=== PATIENT | female | born 1950 | race Caucasian/White ===

== ENCOUNTER 2020-03-21 07:51 | Outpatient (REF) | payer MEDICARE, BC, SELFPAY ==
--- NOTE | 2020-03-21 | MM_ITS ---
EXAMINATION: MM SCREENING DIGITAL BREAST TOMOSYNTHESIS, BILATERAL CLINICAL INFORMATION: Screening. Asymptomatic. The lifetime risk of breast cancer based on the Tyrer-Cuzick Model is 3%. COMPARISON: Mammography: 07/25/2018, 02/04/2017, 02/25/2015 TECHNIQUE: Digital breast tomosynthesis is performed in both the craniocaudal and mediolateral oblique views along with computer-aided detection (CAD). Synthesized 2D images are generated from the tomosynthesis. FINDINGS: The breasts are heterogeneously dense, which may obscure small masses (ACR BI-RADS breast composition Category c). There are no significant masses, abnormal calcifications, or other abnormalities. The axilla and skin contours are unremarkable. IMPRESSION: No mammographic evidence of malignancy. ASSESSMENT: BI-RADS 1: Negative RECOMMENDATION: Routine annual mammography screening. This patient's information was entered into a reminder system with a target due date for their next mammogram.
== END 2020-03-21 07:52 | disposition home or self-care (01) ==
LOC: HO.MAMMO 07:51
PROVIDERS: PCP Internal Medicine; Visit Provider Internal Medicine
DX: Z12.31 Encounter for screening mammogram for malignant neoplasm of breast (principal)
CPT/HCPCS: 77063; 77067; 78014

== ENCOUNTER 2020-08-23 23:03 | Emergency (ER) | payer MEDICARE, BC, SELFPAY ==
[2020-08-23 23:06] VITALS: BP 196/92; PULSE 70; RESP 16; TEMP 36.4; O2SAT 96; BMI 23.6
--- NOTE | 2020-08-23 23:36 | ED_ITS ---
HPI - General Adult General Chief complaint: General Medical Stated complaint: Hypertension Time Seen by Provider: 08/23/20 23:36 Source: patient Mode of arrival: ambulatory Limitations: no limitations History of Present Illness HPI narrative: Patient's history of MS on Ocrevus infusion every 6 weeks which she been doing this for last 2 1/2 years today when we any came to give her Ocrevus infusion premedicated with methylprednisone 100 mg as usual noticed her blood pressure 200/100 recheck multiple times dropped to 190/96. Patient never had high blood pressure like this before patient denied any other symptoms patient feels fine otherwise no headache no nausea no vomiting no chest pain no palpitations on arrival patient's blood pressure was 196/92 repeat blood pressure was 131/68 patient remained asymptomatic in the ER Related Data Allergies Allergy/AdvReac Type Severity Reaction Status Date / Time codeine [CODEINE] Allergy Unknown HIVES Unverified 03/03/20 15:20 codeine Allergy Unknown Uncoded 06/22/19 00:00 Review of Systems Review of Systems: Constitutional : No Weight loss, No Fever, No Chills ENT/Mouth : No sore throat, No Rhinorrhea Eyes: No Eye Pain, No Swelling Cardiovascular : No Chest Pain, no palpitations Respiratory : No Cough, No Sputum, no shortness of breath Gastrointestinal : no Nausea, No Vomiting, No Diarrhea, No abdominal Pain, no black stools Genitourinary : No Dysuria, No Urinary Frequency Musculoskeletal : No joint pain, No Myalgias, No Joint Swelling Skin : No Skin Lesions, No rash Neuro : No Weakness, No Numbness, No Dizziness, No Headache Psych : No Anxiety/Panic, No Depression Heme/Lymph: No Bruising, No Lymphadenopathy Endocrine : No Polyuria, No Polydipsia All other systems reviewed and are negative [facility] Past Medical History Medical History COPD (chronic obstructive pulmonary disease) GERD (gastroesophageal reflux disease) High cholesterol HTN (hypertension) Immune disorder Multiple sclerosis Surgical History History of heart artery stent Social History Social History Alcohol intake: never Smoking Status: Current every day smoker Smoked in Last 30 Days: Yes Use of substances other than those prescribed or required for medical reasons: No Advance Directives: No Advance Directives Information Provided: No Physical Exam Vital Signs: Vital Signs: Last Vital Signs Temp 98.4 F 08/24/20 00:54 Pulse 60 08/24/20 00:54 Resp 18 08/24/20 00:54 BP 160/52 H 08/24/20 00:54 Pulse Ox 96 08/24/20 00:54 Body Mass Index 23.6 Appearance: Alert. Oriented X3. No acute distress. Eyes: Pupils equal, round and reactive to light. ENT: Pharynx normal. Neck: Normal inspection. Neck supple. CVS: Normal heart rate and rhythm. Pulses normal. Respiratory: No respiratory distress. Breath sounds normal. Abdomen: Soft and nontender. Bowel sounds are present, no mass palpable, no CVA tenderness Skin: Skin warm and dry. Normal skin color. Normal skin turgor. Extremities: No lower extremity edema. No calf tenderness Neuro: Oriented X 3. No motor deficit. No sensory deficit. Medical Decision Making MDM Narrative Medical decision making narrative: Patient with transient hypertension at home in ER patient blood pressure was elevated when she came and after half an hour blood pressure dropped to 131/68 EKG was normal without any LVH findings patient has been taking NSAID for last few days for pain will check her kidney functions and follow-up Patient blood pressure stayed stable in the ER slightly elevated blood pressure on the right side as compared the left side kidney functions normal patient advised to follow-up with primary care doctor Lab Data Result diagrams: 08/23/20 23:49 08/23/20 23:49 Labs: Lab Results 08/23/20 08/23/20 Range/Units 23:49 23:49 WBC 10.1 (4.8-10.8) X10*3/uL RBC 4.44 (4.20-5.50) X10*6/uL Hgb 14.3 (12.0-16.0) g/dl Hct 41.9 (37-47) % MCV 94.4 (80-98) fL MCH 32.2 (27.0-33.0) pg MCHC 34.1 (31.0-35.0) g/dl RDW 12.4 (11.0-16.0) % Plt Count 277 (160-400) X10*3/uL MPV 9.8 (9.4-12.3) fL Immature Gran % (Auto) 0.3 (0.0-0.4) % Neut % (Auto) 73.5 H (45-73) % Lymph % (Auto) 18.8 L (20-40) % Sebastian % (Auto) 5.9 (2-11) % Eos % (Auto) 1.1 (0-4) % Baso % (Auto) 0.4 (0-2) % Lymph # (Auto) 1.9 (1.2-4.9) X10*3/uL Sebastian # (Auto) 0.6 (0.1-1.2) X10*3/uL Eos # (Auto) 0.1 (0.0-0.4) X10*3/uL Baso # (Auto) 0.0 (0.0-0.2) X10*3/uL Abs Immat Gran (auto) 0.03 (0.00-0.03) X10*3/uL Absolute Neuts (auto) 7.4 (2.0-8.3) X10*3/uL Absolute Nucleated RBC 0.000 (0.0-0.012) X10*3/uL Nucleated RBC % (auto) 0.0 (0.0-0.2) /100WBC Sodium 139 (135-145) mmol/L Potassium 3.2 L (3.3-5.1) mmol/L Chloride 101 (96-108) mmol/L Carbon Dioxide 27 (22-29) mmol/L Anion Gap 14 (12-20) BUN 9 (9-16) mg/dL Creatinine 0.73 (0.5-1.4) mg/dL Estim Creat Clear Calc 55.6 Estimated GFR > 60 Random Glucose 116 H (60-115) mg/dL Calcium 8.9 (8.4-10.2) mg/dL ECG Data Attestation: I personally reviewed and interpreted this ECG as follows: Interpretation: Normal sinus rhythm heart rate 65 beats per minute normal intervals normal axis no acute ischemic changes impression normal EKG Discharge Plan Discharge Clinical Impression: White coat syndrome with high blood pressure but without hypertension Patient Disposition: Home, Self-Care Instructions: Hypertension (ED) Additional Instructions: You had transient hypertension likely secondary to stress/white coat hypertension yet repeated blood pressure was normal. Follow with primary care doctor. Check blood pressure daily which should be less than 140/90
[2020-08-23 23:42] VITALS: BP 148/68; PULSE 65; RESP 18; TEMP 36.8; O2SAT 96
[2020-08-23 23:43] VITALS: BP 171/72
--- NOTE | 2020-08-23 23:44 | ECG_ITS ---
Test Reason : HTN Blood Pressure : / mmHG Vent. Rate : 065 BPM Atrial Rate : 065 BPM P-R Int : 156 ms QRS Dur : 090 ms QT Int : 448 ms P-R-T Axes : 068 -24 049 degrees QTc Int : 465 ms Normal sinus rhythm Normal ECG When compared with ECG of 01-JAN-2019 07:54, Vent. rate has decreased BY 35 BPM Referred By: Abilio Curry Electronically Signed By:Gilbert Lovelace
[2020-08-23 23:45] VITALS: BP 131/68
[2020-08-23 23:54] LABS: Basophils Percent Auto 0.4 % (0-2); Eosinophils Absolute Auto 0.1 X10*3/uL (0.0-0.4); Eosinophils Percent Auto 1.1 % (0-4); Hematocrit 41.9 % (37-47); Hemoglobin 14.3 g/dl (12.0-16.0); Imm Gran Abs Auto 0.03 X10*3/uL (0.00-0.03); Imm Gran Pct Auto 0.3 % (0.0-0.4); Lymphocytes Absolute Auto 1.9 X10*3/uL (1.2-4.9); Lymphocytes Percent Auto 18.8 % (20-40); MANUAL DIFF FLAG NO; Mean Corpuscular HGB Conc 34.1 g/dl (31.0-35.0); Mean Corpuscular Hemoglobin 32.2 pg (27.0-33.0); Mean Corpuscular Volume 94.4 fL (80-98); Mean Platelet Volume 9.8 fL (9.4-12.3); Monocytes Absolute Auto 0.6 X10*3/uL (0.1-1.2); Monocytes Percent Auto 5.9 % (2-11); Neutrophils Absolute Auto 7.4 X10*3/uL (2.0-8.3); Neutrophils Percent Auto 73.5 % (45-73); Platelet Count 277 X10*3/uL (160-400); Red Blood Count 4.44 X10*6/uL (4.20-5.50); Red Cell Distribution Width 12.4 % (11.0-16.0); White Blood Count 10.1 X10*3/uL (4.8-10.8)
[2020-08-24 00:36] LABS: Anion Gap 14 (12-20); Blood Urea Nitrogen 9 mg/dL (9-16); Calcium 8.9 mg/dL (8.4-10.2); Carbon Dioxide 27 mmol/L (22-29); Chloride 101 mmol/L (96-108); Creatinine Clr Calc Pharmacy 55.6; Estimated Glomerular Filt Rate > 60; Glucose Random 116 mg/dL (60-115); Potassium 3.2 mmol/L (3.3-5.1); Sodium 139 mmol/L (135-145)
[2020-08-24 00:54] VITALS: BP 133/66; BP 160/52; PULSE 60; RESP 18; TEMP 36.9; O2SAT 96
== END 2020-08-24 01:00 | disposition home or self-care (01) ==
PROVIDERS: Emergency Provider Internal Medicine
DX: R03.0 Elevated blood-pressure reading, without diagnosis of hypertension (principal); D81.9 Combined immunodeficiency, unspecified; Z79.899 Other long term (current) drug therapy; F17.200 Nicotine dependence, unspecified, uncomplicated; Z71.6 Tobacco abuse counseling
CPT/HCPCS: 36415; 80048; 85025; 93005; 99283; 99284

== ENCOUNTER 2020-08-27 19:43 | Emergency (ER) | payer MEDICARE, BC, SELFPAY ==
--- NOTE | ~2020-08-27 | XR_ITS ---
EXAMINATION: XR HIP, LEFT CLINICAL INFORMATION: Fall. Concern for pubic rami fracture. COMPARISON: CT abdomen pelvis 04/04/2019 TECHNIQUE: Two views of the left hip. Frontal view of pelvis FINDINGS: Bones and soft tissues are normal. No fracture. Alignment is anatomic. Hip joint space is maintained. Status post fusion lower lumbar spine. XR/XR hip LT w PEL1V IMPRESSION: No acute abnormality of the pelvis or hips. There is no fracture.
--- NOTE | ~2020-08-27 | XR_ITS ---
EXAMINATION: XR KNEE, LEFT CLINICAL INFORMATION: Left knee pain status post fall COMPARISON: None TECHNIQUE: AP and lateral views of the left knee. FINDINGS: Probable small joint effusion. No significant joint space narrowing. There is meniscal chondrocalcinosis. Enthesopathy of the patella. No acute abnormality is evident. XR/XR knee LT 2V IMPRESSION: Degenerative findings as described with a small effusion. No acute osseous abnormality.
[2020-08-27 19:52] VITALS: BP 138/86; BP 157/92; PULSE 109; PULSE 110; RESP 16; TEMP 37.2; O2SAT 94; O2SAT 95; BMI 23.8
[2020-08-27 20:00] VITALS: BP 148/92; PULSE 103; RESP 16; TEMP 37.2; O2SAT 96
--- NOTE | 2020-08-27 20:22 | ED.FALL ---
HPI - Fall General Chief Complaint: Fall Stated Complaint: HIP PAIN S/P FALL X 4 DAYS AGO Time Seen by Provider: 08/27/20 20:22 Source: patient Mode of arrival: EMS Limitations: no limitations History of Present Illness HPI Narrative: Patient had a mechanical fall about 4 days ago as she lost her balance and fell on the left side since then complaining of pain in the left hip which got worse today. Patient denies any head injury no loss of consciousness has history of chronic back pain MD complaint: fall Onset (ago): day(s) Fall from: standing Fall witnessed: no Place fall occurred: home Loss of consciousness: none Related Data Allergies Allergy/AdvReac Type Severity Reaction Status Date / Time codeine [CODEINE] Allergy Unknown HIVES Verified 08/27/20 19:52 codeine Allergy Unknown Hives Uncoded 08/27/20 19:52 Review of Systems Review of Systems: Constitutional : No Weight loss, No Fever, No Chills ENT/Mouth : No sore throat, No Rhinorrhea Eyes: No Eye Pain, No Swelling Cardiovascular : No Chest Pain, no palpitations Respiratory : No Cough, No Sputum, no shortness of breath Gastrointestinal : no Nausea, No Vomiting, No Diarrhea, No abdominal Pain, no black stools Genitourinary : No Dysuria, No Urinary Frequency Musculoskeletal : L hip pain +, No Myalgias, No Joint Swelling Skin : No Skin Lesions, No rash Neuro : No Weakness, No Numbness, No Dizziness, No Headache Psych : No Anxiety/Panic, No Depression Heme/Lymph: No Bruising, No Lymphadenopathy Endocrine : No Polyuria, No Polydipsia All other systems reviewed and are negative [facility] Past Medical History Medical History (Updated 08/27/20 @ 22:28 by Abilio Curry MD) Chronic back pain COPD (chronic obstructive pulmonary disease) GERD (gastroesophageal reflux disease) High cholesterol HTN (hypertension) Immune disorder Multiple sclerosis Surgical History History of heart artery stent Social History Social History Alcohol intake: never Smoking Status: Current every day smoker Advance Directives: No Physical Exam Vital Signs: Vital Signs: Last Vital Signs Temp 98.9 F 08/27/20 20:00 Pulse 103 H 08/27/20 20:00 Resp 16 08/27/20 20:00 BP 148/92 H 08/27/20 20:00 Pulse Ox 96 08/27/20 20:00 Body Mass Index 23.8 Appearance: Alert. Oriented X3. No acute distress. Eyes: Pupils equal, round and reactive to light. ENT: Pharynx normal. Neck: Normal inspection. Neck supple. CVS: Normal heart rate and rhythm. Pulses normal. Respiratory: No respiratory distress. Breath sounds normal. Abdomen: Soft and nontender. Bowel sounds are present, no mass palpable, no CVA tenderness Skin: Skin warm and dry. Normal skin color. Normal skin turgor. Extremities: No lower extremity edema. Diffuse muscular pain left greater trochanteric area and left quadriceps muscle no bony deformity knee joint is normal with good range of movement patient able to ambulate with slight pain Neuro: Oriented X 3. No motor deficit. No sensory deficit. MDM - Fall MDM Narrative Medical decision making narrative: Patient with mechanical fall with muscular pain x-ray negative for any fracture patient already on pain management oxycodone 10 mg for chronic back pain advised patient to follow-up with PCP and continue pain medication occasion along with ice pack patient ambulate in the ER with slight limping Discharge Plan Discharge Clinical Impression: Muscle strain of left lower leg Qualifiers: Encounter type: initial encounter Qualified Code(s): S86.912A - Strain of unspecified muscle(s) and tendon(s) at lower leg level, left leg, initial encounter Patient Disposition: Home, Self-Care Instructions: Musculoskeletal Pain (ED) Additional Instructions: Take pain medication as prescribed by your PCP Apply ice
--- NOTE | 2020-08-27 20:28 | PC.NURSE ---
PT ASSISTED ONTO MD JEREMI AT BEDSIDE FOR EVALUATION. PT OFF UNIT TO RADIOLOGY. PT REPORTS SHE HAS NOT BEEN ABLE TO PUT WEIGHT ON LEFT LOWER EXTREMITY TODAY. PAIN PROGRESSED OVER PAST 4 DAYS. TENDERNESS UPON PALPATION TO LEFT KNEE AND HIP. INCREASED PAIN WHEN LEFT LOWER EXTREMITY RAISED. EQUAL TEMPERATURE AND SENSATION TO BILATERAL LOWER EXTREMITIES.
--- NOTE | 2020-08-27 21:54 | PC.NURSE ---
PT AMBULATORY WITH ASSIST OF WALKER, NOT ABLE TO FULLY BEAR WEIGHT ON LEFT LOWER EXTREMITY DUE TO PAIN. PT'S PAIN GREATEST IN LEFT POSTERIOR KNEE.
[2020-08-27] MEDS: traMADoL HCL 50 MG TABLET PO (23:19)
[2020-08-27 23:20] VITALS: BP 141/86; PULSE 100; RESP 18; O2SAT 95
--- NOTE | 2020-08-27 23:57 | PC.NURSE ---
PT CALLING FOR RIDE. ASSISTED WITH GETTING DRESSED. ASSISTED TO BATHROOM IN WHEEL CHAIR.
--- NOTE | 2020-08-28 01:00 | PC.NURSE ---
PT ASSISTED TO CAR, HERE TO BRING HER HOME.
== END 2020-08-28 01:04 | disposition home or self-care (01) ==
PROVIDERS: Emergency Provider Internal Medicine; PCP Physician Assistant
DX: S76.012A Strain of muscle, fascia and tendon of left hip, initial encounter (principal); W01.0XXA Fall on same level from slipping, tripping and stumbling without subsequent striking against object, initial encounter; I10 Essential (primary) hypertension; G35 Multiple sclerosis; F17.200 Nicotine dependence, unspecified, uncomplicated; G89.29 Other chronic pain; Z79.891 Long term (current) use of opiate analgesic; Y93.9 Activity, unspecified; Y92.019 Unspecified place in single-family (private) house as the place of occurrence of the external cause; Y99.9 Unspecified external cause status
CPT/HCPCS: 73502; 73560; 99283

== ENCOUNTER 2022-04-26 15:16 | Outpatient (REF) | payer MEDICARE, BC, SELFPAY ==
--- NOTE | ~2022-04-26 | MM_ITS ---
EXAMINATION: BONE DENSITOMETRY CLINICAL INDICATION: Osteoporosis. COMPARISON: Previous BD dated 07/25/2018 and baseline BD dated 02/04/2007. TECHNIQUE: Using a [employer] DXA System (software version: 13.1) manufactured by [employer], dual-energy x-ray absorptiometry was performed of the lumbar spine and left hip. The images are of good technical quality. Summary results are attached. FINDINGS: AP SPINE L1-L2 (excluding L3 and L4): The data of L1-L4 has been changed to exclude the L3 and L4 vertebral bodies, because metallic artifact at these levels may cause overestimation of lumbar spine density. Current: BMD 0.970 g/cm2, Z-score 0.3, T-score -1.6, osteopenia, 14.5% increase from previous, 12.4% increase from baseline (<5% change is not significant). Prior: BMD 0.847 g/cm2. Baseline: BMD 0.863 g/cm2. LEFT FEMUR, NECK: Current: BMD 0.654 g/cm2, Z-score -0.9, T-score -2.8, osteoporosis. Prior: BMD 0.649 g/cm2. Baseline: BMD 0.659 g/cm2. LEFT FEMUR, TOTAL: Current: BMD 0.692 g/cm2, Z-score -0.9, T-score -2.5, osteoporosis, 6.6% increase from previous, 6.1% decrease from baseline (<5% change is not significant). Prior: BMD 0.649 g/cm2. Baseline: BMD 0.737 g/cm2. IDENTIFIED RISK FACTORS: Early menopause, hysterectomy, bilateral oophorectomy, osteoporosis, secondary osteoporosis, tobacco use (current smoker). HISTORY OF FRACTURE: None listed. MEDICATIONS: Calcium, vitamin D. MM/XR DEXA axial skeleton IMPRESSION: 1. DIAGNOSIS: Osteoporosis based on the lowest T-score value of -2.8 in the femoral neck applying World Health Organization criteria. 2. 10-YEAR FRACTURE RISK PREDICTION, FRAX: According to the guidelines, FRAX calculation should only be performed on patients in the osteopenia bone density category. Therefore, FRAX was not performed on this patient. 3. Treatment Recommendations: NOF guidelines recommend consideration for treatment in postmenopausal women and men age 50 and older presenting with the following: -A hip or vertebral (clinical or morphometric) fracture. -T-score less than or equal to -2.5 at the femoral neck or spine after appropriate evaluation to exclude secondary causes. -Low bone mass at the hip or spine and a 10-year fracture probability by FRAX of greater than or equal to 3% for hip fracture or greater than or equal to 20% for major osteoporotic fracture based on the [place] adapted WHO algorithm. 4. Other Recommendations: All treatment decisions require clinical judgment and consideration of individual patient factors, including patient preferences, comorbidities, previous drug use, risk factors not captured in the FRAX model (e.g. frailty, falls, vitamin D deficiency, increased bone turnover, interval significant decline in bone density) and possible under or overestimation of fracture risk by FRAX. Additional medical evaluation for secondary cause of low bone mineral density may be appropriate. FUTURE SCAN RECOMMENDATION: People with diagnosed cases of osteoporosis or at high risk for fracture should have regular bone mineral density tests. For patients eligible for Medicare, routine testing is allowed once every 2 years. The testing frequency can be increased to one year for patients who have rapidly progressing disease, those who are receiving or discontinuing medical therapy to restore bone mass, or have additional risk factors.
== END 2022-04-26 15:17 | disposition home or self-care (01) ==
LOC: HO.MAMMO 15:16
PROVIDERS: PCP Physician Assistant; Visit Provider Physician Assistant
DX: Z13.820 Encounter for screening for osteoporosis (principal); M81.8 Other osteoporosis without current pathological fracture; Z78.0 Asymptomatic menopausal state
CPT/HCPCS: 77080

== ENCOUNTER 2022-11-14 23:49 | Inpatient (IN) | payer MEDICARE, BC, SELFPAY ==
--- NOTE | ~2022-11-14 | XR_ITS ---
EXAMINATION: XR CHEST CLINICAL INFORMATION: Shortness of breath cough, not improving. COMPARISON: 11/15/2022 chest radiograph. TECHNIQUE: 2 views of the chest were obtained. FINDINGS: Mild blunting of the left costophrenic sulcus. Mild linear markings are seen at the left lung base. The right lung is clear. The heart and mediastinal structures are unremarkable. XR/XR chest 2V IMPRESSION: Very small left pleural effusion versus pleural scarring with left basilar atelectasis/scarring.
--- NOTE | ~2022-11-14 | XR_ITS ---
EXAMINATION: XR CHEST CLINICAL INFORMATION: Dyspnea COMPARISON: 01/01/2019 TECHNIQUE: Frontal view of the chest was obtained. FINDINGS: There is increase interstitial markings throughout the lungs compared to previous. Interstitial edema would need to be considered here. No significant effusion. The cardiac silhouette is comparable. The hilar regions are comparable. XR/XR chest 1V IMPRESSION: Some increase interstitial markings as described. Interstitial pulmonary edema would need to be considered. Differential would include infiltrate. Follow-up recommended
[2022-11-14 23:51] VITALS: BP 198/80; BP 219/99; PULSE 120; PULSE 124; RESP 24; TEMP 37.4; O2SAT 98; O2SAT 99; BMI 22.8
[2022-11-15] VITALS (15 sets, daily range): BP systolic 131–187; BP diastolic 63–87; PULSE 77–139; RESP 16–34; TEMP 36.1–38; O2SAT 90–98; BMI 22.0; BMI 22.4
--- NOTE | 2022-11-15 | ECG_ITS ---
Test Reason : DYSPENA Blood Pressure : / mmHG Vent. Rate : 138 BPM Atrial Rate : 138 BPM P-R Int : 138 ms QRS Dur : 068 ms QT Int : 290 ms P-R-T Axes : 069 -32 078 degrees QTc Int : 439 ms Sinus tachycardia Left axis deviation Nonspecific ST abnormality Abnormal ECG When compared with ECG of 23-AUG-2020 23:49, Vent. rate has increased BY [address] now depressed in Lateral leads Referred By: Zach Veliz Electronically Signed By:PARAM CASTELAN MD
[2022-11-15] MEDS: Albuterol/Iprat 2.5/0.5MG 3 ML AMPUL.NEB INHALE ×3 (00:12→11:25)
[2022-11-15] MEDS: Albuterol Sulfate (0.083%) 2.5 MG/3 ML VIAL.NEB 7.5 MG INHALE (00:12)
--- NOTE | 2022-11-15 00:15 | PC.NURSE ---
Pt A&Ox4, reports 9/10 sharp chest pressure. Pt reports increase SOB x 1 week, worse today. Pt receiving breathing tx, RR 24, Sao2 94%, reports nonproductive cough. Lung sounds diminished, respiratory therapist at bedside, Pt placed on bedside monitor.
--- NOTE | 2022-11-15 00:23 | ED_ITS ---
HPI - General Adult General Chief complaint: Dyspnea Stated complaint: DIFF BREATH X1 WEEK W/COUGH Time Seen by Provider: 11/15/22 00:00 Source: patient, EMS, RN notes reviewed and old records reviewed Mode of arrival: EMS Limitations: other (Hard of hearing) History of Present Illness HPI narrative: 72-year-old female with past medical history significant for hypertension, COPD, on 1 L oxygen via nasal cannula at baseline presents for evaluation of shortness of breath. Patient reports worsening shortness of breath for the last week. She reports subjective fevers but when she checked her temperature she never had a fever She complains of some chest tightness, increased cough and wheezing Patient reports that she has not gotten out of bed in the last week because she was so short of breath Denies any history of congestive heart failure or current leg swelling No abdominal pain, nausea, vomiting Patient received an albuterol updraft and Solu-Medrol 125 via EMS Related Data Home Medications Medication Instructions Recorded Confirmed albuterol sulfate 90 mcg/actuation 2 puff inhalation Q4H PRN wheezing 11/15/22 11/15/22 aerosol inhaler alprazolam 0.25 mg tablet 0.25 mg PO BEDTIME PRN Anxiety 11/15/22 11/15/22 amlodipine 5 mg tablet 10 mg PO DAILY 11/15/22 11/15/22 aspirin 81 mg capsule 81 mg PO DAILY 11/15/22 11/15/22 atorvastatin 20 mg tablet 20 mg PO DAILY 11/15/22 11/15/22 buspirone 10 mg tablet 10 mg PO BID 11/15/22 11/15/22 potghepgnh-kvmuenihxtlaj-yehtxfzr 1 cap PO DAILY PRN pain 11/15/22 11/15/22 50 mg-300 mg-40 mg capsule carisoprodol 350 mg tablet 350 mg PO QID 11/15/22 11/15/22 cholecalciferol (vitamin D3) 50 100 mcg PO DAILY 11/15/22 11/15/22 mcg (2,000 unit) capsule clopidogrel 75 mg tablet 75 mg PO DAILY 11/15/22 11/15/22 duloxetine 60 mg capsule,delayed 60 mg PO DAILY 11/15/22 11/15/22 release erenumab-aooe 140 mg/mL 140 mg subcut Q28D 11/15/22 11/15/22 subcutaneous auto-injector (Aimovig Autoinjector) esomeprazole magnesium 40 mg 40 mg PO DAILY@0630 11/15/22 11/15/22 capsule,delayed release fluticasone fur. 100 mcg-umeclid 1 ea inhalation DAILY 11/15/22 11/15/22 62.5 mcg-vilant 25 mcg inhalat.powder (Trelegy Ellipta) fluticasone propionate 50 1 spray intranasal BID 11/15/22 11/15/22 mcg/actuation nasal spray,suspension hydrochlorothiazide 25 mg tablet 25 mg PO DAILY 11/15/22 11/15/22 immun glob G 10 50 ml subcut QWEEK 11/15/22 11/15/22 gram/50mL(20%)-gly-IgA over 50 mcg/mL subcutaneous suzanna (Cuvitru) levalbuterol HCl 1.25 mg/0.5 mL 1.25 mg inhalation TID PRN 11/15/22 11/15/22 solution for nebulization Shortness Of Breath Or Wheezing metoprolol tartrate 25 mg tablet 25 mg PO BID 11/15/22 11/15/22 nitroglycerin 0.4 mg sublingual 0.4 mg sublingual Q5M PRN Chest 11/15/22 11/15/22 tablet Pain ocrelizumab 30 mg/mL intravenous 600 mg IV [id number] 11/15/22 11/15/22 solution oxycodone-acetaminophen 10 mg-325 1 tab PO Q4-6H 11/15/22 11/15/22 mg tablet potassium chloride 20 mEq 20 meq PO DAILY 11/15/22 11/15/22 tablet,extended release(part/cryst) (Klor-Con M) pregabalin 150 mg capsule 150 mg PO TID 11/15/22 11/15/22 Allergies Allergy/AdvReac Type Severity Reaction Status Date / Time codeine [CODEINE] Allergy Unknown HIVES Verified 11/15/22 00:31 codeine Allergy Unknown Hives Uncoded 08/27/20 19:52 Review of Systems Constitutional: Constitutional: Reports as per HPI, Denies body ache(s), Reports chills, Reports fever(s), Denies headache(s), Reports lethargy and Reports malaise ENT: Denies headache(s) Cardiovascular: Cardiovascular: Reports chest pain, Denies pedal edema, Denies leg edema and Reports dyspnea Respiratory: Respiratory: Reports cough, Reports dyspnea and Reports wheezing Gastrointestinal: Gastrointestinal: Denies abdominal pain, Denies constipation and Denies vomiting Genitourinary: Genitourinary: Denies dysuria Neurologic: Denies headache(s) and Denies focal weakness Allergic/Immunologic: Allergic/Immunologic: Reports wheezing [facility] Past Medical History Medical History (Updated 11/15/22 @ 06:24 by Nisha Joy MD) Chronic back pain COPD (chronic obstructive pulmonary disease) GERD (gastroesophageal reflux disease) High cholesterol History of CAD (coronary artery disease) HTN (hypertension) Immune disorder Multiple sclerosis Peripheral vascular disease Surgical History (Updated 11/15/22 @ 06:24 by Nisha Joy MD) History of angioplasty History of heart artery stent Social History Social History Household Members: Spouse Housing: House Do you presently have visiting nurse or other home services: No Alcohol intake: never Patient Tobacco Use Status: Current everyday Tobacco user Tobacco use type: Cigarette Smoked in Last 30 Days: Yes Patient Interested in Nicotine Replacement: Yes Use of substances other than those prescribed or required for medical reasons: No Currently Displaying Signs/Symptoms of Drug Intoxication Withdrawal: No Have you been hit, kicked, punched, or otherwise hurt by someone within the past year? If so, by whom?: No Do you feel safe in your current relationship?: Yes Is there a partner from a previous relationship who is making you feel unsafe now?: No Are you made to feel afraid or neglected: No Advance Directives: No Advance Directives Information Provided: Yes Do you have thoughts of harming others: None Do you have a plan to hurt others: No Plan Recently lost weight without trying: Unsure Eating poorly because of decreased appetite: Yes Nutrition Risks: No Nutritional Risk Patient : No service: No Current occupational status: retired Physical Exam ED Vital Signs: Vital Signs - 24 hr 11/14/22 23:51 11/15/22 00:05 11/15/22 00:12 Temperature 99.3 F Pulse Rate 120 H 118 H Respiratory Rate 24 H 24 H 22 H Blood Pressure 219/99 H Pulse Oximetry 99 Oxygen Delivery Method Nasal Cannula Oxygen Flow Rate 11/15/22 00:55 11/15/22 01:02 11/15/22 01:43 Temperature 97.5 F 100.4 F Pulse Rate 139 H 135 H Respiratory Rate 31 H 34 H Blood Pressure 187/80 H 154/87 H 157/85 H Pulse Oximetry 93 92 Oxygen Delivery Method Nasal Cannula Nasal Cannula Oxygen Flow Rate 2 2 BMI result Body Mass Index 22.8 Const General: cooperative, alert, awake and ill appearing; No healthy appearing, comfortable or no acute distress Nutritional Appearance: thin Orientation/consciousness: patient oriented x3 HENMT Head: Yes normocephalic and Yes atraumatic Eyes Eyelids: Yes eyelids normal Conjunctivae: conjunctivae normal Sclerae: sclerae normal Corneas: corneas normal Pupils: Equal, round and reactive pupils present EOM: EOMs intact bilaterally Neck Neck: Yes full ROM Resp Effort & Inspection: not able to speak in complete sentences, audible wheezes, Actively coughing and nasal flaring Auscultation: wheezes (Diffuse expiratory wheeze in all lung joiner) Cardio Other: No lower extremity edema Rhythm: regular rhythm GI Inspection: No distended Palpation (GI): Soft to palpation, not firm, nontender, no guarding and not rigid Auscultation: normoactive bowel sounds Skin General skin exam: no rashes or lesions noted and elasticity normal Neuro General: patient oriented x3 Cranial nerves: Yes Equal, round and reactive pupils present and Yes Bilaterally intact EOM present Cognition (Neuro): normal cognition Extrem Other: Moving all extremities well without any obvious deformities Course Reevaluation(s) Reevaluation #1: Patient has hypoxic respiratory failure appears to be multifactorial. She obviously has a COPD exacerbation with her chronic history and wheezing on exam. Her chest x-ray shows interstitial edema versus pneumonia. Initially I thought that was less likely to be pneumonia even though the patient white count [id number] but then she spiked a temperature a 100.4?. Do a treat the COPD exacerbation, pneumonia and interstitial edema as her BNP is also 250. I did discuss all this with the hospitalist, Dr. Rufino maloney evaluate the patient herself and agrees with plan. Given the patient has a degree of CHF but meet sepsis criteria with a lactate of 4.5 we did give a small fluid bolus but did not give 30 per kilos Time: 01:49 Medications Administered Generic Name Dose Route Start Last Admin Trade Name Freq PRN Reason Stop Dose Admin Acetaminophen 325 mg 11/15/22 06:07 11/15/22 14:09 Acetaminophen 325 Mg Tablet PO 325 mg Q4H PRN Administration Pain, Severe (Pain Scale 7-10) Acetaminophen/Butalbital/Caffeine 1 tab 11/15/22 05:33 11/15/22 14:16 Butalb/Acetamin/Caff 50/325/40 Tablet PO 1 tab DAILY PRN Administration Headache Albuterol/Ipratropium 3 ml 11/15/22 08:00 11/15/22 11:25 Albuterol/Iprat 2.5/0.5mg 3 Ml Ampul.Neb INHALE 3 ml RQ4H WHILE AWAKE RAJNI Administration Amlodipine Besylate 10 mg 11/15/22 09:00 11/15/22 08:58 Amlodipine Besylate 10 Mg Tablet PO 10 mg DAILY RAJNI Administration Protocol Buspirone HCl 10 mg 11/15/22 09:00 11/15/22 09:00 Buspirone Hcl 10 Mg Tablet PO 10 mg BID RAJNI Administration Carisoprodol 350 mg 11/15/22 09:00 11/15/22 14:10 Carisoprodol 350 Mg Tablet PO 350 mg QID RAJNI Administration Clopidogrel Bisulfate 75 mg 11/15/22 09:00 11/15/22 08:58 Clopidogrel Bisulfate 75 Mg Tablet PO 75 mg DAILY RAJNI Administration Duloxetine HCl 60 mg 11/15/22 09:00 11/15/22 08:58 Duloxetine Hcl 60 Mg Capsule.Dr PO 60 mg DAILY RAJNI Administration Enoxaparin Sodium 40 mg 11/15/22 03:30 11/15/22 04:31 Enoxaparin Sodium 40 Mg/0.4 Ml Syringe SUBCUT 40 mg DAILY RAJNI Administration Fluticasone Propionate 1 spray 11/15/22 09:00 11/15/22 10:53 Fluticasone Propionate Nasal 16 Gm [place] NOSTRIL-B Not Given BID RAJNI Guaifenesin 10 ml 11/15/22 12:31 11/15/22 14:17 Guaifenesin 100 Mg/5 Ml Liquid PO 10 ml Q6H PRN Administration Cough Hydrochlorothiazide 25 mg 11/15/22 09:00 11/15/22 09:00 Hydrochlorothiazide 25 Mg Tablet PO 25 mg DAILY RAJNI Administration Protocol Methylprednisolone Sodium Succinate 40 mg 11/15/22 03:15 11/15/22 04:29 Methylprednisolone Sod Succ 40 Mg/Ml Vial IVPUSH 40 mg BID@0600,1800 RAJNI Administration Metoprolol Tartrate 25 mg 11/15/22 09:00 11/15/22 09:00 Metoprolol Tartrate 25 Mg Tablet PO 25 mg BID RAJNI Administration Protocol Omeprazole 20 mg 11/15/22 09:00 11/15/22 08:58 Omeprazole 20 Mg Capsule. PO 20 mg DAILY RAJNI Administration Ondansetron HCl 4 mg 11/15/22 02:33 11/15/22 10:39 Ondansetron Hcl 4 Mg/2 Ml Vial IVPUSH 4 mg Q8H PRN Administration Nausea and Vomiting Oxycodone HCl 10 mg 11/15/22 06:06 11/15/22 14:08 Oxycodone Hcl Immed Release 5 Mg Tablet PO 10 mg Q4H PRN Administration Pain, Severe (Pain Scale 7-10) Potassium Chloride 20 meq 11/15/22 10:00 11/15/22 09:00 Potassium Chloride Er 20 Meq Tab.Er.Prt PO 20 meq DAILY RAJNI Administration Pregabalin 150 mg 11/15/22 09:00 11/15/22 14:10 Pregabalin 150 Mg Capsule PO 150 mg TID RAJNI Administration Sodium Chloride 3 ml 11/15/22 08:00 11/15/22 09:19 0.9 % Sodium Chloride Flush 3 Ml Syringe IVFLUSH 3 ml QSHIFT [facility] Administration Vitamin D 100 mcg 11/15/22 09:00 11/15/22 08:58 Cholecalciferol (Vitamin D3) 25 Mcg Tablet PO 100 mcg DAILY RAJNI Administration Discontinued Medications Generic Name Dose Route Start Last Admin Trade Name Kurt PRN Reason Stop Dose Admin Albuterol Sulfate 7.5 mg 11/15/22 00:04 11/15/22 00:12 Albuterol Sulfate (0.083%) 2.5 Mg/3 Ml Vial.Neb INHALE 11/15/22 00:05 7.5 mg ONCE ONE Administration Albuterol/Ipratropium 3 ml 11/15/22 00:04 11/15/22 00:12 Albuterol/Iprat 2.5/0.5mg 3 Ml Ampul.Neb INHALE 11/15/22 00:05 3 ml ONCE ONE Administration Aspirin 324 mg 11/15/22 06:00 11/15/22 08:59 Aspirin Enteric Coated 81 Mg Tablet. PO 324 mg Q4H RAJNI Administration Cilostazol 50 mg 11/15/22 09:00 11/15/22 08:57 Cilostazol 50 Mg Tablet PO 50 mg BID RAJNI Administration Furosemide 40 mg 11/15/22 01:38 11/15/22 01:59 Furosemide 40 Mg/4 Ml Vial IVPUSH 11/15/22 01:39 40 mg STAT STA Administration Protocol Ceftriaxone Sodium 1 gm/ 50 mls @ 100 mls/hr 11/15/22 01:38 11/15/22 02:45 Sodium Chloride IV 11/15/22 02:07 Infused ONCE ONE Infusion Azithromycin 500 mg/ Sodium 250 mls @ 125 mls/hr 11/15/22 01:38 11/15/22 04:54 Chloride IV 11/15/22 03:37 Infused ONCE ONE Infusion Sodium Chloride 1,000 mls @ 999 mls/hr 11/15/22 02:15 11/15/22 04:32 Ns IV 11/15/22 03:15 Infused .Q1H1M RAJNI Infusion Potassium Chloride 10 meq in 100 mls @ 100 mls/hr 11/15/22 08:15 11/15/22 12:06 Potassium Chloride/H20 IV 11/15/22 12:14 Not Given Q1H RAJNI Magnesium Sulfate/Dextrose 1 gm in 100 mls @ 100 mls/hr 11/15/22 08:09 11/15/22 12:00 Magnesium Sulfate/D5w IV 11/15/22 09:08 Infused ONCE ONE Infusion Non-Formulary Medication 500 mcg 11/15/22 09:00 11/15/22 10:07 Roflumilast [Daliresp] PO Not Given DAILY RAJNI Potassium Chloride 40 meq 11/15/22 06:00 11/15/22 09:01 Potassium Chloride Packet 20 Meq Packet PO 11/15/22 08:01 40 meq Q2H RAJNI Administration Potassium Chloride 40 meq 11/15/22 08:09 11/15/22 10:40 Potassium Chloride Packet 20 Meq Packet PO 11/15/22 08:10 40 meq ONCE ONE Administration Medical Decision Making Medical Decision Making MDM Narrative: 72-year-old male presents for evaluation of shortness of breath and wheezing. Her oxygen saturation is 92% on her baseline 1 L. She is coarsely wheezing to her entire lung joiner on exam. She is in mild respiratory distress. She was given a 10 mg albuterol treatment with Atrovent. She was already given steroids. Will get a portable chest x-ray, labs pending including EKG. Differential Diagnosis COPD exacerbation Bronchitis Chronic obstructive pulmonary disease Chronic lung disease Hypoxia ACS less likely Pneumonia Viral syndrome Lab Data 11/15/22 00:37 11/15/22 00:37 Labs: Lab Results 11/15/22 11/15/22 11/15/22 Range/Units 00:37 00:37 00:37 WBC 19.7 H (4.8-10.8) X10*3/uL RBC 4.17 L (4.20-5.50) X10*6/uL Hgb 13.2 (12.0-16.0) g/dl Hct 38.1 (37.0-47.0) % MCV 91.4 (80.0-98.0) fL MCH 31.7 (27.0-33.0) pg MCHC 34.6 (31.0-35.0) g/dl RDW 12.9 (11.0-16.0) % Plt Count 377 (160-400) X10*3/uL MPV 9.6 (9.4-12.3) fL Immature Gran % (Auto) 0.6 H (0.0-0.4) % Neut % (Auto) 88.7 H (45-73) % Lymph % (Auto) 5.8 L (20-40) % Wright % (Auto) 4.4 (2-11) % Eos % (Auto) 0.3 (0-4) % Baso % (Auto) 0.2 (0-2) % Lymph # (Auto) 1.2 (1.2-4.9) X10*3/uL Wright # (Auto) 0.9 (0.1-1.2) X10*3/uL Eos # (Auto) 0.1 (0.0-0.4) X10*3/uL Baso # (Auto) 0.0 (0.0-0.2) X10*3/uL Abs Immat Gran (auto) 0.12 H (0.00-0.03) X10*3/uL Absolute Neuts (auto) 17.5 H (2.0-8.3) x10*3/uL Absolute Nucleated RBC 0.000 (0.0-0.012) X10*3/uL Nucleated RBC % (auto) 0.0 (0.0-0.2) /100WBC VBG pH (7.32-7.43) VBG pCO2 mmHg VBG pO2 mmHg VBG HCO3 (22-26) mmol/L VBG O2 Saturation % VBG Base Excess mmol/L Sodium 145 (135-145) mmol/L Potassium 3.1 L (3.3-5.1) mmol/L Chloride 95 L (96-108) mmol/L Carbon Dioxide 34 H (22-29) mmol/L Anion Gap 19 (12-20) BUN 9 (9-16) mg/dL Creatinine 0.75 (0.5-1.4) mg/dL Estim Creat Clear Calc 56.9 Estimated GFR > 60 Random Glucose 191 H (60-115) mg/dL Lactic Acid (0.5-2.0) mmol/L Calcium 9.6 D (8.4-10.2) mg/dL Total Bilirubin 0.4 (0.0-1.0) mg/dL AST 104 H (5-31) U/L ALT 117 H (0-31) U/L Alkaline Phosphatase 268 H (39-117) U/L Troponin I High Sens 19.9 H (<3.5-17.0) ng/L B-Natriuretic Peptide (<100) pg/mL Total Protein 6.5 (6.5-8.0) g/dL Albumin 3.7 (3.5-5.0) g/dL Influenza Type A (ELVIS) (Negative) Influenza Type B (ELVIS) (Negative) Influenza A & B Note 11/15/22 11/15/22 11/15/22 Range/Units 00:37 00:37 01:36 WBC (4.8-10.8) X10*3/uL RBC (4.20-5.50) X10*6/uL Hgb (12.0-16.0) g/dl Hct (37.0-47.0) % MCV (80.0-98.0) fL MCH (27.0-33.0) pg MCHC (31.0-35.0) g/dl RDW (11.0-16.0) % Plt Count (160-400) X10*3/uL MPV (9.4-12.3) fL Immature Gran % (Auto) (0.0-0.4) % Neut % (Auto) (45-73) % Lymph % (Auto) (20-40) % Wright % (Auto) (2-11) % Eos % (Auto) (0-4) % Baso % (Auto) (0-2) % Lymph # (Auto) (1.2-4.9) X10*3/uL Wright # (Auto) (0.1-1.2) X10*3/uL Eos # (Auto) (0.0-0.4) X10*3/uL Baso # (Auto) (0.0-0.2) X10*3/uL Abs Immat Gran (auto) (0.00-0.03) X10*3/uL Absolute Neuts (auto) (2.0-8.3) x10*3/uL Absolute Nucleated RBC (0.0-0.012) X10*3/uL Nucleated RBC % (auto) (0.0-0.2) /100WBC VBG pH (7.32-7.43) VBG pCO2 mmHg VBG pO2 mmHg VBG HCO3 (22-26) mmol/L VBG O2 Saturation % VBG Base Excess mmol/L Sodium (135-145) mmol/L Potassium (3.3-5.1) mmol/L Chloride (96-108) mmol/L Carbon Dioxide (22-29) mmol/L Anion Gap (12-20) BUN (9-16) mg/dL Creatinine (0.5-1.4) mg/dL Estim Creat Clear Calc Estimated GFR Random Glucose (60-115) mg/dL Lactic Acid 4.5 H* (0.5-2.0) mmol/L Calcium (8.4-10.2) mg/dL Total Bilirubin (0.0-1.0) mg/dL AST (5-31) U/L ALT (0-31) U/L Alkaline Phosphatase (39-117) U/L Troponin I High Sens (<3.5-17.0) ng/L B-Natriuretic Peptide 252 H (<100) pg/mL Total Protein (6.5-8.0) g/dL Albumin (3.5-5.0) g/dL Influenza Type A (ELVIS) Negative (Negative) Influenza Type B (ELVIS) Negative (Negative) Influenza A & B Note See Note 11/15/22 Range/Units 01:40 WBC (4.8-10.8) X10*3/uL RBC (4.20-5.50) X10*6/uL Hgb (12.0-16.0) g/dl Hct (37.0-47.0) % MCV (80.0-98.0) fL MCH (27.0-33.0) pg MCHC (31.0-35.0) g/dl RDW (11.0-16.0) % Plt Count (160-400) X10*3/uL MPV (9.4-12.3) fL Immature Gran % (Auto) (0.0-0.4) % Neut % (Auto) (45-73) % Lymph % (Auto) (20-40) % Wright % (Auto) (2-11) % Eos % (Auto) (0-4) % Baso % (Auto) (0-2) % Lymph # (Auto) (1.2-4.9) X10*3/uL Wright # (Auto) (0.1-1.2) X10*3/uL Eos # (Auto) (0.0-0.4) X10*3/uL Baso # (Auto) (0.0-0.2) X10*3/uL Abs Immat Gran (auto) (0.00-0.03) X10*3/uL Absolute Neuts (auto) (2.0-8.3) x10*3/uL Absolute Nucleated RBC (0.0-0.012) X10*3/uL Nucleated RBC % (auto) (0.0-0.2) /100WBC VBG pH 7.54 H (7.32-7.43) VBG pCO2 38 mmHg VBG pO2 46 mmHg VBG HCO3 33 H (22-26) mmol/L VBG O2 Saturation 78.0 % VBG Base Excess 9.9 mmol/L Sodium (135-145) mmol/L Potassium (3.3-5.1) mmol/L Chloride (96-108) mmol/L Carbon Dioxide (22-29) mmol/L Anion Gap (12-20) BUN (9-16) mg/dL Creatinine (0.5-1.4) mg/dL Estim Creat Clear Calc Estimated GFR Random Glucose (60-115) mg/dL Lactic Acid (0.5-2.0) mmol/L Calcium (8.4-10.2) mg/dL Total Bilirubin (0.0-1.0) mg/dL AST (5-31) U/L ALT (0-31) U/L Alkaline Phosphatase (39-117) U/L Troponin I High Sens (<3.5-17.0) ng/L B-Natriuretic Peptide (<100) pg/mL Total Protein (6.5-8.0) g/dL Albumin (3.5-5.0) g/dL Influenza Type A (ELVIS) (Negative) Influenza Type B (ELVIS) (Negative) Influenza A & B Note Discharge Plan Discharge Clinical Impression: Acute and chronic respiratory failure Patient Disposition: Admitted As Inpatient Discharge Date/Time: 11/15/22 03:46 Sepsis Bolus Exclusion Sepsis Bolus Exclusion CHF/Renal Failure This patient met severe sepsis criteria due to the following condition(s):: Lactate>=4mmol/L In my clinical judgement the administration of 30 ml/kg of crystalloid would be detrimental to this patient due to the patient's following conditions:: NYHA class III or IV Heart Failure(symptoms with low exertion or rest) and Concern for fluid overload Replace the 30 mls/kg with (*zero amount not acceptable): Crystalloids amount given in mls: (rate must be at least 150cc/hr): 1,000 Colloids amount given in mls:: 0
[2022-11-15 00:41] LABS: Basophils Percent Auto 0.2 % (0-2); Eosinophils Absolute Auto 0.1 X10*3/uL (0.0-0.4); Eosinophils Percent Auto 0.3 % (0-4); Hematocrit 38.1 % (37.0-47.0); Hemoglobin 13.2 g/dl (12.0-16.0); Imm Gran Abs Auto 0.12 X10*3/uL (0.00-0.03); Imm Gran Pct Auto 0.6 % (0.0-0.4); Lymphocytes Absolute Auto 1.2 X10*3/uL (1.2-4.9); Lymphocytes Percent Auto 5.8 % (20-40); MANUAL DIFF FLAG NO; Mean Corpuscular HGB Conc 34.6 g/dl (31.0-35.0); Mean Corpuscular Hemoglobin 31.7 pg (27.0-33.0); Mean Corpuscular Volume 91.4 fL (80.0-98.0); Mean Platelet Volume 9.6 fL (9.4-12.3); Monocytes Absolute Auto 0.9 X10*3/uL (0.1-1.2); Monocytes Percent Auto 4.4 % (2-11); Neutrophils Absolute Auto 17.5 x10*3/uL (2.0-8.3); Neutrophils Percent Auto 88.7 % (45-73); Platelet Count 377 X10*3/uL (160-400); Red Blood Count 4.17 X10*6/uL (4.20-5.50); Red Cell Distribution Width 12.9 % (11.0-16.0); White Blood Count 19.7 X10*3/uL (4.8-10.8)
[2022-11-15 00:58] LABS: IDNOW Serial# 08D9AD1C; Influenza A Negative (Negative); Influenza B2 Negative (Negative)
--- NOTE | 2022-11-15 00:58 | MHC.EDTECH ---
PATIENT EKG DONE ,AND WAS READ BY PROVIDER ,BLOOD DRAWN AND FLU SWAB COLLECTED AND SENT TO LAB ,VITALS SIGN TAKEN ,ANUSHA CASTRO IS AWARE OF PT HIGH RESP ,HHR AND HBP .
[2022-11-15 01:05] LABS: Alanine Aminotransferase 117 U/L (0-31); Albumin Level 3.7 g/dL (3.5-5.0); Alkaline Phosphatase 268 U/L (39-117); Anion Gap 19 (12-20); Aspartate Amino Transferase 104 U/L (5-31); Bilirubin Total 0.4 mg/dL (0.0-1.0); Blood Urea Nitrogen 9 mg/dL (9-16); Calcium 9.6 mg/dL (8.4-10.2); Carbon Dioxide 34 mmol/L (22-29); Chloride 95 mmol/L (96-108); Creatinine Clr Calc Pharmacy 56.9; Estimated Glomerular Filt Rate > 60; Glucose Random 191 mg/dL (60-115); Potassium 3.1 mmol/L (3.3-5.1); Sodium 145 mmol/L (135-145); Total Protein 6.5 g/dL (6.5-8.0); Troponin-I High Sensitivity 19.9 ng/L (<3.5-17.0)
--- NOTE | 2022-11-15 01:15 | MHC.EDTECH ---
SECOND EKG TAKEN DUE TO HIGH HEART RATE ,PROVIDER SAID IT WAS VINI FOR PATIENT TO HAVE PHILLY TITUS .
[2022-11-15 01:27] LABS: B Type Natriuretic Peptide 252 pg/mL (<100)
[2022-11-15 01:44] LABS: Venous Blood Gas Refer to POC result
--- NOTE | 2022-11-15 01:46 | MHC.EDTECH ---
BLOOD CULTURE ,LACTIC ACID AND OMID BLOOD GAS DRAWN AND SENT TO LAB .
[2022-11-15 01:49] LABS: VBG Base Excess 9.9 mmol/L; VBG HCO3 33 mmol/L (22-26); VBG pCO2 38 mmHg; VBG pH 7.54 (7.32-7.43); VBG pO2 46 mmHg
[2022-11-15] MEDS: Furosemide 40 MG/4 ML VIAL IVPUSH (01:59)
[2022-11-15 02:00] LABS: Lactic Acid 4.5 mmol/L (0.5-2.0)
[2022-11-15] MEDS: cefTRIAXone sodium 1 GM in 0.9 % Sodium Chloride 50 ML IV ×2 (02:04→21:50)
[2022-11-15] MEDS: 0.9 % Sodium Chloride 1,000 ML 999 ML IV (02:12)
--- NOTE | 2022-11-15 02:31 | MHC.EDTECH ---
PT WAS ASSISTED UNTO BEDPAN ,PT VOID LG AMOUNT OF URINE ,PT AT BEDSIDE .
--- NOTE | 2022-11-15 02:36 | P.HPHOSP_ITS ---
History of Present Illness Date of Service: 11/15/22 Chief Complaint: sob 72-year-old female past medical history of COPD, currently active smoker, GERD, HLD, HTN, chronic back pain presents to the hospital with complaints of cough, shortness of breath, increased sputum production. Patient reports her symptoms been going on for the past 1 week worsened over the past few days, she has difficulty with minimal activity due to the shortness of breath, denies any orthopnea, no PND, reports no lower extremity edema, no chest pain, no palpitations, felt febrile at home, has significant diaphoresis and chills speci ally at night, reports no abdominal pain nausea or vomiting, no diarrhea constipation, no urinary symptoms. No dizziness, no headache or change in vision. On arrival to the ED patient vitals are significant for heart rate in the 120s to 130s, respiratory rate of 24, blood pressure of 219/99 currently 180s over 80s Labs are significant for WBC count of 19.7, hemoglobin of 13.2, hematocrit 38.1, pH of 7.54, potassium of 2.3, lactic acid of 4.5 improved with IV fluids, BNP of 252, 280 in the past, no history of heart failure, influenza negative, prolactin pending Chest x-ray shows increased interstitial markings edema versus infiltrate cannot be ruled out Patient started on IV antibiotic and will be admitted for further management Review of Systems Review of Systems: Yes all other systems are reviewed and are negative [facility] Medical History (Updated 11/15/22 @ 06:24 by Nisha Joy MD) Chronic back pain COPD (chronic obstructive pulmonary disease) GERD (gastroesophageal reflux disease) High cholesterol History of CAD (coronary artery disease) HTN (hypertension) Immune disorder Multiple sclerosis Peripheral vascular disease Surgical History (Updated 11/15/22 @ 06:24 by Nisha Joy MD) History of angioplasty History of heart artery stent Social History Household Members: Spouse Housing: House Do you presently have visiting nurse or other home services: No Alcohol intake: never Patient Tobacco Use Status: Current everyday Tobacco user Tobacco use type: Cigarette Smoked in Last 30 Days: Yes Patient Interested in Nicotine Replacement: Yes Use of substances other than those prescribed or required for medical reasons: No Currently Displaying Signs/Symptoms of Drug Intoxication Withdrawal: No Have you been hit, kicked, punched, or otherwise hurt by someone within the past year? If so, by whom?: No Do you feel safe in your current relationship?: Yes Is there a partner from a previous relationship who is making you feel unsafe now?: No Are you made to feel afraid or neglected: No Advance Directives: No Advance Directives Information Provided: Yes Do you have thoughts of harming others: None Do you have a plan to hurt others: No Plan Recently lost weight without trying: Unsure Eating poorly because of decreased appetite: Yes Nutrition Risks: No Nutritional Risk Patient : No Meds Allergies Allergy/AdvReac Type Severity Reaction Status Date / Time codeine [CODEINE] Allergy Unknown HIVES Verified 11/15/22 00:31 codeine Allergy Unknown Hives Uncoded 08/27/20 19:52 Active Medications: Current Medications Azithromycin 500 mg/ Sodium (Chloride) 250 mls @ 125 mls/hr IV ONCE ONE Stop: 11/15/22 03:37 Sodium Chloride (Ns) 1,000 mls @ 999 mls/hr IV .Q1H1M RAJNI Stop: 11/15/22 03:15 Last Admin: 11/15/22 02:12 Dose: 999 mls/hr Home Medications Medication Instructions Recorded Confirmed Last Taken Type albuterol sulfate 90 mcg/actuation 2 puff inhalation Q4H PRN wheezing 11/15/22 11/15/22 Unknown History aerosol inhaler alprazolam 0.25 mg tablet 0.25 mg PO BEDTIME PRN Anxiety 11/15/22 11/15/22 Unknown History amlodipine 5 mg tablet 10 mg PO DAILY 11/15/22 11/15/22 Unknown History aspirin 81 mg capsule 324 mg PO Q4H 11/15/22 11/15/22 Unknown History atorvastatin 20 mg tablet 20 mg PO DAILY 11/15/22 11/15/22 Unknown History buspirone 10 mg tablet 10 mg PO BID 11/15/22 11/15/22 Unknown History xhobzbsmwc-exxdstrmfrnjn-wyeakbec 1 cap PO DAILY PRN pain 11/15/22 11/15/22 U nknown History 50 mg-300 mg-40 mg capsule carisoprodol 350 mg tablet 350 mg PO QID 11/15/22 11/15/22 Unknown History cholecalciferol (vitamin D3) 25 50 mcg PO DAILY 11/15/22 11/15/22 Unknown History mcg (1,000 unit) capsule (Vitamin D3) cholecalciferol (vitamin D3) 50 100 mcg PO DAILY 11/15/22 11/15/22 Unknown History mcg (2,000 unit) capsule cilostazol 50 mg tablet 50 mg PO BID 11/15/22 11/15/22 Unknown History clopidogrel 75 mg tablet 75 mg PO DAILY 11/15/22 11/15/22 Unknown History diclofenac potassium 50 mg tablet mg 11/15/22 Unknown History doxycycline hyclate 100 mg capsule mg PO 11/15/22 Unknown History duloxetine 60 mg capsule,delayed 60 mg PO DAILY 11/15/22 11/15/22 Unknown History release erenumab-aooe 140 mg/mL mg subcut 11/15/22 Unknown History subcutaneous auto-injector (Aimovig Autoinjector) esomeprazole magnesium 40 mg 40 mg PO DAILY 11/15/22 11/15/22 Unknown History capsule,delayed release fluticasone propionate 50 1 spray intranasal BID 11/15/22 11/15/22 Unknown History mcg/actuation nasal spray,suspension hydrochlorothiazide 25 mg tablet 25 mg PO DAILY 11/15/22 11/15/22 Unknown History hyoscyamine 0.15 mg tablet 0.125 mg PO Q4H PRN Restless Leg(S) 11/15/22 11/15/22 Unknown History immun glob G 10 ml subcut 11/15/22 Unknown History gram/50mL(20%)-gly-IgA over 50 mcg/mL subcutaneous suzanna (Cuvitru) magnesium oxide mg 11/15/22 Unknown History metoprolol tartrate 25 mg tablet 25 mg PO BID 11/15/22 11/15/22 Unknown History mirabegron 50 mg tablet,extended mg PO 11/15/22 Unknown History release 24 hr nitroglycerin 0.4 mg sublingual mg sublingual 11/15/22 Unknown History tablet ocrelizumab 30 mg/mL intravenous 600 mg IV [id number] 11/15/22 11/15/22 Unknown History solution oxycodone-acetaminophen 10 mg-325 1 tab PO Q4-6H 11/15/22 11/15/22 Unknown History mg tablet potassium chloride 20 mEq 20 meq PO DAILY 11/15/22 11/15/22 Unknown History tablet,extended release(part/cryst) (Klor-Con M) pregabalin 150 mg capsule 150 mg PO TID 11/15/22 11/15/22 Unknown History roflumilast 500 mcg tablet 500 mcg PO DAILY 11/15/22 11/15/22 Unknown History (Daliresp) Physical Exam Vital Signs and Narrative: Vital Signs: Last Vital Signs Temp 100.4 F 11/15/22 01:43 Pulse 135 H 11/15/22 01:43 Resp 34 H 11/15/22 01:43 BP 157/85 H 11/15/22 01:43 Pulse Ox 92 11/15/22 01:43 O2 Del Method Nasal Cannula 11/15/22 01:43 O2 Flow Rate 2 11/15/22 01:43 Oxygen Flow Rate 1 11/14/22 23:51 BMI result Body Mass Index 22.8 Const: General: cooperative and no acute distress Or ientation/consciousness: patient oriented x3 Eyes: General: appearance normal, both eyes and all related structures Pup ils: Equal, round and reactive pupils present Resp: Other: Tachypneic, on 2 L of oxygen Cardio: Rate: regular rate Rhythm: regular rhythm GI: Palpation (GI): Soft to palpation Auscultation: normal bowel sounds Skin: General skin exam: no rashes or lesions noted Neuro: General: patient oriented x3 Cranial nerves: Yes Equal, round and reactive pupils present Cognition (Neuro): normal cognition Extrem: General: Yes normal to inspection and Yes no pedal edema Results Labs 11/15/22 00:37 11/15/22 00:37 Labs: Laboratory Results - last 24 hr 11/15/22 11/15/22 11/15/22 00:37 00:37 00:37 MCV 91.4 MCH 31.7 MCHC 34.6 RDW 12.9 Plt Count 377 MPV 9.6 Immature Gran % (Auto) 0.6 H Neut % (Auto) 88.7 H Lymph % (Auto) 5.8 L [place] % (Auto) 4.4 Eos % (Auto) 0.3 Baso % (Auto) 0.2 Lymph # (Auto) 1.2 [place] # (Auto) 0.9 Eos # (Auto) 0.1 Baso # (Auto) 0.0 Abs Immat Gran (auto) 0.12 H Absolute Neuts (auto) 17.5 H Absolute Nucleated RBC 0.000 Nucleated RBC % (auto) 0.0 VBG pH VBG pCO2 VBG pO2 VBG HCO3 VBG O2 Saturation VBG Base Excess Anion Gap 19 Estim Creat Clear Calc 56.9 Estimated GFR > 60 Random Glucose 191 H Lactic Acid Calcium 9.6 D Total Bilirubin 0.4 AST 104 H ALT 117 H Alkaline Phosphatase 268 H Troponin I High Sens 19.9 H B-Natriuretic Peptide Total Protein 6.5 Albumin 3.7 Influenza Type A (ELVIS) Influenza Type B (ELVIS) Influenza A & B Note 11/15/22 11/15/22 11/15/22 00:37 00:37 01:36 MCV MCH MCHC RDW Plt Count MPV Immature Gran % (Auto) Neut % (Auto) Lymph % (Auto) [place] % (Auto) Eos % (Auto) Baso % (Auto) Lymph # (Auto) [place] # (Auto) Eos # (Auto) Baso # (Auto) Abs Immat Gran (auto) Absolute Neuts (auto) Absolute Nucleated RBC Nucleated RBC % (auto) VBG pH VBG pCO2 VBG pO2 VBG HCO3 VBG O2 Saturation VBG Base Excess Anion Gap Estim Creat Clear Calc Estimated GFR Random Glucose Lactic Acid 4.5 H* Calcium Total Bilirubin AST ALT Alkaline Phosphatase Troponin I High Sens B-Natriuretic Peptide 252 H Total Protein Albumin Influenza Type A (ELVIS) Negative Influenza Type B (ELVIS) Negative Influenza A & B Note See Note 11/15/22 01:40 MCV MCH MCHC RDW Plt Count MPV Immature Gran % (Auto) Neut % (Auto) Lymph % (Auto) [place] % (Auto) Eos % (Auto) Baso % (Auto) Lymph # (Auto) [place] # (Auto) Eos # (Auto) Baso # (Auto) Abs Immat Gran (auto) Absolute Neuts (auto) Absolute Nucleated RBC Nucleated RBC % (auto) VBG pH 7.54 H VBG pCO2 38 VBG pO2 46 VBG HCO3 33 H VBG O2 Saturation 78.0 VBG Base Excess 9.9 Anion Gap Estim Creat Clear Calc Estimated GFR Random Glucose Lactic Acid Calcium Total Bilirubin AST ALT Alkaline Phosphatase Troponin I High Sens B-Natriuretic Peptide Total Protein Albumin Influenza Type A (ELVIS) Influenza Type B (ELVIS) Influenza A & B Note Imaging Radiologist's Impressions: Impressions Chest X-Ray 11/15/22 00:22 IMPRESSION: Some increase interstitial markings as described. Interstitial pulmonary edema would need to be considered. Differential would include infiltrate. Follow-up recommended Assessment and Plan (1) COPD with acute exacerbation: Status: Acute (2) Acute respiratory failure with hypoxia: Status: Acute (3) Community acquired pneumonia: Status: Acute (4) Sepsis: Status: Acute Plan 72-year-old female with past medical history of COPD presents to the hospital with increased shortness of breath cough and sputum production found to have pneumonia as well as COPD exacerbation # acute COPD exacerbation - with increased dyspnea, sputum production, as well as cough - underlying pneumonia as seen on chest x-ray - prolactin pending - has leukocytosis, tachycardia, tachypnea - will treat with IV antibiotic - will follow cultures # acute hypoxic respiratory failure - secondary to above - edema less likely - will treat with IV antibiotics, - continue O2 as required # sepsis - secondary to community-acquired pneumonia - will treat with IV antibiotic - given concern for volume overload, we will not be given patient a 30 cc/kg fluid as this may exacerbated her failure, some port of her lactic acidosis may be also secondary to dehydration, - will place patient on maintenance fluid and monitor lactic acid - follow cultures # community-acquired pneumonia - has leukocytosis, tachypnea, tachycardia, as well as lactic acidosis, - will treat with IV antibiotics - follow cultures # lactic acidosis - likely multifactorial in the setting of breathing treatments, sepsis, and dehydration - no hypotension - patient received 1 L of IV fluid with improvement in her symptoms, at this time will place on maintenance fluid, patient will not be receiving the 30 cc/kg fluid for sepsis as patient has some evidence of volume overload on x-ray as well as an elevated BNP, and given her many L bolus may exacerbate or worsen her respiratory status # hypertensive crisis - likely secondary to breathing difficulty and exacerbation - will resume her home antihypertensives # history of peripheral vascular disease - continue home Lily is 0, Plavix, and aspirin # history of CAD - no chest pain - continue home medications of aspirin, beta-guido, and Plavix as well as statin # elevated BNP - no evidence of CHF at this time - patient received fluids for above - monitor volume status DVT prophylaxis: Time Spent With Patient Time: Total time managing care of this patient today ____ minutes. Quality Stroke Does the patient have a stroke diagnosis?: No VTE Prior VTE?: No VTE Risk Level:: Medical - moderate - high VTE Device Contraindication: Treatment Not Indicated VTE Drug Contraindication: Treatment Not Indicated
[2022-11-15] MEDS: Azithromycin 500 MG in 0.9 % Sodium Chloride 250 ML 125 MG IV (02:50)
--- NOTE | 2022-11-15 03:02 | MHC.EDTECH ---
REPEATED LABS DRAWN AND SENT TO LAB .
--- NOTE | 2022-11-15 03:12 | PC.NURSE ---
1L of NS via IV completed at 0312.
--- NOTE | 2022-11-15 03:41 | MHC.EDTECH ---
patient drank 480 ml ,out put 850 ml .
[2022-11-15 03:42] LABS: Reflex Lactate? Lactic Acid Added
[2022-11-15] MEDS: methylPREDNISolone Sod Succ 40 MG/ML VIAL IVPUSH ×2 (04:29→17:55)
[2022-11-15] MEDS: Enoxaparin Sodium 40 MG/0.4 ML SYRINGE SUBCUT (04:31)
[2022-11-15 04:43] LABS: ~Lactic Acid-LAB USE ONLY 2.9 mmol/L (0.5-2.0)
[2022-11-15 04:55] LABS: Alanine Aminotransferase 102 U/L (0-31); Albumin Level 3.5 g/dL (3.5-5.0); Alkaline Phosphatase 244 U/L (39-117); Anion Gap 18 (12-20); Aspartate Amino Transferase 75 U/L (5-31); Bilirubin Total 0.3 mg/dL (0.0-1.0); Blood Urea Nitrogen 10 mg/dL (9-16); Calcium 8.7 mg/dL (8.4-10.2); Carbon Dioxide 31 mmol/L (22-29); Chloride 96 mmol/L (96-108); Creatinine Clr Calc Pharmacy 55.4; Estimated Glomerular Filt Rate > 60; Glucose Random 313 mg/dL (60-115); Potassium 2.3 mmol/L (3.3-5.1); Sodium 143 mmol/L (135-145)
[2022-11-15] MEDS: Aspirin Enteric Coated 81 MG TABLET.DR 324 MG PO ×2 (06:18→08:59)
[2022-11-15 06:20] LABS: Reflex Lactate? 2 Y
[2022-11-15] MEDS: Potassium Chloride Packet 20 MEQ PACKET 40 MEQ PO ×3 (06:20→10:40)
--- NOTE | 2022-11-15 07:00 | CA_ITS ---
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 Study Quality: Fair/Contrast ECG Rhythm: Sinus Conclusions: - 1. Normal LV systolic function with impaired relaxation filling pattern 2. Mild aortic regurgitation 3. Mildly elevated right ventricular systolic pressure and mildly elevated right atrial pressures 4. No pericardial effusion Findings Procedure Information Contrast agent, definity, is being given per protocol without apparent complications. Left Ventricle Normal left ventricular size, thickness, and systolic function. The visually estimated ejection fraction is between 60-65%. Spectral Doppler is indicative of an impaired relaxation filling pattern. E/E prime ratio is between 8 and 15 consistent with indeterminate filling pressures. Right Ventricle Normal right ventricular cavity size and systolic function. Atria Both atria are normal in size. There is lipomatous hypertrophy of the interatrial septum. There is no evidence of interatrial shunt. Aortic Valve The aortic valve structure and function is likely normal. There is no aortic valve stenosis. There is mild aortic valve regurgitation. Mitral Valve There is mild anterior and posterior mitral leaflet thickening. There is trace mitral valve regurgitation. There is no mitral valve stenosis. Pulmonic Valve The pulmonic valve was not well visualized. Tricuspid Valve Likely normal tricuspid valve structure and function. There is mild tricuspid valve regurgitation. Mildly elevated right atrial pressure. Mild pulmonary hypertension is present. Great Vessels All visible segments of the aorta are normal in size. The pulmonary artery was not well visualized. Venous The inferior vena cava is mildly dilated and collapses greater than 50% with inspiration. Pericardium/Pleural There is no evidence of pericardial effusion. Prior Study Comparison No prior study available for comparison. Measurements 2D Linear Measurements IVSd: 1.29 0.6-0.9/0.6-1.0 cm LVIDd: 4.14 3.9-5.3/4.2-5.9 cm LVIDd Index: 2.60 2.4-3.2/2.2-3.1 cm/m2 LVIDs: 3.08 2.0-3.6 cm LVPWd: 1.07 0.7-1.1 cm LA Diam: 3.40 2.7-3.8/3.0-4.0 cm LAIDs Index: 2.14 1.5-2.3 cm/m2 LV Mass: 211.81 67-162/88-224 g LV Mass Index: 133.22 43-95/49-115 g/m2 LVOT Diam: 2.00 3.0+(-)1.3 cm Mitral Valve MV VTI: 0.41 MV Pk Dameon: 1.58 MV Mn Dameon: 0.97 MV Pk Grad: 10.00 MV Mn Grad: 4.00 MV Pk E: 0.92 MV PK A: 1.36 MV Decel Time: 223.00 E/A: 0.70 E'Lateral: 7.51 E'Medial: 6.09 E/E' Med: 15.10 E/E' Lat: 12.30 PHT: 65.00 MVA PHT: 3.38 MVA Continuity: 1.84 Decel [place]: 4.13 Aortic Valve AoV Pk Dameon: 1.68 AoV Mn Dameon: 1.11 AoV VTI: 0.34 AoV Pk Grad: 11.00 Aov Mn Grad: 5.00 SKIP Cont.VTI: 2.25 AI Pk Dameon: 3.43 AI [place]: 2.72 LVOT LVOT Pk Dameon: 1.22 LVOT Mn Dameon: 0.72 LVOT VTI: 0.24 LVOT Pk Grad: 6.00 LVOT Mn Grad: 3.00 LVOT Diam: 2.00 LVOT Area: 3.14 Diastolic Function MV Pk E: 0.92 MV Pk A: 1.36 E/A: 0.70 E'Medial: 6.09 E/E' Med: 15.10 E' Laterial: 7.51 E/E' Lat: 12.30 Right Ventricle TAPSE (mm): 22.40 TVS' Dame[place]: 12.40 Tricuspid Valve TR Pk Dameon: 3.03 TR Pk Grad: 37.00 RA Press: 8.00 RVSP: 45.00 Great Vessels Aorta Sinus of Valsalva: 3.10 2.0-3.5 cm Ao Asc: 2.70 2.1-3.4 cm Updated in Other Vendor System with Status of Final Avila Gomez MD electronically signed on 11/16/2022 3:15:37 PM with status of Final
[2022-11-15 07:24] LABS: ~Lactic Acid-LAB USE ONLY 5.2 mmol/L (0.5-2.0)
[2022-11-15] MEDS: oxyCODONE HCl Immed Release 5 MG TABLET 10 MG PO ×3 (08:53→21:40)
[2022-11-15] MEDS: Acetaminophen 325 MG TABLET PO ×3 (08:56→21:45)
[2022-11-15 08:57] LABS: Magnesium 1.2 mg/dL (1.6-2.6)
[2022-11-15] MEDS: cilostazoL 50 MG TABLET PO (08:57)
[2022-11-15] MEDS: Cholecalciferol (Vitamin D3) 25 MCG TABLET 100 MCG PO (08:58)
[2022-11-15] MEDS: Pregabalin 150 MG CAPSULE PO ×3 (08:58→21:41)
[2022-11-15] MEDS: DULoxetine HCl 60 MG CAPSULE.DR PO (08:58)
[2022-11-15] MEDS: amLODIPine Besylate 10 MG TABLET PO (08:58)
[2022-11-15] MEDS: Clopidogrel Bisulfate 75 MG TABLET PO (08:58)
[2022-11-15] MEDS: Omeprazole 20 MG CAPSULE.DR PO (08:58)
[2022-11-15] MEDS: busPIRone HCl 10 MG TABLET PO ×2 (09:00→21:41)
[2022-11-15] MEDS: Metoprolol Tartrate 25 MG TABLET PO ×2 (09:00→21:40)
[2022-11-15] MEDS: Potassium Chloride ER 20 MEQ TAB.ER.PRT PO (09:00)
[2022-11-15] MEDS: carisoprodoL 350 MG TABLET PO ×4 (09:00→21:39)
[2022-11-15] MEDS: hydroCHLOROthiazide 25 MG TABLET PO (09:00)
[2022-11-15] MEDS: Potassium Chloride/H20 10 MEQ/100 ML PIGGYBACK 100 MEQ IV ×2 (09:13→10:43)
[2022-11-15] MEDS: 0.9 % Sodium Chloride Flush 3 ML SYRINGE IVFLUSH ×2 (09:19→17:57)
--- NOTE | 2022-11-15 09:25 | PHA.MEDREC ---
Pharmacy Consult ? Medication Reconciliation Pharmacy has completed the medication reconciliation. Spoke to patient, pharmacy, and specialty pharmacy to confirm meds. Patient not best historian of meds. Patient had an outdated med list from 11/2021. Patient gets biannually Ocrelizumab, weekly Cuvitru, and monthly Aimovig. Specialty pharmacy states she doesn't get Ocrelizumab from their pharmacy, but patien attests to taking the medication and mentions it was mail order. Patient had daliresp medication with them, but was filled 12/2021 and did not have any recent refills for the medication. Patient takes vitamin d3 100 mcg daily.
--- NOTE | 2022-11-15 09:56 | MHC.CM.PN ---
IMM 11/15/22. Pt admitted with dx COPD/pneumonia. Pt lives at home with her , uses a wheeled walker, no previous services. Pt will transport. D/C plan pending further evaluation/PT eval, but anticipating home VNA vs STR. HCP filled out today and on file. PCP: Sushil Watts vax: x [phone]
--- NOTE | 2022-11-15 10:23 | ECG_ITS ---
Test Reason : DYSPENA Blood Pressure : / mmHG Vent. Rate : 139 BPM Atrial Rate : 139 BPM P-R Int : 122 ms QRS Dur : 070 ms QT Int : 292 ms P-R-T Axes : 042 -34 078 degrees QTc Int : 444 ms Sinus tachycardia Left axis deviation Nonspecific ST abnormality Abnormal ECG When compared with ECG of 15-NOV-2022 00:46, No significant change was found Referred By: Zach Veliz Electronically Signed By:PARAM CASTELAN MD
[2022-11-15] MEDS: ondansetron HCL 4 MG/2 ML VIAL IVPUSH (10:39)
[2022-11-15] MEDS: Magnesium Sulfate/D5W 1 GM/100 ML PIGGYBACK IV (10:56)
[2022-11-15] MEDS: Butalb/Acetamin/Caff 50/325/40 TABLET 1 TAB PO (14:16)
[2022-11-15] MEDS: guaiFENesin 100 MG/5 ML LIQUID 10 ML PO ×2 (14:17→21:45)
[2022-11-15 16:41] LABS: Magnesium 1.7 mg/dL (1.6-2.6); Potassium 3.8 mmol/L (3.3-5.1)
--- NOTE | 2022-11-15 17:26 | P.PNIM_ITS ---
Subjective Subjective Date of Service: 11/15/22 Physical Exam Vital Signs: Vital Signs: Last Vital Signs Temp 98.0 F 11/15/22 14:51 Pulse 95 11/15/22 14:51 Resp 20 11/15/22 14:51 BP 131/63 11/15/22 14:51 Pulse Ox 92 11/15/22 14:51 O2 Del Method Nasal Cannula 11/15/22 14:51 O2 Flow Rate 2 11/15/22 14:51 Oxygen Flow Rate 1 11/14/22 23:51 BMI result Body Mass Index 22.4 Objective Data Active Medications Acetaminophen (Acetaminophen 325 Mg Tablet) 650 mg PO Q6H PRN PRN Reason: Pain, Mild (Pain Scale 1-3) Acetaminophen (Acetaminophen 325 Mg Tablet) 325 mg PO Q4H PRN PRN Reason: Pain, Severe (Pain Scale 7-10) Last Admin: 11/15/22 14:09 Dose: 325 mg Documented By: REBECCA Acetaminophen/Butalbital/Caffeine (Butalb/Acetamin/Caff 50/325/40 Tablet) 1 tab PO DAILY PRN PRN Reason: Headache Last Admin: 11/15/22 14:16 Dose: 1 tab Documented By: REBECCA Albuterol/Ipratropium (Albuterol/Iprat 2.5/0.5mg 3 Ml Ampul.Neb) 3 ml INHALE RQ4H PRN PRN Reason: Shortness of Breath/Wheezing Albuterol/Ipratropium (Albuterol/Iprat 2.5/0.5mg 3 Ml Ampul.Neb) 3 ml INHALE RQ4H WHILE AWAKE [facility] Last Admin: 11/15/22 11:25 Dose: 3 ml Documented By: RODRIGUEZ Alprazolam (Alprazolam 0.25 Mg Tablet) 0.25 mg PO BEDTIME PRN PRN Reason: Anxiety Amlodipine Besylate (Amlodipine Besylate 10 Mg Tablet) 10 mg PO DAILY [facility]; Protocol Last Admin: 11/15/22 08:58 Dose: 10 mg Documented By: REBECCA Aspirin (Aspirin Enteric Coated 81 Mg Tablet.) 81 mg PO DAILY [facility] Buspirone HCl (Buspirone Hcl 10 Mg Tablet) 10 mg PO BID [facility] Last Admin: 11/15/22 09:00 Dose: 10 mg Documented By: REBECCA Carisoprodol (Carisoprodol 350 Mg Tablet) 350 mg PO QID [facility] Last Admin: 11/15/22 14:10 Dose: 350 mg Documented By: REBECCA Clopidogrel Bisulfate (Clopidogrel Bisulfate 75 Mg Tablet) 75 mg PO DAILY [facility] Last Admin: 11/15/22 08:58 Dose: 75 mg Documented By: REBECCA Clopidogrel Bisulfate (Clopidogrel Bisulfate 75 Mg Tablet) 75 mg PO DAILY [facility] Docusate Sodium (Docusate Sodium 100 Mg Capsule) 100 mg PO DAILY PRN PRN Reason: Constipation Duloxetine HCl (Duloxetine Hcl 60 Mg Capsule.Dr) 60 mg PO DAILY [facility] Last Admin: 11/15/22 08:58 Dose: 60 mg Documented By: REBECCA Enoxaparin Sodium (Enoxaparin Sodium 40 Mg/0.4 Ml Syringe) 40 mg SUBCUT DAILY [facility] Last Admin: 11/15/22 04:31 Dose: 40 mg Documented By: GRACE Fluticasone Propionate (Fluticasone Propionate Nasal 16 Gm [place]) 1 spray NO STRIL-B BID [facility] Last Admin: 11/15/22 10:53 Dose: Not Given Documented By: REBECCA Non-Admin Reason: pharmacist called Guaifenesin (Guaifenesin 100 Mg/5 Ml Liquid) 10 ml PO Q6H PRN PRN Reason: Cough Last Admin: 11/15/22 14:17 Dose: 10 ml Documented By: REBECCA Hydrochlorothiazide (Hydrochlorothiazide 25 Mg Tablet) 25 mg PO DAILY [facility]; Protocol Last Admin: 11/15/22 09:00 Dose: 25 mg Documented By: REBECCA Ceftriaxone Sodium 1 gm/ (Sodium Chloride) 50 mls @ 100 mls/hr IV Q24H [facility] Azithromycin 500 mg/ Sodium (Chloride) 250 mls @ 125 mls/hr IV Q24H [facility] Methylprednisolone Sodium Succinate (Methylprednisolone Sod Succ 40 Mg/Ml Vial) 40 mg IVPUSH BID@0600,1800 [facility] Last Admin: 11/15/22 04:29 Dose: 40 mg Documented By: GRACE Metoprolol Tartrate (Metoprolol Tartrate 25 Mg Tablet) 25 mg PO BID [facility]; Umesh col Last Admin: 11/15/22 09:00 Dose: 25 mg Documented By: REBECCA Nitroglycerin (Nitroglycerin 0.4 Mg Tab.Subl) 0.4 mg SUBLINGUAL Q5M PRN PRN Reason: Chest Pain Non-Formulary Medication (Immun Glob G(Igg)-Gly-Iga Ov50 [Cuvitru]) 50 ml SUBCUT Q7D [facility] Omeprazole (Omeprazole 20 Mg Capsule.Dr) 20 mg PO DAILY [facility] Last Admin: 11/15/22 08:58 Dose: 20 mg Documented By: REBECCA Ondansetron HCl (Ondansetron Hcl 4 Mg/2 Ml Vial) 4 mg IVPUSH Q8H PRN PRN Reason: Nausea and Vomiting Last Admin: 11/15/22 10:39 Dose: 4 mg Documented By: TOLU Oxycodone HCl (Oxycodone Hcl Immed Release 5 Mg Tablet) 10 mg PO Q4H PRN PRN Reason: Pain, Severe (Pain Scale 7-10) Last Admin: 11/15/22 14:08 Dose: 10 mg Documented By: REBECCA Potassium Chloride (Potassium Chloride Er 20 Meq Tab.Er.Prt) 20 meq PO DAILY [facility] Last Admin: 11/15/22 09:00 Dose: 20 meq Documented By: REBECCA Pregabalin (Pregabalin 150 Mg Capsule) 150 mg PO TID [facility] Last Admin: 11/15/22 14:10 Dose: 150 mg Documented By: REBECCA Sodium Chloride (0.9 % Sodium Chloride Flush 3 Ml Syringe) 3 ml IVFLUSH QSHIFT [facility] Last Admin: 11/15/22 09:19 Dose: 3 ml Documented By: REBECCA Vitamin D (Cholecalciferol (Vitamin D3) 25 Mcg Tablet) 100 mcg PO DAILY [facility] Last Admin: 11/15/22 08:58 Dose: 100 mcg Documented By: REBECCA Labs 11/15/22 00:37 11/15/22 16:09 Labs: Laboratory Results - last 24 hr 11/15/22 11/15/22 11/15/22 00:37 00:37 00:37 MCV 91.4 MCH 31.7 MCHC 34.6 RDW 12.9 Plt Count 377 MPV 9.6 Immature Gran % (Auto) 0.6 H Neut % (Auto) 88.7 H Lymph % (Auto) 5.8 L [place] % (Auto) 4.4 Eos % (Auto) 0.3 Baso % (Auto) 0.2 Lymph # (Auto) 1.2 [place] # (Auto) 0.9 Eos # (Auto) 0.1 Baso # (Auto) 0.0 Abs Immat Gran (auto) 0.12 H Absolute Neuts (auto) 17.5 H Absolute Nucleated RBC 0.000 Nucleated RBC % (auto) 0.0 VBG pH VBG pCO2 VBG pO2 VBG HCO3 VBG O2 Saturation VBG Base Excess Anion Gap 19 Estim Creat Clear Calc 56.9 Estimated GFR > 60 Random Glucose 191 H Lactic Acid Lactic Acid F/U @ 2Hr Lactic Acid F/U @ 4Hr Calcium 9.6 D Magnesium Total Bilirubin 0.4 AST 104 H ALT 117 H Alkaline Phosphatase 268 H Troponin I High Sens 19.9 H B-Natriuretic Peptide Total Protein 6.5 Albumin 3.7 Influenza Type A (ELVIS) Influenza Type B (ELVIS) Influenza A & B Note 11/15/22 11/15/22 11/15/22 00:37 00:37 01:36 MCV MCH MCHC RDW Plt Count MPV Immature Gran % (Auto) Neut % (Auto) Lymph % (Auto) [place] % (Auto) Eos % (Auto) Baso % (Auto) Lymph # (Auto) [place] # (Auto) Eos # (Auto) Baso # (Auto) Abs Immat Gran (auto) Absolute Neuts (auto) Absolute Nucleated RBC Nucleated RBC % (auto) VBG pH VBG pCO2 VBG pO2 VBG HCO3 VBG O2 Saturation VBG Base Excess Anion Gap Estim Creat Clear Calc Estimated GFR Random Glucose Lactic Acid 4.5 H* Lactic Acid F/U @ 2Hr Lactic Acid F/U @ 4Hr Calcium Magnesium Total Bilirubin AST ALT Alkaline Phosphatase Troponin I High Sens B-Natriuretic Peptide 252 H Total Protein Albumin Influenza Type A (ELVIS) Negative Influenza Type B (ELVIS) Negative Influenza A & B Note See Note 11/15/22 11/15/22 11/15/22 01:40 04:12 04:12 MCV MCH MCHC RDW Plt Count MPV Immature Gran % (Auto) Neut % (Auto) Lymph % (Auto) [place] % (Auto) Eos % (Auto) Baso % (Auto) Lymph # (Auto) [place] # (Auto) Eos # (Auto) Baso # (Auto) Abs Immat Gran (auto) Absolute Neuts (auto) Absolute Nucleated RBC Nucleated RBC % (auto) VBG pH 7.54 H VBG pCO2 38 VBG pO2 46 VBG HCO3 33 H VBG O2 Saturation 78.0 VBG Base Excess 9.9 Anion Gap 18 Estim Creat Clear Calc 55.4 Estimated GFR > 60 Random Glucose 313 H Lactic Acid Lactic Acid F/U @ 2Hr 2.9 H* Lactic Acid F/U @ 4Hr Calcium 8.7 D Magnesium 1.2 L* Total Bilirubin 0.3 AST 75 H ALT 102 H Alkaline Phosphatase 244 H Troponin I High Sens B-Natriuretic Peptide Total Protein 6.0 L Albumin 3.5 Influenza Type A (ELVIS) Influenza Type B (ELVIS) Influenza A & B Note 11/15/22 11/15/22 06:43 16:09 MCV MCH MCHC RDW Plt Count MPV Immature Gran % (Auto) Neut % (Auto) Lymph % (Auto) [place] % (Auto) Eos % (Auto) Baso % (Auto) Lymph # (Auto) [place] # (Auto) Eos # (Auto) Baso # (Auto) Abs Immat Gran (auto) Absolute Neuts (auto) Absolute Nucleated RBC Nucleated RBC % (auto) VBG pH VBG pCO2 VBG pO2 VBG HCO3 VBG O2 Saturation VBG Base Excess Anion Gap Estim Creat Clear Calc Estimated GFR Random Glucose Lactic Acid Lactic Acid F/U @ 2Hr Lactic Acid F/U @ 4Hr 5.2 H* Calcium Magnesium 1.7 Total Bilirubin AST ALT Alkaline Phosphatase Troponin I High Sens B-Natriuretic Peptide Total Protein Albumin Influenza Type A (ELVIS) Influenza Type B (ELVIS) Influenza A & B Note Assessment and Plan Time Spent With Patient Time: Total time managing care of this patient today ____ minutes. Quality Stroke Does the patient have a stroke diagnosis?: No VTE Prior VTE?: No VTE Risk Level:: Medical - moderate - high VTE Device Contraindication: Treatment Not Indicated VTE Drug Contraindication: Treatment Not Indicated
--- NOTE | 2022-11-15 17:28 | PM.EVENT ---
Event Note Date of Service: 11/15/22 Event Note: Patient already seen by hospitalist service this morning Seen and examined again Any chest pain or fever chills has cough and mild pleutric discomfort Patient's shortness of breath improving elevated lactic acid Physical exam: Unchanged from H&P-chest: Air entry diminished at bases, has wheezing plan: Sepsis/acute hypoxic respiratory failure-secondary to pneumonia Continue nebs, steroids, IV antibiotics. Elevated lactic acid related to nebs/dehydration, patient clinically improving, devoid trending lactic acid further unless clinical situation deteriorate. Time Spent With Patient Time: Total time managing care of this patient today ____ minutes.
[2022-11-15] MEDS: ALPRAZolam 0.25 MG TABLET PO (22:43)
[2022-11-16] VITALS (10 sets, daily range): BP systolic 135–184; BP diastolic 60–86; PULSE 75–109; RESP 16–20; TEMP 36–37; O2SAT 93–96; BMI 23.2
[2022-11-16] MEDS: 0.9 % Sodium Chloride Flush 3 ML SYRINGE IVFLUSH ×4 (00:52→23:58)
[2022-11-16 02:54] LABS: HBS Num1 37.86 mIU/mL (0-7.99); HBc Num1 0.13 S/CO (0.00-0.79); HBsAGNum1 0.33 S/CO (0.00-0.99); Hepatitis A Antibody IgM 0.18 Index (0-0.79); Hepatitis B Core Antibody Nonreactive (Nonreactive); Hepatitis B Surface Antigen Negative (Negative); ~Hepatitis A Antibody IgM Nonreactive (Nonreactive); ~Hepatitis B Surface Antibody REACTIVE (Nonreactive); ~Hepatitis C Antibody Nonreactive (Nonreactive)
[2022-11-16] MEDS: Acetaminophen 325 MG TABLET 650 MG PO (03:52)
[2022-11-16] MEDS: oxyCODONE HCl Immed Release 5 MG TABLET 10 MG PO ×3 (03:53→18:42)
[2022-11-16] MEDS: Azithromycin 500 MG in 0.9 % Sodium Chloride 250 ML 125 MG IV (05:42)
[2022-11-16] MEDS: methylPREDNISolone Sod Succ 40 MG/ML VIAL IVPUSH ×2 (05:42→17:29)
[2022-11-16] MEDS: Albuterol/Iprat 2.5/0.5MG 3 ML AMPUL.NEB INHALE ×4 (07:44→19:46)
[2022-11-16] MEDS: busPIRone HCl 10 MG TABLET PO ×2 (07:50→22:17)
[2022-11-16] MEDS: Clopidogrel Bisulfate 75 MG TABLET PO (07:51)
[2022-11-16] MEDS: Aspirin Enteric Coated 81 MG TABLET.DR PO (07:51)
[2022-11-16] MEDS: Metoprolol Tartrate 25 MG TABLET PO ×2 (07:52→22:22)
[2022-11-16] MEDS: carisoprodoL 350 MG TABLET PO ×4 (07:52→22:17)
[2022-11-16] MEDS: Cholecalciferol (Vitamin D3) 25 MCG TABLET 100 MCG PO (07:53)
[2022-11-16] MEDS: Potassium Chloride ER 20 MEQ TAB.ER.PRT PO (07:54)
[2022-11-16] MEDS: Pregabalin 150 MG CAPSULE PO ×3 (07:54→22:18)
[2022-11-16] MEDS: DULoxetine HCl 60 MG CAPSULE.DR PO (07:54)
[2022-11-16] MEDS: Omeprazole 20 MG CAPSULE.DR PO (07:55)
[2022-11-16] MEDS: amLODIPine Besylate 10 MG TABLET PO (07:55)
[2022-11-16] MEDS: Enoxaparin Sodium 40 MG/0.4 ML SYRINGE SUBCUT (07:55)
[2022-11-16 08:47] LABS: Adenovirus PCR Not Detected (Not Detect.); Bordetella parapertussis PCR Not Detected (Not Detect.); Bordetella pertussis PCR Not Detected (Not Detect.); Chlamydia pneumoniae PCR Not Detected (Not Detect.); Coronavirus 229E PCR Not Detected (Not Detect.); Coronavirus HKU1 PCR Not Detected (Not Detect.); Coronavirus NL63 PCR Not Detected (Not Detect.); Coronavirus OC43 PCR Not Detected (Not Detect.); Human metapneumovirus PCR Not Detected (Not Detect.); Influenza A PCR Not Detected (Not Detect.); Influenza B PCR Not Detected (Not Detect.); Mycoplasma pneumoniae PCR Not Detected (Not Detect.); Parainfluenza 1 PCR Not Detected (Not Detect.); Parainfluenza 2 PCR Not Detected (Not Detect.); Parainfluenza 3 PCR Not Detected (Not Detect.); Parainfluenza 4 PCR Not Detected (Not Detect.); RSV PCR Not Detected (Not Detect.); Rhino/Enterovirus PCR Not Detected (Not Detect.); SARS-CoV-2 PCR Not Detected (Not Detect.)
[2022-11-16 09:29] LABS: Anion Gap 16 (12-20); Blood Urea Nitrogen 15 mg/dL (9-16); Calcium 9.3 mg/dL (8.4-10.2); Carbon Dioxide 33 mmol/L (22-29); Chloride 95 mmol/L (96-108); Creatinine Clr Calc Pharmacy 60.9; Estimated Glomerular Filt Rate > 60; Glucose Random 157 mg/dL (60-115); Magnesium 1.7 mg/dL (1.6-2.6); Potassium 4.2 mmol/L (3.3-5.1); Sodium 140 mmol/L (135-145)
--- NOTE | 2022-11-16 10:25 | MHC.CM.PN ---
EMR reviewed and per MD rounds, pt is not medically cleared for D/C today due to continued hypoxia. CM will continue to follow.
[2022-11-16] MEDS: Butalb/Acetamin/Caff 50/325/40 TABLET 1 TAB PO (11:20)
[2022-11-16] MEDS: guaiFENesin 100 MG/5 ML LIQUID 10 ML PO (16:33)
--- NOTE | 2022-11-16 17:26 | HO.PM.IMPN ---
Subjective Subjective Date of Service: 11/16/22 Interval History: COPD exacerbation Review of Systems Shortness of breath seems somewhat improving but still short of breath with minimal exertion. Denies any chest pain or nausea vomiting. Physical Exam Vital Signs: Vital Signs: Last Vital Signs Temp 98.6 F 11/16/22 15:07 Pulse 96 11/16/22 16:03 Resp 18 11/16/22 16:03 BP 163/86 H 11/16/22 15:07 Pulse Ox 95 11/16/22 15:07 O2 Del Method Nasal Cannula 11/16/22 15:07 O2 Flow Rate 2 11/16/22 11:37 Oxygen Flow Rate 1 11/14/22 23:51 BMI result Body Mass Index 23.2 Appearance: Alert.? Oriented X3.? sob. cvs: rrr, [id number] , no murmur res: air entry slightly improving,has b/l wheezin abd: no rebound or guarding ,nt, bs present. ext pulses present , no cyanosis . neuro: axo3 , nonfocal. Objective Data Active Medications Acetaminophen (Acetaminophen 325 Mg Tablet) 650 mg PO Q6H PRN PRN Reason: Pain, Mild (Pain Scale 1-3) Last Admin: 11/16/22 03:52 Dose: 650 mg Documented By: MED Acetaminophen (Acetaminophen 325 Mg Tablet) 325 mg PO Q4H PRN PRN Reason: Pain, Severe (Pain Scale 7-10) Last Admin: 11/15/22 21:45 Dose: 325 mg Documented By: ANDREA Acetaminophen/Butalbital/Caffeine (Butalb/Acetamin/Caff 50/325/40 Tablet) 1 tab PO DAILY PRN PRN Reason: Headache Last Admin: 11/16/22 11:20 Dose: 1 tab Documented By: JOCELYN Albuterol/Ipratropium (Albuterol/Iprat 2.5/0.5mg 3 Ml Ampul.Neb) 3 ml INHALE RQ4H PRN PRN Reason: Shortness of Breath/Wheezing Albuterol/Ipratropium (Albuterol/Iprat 2.5/0.5mg 3 Ml Ampul.Neb) 3 ml INHALE RQ4H WHILE AWAKE [facility] Last Admin: 11/16/22 16:01 Dose: 3 ml Documented By: RODRIGUEZ Alprazolam (Alprazolam 0.25 Mg Tablet) 0.25 mg PO BEDTIME PRN PRN Reason: Anxiety Last Admin: 11/15/22 22:43 Dose: 0.25 mg Documented By: ANDREA Amlodipine Besylate (Amlodipine Besylate 10 Mg Tablet) 10 mg PO DAILY [facility]; Protocol Last Admin: 11/16/22 07:55 Dose: 10 mg Documented By: JOCELYN Aspirin (Aspirin Enteric Coated 81 Mg Tablet.) 81 mg PO DAILY [facility] Last Admin: 11/16/22 07:51 Dose: 81 mg Documented By: JOCELYN Buspirone HCl (Buspirone Hcl 10 Mg Tablet) 10 mg PO BID [facility] [place] Last Admin: 11/16/22 07:50 Dose: 10 mg Documented By: JOCELYN Carisoprodol (Carisoprodol 350 Mg Tablet) 350 mg PO QID [facility] Last Admin: 11/16/22 14:08 Dose: 350 mg Documented By: JOCEYLN Clopidogrel Bisulfate (Clopidogrel Bisulfate 75 Mg Tablet) 75 mg PO DAILY [facility] [place] Last Admin: 11/16/22 07:51 Dose: 75 mg Documented By: JOCELYN Docusate Sodium (Docusate Sodium 100 Mg Capsule) 100 mg PO DAILY PRN PRN Reason: Constipation Duloxetine HCl (Duloxetine Hcl 60 Mg Capsule.) 60 mg PO DAILY [facility] [place] Last Admin: 11/16/22 07:54 Dose: 60 mg Documented By: JOCELYN Enoxaparin Sodium (Enoxaparin Sodium 40 Mg/0.4 Ml Syringe) 40 mg SUBCUT DAILY [facility] [place] Last Admin: 11/16/22 07:55 Dose: 40 mg Documented By: JOCELYN Fluticasone Propionate (Fluticasone Propionate Nasal 16 Gm [place]) 1 spray NOSTRIL-B BID [facility] [place] Last Admin: 11/16/22 10:01 Dose: Not Given Documented By: JOCELYN Non-Admin Reason: Med Not Available Guaifenesin (Guaifenesin 100 Mg/5 Ml Liquid) 10 ml PO Q6H PRN PRN Reason: Cough Last Admin: 11/16/22 16:33 Dose: 10 ml Documented By: JOS Hydrochlorothiazide (Hydrochlorothiazide 25 Mg Tablet) 25 mg PO DAILY [facility] [place]; Protocol Last Admin: 11/15/22 09:00 Dose: 25 mg Documented By: REBECCA Ceftriaxone Sodium 1 gm/ (Sodium Chloride) 50 mls @ 100 mls/hr IV Q24H [facility] [place] Last Infusion: 11/15/22 22:25 Dose: 0 mls/hr Documented By: ANDREA Azithromycin 500 mg/ Sodium (Chloride) 250 mls @ 125 mls/hr IV Q24H [facility] [place] Last Infusion: 11/16/22 07:56 Dose: 0 mls/hr Documented By: JOCELYN Methylprednisolone Sodium Succinate (Methylprednisolone Sod Succ 40 Mg/Ml Vial) 40 mg IVPUSH BID@0600,1800 [facility] [place] Last Admin: 11/16/22 05:42 Dose: 40 mg Documented By: JANIE Metoprolol Tartrate (Metoprolol Tartrate 25 Mg Tablet) 25 mg PO BID [facility] [place]; Protocol Last Admin: 11/16/22 07:52 Dose: 25 mg Documented By: JOCELYN Nitroglycerin (Nitroglycerin 0.4 Mg Tab.Subl) 0.4 mg SUBLINGUAL Q5M PRN PRN Reason: Chest Pain Non-Formulary Medication (Immun Glob G(Igg)-Gly-Iga Ov50 [Cuvitru]) 50 ml SUBCUT Q7D [facility] [place] Omeprazole (Omeprazole 20 Mg Capsule.Dr) 20 mg PO DAILY [facility] [place] Last Admin: 11/16/22 07:55 Dose: 20 mg Documented By: JOCELYN Ondansetron HCl (Ondansetron Hcl 4 Mg/2 Ml Vial) 4 mg IVPUSH Q8H PRN PRN Reason: Nausea and Vomiting Last Admin: 11/15/22 10:39 Dose: 4 mg Documented By: TOLU Oxycodone HCl (Oxycodone Hcl Immed Release 5 Mg Tablet) 10 mg PO Q4H PRN PRN Reason: Pain, Severe (Pain Scale 7-10) Last Admin: 11/16/22 14:11 Dose: 10 mg Documented By: JOCELYN Potassium Chloride (Potassium Chloride Er 20 Meq Tab.Er.Prt) 20 meq PO DAILY [facility] Last Admin: 11/16/22 07:54 Dose: 20 meq Documented By: JOCELYN Pregabalin (Pregabalin 150 Mg Capsule) 150 mg PO TID [facility] [place] Last Admin: 11/16/22 14:08 Dose: 150 mg Documented By: JOCELYN Sodium Chloride (0.9 % Sodium Chloride Flush 3 Ml Syringe) 3 ml IVFLUSH QSHIFT [facility] [place] Last Admin: 11/16/22 16:28 Dose: 3 ml Documented By: JOS Vitamin D (Cholecalciferol (Vitamin D3) 25 Mcg Tablet) 100 mcg PO DAILY [facility] Last Admin: 11/16/22 07:53 Dose: 100 mcg Documented By: JOCELYN Labs 11/15/22 00:37 11/16/22 08:43 Labs: Laboratory Results - last 24 hr 11/15/22 11/15/22 11/16/22 04:12 19:32 08:43 Anion Gap 16 Estim Creat Clear Calc 60.9 Estimated GFR > 60 Random Glucose 157 H Calcium 9.3 D Magnesium 1.7 Respiratory Panel Vazquez See Note Adenovirus (Rapid PCR) Not Detected B.pert (TEM-PCR) Not Detected B.parapertussis DNA PCR Not Detected C. pneumoniae DNA (PCR) Not Detected Coronavirus OC43 (PCR) Not Detected Coronavirus HKU1 (PCR) Not Detected Coronavirus 229E (PCR) Not Detected Coronavirus NL63 (PCR) Not Detected Hepatitis A IgM Ab Nonreactive Hep Bs Antigen Negative Hep Bs Antibody REACTIVE Hep B Core Total Ab Nonreactive Hepatitis C Ab (EIA) Nonreactive Human Metapneumovir PCR Not Detected Influenza A (RT-PCR) Not Detected Influenza B (RT-PCR) Not Detected M. pneumoniae (PCR) Not Detected Parainfluenza 1 (PCR) Not Detected Parainfluenza 2 (PCR) Not Detected Parainfluenza 3 (PCR) Not Detected Parainfluenza 4 (PCR) Not Detected RSV (PCR) Not Detected Entero/Rhino (PCR) Not Detected SARS-CoV-2 RNA (RT-PCR) Not Detected Microbiology Microbiology Results: Microbiology 11/15/22 01:39 Blood Culture - Preliminary Blood - Venous No growth after 24 hours. 11/15/22 01:37 Blood Culture - Preliminary Blood - Venous No growth after 24 hours. Assessment and Plan (1) Community acquired pneumonia: Status: Acute (2) Sepsis: Status: Acute (3) Acute respiratory failure with hypoxia: Status: Acute (4) COPD with acute exacerbation: Status: Acute Plan 72-year-old female with past medical history of COPD presents to the hospital with increased shortness of breath cough and sputum production found to have pneumonia as well as COPD exacerbation acute hypoxic respiratory failure secondary to acute COPD exacerbation, sepsis and pneumonia - have shortness of breath with minimal exertion., cough - underlying pneumonia as seen on chest x-ray - has leukocytosis, tachycardia, tachypnea Blood culture pending Continue steroids, nebs, antibiotics, oxygen support, cough medication. Acute lactic acidosis: Possibly related to nebs use, patient clinically feeling slowly better. Avoid further trending unless clinical situation changes.. Uncontrolled hypertension: Blood pressure is fluctuating Continue current home medications. history of peripheral vascular disease - continue home Lily ,? Use Plavix, and aspirin history of CAD - no chest pain - continue home medications of aspirin, beta-guido, and Plavix as well as statin DVT prophylaxis: SubQ Lovenox. Inpatient need:acute hypoxic respiratory failure secondary to acute COPD exacerbation, sepsis and pneumonia-need IV antibiotics, nebs, steroids, blood culture also pending. Time Spent With Patient Time: Total time managing care of this patient today ____ minutes. Quality Stroke Does the patient have a stroke diagnosis?: No VTE Prior VTE?: No VTE Risk Level:: Medical - moderate - high VTE Device Contraindication: Treatment Not Indicated VTE Drug Contraindication: Treatment Not Indicated
[2022-11-16 18:32] LABS: Procalcitonin 0.44 ng/mL
[2022-11-16] MEDS: cefTRIAXone sodium 1 GM in 0.9 % Sodium Chloride 50 ML IV (22:19)
[2022-11-16] MEDS: Fluticasone Propionate Nasal 16 GM SPRAY 1 SPRAY NOSTRIL-B (22:31)
--- NOTE | 2022-11-16 22:56 | PC.NURSE ---
Patient had a episode of Vtach at 2030 which lasted a few minutes,Dr. Joy was notified,BP 143/65 pulse went down to 89,patient had no complaints.EKG was obtained,troponin 51.9 Dr Joy notifed.
[2022-11-17] VITALS (12 sets, daily range): BP systolic 158–192; BP diastolic 70–92; PULSE 81–99; RESP 18–22; TEMP 36.2–37.1; O2SAT 95–97; BMI 23.6
[2022-11-17] MEDS: Acetaminophen 325 MG TABLET 650 MG PO (03:50)
[2022-11-17] MEDS: guaiFENesin 100 MG/5 ML LIQUID 10 ML PO ×3 (03:51→17:38)
[2022-11-17] MEDS: hydrALAZINE HCl 20 MG/ML VIAL 5 MG IVPUSH (04:48)
[2022-11-17] MEDS: Azithromycin 500 MG in 0.9 % Sodium Chloride 250 ML 125 MG IV (05:34)
[2022-11-17] MEDS: methylPREDNISolone Sod Succ 40 MG/ML VIAL IVPUSH ×2 (05:35→09:08)
[2022-11-17 07:22] LABS: Prolactin 3.9 ng/mL
[2022-11-17] MEDS: Albuterol/Iprat 2.5/0.5MG 3 ML AMPUL.NEB INHALE ×3 (07:42→19:35)
[2022-11-17] MEDS: amLODIPine Besylate 10 MG TABLET PO (09:03)
[2022-11-17] MEDS: Potassium Chloride ER 20 MEQ TAB.ER.PRT PO (09:03)
[2022-11-17] MEDS: Enoxaparin Sodium 40 MG/0.4 ML SYRINGE SUBCUT (09:03)
[2022-11-17] MEDS: carisoprodoL 350 MG TABLET PO ×3 (09:03→18:23)
[2022-11-17] MEDS: 0.9 % Sodium Chloride Flush 3 ML SYRINGE IVFLUSH ×3 (09:03→21:15)
[2022-11-17] MEDS: Cholecalciferol (Vitamin D3) 25 MCG TABLET 100 MCG PO (09:04)
[2022-11-17] MEDS: Pregabalin 150 MG CAPSULE PO ×3 (09:04→20:37)
[2022-11-17] MEDS: DULoxetine HCl 60 MG CAPSULE.DR PO (09:04)
[2022-11-17] MEDS: Omeprazole 20 MG CAPSULE.DR PO (09:04)
[2022-11-17] MEDS: Acetaminophen 325 MG TABLET PO ×2 (09:04→14:54)
[2022-11-17] MEDS: Metoprolol Tartrate 25 MG TABLET PO ×2 (09:05→20:37)
[2022-11-17] MEDS: Aspirin Enteric Coated 81 MG TABLET.DR PO (09:05)
[2022-11-17] MEDS: Clopidogrel Bisulfate 75 MG TABLET PO (09:05)
[2022-11-17] MEDS: busPIRone HCl 10 MG TABLET PO ×2 (09:05→20:36)
[2022-11-17] MEDS: hydroCHLOROthiazide 25 MG TABLET PO (09:08)
[2022-11-17] MEDS: Fluticasone Propionate Nasal 16 GM SPRAY 1 SPRAY NOSTRIL-B ×2 (09:08→21:15)
[2022-11-17] MEDS: Throat Lozenge, Medicated LOZENGE 1 LOZENGE MUCOUS MEM ×3 (11:50→20:36)
[2022-11-17] MEDS: Lidocaine 4 % Patch ADH..PATCH 1 PATCH TRANSDERMA (11:50)
--- NOTE | 2022-11-17 12:52 | P.PNIM_ITS ---
Subjective Subjective Date of Service: 11/17/22 Interval History: COPD exacerbation, pneumonia Review of Systems Shortness of breath seems slowly improving but still short of breath with minimal exertion.?has cough aggressive Denies any chest pain or nausea vomiting. Physical Exam Vital Signs: Vital Signs: Last Vital Signs Temp 97.8 F 11/17/22 10:55 Pulse 96 11/17/22 11:34 Resp 18 11/17/22 11:34 BP 158/82 H 11/17/22 10:55 Pulse Ox 97 11/17/22 10:55 O2 Del Method Nasal Cannula 11/17/22 10:55 O2 Flow Rate 3 11/17/22 10:55 Oxygen Flow Rate 1 11/14/22 23:51 BMI result Body Mass Index 23.6 Appearance: Alert.? Oriented X3.? sob. cvs: [id number], [id number] , no murmur res: air entry slightly improving,has b/l wheezin abd: no rebound or guarding ,nt, bs present. ext pulses present , no cyanosis . neuro: axo3 , nonfocal. Objective Data Active Medications Acetaminophen (Acetaminophen 325 Mg Tablet) 650 mg PO Q6H PRN PRN Reason: Pain, Mild (Pain Scale 1-3) Last Admin: 11/17/22 03:50 Dose: 650 mg Documented By: BIJAL Acetaminophen (Acetaminophen 325 Mg Tablet) 325 mg PO Q4H PRN PRN Reason: Pain, Severe (Pain Scale 7-10) Last Admin: 11/17/22 09:04 Dose: 325 mg Documented By: KAYLIE Acetaminophen/Butalbital/Caffeine (Butalb/Acetamin/Caff 50/325/40 Tablet) 1 tab PO DAILY PRN PRN Reason: Headache Last Admin: 11/16/22 11:20 Dose: 1 tab Documented By: JOCELYN Albuterol/Ipratropium (Albuterol/Iprat 2.5/0.5mg 3 Ml Ampul.Neb) 3 ml INHALE RQ4H PRN PRN Reason: Shortness of Breath/Wheezing Albuterol/Ipratropium (Albuterol/Iprat 2.5/0.5mg 3 Ml Ampul.Neb) 3 ml INHALE RQ4H WHILE AWAKE RAJNI Last Admin: 11/17/22 11:33 Dose: 3 ml Documented By: HO.BLASCL Alprazolam (Alprazolam 0.25 Mg Tablet) 0.25 mg PO BEDTIME PRN PRN Reason: Anxiety Last Admin: 11/15/22 22:43 Dose: 0.25 mg Documented By: ANDREA Amlodipine Besylate (Amlodipine Besylate 10 Mg Tablet) 10 mg PO DAILY [facility]; Protocol Last Admin: 11/17/22 09:03 Dose: 10 mg Documented By: KAYLIE Aspirin (Aspirin Enteric Coated 81 Mg Tablet.) 81 mg PO DAILY [facility] Last Admin: 11/17/22 09:05 Dose: 81 mg Documented By: KAYLIE Benzocaine (Throat Lozenge, Medicated Lozenge) 1 lozenge MUCOUS MEM Q2H [facility] Last Admin: 11/17/22 11:50 Dose: 1 lozenge Documented By: KAYLIE Benzonatate (Benzonatate 100 Mg Capsule) 100 mg PO TID [facility] Buspirone HCl (Buspirone Hcl 10 Mg Tablet) 10 mg PO BID [facility] Last Admin: 11/17/22 09:05 Dose: 10 mg Documented By: KAYLIE Carisoprodol (Carisoprodol 350 Mg Tablet) 350 mg PO QID [facility] Last Admin: 11/17/22 09:03 Dose: 350 mg Documented By: KAYLIE Clopidogrel Bisulfate (Clopidogrel Bisulfate 75 Mg Tablet) 75 mg PO DAILY [facility] Last Admin: 11/17/22 09:05 Dose: 75 mg Documented By: KAYLIE Docusate Sodium (Docusate Sodium 100 Mg Capsule) 100 mg PO DAILY PRN PRN Reason: Constipation Duloxetine HCl (Duloxetine Hcl 60 Mg Capsule.) 60 mg PO DAILY [facility] Last Admin: 11/17/22 09:04 Dose: 60 mg Documented By: KAYLIE Enoxaparin Sodium (Enoxaparin Sodium 40 Mg/0.4 Ml Syringe) 40 mg SUBCUT DAILY [facility] Last Admin: 11/17/22 09:03 Dose: 40 mg Documented By: KAYLIE Fluticasone Propionate (Fluticasone Propionate Nasal 16 Gm [place]) 1 spray NOSTRIL-B BID [facility] Last Admin: 11/17/22 09:08 Dose: 1 spray Documented By: KAYLIE Guaifenesin (Guaifenesin 100 Mg/5 Ml Liquid) 10 ml PO Q6H PRN PRN Reason: Cough Last Admin: 11/17/22 11:56 Dose: 10 ml Documented By: KAYLIE Hydrochlorothiazide (Hydrochlorothiazide 25 Mg Tablet) 25 mg PO DAILY [facility]; Protocol Last Admin: 11/17/22 09:08 Dose: 25 mg Documented By: KAYLIE Ceftriaxone Sodium 1 gm/ (Sodium Chloride) 50 mls @ 100 mls/hr IV Q24H [facility] Last Infusion: 11/16/22 22:54 Dose: 0 mls/hr Documented By: JOS Azithromycin 500 mg/ Sodium (Chloride) 250 mls @ 125 mls/hr IV Q24H [facility] Last Infusion: 11/17/22 09:02 Dose: 0 mls/hr Documented By: KAYLIE Lidocaine (Lidocaine 4 % Patch Adh..Patch) 1 patch TRANSDERMA DAILY [facility]; Protocol Last Admin: 11/17/22 11:50 Dose: 1 patch Documented By: KAYLIE Methylprednisolone Sodium Succinate (Methylprednisolone Sod Succ 40 Mg/Ml Vial) 40 mg IVPUSH DAILY [facility] Last Admin: 11/17/22 09:08 Dose: 40 mg Documented By: KAYLIE Metoprolol Tartrate (Metoprolol Tartrate 25 Mg Tablet) 25 mg PO BID [facility]; Protocol Last Admin: 11/17/22 09:05 Dose: 25 mg Documented By: KAYLIE Nitroglycerin (Nitroglycerin 0.4 Mg Tab.Subl) 0.4 mg SUBLINGUAL Q5M PRN PRN Reason: Chest Pain Non-Formulary Medication (Immun Glob G(Igg)-Gly-Iga Ov50 [Cuvitru]) 50 ml SUBCUT Q7D [facility] Omeprazole (Omeprazole 20 Mg Capsule.Dr) 20 mg PO DAILY [facility] Last Admin: 11/17/22 09:04 Dose: 20 mg Documented By: KAYLIE Ondansetron HCl (Ondansetron Hcl 4 Mg/2 Ml Vial) 4 mg IVPUSH Q8H PRN PRN Reason: Nausea and Vomiting Last Admin: 11/15/22 10:39 Dose: 4 mg Documented By: TOLU Oxycodone HCl (Oxycodone Hcl Immed Release 5 Mg Tablet) 10 mg PO Q4H PRN PRN Reason: Pain, Severe (Pain Scale 7-10) Last Admin: 11/16/22 18:42 Dose: 10 mg Documented By: JOS Potassium Chloride (Potassium Chloride Er 20 Meq Tab.Er.Prt) 20 meq PO DAILY [facility] Last Admin: 11/17/22 09:03 Dose: 20 meq Documented By: KAYLIE Pregabalin (Pregabalin 150 Mg Capsule) 150 mg PO TID [facility] Last Admin: 11/17/22 09:04 Dose: 150 mg Documented By: KAYLIE Sodium Chloride (0.9 % Sodium Chloride Flush 3 Ml Syringe) 3 ml IVFLUSH QSHIFT [facility] Last Admin: 11/17/22 09:03 Dose: 3 ml Documented By: KAYLIE Vitamin D (Cholecalciferol (Vitamin D3) 25 Mcg Tablet) 100 mcg PO DAILY [facility] Last Admin: 11/17/22 09:04 Dose: 100 mcg Documented By: KAYLIE Labs 11/15/22 00:37 11/16/22 08:43 Labs: Laboratory Results - last 24 hr 11/15/22 11/16/22 03:02 08:43 Procalcitonin 0.44 Prolactin 3.9 Microbiology Microbiology Results: Microbiology 11/15/22 01:39 Blood Culture - Preliminary Blood - Venous No growth after 48 hours. 11/15/22 01:37 Blood Culture - Preliminary Blood - Venous No growth after 48 hours. Assessment and Plan (1) Community acquired pneumonia: Status: Acute (2) Sepsis: Status: Acute (3) Acute respiratory failure with hypoxia: Status: Acute (4) COPD with acute exacerbation: Status: Acute Plan Hospital day:3 72-year-old female with past medical history of COPD presents to the hospital with increased shortness of breath cough and sputum production found to have pneumonia as well as COPD exacerbation acute hypoxic respiratory failure secondary to acute COPD exacerbation, sepsis and pneumonia leukocytosis,underlying pneumonia as seen on chest x-ray,Blood culture pending shortness of breath with minimal exertion, cough tachycardia improvin, tachypnea improved. Continue steroids, nebs, antibiotics, oxygen support, cough medication. Acute lactic acidosis: Possibly related to nebs use, patient clinically feeling slowly better. Avoid further trending unless clinical situation changes.. Uncontrolled hypertension: sunoptimal Continue metoprolol,amlodipine,added back hctz. history of peripheral vascular disease continue home Lily ,? Use Plavix, and aspirin history of CAD- no chest pain continue home medications of aspirin, beta-guido, and Plavix as well as statin DVT prophylaxis: SubQ Lovenox. Inpatient need:acute hypoxic respiratory failure secondary to acute COPD exacerbation, sepsis and pneumonia-need IV antibiotics, nebs, steroids, blood culture also pending. Time Spent With Patient Time: Total time managing care of this patient today ____ minutes. Quality Stroke Does the patient have a stroke diagnosis?: No VTE Prior VTE?: No VTE Risk Level:: Medical - moderate - high VTE Device Contraindication: Treatment Not Indicated VTE Drug Contraindication: Treatment Not Indicated
[2022-11-17] MEDS: Benzonatate 100 MG CAPSULE PO ×2 (14:48→20:36)
[2022-11-17] MEDS: oxyCODONE HCl Immed Release 5 MG TABLET 10 MG PO ×2 (14:54→18:23)
[2022-11-17] MEDS: cefTRIAXone sodium 1 GM in 0.9 % Sodium Chloride 50 ML IV (20:39)
[2022-11-17] MEDS: ALPRAZolam 0.25 MG TABLET PO (20:43)
[2022-11-18] VITALS (10 sets, daily range): BP systolic 138–200; BP diastolic 64–94; PULSE 76–98; RESP 16–22; TEMP 36.1–36.8; O2SAT 93–97; BMI 22.9
[2022-11-18] MEDS: Throat Lozenge, Medicated LOZENGE 1 LOZENGE MUCOUS MEM ×3 (02:30→08:00)
[2022-11-18] MEDS: oxyCODONE HCl Immed Release 5 MG TABLET 10 MG PO ×4 (02:30→20:55)
[2022-11-18] MEDS: Butalb/Acetamin/Caff 50/325/40 TABLET 1 TAB PO (04:26)
[2022-11-18] MEDS: Azithromycin 500 MG in 0.9 % Sodium Chloride 250 ML 125 MG IV (04:26)
[2022-11-18] MEDS: hydrOXYzine HCL 25 MG TABLET PO (04:47)
[2022-11-18] MEDS: hydrALAZINE HCl 20 MG/ML VIAL 5 MG IVPUSH (04:47)
[2022-11-18] MEDS: Enoxaparin Sodium 40 MG/0.4 ML SYRINGE SUBCUT (07:58)
[2022-11-18] MEDS: Lidocaine 4 % Patch ADH..PATCH 1 PATCH TRANSDERMA (07:58)
[2022-11-18] MEDS: Clopidogrel Bisulfate 75 MG TABLET PO (07:59)
[2022-11-18] MEDS: carisoprodoL 350 MG TABLET PO ×4 (07:59→20:54)
[2022-11-18] MEDS: Potassium Chloride ER 20 MEQ TAB.ER.PRT PO (07:59)
[2022-11-18] MEDS: amLODIPine Besylate 10 MG TABLET PO (07:59)
[2022-11-18] MEDS: hydroCHLOROthiazide 25 MG TABLET PO (07:59)
[2022-11-18] MEDS: busPIRone HCl 10 MG TABLET PO ×2 (07:59→20:55)
[2022-11-18] MEDS: Cholecalciferol (Vitamin D3) 25 MCG TABLET 100 MCG PO (08:00)
[2022-11-18] MEDS: Acetaminophen 325 MG TABLET PO ×2 (08:00→13:21)
[2022-11-18] MEDS: Pregabalin 150 MG CAPSULE PO ×3 (08:01→21:02)
[2022-11-18] MEDS: Omeprazole 20 MG CAPSULE.DR PO (08:01)
[2022-11-18] MEDS: Aspirin Enteric Coated 81 MG TABLET.DR PO (08:01)
[2022-11-18] MEDS: 0.9 % Sodium Chloride Flush 3 ML SYRINGE IVFLUSH ×2 (08:01→20:55)
[2022-11-18] MEDS: DULoxetine HCl 60 MG CAPSULE.DR PO (08:01)
[2022-11-18] MEDS: carvediloL 12.5 MG TABLET PO ×2 (08:01→21:01)
[2022-11-18] MEDS: methylPREDNISolone Sod Succ 40 MG/ML VIAL IVPUSH (08:01)
[2022-11-18] MEDS: Benzonatate 100 MG CAPSULE PO ×3 (08:01→20:55)
[2022-11-18] MEDS: Fluticasone Propionate Nasal 16 GM SPRAY 1 SPRAY NOSTRIL-B ×2 (08:19→21:01)
[2022-11-18 08:37] LABS: Hematocrit 41.3 % (37.0-47.0); Hemoglobin 13.7 g/dl (12.0-16.0); Mean Corpuscular HGB Conc 33.2 g/dl (31.0-35.0); Mean Corpuscular Hemoglobin 31.3 pg (27.0-33.0); Mean Corpuscular Volume 94.3 fL (80.0-98.0); Mean Platelet Volume 9.8 fL (9.4-12.3); Platelet Count 442 X10*3/uL (160-400); Red Blood Count 4.38 X10*6/uL (4.20-5.50); Red Cell Distribution Width 13.2 % (11.0-16.0); White Blood Count 15.4 X10*3/uL (4.8-10.8)
[2022-11-18] MEDS: Albuterol/Iprat 2.5/0.5MG 3 ML AMPUL.NEB INHALE ×2 (11:20→19:03)
--- NOTE | 2022-11-18 12:55 | HO.PM.IMPN ---
Subjective Subjective Date of Service: 11/18/22 Interval History: copd excerebation ,pneumonia ,oral thrush and throat pain Review of Systems still sob with minimal exersion, cough throat pain , no fever or chills Physical Exam Vital Signs: Vital Signs: Last Vital Signs Temp 97.9 F 11/18/22 11:28 Pulse 83 11/18/22 11:28 Resp 22 H 11/18/22 11:28 BP 154/74 H 11/18/22 11:28 Pulse Ox 97 11/18/22 11:28 O2 Del Method Nasal Cannula 11/18/22 07:46 O2 Flow Rate 2 11/18/22 07:46 Oxygen Flow Rate 1 11/14/22 23:51 BMI result Body Mass Index 22.9 Appearance: Alert.? Oriented X3.? sob. cvs: rrr, [id number] , no murmur res: air entry slightly improving,has b/l wheezin abd: no rebound or guarding ,nt, bs present. ext pulses present , no cyanosis . neuro: axo3 , nonfocal. Objective Data Active Medications Acetaminophen (Acetaminophen 325 Mg Tablet) 650 mg PO Q6H PRN PRN Reason: Pain, Mild (Pain Scale 1-3) Last Admin: 11/17/22 03:50 Dose: 650 mg Documented By: BIJAL Acetaminophen (Acetaminophen 325 Mg Tablet) 325 mg PO Q4H PRN PRN Reason: Pain, Severe (Pain Scale 7-10) Last Admin: 11/18/22 08:00 Dose: 325 mg Documented By: KAYLIE Acetaminophen/Butalbital/Caffeine (Butalb/Acetamin/Caff 50/325/40 Tablet) 1 tab PO DAILY PRN PRN Reason: Headache Last Admin: 11/18/22 04:26 Dose: 1 tab Documented By: OLGA Albuterol/Ipratropium (Albuterol/Iprat 2.5/0.5mg 3 Ml Ampul.Neb) 3 ml INHALE RQ4H PRN PRN Reason: Shortness of Breath/Wheezing Albuterol/Ipratropium (Albuterol/Iprat 2.5/0.5mg 3 Ml Ampul.Neb) 3 ml INHALE RQ4H WHILE AWAKE RAJNI Last Admin: 11/18/22 11:20 Dose: 3 ml Documented By: HO.BLASCL Alprazolam (Alprazolam 0.25 Mg Tablet) 0.25 mg PO BEDTIME PRN PRN Reason: Anxiety Last Admin: 11/17/22 20:43 Dose: 0.25 mg Documented By: OLGA Amlodipine Besylate (Amlodipine Besylate 10 Mg Tablet) 10 mg PO DAILY [facility]; Protocol Last Admin: 11/18/22 07:59 Dose: 10 mg Documented By: KAYLIE Aspirin (Aspirin Enteric Coated 81 Mg Tablet.) 81 mg PO DAILY [facility] Last Admin: 11/18/22 08:01 Dose: 81 mg Documented By: KAYLIE Benzocaine (Throat Lozenge, Medicated Lozenge) 1 lozenge MUCOUS MEM Q2H [facility] Last Admin: 11/18/22 10:58 Dose: Not Given Documented By: KAYLIE Non-Admin Reason: Patient Refused Benzonatate (Benzonatate 100 Mg Capsule) 100 mg PO TID [facility] Last Admin: 11/18/22 08:01 Dose: 100 mg Documented By: KAYLIE Buspirone HCl (Buspirone Hcl 10 Mg Tablet) 10 mg PO BID [facility] Last Admin: 11/18/22 07:59 Dose: 10 mg Documented By: KAYLIE Carisoprodol (Carisoprodol 350 Mg Tablet) 350 mg PO QID [facility] Last Admin: 11/18/22 07:59 Dose: 350 mg Documented By: KAYLIE Carvedilol (Carvedilol 12.5 Mg Tablet) 12.5 mg PO BID [facility]; Protocol Last Admin: 11/18/22 08:01 Dose: 12.5 mg Documented By: KAYLIE Clopidogrel Bisulfate (Clopidogrel Bisulfate 75 Mg Tablet) 75 mg PO DAILY [facility] Last Admin: 11/18/22 07:59 Dose: 75 mg Documented By: KAYLIE Docusate Sodium (Docusate Sodium 100 Mg Capsule) 100 mg PO DAILY PRN PRN Reason: Constipation Duloxetine HCl (Duloxetine Hcl 60 Mg Capsule.) 60 mg PO DAILY [facility] Last Admin: 11/18/22 08:01 Dose: 60 mg Documented By: KAYLIE Enoxaparin Sodium (Enoxaparin Sodium 40 Mg/0.4 Ml Syringe) 40 mg SUBCUT DAILY [facility] Last Admin: 11/18/22 07:58 Dose: 40 mg Documented By: KAYLIE Fluticasone Propionate (Fluticasone Propionate Nasal 16 Gm [place]) 1 spray NOSTRIL-B BID [facility] Last Admin: 11/18/22 08:19 Dose: 1 spray Documented By: KAYLIE Guaifenesin (Guaifenesin 100 Mg/5 Ml Liquid) 10 ml PO Q6H PRN PRN Reason: Cough Last Admin: 11/17/22 17:38 Dose: 10 ml Documented By: KAYLIE Hydrochlorothiazide (Hydrochlorothiazide 25 Mg Tablet) 25 mg PO DAILY [facility]; Protocol Last Admin: 11/18/22 07:59 Dose: 25 mg Documented By: KAYLIE Hydroxyzine HCl (Hydroxyzine Hcl 25 Mg Tablet) 25 mg PO Q6H PRN PRN Reason: anxiety/restlessness Last Admin: 11/18/22 04:47 Dose: 25 mg Documented By: OLGA Ceftriaxone Sodium 1 gm/ (Sodium Chloride) 50 mls @ 100 mls/hr IV Q24H [facility] Last Infusion: 11/17/22 21:23 Dose: 0 mls/hr Documented By: OLGA Azithromycin 500 mg/ Sodium (Chloride) 250 mls @ 125 mls/hr IV Q24H [facility] Last Infusion: 11/18/22 06:38 Dose: 0 mls/hr Documented By: OLGA Lidocaine (Lidocaine 4 % Patch Adh..Patch) 1 patch TRANSDERMA DAILY [facility]; Protocol Last Admin: 11/18/22 07:58 Dose: 1 patch Documented By: KAYLIE Lidocaine/Diphenhydr/Alum/Mg/Simeth (Mag&Al/Sim/Diphenhyd/Lidocaine 10 Ml Oral.Susp) 10 ml PO Q4H PRN; Protocol PRN Reason: Pain, Mild (Pain Scale 1-3) Methylprednisolone Sodium Succinate (Methylprednisolone Sod Succ 40 Mg/Ml Vial) 40 mg IVPUSH DAILY [facility] Last Admin: 11/18/22 08:01 Dose: 40 mg Documented By: KAYLIE Nitroglycerin (Nitroglycerin 0.4 Mg Tab.Subl) 0.4 mg SUBLINGUAL Q5M PRN PRN Reason: Chest Pain Non-Formulary Medication (Immun Glob G(Igg)-Gly-Iga Ov50 [Cuvitru]) 50 ml SUBCUT Q7D [facility] Nystatin (Nystatin Oral Susp 500,000 Unit/5 Ml Oral.Susp) 500,000 unit PO QID [facility]; Protocol Omeprazole (Omeprazole 20 Mg Capsule.Dr) 20 mg PO DAILY [facility] Last Admin: 11/18/22 08:01 Dose: 20 mg Documented By: KAYLIE Ondansetron HCl (Ondansetron Hcl 4 Mg/2 Ml Vial) 4 mg IVPUSH Q8H PRN PRN Reason: Nausea and Vomiting Last Admin: 11/15/22 10:39 Dose: 4 mg Documented By: TOLU Oxycodone HCl (Oxycodone Hcl Immed Release 5 Mg Tablet) 10 mg PO Q4H PRN PRN Reason: Pain, Severe (Pain Scale 7-10) Last Admin: 11/18/22 08:00 Dose: 10 mg Documented By: KAYLIE Potassium Chloride (Potassium Chloride Er 20 Meq Tab.Er.Prt) 20 meq PO DAILY [facility] Last Admin: 11/18/22 07:59 Dose: 20 meq Documented By: KAYLIE Pregabalin (Pregabalin 150 Mg Capsule) 150 mg PO TID [facility] Last Admin: 11/18/22 08:01 Dose: 150 mg Documented By: KAYLIE Sodium Chloride (0.9 % Sodium Chloride Flush 3 Ml Syringe) 3 ml IVFLUSH QSHIFT [facility] Last Admin: 11/18/22 08:01 Dose: 3 ml Documented By: KAYLIE Vitamin D (Cholecalciferol (Vitamin D3) 25 Mcg Tablet) 100 mcg PO DAILY [facility] Last Admin: 11/18/22 08:00 Dose: 100 mcg Documented By: KAYLIE Labs 11/18/22 08:12 11/16/22 08:43 Labs: Laboratory Results - last 24 hr 11/18/22 08:12 MCV 94.3 MCH 31.3 MCHC 33.2 RDW 13.2 Plt Count 442 H MPV 9.8 Absolute Nucleated RBC 0.000 Nucleated RBC % (auto) 0.0 Assessment and Plan (1) Community acquired pneumonia: Status: Acute (2) Sepsis: Status: Acute (3) Acute respiratory failure with hypoxia: Status: Acute (4) Oral thrush: Status: Acute Plan Hospital day:4 72-year-old female with past medical history of COPD presents to the hospital with increased shortness of breath cough and sputum production found to have pneumonia as well as COPD exacerbation acute hypoxic respiratory failure secondary to acute COPD exacerbation, sepsis and pneumonia, oral thrush leukocytosis,underlying pneumonia as seen on chest x-ray,Blood culture pending shortness of breath with minimal exertion, cough tachycardia improvin, tachypnea improved. strep and legionella antigen ,strep throat ag and cultures. Continue steroids, nebs, antibiotics, oxygen support, cough medication,added loratidine ,also added nystatin for oral thrush. Acute lactic acidosis: Possibly related to nebs use, patient clinically feeling slowly better.? Avoid further trending unless clinical situation changes. Uncontrolled hypertension: sunoptimal Continue metoprolol,amlodipine,added back hctz.? history of peripheral vascular disease continue home Lily ,?? Use Plavix, and aspirin history of CAD- no chest pain ?continue home medications of aspirin, beta-guido, and Plavix as well as statin DVT prophylaxis:? SubQ Lovenox. Inpatient need:acute hypoxic respiratory failure secondary to acute COPD exacerbation, sepsis and pneumonia-need IV antibiotics, nebs, steroids, blood culture also pending. Time Spent With Patient Time: Total time managing care of this patient today ____ minutes. Quality Stroke Does the patient have a stroke diagnosis?: No VTE Prior VTE?: No VTE Risk Level:: Medical - moderate - high VTE Device Contraindication: Treatment Not Indicated VTE Drug Contraindication: Treatment Not Indicated
[2022-11-18] MEDS: Nystatin Oral Susp 500,000 UNIT/5 ML ORAL.SUSP 500000 UNIT PO ×3 (13:21→20:56)
[2022-11-18 13:46] LABS: IDNOW Serial# 6674DD1D; Strep A Nucleic Acid Negative (Negative)
[2022-11-18] MEDS: Mag&Al/Sim/Diphenhyd/Lidocaine 10 ML ORAL.SUSP PO ×2 (15:15→19:41)
[2022-11-18] MEDS: cefTRIAXone sodium 1 GM in 0.9 % Sodium Chloride 50 ML IV (21:25)
[2022-11-18] MEDS: Acetaminophen 325 MG TABLET 650 MG PO (21:45)
[2022-11-18] MEDS: ALPRAZolam 0.25 MG TABLET PO (21:45)
[2022-11-19] VITALS (9 sets, daily range): BP systolic 132–184; BP diastolic 65–89; PULSE 68–98; RESP 16–18; TEMP 36.5–37.1; O2SAT 92–99; BMI 23.2
[2022-11-19] MEDS: 0.9 % Sodium Chloride Flush 3 ML SYRINGE IVFLUSH ×3 (00:58→14:36)
[2022-11-19] MEDS: hydrOXYzine HCL 25 MG TABLET PO (02:18)
[2022-11-19] MEDS: oxyCODONE HCl Immed Release 5 MG TABLET 10 MG PO ×4 (02:18→20:35)
[2022-11-19] MEDS: Mag&Al/Sim/Diphenhyd/Lidocaine 10 ML ORAL.SUSP PO ×2 (02:25→21:04)
[2022-11-19] MEDS: Butalb/Acetamin/Caff 50/325/40 TABLET 1 TAB PO (04:40)
[2022-11-19] MEDS: Azithromycin 500 MG in 0.9 % Sodium Chloride 250 ML 125 MG IV (05:48)
[2022-11-19] MEDS: Albuterol/Iprat 2.5/0.5MG 3 ML AMPUL.NEB INHALE ×3 (08:06→15:14)
[2022-11-19] MEDS: methylPREDNISolone Sod Succ 40 MG/ML VIAL IVPUSH (08:21)
[2022-11-19] MEDS: hydroCHLOROthiazide 25 MG TABLET PO (08:22)
[2022-11-19] MEDS: Omeprazole 20 MG CAPSULE.DR PO (08:23)
[2022-11-19] MEDS: Potassium Chloride ER 20 MEQ TAB.ER.PRT PO (08:23)
[2022-11-19] MEDS: Clopidogrel Bisulfate 75 MG TABLET PO (08:23)
[2022-11-19] MEDS: Aspirin Enteric Coated 81 MG TABLET.DR PO (08:23)
[2022-11-19] MEDS: carvediloL 12.5 MG TABLET PO ×2 (08:23→20:35)
[2022-11-19] MEDS: Pregabalin 150 MG CAPSULE PO ×3 (08:23→20:35)
[2022-11-19] MEDS: DULoxetine HCl 60 MG CAPSULE.DR PO (08:23)
[2022-11-19] MEDS: busPIRone HCl 10 MG TABLET PO ×2 (08:23→20:36)
[2022-11-19] MEDS: Benzonatate 100 MG CAPSULE PO ×3 (08:23→20:35)
[2022-11-19] MEDS: carisoprodoL 350 MG TABLET PO ×4 (08:23→20:35)
[2022-11-19] MEDS: amLODIPine Besylate 10 MG TABLET PO (08:24)
[2022-11-19] MEDS: Cholecalciferol (Vitamin D3) 25 MCG TABLET 100 MCG PO (08:24)
[2022-11-19] MEDS: Nystatin Oral Susp 500,000 UNIT/5 ML ORAL.SUSP 500000 UNIT PO ×4 (08:24→20:36)
[2022-11-19] MEDS: Lidocaine 4 % Patch ADH..PATCH 1 PATCH TRANSDERMA (08:24)
[2022-11-19] MEDS: Enoxaparin Sodium 40 MG/0.4 ML SYRINGE SUBCUT (08:25)
[2022-11-19] MEDS: Fluticasone Propionate Nasal 16 GM SPRAY 1 SPRAY NOSTRIL-B ×2 (08:33→20:40)
[2022-11-19] MEDS: Acetaminophen 325 MG TABLET PO ×3 (11:34→20:34)
[2022-11-19] MEDS: Trolamine Salicylate 10 % Cream 85 GM TUBE 1 APPL TOPICAL ×2 (12:42→20:49)
--- NOTE | 2022-11-19 13:19 | MHC.CM.PN ---
EMR reviewed and per MD rounds, pt not medically cleared for D/C today, she is slowly improving. CM will continue to follow for D/C.
--- NOTE | 2022-11-19 14:13 | P.CDIM_ITS ---
PROVIDER RESPONSE TEXT: To clarify, the appropriate diagnosis supported by the clinical indicators: Acute QUERY TEXT: PHYSICIAN'S DOCUMENTATION REQUEST Date of Query: 11/19/2022 01:21 PM EDT Patient Name: MELISA MANZO Admit Date: 11/15/2022 Dear Chung Trevizo, A review of the medical record indicates additional documentation may be needed. Please review below and update the documentation accordingly. Clinical Indicators: Per ER Physician Documentation 11/15/22: on 1 L oxygen via nasal cannula at baseline presents for evalu ation of shortness of breath Treated with 2-4L oxygen nasal cannula Clarify which of the following accurately represents the acuity of the Respiratory Failure. Possible options might include: Acute Acute on chronic Compensated Other (explain)Clinically unable to determine (explain)Thank you, Nellie Ace RN Use of terms such as suspected, likely, concern for, or probable (associated with a specific diagnosi s that is being evaluated, monitored, or treated as if it exists) are acceptable and can be coded in the inpatient se tting, when documented at the time of discharge. Please use your independent medical judgment in providing your response. THIS QUERY IS PART OF THE PERMANENT MEDICAL RECORD
--- NOTE | 2022-11-19 16:26 | HO.PM.IMPN ---
Subjective Subjective Date of Service: 11/19/22 Interval History: Pneumonia, COPD exacerbation Review of Systems Shortness of breath is improving but not optimal still feels short of breath with exertion and has aggressive cough no fevers or chills Physical Exam Vital Signs: Vital Signs: Last Vital Signs Temp 98.1 F 11/19/22 15:21 Pulse 93 11/19/22 15:21 Resp 16 11/19/22 15:21 BP 184/87 H 11/19/22 15:21 Pulse Ox 99 11/19/22 15:21 O2 Del Method Nasal Cannula 11/19/22 15:21 O2 Flow Rate 2 11/19/22 11:26 Oxygen Flow Rate 1 11/14/22 23:51 BMI result Body Mass Index 23.2 Appearance: Alert.? Oriented X3.? sob. cvs: rrr, [id number] , no murmur res: air entry slightly improving,has b/l wheezin abd: no rebound or guarding ,nt, bs present. ext pulses present , no cyanosis . neuro: axo3 , nonfocal. Objective Data Active Medications Acetaminophen (Acetaminophen 325 Mg Tablet) 650 mg PO Q6H PRN PRN Reason: Pain, Mild (Pain Scale 1-3) Last Admin: 11/18/22 21:45 Dose: 650 mg Documented By: ANDREA Acetaminophen (Acetaminophen 325 Mg Tablet) 325 mg PO Q4H PRN PRN Reason: Pain, Severe (Pain Scale 7-10) Last Admin: 11/19/22 15:50 Dose: 325 mg Documented By: SATISH Acetaminophen/Butalbital/Caffeine (Butalb/Acetamin/Caff 50/325/40 Tablet) 1 tab PO DAILY PRN PRN Reason: Headache Last Admin: 11/19/22 04:40 Dose: 1 tab Documented By: GRACE Albuterol/Ipratropium (Albuterol/Iprat 2.5/0.5mg 3 Ml Ampul.Neb) 3 ml INHALE RQ4H PRN PRN Reason: Shortness of Breath/Wheezing Albuterol/Ipratropium (Albuterol/Iprat 2.5/0.5mg 3 Ml Ampul.Neb) 3 ml INHALE RQ4H WHILE AWAKE [facility] Last Admin: 11/19/22 15:14 Dose: 3 ml Documented By: HO.RONCARR Alprazolam (Alprazolam 0.25 Mg Tablet) 0.25 mg PO BEDTIME PRN PRN Reason: Anxiety Last Admin: 11/18/22 21:45 Dose: 0.25 mg Documented By: ANDREA Amlodipine Besylate (Amlodipine Besylate 10 Mg Tablet) 10 mg PO DAILY [facility]; Protocol Last Admin: 11/19/22 08:24 Dose: 10 mg Documented By: SATISH Aspirin (Aspirin Enteric Coated 81 Mg Tablet.) 81 mg PO DAILY [facility] Last Admin: 11/19/22 08:23 Dose: 81 mg Documented By: SATISH Benzocaine (Throat Lozenge, Medicated Lozenge) 1 lozenge MUCOUS MEM Q2H [facility] Last Admin: 11/19/22 15:44 Dose: Not Given Documented By: SATISH Non-Admin Reason: Patient Refused Benzonatate (Benzonatate 100 Mg Capsule) 100 mg PO TID [facility] Last Admin: 11/19/22 14:35 Dose: 100 mg Documented By: SATISH Buspirone HCl (Buspirone Hcl 10 Mg Tablet) 10 mg PO BID [facility] Last Admin: 11/19/22 08:23 Dose: 10 mg Documented By: SATISH Carisoprodol (Carisoprodol 350 Mg Tablet) 350 mg PO QID [facility] Last Admin: 11/19/22 12:42 Dose: 350 mg Documented By: SATISH Carvedilol (Carvedilol 12.5 Mg Tablet) 12.5 mg PO BID [facility]; Protocol Last Admin: 11/19/22 08:23 Dose: 12.5 mg Documented By: SATISH Clopidogrel Bisulfate (Clopidogrel Bisulfate 75 Mg Tablet) 75 mg PO DAILY [facility] Last Admin: 11/19/22 08:23 Dose: 75 mg Documented By: SATISH Docusate Sodium (Docusate Sodium 100 Mg Capsule) 100 mg PO DAILY PRN PRN Reason: Constipation Duloxetine HCl (Duloxetine Hcl 60 Mg Capsule.) 60 mg PO DAILY [facility] Last Admin: 11/19/22 08:23 Dose: 60 mg Documented By: SATISH Enoxaparin Sodium (Enoxaparin Sodium 40 Mg/0.4 Ml Syringe) 40 mg SUBCUT DAILY [facility] Last Admin: 11/19/22 08:25 Dose: 40 mg Documented By: SATISH Fluticasone Propionate (Fluticasone Propionate Nasal 16 Gm [place]) 1 spray NOSTRIL-B BID [facility] Last Admin: 11/19/22 08:33 Dose: 1 spray Documented By: SATISH Guaifenesin (Guaifenesin 100 Mg/5 Ml Liquid) 10 ml PO Q6H PRN PRN Reason: Cough Last Admin: 11/17/22 17:38 Dose: 10 ml Documented By: KAYLIE Hydrochlorothiazide (Hydrochlorothiazide 25 Mg Tablet) 25 mg PO DAILY [facility]; Protocol Last Admin: 11/19/22 08:22 Dose: 25 mg Documented By: SATISH Hydroxyzine HCl (Hydroxyzine Hcl 25 Mg Tablet) 25 mg PO Q6H PRN PRN Reason: anxiety/restlessness Last Admin: 11/19/22 02:18 Dose: 25 mg Documented By: GRACE Ceftriaxone Sodium 1 gm/ (Sodium Chloride) 50 mls @ 100 mls/hr IV Q24H [facility] Last Infusion: 11/18/22 22:14 Dose: 0 mls/hr Documented By: ANDREA Azithromycin 500 mg/ Sodium (Chloride) 250 mls @ 125 mls/hr IV Q24H [facility] Last Infusion: 11/19/22 08:34 Dose: 0 mls/hr Documented By: SATISH Lidocaine (Lidocaine 4 % Patch Adh..Patch) 1 patch TRANSDERMA DAILY [facility]; Protocol Last Admin: 11/19/22 08:24 Dose: 1 patch Documented By: SATISH Lidocaine/Diphenhydr/Alum/Mg/Simeth (Mag&Al/Sim/Diphenhyd/Lidocaine 10 Ml Oral.Susp) 10 ml PO Q4H PRN; Protocol PRN Reason: Pain, Mild (Pain Scale 1-3) Last Admin: 11/19/22 02:25 Dose: 10 ml Documented By: GRACE Methylprednisolone Sodium Succinate (Methylprednisolone Sod Succ 40 Mg/Ml Vial) 40 mg IVPUSH DAILY [facility] Last Admin: 11/19/22 08:21 Dose: 40 mg Documented By: SATISH Nitroglycerin (Nitroglycerin 0.4 Mg Tab.Subl) 0.4 mg SUBLINGUAL Q5M PRN PRN Reason: Chest Pain Non-Formulary Medication (Immun Glob G(Igg)-Gly-Iga Ov50 [Cuvitru]) 50 ml SUBCUT Q7D [facility] Last Admin: 11/18/22 15:09 Dose: 50 ml Documented By: ANDREA Nystatin (Nystatin Oral Susp 500,000 Unit/5 Ml Oral.Susp) 500,000 unit PO QID [facility]; Protocol Last Admin: 11/19/22 12:42 Dose: 500,000 unit Documented By: SATISH Omeprazole (Omeprazole 20 Mg Capsule.Dr) 20 mg PO DAILY [facility] Last Admin: 11/19/22 08:23 Dose: 20 mg Documented By: SATISH Ondansetron HCl (Ondansetron Hcl 4 Mg/2 Ml Vial) 4 mg IVPUSH Q8H PRN PRN Reason: Nausea and Vomiting Last Admin: 11/15/22 10:39 Dose: 4 mg Documented By: TOLU Oxycodone HCl (Oxycodone Hcl Immed Release 5 Mg Tablet) 10 mg PO Q4H PRN PRN Reason: Pain, Severe (Pain Scale 7-10) Last Admin: 11/19/22 15:55 Dose: 10 mg Documented By: SATISH Potassium Chloride (Potassium Chloride Er 20 Meq Tab.Er.Prt) 20 meq PO DAILY [facility] Last Admin: 11/19/22 08:23 Dose: 20 meq Documented By: SATISH Pregabalin (Pregabalin 150 Mg Capsule) 150 mg PO TID [facility] Last Admin: 11/19/22 14:35 Dose: 150 mg Documented By: SATISH Sodium Chloride (0.9 % Sodium Chloride Flush 3 Ml Syringe) 3 ml IVFLUSH QSHIFT [facility] Last Admin: 11/19/22 14:36 Dose: 3 ml Documented By: SATISH Trolamine Salicylate (Trolamine Salicylate 10 % Cream 85 Gm Tube) 1 appl TOPICAL TID PRN; Protocol PRN Reason: Pain, Mild (Pain Scale 1-3) Last Admin: 11/19/22 12:42 Dose: 1 appl Documented By: SATISH Vitamin D (Cholecalciferol (Vitamin D3) 25 Mcg Tablet) 100 mcg PO DAILY [facility] Last Admin: 11/19/22 08:24 Dose: 100 mcg Documented By: SATISH Labs 11/18/22 08:12 11/16/22 08:43 Assessment and Plan (1) Oral thrush: Status: Acute (2) Sepsis: Status: Acute (3) Community acquired pneumonia: Status: Acute (4) Acute respiratory failure with hypoxia: Status: Acute (5) COPD with acute exacerbation: Status: Acute Plan Hospital day:5 72-year-old female with past medical history of COPD presents to the hospital with increased shortness of breath cough and sputum production found to have pneumonia as well as COPD exacerbation acute hypoxic respiratory failure secondary to sepsis and pneumonia,acute COPD exacerbation, oral thrush leukocytosis,underlying pneumonia as seen on chest x-ray,Blood culture pending shortness of breath with minimal exertion, cough tachycardia improvin, tachypnea improved. strep and legionella antigen ,strep throat ag and cultures. added CXr -to reeval pneumonia Continue steroids, nebs, antibiotics(on cetriaxone /azithromycin start date 11/16/22) oxygen support, cough medication,added loratidine ,also added nystatin for oral thrush. Acute lactic acidosis: Possibly related to nebs use, patient clinically feeling slowly better.? Avoid further trending unless clinical situation changes. Uncontrolled hypertension: sunoptimal Continue metoprolol,amlodipine, hctz.? history of peripheral vascular disease continue home Lily ,?? Use Plavix, and aspirin history of CAD- no chest pain ?continue home medications of aspirin, beta-guido, and Plavix as well as statin DVT prophylaxis:? SubQ Lovenox. Inpatient need:acute hypoxic respiratory failure secondary to acute COPD exacerbation, sepsis and pneumonia-need IV antibiotics, nebs, steroids,respiratory status is not optimal yet. Time Spent With Patient Time: Total time managing care of this patient today ____ minutes. Quality Stroke Does the patient have a stroke diagnosis?: No VTE Prior VTE?: No VTE Risk Level:: Medical - moderate - high VTE Device Contraindication: Treatment Not Indicated VTE Drug Contraindication: Treatment Not Indicated
[2022-11-19] MEDS: cefTRIAXone sodium 1 GM in 0.9 % Sodium Chloride 50 ML IV (23:01)
[2022-11-20] VITALS (9 sets, daily range): BP systolic 129–191; BP diastolic 0–91; PULSE 79–106; RESP 16–20; TEMP 36.2–37; O2SAT 92–97; BMI 22.5
[2022-11-20] MEDS: oxyCODONE HCl Immed Release 5 MG TABLET 10 MG PO ×4 (00:39→21:07)
[2022-11-20] MEDS: 0.9 % Sodium Chloride Flush 3 ML SYRINGE IVFLUSH ×4 (00:39→21:00)
[2022-11-20] MEDS: Acetaminophen 325 MG TABLET PO ×2 (00:40→15:04)
[2022-11-20] MEDS: guaiFENesin 100 MG/5 ML LIQUID 10 ML PO (00:45)
[2022-11-20] MEDS: Butalb/Acetamin/Caff 50/325/40 TABLET 1 TAB PO (03:11)
[2022-11-20] MEDS: Mag&Al/Sim/Diphenhyd/Lidocaine 10 ML ORAL.SUSP PO ×2 (03:12→11:55)
[2022-11-20] MEDS: Trolamine Salicylate 10 % Cream 85 GM TUBE 1 APPL TOPICAL ×3 (03:13→21:08)
[2022-11-20] MEDS: Azithromycin 500 MG in 0.9 % Sodium Chloride 250 ML 125 MG IV (06:04)
[2022-11-20 07:03] LABS: Hematocrit 40.4 % (37.0-47.0); Hemoglobin 13.5 g/dl (12.0-16.0); Mean Corpuscular HGB Conc 33.4 g/dl (31.0-35.0); Mean Corpuscular Hemoglobin 31.1 pg (27.0-33.0); Mean Corpuscular Volume 93.1 fL (80.0-98.0); Mean Platelet Volume 9.8 fL (9.4-12.3); Platelet Count 449 X10*3/uL (160-400); Red Blood Count 4.34 X10*6/uL (4.20-5.50); Red Cell Distribution Width 12.5 % (11.0-16.0); White Blood Count 11.7 X10*3/uL (4.8-10.8)
[2022-11-20 07:35] LABS: Anion Gap 12 (12-20); Blood Urea Nitrogen 13 mg/dL (9-16); Calcium 9.1 mg/dL (8.4-10.2); Carbon Dioxide 33 mmol/L (22-29); Chloride 89 mmol/L (96-108); Creatinine Clr Calc Pharmacy 67.7; Estimated Glomerular Filt Rate > 60; Glucose Random 103 mg/dL (60-115); Potassium 4.3 mmol/L (3.3-5.1); Sodium 130 mmol/L (135-145)
[2022-11-20] MEDS: Albuterol/Iprat 2.5/0.5MG 3 ML AMPUL.NEB INHALE ×3 (07:37→19:32)
[2022-11-20] MEDS: Enoxaparin Sodium 40 MG/0.4 ML SYRINGE SUBCUT (10:30)
[2022-11-20] MEDS: Lidocaine 4 % Patch ADH..PATCH 1 PATCH TRANSDERMA (10:30)
[2022-11-20] MEDS: Pregabalin 150 MG CAPSULE PO ×3 (10:31→20:58)
[2022-11-20] MEDS: Clopidogrel Bisulfate 75 MG TABLET PO (10:31)
[2022-11-20] MEDS: Cholecalciferol (Vitamin D3) 25 MCG TABLET 100 MCG PO (10:32)
[2022-11-20] MEDS: DULoxetine HCl 60 MG CAPSULE.DR PO (10:32)
[2022-11-20] MEDS: Potassium Chloride ER 20 MEQ TAB.ER.PRT PO (10:32)
[2022-11-20] MEDS: Omeprazole 20 MG CAPSULE.DR PO (10:32)
[2022-11-20] MEDS: Nystatin Oral Susp 500,000 UNIT/5 ML ORAL.SUSP 500000 UNIT PO ×4 (10:33→20:58)
[2022-11-20] MEDS: amLODIPine Besylate 10 MG TABLET PO (10:33)
[2022-11-20] MEDS: Acetaminophen 325 MG TABLET 650 MG PO (10:33)
[2022-11-20] MEDS: Benzonatate 100 MG CAPSULE PO ×3 (10:33→20:58)
[2022-11-20] MEDS: Aspirin Enteric Coated 81 MG TABLET.DR PO (10:34)
[2022-11-20] MEDS: hydroCHLOROthiazide 25 MG TABLET PO (10:34)
[2022-11-20] MEDS: methylPREDNISolone Sod Succ 40 MG/ML VIAL IVPUSH (10:34)
[2022-11-20] MEDS: carvediloL 12.5 MG TABLET PO ×2 (10:35→20:58)
[2022-11-20] MEDS: busPIRone HCl 10 MG TABLET PO ×2 (10:35→20:58)
[2022-11-20] MEDS: Fluticasone Propionate Nasal 16 GM SPRAY 1 SPRAY NOSTRIL-B ×2 (10:40→21:07)
--- NOTE | 2022-11-20 20:43 | P.PNIM_ITS ---
Subjective Subjective Date of Service: 11/21/22 Interval History: f/u on sepsis, pna, copd interval history: overall is feeling better Physical Exam Vital Signs: Vital Signs: Last Vital Signs Temp 98.6 F 11/20/22 18:41 Pulse 106 H 11/20/22 19:32 Resp 17 11/20/22 19:32 BP 129/85 11/20/22 18:41 Pulse Ox 92 11/20/22 18:41 O2 Del Method Nasal Cannula 11/20/22 18:41 O2 Flow Rate 2 11/20/22 11:35 Oxygen Flow Rate 1 11/14/22 23:51 BMI result Body Mass Index 22.5 Const: Other: General: AO X 3, no acute distress Resp: CTA bilateral CVS: S1,S2,RRR GI: +BS, NT, no distention Skin: No rash Neuro: motor grossly intact Psych: appropriate affect Objective Data Active Medications Acetaminophen (Acetaminophen 325 Mg Tablet) 650 mg PO Q6H PRN PRN Reason: Pain, Mild (Pain Scale 1-3) Last Admin: 11/20/22 10:33 Dose: 325 mg Documented By: MARILYNN Acetaminophen (Acetaminophen 325 Mg Tablet) 325 mg PO Q4H PRN PRN Reason: Pain, Severe (Pain Scale 7-10) Last Admin: 11/20/22 15:04 Dose: 325 mg Documented By: MARILYNN Acetaminophen/Butalbital/Caffeine (Butalb/Acetamin/Caff 50/325/40 Tablet) 1 tab PO DAILY PRN PRN Reason: Headache Last Admin: 11/20/22 03:11 Dose: 1 tab Documented By: GRACE Albuterol/Ipratropium (Albuterol/Iprat 2.5/0.5mg 3 Ml Ampul.Neb) 3 ml INHALE RQ4H PRN PRN Reason: Shortness of Breath/Wheezing Albuterol/Ipratropium (Albuterol/Iprat 2.5/0.5mg 3 Ml Ampul.Neb) 3 ml INHALE RQ4H WHILE AWAKE [facility] Last Admin: 11/20/22 19:32 Dose: 3 ml Documented By: ANABELLA Amlodipine Besylate (Amlodipine Besylate 10 Mg Tablet) 10 mg PO DAILY [facility]; Protocol Last Admin: 11/20/22 10:33 Dose: 10 mg Documented By: MARILYNN Aspirin (Aspirin Enteric Coated 81 Mg Tablet.) 81 mg PO DAILY [facility] Last Admin: 11/20/22 10:34 Dose: 81 mg Documented By: MARILYNN Benzocaine (Throat Lozenge, Medicated Lozenge) 1 lozenge MUCOUS MEM Q2H [facility] Last Admin: 11/20/22 18:49 Dose: Not Given Documented By: DESIREE Non-Admin Reason: Patient Refused Benzonatate (Benzonatate 100 Mg Capsule) 100 mg PO TID [facility] Last Admin: 11/20/22 15:04 Dose: 100 mg Documented By: MARILYNN Buspirone HCl (Buspirone Hcl 10 Mg Tablet) 10 mg PO BID [facility] Last Admin: 11/20/22 10:35 Dose: 10 mg Documented By: MARILYNN Carvedilol (Carvedilol 12.5 Mg Tablet) 12.5 mg PO BID [facility]; Protocol Last Admin: 11/20/22 10:35 Dose: 12.5 mg Documented By: MARILYNN Clopidogrel Bisulfate (Clopidogrel Bisulfate 75 Mg Tablet) 75 mg PO DAILY [facility] Last Admin: 11/20/22 10:31 Dose: 75 mg Documented By: MARILYNN Docusate Sodium (Docusate Sodium 100 Mg Capsule) 100 mg PO DAILY PRN PRN Reason: Constipation Duloxetine HCl (Duloxetine Hcl 60 Mg Capsule.) 60 mg PO DAILY [facility] Last Admin: 11/20/22 10:32 Dose: 60 mg Documented By: MARILYNN Enoxaparin Sodium (Enoxaparin Sodium 40 Mg/0.4 Ml Syringe) 40 mg SUBCUT DAILY [facility] Last Admin: 11/20/22 10:30 Dose: 40 mg Documented By: MARILYNN Fluticasone Propionate (Fluticasone Propionate Nasal 16 Gm [place]) 1 spray NOSTRIL-B BID [facility] Last Admin: 11/20/22 10:40 Dose: 1 spray Documented By: MARILYNN Guaifenesin (Guaifenesin 100 Mg/5 Ml Liquid) 10 ml PO Q6H PRN PRN Reason: Cough Last Admin: 11/20/22 00:45 Dose: 10 ml Documented By: GRACE Hydrochlorothiazide (Hydrochlorothiazide 25 Mg Tablet) 25 mg PO DAILY [facility]; Protocol Last Admin: 11/20/22 10:34 Dose: 25 mg Documented By: MARILYNN Hydroxyzine HCl (Hydroxyzine Hcl 25 Mg Tablet) 25 mg PO Q6H PRN PRN Reason: anxiety/restlessness Last Admin: 11/19/22 02:18 Dose: 25 mg Documented By: GRACE Ceftriaxone Sodium 1 gm/ (Sodium Chloride) 50 mls @ 100 mls/hr IV Q24H [facility] Last Infusion: 11/19/22 23:50 Dose: 0 mls/hr Documented By: KIP Azithromycin 500 mg/ Sodium (Chloride) 250 mls @ 125 mls/hr IV Q24H [facility] Last Infusion: 11/20/22 10:08 Dose: 0 mls/hr Documented By: MARILYNN Lidocaine (Lidocaine 4 % Patch Adh..Patch) 1 patch TRANSDERMA DAILY [facility]; Protocol Last Admin: 11/20/22 10:30 Dose: 1 patch Documented By: MARILYNN Lidocaine/Diphenhydr/Alum/Mg/Simeth (Mag&Al/Sim/Diphenhyd/Lidocaine 10 Ml Oral.Susp) 10 ml PO Q4H PRN; Protocol PRN Reason: Pain, Mild (Pain Scale 1-3) Last Admin: 11/20/22 11:55 Dose: 10 ml Documented By: MARILYNN Methylprednisolone Sodium Succinate (Methylprednisolone Sod Succ 40 Mg/Ml Vial) 40 mg IVPUSH DAILY [facility] Last Admin: 11/20/22 10:34 Dose: 40 mg Documented By: MARILYNN Nitroglycerin (Nitroglycerin 0.4 Mg Tab.Subl) 0.4 mg SUBLINGUAL Q5M PRN PRN Reason: Chest Pain Non-Formulary Medication (Immun Glob G(Igg)-Gly-Iga Ov50 [Cuvitru]) 50 ml SUBCUT Q7D [facility] Last Admin: 11/18/22 15:09 Dose: 50 ml Documented By: ANDREA Nystatin (Nystatin Oral Susp 500,000 Unit/5 Ml Oral.Susp) 500,000 unit PO QID [facility]; Protocol Last Admin: 11/20/22 16:47 Dose: 500,000 unit Documented By: DESIREE Omeprazole (Omeprazole 20 Mg Capsule.Dr) 20 mg PO DAILY [facility] Last Admin: 11/20/22 10:32 Dose: 20 mg Documented By: MARILYNN Ondansetron HCl (Ondansetron Hcl 4 Mg/2 Ml Vial) 4 mg IVPUSH Q8H PRN PRN Reason: Nausea and Vomiting Last Admin: 11/15/22 10:39 Dose: 4 mg Documented By: TOLU Oxycodone HCl (Oxycodone Hcl Immed Release 5 Mg Tablet) 10 mg PO Q4H PRN PRN Reason: Pain, Severe (Pain Scale 7-10) Last Admin: 11/20/22 15:04 Dose: 10 mg Documented By: MARILYNN Potassium Chloride (Potassium Chloride Er 20 Meq Tab.Er.Prt) 20 meq PO DAILY [facility] Last Admin: 11/20/22 10:32 Dose: 20 meq Documented By: MARILYNN Pregabalin (Pregabalin 150 Mg Capsule) 150 mg PO TID [facility] Last Admin: 11/20/22 15:04 Dose: 150 mg Documented By: MARILYNN Sodium Chloride (0.9 % Sodium Chloride Flush 3 Ml Syringe) 3 ml IVFLUSH QSHIFT [facility] Last Admin: 11/20/22 16:56 Dose: 3 ml Documented By: DESIREE Trolamine Salicylate (Trolamine Salicylate 10 % Cream 85 Gm Tube) 1 appl TOPICAL TID PRN; Protocol PRN Reason: Pain, Mild (Pain Scale 1-3) Last Admin: 11/20/22 11:56 Dose: 1 appl Documented By: MARILYNN Vitamin D (Cholecalciferol (Vitamin D3) 25 Mcg Tablet) 100 mcg PO DAILY [facility] Last Admin: 11/20/22 10:32 Dose: 100 mcg Documented By: MARILYNN Labs 11/20/22 06:21 11/20/22 06:21 Labs: Laboratory Results - last 24 hr 11/20/22 11/20/22 06:21 06:21 MCV 93.1 MCH 31.1 MCHC 33.4 RDW 12.5 Plt Count 449 H MPV 9.8 Absolute Nucleated RBC 0.000 Nucleated RBC % (auto) 0.0 Anion Gap 12 Estim Creat Clear Calc 67.7 Estimated GFR > 60 Random Glucose 103 Calcium 9.1 Microbiology Microbiology Results: Microbiology 11/15/22 01:39 Blood Culture - Final Blood - Venous No growth after 5 days. 11/15/22 01:37 Blood Culture - Final Blood - Venous No growth after 5 days. Assessment and Plan (1) COPD with acute exacerbation: Status: Acute (2) Sepsis: Status: Acute (3) Community acquired pneumonia: Status: Acute (4) Acute respiratory failure with hypoxia: Status: Acute Plan 72-year-old female with past medical history of COPD presents to the hospital with increased shortness of breath cough and sputum production found to have pneumonia as well as COPD exacerbation # acute COPD exacerbation, improved. Wean off O2 to home amount, continue steroid, bronchodilators by Neb # acute hypoxic respiratory failure d/t abvoe--treatment as above # sepsis - secondary to community-acquired pneumonia, POA. Clinically sepsis resolved, continue Abx, and change to PO at dc #Acute lactic acidosis--d/t above, underlying issues addressed #Thrush--oral Diflucan #HTN--controlled on HCTZ, Norvasc # history of peripheral vascular disease - continue Plavix, and aspirin # history of CAD - no chest pain - continue aspirin, beta-guido, and Plavix as well as statin # elevated BNP--noo chf PT eval Need for inaptient: sespsis treatment, copd Time Spent With Patient Time: Total time managing care of this patient today ____ minutes. Quality Stroke Does the patient have a stroke diagnosis?: No VTE Prior VTE?: No VTE Risk Level:: Medical - moderate - high VTE Device Contraindication: Treatment Not Indicated VTE Drug Contraindication: Treatment Not Indicated
[2022-11-20] MEDS: cefTRIAXone sodium 1 GM in 0.9 % Sodium Chloride 50 ML IV (22:32)
[2022-11-21] VITALS (7 sets, daily range): BP systolic 142–170; BP diastolic 72–78; PULSE 81–91; RESP 16–20; TEMP 36.1–36.8; O2SAT 93–96; BMI 21.9
[2022-11-21] MEDS: Butalb/Acetamin/Caff 50/325/40 TABLET 1 TAB PO (02:10)
[2022-11-21] MEDS: guaiFENesin 100 MG/5 ML LIQUID 10 ML PO (02:11)
[2022-11-21] MEDS: Mag&Al/Sim/Diphenhyd/Lidocaine 10 ML ORAL.SUSP PO (02:11)
[2022-11-21] MEDS: Azithromycin 500 MG in 0.9 % Sodium Chloride 250 ML 125 MG IV (05:37)
[2022-11-21] MEDS: oxyCODONE HCl Immed Release 5 MG TABLET 10 MG PO ×2 (05:42→12:01)
[2022-11-21] MEDS: Albuterol/Iprat 2.5/0.5MG 3 ML AMPUL.NEB INHALE ×2 (08:10→11:40)
[2022-11-21] MEDS: Potassium Chloride ER 20 MEQ TAB.ER.PRT PO (08:31)
[2022-11-21] MEDS: Omeprazole 20 MG CAPSULE.DR PO (08:31)
[2022-11-21] MEDS: Cholecalciferol (Vitamin D3) 25 MCG TABLET 100 MCG PO (08:31)
[2022-11-21] MEDS: carvediloL 12.5 MG TABLET PO (08:31)
[2022-11-21] MEDS: Pregabalin 150 MG CAPSULE PO ×2 (08:31→14:20)
[2022-11-21] MEDS: Benzonatate 100 MG CAPSULE PO ×2 (08:31→14:20)
[2022-11-21] MEDS: Clopidogrel Bisulfate 75 MG TABLET PO (08:31)
[2022-11-21] MEDS: 0.9 % Sodium Chloride Flush 3 ML SYRINGE IVFLUSH (08:31)
[2022-11-21] MEDS: DULoxetine HCl 60 MG CAPSULE.DR PO (08:31)
[2022-11-21] MEDS: Enoxaparin Sodium 40 MG/0.4 ML SYRINGE SUBCUT (08:32)
[2022-11-21] MEDS: methylPREDNISolone Sod Succ 40 MG/ML VIAL IVPUSH (08:32)
[2022-11-21] MEDS: Aspirin Enteric Coated 81 MG TABLET.DR PO (08:32)
[2022-11-21] MEDS: hydroCHLOROthiazide 25 MG TABLET PO (08:32)
[2022-11-21] MEDS: amLODIPine Besylate 10 MG TABLET PO (08:32)
[2022-11-21] MEDS: Nystatin Oral Susp 500,000 UNIT/5 ML ORAL.SUSP 500000 UNIT PO ×2 (08:32→13:20)
[2022-11-21] MEDS: busPIRone HCl 10 MG TABLET PO (08:32)
[2022-11-21] MEDS: Fluticasone Propionate Nasal 16 GM SPRAY 1 SPRAY NOSTRIL-B (08:52)
[2022-11-21] MEDS: Lidocaine 4 % Patch ADH..PATCH 1 PATCH TRANSDERMA (08:53)
--- NOTE | 2022-11-21 11:46 | MHC.CM.PN ---
EMR reviewed and per MD rounds, pt medically cleared for D/C home with new VNA. [facility] has accepted pt. Pts can transport her home.
--- NOTE | 2022-11-21 11:49 | PM.DS ---
DS: Providers Provider Date of Service: 11/21/22 Date of admission: 11/15/22 02:34 Primary care physician: Sushil Stewart MD DS: Diagnosis Discharge Diagnosis (1) COPD with acute exacerbation: Status: Acute (2) Sepsis: Status: Acute (3) Community acquired pneumonia: Status: Acute (4) Acute respiratory failure with hypoxia: Status: Acute DS: Summary Hospital Course Hospital Course: Chief Complaint: sob 72-year-old female past medical history of COPD, currently active smoker, GERD, HLD, HTN, chronic back pain presents to the hospital with complaints of cough, shortness of breath, increased sputum production.? Patient reports her symptoms been going on for the past 1 week worsened over the past few days, she has difficulty with minimal activity due to the shortness of breath, denies any orthopnea, no PND, reports no lower extremity edema, no chest pain, no palpitations, felt febrile at home, has significant diaphoresis and chills specially at night, reports no abdominal pain nausea or vomiting, no diarrhea constipation, no urinary symptoms.? No dizziness, no headache or change in vision.? On arrival to the ED patient vitals are significant for heart rate in the 120s to 130s, respiratory rate of 24, blood pressure of 219/99 currently 180s over 80s Labs are significant for WBC count of 19.7, hemoglobin of 13.2, hematocrit 38.1, pH of 7.54, potassium of 2.3, lactic acid of 4.5 improved with IV fluids, BNP of 252, 280 in the past, no history of heart failure, influenza negative, prolactin pending Chest x-ray shows increased interstitial markings edema versus infiltrate cannot be ruled out Patient started on IV antibiotic and will be admitted for further management Hospital course: She presented with shortness of breath and was admitted for exacerbation of copd due to sepsis casued by pneumonia. # acute COPD exacerbation, treated with IV steroid for nearly7 days, bronchodilators by Neb and overall is feeling better, At this point she no longer need steroid which is contributing to thrush, she will continue oxygen at usual amount, and her usual bronchodialtos # acute hypoxic respiratory failure d/t abvoe--treated as above and resolved. # sepsis - secondary to community-acquired pneumonia, POA. Clinically sepsis resolved. She has been treated with IV Ceftriaxone and Azithromycin for 7 days now. She is afebrile, WBC has come down from 15 to 11, no further indication for Abx at this time. #Acute? lactic acidosis caused by sepsis, underlying issues addressed #Thrush--Nystatin, but will treat with oral difflucan for rapid better resolution #HTN--controlled on HCTZ, Norvasc # history of peripheral vascular disease - continue? Plavix, and aspirin # history of CAD - no chest pain - continue? aspirin, beta-guido, and Plavix as well as statin # elevated BNP--noo chf Dispo: assess by PT and recommendation for home with VNS Time Spent with Patient Time attestation: Total time managing care of this patient today ____ minutes. Discharge coordination time: Greater than 30 minutes Quality: Safe Use of Opioids Does Pt have an Active Cancer Diagnosis on the Problem List?: No Quality: Stroke Does the patient have a stroke diagnosis?: No Physical Exam Vital Signs: Vital Signs: Last Vital Signs Temp 97.0 F 11/21/22 07:46 Pulse 91 11/21/22 11:40 Resp 16 11/21/22 11:40 BP 142/72 H 11/21/22 07:46 Pulse Ox 95 11/21/22 07:46 O2 Del Method Nasal Cannula 11/21/22 07:46 O2 Flow Rate 2 11/21/22 07:46 Oxygen Flow Rate 1 11/14/22 23:51 BMI result Body Mass Index 21.9 Discharge Plan Discharge Anticipated Discharge Date/Time: 11/21/22 11:40 Patient Disposition: Home Health Service Discharge Diagnosis: Sepsis, copd exacerbation Referrals: [facility] [Outside] - 1 Week Sushil Stewart MD [Primary Care Provider] - 1 Week Discharge Medications: New fluconazole 100 mg Tablet 100 mg PO DAILY Qty: 9 0RF Continued atorvastatin 20 mg tablet 20 mg PO DAILY alprazolam 0.25 mg tablet 0.25 mg PO BEDTIME PRN (Reason: Anxiety) esomeprazole magnesium 40 mg capsule,delayed release(DR/EC) 40 mg PO DAILY@0630 buspirone 10 mg tablet 10 mg PO BID albuterol sulfate 90 mcg/actuation HFA aerosol inhaler 2 puff inhalation Q4H PRN (Reason: wheezing) fluticasone propionate 50 mcg/actuation spray,suspension 1 spray intranasal BID duloxetine 60 mg capsule,delayed release(DR/EC) 60 mg PO DAILY cholecalciferol (vitamin D3) 50 mcg (2,000 unit) capsule 100 mcg PO DAILY cidsrwtceo-abafyfzddaeut-jxkd 50-300-40 mg capsule 1 cap PO DAILY PRN (Reason: pain) Aimovig Autoinjector 140 mg/mL auto-injector 140 mg subcut Q28D Cuvitru 10 gram/50 mL (20 %) solution 50 ml subcut QWEEK carisoprodol 350 mg tablet 350 mg PO QID amlodipine 5 mg tablet 10 mg PO DAILY potassium chloride [Klor-Con M20] 20 mEq tablet,ER particles/crystals 20 meq PO DAILY oxycodone-acetaminophen 10-325 mg tablet 1 tab PO Q4-6H nitroglycerin 0.4 mg tablet, sublingual 0.4 mg sublingual Q5M PRN (Reason: Chest Pain) Rx Instructions: do not exceed 3 doses/24 hrs hydrochlorothiazide 25 mg tablet 25 mg PO DAILY metoprolol tartrate 25 mg tablet 25 mg PO BID pregabalin 150 mg capsule 150 mg PO TID ocrelizumab 30 mg/mL Solution 600 mg IV [id number] aspirin 81 mg Capsule 81 mg PO DAILY Trelegy Ellipta 100-62.5-25 mcg blister with device 1 ea inhalation DAILY levalbuterol HCl 1.25 mg/0.5 mL solution for nebulization 1.25 mg inhalation TID PRN (Reason: Shortness Of Breath Or Wheezing) clopidogrel 75 mg tablet 75 mg PO DAILY Discharge Orders: Discharge Order (Routine); Ordered 11/21/22 Ordered By: Inderjit Phillips Diet: Advance to usual diet Activity on Discharge: As tolerated Stand Alone Forms: Patient Portal Discharge page Care Plan Goals: Full recovery from COPD exacerbation, sepsis, pneumonia. Health Concerns: COPD with acute hypoxic respiratory failure, pneumonia, sepsis. Thrush Plan of Treatment: You have completed course of antibiotics in the hospital and no longer needs antibiotics at this point. You have completed a course steroid as well Use inhalers as directed Take Diflucan for thrush avoid smoking, Use oxygen as directed and Visiting nurse will assess you at home. Follow up with your provider in a week, call for appointment Assessment: as above
--- NOTE | 2022-11-21 11:56 | P.F2F_ITS ---
Service Date Service Date: 11/21/22 Encounter Date of encounter: 11/21/22 Reasons for Services Signs and symptoms assessed: shortness of breath with minimal effort Reason for longterm: CV/CP assess and/or care and teach disease management Reason for physical therapy: home safety and mobility and therapeutic exercises Homebound: Leaving the home is medically contraindicated at this time without the asist of a device and/or another person due th the listed conditions above and below. Reason homebound: shortness of breath with minimal effort and weakness related to hospital stay Homebound supporting statement: homebound due to deconditioning for hospitalization, shortness of breath with minimal effort and at this point need the assistance of another person. Certification: Based on the above findings, I certify that this patient is confined to the home and needs intermittent longterm care, physical therapy and/or speech therapy, or continues to need occupational therapy. The patient is under my care, and I have initiated the establishment of the plan of care. The patient will be followed by a physician who will periodically review the plan of care. Time Spent With Patient Time: Total time managing care of this patient today ____ minutes.
[2022-11-21] MEDS: Acetaminophen 325 MG TABLET PO (12:01)
[2022-11-21] MEDS: Fluconazole 100 MG TABLET PO (12:01)
[2022-11-23 06:13] LABS: Legionella Ag Urine Not Detected (Not Detected)
== END 2022-11-21 14:46 | disposition home health service (06) | DRG 871 ==
LOC: HO.ED 11-15 01:55 → HO.EDOVER 11-15 02:39 → HO.IMC 11-15 02:46
PROVIDERS: Internal Medicine; Physician Assistant; Admitting Provider Internal Medicine; Emergency Provider Internal Medicine; PCP Internal Medicine; Visit Provider Internal Medicine
DX: A41.9 Sepsis, unspecified organism (principal); J18.9 Pneumonia, unspecified organism; J96.01 Acute respiratory failure with hypoxia; J44.1 Chronic obstructive pulmonary disease with (acute) exacerbation; J44.0 Chronic obstructive pulmonary disease with (acute) lower respiratory infection; I16.9 Hypertensive crisis, unspecified; E87.21 Acute metabolic acidosis; B37.0 Candidal stomatitis; Z99.81 Dependence on supplemental oxygen; E86.0 Dehydration; I73.9 Peripheral vascular disease, unspecified; G35 Multiple sclerosis; I10 Essential (primary) hypertension; F17.210 Nicotine dependence, cigarettes, uncomplicated; Z20.822 Contact with and (suspected) exposure to COVID-19; Z71.6 Tobacco abuse counseling; Z79.51 Long term (current) use of inhaled steroids; Z79.82 Long term (current) use of aspirin; Z79.899 Other long term (current) drug therapy
CPT/HCPCS: 36415; 71045; 71046; 80048; 80053; 82803; 83605; 83735; 83880; 84132; 84145; 84146; 84484; 85025; 85027; 86704; 86706; 86709; 86803; 87040; 87340; 87449; 87502; 87633; 87651; 87899; 93005; 93306; 94640; 97162; 99285; J0456; J0696; J1650; J1940; J2405; J2920; J3475; Q9957

== ENCOUNTER 2023-01-15 18:43 | Emergency (ER) | payer MEDICARE, BC, SELFPAY ==
[2023-01-15 19:53] VITALS: BP 174/71; PULSE 76; RESP 20; TEMP 36.7; O2SAT 97; BMI 20.6
--- NOTE | 2023-01-15 19:55 | ED.WOUNDLAC ---
HPI - Wound/Laceration General Chief Complaint: Wound/Laceration Stated Complaint: finger lac left hand Time Seen by Provider: 01/15/23 21:11 Source: patient, family, RN notes reviewed and old records reviewed Mode of arrival: ambulatory Limitations: no limitations History of Present Illness HPI narrative: 72-year-old female presents for evaluation of a laceration to her left 2nd finger Patient reports that she was opening a new box of knives She accidentally cut her left 2nd finger Unknown last tetanus Bleeding controlled with Steri-Strips She reports that she is on Plavix She has mild, 4/10 pain Related Data Home Medications Medication Instructions Recorded Confirmed albuterol sulfate 90 mcg/actuation 2 puff inhalation Q4H PRN wheezing 11/15/22 11/15/22 aerosol inhaler alprazolam 0.25 mg tablet 0.25 mg PO BEDTIME PRN Anxiety 11/15/22 11/15/22 amlodipine 5 mg tablet 10 mg PO DAILY 11/15/22 11/15/22 aspirin 81 mg capsule 81 mg PO DAILY 11/15/22 11/15/22 atorvastatin 20 mg tablet 20 mg PO DAILY 11/15/22 11/15/22 buspirone 10 mg tablet 10 mg PO BID 11/15/22 11/15/22 yeinrwliec-ccguztxvgaumc-dbmoossh 1 cap PO DAILY PRN pain 11/15/22 11/15/22 50 mg-300 mg-40 mg capsule carisoprodol 350 mg tablet 350 mg PO QID 11/15/22 11/15/22 cholecalciferol (vitamin D3) 50 100 mcg PO DAILY 11/15/22 11/15/22 mcg (2,000 unit) capsule clopidogrel 75 mg tablet 75 mg PO DAILY 11/15/22 11/15/22 duloxetine 60 mg capsule,delayed 60 mg PO DAILY 11/15/22 11/15/22 release erenumab-aooe 140 mg/mL 140 mg subcut Q28D 11/15/22 11/15/22 subcutaneous auto-injector (Aimovig Autoinjector) esomeprazole magnesium 40 mg 40 mg PO DAILY@0630 11/15/22 11/15/22 capsule,delayed release fluticasone fur. 100 mcg-umeclid 1 ea inhalation DAILY 11/15/22 11/15/22 62.5 mcg-vilant 25 mcg inhalat.powder (Trelegy Ellipta) fluticasone propionate 50 1 spray intranasal BID 11/15/22 11/15/22 mcg/actuation nasal spray,suspension hydrochlorothiazide 25 mg tablet 25 mg PO DAILY 11/15/22 11/15/22 immun glob G 10 50 ml subcut QWEEK 11/15/22 11/15/22 gram/50mL(20%)-gly-IgA over 50 mcg/mL subcutaneous suzanna (Cuvitru) levalbuterol HCl 1.25 mg/0.5 mL 1.25 mg inhalation TID PRN 11/15/22 11/15/22 solution for nebulization Shortness Of Breath Or Wheezing metoprolol tartrate 25 mg tablet 25 mg PO BID 11/15/22 11/15/22 nitroglycerin 0.4 mg sublingual 0.4 mg sublingual Q5M PRN Chest 11/15/22 11/15/22 tablet Pain ocrelizumab 30 mg/mL intravenous 600 mg IV [id number] 11/15/22 11/15/22 solution oxycodone-acetaminophen 10 mg-325 1 tab PO Q4-6H 11/15/22 11/15/22 mg tablet potassium chloride 20 mEq 20 meq PO DAILY 11/15/22 11/15/22 tablet,extended release(part/cryst) (Klor-Con M) pregabalin 150 mg capsule 150 mg PO TID 11/15/22 11/15/22 Previous Rx's Medication Instructions Recorded fluconazole 100 mg tablet 100 mg PO DAILY #9 tabs 11/21/22 Allergies Allergy/AdvReac Type Severity Reaction Status Date / Time codeine [CODEINE] Allergy Unknown Hives Verified 11/20/22 08:30 Review of Systems Musculoskeletal: Musculoskeletal: Reports arthralgias Integumentary/Breasts: Skin/Breast: Reports wounds PMFSH Past Medical History Medical History (Updated 01/15/23 @ 21:51 by Zach Veliz) Chronic back pain COPD (chronic obstructive pulmonary disease) GERD (gastroesophageal reflux disease) High cholesterol History of CAD (coronary artery disease) HTN (hypertension) Immune disorder Multiple sclerosis Peripheral vascular disease Surgical History History of angioplasty History of heart artery stent Social History Social History Household Members: Spouse Housing: House Do you presently have visiting nurse or other home services: No Alcohol intake: never Patient Tobacco Use Status: Current everyday Tobacco user Tobacco use type: Cigarette Advance Directives: No Advance Directives Information Provided: No service: No Current occupational status: retired Physical Exam Vital Signs: Vital Signs: Last Vital Signs Temp 98.1 F 01/15/23 19:53 Pulse 76 01/15/23 19:53 Resp 20 01/15/23 19:53 BP 174/71 H 01/15/23 19:53 Pulse Ox 97 01/15/23 19:53 O2 Del Method Room Air 01/15/23 19:53 BMI result Body Mass Index 20.6 Const: General: healthy appearing, comfortable, no acute distress, alert and awake Nutritional Appearance: well nourished Orientation/consciousness: patient oriented x3 HEENT: Head: Yes normocephalic and Yes atraumatic Eyes: Eyelids: Yes eyelids normal Conjunctivae: conjunctivae normal Sclerae: sclerae normal Corneas: corneas normal Pupils: Equal, round and reactive pupils present EOM: EOMs intact bilaterally Neck: Neck: Yes full ROM Resp: Effort & Inspection: normal respiratory effort, able to speak in complete sentences and not labored Skin: Other: Patient has a 3 cm linear, full-thickness laceration to the ventral surface of the left 2nd finger at the PIP joint. General skin exam: elasticity normal Neuro: General: patient oriented x3 Cranial nerves: Yes Equal, round and reactive pupils present and Yes Bilaterally intact EOM present Cognition (Neuro): normal cognition Extrem: Other: Patient has full range of motion of flexion and extension of all digits the left hand including left 2nd finger Course Course Course Narrative: RME - 72 yo female presents to the ER for evaluation of a laceration to the left index finger sustained a few hours ago on new cutting knives at home today. Butterfly strips applied at home with cessation of bleeding. Wound appears to require a few stitches for closure. Has FROM of the finger. Plan: full wound eval, suture repair, tdap Medications Administered Discontinued Medications Generic Name Dose Route Start Last Admin Trade Name Freq PRN Reason Stop Dose Admin Diphtheria/Tetanus/Acell Pertussis 0.5 ml 01/15/23 19:57 01/15/23 20:37 Diphth,Pertus(Acell),Tet Adult 0.5 Ml Syringe IM 01/15/23 19:58 0.5 ml .ONCE ONE Administration Medical Decision Making Medical Decision Making MDM Narrative: See procedure note for wound repair. There is no evidence of tendon injuries the patient has full range of motion. Differential Diagnosis Laceration Skin tear Puncture wound Abrasion Procedures Laceration Laceration 1: Site: hand Side (If applicable): left (2nd finger) Size (cm): 3 Description: linear Depth: simple, single layer Local Anesthetic: lidocaine 1% (Digital block performed) Amount of anesthesia used (mL): 4 Pre-repair: wound explored and irrigated extensively Skin layer closed with: nylon Size (cm): 5-0 Number of sutures: 5 Technique: simple, interrupted Discharge Plan Discharge Clinical Impression: Finger laceration Patient Disposition: Home, Self-Care Instructions: Finger Laceration (ED) Additional Instructions: You had 5 sutures placed today. These can be removed in 7-10 days Keep the area clean and dry Your tetanus was also updated today it is good for 5-10 years Follow-up with your primary doctor Prescriptions: No Action atorvastatin 20 mg tablet 20 mg PO DAILY alprazolam 0.25 mg tablet 0.25 mg PO BEDTIME PRN (Reason: Anxiety) esomeprazole magnesium 40 mg capsule,delayed release(DR/EC) 40 mg PO DAILY@0630 buspirone 10 mg tablet 10 mg PO BID albuterol sulfate 90 mcg/actuation HFA aerosol inhaler 2 puff inhalation Q4H PRN (Reason: wheezing) fluticasone propionate 50 mcg/actuation spray,suspension 1 spray intranasal BID duloxetine 60 mg capsule,delayed release(DR/EC) 60 mg PO DAILY cholecalciferol (vitamin D3) 50 mcg (2,000 unit) capsule 100 mcg PO DAILY ezjzeminpd-gmzejpzcfxkir-sfva 50-300-40 mg capsule 1 cap PO DAILY PRN (Reason: pain) Aimovig Autoinjector 140 mg/mL auto-injector 140 mg subcut Q28D Cuvitru 10 gram/50 mL (20 %) solution 50 ml subcut QWEEK carisoprodol 350 mg tablet 350 mg PO QID amlodipine 5 mg tablet 10 mg PO DAILY potassium chloride [Klor-Con M20] 20 mEq tablet,ER particles/crystals 20 meq PO DAILY oxycodone-acetaminophen 10-325 mg tablet 1 tab PO Q4-6H nitroglycerin 0.4 mg tablet, sublingual 0.4 mg sublingual Q5M PRN (Reason: Chest Pain) Rx Instructions: do not exceed 3 doses/24 hrs hydrochlorothiazide 25 mg tablet 25 mg PO DAILY metoprolol tartrate 25 mg tablet 25 mg PO BID pregabalin 150 mg capsule 150 mg PO TID ocrelizumab 30 mg/mL Solution 600 mg IV [id number] aspirin 81 mg Capsule 81 mg PO DAILY Trelegy Ellipta 100-62.5-25 mcg blister with device 1 ea inhalation DAILY levalbuterol HCl 1.25 mg/0.5 mL solution for nebulization 1.25 mg inhalation TID PRN (Reason: Shortness Of Breath Or Wheezing) clopidogrel 75 mg tablet 75 mg PO DAILY fluconazole 100 mg Tablet 100 mg PO DAILY Qty: 9 0RF Interventions: ED Discharge Assessment Last Done: 01/15/23 21:55 Discharge Date/Time: 01/15/23 21:55
[2023-01-15] MEDS: Diphth,Pertus(ACell),Tet Adult 0.5 ML SYRINGE IM (20:37)
== END 2023-01-15 21:55 | disposition home or self-care (01) ==
PROVIDERS: Emergency Provider Internal Medicine; PCP Internal Medicine
DX: S61.211A Laceration without foreign body of left index finger without damage to nail, initial encounter (principal); W26.0XXA Contact with knife, initial encounter; Y93.89 Activity, other specified; Y92.019 Unspecified place in single-family (private) house as the place of occurrence of the external cause; Y99.9 Unspecified external cause status; I10 Essential (primary) hypertension; E78.5 Hyperlipidemia, unspecified; G35 Multiple sclerosis; F17.210 Nicotine dependence, cigarettes, uncomplicated
CPT/HCPCS: 12001; 90471; 90715; 99283; 99284

== ENCOUNTER 2023-03-07 15:42 | Emergency (ER) | payer MEDICARE, BC, SELFPAY ==
--- NOTE | ~2023-03-07 | XR_ITS ---
EXAMINATION: XR FOOT, RIGHT CLINICAL INFORMATION: Pain first and second phalanx, first MTP joint COMPARISON: None available. TECHNIQUE: AP, lateral, and oblique views of the right foot. FINDINGS: There is no evidence for an acute fracture or dislocation. Some scattered degenerative changes are seen. XR/XR foot RT min 3V IMPRESSION: No acute fracture or dislocation is seen.
--- NOTE | 2023-03-07 16:15 | ED.GENADULT ---
HPI - General Adult General Chief complaint: Extremity Injury, Lower Stated complaint: right foot pain,swollen Time Seen by Provider: 03/07/23 19:32 Source: patient Mode of arrival: ambulatory Limitations: no limitations History of Present Illness HPI narrative: 72-year-old female presents with right foot pain. Patient reports having hit her toes about 1-2 weeks ago. However the past 3-4 days she has had now swelling particularly over her right great toe. The pain is moderate to severe. The patient complains of pain that is worse with ambulation. Does not radiate. There is no numbness or tingling. She has noted some swelling to the extremity. She has never had anything like this before. She denies any fevers or chills. She denies any redness the skin. Related Data Home Medications Medication Instructions Recorded Confirmed albuterol sulfate 90 mcg/actuation 2 puff inhalation Q4H PRN wheezing 11/15/22 11/15/22 aerosol inhaler alprazolam 0.25 mg tablet 0.25 mg PO BEDTIME PRN Anxiety 11/15/22 11/15/22 amlodipine 5 mg tablet 10 mg PO DAILY 11/15/22 11/15/22 aspirin 81 mg capsule 81 mg PO DAILY 11/15/22 11/15/22 atorvastatin 20 mg tablet 20 mg PO DAILY 11/15/22 11/15/22 buspirone 10 mg tablet 10 mg PO BID 11/15/22 11/15/22 kbotvldpsg-oqkuwalhbbjac-ckgijmrv 1 cap PO DAILY PRN pain 11/15/22 11/15/22 50 mg-300 mg-40 mg capsule carisoprodol 350 mg tablet 350 mg PO QID 11/15/22 11/15/22 cholecalciferol (vitamin D3) 50 100 mcg PO DAILY 11/15/22 11/15/22 mcg (2,000 unit) capsule clopidogrel 75 mg tablet 75 mg PO DAILY 11/15/22 11/15/22 duloxetine 60 mg capsule,delayed 60 mg PO DAILY 11/15/22 11/15/22 release erenumab-aooe 140 mg/mL 140 mg subcut Q28D 11/15/22 11/15/22 subcutaneous auto-injector (Aimovig Autoinjector) esomeprazole magnesium 40 mg 40 mg PO DAILY@0630 11/15/22 11/15/22 capsule,delayed release fluticasone fur. 100 mcg-umeclid 1 ea inhalation DAILY 11/15/22 11/15/22 62.5 mcg-vilant 25 mcg inhalat.powder (Trelegy Ellipta) fluticasone propionate 50 1 spray intranasal BID 11/15/22 11/15/22 mcg/actuation nasal spray,suspension hydrochlorothiazide 25 mg tablet 25 mg PO DAILY 11/15/22 11/15/22 immun glob G 10 50 ml subcut QWEEK 11/15/22 11/15/22 gram/50mL(20%)-gly-IgA over 50 mcg/mL subcutaneous suzanna (Cuvitru) levalbuterol HCl 1.25 mg/0.5 mL 1.25 mg inhalation TID PRN 11/15/22 11/15/22 solution for nebulization Shortness Of Breath Or Wheezing metoprolol tartrate 25 mg tablet 25 mg PO BID 11/15/22 11/15/22 nitroglycerin 0.4 mg sublingual 0.4 mg sublingual Q5M PRN Chest 11/15/22 11/15/22 tablet Pain ocrelizumab 30 mg/mL intravenous 600 mg IV [id number] 11/15/22 11/15/22 solution oxycodone-acetaminophen 10 mg-325 1 tab PO Q4-6H 11/15/22 11/15/22 mg tablet potassium chloride 20 mEq 20 meq PO DAILY 11/15/22 11/15/22 tablet,extended release(part/cryst) (Klor-Con M) pregabalin 150 mg capsule 150 mg PO TID 11/15/22 11/15/22 Previous Rx's Medication Instructions Recorded fluconazole 100 mg tablet 100 mg PO DAILY #9 tabs 11/21/22 colchicine (gout) 0.6 mg tablet 0.6 mg PO DAILY #10 tabs 03/07/23 Allergies Allergy/AdvReac Type Severity Reaction Status Date / Time codeine [CODEINE] Allergy Unknown Hives Verified 11/20/22 08:30 Review of Systems Review of Systems: CONSTITUTIONAL: Denies weight loss, fever and chills. HEENT: Denies changes in vision and hearing. RESPIRATORY: Denies SOB and cough. CV: Denies palpitations no CP. GI: Denies abdominal pain, nausea, vomiting and diarrhea. : Denies dysuria and urinary frequency. MSK: + myalgia and joint pain. SKIN: Denies rash and pruritus. NEUROLOGICAL: Denies headache and syncope. PSYCHIATRIC: Denies recent changes in mood. Denies anxiety and depression. All other ROS are negative unless in HPI PMFSH Past Medical History Medical History History of CAD (coronary artery disease) Peripheral vascular disease Chronic back pain GERD (gastroesophageal reflux disease) High cholesterol HTN (hypertension) Immune disorder COPD (chronic obstructive pulmonary disease) Multiple sclerosis Surgical History History of angioplasty History of heart artery stent Social History Social History Household Members: Spouse Housing: House Do you presently have visiting nurse or other home services: No Alcohol intake: never Patient Tobacco Use Status: Current everyday Tobacco user Tobacco use type: Cigarette Advance Directives: No Advance Directives Information Provided: Yes service: No Current occupational status: retired Physical Exam ED Vital Signs: Vital Signs - 24 hr 03/07/23 16:16 Temperature 97.6 F Pulse Rate 91 Respiratory Rate 18 Blood Pressure 171/76 H Pulse Oximetry 94 Oxygen Delivery Method Room Air BMI result Body Mass Index 33.8 GEN: Well developed, no acute distress, alert, oriented HEENT: Normocephalic, atraumatic, normal external ears, nose appears normal Eyes: Normal to appearance Neck: Supple, no lymphadenopathy Respiratory: Talks in complete sentences, no respiratory distress Extremities: No clubbing cyanosis or edema, tenderness the 1st MTP right foot Neurologic: No focal neurologic deficits, cranial nerves 2-12 intact, gait normal Skin: No rash Course Course Course Narrative: This is a rapid medical exam: Additional HPI, ROS, PE not included below will be deferred to primary provider. Patient is a 72-year-old female with history of CAD, PVD, GERD, HTN, COPD, MS presenting to the emergency department with complaint of right foot pain and swelling after stubbing her great and 2nd toes on a wooden chair 4 days ago. Saw PCP today who referred patient to the ED for x-rays. Erythema, swelling and tenderness noted on exam over 1st MTP joint, 2+ PT and DP pulses, cap refill <2 seconds. Plan: x-ray Reevaluation(s) Reevaluation #1: X-ray negative. Suspect gout or pseudogout. Patient is on 2 platelet inhibitors. Patient is not a candidate for NSAIDs. Will treat with colchicine and Tylenol. Lab patient follow-up. There is no indication for arthrocentesis there is no indication to check a uric acid level as this is not a diagnostic criteria is more means of managing chronic gout treatment Time: 19:51 Medical Decision Making Medical Decision Making [facility] Narrative: Patient presents with right great toe pain. Differential diagnosis includes trauma, contusion, gout, pseudogout, inflammatory arthritis. Plan to obtain an x-ray. Will also treat pain. Differential Diagnosis Differential Diagnoses: The differential diagnosis associated with the presentation includes (See above) Independent Interpretation I performed an independent interpretation of an: Plain X-Ray (No acute traumatic injury) Radiology Impression Discussion of test interpretation with radiology: I have reviewed the radiologist's reading. Radiologist Impression: XR/XR foot RT min 3V IMPRESSION: No acute fracture or dislocation is seen. Dictated By: Dick Hamilton MD Signed By: <Electronically signed by Dick Hamilton MD in OV> 03/07/23 [id number] Discharge Plan Discharge Clinical Impression: Podagra Patient Disposition: Home, Self-Care Instructions: Low Purine Diet (ED), Gout (ED) Prescriptions: New colchicine (gout) 0.6 mg tablet 0.6 mg PO DAILY Qty: 10 0RF No Action atorvastatin 20 mg tablet 20 mg PO DAILY alprazolam 0.25 mg tablet 0.25 mg PO BEDTIME PRN (Reason: Anxiety) esomeprazole magnesium 40 mg capsule,delayed release(DR/EC) 40 mg PO DAILY@0630 buspirone 10 mg tablet 10 mg PO BID albuterol sulfate 90 mcg/actuation HFA aerosol inhaler 2 puff inhalation Q4H PRN (Reason: wheezing) fluticasone propionate 50 mcg/actuation spray,suspension 1 spray intranasal BID duloxetine 60 mg capsule,delayed release(DR/EC) 60 mg PO DAILY cholecalciferol (vitamin D3) 50 mcg (2,000 unit) capsule 100 mcg PO DAILY vyjphjptjl-bespctmeiagzm-zcxb 50-300-40 mg capsule 1 cap PO DAILY PRN (Reason: pain) Aimovig Autoinjector 140 mg/mL auto-injector 140 mg subcut Q28D Cuvitru 10 gram/50 mL (20 %) solution 50 ml subcut QWEEK carisoprodol 350 mg tablet 350 mg PO QID amlodipine 5 mg tablet 10 mg PO DAILY potassium chloride [Klor-Con M20] 20 mEq tablet,ER particles/crystals 20 meq PO DAILY oxycodone-acetaminophen 10-325 mg tablet 1 tab PO Q4-6H nitroglycerin 0.4 mg tablet, sublingual 0.4 mg sublingual Q5M PRN (Reason: Chest Pain) Rx Instructions: do not exceed 3 doses/24 hrs hydrochlorothiazide 25 mg tablet 25 mg PO DAILY metoprolol tartrate 25 mg tablet 25 mg PO BID pregabalin 150 mg capsule 150 mg PO TID ocrelizumab 30 mg/mL Solution 600 mg IV [id number] aspirin 81 mg Capsule 81 mg PO DAILY Trelegy Ellipta 100-62.5-25 mcg blister with device 1 ea inhalation DAILY levalbuterol HCl 1.25 mg/0.5 mL solution for nebulization 1.25 mg inhalation TID PRN (Reason: Shortness Of Breath Or Wheezing) clopidogrel 75 mg tablet 75 mg PO DAILY fluconazole 100 mg Tablet 100 mg PO DAILY Qty: 9 0RF Referrals: Sushil Stewart MD [Primary Care Provider] - 1 week
[2023-03-07 16:16] VITALS: BP 171/76; PULSE 91; RESP 18; TEMP 36.4; O2SAT 94; BMI 33.8
[2023-03-07] MEDS: Acetaminophen 325 MG TABLET 975 MG PO (20:15)
[2023-03-07] MEDS: Colchicine 0.6 MG TABLET 1.2 MG PO (20:15)
[2023-03-07 20:25] VITALS: BP 168/78; PULSE 95; RESP 20; O2SAT 95
== END 2023-03-07 20:28 | disposition home or self-care (01) ==
PROVIDERS: Emergency Provider Emergency Medicine; PCP Internal Medicine
DX: M10.9 Gout, unspecified (principal); M79.671 Pain in right foot
CPT/HCPCS: 73630; 99283; 99284

== ENCOUNTER 2023-08-27 17:43 | Inpatient (IN) | payer MEDICARE, BC, SELFPAY ==
--- NOTE | ~2023-08-27 | XR_ITS ---
EXAMINATION: XR CHEST CLINICAL INFORMATION: Cough. Rule out pneumonia. COMPARISON: Previous chest x-ray November 2022 TECHNIQUE: Frontal view of the chest was obtained. FINDINGS: The cardiac and mediastinal contours are stable. There is subsegmental atelectasis at the right lung base. Lungs are otherwise clear. No pleural effusion or pneumothorax. Postsurgical changes to the cervical spine. XR/XR chest 1V IMPRESSION: Subsegmental atelectasis at the right lung base.
--- NOTE | ~2023-08-27 | XR_ITS ---
EXAMINATION: XR CHEST CLINICAL INFORMATION: Respiratory distress. COMPARISON: 08/27/2023 TECHNIQUE: Frontal view of the chest was obtained. FINDINGS: The cardiomediastinal silhouette is stable. There is pulmonary vascular congestion, diffuse increased markings and diffuse faint lung opacities. There are no definitive significant pleural effusions. The bony structures and soft tissues are unremarkable. XR/XR chest 1V IMPRESSION: Pulmonary vascular congestion, diffuse increased markings and diffuse faint lung opacities. Consider interstitial and early pulmonary edema.
[2023-08-27 19:02] VITALS: BP 127/76; PULSE 101; RESP 20; TEMP 37.3; O2SAT 95; BMI 24.6
--- NOTE | 2023-08-27 19:09 | ECG_ITS ---
Test Reason : SOB Blood Pressure : / mmHG Vent. Rate : 102 BPM Atrial Rate : 102 BPM P-R Int : 132 ms QRS Dur : 080 ms QT Int : 324 ms P-R-T Axes : 067 -40 022 degrees QTc Int : 422 ms Sinus tachycardia Left axis deviation Inferior infarct , age undetermined Abnormal ECG When compared with ECG of 15-NOV-2022 01:02, ST elevation has replaced ST depression in Anterolateral leads Nonspecific T wave abnormality now evident in Inferior leads Referred By: Lance Conrad Electronically Signed By:PARAM CASTELAN MD
--- NOTE | 2023-08-27 19:11 | ED.GENADULT ---
HPI - General Adult General Chief complaint: Upper Respiratory Symptoms Stated complaint: diff breathing fever cough Time Seen by Provider: 08/27/23 20:54 Source: patient Mode of arrival: ambulatory Limitations: no limitations History of Present Illness HPI narrative: Patient comes to the emergency room complaining of shortness of breath, cough, fever for 5-6 days. Patient states that she usually uses 2 L of oxygen at home, no using up to 3-4 L. patient states that she has back pain and chest pain only when she coughs, otherwise no chest pain. Related Data Home Medications Medication Instructions Recorded Confirmed albuterol sulfate 90 mcg/actuation 2 puff inhalation Q4H PRN wheezing 11/15/22 08/28/23 aerosol inhaler amlodipine 5 mg tablet 10 mg PO DAILY 11/15/22 11/15/22 aspirin 81 mg capsule 81 mg PO DAILY 11/15/22 08/28/23 buspirone 10 mg tablet 10 mg PO BID 11/15/22 08/28/23 zfhmuzuuex-qirbgchhvyten-wcwlquyc 1 cap PO DAILY PRN Headache 11/15/22 08/28/23 50 mg-300 mg-40 mg capsule cholecalciferol (vitamin D3) 50 100 mcg PO DAILY 11/15/22 08/28/23 mcg (2,000 unit) capsule clopidogrel 75 mg tablet 75 mg PO DAILY 11/15/22 08/28/23 duloxetine 60 mg capsule,delayed 60 mg PO DAILY 11/15/22 08/28/23 release erenumab-aooe 140 mg/mL 140 mg subcut Q28D 11/15/22 08/28/23 subcutaneous auto-injector (Aimovig Autoinjector) esomeprazole magnesium 40 mg 40 mg PO DAILY@0630 11/15/22 08/28/23 capsule,delayed release fluticasone fur. 100 mcg-umeclid 1 ea inhalation DAILY 11/15/22 08/28/23 62.5 mcg-vilant 25 mcg inhalat.powder (Trelegy Ellipta) fluticasone propionate 50 1 spray intranasal BID PRN 11/15/22 08/28/23 mcg/actuation nasal allergies spray,suspension hydrochlorothiazide 25 mg tablet 25 mg PO DAILY 11/15/22 08/28/23 immun glob G 10 50 ml subcut QWEEK 11/15/22 08/28/23 gram/50mL(20%)-gly-IgA over 50 mcg/mL subcutaneous suzanna (Cuvitru) levalbuterol HCl 1.25 mg/0.5 mL 1.25 mg inhalation TID PRN 11/15/22 08/28/23 solution for nebulization Shortness Of Breath Or Wheezing metoprolol tartrate 25 mg tablet 25 mg PO BID 11/15/22 08/28/23 nitroglycerin 0.4 mg sublingual 0.4 mg sublingual Q5M PRN Chest 11/15/22 08/28/23 tablet Pain ocrelizumab 30 mg/mL intravenous 600 mg IV [id number] 11/15/22 08/28/23 solution oxycodone-acetaminophen 10 mg-325 1 tab PO Q4-6H PRN Pain (Scale 11/15/22 08/27/23 mg tablet Score 4-6) potassium chloride 20 mEq 20 meq PO DAILY 11/15/22 08/28/23 tablet,extended release(part/cryst) (Yessi-Con M) pregabalin 150 mg capsule 150 mg PO TID 11/15/22 08/28/23 atorvastatin 40 mg tablet 40 mg PO BEDTIME 08/28/23 08/28/23 Allergies Allergy/AdvReac Type Severity Reaction Status Date / Time codeine [CODEINE] Allergy Unknown Hives Verified 08/27/23 19:09 Review of Systems Review of Systems: Constitutional : No Weight loss, No Fever, No Chills, No Night Sweats, No Fatigue, No Malaise ENT/Mouth : No Hearing loss, No Ear Pain, No Nasal Congestion, No Sinus Pain, No Hoarseness, No sore throat, No Rhinorrhea, No Swallowing Difficulty Eyes: No Eye Pain, No Swelling, No Redness, No Foreign Body, No Discharge, No Vision Changes Cardiovascular : Complaining of chest wall with coughing only,, No SOB, No Dyspnea on Exertion, No Orthopnea, No Edema, No Palpitations Respiratory : No Cough, No Sputum, complaining of acute on chronic wheezing Gastrointestinal : No Nausea, No Vomiting, No Diarrhea, No Constipation, No abdominal Pain, No Hematochezia, No Melena Genitourinary : no irregular bleeding, No Dysuria, No Urinary Frequency, No Hematuria, No Urinary Incontinence, No Urgency, No Flank Pain, No Urinary Flow Changes, No Hesitancy Musculoskeletal : No joint pain, No Myalgias, No Joint Swelling Skin : No Skin Lesions, No rash Neuro : No Weakness, No Numbness, No Paresthesias, No Loss of Consciousness, No Dizziness, No Headache Psych : No Anxiety/Panic, No Depression, No SI/HI/AH/VH, No Social Issues, Heme/Lymph: No Bruising, No Bleeding,No Lymphadenopathy Endocrine : No Polyuria, No Polydipsia, No Temperature Intolerance [facility] Past Medical History Medical History History of CAD (coronary artery disease) Peripheral vascular disease Chronic back pain GERD (gastroesophageal reflux disease) High cholesterol HTN (hypertension) Immune disorder COPD (chronic obstructive pulmonary disease) Multiple sclerosis Surgical History History of angioplasty History of heart artery stent Social History Social History Household Members: Spouse Housing: House Do you presently have visiting nurse or other home services: No Alcohol intake: never Patient Tobacco Use Status: Current everyday Tobacco user Tobacco use type: Cigarette Smoked in Last 30 Days: Yes Use of substances other than those prescribed or required for medical reasons: No Advance Directives: Yes Advance Directives on File: Yes Advance Directives Date on File: 11/22/22 service: No Current occupational status: retired Physical Exam ED Vital Signs: Vital Signs - 24 hr 08/27/23 19:02 08/27/23 20:43 08/27/23 20:51 Temperature 99.2 F 98.4 F Pulse Rate 101 H 107 H 104 H Respiratory Rate 20 32 H 20 Blood Pressure 127/76 144/83 H Pulse Oximetry 95 96 Oxygen Delivery Method Nasal Cannula Nasal Cannula Oxygen Flow Rate 2 BMI result Body Mass Index 24.6 Const Other: Appearance: Alert. Oriented X3. No acute distress. Eyes: Pupils equal, round and reactive to light. ENT: Pharynx normal. Neck: Normal inspection. Neck supple. No lymph nodes noted. No crepitus CVS: Normal heart rate and rhythm. Pulses normal. Normal S1 and S2 Respiratory: No respiratory distress. Bilateral wheezing, bilateral rales, no crackles Abdomen: Soft and nontender. No rigidity. No distention. Skin: Skin warm and dry. Normal skin color. Normal skin turgor. Extremities: No lower extremity edema. No Lacerations. No Rash Neuro: Oriented X 3. No motor deficit. No sensory deficit. Moving all extremities. No slurred speech. CN 2 through 12 grossly intact Psych: calm, cooperative, normal affect Course Course Course Narrative: RMAnjelica: 72-year-old female history of COPD presents to ED for cough, green phlegm, SOB, and wheezing. labs, EkG, and bronchodilator ordered Medications Administered Generic Name Dose Route Start Last Admin Trade Name Freq PRN Reason Stop Dose Admin Albuterol/Ipratropium 3 ml 08/28/23 08:00 08/28/23 11:07 Albuterol/Iprat 2.5/0.5mg 3 Ml Ampul.Neb INHALE 3 ml RQ4H WHILE AWAKE RAJNI Administration Heparin Sodium/Sodium Chloride 25,000 unit in 250 mls @ 0 mls/hr 08/27/23 23:30 08/28/23 00:23 Heparin Sodium,Porcine/1/2ns IVCONT 14 units/kg/hr .Q0M RJANI 8.26 mls/hr Administration Protocol Per Protocol Azithromycin 500 mg/ Sodium 250 mls @ 125 mls/hr 08/27/23 23:30 08/28/23 02:21 Chloride IV Infused Q24H RAJNI Infusion Remdesivir 200 mg/ Sodium 210 mls @ 105 mls/hr 08/28/23 13:00 08/28/23 13:05 Chloride IV 08/28/23 14:59 105 mls/hr ONCE ONE Administration Melatonin 6 mg 08/27/23 22:42 08/28/23 00:37 Melatonin 3 Mg Tablet PO 6 mg BEDTIME PRN Administration Insomnia Methylprednisolone Sodium Succinate 40 mg 08/28/23 07:00 08/28/23 07:20 Methylprednisolone Sod Succ 40 Mg/Ml Vial IVPUSH 40 mg Q12H RAJNI Administration Nicotine 14 mg 08/27/23 23:30 08/28/23 07:19 Nicotine 14 Mg Patch.Td24 TRANSDERMA 14 mg DAILY RAJNI Administration Oxycodone HCl 10 mg 08/27/23 23:23 08/28/23 07:20 Oxycodone Hcl Immed Release 5 Mg Tablet PO 10 mg Q6H PRN Administration Pain, Severe (Pain Scale 7-10) Discontinued Medications Generic Name Dose Route Start Last Admin Trade Name Kurt PRN Reason Stop Dose Admin Aspirin 81 mg 08/28/23 00:32 08/28/23 00:38 Aspirin Enteric Coated 81 Mg Tablet.Dr RUIZ 08/28/23 00:33 81 mg ONCE ONE Administration Albuterol Sulfate 5 mg/ 0 mg 08/27/23 20:38 08/27/23 20:48 Albuterol/Ipratropium 3 ml INHALE 08/27/23 20:39 2.5 each ONCE ONE Administration Heparin Sodium (Porcine) 4,700 unit 08/27/23 23:58 08/28/23 00:10 Heparin Sodium,Porcine 5,000 Unit/Ml Vial 80 unit/kg (4700 unit) 08/27/23 23:59 4,700 unit IVPUSH Administration ONCE ONE Ceftriaxone Sodium 1 gm/ 50 mls @ 100 mls/hr 08/27/23 22:24 08/27/23 23:21 Sodium Chloride IV 08/27/23 22:53 Infused ONCE ONE Infusion Sodium Chloride 1,000 mls @ 999 mls/hr 08/27/23 22:25 08/27/23 23:52 Ns IVCONT 08/27/23 23:25 Infused .Q1H1M ONE Infusion Methylprednisolone Sodium Succinate 125 mg 08/27/23 22:24 08/27/23 22:43 Methylprednisolone Sod Succ 125 Mg/2 Ml Vial IVPUSH 08/27/23 22:25 125 mg ONCE ONE Administration Medical Decision Making Medical Decision Making MDM Narrative: -my interpretation of labs: White blood cell count 11.4, chronic. INR normal,, normal pCO2 normal chemistry, glucose slightly elevated 178. Patient's BNP is 880, patient has no previous history of CHF. Troponin 1. Two thousand six hundred forty-one, troponin 2. Two thousand one hundred twenty-seven. COVID positive -my interpretation of EKG: Sinus tachycardia, heart rate 102, nonspecific ST elevations in V1 and V2 less than 1 mm and no T-wave inversions, QTC 422. -my interpretation of chest x-ray: No pneumonia, hyperinflated lungs -patient denies any chest pain, only hurts her chest and back simultaneously when she coughs violently. -I discussed the patient with Dr. Gomez from Cardiology, we will go ahead and start heparin. -I also discussed the patient with Dr. Means, patient being admitted. Differential Diagnosis Differential Diagnoses: The differential diagnosis associated with the presentation includes (COVID positive, demand ischemia, NSTEMI) Admission/Observation Consideration of admission/observation: Escalation of care including admission/observation considered Consult Healthcare Provider Management of the patient was discussed with: Hospitalist and Political Aide Lab Data MDM Lab Attestation statement: I reviewed the patient's lab results. 08/28/23 06:05 08/28/23 06:05 Labs: Lab Results 08/27/23 08/27/23 Range/Units 19:33 21:48 WBC 11.4 H (4.8-10.8) X10*3/uL RBC 4.84 (4.20-5.50) X10*6/uL Hgb 15.0 (12.0-16.0) g/dl Hct 44.7 (37.0-47.0) % MCV 92.4 (80.0-98.0) fL MCH 31.0 (27.0-33.0) pg MCHC 33.6 (31.0-35.0) g/dl RDW 13.1 (11.0-16.0) % Plt Count 217 D (160-400) X10*3/uL MPV 10.6 (9.4-12.3) fL Immature Gran % (Auto) 0.3 (0.0-0.4) % Neut % (Auto) 89.7 H (45-73) % Lymph % (Auto) 6.5 L (20-40) % [place] % (Auto) 3.3 (2-11) % Eos % (Auto) 0.0 (0-4) % Baso % (Auto) 0.2 (0-2) % Lymph # (Auto) 0.7 L (1.2-4.9) X10*3/uL [place] # (Auto) 0.4 (0.1-1.2) X10*3/uL Eos # (Auto) 0.0 (0.0-0.4) X10*3/uL Baso # (Auto) 0.0 (0.0-0.2) X10*3/uL Abs Immat Gran (auto) 0.03 (0.00-0.03) X10*3/uL Absolute Neuts (auto) 10.2 H (2.0-8.3) x10*3/uL Absolute Nucleated RBC 0.000 (0.0-0.012) X10*3/uL Nucleated RBC % (auto) 0.0 (0.0-0.2) /100WBC PT 11.2 (11.1-13.3) SEC INR 0.9 (0.9-1.1) APTT 31.5 (26.0-36.8) SEC Sodium 140 (135-145) mmol/L Potassium 3.9 (3.3-5.1) mmol/L Chloride 100 (96-108) mmol/L Carbon Dioxide 28 (22-29) mmol/L Anion Gap 16 (12-20) BUN 9 (9-16) mg/dL Creatinine 0.79 (0.5-1.4) mg/dL Estim Creat Clear Calc 53.9 Estimated GFR > 60 Random Glucose 178 H (60-115) mg/dL Lactic Acid 1.7 (0.5-2.0) mmol/L Calcium 9.7 D (8.4-10.2) mg/dL Total Bilirubin 0.2 (0.0-1.0) mg/dL AST 23 (5-31) U/L ALT 11 (0-31) U/L Alkaline Phosphatase 111 (39-117) U/L Troponin I High Sens 2640.6 H* D 2126.8 H* (<3.5-17.0) ng/L B-Natriuretic Peptide 880 H (<100) pg/mL Total Protein 7.8 (6.5-8.0) g/dL Albumin 4.5 (3.5-5.0) g/dL Influenza Type A (PCR) NEGATIVE (Negative) Influenza Type B (PCR) NEGATIVE (Negative) RSV RNA Qual (PCR) NEGATIVE (Negative) SARS-CoV-2 RNA (RT-PCR) POSITIVE A (Negative) Independent Interpretation I performed an independent interpretation of an: EKG and Plain X-Ray Radiology Impression Discussion of test interpretation with radiology: I have reviewed the radiologist's reading. Radiologist Impression: The cardiac and mediastinal contours are stable. There is subsegmental atelectasis at the right lung base. Lungs are otherwise clear. No pleural effusion or pneumothorax. Postsurgical changes to the cervical spine. XR/XR chest 1V IMPRESSION: Subsegmental atelectasis at the right lung base. Independent Historian Clinical information obtained from an independent historian. History obtained from or confirmed by: Spouse External Record Review External record reviewed: Inpatient record (Previous admissions) Chronic Conditions Patient?s care impacted by: Other (COPD) Critical Care Time Critical Care Time Critical Care Time: Yes Total Critical Care Time: 75 Attestation: I have personally provided critical care time. Time includes review of lab data, radiology results, discussion with consultants, and monitoring for potential decompensation. Intervention performed as documented. Discharge Plan Discharge Clinical Impression: COVID, Demand ischemia, CHF (congestive heart failure) Patient Disposition: Admitted As Inpatient
[2023-08-27 19:42] LABS: MANUAL DIFF FLAG NO
[2023-08-27 19:57] LABS: Lactic Acid 1.7 mmol/L (0.5-2.0)
[2023-08-27 20:00] LABS: Basophils Percent Auto 0.2 % (0-2); Hematocrit 44.7 % (37.0-47.0); Imm Gran Abs Auto 0.03 X10*3/uL (0.00-0.03); Imm Gran Pct Auto 0.3 % (0.0-0.4); Lymphocytes Absolute Auto 0.7 X10*3/uL (1.2-4.9); Lymphocytes Percent Auto 6.5 % (20-40); Mean Corpuscular HGB Conc 33.6 g/dl (31.0-35.0); Mean Corpuscular Volume 92.4 fL (80.0-98.0); Mean Platelet Volume 10.6 fL (9.4-12.3); Monocytes Absolute Auto 0.4 X10*3/uL (0.1-1.2); Monocytes Percent Auto 3.3 % (2-11); Neutrophils Absolute Auto 10.2 x10*3/uL (2.0-8.3); Neutrophils Percent Auto 89.7 % (45-73); Platelet Count 217 X10*3/uL (160-400); Red Blood Count 4.84 X10*6/uL (4.20-5.50); Red Cell Distribution Width 13.1 % (11.0-16.0); White Blood Count 11.4 X10*3/uL (4.8-10.8)
[2023-08-27 20:02] LABS: Alanine Aminotransferase 11 U/L (0-31); Albumin Level 4.5 g/dL (3.5-5.0); Alkaline Phosphatase 111 U/L (39-117); Anion Gap 16 (12-20); Aspartate Amino Transferase 23 U/L (5-31); Bilirubin Total 0.2 mg/dL (0.0-1.0); Blood Urea Nitrogen 9 mg/dL (9-16); Calcium 9.7 mg/dL (8.4-10.2); Carbon Dioxide 28 mmol/L (22-29); Chloride 100 mmol/L (96-108); Creatinine Clr Calc Pharmacy 53.9; Estimated Glomerular Filt Rate > 60; Glucose Random 178 mg/dL (60-115); Potassium 3.9 mmol/L (3.3-5.1); Sodium 140 mmol/L (135-145); Total Protein 7.8 g/dL (6.5-8.0)
[2023-08-27 20:07] LABS: B Type Natriuretic Peptide 880 pg/mL (<100)
[2023-08-27 20:08] LABS: INTERNATIONAL NORM RATIO 0.9 (0.9-1.1); Prothrombin Time 11.2 SEC (11.1-13.3)
[2023-08-27 20:10] LABS: Partial Thromboplastin Time 31.5 SEC (26.0-36.8)
[2023-08-27 20:24] LABS: Influenza A PCR NEGATIVE (Negative); Influenza B PCR NEGATIVE (Negative); Resp Syncy Virus RNA Qual PCR NEGATIVE (Negative); SARS COV2 PCR INHOUSE POSITIVE (Negative)
[2023-08-27 20:43] VITALS: BP 144/83; PULSE 107; RESP 32; TEMP 36.9; O2SAT 96
[2023-08-27] MEDS: Albuterol Sulfate 5 MG, Albuterol/Iprat 2.5/0.5MG 3 ML 3 ML INHALE (20:48)
[2023-08-27 20:51] VITALS: PULSE 104; RESP 20; O2SAT 97
[2023-08-27 22:21] LABS: Troponin-I High Sensitivity 2126.8 ng/L (<3.5-17.0)
[2023-08-27] MEDS: cefTRIAXone sodium 1 GM in 0.9 % Sodium Chloride 50 ML IV (22:43)
[2023-08-27] MEDS: methylPREDNISolone Sod Succ 125 MG/2 ML VIAL IVPUSH (22:43)
[2023-08-27] MEDS: 0.9 % Sodium Chloride 1,000 ML 999 ML IVCONT (22:44)
--- NOTE | 2023-08-27 22:44 | PM.IMHP ---
History of Present Illness Date of Service: 08/27/23 Chief Complaint: Cough, wheezing This is a 72-year-old female with pertinent history of chronic hypoxemic respiratory failure due to COPD on 2 L baseline supplemental oxygen, mood disorder, essential hypertension, chronic opioid use, multiple sclerosis, tobacco use disorder who presents to the emergency department for evaluation of cough, shortness of breath and wheezing. Patient states that her symptoms started 5 days prior to presentation. She has been feeling unwell with generalized malaise. No sick contacts. Patient soon developed cough with purulent sputum production. Also has been having chills and shortness of breath which is worse with exertion. Endorses associated wheezing. Patient states she tried her home inhaler but without any relief. Continues to smoke cigarettes. No documented fever, chest discomfort, palpitations, abdominal pain, changes in urinary or bowel habits. In the emergency department, patient with continued wheezing. Troponin was found to be elevated. Cardiology was consulted who recommended heparin drip and admission. Review of Systems Constitutional: Constitutional: Reports chills, Reports lethargy, Reports malaise, Reports poor appetite and Reports weakness Cardiovascular: Cardiovascular: Reports dyspnea on exertion Respiratory: Respiratory: Reports cough, Reports dyspnea on exertion and Reports wheezing Neurologic: Reports weakness Allergic/Immunologic: Allergic/Immunologic: Reports wheezing [facility] Medical History History of CAD (coronary artery disease) Peripheral vascular disease Chronic back pain GERD (gastroesophageal reflux disease) High cholesterol HTN (hypertension) Immune disorder COPD (chronic obstructive pulmonary disease) Multiple sclerosis Pertinent family history: No family history of early CAD Surgical History History of angioplasty History of heart artery stent Social History Household Members: Spouse Housing: House Do you presently have visiting nurse or other home services: No Alcohol intake: never Patient Tobacco Use Status: Current everyday Tobacco user Tobacco use type: Cigarette Advance Directives Date on File: 11/22/22 service: No Current occupational status: retired Meds Allergies Allergy/AdvReac Type Severity Reaction Status Date / Time codeine [CODEINE] Allergy Unknown Hives Verified 08/27/23 19:09 Active Medications: Current Medications Ceftriaxone Sodium 1 gm/ (Sodium Chloride) 50 mls @ 100 mls/hr IV ONCE ONE Stop: 08/27/23 22:53 Last Admin: 08/27/23 22:43 Dose: 100 mls/hr Sodium Chloride (Ns) 1,000 mls @ 999 mls/hr IVCONT .Q1H1M ONE Stop: 08/27/23 23:25 Last Admin: 08/27/23 22:44 Dose: 999 mls/hr Home Medications Medication Instructions Recorded Confirmed Last Taken Type albuterol sulfate 90 mcg/actuation 2 puff inhalation Q4H PRN wheezing 11/15/22 11/15/22 Unknown History aerosol inhaler alprazolam 0.25 mg tablet 0.25 mg PO BEDTIME PRN Anxiety 11/15/22 11/15/22 Unknown History amlodipine 5 mg tablet 10 mg PO DAILY 11/15/22 11/15/22 2 Days Ago History ~11/13/22 aspirin 81 mg capsule 81 mg PO DAILY 11/15/22 11/15/22 2 Days Ago History ~11/13/22 atorvastatin 20 mg tablet 20 mg PO DAILY 11/15/22 11/15/22 2 Days Ago History ~11/13/22 buspirone 10 mg tablet 10 mg PO BID 11/15/22 11/15/22 2 Days Ago History ~11/13/22 clvqfyorda-oqurccvygpdxm-xnogbggd 1 cap PO DAILY PRN pain 11/15/22 11/15/22 Unknown History 50 mg-300 mg-40 mg capsule carisoprodol 350 mg tablet 350 mg PO QID 11/15/22 11/15/22 2 Days Ago History ~11/13/22 cholecalciferol (vitamin D3) 50 100 mcg PO DAILY 11/15/22 11/15/22 2 Days Ago History mcg (2,000 unit) capsule ~11/13/22 clopidogrel 75 mg tablet 75 mg PO DAILY 11/15/22 11/15/22 Unknown History duloxetine 60 mg capsule,delayed 60 mg PO DAILY 11/15/22 11/15/22 2 Days Ago History release ~11/13/22 erenumab-aooe 140 mg/mL 140 mg subcut Q28D 11/15/22 11/15/22 3 Weeks Ago History subcutaneous auto-injector ~10/25/22 (Aimovig Autoinjector) esomeprazole magnesium 40 mg 40 mg PO DAILY@0630 11/15/22 11/15/22 2 Days Ago History capsule,delayed release ~11/13/22 fluticasone fur. 100 mcg-umeclid 1 ea inhalation DAILY 11/15/22 11/15/22 2 Days Ago History 62.5 mcg-vilant 25 mcg ~11/13/22 inhalat.powder (Trelegy Ellipta) fluticasone propionate 50 1 spray intranasal BID 11/15/22 11/15/22 2 Days Ago History mcg/actuation nasal ~11/13/22 spray,suspension hydrochlorothiazide 25 mg tablet 25 mg PO DAILY 11/15/22 11/15/22 2 Days Ago History ~11/13/22 immun glob G 10 50 ml subcut QWEEK 11/15/22 11/15/22 2 Weeks Ago History gram/50mL(20%)-gly-IgA over 50 ~11/01/22 mcg/mL subcutaneous suzanna (Cuvitru) levalbuterol HCl 1.25 mg/0.5 mL 1.25 mg inhalation TID PRN 11/15/22 11/15/22 Unknown History solution for nebulization Shortness Of Breath Or Wheezing metoprolol tartrate 25 mg tablet 25 mg PO BID 11/15/22 11/15/22 2 Days Ago History ~11/13/22 nitroglycerin 0.4 mg sublingual 0.4 mg sublingual Q5M PRN Chest 11/15/22 11/15/22 2 Days Ago History tablet Pain ~11/13/22 ocrelizumab 30 mg/mL intravenous 600 mg IV [id number] 11/15/22 11/15/22 6 Months Ago History solution ~05/17/22 oxycodone-acetaminophen 10 mg-325 1 tab PO Q4-6H 11/15/22 08/27/23 2 Days Ago History mg tablet ~11/13/22 potassium chloride 20 mEq 20 meq PO DAILY 11/15/22 11/15/22 2 Days Ago History tablet,extended ~11/13/22 release(part/cryst) (Klor-Con M) pregabalin 150 mg capsule 150 mg PO TID 11/15/22 11/15/22 2 Days Ago History ~11/13/22 Physical Exam Vital Signs and Narrative: Vital Signs: Last Vital Signs Temp 98.4 F 08/27/23 20:43 Pulse 104 H 08/27/23 20:51 Resp 20 08/27/23 20:51 BP 144/83 H 08/27/23 20:43 Pulse Ox 96 08/27/23 20:43 O2 Del Method Nasal Cannula 08/27/23 20:43 O2 Flow Rate 2 08/27/23 20:43 Oxygen Flow Rate 2 08/27/23 19:02 BMI result Body Mass Index 24.6 Middle-aged female lying in bed in mild distress on supplemental oxygen Neck supple, no JVD Regular rate and rhythm, S1-S2 heard Bilateral wheezing without crackles Abdomen soft nontender, no guarding, no rigidity Patient is awake, alert and oriented to self, place, time and person ; no focal motor deficit Psych: Normal mood No pedal edema Results Labs 08/27/23 19:33 08/27/23 19:33 Labs: Laboratory Results - last 24 hr 08/27/23 08/27/23 19:33 21:48 MCV 92.4 MCH 31.0 MCHC 33.6 RDW 13.1 Plt Count 217 D MPV 10.6 Immature Gran % (Auto) 0.3 Neut % (Auto) 89.7 H Lymph % (Auto) 6.5 L [place] % (Auto) 3.3 Eos % (Auto) 0.0 Baso % (Auto) 0.2 Lymph # (Auto) 0.7 L [place] # (Auto) 0.4 Eos # (Auto) 0.0 Baso # (Auto) 0.0 Abs Immat Gran (auto) 0.03 Absolute Neuts (auto) 10.2 H Absolute Nucleated RBC 0.000 Nucleated RBC % (auto) 0.0 PT 11.2 INR 0.9 APTT 31.5 Anion Gap 16 Estim Creat Clear Calc 53.9 Estimated GFR > 60 Random Glucose 178 H Lactic Acid 1.7 Calcium 9.7 D Total Bilirubin 0.2 AST 23 ALT 11 Alkaline Phosphatase 111 Troponin I High Sens 2640.6 H* D 2126.8 H* B-Natriuretic Peptide 880 H Total Protein 7.8 Albumin 4.5 Influenza Type A (PCR) NEGATIVE Influenza Type B (PCR) NEGATIVE RSV RNA Qual (PCR) NEGATIVE SARS-CoV-2 RNA (RT-PCR) POSITIVE A Imaging Radiologist's Impressions: Impressions Chest X-Ray 08/27/23 21:35 IMPRESSION: Subsegmental atelectasis at the right lung base. Assessment and Plan (1) NSTEMI (non-ST elevated myocardial infarction): Status: Acute (2) COPD exacerbation: Status: Acute Plan This is a 72-year-old female with pertinent history of chronic hypoxemic respiratory failure due to COPD on 2 L baseline supplemental oxygen, mood disorder, essential hypertension, chronic opioid use, multiple sclerosis, tobacco use disorder who presents to the emergency department for evaluation of cough, shortness of breath and wheezing. #. Acute respiratory distress on chronic hypoxemic respiratory failure due to acute exacerbation of COPD in the setting of COVID-19 infection: Will admit patient with supplemental oxygen and isolation precautions. Scheduled and p.r.n. DuoNebs. Continue home inhaler. Initiating azithromycin for pleiotropic effect. Initiating systemic steroids #. Tachycardia and tachypnea due to COPD exacerbation. No sepsis #. NSTEMI: Administered aspirin. Initiated on IV heparin. Cardiology consulted, appreciate assistance. Obtaining echocardiogram. Patient is on beta-guido. Currently without chest discomfort but does have a history of CAD #. Mood disorder: Continue home mood stabilizers #. Essential hypertension: Continue home antihypertensives #. Chronic opioid use: On oxycodone #. Tobacco use disorder: Counseled regarding cessation. Nicotine patch while in the hospital #. Elevated BNP: Patient does not appear to be hypervolemic at the time of admission Med rec pending DVT prophylaxis: Heparin Full code Admit as inpatient and will require two night minimum hospital stay for IV heparin, close hemodynamic monitoring with monitoring of respiratory status (as above), which is not possible in a lesser acute setting. Specialist consult pending Quality Stroke Does the patient have a stroke diagnosis?: No VTE Prior VTE?: No VTE Risk Level:: Medical - moderate - high VTE Device Contraindication: Treatment Not Indicated VTE Drug Contraindication: N/A - Med Ordered
[2023-08-27 22:46] VITALS: PULSE 118; RESP 29; O2SAT 95; O2SAT 96
[2023-08-28] VITALS (13 sets, daily range): BP systolic 121–167; BP diastolic 66–95; PULSE 64–100; RESP 13–25; TEMP 36.2–36.8; O2SAT 94–99
[2023-08-28] MEDS: Azithromycin 500 MG in 0.9 % Sodium Chloride 250 ML 125 MG IV ×2 (00:08→22:18)
[2023-08-28] MEDS: Heparin Sodium,Porcine 5,000 UNIT/ML VIAL 4700 UNIT IVPUSH (00:10)
[2023-08-28] MEDS: Nicotine 14 MG PATCH.TD24 TRANSDERMA ×2 (00:11→07:19)
[2023-08-28] MEDS: oxyCODONE HCl Immed Release 5 MG TABLET 10 MG PO ×4 (00:12→22:24)
[2023-08-28] MEDS: Heparin Sodium,Porcine/1/2NS 25,000 UNIT/250 ML IV.SOLN 8.26 UNIT IVCONT (00:23)
[2023-08-28] MEDS: Melatonin 3 MG TABLET 6 MG PO ×2 (00:37→22:21)
[2023-08-28] MEDS: Aspirin Enteric Coated 81 MG TABLET.DR PO (00:38)
[2023-08-28 02:40] LABS: Hematocrit 38.4 % (37.0-47.0); Mean Corpuscular HGB Conc 33.9 g/dl (31.0-35.0); Mean Corpuscular Volume 91.4 fL (80.0-98.0); Mean Platelet Volume 10.5 fL (9.4-12.3); Platelet Count 193 X10*3/uL (160-400); Red Cell Distribution Width 13.2 % (11.0-16.0); White Blood Count 11.2 X10*3/uL (4.8-10.8)
[2023-08-28 02:45] LABS: Prothrombin Time 12.3 SEC (11.1-13.3)
[2023-08-28 02:48] LABS: PTT Heparin Drip 89.8 SEC (53-77.9)
--- NOTE | 2023-08-28 03:36 | PC.NURSE ---
pt had PTT that was ordered at 2330 drawn by phlebotomy at 0235 (drawn late) - order was duplicate by by mistake. Heparin drip initially started at initial dose rate of 14u/kg/hr according to weight and based on initial PTT result of 31.5 at 19:33. Drip started at 00:23, repeat PTT to be drawn at 06:23. Will keep heparin drip rate where it is at until next PTT at 06:23. Pt tolerating well. on media monitor, no apparent distress. Call norman within reach.
[2023-08-28 06:32] LABS: Hematocrit 38.8 % (37.0-47.0); Hematocrit 39.3 % (37.0-47.0); Mean Corpuscular HGB Conc 33.1 g/dl (31.0-35.0); Mean Corpuscular HGB Conc 33.5 g/dl (31.0-35.0); Mean Corpuscular Hemoglobin 30.4 pg (27.0-33.0); Mean Corpuscular Hemoglobin 31.2 pg (27.0-33.0); Mean Corpuscular Volume 91.8 fL (80.0-98.0); Mean Platelet Volume 10.6 fL (9.4-12.3); Mean Platelet Volume 10.8 fL (9.4-12.3); Platelet Count 189 X10*3/uL (160-400); Platelet Count 192 X10*3/uL (160-400); Red Blood Count 4.17 X10*6/uL (4.20-5.50); Red Blood Count 4.28 X10*6/uL (4.20-5.50); Red Cell Distribution Width 13.2 % (11.0-16.0); White Blood Count 9.1 X10*3/uL (4.8-10.8)
[2023-08-28 06:34] LABS: PTT Heparin Drip 70.1 SEC (53-77.9)
[2023-08-28 06:46] LABS: Anion Gap 14 (12-20); Blood Urea Nitrogen 10 mg/dL (9-16); Calcium 8.9 mg/dL (8.4-10.2); Carbon Dioxide 23 mmol/L (22-29); Chloride 106 mmol/L (96-108); Creatinine Clr Calc Pharmacy 57.5; Estimated Glomerular Filt Rate > 60; Glucose Random 242 mg/dL (60-115); Potassium 3.8 mmol/L (3.3-5.1); Sodium 139 mmol/L (135-145)
[2023-08-28 06:50] LABS: Prothrombin Time 11.7 SEC (11.1-13.3)
--- NOTE | 2023-08-28 07:00 | CA_ITS ---
Transthoracic Echocardiogram Patient (Last, First, Middle): Isabela Leslie M Gender: Female Date of : 1950 Age: 72 Procedure Date: 08/28/2023 Procedure Type: Transthoracic Echocardiogram Location: ER Height: 154.94 cm Weight: 58.97 kg BSA: 1.57 m2 Heart Rate: 89 bpm BP: 141 / 87 mmHg Rotary Drier: Referring MD: Amelia Whitten MD Billiard Player: Avila Gomez MD Symptoms: NSTEMI Study Quality: Adequate w contrast ECG Rhythm: Sinus Conclusions: - Mildly to moderately reduced LV ejection fraction of 40-45% with distal wall motion abnormality which could represent stress induced cardiomyopathy correct clinical situation or LAD territory ischemia. Findings Procedure Information Contrast agent, definity, is being given per protocol without apparent complications. Left Ventricle Normal left ventricular cavity size. There is mildly increased left ventricular wall thickness. The left ventricular systolic function is mild to moderately decreased. The visually estimated ejection fraction is between 40-45%. Wall Motion Rest Echo Findings The entire apex is akinetic. All other scored wall segments showed normal motion. Pericardium/Pleural There is a trivial loculated pericardial effusion overlying the left ventricle. Measurements 2D Linear Measurements IVSd: 1.47 0.6-0.9/0.6-1.0 cm LVIDd: 3.89 3.9-5.3/4.2-5.9 cm LVIDd Index: 2.48 2.4-3.2/2.2-3.1 cm/m2 LVIDs: 3.03 2.0-3.6 cm LVPWd: 1.48 0.7-1.1 cm LV Mass: 271.60 67-162/88-224 g LV Mass Index: 172.99 43-95/49-115 g/m2 2D Systolic Function EF 4C: 42.50 >55% EF 2C: 41.30 >55% EF BiP: 44.90 >55% Mitral Valve MV Pk E: 0.04 Diastolic Function MV Pk E: 0.04 Updated in Other Vendor System with Status of Final Avila Gomez MD electronically signed on 08/28/2023 4:05:32 PM with status of Final
--- NOTE | 2023-08-28 07:08 | PC.NURSE ---
heparin PTT 701. - per protocol no bolus to be given, no rate change required. continue running at 14u/kg/hr. Repeat PTT to be drawn at 12:30
[2023-08-28] MEDS: methylPREDNISolone Sod Succ 40 MG/ML VIAL IVPUSH ×2 (07:20→19:56)
[2023-08-28] MEDS: Albuterol/Iprat 2.5/0.5MG 3 ML AMPUL.NEB INHALE ×3 (07:39→19:24)
--- NOTE | 2023-08-28 09:11 | PHA.MEDREC ---
Pharmacy Consult ? Medication Reconciliation Pharmacy has completed the medication reconciliation.Med rec complete, patient admitted that she has gotten behind on some of her medications. Some things have not been filled for a while but patient is able to confirm she still has them at home and is still supposed to be taking them. The only thing she is not sure of is amlodipine, she is checking with her to see if its in her med box at home.
--- NOTE | 2023-08-28 11:32 | P.PNIM_ITS ---
Subjective Subjective Date of Service: 08/28/23 Interval History: sob Physical Exam 2 Vital Signs: Vital Signs: Last Vital Signs Temp 97.9 F 08/28/23 10:48 Pulse 86 08/28/23 11:07 Resp 24 H 08/28/23 11:07 BP 126/66 08/28/23 10:48 Pulse Ox 97 08/28/23 10:48 O2 Del Method Nasal Cannula 08/28/23 10:48 O2 Flow Rate 2 08/28/23 10:48 Oxygen Flow Rate 2 08/27/23 22:46 BMI result Body Mass Index 24.6 General: AO X 3, sob Resp: Crackles bilateral, some accessory muscles used CVS: S1,S2,RRR GI: soft, non tender, non distended Neuro: motor grossly intact, alert Psych: appropriate affect, appropriate insight Objective Data Active Medications Acetaminophen (Acetaminophen 325 Mg Tablet) 650 mg PO Q6H PRN PRN Reason: Pain, Mild (Pain Scale 1-3) Albuterol/Ipratropium (Albuterol/Iprat 2.5/0.5mg 3 Ml Ampul.Neb) 3 ml INHALE RQ4H WHILE AWAKE [facility] Last Admin: 08/28/23 11:07 Dose: 3 ml Documented By: KENNETH Albuterol/Ipratropium (Albuterol/Iprat 2.5/0.5mg 3 Ml Ampul.Neb) 3 ml INHALE Q4H PRN PRN Reason: Wheezing Aspirin (Aspirin Enteric Coated 81 Mg Tablet.) 81 mg PO DAILY [facility] Atorvastatin Calcium (Atorvastatin Calcium 40 Mg Tablet) 40 mg PO BEDTIME [facility] Buspirone HCl (Buspirone Hcl 10 Mg Tablet) 10 mg PO BID [facility] Clopidogrel Bisulfate (Clopidogrel Bisulfate 75 Mg Tablet) 75 mg PO DAILY [facility] Duloxetine HCl (Duloxetine Hcl 60 Mg Capsule.) 60 mg PO DAILY [facility] Heparin Sodium (Porcine) (Heparin Sodium,Porcine 5,000 Unit/Ml Vial) 2,400 unit 40 unit/kg (2400 unit) IVPUSH PROTOCOL BOLUS PRN; Protocol PRN Reason: 40 unit/kg - Heparin Protocol Heparin Sodium (Porcine) (Heparin Sodium,Porcine 5,000 Unit/Ml Vial) 4,700 unit 80 unit/kg (4700 unit) IVPUSH PROTOCOL BOLUS PRN; Protocol PRN Reason: 80 unit/kg - Heparin Protocol Heparin Sodium/Sodium Chloride (Heparin Sodium,Porcine/1/2ns) 25,000 unit in 250 mls @ 0 mls/hr IVCONT .Q0M [facility]; Protocol Last Admin: 08/28/23 00:23 Dose: 14 units/kg/hr, 8.26 mls/hr Documented By: AMANUEL Co-signed By: JOCELINE Azithromycin 500 mg/ Sodium (Chloride) 250 mls @ 125 mls/hr IV Q24H [facility] Last Infusion: 08/28/23 02:21 Dose: Infused Documented By: AMANUEL Melatonin (Melatonin 3 Mg Tablet) 6 mg PO BEDTIME PRN PRN Reason: Insomnia Last Admin: 08/28/23 00:37 Dose: 6 mg Documented By: AMANUEL Methylprednisolone Sodium Succinate (Methylprednisolone Sod Succ 40 Mg/Ml Vial) 40 mg IVPUSH Q12H [facility] Last Admin: 08/28/23 07:20 Dose: 40 mg Documented By: HIRO Metoprolol Tartrate (Metoprolol Tartrate 25 Mg Tablet) 25 mg PO BID [facility]; Protocol Nicotine (Nicotine 14 Mg Patch.Td24) 14 mg TRANSDERMA DAILY [facility] Last Admin: 08/28/23 07:19 Dose: 14 mg Documented By: HIRO Non-Formulary Medication (Esomeprazole Magnesium) 40 mg PO DAILY@0630 [facility] Ondansetron HCl (Ondansetron Hcl 4 Mg/2 Ml Vial) 4 mg IVPUSH Q8H PRN PRN Reason: Nausea and Vomiting Oxycodone HCl (Oxycodone Hcl Immed Release 5 Mg Tablet) 10 mg PO Q6H PRN PRN Reason: Pain, Severe (Pain Scale 7-10) Last Admin: 08/28/23 07:20 Dose: 10 mg Documented By: HIRO Pregabalin (Pregabalin 150 Mg Capsule) 150 mg PO TID [facility] Labs 08/28/23 06:05 08/28/23 06:05 Labs: Laboratory Results - last 24 hr 08/27/23 08/27/23 08/28/23 19:33 21:48 02:35 MCV 92.4 91.4 MCH 31.0 31.0 MCHC 33.6 33.9 RDW 13.1 13.2 Plt Count 217 D 193 MPV 10.6 10.5 Immature Gran % (Auto) 0.3 Neut % (Auto) 89.7 H Lymph % (Auto) 6.5 L Roberts % (Auto) 3.3 Eos % (Auto) 0.0 Baso % (Auto) 0.2 Lymph # (Auto) 0.7 L Roberts # (Auto) 0.4 Eos # (Auto) 0.0 Baso # (Auto) 0.0 Abs Immat Gran (auto) 0.03 Absolute Neuts (auto) 10.2 H Absolute Nucleated RBC 0.000 0.000 Nucleated RBC % (auto) 0.0 0.0 PT 11.2 12.3 INR 0.9 1.0 APTT 31.5 aPTT Heparin Protocol 89.8 H Anion Gap 16 Estim Creat Clear Calc 53.9 Estimated GFR > 60 Random Glucose 178 H Lactic Acid 1.7 Calcium 9.7 D Total Bilirubin 0.2 AST 23 ALT 11 Alkaline Phosphatase 111 Troponin I High Sens 2640.6 H* D 2126.8 H* B-Natriuretic Peptide 880 H Total Protein 7.8 Albumin 4.5 Influenza Type A (PCR) NEGATIVE Influenza Type B (PCR) NEGATIVE RSV RNA Qual (PCR) NEGATIVE SARS-CoV-2 RNA (RT-PCR) POSITIVE A 08/28/23 08/28/23 08/28/23 06:05 06:05 06:05 MCV 93.0 91.8 MCH 31.2 30.4 MCHC 33.5 RDW Plt Count MPV Immature Gran % (Auto) Neut % (Auto) Lymph % (Auto) Roberts % (Auto) Eos % (Auto) Baso % (Auto) Lymph # (Auto) Roberts # (Auto) Eos # (Auto) Baso # (Auto) Abs Immat Gran (auto) Absolute Neuts (auto) Absolute Nucleated RBC Nucleated RBC % (auto) PT INR APTT aPTT Heparin Protocol Anion Gap Estim Creat Clear Calc Estimated GFR Random Glucose Lactic Acid Calcium Total Bilirubin AST ALT Alkaline Phosphatase Troponin I High Sens B-Natriuretic Peptide Total Protein Albumin Influenza Type A (PCR) Influenza Type B (PCR) RSV RNA Qual (PCR) SARS-CoV-2 RNA (RT-PCR) 08/28/23 08/28/23 08/28/23 06:05 06:05 06:05 MCV MCH MCHC 33.1 RDW 13.2 13.2 Plt Count 189 192 MPV 10.8 Immature Gran % (Auto) Neut % (Auto) Lymph % (Auto) Roberts % (Auto) Eos % (Auto) Baso % (Auto) Lymph # (Auto) Roberts # (Auto) Eos # (Auto) Baso # (Auto) Abs Immat Gran (auto) Absolute Neuts (auto) Absolute Nucleated RBC Nucleated RBC % (auto) PT INR APTT aPTT Heparin Protocol Anion Gap Estim Creat Clear Calc Estimated GFR Random Glucose Lactic Acid Calcium Total Bilirubin AST ALT Alkaline Phosphatase Troponin I High Sens B-Natriuretic Peptide Total Protein Albumin Influenza Type A (PCR) Influenza Type B (PCR) RSV RNA Qual (PCR) SARS-CoV-2 RNA (RT-PCR) 08/28/23 08/28/23 08/28/23 06:05 06:05 06:05 MCV MCH MCHC RDW Plt Count MPV 10.6 Immature Gran % (Auto) Neut % (Auto) Lymph % (Auto) Roberts % (Auto) Eos % (Auto) Baso % (Auto) Lymph # (Auto) Roberts # (Auto) Eos # (Auto) Baso # (Auto) Abs Immat Gran (auto) Absolute Neuts (auto) Absolute Nucleated RBC 0.000 0.000 Nucleated RBC % (auto) 0.0 0.0 PT 11.7 INR 1.0 APTT aPTT Heparin Protocol 70.1 D Anion Gap 14 Estim Creat Clear Calc 57.5 Estimated GFR > 60 Random Glucose 242 H Lactic Acid Calcium 8.9 D Total Bilirubin AST ALT Alkaline Phosphatase Troponin I High Sens B-Natriuretic Peptide Total Protein Albumin Influenza Type A (PCR) Influenza Type B (PCR) RSV RNA Qual (PCR) SARS-CoV-2 RNA (RT-PCR) Assessment and Plan (1) NSTEMI (non-ST elevated myocardial infarction): Status: Acute Plan 72F PMH of COPD, chronic hypoxemic respiratory failure (2L/min ATC), multiple sclerosis, CAD, hypogammaglobulinemia with recurrent pneumonia/bronchitis, DMII, presented with sob, found to have covid and elevated troponins. Chronic hypoxic respiratory failure due to COPD on 2 L at home complicated by acute decompensation due to COVID-19 Nebs, azithromycin, steroids remdisivir (08/28/23) Elevated troponin Spill NSTEMI versus demand ischemia Continue heparin, dual antiplatelet, statin, beta-guido Cardiology eval History of coronary disease, peripheral vascular disease dapl, statin MS stable hypogammaglobulinemia outpatient ivig dm check a1c insulin sliding scale dvt prophyalxis - on hep iv full code reason for continued hospitalization: sob, treating nstemi Quality Stroke Does the patient have a stroke diagnosis?: No VTE Prior VTE?: No VTE Risk Level:: Medical - moderate - high VTE Device Contraindication: Treatment Not Indicated VTE Drug Contraindication: N/A - Med Ordered
[2023-08-28 12:23] LABS: PTT Heparin Drip 56.1 SEC (53-77.9)
[2023-08-28] MEDS: Remdesivir 200 MG in 0.9 % Sodium Chloride 210 ML 105 MG IV (13:05)
--- NOTE | 2023-08-28 13:42 | PC.NURSE ---
nad, no sob or cp, heparin drip stays at 14 u /kg/h as ptt is within therapeutic range, nad, no complaints
--- NOTE | 2023-08-28 14:43 | PM.CNCAR ---
History of Present Illness History of Present Illness Date of Service: 08/28/23 Requesting physician: Dieudonne Castellanos Consult reason: troponin elevation Chief complaint: Cough Narrative: I was consulted to see Isabela in cardiology consultation today for elevated troponins. She has a 72-year-old female with prior history of CAD with LAD stenting in 2007, she does not recall any symptoms, right carotid stenting in 2019, COPD with emphysema, continues to smoke, hypertension, anxiety, present to the hospital with progressive shortness of breath, cough productive of purulent sputum and admitted with COPD exacerbation with hypoxemia. Patient says she has doing a lot better. She does complain of chest pain although not sure and not very specific about 2 chest pain syndrome. She follows with Cardiology in [place]. She had a recent echocardiogram which showed normal LV ejection fraction 60 65% with aortic valve sclerosis. Patient came in troponin was done which showed troponin of 2500. . Cardiology consult was sought because of elevated troponins. EKG shows normal sinus rhythm with inferior Q-waves with nonspecific ST T wave changes. Review of Systems Constitutional: Constitutional: Denies chills and Denies fever(s) Eyes: Eyes: Reports no additional eye complaints Cardiovascular: Cardiovascular: Denies chest pain, Denies leg edema, Denies lightheadedness, Denies Loss of Consciousness, Denies palpitations, Reports dyspnea and Reports dyspnea on exertion Respiratory: Respiratory: Reports change in phlegm color, Reports cough, Reports excessive phlegm production, Reports dyspnea, Reports dyspnea on exertion and Reports wheezing Gastrointestinal: Gastrointestinal: Reports no additional gastrointestinal complaints Integumentary/Breasts: Skin/Breast: Reports system reviewed and no additional complaints, except as docu Neurologic: Reports system reviewed and no additional complaints, except as documented Psychiatric: Psychiatric: Reports no additional psychiatric complaints Endocrine: Endocrine: Denies palpitations Allergic/Immunologic: Allergic/Immunologic: Reports wheezing PMFSH Past Medical History Medical History History of CAD (coronary artery disease) Peripheral vascular disease Chronic back pain GERD (gastroesophageal reflux disease) High cholesterol HTN (hypertension) Immune disorder COPD (chronic obstructive pulmonary disease) Multiple sclerosis Surgical History Surgical History History of angioplasty History of heart artery stent Social History Social History Household Members: Spouse Housing: House Do you presently have visiting nurse or other home services: No Alcohol intake: never Patient Tobacco Use Status: Current everyday Tobacco user Tobacco use type: Cigarette Smoked in Last 30 Days: Yes Use of substances other than those prescribed or required for medical reasons: No Advance Directives: Yes Advance Directives on File: Yes Advance Directives Date on File: 11/22/22 service: No Current occupational status: retired Meds Allergies Allergy/AdvReac Type Severity Reaction Status Date / Time codeine [CODEINE] Allergy Unknown Hives Verified 08/27/23 19:09 Active Medications: Current Medications Acetaminophen (Acetaminophen 325 Mg Tablet) 650 mg PO Q6H PRN PRN Reason: Pain, Mild (Pain Scale 1-3) Albuterol/Ipratropium (Albuterol/Iprat 2.5/0.5mg 3 Ml Ampul.Neb) 3 ml INHALE RQ4H WHILE AWAKE RAJNI Last Admin: 08/28/23 11:07 Dose: 3 ml Albuterol/Ipratropium (Albuterol/Iprat 2.5/0.5mg 3 Ml Ampul.Neb) 3 ml INHALE Q4H PRN PRN Reason: Wheezing Aspirin (Aspirin Enteric Coated 81 Mg Tablet.) 81 mg PO DAILY [facility] Atorvastatin Calcium (Atorvastatin Calcium 40 Mg Tablet) 40 mg PO BEDTIME [facility] Buspirone HCl (Buspirone Hcl 10 Mg Tablet) 10 mg PO BID [facility] Clopidogrel Bisulfate (Clopidogrel Bisulfate 75 Mg Tablet) 75 mg PO DAILY [facility] Dextrose (Dextrose 50 % 25 Gm/50 Ml Syringe) 25 gm IVPUSH Q15M PRN; Protocol PRN Reason: per Hypoglycemia Standing Ord. Duloxetine HCl (Duloxetine Hcl 60 Mg Capsule.) 60 mg PO DAILY [facility] Glucose (Glucose Gel 15 Gm Gel..Gram.) 15 gm PO Q15M PRN; Protocol PRN Reason: per Hypoglycemia Standing Ord. Heparin Sodium (Porcine) (Heparin Sodium,Porcine 5,000 Unit/Ml Vial) 2,400 unit 40 unit/kg (2400 unit) IVPUSH PROTOCOL BOLUS PRN; Protocol PRN Reason: 40 unit/kg - Heparin Protocol Heparin Sodium (Porcine) (Heparin Sodium,Porcine 5,000 Unit/Ml Vial) 4,700 unit 80 unit/kg (4700 unit) IVPUSH PROTOCOL BOLUS PRN; Protocol PRN Reason: 80 unit/kg - Heparin Protocol Heparin Sodium/Sodium Chloride (Heparin Sodium,Porcine/1/2ns) 25,000 unit in 250 mls @ 0 mls/hr IVCONT .Q0M [facility]; Protocol Last Admin: 08/28/23 00:23 Dose: 14 units/kg/hr, 8.26 mls/hr Azithromycin 500 mg/ Sodium (Chloride) 250 mls @ 125 mls/hr IV Q24H [facility] Last Infusion: 08/28/23 02:21 Dose: Infused Remdesivir 200 mg/ Sodium (Chloride) 210 mls @ 105 mls/hr IV ONCE ONE Stop: 08/28/23 14:59 Last Admin: 08/28/23 13:05 Dose: 105 mls/hr Remdesivir 100 mg/ Sodium (Chloride) 230 mls @ 115 mls/hr IV Q24H [facility] Stop: 09/01/23 13:59 Insulin Human Lispro (Insulin Lispro 100 Unit/Ml 3 Ml Vial) 0 unit SUBCUT QIDACHS [facility]; Protocol Melatonin (Melatonin 3 Mg Tablet) 6 mg PO BEDTIME PRN PRN Reason: Insomnia Last Admin: 08/28/23 00:37 Dose: 6 mg Methylprednisolone Sodium Succinate (Methylprednisolone Sod Succ 40 Mg/Ml Vial) 40 mg IVPUSH Q12H [facility] Last Admin: 08/28/23 07:20 Dose: 40 mg Metoprolol Tartrate (Metoprolol Tartrate 25 Mg Tablet) 25 mg PO BID [facility]; Protocol Nicotine (Nicotine 14 Mg Patch.Td24) 14 mg TRANSDERMA DAILY [facility] Last Admin: 08/28/23 07:19 Dose: 14 mg Omeprazole (Omeprazole 20 Mg Capsule.Dr) 20 mg PO DAILY@0630 [facility] Ondansetron HCl (Ondansetron Hcl 4 Mg/2 Ml Vial) 4 mg IVPUSH Q8H PRN PRN Reason: Nausea and Vomiting Oxycodone HCl (Oxycodone Hcl Immed Release 5 Mg Tablet) 10 mg PO Q6H PRN PRN Reason: Pain, Severe (Pain Scale 7-10) Last Admin: 08/28/23 07:20 Dose: 10 mg Pregabalin (Pregabalin 150 Mg Capsule) 150 mg PO TID [facility] Home Medications Medication Instructions Recorded Confirmed Last Taken Type albuterol sulfate 90 mcg/actuation 2 puff inhalation Q4H PRN wheezing 11/15/22 08/28/23 Unknown History aerosol inhaler amlodipine 5 mg tablet 10 mg PO DAILY 11/15/22 11/15/22 2 Days Ago History ~11/13/22 aspirin 81 mg capsule 81 mg PO DAILY 11/15/22 08/28/23 2 Days Ago History ~11/13/22 buspirone 10 mg tablet 10 mg PO BID 11/15/22 08/28/23 2 Days Ago History ~11/13/22 ffxghofzsc-lxlvssvclvxqb-[id number] 1 cap PO DAILY PRN Headache 11/15/22 08/28/23 Unknown History 50 mg-300 mg-40 mg capsule cholecalciferol (vitamin D3) 50 100 mcg PO DAILY 11/15/22 08/28/23 2 Days Ago History mcg (2,000 unit) capsule ~11/13/22 clopidogrel 75 mg tablet 75 mg PO DAILY 11/15/22 08/28/23 Unknown History duloxetine 60 mg capsule,delayed 60 mg PO DAILY 11/15/22 08/28/23 2 Days Ago History release ~11/13/22 erenumab-aooe 140 mg/mL 140 mg subcut Q28D 11/15/22 08/28/23 3 Weeks Ago History subcutaneous auto-injector ~10/25/22 (Aimovig Autoinjector) esomeprazole magnesium 40 mg 40 mg PO DAILY@0630 11/15/22 08/28/23 2 Days Ago History capsule,delayed release ~11/13/22 fluticasone fur. 100 mcg-umeclid 1 ea inhalation DAILY 11/15/22 08/28/23 2 Days Ago History 62.5 mcg-vilant 25 mcg ~11/13/22 inhalat.powder (Trelegy Ellipta) fluticasone propionate 50 1 spray intranasal BID PRN 11/15/22 08/28/23 2 Days Ago History mcg/actuation nasal allergies ~11/13/22 spray,suspension hydrochlorothiazide 25 mg tablet 25 mg PO DAILY 11/15/22 08/28/23 2 Days Ago History ~11/13/22 immun glob G 10 50 ml subcut QWEEK 11/15/22 08/28/23 2 Weeks Ago History gram/50mL(20%)-gly-IgA over 50 ~11/01/22 mcg/mL subcutaneous suzanna (Cuvitru) levalbuterol HCl 1.25 mg/0.5 mL 1.25 mg inhalation TID PRN 11/15/22 08/28/23 Unknown History solution for nebulization Shortness Of Breath Or Wheezing metoprolol tartrate 25 mg tablet 25 mg PO BID 11/15/22 08/28/23 2 Days Ago History ~11/13/22 nitroglycerin 0.4 mg sublingual 0.4 mg sublingual Q5M PRN Chest 11/15/22 08/28/23 2 Days Ago History tablet Pain ~11/13/22 ocrelizumab 30 mg/mL intravenous 600 mg IV [id number] 11/15/22 08/28/23 6 Months Ago History solution ~05/17/22 oxycodone-acetaminophen 10 mg-325 1 tab PO Q4-6H PRN Pain (Scale 11/15/22 08/27/23 2 Days Ago History mg tablet Score 4-6) ~11/13/22 potassium chloride 20 mEq 20 meq PO DAILY 11/15/22 08/28/23 2 Days Ago History tablet,extended ~11/13/22 release(part/cryst) (Klor-Con M) pregabalin 150 mg capsule 150 mg PO TID 11/15/22 08/28/23 2 Days Ago History ~11/13/22 atorvastatin 40 mg tablet 40 mg PO BEDTIME 08/28/23 08/28/23 Unknown History Physical Exam Vital Signs: Vital Signs: Last Vital Signs Temp 98.1 F 08/28/23 14:39 Pulse 90 08/28/23 14:39 Resp 13 08/28/23 14:39 BP 133/76 08/28/23 14:39 Pulse Ox 97 08/28/23 14:39 O2 Del Method Nasal Cannula 08/28/23 14:39 O2 Flow Rate 2 08/28/23 14:39 Oxygen Flow Rate 2 08/27/23 22:46 BMI result Body Mass Index 24.6 Const: General: cooperative, comfortable, alert, awake and in distress mild and respiratory Nutritional Appearance: thin Orientation/consciousness: patient oriented x3 Limitations: no limitations HEENT: Head: Yes normocephalic and Yes atraumatic Neck: Neck: Yes trachea midline, Yes supple and Yes no JVD Resp: Effort & Inspection: normal respiratory effort Auscultation: no rales and diminished lung sounds Cardio: Jugular venous distension: no JVD Palpation: normal PMI Rate: regular rate Rhythm: regular rhythm Heart sounds: S1 normal heart sound present, S2 normal heart sound present, no click, no gallops and Murmur heart sound present systolic early GI: Auscultation: normal bowel sounds Skin: General skin exam: no rashes or lesions noted Neuro: General: patient oriented x3 and no focal motor deficits Extrem: General: Yes no clubbing, cyanosis or edema Objective Labs and Meds 08/28/23 06:05 08/28/23 06:05 Lab results: Laboratory Results - last 24 hr 08/27/23 08/27/23 08/28/23 19:33 21:48 02:35 WBC 11.4 H 11.2 H RBC 4.84 4.20 Hgb 15.0 13.0 Hct 44.7 38.4 MCV 92.4 91.4 MCH 31.0 31.0 MCHC 33.6 33.9 RDW 13.1 13.2 Plt Count 217 D 193 MPV 10.6 10.5 Immature Gran % (Auto) 0.3 Neut % (Auto) 89.7 H Lymph % (Auto) 6.5 L [place] % (Auto) 3.3 Eos % (Auto) 0.0 Baso % (Auto) 0.2 Lymph # (Auto) 0.7 L [place] # (Auto) 0.4 Eos # (Auto) 0.0 Baso # (Auto) 0.0 Abs Immat Gran (auto) 0.03 Absolute Neuts (auto) 10.2 H Absolute Nucleated RBC 0.000 0.000 Nucleated RBC % (auto) 0.0 0.0 PT 11.2 12.3 INR 0.9 1.0 APTT 31.5 aPTT Heparin Protocol 89.8 H Sodium 140 Potassium 3.9 Chloride 100 Carbon Dioxide 28 Anion Gap 16 BUN 9 Creatinine 0.79 Estim Creat Clear Calc 53.9 Estimated GFR > 60 Random Glucose 178 H Lactic Acid 1.7 Calcium 9.7 D Total Bilirubin 0.2 AST 23 ALT 11 Alkaline Phosphatase 111 Troponin I High Sens 2640.6 H* D 2126.8 H* B-Natriuretic Peptide 880 H Total Protein 7.8 Albumin 4.5 Influenza Type A (PCR) NEGATIVE Influenza Type B (PCR) NEGATIVE RSV RNA Qual (PCR) NEGATIVE SARS-CoV-2 RNA (RT-PCR) POSITIVE A 08/28/23 08/28/23 08/28/23 06:05 06:05 06:05 WBC 9.1 9.1 RBC 4.17 L 4.28 Hgb 13.0 Hct MCV MCH MCHC RDW Plt Count MPV Immature Gran % (Auto) Neut % (Auto) Lymph % (Auto) [place] % (Auto) Eos % (Auto) Baso % (Auto) Lymph # (Auto) [place] # (Auto) Eos # (Auto) Baso # (Auto) Abs Immat Gran (auto) Absolute Neuts (auto) Absolute Nucleated RBC Nucleated RBC % (auto) PT INR APTT aPTT Heparin Protocol Sodium Potassium Chloride Carbon Dioxide Anion Gap BUN Creatinine Estim Creat Clear Calc Estimated GFR Random Glucose Lactic Acid Calcium Total Bilirubin AST ALT Alkaline Phosphatase Troponin I High Sens B-Natriuretic Peptide Total Protein Albumin Influenza Type A (PCR) Influenza Type B (PCR) RSV RNA Qual (PCR) SARS-CoV-2 RNA (RT-PCR) 08/28/23 08/28/23 08/28/23 06:05 06:05 06:05 WBC RBC Hgb 13.0 Hct 38.8 39.3 MCV 93.0 91.8 MCH 31.2 MCHC RDW Plt Count MPV Immature Gran % (Auto) Neut % (Auto) Lymph % (Auto) [place] % (Auto) Eos % (Auto) Baso % (Auto) Lymph # (Auto) [place] # (Auto) Eos # (Auto) Baso # (Auto) Abs Immat Gran (auto) Absolute Neuts (auto) Absolute Nucleated RBC Nucleated RBC % (auto) PT INR APTT aPTT Heparin Protocol Sodium Potassium Chloride Carbon Dioxide Anion Gap BUN Creatinine Estim Creat Clear Calc Estimated GFR Random Glucose Lactic Acid Calcium Total Bilirubin AST ALT Alkaline Phosphatase Troponin I High Sens B-Natriuretic Peptide Total Protein Albumin Influenza Type A (PCR) Influenza Type B (PCR) RSV RNA Qual (PCR) SARS-CoV-2 RNA (RT-PCR) 08/28/23 08/28/23 08/28/23 06:05 06:05 06:05 WBC RBC Hgb Hct MCV MCH 30.4 MCHC 33.5 33.1 RDW 13.2 13.2 Plt Count 189 MPV Immature Gran % (Auto) Neut % (Auto) Lymph % (Auto) [place] % (Auto) Eos % (Auto) Baso % (Auto) Lymph # (Auto) [place] # (Auto) Eos # (Auto) Baso # (Auto) Abs Immat Gran (auto) Absolute Neuts (auto) Absolute Nucleated RBC Nucleated RBC % (auto) PT INR APTT aPTT Heparin Protocol Sodium Potassium Chloride Carbon Dioxide Anion Gap BUN Creatinine Estim Creat Clear Calc Estimated GFR Random Glucose Lactic Acid Calcium Total Bilirubin AST ALT Alkaline Phosphatase Troponin I High Sens B-Natriuretic Peptide Total Protein Albumin Influenza Type A (PCR) Influenza Type B (PCR) RSV RNA Qual (PCR) SARS-CoV-2 RNA (RT-PCR) 08/28/23 08/28/23 08/28/23 06:05 06:05 06:05 WBC RBC Hgb Hct MCV MCH MCHC RDW Plt Count 192 MPV 10.8 10.6 Immature Gran % (Auto) Neut % (Auto) Lymph % (Auto) [place] % (Auto) Eos % (Auto) Baso % (Auto) Lymph # (Auto) [place] # (Auto) Eos # (Auto) Baso # (Auto) Abs Immat Gran (auto) Absolute Neuts (auto) Absolute Nucleated RBC 0.000 0.000 Nucleated RBC % (auto) 0.0 PT INR APTT aPTT Heparin Protocol Sodium Potassium Chloride Carbon Dioxide Anion Gap BUN Creatinine Estim Creat Clear Calc Estimated GFR Random Glucose Lactic Acid Calcium Total Bilirubin AST ALT Alkaline Phosphatase Troponin I High Sens B-Natriuretic Peptide Total Protein Albumin Influenza Type A (PCR) Influenza Type B (PCR) RSV RNA Qual (PCR) SARS-CoV-2 RNA (RT-PCR) 08/28/23 08/28/23 06:05 12:07 WBC RBC Hgb Hct MCV MCH MCHC RDW Plt Count MPV Immature Gran % (Auto) Neut % (Auto) Lymph % (Auto) [place] % (Auto) Eos % (Auto) Baso % (Auto) Lymph # (Auto) [place] # (Auto) Eos # (Auto) Baso # (Auto) Abs Immat Gran (auto) Absolute Neuts (auto) Absolute Nucleated RBC Nucleated RBC % (auto) 0.0 PT 11.7 INR 1.0 APTT aPTT Heparin Protocol 70.1 D 56.1 Sodium 139 Potassium 3.8 Chloride 106 Carbon Dioxide 23 Anion Gap 14 BUN 10 Creatinine 0.74 Estim Creat Clear Calc 57.5 Estimated GFR > 60 Random Glucose 242 H Lactic Acid Calcium 8.9 D Total Bilirubin AST ALT Alkaline Phosphatase Troponin I High Sens B-Natriuretic Peptide Total Protein Albumin Influenza Type A (PCR) Influenza Type B (PCR) RSV RNA Qual (PCR) SARS-CoV-2 RNA (RT-PCR) Imaging Radiologist's impression: Impressions Chest X-Ray 08/27/23 21:35 IMPRESSION: Subsegmental atelectasis at the right lung base. Assessment and Plan (1) NSTEMI (non-ST elevated myocardial infarction): Status: Acute NSTEMI, most likely secondary to acute COPD exacerbation in the setting of known prior CAD. Obstructive coronary artery disease needs to be evaluated as outpatient once patient's respiratory status improves. Primary acute coronary syndrome is less likely. Other possibilities include RV strain from acute cor pulmonale as well as possibility of stress-induced cardiomyopathy. Recommend a limited echocardiogram to compare recently completed echocardiogram done at [facility] to see if that any new regional wall motion abnormality mean. Continue IV heparin for total of 48 hours. Continue aggressive management of underlying pulmonary condition. Continue aspirin, high-intensity statin therapy. She is also on Plavix therapy for unclear reason. Continue aggressive management of blood pressure which is currently well optimized. She is on amlodipine therapy which can be continued as well as metoprolol therapy if no contraindication for pulmonary perspective. Management was discussed with her. Will follow with you Procedures Date of Service Date of Service: 08/28/23
[2023-08-28 14:53] LABS: Estimated Average Glucose 123 mg/dL; Hemoglobin A1c % 5.9 % (<6.0)
[2023-08-28] MEDS: Pregabalin 150 MG CAPSULE PO ×2 (16:18→19:56)
--- NOTE | 2023-08-28 16:28 | PC.NURSE ---
Report taken from Prince RN, assumed care of pt at 1530. Pt A&Ox3 skin pwd respirations even unlabored. Heparin infusing at 14 units/kg/hr per MAR next ptt due at 1800. Pt endorsing 8/10 lower back pain, medicated per MAR with PRN pain med. VSS denies chest pain. Awaiting be assignment for admission, aware of plan of care.
[2023-08-28 16:53] LABS: Glucose, Whole Blood 224 mg/dL (60-115)
--- NOTE | 2023-08-28 18:18 | PC.NURSE ---
Report given to Kelly TAVARES, pt awaiting transport to floor.
[2023-08-28 18:32] LABS: PTT Heparin Drip 38.5 SEC (53-77.9)
[2023-08-28] MEDS: Heparin Sodium,Porcine 5,000 UNIT/ML VIAL 2400 UNIT IVPUSH (19:21)
[2023-08-28 19:48] LABS: Glucose, Whole Blood 169 mg/dL (60-115)
[2023-08-28] MEDS: Metoprolol Tartrate 25 MG TABLET PO (19:56)
[2023-08-28] MEDS: busPIRone HCl 10 MG TABLET PO (19:56)
[2023-08-28] MEDS: Atorvastatin Calcium 40 MG TABLET PO (19:56)
[2023-08-28] MEDS: Insulin Lispro 100 UNIT/ML 3 ML VIAL SUBCUT (20:07)
[2023-08-29] VITALS (11 sets, daily range): BP systolic 148–194; BP diastolic 73–88; PULSE 65–92; RESP 20; TEMP 36.4–37.1; O2SAT 95–99
[2023-08-29] MEDS: Heparin Sodium,Porcine/1/2NS 25,000 UNIT/250 ML IV.SOLN 9.44 UNIT IVCONT (01:27)
[2023-08-29 02:11] LABS: PTT Heparin Drip 42.3 SEC (53-77.9)
[2023-08-29] MEDS: oxyCODONE HCl Immed Release 5 MG TABLET 10 MG PO ×3 (05:43→19:49)
[2023-08-29] MEDS: Omeprazole 20 MG CAPSULE.DR PO (05:43)
[2023-08-29] MEDS: methylPREDNISolone Sod Succ 40 MG/ML VIAL IVPUSH ×2 (05:44→17:19)
[2023-08-29 06:22] LABS: Hematocrit 36.3 % (37.0-47.0); Hemoglobin 12.3 g/dl (12.0-16.0); Mean Corpuscular HGB Conc 33.9 g/dl (31.0-35.0); Mean Corpuscular Hemoglobin 30.7 pg (27.0-33.0); Mean Corpuscular Volume 90.5 fL (80.0-98.0); Mean Platelet Volume 10.6 fL (9.4-12.3); Platelet Count 213 X10*3/uL (160-400); Red Blood Count 4.01 X10*6/uL (4.20-5.50); Red Cell Distribution Width 13.2 % (11.0-16.0); White Blood Count 13.7 X10*3/uL (4.8-10.8)
[2023-08-29 06:27] LABS: PTT Heparin Drip 70.8 SEC (53-77.9)
[2023-08-29 06:35] LABS: Anion Gap 13 (12-20); Blood Urea Nitrogen 15 mg/dL (9-16); Calcium 9.3 mg/dL (8.4-10.2); Carbon Dioxide 23 mmol/L (22-29); Chloride 107 mmol/L (96-108); Creatinine Clr Calc Pharmacy 62.6; Estimated Glomerular Filt Rate > 60; Glucose Fasting 164 mg/dL (60-99); Sodium 139 mmol/L (135-145)
[2023-08-29 07:20] LABS: Glucose, Whole Blood 173 mg/dL (60-115)
[2023-08-29] MEDS: Albuterol/Iprat 2.5/0.5MG 3 ML AMPUL.NEB INHALE ×3 (08:17→15:18)
[2023-08-29] MEDS: Clopidogrel Bisulfate 75 MG TABLET PO (08:47)
[2023-08-29] MEDS: Aspirin Enteric Coated 81 MG TABLET.DR PO (08:47)
[2023-08-29] MEDS: DULoxetine HCl 60 MG CAPSULE.DR PO (08:47)
[2023-08-29] MEDS: Metoprolol Tartrate 25 MG TABLET PO ×2 (08:47→19:48)
[2023-08-29] MEDS: busPIRone HCl 10 MG TABLET PO ×2 (08:47→19:48)
[2023-08-29] MEDS: Pregabalin 150 MG CAPSULE PO ×3 (08:47→21:45)
[2023-08-29] MEDS: Insulin Lispro 100 UNIT/ML 3 ML VIAL SUBCUT ×3 (08:48→21:44)
[2023-08-29] MEDS: Nicotine 14 MG PATCH.TD24 TRANSDERMA (08:48)
--- NOTE | 2023-08-29 10:06 | P.PNIM_ITS ---
Subjective Subjective Date of Service: 08/29/23 Interval History: sob, weakness, chest pain Physical Exam 2 Vital Signs: Vital Signs: Last Vital Signs Temp 97.6 F 08/29/23 08:00 Pulse 65 08/29/23 08:18 Resp 20 08/29/23 08:18 BP 174/88 H 08/29/23 08:00 Pulse Ox 98 08/29/23 08:00 O2 Del Method Nasal Cannula 08/29/23 08:00 O2 Flow Rate 2 08/29/23 08:00 Oxygen Flow Rate 2 08/27/23 22:46 BMI result Body Mass Index 24.6 Const: General: cooperative, comfortable, alert, awake and in distress mild and respiratory Nutritional Appearance: thin Orientation/consciousness: p atient oriented x3 Limitations: no limitations HEENT: Head: Yes normocephalic and Yes atraumatic Neck: Neck: Yes trachea midline, Yes supple and Yes no JVD Resp: Effort & Inspection: normal respiratory effort Auscultation: no rales and diminished lung sounds Cardio: Jugular venous distension: no JVD Palpation: normal PMI Rate: r egular rate Rhythm: regular rhythm Heart sounds: S1 normal heart sound present, S2 normal heart sound present, no click, no gallops and Murmur heart sound present systolic early GI: Auscultation: normal bowel sounds Skin: General skin exam: no rashes or lesions noted Neuro: General: patient oriented x3 and no focal motor deficits Extrem: General: Yes no clubbing, cyanosis or edema Objective Data Active Medications Acetaminophen (Acetaminophen 325 Mg Tablet) 650 mg PO Q6H PRN PRN Reason: Pain, Mild (Pain Scale 1-3) Albuterol/Ipratropium (Albuterol/Iprat 2.5/0.5mg 3 Ml Ampul.Neb) 3 ml INHALE RQ4H WHILE AWAKE [facility] Last Admin: 08/29/23 08:17 Dose: 3 ml Documented By: NATALIE Albuterol/Ipratropium (Albuterol/Iprat 2.5/0.5mg 3 Ml Ampul.Neb) 3 ml INHALE Q4H PRN PRN Reason: Wheezing Aspirin (Aspirin Enteric Coated 81 Mg Tablet.) 81 mg PO DAILY [facility] Last Admin: 08/29/23 08:47 Dose: 81 mg Documented By: RADHA Atorvastatin Calcium (Atorvastatin Calcium 40 Mg Tablet) 40 mg PO BEDTIME [facility] Last Admin: 08/28/23 19:56 Dose: 40 mg Documented By: GALILEA Buspirone HCl (Buspirone Hcl 10 Mg Tablet) 10 mg PO BID [facility] Last Admin: 08/29/23 08:47 Dose: 10 mg Documented By: RADHA Clopidogrel Bisulfate (Clopidogrel Bisulfate 75 Mg Tablet) 75 mg PO DAILY [facility] Last Admin: 08/29/23 08:47 Dose: 75 mg Documented By: RADHA Dextrose (Dextrose 50 % 25 Gm/50 Ml Syringe) 25 gm IVPUSH Q15M PRN; Protocol PRN Reason: per Hypoglycemia Standing Ord. Duloxetine HCl (Duloxetine Hcl 60 Mg Capsule.Dr) 60 mg PO DAILY [facility] Last Admin: 08/29/23 08:47 Dose: 60 mg Documented By: RADHA Glucose (Glucose Gel 15 Gm Gel..Gram.) 15 gm PO Q15M PRN; Protocol PRN Reason: per Hypoglycemia Standing Ord. Heparin Sodium (Porcine) (Heparin Sodium,Porcine 5,000 Unit/Ml Vial) 2,400 unit 40 unit/kg (2400 unit) IVPUSH PROTOCOL BOLUS PRN; Protocol PRN Reason: 40 unit/kg - Heparin Protocol Last Admin: 08/28/23 19:21 Dose: 2,400 unit Documented By: GALILEA Heparin Sodium (Porcine) (Heparin Sodium,Porcine 5,000 Unit/Ml Vial) 4,700 unit 80 unit/kg (4700 unit) IVPUSH PROTOCOL BOLUS PRN; Protocol PRN Reason: 80 unit/kg - Heparin Protocol Heparin Sodium/Sodium Chloride (Heparin Sodium,Porcine/1/2ns) 25,000 unit in 250 mls @ 0 mls/hr IVCONT .Q0M [facility]; Protocol Last Titration: 08/29/23 02:22 Dose: 18 units/kg/hr, 10.61 mls/hr Documented By: GALILEA Co-signed By: GODFREY Azithromycin 500 mg/ Sodium (Chloride) 250 mls @ 125 mls/hr IV Q24H [facility] Last Infusion: 08/29/23 01:23 Dose: Infused Documented By: GALILEA Remdesivir 100 mg/ Sodium (Chloride) 230 mls @ 115 mls/hr IV Q24H [facility] Stop: 09/01/23 13:59 Insulin Human Lispro (Insulin Lispro 100 Unit/Ml 3 Ml Vial) 0 unit SUBCUT QIDACHS [facility]; Protocol Last Admin: 08/29/23 08:48 Dose: 2 unit Documented By: RADHA Melatonin (Melatonin 3 Mg Tablet) 6 mg PO BEDTIME PRN PRN Reason: Insomnia Last Admin: 08/28/23 22:21 Dose: 6 mg Documented By: GALILEA Methylprednisolone Sodium Succinate (Methylprednisolone Sod Succ 40 Mg/Ml Vial) 40 mg IVPUSH Q12H [facility] Last Admin: 08/29/23 05:44 Dose: 40 mg Documented By: GALILEA Metoprolol Tartrate (Metoprolol Tartrate 25 Mg Tablet) 25 mg PO BID [facility]; Protocol Last Admin: 08/29/23 08:47 Dose: 25 mg Documented By: RADHA Nicotine (Nicotine 14 Mg Patch.Td24) 14 mg TRANSDERMA DAILY [facility] Last Admin: 08/29/23 08:48 Dose: 14 mg Documented By: RADHA Omeprazole (Omeprazole 20 Mg Capsule.Dr) 20 mg PO DAILY@0630 [facility] Last Admin: 08/29/23 05:43 Dose: 20 mg Documented By: GALILEA Ondansetron HCl (Ondansetron Hcl 4 Mg/2 Ml Vial) 4 mg IVPUSH Q8H PRN PRN Reason: Nausea and Vomiting Oxycodone HCl (Oxycodone Hcl Immed Release 5 Mg Tablet) 10 mg PO Q6H PRN PRN Reason: Pain, Severe (Pain Scale 7-10) Last Admin: 08/29/23 05:43 Dose: 10 mg Documented By: GALILEA Pregabalin (Pregabalin 150 Mg Capsule) 150 mg PO TID [facility] Last Admin: 08/29/23 08:47 Dose: 150 mg Documented By: RADHA Labs 08/29/23 06:11 08/29/23 06:11 Labs: Laboratory Results - last 24 hr 08/28/23 08/28/23 08/28/23 06:05 12:07 16:48 MCV MCH MCHC RDW Plt Count MPV Absolute Nucleated RBC Nucleated RBC % (auto) aPTT Heparin Protocol 56.1 Anion Gap Estim Creat Clear Calc Estimated GFR POC Glucose 224 H Fasting Glucose Estimat Average Glucose 123 Hemoglobin A1c % 5.9 Calcium 08/28/23 08/28/23 08/29/23 18:11 19:43 01:25 MCV MCH MCHC RDW Plt Count MPV Absolute Nucleated RBC Nucleated RBC % (auto) aPTT Heparin Protocol 38.5 L D 42.3 L Anion Gap Estim Creat Clear Calc Estimated GFR POC Glucose 169 H Fasting Glucose Estimat Average Glucose Hemoglobin A1c % Calcium 08/29/23 08/29/23 06:11 07:14 MCV 90.5 MCH 30.7 MCHC 33.9 RDW 13.2 Plt Count 213 MPV 10.6 Absolute Nucleated RBC 0.000 Nucleated RBC % (auto) 0.0 aPTT Heparin Protocol 70.8 D Anion Gap 13 Estim Creat Clear Calc 62.6 Estimated GFR > 60 POC Glucose 173 H Fasting Glucose 164 H Estimat Average Glucose Hemoglobin A1c % Calcium 9.3 Microbiology Microbiology Results: Microbiology 08/27/23 21:48 Blood Culture - Preliminary Blood - Venous No growth after 24 hours. 08/27/23 19:33 Blood Culture - Preliminary Blood - Venous No growth after 24 hours. Assessment and Plan (1) NSTEMI (non-ST elevated myocardial infarction): Status: Acute Plan 72F PMH of COPD, chronic hypoxemic respiratory failure (2L/min ATC), multiple sclerosis, CAD, hypogammaglobulinemia with recurrent pneumonia/bronchitis, DMII, presented with sob, found to have covid and elevated troponins. Chronic hypoxic respiratory failure due to COPD on 2 L at home complicated by acute decompensation due to COVID-19 Nebs, azithromycin, steroids remdisivir (08/28/23) Elevated troponin NSTEMI versus demand ischemia Continue heparin 48hrs (ends at about 1130pm tonight), dual antiplatelet, statin, beta-guido echo - ? stress induced cardiomyopathy vs ischemic Cardiology following History of coronary disease, peripheral vascular disease dapl, statin MS stable hypogammaglobulinemia outpatient ivig hyperglycemia a1c 5.9 - preDM with hyperglycemia due to steroids insulin sliding scale close follow up as outpatient dvt prophyalxis - on hep iv full code reason for continued hospitalization: sob, treating nstemi Quality Stroke Does the patient have a stroke diagnosis?: No VTE Prior VTE?: No VTE Risk Level:: Medical - moderate - high VTE Device Contraindication: Treatment Not Indicated VTE Drug Contraindication: N/A - Med Ordered
--- NOTE | 2023-08-29 10:57 | HE.PHANOTE ---
RE HEPARIN RN called pharmacy regarding patient heparin drip. PTT was to be drawn for 1211 today and phlebotomy pulled it at 1027. PTT draw two hours early. Told RN not to consider the ptt that comes back from the early pull. Called phlebotomy to please pull level at 1211.
[2023-08-29 10:59] LABS: PTT Heparin Drip 69.1 SEC (53-77.9)
--- NOTE | 2023-08-29 11:08 | P.PNCA_ITS ---
Subjective Subjective Date of Service: 08/29/23 Principal diagnosis: NSTEMI Interval history: Patient underwent echocardiogram yesterday which shows apical wall motion abnormality consistent with most likely stress-induced cardiomyopathy. LAD territory infarction can not be ruled out. No heart failure symptoms. COPD is improving. Review of Systems Constitutional: Reports no additional constitutional complaints Eyes: Reports no additional eye complaints Cardiovascular: Denies chest pain and Reports dyspnea on exertion Respiratory: Reports dyspnea on exertion Musculoskeletal: Reports no additional musculoskeletal complaints Skin/Breast: Reports system reviewed and no additional complaints, except as docu Reports system reviewed and no additional complaints, except as documented Physical Exam Vital Signs: Last Vital Signs Temp 97.6 F 08/29/23 08:00 Pulse 65 08/29/23 08:18 Resp 20 08/29/23 08:18 BP 174/88 H 08/29/23 08:00 Pulse Ox 98 08/29/23 08:00 O2 Del Method Nasal Cannula 08/29/23 08:00 O2 Flow Rate 2 08/29/23 08:00 Oxygen Flow Rate 2 08/27/23 22:46 BMI result Body Mass Index 24.6 Const General: cooperative, comfortable, alert, awake and in distress mild and respiratory Nutritional Appearance: thin Orientation/consciousness: patient oriented x3 Limitations: no limitations HEENT Head: Yes normocephalic and Yes atraumatic Neck Neck: Yes trachea midline, Yes supple and Yes no JVD Resp Effort & Inspection: normal respiratory effort Auscultation: no rales and diminished lung sounds Cardio Jugular venous distension: no JVD Palpation: normal PMI Rate: regular rate Rhythm: regular rhythm Heart sounds: S1 normal heart sound present, S2 normal heart sound present, no click, no gallops and Murmur heart sound present systolic early GI Auscultation: normal bowel sounds Skin General skin exam: no rashes or lesions noted Neuro General: patient oriented x3 and no focal motor deficits Extrem General: Yes no clubbing, cyanosis or edema Objective Labs and Meds 08/29/23 06:11 08/29/23 06:11 Lab results: Laboratory Results - last 24 hr 08/28/23 08/28/23 08/28/23 06:05 12:07 16:48 WBC RBC Hgb Hct MCV MCH MCHC RDW Plt Count MPV Absolute Nucleated RBC Nucleated RBC % (auto) aPTT Heparin Protocol 56.1 Sodium Potassium Chloride Carbon Dioxide Anion Gap BUN Creatinine Estim Creat Clear Calc Estimated GFR POC Glucose 224 H Fasting Glucose Estimat Average Glucose 123 Hemoglobin A1c % 5.9 Calcium 08/28/23 08/28/23 08/29/23 18:11 19:43 01:25 WBC RBC Hgb Hct MCV MCH MCHC RDW Plt Count MPV Absolute Nucleated RBC Nucleated RBC % (auto) aPTT Heparin Protocol 38.5 L D 42.3 L Sodium Potassium Chloride Carbon Dioxide Anion Gap BUN Creatinine Estim Creat Clear Calc Estimated GFR POC Glucose 169 H Fasting Glucose Estimat Average Glucose Hemoglobin A1c % Calcium 08/29/23 08/29/23 08/29/23 06:11 07:14 10:27 WBC 13.7 H RBC 4.01 L Hgb 12.3 Hct 36.3 L MCV 90.5 MCH 30.7 MCHC 33.9 RDW 13.2 Plt Count 213 MPV 10.6 Absolute Nucleated RBC 0.000 Nucleated RBC % (auto) 0.0 aPTT Heparin Protocol 70.8 D 69.1 Sodium 139 Potassium 4.0 Chloride 107 Carbon Dioxide 23 Anion Gap 13 BUN 15 Creatinine 0.68 Estim Creat Clear Calc 62.6 Estimated GFR > 60 POC Glucose 173 H Fasting Glucose 164 H Estimat Average Glucose Hemoglobin A1c % Calcium 9.3 Progress Note: A&P Assessment and plan (1) NSTEMI (non-ST elevated myocardial infarction): Status: Acute Assessment and Plan: Elevated troponins consistent with NSTEMI most likely related to stress-induced cardiomyopathy related to COPD exacerbation. LAD territory myocardial infarction is likely given her extensive prior vascular history. Once stabilized from cardiac perspective patient will need outpatient perfusion study to evaluate for myocardial ischemia in the LAD territory which can be pursued through her strategic development manager's office. Continue dual antiplatelet therapy for now. Can stop IV heparin. Continue high-intensity statin therapy. Continue metoprolol and Norvasc therapy. Once discharge patient can have repeat echocardiogram limited in 2 weeks with her own strategic development manager. Will sign of the case. Thank you for allowing me to partake in her care Time Spent With Patient Time: Total time managing care of this patient today ____ minutes. Progress Note: Quality Stroke Does the patient have a stroke diagnosis?: No Procedures Date of Service Date of Service: 08/29/23
[2023-08-29 11:34] LABS: Glucose, Whole Blood 125 mg/dL (60-115)
[2023-08-29] MEDS: Remdesivir 100 MG in 0.9 % Sodium Chloride 230 ML 115 MG IV (11:54)
[2023-08-29 12:32] LABS: PTT Heparin Drip 70.1 SEC (53-77.9)
--- NOTE | 2023-08-29 14:04 | MHC.CM.PN ---
"IMM 08/29/23 DELIVERED TO BEDSIDE, EMR REVIEWED, PT ADMITTED W/DECOMPENSATED CHRONIC RF/COPD W/T COVID19, PT ALSO HAS MS. CM MET W/PT WHO REPORTS SHE LIVES W/HER , REPORTS HER ROLLATER WALKER IS BROKEN AND WAS ASKING FOR ASSISTANCE, PT AWARE SHE WOULD NEED A SCRIPT FOR REPAIR ROLLATER IF HER ROLLATER AT HOME IS UNDER 5YRS OR PT CAN GET A NEW WALKER FOR $125 AT [facility] IN [place] AFTER PT REPORTED HER THEY TOLD HER THAT HER INSURANCE WANTED $175 FOR A NEW ONE AND SHE DOES NOT AHVE THE FUNDS. PT PROVIDED W/INFO FOR THE [employer] AT [address] [place] [address] IN [place] EVERY SATURDAY. PT DOES REPORT SHE HAS A SHOWER CHAIR, BEDSIDE COMMODE, A FWW AND A ROLLATER WHICH IS BROKEN AND A CANE SHE DOES NOT USE. PT REPORTS SHE AND HER HELP EACH OTHER HOWEVER COULD USE HELP W/CHORES, CM OFFERED [facility] REFERRAL HOWEVER PT REPORTS THEY HAD RECENTLY COME TO THE HOUSE AND PT AND HER MAKE TOO MUCH MONEY AND THEY COULD NOT/DID NOT WANT TO PAY OUT OF POCKET COST. PT VERIFIES PCP AND HCP ON FILE ARE CORRECT, COVID VACC X3"
[2023-08-29 16:26] LABS: Glucose, Whole Blood 171 mg/dL (60-115)
[2023-08-29] MEDS: ondansetron HCL 4 MG/2 ML VIAL IVPUSH (19:48)
[2023-08-29] MEDS: Atorvastatin Calcium 40 MG TABLET PO (19:48)
[2023-08-29 20:55] LABS: Glucose, Whole Blood 167 mg/dL (60-115)
[2023-08-29] MEDS: Azithromycin 500 MG in 0.9 % Sodium Chloride 250 ML 125 MG IV (21:45)
[2023-08-30] VITALS (9 sets, daily range): BP systolic 141–162; BP diastolic 67–91; PULSE 74–88; RESP 16–20; TEMP 36.1–36.6; O2SAT 95–98
[2023-08-30] MEDS: oxyCODONE HCl Immed Release 5 MG TABLET 10 MG PO ×3 (01:45→20:46)
[2023-08-30] MEDS: Melatonin 3 MG TABLET 6 MG PO ×2 (01:49→20:45)
[2023-08-30] MEDS: Omeprazole 20 MG CAPSULE.DR PO (06:34)
[2023-08-30] MEDS: methylPREDNISolone Sod Succ 40 MG/ML VIAL IVPUSH (06:34)
[2023-08-30] MEDS: Acetaminophen 325 MG TABLET 650 MG PO ×2 (06:39→23:04)
[2023-08-30 06:44] LABS: Hematocrit 36.3 % (37.0-47.0); Hemoglobin 12.2 g/dl (12.0-16.0); Mean Corpuscular HGB Conc 33.6 g/dl (31.0-35.0); Mean Corpuscular Volume 92.1 fL (80.0-98.0); Mean Platelet Volume 10.9 fL (9.4-12.3); Platelet Count 254 X10*3/uL (160-400); Red Blood Count 3.94 X10*6/uL (4.20-5.50); Red Cell Distribution Width 13.3 % (11.0-16.0); White Blood Count 14.5 X10*3/uL (4.8-10.8)
[2023-08-30 06:55] LABS: Anion Gap 14 (12-20); Blood Urea Nitrogen 16 mg/dL (9-16); Calcium 8.7 mg/dL (8.4-10.2); Carbon Dioxide 24 mmol/L (22-29); Chloride 106 mmol/L (96-108); Creatinine Clr Calc Pharmacy 65.5; Estimated Glomerular Filt Rate > 60; Glucose Fasting 117 mg/dL (60-99); Potassium 4.6 mmol/L (3.3-5.1); Sodium 139 mmol/L (135-145)
[2023-08-30 07:16] LABS: Glucose, Whole Blood 110 mg/dL (60-115)
[2023-08-30] MEDS: Albuterol/Iprat 2.5/0.5MG 3 ML AMPUL.NEB INHALE ×3 (07:38→16:09)
--- NOTE | 2023-08-30 09:08 | P.PNIM_ITS ---
Subjective Subjective Date of Service: 08/30/23 Interval History: weakness Review of Systems Review of Systems: Yes all other systems are reviewed and are negative Physical Exam 2 Vital Signs: Vital Signs: Last Vital Signs Temp 97.0 F 08/30/23 07:26 Pulse 78 08/30/23 07:26 Resp 20 08/30/23 07:26 BP 153/83 H 08/30/23 07:26 Pulse Ox 97 08/30/23 07:26 O2 Del Method Nasal Cannula 08/30/23 07:26 O2 Flow Rate 3 08/30/23 07:26 Oxygen Flow Rate 2 08/27/23 22:46 BMI result Body Mass Index 24.6 Const: General: cooperative, comfortable, alert, awake and in distress mild and respiratory Nutritional Appearance: thin Orientation/consciousness: p atient oriented x3 Limitations: no limitations HEENT: Head: Yes normocephalic and Yes atraumatic Neck: Neck: Yes trachea midline, Yes supple and Yes no JVD Resp: Effort & Inspection: normal respiratory effort Auscultation: no rales and diminished lung sounds Cardio: Jugular venous distension: no JVD Palpation: normal PMI Rate: r egular rate Rhythm: regular rhythm Heart sounds: S1 normal heart sound present, S2 normal heart sound present, no click, no gallops and Murmur heart sound present systolic early GI: Auscultation: normal bowel sounds Skin: General skin exam: no rashes or lesions noted Neuro: General: patient oriented x3 and no focal motor deficits Extrem: General: Yes no clubbing, cyanosis or edema Objective Data Active Medications Acetaminophen (Acetaminophen 325 Mg Tablet) 650 mg PO Q6H PRN PRN Reason: Pain, Mild (Pain Scale 1-3) Last Admin: 08/30/23 06:39 Dose: 650 mg Documented By: SALMOD Albuterol/Ipratropium (Albuterol/Iprat 2.5/0.5mg 3 Ml Ampul.Neb) 3 ml INHALE RQ4H WHILE AWAKE [facility] Last Admin: 08/30/23 07:38 Dose: 3 ml Documented By: FINAM Albuterol/Ipratropium (Albuterol/Iprat 2.5/0.5mg 3 Ml Ampul.Neb) 3 ml INHALE Q4H PRN PRN Reason: Wheezing Aspirin (Aspirin Enteric Coated 81 Mg Tablet.Dr) 81 mg PO DAILY [facility] Last Admin: 08/29/23 08:47 Dose: 81 mg Documented By: RADHA Atorvastatin Calcium (Atorvastatin Calcium 40 Mg Tablet) 40 mg PO BEDTIME [facility] Last Admin: 08/29/23 19:48 Dose: 40 mg Documented By: JENN Buspirone HCl (Buspirone Hcl 10 Mg Tablet) 10 mg PO BID [facility] Last Admin: 08/29/23 19:48 Dose: 10 mg Documented By: JENN Clopidogrel Bisulfate (Clopidogrel Bisulfate 75 Mg Tablet) 75 mg PO DAILY [facility] Last Admin: 08/29/23 08:47 Dose: 75 mg Documented By: RADHA Dextrose (Dextrose 50 % 25 Gm/50 Ml Syringe) 25 gm IVPUSH Q15M PRN; Protocol PRN Reason: per Hypoglycemia Standing Ord. Duloxetine HCl (Duloxetine Hcl 60 Mg Capsule.) 60 mg PO DAILY [facility] Last Admin: 08/29/23 08:47 Dose: 60 mg Documented By: RADHA Enoxaparin Sodium (Enoxaparin Sodium 40 Mg/0.4 Ml Syringe) 40 mg SUBCUT Q24H [facility] Glucose (Glucose Gel 15 Gm Gel..Gram.) 15 gm PO Q15M PRN; Protocol PRN Reason: per Hypoglycemia Standing Ord. Azithromycin 500 mg/ Sodium (Chloride) 250 mls @ 125 mls/hr IV Q24H [facility] Last Infusion: 08/30/23 01:23 Dose: Infused Documented By: JOSE Remdesivir 100 mg/ Sodium (Chloride) 230 mls @ 115 mls/hr IV Q24H [facility] Stop: 09/01/23 13:59 Last Infusion: 08/29/23 14:25 Dose: Infused Documented By: RADHA Insulin Human Lispro (Insulin Lispro 100 Unit/Ml 3 Ml Vial) 0 unit SUBCUT QIDACHS [facility]; Protocol Last Admin: 08/29/23 21:44 Dose: 2 unit Documented By: JENN Melatonin (Melatonin 3 Mg Tablet) 6 mg PO BEDTIME PRN PRN Reason: Insomnia Last Admin: 08/30/23 01:49 Dose: 6 mg Documented By: JOSE Methylprednisolone Sodium Succinate (Methylprednisolone Sod Succ 40 Mg/Ml Vial) 40 mg IVPUSH Q12H [facility] Last Admin: 08/30/23 06:34 Dose: 40 mg Documented By: JOSE Metoprolol Tartrate (Metoprolol Tartrate 25 Mg Tablet) 25 mg PO BID [facility]; Protocol Last Admin: 08/29/23 19:48 Dose: 25 mg Documented By: JENN Nicotine (Nicotine 14 Mg Patch.Td24) 14 mg TRANSDERMA DAILY [facility] Last Admin: 08/29/23 08:48 Dose: 14 mg Documented By: RADHA Omeprazole (Omeprazole 20 Mg Capsule.Dr) 20 mg PO DAILY@0630 [facility] Last Admin: 08/30/23 06:34 Dose: 20 mg Documented By: JOSE Ondansetron HCl (Ondansetron Hcl 4 Mg/2 Ml Vial) 4 mg IVPUSH Q8H PRN PRN Reason: Nausea and Vomiting Last Admin: 08/29/23 19:48 Dose: 4 mg Documented By: JENN Oxycodone HCl (Oxycodone Hcl Immed Release 5 Mg Tablet) 10 mg PO Q6H PRN PRN Reason: Pain, Severe (Pain Scale 7-10) Last Admin: 08/30/23 01:45 Dose: 10 mg Documented By: JOSE Pregabalin (Pregabalin 150 Mg Capsule) 150 mg PO TID [facility] Last Admin: 08/29/23 21:45 Dose: 150 mg Documented By: JENN Labs 08/30/23 06:27 08/30/23 06:27 Labs: Laboratory Results - last 24 hr 08/29/23 08/29/23 08/29/23 10:27 11:30 12:17 MCV MCH MCHC RDW Plt Count MPV Absolute Nucleated RBC Nucleated RBC % (auto) aPTT Heparin Protocol 69.1 70.1 Anion Gap Estim Creat Clear Calc Estimated GFR POC Glucose 125 H Fasting Glucose Calcium 08/29/23 08/29/23 08/30/23 16:15 20:50 06:27 MCV 92.1 MCH 31.0 MCHC 33.6 RDW 13.3 Plt Count 254 MPV 10.9 Absolute Nucleated RBC 0.000 Nucleated RBC % (auto) 0.0 aPTT Heparin Protocol Anion Gap 14 Estim Creat Clear Calc 65.5 Estimated GFR > 60 POC Glucose 171 H 167 H Fasting Glucose 117 H Calcium 8.7 D 08/30/23 07:12 MCV MCH MCHC RDW Plt Count MPV Absolute Nucleated RBC Nucleated RBC % (auto) aPTT Heparin Protocol Anion Gap Estim Creat Clear Calc Estimated GFR POC Glucose 110 Fasting Glucose Calcium Microbiology Microbiology Results: Microbiology 08/27/23 21:48 Blood Culture - Preliminary Blood - Venous No growth after 48 hours. 08/27/23 19:33 Blood Culture - Preliminary Blood - Venous No growth after 48 hours. Assessment and Plan (1) NSTEMI (non-ST elevated myocardial infarction): Status: Acute Plan 72F PMH of COPD, chronic hypoxemic respiratory failure (2L/min ATC), multiple sclerosis, CAD, hypogammaglobulinemia with recurrent pneumonia/bronchitis, DMII, presented with sob, found to have covid and elevated troponins. Chronic hypoxic respiratory failure due to COPD on 2 L at home complicated by acute decompensation due to COVID-19 Nebs, azithromycin, steroids remdisivir (started 08/28/23) Elevated troponin NSTEMI versus demand ischemia iv heparin completed, continue dual antiplatelet, statin, beta-guido echo - ? stress induced cardiomyopathy vs ischemic Cardiology appreciated - outpatient follow up for repeat echo, stress test History of coronary disease, peripheral vascular disease dapl, statin MS stable hypogammaglobulinemia outpatient ivig hyperglycemia a1c 5.9 - preDM with hyperglycemia due to steroids insulin sliding scale close follow up as outpatient dvt prophyalxis - on hep iv full code reason for continued hospitalization: sob, remdisivir course Quality Stroke Does the patient have a stroke diagnosis?: No VTE Prior VTE?: No VTE Risk Level:: Medical - moderate - high VTE Device Contraindication: Treatment Not Indicated VTE Drug Contraindication: N/A - Med Ordered
[2023-08-30] MEDS: busPIRone HCl 10 MG TABLET PO ×2 (09:46→20:46)
[2023-08-30] MEDS: Metoprolol Tartrate 25 MG TABLET PO ×2 (09:46→20:45)
[2023-08-30] MEDS: DULoxetine HCl 60 MG CAPSULE.DR PO (09:46)
[2023-08-30] MEDS: Aspirin Enteric Coated 81 MG TABLET.DR PO (09:46)
[2023-08-30] MEDS: Pregabalin 150 MG CAPSULE PO ×3 (09:46→20:46)
[2023-08-30] MEDS: Clopidogrel Bisulfate 75 MG TABLET PO (09:46)
[2023-08-30] MEDS: Enoxaparin Sodium 40 MG/0.4 ML SYRINGE SUBCUT (09:46)
[2023-08-30] MEDS: Nicotine 14 MG PATCH.TD24 TRANSDERMA (09:47)
[2023-08-30 10:56] LABS: Glucose, Whole Blood 201 mg/dL (60-115)
[2023-08-30] MEDS: Remdesivir 100 MG in 0.9 % Sodium Chloride 230 ML 115 MG IV (13:05)
[2023-08-30] MEDS: Insulin Lispro 100 UNIT/ML 3 ML VIAL SUBCUT ×3 (13:05→21:01)
[2023-08-30 16:47] LABS: Glucose, Whole Blood 181 mg/dL (60-115)
[2023-08-30 20:41] LABS: Glucose, Whole Blood 171 mg/dL (60-115)
[2023-08-30] MEDS: Atorvastatin Calcium 40 MG TABLET PO (20:45)
[2023-08-30] MEDS: Azithromycin 500 MG in 0.9 % Sodium Chloride 250 ML 125 MG IV (23:04)
[2023-08-31] VITALS (28 sets, daily range): BP systolic 112–184; BP diastolic 52–94; PULSE 70–99; RESP 12–41; TEMP 36.3–37.5; O2SAT 87–98
--- NOTE | 2023-08-31 | ECG_ITS ---
Test Reason : Arrhythmia Blood Pressure : / mmHG Vent. Rate : 081 BPM Atrial Rate : 081 BPM P-R Int : 138 ms QRS Dur : 088 ms QT Int : 384 ms P-R-T Axes : 063 -23 -83 degrees QTc Int : 446 ms Normal sinus rhythm ST & Marked T wave abnormality, consider anterolateral ischemia Abnormal ECG When compared with ECG of 31-AUG-2023 09:53, Premature ventricular complexes are no longer Present Referred By: Amena Pak Electronically Signed By:PARAM CASTELAN MD
[2023-08-31] MEDS: oxyCODONE HCl Immed Release 5 MG TABLET 10 MG PO ×3 (04:30→21:27)
[2023-08-31 05:01] LABS: Glucose, Whole Blood 134 mg/dL (60-115)
--- NOTE | 2023-08-31 05:04 | ECG_ITS ---
Test Reason : cp Blood Pressure : / mmHG Vent. Rate : 137 BPM Atrial Rate : 137 BPM P-R Int : 140 ms QRS Dur : 078 ms QT Int : 290 ms P-R-T Axes : 053 -13 066 degrees QTc Int : 437 ms Sinus tachycardia with frequent , and consecutive Premature ventricular complexes Possible Left atrial enlargement Septal infarct , age undetermined ST & T wave abnormality, consider lateral ischemia Abnormal ECG When compared with ECG of 27-AUG-2023 19:17, Significant changes have occurred Referred By: Amena Pak Electronically Signed By:PARAM CASTELAN MD
[2023-08-31 05:21] LABS: Venous Blood Gas Refer to POC result
[2023-08-31 05:23] LABS: ABG HCO3 24 mmol/L (22-26); ABG pCO2 70 mmHg (32-45); ABG pH 7.14 (7.35-7.45); ABG pO2 74 mmHg (83-108)
[2023-08-31 05:25] LABS: VBG Base Excess -6.5 mmol/L; VBG HCO3 18 mmol/L (22-26); VBG pCO2 36 mmHg; VBG pH 7.31 (7.32-7.43); VBG pO2 128 mmHg
[2023-08-31 05:27] LABS: ABG Refer to POC result
[2023-08-31 05:27] LABS: Hematocrit 44.5 % (37.0-47.0); Hemoglobin 14.2 g/dl (12.0-16.0); Mean Corpuscular HGB Conc 31.9 g/dl (31.0-35.0); Mean Corpuscular Hemoglobin 30.9 pg (27.0-33.0); Mean Corpuscular Volume 96.7 fL (80.0-98.0); Mean Platelet Volume 11.1 fL (9.4-12.3); NRBC Pct Auto 0.1 /100WBC (0.0-0.2); Platelet Count 330 X10*3/uL (160-400); Red Cell Distribution Width 13.5 % (11.0-16.0); White Blood Count 18.7 X10*3/uL (4.8-10.8)
--- NOTE | 2023-08-31 05:29 | P.EN_ITS ---
Event Note Date of Service: 08/31/23 Event Note: Rapid response was called as patient with sudden onset of dyspnea and tachycardia. Upon evaluation, patient with bilateral crackles and significant tachypnea. Concern for pulmonary edema. Administered IV Lasix 40 mg stat and put patient on CPAP. Ordered chest x-ray, troponin, BNP, ABG, CBC and CMP. Patient without chest discomfort. She was tachycardic with blood pressure systolic in the 180s. No improvement noted on CPAP. Administered IV morphine and IV labetalol. Called Dr. Pak, garbage truck dispatcher for further evaluation. ABG resulted with respiratory acidosis. Will transfer the patient to ICU. Total time spent= 45 minutes Time Spent With Patient Time: Total time managing care of this patient today ____ minutes.
[2023-08-31 05:38] LABS: Alanine Aminotransferase 79 U/L (0-31); Albumin Level 3.8 g/dL (3.5-5.0); Alkaline Phosphatase 108 U/L (39-117); Anion Gap 19 (12-20); Aspartate Amino Transferase 59 U/L (5-31); Bilirubin Total 0.2 mg/dL (0.0-1.0); Blood Urea Nitrogen 16 mg/dL (9-16); Calcium 9.1 mg/dL (8.4-10.2); Carbon Dioxide 21 mmol/L (22-29); Chloride 102 mmol/L (96-108); Creatinine Clr Calc Pharmacy 57.5; Estimated Glomerular Filt Rate > 60; Glucose Random 243 mg/dL (60-115); Potassium 4.9 mmol/L (3.3-5.1); Sodium 137 mmol/L (135-145); Total Protein 6.7 g/dL (6.5-8.0)
--- NOTE | 2023-08-31 05:50 | P.PNCC_ITS ---
Critical Care Event Note Summary Date of Service: 08/31/23 <SHANIQUA Blas - Last Filed: 08/31/23 19:34> Code activated: No <Amena Pak MD - Last Filed: 08/31/23 09:30> Narrative: This case had a high probability of a clinically significant, sudden, or life threatening deterioration of this patient's condition which required my full and direct attention, intervention and personal management. <SHANIQUA Blas - Last Filed: 08/31/23 19:34> Critical Care Time (minutes): 90 <SHANIQUA Blas - Last Filed: 08/31/23 19:34> Comment: Patient transferred to the ICU due to hypoxic respiratory failure with hypercapnia and respiratory acidosis all of which appears to be multifactorial in the setting of flash pulmonary edema and COPD exacerbation. HPI/ brief hospital course: 72-year-old female who has underlying history of chronic hypoxic respiratory failure due to COPD who normally uses oxygen at home at 2 L nasal cannula, hypertension, chronic opiate dependence, MS, still a smoker, anxiety, mood disorder, chronic back pain, hyperlipidemia, coronary disease post angioplasty and stent and peripheral vascular disease, GERD among multiple other things, had been admitted to this hospital on 08/27/2023 due to acute on chronic respiratory failure in the setting of COVID 19 infection, COPD exacerbation, who was admitted to the floor and was being treated appropriately with steroids, Zithromax, remdesivir, who had an elevated troponin in the setting of possible demand ischemia (NSTEMI) initially treated with IV heparin and seen by [facility] rdiology but subsequently placed on subQ Lovenox.? Patient had been receiving nebulizers per protocol and today nurse noted that the patient was having some trouble breathing called respiratory therapist to administer a breathing treatment but it was then noted that the patient was in significant respiratory distress, a rapid response was called and subsequently we were involved in the care for the patient appeared to be quite tachypneic, hypoxic and struggling to breathe. ?Patient was placed on CPAP. During my evaluation, it was clear that the patient was in significant respiratory distress, weak evaluation of her lung joiner reveal significant crackles and her blood pressure review showed that she had been hypertensive in the 180s for the past 2 hours or so along with a heart rate in the 140s.? A blood gas was obtained, this revealed acute respiratory acidosis, the patient was then switched to BiPAP, given opioids and transferred to the ICU for further care. PHYSICAL EXAM: VS: ?184/86, 86, 40, 87% on CPAP General:? Alert; ?appears to be in significant respiratory distress using accessory muscles, grayish color to her face with mild lip cyanosis Skin:? Intact, no lesions, edema, erythema, HEENT:? Head is normocephalic, atraumatic, pupils equal round reactive to light accommodation bilaterally.? Extraocular movements appear intact.? Buccal mucosa is dry., Neck is supple without lymphadenopathy. Cardiac:? Clear S1-S2, tachycardic at 140 beats per minute no murmurs rubs or gallops. Pulmonary:? Bilateral crackles right more than left with poor inspiratory effort.? Minimal expiratory wheezing. Abdomen:? Protuberant, positive bowel sounds in all 4 quadrants.? Soft, nontender, no rebound or guarding.? Musculoskeletal:? Moving all 4 extremities upon request a major joints, there is no crepitus or tenderness.? The strength is 5/5 bilaterally and throughout all 4 extremities.? There is no leg edema , no calf tenderness , no leg asymmetry.? Gait not assessed at this point. Neurologic:? As above, cranial nerves 2-12 are grossly intact.? No focal deficits noted. Vascular:? 2+ pulses upper and lower extremities distally. ?2nd capillary refill finger and toes bilaterally upper and lower extremities. Stat laboratories reveal white count of 18.7, H&H of 14.2, hematocrit 44.5, platelets 330 ABG pH 7.1, pCO2 70, PO2 74, HC03 24 Sodium 137, potassium 4.9, chloride 102, carbon dioxide 20 gone, BUN 16, creatinine 0.74.? Troponin 98.4 (down from the 2 thousands), BNP 2552. CXR IMPRESSION: Pulmonary vascular congestion, diffuse increased markings and diffuse faint lung opacities. Consider interstitial and early pulmonary edema. ASSESSMENT : 1. Acute on chronic hypoxic/hypercarbic respiratory failure 2. Worsening COPD exacerbation 3. Flash pulmonary edema due to uncontrolled hypertension 4. Acute respiratory acidosis with metabolic component 5. Elevated troponin likely demand ischemia 6. Improve reactive sinus tachycardia 7. Acute COVID-19 infection 8. Uncontrolled hypertension PLAN OF CARE: Patient will be transferred to the ICU, monitor vital signs, I and O's, [place] catheter to be placed, patient was placed on BiPAP, FiO2 will be lowered with goal sat of 88-90% given that she has a retainer.? DuoNebs now and schedule, albuterol p.r.n., will continue with steroids and Zithromax.? Patient receiving remdesivir.? We will start her on famotidine.? Continue with aspirin, statin, Plavix.? Nitro paste will be applied to the chest to help treat her pulmonary edema / ?CHF. Had a lengthy discussion with the patient's who is also the healthcare proxy and I updated him on the current clinical scenario, in the presence of the nursing automatic machines supervisor Nahomy he did authorize us to intubate and place central line if this was needed although there is some improvement of the patient after placing her on BiPAP so I do not think that this is necessary at this point. Patient clearly has signs of fluid overload as well, besides controlling her blood pressure, will diurese her with Lasix 40 mg b.i.d..? Monitor renal funct ion electrolytes. Continue to use opioids for work of breathing, monitor for muscle fatigue, if this happens, the patient will need to be intubated. Even though the patient became hypoxic, is tachycardic this is all reactive to her underlying pulmonary process, I do not think the patient is septic, I do not think the patient needs IV fluids; if anything this last will be counterproductive for the patient is already in heart failure. GI PROPHYLAXIS: ?Famotidine DVT PROPHYLAXIS:? Lovenox subQ Critical care time used for critical evaluation of this patient, diagnosis, treatment and coordination of care, review her records and documentation TOTAL CRITICAL CARE TIME ?90 ?MIN . discussion and coordination with consultants, completely separate from any procedures performed. Patient's care was discussed in detail with Dr. Pak who is aware of all the above as well as the plan of care for this patient. <SHANIQUA Blas - Last Filed: 08/31/23 19:34>
[2023-08-31 05:53] LABS: B Type Natriuretic Peptide 2552 pg/mL (<100)
[2023-08-31 05:55] LABS: Troponin-I High Sensitivity 98.4 ng/L (<3.5-17.0)
[2023-08-31 06:16] LABS: Phosphorus 5.1 mg/dL (2.7-4.5)
[2023-08-31] MEDS: methylPREDNISolone Sod Succ 40 MG/ML VIAL IVPUSH ×3 (06:20→18:01)
[2023-08-31] MEDS: Nitroglycerin 2 % Oint 1 GM Packet 0.5 INCH TRANSDERMA (06:20)
--- NOTE | 2023-08-31 07:16 | PC.NURSE ---
Around 0445, pt rings call norman and yelling for help from sitting at side of bed. Pt sitting at bedside, dypneic on observation, stating she can not breath. 2L nc 90% within 88-92% range. BP 165 systolic, HR sinus tach 140s-150s. O2 increased 4L nc with minimal effectiveness per pt. Rapid response called and MD, nurse supervisor chlorine liquefaction, RT, and charge nurse at bedside around 0450. Pt O2 desat to 84% at bedside with persistent and worsening dyspnea. CPAP applied with effect. Pt high fowlers position. 40mg IV lasix, 2mg morphine IV, zofran 4mg given. BNP, Troponin, ABG ordered and drawn. EKG, CXR performed at bedside. ICU provider at bedside. BP increase as high as 195/115, HR 140s+. IV Lopressor administered. Pt transfer to ICU. Report given to ICU nurse Luna.
[2023-08-31 07:32] LABS: Venous Blood Gas Refer to POC result
[2023-08-31 07:36] LABS: VBG Base Excess 0.4 mmol/L; VBG HCO3 20 mmol/L (22-26); VBG pCO2 23 mmHg; VBG pH 7.55 (7.32-7.43); VBG pO2 215 mmHg
[2023-08-31 08:02] LABS: Glucose, Whole Blood 173 mg/dL (60-115)
[2023-08-31] MEDS: Nicotine 14 MG PATCH.TD24 TRANSDERMA (08:17)
[2023-08-31] MEDS: Insulin Lispro 100 UNIT/ML 3 ML VIAL SUBCUT ×3 (08:17→21:27)
[2023-08-31] MEDS: Famotidine/PF 20 MG/2 ML VIAL IVPUSH (08:17)
[2023-08-31] MEDS: Enoxaparin Sodium 40 MG/0.4 ML SYRINGE SUBCUT (08:18)
[2023-08-31] MEDS: Albuterol/Iprat 2.5/0.5MG 3 ML AMPUL.NEB INHALE ×5 (08:52→23:09)
--- NOTE | 2023-08-31 09:33 | ECG_ITS ---
Test Reason : Troponinemia Blood Pressure : / mmHG Vent. Rate : 087 BPM Atrial Rate : 087 BPM P-R Int : 130 ms QRS Dur : 082 ms QT Int : 374 ms P-R-T Axes : 068 -23 -63 degrees QTc Int : 450 ms Sinus rhythm with occasional Premature ventricular complexes ST & T wave abnormality, consider inferior ischemia ST & T wave abnormality, consider anterolateral ischemia Abnormal ECG When compared with ECG of 31-AUG-2023 05:04, Vent. rate has decreased BY 50 BPM Criteria for Septal infarct are no longer Present Inverted T waves have replaced nonspecific T wave abnormality in Inferior leads T wave inversion now evident in Anterior leads Referred By: Amena Pak Electronically Signed By:PARAM CASTELAN MD
[2023-08-31 11:53] LABS: Glucose, Whole Blood 134 mg/dL (60-115)
--- NOTE | 2023-08-31 11:59 | PC.RT ---
Pt awake and coop, transitioned to 3 lpm etco2 n/c and shen well. RN/MD aware.
[2023-08-31] MEDS: DULoxetine HCl 60 MG CAPSULE.DR PO (12:10)
[2023-08-31] MEDS: Clopidogrel Bisulfate 75 MG TABLET PO (12:11)
[2023-08-31] MEDS: busPIRone HCl 10 MG TABLET PO ×2 (12:11→21:26)
[2023-08-31] MEDS: Metoprolol Tartrate 25 MG TABLET PO ×2 (12:11→21:27)
[2023-08-31] MEDS: Aspirin Enteric Coated 81 MG TABLET.DR PO (12:12)
[2023-08-31] MEDS: Pregabalin 150 MG CAPSULE PO ×3 (12:12→21:26)
[2023-08-31] MEDS: Remdesivir 100 MG in 0.9 % Sodium Chloride 230 ML 115 MG IV (14:58)
[2023-08-31 16:43] LABS: Glucose, Whole Blood 202 mg/dL (60-115)
[2023-08-31] MEDS: Furosemide 40 MG/4 ML VIAL IVPUSH (16:52)
[2023-08-31 17:56] LABS: Venous Blood Gas Refer to POC result
[2023-08-31 18:00] LABS: VBG Base Excess 4.8 mmol/L; VBG HCO3 26 mmol/L (22-26); VBG pCO2 32 mmHg; VBG pH 7.53 (7.32-7.43); VBG pO2 152 mmHg
[2023-08-31 18:01] LABS: Anion Gap 16 (12-20); Blood Urea Nitrogen 20 mg/dL (9-16); Calcium 8.8 mg/dL (8.4-10.2); Carbon Dioxide 25 mmol/L (22-29); Chloride 100 mmol/L (96-108); Creatinine Clr Calc Pharmacy 45.7; Estimated Glomerular Filt Rate 59; Glucose Random 258 mg/dL (60-115); Magnesium 1.7 mg/dL (1.6-2.6); Potassium 4.2 mmol/L (3.3-5.1); Sodium 137 mmol/L (135-145)
[2023-08-31] MEDS: Heparin Sodium,Porcine 5,000 UNIT/ML VIAL 3500 UNIT IVPUSH (18:01)
[2023-08-31 18:23] LABS: TSH reflex Free T4 0.37 uIU/mL (0.32-4.0)
[2023-08-31 18:35] LABS: Hemoglobin 13.2 g/dl (12.0-16.0); Mean Corpuscular HGB Conc 33.8 g/dl (31.0-35.0); Mean Corpuscular Hemoglobin 31.3 pg (27.0-33.0); Mean Corpuscular Volume 92.4 fL (80.0-98.0); NRBC Pct Auto 0.2 /100WBC (0.0-0.2); Platelet Count 283 X10*3/uL (160-400); Red Blood Count 4.22 X10*6/uL (4.20-5.50); Red Cell Distribution Width 13.4 % (11.0-16.0); White Blood Count 12.2 X10*3/uL (4.8-10.8)
[2023-08-31 18:41] LABS: Prothrombin Time 11.6 SEC (11.1-13.3)
[2023-08-31 18:44] LABS: PTT Heparin Drip 25.7 SEC (53-77.9)
[2023-08-31] MEDS: Heparin Sodium,Porcine/1/2NS 25,000 UNIT/250 ML IV.SOLN 7.08 UNIT IVCONT (19:33)
[2023-08-31 21:08] LABS: Glucose, Whole Blood 251 mg/dL (60-115)
[2023-08-31] MEDS: Atorvastatin Calcium 40 MG TABLET PO (21:26)
[2023-08-31 22:24] LABS: Troponin-I High Sensitivity 172.4 ng/L (<3.5-17.0)
[2023-08-31] MEDS: Magnesium Sulfate/H2O 2 GM/50 ML PIGGYBACK IV (23:19)
[2023-08-31] MEDS: Azithromycin 500 MG in 0.9 % Sodium Chloride 250 ML 125 MG IV (23:20)
[2023-09-01] VITALS (17 sets, daily range): BP systolic 110–150; BP diastolic 59–82; PULSE 71–93; RESP 11–23; TEMP 36.7–37.5; O2SAT 90–100
[2023-09-01] MEDS: methylPREDNISolone Sod Succ 40 MG/ML VIAL IVPUSH ×3 (00:59→13:17)
[2023-09-01 02:01] LABS: PTT Heparin Drip 48.6 SEC (53-77.9)
[2023-09-01] MEDS: Heparin Sodium,Porcine 5,000 UNIT/ML VIAL 2400 UNIT IVPUSH (02:11)
[2023-09-01] MEDS: oxyCODONE HCl Immed Release 5 MG TABLET 10 MG PO ×2 (03:45→09:00)
[2023-09-01 04:45] LABS: VBG Base Excess 10.9 mmol/L; VBG HCO3 34 mmol/L (22-26); VBG pCO2 43 mmHg; VBG pH 7.51 (7.32-7.43); VBG pO2 57 mmHg
[2023-09-01 04:46] LABS: Venous Blood Gas Refer to POC result
[2023-09-01] MEDS: Furosemide 40 MG/4 ML VIAL IVPUSH (04:54)
[2023-09-01 04:57] LABS: MANUAL DIFF FLAG NO
[2023-09-01 04:59] LABS: Basophils Percent Auto 0.2 % (0-2); Hematocrit 35.8 % (37.0-47.0); Hemoglobin 12.1 g/dl (12.0-16.0); Imm Gran Abs Auto 0.23 X10*3/uL (0.00-0.03); Imm Gran Pct Auto 2.2 % (0.0-0.4); Lymphocytes Percent Auto 9.5 % (20-40); Mean Corpuscular HGB Conc 33.8 g/dl (31.0-35.0); Mean Corpuscular Hemoglobin 30.6 pg (27.0-33.0); Mean Corpuscular Volume 90.6 fL (80.0-98.0); Mean Platelet Volume 10.9 fL (9.4-12.3); Monocytes Absolute Auto 0.3 X10*3/uL (0.1-1.2); Monocytes Percent Auto 2.7 % (2-11); Neutrophils Absolute Auto 9.1 x10*3/uL (2.0-8.3); Neutrophils Percent Auto 85.4 % (45-73); Platelet Count 277 X10*3/uL (160-400); Red Blood Count 3.95 X10*6/uL (4.20-5.50); Red Cell Distribution Width 13.2 % (11.0-16.0); White Blood Count 10.6 X10*3/uL (4.8-10.8)
[2023-09-01 05:08] LABS: Prothrombin Time 12.7 SEC (11.1-13.3)
[2023-09-01 05:15] LABS: Anion Gap 14 (12-20); Blood Urea Nitrogen 18 mg/dL (9-16); Calcium 8.3 mg/dL (8.4-10.2); Carbon Dioxide 31 mmol/L (22-29); Chloride 97 mmol/L (96-108); Creatinine Clr Calc Pharmacy 56.7; Estimated Glomerular Filt Rate > 60; Glucose Random 183 mg/dL (60-115); Potassium 4.2 mmol/L (3.3-5.1); Sodium 138 mmol/L (135-145)
[2023-09-01 07:18] LABS: Glucose, Whole Blood 195 mg/dL (60-115)
[2023-09-01] MEDS: Insulin Lispro 100 UNIT/ML 3 ML VIAL SUBCUT ×2 (07:28→11:21)
[2023-09-01] MEDS: Nicotine 14 MG PATCH.TD24 TRANSDERMA (07:29)
[2023-09-01] MEDS: Clopidogrel Bisulfate 75 MG TABLET PO (07:29)
[2023-09-01] MEDS: Famotidine/PF 20 MG/2 ML VIAL IVPUSH (07:29)
[2023-09-01] MEDS: Aspirin Enteric Coated 81 MG TABLET.DR PO (07:29)
[2023-09-01] MEDS: DULoxetine HCl 60 MG CAPSULE.DR PO (07:30)
[2023-09-01] MEDS: Pregabalin 150 MG CAPSULE PO (07:30)
[2023-09-01] MEDS: busPIRone HCl 10 MG TABLET PO (07:30)
[2023-09-01] MEDS: Metoprolol Tartrate 25 MG TABLET PO (07:30)
[2023-09-01] MEDS: Albuterol/Iprat 2.5/0.5MG 3 ML AMPUL.NEB INHALE ×2 (07:59→11:48)
--- NOTE | 2023-09-01 08:24 | PM.CCPN ---
Subjective Subjective Date of Service: 09/01/23 Interval History: c/f run of ventricular tachycardia yesterday PM, though patient otherwise asymptomatic; repeat EKG re-demonstrating T wave inversions anterior-lateral leads; repeat troponin not markedly increased; case discussed with Dr. Gomez, recommended re-starting heparin gtt, likely transfer for cath Critical Care Time (minutes): 60 Physical Exam Vital Signs: Vital Signs: Last Vital Signs Temp 98.6 F 09/01/23 08:00 Pulse 86 09/01/23 08:03 Resp 16 09/01/23 08:03 BP 131/71 09/01/23 08:00 Pulse Ox 99 09/01/23 08:00 O2 Del Method Nasal Cannula 09/01/23 08:00 O2 Flow Rate 3 09/01/23 08:00 FiO2 28 08/31/23 11:00 Oxygen Flow Rate 2 08/27/23 22:46 BMI result Body Mass Index 24.6 Const: General: no acute distress, well developed, alert, awake and Physically active Orientation/consciousness: patient oriented x3 HEENT: Head: Yes normal to inspection, Yes normocephalic and Yes atraumatic Eyes: General: appearance normal, both eyes and all related structures Neck: Neck: Yes normal visual inspection, Yes full ROM and Yes supple Chest: Chest palpation & inspection: normal inspection of the chest Resp: Other: appreciable rales throughout; no appreciable rhonchi, wheezing Cardio: Rate: regular rate Rhythm: regular rhythm GI: Inspection: Yes normal to inspection, No Abdominal wall edema and No distended Palpation (GI): Soft to palpation, not firm, nontender, no guarding and not rigid Skin: General skin exam: no rashes or lesions noted Neuro: General: patient oriented x3, tone normal, moves all extremities and no focal motor deficits Extrem: Other: 1+ pitting edema to bilateral shins Psych: Appearance: grossly normal Objective Data Labs 09/01/23 04:40 09/01/23 04:40 Labs: Laboratory Results - last 24 hr 08/31/23 08/31/23 08/31/23 09:56 11:47 13:00 WBC RBC Hgb Hct MCV MCH MCHC RDW Plt Count MPV Immature Gran % (Auto) Neut % (Auto) Lymph % (Auto) [place] % (Auto) Eos % (Auto) Baso % (Auto) Lymph # (Auto) [place] # (Auto) Eos # (Auto) Baso # (Auto) Abs Immat Gran (auto) Absolute Neuts (auto) Absolute Nucleated RBC Nucleated RBC % (auto) PT INR aPTT Heparin Protocol VBG pH VBG pCO2 VBG pO2 VBG HCO3 VBG O2 Saturation VBG Base Excess Sodium Potassium Chloride Carbon Dioxide Anion Gap BUN Creatinine Estim Creat Clear Calc Estimated GFR POC Glucose 134 H Random Glucose Calcium Phosphorus Magnesium Troponin I High Sens 153.0 H* D 207.0 H* TSH 08/31/23 08/31/23 08/31/23 16:18 17:40 17:41 WBC RBC Hgb Hct MCV MCH MCHC RDW Plt Count MPV Immature Gran % (Auto) Neut % (Auto) Lymph % (Auto) [place] % (Auto) Eos % (Auto) Baso % (Auto) Lymph # (Auto) [place] # (Auto) Eos # (Auto) Baso # (Auto) Abs Immat Gran (auto) Absolute Neuts (auto) Absolute Nucleated RBC Nucleated RBC % (auto) PT INR aPTT Heparin Protocol VBG pH 7.53 H VBG pCO2 32 VBG pO2 152 VBG HCO3 26 VBG O2 Saturation 100.0 VBG Base Excess 4.8 Sodium 137 Potassium 4.2 Chloride 100 Carbon Dioxide 25 Anion Gap 16 BUN 20 H Creatinine 0.93 Estim Creat Clear Calc 45.7 Estimated GFR 59 POC Glucose 202 H Random Glucose 258 H Calcium 8.8 Phosphorus 3.0 Magnesium 1.7 Troponin I High Sens TSH 0.37 08/31/23 08/31/23 08/31/23 18:10 21:01 21:42 WBC 12.2 H RBC 4.22 Hgb 13.2 Hct 39.0 MCV 92.4 MCH 31.3 MCHC 33.8 RDW 13.4 Plt Count 283 MPV 11.0 Immature Gran % (Auto) Neut % (Auto) Lymph % (Auto) [place] % (Auto) Eos % (Auto) Baso % (Auto) Lymph # (Auto) [place] # (Auto) Eos # (Auto) Baso # (Auto) Abs Immat Gran (auto) Absolute Neuts (auto) Absolute Nucleated RBC 0.020 H Nucleated RBC % (auto) 0.2 PT 11.6 INR 1.0 aPTT Heparin Protocol 25.7 L D VBG pH VBG pCO2 VBG pO2 VBG HCO3 VBG O2 Saturation VBG Base Excess Sodium Potassium Chloride Carbon Dioxide Anion Gap BUN Creatinine Estim Creat Clear Calc Estimated GFR POC Glucose 251 H Random Glucose Calcium Phosphorus Magnesium Troponin I High Sens 172.4 H* TSH 09/01/23 09/01/23 09/01/23 01:38 04:38 04:40 WBC 10.6 RBC 3.95 L Hgb 12.1 Hct 35.8 L MCV 90.6 MCH 30.6 MCHC 33.8 RDW 13.2 Plt Count 277 MPV 10.9 Immature Gran % (Auto) 2.2 H Neut % (Auto) 85.4 H Lymph % (Auto) 9.[address] % (Auto) 2.7 Eos % (Auto) 0.0 Baso % (Auto) 0.2 Lymph # (Auto) 1.[address] # (Auto) 0.3 Eos # (Auto) 0.0 Baso # (Auto) 0.0 Abs Immat Gran (auto) 0.23 H Absolute Neuts (auto) 9.1 H Absolute Nucleated RBC 0.000 Nucleated RBC % (auto) 0.0 PT 12.7 INR 1.0 aPTT Heparin Protocol 48.6 L D VBG pH 7.51 H VBG pCO2 43 VBG pO2 57 VBG HCO3 34 H VBG O2 Saturation 87.0 VBG Base Excess 10.9 Sodium 138 Potassium 4.2 Chloride 97 Carbon Dioxide 31 H Anion Gap 14 BUN 18 H Creatinine 0.75 Estim Creat Clear Calc 56.7 Estimated GFR > 60 POC Glucose Random Glucose 183 H Calcium 8.3 L Phosphorus Magnesium Troponin I High Sens TSH 09/01/23 07:12 WBC RBC Hgb Hct MCV MCH MCHC RDW Plt Count MPV Immature Gran % (Auto) Neut % (Auto) Lymph % (Auto) [place] % (Auto) Eos % (Auto) Baso % (Auto) Lymph # (Auto) [place] # (Auto) Eos # (Auto) Baso # (Auto) Abs Immat Gran (auto) Absolute Neuts (auto) Absolute Nucleated RBC Nucleated RBC % (auto) PT INR aPTT Heparin Protocol VBG pH VBG pCO2 VBG pO2 VBG HCO3 VBG O2 Saturation VBG Base Excess Sodium Potassium Chloride Carbon Dioxide Anion Gap BUN Creatinine Estim Creat Clear Calc Estimated GFR POC Glucose 195 H Random Glucose Calcium Phosphorus Magnesium Troponin I High Sens TSH Microbiology Microbiology Results: Microbiology 08/27/23 21:48 Blood - Venous Blood Culture - Preliminary No growth after 48 hours. 08/27/23 19:33 Blood - Venous Blood Culture - Preliminary No growth after 48 hours. Progress Note: A&P Assessment and plan (1) COPD exacerbation: Status: Acute (2) NSTEMI (non-ST elevated myocardial infarction): Status: Acute (3) CHF (congestive heart failure): Status: Acute (4) Pulmonary edema: Status: Acute Plan Patient is a 72 Y F with COPD c/b chronic hypoxic respiratory failure on 2L NC, hypertension, hyperlipidemia c/b coronary artery disease, s/p stent, presenting initially on 08/26 w/ dyspnea, found to have acute on chronic respiratory failure, COVID positive, admitted floor; on 08/30, patient developed worsening dyspnea, found to hypertensive, c/f flash pulmonary edema, admitted to ICU on BiPAP N: no acute issues; multiple sclerosis CV: c/f demand ischemia in setting of known coronary artery disease; heparin gtt; likely transfer for cath R: flash pulmonary edema, improved; COPD c/b chronic respiratory failure, DuoNebs, steroids GI: no acute issues : no acute issues H: on heparin gtt for ACS ID: COVID, on remdesivir, steroids E: hyperglycemia, insulin sliding scale P: no acute issues Quality Stroke Does the patient have a stroke diagnosis?: No VTE Prior VTE?: No VTE Risk Level:: Medical - moderate - high VTE Device Contraindication: Treatment Not Indicated VTE Drug Contraindication: N/A - Med Ordered
--- NOTE | 2023-09-01 08:33 | ECG_ITS ---
Test Reason : chest pain Blood Pressure : / mmHG Vent. Rate : 086 BPM Atrial Rate : 086 BPM P-R Int : 130 ms QRS Dur : 092 ms QT Int : 404 ms P-R-T Axes : 060 -26 255 degrees QTc Int : 483 ms Normal sinus rhythm ST & Marked T wave abnormality, consider anterolateral ischemia Prolonged QT Abnormal ECG No significant changes when compared with the previous EKG of 31 august 2023 Referred By: Amena Pak Electronically Signed By:NILSON ZHAO
[2023-09-01] MEDS: polyethylene glycoL 3350 17 GM POWD.PACK PO (08:43)
[2023-09-01] MEDS: Calcium Gluconate/NaCl,Iso-Osm 1 GM/50 ML PLAST..BAG IV (08:43)
[2023-09-01] MEDS: Nitroglycerin 0.4 MG TAB.SUBL SUBLINGUAL (08:44)
[2023-09-01 08:46] LABS: PTT Heparin Drip 77.1 SEC (53-77.9)
--- NOTE | 2023-09-01 08:51 | P.DS_ITS ---
DS: Providers Provider Date of Service: 09/01/23 Date of admission: 08/27/23 22:42 Primary care physician: Sushil Stewart MD Consults: 08/27/23 23:17 Consult to Cardiology Routine Consulting Provider: [facility] Reason for consultation: NSTEMI Has provider been notified: Yes Attending physician on discharge: Amena Pak DS: Transfer Hospital Acceptance Reason for Transfer: Cardiac Cath Name of Facility: [facility] DS: Diagnosis Discharge Diagnosis (1) NSTEMI (non-ST elevated myocardial infarction): Status: Acute (2) Pulmonary edema: Status: Acute (3) CHF (congestive heart failure): Status: Acute (4) COPD exacerbation: Status: Acute DS: Summary Hospital Course Hospital Course: Ms. Leslie is a 72 Y F with COPD complicated by chronic respiratory failure on home 2 L NC, hypertension, hyperlipidemia complicated by coronary artery disease, status post LAD stent in 2006, who presented initially on 08/26 with dyspnea, found to be in acute on chronic respiratory failure, and COVID positive. Ms. Leslie was admitted to the floor and treated for COVID and COPD exacerbation. Her hospital course was complicated by troponinemia, though to be NSTEMI, for which cardiology was consulted and she was placed on heparin gtt, which was later discontinued in place for DAPT. On 08/30, Ms. Leslie developed worsening dyspnea and was found to be hypertensive with concerns for flash pulmonary edema. Ms. Leslie was placed on BiPAP and nitroglycerin and admitted to ICU. Ms. Leslie quickly improved, however, her ICU course was complicated by tachyarrhythmia and angina. Ms. Leslie was restarted on heparin gtt, pending transfer. Time Attestation Discharge Coordination Time (in mins): 30 Quality: Safe Use of Opioids Does Pt have an Active Cancer Diagnosis on the Problem List?: No Quality: Stroke Does the patient have a stroke diagnosis?: No Physical Exam Vital Signs: Vital Signs: Last Vital Signs Temp 98.6 F 09/01/23 08:47 Pulse 91 09/01/23 08:47 Resp 19 09/01/23 08:47 BP 144/82 H 09/01/23 08:47 Pulse Ox 95 09/01/23 08:47 O2 Del Method Nasal Cannula 09/01/23 08:47 O2 Flow Rate 3 09/01/23 08:47 FiO2 28 08/31/23 11:00 Oxygen Flow Rate 2 08/27/23 22:46 BMI result Body Mass Index 24.6 Const: General: no acute distress, well developed, alert, awake and Physically active Orientation/consciousness: patient oriented x3 HEENT: Head: Yes normal to inspection, Yes normocephalic and Yes atraumatic Eyes: General: appearance normal, both eyes and all related structures Neck: Neck: Yes normal visual inspection, Yes full ROM and Yes supple Chest: Chest palpation & inspection: normal inspection of the chest Resp: Other: diffuse rales throughout; no appreciable rhonchi, wheezing Cardio: Rate: regular rate Rhythm: regular rhythm GI: Inspection: Yes normal to inspection, No Abdominal wall edema and No distended Palpation (GI): Soft to palpation, not firm, nontender, no guarding and not rigid Skin: General skin exam: no rashes or lesions noted Neuro: General: patient oriented x3, tone normal, moves all extremities and no focal motor deficits Extrem: Other: 1+ pitting edema to bilateral shins General: Yes normal to inspection, Yes full ROM and Yes capillary refill normal Psych: Appearance: grossly normal DS: Data Data Completed and Pending Labs on day of discharge: Laboratory Results - last 24 hr 08/31/23 08/31/23 08/31/23 09:56 11:47 13:00 WBC RBC Hgb Hct MCV MCH MCHC RDW Plt Count MPV Immature Gran % (Auto) Neut % (Auto) Lymph % (Auto) [place] % (Auto) Eos % (Auto) Baso % (Auto) Lymph # (Auto) [place] # (Auto) Eos # (Auto) Baso # (Auto) Abs Immat Gran (auto) Absolute Neuts (auto) Absolute Nucleated RBC Nucleated RBC % (auto) PT INR aPTT Heparin Protocol VBG pH VBG pCO2 VBG pO2 VBG HCO3 VBG O2 Saturation VBG Base Excess Sodium Potassium Chloride Carbon Dioxide Anion Gap BUN Creatinine Estim Creat Clear Calc Estimated GFR POC Glucose 134 H Random Glucose Calcium Phosphorus Magnesium Troponin I High Sens 153.0 H* D 207.0 H* TSH 08/31/23 08/31/23 08/31/23 16:18 17:40 17:41 WBC RBC Hgb Hct MCV MCH MCHC RDW Plt Count MPV Immature Gran % (Auto) Neut % (Auto) Lymph % (Auto) [place] % (Auto) Eos % (Auto) Baso % (Auto) Lymph # (Auto) [place] # (Auto) Eos # (Auto) Baso # (Auto) Abs Immat Gran (auto) Absolute Neuts (auto) Absolute Nucleated RBC Nucleated RBC % (auto) PT INR aPTT Heparin Protocol VBG pH 7.53 H VBG pCO2 32 VBG pO2 152 VBG HCO3 26 VBG O2 Saturation 100.0 VBG Base Excess 4.8 Sodium 137 Potassium 4.2 Chloride 100 Carbon Dioxide 25 Anion Gap 16 BUN 20 H Creatinine 0.93 Estim Creat Clear Calc 45.7 Estimated GFR 59 POC Glucose 202 H Random Glucose 258 H Calcium 8.8 Phosphorus 3.0 Magnesium 1.7 Troponin I High Sens TSH 0.37 08/31/23 08/31/23 08/31/23 18:10 21:01 21:42 WBC 12.2 H RBC 4.22 Hgb 13.2 Hct 39.0 MCV 92.4 MCH 31.3 MCHC 33.8 RDW 13.4 Plt Count 283 MPV 11.0 Immature Gran % (Auto) Neut % (Auto) Lymph % (Auto) [place] % (Auto) Eos % (Auto) Baso % (Auto) Lymph # (Auto) [place] # (Auto) Eos # (Auto) Baso # (Auto) Abs Immat Gran (auto) Absolute Neuts (auto) Absolute Nucleated RBC 0.020 H Nucleated RBC % (auto) 0.2 PT 11.6 INR 1.0 aPTT Heparin Protocol 25.7 L D VBG pH VBG pCO2 VBG pO2 VBG HCO3 VBG O2 Saturation VBG Base Excess Sodium Potassium Chloride Carbon Dioxide Anion Gap BUN Creatinine Estim Creat Clear Calc Estimated GFR POC Glucose 251 H Random Glucose Calcium Phosphorus Magnesium Troponin I High Sens 172.4 H* TSH 09/01/23 09/01/23 09/01/23 01:38 04:38 04:40 WBC 10.6 RBC 3.95 L Hgb 12.1 Hct 35.8 L MCV 90.6 MCH 30.6 MCHC 33.8 RDW 13.2 Plt Count 277 MPV 10.9 Immature Gran % (Auto) 2.2 H Neut % (Auto) 85.4 H Lymph % (Auto) 9.5 L [place] % (Auto) 2.7 Eos % (Auto) 0.0 Baso % (Auto) 0.2 Lymph # (Auto) 1.0 L [place] # (Auto) 0.3 Eos # (Auto) 0.0 Baso # (Auto) 0.0 Abs Immat Gran (auto) 0.23 H Absolute Neuts (auto) 9.1 H Absolute Nucleated RBC 0.000 Nucleated RBC % (auto) 0.0 PT 12.7 INR 1.0 aPTT Heparin Protocol 48.6 L D VBG pH 7.51 H VBG pCO2 43 VBG pO2 57 VBG HCO3 34 H VBG O2 Saturation 87.0 VBG Base Excess 10.9 Sodium 138 Potassium 4.2 Chloride 97 Carbon Dioxide 31 H Anion Gap 14 BUN 18 H Creatinine 0.75 Estim Creat Clear Calc 56.7 Estimated GFR > 60 POC Glucose Random Glucose 183 H Calcium 8.3 L Phosphorus Magnesium Troponin I High Sens TSH 09/01/23 09/01/23 07:12 08:17 WBC RBC Hgb Hct MCV MCH MCHC RDW Plt Count MPV Immature Gran % (Auto) Neut % (Auto) Lymph % (Auto) [place] % (Auto) Eos % (Auto) Baso % (Auto) Lymph # (Auto) [place] # (Auto) Eos # (Auto) Baso # (Auto) Abs Immat Gran (auto) Absolute Neuts (auto) Absolute Nucleated RBC Nucleated RBC % (auto) PT INR aPTT Heparin Protocol 77.1 D VBG pH VBG pCO2 VBG pO2 VBG HCO3 VBG O2 Saturation VBG Base Excess Sodium Potassium Chloride Carbon Dioxide Anion Gap BUN Creatinine Estim Creat Clear Calc Estimated GFR POC Glucose 195 H Random Glucose Calcium Phosphorus Magnesium Troponin I High Sens TSH Preliminary micro results at discharge 08/27/23 21:48 Blood Culture - Preliminary Blood - Venous No growth after 48 hours. 08/27/23 19:33 Blood Culture - Preliminary Blood - Venous No growth after 48 hours. Discharge Plan Discharge Anticipated Discharge Date/Time: 09/01/23 12:00 Patient Disposition: Xfer Acute Care Hospital Discharge Diagnosis: Ischemia Referrals: Sushil Stewart MD [Primary Care Provider] - 1 Week Discharge Medications: Continued esomeprazole magnesium 40 mg capsule,delayed release(DR/EC) 40 mg PO DAILY@0630 buspirone 10 mg tablet 10 mg PO BID albuterol sulfate 90 mcg/actuation HFA aerosol inhaler 2 puff inhalation Q4H PRN (Reason: wheezing) fluticasone propionate 50 mcg/actuation spray,suspension 1 spray intranasal BID PRN (Reason: allergies) duloxetine 60 mg capsule,delayed release(DR/EC) 60 mg PO DAILY cholecalciferol (vitamin D3) 50 mcg (2,000 unit) capsule 100 mcg PO DAILY vugpndeggv-xbqjatkcigxew-ghke 50-300-40 mg capsule 1 cap PO DAILY PRN (Reason: Headache) Aimovig Autoinjector 140 mg/mL auto-injector 140 mg subcut Q28D Cuvitru 10 gram/50 mL (20 %) solution 50 ml subcut QWEEK amlodipine 5 mg tablet 10 mg PO DAILY potassium chloride [Klor-Con M20] 20 mEq tablet,ER particles/crystals 20 meq PO DAILY oxycodone-acetaminophen 10-325 mg tablet 1 tab PO Q4-6H PRN (Reason: Pain (Scale Score 4-6)) nitroglycerin 0.4 mg tablet, sublingual 0.4 mg sublingual Q5M PRN (Reason: Chest Pain) Rx Instructions: do not exceed 3 doses/24 hrs hydrochlorothiazide 25 mg tablet 25 mg PO DAILY metoprolol tartrate 25 mg tablet 25 mg PO BID pregabalin 150 mg capsule 150 mg PO TID ocrelizumab 30 mg/mL Solution 600 mg IV [id number] aspirin 81 mg Capsule 81 mg PO DAILY Trelegy Ellipta 100-62.5-25 mcg blister with device 1 ea inhalation DAILY levalbuterol HCl 1.25 mg/0.5 mL solution for nebulization 1.25 mg inhalation TID PRN (Reason: Shortness Of Breath Or Wheezing) clopidogrel 75 mg tablet 75 mg PO DAILY atorvastatin 40 mg Tablet 40 mg PO BEDTIME Discharge Orders: Discharge Order (Routine); Ordered 09/01/23 Ordered By: Amena Pak Activity on Discharge: As tolerated Stand Alone Forms: Patient Portal Discharge page Care Plan Goals: Transfer for possible cardiac catheterisation. Health Concerns: Ongoing ischemia and angina. Plan of Treatment: Possible cardiac catheterisation. Assessment: Patient is a 72 Y F with COPD c/b chronic hypoxic respiratory failure on 2L NC, hypertension, hyperlipidemia c/b coronary artery disease, s/p stent, presenting initially on 08/26 w/ dyspnea, found to have acute on chronic respiratory fail ure, COVID positive, admitted floor; on 08/30, patient developed worsening dyspnea, found to hypertensive, c/f flash pulmonary edema, admitted to ICU on BiPAP N: no acute issues; multiple sclerosis CV: c/f demand ischemia in setting of known coronary artery disease; heparin gtt; likely transfer for cath R: flash pulmonary edema, improved; COPD c/b chronic respiratory failure, DuoNebs, steroids GI: no acute issues : no acute issues H: on heparin gtt for ACS ID: COVID, on remdesivir, steroids E: hyperglycemia, insulin sliding scale P: no acute issues
[2023-09-01] MEDS: Acetaminophen 325 MG TABLET 650 MG PO (09:30)
[2023-09-01 09:36] LABS: Troponin-I High Sensitivity 104.7 ng/L (<3.5-17.0)
[2023-09-01 11:16] LABS: Glucose, Whole Blood 209 mg/dL (60-115)
[2023-09-01] MEDS: Remdesivir 100 MG in 0.9 % Sodium Chloride 230 ML 115 MG IV (11:21)
--- NOTE | 2023-09-01 11:40 | PM.PNCARD ---
Subjective Subjective Date of Service: 09/01/23 Principal diagnosis: NSTEMI Interval history: Patient transferred to ICU last night with sudden-onset shortness of breath with chest tightness and noted to be in acute flash pulmonary edema suspected to be due to hypertensive urgency. This morning again developed some stuttering chest pain relieved by sublingual nitroglycerin. EKG shows deep T-wave inversions in anterior as well as inferior leads. These are more prominent than before. Troponins are downtrending in the 200-100 range. Cardiology was asked to see her again for potential invasive approach to management of her NSTEMI given her recurrent symptoms. Review of Systems Constitutional: Reports no additional constitutional complaints Cardiovascular: Reports chest pain at rest and Reports dyspnea Respiratory: Reports no additional respiratory complaints and Reports dyspnea Musculoskeletal: Reports no additional musculoskeletal complaints Skin/Breast: Reports system reviewed and no additional complaints, except as docu Psychiatric: Reports no additional psychiatric complaints Physical Exam Vital Signs: Last Vital Signs Temp 99.5 F 09/01/23 11:00 Pulse 81 09/01/23 11:00 Resp 19 09/01/23 11:00 BP 150/69 H 09/01/23 11:00 Pulse Ox 95 09/01/23 11:00 O2 Del Method Nasal Cannula 09/01/23 11:00 O2 Flow Rate 3 09/01/23 11:00 FiO2 28 08/31/23 11:00 Oxygen Flow Rate 2 08/27/23 22:46 BMI result Body Mass Index 24.6 Const General: cooperative, comfortable, no acute distress, alert and awake Nutritional Appearance: average body habitus Orientation/consciousness: patient oriented x3 Neck Neck: Yes trachea midline, Yes supple and Yes no JVD Resp Effort & Inspection: normal respiratory effort Auscultation: no rales, no wheezes and diminished lung sounds Cardio Jugular venous distension: no JVD Rate: regular rate Rhythm: regular rhythm Heart sounds: S1 normal heart sound present, S2 normal heart sound present, no click, no gallops and no murmurs GI Auscultation: normal bowel sounds Skin General skin exam: no rashes or lesions noted Neuro General: patient oriented x3 and no focal motor deficits Objective Labs and Meds 09/01/23 04:40 09/01/23 04:40 Lab results: Laboratory Results - last 24 hr 08/31/23 08/31/23 08/31/23 11:47 13:00 16:18 WBC RBC Hgb Hct MCV MCH MCHC RDW Plt Count MPV Immature Gran % (Auto) Neut % (Auto) Lymph % (Auto) [place] % (Auto) Eos % (Auto) Baso % (Auto) Lymph # (Auto) [place] # (Auto) Eos # (Auto) Baso # (Auto) Abs Immat Gran (auto) Absolute Neuts (auto) Absolute Nucleated RBC Nucleated RBC % (auto) PT INR aPTT Heparin Protocol VBG pH VBG pCO2 VBG pO2 VBG HCO3 VBG O2 Saturation VBG Base Excess Sodium Potassium Chloride Carbon Dioxide Anion Gap BUN Creatinine Estim Creat Clear Calc Estimated GFR POC Glucose 134 H 202 H Random Glucose Calcium Phosphorus Magnesium Troponin I High Sens 207.0 H* TSH 08/31/23 08/31/23 08/31/23 17:40 17:41 18:10 WBC 12.2 H RBC 4.22 Hgb 13.2 Hct 39.0 MCV 92.4 MCH 31.3 MCHC 33.8 RDW 13.4 Plt Count 283 MPV 11.0 Immature Gran % (Auto) Neut % (Auto) Lymph % (Auto) [place] % (Auto) Eos % (Auto) Baso % (Auto) Lymph # (Auto) [place] # (Auto) Eos # (Auto) Baso # (Auto) Abs Immat Gran (auto) Absolute Neuts (auto) Absolute Nucleated RBC 0.020 H Nucleated RBC % (auto) 0.2 PT 11.6 INR 1.0 aPTT Heparin Protocol 25.7 L D VBG pH 7.53 H VBG pCO2 32 VBG pO2 152 VBG HCO3 26 VBG O2 Saturation 100.0 VBG Base Excess 4.8 Sodium 137 Potassium 4.2 Chloride 100 Carbon Dioxide 25 Anion Gap 16 BUN 20 H Creatinine 0.93 Estim Creat Clear Calc 45.7 Estimated GFR 59 POC Glucose Random Glucose 258 H Calcium 8.8 Phosphorus 3.0 Magnesium 1.7 Troponin I High Sens TSH 0.37 08/31/23 08/31/23 09/01/23 21:01 21:42 01:38 WBC RBC Hgb Hct MCV MCH MCHC RDW Plt Count MPV Immature Gran % (Auto) Neut % (Auto) Lymph % (Auto) [place] % (Auto) Eos % (Auto) Baso % (Auto) Lymph # (Auto) [place] # (Auto) Eos # (Auto) Baso # (Auto) Abs Immat Gran (auto) Absolute Neuts (auto) Absolute Nucleated RBC Nucleated RBC % (auto) PT INR aPTT Heparin Protocol 48.6 L D VBG pH VBG pCO2 VBG pO2 VBG HCO3 VBG O2 Saturation VBG Base Excess Sodium Potassium Chloride Carbon Dioxide Anion Gap BUN Creatinine Estim Creat Clear Calc Estimated GFR POC Glucose 251 H Random Glucose Calcium Phosphorus Magnesium Troponin I High Sens 172.4 H* TSH 09/01/23 09/01/23 09/01/23 04:38 04:40 07:12 WBC 10.6 RBC 3.95 L Hgb 12.1 Hct 35.8 L MCV 90.6 MCH 30.6 MCHC 33.8 RDW 13.2 Plt Count 277 MPV 10.9 Immature Gran % (Auto) 2.2 H Neut % (Auto) 85.4 H Lymph % (Auto) 9.5 L [place] % (Auto) 2.7 Eos % (Auto) 0.0 Baso % (Auto) 0.2 Lymph # (Auto) 1.0 L [place] # (Auto) 0.3 Eos # (Auto) 0.0 Baso # (Auto) 0.0 Abs Immat Gran (auto) 0.23 H Absolute Neuts (auto) 9.1 H Absolute Nucleated RBC 0.000 Nucleated RBC % (auto) 0.0 PT 12.7 INR 1.0 aPTT Heparin Protocol VBG pH 7.51 H VBG pCO2 43 VBG pO2 57 VBG HCO3 34 H VBG O2 Saturation 87.0 VBG Base Excess 10.9 Sodium 138 Potassium 4.2 Chloride 97 Carbon Dioxide 31 H Anion Gap 14 BUN 18 H Creatinine 0.75 Estim Creat Clear Calc 56.7 Estimated GFR > 60 POC Glucose 195 H Random Glucose 183 H Calcium 8.3 L Phosphorus Magnesium Troponin I High Sens TSH 09/01/23 09/01/23 09/01/23 08:17 09:06 11:11 WBC RBC Hgb Hct MCV MCH MCHC RDW Plt Count MPV Immature Gran % (Auto) Neut % (Auto) Lymph % (Auto) [place] % (Auto) Eos % (Auto) Baso % (Auto) Lymph # (Auto) [place] # (Auto) Eos # (Auto) Baso # (Auto) Abs Immat Gran (auto) Absolute Neuts (auto) Absolute Nucleated RBC Nucleated RBC % (auto) PT INR aPTT Heparin Protocol 77.1 D VBG pH VBG pCO2 VBG pO2 VBG HCO3 VBG O2 Saturation VBG Base Excess Sodium Potassium Chloride Carbon Dioxide Anion Gap BUN Creatinine Estim Creat Clear Calc Estimated GFR POC Glucose 209 H Random Glucose Calcium Phosphorus Magnesium Troponin I High Sens 104.7 H* TSH Progress Note: A&P Assessment and plan (1) NSTEMI (non-ST elevated myocardial infarction): Status: Acute Assessment and Plan: Patient admitted with NSTEMI which was felt to be secondary to COPD exacerbation related to COVID as well as possible [place]o cardiomyopathy with wall motion abnormality in echocardiogram which could be due to stress-induced cardiomyopathy or LAD territory wall motion abnormality be managed initially conservatively. However patient developed recurrent symptoms with flash pulmonary edema related to chest discomfort. At this point time I agree that patient needs to be transferred to [facility] for invasive cardiac catheterization. Arrangements have been made. Patient has been accepted. Continue IV heparin. Continue aspirin, high-intensity statin therapy as well as metoprolol and nitropaste. Will sign of the case Time Spent With Patient Time: Total time managing care of this patient today ____ minutes. Progress Note: Quality Stroke Does the patient have a stroke diagnosis?: No Procedures Date of Service Date of Service: 09/01/23
--- NOTE | 2023-09-01 12:14 | MHC.CM.PN ---
Received notification from ICU that patient will be transferred to [facility] for cardiac cath. Stephane CHRISTIANSEN booked for 130pm. Med nec with chart. Continue to monitor for d/c needs.
--- NOTE | 2023-09-04 11:51 | PC.NURSE ---
08/31/2023 0500 Late Entry. Rapid Response in effect assisting primary nurse Siddharth. Dr. Whitten ordered and administered 2mg Morphine IV push x1 for Respiratory distress at 05:10 . Nilesh MCGOVERN came to bedside and ordered additional 2mg Morphine IVP at 05:20 am as pt requiring increase oxygenation, Bipap for work of breathing. Pt transferred to ICU.
== END 2023-09-01 14:05 | disposition short-term general hospital (02) | DRG 177 ==
LOC: HO.ED 22:49 → HO.EDOVER 22:56 → HO.IMC 08-28 17:50 → HO.ICU 08-31 05:34
PROVIDERS: Internal Medicine; Physician Assistant; Physician Assistant Medical; Admitting Provider Student in an Organized Health Care Education/Training Program; Emergency Provider Emergency Medicine; PCP Internal Medicine; Visit Provider Internal Medicine Critical Care Medicine
DX: U07.1 COVID-19 (principal); I21.4 Non-ST elevation (NSTEMI) myocardial infarction; J96.21 Acute and chronic respiratory failure with hypoxia; J96.22 Acute and chronic respiratory failure with hypercapnia; D80.1 Nonfamilial hypogammaglobulinemia; I51.81 Takotsubo syndrome; I47.20 Ventricular tachycardia, unspecified; I16.0 Hypertensive urgency; I50.9 Heart failure, unspecified; I11.0 Hypertensive heart disease with heart failure; J43.9 Emphysema, unspecified; F39 Unspecified mood [affective] disorder; E11.9 Type 2 diabetes mellitus without complications; G35 Multiple sclerosis; I25.10 Atherosclerotic heart disease of native coronary artery without angina pectoris; F17.210 Nicotine dependence, cigarettes, uncomplicated; Z99.81 Dependence on supplemental oxygen; Z71.6 Tobacco abuse counseling; Z95.1 Presence of aortocoronary bypass graft; Z79.82 Long term (current) use of aspirin; Z79.891 Long term (current) use of opiate analgesic; Z79.899 Other long term (current) drug therapy
CPT/HCPCS: 0241U; 36415; 71045; 80048; 80053; 82803; 82947; 83036; 83605; 83735; 83880; 84100; 84443; 84484; 85025; 85027; 85610; 85730; 87040; 92950; 93005; 93308; 94640; 94660; 99285; C1758; J0248; J0456; J0613; J0696; J1644; J1650; J1940; J2405; J2920; J2930; J3475; Q9957

== ENCOUNTER → 2023-08-27 19:09 | Outpatient (BNV) | payer MEDICARE, BC, SELFPAY | PROVIDERS: Admitting Provider Student in an Organized Health Care Education/Training Program; Emergency Provider Emergency Medicine; PCP Internal Medicine; Visit Provider Internal Medicine Cardiovascular Disease | DX: R00.0 Tachycardia, unspecified (principal) | CPT/HCPCS: 93010 ==

== ENCOUNTER 2023-08-27 22:42 | Outpatient (BNV) | payer MEDICARE, BC, SELFPAY | END 2023-08-31 09:33 | PROVIDERS: Admitting Provider Student in an Organized Health Care Education/Training Program; Emergency Provider Emergency Medicine; PCP Internal Medicine; Visit Provider Internal Medicine Cardiovascular Disease | DX: R07.9 Chest pain, unspecified (principal) | CPT/HCPCS: 93010 ==

== ENCOUNTER 2023-08-27 22:42 | Outpatient (BNV) | payer MEDICARE, BC, SELFPAY | END 2023-08-28 07:00 | PROVIDERS: Admitting Provider Student in an Organized Health Care Education/Training Program; Emergency Provider Emergency Medicine; PCP Internal Medicine; Visit Provider Internal Medicine Cardiovascular Disease | DX: I21.4 Non-ST elevation (NSTEMI) myocardial infarction (principal) | CPT/HCPCS: 93308 ==

== ENCOUNTER 2023-08-27 22:42 | Outpatient (BNV) | payer MEDICARE, BC, SELFPAY | END 2023-09-01 08:33 | PROVIDERS: Admitting Provider Student in an Organized Health Care Education/Training Program; Emergency Provider Emergency Medicine; PCP Internal Medicine; Visit Provider Internal Medicine | DX: I45.81 Long QT syndrome (principal) | CPT/HCPCS: 93010 ==

== ENCOUNTER → 2023-08-27 22:42 | Outpatient (BNV) | payer MEDICARE, BC, SELFPAY | PROVIDERS: Admitting Provider Student in an Organized Health Care Education/Training Program; Emergency Provider Emergency Medicine; PCP Internal Medicine; Visit Provider Student in an Organized Health Care Education/Training Program | DX: I21.4 Non-ST elevation (NSTEMI) myocardial infarction (principal) | CPT/HCPCS: 99223; 99233 ==

== ENCOUNTER → 2023-08-27 22:42 | Outpatient (BNV) | payer MEDICARE, BC, SELFPAY | PROVIDERS: Admitting Provider Student in an Organized Health Care Education/Training Program; Emergency Provider Emergency Medicine; PCP Internal Medicine; Visit Provider Internal Medicine Cardiovascular Disease | DX: I21.4 Non-ST elevation (NSTEMI) myocardial infarction (principal) | CPT/HCPCS: 99222; 99233 ==

== ENCOUNTER → 2023-08-27 22:42 | Outpatient (BNV) | payer MEDICARE, BC, SELFPAY | PROVIDERS: Admitting Provider Student in an Organized Health Care Education/Training Program; Emergency Provider Emergency Medicine; PCP Internal Medicine; Visit Provider Physician Assistant Medical | DX: J44.1 Chronic obstructive pulmonary disease with (acute) exacerbation (principal); I21.4 Non-ST elevation (NSTEMI) myocardial infarction; I50.9 Heart failure, unspecified; J81.1 Chronic pulmonary edema | CPT/HCPCS: 99238; 99291; 99292 ==

== ENCOUNTER 2023-12-16 17:24 | Emergency (ER) | payer OTHER, SELFPAY ==
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
[2023-12-16 17:47] VITALS: BP 143/75; PULSE 110; RESP 18; TEMP 37; O2SAT 94; BMI 25.5
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
[2023-12-16 21:57] VITALS: BP 143/75; PULSE 110; RESP 18; TEMP 37; O2SAT 94
== END 2023-12-16 21:58 | disposition home or self-care (01) ==
PROVIDERS: Emergency Provider Internal Medicine; PCP Internal Medicine
DX: S06.0X0A Concussion without loss of consciousness, initial encounter (principal); S16.1XXA Strain of muscle, fascia and tendon at neck level, initial encounter; S80.02XA Contusion of left knee, initial encounter; S80.01XA Contusion of right knee, initial encounter; R51.9 Headache, unspecified; M54.2 Cervicalgia; M54.50 Low back pain, unspecified; V43.52XA Car driver injured in collision with other type car in traffic accident, initial encounter; Y93.9 Activity, unspecified; Y92.410 Unspecified street and highway as the place of occurrence of the external cause; Y99.8 Other external cause status; Z79.899 Other long term (current) drug therapy
CPT/HCPCS: 70450; 72100; 72125; 73564; 99283; 99284

== ENCOUNTER 2023-12-25 15:18 | Emergency (ER) | payer MEDICARE, BC, SELFPAY ==
--- NOTE | 2023-12-25 | ECG_ITS ---
Test Reason : CP Blood Pressure : / mmHG Vent. Rate : 079 BPM Atrial Rate : 079 BPM P-R Int : 136 ms QRS Dur : 082 ms QT Int : 380 ms P-R-T Axes : 061 -23 053 degrees QTc Int : 435 ms Normal sinus rhythm Possible Left atrial enlargement Borderline ECG When compared with ECG of 01-SEP-2023 08:49, ST no longer depressed in Anterior leads T wave inversion no longer evident in Inferior leads T wave inversion no longer evident in Anterolateral leads Referred By: Generic ED Physician Electronically Signed By:Gilbert Lovelace
--- NOTE | ~2023-12-25 | XR_ITS ---
EXAMINATION: XR CHEST CLINICAL INFORMATION: Chest pain and shortness of breath COMPARISON: 08/31/2023 TECHNIQUE: 2 views of the chest were obtained. FINDINGS: Since the prior study, the pulmonary vascular congestion and interstitial edema has all cleared and at this time, no significant abnormalities seen involving the heart, lungs or mediastinum. Visualization of the C5-C6 fixation with hardware is imaged. No infiltrates, effusions or lung masses. XR/XR chest 2V IMPRESSION: No acute intrathoracic disease. Resolution of previously seen pulmonary vascular congestion and interstitial edema.
[2023-12-25 15:37] VITALS: BP 142/72; PULSE 80; RESP 20; TEMP 36.6; O2SAT 97; BMI 24.1
--- NOTE | 2023-12-25 15:38 | ED.CHESTPAIN ---
HPI - Chest Pain General Chief Complaint: Chest Pain Stated Complaint: Chest pain Time Seen by Provider: 12/25/23 18:23 Source: patient Mode of arrival: ambulatory Limitations: no limitations History of Present Illness ED Provider: kade BARRIOS narrative: Patient is smoker with history of COPD on 2-3 L of oxygen as needed, hypertension no history of coronary artery disease comes here for mid chest pain for last 3 days with cough and taking deep breath no fever no chills no radiation of the pain pain is reproducible increases on taking a deep breath no leg edema Related Data Home Medications ?Medication ?Instructions ?Recorded ?Confirmed albuterol sulfate 90 mcg/actuation 2 puff inhalation Q4H PRN wheezing 11/15/22 08/28/23 aerosol inhaler amlodipine 5 mg tablet 10 mg PO DAILY 11/15/22 11/15/22 aspirin 81 mg capsule 81 mg PO DAILY 11/15/22 08/28/23 buspirone 10 mg tablet 10 mg PO BID 11/15/22 08/28/23 [id number]-lvmwcbjdhltux-[id number] 1 cap PO DAILY PRN Headache 11/15/22 08/28/23 50 mg-300 mg-40 mg capsule cholecalciferol (vitamin D3) 50 100 mcg PO DAILY 11/15/22 08/28/23 mcg (2,000 unit) capsule clopidogrel 75 mg tablet 75 mg PO DAILY 11/15/22 08/28/23 duloxetine 60 mg capsule,delayed 60 mg PO DAILY 11/15/22 08/28/23 release erenumab-aooe 140 mg/mL 140 mg subcut Q28D 11/15/22 08/28/23 subcutaneous auto-injector (Aimovig Autoinjector) esomeprazole magnesium 40 mg 40 mg PO DAILY@0630 11/15/22 08/28/23 capsule,delayed release fluticasone fur. 100 mcg-umeclid 1 ea inhalation DAILY 11/15/22 08/28/23 62.5 mcg-vilant 25 mcg inhalat.powder (Trelegy Ellipta) fluticasone propionate 50 1 spray intranasal BID PRN 11/15/22 08/28/23 mcg/actuation nasal allergies spray,suspension hydrochlorothiazide 25 mg tablet 25 mg PO DAILY 11/15/22 08/28/23 immun glob G 10 50 ml subcut QWEEK 11/15/22 08/28/23 gram/50mL(20%)-gly-IgA over 50 mcg/mL subcutaneous suzanna (Cuvitru) levalbuterol HCl 1.25 mg/0.5 mL 1.25 mg inhalation TID PRN 11/15/22 08/28/23 solution for nebulization Shortness Of Breath Or Wheezing metoprolol tartrate 25 mg tablet 25 mg PO BID 11/15/22 08/28/23 nitroglycerin 0.4 mg sublingual 0.4 mg sublingual Q5M PRN Chest 11/15/22 08/28/23 tablet Pain ocrelizumab 30 mg/mL intravenous 600 mg IV [id number] 11/15/22 08/28/23 solution oxycodone-acetaminophen 10 mg-325 1 tab PO Q4-6H PRN Pain (Scale 11/15/22 08/27/23 mg tablet Score 4-6) potassium chloride 20 mEq 20 meq PO DAILY 11/15/22 08/28/23 tablet,extended release(part/cryst) (Klor-Con M) pregabalin 150 mg capsule 150 mg PO TID 11/15/22 08/28/23 atorvastatin 40 mg tablet 40 mg PO BEDTIME 08/28/23 08/28/23 Previous Rx's ?Medication ?Instructions ?Recorded lidocaine 5 % topical patch 3 patch topical DAILY #30 ea 12/16/23 (Lidoderm) benzonatate 200 mg capsule 200 mg PO TID PRN cough #30 caps 12/25/23 cefuroxime axetil 500 mg tablet 500 mg PO BID 10 days #20 tabs 12/25/23 doxycycline hyclate 100 mg tablet 100 mg PO BID #20 tabs 12/25/23 prednisone 20 mg tablet 40 mg (2 x 20 mg) PO DAILY #10 tabs 12/25/23 Allergies Allergy/AdvReac Type Severity Reaction Status Date / Time codeine [CODEINE] Allergy Unknown Hives Verified 12/25/23 15:39 Review of Systems Review of Systems: Yes all other systems are reviewed and are negative [facility] Past Medical History Medical History History of CAD (coronary artery disease) Peripheral vascular disease Chronic back pain GERD (gastroesophageal reflux disease) High cholesterol HTN (hypertension) Immune disorder COPD (chronic obstructive pulmonary disease) Multiple sclerosis Surgical History History of angioplasty History of heart artery stent Social History Social History Household Members: Spouse Housing: House Do you presently have visiting nurse or other home services: No Alcohol intake: never Patient Tobacco Use Status: Current everyday Tobacco user Tobacco use type: Cigarette Cigarettes Per Day: 15 Advance Directives: Yes Advance Directives on File: Yes Advance Directives Date on File: 11/22/22 Do you have a plan to hurt others: No Plan service: No Current occupational status: retired Physical Exam Vital Signs: Vital Signs: Last Vital Signs Temp 98.1 F 12/25/23 19:50 Pulse 67 12/25/23 19:50 Resp 19 12/25/23 19:50 BP 109/63 12/25/23 19:50 Pulse Ox 97 12/25/23 19:50 O2 Del Method Nasal Cannula 12/25/23 19:50 O2 Flow Rate 4 12/25/23 19:50 BMI result Body Mass Index 24.1 Appearance: Alert. Oriented X3. No acute distress. Eyes: No pallor or icterus ENT: Pharynx normal. Oral Mucosa moist Neck: Normal inspection. Neck supple. CVS: Normal heart rate and rhythm. Pulses normal. Respiratory: No respiratory distress. Equal air entry bilateral, bilateral rhonchi and wheezing with wet crackles reproducible mid chest pain Abdomen: Soft and nontender. Bowel sounds are present, no mass palpable, no CVA tenderness Skin: Skin warm and dry. Normal skin color. Normal skin turgor. Extremities: No lower extremity edema. No calf tenderness Neuro: Oriented X 3. No motor deficit. No sensory deficit.No cerebellar signs , cranial nerves II-XII intact Course Course Course Narrative: This is an RME: Additional HPI, ROS, PE not included below will be deferred to primary provider. RME assessment and note performed by: Jenn Allison PA-C This is a [id number]-female, with a hx of NSTEMI on plavix, COPD, pulmonary edema, and CHF on 2L at baseline, who presents to the ER with complaints of chest pressure and heaviness x 3 days. R lower lobe wheezes and crackles heard. Plan: Labs, EKG, chest x-ray, viral swabs Medications Administered Discontinued Medications Generic Name Dose Route Start Last Admin Trade Name Kurt PRN Reason Stop Dose Admin Benzonatate 200 mg 12/25/23 19:03 12/25/23 19:52 Benzonatate 100 Mg Capsule PO 12/25/23 19:04 200 mg ONCE ONE Administration Cefuroxime Axetil 500 mg 12/25/23 19:03 12/25/23 19:52 Cefuroxime Axetil 500 Mg Tablet PO 12/25/23 19:04 500 mg ONCE ONE Administration Albuterol Sulfate 2.5 mg/ 0 mg 12/25/23 19:03 12/25/23 19:37 Albuterol/Ipratropium 3 ml INHALE 12/25/23 19:04 5 dose ONCE ONE Administration Doxycycline Monohydrate 100 mg 12/25/23 19:03 12/25/23 19:52 Doxycycline Monohydrate 100 Mg Capsule PO 12/25/23 19:04 100 mg ONCE ONE Administration Prednisone 40 mg 12/25/23 19:12 12/25/23 19:52 Prednisone 20 Mg Tablet PO 12/25/23 19:13 40 mg ONCE ONE Administration Medical Decision Making Medical Decision Making [facility] Narrative: Patient's COPD chronic smoker with chest pain increases on deep inspiration cough with no acute ischemic changes normal troponin likely from bronchitis chest x-ray negative will give her antibiotics prednisone and cough drops Differential Diagnosis Differential Diagnoses: The differential diagnosis associated with the presentation includes CHF/pneumonia/bronchitis/chest wall pain/ACS/chf Admission/Observation Consideration of admission/observation: Escalation of care including admission/observation considered Lab Data [facility] Lab Attestation statement: I reviewed the patient's lab results. 12/25/23 16:25 12/25/23 16:25 Labs: Lab Results 12/25/23 Range/Units 16:25 WBC 15.7 H (4.8-10.8) X10*3/uL RBC 4.88 D (4.20-5.50) X10*6/uL Hgb 14.8 D (12.0-16.0) g/dl Hct 43.7 D (37.0-47.0) % MCV 89.5 (80.0-98.0) fL MCH 30.3 (27.0-33.0) pg MCHC 33.9 (31.0-35.0) g/dl RDW 13.0 (11.0-16.0) % Plt Count 422 H D (160-400) X10*3/uL MPV 10.1 (9.4-12.3) fL Immature Gran % (Auto) 0.6 H (0.0-0.4) % Neut % (Auto) 78.4 H (45-73) % Lymph % (Auto) 13.1 L (20-40) % Allen % (Auto) 7.1 (2-11) % Eos % (Auto) 0.6 (0-4) % Baso % (Auto) 0.2 (0-2) % Lymph # (Auto) 2.1 (1.2-4.9) X10*3/uL Allen # (Auto) 1.1 (0.1-1.2) X10*3/uL Eos # (Auto) 0.1 (0.0-0.4) X10*3/uL Baso # (Auto) 0.0 (0.0-0.2) X10*3/uL Abs Immat Gran (auto) 0.09 H (0.00-0.03) X10*3/uL Absolute Neuts (auto) 12.3 H (2.0-8.3) x10*3/uL Absolute Nucleated RBC 0.000 (0.0-0.012) X10*3/uL Nucleated RBC % (auto) 0.0 (0.0-0.2) /100WBC PT 11.6 (11.1-13.3) SEC INR 1.0 (0.9-1.1) APTT 27.7 (26.0-36.8) SEC Sodium 137 (135-145) mmol/L Potassium 3.4 (3.3-5.1) mmol/L Chloride 98 (96-108) mmol/L Carbon Dioxide 26 (22-29) mmol/L Anion Gap 16 (12-20) BUN 13 (9-16) mg/dL Creatinine 0.86 (0.5-1.4) mg/dL Estim Creat Clear Calc 48.4 Estimated GFR > 60 Random Glucose 152 H (60-115) mg/dL Calcium 9.9 D (8.4-10.2) mg/dL Total Bilirubin 0.3 (0.0-1.0) mg/dL Direct Bilirubin 0.1 (0.0-0.5) mg/dL AST 13 (5-31) U/L ALT 12 (0-31) U/L Alkaline Phosphatase 127 H (39-117) U/L Troponin I High Sens 3.2 D (<3.5-17.0) ng/L B-Natriuretic Peptide 102 H (<100) pg/mL Total Protein 7.2 (6.5-8.0) g/dL Albumin 4.2 (3.5-5.0) g/dL Influenza Type A (PCR) NEGATIVE (Negative) Influenza Type B (PCR) NEGATIVE (Negative) RSV RNA Qual (PCR) NEGATIVE (Negative) SARS-CoV-2 RNA (RT-PCR) NEGATIVE (Negative) Independent Interpretation I performed an independent interpretation of an: EKG and Plain X-Ray Interpretation: Normal sinus rhythm heart rate 79 beats per minute normal interval normal axis no acute ST-T changes no acute ischemia Radiology Impression Discussion of test interpretation with radiology: I have reviewed the radiologist's reading. Discharge Plan Discharge Clinical Impression: Acute bronchitis due to infection Patient Disposition: Home, Self-Care Instructions: Acute Bronchitis (ED) Additional Instructions: Continue to use your nebulizer/inhaler as advised Stop smoking Antibiotic as prescribed Prednisone and cough drops as prescribed Report to the ER if gets worse Prescriptions: New cefuroxime axetil 500 mg tablet 500 mg PO BID 10 Days Qty: 20 0RF doxycycline hyclate 100 mg tablet 100 mg PO BID Qty: 20 0RF benzonatate 200 mg capsule 200 mg PO TID PRN (Reason: cough) Qty: 30 0RF prednisone 20 mg tablet 40 mg PO DAILY Qty: 10 0RF No Action esomeprazole magnesium 40 mg capsule,delayed release(DR/EC) 40 mg PO DAILY@0630 buspirone 10 mg tablet 10 mg PO BID albuterol sulfate 90 mcg/actuation HFA aerosol inhaler 2 puff inhalation Q4H PRN (Reason: wheezing) fluticasone propionate 50 mcg/actuation spray,suspension 1 spray intranasal BID PRN (Reason: allergies) duloxetine 60 mg capsule,delayed release(DR/EC) 60 mg PO DAILY cholecalciferol (vitamin D3) 50 mcg (2,000 unit) capsule 100 mcg PO DAILY pkklvthphv-tmybeclwzujdb-nvrm 50-300-40 mg capsule 1 cap PO DAILY PRN (Reason: Headache) Aimovig Autoinjector 140 mg/mL auto-injector 140 mg subcut Q28D Cuvitru 10 gram/50 mL (20 %) solution 50 ml subcut QWEEK amlodipine 5 mg tablet 10 mg PO DAILY potassium chloride [Klor-Con M20] 20 mEq tablet,ER particles/crystals 20 meq PO DAILY oxycodone-acetaminophen 10-325 mg tablet 1 tab PO Q4-6H PRN (Reason: Pain (Scale Score 4-6)) nitroglycerin 0.4 mg tablet, sublingual 0.4 mg sublingual Q5M PRN (Reason: Chest Pain) Rx Instructions: do not exceed 3 doses/24 hrs hydrochlorothiazide 25 mg tablet 25 mg PO DAILY metoprolol tartrate 25 mg tablet 25 mg PO BID pregabalin 150 mg capsule 150 mg PO TID ocrelizumab 30 mg/mL Solution 600 mg IV [id number] aspirin 81 mg Capsule 81 mg PO DAILY Trelegy Ellipta 100-62.5-25 mcg blister with device 1 ea inhalation DAILY levalbuterol HCl 1.25 mg/0.5 mL solution for nebulization 1.25 mg inhalation TID PRN (Reason: Shortness Of Breath Or Wheezing) clopidogrel 75 mg tablet 75 mg PO DAILY atorvastatin 40 mg Tablet 40 mg PO BEDTIME lidocaine [Lidoderm] 5 % adhesive patch,medicated 3 patch topical DAILY Qty: 30 0RF Rx Instructions: leave on most painful area for up to 12 hrs Print Language: German
[2023-12-25 16:30] LABS: MANUAL DIFF FLAG NO
[2023-12-25 16:31] LABS: Basophils Percent Auto 0.2 % (0-2); Eosinophils Absolute Auto 0.1 X10*3/uL (0.0-0.4); Eosinophils Percent Auto 0.6 % (0-4); Hematocrit 43.7 % (37.0-47.0); Hemoglobin 14.8 g/dl (12.0-16.0); Imm Gran Abs Auto 0.09 X10*3/uL (0.00-0.03); Imm Gran Pct Auto 0.6 % (0.0-0.4); Lymphocytes Absolute Auto 2.1 X10*3/uL (1.2-4.9); Lymphocytes Percent Auto 13.1 % (20-40); Mean Corpuscular HGB Conc 33.9 g/dl (31.0-35.0); Mean Corpuscular Hemoglobin 30.3 pg (27.0-33.0); Mean Corpuscular Volume 89.5 fL (80.0-98.0); Mean Platelet Volume 10.1 fL (9.4-12.3); Monocytes Absolute Auto 1.1 X10*3/uL (0.1-1.2); Monocytes Percent Auto 7.1 % (2-11); Neutrophils Absolute Auto 12.3 x10*3/uL (2.0-8.3); Neutrophils Percent Auto 78.4 % (45-73); Platelet Count 422 X10*3/uL (160-400); Red Blood Count 4.88 X10*6/uL (4.20-5.50); White Blood Count 15.7 X10*3/uL (4.8-10.8)
[2023-12-25 16:36] LABS: Prothrombin Time 11.6 SEC (11.1-13.3)
[2023-12-25 16:39] LABS: Partial Thromboplastin Time 27.7 SEC (26.0-36.8)
[2023-12-25 16:45] LABS: Alanine Aminotransferase 12 U/L (0-31); Albumin Level 4.2 g/dL (3.5-5.0); Alkaline Phosphatase 127 U/L (39-117); Anion Gap 16 (12-20); Aspartate Amino Transferase 13 U/L (5-31); Bilirubin Direct 0.1 mg/dL (0.0-0.5); Bilirubin Total 0.3 mg/dL (0.0-1.0); Blood Urea Nitrogen 13 mg/dL (9-16); Calcium 9.9 mg/dL (8.4-10.2); Carbon Dioxide 26 mmol/L (22-29); Chloride 98 mmol/L (96-108); Creatinine Clr Calc Pharmacy 48.4; Estimated Glomerular Filt Rate > 60; Glucose Random 152 mg/dL (60-115); Potassium 3.4 mmol/L (3.3-5.1); Sodium 137 mmol/L (135-145); Total Protein 7.2 g/dL (6.5-8.0)
[2023-12-25 16:49] LABS: B Type Natriuretic Peptide 102 pg/mL (<100)
[2023-12-25 16:51] LABS: Troponin-I High Sensitivity 3.2 ng/L (<3.5-17.0)
[2023-12-25 17:20] LABS: Influenza A PCR NEGATIVE (Negative); Influenza B PCR NEGATIVE (Negative); Resp Syncy Virus RNA Qual PCR NEGATIVE (Negative); SARS COV2 PCR INHOUSE NEGATIVE (Negative)
[2023-12-25 18:36] VITALS: BP 141/76; PULSE 84; RESP 22; TEMP 36.9; O2SAT 97
[2023-12-25] MEDS: Albuterol Sulfate 2.5 MG, Albuterol/Iprat 2.5/0.5MG 3 ML 3 ML INHALE (19:37)
[2023-12-25 19:38] VITALS: PULSE 86; RESP 18; O2SAT 95
[2023-12-25 19:50] VITALS: BP 109/63; PULSE 67; RESP 19; TEMP 36.7; O2SAT 97
--- NOTE | 2023-12-25 19:51 | MHC.EDTECH ---
pt finised breathing treatment, vital signs checked, call norman within reach.
[2023-12-25] MEDS: Doxycycline Monohydrate 100 MG CAPSULE PO (19:52)
[2023-12-25] MEDS: predniSONE 20 MG TABLET 40 MG PO (19:52)
[2023-12-25] MEDS: cefuroxime axetiL 500 MG TABLET PO (19:52)
[2023-12-25] MEDS: Benzonatate 100 MG CAPSULE 200 MG PO (19:52)
[2023-12-25 21:06] VITALS: BP 125/68; PULSE 90; RESP 21; TEMP 36.6; O2SAT 98
[2023-12-25 21:09] VITALS: BP 125/68; PULSE 90; RESP 21; TEMP 36.6; O2SAT 98
== END 2023-12-25 21:10 | disposition home or self-care (01) ==
PROVIDERS: Physician Assistant Medical; Emergency Provider Internal Medicine; PCP Internal Medicine
DX: J20.9 Acute bronchitis, unspecified (principal); R07.89 Other chest pain; R06.02 Shortness of breath; Z79.899 Other long term (current) drug therapy; Z03.818 Encounter for observation for suspected exposure to other biological agents ruled out
CPT/HCPCS: 0241U; 36415; 71046; 80048; 80076; 83880; 84484; 85025; 85610; 85730; 93005; 94640; 99284

== ENCOUNTER → 2023-12-25 15:20 | Outpatient (BNV) | payer MEDICARE, BC, SELFPAY | PROVIDERS: Emergency Provider Internal Medicine; PCP Internal Medicine; Visit Provider Internal Medicine Cardiovascular Disease | DX: R07.9 Chest pain, unspecified (principal) | CPT/HCPCS: 93010 ==

== ENCOUNTER 2024-02-18 22:52 | Emergency (ER) | payer MEDICARE, BC, SELFPAY ==
--- NOTE | 2024-02-18 | ECG_ITS ---
Test Reason : HYPERTENSION Blood Pressure : / mmHG Vent. Rate : 086 BPM Atrial Rate : 086 BPM P-R Int : 148 ms QRS Dur : 078 ms QT Int : 364 ms P-R-T Axes : 072 -23 050 degrees QTc Int : 435 ms Normal sinus rhythm Nonspecific ST abnormality Abnormal ECG When compared with ECG of 25-DEC-2023 15:20, No significant change was found Referred By: Deana Brock Electronically Signed By:PHILIP GOMEZ
--- NOTE | ~2024-02-18 | CT_ITS ---
EXAMINATION: CT HEAD WITHOUT CONTRAST CLINICAL INFORMATION: Severe hypertension, headache. COMPARISON: CT head 12/16/2023. TECHNIQUE: Contiguous axial imaging was performed from the skull base to vertex without intravenous administration of contrast. This CT examination was performed using dose optimization techniques as appropriate, variously including the following: *Automated exposure control *Adjustment of mA and/or kV according to patient size (this includes techniques or standardized protocols for targeted exams where dose is matched to indication/reason for exam; i.e. extremities or head) *Use of iterative reconstruction technique DLP: 618 mGy-cm FINDINGS: Unchanged encephalomalacia/gliosis in the white matter of left centrum semiovale (2:35) There is no evidence of acute intracranial hemorrhage or edematous territorial infarction. A few foci of hypoattenuation in the periventricular and deep white matter are consistent with mild microangiopathy. Melara-white matter differentiation is preserved. Proportional prominence of the ventricles and sulcal spaces. No evidence for obstructive hydrocephalus. No abnormal mass effect or midline shift. No extra-axial fluid collections. No acute soft tissue or osseous abnormalities. Redemonstration of atelectatic right maxillary sinus with mucosal thickening. Otherwise, paranasal sinuses, middle ear cavities and mastoids are clear. CT/CT head/brain wo IV con IMPRESSION: 1. No evidence of acute intracranial hemorrhage or edematous territorial infarction. 2. Unchanged encephalomalacia/gliosis in the white matter of the left centrum semiovale. 3. Mild chronic microangiopathy and generalized cerebral volume loss. 4. Stable atelectatic right maxillary sinus with mucosal thickening. Electronically signed by: Krys Ratliff MD 02/19/2024 12:51 AM EDT
--- NOTE | ~2024-02-18 | XR_ITS ---
EXAMINATION: XR CHEST CLINICAL INFORMATION: Cough, history of COPD. COMPARISON: Chest radiograph 12/25/2023. TECHNIQUE: Frontal view of the chest was obtained. FINDINGS: Stable appearance of the cardiomediastinal silhouette including unchanged enlarged central pulmonary arteries. Slightly increased diffuse interstitial coarsening. No dense consolidation. No pleural effusion or pneumothorax. Cervical spinal hardware. No acute osseous findings. XR/XR chest 1V IMPRESSION: 1. Slightly increased diffuse interstitial coarsening which is nonspecific and could be associated with atypical/viral infection and small airways disease. No dense consolidation or pleural effusion. 2. Redemonstration of enlarged central pulmonary arteries that could indicate pulmonary hypertension. Electronically signed by: Krys Ratliff MD 02/19/2024 12:44 AM EDT
[2024-02-18 23:00] VITALS: BP 213/97; PULSE 94; RESP 22; TEMP 36.9; O2SAT 95; BMI 23.6
[2024-02-18 23:21] VITALS: BP 212/96; PULSE 90; RESP 18; TEMP 36.8; O2SAT 96
[2024-02-18 23:22] VITALS: BP 253/105; PULSE 89; RESP 16
[2024-02-18 23:28] VITALS: PULSE 88; O2SAT 96
[2024-02-18 23:39] LABS: MANUAL DIFF FLAG NO
--- NOTE | 2024-02-18 23:39 | ED_ITS ---
HPI - General Adult General Chief complaint: Upper Respiratory Symptoms Stated complaint: Cough for a week Time Seen by Provider: 02/18/24 23:15 Source: patient Mode of arrival: ambulatory Limitations: no limitations History of Present Illness ED Provider: Dr. Deana Brock HPI narrative: Patient comes to the emergency room complaining of 1 week of cough. Patient states she has been taking hmks-oox-orsfroe medications for the cough. Now, patient has a high blood pressure in the 200s. Patient complaining of a headache and complaining of her bloody looking right eye. Patient denies any pain, no vision changes. Denies chest pain or shortness of breath. Related Data Home Medications ?Medication ?Instructions ?Recorded ?Confirmed albuterol sulfate 90 mcg/actuation 2 puff inhalation Q4H PRN wheezing 11/15/22 08/28/23 aerosol inhaler amlodipine 5 mg tablet 10 mg PO DAILY 11/15/22 11/15/22 aspirin 81 mg capsule 81 mg PO DAILY 11/15/22 08/28/23 buspirone 10 mg tablet 10 mg PO BID 11/15/22 08/28/23 wmgvwmojxq-zeiggyzyxzxzn-yuouwlaq 1 cap PO DAILY PRN Headache 11/15/22 08/28/23 50 mg-300 mg-40 mg capsule cholecalciferol (vitamin D3) 50 100 mcg PO DAILY 11/15/22 08/28/23 mcg (2,000 unit) capsule clopidogrel 75 mg tablet 75 mg PO DAILY 11/15/22 08/28/23 duloxetine 60 mg capsule,delayed 60 mg PO DAILY 11/15/22 08/28/23 release erenumab-aooe 140 mg/mL 140 mg subcut Q28D 11/15/22 08/28/23 subcutaneous auto-injector (Aimovig Autoinjector) esomeprazole magnesium 40 mg 40 mg PO DAILY@0630 11/15/22 08/28/23 capsule,delayed release fluticasone fur. 100 mcg-umeclid 1 ea inhalation DAILY 11/15/22 08/28/23 62.5 mcg-vilant 25 mcg inhalat.powder (Trelegy Ellipta) fluticasone propionate 50 1 spray intranasal BID PRN 11/15/22 08/28/23 mcg/actuation nasal allergies spray,suspension hydrochlorothiazide 25 mg tablet 25 mg PO DAILY 11/15/22 08/28/23 immun glob G 10 50 ml subcut QWEEK 11/15/22 08/28/23 gram/50mL(20%)-gly-IgA over 50 mcg/mL subcutaneous suzanna (Cuvitru) levalbuterol HCl 1.25 mg/0.5 mL 1.25 mg inhalation TID PRN 11/15/22 08/28/23 solution for nebulization Shortness Of Breath Or Wheezing metoprolol tartrate 25 mg tablet 25 mg PO BID 11/15/22 08/28/23 nitroglycerin 0.4 mg sublingual 0.4 mg sublingual Q5M PRN Chest 11/15/22 08/28/23 tablet Pain ocrelizumab 30 mg/mL intravenous 600 mg IV [id number] 11/15/22 08/28/23 solution oxycodone-acetaminophen 10 mg-325 1 tab PO Q4-6H PRN Pain (Scale 11/15/22 08/27/23 mg tablet Score 4-6) potassium chloride 20 mEq 20 meq PO DAILY 11/15/22 08/28/23 tablet,extended release(part/cryst) (Klor-Con M) pregabalin 150 mg capsule 150 mg PO TID 11/15/22 08/28/23 atorvastatin 40 mg tablet 40 mg PO BEDTIME 08/28/23 08/28/23 Previous Rx's ?Medication ?Instructions ?Recorded lidocaine 5 % topical patch 3 patch topical DAILY #30 ea 12/16/23 (Lidoderm) benzonatate 200 mg capsule 200 mg PO TID PRN cough #30 caps 12/25/23 cefuroxime axetil 500 mg tablet 500 mg PO BID 10 days #20 tabs 12/25/23 doxycycline hyclate 100 mg tablet 100 mg PO BID #20 tabs 12/25/23 prednisone 20 mg tablet 40 mg (2 x 20 mg) PO DAILY #10 tabs 12/25/23 azithromycin 250 mg tablet 250 mg PO DAILY 4 days #4 tabs 02/19/24 cefuroxime axetil 500 mg tablet 500 mg PO BID #10 tabs 02/19/24 prednisone 50 mg tablet 50 mg PO DAILY #5 tabs 02/19/24 Allergies Allergy/AdvReac Type Severity Reaction Status Date / Time codeine [CODEINE] Allergy Unknown Hives Verified 02/18/24 23:03 Review of Systems 2 Review of Systems: Constitutional : No Weight loss, No Fever, No Chills, No Night Sweats, No Fatigue, No Malaise ENT/Mouth : No Hearing loss, No Ear Pain, No Nasal Congestion, No Sinus Pain, No Hoarseness, No sore throat, No Rhinorrhea, No Swallowing Difficulty Eyes: complaining of red eye on the right, No Eye Pain, No Swelling, No Redness, No Foreign Body, No Discharge, No Vision Changes Cardiovascular : No Chest Pain, No SOB, No Dyspnea on Exertion, No Orthopnea, No Edema, No Palpitations Respiratory : Complaining of dry cough, No Wheezing, No Smoke Exposure, No Dyspnea Gastrointestinal : No Nausea, No Vomiting, No Diarrhea, No Constipation, No abdominal Pain, No Hematochezia, No Melena Genitourinary : no irregular bleeding, No Dysuria, No Urinary Frequency, No Hematuria, No Urinary Incontinence, No Urgency, No Flank Pain, No Urinary Flow Changes, No Hesitancy Musculoskeletal : No joint pain, No Myalgias, No Joint Swelling Skin : No Skin Lesions, No rash Neuro : No Weakness, No Numbness, No Paresthesias, No Loss of Consciousness, No Dizziness, complaining of Headache Psych : No Anxiety/Panic, No Depression, No SI/HI/AH/VH, No Social Issues, Heme/Lymph: No Bruising, No Bleeding,No Lymphadenopathy Endocrine : No Polyuria, No Polydipsia, No Temperature Intolerance [facility] Past Medical History Medical History History of CAD (coronary artery disease) Peripheral vascular disease Chronic back pain GERD (gastroesophageal reflux disease) High cholesterol HTN (hypertension) Immune disorder COPD (chronic obstructive pulmonary disease) Multiple sclerosis Surgical History History of angioplasty History of heart artery stent Social History Social History Household Members: Spouse Housing: House Do you presently have visiting nurse or other home services: No Alcohol intake: never Patient Tobacco Use Status: Current everyday Tobacco user Tobacco use type: Cigarette Cigarettes Per Day: 15 Smoked in Last 30 Days: Yes Use of substances other than those prescribed or required for medical reasons: No Advance Directives: Yes Advance Directives on File: Yes Advance Directives Date on File: 11/22/22 Do you have a plan to hurt others: No Plan service: No Current occupational status: retired Physical Exam ED Vital Signs: Vital Signs - 24 hr 02/18/24 23:00 02/18/24 23:21 02/18/24 23:22 Temperature 98.4 F 98.3 F Pulse Rate 94 90 89 Respiratory Rate 22 H 18 16 Blood Pressure 213/97 H 212/96 H 253/105 H Pulse Oximetry 95 96 Oxygen Delivery Method Nasal Cannula Nasal Cannula Oxygen Flow Rate 2 02/18/24 23:28 02/18/24 23:44 02/19/24 00:21 Temperature Pulse Rate 87 72 Respiratory Rate 16 Blood Pressure 240/84 H 188/76 H Pulse Oximetry 96 99 Oxygen Delivery Method Nasal Cannula Oxygen Flow Rate 2 02/19/24 01:10 02/19/24 01:18 Temperature Pulse Rate 81 76 Respiratory Rate 18 Blood Pressure 175/73 H 181/59 H Pulse Oximetry 100 Oxygen Delivery Method Nasal Cannula Oxygen Flow Rate 2 BMI result Body Mass Index 23.6 Const Other: Appearance: Alert. Oriented X3. No acute distress. Eyes: Pupils equal, round and reactive to light. subconjunctival hemorrhage on the right ENT: Pharynx normal. Neck: Normal inspection. Neck supple. No lymph nodes noted. No crepitus CVS: Normal heart rate and rhythm. Pulses normal. Normal S1 and S2 Respiratory: No respiratory distress. Breath sounds normal. No Wheezing. No rales , good air movement Abdomen: Soft and nontender. No rigidity. No distention. Skin: Skin warm and dry. Normal skin color. Normal skin turgor. Extremities: No lower extremity edema. No Lacerations. No Rash Neuro: Oriented X 3. No motor deficit. No sensory deficit. Moving all extremities. No slurred speech. CN 2 through 12 grossly intact Psych: calm, cooperative, normal affect Medications Administered Discontinued Medications Generic Name Dose Route Start Last Admin Trade Name Freq PRN Reason Stop Dose Admin Azithromycin 500 mg 02/18/24 23:33 02/18/24 23:44 Azithromycin 500 Mg Tablet PO 02/18/24 23:34 500 mg ONCE ONE Administration Ceftriaxone Sodium 1 gm/ 50 mls @ 100 mls/hr 02/18/24 23:33 02/19/24 00:18 Sodium Chloride IV 02/19/24 00:02 Infused ONCE ONE Infusion Labetalol HCl 10 mg 02/18/24 23:30 02/18/24 23:44 Labetalol Hcl 100 Mg/20 Ml Vial IVPUSH 02/18/24 23:31 10 mg ONCE ONE Administration Labetalol HCl 10 mg 02/19/24 00:54 02/19/24 01:15 Labetalol Hcl 100 Mg/20 Ml Vial IVPUSH 02/19/24 00:55 Not Given ONCE ONE Metoprolol Tartrate 50 mg 02/19/24 01:16 02/19/24 01:18 Metoprolol Tartrate 50 Mg Tablet PO 02/19/24 01:17 50 mg ONCE ONE Administration Protocol Potassium Chloride 60 meq 02/19/24 00:14 02/19/24 00:23 Potassium Chloride Packet 20 Meq Packet PO 02/19/24 00:15 60 meq ONCE ONE Administration Medical Decision Making Medical Decision Making [facility] Narrative: - my interpretation of EKG: Normal sinus rhythm, heart rate 86, no ST segment depression or elevation, no T-wave inversion, QTC 435 - my interpretation of labs: Patient's white blood cell count 12.7, likely reactive leukocytosis and chronic, potassium 3.1, repleted p.o. BNP and troponin at baseline, serology negative for influenza and COVID - patient was given 10 mg of IV labetalol for hypertensive urgency. Blood pressure dropped to 178 systolic. Then patient was given her home dose of metoprolol 50 mg tartrate. - Given patient's comorbidity, I discussed with the patient that she will have medication/ antibiotic available at her pharmacy. Patient agrees with plan. - Not much to do with a subconjunctival hemorrhage. Patient will follow-up with her primary care physician. - Differential Diagnosis Differential Diagnoses: The differential diagnosis associated with the presentation includes ( Hypertensive urgency, hypertensive emergency, viral syndrome, subconjunctival hemorrhage) Admission/Observation Consideration of admission/observation: Escalation of care including admission/observation considered ( given patient's high blood pressure, observation was considered) Lab Data [facility] Lab Attestation statement: I reviewed the patient's lab results. 02/18/24 23:35 02/18/24 23:35 Labs: Lab Results 02/18/24 02/18/24 Range/Units 23:35 23:40 WBC 12.7 H (4.8-10.8) X10*3/uL RBC 4.36 (4.20-5.50) X10*6/uL Hgb 12.9 (12.0-16.0) g/dl Hct 38.8 (37.0-47.0) % MCV 89.0 (80.0-98.0) fL MCH 29.6 (27.0-33.0) pg MCHC 33.2 (31.0-35.0) g/dl RDW 13.2 (11.0-16.0) % Plt Count 344 (160-400) X10*3/uL MPV 9.7 (9.4-12.3) fL Immature Gran % (Auto) 0.4 (0.0-0.4) % Neut % (Auto) 70.4 (45-73) % Lymph % (Auto) 19.2 L (20-40) % Payette % (Auto) 7.9 (2-11) % Eos % (Auto) 1.5 (0-4) % Baso % (Auto) 0.6 (0-2) % Lymph # (Auto) 2.4 (1.2-4.9) X10*3/uL [place]ette # (Auto) 1.0 (0.1-1.2) X10*3/uL Eos # (Auto) 0.2 (0.0-0.4) X10*3/uL Baso # (Auto) 0.1 (0.0-0.2) X10*3/uL Abs Immat Gran (auto) 0.05 H (0.00-0.03) X10*3/uL Absolute Neuts (auto) 8.9 H (2.0-8.3) x10*3/uL Absolute Nucleated RBC 0.000 (0.0-0.012) X10*3/uL Nucleated RBC % (auto) 0.0 (0.0-0.2) /100WBC PT 12.5 (11.1-13.3) SEC INR 1.0 (0.9-1.1) VBG pH 7.41 (7.32-7.43) VBG pCO2 47 mmHg VBG pO2 53 mmHg VBG HCO3 30 H (22-26) mmol/L VBG O2 Saturation 87.0 % VBG Base Excess 4.6 mmol/L Sodium 142 (135-145) mmol/L Potassium 3.1 L (3.3-5.1) mmol/L Chloride 105 (96-108) mmol/L Carbon Dioxide 27 (22-29) mmol/L Anion Gap 13 (12-20) BUN 8 L (9-16) mg/dL Creatinine 0.73 (0.5-1.4) mg/dL Estim Creat Clear Calc 52.5 Estimated GFR > 60 Random Glucose 116 H (60-115) mg/dL Calcium 9.5 (8.4-10.2) mg/dL Magnesium 2.0 (1.6-2.6) mg/dL Total Bilirubin 0.2 (0.0-1.0) mg/dL Direct Bilirubin < 0.2 (0.0-0.5) mg/dL AST 12 (5-31) U/L ALT 12 (0-31) U/L Alkaline Phosphatase 127 H (39-117) U/L Troponin I High Sens 5.2 D (<3.5-17.0) ng/L B-Natriuretic Peptide 228 H (<100) pg/mL Total Protein 6.7 (6.5-8.0) g/dL Albumin 4.0 (3.5-5.0) g/dL COVID-19 (ORLY) Negative (Negative) COVID-19 Clin Com See Note Influenza Type A (ELVIS) Negative (Negative) Influenza Type B (ELVIS) Negative (Negative) Influenza A & B Note See Note Independent Interpretation I performed an independent interpretation of an: Plain X-Ray and CT Scan Radiology Impression Discussion of test interpretation with radiology: I have reviewed the radiologist's reading. Radiologist Impression: 1. Slightly increased diffuse interstitial coarsening which is nonspecific and could be associated with atypical/viral infection and small airways disease. No dense consolidation or pleural effusion. 2. Redemonstration of enlarged central pulmonary arteries that could indicate pulmonary hypertension. Unchanged encephalomalacia/gliosis in the white matter of left centrum semiovale (2:35) There is no evidence of acute intracranial hemorrhage or edematous territorial infarction. A few foci of hypoattenuation in the periventricular and deep white matter are consistent with mild microangiopathy. Melara-white matter differentiation is preserved. Proportional prominence of the ventricles and sulcal spaces. No evidence for obstructive hydrocephalus. No abnormal mass effect or midline shift. No extra-axial fluid collections. No acute soft tissue or osseous abnormalities. Redemonstration of atelectatic right maxillary sinus with mucosal thickening. Otherwise, paranasal sinuses, middle ear cavities and mastoids are clear. CT/CT head/brain wo IV con IMPRESSION: 1. No evidence of acute intracranial hemorrhage or edematous territorial infarction. 2. Unchanged encephalomalacia/gliosis in the white matter of the left centrum semiovale. 3. Mild chronic microangiopathy and generalized cerebral volume loss. 4. Stable atelectatic right maxillary sinus with mucosal thickening. Independent Historian Clinical information obtained from an independent historian. History obtained from or confirmed by: Spouse Critical Care Time Critical Care Time Critical Care Time: Yes Total Critical Care Time: 60 Attestation: I have personally provided critical care time. Time includes review of lab data, radiology results, discussion with consultants, and monitoring for potential decompensation. Intervention performed as documented. Discharge Plan Discharge Clinical Impression: Hypertensive urgency, Headache, Subconjunctival hemorrhage, Bronchitis Patient Disposition: Home, Self-Care Instructions: Subconjunctival Hemorrhage (ED), Viral Syndrome (ED), Hypertensive Crisis (ED) Additional Instructions: Please follow-up with your primary care physician tomorrow. If you have any worsening or new symptoms, please return to the emergency room or call 911 Prescriptions: New prednisone 50 mg tablet 50 mg PO DAILY Qty: 5 0RF cefuroxime axetil 500 mg tablet 500 mg PO BID Qty: 10 0RF azithromycin 250 mg tablet 250 mg PO DAILY 4 Days Qty: 4 0RF Rx Instructions: start on day 2 of therapy No Action esomeprazole magnesium 40 mg capsule,delayed release(DR/EC) 40 mg PO DAILY@0630 buspirone 10 mg tablet 10 mg PO BID albuterol sulfate 90 mcg/actuation HFA aerosol inhaler 2 puff inhalation Q4H PRN (Reason: wheezing) fluticasone propionate 50 mcg/actuation spray,suspension 1 spray intranasal BID PRN (Reason: allergies) duloxetine 60 mg capsule,delayed release(DR/EC) 60 mg PO DAILY cholecalciferol (vitamin D3) 50 mcg (2,000 unit) capsule 100 mcg PO DAILY vlhgoabcbn-lwacbgihnvivb-xglf 50-300-40 mg capsule 1 cap PO DAILY PRN (Reason: Headache) Aimovig Autoinjector 140 mg/mL auto-injector 140 mg subcut Q28D Cuvitru 10 gram/50 mL (20 %) solution 50 ml subcut QWEEK amlodipine 5 mg tablet 10 mg PO DAILY potassium chloride [Klor-Con M20] 20 mEq tablet,ER particles/crystals 20 meq PO DAILY oxycodone-acetaminophen 10-325 mg tablet 1 tab PO Q4-6H PRN (Reason: Pain (Scale Score 4-6)) nitroglycerin 0.4 mg tablet, sublingual 0.4 mg sublingual Q5M PRN (Reason: Chest Pain) Rx Instructions: do not exceed 3 doses/24 hrs hydrochlorothiazide 25 mg tablet 25 mg PO DAILY metoprolol tartrate 25 mg tablet 25 mg PO BID pregabalin 150 mg capsule 150 mg PO TID ocrelizumab 30 mg/mL Solution 600 mg IV [id number] aspirin 81 mg Capsule 81 mg PO DAILY Trelegy Ellipta 100-62.5-25 mcg blister with device 1 ea inhalation DAILY levalbuterol HCl 1.25 mg/0.5 mL solution for nebulization 1.25 mg inhalation TID PRN (Reason: Shortness Of Breath Or Wheezing) clopidogrel 75 mg tablet 75 mg PO DAILY atorvastatin 40 mg Tablet 40 mg PO BEDTIME lidocaine [Lidoderm] 5 % adhesive patch,medicated 3 patch topical DAILY Qty: 30 0RF Rx Instructions: leave on most painful area for up to 12 hrs cefuroxime axetil 500 mg tablet 500 mg PO BID 10 Days Qty: 20 0RF doxycycline hyclate 100 mg tablet 100 mg PO BID Qty: 20 0RF benzonatate 200 mg capsule 200 mg PO TID PRN (Reason: cough) Qty: 30 0RF prednisone 20 mg tablet 40 mg PO DAILY Qty: 10 0RF Print Language: Slovak
[2024-02-18 23:41] LABS: Basophils Absolute Auto 0.1 X10*3/uL (0.0-0.2); Basophils Percent Auto 0.6 % (0-2); Eosinophils Absolute Auto 0.2 X10*3/uL (0.0-0.4); Eosinophils Percent Auto 1.5 % (0-4); Hematocrit 38.8 % (37.0-47.0); Hemoglobin 12.9 g/dl (12.0-16.0); Imm Gran Abs Auto 0.05 X10*3/uL (0.00-0.03); Imm Gran Pct Auto 0.4 % (0.0-0.4); Lymphocytes Absolute Auto 2.4 X10*3/uL (1.2-4.9); Lymphocytes Percent Auto 19.2 % (20-40); Mean Corpuscular HGB Conc 33.2 g/dl (31.0-35.0); Mean Corpuscular Hemoglobin 29.6 pg (27.0-33.0); Mean Platelet Volume 9.7 fL (9.4-12.3); Monocytes Percent Auto 7.9 % (2-11); Neutrophils Absolute Auto 8.9 x10*3/uL (2.0-8.3); Neutrophils Percent Auto 70.4 % (45-73); Platelet Count 344 X10*3/uL (160-400); Red Blood Count 4.36 X10*6/uL (4.20-5.50); Red Cell Distribution Width 13.2 % (11.0-16.0); Venous Blood Gas Refer to POC result; White Blood Count 12.7 X10*3/uL (4.8-10.8)
--- NOTE | 2024-02-18 23:41 | MHC.EDTECH ---
This Tech assumed care of this pt upon arrival. Pt changed over into a hospital gown and placed on a rn cardiac. EKG done and handed to a provider. Bloodwork completed and sent to the lab for processing. Pt is currently on 2Liters O2 on nasal cannula
[2024-02-18 23:44] VITALS: BP 240/84; PULSE 87
[2024-02-18 23:44] LABS: VBG Base Excess 4.6 mmol/L; VBG HCO3 30 mmol/L (22-26); VBG pCO2 47 mmHg; VBG pH 7.41 (7.32-7.43); VBG pO2 53 mmHg
[2024-02-18] MEDS: Azithromycin 500 MG TABLET PO (23:44)
[2024-02-18] MEDS: Labetalol HCL 100 MG/20 ML VIAL 10 MG IVPUSH (23:44)
[2024-02-18] MEDS: cefTRIAXone sodium 1 GM in 0.9 % Sodium Chloride 50 ML IV (23:45)
[2024-02-18 23:46] LABS: Prothrombin Time 12.5 SEC (11.1-13.3)
[2024-02-18 23:54] LABS: Alanine Aminotransferase 12 U/L (0-31); Alkaline Phosphatase 127 U/L (39-117); Anion Gap 13 (12-20); Aspartate Amino Transferase 12 U/L (5-31); Bilirubin Direct < 0.2 mg/dL (0.0-0.5); Bilirubin Total 0.2 mg/dL (0.0-1.0); Blood Urea Nitrogen 8 mg/dL (9-16); Calcium 9.5 mg/dL (8.4-10.2); Carbon Dioxide 27 mmol/L (22-29); Chloride 105 mmol/L (96-108); Creatinine Clr Calc Pharmacy 52.5; Estimated Glomerular Filt Rate > 60; Glucose Random 116 mg/dL (60-115); Potassium 3.1 mmol/L (3.3-5.1); Sodium 142 mmol/L (135-145); Total Protein 6.7 g/dL (6.5-8.0)
[2024-02-18 23:56] LABS: COVID-19 Test Negative (Negative); IDNOW Serial# 152EDE1D
[2024-02-18 23:58] LABS: IDNOW Serial# 08D9AD1C; Influenza A Negative (Negative); Influenza B2 Negative (Negative)
[2024-02-19] LABS: B Type Natriuretic Peptide 228 pg/mL (<100); Troponin-I High Sensitivity 5.2 ng/L (<3.5-17.0)
[2024-02-19 00:21] VITALS: BP 188/76; PULSE 72; RESP 16; O2SAT 99
[2024-02-19] MEDS: Potassium Chloride Packet 20 MEQ PACKET 60 MEQ PO (00:23)
[2024-02-19 01:10] VITALS: BP 175/73; PULSE 81; RESP 18; O2SAT 100
[2024-02-19 01:18] VITALS: BP 181/59; PULSE 76
[2024-02-19] MEDS: Metoprolol Tartrate 50 MG TABLET PO (01:18)
[2024-02-19 01:31] VITALS: BP 181/59; PULSE 76; RESP 18; TEMP 36.8; O2SAT 9
== END 2024-02-19 01:34 | disposition home or self-care (01) ==
PROVIDERS: Emergency Provider Emergency Medicine; PCP Internal Medicine
DX: I16.0 Hypertensive urgency (principal); H11.30 Conjunctival hemorrhage, unspecified eye; J40 Bronchitis, not specified as acute or chronic; R51.9 Headache, unspecified; R05.9 Cough, unspecified; R94.31 Abnormal electrocardiogram [ECG] [EKG]; F17.210 Nicotine dependence, cigarettes, uncomplicated; Z11.52 Encounter for screening for COVID-19; Z79.899 Other long term (current) drug therapy
CPT/HCPCS: 70450; 71045; 80048; 80076; 82803; 83735; 83880; 84484; 85025; 85610; 87502; 87635; 93005; 96365; 96375; 99284; 99285; J0696; J1920

== ENCOUNTER 2024-04-09 14:00 | Outpatient (RCR) | payer OTHER, MEDICARE, BC, SELFPAY | END 2024-05-08 10:40 | disposition home or self-care (01) | LOC: HO.PTCHIC 14:00 | PROVIDERS: PCP Internal Medicine; Visit Provider Nurse Practitioner Family | DX: M25.561 Pain in right knee (principal); M25.562 Pain in left knee; M54.2 Cervicalgia | CPT/HCPCS: 97110; 97162 ==

== ENCOUNTER 2024-06-08 13:00 | Outpatient (RCR) | payer OTHER, MEDICARE, BC, SELFPAY | END 2024-07-07 10:22 | disposition home or self-care (01) | LOC: HO.PTCHIC 13:00 | PROVIDERS: PCP Internal Medicine; Visit Provider Nurse Practitioner Family | DX: M54.50 Low back pain, unspecified (principal) | CPT/HCPCS: 97014; 97110; 97162 ==

== ENCOUNTER 2024-07-06 17:58 | Inpatient (IN) | payer MEDICARE, BC, SELFPAY ==
--- NOTE | ~2024-07-06 | XR_ITS ---
CLINICAL HISTORY: abnormal lung sounds 1 view chest x-ray Comparison: 07/07/2024 Findings: There is interstitial consolidation, possible pneumonia or pulmonary edema. There is partial clearing of left lower lobe consolidation Heart size is normal. No acute fracture. IMPRESSION: 1. Interstitial consolidation, differential considerations noted. 2. Partial clearing of left lower lobe consolidation. This document has been electronically signed by: Sam Loredo MD on 07/10/2024 06:07:37
--- NOTE | ~2024-07-06 | FL_ITS ---
EXAMINATION: Modified Barium Swallow CLINICAL INFORMATION: Dysphagia COMPARISON: None TECHNIQUE: Modified barium swallow was performed under lateral fluoroscopy with patient in standing position. Barium mixed with solids and liquids of different consistencies was administered by the speech pathologist. Examination was recorded in the fluoroscopy suite. FINDINGS: Trace laryngeal penetration is seen with thin consistency barium. No subglottic aspiration was observed. There is moderate cricopharyngeal achalasia present. Anterior and interbody fusion is seen at C5-C6. FLUOROSCOPY TIME: 1 minute and 55 seconds Number of Spot Images: N/A DOSE AREA PRODUCT: 673.7 uGy-m2 (microgray-meter squared) FL/FL Modified Barium Swallow IMPRESSION: 1. Trace laryngeal penetration with thin consistency barium. No subglottic aspiration observed. 2. Moderate cricopharyngeal achalasia. 3. Status post anterior and interbody fusion at C5-C6. Refer to the speech therapy report for further clarification This procedure was performed by Zach Rivera PA-C, and supervised by Dr. Gongora Electronically signed by: Kee Gongora MD 07/17/2024 09:17 AM [facility] [place]
--- NOTE | ~2024-07-06 | FL_ITS ---
EXAMINATION: FL GUIDANCE ONLY HISTORY: hip cannulated screw fixation left COMPARISON: None available. TECHNIQUE: Fluoroscopy time: 0.7 minutes. Cumulative Dose: 5.81 mGy. DAP: 1.58 uGy-m2 (microgray-meter squared). Images: 2. FINDINGS: Images demonstrate placement of 3 cannulated screws in the left femoral neck. FL/FL guidance in OR IMPRESSION: Fluoroscopy during procedure. Please see procedure report for additional information. Electronically signed by: Morgan Chapin MD 07/13/2024 08:08 AM [facility]
--- NOTE | ~2024-07-06 | CT_ITS ---
CLINICAL HISTORY: Fall, left-sided abdominal pain rule out bleed, in CT abdomen and pelvis with contrast Comparison: CT/REG/CO/SR - ABD PELVIS WO CONT [id number] - 04/04/19 19:34 EDT Findings: No consolidation or effusion. The gallbladder is surgically absent. There is diffuse compensatory distention of the biliary tree. The kidneys, spleen, and pancreas are normal. Stable left adrenal adenoma. No bowel obstruction, pneumoperitoneum, or pneumatosis. Sigmoid diverticulosis. Focal atherosclerotic occlusion of the left superficial femoral artery, likely chronic. Intervertebral body fusion spanning L4-S1. No acute fracture. Severe atherosclerotic stenosis of the proximal SMA. IMPRESSION: 1. Severe atherosclerotic stenosis of the proximal SMA. 2. Focal atherosclerotic occlusion of the left superficial femoral artery, likely chronic. This document has been electronically signed by: Zach Singer MD on 07/06/2024 23:12:16
--- NOTE | ~2024-07-06 | CT_ITS ---
CLINICAL HISTORY: Shortness of breath CT angiography chest with contrast. With MIP MPR Postprocessing. Comparison: Chest CT from 07/06/2024 Findings: No central pulmonary embolism. Mild/borderline dilatation of the main pulmonary arteries. Calcified and noncalcified plaque redemonstrated imaged aorta and its branches. mild cardiomegaly. Bilateral pulmonary opacities are multifocal and concerning for multifocal pneumonia with consolidation bases of the lower lobes, left worse than right. Trace pleural effusions. No pneumothorax. Mild emphysematous changes and scarring are redemonstrated. Likely enteric contrast in the large intestine. Interim decrease in biliary ductal dilatation. Otherwise, no significant change of the imaged upper abdomen, including 2.3 cm nodule of the left adrenal gland. Degenerative changes include the shoulders and spine. Mild-moderate T8 height loss accentuated by upper endplate Schmorl's node without significant change from comparison. No significant change in mild height loss of T12 IMPRESSION: 1. No central pulmonary embolism. 2. New airspace disease concerning for pneumonia particularly in the lung bases, left worse than right. Recommend attention on follow-up to ensure resolution. This document has been electronically signed by: Lewis Bloom MD on 07/20/2024 23:48:00
--- NOTE | ~2024-07-06 | CT_ITS ---
CLINICAL HISTORY: Fall, neck pain, R O fracture CT cervical spine without contrast Comparison: CT/REG/SR - CT CERVICAL SPINE WO IV CON - 12/16/23 18:18 EDT Findings: Vertebral alignment is within normal limits. Moderate multilevel degenerative disc disease and facet arthrosis. Anterior and interbody fusion spanning C5-C6. No fracture. Visualized intracranial contents are unremarkable. No cervical fluid collections or masses. Moderate emphysema in the lung apices. IMPRESSION: No acute findings. This document has been electronically signed by: Zach Singer MD on 07/06/2024 23:24:03
--- NOTE | ~2024-07-06 | CT_ITS ---
CLINICAL HISTORY: pneupmnia CT chest without contrast Comparison: Contrast enhanced 07/06/2024 CT Findings: Smoking-related lung changes. Mostly new patchy subsegmental ground-glass opacities (along with increased reticular markings) in the left upper and lower lobes. New increased interstitial lung markings predominantly in the lower lobes along with small number of scattered right lung small nodules. More consolidated, new opacities in the medial aspects of the basilar portions of the lower lobes bilaterally. Two subsegmental opacities in the right middle lobe and anterior basal segment of the left lower lobe as before. Mild secretions in the main and left bronchi. Airway nodules in portions of the lower lobe bronchi at least partially due to mucous/secretions. Bilateral lower lobe bronchial wall thickening. New trace left pleural effusion. Left proximal common carotid artery stent. Coronary artery calcifications. Query pulmonary arterial hypertension as before. Chronic appearing moderate height loss of a few of the thoracic superior endplates. Benign left adrenal adenoma not significantly changed from an earlier 08/03/[address] scan. Incompletely evaluated lower cervical spine hardware. Spinal degenerative changes. IMPRESSION: 1. Findings suggestive of multilobar left more than right pneumonia (superimposed medial bibasilar aspiration pneumonia cannot be excluded) on a background of more diffuse bronchitis/bronchiolitis. Follow-up CT in 1 month for determination of temporal evolution of findings recommended. This document has been electronically signed by: Shameka Talbot MD on 07/11/2024 14:26:37
--- NOTE | ~2024-07-06 | XR_ITS ---
EXAMINATION: XR CHEST CLINICAL INFORMATION: SOB COMPARISON: Generated 04/10/2024. TECHNIQUE: Frontal view of the chest was obtained. FINDINGS: Pulmonary reticular nodular pattern. Linear opacities in the lower hemithoraces, bilaterally. Bilateral apical lung scarring. No gross pleural effusion or pneumothorax. Calcified plaque thoracic aortic arch. Multilevel thoracic spondylosis. Degenerative changes in the acromioclavicular joints. Residual contrast within the splenic colonic flexure. XR/XR chest 1V IMPRESSION: Pulmonary edema in the correct clinical settings. Superimposed acute inflammatory versus infectious process cannot be excluded. Electronically signed by: Vipul Morocho MD 07/20/2024 09:45 AM EST
--- NOTE | ~2024-07-06 | CT_ITS ---
CLINICAL HISTORY: encephalopathy, twitching movements CT head without contrast Comparison: XA/OT/TX - FL GUIDANCE IN OR - 07/12/24 09:[address]/SR - CT HEAD/BRAIN WO IV CON - 07/06/24 21:10 EST Findings: Examination is limited due to motion artifact. Mild bilateral periventricular hypodensities are present. Remote lacunar infarct is seen in the right thalamus. There is no definite evidence of hemorrhage, mass, or acute infarction. The ventricles are within normal limits. Mild mucosal thickening is seen in bilateral sphenoid sinuses. The orbital contents are unremarkable. There is no acute fracture. IMPRESSION: 1. Limited examination due to motion artifact. No acute intracranial abnormality is identified. 2. Mild chronic microvascular ischemic disease. 3. Mild bilateral sphenoid sinus disease. This document has been electronically signed by: Teja Quinones on 07/20/2024 09:43:45
--- NOTE | ~2024-07-06 | CT_ITS ---
CLINICAL HISTORY: Fall, head injury, R O fracture, bleed CT head without contrast Comparison: CT/SC/SR - CT HEAD/BRAIN WO IV CON - 02/18/24 23:51 EDT Findings: No intra-axial mass, midline shift, hydrocephalus, or acute hemorrhage. Periventricular and subcortical white matter hypodensities consistent with small vessel ischemic changes. Mucosal thickening in the sphenoid sinuses. The orbits are within normal limits. There is no acute fracture. IMPRESSION: 1. No acute intracranial abnormality. 2. Sphenoid sinusitis. This document has been electronically signed by: Zach Singer MD on 07/06/2024 23:30:05
--- NOTE | ~2024-07-06 | XR_ITS ---
CLINICAL HISTORY: Recent left hip trauma 2 view, pelvis and left hip Comparison: 09/01/2020 Findings: Normal alignment. Mildly impacted fracture of the subcapital portion of the left femoral neck. Small likely benign density projecting over the subtrochanteric aspect of the femur is mildly more dense/conspicuous than prior exam. Hip labral calcifications. Vascular calcifications. Surgical clips projecting over the lumbosacral junction. IMPRESSION: Mildly impacted fracture of the subcapital portion of the left femoral neck. This document has been electronically signed by: Shameka Talbot MD on 07/11/2024 08:38:10
--- NOTE | ~2024-07-06 | CT_ITS ---
CLINICAL HISTORY: Fall, left anterior chest and left lateral chest t CT chest with contrast Comparison: CT - CT CHEST W IV CON - 07/06/24 21:11 EST Findings: The heart size is normal. Multifocal severe atherosclerotic stenosis in the left subclavian and left axillary arteries. Moderate atherosclerotic stenosis of the right common carotid artery. Patent left common carotid artery stent. Distention of the pulmonary arteries indicating pulmonary artery hypertension The visualized thyroid and mediastinum are unremarkable. Right middle lobe and left lower lobe atelectasis. Diffuse bronchial wall thickening and mucous plugging in the lung bases representing acute bronchitis. Moderate emphysema. Stable left adrenal adenoma. Chronic biliary ductal dilatation. The gallbladder is surgically absent. No acute fractures. IMPRESSION: 1. Acute bronchitis. 2. Multifocal severe atherosclerotic stenosis in the left subclavian and left axillary arteries. 3. Moderate atherosclerotic stenosis of the right common carotid artery. 4. Findings of pulmonary artery hypertension. This document has been electronically signed by: Zach Singer MD on 07/06/2024 22:44:41
--- NOTE | ~2024-07-06 | XR_ITS ---
EXAMINATION: XR CHEST 1 VIEW HISTORY: worsening hypoxia COMPARISON: Comparison is made with the prior examination dated 02/19/2024. FINDINGS: A single AP portable view of the chest performed at 3:13 PM is submitted. There is partial opacification of the left lung base, consistent with atelectasis or pneumonia. There is probable subsegmental atelectasis in the right middle lobe. There is no pleural effusion, pneumothorax, or pulmonary vascular congestion. The heart is normal in size. The aorta is calcified. There is degenerative disc disease of the spine. XR/XR chest 1V IMPRESSION: Left lower lobe atelectasis versus pneumonia. Electronically signed by: Morgan Chapin MD 07/07/2024 03:26 PM EST
--- NOTE | ~2024-07-06 | XR_ITS ---
CLINICAL HISTORY: Bilateral worsening rhonchi and crackles 1 view chest x-ray Comparison: CR - XR CHEST 1V - 07/10/24 05:28 EST Findings: Increased interstitial lung markings, similar to prior. Persistent focal opacity at the left lung base. Appearance of the lungs is similar in comparison prior. Heart size is normal. No acute fracture. IMPRESSION: 1. No significant change in bilateral increased interstitial lung markings and left lower lobe ill-defined opacity. This document has been electronically signed by: Pola Anderson MD on 07/11/2024 00:40:04
[2024-07-06 18:29] VITALS: BP 219/96; BP 241/79; PULSE 64; PULSE 74; RESP 16; TEMP 36.8; O2SAT 97; BMI 24.8
--- NOTE | 2024-07-06 18:40 | ECG_ITS ---
Test Reason : FALL Blood Pressure : */* mmHG Vent. Rate : 71 BPM Atrial Rate : 71 BPM P-R Int : 158 ms QRS Dur : 78 ms QT Int : 390 ms P-R-T Axes : 72 -21 54 degrees QTcB Int : 423 ms Normal sinus rhythm Normal ECG When compared with ECG of 18-Feb-2024 23:26, No significant change was found Referred By: Earle Skinner Electronically Signed By: PARAM CASTELAN MD
--- NOTE | 2024-07-06 18:50 | ED_ITS ---
HPI - Fall General Chief Complaint: Fall Stated Complaint: Fall, + head strike, +thinners, -loc Time Seen by Provider: 07/06/24 18:12 Source: patient and family (Daughter who is a nurse [place] [facility] [place] Mode of arrival: EMS Limitations: no limitations History of Present Illness ED Provider: Dr. Earle Skinner HPI Narrative: 73-year-old female with a history of diabetes mellitus, hypertension, MS, COPD who continues to smoke, vascular disease, chronic back pain on oxycodone who presents emergency department for evaluation of injuries from a fall. Patient states that she walking up icey stairs. She was states she was 3 steps from the top when she slipped and fell. She did strike the left side of her head, left chest and left hip on the stairs. She was unable to get up but her was able to get her into the house. She was unable to stand and walk secondary to left hip pain. She was currently complaining of a left-sided headache. Left- sided chest and abdominal pain and left-sided hip pain. She states that the pain is severe and is 9/10. Related Data Home Medications ?Medication ?Instructions ?Recorded ?Confirmed albuterol sulfate 90 mcg/actuation 2 puff inhalation Q4H PRN wheezing 11/15/22 08/28/23 aerosol inhaler amlodipine 5 mg tablet 10 mg PO DAILY 11/15/22 11/15/22 aspirin 81 mg capsule 81 mg PO DAILY 11/15/22 08/28/23 buspirone 10 mg tablet 10 mg PO BID 11/15/22 08/28/23 upvsitotml-xswxvsvtwtfkb-vycsqzdt 1 cap PO DAILY PRN Headache 11/15/22 08/28/23 50 mg-300 mg-40 mg capsule cholecalciferol (vitamin D3) 50 100 mcg PO DAILY 11/15/22 08/28/23 mcg (2,000 unit) capsule clopidogrel 75 mg tablet 75 mg PO DAILY 11/15/22 08/28/23 duloxetine 60 mg capsule,delayed 60 mg PO DAILY 11/15/22 08/28/23 release erenumab-aooe 140 mg/mL 140 mg subcut Q28D 11/15/22 08/28/23 subcutaneous auto-injector (Aimovig Autoinjector) esomeprazole magnesium 40 mg 40 mg PO DAILY@0630 11/15/22 08/28/23 capsule,delayed release fluticasone fur. 100 mcg-umeclid 1 ea inhalation DAILY 11/15/22 08/28/23 62.5 mcg-vilant 25 mcg inhalat.powder (Trelegy Ellipta) fluticasone propionate 50 1 spray intranasal BID PRN 11/15/22 08/28/23 mcg/actuation nasal allergies spray,suspension hydrochlorothiazide 25 mg tablet 25 mg PO DAILY 11/15/22 08/28/23 immun glob G 10 50 ml subcut QWEEK 11/15/22 08/28/23 gram/50mL(20%)-gly-IgA over 50 mcg/mL subcutaneous suzanna (Cuvitru) levalbuterol HCl 1.25 mg/0.5 mL 1.25 mg inhalation TID PRN 11/15/22 08/28/23 solution for nebulization Shortness Of Breath Or Wheezing metoprolol tartrate 25 mg tablet 25 mg PO BID 11/15/22 08/28/23 nitroglycerin 0.4 mg sublingual 0.4 mg sublingual Q5M PRN Chest 11/15/22 08/28/23 tablet Pain ocrelizumab 30 mg/mL intravenous 600 mg IV [id number] 11/15/22 08/28/23 solution oxycodone-acetaminophen 10 mg-325 1 tab PO Q4-6H PRN Pain (Scale 11/15/22 08/27/23 mg tablet Score 4-6) potassium chloride 20 mEq 20 meq PO DAILY 11/15/22 08/28/23 tablet,extended release(part/cryst) (Klor-Con M) pregabalin 150 mg capsule 150 mg PO TID 11/15/22 08/28/23 atorvastatin 40 mg tablet 40 mg PO BEDTIME 08/28/23 08/28/23 Previous Rx's ?Medication ?Instructions ?Recorded lidocaine 5 % topical patch 3 patch topical DAILY #30 ea 12/16/23 (Lidoderm) benzonatate 200 mg capsule 200 mg PO TID PRN cough #30 caps 12/25/23 cefuroxime axetil 500 mg tablet 500 mg PO BID 10 days #20 tabs 12/25/23 doxycycline hyclate 100 mg tablet 100 mg PO BID #20 tabs 12/25/23 prednisone 20 mg tablet 40 mg (2 x 20 mg) PO DAILY #10 tabs 12/25/23 azithromycin 250 mg tablet 250 mg PO DAILY 4 days #4 tabs 02/19/24 cefuroxime axetil 500 mg tablet 500 mg PO BID #10 tabs 02/19/24 prednisone 50 mg tablet 50 mg PO DAILY #5 tabs 02/19/24 Allergies Allergy/AdvReac Type Severity Reaction Status Date / Time codeine [CODEINE] Allergy Unknown Hives Verified 07/06/24 18:37 Review of Systems 2 Review of Systems: Yes all other systems are reviewed and are negative [facility] Past Medical History Medical History History of CAD (coronary artery disease) Peripheral vascular disease Chronic back pain GERD (gastroesophageal reflux disease) High cholesterol HTN (hypertension) Immune disorder COPD (chronic obstructive pulmonary disease) Multiple sclerosis Surgical History History of angioplasty History of heart artery stent Social History Social History Household Members: Spouse Housing: House Do you presently have visiting nurse or other home services: No Alcohol intake: never Patient Tobacco Use Status: Current everyday Tobacco user Tobacco use type: Cigarette Cigarettes Per Day: 15 Smoked in Last 30 Days: Yes Use of substances other than those prescribed or required for medical reasons: No Advance Directives: Yes Advance Directives on File: Yes Advance Directives Date on File: 11/22/22 service: No Current occupational status: retired Physical Exam 2 Vital Signs: Vital Signs: Last Vital Signs Temp 98.2 F 07/06/24 18:29 Pulse 74 07/06/24 18:29 Resp 15 07/06/24 22:49 BP 240/95 H 07/06/24 22:47 Pulse Ox 97 07/06/24 18:29 O2 Del Method Room Air 07/06/24 18:29 BMI result Body Mass Index 24.8 Vital signs revealed an elevated blood pressure of 241/79 otherwise unremarkable Exam: General: Awake, alert in no distress Head: Normocephalic, patient has a hematoma to the left occipital area of her scalp. EENT: PERRL, Lids normal, sclera normal, conjunctiva normal, nose normal , ears normal, throat without erythema or exudates Neck: Supple, no adenopathy Lung: breath sounds symmetric, no wheezing, rales or rhonchi Chest: symmetric movement, significant left anterior and left lateral chest wall tenderness Heart: regular rate and rhythm, normal S1, S2 no murmurs or rubs Abdomen: soft, moderate left upper quadrant left lower quadrant tenderness nondistended, normal bowel sounds Back: no vertebral tenderness, no CVAT Extremities: Tenderness the patient on her left lateral hip and pain with flexion of the left hip Neuro: Awake, alert, oriented, normal speech, cranial nerves intact, moves all extremities symmetrically except for left hip/lower leg Psych: Pleasant, cooperative Medications Administered Discontinued Medications Generic Name Dose Route Start Last Admin Trade Name Freq PRN Reason Stop Dose Admin Iohexol 85 ml 07/06/24 21:47 07/06/24 21:47 Iohexol 350 Mg/Ml 100 Ml Infus..Btl IV 07/06/24 21:48 85 ml ONCE ONE Administration Morphine Sulfate 4 mg 07/06/24 18:51 07/06/24 19:18 Morphine Sulfate 4 Mg/Ml Cartridge IVPUSH 07/06/24 18:52 4 mg ONCE STA Administration Protocol Morphine Sulfate 4 mg 07/06/24 20:39 07/06/24 20:44 Morphine Sulfate 4 Mg/Ml Cartridge IVPUSH 07/06/24 20:40 4 mg ONCE STA Administration Protocol Morphine Sulfate 4 mg 07/06/24 22:33 07/06/24 22:49 Morphine Sulfate 4 Mg/Ml Cartridge IVPUSH 07/06/24 22:34 4 mg ONCE STA Administration Protocol Ondansetron HCl 4 mg 07/06/24 18:51 07/06/24 19:18 Ondansetron Hcl 4 Mg/2 Ml Vial IVPUSH 07/06/24 18:52 4 mg ONCE ONE Administration Medical Decision Making Medical Decision Making MDM Narrative: 73-year-old female with a history of diabetes mellitus, hypertension, MS, COPD who continues to smoke, vascular disease, chronic back pain on oxycodone who presents emergency department for evaluation of injuries from a fall going up icy steps. She complains of left-sided headache/chest pain/abdominal pain. Vital signs revealed an elevated blood pressure. Exam revealed a hematoma to the left scalp, tenderness with palpation of the left anterior and left lateral chest, and tenderness with palpation of the left lateral hip with limited range of motion of the left hip secondary to pain. Differential diagnosis: ?Includes but is not limited to skull fracture, intracranial bleed, scalp contusion, neck fracture, neck sprain, left chest wall contusion, left rib fractures, left pneumothorax, splenic/internal injuries, left hip fracture Course: I did order a trauma workup to include labs, urinalysis, CT head, cervical spine, chest/abdomen pelvis with IV contrast. Patient was ordered to get morphine 4 mg IV and Zofran 4 mg IV for her pain. 22:28 My interpretation patient's laboratory evaluation is as follows: WBC elevated 17,500, normal H&H of 15.5 and 46.2. Coags were normal. CMP was unremarkable except for an elevated alk-phos of 153 which is chronic. Urinalysis was normal Patient's pain is controlled with morphine however the pain did wear off and she required 2 more doses of morphine 4 mg IV. 23:51 Patient was unable to ambulate with a walker secondary to severity of her pain. Given the amount of IV morphine that the patient was required, I do not think that she is appropriate for case management placement at this time until she gets better pain control. Therefore I discuss the patient's presentation with the covering hospitalist, and the patient will be admitted for further pain management. Admission/Observation Consideration of admission/observation: Escalation of care including admission/observation considered (Yes) Lab Data MDM Lab Attestation statement: I reviewed the patient's lab results. 07/06/24 19:43 07/06/24 19:43 Labs: Lab Results 07/06/24 07/06/24 Range/Units 19:15 19:43 WBC 17.5 H (4.8-10.8) X10*3/uL RBC 5.12 (4.20-5.50) X10*6/uL Hgb 15.5 D (12.0-16.0) g/dl Hct 46.2 (37.0-47.0) % MCV 90.2 (80.0-98.0) fL MCH 30.3 (27.0-33.0) pg MCHC 33.5 (31.0-35.0) g/dl RDW 13.0 (11.0-16.0) % Plt Count 267 (160-400) X10*3/uL MPV 9.8 (9.4-12.3) fL Immature Gran % (Auto) 0.9 H (0.0-0.4) % Neut % (Auto) 83.0 H (45-73) % Lymph % (Auto) 10.6 L (20-40) % Crawford % (Auto) 5.1 (2-11) % Eos % (Auto) 0.2 (0-4) % Baso % (Auto) 0.2 (0-2) % Lymph # (Auto) 1.9 (1.2-4.9) X10*3/uL Crawford # (Auto) 0.9 (0.1-1.2) X10*3/uL Eos # (Auto) 0.0 (0.0-0.4) X10*3/uL Baso # (Auto) 0.0 (0.0-0.2) X10*3/uL Abs Immat Gran (auto) 0.16 H (0.00-0.03) X10*3/uL Absolute Neuts (auto) 14.5 H (2.0-8.3) x10*3/uL Absolute Nucleated RBC 0.000 (0.0-0.012) X10*3/uL Nucleated RBC % (auto) 0.0 (0.0-0.2) /100WBC PT 10.7 L (10.9-12.4) SEC INR 0.9 (0.9-1.1) APTT 30.6 (26.0-36.8) SEC Sodium 141 (135-145) mmol/L Potassium 4.0 D (3.3-5.1) mmol/L Chloride 105 (96-108) mmol/L Carbon Dioxide 26 (22-29) mmol/L Anion Gap 14 (12-20) BUN 8 L (9-16) mg/dL Creatinine 0.69 (0.5-1.4) mg/dL Estim Creat Clear Calc 61.0 Estimated GFR > 60 Random Glucose 101 (60-115) mg/dL Calcium 9.8 (8.4-10.2) mg/dL Total Bilirubin 0.4 (0.0-1.0) mg/dL AST 22 (5-31) U/L ALT 20 (0-31) U/L Alkaline Phosphatase 153 H (39-117) U/L Troponin I High Sens 2.8 (<3.5-17.0) ng/L Total Protein 7.8 (6.5-8.0) g/dL Albumin 4.4 (3.5-5.0) g/dL Lipase 8 (8-78) U/L Urine Color Yellow Urine Appearance Clear Urine pH 6.0 (5.0-9.0) Ur Specific [place] <= 1.005 (1.005-1.025) Urine Protein Negative (Neg-Trace) mg/dL Urine Glucose (UA) Negative (Negative) mg/dL Urine Ketones Negative (Negative) mg/dL Urine Blood Trace (Negative) Urine Nitrite Negative (Negative) Ur Leukocyte Esterase Negative (Negative) Urine RBC 0-2 (0-2) /HPF Urine WBC 0-5 (0-5) /HPF Ur Squamous Epith Cells 0-2 (0-2) /HPF Urine Bacteria None Seen (None Seen) Hyaline Casts 0-2 (0-2) /LPF Influenza Type A (PCR) NEGATIVE (Negative) Influenza Type B (PCR) NEGATIVE (Negative) RSV RNA Qual (PCR) NEGATIVE (Negative) SARS-CoV-2 RNA (RT-PCR) NEGATIVE (Negative) Independent Historian Clinical information obtained from an independent historian. History obtained from or confirmed by: Other (Daughter who is a nurse here [place] [facility] [place] Chronic Conditions Patient?s care impacted by: Other (COPD) Discharge Plan Discharge Clinical Impression: Fall, Chest wall contusion, Contusion of hip, left, Intractable pain, Essential hypertension Patient Disposition: Admitted As Inpatient Prescriptions: No Action esomeprazole magnesium 40 mg capsule,delayed release(DR/EC) 40 mg PO DAILY@0630 buspirone 10 mg tablet 10 mg PO BID albuterol sulfate 90 mcg/actuation HFA aerosol inhaler 2 puff inhalation Q4H PRN (Reason: wheezing) fluticasone propionate 50 mcg/actuation spray,suspension 1 spray intranasal BID PRN (Reason: allergies) duloxetine 60 mg capsule,delayed release(DR/EC) 60 mg PO DAILY cholecalciferol (vitamin D3) 50 mcg (2,000 unit) capsule 100 mcg PO DAILY tutjshelmx-iyehudpsjdvcr-jhof 50-300-40 mg capsule 1 cap PO DAILY PRN (Reason: Headache) Aimovig Autoinjector 140 mg/mL auto-injector 140 mg subcut Q28D Cuvitru 10 gram/50 mL (20 %) solution 50 ml subcut QWEEK amlodipine 5 mg tablet 10 mg PO DAILY potassium chloride [Klor-Con M20] 20 mEq tablet,ER particles/crystals 20 meq PO DAILY oxycodone-acetaminophen 10-325 mg tablet 1 tab PO Q4-6H PRN (Reason: Pain (Scale Score 4-6)) nitroglycerin 0.4 mg tablet, sublingual 0.4 mg sublingual Q5M PRN (Reason: Chest Pain) Rx Instructions: do not exceed 3 doses/24 hrs hydrochlorothiazide 25 mg tablet 25 mg PO DAILY metoprolol tartrate 25 mg tablet 25 mg PO BID pregabalin 150 mg capsule 150 mg PO TID ocrelizumab 30 mg/mL Solution 600 mg IV [id number] aspirin 81 mg Capsule 81 mg PO DAILY Trelegy Ellipta 100-62.5-25 mcg blister with device 1 ea inhalation DAILY levalbuterol HCl 1.25 mg/0.5 mL solution for nebulization 1.25 mg inhalation TID PRN (Reason: Shortness Of Breath Or Wheezing) clopidogrel 75 mg tablet 75 mg PO DAILY atorvastatin 40 mg Tablet 40 mg PO BEDTIME lidocaine [Lidoderm] 5 % adhesive patch,medicated 3 patch topical DAILY Qty: 30 0RF Rx Instructions: leave on most painful area for up to 12 hrs cefuroxime axetil 500 mg tablet 500 mg PO BID 10 Days Qty: 20 0RF doxycycline hyclate 100 mg tablet 100 mg PO BID Qty: 20 0RF benzonatate 200 mg capsule 200 mg PO TID PRN (Reason: cough) Qty: 30 0RF prednisone 20 mg tablet 40 mg PO DAILY Qty: 10 0RF prednisone 50 mg tablet 50 mg PO DAILY Qty: 5 0RF cefuroxime axetil 500 mg tablet 500 mg PO BID Qty: 10 0RF azithromycin 250 mg tablet 250 mg PO DAILY 4 Days Qty: 4 0RF Rx Instructions: start on day 2 of therapy Print Language: Liberian
[2024-07-06 19:18] VITALS: RESP 17
[2024-07-06] MEDS: Morphine Sulfate 4 MG/ML CARTRIDGE IVPUSH ×3 (19:18→22:49)
[2024-07-06] MEDS: ondansetron HCL 4 MG/2 ML VIAL IVPUSH (19:18)
[2024-07-06 19:27] LABS: Appearance Urine Clear; Color Urine Yellow; Glucose Urine UA Negative (Negative); Leukocyte Esterase Urine Negative (Negative); Nitrite Urine Negative (Negative); Specific Gravity - Urine <= 1.005 (1.005-1.025); UMIC TRIGGER UACC YES; Urine Blood Trace (Negative); Urine Ketones Negative (Negative); Urine Protein Negative (Neg-Trace)
[2024-07-06 19:43] LABS: Hyaline Casts Urine 0-2 /LPF (0-2); RBC Urine 0-2 /HPF (0-2); Squamous Epithelial Cell Urine 0-2 /HPF (0-2); WBC Urine 0-5 /HPF (0-5)
[2024-07-06 19:44] LABS: Bacteria Urine None Seen (None Seen)
[2024-07-06 19:59] LABS: MANUAL DIFF FLAG NO
[2024-07-06 20:00] LABS: Basophils Percent Auto 0.2 % (0-2); Eosinophils Percent Auto 0.2 % (0-4); Hematocrit 46.2 % (37.0-47.0); Hemoglobin 15.5 g/dl (12.0-16.0); Imm Gran Abs Auto 0.16 X10*3/uL (0.00-0.03); Imm Gran Pct Auto 0.9 % (0.0-0.4); Lymphocytes Absolute Auto 1.9 X10*3/uL (1.2-4.9); Lymphocytes Percent Auto 10.6 % (20-40); Mean Corpuscular HGB Conc 33.5 g/dl (31.0-35.0); Mean Corpuscular Hemoglobin 30.3 pg (27.0-33.0); Mean Corpuscular Volume 90.2 fL (80.0-98.0); Mean Platelet Volume 9.8 fL (9.4-12.3); Monocytes Absolute Auto 0.9 X10*3/uL (0.1-1.2); Monocytes Percent Auto 5.1 % (2-11); Neutrophils Absolute Auto 14.5 x10*3/uL (2.0-8.3); Platelet Count 267 X10*3/uL (160-400); Red Blood Count 5.12 X10*6/uL (4.20-5.50); White Blood Count 17.5 X10*3/uL (4.8-10.8)
[2024-07-06 20:03] LABS: Influenza A PCR NEGATIVE (Negative); Influenza B PCR NEGATIVE (Negative); Resp Syncy Virus RNA Qual PCR NEGATIVE (Negative); SARS COV2 PCR INHOUSE NEGATIVE (Negative)
[2024-07-06 20:07] LABS: INTERNATIONAL NORM RATIO 0.9 (0.9-1.1); Prothrombin Time 10.7 SEC (10.9-12.4)
[2024-07-06 20:10] LABS: Partial Thromboplastin Time 30.6 SEC (26.0-36.8)
[2024-07-06 20:24] LABS: Alanine Aminotransferase 20 U/L (0-31); Albumin Level 4.4 g/dL (3.5-5.0); Alkaline Phosphatase 153 U/L (39-117); Anion Gap 14 (12-20); Aspartate Amino Transferase 22 U/L (5-31); Bilirubin Total 0.4 mg/dL (0.0-1.0); Blood Urea Nitrogen 8 mg/dL (9-16); Calcium 9.8 mg/dL (8.4-10.2); Carbon Dioxide 26 mmol/L (22-29); Chloride 105 mmol/L (96-108); Estimated Glomerular Filt Rate > 60; Glucose Random 101 mg/dL (60-115); Lipase 8 U/L (8-78); Sodium 141 mmol/L (135-145); Total Protein 7.8 g/dL (6.5-8.0)
[2024-07-06 20:25] LABS: Troponin-I High Sensitivity 2.8 ng/L (<3.5-17.0)
--- NOTE | 2024-07-06 20:25 | PC.NURSE ---
this rn assumed care of pt, pt a&ox4, respirations even and unlabored, pt on 2L nasal cannula baseline. ems placed 20G in right ac, pt medicated per mar at this time. pt normal sinus on tele. vss.
[2024-07-06 20:44] VITALS: RESP 15
--- NOTE | 2024-07-06 20:56 | PC.NURSE ---
pt reporting increased pain at this time, provider aware, pt medicated per mar.
[2024-07-06] MEDS: iohexoL 350 MG/ML 100 ML INFUS..BTL 85 ML IV (21:47)
[2024-07-06 22:47] VITALS: BP 240/95
[2024-07-06 22:49] VITALS: RESP 15
--- NOTE | 2024-07-06 23:12 | PC.NURSE ---
pt reporting increased 9/10 rib pain, provider aware of blood pressure. pt medicated per mar at this time.
[2024-07-06 23:41] VITALS: BP 216/88
[2024-07-06] MEDS: amLODIPine Besylate 10 MG TABLET PO (23:41)
--- NOTE | 2024-07-06 23:59 | PC.NURSE ---
attempted to get pt out of bed at this time, pt unable to sit up without two person assist, pt unable to stand up due to the pain. provider aware. pt medicated per mar for bp.
[2024-07-07] VITALS (13 sets, daily range): BP systolic 135–197; BP diastolic 70–100; PULSE 89–108; RESP 16–24; TEMP 36.6–37.3; O2SAT 90–94
--- NOTE | 2024-07-07 00:24 | PM.IMHP ---
History of Present Illness Date of Service: 07/07/24 Chief Complaint: Fall This is a 73-year-old female with pertinent history of chronic hypoxemic respiratory failure due to COPD on 2 L baseline supplemental oxygen, mood disorder, hypertension, chronic opioid use, multiple sclerosis, tobacco use disorder who presents to the emergency department for evaluation after a fall. Patient states that she was walking up on icy stairs when she slipped and fell. Patient fell from a distance of 3 steps and hit her left side of the body. Patient unable to get up after the fall and it has been complaining of left hip pain, left chest pain since the fall. Did not lose consciousness prior to the fall. No chest pain or palpitations prior to the fall. No dizziness or lightheadedness prior to the fall. No jerking movement of extremities prior to the fall. No fever, chills, palpitations, shortness of breath, changes in urinary or bowel habits. In the emergency department, imaging without any acute abnormality and patient requiring multiple opioid IV pushes for analgesia Review of Systems Constitutional: Constitutional: Reports no additional constitutional complaints Cardiovascular: Cardiovascular: Reports no additional cardiovascular complaints Respiratory: Respiratory: Reports no additional respiratory complaints Gastrointestinal: Gastrointestinal: Reports no additional gastrointestinal complaints Genitourinary: Genitourinary: Reports no additional female genitourinary complaints [facility] Medical History History of CAD (coronary artery disease) Peripheral vascular disease Chronic back pain GERD (gastroesophageal reflux disease) High cholesterol HTN (hypertension) Immune disorder COPD (chronic obstructive pulmonary disease) Multiple sclerosis Pertinent family history: No family history of early CAD Surgical History History of angioplasty History of heart artery stent Social History Household Members: Spouse Housing: House Do you presently have visiting nurse or other home services: No Alcohol intake: never Patient Tobacco Use Status: Current everyday Tobacco user Tobacco use type: Cigarette Cigarettes Per Day: 15 Smoked in Last 30 Days: Yes Use of substances other than those prescribed or required for medical reasons: No Advance Directives: Yes Advance Directives on File: Yes Advance Directives Date on File: 11/22/22 service: No Current occupational status: retired [employer] Allergies Allergy/AdvReac Type Severity Reaction Status Date / Time codeine [CODEINE] Allergy Unknown Hives Verified 07/06/24 18:37 Home Medications ?Medication ?Instructions ?Recorded ?Confirmed ?Last Taken ?Type albuterol sulfate 90 mcg/actuation 2 puff inhalation Q4H PRN wheezing 11/15/22 08/28/23 Unknown History aerosol inhaler amlodipine 5 mg tablet 10 mg PO DAILY 11/15/22 11/15/22 2 Days Ago History ~11/13/22 aspirin 81 mg capsule 81 mg PO DAILY 11/15/22 08/28/23 2 Days Ago History ~11/13/22 buspirone 10 mg tablet 10 mg PO BID 11/15/22 08/28/23 2 Days Ago History ~11/13/22 lxyrlbhkwe-uefhupjbuytjs-uyrsqecw 1 cap PO DAILY PRN Headache 11/15/22 08/28/23 Unknown History 50 mg-300 mg-40 mg capsule cholecalciferol (vitamin D3) 50 100 mcg PO DAILY 11/15/22 08/28/23 2 Days Ago History mcg (2,000 unit) capsule ~11/13/22 clopidogrel 75 mg tablet 75 mg PO DAILY 11/15/22 08/28/23 Unknown History duloxetine 60 mg capsule,delayed 60 mg PO DAILY 11/15/22 08/28/23 2 Days Ago History release ~11/13/22 erenumab-aooe 140 mg/mL 140 mg subcut Q28D 11/15/22 08/28/23 3 Weeks Ago History subcutaneous auto-injector ~10/25/22 (Aimovig Autoinjector) esomeprazole magnesium 40 mg 40 mg PO DAILY@0630 11/15/22 08/28/23 2 Days Ago History capsule,delayed release ~11/13/22 fluticasone fur. 100 mcg-umeclid 1 ea inhalation DAILY 11/15/22 08/28/23 2 Days Ago History 62.5 mcg-vilant 25 mcg ~11/13/22 inhalat.powder (Trelegy Ellipta) fluticasone propionate 50 1 spray intranasal BID PRN 11/15/22 08/28/23 2 Days Ago History mcg/actuation nasal allergies ~11/13/22 spray,suspension hydrochlorothiazide 25 mg tablet 25 mg PO DAILY 11/15/22 08/28/23 2 Days Ago History ~11/13/22 immun glob G 10 50 ml subcut QWEEK 11/15/22 08/28/23 2 Weeks Ago History gram/50mL(20%)-gly-IgA over 50 ~11/01/22 mcg/mL subcutaneous suzanna (Cuvitru) levalbuterol HCl 1.25 mg/0.5 mL 1.25 mg inhalation TID PRN 11/15/22 08/28/23 Unknown History solution for nebulization Shortness Of Breath Or Wheezing metoprolol tartrate 25 mg tablet 25 mg PO BID 11/15/22 08/28/23 2 Days Ago History ~11/13/22 nitroglycerin 0.4 mg sublingual 0.4 mg sublingual Q5M PRN Chest 11/15/22 08/28/23 2 Days Ago History tablet Pain ~11/13/22 ocrelizumab 30 mg/mL intravenous 600 mg IV [id number] 11/15/22 08/28/23 6 Months Ago History solution ~05/17/22 oxycodone-acetaminophen 10 mg-325 1 tab PO Q4-6H PRN Pain (Scale 11/15/22 08/27/23 2 Days Ago History mg tablet Score 4-6) ~11/13/22 potassium chloride 20 mEq 20 meq PO DAILY 11/15/22 08/28/23 2 Days Ago History tablet,extended ~11/13/22 release(part/cryst) (Klor-Con M) pregabalin 150 mg capsule 150 mg PO TID 11/15/22 08/28/23 2 Days Ago History ~11/13/22 atorvastatin 40 mg tablet 40 mg PO BEDTIME 08/28/23 08/28/23 Unknown History Physical Exam Vital Signs and Narrative: Vital Signs: Last Vital Signs Temp 98.2 F 07/06/24 18:29 Pulse 74 07/06/24 18:29 Resp 15 07/06/24 22:49 BP 216/88 H 07/06/24 23:41 Pulse Ox 97 07/06/24 18:29 O2 Del Method Room Air 07/06/24 18:29 BMI result Body Mass Index 24.8 Middle-aged female lying in bed in mild distress on supplemental oxygen Neck supple, no JVD, left scalp hematoma Regular rate and rhythm, S1-S2 heard No wheezing, chest tenderness present Abdomen soft nontender, no guarding, no rigidity Patient is awake, alert and oriented to self, place, time and person ; no focal motor deficit Psych: Normal mood Tenderness on her left lateral hip and pain with lower extremity movement Results Labs 07/06/24 19:43 07/06/24 19:43 Labs: Laboratory Results - last 24 hr 07/06/24 07/06/24 19:15 19:43 MCV 90.2 MCH 30.3 MCHC 33.5 RDW 13.0 Plt Count 267 MPV 9.8 Immature Gran % (Auto) 0.9 H Neut % (Auto) 83.0 H Lymph % (Auto) 10.6 L [place] % (Auto) 5.1 Eos % (Auto) 0.2 Baso % (Auto) 0.2 Lymph # (Auto) 1.9 [place] # (Auto) 0.9 Eos # (Auto) 0.0 Baso # (Auto) 0.0 Abs Immat Gran (auto) 0.16 H Absolute Neuts (auto) 14.5 H Absolute Nucleated RBC 0.000 Nucleated RBC % (auto) 0.0 PT 10.7 L INR 0.9 APTT 30.6 Anion Gap 14 Estim Creat Clear Calc 61.0 Estimated GFR > 60 Random Glucose 101 Calcium 9.8 Total Bilirubin 0.4 AST 22 ALT 20 Alkaline Phosphatase 153 H Troponin I High Sens 2.8 Total Protein 7.8 Albumin 4.4 Lipase 8 Urine Color Yellow Urine Appearance Clear Urine pH 6.0 Ur Specific [place] <= 1.005 Urine Protein Negative Urine Glucose (UA) Negative Urine Ketones Negative Urine Blood Trace Urine Nitrite Negative Ur Leukocyte Esterase Negative Urine RBC 0-2 Urine WBC 0-5 Ur Squamous Epith Cells 0-2 Urine Bacteria None Seen Hyaline Casts 0-2 Influenza Type A (PCR) NEGATIVE Influenza Type B (PCR) NEGATIVE RSV RNA Qual (PCR) NEGATIVE SARS-CoV-2 RNA (RT-PCR) NEGATIVE Assessment and Plan (1) Intractable pain: Status: Acute (2) Contusion of hip, left: Status: Acute (3) Chest wall contusion: Qualifiers: Encounter type: initial encounter Laterality: left Qualified Code(s): S20.212A - Contusion of left front wall of thorax, initial encounter Status: Acute Plan This is a 73-year-old female with pertinent history of chronic hypoxemic respiratory failure due to COPD on 2 L baseline supplemental oxygen, mood disorder, hypertension, chronic opioid use, multiple sclerosis, tobacco use disorder who presents to the emergency department for evaluation after a fall. #. Intractable left sided chest pain and hip pain due to mechanical fall: Will admit patient for observation with scheduled p.o. opioids and p.r.n. IV opioids for analgesia. Consulted physical therapy to evaluate and treat #. Leukocytosis, reactive #. PAD/CAD: On dual antiplatelet therapy and statin. Does have atherosclerotic stenosis of the left subclavian, left axillary, right common carotid, left superficial femoral artery. Outpatient vascular surgery follow-up. 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 #. Mood disorder: Continue home mood stabilizers #. Hypertension: Continue home antihypertensives #. Chronic opioid use: Opioids as above #. Chronic hypoxemic respiratory failure due to COPD: Continue baseline supplemental oxygen. No exacerbation during admission #. Tobacco use disorder: Nicotine patch while in the hospital Med rec pending DVT prophylaxis: Mechanical Full code. Discussed with patient at bedside Quality Stroke Does the patient have a stroke diagnosis?: No VTE Prior VTE?: No VTE Risk Level:: Medical - moderate - high VTE Device Contraindication: N/A - Device Ordered VTE Drug Contraindication: Treatment Not Indicated
[2024-07-07] MEDS: oxyCODONE HCl Immed Release 5 MG TABLET PO (00:37)
[2024-07-07] MEDS: Nicotine 14 MG PATCH.TD24 TRANSDERMA ×2 (01:02→08:03)
[2024-07-07] MEDS: Morphine Sulfate Immed Release 15 MG TABLET PO ×6 (01:02→19:58)
[2024-07-07] MEDS: Labetalol HCL 100 MG/20 ML VIAL 20 MG IVPUSH (01:03)
--- NOTE | 2024-07-07 01:05 | PC.NURSE ---
provider aware of bp, pt medicated per mar at this time for bp/pain.
--- NOTE | 2024-07-07 01:49 | PC.NURSE ---
pt placed on hospital bed at this time for comfort, purewick in place.
[2024-07-07] MEDS: Morphine Sulfate 4 MG/ML CARTRIDGE IVPUSH ×4 (05:57→23:13)
[2024-07-07 07:24] LABS: MANUAL DIFF FLAG NO
[2024-07-07 07:32] LABS: Basophils Percent Auto 0.3 % (0-2); Eosinophils Percent Auto 0.2 % (0-4); Hemoglobin 16.1 g/dl (12.0-16.0); Imm Gran Abs Auto 0.08 X10*3/uL (0.00-0.03); Imm Gran Pct Auto 0.6 % (0.0-0.4); Lymphocytes Absolute Auto 1.6 X10*3/uL (1.2-4.9); Lymphocytes Percent Auto 11.3 % (20-40); Mean Corpuscular HGB Conc 32.9 g/dl (31.0-35.0); Mean Corpuscular Hemoglobin 30.1 pg (27.0-33.0); Mean Corpuscular Volume 91.6 fL (80.0-98.0); Mean Platelet Volume 10.6 fL (9.4-12.3); Monocytes Absolute Auto 0.7 X10*3/uL (0.1-1.2); Monocytes Percent Auto 4.6 % (2-11); Neutrophils Absolute Auto 11.9 x10*3/uL (2.0-8.3); Platelet Count 251 X10*3/uL (160-400); Red Blood Count 5.35 X10*6/uL (4.20-5.50); Red Cell Distribution Width 13.1 % (11.0-16.0); White Blood Count 14.3 X10*3/uL (4.8-10.8)
[2024-07-07 07:46] LABS: Anion Gap 17 (12-20); Blood Urea Nitrogen 8 mg/dL (9-16); Calcium 9.6 mg/dL (8.4-10.2); Carbon Dioxide 27 mmol/L (22-29); Chloride 101 mmol/L (96-108); Estimated Glomerular Filt Rate > 60; Glucose Random 138 mg/dL (60-115); Potassium 4.6 mmol/L (3.3-5.1); Sodium 140 mmol/L (135-145)
[2024-07-07] MEDS: 0.9 % Sodium Chloride Flush 3 ML SYRINGE IVFLUSH ×2 (08:09→23:17)
--- NOTE | 2024-07-07 09:04 | HO.PM.IMPN ---
Subjective Subjective Date of Service: 07/07/24 Interval History: pain better with pain meds Physical Exam Vital Signs: Vital Signs: Last Vital Signs Temp 98.1 F 07/07/24 07:56 Pulse 104 H 07/07/24 07:56 Resp 16 07/07/24 07:56 BP 161/76 H 07/07/24 07:56 Pulse Ox 90 L 07/07/24 07:56 O2 Del Method Nasal Cannula 07/07/24 07:56 O2 Flow Rate 3 07/07/24 07:56 BMI result Body Mass Index 24.8 Exam: General: Awake, alert in no distress Head: Normocephalic, patient has a hematoma to the left occipital area of her scalp. EENT: PERRL, Lids normal, sclera normal, conjunctiva normal, nose normal , ears normal, throat without erythema or exudates Neck: Supple, no adenopathy Lung: breath sounds symmetric, no wheezing, rales or rhonchi Chest: symmetric movement, significant left anterior and left lateral chest wall tenderness Heart: regular rate and rhythm, normal S1, S2 no murmurs or rubs Abdomen: soft, moderate left upper quadrant left lower quadrant tenderness nondistended, normal bowel sounds Back: no vertebral tenderness, no CVAT Extremities: Tenderness the patient on her left lateral hip and pain with flexion of the left hip Neuro: Awake, alert, oriented, normal speech, cranial nerves intact, moves all extremities symmetrically except for left hip/lower leg Psych: Pleasant, cooperative Objective Data Active Medications Acetaminophen (Acetaminophen 325 Mg Tablet) 650 mg PO Q6H PRN PRN Reason: Pain, Mild 1-3,fever,headache Calcium Carbonate (Calcium Carbonate 750 Mg Tab.Chew) 750 mg PO Q4H PRN PRN Reason: Heartburn Magnesium Hydroxide (Milk Of Magnesia 30 Ml Oral.Susp) 30 ml PO DAILY PRN PRN Reason: Constipation Melatonin (Melatonin 3 Mg Tablet) 6 mg PO BEDTIME PRN PRN Reason: Insomnia Morphine Sulfate (Morphine Sulfate 4 Mg/Ml Cartridge) 4 mg IVPUSH Q4H PRN; Protocol PRN Reason: Pain, Severe (Pain Scale 7-10) Last Admin: 07/07/24 05:57 Dose: 4 mg Documented By: BRY Morphine Sulfate (Morphine Sulfate Immed Release 15 Mg Tablet) 15 mg PO Q4H [facility] Last Admin: 07/07/24 08:02 Dose: 15 mg Documented By: ATILIO Nicotine (Nicotine 14 Mg Patch.Td24) 14 mg TRANSDERMA DAILY [facility] Last Admin: 07/07/24 08:03 Dose: 14 mg Documented By: ATILIO Ondansetron HCl (Ondansetron Hcl 4 Mg/2 Ml Vial) 4 mg IVPUSH Q8H PRN PRN Reason: Nausea and Vomiting Sodium Chloride (0.9 % Sodium Chloride Flush 3 Ml Syringe) 3 ml IVFLUSH QSHIFT [facility] Last Admin: 07/07/24 08:09 Dose: 3 ml Documented By: ATILIO Labs 07/07/24 05:47 07/07/24 05:47 Labs: Laboratory Results - last 24 hr 07/06/24 07/06/24 07/07/24 19:15 19:43 05:47 MCV 90.2 91.6 MCH 30.3 30.1 MCHC 33.5 32.9 RDW 13.0 13.1 Plt Count 267 251 MPV 9.8 10.6 Immature Gran % (Auto) 0.9 H 0.6 H Neut % (Auto) 83.0 H 83.0 H Lymph % (Auto) 10.6 L 11.3 L [place] % (Auto) 5.1 4.6 Eos % (Auto) 0.2 0.2 Baso % (Auto) 0.2 0.3 Lymph # (Auto) 1.9 1.6 [place] # (Auto) 0.9 0.7 Eos # (Auto) 0.0 0.0 Baso # (Auto) 0.0 0.0 Abs Immat Gran (auto) 0.16 H 0.08 H Absolute Neuts (auto) 14.5 H 11.9 H Absolute Nucleated RBC 0.000 0.000 Nucleated RBC % (auto) 0.0 0.0 PT 10.7 L INR 0.9 APTT 30.6 Anion Gap 14 17 Estim Creat Clear Calc 61.0 57.0 Estimated GFR > 60 > 60 Random Glucose 101 138 H Calcium 9.8 9.6 Total Bilirubin 0.4 AST 22 ALT 20 Alkaline Phosphatase 153 H Troponin I High Sens 2.8 Total Protein 7.8 Albumin 4.4 Lipase 8 Urine Color Yellow Urine Appearance Clear Urine pH 6.0 Ur Specific [place] <= 1.005 Urine Protein Negative Urine Glucose (UA) Negative Urine Ketones Negative Urine Blood Trace Urine Nitrite Negative Ur Leukocyte Esterase Negative Urine RBC 0-2 Urine WBC 0-5 Ur Squamous Epith Cells 0-2 Urine Bacteria None Seen Hyaline Casts 0-2 Influenza Type A (PCR) NEGATIVE Influenza Type B (PCR) NEGATIVE RSV RNA Qual (PCR) NEGATIVE SARS-CoV-2 RNA (RT-PCR) NEGATIVE Assessment and Plan (1) Chest wall contusion: Status: Acute Plan 73F PMH chronic hypoxemic respiratory failure due to COPD on 2 L baseline supplemental oxygen, mood disorder, hypertension, chronic opioid use, multiple sclerosis, tobacco use disorder presented to the emergency department for evaluation after a fall Intractable left-sided chest pain and hip pain due to mechanical fall No fractures on imaging, pain control, PT eval Peripheral vascular disease, coronary artery disease Dual antiplatelet, statin Mood disorder Bupropion, buspirone Sertraline Hypertension Metoprolol Chronic hypoxic respiratory failure due to COPD Stable DVT prophylaxis-mechanical due to recent trauma Full code reason for continued hospitalization:pain control, pt Quality Stroke Does the patient have a stroke diagnosis?: No VTE Prior VTE?: No VTE Risk Level:: Medical - moderate - high VTE Device Contraindication: N/A - Device Ordered VTE Drug Contraindication: Treatment Not Indicated
[2024-07-07] MEDS: Acetaminophen 325 MG TABLET 650 MG PO (09:41)
--- NOTE | 2024-07-07 09:57 | MHC.CM.PN ---
Addendum entered by Patti Walter 07/07/24 14:39: PT IS NOW I/P STATUS. IMM DELIVERED Original Note: [facility] DELIVERED PT LIVES WITH SPOUSE AND HAS FAMILY SUPPORT. NO CURRENT SERVICES IN THE HOME. 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 PT IS ON HOME 02 CONTINUOUS AT 2 LITERS , VENDOR IS [employer]. +HCP ON FILE AND VERIFIED. PCP DR.LANCE LIN. DP: PT WILL HAVE P.T. EVAL TO DETERMINE NEEDS THOUGH PT IS DECLINING REHAB. PT WILL ACCEPT HOME SERVICES AND WOULD LIKE [facility]. REFERRAL SENT. FAMILY WILL TRANSPORT. CM WILL CONTINUE TO FOLLOW FOR ANY CHANGE TO DC PLAN/NEEDS.
--- NOTE | 2024-07-07 11:03 | PHA.MEDREC ---
Addendum entered by Kenya Navas RPh 07/07/24 11:44: reviewed by [facility], left sertraline on as patient filled it 5 days ago. Original Note: Pharmacy Consult ? Medication Reconciliation Pharmacy has completed the medication reconciliation. Spoke with patient and she confirmed her medicaitons with me. She cofnirmed she Aimovig injection once every 28 days and states she just got that within the last week. She states she is taking the jnximmhhes-mtapqeylwgxgp-gxzh tablet as needed for headaches. She states she is getting a Cuvitru 10 gram/50 mL (20 %) injection once a week on Mondays and she states she got it 2 Mondays ago. She states she has Hydrochlorothiazide 25mg tabs at home but states she has not taken them for a while , I kept that off the med rec since there are no claims for that medication. She states she is taking the ocrelizumab 30 mg/mL once every 6 months and states she was due to get that tomorrow but now since she is here she is not sure the next time she is getting it. She confirmed she has the oxycodone-acetaminophen 10-325 mg at home and states she is taking 1 every 4 hours as needed for pain, she did confirm the Dr allows 1 tab every 4-6 hours as needed but she has been taking 1 every 4 hours as needed. She was not so sure if she was still taking the Sertraline 50mg tab and when I asked if she was taking a Zoloft medication or something for her mood or anything she was not so sure about that medication, looking in claims that was last filled 04/06 for 90 days, i took that off the med rec. She states she took her medications yesterday morning.
[2024-07-07] MEDS: Doxycycline Monohydrate 100 MG CAPSULE PO ×2 (12:30→19:58)
[2024-07-07] MEDS: predniSONE 20 MG TABLET 40 MG PO (12:30)
[2024-07-07] MEDS: Metoprolol Tartrate 25 MG TABLET PO ×2 (12:51→19:57)
--- NOTE | 2024-07-07 14:52 | PC.NURSE ---
Addendum entered by Dayna De Jesus RN 07/07/24 18:50: Pt straight cathed for 400ML, concentrated yellow urine using sterile technique at approximately 1500, pt tolerated well, UA sent to lab. Original Note: Pt voided 100ml total for this shift. Pt has good PO fluid intake, bladder scanned for 343ML. Pt c/o pelvic pain, has no urge to void but states she hasn't moved bowels in a few days . Pt c/o feeling unwell and states I feel like I have a fever , oral temp 99.2. MD Castellanos made aware, IVFs ordered slow rate, repeat UA and CXR ordered. Per straight cath for specimen as pt has no urge to void.
[2024-07-07] MEDS: 0.9 % Sodium Chloride 1,000 ML 50 ML IVCONT (15:35)
[2024-07-07 15:38] LABS: Appearance Urine Clear; Color Urine Yellow; Glucose Urine UA Negative (Negative); Leukocyte Esterase Urine Negative (Negative); Nitrite Urine Negative (Negative); Specific Gravity - Urine >= 1.030 (1.005-1.025); UMIC TRIGGER UACC YES; Urine Blood Negative (Negative); Urine Ketones Negative (Negative); Urine Protein 30 (1+) mg/dL (Neg-Trace)
[2024-07-07 15:41] LABS: Bacteria Urine None Seen (None Seen); Hyaline Casts Urine 0-2 /LPF (0-2); RBC Urine 0-2 /HPF (0-2); Squamous Epithelial Cell Urine 0-2 /HPF (0-2); WBC Urine 0-5 /HPF (0-5)
[2024-07-07] MEDS: Atorvastatin Calcium 80 MG TABLET PO (19:58)
[2024-07-07] MEDS: busPIRone HCl 10 MG TABLET PO (19:58)
[2024-07-08] VITALS (11 sets, daily range): BP systolic 131–148; BP diastolic 60–77; PULSE 82–100; RESP 16–24; TEMP 36.6–37.2; O2SAT 92–93
[2024-07-08] MEDS: Morphine Sulfate Immed Release 15 MG TABLET PO ×5 (02:06→20:57)
[2024-07-08] MEDS: ondansetron HCL 4 MG/2 ML VIAL IVPUSH (02:09)
[2024-07-08] MEDS: Morphine Sulfate 4 MG/ML CARTRIDGE IVPUSH ×2 (03:15→22:36)
[2024-07-08] MEDS: Sertraline HCL 50 MG TABLET PO (08:53)
[2024-07-08] MEDS: Aspirin Enteric Coated 81 MG TABLET.DR PO (08:53)
[2024-07-08] MEDS: Clopidogrel Bisulfate 75 MG TABLET PO (08:53)
[2024-07-08] MEDS: Cholecalciferol (Vitamin D3) 25 MCG TABLET 100 MCG PO (08:53)
[2024-07-08] MEDS: Doxycycline Monohydrate 100 MG CAPSULE PO ×2 (08:53→20:56)
[2024-07-08] MEDS: busPIRone HCl 10 MG TABLET PO ×2 (08:53→20:57)
[2024-07-08] MEDS: Nicotine 14 MG PATCH.TD24 TRANSDERMA (08:54)
[2024-07-08] MEDS: Metoprolol Tartrate 25 MG TABLET PO ×2 (08:54→20:56)
[2024-07-08] MEDS: buPROPion HCl XL 300 MG TAB.ER.24H PO (08:54)
[2024-07-08] MEDS: Roflumilast 500 MCG TABLET PO (08:54)
[2024-07-08] MEDS: predniSONE 20 MG TABLET 40 MG PO (08:54)
--- NOTE | 2024-07-08 10:37 | P.PNIM_ITS ---
Subjective Subjective Date of Service: 07/08/24 Interval History: still with left sided chest pain Physical Exam 2 Vital Signs: Vital Signs: Last Vital Signs Temp 98.9 F 07/08/24 07:00 Pulse 83 07/08/24 07:00 Resp 16 07/08/24 07:00 BP 138/67 07/08/24 07:00 Pulse Ox 92 07/08/24 07:00 O2 Del Method Nasal Cannula 07/08/24 07:00 O2 Flow Rate 2 07/08/24 07:00 BMI result Body Mass Index 24.8 Objective Data Active Medications Acetaminophen (Acetaminophen 325 Mg Tablet) 650 mg PO Q6H PRN PRN Reason: Pain, Mild 1-3,fever,headache Last Admin: 07/07/24 09:41 Dose: 650 mg Documented By: ATILIO Acetaminophen/Butalbital/Caffeine (Butalb/Acetamin/Caff 50/325/40 Tablet) 1 tab PO DAILY PRN PRN Reason: Headache Albuterol/Ipratropium (Albuterol/Iprat 2.5/0.5mg 3 Ml Ampul.Neb) 3 ml INHALE RQ4H WHILE AWAKE PRN PRN Reason: sob Aspirin (Aspirin Enteric Coated 81 Mg Tablet.Dr) 81 mg PO DAILY [facility] Last Admin: 07/08/24 08:53 Dose: 81 mg Documented By: JEANNINE Atorvastatin Calcium (Atorvastatin Calcium 80 Mg Tablet) 80 mg PO BEDTIME [facility] Last Admin: 07/07/24 19:58 Dose: 80 mg Documented By: ROLAND Bupropion HCl (Bupropion Hcl Xl 300 Mg Tab.Er.24h) 300 mg PO DAILY [facility] Last Admin: 07/08/24 08:54 Dose: 300 mg Documented By: JEANNINE Buspirone HCl (Buspirone Hcl 10 Mg Tablet) 10 mg PO BID [facility] Last Admin: 07/08/24 08:53 Dose: 10 mg Documented By: JEANNINE Calcium Carbonate (Calcium Carbonate 750 Mg Tab.Chew) 750 mg PO Q4H PRN PRN Reason: Heartburn Clopidogrel Bisulfate (Clopidogrel Bisulfate 75 Mg Tablet) 75 mg PO DAILY [facility] Last Admin: 07/08/24 08:53 Dose: 75 mg Documented By: JEANNINE Cyclobenzaprine HCl (Cyclobenzaprine Hcl 10 Mg Tablet) 10 mg PO DAILY PRN PRN Reason: muscle spasms Doxycycline Monohydrate (Doxycycline Monohydrate 100 Mg Capsule) 100 mg PO BID [facility] Last Admin: 07/08/24 08:53 Dose: 100 mg Documented By: JEANNINE Fluticasone Propionate (Fluticasone Propionate Nasal 16 Gm [place]) 1 spray NOSTRIL-B BID PRN PRN Reason: allergies Fluticasone/Umeclidinium/Vilanterol (Fluticasone/Umeclidinium/Vilanterol 100/62.5/25 Blst.W.Dev) 1 puff INHALE RDAILY [facility] Last Admin: 07/08/24 07:45 Dose: Not Given Documented By: KENNETH Non-Admin Reason: pharmacy called for med Sodium Chloride (Ns) 1,000 mls @ 50 mls/hr IVCONT .Q20H [facility] Last Admin: 07/07/24 15:35 Dose: 50 mls/hr Documented By: ATILIO Levalbuterol HCl (Levalbuterol Hcl 1.25 Mg/3 Ml Vial.Neb) 1.25 mg INHALE TID PRN PRN Reason: Shortness Of Breath Or Wheezing Magnesium Hydroxide (Milk Of Magnesia 30 Ml Oral.Susp) 30 ml PO DAILY PRN PRN Reason: Constipation Melatonin (Melatonin 3 Mg Tablet) 6 mg PO BEDTIME PRN PRN Reason: Insomnia Metoprolol Tartrate (Metoprolol Tartrate 25 Mg Tablet) 25 mg PO BID [facility]; Protocol Last Admin: 07/08/24 08:54 Dose: 25 mg Documented By: JEANNINE Morphine Sulfate (Morphine Sulfate 4 Mg/Ml Cartridge) 4 mg IVPUSH Q4H PRN; Protocol PRN Reason: Pain, Severe (Pain Scale 7-10) Last Admin: 07/08/24 03:15 Dose: 4 mg Documented By: ROLAND Morphine Sulfate (Morphine Sulfate Immed Release 15 Mg Tablet) 15 mg PO Q4H [facility] Last Admin: 07/08/24 08:53 Dose: 15 mg Documented By: JEANNINE Nicotine (Nicotine 14 Mg Patch.Td24) 14 mg TRANSDERMA DAILY [facility] Last Admin: 07/08/24 08:54 Dose: 14 mg Documented By: JEANNINE Ondansetron HCl (Ondansetron Hcl 4 Mg/2 Ml Vial) 4 mg IVPUSH Q8H PRN PRN Reason: Nausea and Vomiting Last Admin: 07/08/24 02:09 Dose: 4 mg Documented By: ROLAND Prednisone (Prednisone 20 Mg Tablet) 40 mg PO DAILY [facility] Last Admin: 07/08/24 08:54 Dose: 40 mg Documented By: JEANNINE Roflumilast (Roflumilast 500 Mcg Tablet) 500 mcg PO DAILY [facility] Last Admin: 07/08/24 08:54 Dose: 500 mcg Documented By: JEANNINE Sertraline HCl (Sertraline Hcl 50 Mg Tablet) 50 mg PO DAILY [facility] Last Admin: 07/08/24 08:53 Dose: 50 mg Documented By: JEANNINE Sodium Chloride (0.9 % Sodium Chloride Flush 3 Ml Syringe) 3 ml IVFLUSH QSHIFT [facility] Last Admin: 07/08/24 08:55 Dose: Not Given Documented By: JEANNINE Non-Admin Reason: IV Running Vitamin D (Cholecalciferol (Vitamin D3) 25 Mcg Tablet) 100 mcg PO DAILY [facility] Last Admin: 07/08/24 08:53 Dose: 100 mcg Documented By: JEANNINE Labs 07/07/24 05:47 07/07/24 05:47 Labs: Laboratory Results - last 24 hr 07/07/24 15:15 Urine Color Yellow Urine Appearance Clear Urine pH 6.0 Ur Specific [place] >= 1.030 H Urine Protein 30 (1+) H Urine Glucose (UA) Negative Urine Ketones Negative Urine Blood Negative Urine Nitrite Negative Ur Leukocyte Esterase Negative Urine RBC 0-2 Urine WBC 0-5 Ur Squamous Epith Cells 0-2 Urine Bacteria None Seen Hyaline Casts 0-2 Assessment and Plan (1) Chest wall contusion: Status: Acute Plan 73F PMH chronic hypoxemic respiratory failure due to COPD on 2 L baseline supplemental oxygen, mood disorder, hypertension, chronic opioid use, multiple sclerosis, tobacco use disorder presented to the emergency department for evaluation after a fall Intractable left-sided chest pain and hip pain due to mechanical fall No fractures on imaging, pain control, PT eval Peripheral vascular disease, coronary artery disease Dual antiplatelet, statin Mood disorder Bupropion, buspirone Sertraline Hypertension Metoprolol acute on Chronic hypoxic respiratory failure due to COPD with acute decompensation prednisone, nebs, doxy DVT prophylaxis-mechanical due to recent trauma Full code reason for continued hospitalization:pain control, hypoxia Quality Stroke Does the patient have a stroke diagnosis?: No VTE Prior VTE?: No VTE Risk Level:: Medical - moderate - high VTE Device Contraindication: N/A - Device Ordered VTE Drug Contraindication: Treatment Not Indicated
[2024-07-08] MEDS: 0.9 % Sodium Chloride 1,000 ML 50 ML IVCONT (11:11)
--- NOTE | 2024-07-08 13:29 | MHC.CM.PN ---
EMR REVIEWED AND PER MD ROUNDS, PT IS NOT MEDICALLY CLEARED FOR DC. PT CONTINUES TO HAVE INCREASED PAIN FROM CHEST CONTUSION. PT ALSO CONTINUES TO DECLINE STR ( REC. BY P.T.) AND WOULD LIKE TO GO HOME WITH IN HOME SERVICES WHEN MEDICALLY READY. CM WILL CONTINUE TO FOLLOW FOR ANY CHANGE TO DC PLAN.
[2024-07-08] MEDS: 0.9 % Sodium Chloride Flush 3 ML SYRINGE IVFLUSH ×2 (17:10→20:57)
[2024-07-08] MEDS: Atorvastatin Calcium 80 MG TABLET PO (20:57)
[2024-07-08] MEDS: Albuterol/Iprat 2.5/0.5MG 3 ML AMPUL.NEB INHALE (21:37)
[2024-07-09] VITALS (10 sets, daily range): BP systolic 129–196; BP diastolic 68–84; PULSE 78–99; RESP 18–20; TEMP 36.1–37.3; O2SAT 92–94
[2024-07-09] MEDS: Morphine Sulfate Immed Release 15 MG TABLET PO ×5 (00:59→16:52)
[2024-07-09] MEDS: Acetaminophen 325 MG TABLET 650 MG PO (03:10)
[2024-07-09] MEDS: Morphine Sulfate 4 MG/ML CARTRIDGE IVPUSH (03:11)
[2024-07-09 07:14] LABS: Hematocrit 37.7 % (37.0-47.0); Mean Corpuscular HGB Conc 34.5 g/dl (31.0-35.0); Mean Corpuscular Hemoglobin 31.4 pg (27.0-33.0); Mean Corpuscular Volume 91.1 fL (80.0-98.0); Platelet Count 210 X10*3/uL (160-400); Red Blood Count 4.14 X10*6/uL (4.20-5.50); Red Cell Distribution Width 12.9 % (11.0-16.0); White Blood Count 20.1 X10*3/uL (4.8-10.8)
[2024-07-09 07:16] LABS: Anion Gap 12 (12-20); Blood Urea Nitrogen 10 mg/dL (9-16); Calcium 9.1 mg/dL (8.4-10.2); Carbon Dioxide 26 mmol/L (22-29); Chloride 103 mmol/L (96-108); Creatinine Clr Calc Pharmacy 69.1; Estimated Glomerular Filt Rate > 60; Glucose Random 146 mg/dL (60-115); Potassium 3.9 mmol/L (3.3-5.1); Sodium 137 mmol/L (135-145)
[2024-07-09] MEDS: 0.9 % Sodium Chloride 1,000 ML 50 ML IVCONT (07:28)
[2024-07-09] MEDS: Fluticasone/Umeclidinium/Vilanterol 100/62.5/25 BLST.W.DEV 1 PUFF INHALE (07:52)
[2024-07-09] MEDS: Clopidogrel Bisulfate 75 MG TABLET PO (08:22)
[2024-07-09] MEDS: Cholecalciferol (Vitamin D3) 25 MCG TABLET 100 MCG PO (08:23)
[2024-07-09] MEDS: busPIRone HCl 10 MG TABLET PO ×2 (08:23→21:16)
[2024-07-09] MEDS: predniSONE 20 MG TABLET 40 MG PO (08:24)
[2024-07-09] MEDS: Roflumilast 500 MCG TABLET PO (08:24)
[2024-07-09] MEDS: Sertraline HCL 50 MG TABLET PO (08:24)
[2024-07-09] MEDS: buPROPion HCl XL 300 MG TAB.ER.24H PO (08:25)
[2024-07-09] MEDS: Doxycycline Monohydrate 100 MG CAPSULE PO ×2 (08:25→21:16)
[2024-07-09] MEDS: Nicotine 14 MG PATCH.TD24 TRANSDERMA (08:26)
[2024-07-09] MEDS: Aspirin Enteric Coated 81 MG TABLET.DR PO (08:26)
[2024-07-09] MEDS: Metoprolol Tartrate 25 MG TABLET PO ×2 (08:26→21:17)
[2024-07-09] MEDS: Milk of Magnesia 30 ML ORAL.SUSP PO (11:55)
--- NOTE | 2024-07-09 13:11 | P.PNIM_ITS ---
Subjective Subjective Date of Service: 07/09/24 Interval History: still with left sided chest pain Physical Exam 2 Vital Signs: Vital Signs: Last Vital Signs Temp 99.1 F 07/09/24 12:00 Pulse 79 07/09/24 12:00 Resp 18 07/09/24 12:00 BP 129/68 07/09/24 08:00 Pulse Ox 94 07/09/24 12:00 O2 Del Method Nasal Cannula 07/09/24 12:00 O2 Flow Rate 3.0 07/09/24 12:00 BMI result Body Mass Index 24.8 Const: Other: General: AO X 3, no acute distress Resp: CTA bilateral CVS: S1,S2,RRR GI: +BS, NT, no distention Skin: No rash Neuro: motor grossly intact Psych: appropriate affect Objective Data Active Medications Acetaminophen (Acetaminophen 325 Mg Tablet) 650 mg PO Q6H PRN PRN Reason: Pain, Mild 1-3,fever,headache Last Admin: 07/09/24 03:10 Dose: 650 mg Documented By: PHILLIP Acetaminophen/Butalbital/Caffeine (Butalb/Acetamin/Caff 50/325/40 Tablet) 1 tab PO DAILY PRN PRN Reason: Headache Albuterol/Ipratropium (Albuterol/Iprat 2.5/0.5mg 3 Ml Ampul.Neb) 3 ml INHALE RQ4H WHILE AWAKE PRN PRN Reason: sob Last Admin: 07/08/24 21:37 Dose: 3 ml Documented By: MARIFER Aspirin (Aspirin Enteric Coated 81 Mg Tablet.Dr) 81 mg PO DAILY [facility] Last Admin: 07/09/24 08:26 Dose: 81 mg Documented By: JEANNINE Atorvastatin Calcium (Atorvastatin Calcium 80 Mg Tablet) 80 mg PO BEDTIME [facility] Last Admin: 07/08/24 20:57 Dose: 80 mg Documented By: PHILLIP Bupropion HCl (Bupropion Hcl Xl 300 Mg Tab.Er.24h) 300 mg PO DAILY [facility] Last Admin: 07/09/24 08:25 Dose: 300 mg Documented By: JEANNINE Buspirone HCl (Buspirone Hcl 10 Mg Tablet) 10 mg PO BID [facility] Last Admin: 07/09/24 08:23 Dose: 10 mg Documented By: JEANNINE Calcium Carbonate (Calcium Carbonate 750 Mg Tab.Chew) 750 mg PO Q4H PRN PRN Reason: Heartburn Clopidogrel Bisulfate (Clopidogrel Bisulfate 75 Mg Tablet) 75 mg PO DAILY [facility] Last Admin: 07/09/24 08:22 Dose: 75 mg Documented By: JEANNINE Cyclobenzaprine HCl (Cyclobenzaprine Hcl 10 Mg Tablet) 10 mg PO DAILY PRN PRN Reason: muscle spasms Doxycycline Monohydrate (Doxycycline Monohydrate 100 Mg Capsule) 100 mg PO BID [facility] Last Admin: 07/09/24 08:25 Dose: 100 mg Documented By: JEANNINE Fluticasone Propionate (Fluticasone Propionate Nasal 16 Gm [place]) 1 spray NOSTRIL-B BID PRN PRN Reason: allergies Fluticasone/Umeclidinium/Vilanterol (Fluticasone/Umeclidinium/Vilanterol 100/62.5/25 Blst.W.Dev) 1 puff INHALE RDAILY [facility] Last Admin: 07/09/24 07:52 Dose: 1 puff Documented By: TAM Sodium Chloride (Ns) 1,000 mls @ 50 mls/hr IVCONT .Q20H [facility] Last Admin: 07/09/24 07:28 Dose: 50 mls/hr Documented By: JEANNINE Levalbuterol HCl (Levalbuterol Hcl 1.25 Mg/3 Ml Vial.Neb) 1.25 mg INHALE TID PRN PRN Reason: Shortness Of Breath Or Wheezing Magnesium Hydroxide (Milk Of Magnesia 30 Ml Oral.Susp) 30 ml PO DAILY PRN PRN Reason: Constipation Last Admin: 07/09/24 11:55 Dose: 30 ml Documented By: JEANNINE Melatonin (Melatonin 3 Mg Tablet) 6 mg PO BEDTIME PRN PRN Reason: Insomnia Metoprolol Tartrate (Metoprolol Tartrate 25 Mg Tablet) 25 mg PO BID [facility]; Protocol Last Admin: 07/09/24 08:26 Dose: 25 mg Documented By: JEANNINE Morphine Sulfate (Morphine Sulfate 4 Mg/Ml Cartridge) 4 mg IVPUSH Q4H PRN; Protocol PRN Reason: Pain, Severe (Pain Scale 7-10) Last Admin: 07/09/24 03:11 Dose: 4 mg Documented By: PHILLIP Morphine Sulfate (Morphine Sulfate Immed Release 15 Mg Tablet) 15 mg PO Q4H [facility] Last Admin: 07/09/24 11:55 Dose: 15 mg Documented By: JEANNINE Nicotine (Nicotine 14 Mg Patch.Td24) 14 mg TRANSDERMA DAILY [facility] Last Admin: 07/09/24 08:26 Dose: 14 mg Documented By: JEANNINE Ondansetron HCl (Ondansetron Hcl 4 Mg/2 Ml Vial) 4 mg IVPUSH Q8H PRN PRN Reason: Nausea and Vomiting Last Admin: 07/08/24 02:09 Dose: 4 mg Documented By: ROLAND Prednisone (Prednisone 20 Mg Tablet) 40 mg PO DAILY [facility] Last Admin: 07/09/24 08:24 Dose: 40 mg Documented By: JEANNINE Roflumilast (Roflumilast 500 Mcg Tablet) 500 mcg PO DAILY [facility] Last Admin: 07/09/24 08:24 Dose: 500 mcg Documented By: JEANNINE Sertraline HCl (Sertraline Hcl 50 Mg Tablet) 50 mg PO DAILY [facility] Last Admin: 07/09/24 08:24 Dose: 50 mg Documented By: JEANNINE Sodium Chloride (0.9 % Sodium Chloride Flush 3 Ml Syringe) 3 ml IVFLUSH QSHIFT [facility] Last Admin: 07/09/24 07:32 Dose: Not Given Documented By: JEANNINE Non-Admin Reason: IV Running Vitamin D (Cholecalciferol (Vitamin D3) 25 Mcg Tablet) 100 mcg PO DAILY [facility] Last Admin: 07/09/24 08:23 Dose: 100 mcg Documented By: JEANNINE Labs 07/10/24 06:29 07/10/24 06:29 Labs: Laboratory Results - last 24 hr 07/09/24 06:23 MCV 91.1 MCH 31.4 MCHC 34.5 RDW 12.9 Plt Count 210 MPV 10.0 Absolute Nucleated RBC 0.000 Nucleated RBC % (auto) 0.0 Anion Gap 12 Estim Creat Clear Calc 69.1 Estimated GFR > 60 Random Glucose 146 H Calcium 9.1 Assessment and Plan (1) Chest wall contusion: Status: Acute Plan 73F PMH chronic hypoxemic respiratory failure due to COPD on 2 L baseline supplemental oxygen, mood disorder, hypertension, chronic opioid use, multiple sclerosis, tobacco use disorder presented to the emergency department for evaluation after a fall Intractable left-sided chest pain and hip pain due to mechanical fall No fractures on imaging, pain control, PT recommends STR but she's refusing Peripheral vascular disease, coronary artery disease Dual antiplatelet, statin Mood disorder Bupropion, buspirone Sertraline Hypertension, variable likely from pain continue Metoprolol and if needed add norvasc if consistently high acute on Chronic hypoxic respiratory failure due to COPD with acute decompensation prednisone, nebs, doxy Leukocytosis--likely reactive from steroid, monitor DVT prophylaxis-mechanical due to recent trauma Full code reason for continued hospitalization:pain control, hypoxia Quality Stroke Does the patient have a stroke diagnosis?: No VTE Prior VTE?: No VTE Risk Level:: Medical - moderate - high VTE Device Contraindication: N/A - Device Ordered VTE Drug Contraindication: Treatment Not Indicated
--- NOTE | 2024-07-09 20:00 | PC.NURSE ---
Per dy nurse, pt has been having visual hallucination, of water falling out of ceiling, and people that are not there, possibly d/t morphine. made aware, this RN requested to try new medication like dilaudid, new orders placed. Meds given per AUG.
[2024-07-09] MEDS: 0.9 % Sodium Chloride Flush 3 ML SYRINGE IVFLUSH (21:15)
[2024-07-09] MEDS: Atorvastatin Calcium 80 MG TABLET PO (21:16)
[2024-07-09] MEDS: Melatonin 3 MG TABLET 6 MG PO (21:18)
[2024-07-09] MEDS: HYDROmorphone HCl 1 MG/ML SYRINGE IVPUSH (21:19)
--- NOTE | 2024-07-09 21:26 | PC.NURSE ---
Pt reports small rash to right hand, that has become itchy, pt reassured possible reaction to morphine. Dr. Viera made aware, new orders placed, Meds given per AUG.
[2024-07-09] MEDS: ondansetron HCL 4 MG/2 ML VIAL IVPUSH (21:30)
[2024-07-09] MEDS: diphenhydrAMINE HCL 50 MG/ML VIAL 25 MG IVPUSH (21:39)
--- NOTE | 2024-07-09 22:42 | PC.NURSE ---
Pt continues to have visual hallucinations and appears to become increasingly more confused, believing she is at home, trying to sleep on couch, seeing her grandchildren in the room, and bugs crawling out of the ceiling. Pt reassured, that she is safe and encouraged to close eyes and take some deep breathes, to help fall asleep. Pt appears/expresses to be more comfortable with the pain, but still expresses pain around a 6/10. Pt ambulating up to commode with 1 assist, through out the night. Dr. Viera made aware, and placed new orders, meds given AUG.
--- NOTE | 2024-07-09 22:49 | PM.EVENT ---
Event Note Date of Service: 07/09/24 Event Note: Contacted in multiple occasions to notify patient has been experiencing hallucinations. Nursing feels it is secondary to morphine so tx with dilaudid was requested. Patient persists with hallucinations (visual). Nursing now requesting to change pain meds to toradol and avoid narcotics. Per chart review patient uses narcotics chronically (oxy/APAP 10 mg-325) which we will order to avoid withdrawal symptoms. Toradol 15 mg IV q6h prn X2 ordered and scheduled Tylenol IV scheduled. It seems like since admission patient's pain has been welll controlled. She has been receiving morphine PO q4h + morphine IV and continues c/o pain. I am suspecting her symptoms could be due to delirium due to pain. Time Spent With Patient Time: Total time managing care of this patient today ____ minutes.
[2024-07-09] MEDS: Acetaminophen 1,000 MG/100 ML PIGGYBACK 400 MG IV (23:04)
[2024-07-10] VITALS (12 sets, daily range): BP systolic 147–195; BP diastolic 71–92; PULSE 76–94; RESP 16–18; TEMP 36–36.6; O2SAT 93–96
[2024-07-10] MEDS: oxyCODONE HCl Immed Release 5 MG TABLET 10 MG PO ×6 (00:36→21:52)
[2024-07-10] MEDS: Ketorolac Tromethamine 15 MG/ML VIAL IVPUSH ×2 (03:43→12:37)
[2024-07-10] MEDS: Acetaminophen 1,000 MG/100 ML PIGGYBACK 400 MG IV ×4 (04:29→23:50)
--- NOTE | 2024-07-10 05:24 | PC.NURSE ---
Respiratory called, to assess pt's respiratory status and give treatment, fine crackles heard, CXR taken, labs ordered, and meds given per AUG. DR. Viera made aware. IVF fluids held
[2024-07-10] MEDS: Albuterol/Iprat 2.5/0.5MG 3 ML AMPUL.NEB INHALE (05:39)
[2024-07-10] MEDS: Metoprolol Tartrate 25 MG TABLET PO ×3 (05:50→21:50)
[2024-07-10 06:34] LABS: MANUAL DIFF FLAG NO
[2024-07-10 06:46] LABS: Basophils Percent Auto 0.1 % (0-2); Eosinophils Percent Auto 0.1 % (0-4); Hematocrit 37.9 % (37.0-47.0); Hemoglobin 12.7 g/dl (12.0-16.0); Imm Gran Abs Auto 0.19 X10*3/uL (0.00-0.03); Lymphocytes Absolute Auto 1.1 X10*3/uL (1.2-4.9); Lymphocytes Percent Auto 5.8 % (20-40); Mean Corpuscular HGB Conc 33.5 g/dl (31.0-35.0); Mean Corpuscular Hemoglobin 30.7 pg (27.0-33.0); Mean Corpuscular Volume 91.5 fL (80.0-98.0); Mean Platelet Volume 9.8 fL (9.4-12.3); Monocytes Absolute Auto 1.1 X10*3/uL (0.1-1.2); Monocytes Percent Auto 5.4 % (2-11); Neutrophils Absolute Auto 17.1 x10*3/uL (2.0-8.3); Neutrophils Percent Auto 87.6 % (45-73); Platelet Count 258 X10*3/uL (160-400); Red Blood Count 4.14 X10*6/uL (4.20-5.50); White Blood Count 19.5 X10*3/uL (4.8-10.8)
[2024-07-10 07:01] LABS: Alanine Aminotransferase 114 U/L (0-31); Albumin Level 3.4 g/dL (3.5-5.0); Alkaline Phosphatase 148 U/L (39-117); Anion Gap 11 (12-20); Aspartate Amino Transferase 95 U/L (5-31); Bilirubin Total 0.4 mg/dL (0.0-1.0); Blood Urea Nitrogen 8 mg/dL (9-16); Calcium 8.4 mg/dL (8.4-10.2); Carbon Dioxide 28 mmol/L (22-29); Chloride 102 mmol/L (96-108); Creatinine Clr Calc Pharmacy 76.6; Estimated Glomerular Filt Rate > 60; Glucose Random 123 mg/dL (60-115); Potassium 3.5 mmol/L (3.3-5.1); Sodium 137 mmol/L (135-145); Total Protein 6.2 g/dL (6.5-8.0)
[2024-07-10 07:06] LABS: B Type Natriuretic Peptide 533 pg/mL (<100)
[2024-07-10] MEDS: Fluticasone/Umeclidinium/Vilanterol 100/62.5/25 BLST.W.DEV 1 PUFF INHALE (07:28)
[2024-07-10] MEDS: Nicotine 14 MG PATCH.TD24 TRANSDERMA (07:29)
[2024-07-10] MEDS: 0.9 % Sodium Chloride Flush 3 ML SYRINGE IVFLUSH ×2 (07:29→15:42)
[2024-07-10] MEDS: predniSONE 20 MG TABLET 40 MG PO (07:30)
[2024-07-10] MEDS: Sertraline HCL 50 MG TABLET PO (07:30)
[2024-07-10] MEDS: Aspirin Enteric Coated 81 MG TABLET.DR PO (07:30)
[2024-07-10] MEDS: Cholecalciferol (Vitamin D3) 25 MCG TABLET 100 MCG PO (07:31)
[2024-07-10] MEDS: busPIRone HCl 10 MG TABLET PO ×2 (07:31→21:51)
[2024-07-10] MEDS: Doxycycline Monohydrate 100 MG CAPSULE PO ×2 (07:31→21:50)
[2024-07-10] MEDS: Clopidogrel Bisulfate 75 MG TABLET PO (07:31)
[2024-07-10] MEDS: buPROPion HCl XL 300 MG TAB.ER.24H PO (07:31)
[2024-07-10] MEDS: Roflumilast 500 MCG TABLET PO (07:31)
[2024-07-10] MEDS: amLODIPine Besylate 5 MG TABLET PO (12:37)
[2024-07-10] MEDS: Butalb/Acetamin/Caff 50/325/40 TABLET 1 TAB PO (14:16)
[2024-07-10] MEDS: Nystatin Oral Susp 500,000 UNIT/5 ML ORAL.SUSP 200000 UNIT PO ×3 (14:16→21:51)
--- NOTE | 2024-07-10 14:39 | MHC.CM.PN ---
EMR REVIEWED AND PER MD ROUNDS, NOT MEDICALLY CLEARED FOR DC HOME. PT IS FINALLY CONSIDERING STR AND FIRST CHOICE WILL BE [facility]. [facility] HAS OFFERED A BED AND PT IS PROJECTED TO BE READY FOR DC 07/11. CM WILL CONTINUE TO FOLLOW FOR ANY CHANGE TO DC PLAN.
--- NOTE | 2024-07-10 14:52 | PM.PSYCN ---
History of Present Illness Date of Service: 07/10/2024 Chief Complaint: fall Requesting physician: Inderjit Phillips Discussed with referring provider: Yes Sources of Information: patient interviewed, chart reviewed and crisis/core team assessment reviewed HPI Narrative: Mrs. Leslie is a 73 year-old woman who came to the [facility] after mechanical fall. She had irretractable pain on left side of chest and left hip. She was started on morphine. She does have chronic rx for percocet. She also has underlying COPD with exacerbation. She reported seeing things that were not there last night. Therefore, psychiatry consulted for hallucinations. Pertinent labs: cbc with leukocytosis (thought the be reactive and also due to prednisone), CMP without electrolytes abnormalities, BUN 8, Cr. 0.68 creat clearance 76.6. AST 95, ALT 114, Alk Phos 148. BNP 533, EKG normal sinus, Qtc 423ms. Pt seen in her room. She is SOB and sounds congested. She reports she feels weak and tired. She does remember seeing white lights on the ceiling and animals. She denies seeing that today and is glad is better. She is off morphine and transition to oxycodone and toradol. She is oriented to place, month, year and situation. Medical Evaluation Reviewed: Yes [facility] Medical History History of CAD (coronary artery disease) Peripheral vascular disease Chronic back pain GERD (gastroesophageal reflux disease) High cholesterol HTN (hypertension) Immune disorder COPD (chronic obstructive pulmonary disease) Multiple sclerosis Surgical History History of angioplasty History of heart artery stent Diagnostics Vital Signs (24Hr): Vital Signs - 24 hr 07/09/24 16:00 07/09/24 20:00 07/09/24 21:17 Temperature 97.0 F 98.2 F Pulse Rate 78 82 99 Respiratory Rate 20 18 Blood Pressure 183/73 H 196/84 H 196/84 H Pulse Oximetry 94 92 Oxygen Delivery Method Nasal Cannula Nasal Cannula Oxygen Flow Rate 3 3 07/09/24 23:31 07/10/24 03:57 07/10/24 05:35 Temperature 97.5 F 97.2 F Pulse Rate 79 80 80 Respiratory Rate 18 18 18 Blood Pressure 146/70 H 191/84 H Pulse Oximetry 93 93 Oxygen Delivery Method Nasal Cannula Nasal Cannula Oxygen Flow Rate 3 3 07/10/24 05:50 07/10/24 07:28 07/10/24 07:53 Temperature 96.9 F Pulse Rate 80 80 77 Respiratory Rate 18 18 Blood Pressure 191/84 H 147/71 H Pulse Oximetry 94 Oxygen Delivery Method Nasal Cannula Oxygen Flow Rate 3 07/10/24 11:57 07/10/24 12:06 07/10/24 13:04 Temperature 96.9 F Pulse Rate 76 Respiratory Rate 18 Blood Pressure 195/91 H 195/91 H Pulse Oximetry 95 Oxygen Delivery Method Nasal Cannula Oxygen Flow Rate 3.0 07/10/24 13:28 Temperature Pulse Rate Respiratory Rate Blood Pressure 185/86 H Pulse Oximetry Oxygen Delivery Method Oxygen Flow Rate BMI result Body Mass Index 24.8 Labs 07/10/24 06:29 07/10/24 06:29 Labs: Laboratory Results - last 48 hr 07/09/24 07/10/24 06:23 06:29 WBC 20.1 H 19.5 H RBC 4.14 L D 4.14 L Hgb 13.0 12.7 Hct 37.7 D 37.9 MCV 91.1 91.5 MCH 31.4 30.7 MCHC 34.5 33.5 RDW 12.9 13.0 Plt Count 210 258 MPV 10.0 9.8 Immature Gran % (Auto) 1.0 H Neut % (Auto) 87.6 H Lymph % (Auto) 5.8 L [place] % (Auto) 5.4 Eos % (Auto) 0.1 Baso % (Auto) 0.1 Lymph # (Auto) 1.1 L [place] # (Auto) 1.1 Eos # (Auto) 0.0 Baso # (Auto) 0.0 Abs Immat Gran (auto) 0.19 H Absolute Neuts (auto) 17.1 H Absolute Nucleated RBC 0.000 0.000 Nucleated RBC % (auto) 0.0 0.0 Sodium 137 137 Potassium 3.9 3.5 Chloride 103 102 Carbon Dioxide 26 28 Anion Gap 12 11 L BUN 10 8 L Creatinine 0.61 0.55 Estim Creat Clear Calc 69.1 76.6 Estimated GFR > 60 > 60 Random Glucose 146 H 123 H Calcium 9.1 8.4 D Total Bilirubin 0.4 AST 95 H ALT 114 H Alkaline Phosphatase 148 H B-Natriuretic Peptide 533 H Total Protein 6.2 L Albumin 3.4 L Imaging Radiology Impressions: ITS Impressions Chest X-Ray 07/07/24 15:15 IMPRESSION: Left lower lobe atelectasis versus pneumonia. Electronically signed by: Morgan Chapin MD 07/07/2024 03:26 PM EST Mental Status Exam Mental Status Exam Narrative: Appearance: wearing hospital gown, fair hygiene, nasal canula, congested, coughing, SOB Behavior: cooperative Psychomotor: no agitation or retardation noted Speech: clear, normal rate/rhythm/volume, spontaneous TP: linear TC: feeling tired and congested Mood: tired Affect; congruent, intermittently cough, congested SI: none HI: none VH/AH: none at the moment Delusions: none Insight/judgment: fair x 2. Memory/cog: alert, oriented to place, month, year, situation. no formal testing completed, but may benefit outpatient for underlying chronic cognitive/memory changes. Medications Medications Current Medications Acetaminophen/Butalbital/Caffeine (Butalb/Acetamin/Caff 50/325/40 Tablet) 1 tab PO DAILY PRN PRN Reason: Headache Last Admin: 07/10/24 14:16 Dose: 1 tab Albuterol/Ipratropium (Albuterol/Iprat 2.5/0.5mg 3 Ml Ampul.Neb) 3 ml INHALE RQ4H WHILE AWAKE PRN PRN Reason: sob Last Admin: 07/10/24 05:39 Dose: 3 ml Amlodipine Besylate (Amlodipine Besylate 5 Mg Tablet) 5 mg PO DAILY [facility]; Protocol Last Admin: 07/10/24 12:37 Dose: 5 mg Aspirin (Aspirin Enteric Coated 81 Mg Tablet.) 81 mg PO DAILY [facility] Last Admin: 07/10/24 07:30 Dose: 81 mg Atorvastatin Calcium (Atorvastatin Calcium 80 Mg Tablet) 80 mg PO BEDTIME [facility] Last Admin: 07/09/24 21:16 Dose: 80 mg Bupropion HCl (Bupropion Hcl Xl 300 Mg Tab.Er.24h) 300 mg PO DAILY [facility] Last Admin: 07/10/24 07:31 Dose: 300 mg Buspirone HCl (Buspirone Hcl 10 Mg Tablet) 10 mg PO BID [facility] Last Admin: 07/10/24 07:31 Dose: 10 mg Calcium Carbonate (Calcium Carbonate 750 Mg Tab.Chew) 750 mg PO Q4H PRN PRN Reason: Heartburn Clopidogrel Bisulfate (Clopidogrel Bisulfate 75 Mg Tablet) 75 mg PO DAILY [facility] Last Admin: 07/10/24 07:31 Dose: 75 mg Cyclobenzaprine HCl (Cyclobenzaprine Hcl 10 Mg Tablet) 10 mg PO DAILY PRN PRN Reason: muscle spasms Doxycycline Monohydrate (Doxycycline Monohydrate 100 Mg Capsule) 100 mg PO BID [facility] Last Admin: 07/10/24 07:31 Dose: 100 mg Fluticasone Propionate (Fluticasone Propionate Nasal 16 Gm [place]) 1 spray NOSTRIL-B BID PRN PRN Reason: allergies Fluticasone/Umeclidinium/Vilanterol (Fluticasone/Umeclidinium/Vilanterol 100/62.5/25 Blst.W.Dev) 1 puff INHALE RDAILY [facility] Last Admin: 07/10/24 07:28 Dose: 1 puff Acetaminophen (Ofirmev) 1,000 mg in 100 mls @ 400 mls/hr IV Q6H [facility] Last Infusion: 07/10/24 10:57 Dose: Infused Levalbuterol HCl (Levalbuterol Hcl 1.25 Mg/3 Ml Vial.Neb) 1.25 mg INHALE TID PRN PRN Reason: Shortness Of Breath Or Wheezing Magnesium Hydroxide (Milk Of Magnesia 30 Ml Oral.Susp) 30 ml PO DAILY PRN PRN Reason: Constipation Last Admin: 07/09/24 11:55 Dose: 30 ml Melatonin (Melatonin 3 Mg Tablet) 6 mg PO BEDTIME PRN PRN Reason: Insomnia Last Admin: 07/09/24 21:18 Dose: 6 mg Metoprolol Tartrate (Metoprolol Tartrate 25 Mg Tablet) 25 mg PO BID [facility]; Protocol Last Admin: 07/10/24 07:31 Dose: 25 mg Nicotine (Nicotine 14 Mg Patch.Td24) 14 mg TRANSDERMA DAILY [facility] Last Admin: 07/10/24 07:29 Dose: 14 mg Nystatin (Nystatin Oral Susp 500,000 Unit/5 Ml Oral.Susp) 200,000 unit PO QID [facility]; Protocol Last Admin: 07/10/24 14:16 Dose: 200,000 unit Ondansetron HCl (Ondansetron Hcl 4 Mg/2 Ml Vial) 4 mg IVPUSH Q8H PRN PRN Reason: Nausea and Vomiting Last Admin: 07/09/24 21:30 Dose: 4 mg Oxycodone HCl (Oxycodone Hcl Immed Release 5 Mg Tablet) 10 mg PO Q3H PRN PRN Reason: Pain, Moderate(Pain Scale 4-6) Last Admin: 07/10/24 14:16 Dose: 10 mg Prednisone (Prednisone 20 Mg Tablet) 40 mg PO DAILY [facility] Last Admin: 07/10/24 07:30 Dose: 40 mg Roflumilast (Roflumilast 500 Mcg Tablet) 500 mcg PO DAILY [facility] Last Admin: 07/10/24 07:31 Dose: 500 mcg Sertraline HCl (Sertraline Hcl 50 Mg Tablet) 50 mg PO DAILY [facility] Last Admin: 07/10/24 07:30 Dose: 50 mg Sodium Chloride (0.9 % Sodium Chloride Flush 3 Ml Syringe) 3 ml IVFLUSH QSHIFT [facility] Last Admin: 07/10/24 07:29 Dose: 3 ml Vitamin D (Cholecalciferol (Vitamin D3) 25 Mcg Tablet) 100 mcg PO DAILY [facility] Last Admin: 07/10/24 07:31 Dose: 100 mcg Allergies Allergies Allergy/AdvReac Type Severity Reaction Status Date / Time codeine [CODEINE] Allergy Unknown Hives Verified 07/06/24 18:37 Assessment & Plan Assessment & Plan (1) Delirium: Status: Acute Code(s): R41.0 - Disorientation, unspecified Plan Mrs. Leslie is a 73 year-old woman who was admitted after mechanical fall due to intractable pain on left chest, and left hip. She also had exacerbation of COPD. She presented with hallucinations last night and increased confusion, which seemed to have been secondary to morphine. She does take percocet at home. She appears much more clear today and without signs of hallucinations. Seems like delirium is resolving. PLAN 1. no further intervention at this point. 2. re-consult psych is re-appearance of psychosis or confusion. Total time managing care of this patient today ____ minutes.
[2024-07-10 17:01] LABS: Appearance Urine Clear; Color Urine Yellow; Glucose Urine UA 250 mg/dL (Negative); Leukocyte Esterase Urine Negative (Negative); Nitrite Urine Negative (Negative); PH 7.5 (5.0-9.0); Specific Gravity - Urine <= 1.005 (1.005-1.025); Urine Blood Negative (Negative); Urine Ketones Negative (Negative); Urine Protein Trace mg/dL (Neg-Trace)
[2024-07-10 17:03] LABS: Bacteria Urine None Seen (None Seen); Hyaline Casts Urine 0-2 /LPF (0-2); RBC Urine 0-2 /HPF (0-2); Squamous Epithelial Cell Urine 0-2 /HPF (0-2); WBC Urine 0-5 /HPF (0-5)
[2024-07-10] MEDS: Atorvastatin Calcium 80 MG TABLET PO (21:51)
[2024-07-10 23:35] LABS: Venous Blood Gas Refer to POC result
[2024-07-10 23:36] LABS: VBG Base Excess 10.3 mmol/L; VBG HCO3 36 mmol/L (22-26); VBG pCO2 52 mmHg; VBG pH 7.44 (7.32-7.43); VBG pO2 44 mmHg
[2024-07-10] MEDS: OLANZapine 5 MG TABLET PO (23:56)
[2024-07-11] VITALS (9 sets, daily range): BP systolic 144–186; BP diastolic 73–90; PULSE 83–112; RESP 18; TEMP 36.4–37.1; O2SAT 91–95
[2024-07-11] MEDS: 0.9 % Sodium Chloride Flush 3 ML SYRINGE IVFLUSH ×4 (00:01→23:37)
--- NOTE | 2024-07-11 01:32 | PC.NURSE ---
Assumed care of this patient at 2300. Patient was very active, impulsive, OOB several times needing redirecting. Doesn't always know she is in the hospital. Patient has figured out how to turn off bed alarm. There is a staff member jefferson tong sitting in doorway due to this. Camera placed in room. Hallucination of IV tylenol, she stated it was spraying all over the room from both ends of the tubing, which was not occurring. Patient had four cans of Pepsi with caffeine at bedside. PROGRAM [employer]ING LEADER since 2299 said patient drank 2 pepsi with caffeine and a third was already half gone when she met patient. There are five more full cans of pepsi in the room. Pepsi removed from beside as this caffeine may be part of her restlessness and given water.
--- NOTE | 2024-07-11 03:24 | PC.NURSE ---
Dr. Maximiliano Winters notified of BP 184/86 P83 at 0253 via SendRR. (as pt has been experiencing HTN throughout the day). Message seen by and responded to this RN at 0306. No new orders for hypertension.
[2024-07-11] MEDS: Acetaminophen 1,000 MG/100 ML PIGGYBACK 400 MG IV ×4 (06:28→23:02)
[2024-07-11] MEDS: Fluticasone/Umeclidinium/Vilanterol 100/62.5/25 BLST.W.DEV 1 PUFF INHALE (08:25)
[2024-07-11] MEDS: Clopidogrel Bisulfate 75 MG TABLET PO (08:50)
[2024-07-11] MEDS: amLODIPine Besylate 5 MG TABLET PO (08:50)
[2024-07-11] MEDS: Doxycycline Monohydrate 100 MG CAPSULE PO ×2 (08:50→20:23)
[2024-07-11] MEDS: Cholecalciferol (Vitamin D3) 25 MCG TABLET 100 MCG PO (08:50)
[2024-07-11] MEDS: predniSONE 20 MG TABLET 40 MG PO (08:50)
[2024-07-11 08:53] LABS: Hematocrit 41.9 % (37.0-47.0); Hemoglobin 14.6 g/dl (12.0-16.0); Mean Corpuscular HGB Conc 34.8 g/dl (31.0-35.0); Mean Corpuscular Hemoglobin 30.5 pg (27.0-33.0); Mean Corpuscular Volume 87.7 fL (80.0-98.0); Mean Platelet Volume 9.6 fL (9.4-12.3); Platelet Count 338 X10*3/uL (160-400); Red Blood Count 4.78 X10*6/uL (4.20-5.50); Red Cell Distribution Width 12.6 % (11.0-16.0); White Blood Count 22.6 X10*3/uL (4.8-10.8)
[2024-07-11 08:57] LABS: Venous Blood Gas Refer to POC result
[2024-07-11 08:58] LABS: VBG Base Excess 13.2 mmol/L; VBG HCO3 39 mmol/L (22-26); VBG pCO2 52 mmHg; VBG pH 7.48 (7.32-7.43); VBG pO2 26 mmHg
--- NOTE | 2024-07-11 09:01 | PM.EVENT ---
Event Note Date of Service: 07/11/24 Event Note: Patient is a 73 YO F admitted for Time Spent With Patient Time: Total time managing care of this patient today ____ minutes.
[2024-07-11] MEDS: Metoprolol Tartrate 25 MG TABLET PO ×2 (09:02→20:23)
[2024-07-11] MEDS: Sertraline HCL 50 MG TABLET PO (09:03)
[2024-07-11] MEDS: Aspirin Enteric Coated 81 MG TABLET.DR PO (09:03)
[2024-07-11] MEDS: buPROPion HCl XL 300 MG TAB.ER.24H PO (09:03)
[2024-07-11] MEDS: busPIRone HCl 10 MG TABLET PO ×2 (09:03→20:23)
[2024-07-11] MEDS: Roflumilast 500 MCG TABLET PO (09:04)
[2024-07-11] MEDS: Nicotine 14 MG PATCH.TD24 TRANSDERMA (09:04)
[2024-07-11] MEDS: Nystatin Oral Susp 500,000 UNIT/5 ML ORAL.SUSP 200000 UNIT PO ×4 (09:04→20:22)
[2024-07-11 09:17] LABS: B Type Natriuretic Peptide 482 pg/mL (<100)
[2024-07-11 09:23] LABS: Alanine Aminotransferase 119 U/L (0-31); Albumin Level 3.8 g/dL (3.5-5.0); Alkaline Phosphatase 146 U/L (39-117); Anion Gap 12 (12-20); Aspartate Amino Transferase 65 U/L (5-31); Bilirubin Total 0.9 mg/dL (0.0-1.0); Blood Urea Nitrogen 10 mg/dL (9-16); Calcium 9.6 mg/dL (8.4-10.2); Carbon Dioxide 30 mmol/L (22-29); Chloride 97 mmol/L (96-108); Creatinine Clr Calc Pharmacy 71.4; Estimated Glomerular Filt Rate > 60; Glucose Random 111 mg/dL (60-115); Potassium 3.2 mmol/L (3.3-5.1); Sodium 136 mmol/L (135-145); Total Protein 6.8 g/dL (6.5-8.0)
[2024-07-11 09:33] LABS: Procalcitonin 0.07 ng/mL
--- NOTE | 2024-07-11 10:15 | PM.CNOR ---
History of Present Illness HPI Consult date: 07/11/24 Chief complaint: fall Narrative: Patient is a 73-year-old female who is admitted to the hospital after a fall on 07/06/2024 Patient was reporting significant pain in the left hip after her fall, but CT scan in the ED did not appear to reveal acute fracture of the left hip Patient continued to experience significant pain in the left hip, making weight-bearing extremely difficult X-rays ordered early this morning do reveal minimally displaced, impacted femoral neck fracture of the left hip Today, patient resting in bed Reports pain is fairly well managed with pain medication Of note, patient is eating breakfast during examination Has taken Plavix and aspirin this morning No other acute complaints or concerns at this time Review of Systems Review of Systems: Yes all other systems are reviewed and are negative PMFSH Past Medical History Medical History History of CAD (coronary artery disease) Peripheral vascular disease Chronic back pain GERD (gastroesophageal reflux disease) High cholesterol HTN (hypertension) Immune disorder COPD (chronic obstructive pulmonary disease) Multiple sclerosis Surgical History Surgical History History of angioplasty History of heart artery stent Social History Social History Household Members: Spouse Housing: House Do you presently have visiting nurse or other home services: No Alcohol intake: never Comment: pt is calm and cooperative, not impulsive Patient Tobacco Use Status: Current everyday Tobacco user Tobacco use type: Cigarette Cigarette Packs Per Day: 1 Cigarettes Per Day: 20.0 Smoked in Last 30 Days: Yes Patient Interested in Nicotine Replacement: Yes Use of substances other than those prescribed or required for medical reasons: No Currently Displaying Signs/Symptoms of Drug Intoxication Withdrawal: No Advance Directives: Yes Advance Directives on File: Yes Advance Directives Date on File: 11/22/22 service: No Current occupational status: retired Meds Allergies Allergy/AdvReac Type Severity Reaction Status Date / Time codeine [CODEINE] Allergy Unknown Hives Verified 07/06/24 18:37 Active Medications: Current Medications Acetaminophen/Butalbital/Caffeine (Butalb/Acetamin/Caff 50/325/40 Tablet) 1 tab PO DAILY PRN PRN Reason: Headache Last Admin: 07/10/24 14:16 Dose: 1 tab Albuterol/Ipratropium (Albuterol/Iprat 2.5/0.5mg 3 Ml Ampul.Neb) 3 ml INHALE RQ4H WHILE AWAKE PRN PRN Reason: sob Last Admin: 07/10/24 05:39 Dose: 3 ml Amlodipine Besylate (Amlodipine Besylate 5 Mg Tablet) 5 mg PO DAILY [facility]; Protocol Last Admin: 07/11/24 08:50 Dose: 5 mg Aspirin (Aspirin Enteric Coated 81 Mg Tablet.Dr) 81 mg PO DAILY [facility] Last Admin: 07/11/24 09:03 Dose: 81 mg Atorvastatin Calcium (Atorvastatin Calcium 80 Mg Tablet) 80 mg PO BEDTIME [facility] Last Admin: 07/10/24 21:51 Dose: 80 mg Bisacodyl (Bisacodyl 5 Mg Tablet.Dr) 10 mg PO BEDTIME [facility] Bupropion HCl (Bupropion Hcl Xl 300 Mg Tab.Er.24h) 300 mg PO DAILY [facility] Last Admin: 07/11/24 09:03 Dose: 300 mg Buspirone HCl (Buspirone Hcl 10 Mg Tablet) 10 mg PO BID [facility] Last Admin: 07/11/24 09:03 Dose: 10 mg Calcium Carbonate (Calcium Carbonate 750 Mg Tab.Chew) 750 mg PO Q4H PRN PRN Reason: Heartburn Clopidogrel Bisulfate (Clopidogrel Bisulfate 75 Mg Tablet) 75 mg PO DAILY [facility] Last Admin: 07/11/24 08:50 Dose: 75 mg Cyclobenzaprine HCl (Cyclobenzaprine Hcl 10 Mg Tablet) 10 mg PO DAILY PRN PRN Reason: muscle spasms Doxycycline Monohydrate (Doxycycline Monohydrate 100 Mg Capsule) 100 mg PO BID [facility] Stop: 07/12/24 12:20 Last Admin: 07/11/24 08:50 Dose: 100 mg Fluticasone Propionate (Fluticasone Propionate Nasal 16 Gm [place]) 1 spray NOSTRIL-B BID PRN PRN Reason: allergies Fluticasone/Umeclidinium/Vilanterol (Fluticasone/Umeclidinium/Vilanterol 100/62.5/25 Blst.W.Dev) 1 puff INHALE RDAILY [facility] Last Admin: 07/11/24 08:25 Dose: 1 puff Haloperidol Lactate (Haloperidol Lactate 5 Mg/Ml Vial) 5 mg IM ONCE PRN PRN Reason: agitation Acetaminophen (Ofirmev) 1,000 mg in 100 mls @ 400 mls/hr IV Q6H [facility] Last Infusion: 07/11/24 07:14 Dose: Infused Levalbuterol HCl (Levalbuterol Hcl 1.25 Mg/3 Ml Vial.Neb) 1.25 mg INHALE TID PRN PRN Reason: Shortness Of Breath Or Wheezing Magnesium Hydroxide (Milk Of Magnesia 30 Ml Oral.Susp) 30 ml PO DAILY PRN PRN Reason: Constipation Last Admin: 07/09/24 11:55 Dose: 30 ml Melatonin (Melatonin 3 Mg Tablet) 6 mg PO BEDTIME PRN PRN Reason: Insomnia Last Admin: 07/09/24 21:18 Dose: 6 mg Metoprolol Tartrate (Metoprolol Tartrate 25 Mg Tablet) 25 mg PO BID [facility]; Protocol Last Admin: 07/11/24 09:02 Dose: 25 mg Nicotine (Nicotine 14 Mg Patch.Td24) 14 mg TRANSDERMA DAILY [facility] Last Admin: 07/11/24 09:04 Dose: 14 mg Nystatin (Nystatin Oral Susp 500,000 Unit/5 Ml Oral.Susp) 200,000 unit PO QID [facility]; Protocol Last Admin: 07/11/24 09:04 Dose: 200,000 unit Oxycodone HCl (Oxycodone Hcl Immed Release 5 Mg Tablet) 10 mg PO Q3H PRN PRN Reason: Pain, Moderate(Pain Scale 4-6) Last Admin: 07/10/24 21:52 Dose: 10 mg Prednisone (Prednisone 20 Mg Tablet) 40 mg PO DAILY [facility] Stop: 07/11/24 12:20 Last Admin: 07/11/24 08:50 Dose: 40 mg Prednisone (Prednisone 10 Mg Tablet) 30 mg PO DAILY [facility]; Taper Stop: 07/18/24 08:59 Roflumilast (Roflumilast 500 Mcg Tablet) 500 mcg PO DAILY [facility] Last Admin: 07/11/24 09:04 Dose: 500 mcg Sertraline HCl (Sertraline Hcl 50 Mg Tablet) 50 mg PO DAILY [facility] Last Admin: 07/11/24 09:03 Dose: 50 mg Sodium Chloride (0.9 % Sodium Chloride Flush 3 Ml Syringe) 3 ml IVFLUSH QSHIFT [facility] Last Admin: 07/11/24 09:02 Dose: 3 ml Vitamin D (Cholecalciferol (Vitamin D3) 25 Mcg Tablet) 100 mcg PO DAILY [facility] Last Admin: 07/11/24 08:50 Dose: 100 mcg Home Medications ?Medication ?Instructions ?Recorded ?Confirmed ?Last Taken ?Type aspirin 81 mg capsule 81 mg PO DAILY 11/15/22 07/07/24 07/06/24 History buspirone 10 mg tablet 10 mg PO BID 11/15/22 07/07/24 07/06/24 History pzycuqktlx-pvzpjxllvxqet-oittrtez 1 cap PO DAILY PRN Headache 11/15/22 07/07/24 Unknown History 50 mg-300 mg-40 mg capsule cholecalciferol (vitamin D3) 50 100 mcg PO DAILY 11/15/22 07/07/24 07/06/24 History mcg (2,000 unit) capsule clopidogrel 75 mg tablet 75 mg PO DAILY 11/15/22 07/07/24 07/06/24 History erenumab-aooe 140 mg/mL 140 mg subcut Q28D 11/15/22 07/07/24 1 Week Ago History subcutaneous auto-injector ~06/30/24 (Aimovig Autoinjector) esomeprazole magnesium 40 mg 40 mg PO DAILY@0630 11/15/22 07/07/24 07/06/24 History capsule,delayed release fluticasone fur. 100 mcg-umeclid 1 ea inhalation DAILY 11/15/22 07/07/24 07/06/24 History 62.5 mcg-vilant 25 mcg inhalat.powder (Trelegy Ellipta) fluticasone propionate 50 1 spray intranasal BID PRN 11/15/22 07/07/24 2 Days Ago History mcg/actuation nasal allergies ~11/13/22 spray,suspension immun glob G 10 50 ml subcut MO 11/15/22 07/07/24 06/29/24 History gram/50mL(20%)-gly-IgA over 50 mcg/mL subcutaneous suzanna (Cuvitru) levalbuterol HCl 1.25 mg/0.5 mL 1.25 mg inhalation TID PRN 11/15/22 07/07/24 Unknown History solution for nebulization Shortness Of Breath Or Wheezing metoprolol tartrate 25 mg tablet 25 mg PO BID 11/15/22 07/07/24 07/06/24 History nitroglycerin 0.4 mg sublingual 0.4 mg sublingual Q5M PRN Chest 11/15/22 07/07/24 2 Days Ago History tablet Pain ~11/13/22 ocrelizumab 30 mg/mL intravenous 600 mg IV [id number] 11/15/22 07/07/24 6 Months Ago History solution ~01/05/24 oxycodone-acetaminophen 10 mg-325 1 tab PO Q4H PRN Pain (Scale Score 11/15/22 07/07/24 2 Days Ago History mg tablet 4-6) ~11/13/22 bupropion HCl 150 mg tablet,12 hr 150 mg PO BID 07/07/24 07/07/24 07/06/24 History sustained-release cyclobenzaprine 10 mg tablet 10 mg PO DAILY PRN muscle spasms 07/07/24 07/07/24 Unknown History ipratropium 0.5 mg-albuterol 3 mg 3 ml inhalation QID PRN wheezing 07/07/24 07/07/24 Unknown History (2.5 mg base)/3 mL nebulization soln roflumilast 500 mcg tablet 500 mcg PO DAILY 07/07/24 07/07/24 07/06/24 History rosuvastatin 40 mg tablet 40 mg PO BEDTIME 07/07/24 07/07/24 07/05/24 History sertraline 50 mg tablet 50 mg PO DAILY 07/07/24 07/07/24 Unknown History Physical Exam Vital Signs: Vital Signs: Last Vital Signs Temp 97.9 F 07/11/24 07:19 Pulse 94 07/11/24 08:28 Resp 18 07/11/24 08:28 BP 178/90 H 07/11/24 08:50 Pulse Ox 92 07/11/24 07:19 O2 Del Method Nasal Cannula 07/11/24 07:19 O2 Flow Rate 2 07/11/24 07:19 BMI result Body Mass Index 24.8 Extrem: Other: Patient's left hip normal to inspection No evidence of shortening or external rotation There is noted to be some ecchymosis on the lateral aspect of the left hip No erythema No evidence of infection Patient is able to flex and extend the digits of the left foot without difficulty Compartments soft, nontender Distal sensation intact Capillary refill brisk Results Labs 07/11/24 08:47 07/11/24 08:47 Labs: Abnormal lab results 07/10/24 07/10/24 07/11/24 Range/Units 16:52 23:31 08:47 WBC 22.6 H (4.8-10.8) X10*3/uL VBG pH 7.44 H (7.32-7.43) VBG HCO3 36 H (22-26) mmol/L Potassium 3.2 L (3.3-5.1) mmol/L Carbon Dioxide 30 H (22-29) mmol/L AST 65 H (5-31) U/L ALT 119 H (0-31) U/L Alkaline Phosphatase 146 H (39-117) U/L B-Natriuretic Peptide 482 H (<100) pg/mL Urine Glucose (UA) 250 H (Negative) mg/dL 07/11/24 Range/Units 08:52 WBC (4.8-10.8) X10*3/uL VBG pH 7.48 H (7.32-7.43) VBG HCO3 39 H (22-26) mmol/L Potassium (3.3-5.1) mmol/L Carbon Dioxide (22-29) mmol/L AST (5-31) U/L ALT (0-31) U/L Alkaline Phosphatase (39-117) U/L B-Natriuretic Peptide (<100) pg/mL Urine Glucose (UA) (Negative) mg/dL H & H 07/06/24 07/07/24 07/09/24 Range/Units 19:43 05:47 06:23 Hgb 15.5 D 16.1 H 13.0 (12.0-16.0) g/dl Hct 46.2 49.0 H 37.7 D (37.0-47.0) % 07/10/24 07/11/24 Range/Units 06:29 08:47 Hgb 12.7 14.6 (12.0-16.0) g/dl Hct 37.9 41.9 (37.0-47.0) % Coagulation 07/06/24 Range/Units 19:43 INR 0.9 (0.9-1.1) All other labs normal. Diagnostic results Hip x-ray: report reviewed and image reviewed Hip CT: report reviewed and image reviewed Assessment and Plan (1) Subcapital fracture of left hip: Status: Acute Plan 1. Impacted subcapital femoral neck fracture of the Left hip date of injury 07/06/2024 Patient was discussed with Dr. Rodriguez, and a collaborative treatment plan was formed: I educated the patient about this injury I educated the patient about the treatment options available Patient would like to proceed with surgery The risks and benefits of operative treatment were discussed with the patient and the patient wishes to proceed with surgery. These risks include, but are not limited to blood clots, risk of damage to blood vessels, nerves, tendons, infection, recurrence, incomplete relief of preoperative symptoms, persistent pain, possible need for further surgery, and the risks associated with regional blocks and/or anesthesia. Plan is to take the patient to the operating room tomorrow, 07/12/2024 for the following procedures: 1. CRPP of left hip under general anesthesia Patient will require medical clearance prior to surgery Hold Plavix and aspirin tomorrow morning prior to surgery Nonweightbearing on left lower extremity Continue pain management Continue with all other recommendations per Medicine Procedures Date of Service Date of Service: 07/11/24
[2024-07-11] MEDS: Morphine Sulfate 2 MG/ML CARTRIDGE 3 MG IVPUSH ×2 (11:12→20:41)
[2024-07-11] MEDS: Haloperidol Lactate 5 MG/ML VIAL IM ×2 (15:03→22:56)
--- NOTE | 2024-07-11 15:18 | P.PNIM_ITS ---
Subjective Subjective Date of Service: 07/11/24 Interval History: feels breathing is worse- coughing more no fever c/o L hip pain and X-ray found femoral neck fracture ongoing chest wall pain Review of Systems Review of Systems: Yes all other systems are reviewed and are negative Physical Exam 2 Vital Signs: Vital Signs: Last Vital Signs Temp 97.6 F 07/11/24 15:08 Pulse 98 07/11/24 15:08 Resp 18 07/11/24 15:08 BP 186/84 H 07/11/24 15:08 Pulse Ox 91 L 07/11/24 15:08 O2 Del Method Nasal Cannula 07/11/24 15:08 O2 Flow Rate 2 07/11/24 15:08 BMI result Body Mass Index 24.8 Gen: in no acute distress HEENT: sclera anicteric, moist mucus membranes Neck: supple Lungs: bilateral inspiratory crackles Heart: regular rate and rhythm, no murmurs Abd: soft, non-tender, non-distended Ext: no edema Skin: warm/well-perfused, bruising over L hip Neuro: alert and oriented x3, no focal findings Psych: appropriate affect Objective Data Active Medications Acetaminophen/Butalbital/Caffeine (Butalb/Acetamin/Caff 50/325/40 Tablet) 1 tab PO DAILY PRN PRN Reason: Headache Last Admin: 07/10/24 14:16 Dose: 1 tab Documented By: MED Albuterol/Ipratropium (Albuterol/Iprat 2.5/0.5mg 3 Ml Ampul.Neb) 3 ml INHALE RQ4H WHILE AWAKE PRN PRN Reason: sob Last Admin: 07/10/24 05:39 Dose: 3 ml Documented By: MARLYS Amlodipine Besylate (Amlodipine Besylate 5 Mg Tablet) 5 mg PO DAILY [facility]; Protocol Last Admin: 07/11/24 08:50 Dose: 5 mg Documented By: FITZ Aspirin (Aspirin Enteric Coated 81 Mg Tablet.) 81 mg PO DAILY [facility] Last Admin: 07/11/24 09:03 Dose: 81 mg Documented By: FITZ Atorvastatin Calcium (Atorvastatin Calcium 80 Mg Tablet) 80 mg PO BEDTIME [facility] Last Admin: 07/10/24 21:51 Dose: 80 mg Documented By: JORGE Bisacodyl (Bisacodyl 5 Mg Tablet.) 10 mg PO BEDTIME [facility] Bupropion HCl (Bupropion Hcl Xl 300 Mg Tab.Er.24h) 300 mg PO DAILY [facility] Last Admin: 07/11/24 09:03 Dose: 300 mg Documented By: FITZ Buspirone HCl (Buspirone Hcl 10 Mg Tablet) 10 mg PO BID [facility] Last Admin: 07/11/24 09:03 Dose: 10 mg Documented By: FITZ Calcium Carbonate (Calcium Carbonate 750 Mg Tab.Chew) 750 mg PO Q4H PRN PRN Reason: Heartburn Clopidogrel Bisulfate (Clopidogrel Bisulfate 75 Mg Tablet) 75 mg PO DAILY [facility] Last Admin: 07/11/24 08:50 Dose: 75 mg Documented By: FITZ Cyclobenzaprine HCl (Cyclobenzaprine Hcl 10 Mg Tablet) 10 mg PO DAILY PRN PRN Reason: muscle spasms Doxycycline Monohydrate (Doxycycline Monohydrate 100 Mg Capsule) 100 mg PO BID [facility] Stop: 07/12/24 12:20 Last Admin: 07/11/24 08:50 Dose: 100 mg Documented By: FITZ Fluticasone Propionate (Fluticasone Propionate Nasal 16 [address] [place]) 1 spray NOSTRIL-B BID PRN PRN Reason: allergies Fluticasone/Umeclidinium/Vilanterol (Fluticasone/Umeclidinium/Vilanterol 100/62.5/25 Blst.W.Dev) 1 puff INHALE RDAILY [facility] Last Admin: 07/11/24 08:25 Dose: 1 puff Documented By: ABRAN Haloperidol Lactate (Haloperidol Lactate 5 Mg/Ml Vial) 5 mg IM ONCE PRN PRN Reason: agitation Last Admin: 07/11/24 15:03 Dose: 5 mg Documented By: FITZ Acetaminophen (Ofirmev) 1,000 mg in 100 mls @ 400 mls/hr IV Q6H [facility] Last Infusion: 07/11/24 14:54 Dose: Infused Documented By: FITZ Cefazolin Sodium/Dextrose (Ancef) 2 gm in 50 mls @ 100 mls/hr IV PREOP ONE Stop: 07/12/24 05:29 Levalbuterol HCl (Levalbuterol Hcl 1.25 Mg/3 Ml Vial.Neb) 1.25 mg INHALE TID PRN PRN Reason: Shortness Of Breath Or Wheezing Magnesium Hydroxide (Milk Of Magnesia 30 Ml Oral.Susp) 30 ml PO DAILY PRN PRN Reason: Constipation Last Admin: 07/09/24 11:55 Dose: 30 ml Documented By: JEANNINE Melatonin (Melatonin 3 Mg Tablet) 6 mg PO BEDTIME PRN PRN Reason: Insomnia Last Admin: 07/09/24 21:18 Dose: 6 mg Documented By: CAROL ANN Metoprolol Tartrate (Metoprolol Tartrate 25 Mg Tablet) 25 mg PO BID [facility]; Protocol Last Admin: 07/11/24 09:02 Dose: 25 mg Documented By: FITZ Morphine Sulfate (Morphine Sulfate 2 Mg/Ml Cartridge) 3 mg IVPUSH Q4H PRN; Protocol PRN Reason: Pain, Severe (Pain Scale 7-10) Last Admin: 07/11/24 11:12 Dose: 3 mg Documented By: FITZ Nicotine (Nicotine 14 Mg Patch.Td24) 14 mg TRANSDERMA DAILY [facility] Last Admin: 07/11/24 09:04 Dose: 14 mg Documented By: FITZ Nystatin (Nystatin Oral Susp 500,000 Unit/5 Ml Oral.Susp) 200,000 unit PO QID [facility]; Protocol Last Admin: 07/11/24 14:17 Dose: 200,000 unit Documented By: FITZ Oxycodone HCl (Oxycodone Hcl Immed Release 5 Mg Tablet) 10 mg PO Q6H PRN PRN Reason: Pain, Moderate(Pain Scale 4-6) Prednisone (Prednisone 10 Mg Tablet) 30 mg PO DAILY [facility]; Taper Stop: 07/18/24 08:59 Roflumilast (Roflumilast 500 Mcg Tablet) 500 mcg PO DAILY [facility] Last Admin: 07/11/24 09:04 Dose: 500 mcg Documented By: FITZ Sertraline HCl (Sertraline Hcl 50 Mg Tablet) 50 mg PO DAILY [facility] Last Admin: 07/11/24 09:03 Dose: 50 mg Documented By: FITZ Sodium Chloride (0.9 % Sodium Chloride Flush 3 Ml Syringe) [facility] Last Admin: 07/11/24 09:02 Dose: 3 ml Documented By: FITZ Vitamin D (Cholecalciferol (Vitamin D3) 25 Mcg Tablet) 100 mcg PO DAILY [facility] Last Admin: 07/11/24 08:50 Dose: 100 mcg Documented By: FITZ Labs 07/11/24 08:47 07/11/24 08:47 Labs: Laboratory Results - last 24 hr 07/10/24 07/10/24 07/11/24 16:52 23:31 08:47 MCV 87.7 MCH 30.5 MCHC 34.8 RDW 12.6 Plt Count 338 D MPV 9.6 Absolute Nucleated RBC 0.000 Nucleated RBC % (auto) 0.0 VBG pH 7.44 H VBG pCO2 52 VBG pO2 44 VBG HCO3 36 H VBG O2 Saturation 77.0 VBG Base Excess 10.3 Anion Gap 12 Estim Creat Clear Calc 71.4 Estimated GFR > 60 Random Glucose 111 Calcium 9.6 D Total Bilirubin 0.9 AST 65 H ALT 119 H Alkaline Phosphatase 146 H B-Natriuretic Peptide 482 H Total Protein 6.8 Albumin 3.8 Procalcitonin 0.07 Urine Color Yellow Urine Appearance Clear Urine pH 7.5 Ur Specific [place] <= 1.005 Urine Protein Trace Urine Glucose (UA) 250 H Urine Ketones Negative Urine Blood Negative Urine Nitrite Negative Ur Leukocyte Esterase Negative Urine RBC 0-2 Urine WBC 0-5 Ur Squamous Epith Cells 0-2 Urine Bacteria None Seen Hyaline Casts 0-2 07/11/24 08:52 MCV MCH MCHC RDW Plt Count MPV Absolute Nucleated RBC Nucleated RBC % (auto) VBG pH 7.48 H VBG pCO2 52 VBG pO2 26 VBG HCO3 39 H VBG O2 Saturation 42.0 VBG Base Excess 13.2 Anion Gap Estim Creat Clear Calc Estimated GFR Random Glucose Calcium Total Bilirubin AST ALT Alkaline Phosphatase B-Natriuretic Peptide Total Protein Albumin Procalcitonin Urine Color Urine Appearance Urine pH Ur Specific [place] Urine Protein Urine Glucose (UA) Urine Ketones Urine Blood Urine Nitrite Ur Leukocyte Esterase Urine RBC Urine WBC Ur Squamous Epith Cells Urine Bacteria Hyaline Casts ITS Impressions Chest X-Ray 07/07/24 15:15 IMPRESSION: Left lower lobe atelectasis versus pneumonia. Electronically signed by: Morgan Chapin MD 07/07/2024 03:26 PM [facility] 07/11 L hip X-ray Mildly impacted fracture of the subcapital portion of the left femoral neck. 07/11 CT chest Findings suggestive of multilobar left more than right pneumonia (superimposed medial bibasilar aspiration pneumonia cannot be excluded) on a background of more diffuse bronchitis/bronchiolitis. Follow-up CT in 1 month for determination of temporal evolution of findings recommended. Assessment and Plan (1) Chest wall contusion: Status: Acute Plan d5 for 73yo F with COPD, chronic hypoxia on 2L O2, mood disorder, HTN, chronic opioid use, multiple sclerosis, tobacco abuse presented after fall, admitted for pain control, ultimately found to have L femoral neck fx L femoral neck fx - Ortho consulted, plan CRPP tomorrow, hold ASA/clopidogrel pneumonia - will start piperacillin-tazobactam today (07/11-), obtain [facility] consultation postop, repeat CT in 4 wk COPD exacerbation - completes doxycycline today, taper steroids, continue nebs + controller inhaler + roflumilast acute/chronic hypoxic resp failure - currently on 3L, wean as tolerated to home dose CAD PAD - DAPT on hold as above; continue statin mood disorder - continue bupropion, buspirone, sertraline HTN - continue metoprolol tartate + amlodipine VTE ppx - SCDs dispo - STR recommended In my clinical judgment, the patient requires continued inpatient hospitalization for the following reasons: IV ABX, hip fracture requiring operative fixation Total time managing care of this patient today: 50 minutes. Quality Stroke Does the patient have a stroke diagnosis?: No VTE Prior VTE?: No VTE Risk Level:: Medical - moderate - high VTE Device Contraindication: N/A - Device Ordered VTE Drug Contraindication: Treatment Not Indicated
[2024-07-11] MEDS: oxyCODONE HCl Immed Release 5 MG TABLET 10 MG PO (15:51)
[2024-07-11] MEDS: Piperacillin Sodium/Tazobactam 4.5 GM in 0.9 % Sodium Chloride 100 ML IV ×2 (15:53→22:26)
[2024-07-11] MEDS: Furosemide 20 MG/2 ML VIAL IVPUSH (16:27)
[2024-07-11] MEDS: Atorvastatin Calcium 80 MG TABLET PO (20:23)
[2024-07-12] VITALS (13 sets, daily range): BP systolic 152–211; BP diastolic 57–94; PULSE 80–119; RESP 16–24; TEMP 36.1–36.5; O2SAT 90–96
[2024-07-12] MEDS: Morphine Sulfate 2 MG/ML CARTRIDGE 3 MG IVPUSH ×4 (03:22→23:58)
[2024-07-12] MEDS: Acetaminophen 1,000 MG/100 ML PIGGYBACK 400 MG IV ×3 (04:14→17:28)
[2024-07-12] MEDS: Piperacillin Sodium/Tazobactam 4.5 GM in 0.9 % Sodium Chloride 100 ML IV ×3 (05:04→18:25)
[2024-07-12 06:58] LABS: Anion Gap 18 (12-20); Blood Urea Nitrogen 20 mg/dL (9-16); Calcium 9.3 mg/dL (8.4-10.2); Carbon Dioxide 27 mmol/L (22-29); Chloride 100 mmol/L (96-108); Creatinine Clr Calc Pharmacy 60.2; Estimated Glomerular Filt Rate > 60; Glucose Random 137 mg/dL (60-115); Potassium 3.1 mmol/L (3.3-5.1); Sodium 142 mmol/L (135-145)
[2024-07-12 07:34] LABS: B Type Natriuretic Peptide 305 pg/mL (<100)
[2024-07-12] MEDS: Nystatin Oral Susp 500,000 UNIT/5 ML ORAL.SUSP 200000 UNIT PO ×4 (08:08→20:35)
[2024-07-12] MEDS: Cholecalciferol (Vitamin D3) 25 MCG TABLET 100 MCG PO (08:09)
[2024-07-12] MEDS: amLODIPine Besylate 5 MG TABLET PO (08:10)
[2024-07-12] MEDS: Sertraline HCL 50 MG TABLET PO (08:10)
[2024-07-12] MEDS: predniSONE 10 MG TABLET PO (08:11)
[2024-07-12] MEDS: Potassium Chloride ER 20 MEQ TAB.ER.PRT 40 MEQ PO (08:12)
[2024-07-12] MEDS: buPROPion HCl XL 300 MG TAB.ER.24H PO (08:12)
[2024-07-12] MEDS: Metoprolol Tartrate 50 MG TABLET PO ×2 (08:12→20:30)
[2024-07-12] MEDS: busPIRone HCl 10 MG TABLET PO ×2 (08:12→20:30)
[2024-07-12] MEDS: Doxycycline Monohydrate 100 MG CAPSULE PO (08:12)
[2024-07-12] MEDS: Roflumilast 500 MCG TABLET PO (08:12)
[2024-07-12] MEDS: 0.9 % Sodium Chloride Flush 3 ML SYRINGE IVFLUSH ×3 (08:13→17:38)
[2024-07-12] MEDS: Fluticasone/Umeclidinium/Vilanterol 100/62.5/25 BLST.W.DEV 1 PUFF INHALE (08:15)
[2024-07-12] MEDS: Nicotine 14 MG PATCH.TD24 TRANSDERMA (08:16)
--- NOTE | 2024-07-12 08:31 | HO.ANESPROP2 ---
HPI - Anesthesia Eval Consult details Narrative: Left hip fracture PMFSH Active Problems Active Problems: All Active Problems Subcapital fracture of left hip (Acute) Delirium (Acute) Essential hypertension (Acute) Intractable pain (Acute) Contusion of hip, left (Acute) Chest wall contusion (Acute) Fall (Acute) Pulmonary edema (Acute) COPD exacerbation (Acute) NSTEMI (non-ST elevated myocardial infarction) (Acute) CHF (congestive heart failure) (Acute) Demand ischemia (Acute) COVID (Acute) Oral thrush (Acute) Past Medical History Medical History History of CAD (coronary artery disease) Peripheral vascular disease Chronic back pain GERD (gastroesophageal reflux disease) High cholesterol HTN (hypertension) Immune disorder COPD (chronic obstructive pulmonary disease) Multiple sclerosis Family History Family history of problems with anesthesia: No Surgical History Surgical History History of angioplasty History of heart artery stent History of Problems with Anesthesia: No Social History Social History Household Members: Spouse Housing: House Do you presently have visiting nurse or other home services: No Alcohol intake: never Comment: 1:1 sitter Patient Tobacco Use Status: Current everyday Tobacco user Tobacco use type: Cigarette Cigarette Packs Per Day: 1 Cigarettes Per Day: 20.0 Smoked in Last 30 Days: Yes Patient Interested in Nicotine Replacement: Yes Use of substances other than those prescribed or required for medical reasons: No Currently Displaying Signs/Symptoms of Drug Intoxication Withdrawal: No Advance Directives: Yes Advance Directives on File: Yes Advance Directives Date on File: 11/22/22 service: No Current occupational status: retired Meds Allergies Allergy/AdvReac Type Severity Reaction Status Date / Time codeine [CODEINE] Allergy Unknown Hives Verified 07/06/24 18:37 Active Medications: Current Medications Acetaminophen/Butalbital/Caffeine (Butalb/Acetamin/Caff 50/325/40 Tablet) 1 tab PO DAILY PRN PRN Reason: Headache Last Admin: 07/10/24 14:16 Dose: 1 tab Albuterol/Ipratropium (Albuterol/Iprat 2.5/0.5mg 3 Ml Ampul.Neb) 3 ml INHALE RQ4H WHILE AWAKE PRN PRN Reason: sob Last Admin: 07/10/24 05:39 Dose: 3 ml Amlodipine Besylate (Amlodipine Besylate 5 Mg Tablet) 5 mg PO DAILY [facility]; Protocol Last Admin: 07/12/24 08:10 Dose: 5 mg Aspirin (Aspirin Enteric Coated 81 Mg Tablet.) 81 mg PO DAILY [facility] Last Admin: 07/11/24 09:03 Dose: 81 mg Atorvastatin Calcium (Atorvastatin Calcium 80 Mg Tablet) 80 mg PO BEDTIME [facility] Last Admin: 07/11/24 20:23 Dose: 80 mg Bisacodyl (Bisacodyl 5 Mg Tablet.) 10 mg PO BEDTIME [facility] Bupropion HCl (Bupropion Hcl Xl 300 Mg Tab.Er.24h) 300 mg PO DAILY [facility] Last Admin: 07/12/24 08:12 Dose: 300 mg Buspirone HCl (Buspirone Hcl 10 Mg Tablet) 10 mg PO BID [facility] Last Admin: 07/12/24 08:12 Dose: 10 mg Calcium Carbonate (Calcium Carbonate 750 Mg Tab.Chew) 750 mg PO Q4H PRN PRN Reason: Heartburn Clopidogrel Bisulfate (Clopidogrel Bisulfate 75 Mg Tablet) 75 mg PO DAILY [facility] Last Admin: 07/11/24 08:50 Dose: 75 mg Cyclobenzaprine HCl (Cyclobenzaprine Hcl 10 Mg Tablet) 10 mg PO DAILY PRN PRN Reason: muscle spasms Doxycycline Monohydrate (Doxycycline Monohydrate 100 Mg Capsule) 100 mg PO BID [facility] Stop: 07/12/24 12:20 Last Admin: 07/12/24 08:12 Dose: 100 mg Fluticasone Propionate (Fluticasone Propionate Nasal 16 Gm [place]) 1 spray NOSTRIL-B BID PRN PRN Reason: allergies Fluticasone/Umeclidinium/Vilanterol (Fluticasone/Umeclidinium/Vilanterol 100/62.5/25 Blst.W.Dev) 1 puff INHALE RDAILY [facility] Last Admin: 07/12/24 08:15 Dose: 1 puff Haloperidol Lactate (Haloperidol Lactate 5 Mg/Ml Vial) 5 mg IM ONCE PRN PRN Reason: agitation Last Admin: 07/11/24 15:03 Dose: 5 mg Acetaminophen (Ofirmev) 1,000 mg in 100 mls @ 400 mls/hr IV Q6H [facility] Last Infusion: 07/12/24 05:54 Dose: Infused Piperacillin Sod/Tazobactam (Sod 4.5 gm/ Sodium Chloride) 100 mls @ 200 mls/hr IV Q6H [facility] Last Infusion: 07/12/24 05:57 Dose: Infused Cefazolin Sodium/Dextrose (Ancef) 2 gm in 50 mls @ 100 mls/hr IV PREOP ONE Stop: 07/12/24 08:44 Levalbuterol HCl (Levalbuterol Hcl 1.25 Mg/3 Ml Vial.Neb) 1.25 mg INHALE TID PRN PRN Reason: Shortness Of Breath Or Wheezing Magnesium Hydroxide (Milk Of Magnesia 30 Ml Oral.Susp) 30 ml PO DAILY PRN PRN Reason: Constipation Last Admin: 07/09/24 11:55 Dose: 30 ml Melatonin (Melatonin 3 Mg Tablet) 6 mg PO BEDTIME PRN PRN Reason: Insomnia Last Admin: 07/09/24 21:18 Dose: 6 mg Metoprolol Tartrate (Metoprolol Tartrate 50 Mg Tablet) 50 mg PO BID [facility]; Protocol Last Admin: 07/12/24 08:12 Dose: 50 mg Morphine Sulfate (Morphine Sulfate 2 Mg/Ml Cartridge) 3 mg IVPUSH Q4H PRN; Protocol PRN Reason: Pain, Severe (Pain Scale 7-10) Last Admin: 07/12/24 03:22 Dose: 3 mg Nicotine (Nicotine 14 Mg Patch.Td24) 14 mg TRANSDERMA DAILY [facility] Last Admin: 07/12/24 08:16 Dose: 14 mg Nystatin (Nystatin Oral Susp 500,000 Unit/5 Ml Oral.Susp) 200,000 unit PO QID [facility]; Protocol Last Admin: 07/12/24 08:08 Dose: 200,000 unit Oxycodone HCl (Oxycodone Hcl Immed Release 5 Mg Tablet) 10 mg PO Q6H PRN PRN Reason: Pain, Moderate(Pain Scale 4-6) Last Admin: 07/11/24 15:51 Dose: 10 mg Prednisone (Prednisone 10 Mg Tablet) 30 mg PO DAILY [facility]; Taper Stop: 07/18/24 08:59 Last Admin: 07/12/24 08:11 Dose: 30 mg Roflumilast (Roflumilast 500 Mcg Tablet) 500 mcg PO DAILY [facility] Last Admin: 07/12/24 08:12 Dose: 500 mcg Sertraline HCl (Sertraline Hcl 50 Mg Tablet) 50 mg PO DAILY [facility] Last Admin: 07/12/24 08:10 Dose: 50 mg Sodium Chloride (0.9 % Sodium Chloride Flush 3 Ml Syringe) 3 ml IVFLUSH QSHIFT [facility] Last Admin: 07/12/24 08:13 Dose: 3 ml Vitamin D (Cholecalciferol (Vitamin D3) 25 Mcg Tablet) 100 mcg PO DAILY [facility] Last Admin: 07/12/24 08:09 Dose: 100 mcg Home Medications ?Medication ?Instructions ?Recorded ?Confirmed ?Last Taken ?Type aspirin 81 mg capsule 81 mg PO DAILY 11/15/22 07/07/24 07/06/24 History buspirone 10 mg tablet 10 mg PO BID 11/15/22 07/07/24 07/06/24 History [id number] 1 cap PO DAILY PRN Headache 11/15/22 07/07/24 Unknown History 50 mg-300 mg-40 mg capsule cholecalciferol (vitamin D3) 50 100 mcg PO DAILY 11/15/22 07/07/24 07/06/24 History mcg (2,000 unit) capsule clopidogrel 75 mg tablet 75 mg PO DAILY 11/15/22 07/07/24 07/06/24 History erenumab-aooe 140 mg/mL 140 mg subcut Q28D 11/15/22 07/07/24 1 Week Ago History subcutaneous auto-injector ~06/30/24 (Aimovig Autoinjector) esomeprazole magnesium 40 mg 40 mg PO DAILY@0630 11/15/22 07/07/24 07/06/24 History capsule,delayed release fluticasone fur. 100 mcg-umeclid 1 ea inhalation DAILY 11/15/22 07/07/24 07/06/24 History 62.5 mcg-vilant 25 mcg inhalat.powder (Trelegy Ellipta) fluticasone propionate 50 1 spray intranasal BID PRN 11/15/22 07/07/24 2 Days Ago History mcg/actuation nasal allergies ~11/13/22 spray,suspension immun glob G 10 50 ml subcut MO 11/15/22 07/07/24 06/29/24 History gram/50mL(20%)-gly-IgA over 50 mcg/mL subcutaneous suzanna (Cuvitru) levalbuterol HCl 1.25 mg/0.5 mL 1.25 mg inhalation TID PRN 11/15/22 07/07/24 Unknown History solution for nebulization Shortness Of Breath Or Wheezing metoprolol tartrate 25 mg tablet 25 mg PO BID 11/15/22 07/07/24 07/06/24 History nitroglycerin 0.4 mg sublingual 0.4 mg sublingual Q5M PRN Chest 11/15/22 07/07/24 2 Days Ago History tablet Pain ~11/13/22 ocrelizumab 30 mg/mL intravenous 600 mg IV [id number] 11/15/22 07/07/24 6 Months Ago History solution ~01/05/24 oxycodone-acetaminophen 10 mg-325 1 tab PO Q4H PRN Pain (Scale Score 11/15/22 07/07/24 2 Days Ago History mg tablet 4-6) ~11/13/22 bupropion HCl 150 mg tablet,12 hr 150 mg PO BID 07/07/24 07/07/24 07/06/24 History sustained-release cyclobenzaprine 10 mg tablet 10 mg PO DAILY PRN muscle spasms 07/07/24 07/07/24 Unknown History ipratropium 0.5 mg-albuterol 3 mg 3 ml inhalation QID PRN wheezing 07/07/24 07/07/24 Unknown History (2.5 mg base)/3 mL nebulization soln roflumilast 500 mcg tablet 500 mcg PO DAILY 07/07/24 07/07/24 07/06/24 History rosuvastatin 40 mg tablet 40 mg PO BEDTIME 07/07/24 07/07/24 07/05/24 History sertraline 50 mg tablet 50 mg PO DAILY 07/07/24 07/07/24 Unknown History Exam Height,Weight and Vital Signs: Height 5 ft 1 in Weight 59.6 kg Last Vital Signs Temp 97.2 F 07/12/24 07:13 Pulse 119 H 07/12/24 08:18 Resp 16 07/12/24 08:18 BP 180/61 H 07/12/24 07:13 Pulse Ox 92 07/12/24 07:13 O2 Del Method Nasal Cannula 07/12/24 07:13 O2 Flow Rate 2 07/12/24 07:13 Pertinent Lab Results Pertinent Lab Results: Laboratory Tests 07/06/24 07/06/24 07/07/24 19:15 19:43 05:47 WBC 17.5 H 14.3 H RBC 5.12 5.35 Hgb 15.5 D 16.1 H Hct 46.2 49.0 H MCV 90.2 91.6 MCH 30.3 30.1 MCHC 33.5 32.9 RDW 13.0 13.1 Plt Count 267 251 MPV 9.8 10.6 Immature Gran % (Auto) 0.9 H 0.6 H Neut % (Auto) 83.0 H 83.0 H Lymph % (Auto) 10.6 L 11.3 L [place] % (Auto) 5.1 4.6 Eos % (Auto) 0.2 0.2 Baso % (Auto) 0.2 0.3 Lymph # (Auto) 1.9 1.6 [place] # (Auto) 0.9 0.7 Eos # (Auto) 0.0 0.0 Baso # (Auto) 0.0 0.0 Abs Immat Gran (auto) 0.16 H 0.08 H Absolute Neuts (auto) 14.5 H 11.9 H Absolute Nucleated RBC 0.000 0.000 Nucleated RBC % (auto) 0.0 0.0 PT 10.7 L INR 0.9 APTT 30.6 VBG pH VBG pCO2 VBG pO2 VBG HCO3 VBG O2 Saturation VBG Base Excess Sodium 141 140 Potassium 4.0 D 4.6 Chloride 105 101 Carbon Dioxide 26 27 Anion Gap 14 17 BUN 8 L 8 L Creatinine 0.69 0.74 Estim Creat Clear Calc 61.0 57.0 Estimated GFR > 60 > 60 Random Glucose 101 138 H Calcium 9.8 9.6 Total Bilirubin 0.4 AST 22 ALT 20 Alkaline Phosphatase 153 H Troponin I High Sens 2.8 B-Natriuretic Peptide Total Protein 7.8 Albumin 4.4 Lipase 8 Procalcitonin Urine Color Yellow Urine Appearance Clear Urine pH 6.0 Ur Specific [place] <= 1.005 Urine Protein Negative Urine Glucose (UA) Negative Urine Ketones Negative Urine Blood Trace Urine Nitrite Negative Ur Leukocyte Esterase Negative Urine RBC 0-2 Urine WBC 0-5 Ur Squamous Epith Cells 0-2 Urine Bacteria None Seen Hyaline Casts 0-2 Influenza Type A (PCR) NEGATIVE Influenza Type B (PCR) NEGATIVE RSV RNA Qual (PCR) NEGATIVE SARS-CoV-2 RNA (RT-PCR) NEGATIVE 07/07/24 07/09/24 07/10/24 15:15 06:23 06:29 WBC 20.1 H 19.5 H RBC 4.14 L D 4.14 L Hgb 13.0 12.7 Hct 37.7 D 37.9 MCV 91.1 91.5 MCH 31.4 30.7 MCHC 34.5 33.5 RDW 12.9 13.0 Plt Count 210 258 MPV 10.0 9.8 Immature Gran % (Auto) 1.0 H Neut % (Auto) 87.6 H Lymph % (Auto) 5.8 L [place] % (Auto) 5.4 Eos % (Auto) 0.1 Baso % (Auto) 0.1 Lymph # (Auto) 1.1 L [place] # (Auto) 1.1 Eos # (Auto) 0.0 Baso # (Auto) 0.0 Abs Immat Gran (auto) 0.19 H Absolute Neuts (auto) 17.1 H Absolute Nucleated RBC 0.000 0.000 Nucleated RBC % (auto) 0.0 0.0 PT INR APTT VBG pH VBG pCO2 VBG pO2 VBG HCO3 VBG O2 Saturation VBG Base Excess Sodium 137 137 Potassium 3.9 3.5 Chloride 103 102 Carbon Dioxide 26 28 Anion Gap 12 11 L BUN 10 8 L Creatinine 0.61 0.55 Estim Creat Clear Calc 69.1 76.6 Estimated GFR > 60 > 60 Random Glucose 146 H 123 H Calcium 9.1 8.4 D Total Bilirubin 0.4 AST 95 H ALT 114 H Alkaline Phosphatase 148 H Troponin I High Sens B-Natriuretic Peptide 533 H Total Protein 6.2 L Albumin 3.4 L Lipase Procalcitonin Urine Color Yellow Urine Appearance Clear Urine pH 6.0 Ur Specific [place] >= 1.030 H Urine Protein 30 (1+) H Urine Glucose (UA) Negative Urine Ketones Negative Urine Blood Negative Urine Nitrite Negative Ur Leukocyte Esterase Negative Urine RBC 0-2 Urine WBC 0-5 Ur Squamous Epith Cells 0-2 Urine Bacteria None Seen Hyaline Casts 0-2 Influenza Type A (PCR) Influenza Type B (PCR) RSV RNA Qual (PCR) SARS-CoV-2 RNA (RT-PCR) 07/10/24 07/10/24 07/11/24 16:52 23:31 08:47 WBC 22.6 H RBC 4.78 Hgb 14.6 Hct 41.9 MCV 87.7 MCH 30.5 MCHC 34.8 RDW 12.6 Plt Count 338 D MPV 9.6 Immature Gran % (Auto) Neut % (Auto) Lymph % (Auto) [place] % (Auto) Eos % (Auto) Baso % (Auto) Lymph # (Auto) [place] # (Auto) Eos # (Auto) Baso # (Auto) Abs Immat Gran (auto) Absolute Neuts (auto) Absolute Nucleated RBC 0.000 Nucleated RBC % (auto) 0.0 PT INR APTT VBG pH 7.44 H VBG pCO2 52 VBG pO2 44 VBG HCO3 36 H VBG O2 Saturation 77.0 VBG Base Excess 10.3 Sodium 136 Potassium 3.2 L Chloride 97 Carbon Dioxide 30 H Anion Gap 12 BUN 10 Creatinine 0.59 Estim Creat Clear Calc 71.4 Estimated GFR > 60 Random Glucose 111 Calcium 9.6 D Total Bilirubin 0.9 AST 65 H ALT 119 H Alkaline Phosphatase 146 H Troponin I High Sens B-Natriuretic Peptide 482 H Total Protein 6.8 Albumin 3.8 Lipase Procalcitonin 0.07 Urine Color Yellow Urine Appearance Clear Urine pH 7.5 Ur Specific [place] <= 1.005 Urine Protein Trace Urine Glucose (UA) 250 H Urine Ketones Negative Urine Blood Negative Urine Nitrite Negative Ur Leukocyte Esterase Negative Urine RBC 0-2 Urine WBC 0-5 Ur Squamous Epith Cells 0-2 Urine Bacteria None Seen Hyaline Casts 0-2 Influenza Type A (PCR) Influenza Type B (PCR) RSV RNA Qual (PCR) SARS-CoV-2 RNA (RT-PCR) 07/11/24 07/12/24 08:52 06:28 WBC RBC Hgb Hct MCV MCH MCHC RDW Plt Count MPV Immature Gran % (Auto) Neut % (Auto) Lymph % (Auto) [place] % (Auto) Eos % (Auto) Baso % (Auto) Lymph # (Auto) [place] # (Auto) Eos # (Auto) Baso # (Auto) Abs Immat Gran (auto) Absolute Neuts (auto) Absolute Nucleated RBC Nucleated RBC % (auto) PT INR APTT VBG pH 7.48 H VBG pCO2 52 VBG pO2 26 VBG HCO3 39 H VBG O2 Saturation 42.0 VBG Base Excess 13.2 Sodium 142 Potassium 3.1 L Chloride 100 Carbon Dioxide 27 Anion Gap 18 BUN 20 H Creatinine 0.70 Estim Creat Clear Calc 60.2 Estimated GFR > 60 Random Glucose 137 H Calcium 9.3 Total Bilirubin AST ALT Alkaline Phosphatase Troponin I High Sens B-Natriuretic Peptide 305 H Total Protein Albumin Lipase Procalcitonin Urine Color Urine Appearance Urine pH Ur Specific [place] Urine Protein Urine Glucose (UA) Urine Ketones Urine Blood Urine Nitrite Ur Leukocyte Esterase Urine RBC Urine WBC Ur Squamous Epith Cells Urine Bacteria Hyaline Casts Influenza Type A (PCR) Influenza Type B (PCR) RSV RNA Qual (PCR) SARS-CoV-2 RNA (RT-PCR) Airway Mallampati Class: II TM Dist: >3cm Neck ROM: Full Loose/Missing/Broken Teeth: No Heart: RRR Lungs: CTA Assessment and Plan Assessment Anesthesia Assessment: Anesthesia Plan Discussed and Chart Reviewed Final Anesthetic Review Family History of Problems with Anesthesia: No History of Problems with Anesthesia: No NPO: Yes ASA Class: III Final Preanesthetic Review: No Changes in Pt Med Stat, Meds/Allgs Chart Reviewed, Consent Obtained/Reviewed and Anes Risks/Benef Reviewed Patient Risk: Intermediate Procedure Risk: Intermediate Anesthetic Plan Anesthetic Plan: GA Disposition: Standard PACU
--- NOTE | 2024-07-12 10:20 | HO.PM.IMPN ---
Subjective Subjective Date of Service: 07/12/24 Interval History: L hip pain and X-ray found femoral neck fracture on 07/11, had operative repair today pt seems delirious and has sitter now Physical Exam Vital Signs: Vital Signs: Last Vital Signs Temp 97.2 F 07/12/24 07:13 Pulse 119 H 07/12/24 08:18 Resp 16 07/12/24 08:18 BP 180/61 H 07/12/24 07:13 Pulse Ox 92 07/12/24 07:13 O2 Del Method Nasal Cannula 07/12/24 07:13 O2 Flow Rate 2 07/12/24 07:13 BMI result Body Mass Index 24.8 Const: Other: Gen: in no acute distress HEENT: sclera anicteric, moist mucus membranes Neck: supple Lungs: bilateral inspiratory crackles Heart: regular rate and rhythm, no murmurs Abd: soft, non-tender, non-distended Ext: no edema Skin: warm/well-perfused, bruising over L hip Neuro: alert and oriented x2, no focal findings Psych: appropriate affect Objective Data Active Medications Acetaminophen/Butalbital/Caffeine (Butalb/Acetamin/Caff 50/325/40 Tablet) 1 tab PO DAILY PRN PRN Reason: Headache Last Admin: 07/10/24 14:16 Dose: 1 tab Documented By: MED Albuterol/Ipratropium (Albuterol/Iprat 2.5/0.5mg 3 Ml Ampul.Neb) 3 ml INHALE RQ4H WHILE AWAKE PRN PRN Reason: sob Last Admin: 07/10/24 05:39 Dose: 3 ml Documented By: MARLYS Albuterol/Ipratropium (Albuterol/Iprat 2.5/0.5mg 3 Ml Ampul.Neb) 3 ml INHALE ONCE PRN PRN Reason: Bronchospasm/wheezing Stop: 07/12/24 14:33 Amlodipine Besylate (Amlodipine Besylate 5 Mg Tablet) 5 mg PO DAILY [facility]; Protocol Last Admin: 07/12/24 08:10 Dose: 5 mg Documented By: FITZ Aspirin (Aspirin Enteric Coated 81 Mg Tablet.) 81 mg PO DAILY [facility] Last Admin: 07/11/24 09:03 Dose: 81 mg Documented By: FITZ Atorvastatin Calcium (Atorvastatin Calcium 80 Mg Tablet) 80 mg PO BEDTIME [facility] Last Admin: 07/11/24 20:23 Dose: 80 mg Documented By: BROMelchor Bisacodyl (Bisacodyl 5 Mg Tablet.Dr) 10 mg PO BEDTIME [facility] Bupropion HCl (Bupropion Hcl Xl 300 Mg Tab.Er.24h) 300 mg PO DAILY [facility] Last Admin: 07/12/24 08:12 Dose: 300 mg Documented By: FITZ Buspirone HCl (Buspirone Hcl 10 Mg Tablet) 10 mg PO BID [facility] Last Admin: 07/12/24 08:12 Dose: 10 mg Documented By: FITZ Calcium Carbonate (Calcium Carbonate 750 Mg Tab.Chew) 750 mg PO Q4H PRN PRN Reason: Heartburn Clopidogrel Bisulfate (Clopidogrel Bisulfate 75 Mg Tablet) 75 mg PO DAILY [facility] Last Admin: 07/11/24 08:50 Dose: 75 mg Documented By: FITZ Cyclobenzaprine HCl (Cyclobenzaprine Hcl 10 Mg Tablet) 10 mg PO DAILY PRN PRN Reason: muscle spasms Doxycycline Monohydrate (Doxycycline Monohydrate 100 Mg Capsule) 100 mg PO BID [facility] Stop: 07/12/24 12:20 Last Admin: 07/12/24 08:12 Dose: 100 mg Documented By: FITZ Fentanyl (Fentanyl Citrate/Pf 100 Mcg/2 Ml Vial) 50 mcg IVPUSH Q5M PRN PRN Reason: Pain, Severe (Pain Scale 7-10) Stop: 07/12/24 14:33 Fluticasone Propionate (Fluticasone Propionate Nasal 16 Gm [place]) 1 spray NOSTRIL-B BID PRN PRN Reason: allergies Fluticasone/Umeclidinium/Vilanterol (Fluticasone/Umeclidinium/Vilanterol 100/62.5/25 Blst.W.Dev) 1 puff INHALE RDAILY [facility] Last Admin: 07/12/24 08:15 Dose: 1 puff Documented By: ABRAN Haloperidol Lactate (Haloperidol Lactate 5 Mg/Ml Vial) 5 mg IM ONCE PRN PRN Reason: agitation Last Admin: 07/11/24 15:03 Dose: 5 mg Documented By: FITZ Hydromorphone HCl (Hydromorphone Hcl 0.5 Mg/0.5 Ml Syringe) 0.5 mg IVPUSH Q5M PRN PRN Reason: Pain, Moderate to Severe (Pain Scale 4-10) Stop: 07/12/24 14:33 Acetaminophen (Ofirmev) 1,000 mg in 100 mls @ 400 mls/hr IV Q6H [facility] Last Infusion: 07/12/24 05:54 Dose: Infused Documented By: JUAN Piperacillin Sod/Tazobactam (Sod 4.5 gm/ Sodium Chloride) 100 mls @ 200 mls/hr IV Q6H [facility] Last Infusion: 07/12/24 05:57 Dose: Infused Documented By: JUAN Acetaminophen (Ofirmev) 1,000 mg in 100 mls @ 400 mls/hr IV ONCE PRN PRN Reason: Pain, Mild (Pain Scale 1-3) Stop: 07/12/24 14:33 Levalbuterol HCl (Levalbuterol Hcl 1.25 Mg/3 Ml Vial.Neb) 1.25 mg INHALE TID PRN PRN Reason: Shortness Of Breath Or Wheezing Magnesium Hydroxide (Milk Of Magnesia 30 Ml Oral.Susp) 30 ml PO DAILY PRN PRN Reason: Constipation Last Admin: 07/09/24 11:55 Dose: 30 ml Documented By: JEANNINE Melatonin (Melatonin 3 Mg Tablet) 6 mg PO BEDTIME PRN PRN Reason: Insomnia Last Admin: 07/09/24 21:18 Dose: 6 mg Documented By: CAROL ANN Metoprolol Tartrate (Metoprolol Tartrate 50 Mg Tablet) 50 mg PO BID [facility]; Protocol Last Admin: 07/12/24 08:12 Dose: 50 mg Documented By: FITZ Morphine Sulfate (Morphine Sulfate 2 Mg/Ml Cartridge) 3 mg IVPUSH Q4H PRN; Protocol PRN Reason: Pain, Severe (Pain Scale 7-10) Last Admin: 07/12/24 08:28 Dose: 3 mg Documented By: FITZ Naloxone HCl (Naloxone Hcl 0.4 Mg/Ml Vial) 0.04 mg IVPUSH Q5M PRN PRN Reason: Excessive sedation or RR < 8 Nicotine (Nicotine 14 Mg Patch.Td24) 14 mg TRANSDERMA DAILY [facility] Last Admin: 07/12/24 08:16 Dose: 14 mg Documented By: FITZ Nystatin (Nystatin Oral Susp 500,000 Unit/5 Ml Oral.Susp) 200,000 unit PO QID [facility]; Protocol Last Admin: 07/12/24 08:08 Dose: 200,000 unit Documented By: FITZ Ondansetron HCl (Ondansetron Hcl 4 Mg/2 Ml Vial) 4 mg IVPUSH ONCE PRN PRN Reason: Nausea and Vomiting Stop: 07/12/24 14:33 Oxycodone HCl (Oxycodone Hcl Immed Release 5 Mg Tablet) 10 mg PO Q6H PRN PRN Reason: Pain, Moderate(Pain Scale 4-6) Last Admin: 07/11/24 15:51 Dose: 10 mg Documented By: FITZ Prednisone (Prednisone 10 Mg Tablet) 30 mg PO DAILY [facility]; Taper Stop: 07/18/24 08:59 Last Admin: 07/12/24 08:11 Dose: 30 mg Documented By: FITZ Roflumilast (Roflumilast 500 Mcg Tablet) 500 mcg PO DAILY [facility] Last Admin: 07/12/24 08:12 Dose: 500 mcg Documented By: FITZ Sertraline HCl (Sertraline Hcl 50 Mg Tablet) 50 mg PO DAILY [facility] Last Admin: 07/12/24 08:10 Dose: 50 mg Documented By: FITZ Sodium Chloride (0.9 % Sodium Chloride Flush 3 Ml Syringe) 3 ml IVFLUSH QSHIFT [facility] Last Admin: 07/12/24 08:13 Dose: 3 ml Documented By: FITZ Vitamin D (Cholecalciferol (Vitamin D3) 25 Mcg Tablet) 100 mcg PO DAILY [facility] Last Admin: 07/12/24 08:09 Dose: 100 mcg Documented By: FITZ Labs 07/11/24 08:47 07/12/24 06:28 Labs: Laboratory Results - last 24 hr 07/12/24 06:28 Anion Gap 18 Estim Creat Clear Calc 60.2 Estimated GFR > 60 Random Glucose 137 H Calcium 9.3 B-Natriuretic Peptide 305 H Assessment and Plan (1) Chest wall contusion: Status: Acute Plan 73yo F with COPD, chronic hypoxia on 2L O2, mood disorder, HTN, chronic opioid use, multiple sclerosis, tobacco abuse presented after fall, admitted for pain control, ultimately found to have L femoral neck fx L femoral neck fx found when she started complaining of left hip pain on 07/11 - s/p operative repair 07/12 -IV tylenol for pain -ASA for dvt prophylaxis Delirium--likely multifactorial, pneumonia - will start piperacillin-tazobactam today (07/11-), obtain PHARMACY HELPER consultation postop, repeat CT in 4 wk COPD exacerbation - completes doxycycline, taper steroids, continue nebs + controller inhaler + roflumilast acute/chronic hypoxic resp failure - currently on 3L, wean as tolerated to home dose CAD PAD - DAPT on hold as above; continue statin mood disorder - continue bupropion, buspirone, sertraline HTN - continue metoprolol tartate + amlodipine VTE ppx - SCDs dispo - STR recommended In my clinical judgment, the patient requires continued inpatient hospitalization for the following reasons: IV ABX, hip fracture requiring operative fixation Total time managing care of this patient today: 50 minutes. Quality Stroke Does the patient have a stroke diagnosis?: No VTE Prior VTE?: No VTE Risk Level:: Medical - moderate - high VTE Device Contraindication: N/A - Device Ordered VTE Drug Contraindication: Treatment Not Indicated
--- NOTE | 2024-07-12 10:41 | P.BOP_ITS ---
Brief Operative Note Date of Service: 07/12/24 Pre-op diagnosis: Nondisplaced left femoral neck fracture Post-op diagnosis: same Procedure: Percutaneous pinning of nondisplaced left femoral neck fracture Implants: 3 cannulated screws measuring 80 mm in length, 80 mm in length and 90 mm in length each measuring 6.5 mm in diameter; 2 washers Surgeon: Gino Rodriguez MD Anesthesia: GLMA Was an Project Officer used for this Procedure?: No Estimated blood loss (mL): 100 Pathology: none sent Condition: stable Disposition: PACU
--- NOTE | 2024-07-12 10:42 | W.PM.OPN ---
Operative Note Operative Note Date of Service: 07/12/24 Narrative: After the patient was identified as Isabela Leslie and her left hip was initialed by myself they were brought to the operating room where general anesthesia was induced by the anesthesiologist in routine fashion. The patient was given 2 g of IV Ancef for infection prophylaxis. The patient was then gently transferred from the hospital bed onto the fracture table. The patient's right lower extremity was placed into the well leg damico. The patient's left lower extremity was placed in gentle in-line traction with their patella parallel to the floor. All bony prominences were well padded. C-arm AP and lateral radiographs were taken to confirm good fracture reduction. The patient's left hip region was prepped and draped in sterile fashion. A formal time-out was completed. A #10 scalpel blade was used to make a 5 cm incision at the level of the lesser trochanter along the lateral aspect of the patient's thigh. A guidewire was then placed into the inferior aspect of the femoral neck on the AP view and the center of the femoral neck on the lateral view. A 2nd guidewire was then placed into the superior aspect of the femoral neck on the AP view and the posterior aspect of the femoral neck on the lateral view. A 3rd guidewire was then placed into the superior aspect of the femoral neck on the AP view and the anterior aspect of the femoral neck on the lateral view. The lengths of the 3 guidewires were measured. The inferior guidewire measured 90 mm in length, the superior/posterior guidewire measured 80 mm in length and the superior/anterior guidewire measured 80 mm in length. The 3 screws were placed over the guidewires without difficulty. The 90 mm screw was somewhat long. The screw was replaced with an 85 mm screw which was short. Thus, the 90 mm screw was reinserted with 2 washers to reduce its length into the femoral head. The screw length was now correct. The guidewires were removed. Final C-arm AP and lateral radiographs were taken to confirm good fracture reduction as well as hardware placement. The wound was irrigated with copious amounts of normal saline solution. The fascia jessica was closed with #1 Vicryl [id number] interrupted suture. The wound was once again irrigated. The subcutaneous tissues were closed with 0 Vicryl and 2-0 Vicryl interrupted suture. Skin was closed with skin muriel. Dry sterile dressing was placed over the incision. The patient was gently transferred from the fracture table onto their hospital bed. The patient was awoken and extubated in the operating room. The patient was transferred to the recovery room in stable condition.
[2024-07-12] MEDS: oxyCODONE HCl Immed Release 5 MG TABLET 10 MG PO ×2 (13:10→20:28)
[2024-07-12] MEDS: ceFAZolin Sodium/Dextrose,Iso 2 GM/50 ML PIGGYBACK IV (16:10)
[2024-07-12] MEDS: Aspirin 325 MG TABLET PO (20:28)
[2024-07-12] MEDS: bisacodyL 5 MG TABLET.DR 10 MG PO (20:29)
[2024-07-12] MEDS: Atorvastatin Calcium 80 MG TABLET PO (20:30)
[2024-07-13] VITALS (11 sets, daily range): BP systolic 146–188; BP diastolic 66–88; PULSE 74–91; RESP 16–18; TEMP 36.2–37.1; O2SAT 90–95
[2024-07-13] MEDS: 0.9 % Sodium Chloride Flush 3 ML SYRINGE IVFLUSH ×3 (00:01→19:33)
[2024-07-13] MEDS: ceFAZolin Sodium/Dextrose,Iso 2 GM/50 ML PIGGYBACK IV (00:50)
[2024-07-13] MEDS: Piperacillin Sodium/Tazobactam 4.5 GM in 0.9 % Sodium Chloride 100 ML IV ×4 (01:26→18:37)
[2024-07-13] MEDS: Morphine Sulfate 2 MG/ML CARTRIDGE 3 MG IVPUSH (04:47)
[2024-07-13] MEDS: oxyCODONE HCl Immed Release 5 MG TABLET 10 MG PO ×4 (06:21→18:37)
[2024-07-13 07:00] LABS: Hematocrit 38.4 % (37.0-47.0); Hemoglobin 13.1 g/dl (12.0-16.0); Mean Corpuscular HGB Conc 34.1 g/dl (31.0-35.0); Mean Corpuscular Hemoglobin 30.1 pg (27.0-33.0); Mean Corpuscular Volume 88.3 fL (80.0-98.0); Mean Platelet Volume 10.1 fL (9.4-12.3); Platelet Count 341 X10*3/uL (160-400); Red Blood Count 4.35 X10*6/uL (4.20-5.50); Red Cell Distribution Width 12.9 % (11.0-16.0)
[2024-07-13 07:33] LABS: White Blood Count 30.3 X10*3/uL (4.8-10.8)
[2024-07-13 07:38] LABS: Anion Gap 14 (12-20); Blood Urea Nitrogen 25 mg/dL (9-16); Calcium 8.3 mg/dL (8.4-10.2); Carbon Dioxide 25 mmol/L (22-29); Chloride 103 mmol/L (96-108); Creatinine Clr Calc Pharmacy 66.9; Estimated Glomerular Filt Rate > 60; Glucose Random 200 mg/dL (60-115); Sodium 139 mmol/L (135-145)
[2024-07-13] MEDS: Fluticasone/Umeclidinium/Vilanterol 100/62.5/25 BLST.W.DEV 1 PUFF INHALE (08:08)
[2024-07-13 08:09] LABS: C Reactive Protein 22.19 mg/dL (< or = 0.50)
[2024-07-13 08:11] LABS: Procalcitonin 0.16 ng/mL
[2024-07-13 08:12] LABS: Potassium 2.9 mmol/L (3.3-5.1)
--- NOTE | 2024-07-13 08:24 | PM.PNORT ---
Subjective Subjective Date of Service: 07/13/24 Interval history: Postop day 1 status post CRPP of left hip with Dr. Rodriguez Patient resting in bed this morning Patient does report significant pain in the left hip No acute events overnight No other acute complaints or concerns at this time Physical Exam Vital Signs: Vital Signs: Last Vital Signs Temp 98.4 F 07/13/24 07:00 Pulse 91 07/13/24 08:10 Resp 18 07/13/24 08:10 BP 164/72 H 07/13/24 07:00 Pulse Ox 91 L 07/13/24 07:00 O2 Del Method Nasal Cannula 07/13/24 07:00 O2 Flow Rate 4 07/13/24 07:00 BMI result Body Mass Index 24.8 Extrem: Other: Dressing on left hip clean, dry, intact No evidence of surrounding erythema, ecchymosis No evidence of infection Patient is able to flex and extend the digits of the left foot without difficulty Compartments soft, nontender Distal sensation intact Capillary refill brisk Procedures Date of Service Date of Service: 07/13/24 Progress Note: A&P Assessment and plan (1) Subcapital fracture of left hip: Status: Acute Plan 1. Status post CRPP of the left hip Continue pain management, consider change in pain medication due to uncontrolled pain Continue aspirin for DVT prophylaxis PT/OT evaluations pending Dispo planning-pain management, medical clearance, PT/OT recommendations Continue with all other recommendations per Medicine Time Spent With Patient Time: Total time managing care of this patient today ____ minutes. Quality Stroke Does the patient have a stroke diagnosis?: No VTE Prior VTE?: No VTE Risk Level:: Medical - moderate - high VTE Device Contraindication: N/A - Device Ordered VTE Drug Contraindication: Treatment Not Indicated
[2024-07-13] MEDS: Potassium Chloride Packet 20 MEQ PACKET 40 MEQ PO (08:52)
[2024-07-13] MEDS: Nicotine 14 MG PATCH.TD24 TRANSDERMA (08:54)
[2024-07-13] MEDS: Potassium Chloride/H20 10 MEQ/100 ML PIGGYBACK 100 MEQ IV ×4 (08:55→15:40)
[2024-07-13] MEDS: Acetaminophen 1,000 MG/100 ML PIGGYBACK 400 MG IV ×3 (08:56→21:05)
[2024-07-13] MEDS: Roflumilast 500 MCG TABLET PO (09:09)
[2024-07-13] MEDS: predniSONE 10 MG TABLET PO (09:10)
[2024-07-13] MEDS: amLODIPine Besylate 5 MG TABLET PO (09:10)
[2024-07-13] MEDS: Sertraline HCL 50 MG TABLET PO (10:31)
[2024-07-13] MEDS: Nystatin Oral Susp 500,000 UNIT/5 ML ORAL.SUSP 200000 UNIT PO ×4 (10:32→21:06)
--- NOTE | 2024-07-13 13:42 | HO.PM.IMPN ---
Subjective Subjective Date of Service: 07/13/24 Interval History: per granddaughter pt historically gets delirious with hallucinations from morphine coughing; states breathing is about the same; ongoing pain of L hip POD#1 CRPP Review of Systems Review of Systems: Yes all other systems are reviewed and are negative Physical Exam Vital Signs: Vital Signs: Last Vital Signs Temp 98.8 F 07/13/24 11:55 Pulse 74 07/13/24 11:55 Resp 18 07/13/24 11:55 BP 186/80 H 07/13/24 11:55 Pulse Ox 95 07/13/24 11:55 O2 Del Method Nasal Cannula 07/13/24 11:55 O2 Flow Rate 4 07/13/24 11:55 BMI result Body Mass Index 24.8 Gen: in no acute distress HEENT: sclera anicteric, moist mucus membranes Neck: supple Lungs: bilateral inspiratory crackles Heart: regular rate and rhythm, no murmurs Abd: soft, non-tender, non-distended Ext: no edema Skin: warm/well-perfused, bruising over L hip Neuro: alert and oriented x3, no focal findings Psych: appropriate affect Objective Data Active Medications Acetaminophen/Butalbital/Caffeine (Butalb/Acetamin/Caff 50/325/40 Tablet) 1 tab PO DAILY PRN PRN Reason: Headache Last Admin: 07/10/24 14:16 Dose: 1 tab Documented By: MED Albuterol/Ipratropium (Albuterol/Iprat 2.5/0.5mg 3 Ml Ampul.Neb) 3 ml INHALE RQ4H WHILE AWAKE PRN PRN Reason: sob Last Admin: 07/10/24 05:39 Dose: 3 ml Documented By: MARLYS Amlodipine Besylate (Amlodipine Besylate 5 Mg Tablet) 5 mg PO DAILY [facility]; Protocol Last Admin: 07/13/24 09:10 Dose: 5 mg Documented By: ELY Aspirin (Aspirin 325 Mg Tablet) 325 mg PO BID [facility] Last Admin: 07/13/24 10:43 Dose: Not Given Documented By: ELY Non-Admin Reason: Patient Condition Contraindication Atorvastatin Calcium (Atorvastatin Calcium 80 Mg Tablet) 80 mg PO BEDTIME [facility] Last Admin: 07/12/24 20:30 Dose: 80 mg Documented By: JONO Bisacodyl (Bisacodyl 5 Mg Tablet.Dr) 10 mg PO BEDTIME [facility] Last Admin: 07/12/24 20:29 Dose: 10 mg Documented By: JONO Bupropion HCl (Bupropion Hcl Xl 300 Mg Tab.Er.24h) 300 mg PO DAILY [facility] Last Admin: 07/13/24 10:44 Dose: Not Given Documented By: ELY Non-Admin Reason: Patient Condition Contraindication Buspirone HCl (Buspirone Hcl 10 Mg Tablet) 10 mg PO BID [facility] Last Admin: 07/13/24 10:44 Dose: Not Given Documented By: ELY Non-Admin Reason: Patient Condition Contraindication Calcium Carbonate (Calcium Carbonate 750 Mg Tab.Chew) 750 mg PO Q4H PRN PRN Reason: Heartburn Clopidogrel Bisulfate (Clopidogrel Bisulfate 75 Mg Tablet) 75 mg PO DAILY [facility] Last Admin: 07/13/24 10:44 Dose: Not Given Documented By: ELY Non-Admin Reason: Patient Condition Contraindication Cyclobenzaprine HCl (Cyclobenzaprine Hcl 10 Mg Tablet) 10 mg PO DAILY PRN PRN Reason: muscle spasms Fluticasone Propionate (Fluticasone Propionate Nasal 16 Gm [place]) 1 spray NOSTRIL-B BID PRN PRN Reason: allergies Fluticasone/Umeclidinium/Vilanterol (Fluticasone/Umeclidinium/Vilanterol 100/62.5/ Blst.W.Dev) 1 puff INHALE RDAILY [facility] Last Admin: 07/13/24 08:08 Dose: 1 puff Documented By: ABRAN Haloperidol Lactate (Haloperidol Lactate 5 Mg/Ml Vial) 5 mg IM ONCE PRN PRN Reason: agitation Last Admin: 07/11/24 15:03 Dose: 5 mg Documented By: FITZ Piperacillin Sod/Tazobactam (Sod 4.5 gm/ Sodium Chloride) 100 mls @ 200 mls/hr IV Q6H [facility] Last Admin: 07/13/24 13:07 Dose: 200 mls/hr Documented By: ELY Acetaminophen (Ofirmev) 1,000 mg in 100 mls @ 400 mls/hr IV Q6H [facility] Stop: 07/14/24 08:29 Last Infusion: 07/13/24 09:45 Dose: Infused Documented By: ELY Levalbuterol HCl (Levalbuterol Hcl 1.25 Mg/3 Ml Vial.Neb) 1.25 mg INHALE TID PRN PRN Reason: Shortness Of Breath Or Wheezing Magnesium Hydroxide (Milk Of Magnesia 30 Ml Oral.Susp) 30 ml PO DAILY PRN PRN Reason: Constipation Last Admin: 07/09/24 11:55 Dose: 30 ml Documented By: JEANNINE Melatonin (Melatonin 3 Mg Tablet) 6 mg PO BEDTIME PRN PRN Reason: Insomnia Last Admin: 07/09/24 21:18 Dose: 6 mg Documented By: CAROL ANN Metoprolol Tartrate (Metoprolol Tartrate 50 Mg Tablet) 50 mg PO BID [facility]; Protocol Last Admin: 07/13/24 10:44 Dose: Not Given Documented By: ELY Non-Admin Reason: Patient Condition Contraindication Nicotine (Nicotine 14 Mg Patch.Td24) 14 mg TRANSDERMA DAILY [facility] Last Admin: 07/13/24 08:54 Dose: 14 mg Documented By: ELY Nystatin (Nystatin Oral Susp 500,000 Unit/5 Ml Oral.Susp) 200,000 unit PO QID [facility]; Protocol Last Admin: 07/13/24 12:54 Dose: 200,000 unit Documented By: ELY Oxycodone HCl (Oxycodone Hcl Immed Release 5 Mg Tablet) 10 mg PO Q4H PRN PRN Reason: Pain, Moderate(Pain Scale 4-6) Last Admin: 07/13/24 10:28 Dose: 10 mg Documented By: ELY Prednisone (Prednisone 10 Mg Tablet) 30 mg PO DAILY [facility]; Taper Stop: 07/18/24 08:59 Last Admin: 07/13/24 09:10 Dose: 30 mg Documented By: ELY Roflumilast (Roflumilast 500 Mcg Tablet) 500 mcg PO DAILY [facility] Last Admin: 07/13/24 09:09 Dose: 500 mcg Documented By: ELY Sertraline HCl (Sertraline Hcl 50 Mg Tablet) 50 mg PO DAILY [facility] Last Admin: 07/13/24 10:31 Dose: 50 mg Documented By: ELY Sodium Chloride (0.9 % Sodium Chloride Flush 3 Ml Syringe) 3 ml IVFLUSH QSHIFT [facility] Last Admin: 07/13/24 07:52 Dose: 3 ml Documented By: ELY Sodium Chloride (0.9 % Sodium Chloride Flush 3 Ml Syringe) 3 ml IVFLUSH QSHIFT [facility] Last Admin: 07/13/24 08:12 Dose: Not Given Documented By: ELY Non-Admin Reason: Previously Administered Vitamin D (Cholecalciferol (Vitamin D3) 25 Mcg Tablet) 100 mcg PO DAILY [facility] Last Admin: 07/13/24 10:44 Dose: Not Given Documented By: ELY Non-Admin Reason: Patient Condition Contraindication Labs 07/13/24 05:44 07/13/24 05:44 Labs: Laboratory Results - last 24 hr 07/12/24 07/13/24 13:01 05:44 MCV 88.3 MCH 30.1 MCHC 34.1 RDW 12.9 Plt Count 341 MPV 10.1 Absolute Nucleated RBC 0.000 Nucleated RBC % (auto) 0.0 Anion Gap 14 Estim Creat Clear Calc 66.9 Estimated GFR > 60 Random Glucose 200 H Calcium 8.3 L D Magnesium 2.0 C-Reactive Protein 22.19 H Procalcitonin 0.16 Blood Type O Positive Antibody Screen NEGATIVE Assessment and Plan (1) Chest wall contusion: Status: Acute Plan d7 73yo F with COPD, chronic hypoxia on 2L O2, mood disorder, HTN, chronic opioid use, multiple sclerosis, and tobacco abuse presented after fall, admitted for pain control, ultimately found to have L femoral neck fx L femoral neck fx, diagnosed 07/11 - s/p CRPP 07/12 - pain control with oxycodone + IV APAP - on ASA 325mg bid for VTE ppx acute toxic-metabolic encephalopathy - multifactorial, related to pneumonia + morphine + anesthesia; monitor mental status multifocal pneumonia - piperacillin-tazobactam (07/11-), MRSA swab and if positive consider anti-MRSA coverage, urinary antigens for Legionella and pneumococcus pending - PROGRAM MANAGER consultation for concern of aspiration - repeat CT in 4wk hypoK - replete IV/PO, recheck level in AM COPD exacerbation - completed doxycycline, continue to taper prednisone, continue nebs + controller inhaler + roflumilast acute/chronic hypoxic respiratory failure - currently on 4L, wean as tolerated to home dose of 2L CAD PAD - continue DAPT, statin mood disorder - continue bupropion, buspirone, sertraline HTN - continue metoprolol tartate + amlodipine VTE ppx - ASA bid per Ortho dispo - STR recommended In my clinical judgment, the patient requires continued inpatient hospitalization for the following reasons: IV ABX, respiratory failure, postop care Total time managing care of this patient today: 45 minutes. Quality Stroke Does the patient have a stroke diagnosis?: No VTE Prior VTE?: No VTE Risk Level:: Medical - moderate - high VTE Device Contraindication: N/A - Device Ordered VTE Drug Contraindication: Treatment Not Indicated
--- NOTE | 2024-07-13 15:25 | MHC.CM.PN ---
EMR REVIEWED AND PER MD ROUNDS, PT WILL BE SEEN BY P.T. /POSSIBLE STR VS HOME TO KAI WITH / CARE. CM WILL CONTINUE TO FOLLOW FOR ANY CHANGE TO DC PLAN/NEEDS. CM AWAITING P.T. EVAL.
--- NOTE | 2024-07-13 15:28 | MHC.CM.PN ---
EMR REVIEWED AND PER MD ROUNDS, PT IS NOT MEDICALLY CLEARED FOR DC TO STR (POD#1 S/P HIP FX REPAIR, PNA) PVR FOLLOWING AND UPDATED. CM WILL CONTINUE TO FOLLOW FOR ANY CHANGE TO DC PLAN/NEEDS.
--- NOTE | 2024-07-13 15:54 | MHC.SL.SWA ---
Speech Pathologist Impression: Oropharyngeal coordination WFL, no overt s/s of aspiration with soft solids, purees and thins Risk of Aspiration Due to: Medically Fragile History of Pneumonia Weak Cough Weak Voice Dx of MS Dysphasia Diet Status: Liquid Consistency and Strategies for Safe Swallow: Liquid Intake Recommendation: Thin Liquid Intake Strategies: Small Sips Solid Food Consistency: Dietary Recommendations: Grnd/Mech Altered (NDD2), aspiration precautions Additional Modifications to Solid Foods: Oral Medication Intake: Crushed with Puree Please contact the pharmacy regarding appropriate crushable or liquid drug formulations that are available whenever modified delivery is recommended. Compensatory Strategies and Precautions to be Taken for Safe Swallow: Tilt Head Right Small Bites and Sips Alternate Liquids/Solids Rate of Ingestion Change Supervision While Eating and Drinking for Safe Swallow: Total Assistance (1:1) Foods to Avoid: Swallowing Recommended Treatments: Compens. Strategy Educat. Recommendation for Speech: Modified Barium Swallow Study - Inpatient Comment: MBSS to be scheduled inpatient Saturday 07/15 Frequency/Duration: M-F Daily Date Range for Service Req: Timeline to reassess: Manager Pe Clinican/Clinical Fellow: No Supervisory Statement: I have reviewed and agree with the student/clinical fellow's documentation: N/A Speech Language Pathologist: Eunice Claire M.S., CCC-CLINICAL MANAGER
[2024-07-13 17:03] LABS: MRSA Nasal PCR NEGATIVE (Negative); SA Nasal PCR NEGATIVE (Negative)
[2024-07-13] MEDS: Aspirin 325 MG TABLET PO (21:05)
[2024-07-13] MEDS: busPIRone HCl 10 MG TABLET PO (21:05)
[2024-07-13] MEDS: Metoprolol Tartrate 50 MG TABLET PO (21:05)
[2024-07-13] MEDS: bisacodyL 5 MG TABLET.DR 10 MG PO (21:05)
[2024-07-13] MEDS: Atorvastatin Calcium 80 MG TABLET PO (21:05)
[2024-07-13] MEDS: ondansetron HCL 4 MG/2 ML VIAL IVPUSH (22:00)
[2024-07-13] MEDS: Cyclobenzaprine HCl 10 MG TABLET PO (23:25)
[2024-07-14] VITALS (13 sets, daily range): BP systolic 142–184; BP diastolic 67–84; PULSE 68–108; RESP 16–18; TEMP 36.1–37.2; O2SAT 89–95
[2024-07-14] MEDS: oxyCODONE HCl Immed Release 5 MG TABLET 10 MG PO ×5 (00:55→22:15)
[2024-07-14] MEDS: Melatonin 3 MG TABLET 6 MG PO ×2 (00:55→20:19)
[2024-07-14] MEDS: Piperacillin Sodium/Tazobactam 4.5 GM in 0.9 % Sodium Chloride 100 ML IV ×4 (01:57→18:16)
[2024-07-14] MEDS: oxyCODONE HCl Immed Release 5 MG TABLET PO (03:15)
[2024-07-14 06:49] LABS: Hematocrit 34.2 % (37.0-47.0); Hemoglobin 11.5 g/dl (12.0-16.0); Mean Corpuscular HGB Conc 33.6 g/dl (31.0-35.0); Mean Corpuscular Hemoglobin 30.3 pg (27.0-33.0); Mean Platelet Volume 9.7 fL (9.4-12.3); NRBC Pct Auto 0.1 /100WBC (0.0-0.2); Platelet Count 317 X10*3/uL (160-400); Red Cell Distribution Width 13.3 % (11.0-16.0); White Blood Count 25.3 X10*3/uL (4.8-10.8)
[2024-07-14 07:02] LABS: Anion Gap 11 (12-20); Blood Urea Nitrogen 20 mg/dL (9-16); Calcium 8.3 mg/dL (8.4-10.2); Carbon Dioxide 26 mmol/L (22-29); Chloride 105 mmol/L (96-108); Estimated Glomerular Filt Rate > 60; Glucose Random 86 mg/dL (60-115); Potassium 3.3 mmol/L (3.3-5.1); Sodium 139 mmol/L (135-145)
[2024-07-14 07:17] LABS: B Type Natriuretic Peptide 240 pg/mL (<100)
[2024-07-14] MEDS: Cholecalciferol (Vitamin D3) 25 MCG TABLET 100 MCG PO (08:24)
[2024-07-14] MEDS: predniSONE 10 MG TABLET PO (08:24)
[2024-07-14] MEDS: busPIRone HCl 10 MG TABLET PO ×2 (08:24→20:20)
[2024-07-14] MEDS: Metoprolol Tartrate 50 MG TABLET PO ×2 (08:24→20:17)
[2024-07-14] MEDS: Sertraline HCL 50 MG TABLET PO (08:25)
[2024-07-14] MEDS: Aspirin 325 MG TABLET PO ×2 (08:25→20:18)
[2024-07-14] MEDS: Clopidogrel Bisulfate 75 MG TABLET PO (08:25)
[2024-07-14] MEDS: Nicotine 14 MG PATCH.TD24 TRANSDERMA (08:25)
[2024-07-14] MEDS: amLODIPine Besylate 5 MG TABLET PO (08:25)
[2024-07-14] MEDS: Roflumilast 500 MCG TABLET PO (08:25)
[2024-07-14] MEDS: 0.9 % Sodium Chloride Flush 3 ML SYRINGE IVFLUSH ×2 (08:26→20:20)
[2024-07-14] MEDS: Nystatin Oral Susp 500,000 UNIT/5 ML ORAL.SUSP 200000 UNIT PO ×4 (08:26→20:20)
[2024-07-14] MEDS: Albuterol/Iprat 2.5/0.5MG 3 ML AMPUL.NEB INHALE (08:26)
[2024-07-14] MEDS: Fluticasone/Umeclidinium/Vilanterol 100/62.5/25 BLST.W.DEV 1 PUFF INHALE (09:06)
--- NOTE | 2024-07-14 09:49 | HO.POSTANES ---
Post Anesthesia Evaluation Post Anesthesia Evaluation Date of Service: 07/14/24 Vital Signs: Vital Signs Temp Pulse Resp BP Pulse Ox O2 Del Method O2 Flow Rate 07/14/24 09:07 83 16 07/14/24 07:26 98.9 F 83 16 142/75 H Nasal Cannula 4 07/14/24 04:15 18 07/14/24 04:00 97.0 F 68 16 150/72 H 93 Nasal Cannula 4 07/14/24 01:58 18 07/14/24 01:58 18 07/14/24 00:27 18 07/14/24 00:00 97.1 F 71 18 172/68 H 94 Nasal Cannula 4 Anesthesia: General Mental Status: Awake Pain Control: Satisfactory Nausea/Vomiting: None Hydration: Adequate Anesthesia-Related Issues: No Anes. Related Issues
--- NOTE | 2024-07-14 11:02 | HO.PM.IMPN ---
Subjective Subjective Date of Service: 07/14/24 Interval History: breathing improved, back on 2L O2 [home dose] c/o hip pain Review of Systems Review of Systems: Yes all other systems are reviewed and are negative Physical Exam Vital Signs: Vital Signs: Last Vital Signs Temp 98.9 F 07/14/24 07:26 Pulse 83 07/14/24 09:07 Resp 16 07/14/24 09:07 BP 142/75 H 07/14/24 07:26 Pulse Ox 93 07/14/24 04:00 O2 Del Method Nasal Cannula 07/14/24 07:26 O2 Flow Rate 4 07/14/24 07:26 BMI result Body Mass Index 24.8 Gen: in no acute distress HEENT: sclera anicteric, moist mucus membranes Neck: supple Lungs: clear bilaterally Heart: regular rate and rhythm, no murmurs Abd: soft, non-tender, non-distended Ext: no edema Skin: warm/well-perfused, incision of L hip with dry dressing Neuro: alert and oriented x3, no focal findings Psych: appropriate affect Objective Data Active Medications Acetaminophen/Butalbital/Caffeine (Butalb/Acetamin/Caff 50/325/40 Tablet) 1 tab PO DAILY PRN PRN Reason: Headache Last Admin: 07/10/24 14:16 Dose: 1 tab Documented By: MED Amlodipine Besylate (Amlodipine Besylate 5 Mg Tablet) 5 mg PO DAILY COUNTS INCLUDE 234 BEDS AT THE [facility]; Protocol Last Admin: 07/14/24 08:25 Dose: 5 mg Documented By: JOSUE Aspirin (Aspirin 325 Mg Tablet) 325 mg PO BID COUNTS INCLUDE 234 BEDS AT THE [facility] Last Admin: 07/14/24 08:25 Dose: 325 mg Documented By: JOSUE Atorvastatin Calcium (Atorvastatin Calcium 80 Mg Tablet) 80 mg PO BEDTIME COUNTS INCLUDE 234 BEDS AT THE [facility] Last Admin: 07/13/24 21:05 Dose: 80 mg Documented By: PHILLIP Bisacodyl (Bisacodyl 5 Mg Tablet.) 10 mg PO BEDTIME COUNTS INCLUDE 234 BEDS AT THE [facility] Last Admin: 07/13/24 21:05 Dose: 10 mg Documented By: PHILLIP Bupropion HCl (Bupropion Hcl Xl 300 Mg Tab.Er.24h) 300 mg PO DAILY COUNTS INCLUDE 234 BEDS AT THE [facility] Last Admin: 07/14/24 08:48 Dose: Not Given Documented By: JOSUE Non-Admin Reason: Patient Condition Contraindication Buspirone HCl (Buspirone Hcl 10 Mg Tablet) 10 mg PO BID COUNTS INCLUDE 234 BEDS AT THE [facility] Last Admin: 07/14/24 08:24 Dose: 10 mg Documented By: JOSUE Calcium Carbonate (Calcium Carbonate 750 Mg Tab.Chew) 750 mg PO Q4H PRN PRN Reason: Heartburn Clopidogrel Bisulfate (Clopidogrel Bisulfate 75 Mg Tablet) 75 mg PO DAILY COUNTS INCLUDE 234 BEDS AT THE [facility] Last Admin: 07/14/24 08:25 Dose: 75 mg Documented By: JOSUE Cyclobenzaprine HCl (Cyclobenzaprine Hcl 10 Mg Tablet) 10 mg PO DAILY PRN PRN Reason: muscle spasms Last Admin: 07/13/24 23:25 Dose: 10 mg Documented By: PHILLIP Fluticasone Propionate (Fluticasone Propionate Nasal 16 Gm [place]) 1 spray NOSTRIL-B BID PRN PRN Reason: allergies Fluticasone/Umeclidinium/Vilanterol (Fluticasone/Umeclidinium/Vilanterol 100/62.5/25 Blst.W.Dev) 1 puff INHALE RDAILY COUNTS INCLUDE 234 BEDS AT THE [facility] Last Admin: 07/14/24 09:06 Dose: 1 puff Documented By: ABRAN Haloperidol Lactate (Haloperidol Lactate 5 Mg/Ml Vial) 5 mg IM ONCE PRN PRN Reason: agitation Last Admin: 07/11/24 15:03 Dose: 5 mg Documented By: FITZ Piperacillin Sod/Tazobactam (Sod 4.5 gm/ Sodium Chloride) 100 mls @ 200 mls/hr IV Q6H COUNTS INCLUDE 234 BEDS AT THE [facility] Last Infusion: 07/14/24 10:18 Dose: Infused Documented By: JOSUE Levalbuterol HCl (Levalbuterol Hcl 1.25 Mg/3 Ml Vial.Neb) 1.25 mg INHALE TID PRN PRN Reason: Shortness Of Breath Or Wheezing Magnesium Hydroxide (Milk Of Magnesia 30 Ml Oral.Susp) 30 ml PO DAILY PRN PRN Reason: Constipation Last Admin: 07/09/24 11:55 Dose: 30 ml Documented By: JEANNINE Melatonin (Melatonin 3 Mg Tablet) 6 mg PO BEDTIME PRN PRN Reason: Insomnia Last Admin: 07/14/24 00:55 Dose: 6 mg Documented By: PHILLIP Metoprolol Tartrate (Metoprolol Tartrate 50 Mg Tablet) 50 mg PO BID COUNTS INCLUDE 234 BEDS AT THE [facility]; Protocol Last Admin: 07/14/24 08:24 Dose: 50 mg Documented By: JOSUE Nicotine (Nicotine 14 Mg Patch.Td24) 14 mg TRANSDERMA DAILY COUNTS INCLUDE 234 BEDS AT THE [facility] Last Admin: 07/14/24 08:25 Dose: 14 mg Documented By: JOSUE Nystatin (Nystatin Oral Susp 500,000 Unit/5 Ml Oral.Susp) 200,000 unit PO QID COUNTS INCLUDE 234 BEDS AT THE [facility]; Protocol Last Admin: 07/14/24 08:26 Dose: 200,000 unit Documented By: JOSUE Ondansetron HCl (Ondansetron Hcl 4 Mg/2 Ml Vial) 4 mg IVPUSH Q6H PRN PRN Reason: Nausea Last Admin: 07/13/24 22:00 Dose: 4 mg Documented By: SAVITA Oxycodone HCl (Oxycodone Hcl Immed Release 5 Mg Tablet) 10 mg PO Q4H PRN PRN Reason: Pain, Severe (Pain Scale 7-10) Last Admin: 07/14/24 08:25 Dose: 10 mg Documented By: JOSUE Prednisone (Prednisone 10 Mg Tablet) 20 mg PO DAILY COUNTS INCLUDE 234 BEDS AT THE [facility]; Taper Stop: 07/18/24 08:59 Last Admin: 07/14/24 08:24 Dose: 20 mg Documented By: JOSUE Roflumilast (Roflumilast 500 Mcg Tablet) 500 mcg PO DAILY COUNTS INCLUDE 234 BEDS AT THE [facility] Last Admin: 07/14/24 08:25 Dose: 500 mcg Documented By: JOSUE Sertraline HCl (Sertraline Hcl 50 Mg Tablet) 50 mg PO DAILY COUNTS INCLUDE 234 BEDS AT THE [facility] Last Admin: 07/14/24 08:25 Dose: 50 mg Documented By: JOSUE Sodium Chloride (0.9 % Sodium Chloride Flush 3 Ml Syringe) [facility] Last Admin: 07/14/24 08:26 Dose: 3 ml Documented By: JOSUE Sodium Chloride (0.9 % Sodium Chloride Flush 3 Ml Syringe) [facility] Last Admin: 07/14/24 08:50 Dose: Not Given Documented By: JOSUE Non-Admin Reason: Previously Administered Vitamin D (Cholecalciferol (Vitamin D3) 25 Mcg Tablet) 100 mcg PO DAILY RAJNI Last Admin: 07/14/24 08:24 Dose: 100 mcg Documented By: JOSEU Labs 07/14/24 05:47 07/14/24 05:47 Labs: Laboratory Results - last 24 hr 07/13/24 07/14/24 15:24 05:47 MCV 90.0 MCH 30.3 MCHC 33.6 RDW 13.3 Plt Count 317 MPV 9.7 Absolute Nucleated RBC 0.020 H Nucleated RBC % (auto) 0.1 Anion Gap 11 L Estim Creat Clear Calc 74.0 Estimated GFR > 60 Random Glucose 86 Calcium 8.3 L B-Natriuretic Peptide 240 H Nasal Screen MRSA (PCR) NEGATIVE Nasal S. aureus Screen NEGATIVE Nasal MRSA/S.aureus Interp SEE NOTE Assessment and Plan (1) Chest wall contusion: Status: Acute Plan d8 73yo F with COPD, chronic hypoxia on 2L O2, mood disorder, HTN, chronic opioid use, multiple sclerosis, and tobacco abuse presented after fall, admitted for pain control, ultimately found to have L femoral neck fx L femoral neck fx, diagnosed 07/11 - s/p CRPP 07/12 - pain control with oxycodone + IV APAP - on ASA 325mg bid for VTE ppx - PT acute toxic-metabolic encephalopathy - multifactorial, related to pneumonia + morphine + anesthesia; monitor mental status; appears to have improved multifocal pneumonia - piperacillin-tazobactam (07/11-), MRSA swab negative; urinary antigens for Legionella and pneumococcus pending - SAFETY COUNSELOR consultated, on NDD2 solids but will do MBSS tomorrow given problem swallowing pills - repeat CT in 4wk to ensure resolution of infiltrates hypoK - repleted COPD exacerbation - completed doxycycline, continue to taper prednisone [end 07/18], continue nebs + controller inhaler + roflumilast acute/chronic hypoxic respiratory failure - weaned to home dose of 2L CAD PAD - continue DAPT, statin mood disorder - continue bupropion, buspirone, sertraline HTN - continue metoprolol tartate + amlodipine VTE ppx - ASA bid per Ortho dispo - STR recommended In my clinical judgment, the patient requires continued inpatient hospitalization for the following reasons: IV ABX, respiratory failure, postop care Total time managing care of this patient today: 35 minutes. Quality Stroke Does the patient have a stroke diagnosis?: No VTE Prior VTE?: No VTE Risk Level:: Medical - moderate - high VTE Device Contraindication: N/A - Device Ordered VTE Drug Contraindication: Treatment Not Indicated
--- NOTE | 2024-07-14 11:03 | PM.PNORT ---
Subjective Subjective Date of Service: 07/14/24 Interval history: POD 2 s/p Lt hip CRPP no overnight events resting in chair no concerns today Physical Exam Vital Signs: Vital Signs: Last Vital Signs Temp 98.9 F 07/14/24 07:26 Pulse 83 07/14/24 09:07 Resp 16 07/14/24 09:07 BP 142/75 H 07/14/24 07:26 Pulse Ox 93 07/14/24 04:00 O2 Del Method Nasal Cannula 07/14/24 07:26 O2 Flow Rate 4 07/14/24 07:26 BMI result Body Mass Index 24.8 Extrem: Other: Dressing on left hip clean, dry, intact No evidence of surrounding erythema, ecchymosis No evidence of infection Patient is able to flex and extend the digits of the left foot without difficulty Compartments soft, nontender Distal sensation intact Capillary refill brisk Procedures Date of Service Date of Service: 07/14/24 Progress Note: A&P Assessment and plan (1) Subcapital fracture of left hip: Status: Acute Plan 1. Status post CRPP of the left hip Continue pain management, consider change in pain medication due to uncontrolled pain Continue aspirin for DVT prophylaxis PT/OT evaluations pending Dispo planning-pain management, medical clearance, PT/OT recommendations Continue with all other recommendations per Medicine Time Spent With Patient Time: Total time managing care of this patient today ____ minutes. Quality Stroke Does the patient have a stroke diagnosis?: No VTE Prior VTE?: No VTE Risk Level:: Medical - moderate - high VTE Device Contraindication: N/A - Device Ordered VTE Drug Contraindication: Treatment Not Indicated
--- NOTE | 2024-07-14 15:30 | MHC.SL.SWA ---
Speech Pathologist Impression: Risk of Aspiration, Oropharyngeal Dysphagia Risk of Aspiration Due to: Medically Fragile History of Pneumonia Weak Cough Weak Voice Dysphasia Diet Status: Upgrade from NDD2 to NDD3 Liquid Consistency and Strategies for Safe Swallow: Liquid Intake Recommendation: Thin Liquid Intake Strategies: Small Sips Solid Food Consistency: Dietary Recommendations: Chopped/Advanced (NDD3) Oral Medication Intake: Crushed with Puree Please contact the pharmacy regarding appropriate crushable or liquid drug formulations that are available whenever modified delivery is recommended. Compensatory Strategies and Precautions to be Taken for Safe Swallow: Sitting Upright (90 deg) Small Bites and Sips Alternate Liquids/Solids Rate of Ingestion Change Supervision While Eating and Drinking for Safe Swallow: Total Supervision (1:1) Swallowing Recommended Treatments: Compens. Strategy Educat. 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
[2024-07-14] MEDS: Atorvastatin Calcium 80 MG TABLET PO (20:19)
[2024-07-14] MEDS: Cyclobenzaprine HCl 10 MG TABLET PO (20:19)
[2024-07-15] VITALS (10 sets, daily range): BP systolic 138–180; BP diastolic 64–86; PULSE 66–91; RESP 16–20; TEMP 36.1–36.4; O2SAT 90–97
[2024-07-15] MEDS: Piperacillin Sodium/Tazobactam 4.5 GM in 0.9 % Sodium Chloride 100 ML IV ×4 (01:01→18:27)
[2024-07-15] MEDS: oxyCODONE HCl Immed Release 5 MG TABLET 10 MG PO ×5 (02:07→20:13)
[2024-07-15] MEDS: Butalb/Acetamin/Caff 50/325/40 TABLET 1 TAB PO ×2 (03:50→09:15)
--- NOTE | 2024-07-15 04:00 | PC.NURSE ---
Patient hypertensive in the evening with SBP 180's. Pt was asymptomatic and given scheduled metoprolol with +effect, SBP reduced to 160's on scheduled vitals reassessment. SBP again elevated in 180's manually on scheduled vitals this morning. Pt now c/o 8/10 headache w/ this HTN this morning, denies vision changes or other s/s. Covering Dr. Castellanos notified BP 180/72 manually HR 79, c/o headache. Per MD: Acute BP interventions deferred at this time, scheduled BP medications may need adjusting. Patient medicated with prn fioricet for headache per AUG as well as ice pack applied to posterior head per pt request. Effectiveness pending at this time. Plan of care continues.
[2024-07-15 07:08] LABS: Hematocrit 33.1 % (37.0-47.0); Hemoglobin 11.3 g/dl (12.0-16.0); Mean Corpuscular HGB Conc 34.1 g/dl (31.0-35.0); Mean Corpuscular Hemoglobin 30.6 pg (27.0-33.0); Mean Corpuscular Volume 89.7 fL (80.0-98.0); Mean Platelet Volume 9.3 fL (9.4-12.3); Platelet Count 274 X10*3/uL (160-400); Red Blood Count 3.69 X10*6/uL (4.20-5.50); Red Cell Distribution Width 13.3 % (11.0-16.0); White Blood Count 14.3 X10*3/uL (4.8-10.8)
[2024-07-15 07:28] LABS: Blood Urea Nitrogen 13 mg/dL (9-16); Calcium 8.6 mg/dL (8.4-10.2); Estimated Glomerular Filt Rate > 60; Glucose Random 98 mg/dL (60-115)
[2024-07-15 07:34] LABS: Anion Gap 13 (12-20)
[2024-07-15 07:44] LABS: Procalcitonin 0.12 ng/mL
[2024-07-15 07:45] LABS: Carbon Dioxide 26 mmol/L (22-29); Chloride 102 mmol/L (96-108); Potassium 2.9 mmol/L (3.3-5.1); Sodium 138 mmol/L (135-145)
[2024-07-15] MEDS: Fluticasone/Umeclidinium/Vilanterol 100/62.5/25 BLST.W.DEV 1 PUFF INHALE (08:00)
[2024-07-15 08:13] LABS: Magnesium 1.8 mg/dL (1.6-2.6)
[2024-07-15] MEDS: Potassium Chloride Packet 20 MEQ PACKET 40 MEQ PO (09:11)
[2024-07-15] MEDS: Nicotine 14 MG PATCH.TD24 TRANSDERMA (09:12)
[2024-07-15] MEDS: Aspirin 325 MG TABLET PO ×2 (09:13→20:02)
[2024-07-15] MEDS: busPIRone HCl 10 MG TABLET PO ×2 (09:13→20:03)
[2024-07-15] MEDS: Cholecalciferol (Vitamin D3) 25 MCG TABLET 100 MCG PO (09:13)
[2024-07-15] MEDS: Clopidogrel Bisulfate 75 MG TABLET PO (09:14)
[2024-07-15] MEDS: Roflumilast 500 MCG TABLET PO (09:14)
[2024-07-15] MEDS: buPROPion HCl XL 300 MG TAB.ER.24H PO (09:14)
[2024-07-15] MEDS: Metoprolol Tartrate 50 MG TABLET PO ×2 (09:14→20:02)
[2024-07-15] MEDS: predniSONE 10 MG TABLET PO (09:14)
[2024-07-15] MEDS: amLODIPine Besylate 10 MG TABLET PO (09:15)
[2024-07-15] MEDS: Sertraline HCL 50 MG TABLET PO (09:15)
[2024-07-15] MEDS: Potassium Chloride/H20 10 MEQ/100 ML PIGGYBACK 100 MEQ IV ×4 (09:16→14:55)
[2024-07-15] MEDS: Nystatin Oral Susp 500,000 UNIT/5 ML ORAL.SUSP 200000 UNIT PO ×4 (09:16→20:03)
[2024-07-15] MEDS: 0.9 % Sodium Chloride Flush 3 ML SYRINGE IVFLUSH ×2 (09:16→16:31)
--- NOTE | 2024-07-15 10:55 | MHC.CM.PN ---
Per MD rounds discharge is anticipated tomorrow. An MBS is scheduled for today. A clinical update has been sent to the STR. DP PVR via BLS.
--- NOTE | 2024-07-15 12:26 | P.PNIM_ITS ---
Subjective Subjective Date of Service: 07/15/24 Interval History: cough improving K low c/o hip pain, migraine GUERRERO Review of Systems Review of Systems: Yes all other systems are reviewed and are negative Physical Exam 2 Vital Signs: Vital Signs: Last Vital Signs Temp 97.4 F 07/15/24 11:27 Pulse 68 07/15/24 11:27 Resp 16 07/15/24 11:27 BP 138/64 07/15/24 11:27 Pulse Ox 94 07/15/24 11:27 O2 Del Method Nasal Cannula 07/15/24 11:27 O2 Flow Rate 4 07/15/24 11:27 BMI result Body Mass Index 24.8 Gen: in no acute distress HEENT: sclera anicteric, moist mucus membranes Neck: supple Lungs: scattered rhonchi and wheezes Heart: regular rate and rhythm, no murmurs Abd: soft, non-tender, non-distended Ext: no edema Skin: warm/well-perfused, incision of L hip with dry dressing Neuro: alert and oriented x3, no focal findings Psych: appropriate affect Objective Data Active Medications Acetaminophen/Butalbital/Caffeine (Butalb/Acetamin/Caff 50/325/40 Tablet) 1 tab PO Q4H PRN PRN Reason: Headache Albuterol/Ipratropium (Albuterol/Iprat 2.5/0.5mg 3 Ml Ampul.Neb) 3 ml INHALE RQ4H WHILE AWAKE PRN PRN Reason: shortness of breath or wheezing Amlodipine Besylate (Amlodipine Besylate 10 Mg Tablet) 10 mg PO DAILY [facility]; Protocol Last Admin: 07/15/24 09:15 Dose: 10 mg Documented By: BRIANNE Aspirin (Aspirin 325 Mg Tablet) 325 mg PO BID [facility] Last Admin: 07/15/24 09:13 Dose: 325 mg Documented By: BRIANNE Atorvastatin Calcium (Atorvastatin Calcium 80 Mg Tablet) 80 mg PO BEDTIME [facility] Last Admin: 07/14/24 20:19 Dose: 80 mg Documented By: PHILLIP Bupropion HCl (Bupropion Hcl Xl 300 Mg Tab.Er.24h) 300 mg PO DAILY [facility] Last Admin: 07/15/24 09:14 Dose: 300 mg Documented By: BRIANNE Buspirone HCl (Buspirone Hcl 10 Mg Tablet) 10 mg PO BID [facility] Last Admin: 07/15/24 09:13 Dose: 10 mg Documented By: BRIANNE Calcium Carbonate (Calcium Carbonate 750 Mg Tab.Chew) 750 mg PO Q4H PRN PRN Reason: Heartburn Clopidogrel Bisulfate (Clopidogrel Bisulfate 75 Mg Tablet) 75 mg PO DAILY [facility] Last Admin: 07/15/24 09:14 Dose: 75 mg Documented By: BRIANNE Cyclobenzaprine HCl (Cyclobenzaprine Hcl 10 Mg Tablet) 10 mg PO DAILY PRN PRN Reason: muscle spasms Last Admin: 07/14/24 20:19 Dose: 10 mg Documented By: PHILLIP Fluticasone Propionate (Fluticasone Propionate Nasal 16 Gm [place]) 1 spray NOSTRIL-B BID PRN PRN Reason: allergies Fluticasone/Umeclidinium/Vilanterol (Fluticasone/Umeclidinium/Vilanterol 100/62.5/25 Blst.W.Dev) 1 puff INHALE RDAILY [facility] Last Admin: 07/15/24 08:00 Dose: 1 puff Documented By: KENNETH Haloperidol Lactate (Haloperidol Lactate 5 Mg/Ml Vial) 5 mg IM ONCE PRN PRN Reason: agitation Last Admin: 07/11/24 15:03 Dose: 5 mg Documented By: FITZ Piperacillin Sod/Tazobactam (Sod 4.5 gm/ Sodium Chloride) 100 mls @ 200 mls/hr IV Q6H [facility] Last Infusion: 07/15/24 06:50 Dose: Infused Documented By: PHILLIP Magnesium Hydroxide (Milk Of Magnesia 30 Ml Oral.Susp) 30 ml PO DAILY PRN PRN Reason: Constipation Last Admin: 07/09/24 11:55 Dose: 30 ml Documented By: JEANNINE Melatonin (Melatonin 3 Mg Tablet) 6 mg PO BEDTIME PRN PRN Reason: Insomnia Last Admin: 07/14/24 20:19 Dose: 6 mg Documented By: PHILLIP Metoprolol Tartrate (Metoprolol Tartrate 50 Mg Tablet) 50 mg PO BID [facility]; Protocol Last Admin: 07/15/24 09:14 Dose: 50 mg Documented By: BRIANNE Nicotine (Nicotine 14 Mg Patch.Td24) 14 mg TRANSDERMA DAILY [facility] Last Admin: 07/15/24 09:12 Dose: 14 mg Documented By: BRIANNE Nystatin (Nystatin Oral Susp 500,000 Unit/5 Ml Oral.Susp) 200,000 unit PO QID [facility]; Protocol Last Admin: 07/15/24 09:16 Dose: 200,000 unit Documented By: BRIANNE Ondansetron HCl (Ondansetron Hcl 4 Mg/2 Ml Vial) 4 mg IVPUSH Q6H PRN PRN Reason: Nausea Last Admin: 07/13/24 22:00 Dose: 4 mg Documented By: SAVITA Oxycodone HCl (Oxycodone Hcl Immed Release 5 Mg Tablet) 10 mg PO Q4H PRN PRN Reason: Pain, Severe (Pain Scale 7-10) Last Admin: 07/15/24 10:20 Dose: 10 mg Documented By: BRIANNE Prednisone (Prednisone 10 Mg Tablet) 20 mg PO DAILY [facility]; Taper Stop: 07/18/24 08:59 Last Admin: 07/15/24 09:14 Dose: 20 mg Documented By: BRIANNE Roflumilast (Roflumilast 500 Mcg Tablet) 500 mcg PO DAILY [facility] Last Admin: 07/15/24 09:14 Dose: 500 mcg Documented By: BRIANNE Sertraline HCl (Sertraline Hcl 50 Mg Tablet) 50 mg PO DAILY [facility] Last Admin: 07/15/24 09:15 Dose: 50 mg Documented By: BRIANNE Sodium Chloride (0.9 % Sodium Chloride Flush 3 Ml Syringe) 3 ml IVFLUSH [facility] Last Admin: 07/15/24 09:16 Dose: 3 ml Documented By: BRIANNE Sodium Chloride (0.9 % Sodium Chloride Flush 3 Ml Syringe) 3 ml IVFLUSH [facility] Last Admin: 07/15/24 09:17 Dose: Not Given Documented By: BRIANNE Non-Admin Reason: Duplicate Order Vitamin D (Cholecalciferol (Vitamin D3) 25 Mcg Tablet) 100 mcg PO DAILY [facility] Last Admin: 07/15/24 09:13 Dose: 100 mcg Documented By: BRIANNE Labs 07/15/24 05:57 07/15/24 05:57 Labs: Laboratory Results - last 24 hr 07/15/24 05:57 MCV 89.7 MCH 30.6 MCHC 34.1 RDW 13.3 Plt Count 274 MPV 9.3 L Absolute Nucleated RBC 0.000 Nucleated RBC % (auto) 0.0 Anion Gap 13 Estim Creat Clear Calc 78.0 Estimated GFR > 60 Random Glucose 98 Calcium 8.6 Magnesium 1.8 Procalcitonin 0.12 Assessment and Plan (1) Chest wall contusion: Status: Acute Plan d9 73yo F with COPD, chronic hypoxia on 2L O2, mood disorder, HTN, chronic opioid use, multiple sclerosis, and tobacco abuse presented after fall, admitted for pain control, ultimately found to have L femoral neck fx L femoral neck fx, diagnosed 07/11 - s/p CRPP 07/12 - pain control with oxycodone + IV APAP - on ASA 325mg bid for VTE ppx - PT acute toxic-metabolic encephalopathy - multifactorial, related to pneumonia + morphine + anesthesia; monitor mental status; appears to have improved multifocal pneumonia - piperacillin-tazobactam (07/11-), MRSA swab negative; urinary antigens for Legionella and pneumococcus pending - 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, on NDD2 solids but will do MBSS today given problem swallowing pills - repeat CT in 4wk to ensure resolution of infiltrates hypoK - replete IV/PO and recheck level in AM; start maintenance PO COPD exacerbation - completed doxycycline, continue to taper prednisone [end 07/18], continue nebs + controller inhaler + roflumilast acute/chronic hypoxic respiratory failure - wean as tolerated to home dose of 2L CAD PAD - continue DAPT, statin mood disorder - continue bupropion, buspirone, sertraline HTN - continue metoprolol tartate + amlodipine VTE ppx - ASA bid per Ortho dispo - STR recommended In my clinical judgment, the patient requires continued inpatient hospitalization for the following reasons: IV ABX, respiratory failure, postop care Total time managing care of this patient today: 35 minutes. Quality Stroke Does the patient have a stroke diagnosis?: No VTE Prior VTE?: No VTE Risk Level:: Medical - moderate - high VTE Device Contraindication: N/A - Device Ordered VTE Drug Contraindication: Treatment Not Indicated
--- NOTE | 2024-07-15 13:17 | MHC.SLORD ---
Speech Language Pathology Order Status: Pt seen prior to MBSS, pt alert, endorsing pain d/t hip fracture. MBSS completed, results reviewed by evaluating STONE AND CONCRETE WASHER with pt. Pt to remain on NDD3 with thins, STONE AND CONCRETE WASHER will followup.
--- NOTE | 2024-07-15 15:10 | MHC.SL.IMP ---
Date of Plan of Treatment: 07/15/24 Onset of Symptoms/Illness: 07/13/24 Date Treatment Started: 07/13/24 Admitting Diagnosis: Chest wall contusion Primary Speech & Language Diagnosis: R13.13 Pharyngeal Phase Dysphagia Secondary Speech & Language Diagnosis: R47.1 Dysarthria Reason for Today's Visit: 58581 Modified Barium Swallow Study Pre-evaluation Dietary Consistencies: Chopped/Advanced (NDD3) Pre-evaluation Liquid Consistency: Thin Pre-evaluation Medication Administration: Crushed with Puree Medical History: Modified Barium Swallow Study Fluoroscopic Evaluation of Swallowing Function CPT Code 92581 Evaluation Year: 2024 Reason for Study: Difficulty swallowing Referring Physician: Candi Jurado MD Evaluating Clinician: Afia Campbell MA, CCC-STUDENT SERVICES COUNSELOR Study Number: 1 Patient Name: MRN: Status: Inpatient, Wheelchair Age: 74 Gender: Female Medical History Medical History History of CAD (coronary artery disease) Peripheral vascular disease Chronic back pain GERD (gastroesophageal reflux disease) High cholesterol HTN (hypertension) Immune disorder COPD (chronic obstructive pulmonary disease) Multiple sclerosis Surgical History History of angioplasty History of heart artery stent SUBJECTIVE: Patient is a 73 year old female, presenting to the hospital after a fall, found to have L femoral neck fx, s/p CRPP 07/12 and followed by PT. Patient also noted to have acute toxic metabolic encephalopathy, multifactorial in the setting of PNA, morphine and anesthesia, appears to have improved. Pertinent medical history includes COPD, chronic hypoxia on , mood d/o, HTN, chronic opioid use, MS, and tobacco abuse. Food and Liquid Trials: Oral Impairment: Lip Closure: Did not test Oral Impairment: Tongue Control During Bolus Hold: Did not test Oral Impairment: Bolus Preparation/Mastication: 1=Slow prolonged chewing/mashing with complete re-collection Oral Impairment: Bolus Transport/Lingual Motion: 2=Slowed tongue motion Oral Impairment: Oral Residue: 1=Trace residue lining oral structures Oral Impairment:Initiation of Pharyngeal Swallow: 2=Bolus head at posterior laryngeal surface of epiglottis Pharyngeal Impairment: Soft Palate Elevation: 0=No bolus between soft palate (SP)/pharyngeal wall (PW) Pharyngeal Impairment: Laryngeal Elevation: 0=Complete superior movement of thyroid cartilage (see description) Pharyngeal Impairment: Anterior Hyoid Excursion: 1=Partial anterior movement Pharyngeal Impairment: Epiglottic Movement: 1=Partial inversion Pharyngeal Impairment: Laryngeal Vestibular Closure:: 1=Incomplete: narrow column air/contrast in laryngeal vestibule Pharyngeal Impairment: Pharyngeal Stripping Wave: 0=Present: complete Pharyngeal Impairment: Pharyngeal Contraction: Did not test Pharyngeal Impairment: Pharyngoesophageal Segment Openin=Partial distention/partial duration: partial obstruction of flow Pharyngeal Impairment: Tongue Base (TB) Retraction: 2=Narrow column of contrast/air between TB and posterior PW Pharyngeal Impairment: Pharyngeal Residue: 1=Trace residue within or on pharyngeal structures Pharyngeal Impairment: Esophageal Clearance Upright Position: Did not test Impressions and Recommendations OBJECTIVE: Time-out: performed at 11:15 Evaluation Start: 10:45; Stop: 11:00 Patient Positioning: Seated 70-90 degrees Viewing Planes: LATERAL ONLY Contrast: MBSImP? Standardized Protocol using commercially prepared, standardized Barium viscosities, including: Varibar? THIN LIQUID (40% w/v, <15 cps) , Varibar? NECTAR (40% w/v, <150-450 cps) , Varibar? PUDDING (40% w/v, <2495-8964 cps) , 1/2 Shortbread Cookie (1 x1 x.25 ) [facility] ID: [id number] [facility] Results: Lip closure for intraoral bolus containment could not be assessed due to logistical reasons not related to physiologic impairment. Tongue control during bolus hold could not be assessed due to logistical reasons not related to physiologic impairment. Bolus preparation and mastication resulted in slow, prolonged chewing/mashing but with complete re-collection. Bolus transport/lingual motion was with slowed tongue motion. Oral residue was a trace, lining oral structures. Initiation of the pharyngeal swallow occurred as the bolus head was at the posterior laryngeal surface of the epiglottis. Soft palate elevation resulted in no bolus between the soft palate and the pharyngeal wall. Laryngeal elevation demonstrated complete superior movement of the thyroid cartilage with complete approximation of the arytenoids to the epiglottic petiole. Anterior hyoid excursion demonstrated partial anterior movement. Epiglottic movement resulted in partial inversion. Laryngeal vestibular closure was incomplete, with a narrow column of air/contrast noted within the laryngeal vestibule at the height of the swallow. Pharyngeal stripping wave was present and complete. Pharyngeal contraction could not be determined due to logistical reasons not related to physiologic impairment. Pharyngoesophageal segment opening demonstrated partial distension/partial duration, with partial obstruction of bolus flow. Tongue base retraction allowed a narrow column of contrast or air between the retracted tongue base and the posterior pharyngeal wall. Pharyngeal residue was a trace within or on pharyngeal structures. Esophageal clearance in the upright position could not be assessed due to logistical reasons not related to physiologic impairment. Oral Impairment Score: 5 (absence of score, component 1component 2) Pharyngeal Impairment Score: 6 (absence of score, component 13) Esophageal Impairment Score: --- (absence of score, component 17) Laryngeal Penetration and Aspiration: Neither penetration nor aspiration was observed in today's study with Cookie, [place]udding-thick, [place]-thick. Penetration was observed in today's study. Thin Contrast entered the airway, remained above the vocal folds, and was ejected from the airway. Structural Abnormalities Noted: Cricopharyngeal Hypertrophy/Bar noted, but had no functional significance. Cervical Hardware noted, but had no functional significance. ASSESSMENT: This exam was conducted by the radiologist and the speech pathologist. Patient was seated upright in a wheelchair for lateral view only. Patient was able to feed herself without difficulty and trialed thin (via single cup sips, sequential cup sips, single straw sips), nectar thick (via single straw sips), puree, and regular solid consistencies. Mastication was mildly prolonged, but with good oral recollection. Slowed posterior lingual motion. Trace residue diffusely lining the tongue, lateral sulci, and floor of mouth. Pharyngeal swallow trigger initiated as the bolus head reached the posterior laryngeal surface of the epiglottis. No evidence of nasopharyngeal reflux. Complete laryngeal elevation. Partial epiglottic inversion and incomplete laryngeal vestibular closure. There was flash penetration on trials of thin consistency consumed by cup sips. A trace amount of contrast entered the airway above the vocal folds and immediately cleared. No evidence of aspiration during this exam. Trace residue seen on the tongue base, valleculae, and posterior pharyngeal wall with trials of puree and liquids. Complete pharyngeal clearing with trials of regular solid. Note finding of cervical hardware and cricopharyngeal bar (CP bar) Liquid Intake Recommendation: Thin Liquid Intake Strategies: Small Sips Dietary Recommendations: Regular Medication Administration: Crushed with Puree Please contact the pharmacy regarding appropriate crushable or liquid drug formulations that are available whenever modified delivery is recommended. Compensatory Strategies Recommended: Sitting Upright (90 deg), Small Bites and Sips, Alternate Liquids/Solids, Rate of Ingestion Change Supervision during eating and or drinking: None Needed Recommended Treatments: Compens. Strategy Educat. Recommendation for Speech Therapy: NA:Typical Evaluation Text Comment: Intake Recommendations: Route: PO Diet Grade: Regular Liquid Consistencies: Thin Post-Study Functional Oral Intake Scale (FOIS): 7- Total oral intake with no restrictions Flash penetration with trace liquid. No evidence of aspiration during this exam. Good oral and pharyngeal clearance. Note presence of cervical hardware and cricopharyngeal bar, which may be contributing to patient?s symptom of globus sensation. Therapy Recommendations: Discussed findings with patient after the exam. Patient?s swallow physiology in the oral and pharyngeal phases is considered to be functional. Adequate airway protection with good clearing of the oral and pharyngeal cavities. Exam did note cervical hardware, as well as cricopharyngeal bar, which may be contributing to patient?s symptom of globus sensation. Recommend UPGRADE diet to REGULAR solids and THIN liquids, pills WHOLE or CRUSHED per patient?s tolerance. Further ST intervention is no longer warranted at this level of care. Frequency/Duration: M-F Daily Date Range for Service Requested: Timeline to reassess: Clinician - Supplemental, Miscellaneous Communication: It is important to note MBSS objective studies are snapshots in time and Patient function might vary with factors such as time of day or concomitant medical conditions. For this reason, the final treatment plan for this patient should rest with their medical care team. Additional recommendations should be considered with the totality of the Patient in mind. Thank for the opportunity to participate in the care of this patient. If you have any questions about the content of this report, please contact the [facility] at [facility]. Education: Education regarding findings from today's study and plans for therapy were provided to Patient only through Verbal Instruction. Understanding was expressed by the Patient only. Pattern Lease Inspector Clinician/Clinical Fellow: No Supervisory Statement: N/A Speech Language Pathologist: Afia Campbell M.A., CCC-STUDENT SERVICES COUNSELOR
[2024-07-15 15:49] LABS: Legionella Ag Urine Not Detected (Not Detected)
[2024-07-15] MEDS: Loperamide HCl 2 MG CAPSULE PO (16:30)
[2024-07-15] MEDS: Cyclobenzaprine HCl 10 MG TABLET PO (18:26)
[2024-07-15 19:38] LABS: Strep Pneumo Ag urine Detected (Not Detected)
[2024-07-15] MEDS: Atorvastatin Calcium 80 MG TABLET PO (20:03)
[2024-07-15 21:00] LABS: CDiff Gene PCR NEGATIVE (Negative)
[2024-07-15] MEDS: Albuterol/Iprat 2.5/0.5MG 3 ML AMPUL.NEB INHALE (21:47)
[2024-07-16] VITALS (8 sets, daily range): BP systolic 171–193; BP diastolic 72–84; PULSE 63–87; RESP 16–18; TEMP 35.8–37; O2SAT 94–97
[2024-07-16] MEDS: Loperamide HCl 2 MG CAPSULE PO (00:40)
[2024-07-16] MEDS: oxyCODONE HCl Immed Release 5 MG TABLET 10 MG PO ×6 (00:40→20:34)
[2024-07-16] MEDS: 0.9 % Sodium Chloride Flush 3 ML SYRINGE IVFLUSH ×2 (00:42→20:17)
[2024-07-16] MEDS: Piperacillin Sodium/Tazobactam 4.5 GM in 0.9 % Sodium Chloride 100 ML IV (00:42)
[2024-07-16] MEDS: Cyclobenzaprine HCl 10 MG TABLET PO ×3 (04:54→21:26)
[2024-07-16 06:54] LABS: Blood Urea Nitrogen 11 mg/dL (9-16); Calcium 8.7 mg/dL (8.4-10.2); Creatinine Clr Calc Pharmacy 71.4; Estimated Glomerular Filt Rate > 60; Glucose Random 96 mg/dL (60-115)
[2024-07-16 06:59] LABS: Anion Gap 14 (12-20); Carbon Dioxide 27 mmol/L (22-29); Chloride 101 mmol/L (96-108); Sodium 139 mmol/L (135-145)
[2024-07-16] MEDS: Nystatin Oral Susp 500,000 UNIT/5 ML ORAL.SUSP 200000 UNIT PO ×4 (08:00→20:04)
[2024-07-16] MEDS: Potassium Chloride Packet 20 MEQ PACKET 40 MEQ PO (08:01)
[2024-07-16] MEDS: busPIRone HCl 10 MG TABLET PO ×2 (08:02→20:03)
[2024-07-16] MEDS: Roflumilast 500 MCG TABLET PO (08:02)
[2024-07-16] MEDS: Aspirin 325 MG TABLET PO ×2 (08:02→20:03)
[2024-07-16] MEDS: Nicotine 14 MG PATCH.TD24 TRANSDERMA (08:02)
[2024-07-16] MEDS: amLODIPine Besylate 10 MG TABLET PO (08:02)
[2024-07-16] MEDS: Amoxicillin/Potassium Clav 875 MG TABLET PO ×2 (08:03→20:03)
[2024-07-16] MEDS: predniSONE 10 MG TABLET PO (08:03)
[2024-07-16] MEDS: Sertraline HCL 50 MG TABLET PO (08:03)
[2024-07-16] MEDS: buPROPion HCl XL 300 MG TAB.ER.24H PO (08:03)
[2024-07-16] MEDS: Cholecalciferol (Vitamin D3) 25 MCG TABLET 100 MCG PO (08:03)
[2024-07-16] MEDS: Clopidogrel Bisulfate 75 MG TABLET PO (08:03)
[2024-07-16] MEDS: Metoprolol Tartrate 25 MG TABLET 75 MG PO ×2 (08:04→20:02)
[2024-07-16] MEDS: Potassium Chloride/H20 10 MEQ/100 ML PIGGYBACK 100 MEQ IV ×4 (08:05→11:42)
[2024-07-16] MEDS: Fluticasone/Umeclidinium/Vilanterol 100/62.5/25 BLST.W.DEV 1 PUFF INHALE (08:11)
--- NOTE | 2024-07-16 12:55 | HO.PM.IMPN ---
Subjective Subjective Date of Service: 07/16/24 Interval History: c/o hip pain + muscle spasms K 3 MBSS normal BP high Review of Systems Review of Systems: Yes all other systems are reviewed and are negative Physical Exam Vital Signs: Vital Signs: Last Vital Signs Temp 98.6 F 07/16/24 11:00 Pulse 71 07/16/24 11:00 Resp 18 07/16/24 11:00 BP 171/74 H 07/16/24 11:00 Pulse Ox 94 07/16/24 11:00 O2 Del Method Room Air 07/16/24 11:00 O2 Flow Rate 3.5 07/16/24 07:19 BMI result Body Mass Index 24.8 Gen: in no acute distress HEENT: sclera anicteric, moist mucus membranes Neck: supple Lungs: scattered rhonchi and wheezes Heart: regular rate and rhythm, no murmurs Abd: soft, non-tender, non-distended Ext: no edema Skin: warm/well-perfused, incision of L hip with dry dressing Neuro: alert and oriented x3, no focal findings Psych: appropriate affect Objective Data Active Medications Acetaminophen/Butalbital/Caffeine (Butalb/Acetamin/Caff 50/325/40 Tablet) 1 tab PO Q4H PRN PRN Reason: Headache Albuterol/Ipratropium (Albuterol/Iprat 2.5/0.5mg 3 Ml Ampul.Neb) 3 ml INHALE RQ4H WHILE AWAKE PRN PRN Reason: shortness of breath or wheezing Last Admin: 07/15/24 21:47 Dose: 3 ml Documented By: MARLYS Amlodipine Besylate (Amlodipine Besylate 10 Mg Tablet) 10 mg PO DAILY [facility]; Protocol Last Admin: 07/16/24 08:02 Dose: 10 mg Documented By: SOCORRO Amoxicillin/Clavulanate Potassium (Amoxicillin/Potassium Clav 875 Mg Tablet) 875 mg PO Q12H [facility] Last Admin: 07/16/24 08:03 Dose: 875 mg Documented By: SOCORRO Aspirin (Aspirin 325 Mg Tablet) 325 mg PO BID [facility] Last Admin: 07/16/24 08:02 Dose: 325 mg Documented By: SOCORRO Atorvastatin Calcium (Atorvastatin Calcium 80 Mg Tablet) 80 mg PO BEDTIME [facility] Last Admin: 07/15/24 20:03 Dose: 80 mg Documented By: ROLAND Bupropion HCl (Bupropion Hcl Xl 300 Mg Tab.Er.24h) 300 mg PO DAILY [facility] Last Admin: 07/16/24 08:03 Dose: 300 mg Documented By: SOCORRO Buspirone HCl (Buspirone Hcl 10 Mg Tablet) 10 mg PO BID [facility] Last Admin: 07/16/24 08:02 Dose: 10 mg Documented By: SOCORRO Calcium Carbonate (Calcium Carbonate 750 Mg Tab.Chew) 750 mg PO Q4H PRN PRN Reason: Heartburn Clopidogrel Bisulfate (Clopidogrel Bisulfate 75 Mg Tablet) 75 mg PO DAILY [facility] Last Admin: 07/16/24 08:03 Dose: 75 mg Documented By: SOCORRO Cyclobenzaprine HCl (Cyclobenzaprine Hcl 10 Mg Tablet) 10 mg PO BID PRN PRN Reason: muscle spasms Fluticasone Propionate (Fluticasone Propionate Nasal 16 Gm [place]) 1 spray NOSTRIL-B BID PRN PRN Reason: allergies Fluticasone/Umeclidinium/Vilanterol (Fluticasone/Umeclidinium/Vilanterol 100/62.5/25 Blst.W.Dev) 1 puff INHALE RDAILY [facility] Last Admin: 07/16/24 08:11 Dose: 1 puff Documented By: RODRIGUEZ Haloperidol Lactate (Haloperidol Lactate 5 Mg/Ml Vial) 5 mg IM ONCE PRN PRN Reason: agitation Last Admin: 07/11/24 15:03 Dose: 5 mg Documented By: FITZ Magnesium Hydroxide (Milk Of Magnesia 30 Ml Oral.Susp) 30 ml PO DAILY PRN PRN Reason: Constipation Last Admin: 07/09/24 11:55 Dose: 30 ml Documented By: JEANNINE Melatonin (Melatonin 3 Mg Tablet) 6 mg PO BEDTIME PRN PRN Reason: Insomnia Last Admin: 07/14/24 20:19 Dose: 6 mg Documented By: PHILLIP Metoprolol Tartrate (Metoprolol Tartrate 25 Mg Tablet) 75 mg PO BID [facility]; Protocol Last Admin: 07/16/24 08:04 Dose: 75 mg Documented By: SOCORRO Nicotine (Nicotine 14 Mg Patch.Td24) 14 mg TRANSDERMA DAILY [facility] Last Admin: 07/16/24 08:02 Dose: 14 mg Documented By: SOCORRO Nystatin (Nystatin Oral Susp 500,000 Unit/5 Ml Oral.Susp) 200,000 unit PO QID [facility]; Protocol Last Admin: 07/16/24 12:48 Dose: 200,000 unit Documented By: SOCORRO Ondansetron HCl (Ondansetron Hcl 4 Mg/2 Ml Vial) 4 mg IVPUSH Q6H PRN PRN Reason: Nausea Last Admin: 07/13/24 22:00 Dose: 4 mg Documented By: SAVITA Oxycodone HCl (Oxycodone Hcl Immed Release 5 Mg Tablet) 10 mg PO Q4H PRN PRN Reason: Pain, Severe (Pain Scale 7-10) Last Admin: 07/16/24 12:47 Dose: 10 mg Documented By: SOCORRO Potassium Chloride (Potassium Chloride Packet 20 Meq Packet) 40 meq PO DAILY [facility] Last Admin: 07/16/24 08:01 Dose: 40 meq Documented By: SOCORRO Prednisone (Prednisone 10 Mg Tablet) 10 mg PO DAILY [facility]; Taper Stop: 07/18/24 08:59 Last Admin: 07/16/24 08:03 Dose: 10 mg Documented By: SOCORRO Roflumilast (Roflumilast 500 Mcg Tablet) 500 mcg PO DAILY [facility] Last Admin: 07/16/24 08:02 Dose: 500 mcg Documented By: SOCORRO Sertraline HCl (Sertraline Hcl 50 Mg Tablet) 50 mg PO DAILY [facility] Last Admin: 07/16/24 08:03 Dose: 50 mg Documented By: SOCORRO Sodium Chloride (0.9 % Sodium Chloride Flush 3 Ml Syringe) 3 ml IVFLUSH [facility] Last Admin: 07/16/24 07:13 Dose: Not Given Documented By: SOCORRO Non-Admin Reason: Previously Administered Sodium Chloride (0.9 % Sodium Chloride Flush 3 Ml Syringe) 3 ml IVFLUSH [facility] Last Admin: 07/16/24 07:13 Dose: Not Given Documented By: SOCORRO Non-Admin Reason: Previously Administered Vitamin D (Cholecalciferol (Vitamin D3) 25 Mcg Tablet) 100 mcg PO DAILY [facility] Last Admin: 07/16/24 08:03 Dose: 100 mcg Documented By: SOCORRO Labs 07/15/24 05:57 07/16/24 05:25 Labs: Laboratory Results - last 24 hr 07/11/24 07/15/24 07/15/24 19:53 19:51 Unknown Hold Purple Top Anion Gap Estim Creat Clear Calc Estimated GFR Random Glucose Calcium Stl C. cayetanensis PCR Cancelled Stool Rotavirus A PCR Cancelled Stl Adenov F 40/41 PCR Cancelled Stool Astrovirus (PCR) Cancelled Stool Campylobacter PCR Cancelled Stool Cryptosporidium PCR Cancelled Stl Sh Tox Pr E STEC PCR Cancelled Stool E coli O157 PCR Cancelled Stl Enterotoxigenic E PCR Cancelled Stool EPEC (PCR) Cancelled Stool EAEC (PCR) Cancelled Stl E. histolytica PCR Cancelled Stool Giardia Lamblia PCR Cancelled Stl P. shigelloides PCR Cancelled Stool Salmonella PCR Cancelled Stool Sapovirus (PCR) Cancelled Stl Shigella/EIEC PCR Cancelled St Y.enterocolitica PCR Cancelled Stool Vibrio (PCR) Cancelled Stl Vibrio cholerae PCR Cancelled Stl Norovirus GI/GII PCR Cancelled C. difficile Tox B Gene NEGATIVE Ur L.pneumophila Ag Not Detected Ur Strep pneumoniae Ag Detected A 07/16/24 05:25 Hold Purple Top SEE NOTE Anion Gap 14 Estim Creat Clear Calc 71.4 Estimated GFR > 60 Random Glucose 96 Calcium 8.7 Stl C. cayetanensis PCR Stool Rotavirus A PCR Stl Adenov F 40/41 PCR Stool Astrovirus (PCR) Stool Campylobacter PCR Stool Cryptosporidium PCR Stl Sh Tox Pr E STEC PCR Stool E coli O157 PCR Stl Enterotoxigenic E PCR Stool EPEC (PCR) Stool EAEC (PCR) Stl E. histolytica PCR Stool Giardia Lamblia PCR Stl P. shigelloides PCR Stool Salmonella PCR Stool Sapovirus (PCR) Stl Shigella/EIEC PCR St Y.enterocolitica PCR Stool Vibrio (PCR) Stl Vibrio cholerae PCR Stl Norovirus GI/GII PCR C. difficile Tox B Gene Ur L.pneumophila Ag Ur Strep pneumoniae Ag Assessment and Plan (1) Chest wall contusion: Status: Acute Plan d10 73yo F with COPD, chronic hypoxia on 2L O2, mood disorder, HTN, chronic opioid use, multiple sclerosis, and tobacco abuse presented after fall, admitted for pain control, ultimately found to have L femoral neck fx L femoral neck fx, diagnosed 07/11 - s/p CRPP 07/12 - pain control with oxycodone - on ASA 325mg bid for VTE ppx - PT acute toxic-metabolic encephalopathy - multifactorial, related to pneumonia + morphine + anesthesia; monitor mental status; appears to have improved multifocal pneumonia - piperacillin-tazobactam 07/11-07/16; will change to amoxicillin-clavulanate 07/16-07/18; MRSA swab negative; pneumococcal urine antigen POSITIVE - NURSING STAFFING COORDINATOR consulted, MBSS 07/15 normal and cleared for regular diet - repeat CT in 4wk to ensure resolution of infiltrates hypoK - replete IV/PO and recheck level in AM; started maintenance PO COPD exacerbation - completed doxycycline, continue to taper prednisone [end 07/18], continue nebs + controller inhaler + roflumilast HTN - increase doses of metoprolol tartate + amlodipine acute/chronic hypoxic respiratory failure - wean as tolerated to home dose of 2L CAD PAD - continue DAPT, statin muscle spasms - increase frequency of cyclobenzaprine mood disorder - continue bupropion, buspirone, sertraline VTE ppx - ASA bid per Ortho dispo - STR recommended In my clinical judgment, the patient requires continued inpatient hospitalization for the following reasons: IV ABX, respiratory failure, postop care Total time managing care of this patient today: 45 minutes. Quality Stroke Does the patient have a stroke diagnosis?: No VTE Prior VTE?: No VTE Risk Level:: Medical - moderate - high VTE Device Contraindication: N/A - Device Ordered VTE Drug Contraindication: Treatment Not Indicated
--- NOTE | 2024-07-16 16:00 | PC.NURSE ---
informed MD of pt's elevated BP's. per md ok to administer flexeril today and PRN pain med early this AM
[2024-07-16] MEDS: Atorvastatin Calcium 80 MG TABLET PO (20:02)
[2024-07-16] MEDS: Butalb/Acetamin/Caff 50/325/40 TABLET 1 TAB PO (20:03)
[2024-07-16] MEDS: Melatonin 3 MG TABLET 6 MG PO (20:04)
--- NOTE | 2024-07-16 21:26 | MHC.PIE ---
p; pt c/o pain to avery feet, muscle spasm like , per pt its chronic - pt reports taking bengay cream at home. med list shows prn flexeril bid last dose at 1251. i; dr belle notified. ok to give flexeril early e; will cont to [facility] [address] [facility]
[2024-07-16] MEDS: HYDROmorphone HCl 0.5 MG/0.5 ML SYRINGE IVPUSH (23:46)
--- NOTE | 2024-07-16 23:51 | MHC.PIE ---
p; pt c/o pain 8/10 avery feet/legs aching. note; pt given prn oxy, flexeril and floricet with pt reporting med working but not enough for pain. d/t pain, pt b/p high at 182/72 i; dr belle notified. new order dilaudid 0.5 mg now e; will cont to monitor
[2024-07-17] VITALS (11 sets, daily range): BP systolic 130–202; BP diastolic 60–96; PULSE 60–82; RESP 12–18; TEMP 36.2–36.7; O2SAT 94–96
[2024-07-17] MEDS: oxyCODONE HCl Immed Release 5 MG TABLET 10 MG PO ×3 (03:27→11:57)
--- NOTE | 2024-07-17 03:36 | MHC.PIE ---
Addendum entered by Radha hSeehan RN 07/17/24 05:01: p; bp rechecked 190/82. i; dr belle notified. new order cozaar 25 mg po now e; will cont to monitor Original Note: p; pt c/o pain 02/24 to lt hip, pt also c/o pain to tongue, b/p taken at this time / d/t pain? i; prn oxy 10 mg po given i; dr belle notified, tongue pic taken and sent. ? canker sores? e; will recheck b/p in 30min, will cont to monitor
[2024-07-17] MEDS: Losartan Potassium 25 MG TABLET PO (04:43)
[2024-07-17] MEDS: Nicotine 14 MG PATCH.TD24 TRANSDERMA (07:32)
[2024-07-17] MEDS: Nystatin Oral Susp 500,000 UNIT/5 ML ORAL.SUSP 200000 UNIT PO ×4 (07:33→20:06)
[2024-07-17] MEDS: predniSONE 10 MG TABLET PO (07:34)
[2024-07-17] MEDS: Potassium Chloride Packet 20 MEQ PACKET 40 MEQ PO (07:34)
[2024-07-17] MEDS: Cholecalciferol (Vitamin D3) 25 MCG TABLET 100 MCG PO (07:34)
[2024-07-17] MEDS: Amoxicillin/Potassium Clav 875 MG TABLET PO ×2 (07:35→20:00)
[2024-07-17] MEDS: Aspirin 325 MG TABLET PO ×2 (07:35→19:56)
[2024-07-17] MEDS: Sertraline HCL 50 MG TABLET PO (07:35)
[2024-07-17] MEDS: Metoprolol Tartrate 25 MG TABLET 75 MG PO (07:36)
[2024-07-17] MEDS: Roflumilast 500 MCG TABLET PO (07:36)
[2024-07-17] MEDS: amLODIPine Besylate 10 MG TABLET PO (07:36)
[2024-07-17] MEDS: buPROPion HCl XL 300 MG TAB.ER.24H PO (07:36)
[2024-07-17] MEDS: Clopidogrel Bisulfate 75 MG TABLET PO (07:36)
[2024-07-17] MEDS: busPIRone HCl 10 MG TABLET PO ×2 (07:36→19:56)
[2024-07-17] MEDS: 0.9 % Sodium Chloride Flush 3 ML SYRINGE IVFLUSH ×2 (07:37→13:20)
[2024-07-17] MEDS: Metoprolol Tartrate 25 MG TABLET PO (08:50)
[2024-07-17] MEDS: Fluticasone/Umeclidinium/Vilanterol 100/62.5/25 BLST.W.DEV 1 PUFF INHALE (08:51)
[2024-07-17 09:27] LABS: Anion Gap 13 (12-20); Blood Urea Nitrogen 9 mg/dL (9-16); Calcium 9.5 mg/dL (8.4-10.2); Carbon Dioxide 30 mmol/L (22-29); Chloride 96 mmol/L (96-108); Creatinine Clr Calc Pharmacy 72.7; Estimated Glomerular Filt Rate > 60; Glucose Random 112 mg/dL (60-115); Potassium 3.2 mmol/L (3.3-5.1); Sodium 136 mmol/L (135-145)
[2024-07-17 10:35] LABS: Magnesium 1.8 mg/dL (1.6-2.6)
--- NOTE | 2024-07-17 11:11 | PC.NURSE ---
Addendum entered by Dayna De Jesus RN 07/17/24 14:50: Correction in note from 14:42: pt is now confused* Addendum entered by Dayna De Jesus RN 07/17/24 14:42: MD Jurado made aware at 12:48 pt continues to endorse pricking and restlessness in upper and lower extremities at this time pt A&Ox4 and cooperative with care. Pt states this is driving me crazy the feeling wont go away . Pt is having visible twitching in upper and lower extremities. Per MD Jurado give 0.5mg of ativan IVP. Pt given Ativan per orderers, pt is not confused, trying to get OOB, pulling at lines and tubes. Camera in place, bed alarm on, 1:1 sitter at bedside for redirection and safety. Addendum entered by Dayna De Jesus RN 07/17/24 11:21: MD Jurado at bedside to assess pt, per MD 500ml of IVF ordered over 2 hrs, and Neurology to be consulted. Original Note: Pt attempted to get OOB with FUNERAL DIRECTOR'S ASSISTANT to chair, when sitting at edge of bed reporting dizziness and SOB. BP 191/81 o2 93% on 3L, HR 66. FUNERAL DIRECTOR'S ASSISTANT reported red mucous with BM, stool brown pt was helped back to laying position. Per MD Jurado ortho static BPs checked 172/70 HR 68 laying, 161/69 HR 69 sitting, 130/60 HR 60 standing. Pt reporting dizziness at this time. Pt was able to lay herself back down in the bed with minimal assistance. Pt reporting a picking and restless sensation in her Bilateral upper and lower extremities. Noted that pt has twitching in her upper extremities. MD Jurado made aware.
[2024-07-17] MEDS: Multivitamin TABLET 1 TAB PO (11:33)
[2024-07-17] MEDS: 0.9 % Sodium Chloride 500 ML 100 ML IVCONT (11:34)
[2024-07-17] MEDS: Cyclobenzaprine HCl 10 MG TABLET PO (11:57)
[2024-07-17 12:05] LABS: Alanine Aminotransferase 168 U/L (0-31); Albumin Level 3.3 g/dL (3.5-5.0); Alkaline Phosphatase 127 U/L (39-117); Aspartate Amino Transferase 193 U/L (5-31); Bilirubin Direct 0.2 mg/dL (0.0-0.5); Bilirubin Total 0.3 mg/dL (0.0-1.0); Total Protein 6.3 g/dL (6.5-8.0)
[2024-07-17 12:57] LABS: TSH reflex Free T4 1.04 uIU/mL (0.32-4.0)
[2024-07-17] MEDS: LORazepam 2 MG/ML VIAL 0.5 MG IVPUSH (13:17)
[2024-07-17] MEDS: Mag&Al/Sim/Diphenhyd/Lidocaine 10 ML ORAL.SUSP PO (13:31)
[2024-07-17 13:47] LABS: VBG Base Excess 10.6 mmol/L; VBG HCO3 33 mmol/L (22-26); VBG pCO2 36 mmHg; VBG pH 7.57 (7.32-7.43); VBG pO2 76 mmHg
[2024-07-17 13:47] LABS: Venous Blood Gas Refer to POC result
--- NOTE | 2024-07-17 15:02 | MHC.CM.PN ---
EMR REVIEWED AND PER MD ROUNDS, PT HAS NOT YET BEEN MEDICALLY CLEARED FOR DC TO STR AT [facility]. (SHAKY, BP ELEVATED, MALAISE) [facility] UPDATED. CM WILL CONTINUE TO FOLLOW FOR ANY CHANGE TO DC PLAN.
--- NOTE | 2024-07-17 15:49 | HO.PM.IMPN ---
Subjective Subjective Date of Service: 07/17/24 Interval History: dizzy and having involuntary twitching/spasms of legs and arms given 0.5 mg lorazepam IV and now confused technically orthostatic with BP 172/70->130/60 with standing; also symptomatic with dizziness breathing is OK Review of Systems Review of Systems: Yes all other systems are reviewed and are negative Physical Exam Vital Signs: Vital Signs: Last Vital Signs Temp 97.4 F 07/17/24 15:06 Pulse 78 07/17/24 15:06 Resp 18 07/17/24 15:06 BP 136/96 H 07/17/24 15:06 Pulse Ox 95 07/17/24 15:06 O2 Del Method Nasal Cannula 07/17/24 15:06 O2 Flow Rate 3 07/17/24 15:06 BMI result Body Mass Index 24.8 Gen: was in NAD this AM but now is disoriented and having occasional twitching movements of arms and legs bilaterally HEENT: sclera anicteric, moist mucus membranes Neck: supple Lungs: diminished Heart: regular rate and rhythm, no murmurs Abd: soft, non-tender, non-distended Ext: no edema Skin: warm/well-perfused, incision of L hip with dry dressing Neuro: alert, disoriented, moving all extremities with twitching as noted above Psych: impaired insight [was normal this morning] Objective Data Active Medications Acetaminophen/Butalbital/Caffeine (Butalb/Acetamin/Caff 50/325/40 Tablet) 1 tab PO Q4H PRN PRN Reason: Headache Last Admin: 07/16/24 20:03 Dose: 1 tab Documented By: KAREN Albuterol/Ipratropium (Albuterol/Iprat 2.5/0.5mg 3 Ml Ampul.Neb) 3 ml INHALE RQ4H WHILE AWAKE PRN PRN Reason: shortness of breath or wheezing Last Admin: 07/15/24 21:47 Dose: 3 ml Documented By: MARLYS Amlodipine Besylate (Amlodipine Besylate 10 Mg Tablet) 10 mg PO DAILY [facility]; Protocol Last Admin: 07/17/24 07:36 Dose: 10 mg Documented By: MED Amoxicillin/Clavulanate Potassium (Amoxicillin/Potassium Clav 875 Mg Tablet) 875 mg PO Q12H [facility] Last Admin: 07/17/24 07:35 Dose: 875 mg Documented By: MED Aspirin (Aspirin 325 Mg Tablet) 325 mg PO BID [facility] Last Admin: 07/17/24 07:35 Dose: 325 mg Documented By: MED Atorvastatin Calcium (Atorvastatin Calcium 80 Mg Tablet) 80 mg PO BEDTIME [facility] Last Admin: 07/16/24 20:02 Dose: 80 mg Documented By: KAREN Bupropion HCl (Bupropion Hcl Xl 300 Mg Tab.Er.24h) 300 mg PO DAILY [facility] Last Admin: 07/17/24 07:36 Dose: 300 mg Documented By: MED Buspirone HCl (Buspirone Hcl 10 Mg Tablet) 10 mg PO BID [facility] Last Admin: 07/17/24 07:36 Dose: 10 mg Documented By: MED Calcium Carbonate (Calcium Carbonate 750 Mg Tab.Chew) 750 mg PO Q4H PRN PRN Reason: Heartburn Clopidogrel Bisulfate (Clopidogrel Bisulfate 75 Mg Tablet) 75 mg PO DAILY [facility] Last Admin: 07/17/24 07:36 Dose: 75 mg Documented By: MED Fluticasone Propionate (Fluticasone Propionate Nasal 16 Gm [place]) 1 spray NOSTRIL-B BID PRN PRN Reason: allergies Fluticasone/Umeclidinium/Vilanterol (Fluticasone/Umeclidinium/Vilanterol 100/62.5/25 Blst.W.Dev) 1 puff INHALE RDAILY [facility] Last Admin: 07/17/24 08:51 Dose: 1 puff Documented By: YANIRA Lidocaine/Diphenhydr/Alum/Mg/Simeth (Mag&Al/Sim/Diphenhyd/Lidocaine 10 Ml Oral.Susp) 10 ml PO Q4H PRN; Protocol PRN Reason: mouth pain Last Admin: 07/17/24 13:31 Dose: 10 ml Documented By: ATILIO Losartan Potassium (Losartan Potassium 50 Mg Tablet) 50 mg PO BEDTIME [facility]; Protocol Magnesium Hydroxide (Milk Of Magnesia 30 Ml Oral.Susp) 30 ml PO DAILY PRN PRN Reason: Constipation Last Admin: 07/09/24 11:55 Dose: 30 ml Documented By: JEANNINE Melatonin (Melatonin 3 Mg Tablet) 6 mg PO BEDTIME PRN PRN Reason: Insomnia Last Admin: 07/16/24 20:04 Dose: 6 mg Documented By: KAREN Metoprolol Tartrate (Metoprolol Tartrate 100 Mg Tablet) 100 mg PO BID [facility]; Protocol Last Admin: 07/17/24 08:48 Dose: Not Given Documented By: ATILIO Non-Admin Reason: per MD give 25mg po once, hold 100mg Multivitamins/Vitamin C (Multivitamin Tablet) 1 tab PO DAILY [facility] Last Admin: 07/17/24 11:33 Dose: 1 tab Documented By: ATILIO Nicotine (Nicotine 14 Mg Patch.Td24) 14 mg TRANSDERMA DAILY [facility] Last Admin: 07/17/24 07:32 Dose: 14 mg Documented By: MED Nystatin (Nystatin Oral Susp 500,000 Unit/5 Ml Oral.Susp) 200,000 unit PO QID [facility]; Protocol Last Admin: 07/17/24 12:51 Dose: 200,000 unit Documented By: ATILIO Ondansetron HCl (Ondansetron Hcl 4 Mg/2 Ml Vial) 4 mg IVPUSH Q6H PRN PRN Reason: Nausea Last Admin: 07/13/24 22:00 Dose: 4 mg Documented By: SAVITA Oxycodone HCl (Oxycodone Hcl Immed Release 5 Mg Tablet) 5 mg PO Q4H PRN PRN Reason: Pain, Severe (Pain Scale 7-10) Potassium Chloride (Potassium Chloride Packet 20 Meq Packet) 40 meq PO DAILY [facility] Last Admin: 07/17/24 07:34 Dose: 40 meq Documented By: MED Prednisone (Prednisone 10 Mg Tablet) 10 mg PO DAILY [facility]; Taper Stop: 07/18/24 08:59 Last Admin: 07/17/24 07:34 Dose: 10 mg Documented By: MED Roflumilast (Roflumilast 500 Mcg Tablet) 500 mcg PO DAILY [facility] Last Admin: 07/17/24 07:36 Dose: 500 mcg Documented By: MED Sertraline HCl (Sertraline Hcl 50 Mg Tablet) 50 mg PO DAILY [facility] Last Admin: 07/17/24 07:35 Dose: 50 mg Documented By: MED Sodium Chloride (0.9 % Sodium Chloride Flush 3 Ml Syringe) 3 ml IVFLUSH QSHIFT [facility] Last Admin: 07/17/24 13:20 Dose: 3 ml Documented By: ATILIO Sodium Chloride (0.9 % Sodium Chloride Flush 3 Ml Syringe) 3 ml IVFLUSH QSHIFT [facility] Last Admin: 07/17/24 15:05 Dose: Not Given Documented By: ATILIO Non-Admin Reason: IV Running Vitamin D (Cholecalciferol (Vitamin D3) 25 Mcg Tablet) 100 mcg PO DAILY [facility] Last Admin: 07/17/24 07:34 Dose: 100 mcg Documented By: MED Labs 07/15/24 05:57 07/17/24 08:46 Labs: Laboratory Results - last 24 hr 07/17/24 07/17/24 08:46 13:42 VBG pH 7.57 H VBG pCO2 36 VBG pO2 76 VBG HCO3 33 H VBG O2 Saturation 96.0 VBG Base Excess 10.6 Anion Gap 13 Estim Creat Clear Calc 72.7 Estimated GFR > 60 Random Glucose 112 Calcium 9.5 D Magnesium 1.8 Total Bilirubin 0.3 Direct Bilirubin 0.2 AST 193 H ALT 168 H Alkaline Phosphatase 127 H Total Creatine Kinase 82 Total Protein 6.3 L Albumin 3.3 L TSH 1.04 Assessment and Plan (1) Chest wall contusion: Status: Acute Plan d11 73yo F with COPD, chronic hypoxia on 2L O2, mood disorder, HTN, chronic opioid use, multiple sclerosis, and tobacco abuse presented after fall, admitted for pain control, ultimately found to have L femoral neck fx acute toxic-metabolic encephalopathy - multifactorial and seems to wax and wane- related to pneumonia + meds [avoid IV morphine + lorazepam] + anesthesia - will d/c cyclobenzaprine involuntary twitching - generalized, not focal; will consult Neurology - seems to have respiratory alkalosis, which can provoked twitching; from hyperventilation? L femoral neck fx, diagnosed 07/11 - s/p CRPP 07/12 - pain control with oxycodone - on ASA 325mg bid for VTE ppx - ongoing PT multifocal pneumonia - piperacillin-tazobactam 07/11-07/16; changed to amoxicillin-clavulanate 07/16-07/18; MRSA swab negative; pneumococcal urine antigen POSITIVE - BRAIDER TENDER consulted, MBSS 07/15 normal and cleared for regular diet - repeat CT in 4wk to ensure resolution of infiltrates hypoK - repleted IV/PO and now on maintenance COPD exacerbation - completed doxycycline, continue to taper prednisone [end date 07/18], continue nebs + controller inhaler + roflumilast HTN - increased doses of metoprolol tartate + amlodipine + losartan ?orthostasis - will give 500 mL of NS acute/chronic hypoxic respiratory failure - wean as tolerated to home dose of 2L CAD PAD - continue DAPT, statin mood disorder - continue bupropion, buspirone, sertraline VTE ppx - ASA bid per Ortho dispo - STR recommended I updated pt's granddaughter Ese by phone, [phone] In my clinical judgment, the patient requires continued inpatient hospitalization for the following reasons: encephalopathy Total time managing care of this patient today: 55 minutes. Quality Stroke Does the patient have a stroke diagnosis?: No VTE Prior VTE?: No VTE Risk Level:: Medical - moderate - high VTE Device Contraindication: N/A - Device Ordered VTE Drug Contraindication: Treatment Not Indicated
[2024-07-17] MEDS: HYDROmorphone HCl 0.5 MG/0.5 ML SYRINGE IVPUSH (17:47)
[2024-07-17] MEDS: Metoprolol Tartrate 100 MG TABLET PO (19:55)
[2024-07-17] MEDS: Losartan Potassium 50 MG TABLET PO (19:56)
[2024-07-17] MEDS: Atorvastatin Calcium 80 MG TABLET PO (20:03)
[2024-07-17] MEDS: Cyclobenzaprine HCl 5 MG TABLET PO (21:42)
[2024-07-17] MEDS: oxyCODONE HCl Immed Release 5 MG TABLET PO (21:42)
[2024-07-17] MEDS: QUEtiapine Fumarate 25 MG TABLET PO (22:56)
[2024-07-18] VITALS (7 sets, daily range): BP systolic 144–180; BP diastolic 67–87; PULSE 66–87; RESP 16–18; TEMP 36.3–37.3; O2SAT 92–95
[2024-07-18] MEDS: oxyCODONE HCl Immed Release 5 MG TABLET PO ×5 (02:08→21:40)
[2024-07-18] MEDS: Mag&Al/Sim/Diphenhyd/Lidocaine 10 ML ORAL.SUSP PO (06:12)
[2024-07-18 06:34] LABS: Hematocrit 35.7 % (37.0-47.0); Hemoglobin 12.5 g/dl (12.0-16.0); Mean Corpuscular Hemoglobin 30.5 pg (27.0-33.0); Mean Corpuscular Volume 87.1 fL (80.0-98.0); Platelet Count 322 X10*3/uL (160-400); Red Cell Distribution Width 12.8 % (11.0-16.0); White Blood Count 14.1 X10*3/uL (4.8-10.8)
[2024-07-18 06:41] LABS: Ammonia 36 umol/L (13-55)
[2024-07-18 07:06] LABS: Alanine Aminotransferase 189 U/L (0-31); Albumin Level 3.1 g/dL (3.5-5.0); Alkaline Phosphatase 125 U/L (39-117); Aspartate Amino Transferase 166 U/L (5-31); Bilirubin Total 0.4 mg/dL (0.0-1.0); Blood Urea Nitrogen 12 mg/dL (9-16); Calcium 9.1 mg/dL (8.4-10.2); Creatinine Clr Calc Pharmacy 72.7; Estimated Glomerular Filt Rate > 60; Glucose Random 117 mg/dL (60-115); Total Protein 6.1 g/dL (6.5-8.0)
[2024-07-18 07:35] LABS: Anion Gap 16 (12-20); Carbon Dioxide 25 mmol/L (22-29); Chloride 99 mmol/L (96-108); Potassium 2.8 mmol/L (3.3-5.1); Sodium 137 mmol/L (135-145)
[2024-07-18] MEDS: Fluticasone/Umeclidinium/Vilanterol 100/62.5/25 BLST.W.DEV 1 PUFF INHALE (08:05)
[2024-07-18] MEDS: Nystatin Oral Susp 500,000 UNIT/5 ML ORAL.SUSP 200000 UNIT PO ×4 (08:15→21:42)
[2024-07-18] MEDS: Potassium Chloride Packet 20 MEQ PACKET 40 MEQ PO ×3 (08:15→20:43)
[2024-07-18] MEDS: Amoxicillin/Potassium Clav 875 MG TABLET PO ×2 (08:16→20:41)
[2024-07-18] MEDS: Multivitamin TABLET 1 TAB PO (08:16)
[2024-07-18] MEDS: Cholecalciferol (Vitamin D3) 25 MCG TABLET 100 MCG PO (08:16)
[2024-07-18] MEDS: Aspirin 325 MG TABLET PO ×2 (08:16→20:41)
[2024-07-18] MEDS: amLODIPine Besylate 10 MG TABLET PO (08:17)
[2024-07-18] MEDS: buPROPion HCl XL 300 MG TAB.ER.24H PO (08:17)
[2024-07-18] MEDS: Nicotine 14 MG PATCH.TD24 TRANSDERMA (08:17)
[2024-07-18] MEDS: Sertraline HCL 50 MG TABLET PO (08:17)
[2024-07-18] MEDS: busPIRone HCl 10 MG TABLET PO ×2 (08:17→20:43)
[2024-07-18] MEDS: Clopidogrel Bisulfate 75 MG TABLET PO (08:17)
[2024-07-18] MEDS: Metoprolol Tartrate 100 MG TABLET PO ×2 (08:17→20:41)
[2024-07-18] MEDS: Roflumilast 500 MCG TABLET PO (08:17)
[2024-07-18] MEDS: 0.9 % Sodium Chloride Flush 3 ML SYRINGE IVFLUSH ×2 (08:33→17:02)
[2024-07-18] MEDS: Albuterol/Iprat 2.5/0.5MG 3 ML AMPUL.NEB INHALE (09:53)
[2024-07-18] MEDS: Cyclobenzaprine HCl 5 MG TABLET PO ×2 (11:12→20:42)
[2024-07-18] MEDS: LORazepam 1 MG TABLET PO (12:17)
[2024-07-18] MEDS: Loperamide HCl 2 MG CAPSULE PO (12:17)
--- NOTE | 2024-07-18 14:28 | P.PNIM_ITS ---
Subjective Subjective Date of Service: 07/18/24 Interval History: No acute issues overnight. Remains anxious with voluntary twitching Review of Systems Denies chest pain Denies shortness of breath Denies nausea vomiting diarrhea Denies fever chills Physical Exam 2 Vital Signs: Vital Signs: Last Vital Signs Temp 97.9 F 07/18/24 12:00 Pulse 66 07/18/24 12:00 Resp 16 07/18/24 12:00 BP 144/67 H 07/18/24 12:00 Pulse Ox 95 07/18/24 12:00 O2 Del Method Nasal Cannula 07/18/24 12:00 O2 Flow Rate 3 07/18/24 12:00 BMI result Body Mass Index 24.8 Const: Other: Awake anxious appearing no acute distress Resp: Other: Clear to auscultation bilaterally no rales rhonchi or wheezes Cardio: Other: No S4; positive S1-S2; no S3 murmurs rubs or gallops GI: Other: Soft nontender nondistended normoactive bowel sounds Extrem: Other: No edema bilaterally Objective Data Active Medications Acetaminophen/Butalbital/Caffeine (Butalb/Acetamin/Caff 50/325/40 Tablet) 1 tab PO Q4H PRN PRN Reason: Headache Last Admin: 07/16/24 20:03 Dose: 1 tab Documented By: KAREN Albuterol/Ipratropium (Albuterol/Iprat 2.5/0.5mg 3 Ml Ampul.Neb) 3 ml INHALE RQ4H WHILE AWAKE PRN PRN Reason: shortness of breath or wheezing Last Admin: 07/18/24 09:53 Dose: 3 ml Documented By: CORIN Amlodipine Besylate (Amlodipine Besylate 10 Mg Tablet) 10 mg PO DAILY [facility]; Protocol Last Admin: 07/18/24 08:17 Dose: 10 mg Documented By: JEANNINE Amoxicillin/Clavulanate Potassium (Amoxicillin/Potassium Clav 875 Mg Tablet) 875 mg PO Q12H [facility] Last Admin: 07/18/24 08:16 Dose: 875 mg Documented By: JEANNINE Aspirin (Aspirin 325 Mg Tablet) 325 mg PO BID [facility] Last Admin: 07/18/24 08:16 Dose: 325 mg Documented By: JEANNINE Atorvastatin Calcium (Atorvastatin Calcium 80 Mg Tablet) 80 mg PO BEDTIME [facility] Last Admin: 07/17/24 20:03 Dose: 80 mg Documented By: JONO Bupropion HCl (Bupropion Hcl Xl 300 Mg Tab.Er.24h) 300 mg PO DAILY [facility] Last Admin: 07/18/24 08:17 Dose: 300 mg Documented By: JEANNINE Buspirone HCl (Buspirone Hcl 10 Mg Tablet) 10 mg PO BID [facility] Last Admin: 07/18/24 08:17 Dose: 10 mg Documented By: JEANNINE Calcium Carbonate (Calcium Carbonate 750 Mg Tab.Chew) 750 mg PO Q4H PRN PRN Reason: Heartburn Clopidogrel Bisulfate (Clopidogrel Bisulfate 75 Mg Tablet) 75 mg PO DAILY [facility] Last Admin: 07/18/24 08:17 Dose: 75 mg Documented By: JEANNINE Cyclobenzaprine HCl (Cyclobenzaprine Hcl 5 Mg Tablet) 5 mg PO TID PRN PRN Reason: spasms Last Admin: 07/18/24 11:12 Dose: 5 mg Documented By: JEANNINE Fluticasone Propionate (Fluticasone Propionate Nasal 16 Gm [place]) 1 spray NOSTRIL-B BID PRN PRN Reason: allergies Fluticasone/Umeclidinium/Vilanterol (Fluticasone/Umeclidinium/Vilanterol 100/62.5/25 Blst.W.Dev) 1 puff INHALE RDAILY [facility] Last Admin: 07/18/24 08:05 Dose: 1 puff Documented By: RODRIGUEZ Comments: computer not working Lidocaine/Diphenhydr/Alum/Mg/Simeth (Mag&Al/Sim/Diphenhyd/Lidocaine 10 Ml Oral.Susp) 10 ml PO Q4H PRN; Protocol PRN Reason: mouth pain Last Admin: 07/18/24 06:12 Dose: 10 ml Documented By: ELIER Loperamide HCl (Loperamide Hcl 2 Mg Capsule) 2 mg PO Q4H PRN PRN Reason: Diarrhea Last Admin: 07/18/24 12:17 Dose: 2 mg Documented By: JEANNINE Lorazepam (Lorazepam 1 Mg Tablet) 1 mg PO Q4H PRN PRN Reason: anxiety/restlessness Last Admin: 07/18/24 12:17 Dose: 1 mg Documented By: JEANNINE Losartan Potassium (Losartan Potassium 50 Mg Tablet) 50 mg PO BEDTIME [facility]; Protocol Last Admin: 07/17/24 19:56 Dose: 50 mg Documented By: JONO Magnesium Hydroxide (Milk Of Magnesia 30 Ml Oral.Susp) 30 ml PO DAILY PRN PRN Reason: Constipation Last Admin: 07/09/24 11:55 Dose: 30 ml Documented By: JEANNINE Melatonin (Melatonin 3 Mg Tablet) 6 mg PO BEDTIME PRN PRN Reason: Insomnia Last Admin: 07/16/24 20:04 Dose: 6 mg Documented By: KAREN Metoprolol Tartrate (Metoprolol Tartrate 100 Mg Tablet) 100 mg PO BID [facility]; Protocol Last Admin: 07/18/24 08:17 Dose: 100 mg Documented By: JEANNINE Multivitamins/Vitamin C (Multivitamin Tablet) 1 tab PO DAILY [facility] Last Admin: 07/18/24 08:16 Dose: 1 tab Documented By: JEANNINE Nicotine (Nicotine 14 Mg Patch.Td24) 14 mg TRANSDERMA DAILY [facility] Last Admin: 07/18/24 08:17 Dose: 14 mg Documented By: JEANNINE Nystatin (Nystatin Oral Susp 500,000 Unit/5 Ml Oral.Susp) 200,000 unit PO QID [facility]; Protocol Last Admin: 07/18/24 12:44 Dose: 200,000 unit Documented By: JEANNINE Ondansetron HCl (Ondansetron Hcl 4 Mg/2 Ml Vial) 4 mg IVPUSH Q6H PRN PRN Reason: Nausea Last Admin: 07/13/24 22:00 Dose: 4 mg Documented By: SAVITA Oxycodone HCl (Oxycodone Hcl Immed Release 5 Mg Tablet) 5 mg PO Q4H PRN PRN Reason: Pain, Severe (Pain Scale 7-10) Last Admin: 07/18/24 11:12 Dose: 5 mg Documented By: JEANNINE Potassium Chloride (Potassium Chloride Packet 20 Meq Packet) 40 meq PO DAILY [facility] Last Admin: 07/18/24 08:15 Dose: 40 meq Documented By: JEANNINE Potassium Chloride (Potassium Chloride Packet 20 Meq Packet) 40 meq PO BID [facility] Stop: 07/19/24 09:01 Last Admin: 07/18/24 08:15 Dose: 40 meq Documented By: JEANNINE Roflumilast (Roflumilast 500 Mcg Tablet) 500 mcg PO DAILY [facility] Last Admin: 07/18/24 08:17 Dose: 500 mcg Documented By: JEANNINE Sertraline HCl (Sertraline Hcl 50 Mg Tablet) 50 mg PO DAILY [facility] Last Admin: 07/18/24 08:17 Dose: 50 mg Documented By: JEANNINE Sodium Chloride (0.9 % Sodium Chloride Flush 3 Ml Syringe) [facility] Last Admin: 07/18/24 08:33 Dose: 3 ml Documented By: JEANNINE Sodium Chloride (0.9 % Sodium Chloride Flush 3 Ml Syringe) 3 ml IVFLUSH [facility] Last Admin: 07/18/24 08:35 Dose: Not Given Documented By: JEANNINE Non-Admin Reason: Previously Administered Vitamin D (Cholecalciferol (Vitamin D3) 25 Mcg Tablet) 100 mcg PO DAILY [facility] Last Admin: 07/18/24 08:16 Dose: 100 mcg Documented By: JEANNINE Labs 07/18/24 06:24 07/18/24 06:24 Labs: Laboratory Results - last 24 hr 07/17/24 07/18/24 13:36 06:24 MCV Cancelled 87.1 MCH Cancelled 30.5 MCHC Cancelled 35.0 RDW Cancelled 12.8 Plt Count Cancelled 322 MPV Cancelled 9.0 L Absolute Nucleated RBC Cancelled 0.000 Nucleated RBC % (auto) Cancelled 0.0 Anion Gap 16 Estim Creat Clear Calc 72.7 Estimated GFR > 60 Random Glucose 117 H Calcium 9.1 Total Bilirubin 0.4 AST 166 H ALT 189 H Alkaline Phosphatase 125 H Ammonia 36 Total Protein 6.1 L Albumin 3.1 L Assessment and Plan (1) Subcapital fracture of left hip: Status: Acute (2) Essential hypertension: Status: Acute Plan 73yo F with COPD, chronic hypoxia on 2L O2, mood disorder, HTN, chronic opioid use, multiple sclerosis, and tobacco abuse presented after fall, admitted for pain control, ultimately found to have L femoral neck fx 1.Acute toxic-metabolic encephalopathy - multifactorial and seems to wax and wane- related to pneumonia + meds - will d/c cyclobenzaprine 2.Involuntary twitching - generalized, not focal; will consult Neurology - seems to have respiratory alkalosis, which can provoked twitching; from hyperventilation -replete divalents 3.Left femoral neck fx, diagnosed 07/11 - s/p CRPP 07/12 - pain control with oxycodone - on ASA 325mg bid for VTE ppx - ongoing PT 4.Multifocal pneumonia - piperacillin-tazobactam 07/11-07/16; changed to amoxicillin-clavulanate 07/16- 07/18; MRSA swab negative; pneumococcal urine antigen POSITIVE - BOTTOM BLEACHER consulted, MBSS 07/15 normal and cleared for regular diet - repeat CT in 4wk to ensure resolution of infiltrates 5.HTN -acceptable control on current therapies -adjust as indicated 6.Mood disorder/anxiety - continue bupropion, buspirone, sertraline -cautious Ativan ASA bid per Ortho Full code dispo - STR recommended In my clinical judgment, the patient requires continued inpatient hospitalization for the following reasons: encephalopathy Quality Stroke Does the patient have a stroke diagnosis?: No VTE Prior VTE?: No VTE Risk Level:: Medical - moderate - high VTE Device Contraindication: N/A - Device Ordered VTE Drug Contraindication: Treatment Not Indicated
[2024-07-18] MEDS: Losartan Potassium 50 MG TABLET PO (20:41)
[2024-07-18] MEDS: Atorvastatin Calcium 80 MG TABLET PO (20:43)
[2024-07-19] VITALS (7 sets, daily range): BP systolic 144–186; BP diastolic 70–83; PULSE 76–92; RESP 16–20; TEMP 36.2–36.7; O2SAT 90–93
[2024-07-19] MEDS: oxyCODONE HCl Immed Release 5 MG TABLET PO ×3 (02:26→17:04)
[2024-07-19 07:07] LABS: Hematocrit 36.2 % (37.0-47.0); Hemoglobin 12.6 g/dl (12.0-16.0); Mean Corpuscular HGB Conc 34.8 g/dl (31.0-35.0); Mean Corpuscular Hemoglobin 30.4 pg (27.0-33.0); Mean Corpuscular Volume 87.4 fL (80.0-98.0); Mean Platelet Volume 9.4 fL (9.4-12.3); Platelet Count 346 X10*3/uL (160-400); Red Blood Count 4.14 X10*6/uL (4.20-5.50); White Blood Count 23.4 X10*3/uL (4.8-10.8)
[2024-07-19 07:19] LABS: Alanine Aminotransferase 166 U/L (0-31); Albumin Level 3.3 g/dL (3.5-5.0); Alkaline Phosphatase 125 U/L (39-117); Anion Gap 15 (12-20); Aspartate Amino Transferase 104 U/L (5-31); Bilirubin Total 0.4 mg/dL (0.0-1.0); Blood Urea Nitrogen 11 mg/dL (9-16); Calcium 8.9 mg/dL (8.4-10.2); Carbon Dioxide 22 mmol/L (22-29); Chloride 103 mmol/L (96-108); Creatinine Clr Calc Pharmacy 75.2; Estimated Glomerular Filt Rate > 60; Glucose Fasting 150 mg/dL (60-99); Potassium 3.5 mmol/L (3.3-5.1); Sodium 136 mmol/L (135-145); Total Protein 6.3 g/dL (6.5-8.0)
[2024-07-19 07:49] LABS: SLIDE REVIEW MANUAL DIFF
[2024-07-19] MEDS: Potassium Chloride Packet 20 MEQ PACKET 40 MEQ PO ×2 (08:09→08:10)
[2024-07-19 08:11] LABS: Band Neutrophils Percent 2 % (3-5); Lymphocytes Absolute Manual 1.2 X10*3/uL (1.2-4.9); Lymphocytes Percent Manual 5 % (20-40); Monocytes Absolute Manual 0.2 X10*3/uL (0.1-1.2); Monocytes Percent Manual 1 % (2-11); Neutrophils Percent Manual 92 % (45-73)
[2024-07-19] MEDS: Nicotine 14 MG PATCH.TD24 TRANSDERMA (08:11)
[2024-07-19 08:12] LABS: Burr Cells 1+ (0-2) /OIF; Hypersegmented Neutrophils PRESENT; Platelet Estimate NORMAL (NORMAL); Platelet Morphology Comment NORMAL; RBC Morphology NOTED
[2024-07-19] MEDS: Aspirin 325 MG TABLET PO ×2 (08:12→21:13)
[2024-07-19] MEDS: Clopidogrel Bisulfate 75 MG TABLET PO (08:12)
[2024-07-19] MEDS: Sertraline HCL 50 MG TABLET PO (08:12)
[2024-07-19] MEDS: amLODIPine Besylate 10 MG TABLET PO (08:12)
[2024-07-19] MEDS: Roflumilast 500 MCG TABLET PO (08:12)
[2024-07-19] MEDS: buPROPion HCl XL 300 MG TAB.ER.24H PO (08:13)
[2024-07-19] MEDS: Cholecalciferol (Vitamin D3) 25 MCG TABLET 100 MCG PO (08:13)
[2024-07-19] MEDS: Nystatin Oral Susp 500,000 UNIT/5 ML ORAL.SUSP 200000 UNIT PO ×4 (08:13→21:19)
[2024-07-19] MEDS: 0.9 % Sodium Chloride Flush 3 ML SYRINGE IVFLUSH ×3 (08:13→21:14)
[2024-07-19] MEDS: Metoprolol Tartrate 100 MG TABLET PO ×2 (08:13→21:14)
[2024-07-19] MEDS: busPIRone HCl 10 MG TABLET PO ×2 (08:13→21:14)
[2024-07-19] MEDS: Multivitamin TABLET 1 TAB PO (08:13)
[2024-07-19] MEDS: Amoxicillin/Potassium Clav 875 MG TABLET PO ×2 (08:13→21:13)
[2024-07-19] MEDS: Fluticasone/Umeclidinium/Vilanterol 100/62.5/25 BLST.W.DEV 1 PUFF INHALE (08:27)
--- NOTE | 2024-07-19 09:50 | PM.PSYCN ---
History of Present Illness Date of Service: 07/19/2024 Chief Complaint: fall [facility] Medical History History of CAD (coronary artery disease) Peripheral vascular disease Chronic back pain GERD (gastroesophageal reflux disease) High cholesterol HTN (hypertension) Immune disorder COPD (chronic obstructive pulmonary disease) Multiple sclerosis Surgical History History of angioplasty History of heart artery stent Diagnostics Vital Signs (24Hr): Vital Signs - 24 hr 07/18/24 12:00 07/18/24 16:00 07/18/24 20:00 Temperature 97.9 F 99.1 F 97.5 F Pulse Rate 66 76 87 Respiratory Rate 16 18 17 Blood Pressure 144/67 H 150/87 H 170/72 H Pulse Oximetry 95 92 92 Oxygen Delivery Method Nasal Cannula Nasal Cannula Nasal Cannula Oxygen Flow Rate 3 3 3 07/18/24 23:37 07/19/24 02:59 07/19/24 07:54 Temperature 98.2 F 98.1 F 97.7 F Pulse Rate 71 76 85 Respiratory Rate 16 16 18 Blood Pressure 166/77 H 163/81 H 177/75 H Pulse Oximetry 93 92 Oxygen Delivery Method Nasal Cannula Nasal Cannula Oxygen Flow Rate 3 3 07/19/24 08:27 Temperature Pulse Rate 85 Respiratory Rate 18 Blood Pressure Pulse Oximetry Oxygen Delivery Method Oxygen Flow Rate BMI result Body Mass Index 24.8 Labs 07/19/24 06:33 07/19/24 06:33 Labs: Laboratory Results - last 48 hr 07/17/24 07/17/24 07/17/24 08:46 13:36 13:42 WBC Cancelled RBC Cancelled Hgb Cancelled Hct Cancelled MCV Cancelled MCH Cancelled MCHC Cancelled RDW Cancelled Plt Count Cancelled MPV Cancelled Immature Gran % (Auto) Neut % (Auto) Lymph % (Auto) [place] % (Auto) Eos % (Auto) Baso % (Auto) Lymph # (Auto) [place] # (Auto) Eos # (Auto) Baso # (Auto) Abs Immat Gran (auto) Absolute Neuts (auto) Absolute Nucleated RBC Cancelled Nucleated RBC % (auto) Cancelled Neutrophils % (Manual) Band Neutrophils % Lymphocytes % (Manual) Monocytes % (Manual) Abs Neuts (Manual) Lymphocytes # (Manual) Monocytes # (Manual) Hypersegmented Neuts Platelet Estimate Plt Morphology Comment RBC Morphology [place] Cells Smear Tech's Comments VBG pH 7.57 H VBG pCO2 36 VBG pO2 76 VBG HCO3 33 H VBG O2 Saturation 96.0 VBG Base Excess 10.6 Sodium Potassium Chloride Carbon Dioxide Anion Gap BUN Creatinine Estim Creat Clear Calc Estimated GFR Random Glucose Fasting Glucose Calcium Magnesium 1.8 Total Bilirubin 0.3 Direct Bilirubin 0.2 AST 193 H ALT 168 H Alkaline Phosphatase 127 H Ammonia Total Creatine Kinase 82 Total Protein 6.3 L Albumin 3.3 L TSH 1.04 07/18/24 07/19/24 06:24 06:33 WBC 14.1 H 23.4 H RBC 4.10 L 4.14 L Hgb 12.5 12.6 Hct 35.7 L 36.2 L MCV 87.1 87.4 MCH 30.5 30.4 MCHC 35.0 34.8 RDW 12.8 13.0 Plt Count 322 346 MPV 9.0 L 9.4 Immature Gran % (Auto) Cancelled Neut % (Auto) Cancelled Lymph % (Auto) Cancelled [place] % (Auto) Cancelled Eos % (Auto) Cancelled Baso % (Auto) Cancelled Lymph # (Auto) Cancelled [place] # (Auto) Cancelled Eos # (Auto) Cancelled Baso # (Auto) Cancelled Abs Immat Gran (auto) Cancelled Absolute Neuts (auto) Cancelled Absolute Nucleated RBC 0.000 0.000 Nucleated RBC % (auto) 0.0 0.0 Neutrophils % (Manual) 92 H Band Neutrophils % 2 L Lymphocytes % (Manual) 5 L Monocytes % (Manual) 1 L Abs Neuts (Manual) 22.0 H Lymphocytes # (Manual) 1.2 Monocytes # (Manual) 0.2 Hypersegmented Neuts PRESENT Platelet Estimate NORMAL Plt Morphology Comment NORMAL RBC Morphology NOTED Fabi Cells 1+ (0-2) Smear Tech's Comments MANUAL DIFF VBG pH VBG pCO2 VBG pO2 VBG HCO3 VBG O2 Saturation VBG Base Excess Sodium 137 136 Potassium 2.8 L* 3.5 D Chloride 99 103 Carbon Dioxide 25 22 Anion Gap 16 15 BUN 12 11 Creatinine 0.58 0.56 Estim Creat Clear Calc 72.7 75.2 Estimated GFR > 60 > 60 Random Glucose 117 H Fasting Glucose 150 H Calcium 9.1 8.9 Magnesium Total Bilirubin 0.4 0.4 Direct Bilirubin AST 166 H 104 H ALT 189 H 166 H Alkaline Phosphatase 125 H 125 H Ammonia 36 Total Creatine Kinase Total Protein 6.1 L 6.3 L Albumin 3.1 L 3.3 L TSH Imaging Radiology Impressions: ITS Impressions Chest X-Ray 07/07/24 15:15 IMPRESSION: Left lower lobe atelectasis versus pneumonia. Electronically signed by: Morgan Chapin MD 07/07/2024 03:26 PM EST RP Guidance Fluoroscopy 07/12/24 09:10 IMPRESSION: Fluoroscopy during procedure. Please see procedure report for additional information. Electronically signed by: Morgan Chapin MD 07/13/2024 08:08 AM EST RP Modified Barium Swallow 07/15/24 07:41 IMPRESSION: 1. Trace laryngeal penetration with thin consistency barium. No subglottic aspiration observed. 2. Moderate cricopharyngeal achalasia. 3. Status post anterior and interbody fusion at C5-C6. Refer to the speech therapy report for further clarification This procedure was performed by Zach Rivera PA-C, and supervised by Dr. Gongora Electronically signed by: Kee Gongora MD 07/17/2024 09:17 AM EST RP Medications Medications Current Medications Acetaminophen/Butalbital/Caffeine (Butalb/Acetamin/Caff 50/325/40 Tablet) 1 tab PO Q4H PRN PRN Reason: Headache Last Admin: 07/16/24 20:03 Dose: 1 tab Albuterol/Ipratropium (Albuterol/Iprat 2.5/0.5mg 3 Ml Ampul.Neb) 3 ml INHALE RQ4H WHILE AWAKE PRN PRN Reason: shortness of breath or wheezing Last Admin: 07/18/24 09:53 Dose: 3 ml Amlodipine Besylate (Amlodipine Besylate 10 Mg Tablet) 10 mg PO DAILY [facility]; Protocol Last Admin: 07/19/24 08:12 Dose: 10 mg Amoxicillin/Clavulanate Potassium (Amoxicillin/Potassium Clav 875 Mg Tablet) 875 mg PO Q12H [facility] Last Admin: 07/19/24 08:13 Dose: 875 mg Aspirin (Aspirin 325 Mg Tablet) 325 mg PO BID [facility] Last Admin: 07/19/24 08:12 Dose: 325 mg Atorvastatin Calcium (Atorvastatin Calcium 80 Mg Tablet) 80 mg PO BEDTIME [facility] Last Admin: 07/18/24 20:43 Dose: 80 mg Bupropion HCl (Bupropion Hcl Xl 300 Mg Tab.Er.24h) 300 mg PO DAILY [facility] Last Admin: 07/19/24 08:13 Dose: 300 mg Buspirone HCl (Buspirone Hcl 10 Mg Tablet) 10 mg PO BID [facility] Last Admin: 07/19/24 08:13 Dose: 10 mg Calcium Carbonate (Calcium Carbonate 750 Mg Tab.Chew) 750 mg PO Q4H PRN PRN Reason: Heartburn Clopidogrel Bisulfate (Clopidogrel Bisulfate 75 Mg Tablet) 75 mg PO DAILY [facility] Last Admin: 07/19/24 08:12 Dose: 75 mg Cyclobenzaprine HCl (Cyclobenzaprine Hcl 5 Mg Tablet) 5 mg PO TID PRN PRN Reason: spasms Last Admin: 07/18/24 20:42 Dose: 5 mg Fluticasone Propionate (Fluticasone Propionate Nasal 16 Gm [place]) 1 spray NOSTRIL-B BID PRN PRN Reason: allergies Fluticasone/Umeclidinium/Vilanterol (Fluticasone/Umeclidinium/Vilanterol 100/62.5/25 Blst.W.Dev) 1 puff INHALE RDAILY [facility] Last Admin: 07/19/24 08:27 Dose: 1 puff Hydroxyzine HCl (Hydroxyzine Hcl 25 Mg Tablet) 25 mg PO Q6H PRN PRN Reason: anxiety/restlessness Lidocaine/Diphenhydr/Alum/Mg/Simeth (Mag&Al/Sim/Diphenhyd/Lidocaine 10 Ml Oral.Susp) 10 ml PO Q4H PRN; Protocol PRN Reason: mouth pain Last Admin: 07/18/24 06:12 Dose: 10 ml Loperamide HCl (Loperamide Hcl 2 Mg Capsule) 2 mg PO Q4H PRN PRN Reason: Diarrhea Last Admin: 07/18/24 12:17 Dose: 2 mg Lorazepam (Lorazepam 1 Mg Tablet) 1 mg PO Q4H PRN PRN Reason: anxiety/restlessness Last Admin: 07/18/24 12:17 Dose: 1 mg Losartan Potassium (Losartan Potassium 50 Mg Tablet) 50 mg PO BEDTIME [facility]; Protocol Last Admin: 07/18/24 20:41 Dose: 50 mg Magnesium Hydroxide (Milk Of Magnesia 30 Ml Oral.Susp) 30 ml PO DAILY PRN PRN Reason: Constipation Last Admin: 07/09/24 11:55 Dose: 30 ml Melatonin (Melatonin 3 Mg Tablet) 6 mg PO BEDTIME PRN PRN Reason: Insomnia Last Admin: 07/16/24 20:04 Dose: 6 mg Metoprolol Tartrate (Metoprolol Tartrate 100 Mg Tablet) 100 mg PO BID [facility]; Protocol Last Admin: 07/19/24 08:13 Dose: 100 mg Multivitamins/Vitamin C (Multivitamin Tablet) 1 tab PO DAILY [facility] Last Admin: 07/19/24 08:13 Dose: 1 tab Nicotine (Nicotine 14 Mg Patch.Td24) 14 mg TRANSDERMA DAILY [facility] Last Admin: 07/19/24 08:11 Dose: 14 mg Nystatin (Nystatin Oral Susp 500,000 Unit/5 Ml Oral.Susp) 200,000 unit PO QID [facility]; Protocol Last Admin: 07/19/24 08:13 Dose: 200,000 unit Ondansetron HCl (Ondansetron Hcl 4 Mg/2 Ml Vial) 4 mg IVPUSH Q6H PRN PRN Reason: Nausea Last Admin: 07/13/24 22:00 Dose: 4 mg Oxycodone HCl (Oxycodone Hcl Immed Release 5 Mg Tablet) 5 mg PO Q4H PRN PRN Reason: Pain, Severe (Pain Scale 7-10) Last Admin: 07/19/24 06:35 Dose: 5 mg Potassium Chloride (Potassium Chloride Packet 20 Meq Packet) 40 meq PO DAILY [facility] Last Admin: 07/19/24 08:09 Dose: 40 meq Roflumilast (Roflumilast 500 Mcg Tablet) 500 mcg PO DAILY [facility] Last Admin: 07/19/24 08:12 Dose: 500 mcg Sertraline HCl (Sertraline Hcl 50 Mg Tablet) 50 mg PO DAILY [facility] Last Admin: 07/19/24 08:12 Dose: 50 mg Sodium Chloride (0.9 % Sodium Chloride Flush 3 Ml Syringe) 3 ml IVFLUSH QSHIFT [facility] Last Admin: 07/19/24 08:13 Dose: 3 ml Sodium Chloride (0.9 % Sodium Chloride Flush 3 Ml Syringe) 3 ml IVFLUSH QSHIFT [facility] Last Admin: 07/19/24 08:14 Dose: Not Given Vitamin D (Cholecalciferol (Vitamin D3) 25 Mcg Tablet) 100 mcg PO DAILY [facility] Last Admin: 07/19/24 08:13 Dose: 100 mcg Allergies Allergies Allergy/AdvReac Type Severity Reaction Status Date / Time codeine [CODEINE] Allergy Unknown Hives Verified 07/06/24 18:37 Assessment & Plan Total time managing care of this patient today ____ minutes.
[2024-07-19] MEDS: Cyclobenzaprine HCl 5 MG TABLET PO (12:14)
[2024-07-19] MEDS: hydrOXYzine HCL 25 MG TABLET PO ×2 (12:15→21:37)
--- NOTE | 2024-07-19 12:15 | P.PNIM_ITS ---
Subjective Subjective Date of Service: 07/19/24 Interval History: Remains confused and appears to be responding to internal stimuli. Likely related to Ativan use Review of Systems Denies chest pain Denies shortness of breath Denies nausea vomiting diarrhea Denies fever chills Physical Exam 2 Vital Signs: Vital Signs: Last Vital Signs Temp 97.7 F 07/19/24 07:54 Pulse 85 07/19/24 08:27 Resp 18 07/19/24 08:27 BP 177/75 H 07/19/24 07:54 Pulse Ox 90 L 07/19/24 09:00 O2 Del Method Nasal Cannula 07/19/24 09:00 O2 Flow Rate 3 07/19/24 09:00 BMI result Body Mass Index 24.8 Const: Other: Awake anxious appearing no acute distress Resp: Other: Clear to auscultation bilaterally no rales rhonchi or wheezes Cardio: Other: No S4; positive S1-S2; no S3 murmurs rubs or gallops GI: Other: Soft nontender nondistended normoactive bowel sounds Extrem: Other: No edema bilaterally Objective Data Active Medications Acetaminophen/Butalbital/Caffeine (Butalb/Acetamin/Caff 50/325/40 Tablet) 1 tab PO Q4H PRN PRN Reason: Headache Last Admin: 07/16/24 20:03 Dose: 1 tab Documented By: KAREN Albuterol/Ipratropium (Albuterol/Iprat 2.5/0.5mg 3 Ml Ampul.Neb) 3 ml INHALE RQ4H WHILE AWAKE PRN PRN Reason: shortness of breath or wheezing Last Admin: 07/18/24 09:53 Dose: 3 ml Documented By: CORIN Amlodipine Besylate (Amlodipine Besylate 10 Mg Tablet) 10 mg PO DAILY [facility]; Protocol Last Admin: 07/19/24 08:12 Dose: 10 mg Documented By: JEANNINE Amoxicillin/Clavulanate Potassium (Amoxicillin/Potassium Clav 875 Mg Tablet) 875 mg PO Q12H [facility] Last Admin: 07/19/24 08:13 Dose: 875 mg Documented By: JEANNINE Aspirin (Aspirin 325 Mg Tablet) 325 mg PO BID [facility] Last Admin: 07/19/24 08:12 Dose: 325 mg Documented By: JEANNINE Atorvastatin Calcium (Atorvastatin Calcium 80 Mg Tablet) 80 mg PO BEDTIME [facility] Last Admin: 07/18/24 20:43 Dose: 80 mg Documented By: ELIER Bupropion HCl (Bupropion Hcl Xl 300 Mg Tab.Er.24h) 300 mg PO DAILY [facility] Last Admin: 07/19/24 08:13 Dose: 300 mg Documented By: JEANNINE Buspirone HCl (Buspirone Hcl 10 Mg Tablet) 10 mg PO BID [facility] Last Admin: 07/19/24 08:13 Dose: 10 mg Documented By: JEANNINE Calcium Carbonate (Calcium Carbonate 750 Mg Tab.Chew) 750 mg PO Q4H PRN PRN Reason: Heartburn Clopidogrel Bisulfate (Clopidogrel Bisulfate 75 Mg Tablet) 75 mg PO DAILY [facility] Last Admin: 07/19/24 08:12 Dose: 75 mg Documented By: JEANNINE Cyclobenzaprine HCl (Cyclobenzaprine Hcl 5 Mg Tablet) 5 mg PO TID PRN PRN Reason: spasms Last Admin: 07/19/24 12:14 Dose: 5 mg Documented By: JEANNINE Fluticasone Propionate (Fluticasone Propionate Nasal 16 Gm [place]) 1 spray NOSTRIL-B BID PRN PRN Reason: allergies Fluticasone/Umeclidinium/Vilanterol (Fluticasone/Umeclidinium/Vilanterol 100/62.5/25 Blst.W.Dev) 1 puff INHALE RDAILY [facility] Last Admin: 07/19/24 08:27 Dose: 1 puff Documented By: CORIN Hydroxyzine HCl (Hydroxyzine Hcl 25 Mg Tablet) 25 mg PO Q6H PRN PRN Reason: anxiety/restlessness Last Admin: 07/19/24 12:15 Dose: 25 mg Documented By: JEANNINE Lidocaine/Diphenhydr/Alum/Mg/Simeth (Mag&Al/Sim/Diphenhyd/Lidocaine 10 Ml Oral.Susp) 10 ml PO Q4H PRN; Protocol PRN Reason: mouth pain Last Admin: 07/18/24 06:12 Dose: 10 ml Documented By: ELIER Loperamide HCl (Loperamide Hcl 2 Mg Capsule) 2 mg PO Q4H PRN PRN Reason: Diarrhea Last Admin: 07/18/24 12:17 Dose: 2 mg Documented By: JEANNINE Lorazepam (Lorazepam 1 Mg Tablet) 1 mg PO Q4H PRN PRN Reason: anxiety/restlessness Last Admin: 07/18/24 12:17 Dose: 1 mg Documented By: JEANNINE Losartan Potassium (Losartan Potassium 50 Mg Tablet) 50 mg PO BEDTIME [facility]; Protocol Last Admin: 07/18/24 20:41 Dose: 50 mg Documented By: ELIER Magnesium Hydroxide (Milk Of Magnesia 30 Ml Oral.Susp) 30 ml PO DAILY PRN PRN Reason: Constipation Last Admin: 07/09/24 11:55 Dose: 30 ml Documented By: JEANNINE Melatonin (Melatonin 3 Mg Tablet) 6 mg PO BEDTIME PRN PRN Reason: Insomnia Last Admin: 07/16/24 20:04 Dose: 6 mg Documented By: KAREN Metoprolol Tartrate (Metoprolol Tartrate 100 Mg Tablet) 100 mg PO BID [facility]; Protocol Last Admin: 07/19/24 08:13 Dose: 100 mg Documented By: JEANNINE Multivitamins/Vitamin C (Multivitamin Tablet) 1 tab PO DAILY [facility] Last Admin: 07/19/24 08:13 Dose: 1 tab Documented By: JEANNINE Nicotine (Nicotine 14 Mg Patch.Td24) 14 mg TRANSDERMA DAILY [facility] Last Admin: 07/19/24 08:11 Dose: 14 mg Documented By: JEANNINE Nystatin (Nystatin Oral Susp 500,000 Unit/5 Ml Oral.Susp) 200,000 unit PO QID [facility]; Protocol Last Admin: 07/19/24 12:15 Dose: 200,000 unit Documented By: JEANNINE Ondansetron HCl (Ondansetron Hcl 4 Mg/2 Ml Vial) 4 mg IVPUSH Q6H PRN PRN Reason: Nausea Last Admin: 07/13/24 22:00 Dose: 4 mg Documented By: SAVITA Oxycodone HCl (Oxycodone Hcl Immed Release 5 Mg Tablet) 5 mg PO Q4H PRN PRN Reason: Pain, Severe (Pain Scale 7-10) Last Admin: 07/19/24 06:35 Dose: 5 mg Documented By: JONO Potassium Chloride (Potassium Chloride Packet 20 Meq Packet) 40 meq PO DAILY [facility] Last Admin: 07/19/24 08:09 Dose: 40 meq Documented By: JEANNINE Roflumilast (Roflumilast 500 Mcg Tablet) 500 mcg PO DAILY [facility] Last Admin: 07/19/24 08:12 Dose: 500 mcg Documented By: JEANNINE Sertraline HCl (Sertraline Hcl 50 Mg Tablet) 50 mg PO DAILY [facility] Last Admin: 07/19/24 08:12 Dose: 50 mg Documented By: JEANNINE Sodium Chloride (0.9 % Sodium Chloride Flush 3 Ml Syringe) 3 ml IVFLUSH QSCOFT [facility] Last Admin: 07/19/24 08:13 Dose: 3 ml Documented By: JEANNINE Sodium Chloride (0.9 % Sodium Chloride Flush 3 Ml Syringe) 3 ml IVFLUSH [facility] Last Admin: 07/19/24 08:14 Dose: Not Given Documented By: JENANINE Non-Admin Reason: Previously Administered Vitamin D (Cholecalciferol (Vitamin D3) 25 Mcg Tablet) 100 mcg PO DAILY [facility] Last Admin: 07/19/24 08:13 Dose: 100 mcg Documented By: JEANNINE Labs 07/19/24 06:33 07/19/24 06:33 Labs: Laboratory Results - last 24 hr 07/19/24 06:33 MCV 87.4 MCH 30.4 MCHC 34.8 RDW 13.0 Plt Count 346 MPV 9.4 Immature Gran % (Auto) Cancelled Neut % (Auto) Cancelled Lymph % (Auto) Cancelled [place] % (Auto) Cancelled Eos % (Auto) Cancelled Baso % (Auto) Cancelled Lymph # (Auto) Cancelled [place] # (Auto) Cancelled Eos # (Auto) Cancelled Baso # (Auto) Cancelled Abs Immat Gran (auto) Cancelled Absolute Neuts (auto) Cancelled Absolute Nucleated RBC 0.000 Nucleated RBC % (auto) 0.0 Neutrophils % (Manual) 92 H Band Neutrophils % 2 L Lymphocytes % (Manual) 5 L Monocytes % (Manual) 1 L Abs Neuts (Manual) 22.0 H Lymphocytes # (Manual) 1.2 Monocytes # (Manual) 0.2 Hypersegmented Neuts PRESENT Platelet Estimate NORMAL Plt Morphology Comment NORMAL RBC Morphology NOTED Fabi Cells 1+ (0-2) Smear Tech's Comments MANUAL DIFF Anion Gap 15 Estim Creat Clear Calc 75.2 Estimated GFR > 60 Fasting Glucose 150 H Calcium 8.9 Total Bilirubin 0.4 AST 104 H ALT 166 H Alkaline Phosphatase 125 H Total Protein 6.3 L Albumin 3.3 L Assessment and Plan (1) Pneumonia: Status: Acute (2) Subcapital fracture of left hip: Status: Acute Plan 73yo F with COPD, chronic hypoxia on 2L O2, mood disorder, HTN, chronic opioid use, multiple sclerosis, and tobacco abuse presented after fall, admitted for pain control, ultimately found to have L femoral neck fx 1.Acute toxic-metabolic encephalopathy - multifactorial and seems to wax and wane- related to pneumonia + meds ... Ativan given yesterday for extreme anxiety with tremors -will ask psych input for further management 2.Involuntary twitching - generalized, not focal; will consult Neurology - seems to have respiratory alkalosis, which can provoked twitching; from hyperventilation -replete divalents 3.Left femoral neck fx, diagnosed 07/11 - s/p CRPP 07/12 - pain control with oxycodone - on ASA 325mg bid for VTE ppx - ongoing PT 4.Multifocal pneumonia - piperacillin-tazobactam 07/11-07/16; changed to amoxicillin-clavulanate 07/16- 07/18; MRSA swab negative; pneumococcal urine antigen POSITIVE - [employer] consulted, MBSS 07/15 normal and cleared for regular diet - repeat CT in 4wk to ensure resolution of infiltrates -white count rising. Continue Zosyn and we will discuss with ID [id number] -acceptable control on current therapies -adjust as indicated 6.Mood disorder/anxiety - continue bupropion, buspirone, sertraline -cautious Ativan ASA bid per Ortho Full code dispo - STR recommended In my clinical judgment, the patient requires continued inpatient hospitalization for the following reasons: encephalopathy Quality Stroke Does the patient have a stroke diagnosis?: No VTE Prior VTE?: No VTE Risk Level:: Medical - moderate - high VTE Device Contraindication: N/A - Device Ordered VTE Drug Contraindication: Treatment Not Indicated
--- NOTE | 2024-07-19 16:08 | P.CNPS_ITS ---
History of Present Illness Date of Service: 07/19/24 Chief Complaint: fall Reason for Consult: psychosis Requesting physician: Mike Calderon Discussed with referring provider: Yes Sources of Information: patient interviewed and chart reviewed HPI Narrative: Patient is a 73 year old female with history of COPD, chronic hypoxia on 2L O2, mood disorder, HTN, chronic opioid use, multiple sclerosis, and tobacco abuse; presented after fall, admitted for pain control, ultimately found to have L femoral neck fx. During psychiatric assessment, patient presents alert and oriented x3. Calm and cooperative. Patient reports history of anxiety and depression her entire life . Patient was able to explain reason for hospitalization. She reports not having an outpatient psychiatrist or therapist. She does report talking to a counselor after her children and found it beneficial. denies any history of inpatient psychiatric hospitalizations. Denies any substance use. Patient reports she receives her psychiatric medications through her PCP. Patient reports she feels her anxiety and depression are well managed with her current medication regimen. Denies SI/HI/VH/AH. Patient does not appear to be responding to internal stimuli at this time. Patient' s , Aristides; present for assessment with permission from patient. Patient's reports no history of SA/SIB. He also denies any behavioral issues. stated, she isn't saying anything crazy. She ain't nuts. She just wants to go home . Discussed case with Dr. Calderon. Past Psychiatric History: Denies history of inpatient psychiatric hospitalization. Obtain psychiatric medications from her PCP. Medical Evaluation Reviewed: Yes [facility] Medical History History of CAD (coronary artery disease) Peripheral vascular disease Chronic back pain GERD (gastroesophageal reflux disease) High cholesterol HTN (hypertension) Immune disorder COPD (chronic obstructive pulmonary disease) Multiple sclerosis Surgical History History of angioplasty History of heart artery stent Family History: depression Social History: lives with , 2 children who are . retired from [employer]. Substance History: denies Trauma History: yes Diagnostics Vital Signs (24Hr): Vital Signs - 24 hr 07/18/24 20:00 07/18/24 23:37 07/19/24 02:59 Temperature 97.5 F 98.2 F 98.1 F Pulse Rate 87 71 76 Respiratory Rate 17 16 16 Blood Pressure 170/72 H 166/77 H 163/81 H Pulse Oximetry 92 93 92 Oxygen Delivery Method Nasal Cannula Nasal Cannula Nasal Cannula Oxygen Flow Rate 3 3 3 07/19/24 07:54 07/19/24 08:27 07/19/24 09:00 Temperature 97.7 F Pulse Rate 85 85 Respiratory Rate 18 18 Blood Pressure 177/75 H Pulse Oximetry 90 L Oxygen Delivery Method Nasal Cannula Oxygen Flow Rate 3 BMI result Body Mass Index 24.8 Labs 07/19/24 06:33 07/19/24 06:33 Labs: Laboratory Results - last 48 hr 07/17/24 07/18/24 07/19/24 13:36 06:24 06:33 WBC Cancelled 14.1 H 23.4 H RBC Cancelled 4.10 L 4.14 L Hgb Cancelled 12.5 12.6 Hct Cancelled 35.7 L 36.2 L MCV Cancelled 87.1 87.4 MCH Cancelled 30.5 30.4 MCHC Cancelled 35.0 34.8 RDW Cancelled 12.8 13.0 Plt Count Cancelled 322 346 MPV Cancelled 9.0 L 9.4 Immature Gran % (Auto) Cancelled Neut % (Auto) Cancelled Lymph % (Auto) Cancelled [place] % (Auto) Cancelled Eos % (Auto) Cancelled Baso % (Auto) Cancelled Lymph # (Auto) Cancelled [place] # (Auto) Cancelled Eos # (Auto) Cancelled Baso # (Auto) Cancelled Abs Immat Gran (auto) Cancelled Absolute Neuts (auto) Cancelled Absolute Nucleated RBC Cancelled 0.000 0.000 Nucleated RBC % (auto) Cancelled 0.0 0.0 Neutrophils % (Manual) 92 H Band Neutrophils % 2 L Lymphocytes % (Manual) 5 L Monocytes % (Manual) 1 L Abs Neuts (Manual) 22.0 H Lymphocytes # (Manual) 1.2 Monocytes # (Manual) 0.2 Hypersegmented Neuts PRESENT Platelet Estimate NORMAL Plt Morphology Comment NORMAL RBC Morphology NOTED Fabi Cells 1+ (0-2) Smear Tech's Comments MANUAL DIFF Sodium 137 136 Potassium 2.8 L* 3.5 D Chloride 99 103 Carbon Dioxide 25 22 Anion Gap 16 15 BUN 12 11 Creatinine 0.58 0.56 Estim Creat Clear Calc 72.7 75.2 Estimated GFR > 60 > 60 Random Glucose 117 H Fasting Glucose 150 H Calcium 9.1 8.9 Total Bilirubin 0.4 0.4 AST 166 H 104 H ALT 189 H 166 H Alkaline Phosphatase 125 H 125 H Ammonia 36 Total Protein 6.1 L 6.3 L Albumin 3.1 L 3.3 L Imaging Radiology Impressions: ITS Impressions Chest X-Ray 07/07/24 15:15 IMPRESSION: Left lower lobe atelectasis versus pneumonia. Electronically signed by: Morgan Chapin MD 07/07/2024 03:26 PM EST RP Guidance Fluoroscopy 07/12/24 09:10 IMPRESSION: Fluoroscopy during procedure. Please see procedure report for additional information. Electronically signed by: Morgan Chapin MD 07/13/2024 08:08 AM EST RP Modified Barium Swallow 07/15/24 07:41 IMPRESSION: 1. Trace laryngeal penetration with thin consistency barium. No subglottic aspiration observed. 2. Moderate cricopharyngeal achalasia. 3. Status post anterior and interbody fusion at C5-C6. Refer to the speech therapy report for further clarification This procedure was performed by Zach Rivera PA-C, and supervised by Dr. Gongora Electronically signed by: Kee Gongora MD 07/17/2024 09:17 AM EST RP Mental Status Exam Mental Status Exam Patient Appearance: Appropriate Patient Orientation: Person, Place, Time and Situation Level of Consciousness: Awake and Alert Patient Behavior: Anxious and Good Eye Contact Mood Description: Anxious Affect Description: Anxious Ability to Follow Directions: Good Speech Pattern: Clear and Appropriate Memory Description: Intact Hallucinations: None Delusions: Not Present Thought Process: Intact Thought Content: positive for Intact Judgement: Fair Medications Medications Current Medications Acetaminophen/Butalbital/Caffeine (Butalb/Acetamin/Caff 50/325/40 Tablet) 1 tab PO Q4H PRN PRN Reason: Headache Last Admin: 07/16/24 20:03 Dose: 1 tab Albuterol/Ipratropium (Albuterol/Iprat 2.5/0.5mg 3 Ml Ampul.Neb) 3 ml INHALE RQ4H WHILE AWAKE PRN PRN Reason: shortness of breath or wheezing Last Admin: 07/18/24 09:53 Dose: 3 ml Amlodipine Besylate (Amlodipine Besylate 10 Mg Tablet) 10 mg PO DAILY [facility]; Protocol Last Admin: 07/19/24 08:12 Dose: 10 mg Amoxicillin/Clavulanate Potassium (Amoxicillin/Potassium Clav 875 Mg Tablet) 875 mg PO Q12H [facility] Last Admin: 07/19/24 08:13 Dose: 875 mg Aspirin (Aspirin 325 Mg Tablet) 325 mg PO BID [facility] Last Admin: 07/19/24 08:12 Dose: 325 mg Atorvastatin Calcium (Atorvastatin Calcium 80 Mg Tablet) 80 mg PO BEDTIME [facility] Last Admin: 07/18/24 20:43 Dose: 80 mg Bupropion HCl (Bupropion Hcl Xl 300 Mg Tab.Er.24h) 300 mg PO DAILY [facility] Last Admin: 07/19/24 08:13 Dose: 300 mg Buspirone HCl (Buspirone Hcl 10 Mg Tablet) 10 mg PO BID [facility] Last Admin: 07/19/24 08:13 Dose: 10 mg Calcium Carbonate (Calcium Carbonate 750 Mg Tab.Chew) 750 mg PO Q4H PRN PRN Reason: Heartburn Clopidogrel Bisulfate (Clopidogrel Bisulfate 75 Mg Tablet) 75 mg PO DAILY [facility] Last Admin: 07/19/24 08:12 Dose: 75 mg Cyclobenzaprine HCl (Cyclobenzaprine Hcl 5 Mg Tablet) 5 mg PO TID PRN PRN Reason: spasms Last Admin: 07/19/24 12:14 Dose: 5 mg Fluticasone Propionate (Fluticasone Propionate Nasal 16 Gm [place]) 1 spray NOSTRIL-B BID PRN PRN Reason: allergies Fluticasone/Umeclidinium/Vilanterol (Fluticasone/Umeclidinium/Vilanterol 100/62.5/25 Blst.W.Dev) 1 puff INHALE RDAILY [facility] Last Admin: 07/19/24 08:27 Dose: 1 puff Hydroxyzine HCl (Hydroxyzine Hcl 25 Mg Tablet) 25 mg PO Q6H PRN PRN Reason: anxiety/restlessness Last Admin: 07/19/24 12:15 Dose: 25 mg Lidocaine/Diphenhydr/Alum/Mg/Simeth (Mag&Al/Sim/Diphenhyd/Lidocaine 10 Ml Oral.Susp) 10 ml PO Q4H PRN; Protocol PRN Reason: mouth pain Last Admin: 07/18/24 06:12 Dose: 10 ml Loperamide HCl (Loperamide Hcl 2 Mg Capsule) 2 mg PO Q4H PRN PRN Reason: Diarrhea Last Admin: 07/18/24 12:17 Dose: 2 mg Lorazepam (Lorazepam 1 Mg Tablet) 1 mg PO Q4H PRN PRN Reason: anxiety/restlessness Last Admin: 07/18/24 12:17 Dose: 1 mg Losartan Potassium (Losartan Potassium 50 Mg Tablet) 50 mg PO BEDTIME [facility]; Protocol Last Admin: 07/18/24 20:41 Dose: 50 mg Magnesium Hydroxide (Milk Of Magnesia 30 Ml Oral.Susp) 30 ml PO DAILY PRN PRN Reason: Constipation Last Admin: 07/09/24 11:55 Dose: 30 ml Melatonin (Melatonin 3 Mg Tablet) 6 mg PO BEDTIME PRN PRN Reason: Insomnia Last Admin: 07/16/24 20:04 Dose: 6 mg Metoprolol Tartrate (Metoprolol Tartrate 100 Mg Tablet) 100 mg PO BID [facility]; Protocol Last Admin: 07/19/24 08:13 Dose: 100 mg Multivitamins/Vitamin C (Multivitamin Tablet) 1 tab PO DAILY [facility] Last Admin: 07/19/24 08:13 Dose: 1 tab Nicotine (Nicotine 14 Mg Patch.Td24) 14 mg TRANSDERMA DAILY [facility] Last Admin: 07/19/24 08:11 Dose: 14 mg Nystatin (Nystatin Oral Susp 500,000 Unit/5 Ml Oral.Susp) 200,000 unit PO QID [facility]; Protocol Last Admin: 07/19/24 12:15 Dose: 200,000 unit Ondansetron HCl (Ondansetron Hcl 4 Mg/2 Ml Vial) 4 mg IVPUSH Q6H PRN PRN Reason: Nausea Last Admin: 07/13/24 22:00 Dose: 4 mg Oxycodone HCl (Oxycodone Hcl Immed Release 5 Mg Tablet) 5 mg PO Q4H PRN PRN Reason: Pain, Severe (Pain Scale 7-10) Last Admin: 07/19/24 06:35 Dose: 5 mg Potassium Chloride (Potassium Chloride Packet 20 Meq Packet) 40 meq PO DAILY [facility] Last Admin: 07/19/24 08:09 Dose: 40 meq Roflumilast (Roflumilast 500 Mcg Tablet) 500 mcg PO DAILY [facility] Last Admin: 07/19/24 08:12 Dose: 500 mcg Sertraline HCl (Sertraline Hcl 50 Mg Tablet) 50 mg PO DAILY [facility] Last Admin: 07/19/24 08:12 Dose: 50 mg Sodium Chloride (0.9 % Sodium Chloride Flush 3 Ml Syringe) 3 ml IVFLUSH QSHIFT [facility] Last Admin: 07/19/24 08:13 Dose: 3 ml Sodium Chloride (0.9 % Sodium Chloride Flush 3 Ml Syringe) 3 ml IVFLUSH QSAZFT [facility] Last Admin: 07/19/24 08:14 Dose: Not Given Vitamin D (Cholecalciferol (Vitamin D3) 25 Mcg Tablet) 100 mcg PO DAILY [facility] Last Admin: 07/19/24 08:13 Dose: 100 mcg Allergies Allergies Allergy/AdvReac Type Severity Reaction Status Date / Time codeine [CODEINE] Allergy Unknown Hives Verified 07/06/24 18:37 Assessment & Plan Assessment & Plan (1) MDD (major depressive disorder), recurrent episode: Status: Acute Code(s): F33.9 - Major depressive disorder, recurrent, unspecified Plan Recommendations: -no indication for intervention at this time. -continue current psychiatric medications -re-consult psych if re-appearance of psychosis Total time managing care of this patient today _30___ minutes. Patient educated on: diagnosis and medication risk/benefits
[2024-07-19] MEDS: Atorvastatin Calcium 80 MG TABLET PO (21:13)
[2024-07-19] MEDS: Losartan Potassium 50 MG TABLET PO (21:13)
[2024-07-20] VITALS (8 sets, daily range): BP systolic 119–163; BP diastolic 58–89; PULSE 68–91; RESP 18–92; TEMP 36.2–37; O2SAT 18–93
[2024-07-20] MEDS: oxyCODONE HCl Immed Release 5 MG TABLET PO ×4 (02:31→19:54)
[2024-07-20] MEDS: Cyclobenzaprine HCl 5 MG TABLET PO (04:45)
[2024-07-20 06:18] LABS: Basophils Absolute Auto 0.1 X10*3/uL (0.0-0.2); Basophils Percent Auto 0.2 % (0-2); Hematocrit 35.3 % (37.0-47.0); Hemoglobin 12.3 g/dl (12.0-16.0); Imm Gran Abs Auto 0.39 X10*3/uL (0.00-0.03); Imm Gran Pct Auto 1.5 % (0.0-0.4); Lymphocytes Absolute Auto 1.4 X10*3/uL (1.2-4.9); Lymphocytes Percent Auto 5.7 % (20-40); MANUAL DIFF FLAG SCAN; Mean Corpuscular HGB Conc 34.8 g/dl (31.0-35.0); Mean Corpuscular Hemoglobin 30.2 pg (27.0-33.0); Mean Corpuscular Volume 86.7 fL (80.0-98.0); Mean Platelet Volume 9.5 fL (9.4-12.3); Monocytes Absolute Auto 1.4 X10*3/uL (0.1-1.2); Monocytes Percent Auto 5.5 % (2-11); Neutrophils Absolute Auto 21.9 x10*3/uL (2.0-8.3); Neutrophils Percent Auto 87.1 % (45-73); Platelet Count 369 X10*3/uL (160-400); Red Blood Count 4.07 X10*6/uL (4.20-5.50); SCAN SMEAR FLAG 1; White Blood Count 25.2 X10*3/uL (4.8-10.8)
[2024-07-20 06:19] LABS: Alanine Aminotransferase 119 U/L (0-31); Albumin Level 3.2 g/dL (3.5-5.0); Alkaline Phosphatase 122 U/L (39-117); Anion Gap 15 (12-20); Aspartate Amino Transferase 62 U/L (5-31); Bilirubin Total 0.5 mg/dL (0.0-1.0); Blood Urea Nitrogen 11 mg/dL (9-16); Carbon Dioxide 21 mmol/L (22-29); Chloride 102 mmol/L (96-108); Estimated Glomerular Filt Rate > 60; Glucose Fasting 105 mg/dL (60-99); Potassium 3.2 mmol/L (3.3-5.1); Sodium 135 mmol/L (135-145); Total Protein 6.3 g/dL (6.5-8.0)
[2024-07-20 07:22] LABS: SLIDE REVIEW VERIFIED
[2024-07-20] MEDS: Nystatin Oral Susp 500,000 UNIT/5 ML ORAL.SUSP 200000 UNIT PO ×4 (08:08→20:05)
[2024-07-20] MEDS: Potassium Chloride Packet 20 MEQ PACKET 40 MEQ PO (08:08)
[2024-07-20] MEDS: Roflumilast 500 MCG TABLET PO (08:09)
[2024-07-20] MEDS: Clopidogrel Bisulfate 75 MG TABLET PO (08:09)
[2024-07-20] MEDS: Amoxicillin/Potassium Clav 875 MG TABLET PO (08:09)
[2024-07-20] MEDS: Multivitamin TABLET 1 TAB PO (08:09)
[2024-07-20] MEDS: Metoprolol Tartrate 100 MG TABLET PO ×2 (08:10→20:04)
[2024-07-20] MEDS: Aspirin 325 MG TABLET PO ×2 (08:10→20:04)
[2024-07-20] MEDS: busPIRone HCl 10 MG TABLET PO ×2 (08:10→20:05)
[2024-07-20] MEDS: Nicotine 14 MG PATCH.TD24 TRANSDERMA (08:10)
[2024-07-20] MEDS: Sertraline HCL 50 MG TABLET PO (08:10)
[2024-07-20] MEDS: Cholecalciferol (Vitamin D3) 25 MCG TABLET 100 MCG PO (08:10)
[2024-07-20] MEDS: amLODIPine Besylate 10 MG TABLET PO (08:10)
[2024-07-20] MEDS: buPROPion HCl XL 300 MG TAB.ER.24H PO (08:10)
[2024-07-20] MEDS: 0.9 % Sodium Chloride Flush 3 ML SYRINGE IVFLUSH ×3 (08:19→23:14)
[2024-07-20] MEDS: Fluticasone/Umeclidinium/Vilanterol 100/62.5/25 BLST.W.DEV 1 PUFF INHALE (08:39)
[2024-07-20] MEDS: Piperacillin Sodium/Tazobactam 3.375 GM in 0.9 % Sodium Chloride 50 ML IV ×3 (09:25→21:15)
[2024-07-20] MEDS: vancomycin HCL 1,500 MG in 0.9 % Sodium Chloride 500 ML 333.33 MG IV (10:52)
--- NOTE | 2024-07-20 11:09 | PHA.PROG ---
Admission Date/Time: July 07, 2024 12:16 Indication: respiratory infection Weight in k.6 kg Serum Creatinine - Last 168 Hours 07/14/24 07/15/24 07/16/24 05:47 05:57 05:25 Creatinine 0.57 0.54 0.59 07/17/24 07/18/24 07/19/24 08:46 06:24 06:33 Creatinine 0.58 0.58 0.56 07/20/24 05:31 Creatinine 0.54 Estimated CrCl and GFR - Last 168 Hours 07/14/24 07/15/24 07/16/24 05:47 05:57 05:25 Estim Creat Clear Calc 74.0 78.0 71.4 Estimated GFR > 60 > 60 > 60 07/17/24 07/18/24 07/19/24 08:46 06:24 06:33 Estim Creat Clear Calc 72.7 72.7 75.2 Estimated GFR > 60 > 60 > 60 07/20/24 05:31 Estim Creat Clear Calc 78.0 Estimated GFR > 60 Vancomycin Loading Dose: 1500 Current Vancomycin Dosing Regimen: 1000 Q12H Vancomycin Monitoring using AUC goal of 400 - 600 range with trough as surrogate marker: 564 Date and Time for next Vancomycin Level to be drawn: 07/21 @1100 Pharmacist Comments on Vancomycin Plan: Vancomycin dosing will take advantage of [employer] as a clinical decision support tool that uses Bayesian modeling to calculate individual patient's pharmacokinetic parameters and forecast the patient's drug concentration time course with the target goal AUC 24 range of 400 - 600 mg/L/hr.
[2024-07-20] MEDS: Furosemide 40 MG/4 ML VIAL IVPUSH (13:48)
--- NOTE | 2024-07-20 13:52 | MHC.CM.PN ---
EMR REVIEWED AND PER MD ROUNDS, PT IS NOT MEDICALLY CLEARED FOR DC. PVR FOLLOWING AND UPDATED VIA [facility]. CM WILL CONTINUE TO FOLLOW FOR ANY CHANGE TO DC PLAN/NEEDS.
--- NOTE | 2024-07-20 14:49 | P.PNIM_ITS ---
Subjective Subjective Date of Service: 07/20/24 Interval History: Episode of extreme desaturation today. Repeat chest demonstrates heart failure. Review of Systems Denies chest pain Denies shortness of breath Denies nausea vomiting diarrhea Denies fever chills Physical Exam 2 Vital Signs: Vital Signs: Last Vital Signs Temp 97.4 F 07/20/24 12:03 Pulse 78 07/20/24 12:03 Resp 18 07/20/24 12:03 BP 156/70 H 07/20/24 12:03 Pulse Ox 92 07/20/24 12:03 O2 Del Method Nasal Cannula 07/20/24 12:03 O2 Flow Rate 3 07/20/24 12:03 BMI result Body Mass Index 24.8 Const: Other: Awake anxious appearing no acute distress Resp: Other: Clear to auscultation bilaterally no rales rhonchi or wheezes Cardio: Other: No S4; positive S1-S2; no S3 murmurs rubs or gallops GI: Other: Soft nontender nondistended normoactive bowel sounds Extrem: Other: No edema bilaterally Objective Data Active Medications Acetaminophen/Butalbital/Caffeine (Butalb/Acetamin/Caff 50/325/40 Tablet) 1 tab PO Q4H PRN PRN Reason: Headache Last Admin: 07/16/24 20:03 Dose: 1 tab Documented By: KAREN Albuterol/Ipratropium (Albuterol/Iprat 2.5/0.5mg 3 Ml Ampul.Neb) 3 ml INHALE RQ4H WHILE AWAKE PRN PRN Reason: shortness of breath or wheezing Last Admin: 07/18/24 09:53 Dose: 3 ml Documented By: CORIN Amlodipine Besylate (Amlodipine Besylate 10 Mg Tablet) 10 mg PO DAILY [facility]; Protocol Last Admin: 07/20/24 08:10 Dose: 10 mg Documented By: JEANNINE Aspirin (Aspirin 325 Mg Tablet) 325 mg PO BID [facility] Last Admin: 07/20/24 08:10 Dose: 325 mg Documented By: JEANNINE Atorvastatin Calcium (Atorvastatin Calcium 80 Mg Tablet) 80 mg PO BEDTIME [facility] Last Admin: 07/19/24 21:13 Dose: 80 mg Documented By: JASON Bupropion HCl (Bupropion Hcl Xl 300 Mg Tab.Er.24h) 300 mg PO DAILY [facility] Last Admin: 07/20/24 08:10 Dose: 300 mg Documented By: JEANNINE Buspirone HCl (Buspirone Hcl 10 Mg Tablet) 10 mg PO BID [facility] Last Admin: 07/20/24 08:10 Dose: 10 mg Documented By: JEANNINE Calcium Carbonate (Calcium Carbonate 750 Mg Tab.Chew) 750 mg PO Q4H PRN PRN Reason: Heartburn Clopidogrel Bisulfate (Clopidogrel Bisulfate 75 Mg Tablet) 75 mg PO DAILY [facility] Last Admin: 07/20/24 08:09 Dose: 75 mg Documented By: JEANNINE Cyclobenzaprine HCl (Cyclobenzaprine Hcl 5 Mg Tablet) 5 mg PO TID PRN PRN Reason: spasms Last Admin: 07/20/24 04:45 Dose: 5 mg Documented By: JASON Fluticasone Propionate (Fluticasone Propionate Nasal 16 Gm [place]) 1 spray NOSTRIL-B BID PRN PRN Reason: allergies Fluticasone/Umeclidinium/Vilanterol (Fluticasone/Umeclidinium/Vilanterol 100/62.5/25 Blst.W.Dev) 1 puff INHALE RDAILY [facility] Last Admin: 07/20/24 08:39 Dose: 1 puff Documented By: ANDIE Hydroxyzine HCl (Hydroxyzine Hcl 25 Mg Tablet) 25 mg PO Q6H PRN PRN Reason: anxiety/restlessness Last Admin: 07/19/24 21:37 Dose: 25 mg Documented By: JASON Piperacillin Sod/Tazobactam (Sod 3.375 gm/ Sodium Chloride) 50 mls @ 100 mls/hr IV Q6H [facility] Last Infusion: 07/20/24 10:02 Dose: Infused Documented By: JEANNINE Vancomycin HCl 1,000 mg/ (Sodium Chloride) 270 mls @ 270 mls/hr IV Q12H [facility] Lidocaine/Diphenhydr/Alum/Mg/Simeth (Mag&Al/Sim/Diphenhyd/Lidocaine 10 Ml Oral.Susp) 10 ml PO Q4H PRN; Protocol PRN Reason: mouth pain Last Admin: 07/18/24 06:12 Dose: 10 ml Documented By: ELIER Loperamide HCl (Loperamide Hcl 2 Mg Capsule) 2 mg PO Q4H PRN PRN Reason: Diarrhea Last Admin: 07/18/24 12:17 Dose: 2 mg Documented By: JEANNINE Lorazepam (Lorazepam 1 Mg Tablet) 1 mg PO Q4H PRN PRN Reason: anxiety/restlessness Last Admin: 07/18/24 12:17 Dose: 1 mg Documented By: JEANNINE Losartan Potassium (Losartan Potassium 50 Mg Tablet) 50 mg PO BEDTIME [facility]; Protocol Last Admin: 07/19/24 21:13 Dose: 50 mg Documented By: JASON Magnesium Hydroxide (Milk Of Magnesia 30 Ml Oral.Susp) 30 ml PO DAILY PRN PRN Reason: Constipation Last Admin: 07/09/24 11:55 Dose: 30 ml Documented By: JEANNINE Melatonin (Melatonin 3 Mg Tablet) 6 mg PO BEDTIME PRN PRN Reason: Insomnia Last Admin: 07/16/24 20:04 Dose: 6 mg Documented By: KAREN Metoprolol Tartrate (Metoprolol Tartrate 100 Mg Tablet) 100 mg PO BID [facility]; Protocol Last Admin: 07/20/24 08:10 Dose: 100 mg Documented By: JEANNINE Multivitamins/Vitamin C (Multivitamin Tablet) 1 tab PO DAILY [facility] Last Admin: 07/20/24 08:09 Dose: 1 tab Documented By: JEANNINE Nicotine (Nicotine 14 Mg Patch.Td24) 14 mg TRANSDERMA DAILY [facility] Last Admin: 07/20/24 08:10 Dose: 14 mg Documented By: JEANNINE Nystatin (Nystatin Oral Susp 500,000 Unit/5 Ml Oral.Susp) 200,000 unit PO QID [facility]; Protocol Last Admin: 07/20/24 12:40 Dose: 200,000 unit Documented By: MED Ondansetron HCl (Ondansetron Hcl 4 Mg/2 Ml Vial) 4 mg IVPUSH Q6H PRN PRN Reason: Nausea Last Admin: 07/13/24 22:00 Dose: 4 mg Documented By: SAVITA Oxycodone HCl (Oxycodone Hcl Immed Release 5 Mg Tablet) 5 mg PO Q4H PRN PRN Reason: Pain, Severe (Pain Scale 7-10) Last Admin: 07/20/24 12:40 Dose: 5 mg Documented By: MED Pharmacy Consult (Consult Rx Vancomycin Dosing) 1 each MISCELLANE DAILY PRN PRN Reason: Consult order Potassium Chloride (Potassium Chloride Packet 20 Meq Packet) 40 meq PO DAILY [facility] Last Admin: 07/20/24 08:08 Dose: 40 meq Documented By: JEANNINE Roflumilast (Roflumilast 500 Mcg Tablet) 500 mcg PO DAILY [facility] Last Admin: 07/20/24 08:09 Dose: 500 mcg Documented By: JEANNINE Sertraline HCl (Sertraline Hcl 50 Mg Tablet) 50 mg PO DAILY [facility] Last Admin: 07/20/24 08:10 Dose: 50 mg Documented By: JEANNINE Sodium Chloride (0.9 % Sodium Chloride Flush 3 Ml Syringe) [facility] Last Admin: 07/20/24 08:19 Dose: 3 ml Documented By: JEANNINE Sodium Chloride (0.9 % Sodium Chloride Flush 3 Ml Syringe) 3 ml IVFLUSH [facility] Last Admin: 07/20/24 08:20 Dose: Not Given Documented By: JEANNINE Non-Admin Reason: Previously Administered Vitamin D (Cholecalciferol (Vitamin D3) 25 Mcg Tablet) 100 mcg PO DAILY [facility] Last Admin: 07/20/24 08:10 Dose: 100 mcg Documented By: JEANNINE Labs 07/20/24 05:31 07/20/24 05:31 Labs: Laboratory Results - last 24 hr 07/20/24 05:31 MCV 86.7 MCH 30.2 MCHC 34.8 RDW 13.0 Plt Count 369 MPV 9.5 Immature Gran % (Auto) 1.5 H Neut % (Auto) 87.1 H Lymph % (Auto) 5.7 L [place] % (Auto) 5.5 Eos % (Auto) 0.0 Baso % (Auto) 0.2 Lymph # (Auto) 1.4 [place] # (Auto) 1.4 H Eos # (Auto) 0.0 Baso # (Auto) 0.1 Abs Immat Gran (auto) 0.39 H Absolute Neuts (auto) 21.9 H Absolute Nucleated RBC 0.000 Nucleated RBC % (auto) 0.0 Smear Tech's Comments VERIFIED Anion Gap 15 Estim Creat Clear Calc 78.0 Estimated GFR > 60 Fasting Glucose 105 H Calcium 9.0 Total Bilirubin 0.5 AST 62 H ALT 119 H Alkaline Phosphatase 122 H Total Protein 6.3 L Albumin 3.2 L Assessment and Plan (1) Acute CHF: Status: Acute Plan 73yo F with COPD, chronic hypoxia on 2L O2, mood disorder, HTN, chronic opioid use, multiple sclerosis, and tobacco abuse presented after fall, admitted for pain control, ultimately found to have L femoral neck fx 1. Acute CHF -Lasix 40 IV; we will dose b.i.d. -2D echo ordered -will order CTA to rule out PE (recent surgery) -titrate O2 to maintain sats greater than equal to 90% 2.Acute toxic-metabolic encephalopathy - multifactorial and seems to wax and wane- related to pneumonia + meds ... Ativan given yesterday for extreme anxiety with tremors -will ask psych input for further management.. No new recommendations 3.Left femoral neck fx, diagnosed 07/11 - s/p CRPP 07/12 - pain control with oxycodone - on ASA 325mg bid for VTE ppx - ongoing PT 4.Multifocal pneumonia - persistent white count noted -restarted on vanco/Zosyn -blood cultures x2 5.HTN -acceptable control on current therapies -adjust as indicated 6.Mood disorder/anxiety - continue bupropion, buspirone, sertraline -cautious Ativan ASA bid per Ortho Full code dispo - STR recommended In my clinical judgment, the patient requires continued inpatient hospitalization for the following reasons: encephalopathy/CHF Quality Stroke Does the patient have a stroke diagnosis?: No VTE Prior VTE?: No VTE Risk Level:: Medical - moderate - high VTE Device Contraindication: N/A - Device Ordered VTE Drug Contraindication: Treatment Not Indicated
[2024-07-20] MEDS: Butalb/Acetamin/Caff 50/325/40 TABLET 1 TAB PO (15:44)
[2024-07-20 15:50] LABS: B Type Natriuretic Peptide 213 pg/mL (<100)
--- NOTE | 2024-07-20 16:05 | P.CNID_ITS ---
History of Present Illness Data of Consult Service Date: 07/20/24 Requesting physician: Mike Calderon Primary Care Provider: Sushil Stewart MD HPI Reason for consult: leukocytosis She presents after fall on left side going up stairs three steps from top. She had fall on 07/06 and fractured left hip subcapital area and had left femoral neck pin on 07/12 by Orthopedics. She was unable to stand after fall and had hematoma left scalp She was admitted on 07/07 and was started on Augmentin for concern over pneumonia.CT chest 07/06 right more than left pneumonial and bronchiolitis of some chronicity. CT abdomen and pelvis negative. SHe has COPD and is normall on 2 liters oxygen. She had WBC 14.1 on admission and then proceeded to 23.4 on 07/19 and now 07/20 25.2. She has no fever or chills. She was started on piperacillin/tazobactam and Vancomycin today,07/20. She also has elevated liver function tests and LFTs now down to SGOT 62 and SGPT on 119. She has no diarrhea or rash but tells me she feels terrible. Her oxygen saturation is 85% on 3 liters. Review of Systems 2 Review of Systems: Yes all other systems are reviewed and are negative [facility] Past Medical History Medical History (Updated 07/20/24 @ 16:15 by Geovanna Taylor MD) Leukocytosis History of CAD (coronary artery disease) Peripheral vascular disease Chronic back pain GERD (gastroesophageal reflux disease) High cholesterol HTN (hypertension) Immune disorder COPD (chronic obstructive pulmonary disease) Multiple sclerosis Family History Family history: reviewed and not pertinent Surgical History Surgical History History of angioplasty History of heart artery stent Social History Social History Household Members: Spouse Housing: House Do you presently have visiting nurse or other home services: No Alcohol intake: never Comment: 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 Patient Tobacco Use Status: Current everyday Tobacco user Tobacco use type: Cigarette Cigarette Packs Per Day: 1 Cigarettes Per Day: 20.0 Advance Directives Date on File: 11/22/22 service: No Current occupational status: retired Meds Allergies Allergy/AdvReac Type Severity Reaction Status Date / Time codeine [CODEINE] Allergy Unknown Hives Verified 07/06/24 18:37 Active Medications: Current Medications Acetaminophen/Butalbital/Caffeine (Butalb/Acetamin/Caff 50/325/40 Tablet) 1 tab PO Q4H PRN PRN Reason: Headache Last Admin: 07/20/24 15:44 Dose: 1 tab Albuterol/Ipratropium (Albuterol/Iprat 2.5/0.5mg 3 Ml Ampul.Neb) 3 ml INHALE RQ4H WHILE AWAKE PRN PRN Reason: shortness of breath or wheezing Last Admin: 07/18/24 09:53 Dose: 3 ml Amlodipine Besylate (Amlodipine Besylate 10 Mg Tablet) 10 mg PO DAILY [facility]; Protocol Last Admin: 07/20/24 08:10 Dose: 10 mg Aspirin (Aspirin 325 Mg Tablet) 325 mg PO BID [facility] Last Admin: 07/20/24 08:10 Dose: 325 mg Atorvastatin Calcium (Atorvastatin Calcium 80 Mg Tablet) 80 mg PO BEDTIME [facility] Last Admin: 07/19/24 21:13 Dose: 80 mg Bupropion HCl (Bupropion Hcl Xl 300 Mg Tab.Er.24h) 300 mg PO DAILY [facility] Last Admin: 07/20/24 08:10 Dose: 300 mg Buspirone HCl (Buspirone Hcl 10 Mg Tablet) 10 mg PO BID [facility] Last Admin: 07/20/24 08:10 Dose: 10 mg Calcium Carbonate (Calcium Carbonate 750 Mg Tab.Chew) 750 mg PO Q4H PRN PRN Reason: Heartburn Clopidogrel Bisulfate (Clopidogrel Bisulfate 75 Mg Tablet) 75 mg PO DAILY [facility] Last Admin: 07/20/24 08:09 Dose: 75 mg Cyclobenzaprine HCl (Cyclobenzaprine Hcl 5 Mg Tablet) 5 mg PO TID PRN PRN Reason: spasms Last Admin: 07/20/24 04:45 Dose: 5 mg Fluticasone Propionate (Fluticasone Propionate Nasal 16 Gm [place]) 1 spray NOSTRIL-B BID PRN PRN Reason: allergies Fluticasone/Umeclidinium/Vilanterol (Fluticasone/Umeclidinium/Vilanterol 100/62.5/25 Blst.W.Dev) 1 puff INHALE RDAILY [facility] Last Admin: 07/20/24 08:39 Dose: 1 puff Hydroxyzine HCl (Hydroxyzine Hcl 25 Mg Tablet) 25 mg PO Q6H PRN PRN Reason: anxiety/restlessness Last Admin: 07/19/24 21:37 Dose: 25 mg Piperacillin Sod/Tazobactam (Sod 3.375 gm/ Sodium Chloride) 50 mls @ 100 mls/hr IV Q6H [facility] Last Admin: 07/20/24 15:36 Dose: 100 mls/hr Vancomycin HCl 1,000 mg/ (Sodium Chloride) 270 mls @ 270 mls/hr IV Q12H [facility] Lidocaine/Diphenhydr/Alum/Mg/Simeth (Mag&Al/Sim/Diphenhyd/Lidocaine 10 Ml Oral.Susp) 10 ml PO Q4H PRN; Protocol PRN Reason: mouth pain Last Admin: 07/18/24 06:12 Dose: 10 ml Loperamide HCl (Loperamide Hcl 2 Mg Capsule) 2 mg PO Q4H PRN PRN Reason: Diarrhea Last Admin: 07/18/24 12:17 Dose: 2 mg Lorazepam (Lorazepam 1 Mg Tablet) 1 mg PO Q4H PRN PRN Reason: anxiety/restlessness Last Admin: 07/18/24 12:17 Dose: 1 mg Losartan Potassium (Losartan Potassium 50 Mg Tablet) 50 mg PO BEDTIME [facility]; Protocol Last Admin: 07/19/24 21:13 Dose: 50 mg Magnesium Hydroxide (Milk Of Magnesia 30 Ml Oral.Susp) 30 ml PO DAILY PRN PRN Reason: Constipation Last Admin: 07/09/24 11:55 Dose: 30 ml Melatonin (Melatonin 3 Mg Tablet) 6 mg PO BEDTIME PRN PRN Reason: Insomnia Last Admin: 07/16/24 20:04 Dose: 6 mg Metoprolol Tartrate (Metoprolol Tartrate 100 Mg Tablet) 100 mg PO BID [facility]; Protocol Last Admin: 07/20/24 08:10 Dose: 100 mg Multivitamins/Vitamin C (Multivitamin Tablet) 1 tab PO DAILY [facility] Last Admin: 07/20/24 08:09 Dose: 1 tab Nicotine (Nicotine 14 Mg Patch.Td24) 14 mg TRANSDERMA DAILY [facility] Last Admin: 07/20/24 08:10 Dose: 14 mg Nystatin (Nystatin Oral Susp 500,000 Unit/5 Ml Oral.Susp) 200,000 unit PO QID [facility]; Protocol Last Admin: 07/20/24 12:40 Dose: 200,000 unit Ondansetron HCl (Ondansetron Hcl 4 Mg/2 Ml Vial) 4 mg IVPUSH Q6H PRN PRN Reason: Nausea Last Admin: 07/13/24 22:00 Dose: 4 mg Oxycodone HCl (Oxycodone Hcl Immed Release 5 Mg Tablet) 5 mg PO Q4H PRN PRN Reason: Pain, Severe (Pain Scale 7-10) Last Admin: 07/20/24 12:40 Dose: 5 mg Pharmacy Consult (Consult Rx Vancomycin Dosing) 1 each MISCELLANE DAILY PRN PRN Reason: Consult order Potassium Chloride (Potassium Chloride Packet 20 Meq Packet) 40 meq PO DAILY [facility] Last Admin: 07/20/24 08:08 Dose: 40 meq Roflumilast (Roflumilast 500 Mcg Tablet) 500 mcg PO DAILY [facility] Last Admin: 07/20/24 08:09 Dose: 500 mcg Sertraline HCl (Sertraline Hcl 50 Mg Tablet) 50 mg PO DAILY [facility] Last Admin: 07/20/24 08:10 Dose: 50 mg Sodium Chloride (0.9 % Sodium Chloride Flush 3 Ml Syringe) 3 ml IVFLUSH [facility] Last Admin: 07/20/24 15:42 Dose: Not Given Sodium Chloride (0.9 % Sodium Chloride Flush 3 Ml Syringe) 3 ml IVFLUSH [facility] Last Admin: 07/20/24 15:41 Dose: 3 ml Vitamin D (Cholecalciferol (Vitamin D3) 25 Mcg Tablet) 100 mcg PO DAILY [facility] Last Admin: 07/20/24 08:10 Dose: 100 mcg Home Medications ?Medication ?Instructions ?Recorded ?Confirmed ?Last Taken ?Type aspirin 81 mg capsule 81 mg PO DAILY 11/15/22 07/07/24 07/06/24 History buspirone 10 mg tablet 10 mg PO BID 11/15/22 07/07/24 07/06/24 History [id number] 1 cap PO DAILY PRN Headache 11/15/22 07/07/24 Unknown History 50 mg-300 mg-40 mg capsule cholecalciferol (vitamin D3) 50 100 mcg PO DAILY 11/15/22 07/07/24 07/06/24 History mcg (2,000 unit) capsule clopidogrel 75 mg tablet 75 mg PO DAILY 11/15/22 07/07/24 07/06/24 History erenumab-aooe 140 mg/mL 140 mg subcut Q28D 11/15/22 07/07/24 1 Week Ago History subcutaneous auto-injector ~06/30/24 (Aimovig Autoinjector) esomeprazole magnesium 40 mg 40 mg PO DAILY@0630 11/15/22 07/07/24 07/06/24 History capsule,delayed release fluticasone fur. 100 mcg-umeclid 1 ea inhalation DAILY 11/15/22 07/07/24 07/06/24 History 62.5 mcg-vilant 25 mcg inhalat.powder (Trelegy Ellipta) fluticasone propionate 50 1 spray intranasal BID PRN 11/15/22 07/07/24 2 Days Ago History mcg/actuation nasal allergies ~11/13/22 spray,suspension immun glob G 10 50 ml subcut MO 11/15/22 07/07/24 06/29/24 History gram/50mL(20%)-gly-IgA over 50 mcg/mL subcutaneous suzanna (Cuvitru) levalbuterol HCl 1.25 mg/0.5 mL 1.25 mg inhalation TID PRN 11/15/22 07/07/24 Unknown History solution for nebulization Shortness Of Breath Or Wheezing metoprolol tartrate 25 mg tablet 25 mg PO BID 11/15/22 07/07/24 07/06/24 History nitroglycerin 0.4 mg sublingual 0.4 mg sublingual Q5M PRN Chest 11/15/22 07/07/24 2 Days Ago History tablet Pain ~11/13/22 ocrelizumab 30 mg/mL intravenous 600 mg IV [id number] 11/15/22 07/07/24 6 Months Ago History solution ~01/05/24 oxycodone-acetaminophen 10 mg-325 1 tab PO Q4H PRN Pain (Scale Score 11/15/22 07/07/24 2 Days Ago History mg tablet 4-6) ~11/13/22 bupropion HCl 150 mg tablet,12 hr 150 mg PO BID 07/07/24 07/07/24 07/06/24 History sustained-release cyclobenzaprine 10 mg tablet 10 mg PO DAILY PRN muscle spasms 07/07/24 07/07/24 Unknown History ipratropium 0.5 mg-albuterol 3 mg 3 ml inhalation QID PRN wheezing 07/07/24 07/07/24 Unknown History (2.5 mg base)/3 mL nebulization soln roflumilast 500 mcg tablet 500 mcg PO DAILY 07/07/24 07/07/24 07/06/24 History rosuvastatin 40 mg tablet 40 mg PO BEDTIME 07/07/24 07/07/24 07/05/24 History sertraline 50 mg tablet 50 mg PO DAILY 07/07/24 07/07/24 Unknown History Physical Exam 2 Vital Signs: Vital Signs: Last Vital Signs Temp 97.4 F 07/20/24 12:03 Pulse 78 07/20/24 12:03 Resp 18 07/20/24 12:03 BP 156/70 H 07/20/24 12:03 Pulse Ox 86 L 07/20/24 14:43 O2 Del Method Nasal Cannula 07/20/24 12:03 O2 Flow Rate 3 07/20/24 12:03 BMI result Body Mass Index 24.8 Const: General: cooperative HEENT: Head: Yes normal to inspection Face and sinus: Yes normal facial exam Mouth: Normal oral and palatal mucosa present Teeth and gingiva: d entition normal Eyes: General: appearance normal, both eyes and all related structures P upils: Equal, round and reactive pupils present Chest: Other: decreased breath sounds throughout Resp: Effort & Inspection: normal respiratory effort Cardio: Other: decreased heart sounds throughout Rate: regular rate Rhythm: regular rhythm GI: Palpation (GI): Soft to palpation and nontender : General: Yes no CVA tenderness Back/Spine/Pelvis: Back: no CVA tenderness Skin: General skin exam: no rashes or lesions noted Neuro: General: moves all extremities Cranial nerves: Yes Equal, round and reactive pupils present Extrem: General: Yes normal to inspection Psych: Appearance: grossly normal Results Labs 07/20/24 05:31 07/20/24 05:31 Labs: Short CBC 07/20/24 Range/Units 05:31 WBC 25.2 H (4.8-10.8) X10*3/uL Hgb 12.3 (12.0-16.0) g/dl Hct 35.3 L (37.0-47.0) % Plt Count 369 (160-400) X10*3/uL BMP 07/20/24 05:31 Sodium 135 Potassium 3.2 L Chloride 102 Carbon Dioxide 21 L BUN 11 Creatinine 0.54 Calcium 9.0 Liver Function 07/20/24 Range/Units 05:31 Total Bilirubin 0.5 (0.0-1.0) mg/dL AST 62 H (5-31) U/L ALT 119 H (0-31) U/L Alkaline Phosphatase 122 H (39-117) U/L Albumin 3.2 L (3.5-5.0) g/dL Assessment and Plan (1) Leukocytosis: Status: Acute She has leukemoid reaction with WBC over 20,000. With COPD and active smoking high concern over pneumonia seen on bases CT chest scan including gram negative organisms and MRSA as is in hospital Also there is concern over pulmonary or air embolus as well. Delayed bleeding is unusual with unremarkable hematocrit and operative site looks clear. Urinalysis has been negative. Would check blood cultures x 2. Continue Vancomycin and Zosyn for now,possible 3-5 days. Check nares MRSA and stop Vancomycin if negative. Check CT scan for PE. Echo evaluate for pericardial effiusion,ejection fraction.
--- NOTE | 2024-07-20 17:00 | CA_ITS ---
Transthoracic Echocardiogram Patient (Last, First, Middle): Isabela Leslie M Gender: Female Date of : 1950 Age: 73 Procedure Date: 07/20/2024 Procedure Type: Transthoracic Echocardiogram Location: S3E Height: 154.94 cm Weight: 59.42 kg BSA: 1.58 m2 Heart Rate: 91 bpm BP: 156 / 70 mmHg Soft Work Wrapper Examiner: SB Referring MD: Mike Calderon DO Symptoms: CHF Study Quality: Adequate ECG Rhythm: Sinus Conclusions: - Normal left ventricular cavity size. There is mildly increased left ventricular wall thickness. The left ventricular systolic function is hyperdynamic. The visually estimated ejection fraction is >70%. - There is severe septal asymmetric hypertrophy. - Normal right ventricular cavity size and systolic function. - There is mild aortic valve regurgitation. Findings Left Ventricle Normal left ventricular cavity size. There is mildly increased left ventricular wall thickness. The left ventricular systolic function is hyperdynamic. The visually estimated ejection fraction is >70%. There is no evidence of regional wall motion abnormalities. Abnormal diastolic function is noted. Spectral Doppler is indicative of an impaired relaxation filling pattern. E/E prime ratio is between 8 and 15 consistent with indeterminate filling pressures. There is severe septal asymmetric hypertrophy. Right Ventricle Normal right ventricular cavity size and systolic function. Atria The left atrium is normal in size. Aortic Valve There is a normal trileaflet aortic valve. There is mild calcification of the aortic valve. There is no aortic valve stenosis. There is mild aortic valve regurgitation. Mitral Valve The mitral valve appears normal. There is no mitral valve regurgitation. There is no mitral valve stenosis. Pulmonic Valve The pulmonic valve was not well visualized. Tricuspid Valve Normal tricuspid valve structure. There is trace tricuspid valve regurgitation. Tricuspid regurgitation envelope is inadequate for calculation of right ventricular systolic pressure. Indeterminate right atrial pressure. Great Vessels All visible segments of the aorta are normal in size. Venous The inferior vena cava was not well visualized. Pericardium/Pleural Prominent epicardial adipose tissue noted. There is no evidence of pericardial effusion. Prior Study Comparison Changes noted compared to prior study dated: 08/28/2023. EF is hyperdynamic now. no RWMA abnormalities. Measurements 2D Linear Measurements IVSd: 1.54 0.6-0.9/0.6-1.0 cm LVIDd: 3.44 3.9-5.3/4.2-5.9 cm LVIDd Index: 2.18 2.4-3.2/2.2-3.1 cm/m2 LVIDs: 2.68 2.0-3.6 cm LVPWd: 1.07 0.7-1.1 cm LA Diam: 2.70 2.7-3.8/3.0-4.0 cm LAIDs Index: 1.71 1.5-2.3 cm/m2 LV Mass: 187.97 67-162/88-224 g LV Mass Index: 118.97 43-95/49-115 g/m2 LVOT Diam: 2.10 3.0+(-)1.3 cm 2D Systolic Function EF 4C: 53.80 >55% EF 2C: 65.70 >55% EF BiP: 58.60 >55% Mitral Valve MV Pk E: 0.52 MV PK A: 0.90 MV Decel Time: 274.00 E/A: 0.60 E'Lateral: 3.81 E'Medial: 5.11 E/E' Med: 10.20 E/E' Lat: 13.60 PHT: 80.00 MVA PHT: 2.75 Decel Wood: 1.90 Aortic Valve AoV Pk Dameon: 1.44 AoV Pk Grad: 8.00 SKIP: 2.55 AI Pk Dameon: 3.58 AI Wood: 2.15 LVOT LVOT Pk Dameon: 1.05 LVOT Mn Dameon: 0.71 LVOT VTI: 0.14 LVOT Pk Grad: 4.00 LVOT Mn Grad: 2.00 LVOT Diam: 2.10 LVOT Area: 3.46 Diastolic Function MV Pk E: 0.52 MV Pk A: 0.90 E/A: 0.60 E'Medial: 5.11 E/E' Med: 10.20 E' Laterial: 3.81 E/E' Lat: 13.60 Right Ventricle TAPSE (mm): 16.10 TVS' Dameon: 11.70 Great Vessels Aorta Sinus of Valsalva: 2.60 2.0-3.5 cm Ao Asc: 2.90 2.1-3.4 cm Pulmonary Valve PV Pk Dameon: 0.87 Peak PV Grad: 3.00 Updated in Other Vendor System with Status of Final Gilbert Lovelace MD electronically signed on 07/21/2024 12:58:03 PM with status of Final
--- NOTE | 2024-07-20 17:59 | PC.NURSE ---
# 20 angio inserted in left wrist as requested per primary RN Jihan
[2024-07-20 18:02] LABS: MRSA Nasal PCR NEGATIVE (Negative); SA Nasal PCR NEGATIVE (Negative)
[2024-07-20] MEDS: Losartan Potassium 50 MG TABLET PO (20:04)
[2024-07-20] MEDS: Atorvastatin Calcium 80 MG TABLET PO (20:05)
[2024-07-20] MEDS: iohexoL 350 MG/ML 100 ML INFUS..BTL 65 ML IV (22:54)
[2024-07-20] MEDS: vancomycin HCL 1,000 MG in 0.9 % Sodium Chloride 250 ML 270 MG IV (23:09)
[2024-07-21] VITALS (9 sets, daily range): BP systolic 112–199; BP diastolic 57–81; PULSE 68–85; RESP 18–20; TEMP 36.1–36.4; O2SAT 93–95
[2024-07-21] MEDS: oxyCODONE HCl Immed Release 5 MG TABLET PO ×2 (02:57→12:29)
[2024-07-21] MEDS: Piperacillin Sodium/Tazobactam 3.375 GM in 0.9 % Sodium Chloride 50 ML IV (02:59)
[2024-07-21] MEDS: Mag&Al/Sim/Diphenhyd/Lidocaine 10 ML ORAL.SUSP PO ×2 (03:18→19:12)
[2024-07-21] MEDS: Cyclobenzaprine HCl 5 MG TABLET PO (05:56)
[2024-07-21 06:50] LABS: MANUAL DIFF FLAG NO
[2024-07-21 06:53] LABS: Basophils Percent Auto 0.2 % (0-2); Eosinophils Percent Auto 0.2 % (0-4); Hematocrit 33.8 % (37.0-47.0); Hemoglobin 11.7 g/dl (12.0-16.0); Imm Gran Abs Auto 0.19 X10*3/uL (0.00-0.03); Imm Gran Pct Auto 1.1 % (0.0-0.4); Lymphocytes Absolute Auto 1.2 X10*3/uL (1.2-4.9); Lymphocytes Percent Auto 6.6 % (20-40); Mean Corpuscular HGB Conc 34.6 g/dl (31.0-35.0); Mean Corpuscular Hemoglobin 30.5 pg (27.0-33.0); Mean Platelet Volume 9.6 fL (9.4-12.3); Monocytes Absolute Auto 1.2 X10*3/uL (0.1-1.2); Monocytes Percent Auto 6.4 % (2-11); Neutrophils Absolute Auto 15.4 x10*3/uL (2.0-8.3); Neutrophils Percent Auto 85.5 % (45-73); Platelet Count 418 X10*3/uL (160-400); Red Blood Count 3.84 X10*6/uL (4.20-5.50); Red Cell Distribution Width 13.4 % (11.0-16.0)
[2024-07-21 07:12] LABS: Alanine Aminotransferase 178 U/L (0-31); Albumin Level 3.1 g/dL (3.5-5.0); Alkaline Phosphatase 117 U/L (39-117); Anion Gap 16 (12-20); Aspartate Amino Transferase 156 U/L (5-31); Bilirubin Total 0.4 mg/dL (0.0-1.0); Blood Urea Nitrogen 14 mg/dL (9-16); Calcium 8.7 mg/dL (8.4-10.2); Carbon Dioxide 25 mmol/L (22-29); Chloride 103 mmol/L (96-108); Creatinine Clr Calc Pharmacy 57.7; Estimated Glomerular Filt Rate > 60; Glucose Fasting 100 mg/dL (60-99); Potassium 3.4 mmol/L (3.3-5.1); Sodium 141 mmol/L (135-145); Total Protein 6.2 g/dL (6.5-8.0)
[2024-07-21] MEDS: Fluticasone/Umeclidinium/Vilanterol 100/62.5/25 BLST.W.DEV 1 PUFF INHALE (08:37)
[2024-07-21] MEDS: Nystatin Oral Susp 500,000 UNIT/5 ML ORAL.SUSP 200000 UNIT PO ×4 (08:54→20:35)
[2024-07-21] MEDS: 0.9 % Sodium Chloride Flush 3 ML SYRINGE IVFLUSH ×7 (08:55→23:06)
[2024-07-21] MEDS: Sertraline HCL 50 MG TABLET PO (08:56)
[2024-07-21] MEDS: Aspirin 325 MG TABLET PO ×2 (08:56→20:36)
[2024-07-21] MEDS: buPROPion HCl XL 300 MG TAB.ER.24H PO (08:56)
[2024-07-21] MEDS: Clopidogrel Bisulfate 75 MG TABLET PO (08:56)
[2024-07-21] MEDS: Cholecalciferol (Vitamin D3) 25 MCG TABLET 100 MCG PO (08:57)
[2024-07-21] MEDS: Potassium Chloride Packet 20 MEQ PACKET 40 MEQ PO (08:57)
[2024-07-21] MEDS: Multivitamin TABLET 1 TAB PO (08:58)
[2024-07-21] MEDS: Nicotine 14 MG PATCH.TD24 TRANSDERMA (08:58)
[2024-07-21] MEDS: Piperacillin Sodium/Tazobactam 4.5 GM in 0.9 % Sodium Chloride 100 ML IV ×3 (08:58→20:36)
[2024-07-21] MEDS: busPIRone HCl 10 MG TABLET PO ×2 (08:58→20:37)
[2024-07-21] MEDS: Roflumilast 500 MCG TABLET PO (08:58)
[2024-07-21] MEDS: amLODIPine Besylate 10 MG TABLET PO (09:03)
[2024-07-21] MEDS: Metoprolol Tartrate 100 MG TABLET PO ×2 (09:03→20:51)
[2024-07-21] MEDS: vancomycin HCL 1,000 MG in 0.9 % Sodium Chloride 250 ML 270 MG IV (11:07)
--- NOTE | 2024-07-21 14:02 | P.PNIM_ITS ---
Subjective Subjective Date of Service: 07/21/24 Interval History: Much more alert this a.m.. CTA of chest demonstrated left greater than right basilar pneumonia. No evidence of PE. Patient mentation improved Review of Systems Denies chest pain Denies shortness of breath Denies nausea vomiting diarrhea Denies fever chills Physical Exam 2 Vital Signs: Vital Signs: Last Vital Signs Temp 96.9 F 07/21/24 12:30 Pulse 74 07/21/24 12:30 Resp 18 07/21/24 12:30 BP 140/67 H 07/21/24 12:30 Pulse Ox 94 07/21/24 12:30 O2 Del Method Nasal Cannula 07/21/24 12:30 O2 Flow Rate 3 07/21/24 12:30 BMI result Body Mass Index 24.8 Const: Other: Awake anxious appearing no acute distress Resp: Other: Clear to auscultation bilaterally no rales rhonchi or wheezes Cardio: Other: No S4; positive S1-S2; no S3 murmurs rubs or gallops GI: Other: Soft nontender nondistended normoactive bowel sounds Extrem: Other: No edema bilaterally Objective Data Active Medications Acetaminophen/Butalbital/Caffeine (Butalb/Acetamin/Caff 50/325/40 Tablet) 1 tab PO Q4H PRN PRN Reason: Headache Last Admin: 07/20/24 15:44 Dose: 1 tab Documented By: JEANNINE Albuterol/Ipratropium (Albuterol/Iprat 2.5/0.5mg 3 Ml Ampul.Neb) 3 ml INHALE RQ4H WHILE AWAKE PRN PRN Reason: shortness of breath or wheezing Last Admin: 07/18/24 09:53 Dose: 3 ml Documented By: CORIN Amlodipine Besylate (Amlodipine Besylate 10 Mg Tablet) 10 mg PO DAILY [facility]; Protocol Last Admin: 07/21/24 09:03 Dose: 10 mg Documented By: FITZ Aspirin (Aspirin 325 Mg Tablet) 325 mg PO BID [facility] Last Admin: 07/21/24 08:56 Dose: 325 mg Documented By: FITZ Atorvastatin Calcium (Atorvastatin Calcium 80 Mg Tablet) 80 mg PO BEDTIME [facility] Last Admin: 07/20/24 20:05 Dose: 80 mg Documented By: JASON Bupropion HCl (Bupropion Hcl Xl 300 Mg Tab.Er.24h) 300 mg PO DAILY [facility] Last Admin: 07/21/24 08:56 Dose: 300 mg Documented By: FITZ Buspirone HCl (Buspirone Hcl 10 Mg Tablet) 10 mg PO BID [facility] Last Admin: 07/21/24 08:58 Dose: 10 mg Documented By: FITZ Calcium Carbonate (Calcium Carbonate 750 Mg Tab.Chew) 750 mg PO Q4H PRN PRN Reason: Heartburn Clopidogrel Bisulfate (Clopidogrel Bisulfate 75 Mg Tablet) 75 mg PO DAILY [facility] Last Admin: 07/21/24 08:56 Dose: 75 mg Documented By: FITZ Cyclobenzaprine HCl (Cyclobenzaprine Hcl 5 Mg Tablet) 5 mg PO TID PRN PRN Reason: spasms Last Admin: 07/21/24 05:56 Dose: 5 mg Documented By: JASON Fluticasone Propionate (Fluticasone Propionate Nasal 16 Gm [place]) 1 spray NOSTRIL-B BID PRN PRN Reason: allergies Fluticasone/Umeclidinium/Vilanterol (Fluticasone/Umeclidinium/Vilanterol 100/62.5/25 Blst.W.Dev) 1 puff INHALE RDAILY [facility] Last Admin: 07/21/24 08:37 Dose: 1 puff Documented By: ANDIE Hydroxyzine HCl (Hydroxyzine Hcl 25 Mg Tablet) 25 mg PO Q6H PRN PRN Reason: anxiety/restlessness Last Admin: 07/19/24 21:37 Dose: 25 mg Documented By: JASON Vancomycin HCl 1,000 mg/ (Sodium Chloride) 270 mls @ 270 mls/hr IV Q12H [facility] Last Infusion: 07/21/24 12:21 Dose: Infused Documented By: FITZ Piperacillin Sod/Tazobactam (Sod 4.5 gm/ Sodium Chloride) 100 mls @ 200 mls/hr IV Q6H [facility] Last Infusion: 07/21/24 11:32 Dose: Infused Documented By: FITZ Lidocaine/Diphenhydr/Alum/Mg/Simeth (Mag&Al/Sim/Diphenhyd/Lidocaine 10 Ml Oral.Susp) 10 ml PO Q4H PRN; Protocol PRN Reason: mouth pain Last Admin: 07/21/24 03:18 Dose: 10 ml Documented By: JASON Loperamide HCl (Loperamide Hcl 2 Mg Capsule) 2 mg PO Q4H PRN PRN Reason: Diarrhea Last Admin: 07/18/24 12:17 Dose: 2 mg Documented By: JEANNINE Lorazepam (Lorazepam 1 Mg Tablet) 1 mg PO Q4H PRN PRN Reason: anxiety/restlessness Last Admin: 07/18/24 12:17 Dose: 1 mg Documented By: JEANNINE Losartan Potassium (Losartan Potassium 50 Mg Tablet) 50 mg PO BEDTIME [facility]; Protocol Last Admin: 07/20/24 20:04 Dose: 50 mg Documented By: JASON Magnesium Hydroxide (Milk Of Magnesia 30 Ml Oral.Susp) 30 ml PO DAILY PRN PRN Reason: Constipation Last Admin: 07/09/24 11:55 Dose: 30 ml Documented By: JEANNINE Melatonin (Melatonin 3 Mg Tablet) 6 mg PO BEDTIME PRN PRN Reason: Insomnia Last Admin: 07/16/24 20:04 Dose: 6 mg Documented By: KAREN Metoprolol Tartrate (Metoprolol Tartrate 100 Mg Tablet) 100 mg PO BID [facility]; Protocol Last Admin: 07/21/24 09:03 Dose: 100 mg Documented By: FITZ Multivitamins/Vitamin C (Multivitamin Tablet) 1 tab PO DAILY [facility] Last Admin: 07/21/24 08:58 Dose: 1 tab Documented By: FITZ Nicotine (Nicotine 14 Mg Patch.Td24) 14 mg TRANSDERMA DAILY [facility] Last Admin: 07/21/24 08:58 Dose: 14 mg Documented By: FITZ Nystatin (Nystatin Oral Susp 500,000 Unit/5 Ml Oral.Susp) 200,000 unit PO QID [facility]; Protocol Last Admin: 07/21/24 12:30 Dose: 200,000 unit Documented By: FITZ Ondansetron HCl (Ondansetron Hcl 4 Mg/2 Ml Vial) 4 mg IVPUSH Q6H PRN PRN Reason: Nausea Last Admin: 07/13/24 22:00 Dose: 4 mg Documented By: SAVITA Oxycodone HCl (Oxycodone Hcl Immed Release 5 Mg Tablet) 10 mg PO Q4H PRN PRN Reason: Pain, Moderate(Pain Scale 4-6) Pharmacy Consult (Consult Rx Vancomycin Dosing) 1 each MISCELLANE DAILY PRN PRN Reason: Consult order Potassium Chloride (Potassium Chloride Packet 20 Meq Packet) 40 meq PO DAILY [facility] Last Admin: 07/21/24 08:57 Dose: 40 meq Documented By: FITZ Roflumilast (Roflumilast 500 Mcg Tablet) 500 mcg PO DAILY [facility] Last Admin: 07/21/24 08:58 Dose: 500 mcg Documented By: FITZ Sertraline HCl (Sertraline Hcl 50 Mg Tablet) 50 mg PO DAILY [facility] Last Admin: 07/21/24 08:56 Dose: 50 mg Documented By: FITZ Sodium Chloride (0.9 % Sodium Chloride Flush 3 Ml Syringe) [facility] Last Admin: 07/21/24 08:55 Dose: 3 ml Documented By: FITZ Sodium Chloride (0.9 % Sodium Chloride Flush 3 Ml Syringe) 3 ml IVFLUSH [facility] Last Admin: 07/21/24 08:59 Dose: 3 ml Documented By: FITZ Vitamin D (Cholecalciferol (Vitamin D3) 25 Mcg Tablet) 100 mcg PO DAILY [facility] Last Admin: 07/21/24 08:57 Dose: 100 mcg Documented By: FITZ Labs 07/21/24 06:31 07/21/24 06:31 Labs: Laboratory Results - last 24 hr 07/20/24 07/20/24 07/21/24 14:45 15:00 06:31 MCV 88.0 MCH 30.5 MCHC 34.6 RDW 13.4 Plt Count 418 H MPV 9.6 Immature Gran % (Auto) 1.1 H Neut % (Auto) 85.5 H Lymph % (Auto) 6.6 L [place] % (Auto) 6.4 Eos % (Auto) 0.2 Baso % (Auto) 0.2 Lymph # (Auto) 1.2 [place] # (Auto) 1.2 Eos # (Auto) 0.0 Baso # (Auto) 0.0 Abs Immat Gran (auto) 0.19 H Absolute Neuts (auto) 15.4 H Absolute Nucleated RBC 0.000 Nucleated RBC % (auto) 0.0 Anion Gap 16 Estim Creat Clear Calc 57.7 Estimated GFR > 60 Fasting Glucose 100 H Calcium 8.7 Total Bilirubin 0.4 AST 156 H ALT 178 H Alkaline Phosphatase 117 B-Natriuretic Peptide 213 H Total Protein 6.2 L Albumin 3.1 L Nasal Screen MRSA (PCR) NEGATIVE Nasal S. aureus Screen NEGATIVE Nasal MRSA/S.aureus Interp SEE NOTE Assessment and Plan (1) Pneumonia: Status: Acute (2) Acute CHF: Status: Acute (3) Subcapital fracture of left hip: Status: Acute Plan 73yo F with COPD, chronic hypoxia on 2L O2, mood disorder, HTN, chronic opioid use, multiple sclerosis, and tobacco abuse presented after fall, admitted for pain control, ultimately found to have L femoral neck fx 1. Acute CHF -echo with EF of 70%. -BNP elevated but improved -Lasix 40 IV b.i.d... We will continue dosing given improvement overall along with stable creatinine -follow renals/divalents -titrate O2 to maintain sats greater than equal to 90% 2.Multifocal pneumonia - white count improved with the addition of IV antibiotics -restarted on vanco/Zosyn (2) -blood cultures x2 pending 3.Acute toxic-metabolic encephalopathy -appears back to baseline -likely multifactorial; follow clinically 4.Left femoral neck fx, diagnosed 07/11 - s/p CRPP 07/12 - pain control with oxycodone - on ASA 325mg bid for VTE ppx - ongoing PT 5.HTN -acceptable control on current therapies -adjust as indicated 6.Mood disorder/anxiety - continue bupropion, buspirone, sertraline -cautious Ativan ASA bid per Ortho Full code In my clinical judgment, the patient requires continued inpatient hospitalization for the following reasons: encephalopathy/multifocal pneumonia Quality Stroke Does the patient have a stroke diagnosis?: No VTE Prior VTE?: No VTE Risk Level:: Medical - moderate - high VTE Device Contraindication: N/A - Device Ordered VTE Drug Contraindication: Treatment Not Indicated
[2024-07-21 16:14] LABS: B Type Natriuretic Peptide 103 pg/mL (<100)
[2024-07-21] MEDS: oxyCODONE HCl Immed Release 5 MG TABLET 10 MG PO ×2 (16:17→20:36)
[2024-07-21] MEDS: Atorvastatin Calcium 80 MG TABLET PO (20:36)
[2024-07-21] MEDS: Losartan Potassium 50 MG TABLET PO (20:37)
[2024-07-21 21:16] LABS: Estimated Glomerular Filt Rate > 60
[2024-07-21] MEDS: vancomycin HCL 750 MG in 0.9 % Sodium Chloride 250 ML 265 MG IV (22:41)
[2024-07-22] VITALS (8 sets, daily range): BP systolic 123–166; BP diastolic 60–75; PULSE 63–73; RESP 16–18; TEMP 36.1–36.5; O2SAT 94–98
[2024-07-22] MEDS: oxyCODONE HCl Immed Release 5 MG TABLET 10 MG PO ×5 (01:10→19:04)
[2024-07-22] MEDS: Piperacillin Sodium/Tazobactam 4.5 GM in 0.9 % Sodium Chloride 100 ML IV ×4 (02:42→20:16)
[2024-07-22] MEDS: Cyclobenzaprine HCl 5 MG TABLET PO ×2 (03:20→09:55)
[2024-07-22 06:11] LABS: MANUAL DIFF FLAG NO
[2024-07-22] MEDS: Mag&Al/Sim/Diphenhyd/Lidocaine 10 ML ORAL.SUSP PO ×2 (06:15→14:32)
[2024-07-22 06:26] LABS: Basophils Percent Auto 0.2 % (0-2); Eosinophils Absolute Auto 0.2 X10*3/uL (0.0-0.4); Eosinophils Percent Auto 0.9 % (0-4); Hematocrit 30.3 % (37.0-47.0); Hemoglobin 10.2 g/dl (12.0-16.0); Imm Gran Abs Auto 0.24 X10*3/uL (0.00-0.03); Imm Gran Pct Auto 1.4 % (0.0-0.4); Lymphocytes Absolute Auto 1.2 X10*3/uL (1.2-4.9); Lymphocytes Percent Auto 7.2 % (20-40); Mean Corpuscular HGB Conc 33.7 g/dl (31.0-35.0); Mean Corpuscular Hemoglobin 30.1 pg (27.0-33.0); Mean Corpuscular Volume 89.4 fL (80.0-98.0); Mean Platelet Volume 9.9 fL (9.4-12.3); Monocytes Percent Auto 5.5 % (2-11); Neutrophils Absolute Auto 14.5 x10*3/uL (2.0-8.3); Neutrophils Percent Auto 84.8 % (45-73); Platelet Count 467 X10*3/uL (160-400); Red Blood Count 3.39 X10*6/uL (4.20-5.50); Red Cell Distribution Width 13.5 % (11.0-16.0); White Blood Count 17.2 X10*3/uL (4.8-10.8)
[2024-07-22 06:35] LABS: Creatinine Clr Calc Pharmacy 65.9; Estimated Glomerular Filt Rate > 60
[2024-07-22] MEDS: Fluticasone/Umeclidinium/Vilanterol 100/62.5/25 BLST.W.DEV 1 PUFF INHALE (07:47)
--- NOTE | 2024-07-22 08:06 | P.CDIM_ITS ---
PROVIDER RESPONSE TEXT: To clarify, the appropriate diagnosis supported by the clinical indicators: Clinically unable to determine (explain): ef normal..BNP flat QUERY TEXT: PHYSICIAN'S DOCUMENTATION REQUEST Date of Query: 07/22/2024 06:36 AM EST Patient Name: MELISA MANZO Admit Date: 07/07/2024 Dear Mike Calderon DO, A review of the medical record indicates additional documentation may be needed. Please review below and update the documentation accordingly. Clinical Indicators: Progress notes 2/3 - 2/ - Acute CHF Echo with EF of 70%. BNP elevated 532/482 Lasix 40 IV b.i.d. - We will continue dosing given improvement overall along with stable creatinine. Follow renals/divalents. Please provide further specificity regarding the most likely type and acuity of CHF you are evaluatin g, treating, or monitoring. Systolic Please specify if Acute, Chronic, or Acute on chronic, or Unable to determine Diastolic Please specify if Acute, Chronic, or Acute on chronic, or Unable to determine Combined Systolic/Diastolic Please specify if Acute, Chronic, or Acute on chronic, or Unable to determine Other (explain) Clinically unable to determine (explain) Thank you, Jessica Holliday, CCS, CDIS Use of terms such as suspected, likely, concern for, or probable (associated with a specific diagnosi s that is being evaluated, monitored, or treated as if it exists) are acceptable and can be coded in the inpatient se tting, when documented at the time of discharge. Please use your independent medical judgment in providing your response. THIS QUERY IS PART OF THE PERMANENT MEDICAL RECORD
[2024-07-22] MEDS: Roflumilast 500 MCG TABLET PO (08:09)
[2024-07-22] MEDS: Cholecalciferol (Vitamin D3) 25 MCG TABLET 100 MCG PO (08:09)
[2024-07-22] MEDS: Clopidogrel Bisulfate 75 MG TABLET PO (08:10)
[2024-07-22] MEDS: busPIRone HCl 10 MG TABLET PO ×2 (08:10→20:08)
[2024-07-22] MEDS: Sertraline HCL 50 MG TABLET PO (08:10)
[2024-07-22] MEDS: Potassium Chloride Packet 20 MEQ PACKET 40 MEQ PO (08:10)
[2024-07-22] MEDS: buPROPion HCl XL 300 MG TAB.ER.24H PO (08:11)
[2024-07-22] MEDS: Multivitamin TABLET 1 TAB PO (08:11)
[2024-07-22] MEDS: amLODIPine Besylate 10 MG TABLET PO (08:11)
[2024-07-22] MEDS: Aspirin 325 MG TABLET PO ×2 (08:11→20:07)
[2024-07-22] MEDS: Nicotine 14 MG PATCH.TD24 TRANSDERMA (08:11)
[2024-07-22] MEDS: Metoprolol Tartrate 100 MG TABLET PO ×2 (08:11→20:08)
[2024-07-22] MEDS: Nystatin Oral Susp 500,000 UNIT/5 ML ORAL.SUSP 200000 UNIT PO ×4 (08:12→20:08)
[2024-07-22] MEDS: 0.9 % Sodium Chloride Flush 3 ML SYRINGE IVFLUSH ×5 (08:13→20:09)
[2024-07-22] MEDS: vancomycin HCL 750 MG in 0.9 % Sodium Chloride 250 ML 265 MG IV (11:32)
[2024-07-22] MEDS: Loperamide HCl 2 MG CAPSULE PO ×2 (11:43→14:31)
--- NOTE | 2024-07-22 11:44 | P.PNIM_ITS ---
Subjective Subjective Date of Service: 07/22/24 Interval History: Continues to improve. White count trending downward Review of Systems Denies chest pain Denies shortness of breath Denies nausea vomiting diarrhea Denies fever chills Physical Exam 2 Vital Signs: Vital Signs: Last Vital Signs Temp 97.7 F 07/22/24 11:24 Pulse 72 07/22/24 11:24 Resp 16 07/22/24 11:24 BP 123/60 07/22/24 11:24 Pulse Ox 94 07/22/24 11:24 O2 Del Method Nasal Cannula 07/22/24 11:24 O2 Flow Rate 3 07/22/24 11:24 BMI result Body Mass Index 24.8 Const: Other: Awake anxious appearing no acute distress Resp: Other: Clear to auscultation bilaterally no rales rhonchi or wheezes Cardio: Other: No S4; positive S1-S2; no S3 murmurs rubs or gallops GI: Other: Soft nontender nondistended normoactive bowel sounds Extrem: Other: No edema bilaterally Objective Data Active Medications Acetaminophen/Butalbital/Caffeine (Butalb/Acetamin/Caff 50/325/40 Tablet) 1 tab PO Q4H PRN PRN Reason: Headache Last Admin: 07/20/24 15:44 Dose: 1 tab Documented By: JEANNINE Albuterol/Ipratropium (Albuterol/Iprat 2.5/0.5mg 3 Ml Ampul.Neb) 3 ml INHALE RQ4H WHILE AWAKE PRN PRN Reason: shortness of breath or wheezing Last Admin: 07/18/24 09:53 Dose: 3 ml Documented By: CORIN Amlodipine Besylate (Amlodipine Besylate 10 Mg Tablet) 10 mg PO DAILY [facility]; Protocol Last Admin: 07/22/24 08:11 Dose: 10 mg Documented By: FITZ Aspirin (Aspirin 325 Mg Tablet) 325 mg PO BID [facility] Last Admin: 07/22/24 08:11 Dose: 325 mg Documented By: FITZ Atorvastatin Calcium (Atorvastatin Calcium 80 Mg Tablet) 80 mg PO BEDTIME [facility] Last Admin: 07/21/24 20:36 Dose: 80 mg Documented By: WIL Bupropion HCl (Bupropion Hcl Xl 300 Mg Tab.Er.24h) 300 mg PO DAILY [facility] Last Admin: 07/22/24 08:11 Dose: 300 mg Documented By: FITZ Buspirone HCl (Buspirone Hcl 10 Mg Tablet) 10 mg PO BID [facility] Last Admin: 07/22/24 08:10 Dose: 10 mg Documented By: FITZ Calcium Carbonate (Calcium Carbonate 750 Mg Tab.Chew) 750 mg PO Q4H PRN PRN Reason: Heartburn Clopidogrel Bisulfate (Clopidogrel Bisulfate 75 Mg Tablet) 75 mg PO DAILY [facility] Last Admin: 07/22/24 08:10 Dose: 75 mg Documented By: FITZ Cyclobenzaprine HCl (Cyclobenzaprine Hcl 5 Mg Tablet) 5 mg PO TID PRN PRN Reason: spasms Last Admin: 07/22/24 09:55 Dose: 5 mg Documented By: MED Fluticasone Propionate (Fluticasone Propionate Nasal 16 Gm [place]) 1 spray NOSTRIL-B BID PRN PRN Reason: allergies Fluticasone/Umeclidinium/Vilanterol (Fluticasone/Umeclidinium/Vilanterol 100/62.5/25 Blst.W.Dev) 1 puff INHALE RDAILY [facility] Last Admin: 07/22/24 07:47 Dose: 1 puff Documented By: ABRAN Hydroxyzine HCl (Hydroxyzine Hcl 25 Mg Tablet) 25 mg PO Q6H PRN PRN Reason: anxiety/restlessness Last Admin: 07/19/24 21:37 Dose: 25 mg Documented By: JASON Piperacillin Sod/Tazobactam (Sod 4.5 gm/ Sodium Chloride) 100 mls @ 200 mls/hr IV Q6H [facility] Last Infusion: 07/22/24 09:02 Dose: Infused Documented By: FITZ Vancomycin HCl 750 mg/ Sodium (Chloride) 265 mls @ 265 mls/hr IV Q12H [facility] Last Admin: 07/22/24 11:32 Dose: 265 mls/hr Documented By: FITZ Lidocaine/Diphenhydr/Alum/Mg/Simeth (Mag&Al/Sim/Diphenhyd/Lidocaine 10 Ml Oral.Susp) 10 ml PO Q4H PRN; Protocol PRN Reason: mouth pain Last Admin: 07/22/24 06:15 Dose: 10 ml Documented By: WIL Loperamide HCl (Loperamide Hcl 2 Mg Capsule) 2 mg PO Q4H PRN PRN Reason: Diarrhea Last Admin: 07/22/24 11:43 Dose: 2 mg Documented By: FITZ Lorazepam (Lorazepam 1 Mg Tablet) 1 mg PO Q4H PRN PRN Reason: anxiety/restlessness Last Admin: 07/18/24 12:17 Dose: 1 mg Documented By: JEANNINE Losartan Potassium (Losartan Potassium 50 Mg Tablet) 50 mg PO BEDTIME [facility]; Protocol Last Admin: 07/21/24 20:37 Dose: 50 mg Documented By: WIL Magnesium Hydroxide (Milk Of Magnesia 30 Ml Oral.Susp) 30 ml PO DAILY PRN PRN Reason: Constipation Last Admin: 07/09/24 11:55 Dose: 30 ml Documented By: JEANNINE Melatonin (Melatonin 3 Mg Tablet) 6 mg PO BEDTIME PRN PRN Reason: Insomnia Last Admin: 07/16/24 20:04 Dose: 6 mg Documented By: KAREN Metoprolol Tartrate (Metoprolol Tartrate 100 Mg Tablet) 100 mg PO BID [facility]; Protocol Last Admin: 07/22/24 08:11 Dose: 100 mg Documented By: FITZ Multivitamins/Vitamin C (Multivitamin Tablet) 1 tab PO DAILY [facility] Last Admin: 07/22/24 08:11 Dose: 1 tab Documented By: FITZ Nicotine (Nicotine 14 Mg Patch.Td24) 14 mg TRANSDERMA DAILY [facility] Last Admin: 07/22/24 08:11 Dose: 14 mg Documented By: FITZ Nystatin (Nystatin Oral Susp 500,000 Unit/5 Ml Oral.Susp) 200,000 unit PO QID [facility]; Protocol Last Admin: 07/22/24 08:12 Dose: 200,000 unit Documented By: FITZ Ondansetron HCl (Ondansetron Hcl 4 Mg/2 Ml Vial) 4 mg IVPUSH Q6H PRN PRN Reason: Nausea Last Admin: 07/13/24 22:00 Dose: 4 mg Documented By: SAVITA Oxycodone HCl (Oxycodone Hcl Immed Release 5 Mg Tablet) 10 mg PO Q4H PRN PRN Reason: Pain, Moderate(Pain Scale 4-6) Last Admin: 07/22/24 09:55 Dose: 10 mg Documented By: MED Pharmacy Consult (Consult Rx Vancomycin Dosing) 1 each MISCELLANE DAILY PRN PRN Reason: Consult order Potassium Chloride (Potassium Chloride Packet 20 Meq Packet) 40 meq PO DAILY [facility] Last Admin: 07/22/24 08:10 Dose: 40 meq Documented By: FITZ Roflumilast (Roflumilast 500 Mcg Tablet) 500 mcg PO DAILY [facility] Last Admin: 07/22/24 08:09 Dose: 500 mcg Documented By: FITZ Sertraline HCl (Sertraline Hcl 50 Mg Tablet) 50 mg PO DAILY [facility] Last Admin: 07/22/24 08:10 Dose: 50 mg Documented By: FITZ Sodium Chloride (0.9 % Sodium Chloride Flush 3 Ml Syringe) 3 ml IVFLUSH QSCTFT [facility] Last Admin: 07/22/24 08:13 Dose: 3 ml Documented By: FITZ Sodium Chloride (0.9 % Sodium Chloride Flush 3 Ml Syringe) [facility] Last Admin: 07/22/24 08:13 Dose: 3 ml Documented By: FITZ Vitamin D (Cholecalciferol (Vitamin D3) 25 Mcg Tablet) 100 mcg PO DAILY [facility] Last Admin: 07/22/24 08:09 Dose: 100 mcg Documented By: FITZ Labs 07/22/24 05:25 07/22/24 05:25 Labs: Laboratory Results - last 24 hr 07/21/24 07/21/24 07/22/24 15:12 20:53 05:25 MCV 89.4 MCH 30.1 MCHC 33.7 RDW 13.5 Plt Count 467 H MPV 9.9 Immature Gran % (Auto) 1.4 H Neut % (Auto) 84.8 H Lymph % (Auto) 7.2 L [place] % (Auto) 5.5 Eos % (Auto) 0.9 Baso % (Auto) 0.2 Lymph # (Auto) 1.2 [place] # (Auto) 1.0 Eos # (Auto) 0.2 Baso # (Auto) 0.0 Abs Immat Gran (auto) 0.24 H Absolute Neuts (auto) 14.5 H Absolute Nucleated RBC 0.000 Nucleated RBC % (auto) 0.0 Estim Creat Clear Calc 61.0 65.9 Estimated GFR > 60 > 60 B-Natriuretic Peptide 103 H Vancomycin Trough 14.0 Microbiology Microbiology Results: Microbiology 07/20/24 14:55 Blood Culture - Preliminary Blood - Venous No growth after 24 hours. 07/20/24 14:55 Blood Culture - Preliminary Blood - Venous No growth after 24 hours. Assessment and Plan (1) Pneumonia: Status: Acute Plan 73yo F with COPD, chronic hypoxia on 2L O2, mood disorder, HTN, chronic opioid use, multiple sclerosis, and tobacco abuse presented after fall, admitted for pain control, ultimately found to have L femoral neck fx 1. Acute CHF -echo with EF of 70%. -BNP elevated but improved -Lasix 40 IV b.i.d... Switch to oral Lasix -follow renals/divalents -titrate O2 to maintain sats greater than equal to 90% 2.Multifocal pneumonia - white count improved with the addition of IV antibiotics -restarted on vanco/Zosyn (3) -blood cultures x2 negative times 24 hours 3.Acute toxic-metabolic encephalopathy -appears back to baseline -likely multifactorial; follow clinically 4.Left femoral neck fx, diagnosed 07/11 - s/p CRPP 07/12 - pain control with oxycodone - on ASA 325mg bid for VTE ppx - ongoing PT... Bed available when medically acceptable for discharge 5.HTN -acceptable control on current therapies -adjust as indicated 6.Mood disorder/anxiety - continue bupropion, buspirone, sertraline -cautious Ativan ASA bid per Ortho Full code In my clinical judgment, the patient requires continued inpatient hospitalization for the following reasons: encephalopathy/multifocal pneumonia Quality Stroke Does the patient have a stroke diagnosis?: No VTE Prior VTE?: No VTE Risk Level:: Medical - moderate - high VTE Device Contraindication: N/A - Device Ordered VTE Drug Contraindication: Treatment Not Indicated
[2024-07-22 12:51] LABS: B Type Natriuretic Peptide 197 pg/mL (<100)
--- NOTE | 2024-07-22 13:36 | MHC.CM.PN ---
EMR REVIEWED AND PER MD ROUNDS, PT IS NOT MEDICALLY CLEARED FOR DC TO STR. (ACUTE CHF, TRANSITIONED TO PO LASIX, IV ANT) POSSIBLE DC TO STR TOMORROW. [facility] FOLLOWING AND UPDATED VIA [facility]. CM WILL CONTINUE TO FOLLOW FOR ANY CHANGE TO DC PLAN/NEEDS.
[2024-07-22] MEDS: Throat Lozenge, Medicated LOZENGE 1 LOZENGE MUCOUS MEM (14:31)
[2024-07-22] MEDS: Atorvastatin Calcium 80 MG TABLET PO (20:08)
[2024-07-22] MEDS: Losartan Potassium 50 MG TABLET PO (20:08)
[2024-07-22 21:42] LABS: Vancomycin Random 12.4 mcg/mL (15-20)
[2024-07-22] MEDS: vancomycin HCL 1,000 MG in 0.9 % Sodium Chloride 250 ML 270 MG IV (22:34)
[2024-07-23] MEDS: oxyCODONE HCl Immed Release 5 MG TABLET 10 MG PO ×4 (02:30→19:43)
[2024-07-23] MEDS: Piperacillin Sodium/Tazobactam 4.5 GM in 0.9 % Sodium Chloride 100 ML IV ×2 (02:30→09:16)
[2024-07-23] MEDS: Cyclobenzaprine HCl 5 MG TABLET PO (03:05)
[2024-07-23 04:00] VITALS: BP 163/74; PULSE 70; RESP 16; TEMP 36.4; O2SAT 97
[2024-07-23 06:28] LABS: Creatinine Clr Calc Pharmacy 69.1; Estimated Glomerular Filt Rate > 60
[2024-07-23] MEDS: Fluticasone/Umeclidinium/Vilanterol 100/62.5/25 BLST.W.DEV 1 PUFF INHALE (07:59)
[2024-07-23 08:01] VITALS: PULSE 76; RESP 16; O2SAT 97
[2024-07-23 08:32] VITALS: BP 178/79; PULSE 74; RESP 16; TEMP 36.7; O2SAT 97
[2024-07-23] MEDS: 0.9 % Sodium Chloride Flush 3 ML SYRINGE IVFLUSH (09:09)
[2024-07-23] MEDS: Potassium Chloride Packet 20 MEQ PACKET 40 MEQ PO (09:10)
[2024-07-23] MEDS: Nystatin Oral Susp 500,000 UNIT/5 ML ORAL.SUSP 200000 UNIT PO ×4 (09:12→21:03)
[2024-07-23] MEDS: Cholecalciferol (Vitamin D3) 25 MCG TABLET 100 MCG PO (09:14)
[2024-07-23] MEDS: Metoprolol Tartrate 100 MG TABLET PO ×2 (09:15→21:03)
[2024-07-23] MEDS: amLODIPine Besylate 10 MG TABLET PO (09:15)
[2024-07-23] MEDS: Aspirin 325 MG TABLET PO ×2 (09:24→21:02)
[2024-07-23] MEDS: buPROPion HCl XL 300 MG TAB.ER.24H PO (09:24)
[2024-07-23] MEDS: busPIRone HCl 10 MG TABLET PO ×2 (09:24→21:03)
[2024-07-23] MEDS: Clopidogrel Bisulfate 75 MG TABLET PO (09:25)
[2024-07-23] MEDS: Sertraline HCL 50 MG TABLET PO (09:25)
[2024-07-23] MEDS: Roflumilast 500 MCG TABLET PO (09:25)
[2024-07-23] MEDS: Multivitamin TABLET 1 TAB PO (09:26)
[2024-07-23] MEDS: Nicotine 14 MG PATCH.TD24 TRANSDERMA (09:26)
--- NOTE | 2024-07-23 10:24 | MHC.CM.PN ---
IMM 07/23/24 Patient is discharged today to [facility] for [facility]. She will transport via BLS. A 3pm sampler pickup time has been scheduled.
[2024-07-23 12:00] VITALS: BP 155/67; PULSE 70; RESP 18; TEMP 36.2; O2SAT 98
[2024-07-23] MEDS: vancomycin HCL 1,000 MG in 0.9 % Sodium Chloride 250 ML 270 MG IV (12:18)
[2024-07-23] MEDS: Loperamide HCl 2 MG CAPSULE PO (12:18)
--- NOTE | 2024-07-23 14:36 | P.PNIM_ITS ---
Subjective Subjective Date of Service: 07/23/24 Interval History: Feels better on 3L O2 plan was to DC but rehab is out of heating and has to postpone discharge Physical Exam 2 Vital Signs: Vital Signs: Last Vital Signs Temp 97.2 F 07/23/24 12:00 Pulse 70 07/23/24 12:00 Resp 18 07/23/24 12:00 BP 155/67 H 07/23/24 12:00 Pulse Ox 98 07/23/24 12:00 O2 Del Method Nasal Cannula 07/23/24 12:00 O2 Flow Rate 3.0 07/23/24 12:00 BMI result Body Mass Index 24.8 Const: Other: Constitutional : Awake, interactive, not in distress Neck : Normal inspection, Supple Cardiovascular : RRR, no JVP, no lower extremity edema Respiratory : good bilateral air entry, no crackles, wheezes or rhonchi, on 3L Of O2 Gastrointestinal: soft, lax, Normal bowel sounds, Non tender Skin : Warm, Dry Extremities: surgical wound clean with no erythema or tenderness Neurological : Alert & oriented x3, No focal deficit Objective Data Active Medications Acetaminophen/Butalbital/Caffeine (Butalb/Acetamin/Caff 50/325/40 Tablet) 1 tab PO Q4H PRN PRN Reason: Headache Last Admin: 07/20/24 15:44 Dose: 1 tab Documented By: JEANNINE Albuterol/Ipratropium (Albuterol/Iprat 2.5/0.5mg 3 Ml Ampul.Neb) 3 ml INHALE RQ4H WHILE AWAKE PRN PRN Reason: shortness of breath or wheezing Last Admin: 07/18/24 09:53 Dose: 3 ml Documented By: CORIN Amlodipine Besylate (Amlodipine Besylate 10 Mg Tablet) 10 mg PO DAILY [facility]; Protocol Last Admin: 07/23/24 09:15 Dose: 10 mg Documented By: DIANA Aspirin (Aspirin 325 Mg Tablet) 325 mg PO BID [facility] Last Admin: 07/23/24 09:24 Dose: 325 mg Documented By: DIANA Atorvastatin Calcium (Atorvastatin Calcium 80 Mg Tablet) 80 mg PO BEDTIME [facility] Last Admin: 07/22/24 20:08 Dose: 80 mg Documented By: WIL Benzocaine (Throat Lozenge, Medicated Lozenge) 1 lozenge MUCOUS MEM Q2H PRN PRN Reason: Sore Throat Last Admin: 07/22/24 14:31 Dose: 1 lozenge Documented By: FITZ Bupropion HCl (Bupropion Hcl Xl 300 Mg Tab.Er.24h) 300 mg PO DAILY [facility] Last Admin: 07/23/24 09:24 Dose: 300 mg Documented By: DIANA Buspirone HCl (Buspirone Hcl 10 Mg Tablet) 10 mg PO BID [facility] Last Admin: 07/23/24 09:24 Dose: 10 mg Documented By: DIANA Calcium Carbonate (Calcium Carbonate 750 Mg Tab.Chew) 750 mg PO Q4H PRN PRN Reason: Heartburn Clopidogrel Bisulfate (Clopidogrel Bisulfate 75 Mg Tablet) 75 mg PO DAILY [facility] Last Admin: 07/23/24 09:25 Dose: 75 mg Documented By: DIANA Cyclobenzaprine HCl (Cyclobenzaprine Hcl 5 Mg Tablet) 5 mg PO TID PRN PRN Reason: spasms Last Admin: 07/23/24 03:05 Dose: 5 mg Documented By: WIL Fluticasone Propionate (Fluticasone Propionate Nasal 16 Gm [place]) 1 spray NOSTRIL-B BID PRN PRN Reason: allergies Fluticasone/Umeclidinium/Vilanterol (Fluticasone/Umeclidinium/Vilanterol 100/62.5/25 Blst.W.Dev) 1 puff INHALE RDAILY [facility] Last Admin: 07/23/24 07:59 Dose: 1 puff Documented By: ABRAN Hydroxyzine HCl (Hydroxyzine Hcl 25 Mg Tablet) 25 mg PO Q6H PRN PRN Reason: anxiety/restlessness Last Admin: 07/19/24 21:37 Dose: 25 mg Documented By: JASON Piperacillin Sod/Tazobactam (Sod 4.5 gm/ Sodium Chloride) 100 mls @ 200 mls/hr IV Q6H [facility] Last Infusion: 07/23/24 09:50 Dose: Infused Documented By: DIANA Vancomycin HCl 1,000 mg/ (Sodium Chloride) 270 mls @ 270 mls/hr IV Q12H [facility] Last Infusion: 07/23/24 13:50 Dose: Infused Documented By: DIANA Lidocaine/Diphenhydr/Alum/Mg/Simeth (Mag&Al/Sim/Diphenhyd/Lidocaine 10 Ml Oral.Susp) 10 ml PO Q4H PRN; Protocol PRN Reason: mouth pain Last Admin: 07/22/24 14:32 Dose: 10 ml Documented By: FITZ Loperamide HCl (Loperamide Hcl 2 Mg Capsule) 2 mg PO Q4H PRN PRN Reason: Diarrhea Last Admin: 07/23/24 12:18 Dose: 2 mg Documented By: DIANA Losartan Potassium (Losartan Potassium 50 Mg Tablet) 50 mg PO BEDTIME [facility]; Protocol Last Admin: 07/22/24 20:08 Dose: 50 mg Documented By: WIL Magnesium Hydroxide (Milk Of Magnesia 30 Ml Oral.Susp) 30 ml PO DAILY PRN PRN Reason: Constipation Last Admin: 07/09/24 11:55 Dose: 30 ml Documented By: JEANNINE Melatonin (Melatonin 3 Mg Tablet) 6 mg PO BEDTIME PRN PRN Reason: Insomnia Last Admin: 07/16/24 20:04 Dose: 6 mg Documented By: KAREN Metoprolol Tartrate (Metoprolol Tartrate 100 Mg Tablet) 100 mg PO BID [facility]; Protocol Last Admin: 07/23/24 09:15 Dose: 100 mg Documented By: DIANA Multivitamins/Vitamin C (Multivitamin Tablet) 1 tab PO DAILY [facility] Last Admin: 07/23/24 09:26 Dose: 1 tab Documented By: DIANA Nicotine (Nicotine 14 Mg Patch.Td24) 14 mg TRANSDERMA DAILY [facility] Last Admin: 07/23/24 09:26 Dose: 14 mg Documented By: DIANA Nystatin (Nystatin Oral Susp 500,000 Unit/5 Ml Oral.Susp) 200,000 unit PO QID [facility]; Protocol Last Admin: 07/23/24 12:26 Dose: 200,000 unit Documented By: DIANA Ondansetron HCl (Ondansetron Hcl 4 Mg/2 Ml Vial) 4 mg IVPUSH Q6H PRN PRN Reason: Nausea Last Admin: 07/13/24 22:00 Dose: 4 mg Documented By: SAVITA Oxycodone HCl (Oxycodone Hcl Immed Release 5 Mg Tablet) 10 mg PO Q4H PRN PRN Reason: Pain, Moderate(Pain Scale 4-6) Last Admin: 07/23/24 14:00 Dose: 10 mg Documented By: DIANA Pharmacy Consult (Consult Rx Vancomycin Dosing) 1 each MISCELLANE DAILY PRN PRN Reason: Consult order Potassium Chloride (Potassium Chloride Packet 20 Meq Packet) 40 meq PO DAILY [facility] Last Admin: 07/23/24 09:10 Dose: 40 meq Documented By: DIANA Roflumilast (Roflumilast 500 Mcg Tablet) 500 mcg PO DAILY [facility] Last Admin: 07/23/24 09:25 Dose: 500 mcg Documented By: DIANA Sertraline HCl (Sertraline Hcl 50 Mg Tablet) 50 mg PO DAILY [facility] Last Admin: 07/23/24 09:25 Dose: 50 mg Documented By: DIANA Sodium Chloride (0.9 % Sodium Chloride Flush 3 Ml Syringe) 3 ml IVFLUSH QSHIFT [facility] Last Admin: 07/23/24 09:09 Dose: 3 ml Documented By: DIANA Sodium Chloride (0.9 % Sodium Chloride Flush 3 Ml Syringe) 3 ml IVFLUSH QSHIFT [facility] Last Admin: 07/23/24 09:16 Dose: Not Given Documented By: DIANA Non-Admin Reason: Duplicate Order Vitamin D (Cholecalciferol (Vitamin D3) 25 Mcg Tablet) 100 mcg PO DAILY [facility] Last Admin: 07/23/24 09:14 Dose: 100 mcg Documented By: DIANA Labs 07/22/24 05:25 07/23/24 05:26 Labs: Laboratory Results - last 24 hr 07/22/24 07/23/24 21:22 05:26 Estim Creat Clear Calc 69.1 Estimated GFR > 60 Random Vancomycin 12.4 L Microbiology Microbiology Results: Microbiology 07/20/24 14:55 Blood Culture - Preliminary Blood - Venous No growth after 48 hours. 07/20/24 14:55 Blood Culture - Preliminary Blood - Venous No growth after 48 hours. Assessment and Plan (1) Acute CHF: Status: Acute (2) Pneumonia: Status: Acute Plan 73yo F with COPD, chronic hypoxia on 2L O2, mood disorder, HTN, chronic opioid use, multiple sclerosis, and tobacco abuse presented after fall, admitted for pain control, ultimately found to have L femoral neck fx 1. Acute CHF echo with EF of 70%. BNP improved Lasix on hold follow renals/divalents titrate O2 to maintain sats greater than equal to 90% 2.Multifocal pneumonia on vanco/Zosyn (3) blood cultures x2 negative times 24 hours 3.Acute toxic-metabolic encephalopathy back to baseline likely multifactorial; follow clinically 4.Left femoral neck fx, diagnosed 07/11 s/p CRPP 07/12 pain control with oxycodone on ASA 325mg bid for VTE ppx ongoing PT... Bed available when medically acceptable for discharge 5.HTN acceptable control on current therapies adjust as indicated 6.Mood disorder/anxiety continue bupropion, buspirone, sertraline cautious Ativan ASA bid per Ortho Full code In my clinical judgment, the patient requires continued inpatient hospitalization for the following reasons: rehab is out of heating and has to postpone discharge Quality Stroke Does the patient have a stroke diagnosis?: No VTE Prior VTE?: No VTE Risk Level:: Medical - moderate - high VTE Device Contraindication: N/A - Device Ordered VTE Drug Contraindication: Treatment Not Indicated
[2024-07-23 15:06] VITALS: BP 168/61; PULSE 73; RESP 18; TEMP 36.6; O2SAT 97
[2024-07-23] MEDS: Butalb/Acetamin/Caff 50/325/40 TABLET 1 TAB PO (18:29)
[2024-07-23 19:12] VITALS: BP 132/70; PULSE 68; RESP 16; TEMP 36.8; O2SAT 99
[2024-07-23] MEDS: Amoxicillin/Potassium Clav 875 MG TABLET PO (19:42)
[2024-07-23] MEDS: Losartan Potassium 50 MG TABLET PO (21:03)
[2024-07-23] MEDS: Atorvastatin Calcium 80 MG TABLET PO (21:03)
[2024-07-24] VITALS (7 sets, daily range): BP systolic 145–186; BP diastolic 68–80; PULSE 59–76; RESP 18; TEMP 36.1–36.7; O2SAT 96–98
[2024-07-24] MEDS: oxyCODONE HCl Immed Release 5 MG TABLET 10 MG PO ×2 (00:40→10:15)
[2024-07-24 06:43] LABS: Creatinine Clr Calc Pharmacy 65.9; Estimated Glomerular Filt Rate > 60
[2024-07-24] MEDS: Fluticasone/Umeclidinium/Vilanterol 100/62.5/25 BLST.W.DEV 1 PUFF INHALE (08:20)
[2024-07-24] MEDS: Potassium Chloride Packet 20 MEQ PACKET 40 MEQ PO (09:34)
[2024-07-24] MEDS: amLODIPine Besylate 10 MG TABLET PO (09:39)
[2024-07-24] MEDS: Amoxicillin/Potassium Clav 875 MG TABLET PO (09:40)
[2024-07-24] MEDS: Metoprolol Tartrate 100 MG TABLET PO (09:40)
[2024-07-24] MEDS: Clopidogrel Bisulfate 75 MG TABLET PO (09:43)
[2024-07-24] MEDS: Aspirin 325 MG TABLET PO (09:44)
[2024-07-24] MEDS: buPROPion HCl XL 300 MG TAB.ER.24H PO (09:44)
[2024-07-24] MEDS: busPIRone HCl 10 MG TABLET PO (09:44)
[2024-07-24] MEDS: Cholecalciferol (Vitamin D3) 25 MCG TABLET 100 MCG PO (09:46)
[2024-07-24] MEDS: 0.9 % Sodium Chloride Flush 3 ML SYRINGE IVFLUSH (09:47)
[2024-07-24] MEDS: Multivitamin TABLET 1 TAB PO (09:47)
[2024-07-24] MEDS: Nystatin Oral Susp 500,000 UNIT/5 ML ORAL.SUSP 200000 UNIT PO (09:48)
[2024-07-24] MEDS: Nicotine 14 MG PATCH.TD24 TRANSDERMA (09:48)
[2024-07-24] MEDS: Sertraline HCL 50 MG TABLET PO (09:49)
[2024-07-24] MEDS: Roflumilast 500 MCG TABLET PO (09:49)
[2024-07-24] MEDS: Cyclobenzaprine HCl 5 MG TABLET PO (10:15)
--- NOTE | 2024-07-24 10:40 | MHC.CM.PN ---
Patient is discharged to [facility] for [facility]. 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
--- NOTE | 2024-07-24 11:08 | P.DS_ITS ---
DS: Providers Provider Date of Service: 07/24/24 Date of admission: 07/07/24 12:16 Date of discharge: 07/24/24 Primary care physician: Sushil Stewart MD Consults: 07/10/24 09:39 Consult to Psychiatry Routine Consulting Provider: [facility] Reason for consultation: 6 Has provider been notified: No 07/11/24 08:46 Consult to Orthopedics Routine Consulting Provider: [facility] Reason for consultation: Mildly impacted fracture of the subcapital portion of the left femoral nec 07/17/24 11:23 Consult to Neurology Routine Consulting Provider: [facility] Reason for consultation: involuntary twitching 07/19/24 09:17 Consult to Psychiatry Routine Consulting Provider: [facility] Reason for consultation: Psychosis 07/20/24 08:59 Consult to Infectious Diseases Routine Consulting Provider: [facility] Reason for consultation: leukocytosis Has provider been notified: Yes DS: Diagnosis Discharge Diagnosis (1) Pneumonia: Status: Acute (2) Leukocytosis: Status: Acute (3) Acute CHF: Status: Acute (4) MDD (major depressive disorder), recurrent episode: Status: Acute (5) Subcapital fracture of left hip: Status: Acute (6) Delirium: Status: Acute DS: Summary Hospital Course Hospital Course: The patient had prolonged hospital stay. for full details please return to EMR. Admission note HPI This is a 73-year-old female with pertinent history of chronic hypoxemic respiratory failure due to COPD on 2 L baseline supplemental oxygen, mood disorder, hypertension, chronic opioid use, multiple sclerosis, tobacco use disorder who presents to the emergency department for evaluation after a fall. Patient states that she was walking up on icy stairs when she slipped and fell. Patient fell from a distance of 3 steps and hit her left side of the body. Patient unable to get up after the fall and it has been complaining of left hip pain, left chest pain since the fall. Did not lose consciousness prior to the fall. No chest pain or palpitations prior to the fall. No dizziness or lightheadedness prior to the fall. No jerking movement of extremities prior to the fall. No fever, chills, palpitations, shortness of breath, changes in urinary or bowel habits. In the emergency department, imaging without any acute abnormality and patient requiring multiple opioid IV pushes for analgesia Hospital course The patient was treated for the following: # Left femoral neck fx, diagnosed 07/11 after mechanical fall. s/p CRPP 07/12 with fair response. pain control with oxycodone and Tylenol as needed. To use full dose ASA for VTE ppx for 5 more weeks. ongoing PT while inpatient. To follow with Orthopedic team as outpatient. To give Esmoprazole for stomach protection as she will be on full dose ASA and Plavix as well. # Acute diastolic CHF. Post Op with echo with EF of 70%. as BNP elevated but improved with treatment with Lasix 40 IV b.i.d that was later switched to oral Lasix daily then discontinued. # Multifocal pneumonia with hypoxemia. Treated with IV antibiotics of Vancomycin and Zosyn as she was evaluated by ID specialist. MRSA sceen negative. CTA negative for PE. blood cultures negative. To be discharged on 1 more week of Augmentin with a plan to repeat chest images in 1-2 months to confirm resolution of infiltrates. Back on her baseline 3L of home O2. wean down as tolerated. # Acute toxic-metabolic encephalopathy secondary to inpatient delerium. appears back to baseline with reorientation. evaluated by speech therapy who recommended regular diet with thin liquids. # HTN, required adding Amlodipine and Losartan for fair control. Continue to monitor BP readings and adjust medications as needed. # Mood disorder/anxiety, continue bupropion, buspirone, sertraline Discharge plan Continue Antibiotic as prescribed Continue Nicotine patches, we advise you to quit smoking Start Amlodipine and Losartan for better blood pressure control Aspirin 325 mg twice a day for DVT Prophylaxis To follow with Orthopedic team as scheduled Physical therapy as tolerated Time Attestation Discharge Coordination Time (in mins): 48 Quality: Safe Use of Opioids Does Pt have an Active Cancer Diagnosis on the Problem List?: No Quality: Stroke Does the patient have a stroke diagnosis?: No Physical Exam Vital Signs: Vital Signs: Last Vital Signs Temp 98.1 F 07/23/24 08:32 Pulse 74 07/23/24 08:32 Resp 16 07/23/24 08:32 BP 178/79 H 07/23/24 08:32 Pulse Ox 97 07/23/24 08:32 O2 Del Method Nasal Cannula 07/23/24 08:32 O2 Flow Rate 3.0 07/23/24 08:32 BMI result Body Mass Index 24.8 Const: Other: Constitutional : Awake, interactive, not in distress Neck : Normal inspection, Supple Cardiovascular : RRR, no JVP, no lower extremity edema Respiratory : good bilateral air entry, no crackles, wheezes or rhonchi, on 3L Of O2 Gastrointestinal: soft, lax, Normal bowel sounds, Non tender Skin : Warm, Dry Extremities: surgical wound clean with no erythema or tenderness Neurological : Alert & oriented x3, No focal deficit DS: Data Data Completed and Pending Completed studies during hospitalization [Text1]: Procedures Assistance with Respiratory Ventilation, Less than 24 Consecutive Hours, Continuous Positive Airway Pressure (08/27/23) Introduction of Remdesivir Anti-infective into Peripheral Vein, Percutaneous Approach, [employer] 5 (08/27/23) Labs on day of discharge: Laboratory Results - last 24 hr 07/22/24 07/22/24 07/23/24 12:11 21:22 05:26 Creatinine 0.61 Estim Creat Clear Calc 69.1 Estimated GFR > 60 B-Natriuretic Peptide 197 H Random Vancomycin 12.4 L Preliminary micro results at discharge 07/20/24 14:55 Blood Culture - Preliminary Blood - Venous No growth after 48 hours. 07/20/24 14:55 Blood Culture - Preliminary Blood - Venous No growth after [address] scan - chest: Radiologist's impression: ITS Impressions Chest X-Ray 07/07/24 15:15 IMPRESSION: Left lower lobe atelectasis versus pneumonia. Electronically signed by: Morgan Chapin MD 07/07/2024 03:26 PM EST RP Guidance Fluoroscopy 07/12/24 09:10 IMPRESSION: Fluoroscopy during procedure. Please see procedure report for additional information. Electronically signed by: Morgan Chapin MD 07/13/2024 08:08 AM EST RP Modified Barium Swallow 07/15/24 07:41 IMPRESSION: 1. Trace laryngeal penetration with thin consistency barium. No subglottic aspiration observed. 2. Moderate cricopharyngeal achalasia. 3. Status post anterior and interbody fusion at C5-C6. Refer to the speech therapy report for further clarification This procedure was performed by Zach Rivera PA-C, and supervised by Dr. Gongora Electronically signed by: Kee Gongora MD 07/17/2024 09:17 AM EST RP Chest X-Ray 07/20/24 09:28 IMPRESSION: Pulmonary edema in the correct clinical settings. Superimposed acute inflammatory versus infectious process cannot be excluded. Electronically signed by: Vipul Morocho MD 07/20/2024 09:45 AM EST Discharge Plan Discharge Anticipated Discharge Date/Time: 07/23/24 11:57 Patient Disposition: er [facility] Discharge Diagnosis: Left femoral neck fracture Pneumonia Heart failure Referrals: [facility] [Outside] - 1 Week Sushil Stewart MD [Primary Care Provider] - 1 Week Discharge Medications: New losartan 50 mg Tablet 50 mg PO BEDTIME Qty: 90 0RF Protocol: Hold for SBP< HOLD for SBP < : 90 nystatin 100,000 unit/mL Suspension 400,000 unit PO QID Qty: 60 0RF nicotine 14 mg/24 hr Patch 24 Hour 14 mg transdermal DAILY Qty: 90 0RF aspirin 325 mg Tablet 325 mg PO BID 35 Days Qty: 70 0RF amlodipine 10 mg Tablet 10 mg PO DAILY Qty: 90 0RF Protocol: Hold for SBP< HOLD for SBP < : 90 amoxicillin-pot clavulanate 875-125 mg tablet 1 tab PO BID Qty: 14 0RF Continued esomeprazole magnesium 40 mg capsule,delayed release(DR/EC) 40 mg PO DAILY@0630 buspirone 10 mg tablet 10 mg PO BID fluticasone propionate 50 mcg/actuation spray,suspension 1 spray intranasal BID PRN (Reason: allergies) cholecalciferol (vitamin D3) 50 mcg (2,000 unit) capsule 100 mcg PO DAILY wgkyxldymp-umecrzhnqxpvw-fudx 50-300-40 mg capsule 1 cap PO DAILY PRN (Reason: Headache) Aimovig Autoinjector 140 mg/mL auto-injector 140 mg subcut Q28D Cuvitru 10 gram/50 mL (20 %) solution 50 ml subcut MO nitroglycerin 0.4 mg tablet, sublingual 0.4 mg sublingual Q5M PRN (Reason: Chest Pain) Rx Instructions: do not exceed 3 doses/24 hrs metoprolol tartrate 25 mg tablet 25 mg PO BID ocrelizumab 30 mg/mL Solution 600 mg IV [id number] Trelegy Ellipta 100-62.5-25 mcg blister with device 1 ea inhalation DAILY levalbuterol HCl 1.25 mg/0.5 mL solution for nebulization 1.25 mg inhalation TID PRN (Reason: Shortness Of Breath Or Wheezing) clopidogrel 75 mg tablet 75 mg PO DAILY bupropion HCl 150 mg tablet sustained-release 12 hr 150 mg PO BID ipratropium-albuterol 0.5 mg-3 mg(2.5 mg base)/3 mL solution for nebulization 3 ml inhalation QID PRN (Reason: wheezing) rosuvastatin 40 mg tablet 40 mg PO BEDTIME roflumilast 500 mcg tablet 500 mcg PO DAILY cyclobenzaprine 10 mg tablet 10 mg PO DAILY PRN (Reason: muscle spasms) sertraline 50 mg tablet 50 mg PO DAILY oxycodone-acetaminophen 10-325 mg tablet 1 tab PO Q4H PRN (Reason: Pain (Scale Score 4-6)) Qty: 20 0RF Held aspirin 81 mg Capsule 81 mg PO DAILY Hold Instructions: Until she is done with Full aspirin bid dosage. Discharge Orders: Discharge Order (Routine); Ordered 07/24/24 Ordered By: Emi Hooker Diet: Low salt diet Activity on Discharge: As tolerated Stand Alone Forms: Patient Portal Discharge page Print Language: [place] Care Plan Goals: Continue Antibiotic as prescribed Continue Nicotine patches, we advise you to quit smoking Start Amlodipine and Losartan for better blood pressure control Aspirin 325 mg twice a day for DVT Prophylaxis To follow with Orthopedic team as scheduled Physical therapy as tolerated Health Concerns: Pneumonia HYpertension Hip fracture Plan of Treatment: Antibiotics Blood pressure medicaitons Physical therapy Assessment: as above Patient Instructions: Pneumonia (DC), Hip Fracture (GEN)
== END 2024-07-24 13:03 | disposition skilled nursing facility (03) | DRG 480 ==
LOC: HO.ED 07-07 00:10 → HO.EDOVER 07-07 00:45 → HO.S3 07-07 02:27
PROVIDERS: Family Medicine; Hospitalist; Internal Medicine; Orthopaedic Surgery; Social Worker; Admitting Provider Student in an Organized Health Care Education/Training Program; Emergency Provider Emergency Medicine Emergency Medical Services; PCP Internal Medicine; Visit Provider Student in an Organized Health Care Education/Training Program
PROC: 0QS734Z Reposition Left Upper Femur with Internal Fixation Device, Percutaneous Approach (ICD-10-PCS; principal; 2024-07-12 08:30)
DX: S72.012A Unspecified intracapsular fracture of left femur, initial encounter for closed fracture (principal); G92.8 Other toxic encephalopathy; J18.9 Pneumonia, unspecified organism; J96.21 Acute and chronic respiratory failure with hypoxia; I50.31 Acute diastolic (congestive) heart failure; J44.1 Chronic obstructive pulmonary disease with (acute) exacerbation; J44.0 Chronic obstructive pulmonary disease with (acute) lower respiratory infection; F05 Delirium due to known physiological condition; E87.3 Alkalosis; F33.9 Major depressive disorder, recurrent, unspecified; I25.10 Atherosclerotic heart disease of native coronary artery without angina pectoris; M54.9 Dorsalgia, unspecified; G89.29 Other chronic pain; Z99.81 Dependence on supplemental oxygen; G35 Multiple sclerosis; E87.6 Hypokalemia; W19.XXXA Unspecified fall, initial encounter; I77.1 Stricture of artery; R25.3 Fasciculation; Z95.1 Presence of aortocoronary bypass graft; F41.9 Anxiety disorder, unspecified; T41.205A Adverse effect of unspecified general anesthetics, initial encounter; I11.0 Hypertensive heart disease with heart failure; R44.1 Visual hallucinations; T40.2X5A Adverse effect of other opioids, initial encounter; F17.210 Nicotine dependence, cigarettes, uncomplicated; Z71.6 Tobacco abuse counseling; Z79.82 Long term (current) use of aspirin; Z79.02 Long term (current) use of antithrombotics/antiplatelets; Z79.891 Long term (current) use of opiate analgesic; Z79.899 Other long term (current) drug therapy
CPT/HCPCS: 0241U; 36415; 70450; 71045; 71250; 71260; 71275; 72125; 73502; 74177; 74230; 80048; 80053; 80076; 80202; 81001; 82140; 82550; 82565; 82803; 83690; 83735; 83880; 84145; 84443; 84484; 85007; 85025; 85027; 85610; 85730; 86140; 86850; 86900; 86901; 87040; 87449; 87493; 87640; 87641; 87899; 92526; 92610; 92611; 93005; 93306; 94640; 97110; 97112; 97116; 97162; 97530; 99221; 99285; C1713; J0131; J0690; J1171; J1200; J1630; J1885; J1920; J1940; J2003; J2060; J2270; J2405; J2543; J2704; J2795; J3010; J3370; J3371; J3480; Q9957; Q9967

== ENCOUNTER → 2024-07-06 18:40 | Outpatient (BNV) | payer MEDICARE, BC, SELFPAY | PROVIDERS: Admitting Provider Student in an Organized Health Care Education/Training Program; Emergency Provider Emergency Medicine Emergency Medical Services; PCP Internal Medicine; Visit Provider Internal Medicine Cardiovascular Disease | DX: R55 Syncope and collapse (principal) | CPT/HCPCS: 93010 ==

== ENCOUNTER → 2024-07-06 19:02 | Outpatient (BNV) | payer MEDICARE, BC, SELFPAY | PROVIDERS: Emergency Provider Emergency Medicine Emergency Medical Services; PCP Internal Medicine; Visit Provider Student in an Organized Health Care Education/Training Program | DX: R10.9 Unspecified abdominal pain (principal); S19.9XXA Unspecified injury of neck, initial encounter; S09.90XA Unspecified injury of head, initial encounter | CPT/HCPCS: 70450; 71260; 72125; 74177 ==

== ENCOUNTER → 2024-07-07 00:43 | Outpatient (BNV) | payer MEDICARE, BC, SELFPAY | PROVIDERS: Admitting Provider Student in an Organized Health Care Education/Training Program; Emergency Provider Emergency Medicine Emergency Medical Services; PCP Internal Medicine; Visit Provider Student in an Organized Health Care Education/Training Program | DX: S20.212A Contusion of left front wall of thorax, initial encounter (principal) | CPT/HCPCS: 99232; 99233; 99499 ==

== ENCOUNTER 2024-07-07 12:16 | Outpatient (BNV) | payer MEDICARE, BC, SELFPAY | END 2024-07-20 17:00 | PROVIDERS: Admitting Provider Student in an Organized Health Care Education/Training Program; Emergency Provider Emergency Medicine Emergency Medical Services; PCP Internal Medicine; Visit Provider Internal Medicine Cardiovascular Disease | DX: I42.2 Other hypertrophic cardiomyopathy (principal); I35.1 Nonrheumatic aortic (valve) insufficiency | CPT/HCPCS: 93306 ==

== ENCOUNTER 2024-07-07 12:16 | Outpatient (BNV) | payer MEDICARE, BC, SELFPAY | END 2024-07-11 08:00 | PROVIDERS: Admitting Provider Student in an Organized Health Care Education/Training Program; Emergency Provider Emergency Medicine Emergency Medical Services; PCP Internal Medicine; Visit Provider Radiology Diagnostic Radiology | DX: J18.9 Pneumonia, unspecified organism (principal); S72.012A Unspecified intracapsular fracture of left femur, initial encounter for closed fracture | CPT/HCPCS: 71250; 73502 ==

== ENCOUNTER 2024-07-07 12:16 | Outpatient (BNV) | payer MEDICARE, BC, SELFPAY | END 2024-07-17 16:40 | PROVIDERS: Admitting Provider Student in an Organized Health Care Education/Training Program; Emergency Provider Emergency Medicine Emergency Medical Services; PCP Internal Medicine; Visit Provider Radiology Vascular & Interventional Radiology | DX: G93.40 Encephalopathy, unspecified (principal) | CPT/HCPCS: 70450 ==

== ENCOUNTER 2024-07-07 12:16 | Outpatient (BNV) | payer MEDICARE, BC, SELFPAY | END 2024-07-10 05:30 | PROVIDERS: Admitting Provider Student in an Organized Health Care Education/Training Program; Emergency Provider Emergency Medicine Emergency Medical Services; PCP Internal Medicine; Visit Provider Specialist | DX: R06.9 Unspecified abnormalities of breathing (principal) | CPT/HCPCS: 71045 ==

== ENCOUNTER 2024-07-07 12:16 | Outpatient (BNV) | payer MEDICARE, BC, SELFPAY | END 2024-07-07 15:15 | PROVIDERS: Admitting Provider Student in an Organized Health Care Education/Training Program; Emergency Provider Emergency Medicine Emergency Medical Services; PCP Internal Medicine; Visit Provider Radiology Diagnostic Radiology | DX: R09.02 Hypoxemia (principal) | CPT/HCPCS: 71045 ==

== ENCOUNTER 2024-07-07 12:16 | Outpatient (BNV) | payer MEDICARE, BC, SELFPAY | END 2024-07-15 07:41 | PROVIDERS: Admitting Provider Student in an Organized Health Care Education/Training Program; Emergency Provider Emergency Medicine Emergency Medical Services; PCP Internal Medicine; Visit Provider Physician Assistant Surgical | DX: S72.012A Unspecified intracapsular fracture of left femur, initial encounter for closed fracture (principal) | CPT/HCPCS: 74230 ==

== ENCOUNTER 2024-07-07 12:16 | Outpatient (BNV) | payer MEDICARE, BC, SELFPAY | END 2024-07-20 09:28 | PROVIDERS: Admitting Provider Student in an Organized Health Care Education/Training Program; Emergency Provider Emergency Medicine Emergency Medical Services; PCP Internal Medicine; Visit Provider Radiology Diagnostic Radiology | DX: R06.02 Shortness of breath (principal) | CPT/HCPCS: 71045 ==

== ENCOUNTER → 2024-07-07 12:16 | Outpatient (BNV) | payer MEDICARE, BC, SELFPAY | PROVIDERS: Admitting Provider Student in an Organized Health Care Education/Training Program; Emergency Provider Emergency Medicine Emergency Medical Services; PCP Internal Medicine; Visit Provider Internal Medicine | DX: D72.829 Elevated white blood cell count, unspecified (principal) | CPT/HCPCS: 99222 ==

== ENCOUNTER → 2024-07-07 12:16 | Outpatient (BNV) | payer MEDICARE, BC, SELFPAY | PROVIDERS: Admitting Provider Student in an Organized Health Care Education/Training Program; Emergency Provider Emergency Medicine Emergency Medical Services; PCP Internal Medicine | DX: S72.012A Unspecified intracapsular fracture of left femur, initial encounter for closed fracture (principal) | CPT/HCPCS: 99223 ==

== ENCOUNTER → 2024-07-07 12:16 | Outpatient (BNV) | payer MEDICARE, BC, SELFPAY | PROVIDERS: Admitting Provider Student in an Organized Health Care Education/Training Program; Emergency Provider Emergency Medicine Emergency Medical Services; PCP Internal Medicine; Visit Provider Social Worker | DX: F19.151 Other psychoactive substance abuse with psychoactive substance-induced psychotic disorder with hallucinations (principal); F06.0 Psychotic disorder with hallucinations due to known physiological condition; R41.0 Disorientation, unspecified | CPT/HCPCS: 99232 ==

== ENCOUNTER 2024-07-30 12:50 | Outpatient (AMB) | payer MEDICARE, BC, SELFPAY ==
--- OUTSIDE RECORDS SUMMARY | 2024-07-30 12:56 | XMS_ITS ---
Author Organization [facility] Address [address] [place] [address] Care Team Providers Care It Risk Advisor Name Role Phone Sushil Stewart MD Primary Care Provider Unavail Epifanio Marin Unavailable [phone] Allergies Allergen (clinical drug ingredient) Drug/Non Drug Allergy documented on EMR Reaction Allergy Type Onset Date Status codeine Codeine hives Drug Allergy Active Medications Medication SIG (Take, Route, Frequency, Duration) Notes Start Date End Date Status Atrovent Active DULoxetine HCl Activ e hydroCHLOROthiazide Active Hyoscyamine Active Stiolto Respimat Not -Taking vitamin D Active Clopidogrel Bisulfate Not-Taking Pentoxifylline ER No t-Taking Topiramate Not-Takin g oxyBUTYnin Not-Takin g Ventolin HFA Active Metoprolol Tartrate 25 MG Orally Active Nitrostat Active oxyCODONE-Acetaminophen Active Ocrevus Intravenous every 6 months Active Lyrica Active Encounters Encounter Location Date Provider Diagnosis [address] [address] 07/07/2024 Epifanio Palacios Plan Of Treatment Next Appt Details Provider Name:Epifanio Palacios , 10/09/2024 12:30:00 PM, [address] [place] [address], [id number], Progress Notes * Isabela MANZO MDOB: [birth year] (73 yo F)Acc No.[id number]:07/07/2024 Progress Note Patient:?JOVANY Isabela Michelle Provider:?Epifanio Palacios DPM :1950???Age:73 Y???Sex:Female D ate:07/07/2024 Address:[address] [id number] Pcp:Sushil Stewart MD Subjective: * Chief Complaints: * ??? * Medical History:?Back,Hip,an d Knee pain, Gall bladder problems, Headaches, High blood pressure, Chicken pox, Multiple sclerosis, Osteoporosis, Chronic sinusitis. * Medications:?Taking Atrovent , Taking DULoxetine HCl , Taking hydroCHLOROthiazide , Taking Hyoscyamine , Taking Lyrica , Taking Metoprolol Tartrate 25 MG Tablet Orally , Taking Nitrostat , Taking oxyCODONE-Acetaminophen , Taking Ocrevus Intravenous every 6 months , Taking Ventolin HFA , Taking vitamin D , Not-Taking/PRN Clopidogrel Bisulfate , Not-Taking/PRN Pentoxifylline ER , Not-Taking/PRN Topiramate , Not-Taking/PRN oxyBUTYnin , Not-Taking/PRN Stiolto Respimat * Allergies:?Codeine: hives - Allergy. Objective: * Vitals:? Assessment: Plan: * Treatment: * Images: * The named appointment provid er may or may not be the originator of this progress note, and it is not deemed complete until electronically signed by the appointment provider. Sign off status: Pending * Provider:?Epifanio Palacios DPM Date:?2024 Generated for Nadeem candelario/Tanvir/Brissaitting on:?07/30/2024 12:55 PM EST
--- OUTSIDE RECORDS SUMMARY | 2024-07-30 12:56 | XMS_ITS | Encounter Summary ---
Author Organization [facility] Address [address] [place] [address] Care Team Providers Care Supervisor Furnace Process Name Role Phone Sushil Stewart MD Primary Care Provider [phone] Encounter Details Date Type Department Care Team (Late st Contact Info) Description 07/27/2024 Lab Requisition [facility] Lab [address] [place] [address] Carmela Thomas MD [address] [phone] Heart failure, unspecified (CMS/HCC) Social History Tobacco Use Types Packs/Day Years Used Date Smoking Tobacco: Every Day Smokeless Tobacco: Never Alcohol Use Standard Drinks/Week Comments No 0 (1 standard drink = 0.6 oz pur e alcohol) Comments Unknown Sex and Gender Information Value Date Recorded Sex Assigned at Not on file Legal Sex Female 10:12 PM EST Gender Identity Not on file Sexual Orientation Not on file documented as of this encounter Plan of Treatment Not on file documented as of this encounter Procedures Procedure Name Priority Date/Time Associated Diagnosis Comments COMPLETE BLOOD COUNT Routine 07/27/2024 8:36 AM EST Heart failure, unspecified (CMS/HCC) COMPREHENSIVE METABOLIC PANEL Routine 07/27/2024 8:36 AM EST Heart failure, unspecified (CMS/HCC) documented in this encounter Results * (ABNORMAL) Comprehensive metabolic panel (07/27/2024 8:36 AM EST) Sodium 140 133 - 145 mmol/L LAB CHEMISTRY METHOD 07/27/2024 2:15 PM EST [facility] Potassium 3.7 3.5 - 5.5 mmol/L LAB CHEMISTRY METHOD 07/27/2024 2:[address] [facility] Chloride 102 96 - 110 mmol/L LAB CHEMISTRY METHOD 07/27/2024 2:[address] [facility] CO2 28 21 - 32 mmol/L LAB CHEMISTRY METHOD 07/27/2024 2:[address] [facility] Anion Gap 10 3 - 11 LAB CHEMISTRY METHOD 07/27/2024 2:[address] [facility] Glucose 98 70 - 100 mg/dL LAB CHEMISTRY METHOD 07/27/2024 2:[address] [facility] BUN 13 5 - 25 mg/dL LAB CHEMISTRY METHOD 07/27/2024 2:[address] [facility] Creatinine 0.62 0.50 - 1.10 mg/dL LAB CHEMISTRY METHOD 07/27/2024 2:[address] [facility] eGFR 95 >=60 mL/min/1. 73m2 LAB CHEMISTRY METHOD 07/27/2024 2:[address] [facility] Comment:Calculation based on the??Chronic Kidney Disease Epidemiology Collaboration (CKD-EPI) equation refit??without adjustment for race. BUN/Creatinine Ratio 21.0 LAB CHEMISTRY METHOD 07/27/2024 2:[address] [facility] Calcium 9.6 8.5 - 10.5 mg/dL LAB CHEMISTRY METHOD 07/27/2024 2:[address] [facility] AST (SGOT) 34 10 - 42 unit/L LAB CHEMISTRY METHOD 07/27/2024 2:[address] [facility] ALT (SGPT) 81(H) 10 - 60 unit/L LAB CHEMISTRY METHOD 07/27/2024 2:[address] [facility] Alkaline Phosphatase 189(H) 42 - 121 unit/L LAB CHEMISTRY METHOD 07/27/2024 2:[address] [facility] Total Protein 6.0 6.0 - 8.0 g/dL LAB CHEMISTRY METHOD 07/27/2024 2:[address] [facility] Albumin 2.5(L) 3.2 - 5.0 g/dL LAB CHEMISTRY METHOD 07/27/2024 2:[address] [facility] Total Bilirubin 0.3 0.0 - 1.4 mg/dL LAB CHEMISTRY METHOD 07/27/2024 2:[address] [facility] Blood Venous blood specimen / Unknown Venipuncture / Unknown 07/27/2024 8:36 AM EST 07/27/2024 11:49 AM EST us Carmela Thomas MD LAB BLOOD ORDERABLES Fin al Result [facility] [address] [place] [address], * (ABNORMAL) Complete blood count (07/27/2024 8:36 AM EST) WBC 17.3(H) 4.8 - 10.8 K/mcL LAB HEMETOLOGY METHOD 07/27/2024 1:[address] [facility] RBC 4.00 3.80 - 4.80 M/mcL LAB HEMETOLOGY METHOD 07/27/2024 1:[address] [facility] Hemoglobin 12.0 11.5 - 16.0 g/dL LAB HEMETOLOGY METHOD 07/27/2024 1:[address] [facility] Hematocrit 36.8 35.0 - 47.0 % LAB HEMETOLOGY METHOD 07/27/2024 1:[address] [facility] MCV 92.0 79.0 - 98.0 FL LAB HEMETOLOGY METHOD 07/27/2024 1:[address] [facility] MCH 30.0 27.0 - 32.0 pcg LAB HEMETOLOGY METHOD 07/27/2024 1:[address] [facility] MCHC 32.6 32.0 - 37.0 g/dL LAB HEMETOLOGY METHOD 07/27/2024 1:03 PM EST [facility] RDW 13.4 11.0 - 15.0 % LAB HEMETOLOGY METHOD 07/27/2024 1:[address] [facility] Platelets 609(H) 130 - 400 K/mcL LAB HEMETOLOGY METHOD 07/27/2024 1:[address] [facility] MPV 9.9 7.0 - 11.0 FL LAB HEMETOLOGY METHOD 07/27/2024 1:[address] [facility] NRBC 0.0 <1.0 % LAB HEMETOLOGY METHOD 07/27/2024 1:[address] [facility] NRBC Absolute 0.00 <0.10 K/mcL LAB HEMETOLOGY METHOD 07/27/2024 1:[address] [facility] Blood Venous blood specimen / Unknown Venipuncture / Unknown 07/27/2024 8:36 AM EST 07/27/2024 11:49 AM EST us Carmela Thomas MD LAB BLOOD ORDERABLES Fin al Result [facility] [address] [place] [address], documented in this encounter Visit Diagnoses Diagnosis Heart failure, unspecified (CMS/HCC) Heart failure, unspecified documented in this encounter Care Teams Supervisor Furnace Process Relationship Specialty Start Date End Date Sushil Setwart MD [address] [place] [address] Rd [address] [place], [place] PCP - General Internal Medicine 10/14/17 documented as of this encounter
--- OUTSIDE RECORDS SUMMARY | 2024-07-30 12:56 | XMS_ITS | Patient Health Record ---
Author Organization [facility] [place] Address [address] [place] [address] Care Team Providers Care Career Coach Name Role Phone Sushil Stewart MD Primary Care Provider Unavail able Epifanio Palacios Unavailable [phone] Allergies Allergen (clinical drug ingredient) Drug/Non Drug Allergy documented on EMR Reaction Allergy Type Onset Date Status codeine Codeine hives Drug Allergy Active Reason For Referral No Information Medications Medication SIG (Take, Route, Frequency, Duration) Notes Start Date End Date Status Pentoxifylline ER No t-Taking hydroCHLOROthiazide Active Topiramate Not-Takin g Hyoscyamine Active oxyBUTYnin Not-Takin g Lyrica Active Stiolto Respimat Not -Taking Metoprolol Tartrate 25 MG Orally Active Nitrostat Active oxyCODONE-Acetaminophen Active Ocrevus Intravenous every 6 months Active Ventolin HFA Active vitamin D Active Atrovent Active Clopidogrel Bisulfate Not-Taking DULoxetine HCl Activ e Immunizations Vaccine Route Administration Date Status Comme nts COVID-19 Pfizer BioNTech Vaccine Unknown 09/15/2020 Administered 1st 08/25/2020 Social History Tobacco Use: Social History Observation Description Date Details (start date - stop date) Current Smoker NA - NA Tobacco Use/Smoking Question Answer Notes Are you a: current smoker How often do you smoke cigarettes? every day How many cigarettes a day do you smoke? 11-20 How soon after you wake up do you smoke your fir st cigarette? within 5 minutes Are you interested in quitting? Not ready to spike t Alcohol Screen Question Answer Notes Did you have a drink containing alcohol in the p ast year? No Points 0 Interpretation Negative Tobacco use other than smoking: Question Answer Notes Are you an other tobacco user? No Problems Problem Type SNOMED Code ICD Code Onset Dates Problem Status W/U Status Risk Notes Problem Atherosclerosis of tolowa dee-ni' arteries of the extremities ([id number]) Atherosclerosis of tolowa dee-ni' artery of both lower extremities, with unspecified presence of clinical manifestation (I70.203) Active confirmed Q7(A), Q8(2B), Q9(1B,2 C) Vital Signs Height 5 ft 3 in in 03/10/2024 Weight 130 lbs 03/10/2024 BMI 23.03 kg/m2 03/10/2024 Procedures Procedure Date Ordered Date Performed Result Body Sit e 15501-LJFNBHC NAIL, 6 OR MORE 10/08/2023 N/A 69300-OXLQ SKIN LESIONS, 2 TO 4 10/08/2023 N/A 75475-XPLLCEI NAIL, 6 OR MORE 12/24/2023 N/A 86479-LKVE SKIN LESIONS, 2 TO 4 12/24/2023 N/A 26654-JQQMCGC NAIL, 6 OR MORE 03/10/2024 N/A 61368-FYFO SKIN LESIONS, 2 TO 4 03/10/2024 N/A Encounters Encounter Location Date Provider Diagnosis [facility] [address] 10/08/2023 Epifanio Palacios Atherosclerosis of tolowa dee-ni' artery of both lower extremities, with unspecified presence of clinical manifestation I70.203 ; Tinea unguium B35.1 ; Pain in right toe(s) M79.674 ; Pain in left toe(s) M79.675 ; Bursitis of intermetatarsal bursa of left foot M77.52 ; Metatarsalgia of left foot M77.42 ; Bursitis of intermetatarsal bursa of right foot M77.51 and Metatarsalgia, right foot M77.[address] [facility] [address] 12/24/2023 Epifanio Palacios Atherosclerosis of tolowa dee-ni' artery of both lower extremities, with unspecified presence of clinical manifestation I70.203 ; Tinea unguium B35.1 ; Pain in right toe(s) M79.674 ; Pain in left toe(s) M79.675 ; Bursitis of intermetatarsal bursa of left foot M77.52 ; Metatarsalgia of left foot M77.42 ; Bursitis of intermetatarsal bursa of right foot M77.51 and Metatarsalgia, right foot M77.[address] [facility] [address] 03/10/2024 Epifanio Palacios Atherosclerosis of tolowa dee-ni' artery of both lower extremities, with unspecified presence of clinical manifestation I70.203 ; Tinea unguium B35.1 ; Pain in right toe(s) M79.674 ; Pain in left toe(s) M79.675 and Contusion of right great toe without damage to nail, initial encounter S90.111A [facility] [address] 09/09/2023 Epifanio Palacios [address] [address] 10/08/2023 Epifanio Palacios [address] [address] 12/25/2023 Epifanio Palacios [address] [address] 07/07/2024 Epifanio Palacios Assessments Encounter Date Diagnosis (ICD Code) Assessment Notes Treatment Notes Treatment Clinical Notes Section Notes 10/08/2023 Tinea unguium (ICD-10 - B35.1) 10/08/2023 Atherosclerosis of tolowa dee-ni' artery of both lower extremities, with unspecified presence of clinical manifestation (ICD-10 - I70.203) 12/24/2023 Tinea unguium (ICD-10 - B35.1) 12/24/2023 Atherosclerosis of tolowa dee-ni' artery of both lower extremities, with unspecified presence of clinical manifestation (ICD-10 - I70.203) 03/10/2024 Tinea unguium (ICD-10 - B35.1) 03/10/2024 Atherosclerosis of tolowa dee-ni' artery of both lower extremities, with unspecified presence of clinical manifestation (ICD-10 - I70.203) Q7(A), Q8(2B), Q9(1B,2C) 03/10/2024 Pain in right toe(s) (ICD-10 - M79.674) 12/24/2023 Pain in right toe(s) (ICD-10 - M79.674) 10/08/2023 Pain in right toe(s) (ICD-10 - M79.674) 10/08/2023 Pain in left toe(s) (ICD-10 - M79.675) 12/24/2023 Pain in left toe(s) (ICD-10 - M79.675) 03/10/2024 Pain in left toe(s) (ICD-10 - M79.675) 12/24/2023 Bursitis of intermetatarsal bursa of left foot (ICD-10 - M77.52) 03/10/2024 Contusion of right great toe without damage to nail, initial encounter (ICD-10 - S90.111A) 10/08/2023 Bursitis of intermetatarsal bursa of left foot (ICD-10 - M77.52) 12/24/2023 Metatarsalgia of left foot (ICD-10 - M77.42) 10/08/2023 Metatarsalgia of left foot (ICD-10 - M77.42) 12/24/2023 Bursitis of intermetatarsal bursa of right foot (ICD-10 - M77.51) 10/08/2023 Bursitis of intermetatarsal bursa of right foot (ICD-10 - M77.51) 12/24/2023 Metatarsalgia, right foot (ICD-10 - M77.41) 10/08/2023 Metatarsalgia, right foot (ICD-10 - M77.41) Plan Of Treatment Pending Test Test Name Order Date X ray : Foot, left 3V 03/19/2023 X ray : Foot, right 3V 03/19/2023 68826-NXNGOTG NAIL, 6 OR MORE 10/08/2023 30382-CXZEATW NAIL, 6 OR MORE 12/24/2023 13606-LDLIHLU NAIL, 6 OR MORE 03/10/2024 47419-JXESJEG NAIL, 6 OR MORE 10/10/2018 80130-LWZG SKIN LESIONS, 2 TO 4 03/10/20 27905-OVGE SKIN LESIONS, 2 TO 4 12/24/19 76226-DFIX SKIN LESIONS, 2 TO 4 10/08/19 24 Next Appt Details Provider Name:Epifanio Palacios , 10/09/2024 12:30:00 PM, [address] [place], [address], Insurance Providers Payer Name Payer Address Payer Phone Subscriber Number Group Number Insured Name Patient Relationship to Insured Coverage Start Date Coverage End Date Medicare National [employer]t [employer] [address] [facility] [place] [address] [id number] Isabela Leslie Self - patient is the insured [facility] [address] [place] [address] [id number] Isabela Leslie Self - patient is the insured Medical (General) History Medical History History ICD Code Back,Hip,and Knee pain Gall bladder problems Headaches High blood pressure Chicken pox Multiple sclerosis Osteoporosis chronic sinusitis Surgical History Surgery Date(Month/Year) hysterectomy cholecystectomy back surgery x4
--- OUTSIDE RECORDS SUMMARY | 2024-07-30 12:56 | XMS_ITS ---
Author Organization [facility] Address [address] [place] [address] Care Team Providers Care Oracle Specialist Name Role Phone Terry TERRY, Sushil Primary Care Provider Unavail able Epifanio Palacios Unavailable [phone] REASON FOR VISIT same day cx appt 07/07/24 Encounters Encounter Location Date [facility] [address] [address] 07/07/2024 Epifanio Palacios Plan Of Treatment Next Appt Details Provider Name:Epifanio Palacios , 10/09/2024 12:30:00 PM, [address] [place] [address], [phone], Progress Notes * Isabela MANZO MDOB: [birth year] (73 yo F)Acc No.[id number]:07/07/2024 Patient:?JOVANY Isabela Michelle :1950???Age:73 Y???Sex:Female Address:[address] [place] [address], [address] * true * Date:? Generated for Nelyi andree/Tanvir/eTransmitting on:?07/30/2024 12:55 PM EST
--- OUTSIDE RECORDS SUMMARY | 2024-07-30 12:56 | XMS_ITS | Clinical Summary ---
Author Organization [facility] Address [address] [place] [address] Phone Care Team Providers Care Geographic Information Scientist Name Role Phone Sushil Stewart MD Primary Care Provider Encounters Date Type Department Care Team Description 07/27/2024 Lab Requisition [facility] - Main Lab [address] [facility] [employer] [place] [address] Carmela Thomas MD Heart failure, unspecified ([facility]/HCC) from Last 3 Months Surgical History Surgery Date Site/Laterality Comments BACK SURGERY PROCEDURE: HISTORICAL BACK SURGERY; COMMENT: x 3 OTHER SURGICAL HISTORY PROCEDURE: HISTORY OTHER; COMMENT: sinus surgery HYSTERECTOMY PROCEDURE: HISTORICAL HYSTERECTOMY CHOLECYSTECTOMY PROCEDURE: HISTORICAL CHOLECYSTECTOMY ANGIOPLASTY PROCEDURE: HISTORICAL ANGIOPLASTY W/STENT OTHER SURGICAL HISTORY 11/03/2021 PROCEDURE: FL ARTHRD ANT INTERBODY MIN DSC CRV BELOW C2; COMMENT: C5-6 ACDF, Dr. Doss Medical History Medical History Date Comments COPD (chronic obstructive pu lmonary disease) (CMS/HCC) 04/11/2018 DX:COPD (chronic obstructive pulmonary disease) ([facility]) GERD (gastroesophageal reflu x disease) 04/11/2018 DX:GERD (gastroesophageal re flux disease) History of coronary artery s tent placement 04/11/2018 DX:History of coronary arter y stent placement HTN (hypertension) 04/11/2018 DX:HTN (hyper tension) Osteoporosis 04/11/2018 DX:Osteoporosis Depression 04/11/2018 DX:Depression CAD (coronary artery disease) 04/11/2018 DX :CAD (coronary artery disease); COMMENT: s/p angioplasty and stent placement. Peripheral neuropathy 04/11/2018 DX:Periphe ral neuropathy Migraines 04/11/2018 DX:Migraines Hearing loss 04/11/2018 DX:Hearing loss; COMMENT: Bilateral hearing aids Tubular adenoma 04/11/2018 DX:Tubular adeno ma; COMMENT: 01/01/2017 path report Monoclonal gammopathy of und etermined significance 04/11/2018 DX:Monoclonal gammopathy of undetermined significance Chronic back pain 04/11/2018 DX:Chronic sakina k pain Tobacco use 04/11/2018 DX:Tobacco use Family History Medical History Relation Name Comments Leukemia Father Hypertension Mother Other: Pace Maker Mother Other: breast tumor Mother Stroke Mother Relation Name Status Comments Father Mother Social History Tobacco Use Types Packs/Day Years Used Date Smoking Tobacco: Every Day Smokeless Tobacco: Never Alcohol Use Standard Drinks/Week Comments No 0 (1 standard drink = 0.6 oz pur e alcohol) Comments Unknown Sex and Gender Information Value Date Recorded Sex Assigned at Not on file Legal Sex Female 10:12 PM EST Gender Identity Not on file Sexual Orientation Not on file Obstetrics History Last Filed Vital Signs Vital Sign Reading Time Taken Comments Blood Pressure 122/60 02/12/2022 2:02 PM EDT Pulse 91 02/12/2022 2:02 PM EDT Temperature - - Respiratory Rate - - Oxygen Saturation - - Inhaled Oxygen Concentration - - Weight 57.6 kg (127 lb) 02/12/2022 2:02 PM EDT Height 160 cm (5' 3 ) 02/12/2022 2:02 PM EDT Body Mass Index 22.5 02/12/2022 2:02 PM EDT Plan of Treatment Health Maintenance Due Date Last Done Comments Breast Cancer Screening 1950 RSV Immunization Patients 60 + Years Old (1 - Risk 60-74 years 1-dose series) 2011 DTaP,Tdap,and Td Vaccines (2 - Td or Tdap) 10/24/2017 09/26/2017 Zoster Vaccines (2 of 2) 02/13/2018 12/19/2017 Pneumococcal Vaccine: 50+ Years (2 of 2 - PCV) 06/24/2020 06/24/2019 COVID-19 Vaccine (3 - Pfizer risk series) 10/13/2020 09/15/2020, 08/25/2020 Cholesterol Screening (Lipid Panel) 05/19/2022 Colorectal Cancer Screening: Colonoscopy 05/19/2022 Depression Screening 05/19/2022 Falls Risk Assessment 05/19/2022 Hepatitis C Screening 05/19/2022 Medicare Annual Wellness Visit 05/19/2022 Osteoporosis Screening (Bone Density Screening) 05/19/2022 Social Influencers of Health Screening 05/19/2022 Influenza Vaccine (#1) 2024 05/09/2019 Hypertension/CHF/CAD Annual BMP Blood Test 07/27/2025 07/27/2024 HIB Vaccines Aged Out No longer eligi ble based on patient's age to complete this topic HPV Vaccines Aged Out No longer eligi ble based on patient's age to complete this topic Hepatitis A Vaccines Aged Out No long er eligible based on patient's age to complete this topic Hepatitis B Vaccines Aged Out No long er eligible based on patient's age to complete this topic IPV Vaccines Aged Out No longer eligi ble based on patient's age to complete this topic MMR Vaccines Aged Out No longer eligi ble based on patient's age to complete this topic Meningococcal ACWY Vaccine Aged Out N o longer eligible based on patient's age to complete this topic Meningococcal B Vacine Aged Out No lo nger eligible based on patient's age to complete this topic RSV Immunization Patients Under 20 months Aged Out No longer eligible b ased on patient's age to complete this topic Varicella Vaccines Aged Out No longer eligible based on patient's age to complete this topic Procedures Procedure Name Priority Date/Time Associated Diagnosis Comments COMPREHENSIVE METABOLIC PANEL Routine 07/27/2024 8:36 AM EST Heart failure, unspecified (CMS/HCC) COMPLETE BLOOD COUNT Routine 07/27/2024 8:36 AM EST Heart failure, unspecified (CMS/HCC) from Last 3 Months Results * (ABNORMAL) Complete blood count (07/27/2024 8:36 AM EST) WBC 17.3(H) 4.8 - 10.8 K/mcL LAB HEMETOLOGY METHOD 07/27/2024 1:03 PM [facility] RBC 4.00 3.80 - 4.80 M/mcL LAB HEMETOLOGY METHOD 07/27/2024 1:03 PM [facility] Hemoglobin 12.0 11.5 - 16.0 g/dL LAB HEMETOLOGY METHOD 07/27/2024 1:03 PM [facility] Hematocrit 36.8 35.0 - 47.0 % LAB HEMETOLOGY METHOD 07/27/2024 1:03 PM [facility] MCV 92.0 79.0 - 98.0 FL LAB HEMETOLOGY METHOD 07/27/2024 1:03 PM [facility] MCH 30.0 27.0 - 32.0 pcg LAB HEMETOLOGY METHOD 07/27/2024 1:03 PM [facility] MCHC 32.6 32.0 - 37.0 g/dL LAB HEMETOLOGY METHOD 07/27/2024 1:03 PM [facility] RDW 13.4 11.0 - 15.0 % LAB HEMETOLOGY METHOD 07/27/2024 1:03 PM [facility] Platelets 609(H) 130 - 400 K/mcL LAB HEMETOLOGY METHOD 07/27/2024 1:03 PM EST [facility] MPV 9.9 7.0 - 11.0 FL LAB HEMETOLOGY METHOD 07/27/2024 1:03 PM [facility] NRBC 0.0 <1.0 % LAB HEMETOLOGY METHOD 07/27/2024 1:03 PM [facility] NRBC Absolute 0.00 <0.10 K/mcL LAB HEMETOLOGY METHOD 07/27/2024 1:03 PM [facility] Blood Venous blood specimen / Unknown Venipuncture / Unknown 07/27/2024 8:36 AM EST 07/27/2024 11:49 AM EST us Carmela Thomas MD LAB BLOOD ORDERABLES Fin al Result [facility] [address] [place] [address], * (ABNORMAL) Comprehensive metabolic panel (07/27/2024 8:36 AM EST) Sodium 140 133 - 145 mmol/L LAB CHEMISTRY METHOD 07/27/2024 2:15 PM [facility] Potassium 3.7 3.5 - 5.5 mmol/L LAB CHEMISTRY METHOD 07/27/2024 2:15 PM [facility] Chloride 102 96 - 110 mmol/L LAB CHEMISTRY METHOD 07/27/2024 2:15 PM [facility] CO2 28 21 - 32 mmol/L LAB CHEMISTRY METHOD 07/27/2024 2:15 PM [facility] Anion Gap 10 3 - 11 LAB CHEMISTRY METHOD 07/27/2024 2:15 PM [facility] Glucose 98 70 - 100 mg/dL LAB CHEMISTRY METHOD 07/27/2024 2:15 PM [facility] BUN 13 5 - 25 mg/dL LAB CHEMISTRY METHOD 07/27/2024 2:15 PM [facility] Creatinine 0.62 0.50 - 1.10 mg/dL LAB CHEMISTRY METHOD 07/27/2024 2:15 PM [facility] eGFR 95 >=60 mL/min/1. 73m2 LAB CHEMISTRY METHOD 07/27/2024 2:15 PM [facility] Comment:Calculation based on the??Chronic Kidney Disease Epidemiology Collaboration (CKD-EPI) equation refit??without adjustment for race. BUN/Creatinine Ratio 21.0 LAB CHEMISTRY METHOD 07/27/2024 2:15 PM [facility] Calcium 9.6 8.5 - 10.5 mg/dL LAB CHEMISTRY METHOD 07/27/2024 2:15 PM [facility] AST (SGOT) 34 10 - 42 unit/L LAB CHEMISTRY METHOD 07/27/2024 2:15 PM [facility] ALT (SGPT) 81(H) 10 - 60 unit/L LAB CHEMISTRY METHOD 07/27/2024 2:15 PM [facility] Alkaline Phosphatase 189(H) 42 - 121 unit/L LAB CHEMISTRY METHOD 07/27/2024 2:15 PM EST [facility] Total Protein 6.0 6.0 - 8.0 g/dL LAB CHEMISTRY METHOD 07/27/2024 2:15 PM EST [facility] Albumin 2.5(L) 3.2 - 5.0 g/dL LAB CHEMISTRY METHOD 07/27/2024 2:15 PM EST [facility] Total Bilirubin 0.3 0.0 - 1.4 mg/dL LAB CHEMISTRY METHOD 07/27/2024 2:15 PM EST [facility] Blood Venous blood specimen / Unknown Venipuncture / Unknown 07/27/2024 8:36 AM EST 07/27/2024 11:49 AM EST Carmela Thomas MD LAB BLOOD ORDERABLES Fin al Result [facility] [address] [place] [address], from Last 3 Months Insurance MEDICARE Care Teams Geographic Information Scientist Relationship Specialty Start Date End Date Sushil Stewart MD [address] [place] [address] [address] [place], [place] PCP - General Internal Medicine 10/14/17
--- OUTSIDE RECORDS SUMMARY | 2024-07-30 12:56 | XMS_ITS ---
Author Organization [facility] Address [address] [place] [address] Care Team Providers Care Women'S Basketball Coach Name Role Phone Terry TERRY, Sushil Primary Care Provider Unavail Epifanio Marin Unavailable [phone] Waddell Encounters Encounter Location Date Provider Diagnosis [address] [address] 06/12/2024 Epifanio Palacios Plan Of Treatment Next Appt Details Provider Name:Epifanio Palacios , 10/09/2024 12:30:00 PM, [address] [place] [address], [phone], Progress Notes * Isabela MANZO MDOB: [birth year] (73 yo F)Acc No.[id number]:06/12/2024 Progress Note Patient:?Isabela MANZO Provider:?Epifanio Palacios DPM :1950???Age:73 Y???Sex:Female D ate:06/12/2024 Address:[address] [place] [address] Pcp:Sushil Stewart MD Subjective: * Chief Complaints: * ???1. Dr Waddell. * Medical History:? Objective: * Vitals:? Assessment: Plan: * Treatment: * Images: * The named appointment provid er may or may not be the originator of this progress note, and it is not deemed complete until electronically signed by the appointment provider. Sign off status: Pending * Provider:?Epifanio Palacios DPM Date:?2023 Generated for Nadeem candelario/Tanvir/Carmen on:?07/30/2024 12:56 PM EST
--- NOTE | 2024-07-30 13:01 | A.OFFVIS_ITS ---
Intake Visit Reasons: PO - left hip CRPP 07/12/24 Intake Note: Isabela is a 73 year old female who presents today for a post op appointment s/p left hip CRPP 07/12/2024 Patient reports she is having pain. 6/10 in pain scale. Her grandson Felipe is here with her today. Allergies codeine [CODEINE] Allergy (Unknown, Verified 07/30/24 13:02) Hives Medication List - Last Reconciled 07/30/24 by Gaston Ponce PA-C amlodipine 10 mg See Protocol PO DAILY amoxicillin-pot clavulanate 875-125 mg 1 tab PO BID aspirin 81 mg PO DAILY aspirin 325 mg PO BID 35 days bupropion HCl SR 150 mg PO BID buspirone 10 mg PO BID gegjmlmnbs-buhvhpwjocpzs-imfw 50-300-40 mg 1 cap PO DAILY PRN cholecalciferol (vitamin D3) 100 mcg PO DAILY clopidogrel 75 mg PO DAILY cyclobenzaprine 10 mg PO DAILY PRN erenumab-aooe (Aimovig Autoinjector) 140 mg subcut Q28D esomeprazole magnesium 40 mg PO DAILY@0630 fluticasone propionate 50 mcg/actuation 1 spray intranasal BID PRN aryfevsonzo-zvtbpuizv-wbbskbay 100-62.5-25 mcg (Trelegy Ellipta) 1 ea inhalation DAILY immun glob G(IgG)-gly-IgA ov50 10 gram/50 mL (20 %) (Cuvitru) 50 mL subcut MO ipratropium-albuterol 0.5 mg-3 mg(2.5 mg base)/3 mL 3 mL inhalation QID PRN levalbuterol HCl 1.25 mg inhalation TID PRN losartan 50 mg See Protocol PO BEDTIME metoprolol tartrate 25 mg PO BID nicotine 14 mg transdermal DAILY nitroglycerin 0.4 mg sublingual Q5M PRN nystatin 400,000 units (4 mL) PO QID ocrelizumab 600 mg IV [id number] oxycodone-acetaminophen 10-325 mg 1 tab PO Q4H PRN roflumilast 500 mcg PO DAILY rosuvastatin 40 mg PO BEDTIME sertraline 50 mg PO DAILY HPI HPI PO - left hip CRPP 07/12/24 DR: Details: 73-year-old female returns to the office today status post left hip percutaneous pinning on 07/12/[address] Rodriguez. She states she is working with rehab and ambulating with a walker however there is some discomfort and weakness in the left hip. [facility] Medical History (Updated 07/20/24 @ 16:15 by Geovanna Taylor MD) Leukocytosis History of CAD (coronary artery disease) Peripheral vascular disease Chronic back pain GERD (gastroesophageal reflux disease) High cholesterol HTN (hypertension) Immune disorder COPD (chronic obstructive pulmonary disease) Multiple sclerosis Surgical History History of angioplasty History of heart artery stent Social History Household Members: Spouse Housing: House Do you presently have visiting nurse or other home services: No Alcohol intake: never Comment: sitter Patient Tobacco Use Status: Current everyday Tobacco user Tobacco use type: Cigarette Cigarette Packs Per Day: 1 Cigarettes Per Day: 20.0 Advance Directives Date on File: 11/22/22 service: No Current occupational status: retired Review of Systems Const All systems reviewed & are unremarkable except as noted in HPI and below Physical Exam Extrem Other: incision clean dry and intact. [place] intact. No erythema or effusion. Calf supple nontender. Neurovascularly intact. Results Reviewed Results Reviewed: X-rays deferred at this time Assessment & Plan Assessment & Plan (1) Subcapital fracture of left hip: Code(s): S72.012A - Unspecified intracapsular fracture of left femur, initial encounter for closed fracture Category: Medical Plan: [place] removed today Steri-Strips applied she will continue to work with physical therapy and occupational therapy for gait training, strengthening and ADLs. She is weight-bearing as tolerated with a walker. She will see us back in 4 weeks with x-rays sooner if needed. Coding Level of Care Code Global (99824) Diagnoses Subcapital fracture of left hip S72.012A
== END 2024-07-30 13:16 | disposition home or self-care (01) ==
PROVIDERS: PCP Internal Medicine; Visit Provider Physician Assistant
DX: S72.012A Unspecified intracapsular fracture of left femur, initial encounter for closed fracture (principal)
CPT/HCPCS: 99024

== ENCOUNTER → 2024-07-30 12:50 | Outpatient (BNVA) | payer MEDICARE, BC, SELFPAY | PROVIDERS: PCP Internal Medicine; Visit Provider Physician Assistant | DX: S72.012D Unspecified intracapsular fracture of left femur, subsequent encounter for closed fracture with routine healing (principal) | CPT/HCPCS: 99212 ==

== ENCOUNTER 2024-08-20 17:28 | Inpatient (IN) | payer MEDICARE, BC, SELFPAY ==
--- NOTE | 2024-08-20 | ECG_ITS ---
Test Reason : AMS Blood Pressure : */* mmHG Vent. Rate : 89 BPM Atrial Rate : 89 BPM P-R Int : 144 ms QRS Dur : 86 ms QT Int : 360 ms P-R-T Axes : * -27 144 degrees QTcB Int : 438 ms Normal sinus rhythm ST & T wave abnormality, consider lateral ischemia Abnormal ECG When compared with ECG of 06-Jul-2024 19:18, T wave inversion now evident in Lateral leads Referred By: Patti Coates Electronically Signed By: PARAM CASTELAN MD
--- NOTE | ~2024-08-20 | CT_ITS ---
CLINICAL HISTORY: change in mental status hx of multifocal pneumonia CT chest without contrast Comparison: CT/SR - CT ANGIO CHEST PE PROTOCOL - 07/20/24 22:37 EST Findings: There is no cardiomegaly. There is severe atherosclerotic disease of the aorta and coronary arteries No mediastinal adenopathy. No thyroid lesion. Mild centrilobular emphysema present. Improved previously seen bibasilar densities. Persistent probable atelectasis and/or scarring at the lung bases No effusion. No pneumothorax. No suspicious upper abdominal process. Chronic changes within the spine including multiple compression fractures noted. There is an acute compression fracture at T11 with approximately 30% height loss along the superior endplate. There is increased height loss of the compression fracture at T12. Impression: Acute to subacute T11 fracture, not present on the 07/11/2024 study. Progressive height loss of the known T12 compression fracture. Improved bibasilar opacities with persistent atelectasis and/or scarring Additional chronic changes. This document has been electronically signed by: Jabier Humphries MD on 08/20/2024 20:41:43
--- NOTE | ~2024-08-20 | CT_ITS ---
CLINICAL HISTORY: confusion CT head without contrast Comparison: CT/SR - CT HEAD/BRAIN WO IV CON - 07/17/24 16:40 EST Findings: No evidence of acute territorial infarct. There is mild patchy low density in the periventricular and subcortical white matter. Mild diffuse volume loss is noted. No hydrocephalus. No hemorrhage, mass effect, mass lesion or midline shift. No abnormal extra-axial fluid. No calvarial fracture. There is atelectasis of the right maxillary sinus and partial opacification of the left maxillary sinus. Impression: No evidence of acute process. Ischemic microangiopathy and diffuse volume loss. This document has been electronically signed by: Jabier Humphries MD on 08/20/2024 19:40:02
--- NOTE | ~2024-08-20 | MR_ITS ---
CLINICAL HISTORY: encephalopathy MR Brain without gadolinium Comparison: CT/SR - CT HEAD/BRAIN WO IV CON - 08/20/24 19:13 EST Findings: No restricted diffusion. Multiple foci of T2 hyperintensity within the white matter. Dominant lesion at the left frontoparietal junction. No significant change since the prior study. Findings are most likely secondary to small-vessel ischemia. Mild ischemic changes are also noted within the lula. No intracranial mass or hemorrhage. No midline shift. No hydrocephalus. Vascular flow voids are intact. Orbital contents are unremarkable. There is mucosal thickening within the left maxillary sinus. No focal bone lesion. IMPRESSION: No acute findings. This document has been electronically signed by: Alisha Ellington MD on 08/22/2024 16:46:06
--- NOTE | ~2024-08-20 | XR_ITS ---
CLINICAL HISTORY: weakness 1 view chest x-ray. Comparison: 07/20/2024 Findings: The lungs are adequately expanded. Faint right mid lung density. No effusion or pneumothorax. Cardiac and mediastinal contours are within normal limits. No acute osseous abnormality Impression: Faint right mid lung density, new from prior. Correlation for pneumonia. Follow-up recommended. This document has been electronically signed by: Jabier Humphries MD on 08/20/2024 18:42:19
--- NOTE | 2024-08-20 17:53 | ECG_ITS ---
Test Reason : TACHY Blood Pressure : */* mmHG Vent. Rate : 119 BPM Atrial Rate : 119 BPM P-R Int : 144 ms QRS Dur : 84 ms QT Int : 346 ms P-R-T Axes : 67 -38 74 degrees QTcB Int : 486 ms Sinus tachycardia Left axis deviation Possible Inferior infarct , age undetermined Abnormal ECG When compared with ECG of 20-Aug-2024 17:51, Nonspecific T wave abnormality no longer evident in Anterior leads Referred By: Deana Brock Electronically Signed By: PARAM CASTELAN MD
[2024-08-20 17:57] VITALS: BP 151/72; PULSE 92; RESP 18; TEMP 37.3; O2SAT 97; BMI 22.0
[2024-08-20 18:05] LABS: MANUAL DIFF FLAG NO
[2024-08-20 18:09] LABS: Basophils Percent Auto 0.2 % (0-2); Eosinophils Absolute Auto 0.1 X10*3/uL (0.0-0.4); Eosinophils Percent Auto 0.6 % (0-4); Hematocrit 27.1 % (37.0-47.0); Imm Gran Abs Auto 0.06 X10*3/uL (0.00-0.03); Imm Gran Pct Auto 0.5 % (0.0-0.4); Lymphocytes Absolute Auto 1.9 X10*3/uL (1.2-4.9); Lymphocytes Percent Auto 14.9 % (20-40); Mean Corpuscular HGB Conc 33.2 g/dl (31.0-35.0); Mean Corpuscular Hemoglobin 30.9 pg (27.0-33.0); Mean Corpuscular Volume 93.1 fL (80.0-98.0); Mean Platelet Volume 9.5 fL (9.4-12.3); Monocytes Absolute Auto 0.9 X10*3/uL (0.1-1.2); Monocytes Percent Auto 6.9 % (2-11); Neutrophils Absolute Auto 9.7 x10*3/uL (2.0-8.3); Neutrophils Percent Auto 76.9 % (45-73); Platelet Count 451 X10*3/uL (160-400); Red Blood Count 2.91 X10*6/uL (4.20-5.50); Red Cell Distribution Width 13.8 % (11.0-16.0); White Blood Count 12.5 X10*3/uL (4.8-10.8)
[2024-08-20 18:17] LABS: Ammonia 20 umol/L (13-55)
--- NOTE | 2024-08-20 18:18 | ED.GENADULT ---
HPI - General Adult General Chief complaint: General Medical Stated complaint: HALLUCINATIONS Time Seen by Provider: 08/20/24 17:38 Source: patient, EMS and old records reviewed Mode of arrival: EMS Limitations: no limitations History of Present Illness ED Provider: EBEN BARRIOS narrative: 73 yo female with PMH of CHF, COPD on 2L NC, depression, mood disorder, pneumonia, MS admitted here until 07/24 for pneumonia, COPD, L fem neck fx s/p CRPP here with c/o reported visual hallucinations for the last 5 hours. David patient has no complaints and is states that is not true. She denies CP/SOB, n/v/d. She denies any new falls. She states she feels fine. She states we need to check the chart as this cannot be right. She is alert and oriented x 3 on arrival. MD complaint: ?hallucinations Onset (ago): hour(s) (5) Location: head Radiation: non-radiation Severity: mild Relieving factors: none Exacerbating factors: none Associated symptoms: denies other symptoms Treatments prior to arrival: none Related Data Home Medications ?Medication ?Instructions ?Recorded ?Confirmed aspirin 81 mg capsule 81 mg PO DAILY 11/15/22 07/30/24 buspirone 10 mg tablet 10 mg PO BID 11/15/22 08/20/24 htzheenkje-bwxvxlmocxeck-kxudeifl 1 cap PO DAILY PRN Headache 11/15/22 08/20/24 50 mg-300 mg-40 mg capsule cholecalciferol (vitamin D3) 50 50 mcg PO DAILY 11/15/22 08/20/24 mcg (2,000 unit) capsule clopidogrel 75 mg tablet 75 mg PO DAILY 11/15/22 08/20/24 erenumab-aooe 140 mg/mL 140 mg subcut Q28D 11/15/22 08/20/24 subcutaneous auto-injector (Aimovig Autoinjector) esomeprazole magnesium 40 mg 40 mg PO DAILY@0630 11/15/22 08/20/24 capsule,delayed release fluticasone fur. 100 mcg-umeclid 1 ea inhalation DAILY 11/15/22 08/20/24 62.5 mcg-vilant 25 mcg inhalat.powder (Trelegy Ellipta) fluticasone propionate 50 1 spray intranasal BID PRN 11/15/22 08/20/24 mcg/actuation nasal allergies spray,suspension immun glob G 10 50 ml subcut MO 11/15/22 08/20/24 gram/50mL(20%)-gly-IgA over 50 mcg/mL subcutaneous suzanna (Cuvitru) levalbuterol HCl 1.25 mg/0.5 mL 1.25 mg inhalation TID PRN 11/15/22 08/20/24 solution for nebulization Shortness Of Breath Or Wheezing metoprolol tartrate 25 mg tablet 25 mg PO BID 11/15/22 08/20/24 nitroglycerin 0.4 mg sublingual 0.4 mg sublingual Q5M PRN Chest 11/15/22 08/20/24 tablet Pain ocrelizumab 30 mg/mL intravenous 600 mg IV [id number] 11/15/22 08/20/24 solution bupropion HCl 150 mg tablet,12 hr 150 mg PO DAILY 07/07/24 08/20/24 sustained-release cyclobenzaprine 10 mg tablet 10 mg PO DAILY PRN muscle spasms 07/07/24 08/20/24 ipratropium 0.5 mg-albuterol 3 mg 3 ml inhalation QID PRN wheezing 07/07/24 08/20/24 (2.5 mg base)/3 mL nebulization soln roflumilast 500 mcg tablet 500 mcg PO DAILY 07/07/24 08/20/24 rosuvastatin 40 mg tablet 40 mg PO BEDTIME 07/07/24 08/20/24 sertraline 50 mg tablet 50 mg PO DAILY 07/07/24 08/20/24 acetaminophen 325 mg tablet 650 mg PO NEEDED PRN pain or 08/20/24 08/20/24 fever greater than 100.0f bisacodyl 10 mg rectal suppository 10 mg KY NEEDED PRN step 2 if 08/20/24 08/20/24 no BM 8 hours after MOM magnesium hydroxide 400 mg/5 mL 30 ml PO NEEDED PRN No Bm for 08/20/24 08/20/24 oral suspension (Milk of Magnesia) three dats nicotine 14 mg/24 hr daily 7 mg transdermal DAILY 08/20/24 08/20/24 transdermal patch ondansetron HCl 4 mg tablet 4 mg PO Q8H PRN nausea/vomitting 08/20/24 08/20/24 sodium phosphates 19 gram-7 118 ml KY NEEDED PRN step 3-no 08/20/24 08/20/24 gram/118 mL enema (Fleet Enema) BM after 8h after Bisacodyl supp Previous Rx's ?Medication ?Instructions ?Recorded amlodipine 10 mg tablet 10 mg PO DAILY #90 tabs 07/23/24 amoxicillin 875 mg-potassium 1 tab PO BID #14 tabs 07/23/24 clavulanate 125 mg tablet aspirin 325 mg tablet 325 mg PO BID 35 days #70 tabs 07/23/24 losartan 50 mg tablet 50 mg PO BEDTIME #90 tabs 07/23/24 nystatin 100,000 unit/mL oral 400,000 unit (4 mL) PO QID #60 mL 07/23/24 suspension oxycodone-acetaminophen 10 mg-325 1 tab PO Q4H PRN Pain (Scale Score 07/23/24 mg tablet 4-6) #20 tabs Allergies Allergy/AdvReac Type Severity Reaction Status Date / Time codeine [CODEINE] Allergy Unknown Hives Verified 08/20/24 17:59 Review of Systems Review of Systems: Constitutional : No Fever, No Chills, No Fatigue ENT/Mouth : No sore throat, No Rhinorrhea Eyes: No Eye Pain, No Swelling, No Redness Cardiovascular : No Chest Pain, No SOB, No Dyspnea on Exertion Respiratory : No Cough, No Sputum Gastrointestinal : No Nausea, No Vomiting, No Diarrhea, No abdominal Pain Genitourinary : No Dysuria, No Urinary Frequency, No Hematuria, Musculoskeletal : No joint pain, No Myalgias, No Joint Swelling Skin : No Skin Lesions, No rash Neuro : No Weakness, No Numbness, No Dizziness, no Headache All other systems reviewed and are negative [facility] Past Medical History Attestation statement: The following information was validated with the patient. Source: old records reviewed Medical History MDD (major depressive disorder), recurrent episode Essential hypertension Leukocytosis History of CAD (coronary artery disease) Peripheral vascular disease Chronic back pain GERD (gastroesophageal reflux disease) High cholesterol HTN (hypertension) Immune disorder COPD (chronic obstructive pulmonary disease) Multiple sclerosis Surgical History History of angioplasty History of heart artery stent Social History Social History (Reviewed 08/20/24 @ 18:34 by TERRY Hutchinson Household Members: Spouse Housing: House Do you presently have visiting nurse or other home services: No Alcohol intake: never Comment: sitter Patient Tobacco Use Status: Current everyday Tobacco user Tobacco use type: Cigarette Cigarette Packs Per Day: 1 Cigarettes Per Day: 20.0 Smoked in Last 30 Days: No Use of substances other than those prescribed or required for medical reasons: No Advance Directives: Yes Advance Directives on File: Yes Advance Directives Date on File: 11/22/22 Do you have a plan to hurt others: No Plan service: No Current occupational status: retired Physical Exam ED Vital Signs: Vital Signs - 24 hr 08/20/24 17:57 08/20/24 19:34 08/20/24 20:17 Temperature 99.2 F 97.7 F 98.7 F Pulse Rate 92 91 89 Respiratory Rate 18 11 L 16 Blood Pressure 151/72 H 144/75 H 150/78 H Pulse Oximetry 97 95 99 Oxygen Delivery Method Room Air Nasal Cannula Room Air Oxygen Flow Rate 2 08/20/24 22:30 08/21/24 00:22 Temperature 99.1 F 97.4 F Pulse Rate 87 88 Respiratory Rate 16 20 Blood Pressure 169/71 H 142/75 H Pulse Oximetry 100 100 Oxygen Delivery Method Nasal Cannula Nasal Cannula Oxygen Flow Rate 4 2 BMI result Body Mass Index 22.0 Appearance: Alert. Oriented X3. No acute distress. Eyes: Pupils equal, round and reactive to light. ENT: Pharynx normal. Neck: Normal inspection. Neck supple. CVS: Normal heart rate and rhythm. Pulses normal. Respiratory: No respiratory distress. Breath sounds normal. Abdomen: Soft and non-tender. Skin: Skin warm and dry. Normal skin color. Normal skin turgor. Extremities: No lower extremity edema. No calf ttp Neuro: Oriented X 3. No motor deficit. No sensory deficit. CN2-12 intact NIH Stroke Scale Internal: Initial- Upon Arrival Level of Consciousness: Alert Level of Consciousness Questions: Answers both questions correctly Level of Consciousness Commands: Performs both tasks correctly Best Gaze: Normal Visual: No visual loss Facial Palsy: Normal Motor Arm (Right): No drift Motor Arm (Left): No drift Motor Leg (Right): No drift Motor Leg (Left): No drift Limb Ataxia: Absent Sensory: Normal Best Language: No aphasia Dysarthia: Normal Extinction and Inattention: No abnormality Score: 0 Course Course Course Narrative: confusion and delusions per [place] he states her episodes of confusion and hallucinations are since her fall in July but they seem worse recently at this time mild anemia but no active GIB will recheck CBC and refer to psychiatry in AM Reevaluation(s) Reevaluation #1: was agitated and more confused I gave her seroquel Medications Administered Discontinued Medications Generic Name Dose Route Start Last Admin Trade Name Freq PRN Reason Stop Dose Admin Cyclobenzaprine HCl 5 mg 08/20/24 20:56 08/20/24 21:03 Cyclobenzaprine Hcl 5 Mg Tablet PO 08/20/24 20:57 5 mg ONCE ONE Administration Potassium Chloride 20 meq 08/20/24 18:33 08/20/24 19:30 Potassium Chloride Er 20 Meq Tab.Er.Prt PO 08/20/24 18:34 20 meq ONCE ONE Administration Quetiapine Fumarate 25 mg 08/21/24 00:06 08/21/24 00:30 Quetiapine Fumarate 25 Mg Tablet PO 08/21/24 00:07 25 mg ONCE ONE Administration Medical Decision Making Medical Decision Making [facility] Narrative: 73 yo female with PMH of CHF, COPD on 2L NC, depression, mood disorder, pneumonia, MS admitted here until 07/24 for pneumonia, COPD, L fem neck fx s/p CRPP here with c/o having hallucinations at rehab - she denies this she has no focal findings on exam at this time will obtain basic labs, UA, CT head, CXR and look for any metabolic/toxic causes. NIH 0 on arrival Differential Diagnosis Differential Diagnoses: The differential diagnosis associated with the presentation includes polypharmacy, head injury, psychosis, cognitive impairment Admission/Observation Consideration of admission/observation: Escalation of care including admission/observation considered physician observation started at 850pm pending psych eval, repeat CBC in AM Lab Data [facility] Lab Attestation statement: I reviewed the patient's lab results. 08/20/24 18:00 08/20/24 18:00 Labs: Lab Results 08/20/24 08/20/24 08/20/24 Range/Units 18:00 18:01 18:18 WBC 12.5 H (4.8-10.8) X10*3/uL RBC 2.91 L (4.20-5.50) X10*6/uL Hgb 9.0 L (12.0-16.0) g/dl Hct 27.1 L (37.0-47.0) % MCV 93.1 (80.0-98.0) fL MCH 30.9 (27.0-33.0) pg MCHC 33.2 (31.0-35.0) g/dl RDW 13.8 (11.0-16.0) % Plt Count 451 H (160-400) X10*3/uL MPV 9.5 (9.4-12.3) fL Immature Gran % (Auto) 0.5 H (0.0-0.4) % Neut % (Auto) 76.9 H (45-73) % Lymph % (Auto) 14.9 L (20-40) % Sharkey % (Auto) 6.9 (2-11) % Eos % (Auto) 0.6 (0-4) % Baso % (Auto) 0.2 (0-2) % Lymph # (Auto) 1.9 (1.2-4.9) X10*3/uL Sharkey # (Auto) 0.9 (0.1-1.2) X10*3/uL Eos # (Auto) 0.1 (0.0-0.4) X10*3/uL Baso # (Auto) 0.0 (0.0-0.2) X10*3/uL Abs Immat Gran (auto) 0.06 H (0.00-0.03) X10*3/uL Absolute Neuts (auto) 9.7 H (2.0-8.3) x10*3/uL Absolute Nucleated RBC 0.000 (0.0-0.012) X10*3/uL Nucleated RBC % (auto) 0.0 (0.0-0.2) /100WBC VBG pH (7.32-7.43) VBG pCO2 mmHg VBG pO2 mmHg VBG HCO3 (22-26) mmol/L VBG O2 Saturation % VBG Base Excess mmol/L Sodium 144 (135-145) mmol/L Potassium 3.1 L (3.3-5.1) mmol/L Chloride 105 (96-108) mmol/L Carbon Dioxide 30 H (22-29) mmol/L Anion Gap 12 (12-20) BUN 10 (9-16) mg/dL Creatinine 0.66 (0.5-1.4) mg/dL Estim Creat Clear Calc 58.1 Estimated GFR > 60 Random Glucose 103 (60-115) mg/dL Calcium 9.2 (8.4-10.2) mg/dL Magnesium 1.7 (1.6-2.6) mg/dL Total Bilirubin 0.2 (0.0-1.0) mg/dL Direct Bilirubin < 0.2 (0.0-0.5) mg/dL AST 26 (5-31) U/L ALT 49 H (0-31) U/L Alkaline Phosphatase 191 H (39-117) U/L Ammonia 20 (13-55) umol/L Troponin I High Sens 4.6 D (<3.5-17.0) ng/L B-Natriuretic Peptide 160 H (<100) pg/mL Total Protein 6.4 L (6.5-8.0) g/dL Albumin 3.6 (3.5-5.0) g/dL TSH 0.74 (0.32-4.0) uIU/mL Urine Color Yellow Urine Appearance Clear Urine pH 7.0 (5.0-9.0) Ur Specific [place] 1.010 (1.005-1.025) Urine Protein Trace (Neg-Trace) mg/dL Urine Glucose (UA) Negative (Negative) mg/dL Urine Ketones Negative (Negative) mg/dL Urine Blood Negative (Negative) Urine Nitrite Negative (Negative) Ur Leukocyte Esterase Negative (Negative) 08/20/24 Range/Units 18:32 WBC (4.8-10.8) X10*3/uL RBC (4.20-5.50) X10*6/uL Hgb (12.0-16.0) g/dl Hct (37.0-47.0) % MCV (80.0-98.0) fL MCH (27.0-33.0) pg MCHC (31.0-35.0) g/dl RDW (11.0-16.0) % Plt Count (160-400) X10*3/uL MPV (9.4-12.3) fL Immature Gran % (Auto) (0.0-0.4) % Neut % (Auto) (45-73) % Lymph % (Auto) (20-40) % Sharkey % (Auto) (2-11) % Eos % (Auto) (0-4) % Baso % (Auto) (0-2) % Lymph # (Auto) (1.2-4.9) X10*3/uL Sharkey # (Auto) (0.1-1.2) X10*3/uL Eos # (Auto) (0.0-0.4) X10*3/uL Baso # (Auto) (0.0-0.2) X10*3/uL Abs Immat Gran (auto) (0.00-0.03) X10*3/uL Absolute Neuts (auto) (2.0-8.3) x10*3/uL Absolute Nucleated RBC (0.0-0.012) X10*3/uL Nucleated RBC % (auto) (0.0-0.2) /100WBC VBG pH 7.56 H (7.32-7.43) VBG pCO2 44 mmHg VBG pO2 28 mmHg VBG HCO3 39 H (22-26) mmol/L VBG O2 Saturation 39.0 % VBG Base Excess 15.6 mmol/L Sodium (135-145) mmol/L Potassium (3.3-5.1) mmol/L Chloride (96-108) mmol/L Carbon Dioxide (22-29) mmol/L Anion Gap (12-20) BUN (9-16) mg/dL Creatinine (0.5-1.4) mg/dL Estim Creat Clear Calc Estimated GFR Random Glucose (60-115) mg/dL Calcium (8.4-10.2) mg/dL Magnesium (1.6-2.6) mg/dL Total Bilirubin (0.0-1.0) mg/dL Direct Bilirubin (0.0-0.5) mg/dL AST (5-31) U/L ALT (0-31) U/L Alkaline Phosphatase (39-117) U/L Ammonia (13-55) umol/L Troponin I High Sens (<3.5-17.0) ng/L B-Natriuretic Peptide (<100) pg/mL Total Protein (6.5-8.0) g/dL Albumin (3.5-5.0) g/dL TSH (0.32-4.0) uIU/mL Urine Color Urine Appearance Urine pH (5.0-9.0) Ur Specific [place] (1.005-1.025) Urine Protein (Neg-Trace) mg/dL Urine Glucose (UA) (Negative) mg/dL Urine Ketones (Negative) mg/dL Urine Blood (Negative) Urine Nitrite (Negative) Ur Leukocyte Esterase (Negative) Independent Interpretation I performed an independent interpretation of an: EKG, Plain X-Ray (no pneumonia) and CT Scan (no acute findings or new pneumonia) Interpretation: Rate: 89 Rhythm: NSR [place]: left Normal P waves. Normal ELEN. Normal QRS complex. ST T wave : no JUAN FRANCISCO, inverted t waves V1, V2, I and AvL, no JUAN FRANCISCO qTC: 438 prior studies: similar to August EKG The study has been interpreted contemporaneously by me. . Radiology Impression Discussion of test interpretation with radiology: I have reviewed the radiologist's reading. Independent Historian Clinical information obtained from an independent historian. History obtained from or confirmed by: Spouse External Record Review External record reviewed: Inpatient record Discharge Plan Discharge Clinical Impression: Auditory hallucinations, Hypokalemia Patient Disposition: Still a Patient Prescriptions: No Action esomeprazole magnesium 40 mg capsule,delayed release(DR/EC) 40 mg PO DAILY@0630 buspirone 10 mg tablet 10 mg PO BID fluticasone propionate 50 mcg/actuation spray,suspension 1 spray intranasal BID PRN (Reason: allergies) cholecalciferol (vitamin D3) 50 mcg (2,000 unit) capsule 50 mcg PO DAILY ljwblkqxix-qbknhlheynapz-vkcl 50-300-40 mg capsule 1 cap PO DAILY PRN (Reason: Headache) Aimovig Autoinjector 140 mg/mL auto-injector 140 mg subcut Q28D Patient Comments: due 08/21 Cuvitru 10 gram/50 mL (20 %) solution 50 ml subcut MO Patient Comments: last dose 08/16/24? nitroglycerin 0.4 mg tablet, sublingual 0.4 mg sublingual Q5M PRN (Reason: Chest Pain) Rx Instructions: do not exceed 3 doses/24 hrs metoprolol tartrate 25 mg tablet 25 mg PO BID ocrelizumab 30 mg/mL Solution 600 mg IV [id number] aspirin 81 mg Capsule 81 mg PO DAILY Trelegy Ellipta 100-62.5-25 mcg blister with device 1 ea inhalation DAILY levalbuterol HCl 1.25 mg/0.5 mL solution for nebulization 1.25 mg inhalation TID PRN (Reason: Shortness Of Breath Or Wheezing) clopidogrel 75 mg tablet 75 mg PO DAILY bupropion HCl 150 mg tablet sustained-release 12 hr 150 mg PO DAILY ipratropium-albuterol 0.5 mg-3 mg(2.5 mg base)/3 mL solution for nebulization 3 ml inhalation QID PRN (Reason: wheezing) rosuvastatin 40 mg tablet 40 mg PO BEDTIME roflumilast 500 mcg tablet 500 mcg PO DAILY cyclobenzaprine 10 mg tablet 10 mg PO DAILY PRN (Reason: muscle spasms) sertraline 50 mg tablet 50 mg PO DAILY losartan 50 mg Tablet 50 mg PO BEDTIME Qty: 90 0RF Protocol: Hold for SBP< HOLD for SBP < : 90 nystatin 100,000 unit/mL Suspension 400,000 unit PO QID Qty: 60 0RF aspirin 325 mg Tablet 325 mg PO BID 35 Days Qty: 70 0RF amlodipine 10 mg Tablet 10 mg PO DAILY Qty: 90 0RF Protocol: Hold for SBP< HOLD for SBP < : 90 amoxicillin-pot clavulanate 875-125 mg tablet 1 tab PO BID Qty: 14 0RF oxycodone-acetaminophen 10-325 mg tablet 1 tab PO Q4H PRN (Reason: Pain (Scale Score 4-6)) Qty: 20 0RF acetaminophen 325 mg Tablet 650 mg PO NEEDED PRN (Reason: pain or fever greater than 100.0f) ondansetron HCl [Zofran] 4 mg Tablet 4 mg PO Q8H PRN (Reason: nausea/vomitting) magnesium hydroxide [Milk of Magnesia] 400 mg/5 mL Suspension 30 ml PO NEEDED PRN (Reason: No Bm for three dats) bisacodyl 10 mg Suppository 10 mg KY NEEDED PRN (Reason: step 2 if no BM 8 hours after MOM ) Fleet Enema 19-7 gram/118 mL Enema 118 ml KY NEEDED PRN (Reason: step 3-no BM after 8h after Bisacodyl supp) nicotine 14 mg/24 hr patch 24 hour 7 mg transdermal DAILY Print Language: Belarusian
[2024-08-20 18:27] LABS: Albumin Level 3.6 g/dL (3.5-5.0); Alkaline Phosphatase 191 U/L (39-117); Anion Gap 12 (12-20); Aspartate Amino Transferase 26 U/L (5-31); Bilirubin Direct < 0.2 mg/dL (0.0-0.5); Bilirubin Total 0.2 mg/dL (0.0-1.0); Blood Urea Nitrogen 10 mg/dL (9-16); Calcium 9.2 mg/dL (8.4-10.2); Carbon Dioxide 30 mmol/L (22-29); Chloride 105 mmol/L (96-108); Creatinine Clr Calc Pharmacy 58.1; Estimated Glomerular Filt Rate > 60; Glucose Random 103 mg/dL (60-115); Magnesium 1.7 mg/dL (1.6-2.6); Potassium 3.1 mmol/L (3.3-5.1); Sodium 144 mmol/L (135-145); Total Protein 6.4 g/dL (6.5-8.0)
[2024-08-20 18:33] LABS: VBG Base Excess 15.6 mmol/L; VBG HCO3 39 mmol/L (22-26); VBG pCO2 44 mmHg; VBG pH 7.56 (7.32-7.43); VBG pO2 28 mmHg
[2024-08-20 18:33] LABS: Appearance Urine Clear; Color Urine Yellow; Glucose Urine UA Negative (Negative); Leukocyte Esterase Urine Negative (Negative); Nitrite Urine Negative (Negative); Urine Blood Negative (Negative); Urine Ketones Negative (Negative); Urine Protein Trace mg/dL (Neg-Trace)
[2024-08-20 18:33] LABS: Troponin-I High Sensitivity 4.6 ng/L (<3.5-17.0)
[2024-08-20 18:34] LABS: Venous Blood Gas Refer to POC result
[2024-08-20 18:45] LABS: Alanine Aminotransferase 49 U/L (0-31)
[2024-08-20 18:48] LABS: TSH reflex Free T4 0.74 uIU/mL (0.32-4.0)
--- NOTE | 2024-08-20 19:03 | PC.NURSE ---
This RN reached out to SNF staff. Per RN, pt has been increasingly altered/having delusions/hallucinations. Per staff, pt was mentioning a daughter underneath her blanket, and her going to skilled nursing. Recent fall in July with hip Left hip fracture, pt has become more altered since. Pt a/ox3, able to answer orientation questions. Repeating questions to this RN. Pt updated on plan of care, call norman within reach, all needs met at this time.
[2024-08-20 19:22] LABS: B Type Natriuretic Peptide 160 pg/mL (<100)
[2024-08-20] MEDS: Potassium Chloride ER 20 MEQ TAB.ER.PRT PO (19:30)
[2024-08-20 19:34] VITALS: BP 144/75; PULSE 91; RESP 11; TEMP 36.5; O2SAT 95
--- OUTSIDE RECORDS SUMMARY | 2024-08-20 19:48 | XMS_ITS ---
Author Organization [facility] Address [address] [place] [address] Care Team Providers Care Distribution Center Administrator Name Role Phone Terry TERRY, Sushil Primary Care Provider Unavail able Epifanio Palacios Unavailable [phone] REASON FOR VISIT same day cx appt 07/07/24 Encounters Encounter [facility] Date [facility] [address] [address] [facility]/07[facility]24 Epifanio Palacios Plan Of Treatment Next Appt Details Provider Name:Epifanio Palacios , 10/30/2024 01:15:00 PM, [address] [place] [address], [phone], Progress Notes * Isabela MANZO MDOB: [birth year] (73 yo F)Acc No.[id number]:07/07/2024 Patient:?JOVANY Isabela Michelle :1950???Age:73 Y???Sex:Female Address:[address] [place] [address], [id number] * true * Date:? Generated for Nelyi andree/Tanvir/eTransmitting on:?08/20/2024 07:48 PM EST
--- OUTSIDE RECORDS SUMMARY | 2024-08-20 19:48 | XMS_ITS | Encounter Summary ---
Author Organization [facility] Address [address] [place] [address] Care Team Providers Care Tire Recapper Name Role Phone Sushil Stewart MD Primary Care Provider [phone] Encounter Details Date Type Department Care Team (Late st Contact Info) Description 07/27/[address] [facility] Lab [address] [place] [address] Carmela Thomas MD [address] [id number] Heart failure, unspecified (CMS/HCC) Social History Tobacco [...] LAB CHEMISTRY METHOD 07/27/2024 2:15 PM EST [facility] Potassium 3.7 3.5 - 5.5 mmol/L LAB CHEMISTRY METHOD 07/27/2024 2:15 PM [facility] Chloride 102 96 - 110 mmol/L LAB CHEMISTRY METHOD 07/27/2024 2:15 PM [facility] CO2 28 21 - 32 mmol/L LAB CHEMISTRY METHOD 07/27/2024 2:15 PM [facility] Anion Gap 10 3 - 11 LAB CHEMISTRY METHOD 07/27/2024 2:15 PM [facility] Glucose 98 70 - 100 mg/dL LAB CHEMISTRY METHOD 07/27/2024 2:15 PM [facility] BUN 13 5 - 25 mg/dL LAB CHEMISTRY METHOD 07/27/2024 2:15 PM [facility] Creatinine 0.62 0.50 - 1.10 mg/dL LAB CHEMISTRY METHOD 07/27/2024 2:15 PM [facility] eGFR 95 >=60 mL/min/1. 73m2 LAB CHEMISTRY METHOD 07/27/2024 2:15 PM [facility] Comment:Calculation based on the??Chronic Kidney Disease Epidemiology Collaboration (CKD-EPI) equation refit??without adjustment for race. BUN/Creatinine Ratio 21.0 LAB CHEMISTRY METHOD 07/27/2024 2:15 PM [facility] Calcium 9.6 8.5 - 10.5 mg/dL LAB CHEMISTRY METHOD 07/27/2024 2:15 PM [facility] AST (SGOT) 34 10 - 42 unit/L LAB CHEMISTRY METHOD 07/27/2024 2:15 PM [facility] ALT (SGPT) 81(H) 10 - 60 unit/L LAB CHEMISTRY METHOD 07/27/2024 2:15 PM [facility] Alkaline Phosphatase 189(H) 42 - 121 unit/L LAB CHEMISTRY METHOD 07/27/2024 2:15 PM [facility] Total Protein 6.0 6.0 - 8.0 g/dL LAB CHEMISTRY METHOD 07/27/2024 2:15 PM [facility] Albumin 2.5(L) 3.2 - 5.0 g/dL LAB CHEMISTRY METHOD 07/27/2024 2:15 PM [facility] Total Bilirubin 0.3 0.0 - 1.4 mg/dL LAB CHEMISTRY METHOD 07/27/2024 2:15 PM [facility] Blood Venous blood specimen / Unknown Venipuncture / Unknown 07/27/2024 8:36 AM EST 07/27/2024 11:49 AM EST us Carmela Thomas MD LAB BLOOD ORDERABLES Fin al Result [facility] [address] [place] [address], * (ABNORMAL) Complete blood count (07/27/2024 8:36 AM EST) WBC 17.3(H) 4.8 - 10.8 K/mcL LAB HEMETOLOGY METHOD 07/27/2024 1:03 PM [facility] RBC 4.00 3.80 - 4.80 M/mcL LAB HEMETOLOGY METHOD 07/27/2024 1:03 PM [facility] Hemoglobin 12.0 11.5 - 16.0 g/dL LAB HEMETOLOGY METHOD 07/27/2024 1:03 PM [facility] Hematocrit 36.8 35.0 - 47.0 % LAB HEMETOLOGY METHOD 07/27/2024 1:03 PM [facility] MCV 92.0 79.0 - 98.0 FL LAB HEMETOLOGY METHOD 07/27/2024 1:03 PM [facility] MCH 30.0 27.0 - 32.0 pcg LAB HEMETOLOGY METHOD 07/27/2024 1:03 PM [facility] MCHC 32.6 32.0 - 37.0 g/dL LAB HEMETOLOGY METHOD 07/27/2024 1:03 PM EST [facility] RDW 13.4 11.0 - 15.0 % LAB HEMETOLOGY METHOD 07/27/2024 1:03 PM [facility] Platelets 609(H) 130 - 400 K/mcL LAB HEMETOLOGY METHOD 07/27/2024 1:03 PM [facility] MPV 9.9 7.0 - 11.0 FL LAB HEMETOLOGY METHOD 07/27/2024 1:03 PM [facility] NRBC 0.0 <1.0 % LAB HEMETOLOGY METHOD 07/27/2024 1:03 PM [facility] NRBC Absolute 0.00 <0.10 K/mcL LAB HEMETOLOGY METHOD 07/27/2024 1:03 PM [facility] Blood Venous blood specimen / Unknown Venipuncture / Unknown 07/27/2024 8:36 AM EST 07/27/2024 11:49 AM EST us Carmela Thomas MD LAB BLOOD ORDERABLES Fin al Result [facility] [address] [place] [address], documented in this encounter Visit Diagnoses Diagnosis Heart failure, unspecified (CMS/HCC) Heart failure, unspecified documented in this encounter Care Teams Tire Recapper Relationship Specialty Start Date End Date Sushil Stewart MD [address] [place] [address] Rd [address] [place], [place] PCP - General Internal Medicine 10/14/17 documented as of this encounter
--- OUTSIDE RECORDS SUMMARY | 2024-08-20 19:49 | XMS_ITS | Encounter Summary ---
Author Organization [facility] Address [address] [place] [address] Care Team Providers Care Car Pusher Name Role Phone Sushil Stewart MD Primary Care Provider [phone] Encounter Details Date Type Department Care Team (Late st Contact Info) Description 08/01/2024 Lab Requisition [facility] - Main Lab [address] [place] [address] Carmela Thomas MD [address] [id number] Heart failure, unspecified (CMS/HCC) Social History Tobacco [...] Associated Diagnosis Comments COMPLETE BLOOD COUNT Routine 08/03/2024 7:22 AM EST Heart failure, unspecified (CMS/HCC) COMPREHENSIVE METABOLIC PANEL Routine 08/03/2024 7:22 AM EST Heart failure, unspecified (CMS/HCC) documented in this encounter Results * (ABNORMAL) Comprehensive metabolic panel (08/03/2024 7:22 AM EST) Sodium 140 133 - 145 mmol/L LAB CHEMISTRY METHOD 08/03/2024 11:51 AM EST [facility] Potassium 3.2(L) 3.5 - 5.5 mmol/L LAB CHEMISTRY METHOD 08/03/2024 11:51 AM [facility] Chloride 101 96 - 110 mmol/L LAB CHEMISTRY METHOD 08/03/2024 11:51 AM [facility] CO2 33(H) 21 - 32 mmol/L LAB CHEMISTRY METHOD 08/03/2024 11:51 AM [facility] Anion Gap 6 3 - 11 LAB CHEMISTRY METHOD 08/03/2024 11:51 AM [facility] Glucose 87 70 - 100 mg/dL LAB CHEMISTRY METHOD 08/03/2024 11:51 AM [facility] BUN 16 5 - 25 mg/dL LAB CHEMISTRY METHOD 08/03/2024 11:51 AM [facility] Creatinine 0.62 0.50 - 1.10 mg/dL LAB CHEMISTRY METHOD 08/03/2024 11:51 AM [facility] eGFR 95 >=60 mL/min/1. 73m2 LAB CHEMISTRY METHOD 08/03/2024 11:51 AM [facility] Comment:Calculation based on the??Chronic Kidney Disease Epidemiology Collaboration (CKD-EPI) equation refit??without adjustment for race. BUN/Creatinine Ratio 25.8 LAB CHEMISTRY METHOD 08/03/2024 11:51 AM [facility] Calcium 9.4 8.5 - 10.5 mg/dL LAB CHEMISTRY METHOD 08/03/2024 11:51 AM [facility] AST (SGOT) 37 10 - 42 unit/L LAB CHEMISTRY METHOD 08/03/2024 11:51 AM [facility] ALT (SGPT) 63(H) 10 - 60 unit/L LAB CHEMISTRY METHOD 08/03/2024 11:51 AM [facility] Alkaline Phosphatase 193(H) 42 - 121 unit/L LAB CHEMISTRY METHOD 08/03/2024 11:51 AM [facility] Total Protein 5.9(L) 6.0 - 8.0 g/dL LAB CHEMISTRY METHOD 08/03/2024 11:51 AM [facility] Albumin 3.0(L) 3.2 - 5.0 g/dL LAB CHEMISTRY METHOD 08/03/2024 11:51 AM [facility] Total Bilirubin 0.3 0.0 - 1.4 mg/dL LAB CHEMISTRY METHOD 08/03/2024 11:51 AM [facility] Blood Venous blood specimen / Unknown Venipuncture / Unknown 08/03/2024 7:22 AM EST 08/03/2024 10:51 AM EST us Carmela Thomas MD LAB BLOOD ORDERABLES Fin al Result [facility] [address] [place] [address], * (ABNORMAL) Complete blood count (08/03/2024 7:22 AM EST) WBC 11.0(H) 4.8 - 10.8 K/mcL LAB HEMETOLOGY METHOD 08/03/2024 11:15 AM [facility] RBC 3.60(L) 3.80 - 4.80 M/mcL LAB HEMETOLOGY METHOD 08/03/2024 11:15 AM [facility] Hemoglobin 10.9(L) 11.5 - 16.0 g/dL LAB HEMETOLOGY METHOD 08/03/2024 11:15 AM [facility] Hematocrit 33.8(L) 35.0 - 47.0 % LAB HEMETOLOGY METHOD 08/03/2024 11:15 AM [facility] MCV 94.9 79.0 - 98.0 FL LAB HEMETOLOGY METHOD 08/03/2024 11:15 AM [facility] MCH 30.6 27.0 - 32.0 pcg LAB HEMETOLOGY METHOD 08/03/2024 11:15 AM EST [facility] MCHC 32.2 32.0 - 37.0 g/dL LAB HEMETOLOGY METHOD 08/03/2024 11:15 AM [facility] RDW 13.5 11.0 - 15.0 % LAB HEMETOLOGY METHOD 08/03/2024 11:15 AM EST [facility] Platelets 347 130 - 400 K/mcL LAB HEMETOLOGY METHOD 08/03/2024 11:15 AM EST [facility] MPV 10.4 7.0 - 11.0 FL LAB HEMETOLOGY METHOD 08/03/2024 11:15 AM [facility] NRBC 0.0 <1.0 % LAB HEMETOLOGY METHOD 08/03/2024 11:15 AM [facility] NRBC Absolute 0.00 <0.10 K/mcL LAB HEMETOLOGY METHOD 08/03/2024 11:15 AM [facility] Blood Venous blood specimen / Unknown Venipuncture / Unknown 08/03/2024 7:22 AM EST 08/03/2024 10:51 AM EST us Carmela Thomas MD LAB BLOOD ORDERABLES Fin al Result [facility] [address] [place] [address], documented in this encounter Visit Diagnoses Diagnosis Heart failure, unspecified (CMS/HCC) Heart failure, unspecified documented in this encounter Care Teams Car Pusher Relationship Specialty Start Date End Date Sushil Stewart MD [address] [place] [address] [address] [place], [place] PCP - General Internal Medicine 10/14/17 documented as of this encounter
--- OUTSIDE RECORDS SUMMARY | 2024-08-20 19:49 | XMS_ITS | Patient Health Record ---
Author Organization [facility] Address [address] [place] [address] Care Team Providers Care Marine Surveyor Name Role Phone Sushil Stewart MD Primary Care Provider Unavail able Epifanio Palacios Unavailable [phone] Allergies Allergen (clinical drug ingredient) Drug/Non Drug [...] W/U Status Risk Notes Problem Atherosclerosis of [place] arteries of the extremities ([id number]) Atherosclerosis of [place]iak artery of both lower extremities, with unspecified presence of clinical manifestation (I70.203) Active confirmed Q7(A), Q8(2B), Q9(1B,2 C) Vital Signs Height 5 ft 3 in in 03/10/2024 Weight 130 lbs 03/10/2024 BMI 23.03 kg/m2 03/10/2024 Procedures Procedure Date Ordered Date Performed Result Body Sit e 16930-FPNTBAH NAIL, 6 OR MORE 10/08/2023 N/A 32500-VQMA SKIN LESIONS, 2 TO 4 10/08/2023 N/A 52850-ODUTSQE NAIL, 6 OR MORE 12/24/2023 N/A 56191-SVTB SKIN LESIONS, 2 TO 4 12/24/2023 N/A 98620-ZJWILPD NAIL, 6 OR MORE 03/10/2024 N/A 47309-CWCV SKIN LESIONS, 2 TO 4 03/10/2024 N/A Encounters Encounter Location Date [facility] [address] 10/08/2023 Epifanio Palacios Atherosclerosis of [place] artery of both lower extremities, with unspecified presence of clinical manifestation I70.203 ; Tinea unguium B35.1 ; Pain in right toe(s) M79.674 ; Pain in left toe(s) M79.675 ; Bursitis of intermetatarsal bursa of left foot M77.52 ; Metatarsalgia of left foot M77.42 ; Bursitis of intermetatarsal bursa of right foot M77.51 and Metatarsalgia, right foot M77.[address] [facility] [address] 12/24/2023 Epifanio Palacios Atherosclerosis of [place] artery of both lower extremities, with unspecified presence of clinical manifestation I70.203 ; Tinea unguium B35.1 ; Pain in right toe(s) M79.674 ; Pain in left toe(s) M79.675 ; Bursitis of intermetatarsal bursa of left foot M77.52 ; Metatarsalgia of left foot M77.42 ; Bursitis of intermetatarsal bursa of right foot M77.51 and Metatarsalgia, right foot M77.[address] [facility] [address] 03/10/2024 Epifanio Palacios Atherosclerosis of [place]iak artery of both lower extremities, with unspecified presence of clinical manifestation I70.203 ; Tinea unguium B35.1 ; Pain in right toe(s) M79.674 ; Pain in left toe(s) M79.675 and Contusion of right great toe without damage to nail, initial encounter S90.111A [facility] [address] 09/09/2023 Epifanio Palacios [address] [address] 10/08/2023 Epifanio Palacios [address] [address] 12/25/2023 Epifanio Palacios [address] [address] 07/07/2024 Epifanio Palacios Assessments Encounter Date Diagnosis (ICD Code) Assessment Notes Treatment Notes Treatment Clinical Notes Section Notes 10/08/2023 Tinea unguium (ICD-10 - B35.1) 10/08/2023 Atherosclerosis of [place]iak artery of both lower extremities, with unspecified presence of clinical manifestation (ICD-10 - I70.203) 12/24/2023 Tinea unguium (ICD-10 - B35.1) 12/24/2023 Atherosclerosis of [place]iak artery of both lower extremities, with unspecified presence of clinical manifestation (ICD-10 - I70.203) 03/10/2024 Tinea unguium (ICD-10 - B35.1) 03/10/2024 Atherosclerosis of [place]iak artery of both lower extremities, with unspecified [...] X ray : Foot, right 3V 03/19/2023 09534-ZHGQEHV NAIL, 6 OR MORE 10/08/2023 43534-WTIVVYI NAIL, 6 OR MORE 12/24/2023 26595-IPGRXVZ NAIL, 6 OR MORE 03/10/2024 75075-DNAFNNN NAIL, 6 OR MORE 10/10/2018 67045-JTWZ SKIN LESIONS, 2 TO 4 03/10/20 69649-WOZD SKIN LESIONS, 2 TO 4 12/24/19 94871-OQDV SKIN LESIONS, 2 TO 4 10/08/19 24 Next Appt Details Provider Name:Epifanio Palacios , 10/30/2024 01:15:00 PM, [address] [place], [address], Insurance Providers Payer Name Payer Address Payer Phone Subscriber Number Group Number Insured Name Patient Relationship to Insured Coverage Start Date Coverage End Date Medicare National [employer] [address] [place] [address] [id number] Isabela Leslie Self - patient is the insured [facility] [address] [place] [address] [id number] Isabela Leslie Self - patient is the insured Medical (General) History Medical History History ICD Code Back,Hip,and Knee pain Gall bladder problems Headaches High blood pressure Chicken pox Multiple sclerosis Osteoporosis chronic sinusitis Surgical History Surgery Date(Month/Year) hysterectomy cholecystectomy back surgery x4
--- OUTSIDE RECORDS SUMMARY | 2024-08-20 19:49 | XMS_ITS ---
Author Organization [facility] Address [address] [place] [address] Care Team Providers Care Glue Wheel Operator Name Role Phone Sushil Stewart MD Primary Care Provider Unavail Epifanio Marin Unavailable [phone] Allergies Allergen (clinical drug ingredient) Drug/Non Drug [...] Active Encounters Encounter Location Date Provider Diagnosis [address] [address] 07/07/2024 Epifanio Palacios Plan Of Treatment Next Appt Details Provider Name:Epifanio Palacios , 10/30/2024 01:15:00 PM, [address] [place] [address], [address], Progress Notes * Isabela MANZO MDOB: [birth year] (73 yo F)Acc No.[id number]:07/07/2024 Progress Note Patient:?JOVANY Isabela Michelle Provider:?Epifanio Palacios DPM :1950???Age:73 Y???Sex:Female D ate:07/07/2024 Address:[address] [facility] Pcp:Sushil Stewart MD Subjective: * Chief Complaints: [...] Palacios DPM Date:?2024 Generated for Nadeem candelario/Tanvir/Brissaitting on:?08/20/2024 07:49 PM EST
--- OUTSIDE RECORDS SUMMARY | 2024-08-20 19:49 | XMS_ITS | Clinical Summary ---
Author Organization [address] Address [address] [place] [address] Phone Care Team Providers Care Counter Attendant Name Role Phone Sushil Stewart MD Primary Care Provider [phone] Encounters Date Type Department Care Team Description 08/16/2024 Lab Requisition [facility] [address] [place] [phone] Carmela Thomas MD Heart failure, unspecified (CMS/HCC) 08/08/2024 Lab Requisition [facility] [address] [place] [address] Carmela Thomas MD Heart failure, unspecified (CMS/HCC) 08/01/2024 Lab Requisition [facility] [address] [place] [phone] Carmela Thomas MD Heart failure, unspecified (CMS/HCC) 07/27/2024 Lab Requisition [facility] [address] [place] [address] Carmela Thomas MD Heart failure, unspecified (CMS/HCC) from Last 3 Months Surgical History Surgery Date Site/Laterality Comments BACK SURGERY PROCEDURE: HISTORICAL BACK SURGERY; COMMENT: x 3 OTHER SURGICAL HISTORY PROCEDURE: HISTORY OTHER; COMMENT: sinus surgery HYSTERECTOMY PROCEDURE: HISTORICAL HYSTERECTOMY CHOLECYSTECTOMY PROCEDURE: HISTORICAL CHOLECYSTECTOMY ANGIOPLASTY PROCEDURE: HISTORICAL ANGIOPLASTY W/STENT OTHER SURGICAL HISTORY 11/03/2021 PROCEDURE: WA ARTHRD ANT INTERBODY MIN DSC CRV BELOW C2; COMMENT: C5-6 ACDF, Dr. Doss Medical History Medical History Date Comments COPD (chronic obstructive pu lmonary disease) (CMS/HCC) 04/11/2018 DX:COPD (chronic obstructive pulmonary disease) (HCC) GERD (gastroesophageal reflu x disease) 04/11/2018 DX:GERD [...] Breast Cancer Screening 1950 RSV Immunization Patients 60+ Years Old (1 - Risk 60-74 years 1-dose series) 2011 Zoster Vaccines (2 of 2) 02/13/2018 12/19/2017 [...] 2024 05/09/2019 Hypertension/CHF/CAD Annual BMP Blood Test 08/17/2025 08/17/2024, 08/10/2024, 08/03/2024, Additional history exists DTaP,Tdap,and Td Vaccines (2 - Td or Tdap) 09/27/2027 09/26/2017 HIB Vaccines Aged Out No longer eligi [...] 20 months Aged Out No longer eligible based on patient's age to complete this topic Varicella Vaccines Aged Out No longer eligible based on patient's age to complete this topic Procedures Procedure Name Priority Date/Time Associated Diagnosis Comments COMPREHENSIVE METABOLIC PANEL Routine 08/17/2024 9:34 AM EST Heart failure, unspecified (CMS/HCC) COMPLETE BLOOD COUNT Routine 08/17/2024 9:34 AM EST Heart failure, unspecified (CMS/HCC) COMPREHENSIVE METABOLIC PANEL Routine 08/10/2024 8:28 AM EST Heart failure, unspecified (CMS/HCC) COMPLETE BLOOD COUNT Routine 08/10/2024 8:28 AM EST Heart failure, unspecified (CMS/HCC) COMPREHENSIVE METABOLIC PANEL Routine 08/03/2024 7:22 AM EST Heart failure, unspecified (CMS/HCC) COMPLETE BLOOD COUNT Routine 08/03/2024 7:22 AM EST Heart failure, unspecified (CMS/HCC) COMPREHENSIVE METABOLIC PANEL Routine 07/27/2024 8:36 AM EST Heart failure, unspecified (CMS/HCC) COMPLETE BLOOD COUNT Routine 07/27/2024 8:36 AM EST Heart failure, unspecified (CMS/HCC) from Last 3 Months Results * (ABNORMAL) Complete blood count (08/17/2024 9:34 AM EST) Only the most recent of4 resultswithin the time period is included. WBC 13.9(H) 4.8 - 10.8 K/mcL LAB HEMETOLOGY METHOD 08/17/2024 1:30 PM [facility] RBC 3.10(L) 3.80 - 4.80 M/mcL LAB HEMETOLOGY METHOD 08/17/2024 1:30 PM [facility] Hemoglobin 9.4(L) 11.5 - 16.0 g/dL LAB HEMETOLOGY METHOD 08/17/2024 1:30 PM [facility] Hematocrit 30.2(L) 35.0 - 47.0 % LAB HEMETOLOGY METHOD 08/17/2024 1:30 PM [facility] MCV 97.7 79.0 - 98.0 FL LAB HEMETOLOGY METHOD 08/17/2024 1:30 PM EST [facility] MCH 30.4 27.0 - 32.0 pcg LAB HEMETOLOGY METHOD 08/17/2024 1:30 PM [facility] MCHC 31.1(L) 32.0 - 37.0 g/dL LAB HEMETOLOGY METHOD 08/17/2024 1:30 PM EST [facility] RDW 14.0 11.0 - 15.0 % LAB HEMETOLOGY METHOD 08/17/2024 1:30 PM [facility] Platelets 427(H) 130 - 400 K/mcL LAB HEMETOLOGY METHOD 08/17/2024 1:30 PM [facility] MPV 10.3 7.0 - 11.0 FL LAB HEMETOLOGY METHOD 08/17/2024 1:30 PM EST [facility] NRBC 0.0 <1.0 % LAB HEMETOLOGY METHOD 08/17/2024 1:30 PM [facility] NRBC Absolute 0.00 <0.10 K/mcL LAB HEMETOLOGY METHOD 08/17/2024 1:30 PM [facility] Blood Venous blood specimen / Unknown Venipuncture / Unknown 08/17/2024 9:34 AM EST 08/17/2024 11:30 AM EST us Carmela Thomas MD LAB BLOOD ORDERABLES Fin al Result [facility] [address] [place] [address], * (ABNORMAL) Comprehensive metabolic panel (08/17/2024 9:34 AM EST) Only the most recent of4 resultswithin the time period is included. Sodium 139 133 - 145 mmol/L LAB CHEMISTRY METHOD 08/17/2024 2:03 PM EST [facility] Potassium 3.7 3.5 - 5.5 mmol/L LAB CHEMISTRY METHOD 08/17/2024 2:03 PM [facility] Chloride 102 96 - 110 mmol/L LAB CHEMISTRY METHOD 08/17/2024 2:03 PM [facility] CO2 30 21 - 32 mmol/L LAB CHEMISTRY METHOD 08/17/2024 2:03 PM [facility] Anion Gap 7 3 - 11 LAB CHEMISTRY METHOD 08/17/2024 2:03 PM [facility] Glucose 157(H) 70 - 100 mg/dL LAB CHEMISTRY METHOD 08/17/2024 2:03 PM [facility] BUN 13 5 - 25 mg/dL LAB CHEMISTRY METHOD 08/17/2024 2:03 PM [facility] Creatinine 0.65 0.50 - 1.10 mg/dL LAB CHEMISTRY METHOD 08/17/2024 2:03 PM [facility] eGFR 94 >=60 mL/min/1. 73m2 LAB CHEMISTRY METHOD 08/17/2024 2:03 PM [facility] Comment:Calculation based on the??Chronic Kidney Disease Epidemiology Collaboration (CKD-EPI) equation refit??without adjustment for race. BUN/Creatinine Ratio 20.0 LAB CHEMISTRY METHOD 08/17/2024 2:03 PM [facility] Calcium 9.8 8.5 - 10.5 mg/dL LAB CHEMISTRY METHOD 08/17/2024 2:03 PM [facility] AST (SGOT) 23 10 - 42 unit/L LAB CHEMISTRY METHOD 08/17/2024 2:03 PM [facility] ALT (SGPT) 70(H) 10 - 60 unit/L LAB CHEMISTRY METHOD 08/17/2024 2:03 PM [facility] Alkaline Phosphatase 177(H) 42 - 121 unit/L LAB CHEMISTRY METHOD 08/17/2024 2:03 PM [facility] Total Protein 6.0 6.0 - 8.0 g/dL LAB CHEMISTRY METHOD 08/17/2024 2:03 PM EST [facility] Albumin 2.9(L) 3.2 - 5.0 g/dL LAB CHEMISTRY METHOD 08/17/2024 2:03 PM EST [facility] Total Bilirubin 0.2 0.0 - 1.4 mg/dL LAB CHEMISTRY METHOD 08/17/2024 2:03 PM EST [facility] Blood Venous blood specimen / Unknown Venipuncture / Unknown 08/17/2024 9:34 AM EST 08/17/2024 11:30 AM EST us Carmela Thomas MD LAB BLOOD ORDERABLES Fin al Result [facility] [address] [place] [address], from Last 3 Months Insurance MEDICARE Care Teams Counter Attendant Relationship Specialty Start Date End Date Sushil Stewart MD [address] [place] [address] [address] [place], [place] PCP - General Internal Medicine 10/14/17
--- OUTSIDE RECORDS SUMMARY | 2024-08-20 19:49 | XMS_ITS | Encounter Summary ---
Author Organization [facility] Address [address] [place] [address] Care Team Providers Care Parts Puller Name Role Phone Sushil Stewart MD Primary Care Provider [phone] Encounter Details Date Type Department Care Team (Late st Contact Info) Description 08/16/2024 Lab Requisition [facility] - Main Lab [address] [place] [address] Carmela Thomas MD [address] [id number] Heart failure, unspecified (CMS/HCC) Social History Tobacco [...] Associated Diagnosis Comments COMPLETE BLOOD COUNT Routine 08/17/2024 9:34 AM EST Heart failure, unspecified (CMS/HCC) COMPREHENSIVE METABOLIC PANEL Routine 08/17/2024 9:34 AM EST Heart failure, unspecified (CMS/HCC) documented in this encounter Results * (ABNORMAL) Comprehensive metabolic panel (08/17/2024 9:34 AM EST) Sodium 139 133 - 145 mmol/L LAB CHEMISTRY METHOD 08/17/2024 2:03 PM EST [facility] Potassium 3.7 3.5 - 5.5 mmol/L LAB CHEMISTRY METHOD 08/17/2024 2:03 PM [facility] Chloride 102 96 - 110 mmol/L LAB CHEMISTRY METHOD 08/17/2024 2:03 PM [facility] CO2 30 21 - 32 mmol/L LAB CHEMISTRY METHOD 08/17/2024 2:03 PM [facility] Anion Gap 7 3 - 11 LAB CHEMISTRY METHOD 08/17/2024 2:03 PM [facility] Glucose 157(H) 70 - 100 mg/dL LAB CHEMISTRY METHOD 08/17/2024 2:03 PM [facility] BUN 13 5 - 25 mg/dL LAB CHEMISTRY METHOD 08/17/2024 2:03 PM [facility] Creatinine 0.65 0.50 - 1.10 mg/dL LAB CHEMISTRY METHOD 08/17/2024 2:03 PM [facility] eGFR 94 >=60 mL/min/1. 73m2 LAB CHEMISTRY METHOD 08/17/2024 2:03 PM [facility] Comment:Calculation based on the??Chronic Kidney Disease Epidemiology Collaboration (CKD-EPI) equation refit??without adjustment for race. BUN/Creatinine Ratio 20.0 LAB CHEMISTRY METHOD 08/17/2024 2:03 PM [facility] Calcium 9.8 8.5 - 10.5 mg/dL LAB CHEMISTRY METHOD 08/17/2024 2:03 PM [facility] AST (SGOT) 23 10 - 42 unit/L LAB CHEMISTRY METHOD 08/17/2024 2:03 PM [facility] ALT (SGPT) 70(H) 10 - 60 unit/L LAB CHEMISTRY METHOD 08/17/2024 2:03 PM [facility] Alkaline Phosphatase 177(H) 42 - 121 unit/L LAB CHEMISTRY METHOD 08/17/2024 2:03 PM [facility] Total Protein 6.0 6.0 - 8.0 g/dL LAB CHEMISTRY METHOD 08/17/2024 2:03 PM [facility] Albumin 2.9(L) 3.2 - 5.0 g/dL LAB CHEMISTRY METHOD 08/17/2024 2:03 PM [facility] Total Bilirubin 0.2 0.0 - 1.4 mg/dL LAB CHEMISTRY METHOD 08/17/2024 2:03 PM [facility] Blood Venous blood specimen / Unknown Venipuncture / Unknown 08/17/2024 9:34 AM EST 08/17/2024 11:30 AM EST us Carmela Thomas MD LAB BLOOD ORDERABLES Fin al Result [facility] [address] [place] [address], * (ABNORMAL) Complete blood count (08/17/2024 9:34 AM EST) WBC 13.9(H) 4.8 - 10.8 K/mcL LAB HEMETOLOGY METHOD 08/17/2024 1:30 PM [facility] RBC 3.10(L) 3.80 - 4.80 M/mcL LAB HEMETOLOGY METHOD 08/17/2024 1:30 PM [facility] Hemoglobin 9.4(L) 11.5 - 16.0 g/dL LAB HEMETOLOGY METHOD 08/17/2024 1:30 PM [facility] Hematocrit 30.2(L) 35.0 - 47.0 % LAB HEMETOLOGY METHOD 08/17/2024 1:30 PM [facility] MCV 97.7 79.0 - 98.0 FL LAB HEMETOLOGY METHOD 08/17/2024 1:30 PM [facility] MCH 30.4 27.0 - 32.0 pcg LAB HEMETOLOGY METHOD 08/17/2024 1:30 PM EST [facility] MCHC 31.1(L) 32.0 - 37.0 g/dL LAB HEMETOLOGY METHOD 08/17/2024 1:30 PM [facility] RDW 14.0 11.0 - 15.0 % LAB HEMETOLOGY METHOD 08/17/2024 1:30 PM [facility] Platelets 427(H) 130 - 400 K/mcL LAB HEMETOLOGY METHOD 08/17/2024 1:30 PM EST [facility] MPV 10.3 7.0 - 11.0 FL LAB HEMETOLOGY METHOD 08/17/2024 1:30 PM [facility] NRBC 0.0 <1.0 % LAB HEMETOLOGY METHOD 08/17/2024 1:30 PM [facility] NRBC Absolute 0.00 <0.10 K/mcL LAB HEMETOLOGY METHOD 08/17/2024 1:30 PM [facility] Blood Venous blood specimen / Unknown Venipuncture / Unknown 08/17/2024 9:34 AM EST 08/17/2024 11:30 AM EST us Carmela Thomas MD LAB BLOOD ORDERABLES Fin al Result [facility] [address] [place] [address], documented in this encounter Visit Diagnoses Diagnosis Heart failure, unspecified (CMS/HCC) Heart failure, unspecified documented in this encounter Care Teams Parts Puller Relationship Specialty Start Date End Date Sushil Stewart MD [address] [place] [address] [address] [place], [place] PCP - General Internal Medicine 10/14/17 documented as of this encounter
--- OUTSIDE RECORDS SUMMARY | 2024-08-20 19:49 | XMS_ITS ---
Author Organization [facility] Address [address] [place] [address] Care Team Providers Care Chemical Etching Processor Name Role Phone Terry TERRY, Sushil Primary Care Provider Unavail Epifanio Marin Unavailable [phone] Waddell Encounters Encounter Location Date Provider Diagnosis [address] [address] 06/12/2024 Epifanio Palacios Plan Of Treatment Next Appt Details Provider Name:Epifanio Palacios , 10/30/2024 01:15:00 PM, [address] [place] [address], [phone], Progress Notes * Isabela AMNZO MDOB: [birth year] (73 yo F)Acc No.[id number]:06/12/2024 Progress Note Patient:?Isabela MANZO Provider:?Epifanio Palacios DPM :1950???Age:73 Y???Sex:Female D ate:06/12/2024 Address:[address] [place] [address] Pcp:Sushil Stewart MD Subjective: * Chief Complaints: * ???1. Dr Waddell. * Medical History:? Objective: * Vitals:? Assessment: Plan: * Treatment: * Images: * The named appointment provid er may or may not be the originator of this progress note, and it is not deemed complete until electronically signed by the appointment provider. Sign off status: Pending * Provider:Aidan Palacios DPM Date:?2023 Generated for Nadeem candelario/Tanvir/Carmen on:?08/20/2024 07:49 PM EST
--- OUTSIDE RECORDS SUMMARY | 2024-08-20 19:49 | XMS_ITS | Encounter Summary ---
Author Organization [facility] Address [address] [place] [address] Care Team Providers Care Scientist Immunology Name Role Phone Sushil Stewart MD Primary Care Provider Encounter Details Date Type Department Care Team (Late st Contact Info) Description 08/08/2024 Lab Requisition [facility] - Main Lab [address] [place] [address] Carmela Thomas MD [address] [id number] Heart failure, unspecified (CMS/HCC) Social History Tobacco [...] Associated Diagnosis Comments COMPLETE BLOOD COUNT Routine 08/10/2024 8:28 AM EST Heart failure, unspecified (CMS/HCC) COMPREHENSIVE METABOLIC PANEL Routine 08/10/2024 8:28 AM EST Heart failure, unspecified (CMS/HCC) documented in this encounter Results * (ABNORMAL) Comprehensive metabolic panel (08/10/2024 8:28 AM EST) Sodium 144 133 - 145 mmol/L LAB CHEMISTRY METHOD 08/10/2024 12:42 PM EST [facility]) [facility] Potassium 3.3(L) 3.5 - 5.5 mmol/L LAB CHEMISTRY METHOD 08/10/2024 12:[address] [facility] Chloride 106 96 - 110 mmol/L LAB CHEMISTRY METHOD 08/10/2024 12:[address] [facility] CO2 29 21 - 32 mmol/L LAB CHEMISTRY METHOD 08/10/2024 12:[address] [facility] Anion Gap 9 3 - 11 LAB CHEMISTRY METHOD 08/10/2024 12:[address] [facility] Glucose 94 70 - 100 mg/dL LAB CHEMISTRY METHOD 08/10/2024 12:[address] [facility] BUN 18 5 - 25 mg/dL LAB CHEMISTRY METHOD 08/10/2024 12:[address] [facility] Creatinine 0.62 0.50 - 1.10 mg/dL LAB CHEMISTRY METHOD 08/10/2024 12:[address] [facility] eGFR 95 >=60 mL/min/1. 73m2 LAB CHEMISTRY METHOD 08/10/2024 12:[address] [facility] Comment:Calculation based on the??Chronic Kidney Disease Epidemiology Collaboration (CKD-EPI) equation refit??without adjustment for race. BUN/Creatinine Ratio 29.0 LAB CHEMISTRY METHOD 08/10/2024 12:[address] [facility] Calcium 9.2 8.5 - 10.5 mg/dL LAB CHEMISTRY METHOD 08/10/2024 12:[address] [facility] AST (SGOT) 38 10 - 42 unit/L LAB CHEMISTRY METHOD 08/10/2024 12:[address] [facility] ALT (SGPT) 68(H) 10 - 60 unit/L LAB CHEMISTRY METHOD 08/10/2024 12:[address] [facility] Alkaline Phosphatase 145(H) 42 - 121 unit/L LAB CHEMISTRY METHOD 08/10/2024 12:[address] [facility] Total Protein 5.8(L) 6.0 - 8.0 g/dL LAB CHEMISTRY METHOD 08/10/2024 12:[address] [facility] Albumin 2.7(L) 3.2 - 5.0 g/dL LAB CHEMISTRY METHOD 08/10/2024 12:[address] [facility] Total Bilirubin 0.3 0.0 - 1.4 mg/dL LAB CHEMISTRY METHOD 08/10/2024 12:42 PM EST [facility] Blood Venous blood specimen / Unknown Venipuncture / Unknown 08/10/2024 8:28 AM EST 08/10/2024 11:20 AM EST us Carmela Thomas MD LAB BLOOD ORDERABLES Fin al Result [facility] [address] [place] [address], * (ABNORMAL) Complete blood count (08/10/2024 8:28 AM EST) WBC 10.7 4.8 - 10.8 K/mcL LAB HEMETOLOGY METHOD 08/10/2024 1:[address] [facility] RBC 3.10(L) 3.80 - 4.80 M/mcL LAB HEMETOLOGY METHOD 08/10/2024 1:[address] [facility] Hemoglobin 9.3(L) 11.5 - 16.0 g/dL LAB HEMETOLOGY METHOD 08/10/2024 1:[address] [facility] Hematocrit 29.3(L) 35.0 - 47.0 % LAB HEMETOLOGY METHOD 08/10/2024 1:[address] [facility] MCV 95.8 79.0 - 98.0 FL LAB HEMETOLOGY METHOD 08/10/2024 1:[address] [facility] MCH 30.4 27.0 - 32.0 pcg LAB HEMETOLOGY METHOD 08/10/2024 1:20 PM EST [facility] MCHC 31.7(L) 32.0 - 37.0 g/dL LAB HEMETOLOGY METHOD 08/10/2024 1:20 PM EST [facility] RDW 14.2 11.0 - 15.0 % LAB HEMETOLOGY METHOD 08/10/2024 1:20 PM EST [facility] Platelets 280 130 - 400 K/mcL LAB HEMETOLOGY METHOD 08/10/2024 1:20 PM EST [facility] MPV 10.2 7.0 - 11.0 FL LAB HEMETOLOGY METHOD 08/10/2024 1:20 PM EST [facility] NRBC 0.0 <1.0 % LAB HEMETOLOGY METHOD 08/10/2024 1:[address] [facility] NRBC Absolute 0.00 <0.10 K/mcL LAB HEMETOLOGY METHOD 08/10/2024 1:[address] [facility] Blood Venous blood specimen / Unknown Venipuncture / Unknown 08/10/2024 8:28 AM EST 08/10/2024 11:21 AM EST us Carmela Thomas MD LAB BLOOD ORDERABLES Fin al Result [facility] [address] [place] [address], documented in this encounter Visit Diagnoses Diagnosis Heart failure, unspecified (CMS/HCC) Heart failure, unspecified documented in this encounter Care Teams Scientist Immunology Relationship Specialty Start Date End Date Sushil Stewart MD [address] [place] [address] [address] [place], [place] PCP - General Internal Medicine 10/14/17 documented as of this encounter
[2024-08-20 20:17] VITALS: BP 150/78; PULSE 89; RESP 16; TEMP 37.1; O2SAT 99
--- NOTE | 2024-08-20 20:52 | PC.NURSE ---
Plan of care update- family report pt has been confused since fall in July however she has become increasingly more confused. Plan for lab redraw in the morning and aaron psych eval
[2024-08-20] MEDS: Cyclobenzaprine HCl 5 MG TABLET PO (21:03)
--- NOTE | 2024-08-20 21:41 | PC.NURSE ---
pt attempting to get out bed, disoriented, unsteady on feet and reporting dizziness. PT linen and gown changed due water spill. bed alarm placed on pt. plan of care ongoing
[2024-08-20 22:30] VITALS: BP 169/71; PULSE 87; RESP 16; TEMP 37.3; O2SAT 100
[2024-08-21] VITALS (14 sets, daily range): BP systolic 124–177; BP diastolic 63–96; PULSE 88–111; RESP 14–96; TEMP 36.3–36.8; O2SAT 96–100
--- NOTE | 2024-08-21 00:09 | PC.NURSE ---
PT disoriented, and hallucinating. Asking for her mother and attempting to get out of bed despite being dizzy ad unsteady on her feet. Provider notified, medications administered as per MAR. plan of care ongoing
[2024-08-21] MEDS: QUEtiapine Fumarate 25 MG TABLET PO (00:30)
--- NOTE | 2024-08-21 00:37 | MHC.EDTECH ---
This pct assumed care of Patient at 2300 ,vitals taken ,Patient was incontinent of urine ,care given ,bedding and gown change ,yellow socks on and other safety measure in Place warm blanket given and Patient belongings list done ,Patient very confused and restless ,Plan of care continue .
--- NOTE | 2024-08-21 01:20 | PC.NURSE ---
Pt continuing to attempt to get out of bed and is hallucinating, shouting in room. Having difficulty sleeping. Provider notified, awaiting new orders.
[2024-08-21] MEDS: OLANZapine ODT 10 MG TAB.RAPDIS TRANSLINGU (01:34)
[2024-08-21] MEDS: Acetaminophen 325 MG TABLET PO (01:34)
--- NOTE | 2024-08-21 02:13 | MHC.EDTECH ---
0200 rounding and vitals done ,Patient very restless ,attempting to trow her self over the bed rails ,alarm was attached to gowfelicia ,ANUSHA Latham and java j2ee application developerANUSHA medina .
[2024-08-21] MEDS: Ziprasidone Mesylate 20 MG VIAL IM (02:45)
--- NOTE | 2024-08-21 02:53 | PC.NURSE ---
Pt continues to be disoriented, attempting to get out of bed and not responding to redirection. Pt hallucinating and yelling for a Cheo , seeing things and people that are not there. IM geodon administered in left vastus lateralis. Pt not requiring to be held- tolerated well. Pt remains on playground monitor, VSS, Sitter at bedside. Plan of care ongoing
--- NOTE | 2024-08-21 05:22 | MHC.EDTECH ---
Patient continue to be restless and combative ,pulling out iv ,rn aware ,Patient was incontinent of urine ,bedding change ,vitals taken .
[2024-08-21 05:23] LABS: Basophils Percent Auto 0.2 % (0-2); Eosinophils Absolute Auto 0.1 X10*3/uL (0.0-0.4); Eosinophils Percent Auto 0.6 % (0-4); Hematocrit 29.8 % (37.0-47.0); Hemoglobin 9.9 g/dl (12.0-16.0); Imm Gran Abs Auto 0.05 X10*3/uL (0.00-0.03); Imm Gran Pct Auto 0.4 % (0.0-0.4); Lymphocytes Percent Auto 14.3 % (20-40); MANUAL DIFF FLAG NO; Mean Corpuscular HGB Conc 33.2 g/dl (31.0-35.0); Mean Corpuscular Volume 90.3 fL (80.0-98.0); Mean Platelet Volume 9.2 fL (9.4-12.3); Monocytes Absolute Auto 0.9 X10*3/uL (0.1-1.2); Monocytes Percent Auto 6.3 % (2-11); Neutrophils Absolute Auto 11.1 x10*3/uL (2.0-8.3); Neutrophils Percent Auto 78.2 % (45-73); Platelet Count 444 X10*3/uL (160-400); Red Cell Distribution Width 13.6 % (11.0-16.0); White Blood Count 14.2 X10*3/uL (4.8-10.8)
[2024-08-21] MEDS: Cyclobenzaprine HCl 10 MG TABLET PO (06:15)
[2024-08-21] MEDS: Omeprazole 20 MG CAPSULE.DR PO (06:16)
--- NOTE | 2024-08-21 08:36 | PHA.MEDREC ---
Pharmacy Consult ? Medication Reconciliation Pharmacy has completed the medication reconciliation, utilized list from [facility] and [facility].
--- NOTE | 2024-08-21 10:28 | MHC.CARE ---
Assessed by the CARE team and disposition is pending psych consult. Psychiatry notified
[2024-08-21] MEDS: Nystatin Oral Susp 500,000 UNIT/5 ML ORAL.SUSP 400000 UNIT PO ×4 (10:50→21:22)
[2024-08-21] MEDS: Aspirin 325 MG TABLET PO ×2 (10:51→21:15)
[2024-08-21] MEDS: busPIRone HCl 10 MG TABLET PO ×2 (10:51→21:22)
[2024-08-21] MEDS: Nicotine 7 MG PATCH.TD24 TRANSDERMA (10:52)
[2024-08-21] MEDS: Cholecalciferol (Vitamin D3) 25 MCG TABLET 50 MCG PO (10:52)
[2024-08-21] MEDS: Clopidogrel Bisulfate 75 MG TABLET PO (10:52)
[2024-08-21] MEDS: amLODIPine Besylate 10 MG TABLET PO (10:53)
[2024-08-21] MEDS: Metoprolol Tartrate 25 MG TABLET PO ×2 (10:53→21:15)
[2024-08-21] MEDS: Sertraline HCL 50 MG TABLET PO (10:54)
--- NOTE | 2024-08-21 12:06 | MHC.CM.ED ---
Received case management consult from Sunni MCGOVERN. Patient came to the ER due to hallucinations. Patient was d/c'd to [facility] for STR from [facility] on 07/24/24. Medical work up appears to be negative. Psych consult pending. Met with patient's granddaughter, Johanna in regards to discharge planning. Prior to going to [facility], patient was living home with her and active with [employer] for oxygen. Sunni MCGOVERN and Johanna feel hallucinations are not psych related and are related to cognition. If psych consult agrees with this, family would prefer patient to be d/c'd home with services. Patient will not qualify for [facility] per Johanna. Patient has been active with [facility] in the past. Referral made in [facility] for group home and physical therapy. Referral made to [facility] to reach out to Johanna to see if there are any services patient would qualify for. Johanna will speak with her children and work on arranging overnight help for patient. Anticipate patient will be able to safely return home on Saturday. Johanna feels she will be able to tranpsort patient home. Anticipate patient will remain in ER until Saturday. Continue to monitor for d/c needs.
--- NOTE | 2024-08-21 15:19 | P.CNPS_ITS ---
History of Present Illness Date of Service: 08/21/2024 Chief Complaint: HALLUCINATIONS HPI Narrative: Mrs. Leslie is a 73 year-old woman who recently had hip surgery on 07/12/2024 after hip fracture here at [facility] and was sent to [facility] from the hospital. She has been presenting as more confused, disorganized behavior, some paranoid ideas which is not her usual. 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 Pertinent labs in the ED include: cbc which shows chronic leukocytosis (not currently on steroids, unclear etiology), elevated Plt count 444, chronic normocytic anemia, CMP without electrolyte abnormalities, BUN 10, Cr 0.66, creatinine clearance 58.1, AST 26, ALT slightly elevated 49, Alk phos 191, ammonia 20, UA does not show signs of UTI. Head CT on 08/21 without acute findings. Pt is known to psychiatry and this ticket writer through previous assessment of hallucination while admitted medically to the unit in the setting of delirium back in 07/10/2024. at the time she had presented much improved with no overt signs of delirium. was seen in the ED. She presents as disoriented to place, situation, month. Her speech is with derailment and disorganized and at times is difficult to follow. She tells this ticket writer she needs a stand. The reports staff sitting outside of her room, he will help you with that. When attempting to clarify what Mrs. Leslie is referring to, she talks about something else but non of her short sentences connected make any sense. Collateral from granddaughter, Ayla, reports since she has been at [facility], pt has presented as increasingly more confused, talking about some paranoid ideas, not oriented to situation or what is going on. Although Ayla notes a fluctuating pattern of brief periods of time when she may seem as more lucid, but then again becomes confused. Past Psychiatric History: Denies history of inpatient psychiatric hospitalization. Obtain psychiatric medications from her PCP. [facility] Medical History MDD (major depressive disorder), recurrent episode Essential hypertension Leukocytosis History of CAD (coronary artery disease) Peripheral vascular disease Chronic back pain GERD (gastroesophageal reflux disease) High cholesterol HTN (hypertension) Immune disorder COPD (chronic obstructive pulmonary disease) Multiple sclerosis Surgical History History of angioplasty History of heart artery stent Family History: depression Social History: lives with , 2 children who are . retired from [employer]. Trauma History: yes Diagnostics Vital Signs (24Hr): Vital Signs - 24 hr 08/20/24 17:57 08/20/24 19:34 08/20/24 20:17 Temperature 99.2 F 97.7 F 98.7 F Pulse Rate 92 91 89 Respiratory Rate 18 11 L 16 Blood Pressure 151/72 H 144/75 H 150/78 H Pulse Oximetry 97 95 99 Oxygen Delivery Method Room Air Nasal Cannula Room Air Oxygen Flow Rate 2 08/20/24 22:30 08/21/24 00:22 08/21/24 02:12 Temperature 99.1 F 97.4 F 98.3 F Pulse Rate 87 88 99 Respiratory Rate 16 20 96 H Blood Pressure 169/71 H 142/75 H 143/81 H Pulse Oximetry 100 100 96 Oxygen Delivery Method Nasal Cannula Nasal Cannula Nasal Cannula Oxygen Flow Rate 4 2 2 08/21/24 03:48 08/21/24 05:22 08/21/24 08:29 Temperature 98.2 F 97.6 F Pulse Rate 111 H 99 94 Respiratory Rate 21 H 16 20 Blood Pressure 162/86 H 171/74 H 124/63 Pulse Oximetry 96 96 96 Oxygen Delivery Method Nasal Cannula Nasal Cannula Nasal Cannula Oxygen Flow Rate 2 1 2 08/21/24 08:56 08/21/24 10:28 08/21/24 10:53 Temperature 97.9 F Pulse Rate 108 H Respiratory Rate Blood Pressure 177/72 H 176/83 H Pulse Oximetry Oxygen Delivery Method Oxygen Flow Rate 08/21/24 11:10 08/21/24 13:59 Temperature 97.9 F 97.9 F Pulse Rate 110 H 89 Respiratory Rate 18 14 Blood Pressure 157/96 H 146/79 H Pulse Oximetry 99 99 Oxygen Delivery Method Nasal Cannula Nasal Cannula Oxygen Flow Rate 2 2 BMI result Body Mass Index 22.0 Labs 08/21/24 05:19 08/20/24 18:00 Labs: Laboratory Results - last 48 hr 08/20/24 08/20/24 08/20/24 18:00 18:01 18:18 WBC 12.5 H RBC 2.91 L Hgb 9.0 L Hct 27.1 L MCV 93.1 MCH 30.9 MCHC 33.2 RDW 13.8 Plt Count 451 H MPV 9.5 Immature Gran % (Auto) 0.5 H Neut % (Auto) 76.9 H Lymph % (Auto) 14.9 L [place] % (Auto) 6.9 Eos % (Auto) 0.6 Baso % (Auto) 0.2 Lymph # (Auto) 1.9 [place] # (Auto) 0.9 Eos # (Auto) 0.1 Baso # (Auto) 0.0 Abs Immat Gran (auto) 0.06 H Absolute Neuts (auto) 9.7 H Absolute Nucleated RBC 0.000 Nucleated RBC % (auto) 0.0 VBG pH VBG pCO2 VBG pO2 VBG HCO3 VBG O2 Saturation VBG Base Excess Sodium 144 Potassium 3.1 L Chloride 105 Carbon Dioxide 30 H Anion Gap 12 BUN 10 Creatinine 0.66 Estim Creat Clear Calc 58.1 Estimated GFR > 60 Random Glucose 103 Calcium 9.2 Magnesium 1.7 Total Bilirubin 0.2 Direct Bilirubin < 0.2 AST 26 ALT 49 H Alkaline Phosphatase 191 H Ammonia 20 Troponin I High Sens 4.6 D B-Natriuretic Peptide 160 H Total Protein 6.4 L Albumin 3.6 TSH 0.74 Urine Color Yellow Urine Appearance Clear Urine pH 7.0 Ur Specific [place] 1.010 Urine Protein Trace Urine Glucose (UA) Negative Urine Ketones Negative Urine Blood Negative Urine Nitrite Negative Ur Leukocyte Esterase Negative 08/20/24 08/21/24 18:32 05:19 WBC 14.2 H RBC 3.30 L Hgb 9.9 L Hct 29.8 L MCV 90.3 MCH 30.0 MCHC 33.2 RDW 13.6 Plt Count 444 H MPV 9.2 L Immature Gran % (Auto) 0.4 Neut % (Auto) 78.2 H Lymph % (Auto) 14.3 L [place] % (Auto) 6.3 Eos % (Auto) 0.6 Baso % (Auto) 0.2 Lymph # (Auto) 2.0 [place] # (Auto) 0.9 Eos # (Auto) 0.1 Baso # (Auto) 0.0 Abs Immat Gran (auto) 0.05 H Absolute Neuts (auto) 11.1 H Absolute Nucleated RBC 0.000 Nucleated RBC % (auto) 0.0 VBG pH 7.56 H VBG pCO2 44 VBG pO2 28 VBG HCO3 39 H VBG O2 Saturation 39.0 VBG Base Excess 15.6 Sodium Potassium Chloride Carbon Dioxide Anion Gap BUN Creatinine Estim Creat Clear Calc Estimated GFR Random Glucose Calcium Magnesium Total Bilirubin Direct Bilirubin AST ALT Alkaline Phosphatase Ammonia Troponin I High Sens B-Natriuretic Peptide Total Protein Albumin TSH Urine Color Urine Appearance Urine pH Ur Specific [place] Urine Protein Urine Glucose (UA) Urine Ketones Urine Blood Urine Nitrite Ur Leukocyte Esterase Mental Status Exam Mental Status Exam Narrative: Appearance: wearing hospital gown, good hygiene, in NAD behavior: distracted, at times guarded Psychomotor: no agitation or retardation noted Speech: mostly clear, regular rate/rhythm/volume, spontaneous TP: disorganized, with derailment, no significant content communicated TC: random ideas of where she is, saying here in the hospital to socialize Mood: okay Affect: distractable SI: none HI: none VH/AH: internally preoccupied Delusions: no overt delusinal but impaired reality testing. Insight/judgment: impaired x 2 Memory/cog: alert, not oriented to place, month, year, situation, report of fluctuating mentation. Medications Medications Current Medications Acetaminophen (Acetaminophen 325 Mg Tablet) 650 mg PO Q6H PRN PRN Reason: pain or fever greater than 100.0f Acetaminophen (Acetaminophen 325 Mg Tablet) 325 mg PO Q4H PRN PRN Reason: Pain, Moderate(Pain Scale 4-6) Last Admin: 08/21/24 01:34 Dose: 325 mg Acetaminophen/Butalbital/Caffeine (Butalb/Acetamin/Caff 50/325/40 Tablet) 1 tab PO DAILY PRN PRN Reason: Headache Albuterol/Ipratropium (Albuterol/Iprat 2.5/0.5mg 3 Ml Ampul.Neb) 3 ml INHALE QID PRN PRN Reason: wheezing Amlodipine Besylate (Amlodipine Besylate 10 Mg Tablet) 10 mg PO DAILY RAJNI; Protocol Last Admin: 08/21/24 10:53 Dose: 10 mg Aspirin (Aspirin 325 Mg Tablet) 325 mg PO BID [facility] Last Admin: 08/21/24 10:51 Dose: 325 mg Atorvastatin Calcium (Atorvastatin Calcium 80 Mg Tablet) 80 mg PO BEDTIME [facility] Bisacodyl (Bisacodyl 10 Mg Supp.Rect) 10 mg ME DAILY PRN PRN Reason: step 2 if no BM 8 hours after MOM Buspirone HCl (Buspirone Hcl 10 Mg Tablet) 10 mg PO BID [facility] Last Admin: 08/21/24 10:51 Dose: 10 mg Clopidogrel Bisulfate (Clopidogrel Bisulfate 75 Mg Tablet) 75 mg PO DAILY [facility] Last Admin: 08/21/24 10:52 Dose: 75 mg Cyclobenzaprine HCl (Cyclobenzaprine Hcl 10 Mg Tablet) 10 mg PO DAILY PRN PRN Reason: muscle spasms Last Admin: 08/21/24 06:15 Dose: 10 mg Fluticasone Propionate (Fluticasone Propionate Nasal 16 Gm [place]) 1 spray NOSTRIL-B BID PRN PRN Reason: allergies Fluticasone/Umeclidinium/Vilanterol (Fluticasone/Umeclidinium/Vilanterol 100/62.5/25 Blst.W.Dev) 1 puff INHALE DAILY [facility] Last Admin: 08/21/24 09:28 Dose: Not Given Levalbuterol HCl (Levalbuterol Hcl 1.25 Mg/3 Ml Vial.Neb) 1.25 mg INHALE TID PRN PRN Reason: Shortness Of Breath Or Wheezing Losartan Potassium (Losartan Potassium 50 Mg Tablet) 50 mg PO BEDTIME [facility]; Protocol Magnesium Hydroxide (Milk Of Magnesia 30 Ml Oral.Susp) 30 ml PO DAILY PRN PRN Reason: No Bm for three days Metoprolol Tartrate (Metoprolol Tartrate 25 Mg Tablet) 25 mg PO BID [facility]; Protocol Last Admin: 08/21/24 10:53 Dose: 25 mg Nicotine (Nicotine 7 Mg Patch.Td24) 7 mg TRANSDERMA DAILY [facility] Last Admin: 08/21/24 10:52 Dose: 7 mg Non-Formulary Medication (Bupropion Hcl) 150 mg PO DAILY [facility] Nystatin (Nystatin Oral Susp 500,000 Unit/5 Ml Oral.Susp) 400,000 unit PO QID [facility]; Protocol Last Admin: 08/21/24 14:52 Dose: 400,000 unit Omeprazole (Omeprazole 20 Mg Capsule.Dr) 20 mg PO DAILY@0630 [facility] Last Admin: 08/21/24 06:16 Dose: 20 mg Ondansetron HCl (Ondansetron Odt 4 Mg Tab.Rapdis) 4 mg TRANSLINGU Q8H PRN PRN Reason: Nausea and Vomiting Oxycodone HCl (Oxycodone Hcl Immed Release 5 Mg Tablet) 10 mg PO Q4H PRN PRN Reason: Pain (Scale Score 4-6) Roflumilast (Roflumilast 500 Mcg Tablet) 500 mcg PO DAILY [facility] Last Admin: 08/21/24 14:27 Dose: Not Given Sertraline HCl (Sertraline Hcl 50 Mg Tablet) 50 mg PO DAILY [facility] Last Admin: 08/21/24 10:54 Dose: 50 mg Sodium Biphosphate/Sodium Phosphate (Sodium Phosphate,Appling-Dibasic 133 Ml Enema) 133 ml ME DAILY PRN PRN Reason: step 3-no BM after 8h after Bi Vitamin D (Cholecalciferol (Vitamin D3) 25 Mcg Tablet) 50 mcg PO DAILY [facility] Last Admin: 08/21/24 10:52 Dose: 50 mcg Allergies Allergies Allergy/AdvReac Type Severity Reaction Status Date / Time codeine [CODEINE] Allergy Unknown Hives Verified 08/20/24 17:59 Assessment & Plan Assessment & Plan (1) Encephalopathy: Status: Acute Code(s): G93.40 - Encephalopathy, unspecified Plan Mrs. Leslie is a 73 year-old woman who recently was medically admitted after a fall and sustain fracture, underwent hip surgery 07/12/2024, was discharged on 07/24/2024 to [facility], per granddaughter patient has been presenting as increasingly more confused, somewhat paranoid at times. Pt presents with s/s of delirium with poor attention, fluctuating levels of orientation. She was seen by this ticket writer prior to surgery due to patient presenting with visual hallucinations that at the time she was seen the following day, they had cleared on 07/10/2024. At the time, thought was morphine and again she had cleared and was then fully oriented. Her presentation now, regardless of whether there is an underlying neurocognitive disorder, is consistent with delirium of unclear etiology as medical work up unremarkable for acute findings. She does have a hx of MS, MRI may be able to show if any exacerbation of MS may be culprit. Discussed with Ayla dudley, for now will observe patient. Total time managing care of this patient today ____ minutes.
[2024-08-21] MEDS: Losartan Potassium 50 MG TABLET PO (21:16)
[2024-08-21] MEDS: Atorvastatin Calcium 80 MG TABLET PO (21:17)
[2024-08-22] VITALS (11 sets, daily range): BP systolic 124–164; BP diastolic 61–77; PULSE 68–98; RESP 16–23; TEMP 36.3–36.8; O2SAT 96–100
[2024-08-22] MEDS: Omeprazole 20 MG CAPSULE.DR PO (06:41)
[2024-08-22] MEDS: Fluticasone/Umeclidinium/Vilanterol 100/62.5/25 BLST.W.DEV 1 PUFF INHALE (07:53)
[2024-08-22] MEDS: Clopidogrel Bisulfate 75 MG TABLET PO (08:32)
[2024-08-22] MEDS: buPROPion HCl XL 300 MG TAB.ER.24H PO (08:32)
[2024-08-22] MEDS: Aspirin 325 MG TABLET PO ×2 (08:32→20:57)
[2024-08-22] MEDS: Cholecalciferol (Vitamin D3) 25 MCG TABLET 50 MCG PO (08:32)
[2024-08-22] MEDS: busPIRone HCl 10 MG TABLET PO ×2 (08:32→20:57)
[2024-08-22] MEDS: Sertraline HCL 50 MG TABLET PO (08:32)
[2024-08-22] MEDS: Metoprolol Tartrate 25 MG TABLET PO ×2 (08:33→20:33)
[2024-08-22] MEDS: Nicotine 7 MG PATCH.TD24 TRANSDERMA (08:37)
[2024-08-22] MEDS: Nystatin Oral Susp 500,000 UNIT/5 ML ORAL.SUSP 400000 UNIT PO ×4 (08:40→20:33)
[2024-08-22] MEDS: amLODIPine Besylate 10 MG TABLET PO (08:40)
[2024-08-22] MEDS: Roflumilast 500 MCG TABLET PO (10:04)
--- NOTE | 2024-08-22 10:18 | PC.NURSE ---
Pt alert and confused, breathing even and unlabored. Took pills well one at a time with pudding. Calm and cooperative. Plan of care ongoing
[2024-08-22] MEDS: Acetaminophen 325 MG TABLET 650 MG PO (16:54)
[2024-08-22] MEDS: oxyCODONE HCl Immed Release 5 MG TABLET 10 MG PO (16:54)
--- NOTE | 2024-08-22 18:10 | PM.PSYCN ---
History of Present Illness Date of Service: 08/22/2024 Chief Complaint: HALLUCINATIONS Discussed with referring provider: Yes Sources of Information: patient interviewed, chart reviewed and crisis/core team assessment reviewed HPI Narrative: Interim Hx: pt seen in bed. She minimally talking, whispering at times and talking to someone who is not there. She is not able to tell where she is. Continues to present as disorganized in thinking, psychomotor less agitation. Past Psychiatric History: Denies history of inpatient psychiatric hospitalization. Obtain psychiatric medications from her PCP. Review of Systems Review of Systems Constitutional : No Fever, No Chills, No Fatigue ENT/Mouth : No sore throat, No Rhinorrhea Eyes: No Eye Pain, No Swelling, No Redness Cardiovascular : No Chest Pain, No SOB, No Dyspnea on Exertion Respiratory : No Cough, No Sputum Gastrointestinal : No Nausea, No Vomiting, No Diarrhea, No abdominal Pain Genitourinary : No Dysuria, No Urinary Frequency, No Hematuria, Musculoskeletal : No joint pain, No Myalgias, No Joint Swelling Skin : No Skin Lesions, No rash Neuro : No Weakness, No Numbness, No Dizziness, no Headache All other systems reviewed and are negative [facility] Medical History MDD (major depressive disorder), recurrent episode Essential hypertension Leukocytosis History of CAD (coronary artery disease) Peripheral vascular disease Chronic back pain GERD (gastroesophageal reflux disease) High cholesterol HTN (hypertension) Immune disorder COPD (chronic obstructive pulmonary disease) Multiple sclerosis Surgical History History of angioplasty History of heart artery stent Family History: depression Social History: lives with , 2 children who are . retired from [employer]. Trauma History: yes Diagnostics Vital Signs (24Hr): Vital Signs - 24 hr 08/21/24 21:15 08/21/24 21:16 08/21/24 21:19 Temperature 98.3 F Pulse Rate 96 92 Respiratory Rate 20 Blood Pressure 161/79 H 161/79 H 161/79 H Pulse Oximetry 97 Oxygen Delivery Method Nasal Cannula Oxygen Flow Rate 2 08/22/24 03:59 08/22/24 06:33 08/22/24 07:53 Temperature 98.2 F Pulse Rate 87 80 68 Respiratory Rate 16 16 18 Blood Pressure 160/73 H 164/76 H Pulse Oximetry 98 98 Oxygen Delivery Method Room Air Nasal Cannula Oxygen Flow Rate 2 08/22/24 08:28 08/22/24 08:31 08/22/24 08:33 Temperature 97.7 F Pulse Rate 85 98 Respiratory Rate 23 H Blood Pressure 160/77 H 160/77 H 160/77 H Pulse Oximetry 99 Oxygen Delivery Method Nasal Cannula Oxygen Flow Rate 2 08/22/24 08:40 08/22/24 15:24 08/22/24 16:06 Temperature 98 F 97.7 F Pulse Rate 86 83 Respiratory Rate 20 20 Blood Pressure 160/77 H 130/64 135/62 Pulse Oximetry 100 100 Oxygen Delivery Method Nasal Cannula Nasal Cannula Oxygen Flow Rate 2 2 BMI result Body Mass Index 22.0 Labs 08/21/24 05:19 08/20/24 18:00 Labs: Laboratory Results - last 48 hr 08/20/24 08/20/24 08/20/24 18:00 18:01 18:18 WBC 12.5 H RBC 2.91 L Hgb 9.0 L Hct 27.1 L MCV 93.1 MCH 30.9 MCHC 33.2 RDW 13.8 Plt Count 451 H MPV 9.5 Immature Gran % (Auto) 0.5 H Neut % (Auto) 76.9 H Lymph % (Auto) 14.9 L [place] % (Auto) 6.9 Eos % (Auto) 0.6 Baso % (Auto) 0.2 Lymph # (Auto) 1.9 [place] # (Auto) 0.9 Eos # (Auto) 0.1 Baso # (Auto) 0.0 Abs Immat Gran (auto) 0.06 H Absolute Neuts (auto) 9.7 H Absolute Nucleated RBC 0.000 Nucleated RBC % (auto) 0.0 VBG pH VBG pCO2 VBG pO2 VBG HCO3 VBG O2 Saturation VBG Base Excess Sodium 144 Potassium 3.1 L Chloride 105 Carbon Dioxide 30 H Anion Gap 12 BUN 10 Creatinine 0.66 Estim Creat Clear Calc 58.1 Estimated GFR > 60 Random Glucose 103 Calcium 9.2 Magnesium 1.7 Total Bilirubin 0.2 Direct Bilirubin < 0.2 AST 26 ALT 49 H Alkaline Phosphatase 191 H Ammonia 20 Troponin I High Sens 4.6 D B-Natriuretic Peptide 160 H Total Protein 6.4 L Albumin 3.6 TSH 0.74 Urine Color Yellow Urine Appearance Clear Urine pH 7.0 Ur Specific [place] 1.010 Urine Protein Trace Urine Glucose (UA) Negative Urine Ketones Negative Urine Blood Negative Urine Nitrite Negative Ur Leukocyte Esterase Negative 08/20/24 08/21/24 18:32 05:19 WBC 14.2 H RBC 3.30 L Hgb 9.9 L Hct 29.8 L MCV 90.3 MCH 30.0 MCHC 33.2 RDW 13.6 Plt Count 444 H MPV 9.2 L Immature Gran % (Auto) 0.4 Neut % (Auto) 78.2 H Lymph % (Auto) 14.3 L [place] % (Auto) 6.3 Eos % (Auto) 0.6 Baso % (Auto) 0.2 Lymph # (Auto) 2.0 [place] # (Auto) 0.9 Eos # (Auto) 0.1 Baso # (Auto) 0.0 Abs Immat Gran (auto) 0.05 H Absolute Neuts (auto) 11.1 H Absolute Nucleated RBC 0.000 Nucleated RBC % (auto) 0.0 VBG pH 7.56 H VBG pCO2 44 VBG pO2 28 VBG HCO3 39 H VBG O2 Saturation 39.0 VBG Base Excess 15.6 Sodium Potassium Chloride Carbon Dioxide Anion Gap BUN Creatinine Estim Creat Clear Calc Estimated GFR Random Glucose Calcium Magnesium Total Bilirubin Direct Bilirubin AST ALT Alkaline Phosphatase Ammonia Troponin I High Sens B-Natriuretic Peptide Total Protein Albumin TSH Urine Color Urine Appearance Urine pH Ur Specific [place] Urine Protein Urine Glucose (UA) Urine Ketones Urine Blood Urine Nitrite Ur Leukocyte Esterase Mental Status Exam Mental Status Exam Narrative: Appearance: wearing hospital gown, good hygiene, in NAD behavior: distracted, at times guarded Psychomotor: no agitation or retardation noted Speech: minimally verbal, whispering, delayed response. TP: disorganized, with derailment, no significant content communicated TC: random ideas of where she is, saying here in the hospital to socialize Mood: unable to assess as pt staring at this telegraphic typewriter operator, following with her gaze but not talking. Affect: perplexed SI: none HI: none VH/AH: internally preoccupied Delusions:possible delusions due to delirium Insight/judgment: impaired x 2 Memory/cog: alert, not oriented to place, month, year, situation, report of fluctuating mentation. Medications Medications Current Medications Acetaminophen (Acetaminophen 325 Mg Tablet) 650 mg PO Q6H PRN PRN Reason: pain or fever greater than 100.0f Last Admin: 08/22/24 16:54 Dose: 650 mg Acetaminophen (Acetaminophen 325 Mg Tablet) 325 mg PO Q4H PRN PRN Reason: Pain, Moderate(Pain Scale 4-6) Last Admin: 08/21/24 01:34 Dose: 325 mg Acetaminophen/Butalbital/Caffeine (Butalb/Acetamin/Caff 50/325/40 Tablet) 1 tab PO DAILY PRN PRN Reason: Headache Albuterol/Ipratropium (Albuterol/Iprat 2.5/0.5mg 3 Ml Ampul.Neb) 3 ml INHALE QID PRN PRN Reason: wheezing Amlodipine Besylate (Amlodipine Besylate 10 Mg Tablet) 10 mg PO DAILY [facility]; Protocol Last Admin: 08/22/24 08:40 Dose: 10 mg Aspirin (Aspirin 325 Mg Tablet) 325 mg PO BID [facility] Last Admin: 08/22/24 08:32 Dose: 325 mg Atorvastatin Calcium (Atorvastatin Calcium 80 Mg Tablet) 80 mg PO BEDTIME [facility] Last Admin: 08/21/24 21:17 Dose: 80 mg Bisacodyl (Bisacodyl 10 Mg Supp.Rect) 10 mg [place] DAILY PRN PRN Reason: step 2 if no BM 8 hours after MOM Bupropion HCl (Bupropion Hcl Xl 300 Mg Tab.Er.24h) 300 mg PO DAILY [facility] Last Admin: 08/22/24 08:32 Dose: 300 mg Buspirone HCl (Buspirone Hcl 10 Mg Tablet) 10 mg PO BID [facility] Last Admin: 08/22/24 08:32 Dose: 10 mg Clopidogrel Bisulfate (Clopidogrel Bisulfate 75 Mg Tablet) 75 mg PO DAILY [facility] Last Admin: 08/22/24 08:32 Dose: 75 mg Cyclobenzaprine HCl (Cyclobenzaprine Hcl 10 Mg Tablet) 10 mg PO DAILY PRN PRN Reason: muscle spasms Last Admin: 08/21/24 06:15 Dose: 10 mg Fluticasone Propionate (Fluticasone Propionate Nasal 16 Gm [place]) 1 spray NOSTRIL-B BID PRN PRN Reason: allergies Fluticasone/Umeclidinium/Vilanterol (Fluticasone/Umeclidinium/Vilanterol 100/62.5/25 Blst.W.Dev) 1 puff INHALE DAILY [facility] Last Admin: 08/22/24 08:02 Dose: Not Given Levalbuterol HCl (Levalbuterol Hcl 1.25 Mg/3 Ml Vial.Neb) 1.25 mg INHALE TID PRN PRN Reason: Shortness Of Breath Or Wheezing Losartan Potassium (Losartan Potassium 50 Mg Tablet) 50 mg PO BEDTIME [facility]; Protocol Last Admin: 08/21/24 21:16 Dose: 50 mg Magnesium Hydroxide (Milk Of Magnesia 30 Ml Oral.Susp) 30 ml PO DAILY PRN PRN Reason: No Bm for three days Metoprolol Tartrate (Metoprolol Tartrate 25 Mg Tablet) 25 mg PO BID [facility]; Protocol Last Admin: 08/22/24 08:33 Dose: 25 mg Nicotine (Nicotine 7 Mg Patch.Td24) 7 mg TRANSDERMA DAILY [facility] Last Admin: 08/22/24 08:37 Dose: 7 mg Nystatin (Nystatin Oral Susp 500,000 Unit/5 Ml Oral.Susp) 400,000 unit PO QID [facility]; Protocol Last Admin: 08/22/24 16:51 Dose: 400,000 unit Omeprazole (Omeprazole 20 Mg Capsule.Dr) 20 mg PO DAILY@0630 [facility] Last Admin: 08/22/24 06:41 Dose: 20 mg Ondansetron HCl (Ondansetron Odt 4 Mg Tab.Rapdis) 4 mg TRANSLINGU Q8H PRN PRN Reason: Nausea and Vomiting Oxycodone HCl (Oxycodone Hcl Immed Release 5 Mg Tablet) 10 mg PO Q4H PRN PRN Reason: Pain (Scale Score 4-6) Last Admin: 08/22/24 16:54 Dose: 10 mg Risperidone (Risperidone 0.5 Mg Tablet) 0.5 mg PO BID [facility] Roflumilast (Roflumilast 500 Mcg Tablet) 500 mcg PO DAILY [facility] Last Admin: 08/22/24 10:04 Dose: 500 mcg Sertraline HCl (Sertraline Hcl 50 Mg Tablet) 50 mg PO DAILY [facility] Last Admin: 08/22/24 08:32 Dose: 50 mg Sodium Biphosphate/Sodium Phosphate (Sodium Phosphate,[place]-Dibasic 133 Ml Enema) 133 ml [place] DAILY PRN PRN Reason: step 3-no BM after 8h after Bi Vitamin D (Cholecalciferol (Vitamin D3) 25 Mcg Tablet) 50 mcg PO DAILY [facility] Last Admin: 08/22/24 08:32 Dose: 50 mcg Allergies Allergies Allergy/AdvReac Type Severity Reaction Status Date / Time codeine [CODEINE] Allergy Unknown Hives Verified 08/20/24 17:59 Assessment & Plan Assessment & Plan (1) Encephalopathy: Status: Acute Code(s): G93.40 - Encephalopathy, unspecified Plan Mrs. Leslie is a 73 year-old woman who recently was medically admitted after a fall and sustain fracture, underwent hip surgery 07/12/2024, was discharged on 07/24/2024 to [facility], per granddaughter patient has been presenting as increasingly more confused, somewhat paranoid at times. Pt presents with s/s of delirium with poor attention, fluctuating levels of orientation. She was seen by this telegraphic typewriter operator prior to surgery due to patient presenting with visual hallucinations that at the time she was seen the following day, they had cleared on 07/10/2024. At the time, thought was morphine and again she had cleared and was then fully oriented. Her presentation now, regardless of whether there is an underlying neurocognitive disorder, is consistent with delirium of unclear etiology as medical work up unremarkable for acute findings. She does have a hx of MS, MRI may be able to show if any exacerbation of MS may be culprit. PLAN 08/22 continues to present as delirious, not oriented to place, situation, less talkative today. Per nursing, last night up combative. She is alert today. MRI did not show any additional findings. discussed with granddaughter starting low dose risperidone 0.5mg po BID. Total time managing care of this patient today ____ minutes.
--- NOTE | 2024-08-22 18:38 | PC.NURSE ---
Pt calm and cooperative with care. pt is very [place].
[2024-08-22] MEDS: Atorvastatin Calcium 80 MG TABLET PO (20:33)
[2024-08-22] MEDS: Losartan Potassium 50 MG TABLET PO (20:33)
[2024-08-22] MEDS: risperiDONE 0.5 MG TABLET PO (20:57)
--- NOTE | 2024-08-22 21:04 | PC.NURSE ---
alert and oriented. family at bedside. denies pain, SOB, or discomfort. purewick in palce. stable, calm wearing 2L NC per baseline home O2 requirement. call norman in reach
[2024-08-22] MEDS: Milk of Magnesia 30 ML ORAL.SUSP PO (22:17)
--- NOTE | 2024-08-22 23:20 | PC.NURSE ---
pt removed nicotine patch accidentally. disposed into sharps. declines new patch
--- NOTE | 2024-08-23 05:13 | PC.NURSE ---
pt texting 911. PD contacted clinical supervisisor and security. security took phone from pt bed. cell phone secured in [employer] shelf 3 with patient stickers. the patient is lying quietly in bed with eyes closed. call norman in reach
[2024-08-23 06:36] VITALS: RESP 16
--- NOTE | 2024-08-23 09:00 | PC.NURSE ---
Morning medication administration delayed d/t not having medications in pyxis.
[2024-08-23] MEDS: Nicotine 7 MG PATCH.TD24 TRANSDERMA (10:51)
[2024-08-23] MEDS: Omeprazole 20 MG CAPSULE.DR PO (10:52)
[2024-08-23] MEDS: risperiDONE 0.5 MG TABLET PO ×3 (10:54→22:24)
[2024-08-23] MEDS: buPROPion HCl XL 300 MG TAB.ER.24H PO (10:54)
[2024-08-23] MEDS: Nystatin Oral Susp 500,000 UNIT/5 ML ORAL.SUSP 400000 UNIT PO ×3 (10:55→22:24)
[2024-08-23] MEDS: OLANZapine 10 MG VIAL 5 MG IM (11:56)
[2024-08-23] MEDS: diphenhydrAMINE HCL 50 MG/ML VIAL 25 MG IM (11:56)
--- NOTE | 2024-08-23 12:21 | PC.NURSE ---
This RN attempted to medicate pt with morning meds. Pt became agitated, attempting to get out of bed. Unsteady gait while attempting to get out of bed, this RN tried to redirect pt along with foil cutter and Additional RN, pt unable to be redirected into bed. Swearing/yelling at staff, pulling on medical equipment/bed side table. Pt became combative with staff, attempted to throw water cup at foil cutter/ Coffee cup at this RN. SHANIQUA Gerber made aware of situation. Verbal order for IM 25mg Bendaryl and 5mg Zyprexa IM d/t pts safety. Refer to MAR/paper documentation for times of medication administration. Pt resting in bed, continues to call staff names/act belligerent. Vitals cycling q15 minutes for monitoring/safety.
--- NOTE | 2024-08-23 14:51 | PC.NURSE ---
Post medication administration pt. is calm and amenable to assessments and care. Intermittently swearing, but not aggressive as previously. Is eating calmly, reports some soreness to her hip from her old fall where I had a surgery , requested heat pad , was given heat pack with reported comfort. Kamaljit updated via phone. 1:1 sitter at bedside at 3pm. Call norman within reach, denies other needs at present. Will continue to monitor
--- NOTE | 2024-08-23 16:17 | P.CNPS_ITS ---
History of Present Illness Date of Service: 08/23/2024 Chief Complaint: HALLUCINATIONS Sources of Information: patient interviewed, chart reviewed and crisis/core team assessment reviewed HPI Narrative: Interim Hx: pt in bed, calm, presents slightly more organized in thought process and attention, in that able to answer simple questions more appropriately. She tells me that she is at [employer]. She is able to tell that it is August. When asked about the year she initially said , when asked to say year completely, she said 2024. RN reports that this morning she was refusing medications, telling her that she knew they were trying to give her medications and she would not take them, she was somewhat combative and received olanzapine 5mg IM and benadryl 25mg IM which seemed to be very helpful in that pt later presented as calmer and by the time this job specification writer saw her seem more organized than days prior, still confused. Per RN, pt last night was paranoid, apparently called police and family members. Past Psychiatric History: Denies history of inpatient psychiatric hospitalization. Obtain psychiatric medications from her PCP. [facility] Medical History MDD (major depressive disorder), recurrent episode Essential hypertension Leukocytosis History of CAD (coronary artery disease) Peripheral vascular disease Chronic back pain GERD (gastroesophageal reflux disease) High cholesterol HTN (hypertension) Immune disorder COPD (chronic obstructive pulmonary disease) Multiple sclerosis Surgical History History of angioplasty History of heart artery stent Family History: depression Social History: lives with , 2 children who are . retired from [employer]. Trauma History: yes Diagnostics Vital Signs (24Hr): Vital Signs - 24 hr 08/22/24 15:24 08/22/24 16:06 08/22/24 18:35 Temperature 98 F 97.7 F 98.3 F Pulse Rate 86 83 83 Respiratory Rate 20 20 20 Blood Pressure 130/64 135/62 135/65 Pulse Oximetry 100 100 99 Oxygen Delivery Method Nasal Cannula Nasal Cannula Nasal Cannula Oxygen Flow Rate 2 2 2 08/22/24 20:14 08/23/24 06:36 Temperature 97.4 F Pulse Rate 90 Respiratory Rate 19 16 Blood Pressure 124/61 Pulse Oximetry 96 Oxygen Delivery Method Nasal Cannula Oxygen Flow Rate BMI result Body Mass Index 22.0 Labs 08/21/24 05:19 08/20/24 18:00 Medications Medications Current Medications Acetaminophen (Acetaminophen 325 Mg Tablet) 650 mg PO Q6H PRN PRN Reason: pain or fever greater than 100.0f Last Admin: 08/22/24 16:54 Dose: 650 mg Acetaminophen (Acetaminophen 325 Mg Tablet) 325 mg PO Q4H PRN PRN Reason: Pain, Moderate(Pain Scale 4-6) Last Admin: 08/21/24 01:34 Dose: 325 mg Acetaminophen/Butalbital/Caffeine (Butalb/Acetamin/Caff 50/325/40 Tablet) 1 tab PO DAILY PRN PRN Reason: Headache Albuterol/Ipratropium (Albuterol/Iprat 2.5/0.5mg 3 Ml Ampul.Neb) 3 ml INHALE QID PRN PRN Reason: wheezing Amlodipine Besylate (Amlodipine Besylate 10 Mg Tablet) 10 mg PO DAILY [facility]; Protocol Last Admin: 08/23/24 12:20 Dose: Not Given Aspirin (Aspirin 325 Mg Tablet) 325 mg PO BID [facility] Last Admin: 08/23/24 12:20 Dose: Not Given Atorvastatin Calcium (Atorvastatin Calcium 80 Mg Tablet) 80 mg PO BEDTIME [facility] Last Admin: 08/22/24 20:33 Dose: 80 mg Bisacodyl (Bisacodyl 10 Mg Supp.Rect) 10 mg [place] DAILY PRN PRN Reason: step 2 if no BM 8 hours after MOM Bupropion HCl (Bupropion Hcl Xl 300 Mg Tab.Er.24h) 300 mg PO DAILY [facility] Last Admin: 08/23/24 10:54 Dose: 300 mg Buspirone HCl (Buspirone Hcl 10 Mg Tablet) 10 mg PO BID [facility] Last Admin: 08/23/24 12:20 Dose: Not Given Clopidogrel Bisulfate (Clopidogrel Bisulfate 75 Mg Tablet) 75 mg PO DAILY [facility] Last Admin: 08/23/24 12:20 Dose: Not Given Cyclobenzaprine HCl (Cyclobenzaprine Hcl 10 Mg Tablet) 10 mg PO DAILY PRN PRN Reason: muscle spasms Last Admin: 08/21/24 06:15 Dose: 10 mg Fluticasone Propionate (Fluticasone Propionate Nasal 16 Gm [place]) 1 spray NOSTRIL-B BID PRN PRN Reason: allergies Fluticasone/Umeclidinium/Vilanterol (Fluticasone/Umeclidinium/Vilanterol 100/62.5/25 Blst.W.Dev) 1 puff INHALE DAILY [facility] Last Admin: 08/23/24 08:55 Dose: Not Given Levalbuterol HCl (Levalbuterol Hcl 1.25 Mg/3 Ml Vial.Neb) 1.25 mg INHALE TID PRN PRN Reason: Shortness Of Breath Or Wheezing Losartan Potassium (Losartan Potassium 50 Mg Tablet) 50 mg PO BEDTIME [facility]; Protocol Last Admin: 08/22/24 20:33 Dose: 50 mg Magnesium Hydroxide (Milk Of Magnesia 30 Ml Oral.Susp) 30 ml PO DAILY PRN PRN Reason: No Bm for three days Last Admin: 08/22/24 22:17 Dose: 30 ml Metoprolol Tartrate (Metoprolol Tartrate 25 Mg Tablet) 25 mg PO BID [facility]; Protocol Last Admin: 08/23/24 12:19 Dose: Not Given Nicotine (Nicotine 7 Mg Patch.Td24) 7 mg TRANSDERMA DAILY [facility] Last Admin: 08/23/24 10:51 Dose: 7 mg Nystatin (Nystatin Oral Susp 500,000 Unit/5 Ml Oral.Susp) 400,000 unit PO QID [facility]; Protocol Last Admin: 08/23/24 12:47 Dose: Not Given Omeprazole (Omeprazole 20 Mg Capsule.Dr) 20 mg PO DAILY@0630 [facility] Last Admin: 08/23/24 10:52 Dose: 20 mg Ondansetron HCl (Ondansetron Odt 4 Mg Tab.Rapdis) 4 mg TRANSLINGU Q8H PRN PRN Reason: Nausea and Vomiting Oxycodone HCl (Oxycodone Hcl Immed Release 5 Mg Tablet) 10 mg PO Q4H PRN PRN Reason: Pain (Scale Score 4-6) Last Admin: 08/22/24 16:54 Dose: 10 mg Risperidone (Risperidone 0.5 Mg Tablet) 0.5 mg PO BID [facility] Last Admin: 08/23/24 10:54 Dose: 0.5 mg Roflumilast (Roflumilast 500 Mcg Tablet) 500 mcg PO DAILY [facility] Last Admin: 08/23/24 12:19 Dose: Not Given Sertraline HCl (Sertraline Hcl 50 Mg Tablet) 50 mg PO DAILY [facility] Last Admin: 08/23/24 12:19 Dose: Not Given Sodium Biphosphate/Sodium Phosphate (Sodium Phosphate,[place]-Dibasic 133 Ml Enema) 133 ml [place] DAILY PRN PRN Reason: step 3-no BM after 8h after Bi Vitamin D (Cholecalciferol (Vitamin D3) 25 Mcg Tablet) 50 mcg PO DAILY [facility] Last Admin: 08/23/24 12:20 Dose: Not Given Allergies Allergies Allergy/AdvReac Type Severity Reaction Status Date / Time codeine [CODEINE] Allergy Unknown Hives Verified 08/20/24 17:59 Assessment & Plan Assessment & Plan (1) Encephalopathy: Status: Acute Code(s): G93.40 - Encephalopathy, unspecified Plan Mrs. Leslie is a 73 year-old woman who recently was medically admitted after a fall and sustain fracture, underwent hip surgery 07/12/2024, was discharged on 07/24/2024 to [facility], per granddaughter patient has been presenting as increasingly more confused, somewhat paranoid at times. Pt presents with s/s of delirium with poor attention, fluctuating levels of orientation. She was seen by this job specification writer prior to surgery due to patient presenting with visual hallucinations that at the time she was seen the following day, they had cleared on 07/10/2024. At the time, thought was morphine and again she had cleared and was then fully oriented. Her presentation now, regardless of whether there is an underlying neurocognitive disorder, is consistent with delirium of unclear etiology as medical work up unremarkable for acute findings. She does have a hx of MS, MRI may be able to show if any exacerbation of MS may be culprit. PLAN 08/22 continues to present as delirious, not oriented to place, situation, less talkative today. Per nursing, last night up combative. She is alert today. MRI did not show any additional findings. discussed with granddaughter starting low dose risperidone 0.5mg po BID. 08/23 pt presents more organized than days prior, attention is better, still confused about where she is and why, but able to tell month and year. Total time managing care of this patient today ____ minutes.
[2024-08-23] MEDS: oxyCODONE HCl Immed Release 5 MG TABLET 10 MG PO ×2 (17:03→23:26)
[2024-08-23 18:50] LABS: Alanine Aminotransferase 33 U/L (0-31); Albumin Level 3.5 g/dL (3.5-5.0); Anion Gap 14 (12-20); Aspartate Amino Transferase 22 U/L (5-31); Bilirubin Total 0.3 mg/dL (0.0-1.0); Blood Urea Nitrogen 20 mg/dL (9-16); Calcium 9.4 mg/dL (8.4-10.2); Carbon Dioxide 29 mmol/L (22-29); Chloride 105 mmol/L (96-108); Creatinine Clr Calc Pharmacy 54.7; Estimated Glomerular Filt Rate > 60; Glucose Random 189 mg/dL (60-115); Potassium 2.8 mmol/L (3.3-5.1); Sodium 145 mmol/L (135-145); Total Protein 6.2 g/dL (6.5-8.0)
[2024-08-23 18:58] LABS: Alkaline Phosphatase 182 U/L (39-117)
[2024-08-23] MEDS: 0.9 % Sodium Chloride 500 ML IV (20:03)
[2024-08-23] MEDS: Potassium Chloride/H20 10 MEQ/100 ML PIGGYBACK 100 MEQ IV ×4 (20:03→22:31)
[2024-08-23] MEDS: Potassium Chloride Packet 20 MEQ PACKET 40 MEQ PO (20:03)
[2024-08-23 20:11] VITALS: BP 137/71; PULSE 109; RESP 18; TEMP 36.6; O2SAT 96
[2024-08-23 22:23] VITALS: BP 135/70; PULSE 100
[2024-08-23] MEDS: Aspirin 325 MG TABLET PO (22:23)
[2024-08-23] MEDS: Metoprolol Tartrate 25 MG TABLET PO (22:23)
[2024-08-23] MEDS: busPIRone HCl 10 MG TABLET PO (22:23)
[2024-08-23] MEDS: Atorvastatin Calcium 80 MG TABLET PO (22:23)
[2024-08-23 22:24] VITALS: BP 135/70
[2024-08-23] MEDS: Losartan Potassium 50 MG TABLET PO (22:24)
[2024-08-23] MEDS: Cyclobenzaprine HCl 10 MG TABLET PO (22:24)
[2024-08-24] VITALS (17 sets, daily range): BP systolic 108–192; BP diastolic 51–75; PULSE 75–106; RESP 16–20; TEMP 36.3–36.9; O2SAT 95–100
[2024-08-24] MEDS: oxyCODONE HCl Immed Release 5 MG TABLET 10 MG PO ×2 (03:40→09:15)
--- NOTE | 2024-08-24 05:39 | PC.NURSE ---
pt awake, confused calling his grandson name attempting to get out of bed, redirected with some effect.
[2024-08-24] MEDS: OLANZapine 5 MG TABLET PO ×2 (05:51→16:41)
[2024-08-24] MEDS: Omeprazole 20 MG CAPSULE.DR PO (05:51)
[2024-08-24] MEDS: Sertraline HCL 50 MG TABLET PO (09:14)
[2024-08-24] MEDS: Aspirin 325 MG TABLET PO ×2 (09:14→22:32)
[2024-08-24] MEDS: Cholecalciferol (Vitamin D3) 25 MCG TABLET 50 MCG PO (09:15)
[2024-08-24] MEDS: Fluticasone/Umeclidinium/Vilanterol 100/62.5/25 BLST.W.DEV 1 PUFF INHALE (09:15)
[2024-08-24] MEDS: busPIRone HCl 10 MG TABLET PO ×2 (09:15→22:32)
[2024-08-24] MEDS: Acetaminophen 325 MG TABLET PO (09:17)
[2024-08-24] MEDS: risperiDONE 0.5 MG TABLET PO ×2 (09:18→22:32)
[2024-08-24] MEDS: Clopidogrel Bisulfate 75 MG TABLET PO (09:18)
[2024-08-24] MEDS: amLODIPine Besylate 10 MG TABLET PO (09:18)
[2024-08-24] MEDS: Metoprolol Tartrate 25 MG TABLET PO ×2 (09:18→20:16)
[2024-08-24] MEDS: Nicotine 7 MG PATCH.TD24 TRANSDERMA (09:19)
[2024-08-24] MEDS: Nystatin Oral Susp 500,000 UNIT/5 ML ORAL.SUSP 400000 UNIT PO ×2 (09:21→20:16)
[2024-08-24] MEDS: Roflumilast 500 MCG TABLET PO (09:23)
--- NOTE | 2024-08-24 12:05 | MHC.CM.ED ---
Addendum entered by Valerie Marin 08/24/24 13:13: Per Eliz, service advocate contact, patient is delirious. Eliz will order a neuro consult. Addendum entered by Valerie Marin 08/24/24 12:15: Per Anusha, patient's hearing aides are missing. Anusha encouraged to reach out to security. Original Note: Patient remains in ER. Patient supposed to go home with granddaughter and [facility]. Anusha at bedside and concerned she has not received any calls from [facility] about extra care at home for patient. T/W attempted to reach out to Andrew of [facility] without success. Zita's telephone number provided to Anusha. Anusha will reach out to [facility]. Anticipate patient will remain in ER overnight until a better idea of any services that [facility] can assist patient and family with can be confirmed. Continue to monitor for d/c needs.
--- NOTE | 2024-08-24 13:15 | P.CNPS_ITS ---
History of Present Illness Date of Service: 08/24/2024 Chief Complaint: HALLUCINATIONS Discussed with referring provider: Yes Sources of Information: patient interviewed, chart reviewed and crisis/core team assessment reviewed HPI Narrative: Interim Hx: pt presents as confused, again attention is poor. She is not oriented to place, month, year. Her speech is mumbling at times. No significant improvement in delirium. She had repeat potassium which was low 2.8, given potassium chloride 20 meq, pending repeat K. Past Psychiatric History: Denies history of inpatient psychiatric hospitalization. Obtain psychiatric medications from her PCP. [facility] Medical History MDD (major depressive disorder), recurrent episode Essential hypertension Leukocytosis History of CAD (coronary artery disease) Peripheral vascular disease Chronic back pain GERD (gastroesophageal reflux disease) High cholesterol HTN (hypertension) Immune disorder COPD (chronic obstructive pulmonary disease) Multiple sclerosis Surgical History History of angioplasty History of heart artery stent Family History: depression Social History: lives with , 2 children who are . retired from [employer]. Trauma History: yes Diagnostics Vital Signs (24Hr): Vital Signs - 24 hr 08/23/24 20:11 08/23/24 22:23 08/23/24 22:24 Temperature 98 F Pulse Rate 109 H 100 Respiratory Rate 18 Blood Pressure 137/71 135/70 135/70 Pulse Oximetry 96 Oxygen Delivery Method Nasal Cannula Oxygen Flow Rate 08/24/24 01:26 08/24/24 06:38 08/24/24 09:17 Temperature 97.9 F 98.4 F Pulse Rate 75 80 106 H Respiratory Rate 16 16 18 Blood Pressure 108/67 152/51 H Pulse Oximetry 100 97 Oxygen Delivery Method Nasal Cannula Nasal Cannula Oxygen Flow Rate 3 2 BMI result Body Mass Index 22.0 Labs 08/21/24 05:19 08/24/24 21:46 Labs: Laboratory Results - last 48 hr 08/23/24 18:01 Sodium 145 Potassium 2.8 L* Chloride 105 Carbon Dioxide 29 Anion Gap 14 BUN 20 H Creatinine 0.70 Estim Creat Clear Calc 54.7 Estimated GFR > 60 Random Glucose 189 H Calcium 9.4 Total Bilirubin 0.3 AST 22 ALT 33 H Alkaline Phosphatase 182 H Total Protein 6.2 L Albumin 3.5 Mental Status Exam Mental Status Exam Narrative: Lying in bed, mumbling, KASHIA, in no acute distressed. Not oriented to place, situation, month or year. Attention poor. Medications Medications Current Medications Acetaminophen (Acetaminophen 325 Mg Tablet) 650 mg PO Q6H PRN PRN Reason: pain or fever greater than 100.0f Last Admin: 08/22/24 16:54 Dose: 650 mg Acetaminophen (Acetaminophen 325 Mg Tablet) 325 mg PO Q4H PRN PRN Reason: Pain, Moderate(Pain Scale 4-6) Last Admin: 08/24/24 09:17 Dose: 325 mg Acetaminophen/Butalbital/Caffeine (Butalb/Acetamin/Caff 50/325/40 Tablet) 1 tab PO DAILY PRN PRN Reason: Headache Albuterol/Ipratropium (Albuterol/Iprat 2.5/0.5mg 3 Ml Ampul.Neb) 3 ml INHALE QID PRN PRN Reason: wheezing Amlodipine Besylate (Amlodipine Besylate 10 Mg Tablet) 10 mg PO DAILY [facility]; Protocol Last Admin: 08/24/24 09:18 Dose: 10 mg Aspirin (Aspirin 325 Mg Tablet) 325 mg PO BID [facility] Last Admin: 08/24/24 09:14 Dose: 325 mg Atorvastatin Calcium (Atorvastatin Calcium 80 Mg Tablet) 80 mg PO BEDTIME [facility] Last Admin: 08/23/24 22:23 Dose: 80 mg Bisacodyl (Bisacodyl 10 Mg Supp.Rect) 10 mg MO DAILY PRN PRN Reason: step 2 if no BM 8 hours after MOM Buspirone HCl (Buspirone Hcl 10 Mg Tablet) 10 mg PO BID [facility] Last Admin: 08/24/24 09:15 Dose: 10 mg Clopidogrel Bisulfate (Clopidogrel Bisulfate 75 Mg Tablet) 75 mg PO DAILY [facility] Last Admin: 08/24/24 09:18 Dose: 75 mg Cyclobenzaprine HCl (Cyclobenzaprine Hcl 10 Mg Tablet) 10 mg PO DAILY PRN PRN Reason: muscle spasms Last Admin: 08/23/24 22:24 Dose: 10 mg Fluticasone Propionate (Fluticasone Propionate Nasal 16 Gm [place]) 1 spray NOSTRIL-B BID PRN PRN Reason: allergies Fluticasone/Umeclidinium/Vilanterol (Fluticasone/Umeclidinium/Vilanterol 100/62.5/25 Blst.W.Dev) 1 puff INHALE DAILY [facility] Last Admin: 08/24/24 09:15 Dose: 1 puff Levalbuterol HCl (Levalbuterol Hcl 1.25 Mg/3 Ml Vial.Neb) 1.25 mg INHALE TID PRN PRN Reason: Shortness Of Breath Or Wheezing Losartan Potassium (Losartan Potassium 50 Mg Tablet) 50 mg PO BEDTIME [facility]; Protocol Last Admin: 08/23/24 22:24 Dose: 50 mg Magnesium Hydroxide (Milk Of Magnesia 30 Ml Oral.Susp) 30 ml PO DAILY PRN PRN Reason: No Bm for three days Last Admin: 08/22/24 22:17 Dose: 30 ml Metoprolol Tartrate (Metoprolol Tartrate 25 Mg Tablet) 25 mg PO BID [facility]; Protocol Last Admin: 08/24/24 09:18 Dose: 25 mg Nicotine (Nicotine 7 Mg Patch.Td24) 7 mg TRANSDERMA DAILY [facility] Last Admin: 08/24/24 09:19 Dose: 7 mg Nystatin (Nystatin Oral Susp 500,000 Unit/5 Ml Oral.Susp) 400,000 unit PO QID [facility]; Protocol Last Admin: 08/24/24 09:21 Dose: 400,000 unit Olanzapine (Olanzapine 5 Mg Tablet) 5 mg PO Q6H PRN PRN Reason: agitation Last Admin: 08/24/24 05:51 Dose: 5 mg Omeprazole (Omeprazole 20 Mg Capsule.Dr) 20 mg PO DAILY@0630 [facility] Last Admin: 08/24/24 05:51 Dose: 20 mg Ondansetron HCl (Ondansetron Odt 4 Mg Tab.Rapdis) 4 mg TRANSLINGU Q8H PRN PRN Reason: Nausea and Vomiting Oxycodone HCl (Oxycodone Hcl Immed Release 5 Mg Tablet) 10 mg PO Q4H PRN PRN Reason: Pain (Scale Score 4-6) Last Admin: 08/24/24 09:15 Dose: 10 mg Risperidone (Risperidone 0.5 Mg Tablet) 0.5 mg PO BID [facility] Last Admin: 08/24/24 09:18 Dose: 0.5 mg Roflumilast (Roflumilast 500 Mcg Tablet) 500 mcg PO DAILY [facility] Last Admin: 08/24/24 09:23 Dose: 500 mcg Sertraline HCl (Sertraline Hcl 50 Mg Tablet) 50 mg PO DAILY [facility] Last Admin: 08/24/24 09:14 Dose: 50 mg Sodium Biphosphate/Sodium Phosphate (Sodium Phosphate,[place]-Dibasic 133 Ml Enema) 133 ml MO DAILY PRN PRN Reason: step 3-no BM after 8h after Bi Vitamin D (Cholecalciferol (Vitamin D3) 25 Mcg Tablet) 50 mcg PO DAILY [facility] Last Admin: 08/24/24 09:15 Dose: 50 mcg Allergies Allergies Allergy/AdvReac Type Severity Reaction Status Date / Time codeine [CODEINE] Allergy Unknown Hives Verified 08/20/24 17:59 Assessment & Plan Assessment & Plan (1) Encephalopathy: Status: Acute Code(s): G93.40 - Encephalopathy, unspecified Plan Mrs. Leslie is a 73 year-old woman who recently was medically admitted after a fall and sustain fracture, underwent hip surgery 07/12/2024, was discharged on 07/24/2024 to [facility], per granddaughter patient has been presenting as increasingly more confused, somewhat paranoid at times. Pt presents with s/s of delirium with poor attention, fluctuating levels of orientation. She was seen by this lyric writer prior to surgery due to patient presenting with visual hallucinations that at the time she was seen the following day, they had cleared on 07/10/2024. At the time, thought was morphine and again she had cleared and was then fully oriented. Her presentation now, regardless of whether there is an underlying neurocognitive disorder, is consistent with delirium of unclear etiology as medical work up unremarkable for acute findings. She does have a hx of MS, MRI may be able to show if any exacerbation of MS may be culprit. PLAN 08/22 continues to present as delirious, not oriented to place, situation, less talkative today. Per nursing, last night up combative. She is alert today. MRI did not show any additional findings. discussed with granddaughter starting low dose risperidone 0.5mg po BID. 08/23 pt presents more organized than days prior, attention is better, still confused about where she is and why, but able to tell month and year. 08/24 again poor attention, not oriented to place, month or year. prolonged delirium of unclear nature. consult neurology if they offer additional insights. Total time managing care of this patient today ____ minutes.
--- NOTE | 2024-08-24 13:34 | PC.NURSE ---
Patient's bed alarm in place. Alarm sounded, staff to bedside. Patient found standing at side of bed, no fall. Redirected back to bed. Requested video camera for additional monitoring & safety.
[2024-08-24] MEDS: OLANZapine 10 MG VIAL 5 MG IM (14:02)
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
--- NOTE | 2024-08-24 16:46 | PC.NURSE ---
Both hearing aids located by family and cell phone located by ED staff (per Shaista Freedman). Granddaughter & at bedside at this time. Medicated with PO Zyprexa 5mg for ongoing agitation.
--- NOTE | 2024-08-24 16:50 | PC.NURSE ---
per pt's grandaughBurciaga, hearing aids were sent home with pt's grandfather.
--- NOTE | 2024-08-24 17:27 | PC.NURSE ---
Cell phone given to granddaughter Ayla, hearing aids with . Belongings list updated.
[2024-08-24] MEDS: Ziprasidone Mesylate 20 MG VIAL IM (18:44)
--- NOTE | 2024-08-24 18:44 | PC.NURSE ---
Delayed entry by this RN: Geodon 20mg IM given to left deltoid by this RN. Patient's and granddaughter were at bedside visiting, and left just prior to the patient receiving medication restraint. While and granddaughter were visiting, patient was repeatedly combative, including with family. Yelling at anyone, repeatedly trying to get out of bed. Insisting on leaving to get dressed, clean the house, accusing staff of stealing her belongings. Granddaughter wrote a note to remind the patient that she is at [facility], to be kind to others, that her cell phone is with the granddaughter, and hearing aids are with . Patient ripped up this piece of paper. Patient was able to be calmed by Hidwaat (results technician) to receive IM medication without hold. Patient complained of left hip pain (baseline fracture). Purewick in place to wall suction, effective/working. Sitter remains in place. Video camera #36 also continues. Care ongoing by this RN.
[2024-08-24] MEDS: Losartan Potassium 50 MG TABLET PO (20:15)
[2024-08-24] MEDS: Atorvastatin Calcium 80 MG TABLET PO (20:16)
[2024-08-24] MEDS: Acetaminophen 325 MG TABLET 650 MG PO (20:16)
[2024-08-24 22:17] LABS: Anion Gap 13 (12-20); Blood Urea Nitrogen 9 mg/dL (9-16); Calcium 9.3 mg/dL (8.4-10.2); Carbon Dioxide 28 mmol/L (22-29); Chloride 111 mmol/L (96-108); Creatinine Clr Calc Pharmacy 67.3; Estimated Glomerular Filt Rate > 60; Glucose Random 107 mg/dL (60-115); Magnesium 1.8 mg/dL (1.6-2.6); Potassium 3.5 mmol/L (3.3-5.1); Sodium 148 mmol/L (135-145)
[2024-08-25] VITALS (13 sets, daily range): BP systolic 125–166; BP diastolic 65–81; PULSE 70–103; RESP 16–24; TEMP 36.7–37.1; O2SAT 95–100
[2024-08-25] MEDS: Ziprasidone Mesylate 20 MG VIAL IM (03:55)
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
--- NOTE | 2024-08-25 06:01 | MHC.EDTECH ---
Patient is calm and cooperative ,bed bath given ,bedding and gown and socks change ,vitals taken ,fluids offer,Patient refused ,700 ml urine empty from Purewick canister ,all safety measure in Place .
[2024-08-25] MEDS: Omeprazole 20 MG CAPSULE.DR PO (06:32)
[2024-08-25] MEDS: Fluticasone/Umeclidinium/Vilanterol 100/62.5/25 BLST.W.DEV 1 PUFF INHALE (08:39)
[2024-08-25] MEDS: Cholecalciferol (Vitamin D3) 25 MCG TABLET 50 MCG PO (08:49)
[2024-08-25] MEDS: amLODIPine Besylate 10 MG TABLET PO (08:50)
[2024-08-25] MEDS: OLANZapine 5 MG TABLET PO ×3 (08:50→20:37)
[2024-08-25] MEDS: Metoprolol Tartrate 25 MG TABLET PO ×2 (08:51→20:15)
[2024-08-25] MEDS: Nystatin Oral Susp 500,000 UNIT/5 ML ORAL.SUSP 400000 UNIT PO ×3 (08:51→20:13)
[2024-08-25] MEDS: Aspirin 325 MG TABLET PO ×2 (09:12→20:29)
[2024-08-25] MEDS: busPIRone HCl 10 MG TABLET PO ×2 (09:14→20:14)
[2024-08-25] MEDS: risperiDONE 0.5 MG TABLET PO ×2 (09:14→20:13)
[2024-08-25] MEDS: Clopidogrel Bisulfate 75 MG TABLET PO (09:14)
[2024-08-25] MEDS: Sertraline HCL 50 MG TABLET PO (09:14)
[2024-08-25] MEDS: Roflumilast 500 MCG TABLET PO (09:14)
[2024-08-25] MEDS: Nicotine 7 MG PATCH.TD24 TRANSDERMA (09:23)
--- NOTE | 2024-08-25 10:36 | PC.NURSE ---
pt awoke with agitation at 0830. did calm when ildefonso got here, medicated as ordered and prn given, pt has remained calm and redirectable but confused, ate small amt of breakfast and took her meds with pudding, incontinent of urine and cleaned with linens changed
[2024-08-25] MEDS: Acetaminophen 325 MG TABLET 650 MG PO (10:44)
[2024-08-25] MEDS: Cyclobenzaprine HCl 10 MG TABLET PO (11:25)
--- NOTE | 2024-08-25 14:35 | PC.NURSE ---
pt talking to herself and agitated, difficulty opening the package to a cake that her family had brought but the package was already open, yelling out at times, redirectable but yelling out frequently and talking to herself,prfelicia friedman given
--- NOTE | 2024-08-25 15:26 | MHC.CM.ED ---
Patient remains in ER overflow. Neuro consult completed. No additional testing recommended at this time. Eliz, steeplechase jockey aware. Continue to monitor for d/c needs.
[2024-08-25] MEDS: OLANZapine 10 MG TABLET PO (16:58)
[2024-08-25] MEDS: 0.9 % Sodium Chloride 1,000 ML 999 ML IV (17:02)
--- NOTE | 2024-08-25 17:04 | PC.NURSE ---
zyprexa 10mg po given per Eliz Barrera, pt also given 1 l ns bolus, sitter at bedside, pt granddaughter here and confirms that the pt is hallucinating as she is talking with people that many years ago, pt ate some pudding with her med, pt has calmed some with the arrival of her granddaughter Ayla.
--- NOTE | 2024-08-25 17:07 | PM.PSYCN ---
History of Present Illness Date of Service: 08/25/2024 Chief Complaint: HALLUCINATIONS Discussed with referring provider: Yes Sources of Information: patient interviewed, chart reviewed and crisis/core team assessment reviewed HPI Narrative: Interim: pt continues to present with poor attention, not oriented to situation, month, year. Behaviors is disorganized, combative at times requiring IM medications. Review neurology note, indicating at this point, symptomatic treatment. Spoke with granddaughter, Ayla, who is HCP to clarify that patient does NOT have hx of alcohol use to explain lesion to the lula. Pt had limited oral intake, and this needs to be closely monitored as it may be cause of hypokalemia. Past Psychiatric History: Denies history of inpatient psychiatric hospitalization. Obtain psychiatric medications from her PCP. [facility] Medical History MDD (major depressive disorder), recurrent episode Essential hypertension Leukocytosis History of CAD (coronary artery disease) Peripheral vascular disease Chronic back pain GERD (gastroesophageal reflux disease) High cholesterol HTN (hypertension) Immune disorder COPD (chronic obstructive pulmonary disease) Multiple sclerosis Surgical History History of angioplasty History of heart artery stent Family History: depression Social History: lives with , 2 children who are . retired from [employer] office. Trauma History: yes Diagnostics Vital Signs (24Hr): Vital Signs - 24 hr 08/24/24 18:44 08/24/24 18:59 08/24/24 19:14 Temperature Pulse Rate 89 Respiratory Rate 20 20 16 Blood Pressure 145/62 H Pulse Oximetry 97 Oxygen Delivery Method Nasal Cannula Nasal Cannula Nasal Cannula Oxygen Flow Rate 2 2 2 08/24/24 19:29 08/24/24 19:44 08/24/24 20:15 Temperature Pulse Rate 84 81 Respiratory Rate 16 16 Blood Pressure 138/70 146/70 H 141/63 H Pulse Oximetry 98 96 Oxygen Delivery Method Nasal Cannula Nasal Cannula Oxygen Flow Rate 2 2 08/24/24 20:16 08/24/24 20:47 08/25/24 04:10 Temperature 97.4 F Pulse Rate 83 104 H Respiratory Rate 16 24 H Blood Pressure 141/63 H 192/75 H Pulse Oximetry 99 Oxygen Delivery Method Nasal Cannula Oxygen Flow Rate 2 08/25/24 04:25 08/25/24 04:40 08/25/24 04:55 Temperature Pulse Rate Respiratory Rate 18 18 18 Blood Pressure Pulse Oximetry Oxygen Delivery Method Oxygen Flow Rate 08/25/24 06:01 08/25/24 08:25 08/25/24 08:40 Temperature 98.7 F 98.0 F Pulse Rate 77 98 103 H Respiratory Rate 16 20 20 Blood Pressure 164/79 H 158/71 H Pulse Oximetry 97 100 Oxygen Delivery Method Nasal Cannula Nasal Cannula Oxygen Flow Rate 2 2 08/25/24 08:50 08/25/24 08:51 08/25/24 14:39 Temperature 98.0 F Pulse Rate 70 93 Respiratory Rate 18 Blood Pressure 150/81 H 150/81 H 166/79 H Pulse Oximetry 100 Oxygen Delivery Method Nasal Cannula Oxygen Flow Rate 2 BMI result Body Mass Index 22.0 Labs 08/21/24 05:19 08/24/24 21:46 Labs: Laboratory Results - last 48 hr 08/23/24 08/24/24 18:01 21:46 Sodium 145 148 H Potassium 2.8 L* 3.5 D Chloride 105 111 H Carbon Dioxide 29 28 Anion Gap 14 13 BUN 20 H 9 Creatinine 0.70 0.57 Estim Creat Clear Calc 54.7 67.3 Estimated GFR > 60 > 60 Random Glucose 189 H 107 Calcium 9.4 9.3 Magnesium 1.8 Total Bilirubin 0.3 AST 22 ALT 33 H Alkaline Phosphatase 182 H Total Protein 6.2 L Albumin 3.5 Mental Status Exam Mental Status Exam Narrative: Lying in bed, mumbling, KLAMATH, in no acute distressed. Not oriented to place, situation, month or year. Attention poor. She is having conversation with people who are not there. Medications Medications Current Medications Acetaminophen (Acetaminophen 325 Mg Tablet) 650 mg PO Q6H PRN PRN Reason: pain or fever greater than 100.0f Last Admin: 08/25/24 10:44 Dose: 650 mg Acetaminophen (Acetaminophen 325 Mg Tablet) 325 mg PO Q4H PRN PRN Reason: Pain, Moderate(Pain Scale 4-6) Last Admin: 08/24/24 09:17 Dose: 325 mg Acetaminophen/Butalbital/Caffeine (Butalb/Acetamin/Caff 50/325/40 Tablet) 1 tab PO DAILY PRN PRN Reason: Headache Albuterol/Ipratropium (Albuterol/Iprat 2.5/0.5mg 3 Ml Ampul.Neb) 3 ml INHALE QID PRN PRN Reason: wheezing Amlodipine Besylate (Amlodipine Besylate 10 Mg Tablet) 10 mg PO DAILY [facility]; Protocol Last Admin: 08/25/24 08:50 Dose: 10 mg Aspirin (Aspirin 325 Mg Tablet) 325 mg PO BID [facility] Last Admin: 08/25/24 09:12 Dose: 325 mg Atorvastatin Calcium (Atorvastatin Calcium 80 Mg Tablet) 80 mg PO BEDTIME [facility] Last Admin: 08/24/24 20:16 Dose: 80 mg Bisacodyl (Bisacodyl 10 Mg Supp.Rect) 10 mg DE DAILY PRN PRN Reason: step 2 if no BM 8 hours after MOM Buspirone HCl (Buspirone Hcl 10 Mg Tablet) 10 mg PO BID [facility] Last Admin: 08/25/24 09:14 Dose: 10 mg Clopidogrel Bisulfate (Clopidogrel Bisulfate 75 Mg Tablet) 75 mg PO DAILY [facility] Last Admin: 08/25/24 09:14 Dose: 75 mg Cyclobenzaprine HCl (Cyclobenzaprine Hcl 10 Mg Tablet) 10 mg PO DAILY PRN PRN Reason: muscle spasms Last Admin: 08/25/24 11:25 Dose: 10 mg Fluticasone Propionate (Fluticasone Propionate Nasal 16 Gm [place]) 1 spray NOSTRIL-B BID PRN PRN Reason: allergies Fluticasone/Umeclidinium/Vilanterol (Fluticasone/Umeclidinium/Vilanterol 100/62.5/25 Blst.W.Dev) 1 puff INHALE DAILY [facility] Last Admin: 08/25/24 08:39 Dose: 1 puff Sodium Chloride (Ns) 1,000 mls @ 999 mls/hr IV .Q1H1M [facility] Stop: 08/25/24 18:00 Last Admin: 08/25/24 17:02 Dose: 999 mls/hr Levalbuterol HCl (Levalbuterol Hcl 1.25 Mg/3 Ml Vial.Neb) 1.25 mg INHALE TID PRN PRN Reason: Shortness Of Breath Or Wheezing Losartan Potassium (Losartan Potassium 50 Mg Tablet) 50 mg PO BEDTIME [facility]; Protocol Last Admin: 08/24/24 20:15 Dose: 50 mg Magnesium Hydroxide (Milk Of Magnesia 30 Ml Oral.Susp) 30 ml PO DAILY PRN PRN Reason: No Bm for three days Last Admin: 08/22/24 22:17 Dose: 30 ml Metoprolol Tartrate (Metoprolol Tartrate 25 Mg Tablet) 25 mg PO BID [facility]; Protocol Last Admin: 08/25/24 08:51 Dose: 25 mg Nicotine (Nicotine 7 Mg Patch.Td24) 7 mg TRANSDERMA DAILY [facility] Last Admin: 08/25/24 09:23 Dose: 7 mg Nystatin (Nystatin Oral Susp 500,000 Unit/5 Ml Oral.Susp) 400,000 unit PO QID [facility]; Protocol Last Admin: 08/25/24 12:22 Dose: 400,000 unit Olanzapine (Olanzapine 5 Mg Tablet) 5 mg PO Q6H PRN PRN Reason: agitation Last Admin: 08/25/24 14:31 Dose: 5 mg Omeprazole (Omeprazole 20 Mg Capsule.Dr) 20 mg PO DAILY@0630 [facility] Last Admin: 08/25/24 06:32 Dose: 20 mg Ondansetron HCl (Ondansetron Odt 4 Mg Tab.Rapdis) 4 mg TRANSLINGU Q8H PRN PRN Reason: Nausea and Vomiting Oxycodone HCl (Oxycodone Hcl Immed Release 5 Mg Tablet) 10 mg PO Q4H PRN PRN Reason: Pain (Scale Score 4-6) Last Admin: 08/24/24 09:15 Dose: 10 mg Risperidone (Risperidone 0.5 Mg Tablet) 0.5 mg PO BID [facility] Last Admin: 08/25/24 09:14 Dose: 0.5 mg Roflumilast (Roflumilast 500 Mcg Tablet) 500 mcg PO DAILY [facility] Last Admin: 08/25/24 09:14 Dose: 500 mcg Sertraline HCl (Sertraline Hcl 50 Mg Tablet) 50 mg PO DAILY [facility] Last Admin: 08/25/24 09:14 Dose: 50 mg Sodium Biphosphate/Sodium Phosphate (Sodium Phosphate,Ford-Dibasic 133 Ml Enema) 133 ml DE DAILY PRN PRN Reason: step 3-no BM after 8h after Bi Vitamin D (Cholecalciferol (Vitamin D3) 25 Mcg Tablet) 50 mcg PO DAILY [facility] Last Admin: 08/25/24 08:49 Dose: 50 mcg Allergies Allergies Allergy/AdvReac Type Severity Reaction Status Date / Time codeine [CODEINE] Allergy Unknown Hives Verified 08/20/24 17:59 Assessment & Plan Assessment & Plan (1) Encephalopathy: Qualifiers: Encephalopathy type: toxic metabolic Qualified Code(s): G92.8 - Other toxic encephalopathy Status: Acute Code(s): G93.40 - Encephalopathy, unspecified Plan Mrs. Leslie is a 73 year-old woman who recently was medically admitted after a fall and sustain fracture, underwent hip surgery 07/12/2024, was discharged on 07/24/2024 to [facility], per granddaughter patient has been presenting as increasingly more confused, somewhat paranoid at times. Pt presents with s/s of delirium with poor attention, fluctuating levels of orientation. She was seen by this sports writer prior to surgery due to patient presenting with visual hallucinations that at the time she was seen the following day, they had cleared on 07/10/2024. At the time, thought was morphine and again she had cleared and was then fully oriented. Her presentation now, regardless of whether there is an underlying neurocognitive disorder, is consistent with delirium of unclear etiology as medical work up unremarkable for acute findings. She does have a hx of MS, MRI may be able to show if any exacerbation of MS may be culprit. PLAN 08/22 continues to present as delirious, not oriented to place, situation, less talkative today. Per nursing, last night up combative. She is alert today. MRI did not show any additional findings. discussed with granddaughter starting low dose risperidone 0.5mg po BID. 08/23 pt presents more organized than days prior, attention is better, still confused about where she is and why, but able to tell month and year. 08/24 again poor attention, not oriented to place, month or year. prolonged delirium of unclear nature. consult neurology if they offer additional insights. 08/25 discussed admission to [facility] for stabilization of combative behaviors, psychosis in setting of delirum. will change risperidone to olanzapine as it seemed to work better for her. Total time managing care of this patient today ____ minutes.
--- NOTE | 2024-08-25 17:28 | MHC.EDTECH ---
pt had a little bit of her pudding but has not touch her food yet
--- NOTE | 2024-08-25 18:28 | MHC.EDTECH ---
pt is currently eating dinner that her brought her
--- NOTE | 2024-08-25 18:46 | PC.NURSE ---
pt visitting with and he brought her burger and fries with a shake, pt has been eating most of it , will draw labs when done eating/end of visit
[2024-08-25 19:26] LABS: MANUAL DIFF FLAG NO
[2024-08-25 19:28] LABS: Basophils Percent Auto 0.2 % (0-2); Eosinophils Absolute Auto 0.1 X10*3/uL (0.0-0.4); Eosinophils Percent Auto 0.7 % (0-4); Hematocrit 30.4 % (37.0-47.0); Hemoglobin 9.8 g/dl (12.0-16.0); Imm Gran Abs Auto 0.04 X10*3/uL (0.00-0.03); Imm Gran Pct Auto 0.4 % (0.0-0.4); Lymphocytes Absolute Auto 1.6 X10*3/uL (1.2-4.9); Lymphocytes Percent Auto 14.9 % (20-40); Mean Corpuscular HGB Conc 32.2 g/dl (31.0-35.0); Mean Corpuscular Hemoglobin 30.4 pg (27.0-33.0); Mean Corpuscular Volume 94.4 fL (80.0-98.0); Mean Platelet Volume 9.5 fL (9.4-12.3); Monocytes Absolute Auto 0.6 X10*3/uL (0.1-1.2); Monocytes Percent Auto 6.1 % (2-11); Neutrophils Absolute Auto 8.1 x10*3/uL (2.0-8.3); Neutrophils Percent Auto 77.7 % (45-73); Platelet Count 394 X10*3/uL (160-400); Red Blood Count 3.22 X10*6/uL (4.20-5.50); Red Cell Distribution Width 13.8 % (11.0-16.0); White Blood Count 10.5 X10*3/uL (4.8-10.8)
--- NOTE | 2024-08-25 19:36 | PC.NURSE ---
Addendum entered by Jennifer Barker RN 08/26/24 06:27: pt remained restless in bed and conversing out loud with imaginary people throughout most of the shift. Condition has remained unchanged. Pt continues to make attempts to get out of bed but able to be redirected. Bed alarm is on and sitter is in place. Pts needs met at this time, call [facility] is within reach, plan of care ongoing Addendum entered by Jennifer Barker RN 08/26/24 05:35: Pt's O2 nasal cannula was off pt noted to be 96% on room air. Changed pts sheets, brief, and pads with EDT. During change pts skin tear began to bleed a little, applied clean dry dressing, bleeding controlled. Also noted pts nicotine patch was off in the pads on the sheet. pt alert and awake in bed conversing with imaginary people. sitter is in place. bed alarm is on Addendum entered by Jennifer Barker RN 08/26/24 01:08: pt trying to get out of bed, able to redirect pt back into bed. changed pts sheet, pads, gown and brief with EDT, purwick in place . pt noted to have small skin tear to right elbow, bleeding controlled and bandaid applied. pt denying any pain at this time. pt currently awake in stretcher talking to self and imaginary people. Addendum entered by Jennifer Barker RN 08/25/24 20:37: pt becoming increasingly agitated, combative and screaming out. gave PRN zyprexa 5 mg for agitation. Original Note: Assumed care of pt at 1900. Pt awake, alert and pleasantly confused. Pt allowed this RN to draw labs. Family member is bedside. Pts needs met at this time and call [facility] is within reach. plan of care ongoing
[2024-08-25 19:45] LABS: Alanine Aminotransferase 32 U/L (0-31); Albumin Level 3.7 g/dL (3.5-5.0); Alkaline Phosphatase 181 U/L (39-117); Anion Gap 12 (12-20); Aspartate Amino Transferase 22 U/L (5-31); Bilirubin Total 0.3 mg/dL (0.0-1.0); Blood Urea Nitrogen 10 mg/dL (9-16); Calcium 8.9 mg/dL (8.4-10.2); Carbon Dioxide 28 mmol/L (22-29); Chloride 111 mmol/L (96-108); Creatinine Clr Calc Pharmacy 59.9; Estimated Glomerular Filt Rate > 60; Glucose Random 108 mg/dL (60-115); Potassium 3.1 mmol/L (3.3-5.1); Sodium 148 mmol/L (135-145); Total Protein 6.6 g/dL (6.5-8.0)
[2024-08-25] MEDS: Losartan Potassium 50 MG TABLET PO (20:13)
[2024-08-25] MEDS: oxyCODONE HCl Immed Release 5 MG TABLET 10 MG PO (20:14)
[2024-08-25] MEDS: Atorvastatin Calcium 80 MG TABLET PO (20:15)
[2024-08-26 05:19] VITALS: BP 168/80; PULSE 85; RESP 18; TEMP 36.7; O2SAT 96
[2024-08-26] MEDS: Omeprazole 20 MG CAPSULE.DR PO (06:09)
--- NOTE | 2024-08-26 07:17 | MHC.CM.ED ---
Patient remains in ER overflow. Received notification of potential admisssion to [facility]. Continue to monitor for d/c needs.
[2024-08-26 09:02] VITALS: PULSE 108; RESP 18; O2SAT 98
[2024-08-26] MEDS: Fluticasone/Umeclidinium/Vilanterol 100/62.5/25 BLST.W.DEV 1 PUFF INHALE (09:02)
[2024-08-26 09:46] VITALS: BP 167/75; PULSE 102; RESP 18; TEMP 36.8; O2SAT 98
[2024-08-26] MEDS: risperiDONE 0.5 MG TABLET PO (09:48)
[2024-08-26] MEDS: Roflumilast 500 MCG TABLET PO (09:48)
[2024-08-26] MEDS: Metoprolol Tartrate 25 MG TABLET PO ×2 (09:48→21:47)
[2024-08-26] MEDS: Cholecalciferol (Vitamin D3) 25 MCG TABLET 50 MCG PO (09:48)
[2024-08-26] MEDS: busPIRone HCl 10 MG TABLET PO (09:48)
[2024-08-26] MEDS: Nystatin Oral Susp 500,000 UNIT/5 ML ORAL.SUSP 400000 UNIT PO ×2 (09:49→21:40)
[2024-08-26] MEDS: amLODIPine Besylate 10 MG TABLET PO (09:49)
[2024-08-26] MEDS: Clopidogrel Bisulfate 75 MG TABLET PO (10:34)
[2024-08-26] MEDS: Sertraline HCL 50 MG TABLET PO (10:34)
[2024-08-26] MEDS: Aspirin 325 MG TABLET PO ×2 (10:34→21:48)
[2024-08-26] MEDS: Nicotine 7 MG PATCH.TD24 TRANSDERMA (10:50)
--- NOTE | 2024-08-26 12:49 | PC.NURSE ---
pt's right elbow skin tear seeping through the bandage, dressing changed and the area cleaned up, pt's upper extremities and lower extremities are covered in old bruises
--- NOTE | 2024-08-26 13:02 | P.HPPS_ITS ---
HPI Date of Service: 08/26/24 Chief Complaint: paranoia Sources of Information: patient interviewed, chart reviewed and crisis/core team assessment reviewed Additional Sources of Information: granddaughter, Ayla [facility] Subjective Notes: Hernandez Warning and Section 12B Narrative: Mrs. Leslie is a 73 year-old woman who recently had hip surgery on 07/12/2024 after hip fracture here at [facility] and was sent to [facility] from the hospital. She has been presenting as more confused, disorganized behavior, some paranoid ideas which is not her usual. 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 Pertinent labs in the ED include: cbc which shows chronic leukocytosis (not currently on steroids, unclear etiology), elevated Plt count 444, chronic normocytic anemia, CMP without electrolyte abnormalities, BUN 10, Cr 0.66, creatinine clearance 58.1, AST 26, ALT slightly elevated 49, Alk phos 191, ammonia 20, UA does not show signs of UTI. Head CT on 08/21 without acute findings. Pt is known to psychiatry and this underwriter mortgage loan through previous assessment of hallucination while admitted medically to the unit in the setting of delirium back in 07/10/2024. at the time she had presented much improved with no overt signs of delirium. While in the ED, pt was observed talking to someone who was not there. She also presented with paranoid ideas, combative at times. Her orientation for the most part noted to be impaired to month, place, year and situation. On the unit, she presents as calm. She is able to tell this underwriter mortgage loan that she is at [facility], knows the month and the year and asks this underwriter mortgage loan what the visitation hours are in case her family wants to visit her. This is the most lucid I have seen her since she arrived to the ED on 08/20/24. She denies any concerns. No overt psychosis or delusional statements, but this can change. Past Psychiatric History: Denies history of inpatient psychiatric hospitalization. Obtain psychiatric medications from her PCP. Medical Evaluation Reviewed: Yes [facility] Medical History MDD (major depressive disorder), recurrent episode Essential hypertension Leukocytosis History of CAD (coronary artery disease) Peripheral vascular disease Chronic back pain GERD (gastroesophageal reflux disease) High cholesterol HTN (hypertension) Immune disorder COPD (chronic obstructive pulmonary disease) Multiple sclerosis Surgical History History of angioplasty History of heart artery stent Family History: depression Social History: lives with , 2 children who are . retired from [employer] office. Substance History: none Trauma History: yes Diagnostics Vital Signs (24Hr): Vital Signs - 24 hr 08/25/24 14:39 08/25/24 20:00 08/25/24 20:13 Temperature 98.0 F Pulse Rate 93 101 H Respiratory Rate 18 16 Blood Pressure 166/79 H 125/65 125/65 Pulse Oximetry 100 95 Oxygen Delivery Method Nasal Cannula Nasal Cannula Oxygen Flow Rate 2 2 08/25/24 20:15 08/26/24 05:19 08/26/24 09:02 Temperature 98.1 F Pulse Rate 101 H 85 108 H Respiratory Rate 18 18 Blood Pressure 125/65 168/80 H Pulse Oximetry 96 Oxygen Delivery Method Room Air Oxygen Flow Rate 08/26/24 09:46 Temperature 98.3 F Pulse Rate 102 H Respiratory Rate 18 Blood Pressure 167/75 H Pulse Oximetry 98 Oxygen Delivery Method Nasal Cannula Oxygen Flow Rate 1 BMI result Body Mass Index 22.0 Labs 08/25/24 19:22 08/26/24 14:00 Labs: Laboratory Results - last 48 hr 08/24/24 08/25/24 21:46 19:22 WBC 10.5 RBC 3.22 L Hgb 9.8 L Hct 30.4 L MCV 94.4 MCH 30.4 MCHC 32.2 RDW 13.8 Plt Count 394 MPV 9.5 Immature Gran % (Auto) 0.4 Neut % (Auto) 77.7 H Lymph % (Auto) 14.9 L Pender % (Auto) 6.1 Eos % (Auto) 0.7 Baso % (Auto) 0.2 Lymph # (Auto) 1.6 Pender # (Auto) 0.6 Eos # (Auto) 0.1 Baso # (Auto) 0.0 Abs Immat Gran (auto) 0.04 H Absolute Neuts (auto) 8.1 Absolute Nucleated RBC 0.000 Nucleated RBC % (auto) 0.0 Sodium 148 H 148 H Potassium 3.5 D 3.1 L Chloride 111 H 111 H Carbon Dioxide 28 28 Anion Gap 13 12 BUN 9 10 Creatinine 0.57 0.64 Estim Creat Clear Calc 67.3 59.9 Estimated GFR > 60 > 60 Random Glucose 107 108 Calcium 9.3 8.9 Magnesium 1.8 Total Bilirubin 0.3 AST 22 ALT 32 H Alkaline Phosphatase 181 H Total Protein 6.6 Albumin 3.7 Meds/Allergies Meds Home Medications ?Medication ?Instructions ?Recorded ?Confirmed ?Type buspirone 10 mg tablet 10 mg PO BID 11/15/22 08/21/24 History [id number]-hvpvxwja 1 cap PO Q24H PRN Headache 11/15/22 08/21/24 History 50 mg-300 mg-40 mg capsule cholecalciferol (vitamin D3) 50 50 mcg PO DAILY 11/15/22 08/21/24 History mcg (2,000 unit) capsule clopidogrel 75 mg tablet 75 mg PO DAILY 11/15/22 08/21/24 History erenumab-aooe 140 mg/mL 140 mg subcut Q28D 11/15/22 08/21/24 History subcutaneous auto-injector (Aimovig Autoinjector) esomeprazole magnesium 40 mg 40 mg PO DAILY@0630 11/15/22 08/21/24 History capsule,delayed release fluticasone fur. 100 mcg-umeclid 1 ea inhalation DAILY 11/15/22 08/21/24 History 62.5 mcg-vilant 25 mcg inhalat.powder (Trelegy Ellipta) fluticasone propionate 50 1 spray intranasal Q12H PRN 11/15/22 08/21/24 History mcg/actuation nasal allergies spray,suspension immun glob G 10 50 ml subcut MCKENZIE@0900 11/15/22 08/21/24 History gram/50mL(20%)-gly-IgA over 50 mcg/mL subcutaneous suzanna (Cuvitru) levalbuterol HCl 1.25 mg/0.5 mL 1.25 mg inhalation Q8H PRN 11/15/22 08/21/24 History solution for nebulization Shortness Of Breath Or Wheezing metoprolol tartrate 25 mg tablet 25 mg PO BID 11/15/22 08/21/24 History nitroglycerin 0.4 mg sublingual 0.4 mg sublingual Q5M PRN Chest 11/15/22 08/21/24 History tablet Pain ocrelizumab 30 mg/mL intravenous 600 mg IV [id number] 11/15/22 08/21/24 History solution bupropion HCl 150 mg tablet,12 hr 150 mg PO BID 07/07/24 08/22/24 History sustained-release cyclobenzaprine 10 mg tablet 10 mg PO DAILY PRN muscle spasms 07/07/24 08/21/24 History ipratropium 0.5 mg-albuterol 3 mg 3 ml inhalation Q6H PRN wheezing 07/07/24 08/21/24 History (2.5 mg base)/3 mL nebulization soln roflumilast 500 mcg tablet 500 mcg PO DAILY 07/07/24 08/21/24 History rosuvastatin 40 mg tablet 40 mg PO BEDTIME 07/07/24 08/21/24 History sertraline 50 mg tablet 50 mg PO DAILY 07/07/24 08/21/24 History acetaminophen 325 mg tablet 650 mg PO Q6H PRN pain or fever 08/20/24 08/21/24 History greater than 100.0f bisacodyl 10 mg rectal suppository 10 mg MN NEEDED PRN step 2 if 08/20/24 08/21/24 History no BM 8 hours after MOM magnesium hydroxide 400 mg/5 mL 30 ml PO NEEDED PRN No Bm for 08/20/24 08/21/24 History oral suspension (Milk of Magnesia) three days ondansetron HCl 4 mg tablet 4 mg PO Q8H PRN nausea/vomitting 08/20/24 08/21/24 History sodium phosphates 19 gram-7 118 ml MN DAILY PRN step 3-no BM 08/20/24 08/21/24 History gram/118 mL enema (Fleet Enema) after 8h after Bisacodyl supp menthol 5 % topical patch (Cold 1 patch topical DAILY 08/21/24 08/21/24 History and Hot (menthol)) nicotine 7 mg/24 hr daily 1 patch transdermal DAILY 08/21/24 08/21/24 History transdermal patch Allergies Allergies Allergy/AdvReac Type Severity Reaction Status Date / Time codeine [CODEINE] Allergy Unknown Hives Verified 08/20/24 17:59 Mental Status Exam Mental Status Exam Narrative: Appearance: wearing hospital gown, good hygiene, in NAD behavior: calm Psychomotor: no agitation or retardation noted Speech: mostly clear, regular rate/rhythm/volume, spontaneous TP: more linear TC: knows she is in hospital Mood: okay Affect: congruent SI: none HI: none VH/AH: no overt signs Delusions: no overt Insight/judgment: improving x 2 Memory/cog: alert, able to say she was at [facility], she knew the year, month, orientation to situation as to what brought her here is poor. Fluctuation again as later she reported to that she was at [facility]. Assessment & Plan Assessment & Plan (1) Encephalopathy: Status: Acute Qualifiers: Encephalopathy type: toxic metabolic Qualified Code(s): G92.8 - Other toxic encephalopathy Code(s): G93.40 - Encephalopathy, unspecified (2) Major neurocognitive disorder: Status: Acute Code(s): F03.90 - Unspecified dementia, unspecified severity, without behavioral disturbance, psychotic disturbance, mood disturbance, and anxiety Plan Mrs. Leslie is a 73 year-old woman who recently was medically admitted after a fall and sustain fracture, underwent hip surgery 07/12/2024, was discharged on 07/24/2024 to [facility], per granddaughter patient has been presenting as increasingly more confused, somewhat paranoid at times. Pt presents with s/s of delirium with poor attention, fluctuating levels of orientation. She was seen by this underwriter mortgage loan prior to surgery due to patient presenting with visual hallucinations that at the time she was seen the following day, they had cleared on 07/10/2024. Her presentation now, regardless of whether there is an underlying neurocognitive disorder, is consistent with delirium of unclear etiology as medical work up unremarkable for acute findings. She was also seen by neurology who did not recommend further work up but symptomatic management. Pt has been seen by this underwriter mortgage loan in the ED, pt noted to have fluctuating changes in orientation. Today, she presents as most lucid I have seen her she she came to the [facility]. It does seem that olanzapine may be more helpful that risperidone, so will change to olanzapine 5mg po BID, with additional PRN doses. PLAN 1. Admit to S1, Sect 12b, 5 mins checks 2. d/c risperidone, start olanzapine 5mg po BID, prn olanzapine 3. aftercare planning. Patient educated on: diagnosis and medication risk/benefits Reason for continued inpatient stay Substantial Risk for: inability to function Statement Statement: I have reviewed the history and physical and performed a pertinent examination on my patient. No changes have occurred unless specified. If the History and Physical was not performed prior to admission, the Hospitalist's service will be consulted for completing the admission physical. Time Spent With Patient Time: Total time managing care of this patient today ____ minutes.
--- NOTE | 2024-08-26 13:15 | PC.NURSE ---
report given to Marissa Chavez in [facility]
[2024-08-26 14:26] LABS: Alanine Aminotransferase 26 U/L (0-31); Albumin Level 3.3 g/dL (3.5-5.0); Alkaline Phosphatase 160 U/L (39-117); Anion Gap 10 (12-20); Aspartate Amino Transferase 21 U/L (5-31); Bilirubin Total 0.2 mg/dL (0.0-1.0); Blood Urea Nitrogen 10 mg/dL (9-16); Calcium 8.9 mg/dL (8.4-10.2); Carbon Dioxide 27 mmol/L (22-29); Chloride 110 mmol/L (96-108); Creatinine Clr Calc Pharmacy 62.9; Estimated Glomerular Filt Rate > 60; Glucose Fasting 130 mg/dL (60-99); Sodium 144 mmol/L (135-145); Total Protein 5.9 g/dL (6.5-8.0)
[2024-08-26 15:50] VITALS: BP 151/73; PULSE 88; TEMP 36.4; O2SAT 98
--- NOTE | 2024-08-26 16:08 | MHC.CLN ---
NUTRITION ADM FROM [facility] ED STAY. NUTRITION CONSULT ORDERED. RECOMMEND CHANGE DIET FROM CARDIAC TO REGULAR TO PROMOTE PO INTAKE. SAFETY TRAY DISCONTINUED SINCE PATIENT WILL EAT SUPERVISED ON [facility]. RD TO FOLLOW UP WEEKLY.
--- NOTE | 2024-08-26 16:53 | PM.EVENT ---
Event Note Date of Service: 08/26/24 Event Note: Patient currently taking full-dose aspirin 325 mg twice daily in addition to Plavix 75 mg daily. She is currently taking the full dose aspirin for DVT prophylaxis following an ORIF on 07/12 and was advised to continue this for 5 weeks. She has been taking Plavix 75 mg as well. She is on dual antiplatelet therapy at baseline due to peripheral arterial disease. Per psychiatric provider, the patient has a number of bruises on her body. Will discontinue full-dose aspirin on Saturday as she will have completed the 5 weeks recommended by Orthopedic surgery for DVT prophylaxis. Will hold Plavix for now. Resume Plavix 75 mg and aspirin 81 mg on Saturday morning. Discussed with psychiatric provider. Time Spent With Patient Time: Total time managing care of this patient today ____ minutes.
[2024-08-26] MEDS: OLANZapine 5 MG TABLET PO ×2 (17:43→21:48)
--- NOTE | 2024-08-26 18:27 | PC.NURSE ---
CORRECTION Upon arrival on the unit patient appeared to have scattered bruises on bilateral upper extremities as well as multiple open areas which had been bandaged. This was not documented on the admission assessment due to error.
--- NOTE | 2024-08-26 18:29 | PC.ADMIT ---
Addendum entered by Biju Apodaca RN 08/26/24 18:57: Pt's HCP is her . Document is under legal on pt's chart. Original Note: Pt arrived on the unit at 13:50 from ED overflow via stretcher on a 12B for the treatment of altered mental status. Precipitants of this admission include a hip surgery 8 weeks prior after which patient became AOx1, confused, agitated, and with altered mentation. Per crisis assessment and granddaughter pt was completely independent, capable of doing her ADLs , and fully oriented before the hip surgery. Pt stayed in a SNF/Rehabilitation center for weeks before being brought here. Pt is allergic to codeine. Pt was unable to sign documents or participate in admission assessment. Pt was combative in the ED due to confusion. Skin check completed and pt has multiple scattered bruises and open areas in her bilateral arms. Pt is on 1 Liter of O2 via nasal canula and has a hx of COPD, and CHF. She is on a 1:1 for safety.
[2024-08-26] MEDS: oxyCODONE HCl Immed Release 5 MG TABLET 10 MG PO (18:41)
[2024-08-26 21:45] VITALS: BP 132/59; PULSE 121; RESP 18; TEMP 36.6; O2SAT 97
[2024-08-26] MEDS: Atorvastatin Calcium 80 MG TABLET PO (21:48)
[2024-08-26] MEDS: traZODone HCL 50 MG TABLET PO (21:49)
[2024-08-26] MEDS: Losartan Potassium 50 MG TABLET PO (21:49)
[2024-08-27] MEDS: Omeprazole 20 MG CAPSULE.DR PO (07:01)
[2024-08-27 08:00] VITALS: BP 123/59; PULSE 101; RESP 20; TEMP 36.6; O2SAT 99
[2024-08-27] MEDS: Metoprolol Tartrate 25 MG TABLET PO ×2 (08:19→19:49)
[2024-08-27] MEDS: Roflumilast 500 MCG TABLET PO (08:19)
[2024-08-27] MEDS: Aspirin 325 MG TABLET PO ×2 (08:19→19:48)
[2024-08-27] MEDS: amLODIPine Besylate 10 MG TABLET PO (08:20)
[2024-08-27] MEDS: Sertraline HCL 50 MG TABLET PO (08:20)
[2024-08-27] MEDS: Nicotine 7 MG PATCH.TD24 TRANSDERMA (08:20)
[2024-08-27] MEDS: OLANZapine 5 MG TABLET PO ×2 (08:20→19:49)
[2024-08-27] MEDS: Cholecalciferol (Vitamin D3) 25 MCG TABLET 50 MCG PO (08:20)
[2024-08-27 08:29] LABS: Estimated Average Glucose 111 mg/dL; Hemoglobin A1C 80.0241 umol/L; Hemoglobin A1c % 5.5 % (<6.0); Total Hemoglobin (HGBA1C) 2175.8147 umol/L
[2024-08-27] MEDS: Fluticasone/Umeclidinium/Vilanterol 100/62.5/25 BLST.W.DEV 1 PUFF INHALE (08:35)
[2024-08-27 08:36] LABS: Cholesterol 126 mg/dL (<200); HDL Cholesterol 48 mg/dL (>40); LDL Cholesterol Calculated 56 mg/dL (<100); Magnesium 1.6 mg/dL (1.6-2.6); Triglycerides 112 mg/dL (<150)
[2024-08-27 08:52] LABS: Thyroid Stimulating Hormone 1.61 uIU/mL (0.32-4.0)
[2024-08-27 09:05] LABS: Folate 6.2 ng/mL (> or = 4.0); Vitamin B12 591 pg/mL (200-900)
[2024-08-27] MEDS: Nystatin Oral Susp 500,000 UNIT/5 ML ORAL.SUSP 400000 UNIT PO (10:39)
[2024-08-27] MEDS: Cyclobenzaprine HCl 10 MG TABLET PO (10:40)
--- NOTE | 2024-08-27 11:23 | HO.PSYCHPN ---
Subjective Subjective Date of Service: 08/27/24 Reason For Visit: paranoia Interim History: c/o depression, states zoloft has not been helpful. [id number], interview moved from milieu to OT room. asking to go to rehab ([facility], where she came from). does not appear top appreciate her circumstance. per staff, requires 1:1 care. Mental Status Exam Mental Status Exam Narrative: Appearance: wearing hospital gown, good hygiene, in NAD behavior: calm Psychomotor: no agitation or retardation noted Speech: mostly clear, regular rate/rhythm/volume, spontaneous TP: more linear TC: knows she is in hospital Mood: i'm very depressed Affect: constricted, appears anxious SI: none HI: none VH/AH: no overt signs Delusions: no overt Insight/judgment: improving x 2 Memory/cog: impaired Diagnostics Vital Signs (24Hr): Vital Signs - 24 hr 08/26/24 15:50 08/26/24 21:45 08/27/24 08:00 Temperature 97.6 F 97.8 F 97.9 F Pulse Rate 88 121 H 101 H Respiratory Rate 18 20 Blood Pressure 151/73 H 132/59 L 123/59 L Pulse Oximetry 98 97 99 Oxygen Delivery Method Nasal Cannula Nasal Cannula Nasal Cannula Oxygen Flow Rate 1 1 BMI result Body Mass Index 22.0 Labs 08/25/24 19:22 08/26/24 14:00 Labs: Laboratory Results - last 48 hr 08/25/24 08/26/24 08/27/24 19:22 14:00 08:03 WBC 10.5 RBC 3.22 L Hgb 9.8 L Hct 30.4 L MCV 94.4 MCH 30.4 MCHC 32.2 RDW 13.8 Plt Count 394 MPV 9.5 Immature Gran % (Auto) 0.4 Neut % (Auto) 77.7 H Lymph % (Auto) 14.9 L [place] % (Auto) 6.1 Eos % (Auto) 0.7 Baso % (Auto) 0.2 Lymph # (Auto) 1.6 [place] # (Auto) 0.6 Eos # (Auto) 0.1 Baso # (Auto) 0.0 Abs Immat Gran (auto) 0.04 H Absolute Neuts (auto) 8.1 Absolute Nucleated RBC 0.000 Nucleated RBC % (auto) 0.0 Sodium 148 H 144 Potassium 3.1 L 3.0 L Chloride 111 H 110 H Carbon Dioxide 28 27 Anion Gap 12 10 L BUN 10 10 Creatinine 0.64 0.61 Estim Creat Clear Calc 59.9 62.9 Estimated GFR > 60 > 60 Random Glucose 108 Fasting Glucose 130 H Estimat Average Glucose Hemoglobin A1c % Calcium 8.9 8.9 Magnesium 1.6 Total Bilirubin 0.3 0.2 AST 22 21 ALT 32 H 26 Alkaline Phosphatase 181 H 160 H Total Protein 6.6 5.9 L Albumin 3.7 3.3 L Triglycerides 112 Cholesterol 126 LDL Cholesterol, Calc 56 HDL Cholesterol 48 Vitamin B12 591 Folate 6.2 TSH 1.61 08/27/24 08:04 WBC RBC Hgb Hct MCV MCH MCHC RDW Plt Count MPV Immature Gran % (Auto) Neut % (Auto) Lymph % (Auto) [place] % (Auto) Eos % (Auto) Baso % (Auto) Lymph # (Auto) [place] # (Auto) Eos # (Auto) Baso # (Auto) Abs Immat Gran (auto) Absolute Neuts (auto) Absolute Nucleated RBC Nucleated RBC % (auto) Sodium Potassium Chloride Carbon Dioxide Anion Gap BUN Creatinine Estim Creat Clear Calc Estimated GFR Random Glucose Fasting Glucose Estimat Average Glucose 111 Hemoglobin A1c % 5.5 Calcium Magnesium Total Bilirubin AST ALT Alkaline Phosphatase Total Protein Albumin Triglycerides Cholesterol LDL Cholesterol, Calc HDL Cholesterol Vitamin B12 Folate TSH Medications Medications Current Medications Acetaminophen (Acetaminophen 325 Mg Tablet) 650 mg PO Q6H PRN PRN Reason: pain or fever greater than 100.0f Last Admin: 08/25/24 10:44 Dose: 650 mg Acetaminophen (Acetaminophen 325 Mg Tablet) 325 mg PO Q4H PRN PRN Reason: Pain, Moderate(Pain Scale 4-6) Last Admin: 08/24/24 09:17 Dose: 325 mg Acetaminophen/Butalbital/Caffeine (Butalb/Acetamin/Caff 50/325/40 Tablet) 1 tab PO DAILY PRN PRN Reason: Headache Albuterol/Ipratropium (Albuterol/Iprat 2.5/0.5mg 3 Ml Ampul.Neb) 3 ml INHALE QID PRN PRN Reason: wheezing Amlodipine Besylate (Amlodipine Besylate 10 Mg Tablet) 10 mg PO DAILY [facility]; Protocol Last Admin: 08/27/24 08:20 Dose: 10 mg Aspirin (Aspirin 325 Mg Tablet) 325 mg PO BID [facility] Stop: 08/28/24 23:59 Last Admin: 08/27/24 08:19 Dose: 325 mg Aspirin (Aspirin Enteric Coated 81 Mg Tablet.Dr) 81 mg PO DAILY [facility] Atorvastatin Calcium (Atorvastatin Calcium 80 Mg Tablet) 80 mg PO BEDTIME [facility] Last Admin: 08/26/24 21:48 Dose: 80 mg Bisacodyl (Bisacodyl 10 Mg Supp.Rect) 10 mg [place] DAILY PRN PRN Reason: step 2 if no BM 8 hours after MOM Clopidogrel Bisulfate (Clopidogrel Bisulfate 75 Mg Tablet) 75 mg PO DAILY [facility] Last Admin: 08/26/24 10:34 Dose: 75 mg Cyclobenzaprine HCl (Cyclobenzaprine Hcl 10 Mg Tablet) 10 mg PO DAILY PRN PRN Reason: muscle spasms Last Admin: 08/27/24 10:40 Dose: 10 mg Fluticasone Propionate (Fluticasone Propionate Nasal 16 Gm [place]) 1 spray NOSTRIL-B BID PRN PRN Reason: allergies Fluticasone/Umeclidinium/Vilanterol (Fluticasone/Umeclidinium/Vilanterol 100/62.5/25 Blst.W.Dev) 1 puff INHALE RDAILY [facility] Last Admin: 08/27/24 08:36 Dose: Not Given Levalbuterol HCl (Levalbuterol Hcl 1.25 Mg/3 Ml Vial.Neb) 1.25 mg INHALE TID PRN PRN Reason: Shortness Of Breath Or Wheezing Losartan Potassium (Losartan Potassium 50 Mg Tablet) 50 mg PO BEDTIME [facility]; Protocol Last Admin: 08/26/24 21:49 Dose: 50 mg Magnesium Hydroxide (Milk Of Magnesia 30 Ml Oral.Susp) 30 ml PO DAILY PRN PRN Reason: No Bm for three days Last Admin: 08/22/24 22:17 Dose: 30 ml Metoprolol Tartrate (Metoprolol Tartrate 25 Mg Tablet) 25 mg PO BID [facility]; Protocol Last Admin: 08/27/24 08:19 Dose: 25 mg Nicotine (Nicotine 7 Mg Patch.Td24) 7 mg TRANSDERMA DAILY [facility] Last Admin: 08/27/24 08:20 Dose: 7 mg Nystatin (Nystatin Oral Susp 500,000 Unit/5 Ml Oral.Susp) 400,000 unit PO QID [facility]; Protocol Last Admin: 08/27/24 10:39 Dose: 400,000 unit Olanzapine (Olanzapine 5 Mg Tablet) 5 mg PO BID [facility] Last Admin: 08/27/24 08:20 Dose: 5 mg Olanzapine (Olanzapine 10 Mg Tablet) 10 mg PO Q6H PRN PRN Reason: agitation Omeprazole (Omeprazole 20 Mg Capsule.Dr) 20 mg PO DAILY@0630 [facility] Last Admin: 08/27/24 07:01 Dose: 20 mg Ondansetron HCl (Ondansetron Odt 4 Mg Tab.Rapdis) 4 mg TRANSLINGU Q8H PRN PRN Reason: Nausea and Vomiting Oxycodone HCl (Oxycodone Hcl Immed Release 5 Mg Tablet) 10 mg PO Q6H PRN PRN Reason: Pain (Scale Score 4-6) Last Admin: 08/26/24 18:41 Dose: 10 mg Roflumilast (Roflumilast 500 Mcg Tablet) 500 mcg PO DAILY [facility] Last Admin: 08/27/24 08:19 Dose: 500 mcg Sertraline HCl (Sertraline Hcl 50 Mg Tablet) 50 mg PO DAILY [facility] Last Admin: 08/27/24 08:20 Dose: 50 mg Sodium Biphosphate/Sodium Phosphate (Sodium Phosphate,[place]-Dibasic 133 Ml Enema) 133 ml [place] DAILY PRN PRN Reason: step 3-no BM after 8h after Bi Trazodone HCl (Trazodone Hcl 50 Mg Tablet) 50 mg PO BEDTIME MRX1 PRN PRN Reason: Insomnia Last Admin: 08/26/24 21:49 Dose: 50 mg Vitamin D (Cholecalciferol (Vitamin D3) 25 Mcg Tablet) 50 mcg PO DAILY [facility] Last Admin: 08/27/24 08:20 Dose: 50 mcg Allergies Allergies Allergy/AdvReac Type Severity Reaction Status Date / Time codeine [CODEINE] Allergy Unknown Hives Verified 08/20/24 17:59 Assessment & Plan Assessment & Plan (1) Encephalopathy: Qualifiers: Encephalopathy type: toxic metabolic Qualified Code(s): G92.8 - Other toxic encephalopathy Status: Acute Code(s): G93.40 - Encephalopathy, unspecified (2) Major neurocognitive disorder: Status: Acute Code(s): F03.90 - Unspecified dementia, unspecified severity, without behavioral disturbance, psychotic disturbance, mood disturbance, and anxiety Plan Mrs. Leslie is a 73 year-old woman who recently was medically admitted after a fall and sustain fracture, underwent hip surgery 07/12/2024, was discharged on 07/24/2024 to [facility], per granddaughter patient has been presenting as increasingly more confused, somewhat paranoid at times. Pt presents with s/s of delirium with poor attention, fluctuating levels of orientation. She was seen by this technical publications writer prior to surgery due to patient presenting with visual hallucinations that at the time she was seen the following day, they had cleared on 07/10/2024. Her presentation now, regardless of whether there is an underlying neurocognitive disorder, is consistent with delirium of unclear etiology as medical work up unremarkable for acute findings. She was also seen by neurology who did not recommend further work up but symptomatic management. Pt has been seen by this technical publications writer in the ED, pt noted to have fluctuating changes in orientation. Today, she presents as most lucid I have seen her she she [place] [facility] It does seem that olanzapine may be more helpful that risperidone, so will change to olanzapine 5mg po BID, with additional PRN doses. PLAN 1. Admit to S1, Sect 12b, 5 mins checks 2. d/c risperidone, start olanzapine 5mg po BID, prn olanzapine 3. aftercare planning. 08/27: appears unable to appreciate her circumstance very well. c/o depression, saying she has been on zoloft for a long time and it has not worked for her. asking to DC from unit and go to rehab ([facility]). per staff, requiring 1:1 care, status changed to 1:1. Reason for continued inpatient stay Substantial Risk for: inability to function Time Spent With Patient Time: Total time managing care of this patient today __25__ minutes.
[2024-08-27] MEDS: Nystatin Oral Susp 500,000 UNIT/5 ML ORAL.SUSP 500000 UNIT PO ×3 (14:28→19:49)
[2024-08-27] MEDS: oxyCODONE HCl Immed Release 5 MG TABLET 10 MG PO (18:58)
[2024-08-27 19:47] VITALS: BP 119/56; PULSE 104; RESP 16; TEMP 36.4; O2SAT 95
[2024-08-27 19:49] VITALS: BP 119/56; PULSE 104
[2024-08-27] MEDS: Atorvastatin Calcium 80 MG TABLET PO (19:49)
[2024-08-27 19:50] VITALS: BP 119/56
[2024-08-27] MEDS: Losartan Potassium 50 MG TABLET PO (19:50)
[2024-08-27] MEDS: Acetaminophen 325 MG TABLET 650 MG PO (23:04)
[2024-08-28] MEDS: Omeprazole 20 MG CAPSULE.DR PO (05:19)
[2024-08-28 08:00] VITALS: BP 145/64; PULSE 84; RESP 18; TEMP 36; O2SAT 96
[2024-08-28] MEDS: Aspirin 325 MG TABLET PO ×2 (09:05→21:04)
[2024-08-28] MEDS: OLANZapine 5 MG TABLET PO ×2 (09:07→21:06)
[2024-08-28] MEDS: Cholecalciferol (Vitamin D3) 25 MCG TABLET 50 MCG PO (09:08)
[2024-08-28] MEDS: Metoprolol Tartrate 25 MG TABLET PO ×2 (09:08→21:05)
[2024-08-28] MEDS: amLODIPine Besylate 10 MG TABLET PO (09:09)
[2024-08-28] MEDS: Roflumilast 500 MCG TABLET PO (09:09)
[2024-08-28] MEDS: Sertraline HCL 50 MG TABLET PO (09:09)
[2024-08-28] MEDS: Nystatin Oral Susp 500,000 UNIT/5 ML ORAL.SUSP 500000 UNIT PO ×4 (09:10→21:06)
[2024-08-28] MEDS: Nicotine 7 MG PATCH.TD24 TRANSDERMA (09:10)
--- NOTE | 2024-08-28 11:41 | HO.PSYCHPN ---
Subjective Subjective Date of Service: 08/28/24 Reason For Visit: paranoia Subjective Notes: Conditional Voluntary Interim History: Pt slept through the night. She presents more organized in that she is able to tell that she is in the hospital, [facility]. Her orientation to situation is poor in that she thinks she is here for STR. She states she is here because of hip fracture and surgery. She is hesitant to tell this commercial real estate underwriter the month, states it may be September but she is not sure. She then states, maybe August. She knows the year 2024 but then makes a comment about how year is about to end. Her orientation continues to fluctuate. But more organized. Review of Systems Review of Systems Constitutional : No Fever, No Chills, No Fatigue ENT/Mouth : No sore throat, No Rhinorrhea Eyes: No Eye Pain, No Swelling, No Redness Cardiovascular : No Chest Pain, No SOB, No Dyspnea on Exertion Respiratory : No Cough, No Sputum Gastrointestinal : No Nausea, No Vomiting, No Diarrhea, No abdominal Pain Genitourinary : No Dysuria, No Urinary Frequency, No Hematuria, Musculoskeletal : No joint pain, No Myalgias, No Joint Swelling Skin : No Skin Lesions, No rash Neuro : No Weakness, No Numbness, No Dizziness, no Headache All other systems reviewed and are negative Mental Status Exam Mental Status Exam Narrative: Appearance: wearing hospital gown, good hygiene, in NAD behavior: calm Psychomotor: no agitation or retardation noted Speech: mostly clear, regular rate/rhythm/volume, spontaneous TP: more linear TC: knows she is in hospital but thinks it is for STR Mood: good Affect: constricted, appears anxious SI: none HI: none VH/AH: no overt signs Delusions: no overt Insight/judgment: improving x 2 Memory/cog: alert, oriented to idea that she is in the hospital and able to tell that she is at [facility]. She is hesitant about the month and hesitates between september and August finally saying it is August. Able to tell year 2024. Diagnostics Vital Signs (24Hr): Vital Signs - 24 hr 08/27/24 19:47 08/27/24 19:49 08/27/24 19:50 Temperature 97.6 F Pulse Rate 104 H 104 H Respiratory Rate 16 Blood Pressure 119/56 L 119/56 L 119/56 L Pulse Oximetry 95 Oxygen Delivery Method Room Air 03/14/25 08:00 Temperature 96.8 F Pulse Rate 84 Respiratory Rate 18 Blood Pressure 145/64 H Pulse Oximetry 96 Oxygen Delivery Method Room Air BMI result Body Mass Index 22.0 Labs 08/25/24 19:22 08/26/24 14:00 Labs: Laboratory Results - last 48 hr 08/26/24 08/27/24 08/27/24 14:00 08:03 08:04 Sodium 144 Potassium 3.0 L Chloride 110 H Carbon Dioxide 27 Anion Gap 10 L BUN 10 Creatinine 0.61 Estim Creat Clear Calc 62.9 Estimated GFR > 60 Fasting Glucose 130 H Estimat Average Glucose 111 Hemoglobin A1c % 5.5 Calcium 8.9 Magnesium 1.6 Total Bilirubin 0.2 AST 21 ALT 26 Alkaline Phosphatase 160 H Total Protein 5.9 L Albumin 3.3 L Triglycerides 112 Cholesterol 126 LDL Cholesterol, Calc 56 HDL Cholesterol 48 Vitamin B12 591 Folate 6.2 TSH 1.61 Medications Medications Current Medications Acetaminophen (Acetaminophen 325 Mg Tablet) 650 mg PO Q6H PRN PRN Reason: pain or fever greater than 100.0f Last Admin: 08/27/24 23:04 Dose: 650 mg Acetaminophen (Acetaminophen 325 Mg Tablet) 325 mg PO Q4H PRN PRN Reason: Pain, Moderate(Pain Scale 4-6) Last Admin: 08/24/24 09:17 Dose: 325 mg Acetaminophen/Butalbital/Caffeine (Butalb/Acetamin/Caff 50/325/40 Tablet) 1 tab PO DAILY PRN PRN Reason: Headache Albuterol/Ipratropium (Albuterol/Iprat 2.5/0.5mg 3 Ml Ampul.Neb) 3 ml INHALE QID PRN PRN Reason: wheezing Amlodipine Besylate (Amlodipine Besylate 10 Mg Tablet) 10 mg PO DAILY [facility]; Protocol Last Admin: 08/28/24 09:09 Dose: 10 mg Aspirin (Aspirin 325 Mg Tablet) 325 mg PO BID [facility] Stop: 08/28/24 23:59 Last Admin: 08/28/24 09:05 Dose: 325 mg Aspirin (Aspirin Enteric Coated 81 Mg Tablet.) 81 mg PO DAILY [facility] Atorvastatin Calcium (Atorvastatin Calcium 80 Mg Tablet) 80 mg PO BEDTIME [facility] Last Admin: 08/27/24 19:49 Dose: 80 mg Bisacodyl (Bisacodyl 10 Mg Supp.Rect) 10 mg CA DAILY PRN PRN Reason: step 2 if no BM 8 hours after MOM Clopidogrel Bisulfate (Clopidogrel Bisulfate 75 Mg Tablet) 75 mg PO DAILY [facility] Last Admin: 08/26/24 10:34 Dose: 75 mg Cyclobenzaprine HCl (Cyclobenzaprine Hcl 10 Mg Tablet) 10 mg PO DAILY PRN PRN Reason: muscle spasms Last Admin: 08/27/24 10:40 Dose: 10 mg Fluticasone Propionate (Fluticasone Propionate Nasal 16 Gm [place]) 1 spray NOSTRIL-B BID PRN PRN Reason: allergies Fluticasone/Umeclidinium/Vilanterol (Fluticasone/Umeclidinium/Vilanterol 100/62.5/25 Blst.W.Dev) 1 puff INHALE RDAILY [facility] Last Admin: 08/28/24 09:23 Dose: Not Given Levalbuterol HCl (Levalbuterol Hcl 1.25 Mg/3 Ml Vial.Neb) 1.25 mg INHALE TID PRN PRN Reason: Shortness Of Breath Or Wheezing Losartan Potassium (Losartan Potassium 50 Mg Tablet) 50 mg PO BEDTIME [facility]; Protocol Last Admin: 08/27/24 19:50 Dose: 50 mg Magnesium Hydroxide (Milk Of Magnesia 30 Ml Oral.Susp) 30 ml PO DAILY PRN PRN Reason: No Bm for three days Last Admin: 08/22/24 22:17 Dose: 30 ml Metoprolol Tartrate (Metoprolol Tartrate 25 Mg Tablet) 25 mg PO BID [facility]; Protocol Last Admin: 08/28/24 09:08 Dose: 25 mg Nicotine (Nicotine 7 Mg Patch.Td24) 7 mg TRANSDERMA DAILY [facility] Last Admin: 08/28/24 09:10 Dose: 7 mg Nystatin (Nystatin Oral Susp 500,000 Unit/5 Ml Oral.Susp) 500,000 unit PO QID [facility]; Protocol Last Admin: 08/28/24 09:10 Dose: 500,000 unit Olanzapine (Olanzapine 5 Mg Tablet) 5 mg PO BID [facility] Last Admin: 08/28/24 09:07 Dose: 5 mg Olanzapine (Olanzapine 10 Mg Tablet) 10 mg PO Q6H PRN PRN Reason: agitation Omeprazole (Omeprazole 20 Mg Capsule.Dr) 20 mg PO DAILY@0630 [facility] Last Admin: 08/28/24 05:19 Dose: 20 mg Ondansetron HCl (Ondansetron Odt 4 Mg Tab.Rapdis) 4 mg TRANSLINGU Q8H PRN PRN Reason: Nausea and Vomiting Oxycodone HCl (Oxycodone Hcl Immed Release 5 Mg Tablet) 10 mg PO Q6H PRN PRN Reason: Pain (Scale Score 4-6) Last Admin: 08/27/24 18:58 Dose: 10 mg Roflumilast (Roflumilast 500 Mcg Tablet) 500 mcg PO DAILY [facility] Last Admin: 08/28/24 09:09 Dose: 500 mcg Sertraline HCl (Sertraline Hcl 50 Mg Tablet) 50 mg PO DAILY [facility] Last Admin: 08/28/24 09:09 Dose: 50 mg Sodium Biphosphate/Sodium Phosphate (Sodium Phosphate,[place]-Dibasic 133 Ml Enema) 133 ml CA DAILY PRN PRN Reason: step 3-no BM after 8h after Bi Trazodone HCl (Trazodone Hcl 50 Mg Tablet) 50 mg PO BEDTIME MRX1 PRN PRN Reason: Insomnia Last Admin: 08/26/24 21:49 Dose: 50 mg Vitamin D (Cholecalciferol (Vitamin D3) 25 Mcg Tablet) 50 mcg PO DAILY [facility] Last Admin: 08/28/24 09:08 Dose: 50 mcg Allergies Allergies Allergy/AdvReac Type Severity Reaction Status Date / Time codeine [CODEINE] Allergy Unknown Hives Verified 08/20/24 17:59 Assessment & Plan Assessment & Plan (1) Encephalopathy: Qualifiers: Encephalopathy type: toxic metabolic Qualified Code(s): G92.8 - Other toxic encephalopathy Status: Acute Code(s): G93.40 - Encephalopathy, unspecified Assessment and Plan: some improvement in attention and orientation, but fluctuating. More consistent improvement. (2) Major neurocognitive disorder: Status: Acute Code(s): F03.90 - Unspecified dementia, unspecified severity, without behavioral disturbance, psychotic disturbance, mood disturbance, and anxiety Plan Mrs. Leslie is a 73 year-old woman who recently was medically admitted after a fall and sustain fracture, underwent hip surgery 07/12/2024, was discharged on 07/24/2024 to [facility], per granddaughter patient has been presenting as increasingly more confused, somewhat paranoid at times. Pt presents with s/s of delirium with poor attention, fluctuating levels of orientation. She was seen by this commercial real estate underwriter prior to surgery due to patient presenting with visual hallucinations that at the time she was seen the following day, they had cleared on 07/10/2024. Her presentation now, regardless of whether there is an underlying neurocognitive disorder, is consistent with delirium of unclear etiology as medical work up unremarkable for acute findings. She was also seen by neurology who did not recommend further work up but symptomatic management. Pt has been seen by this commercial real estate underwriter in the ED, pt noted to have fluctuating changes in orientation. Today, she presents as most lucid I have seen her she she came to the [facility]. It does seem that olanzapine may be more helpful that risperidone, so will change to olanzapine 5mg po BID, with additional PRN doses. PLAN 1. Admit to S1, Sect 12b, 5 mins checks 2. d/c risperidone, start olanzapine 5mg po BID, prn olanzapine 3. aftercare planning. 08/27: appears unable to appreciate her circumstance very well. c/o depression, saying she has been on zoloft for a long time and it has not worked for her. asking to DC from unit and go to rehab ([facility]). per staff, requiring 1:1 care, status changed to 1:1. 08/28 improvement in orientation, attention and thought process but continues to have fluctuations in orientation but more consistent improvement. no overt psychosis or delusions. She is eating better. requires wheelchair but working with PT. continue olanzapine 5mg po BID. Reason for continued inpatient stay Substantial Risk for: inability to function Time Spent With Patient Time: Total time managing care of this patient today ____ minutes.
[2024-08-28 15:02] VITALS: BP 145/64; PULSE 84; O2SAT 96
[2024-08-28 20:00] VITALS: BP 115/58; PULSE 100; RESP 17; TEMP 36.6; O2SAT 98
[2024-08-28] MEDS: Atorvastatin Calcium 80 MG TABLET PO (21:05)
[2024-08-28] MEDS: Losartan Potassium 50 MG TABLET PO (21:05)
[2024-08-28] MEDS: traZODone HCL 50 MG TABLET PO (22:19)
[2024-08-28] MEDS: Butalb/Acetamin/Caff 50/325/40 TABLET 1 TAB PO (22:45)
[2024-08-29] MEDS: Omeprazole 20 MG CAPSULE.DR PO (06:16)
[2024-08-29 08:00] VITALS: BP 173/75; PULSE 90; RESP 18; TEMP 36.7; O2SAT 95
[2024-08-29] MEDS: Nystatin Oral Susp 500,000 UNIT/5 ML ORAL.SUSP 500000 UNIT PO ×4 (08:30→21:01)
[2024-08-29] MEDS: Cholecalciferol (Vitamin D3) 25 MCG TABLET 50 MCG PO (08:30)
[2024-08-29] MEDS: Aspirin Enteric Coated 81 MG TABLET.DR PO (08:30)
[2024-08-29] MEDS: Sertraline HCL 50 MG TABLET PO (08:31)
[2024-08-29] MEDS: amLODIPine Besylate 10 MG TABLET PO (08:31)
[2024-08-29] MEDS: Roflumilast 500 MCG TABLET PO (08:31)
[2024-08-29] MEDS: Metoprolol Tartrate 25 MG TABLET PO ×2 (08:31→21:00)
[2024-08-29] MEDS: OLANZapine 5 MG TABLET PO ×2 (08:31→21:01)
[2024-08-29] MEDS: Nicotine 7 MG PATCH.TD24 TRANSDERMA (08:46)
[2024-08-29] MEDS: Fluticasone/Umeclidinium/Vilanterol 100/62.5/25 BLST.W.DEV 1 PUFF INHALE (09:03)
[2024-08-29] MEDS: Clopidogrel Bisulfate 75 MG TABLET PO (09:32)
[2024-08-29] MEDS: Acetaminophen 325 MG TABLET 650 MG PO (09:53)
[2024-08-29] MEDS: oxyCODONE HCl Immed Release 5 MG TABLET 10 MG PO (13:35)
[2024-08-29 20:00] VITALS: BP 139/61; PULSE 91; RESP 18; TEMP 36.6; O2SAT 99
[2024-08-29] MEDS: Atorvastatin Calcium 80 MG TABLET PO (21:00)
[2024-08-29] MEDS: Losartan Potassium 50 MG TABLET PO (21:00)
[2024-08-29] MEDS: Butalb/Acetamin/Caff 50/325/40 TABLET 1 TAB PO (21:01)
[2024-08-29] MEDS: traZODone HCL 50 MG TABLET PO (21:02)
--- NOTE | 2024-08-29 23:34 | HO.PSYCHPN ---
Subjective Subjective Date of Service: 08/29/24 Reason For Visit: paranoia Subjective Notes: Conditional Voluntary Interim History: Patient seen in psychiatric follow-up case reviewed which treatment planning chart reviewed patient seen. Patient gradually improving in mood Medication Compliance: Yes Mental Status Exam Mental Status Exam Narrative: Appearance: wearing hospital gown, good hygiene, in NAD behavior: calm Psychomotor: no agitation or retardation noted Speech: mostly clear, regular rate/rhythm/volume, spontaneous TP: more linear TC: knows she is in hospital but thinks it is for STR Mood: good Affect: constricted, appears anxious SI: none HI: none VH/AH: no overt signs Delusions: no overt Insight/judgment: improving x 2 Memory/cog: alert, oriented to idea that she is in the hospital and able to tell that she is at [facility]. She is hesitant about the month and hesitates between september and August finally saying it is August. Able to tell year 2024. Diagnostics Vital Signs (24Hr): Vital Signs - 24 hr 08/29/24 08:00 08/29/24 20:00 Temperature 98.1 F 97.8 F Pulse Rate 90 91 Respiratory Rate 18 18 Blood Pressure 173/75 H 139/61 Pulse Oximetry 95 99 Oxygen Delivery Method Room Air Room Air BMI result Body Mass Index 22.0 Labs 08/25/24 19:22 08/26/24 14:00 Medications Medications Current Medications Acetaminophen (Acetaminophen 325 Mg Tablet) 650 mg PO Q6H PRN PRN Reason: pain or fever greater than 100.0f Last Admin: 08/29/24 09:53 Dose: 650 mg Acetaminophen (Acetaminophen 325 Mg Tablet) 325 mg PO Q4H PRN PRN Reason: Pain, Moderate(Pain Scale 4-6) Last Admin: 08/24/24 09:17 Dose: 325 mg Acetaminophen/Butalbital/Caffeine (Butalb/Acetamin/Caff 50/325/40 Tablet) 1 tab PO DAILY PRN PRN Reason: Headache Last Admin: 08/29/24 21:01 Dose: 1 tab Albuterol/Ipratropium (Albuterol/Iprat 2.5/0.5mg 3 Ml Ampul.Neb) 3 ml INHALE QID PRN PRN Reason: wheezing Amlodipine Besylate (Amlodipine Besylate 10 Mg Tablet) 10 mg PO DAILY [facility]; Protocol Last Admin: 08/29/24 08:31 Dose: 10 mg Aspirin (Aspirin Enteric Coated 81 Mg Tablet.Dr) 81 mg PO DAILY [facility] Last Admin: 08/29/24 08:30 Dose: 81 mg Atorvastatin Calcium (Atorvastatin Calcium 80 Mg Tablet) 80 mg PO BEDTIME [facility] Last Admin: 08/29/24 21:00 Dose: 80 mg Bisacodyl (Bisacodyl 10 Mg Supp.Rect) 10 mg IA DAILY PRN PRN Reason: step 2 if no BM 8 hours after MOM Clopidogrel Bisulfate (Clopidogrel Bisulfate 75 Mg Tablet) 75 mg PO DAILY [facility] Last Admin: 08/29/24 09:32 Dose: 75 mg Cyclobenzaprine HCl (Cyclobenzaprine Hcl 10 Mg Tablet) 10 mg PO DAILY PRN PRN Reason: muscle spasms Last Admin: 08/27/24 10:40 Dose: 10 mg Fluticasone Propionate (Fluticasone Propionate Nasal 16 Gm [place]) 1 spray NOSTRIL-B BID PRN PRN Reason: allergies Fluticasone/Umeclidinium/Vilanterol (Fluticasone/Umeclidinium/Vilanterol 100/62.5/25 Blst.W.Dev) 1 puff INHALE RDAILY [facility] Last Admin: 08/29/24 09:03 Dose: 1 puff Levalbuterol HCl (Levalbuterol Hcl 1.25 Mg/3 Ml Vial.Neb) 1.25 mg INHALE TID PRN PRN Reason: Shortness Of Breath Or Wheezing Losartan Potassium (Losartan Potassium 50 Mg Tablet) 50 mg PO BEDTIME [facility]; Protocol Last Admin: 08/29/24 21:00 Dose: 50 mg Magnesium Hydroxide (Milk Of Magnesia 30 Ml Oral.Susp) 30 ml PO DAILY PRN PRN Reason: No Bm for three days Last Admin: 08/22/24 22:17 Dose: 30 ml Metoprolol Tartrate (Metoprolol Tartrate 25 Mg Tablet) 25 mg PO BID [facility]; Protocol Last Admin: 08/29/24 21:00 Dose: 25 mg Nicotine (Nicotine 7 Mg Patch.Td24) 7 mg TRANSDERMA DAILY [facility] Last Admin: 08/29/24 08:46 Dose: 7 mg Nystatin (Nystatin Oral Susp 500,000 Unit/5 Ml Oral.Susp) 500,000 unit PO QID [facility]; Protocol Last Admin: 08/29/24 21:01 Dose: 500,000 unit Olanzapine (Olanzapine 5 Mg Tablet) 5 mg PO BID [facility] Last Admin: 08/29/24 21:01 Dose: 5 mg Olanzapine (Olanzapine 10 Mg Tablet) 10 mg PO Q6H PRN PRN Reason: agitation Omeprazole (Omeprazole 20 Mg Capsule.Dr) 20 mg PO DAILY@0630 [facility] Last Admin: 08/29/24 06:16 Dose: 20 mg Ondansetron HCl (Ondansetron Odt 4 Mg Tab.Rapdis) 4 mg TRANSLINGU Q8H PRN PRN Reason: Nausea and Vomiting Oxycodone HCl (Oxycodone Hcl Immed Release 5 Mg Tablet) 10 mg PO Q6H PRN PRN Reason: Pain (Scale Score 4-6) Last Admin: 08/29/24 13:35 Dose: 10 mg Roflumilast (Roflumilast 500 Mcg Tablet) 500 mcg PO DAILY [facility] Last Admin: 08/29/24 08:31 Dose: 500 mcg Sertraline HCl (Sertraline Hcl 50 Mg Tablet) 50 mg PO DAILY [facility] Last Admin: 08/29/24 08:31 Dose: 50 mg Sodium Biphosphate/Sodium Phosphate (Sodium Phosphate,[place]-Dibasic 133 Ml Enema) 133 ml IA DAILY PRN PRN Reason: step 3-no BM after 8h after Bi Trazodone HCl (Trazodone Hcl 50 Mg Tablet) 50 mg PO BEDTIME MRX1 PRN PRN Reason: Insomnia Last Admin: 08/29/24 21:02 Dose: 50 mg Vitamin D (Cholecalciferol (Vitamin D3) 25 Mcg Tablet) 50 mcg PO DAILY [facility] Last Admin: 08/29/24 08:30 Dose: 50 mcg Allergies Allergies Allergy/AdvReac Type Severity Reaction Status Date / Time codeine [CODEINE] Allergy Unknown Hives Verified 08/20/24 17:59 Assessment & Plan Assessment & Plan (1) Encephalopathy: Qualifiers: Encephalopathy type: toxic metabolic Qualified Code(s): G92.8 - Other toxic encephalopathy Status: Acute Code(s): G93.40 - Encephalopathy, unspecified Assessment and Plan: some improvement in attention and orientation, but fluctuating. More consistent improvement. (2) Major neurocognitive disorder: Status: Acute Code(s): F03.90 - Unspecified dementia, unspecified severity, without behavioral disturbance, psychotic disturbance, mood disturbance, and anxiety Plan Mrs. Leslie is a 73 year-old woman who recently was medically admitted after a fall and sustain fracture, underwent hip surgery 07/12/2024, was discharged on 07/24/2024 to [facility], per granddaughter patient has been presenting as increasingly more confused, somewhat paranoid at times. Pt presents with s/s of delirium with poor attention, fluctuating levels of orientation. She was seen by this contract technical writer prior to surgery due to patient presenting with visual hallucinations that at the time she was seen the following day, they had cleared on 07/10/2024. Her presentation now, regardless of whether there is an underlying neurocognitive disorder, is consistent with delirium of unclear etiology as medical work up unremarkable for acute findings. She was also seen by neurology who did not recommend further work up but symptomatic management. Pt has been seen by this contract technical writer in the ED, pt noted to have fluctuating changes in orientation. Today, she presents as most lucid I have seen her she she came to the [facility]. It does seem that olanzapine may be more helpful that risperidone, so will change to olanzapine 5mg po BID, with additional PRN doses. PLAN 1. Admit to S1, Sect 12b, 5 mins checks 2. d/c risperidone, start olanzapine 5mg po BID, prn olanzapine 3. aftercare planning. 08/27: appears unable to appreciate her circumstance very well. c/o depression, saying she has been on zoloft for a long time and it has not worked for her. asking to DC from unit and go to rehab ([facility]). per staff, requiring 1:1 care, status changed to 1:1. 08/28 improvement in orientation, attention and thought process but continues to have fluctuations in orientation but more consistent improvement. no overt psychosis or delusions. She is eating better. requires wheelchair but working with PT. continue olanzapine 5mg po BID. 08/29/2024 Patient seems to be clearing improved mentation Reason for continued inpatient stay Substantial Risk for: rapid decompensation Time Spent With Patient Time: Total time managing care of this patient today ____ minutes.
[2024-08-30] MEDS: Omeprazole 20 MG CAPSULE.DR PO (06:19)
[2024-08-30 08:00] VITALS: BP 168/73; PULSE 91; RESP 18; TEMP 36.2; O2SAT 93
[2024-08-30] MEDS: Nystatin Oral Susp 500,000 UNIT/5 ML ORAL.SUSP 500000 UNIT PO ×4 (08:06→21:06)
[2024-08-30] MEDS: Aspirin Enteric Coated 81 MG TABLET.DR PO (08:07)
[2024-08-30] MEDS: Nicotine 7 MG PATCH.TD24 TRANSDERMA (08:07)
[2024-08-30] MEDS: Clopidogrel Bisulfate 75 MG TABLET PO (08:07)
[2024-08-30] MEDS: amLODIPine Besylate 10 MG TABLET PO (08:07)
[2024-08-30] MEDS: Roflumilast 500 MCG TABLET PO (08:07)
[2024-08-30] MEDS: OLANZapine 5 MG TABLET PO ×2 (08:07→21:05)
[2024-08-30] MEDS: Sertraline HCL 50 MG TABLET PO (08:08)
[2024-08-30] MEDS: Metoprolol Tartrate 25 MG TABLET PO ×2 (08:08→21:04)
[2024-08-30] MEDS: Cholecalciferol (Vitamin D3) 25 MCG TABLET 50 MCG PO (08:08)
[2024-08-30] MEDS: Fluticasone/Umeclidinium/Vilanterol 100/62.5/25 BLST.W.DEV 1 PUFF INHALE (08:15)
[2024-08-30] MEDS: oxyCODONE HCl Immed Release 5 MG TABLET 10 MG PO ×2 (08:53→16:54)
[2024-08-30 20:00] VITALS: RESP 16; TEMP 37; O2SAT 98
[2024-08-30] MEDS: Cyclobenzaprine HCl 10 MG TABLET PO (21:03)
[2024-08-30] MEDS: traZODone HCL 50 MG TABLET PO (21:03)
[2024-08-30 21:04] VITALS: BP 103/61; PULSE 99
[2024-08-30 21:05] VITALS: BP 103/61
[2024-08-30] MEDS: Losartan Potassium 50 MG TABLET PO (21:05)
[2024-08-30] MEDS: Atorvastatin Calcium 80 MG TABLET PO (21:05)
--- NOTE | 2024-08-30 22:55 | HO.PSYCHPN ---
Subjective Subjective Date of Service: 08/30/24 Reason For Visit: paranoia Subjective Notes: Conditional Voluntary Interim History: Patient seen in psychiatric follow-up case reviewed which treatment planning chart reviewed patient seen. Patient gradually improving in mood thoughts clearing hoping to be discharged soon. Has been seen by PT status post hip replacement Medication Compliance: Yes Mental Status Exam Mental Status Exam Narrative: Appearance: wearing hospital gown, good hygiene, in NAD behavior: calm Psychomotor: no agitation or retardation noted Speech: mostly clear, regular rate/rhythm/volume, spontaneous TP: more linear TC: knows she is in a psychiatric hospital Mood: good Affect: constricted, appears anxious SI: none HI: none VH/AH: no overt signs Delusions: no overt Insight/judgment: improving x 2 Memory/co improving alertness memory and cognition Diagnostics Vital Signs (24Hr): Vital Signs - 24 hr 08/30/24 08:00 08/30/24 20:00 08/30/24 21:04 Temperature 97.1 F 98.6 F Pulse Rate 91 99 Respiratory Rate 18 16 Blood Pressure 168/73 H 103/61 Pulse Oximetry 93 98 Oxygen Delivery Method Room Air Room Air 08/30/24 21:05 Temperature Pulse Rate Respiratory Rate Blood Pressure 103/61 Pulse Oximetry Oxygen Delivery Method BMI result Body Mass Index 22.0 Labs 08/25/24 19:22 08/26/24 14:00 Medications Medications Current Medications Acetaminophen (Acetaminophen 325 Mg Tablet) 650 mg PO Q6H PRN PRN Reason: pain or fever greater than 100.0f Last Admin: 08/29/24 09:53 Dose: 650 mg Acetaminophen (Acetaminophen 325 Mg Tablet) 325 mg PO Q4H PRN PRN Reason: Pain, Moderate(Pain Scale 4-6) Last Admin: 08/24/24 09:17 Dose: 325 mg Acetaminophen/Butalbital/Caffeine (Butalb/Acetamin/Caff 50/325/40 Tablet) 1 tab PO DAILY PRN PRN Reason: Headache Last Admin: 08/29/24 21:01 Dose: 1 tab Albuterol/Ipratropium (Albuterol/Iprat 2.5/0.5mg 3 Ml Ampul.Neb) 3 ml INHALE QID PRN PRN Reason: wheezing Amlodipine Besylate (Amlodipine Besylate 10 Mg Tablet) 10 mg PO DAILY [facility]; Protocol Last Admin: 08/30/24 08:07 Dose: 10 mg Aspirin (Aspirin Enteric Coated 81 Mg Tablet.Dr) 81 mg PO DAILY [facility] Last Admin: 08/30/24 08:07 Dose: 81 mg Atorvastatin Calcium (Atorvastatin Calcium 80 Mg Tablet) 80 mg PO BEDTIME [facility] Last Admin: 08/30/24 21:05 Dose: 80 mg Bisacodyl (Bisacodyl 10 Mg Supp.Rect) 10 mg [place] DAILY PRN PRN Reason: step 2 if no BM 8 hours after MOM Clopidogrel Bisulfate (Clopidogrel Bisulfate 75 Mg Tablet) 75 mg PO DAILY [facility] Last Admin: 08/30/24 08:07 Dose: 75 mg Cyclobenzaprine HCl (Cyclobenzaprine Hcl 10 Mg Tablet) 10 mg PO DAILY PRN PRN Reason: muscle spasms Last Admin: 08/30/24 21:03 Dose: 10 mg Fluticasone Propionate (Fluticasone Propionate Nasal 16 Gm [place]) 1 spray NOSTRIL-B BID PRN PRN Reason: allergies Fluticasone/Umeclidinium/Vilanterol (Fluticasone/Umeclidinium/Vilanterol 100/62.5/25 Blst.W.Dev) 1 puff INHALE RDAILY [facility] Last Admin: 08/30/24 08:15 Dose: 1 puff Levalbuterol HCl (Levalbuterol Hcl 1.25 Mg/3 Ml Vial.Neb) 1.25 mg INHALE TID PRN PRN Reason: Shortness Of Breath Or Wheezing Losartan Potassium (Losartan Potassium 50 Mg Tablet) 50 mg PO BEDTIME [facility]; Protocol Last Admin: 08/30/24 21:05 Dose: 50 mg Magnesium Hydroxide (Milk Of Magnesia 30 Ml Oral.Susp) 30 ml PO DAILY PRN PRN Reason: No Bm for three days Last Admin: 08/22/24 22:17 Dose: 30 ml Metoprolol Tartrate (Metoprolol Tartrate 25 Mg Tablet) 25 mg PO BID [facility]; Protocol Last Admin: 08/30/24 21:04 Dose: 25 mg Nicotine (Nicotine 7 Mg Patch.Td24) 7 mg TRANSDERMA DAILY [facility] Last Admin: 08/30/24 08:07 Dose: 7 mg Nystatin (Nystatin Oral Susp 500,000 Unit/5 Ml Oral.Susp) 500,000 unit PO QID [facility]; Protocol Last Admin: 08/30/24 21:06 Dose: 500,000 unit Olanzapine (Olanzapine 5 Mg Tablet) 5 mg PO BID [facility] Last Admin: 08/30/24 21:05 Dose: 5 mg Olanzapine (Olanzapine 10 Mg Tablet) 10 mg PO Q6H PRN PRN Reason: agitation Omeprazole (Omeprazole 20 Mg Capsule.Dr) 20 mg PO DAILY@0630 [facility] Last Admin: 08/30/24 06:19 Dose: 20 mg Ondansetron HCl (Ondansetron Odt 4 Mg Tab.Rapdis) 4 mg TRANSLINGU Q8H PRN PRN Reason: Nausea and Vomiting Oxycodone HCl (Oxycodone Hcl Immed Release 5 Mg Tablet) 10 mg PO Q6H PRN PRN Reason: Pain (Scale Score 4-6) Last Admin: 08/30/24 16:54 Dose: 10 mg Roflumilast (Roflumilast 500 Mcg Tablet) 500 mcg PO DAILY [facility] Last Admin: 08/30/24 08:07 Dose: 500 mcg Sertraline HCl (Sertraline Hcl 50 Mg Tablet) 50 mg PO DAILY [facility] Last Admin: 08/30/24 08:08 Dose: 50 mg Sodium Biphosphate/Sodium Phosphate (Sodium Phosphate,[place]-Dibasic 133 Ml Enema) 133 ml [place] DAILY PRN PRN Reason: step 3-no BM after 8h after Bi Trazodone HCl (Trazodone Hcl 50 Mg Tablet) 50 mg PO BEDTIME MRX1 PRN PRN Reason: Insomnia Last Admin: 08/30/24 21:03 Dose: 50 mg Trolamine Salicylate (Trolamine Salicylate 10 % Cream 85 Gm Tube) 1 appl TOPICAL BID PRN; Protocol PRN Reason: Pain, Moderate(Pain Scale 4-6) Vitamin D (Cholecalciferol (Vitamin D3) 25 Mcg Tablet) 50 mcg PO DAILY [facility] Last Admin: 08/30/24 08:08 Dose: 50 mcg Allergies Allergies Allergy/AdvReac Type Severity Reaction Status Date / Time codeine [CODEINE] Allergy Unknown Hives Verified 08/20/24 17:59 Assessment & Plan Assessment & Plan (1) Encephalopathy: Qualifiers: Encephalopathy type: toxic metabolic Qualified Code(s): G92.8 - Other toxic encephalopathy Status: Acute Code(s): G93.40 - Encephalopathy, unspecified Assessment and Plan: some improvement in attention and orientation, but fluctuating. More consistent improvement. (2) Major neurocognitive disorder: Status: Acute Code(s): F03.90 - Unspecified dementia, unspecified severity, without behavioral disturbance, psychotic disturbance, mood disturbance, and anxiety Plan Mrs. Leslie is a 73 year-old woman who recently was medically admitted after a fall and sustain fracture, underwent hip surgery 07/12/2024, was discharged on 07/24/2024 to [facility], per granddaughter patient has been presenting as increasingly more confused, somewhat paranoid at times. Pt presents with s/s of delirium with poor attention, fluctuating levels of orientation. She was seen by this advertising copy writer prior to surgery due to patient presenting with visual hallucinations that at the time she was seen the following day, they had cleared on 07/10/2024. Her presentation now, regardless of whether there is an underlying neurocognitive disorder, is consistent with delirium of unclear etiology as medical work up unremarkable for acute findings. She was also seen by neurology who did not recommend further work up but symptomatic management. Pt has been seen by this advertising copy writer in the ED, pt noted to have fluctuating changes in orientation. Today, she presents as most lucid I have seen her she she [place] [facility] [place] It does seem that olanzapine may be more helpful that risperidone, so will change to olanzapine 5mg po BID, with additional PRN doses. PLAN 1. Admit to S1, Sect 12b, 5 mins checks 2. d/c risperidone, start olanzapine 5mg po BID, prn olanzapine 3. aftercare planning. 08/27: appears unable to appreciate her circumstance very well. c/o depression, saying she has been on zoloft for a long time and it has not worked for her. asking to DC from unit and go to rehab ([facility]). per staff, requiring 1:1 care, status changed to 1:1. 08/28 improvement in orientation, attention and thought process but continues to have fluctuations in orientation but more consistent improvement. no overt psychosis or delusions. She is eating better. requires wheelchair but working with PT. continue olanzapine 5mg po BID. 08/29/2024 Patient seems to be clearing improved mentation 08/30/2024 Continue plan of care PT consult continue olanzapine Reason for continued inpatient stay Substantial Risk for: inability to function and rapid decompensation Time Spent With Patient Time: Total time managing care of this patient today ____ minutes.
[2024-08-31] MEDS: oxyCODONE HCl Immed Release 5 MG TABLET 10 MG PO (04:31)
[2024-08-31 05:22] VITALS: BMI 36.2
[2024-08-31] MEDS: Omeprazole 20 MG CAPSULE.DR PO (07:07)
[2024-08-31 08:35] VITALS: BP 132/63; PULSE 96; RESP 18; TEMP 36.6; O2SAT 95
[2024-08-31] MEDS: Fluticasone/Umeclidinium/Vilanterol 100/62.5/25 BLST.W.DEV 1 PUFF INHALE (08:38)
[2024-08-31] MEDS: Metoprolol Tartrate 25 MG TABLET PO ×2 (08:40→20:49)
[2024-08-31] MEDS: OLANZapine 5 MG TABLET PO ×2 (08:40→20:50)
[2024-08-31] MEDS: Roflumilast 500 MCG TABLET PO (08:40)
[2024-08-31] MEDS: Sertraline HCL 50 MG TABLET PO (08:40)
[2024-08-31] MEDS: Clopidogrel Bisulfate 75 MG TABLET PO (08:40)
[2024-08-31] MEDS: Cholecalciferol (Vitamin D3) 25 MCG TABLET 50 MCG PO (08:40)
[2024-08-31] MEDS: Aspirin Enteric Coated 81 MG TABLET.DR PO (08:40)
[2024-08-31] MEDS: amLODIPine Besylate 10 MG TABLET PO (08:40)
[2024-08-31] MEDS: Nystatin Oral Susp 500,000 UNIT/5 ML ORAL.SUSP 500000 UNIT PO ×3 (08:45→20:48)
[2024-08-31] MEDS: Nicotine 7 MG PATCH.TD24 TRANSDERMA (08:46)
--- NOTE | 2024-08-31 12:10 | HO.PSYCHPN ---
Subjective Subjective Date of Service: 08/31/24 Reason For Visit: paranoia Subjective Notes: Conditional Voluntary Healthcare Proxy: Yes Interim History: Pt slept through the night. She is more oriented to place, month and year, situation is vague as she goes into hip fracture. pending MOCA and ACL. No signs of psychosis or delusional content. She is tolerating olanzapine well, seems to be more helpful than risperidone. Review of Systems Review of Systems Constitutional : No Fever, No Chills, No Fatigue ENT/Mouth : No sore throat, No Rhinorrhea Eyes: No Eye Pain, No Swelling, No Redness Cardiovascular : No Chest Pain, No SOB, No Dyspnea on Exertion Respiratory : No Cough, No Sputum Gastrointestinal : No Nausea, No Vomiting, No Diarrhea, No abdominal Pain Genitourinary : No Dysuria, No Urinary Frequency, No Hematuria, Musculoskeletal : No joint pain, No Myalgias, No Joint Swelling Skin : No Skin Lesions, No rash Neuro : No Weakness, No Numbness, No Dizziness, no Headache All other systems reviewed and are negative Mental Status Exam Mental Status Exam Narrative: Appearance: wearing hospital gown, good hygiene, in NAD behavior: calm Psychomotor: no agitation or retardation noted Speech: mostly clear, regular rate/rhythm/volume, spontaneous TP: more linear TC: knows she is in a psychiatric hospital Mood: good Affect: constricted, appears anxious SI: none HI: none VH/AH: no overt signs Delusions: no overt Insight/judgment: improving x 2 Memory/co improving alertness memory and cognition Diagnostics Vital Signs (24Hr): Vital Signs - 24 hr 08/30/24 20:00 08/30/24 21:04 08/30/24 21:05 Temperature 98.6 F Pulse Rate 99 Respiratory Rate 16 Blood Pressure 103/61 103/61 Pulse Oximetry 98 Oxygen Delivery Method Room Air 08/31/24 08:35 Temperature 97.8 F Pulse Rate 96 Respiratory Rate 18 Blood Pressure 132/63 Pulse Oximetry 95 Oxygen Delivery Method Room Air BMI result Body Mass Index 36.2 Labs 08/25/24 19:22 08/31/24 12:17 Medications Medications Current Medications Acetaminophen (Acetaminophen 325 Mg Tablet) 650 mg PO Q6H PRN PRN Reason: pain or fever greater than 100.0f Last Admin: 08/29/24 09:53 Dose: 650 mg Acetaminophen (Acetaminophen 325 Mg Tablet) 325 mg PO Q6H PRN PRN Reason: Pain, Moderate(Pain Scale 4-6) Acetaminophen/Butalbital/Caffeine (Butalb/Acetamin/Caff 50/325/40 Tablet) 1 tab PO DAILY PRN PRN Reason: Headache Last Admin: 08/29/24 21:01 Dose: 1 tab Albuterol/Ipratropium (Albuterol/Iprat 2.5/0.5mg 3 Ml Ampul.Neb) 3 ml INHALE QID PRN PRN Reason: wheezing Amlodipine Besylate (Amlodipine Besylate 10 Mg Tablet) 10 mg PO DAILY [facility]; Protocol Last Admin: 08/31/24 08:40 Dose: 10 mg Aspirin (Aspirin Enteric Coated 81 Mg Tablet.) 81 mg PO DAILY [facility] Last Admin: 08/31/24 08:40 Dose: 81 mg Atorvastatin Calcium (Atorvastatin Calcium 80 Mg Tablet) 80 mg PO BEDTIME [facility] Last Admin: 08/30/24 21:05 Dose: 80 mg Bisacodyl (Bisacodyl 10 Mg Supp.Rect) 10 mg [place] DAILY PRN PRN Reason: step 2 if no BM 8 hours after MOM Clopidogrel Bisulfate (Clopidogrel Bisulfate 75 Mg Tablet) 75 mg PO DAILY [facility] Last Admin: 08/31/24 08:40 Dose: 75 mg Cyclobenzaprine HCl (Cyclobenzaprine Hcl 10 Mg Tablet) 10 mg PO DAILY PRN PRN Reason: muscle spasms Last Admin: 08/30/24 21:03 Dose: 10 mg Fluticasone Propionate (Fluticasone Propionate Nasal 16 Gm [place]) 1 spray NOSTRIL-B BID PRN PRN Reason: allergies Fluticasone/Umeclidinium/Vilanterol (Fluticasone/Umeclidinium/Vilanterol 100/62.5/25 Blst.W.Dev) 1 puff INHALE RDAILY [facility] Last Admin: 08/31/24 08:38 Dose: 1 puff Levalbuterol HCl (Levalbuterol Hcl 1.25 Mg/3 Ml Vial.Neb) 1.25 mg INHALE TID PRN PRN Reason: Shortness Of Breath Or Wheezing Losartan Potassium (Losartan Potassium 50 Mg Tablet) 50 mg PO BEDTIME [facility]; Protocol Last Admin: 08/30/24 21:05 Dose: 50 mg Magnesium Hydroxide (Milk Of Magnesia 30 Ml Oral.Susp) 30 ml PO DAILY PRN PRN Reason: No Bm for three days Last Admin: 08/22/24 22:17 Dose: 30 ml Metoprolol Tartrate (Metoprolol Tartrate 25 Mg Tablet) 25 mg PO BID [facility]; Protocol Last Admin: 08/31/24 08:40 Dose: 25 mg Nicotine (Nicotine 7 Mg Patch.Td24) 7 mg TRANSDERMA DAILY [facility] Last Admin: 08/31/24 08:46 Dose: 7 mg Nystatin (Nystatin Oral Susp 500,000 Unit/5 Ml Oral.Susp) 500,000 unit PO QID [facility]; Protocol Last Admin: 08/31/24 08:45 Dose: 500,000 unit Olanzapine (Olanzapine 5 Mg Tablet) 5 mg PO BID [facility] Last Admin: 08/31/24 08:40 Dose: 5 mg Olanzapine (Olanzapine 10 Mg Tablet) 10 mg PO Q6H PRN PRN Reason: agitation Omeprazole (Omeprazole 20 Mg Capsule.Dr) 20 mg PO DAILY@0630 [facility] Last Admin: 08/31/24 07:07 Dose: 20 mg Ondansetron HCl (Ondansetron Odt 4 Mg Tab.Rapdis) 4 mg TRANSLINGU Q8H PRN PRN Reason: Nausea and Vomiting Oxycodone HCl (Oxycodone Hcl Immed Release 5 Mg Tablet) 5 mg PO Q6H PRN PRN Reason: Pain (Scale Score 4-6) Roflumilast (Roflumilast 500 Mcg Tablet) 500 mcg PO DAILY [facility] Last Admin: 08/31/24 08:40 Dose: 500 mcg Sertraline HCl (Sertraline Hcl 50 Mg Tablet) 50 mg PO DAILY [facility] Last Admin: 08/31/24 08:40 Dose: 50 mg Sodium Biphosphate/Sodium Phosphate (Sodium Phosphate,[place]-Dibasic 133 Ml Enema) 133 ml [place] DAILY PRN PRN Reason: step 3-no BM after 8h after Bi Trazodone HCl (Trazodone Hcl 50 Mg Tablet) 50 mg PO BEDTIME MRX1 PRN PRN Reason: Insomnia Last Admin: 08/30/24 21:03 Dose: 50 mg Trolamine Salicylate (Trolamine Salicylate 10 % Cream 85 Gm Tube) 1 appl TOPICAL BID PRN; Protocol PRN Reason: Pain, Moderate(Pain Scale 4-6) Vitamin D (Cholecalciferol (Vitamin D3) 25 Mcg Tablet) 50 mcg PO DAILY [facility] Last Admin: 08/31/24 08:40 Dose: 50 mcg Allergies Allergies Allergy/AdvReac Type Severity Reaction Status Date / Time codeine [CODEINE] Allergy Unknown Hives Verified 08/20/24 17:59 Assessment & Plan Assessment & Plan (1) Major neurocognitive disorder: Status: Acute Code(s): F03.90 - Unspecified dementia, unspecified severity, without behavioral disturbance, psychotic disturbance, mood disturbance, and anxiety Plan Mrs. Leslie is a 73 year-old woman who recently was medically admitted after a fall and sustain fracture, underwent hip surgery 07/12/2024, was discharged on 07/24/2024 to [facility], per granddaughter patient has been presenting as increasingly more confused, somewhat paranoid at times. Pt presents with s/s of delirium with poor attention, fluctuating levels of orientation. She was seen by this fiction and nonfiction prose writer prior to surgery due to patient presenting with visual hallucinations that at the time she was seen the following day, they had cleared on 07/10/2024. Her presentation now, regardless of whether there is an underlying neurocognitive disorder, is consistent with delirium of unclear etiology as medical work up unremarkable for acute findings. She was also seen by neurology who did not recommend further work up but symptomatic management. Pt has been seen by this fiction and nonfiction prose writer in the ED, pt noted to have fluctuating changes in orientation. Today, she presents as most lucid I have seen her she she came to the [facility] [place]. It does seem that olanzapine may be more helpful that risperidone, so will change to olanzapine 5mg po BID, with additional PRN doses. PLAN 1. Admit to S1, Sect 12b, 5 mins checks 2. d/c risperidone, start olanzapine 5mg po BID, prn olanzapine 3. aftercare planning. 08/27: appears unable to appreciate her circumstance very well. c/o depression, saying she has been on zoloft for a long time and it has not worked for her. asking to DC from unit and go to rehab ([facility]). per staff, requiring 1:1 care, status changed to 1:1. 08/28 improvement in orientation, attention and thought process but continues to have fluctuations in orientation but more consistent improvement. no overt psychosis or delusions. She is eating better. requires wheelchair but working with PT. continue olanzapine 5mg po BID. 08/29/2024 Patient seems to be clearing improved mentation 08/30/2024 Continue plan of care PT consult continue olanzapine 08/31 continue tx. delirium has resolved. Reason for continued inpatient stay Substantial Risk for: inability to function Time Spent With Patient Time: Total time managing care of this patient today ____ minutes.
[2024-08-31 12:47] LABS: Alanine Aminotransferase 27 U/L (0-31); Albumin Level 3.5 g/dL (3.5-5.0); Alkaline Phosphatase 173 U/L (39-117); Anion Gap 11 (12-20); Aspartate Amino Transferase 23 U/L (5-31); Bilirubin Total 0.1 mg/dL (0.0-1.0); Blood Urea Nitrogen 18 mg/dL (9-16); Carbon Dioxide 27 mmol/L (22-29); Chloride 107 mmol/L (96-108); Creatinine Clr Calc Pharmacy 73.8; Estimated Glomerular Filt Rate > 60; Glucose Random 124 mg/dL (60-115); Potassium 3.8 mmol/L (3.3-5.1); Sodium 141 mmol/L (135-145); Total Protein 6.1 g/dL (6.5-8.0)
[2024-08-31] MEDS: oxyCODONE HCl Immed Release 5 MG TABLET PO ×2 (17:47→23:57)
[2024-08-31] MEDS: Cyclobenzaprine HCl 10 MG TABLET PO (17:47)
[2024-08-31 20:00] VITALS: BP 111/62; PULSE 105; TEMP 36.7; O2SAT 96
[2024-08-31 20:49] VITALS: BP 111/62; PULSE 105
[2024-08-31] MEDS: Atorvastatin Calcium 80 MG TABLET PO (20:49)
[2024-08-31] MEDS: Losartan Potassium 50 MG TABLET PO (20:49)
[2024-08-31] MEDS: traZODone HCL 50 MG TABLET PO ×2 (20:54→23:53)
[2024-08-31] MEDS: Acetaminophen 325 MG TABLET 650 MG PO (21:38)
[2024-09-01] MEDS: Acetaminophen 325 MG TABLET PO ×2 (06:06→22:30)
[2024-09-01] MEDS: oxyCODONE HCl Immed Release 5 MG TABLET PO ×3 (06:07→22:31)
[2024-09-01] MEDS: Omeprazole 20 MG CAPSULE.DR PO (06:07)
[2024-09-01 11:30] VITALS: BP 140/63; PULSE 96; RESP 15; TEMP 36.8; O2SAT 97
[2024-09-01] MEDS: Nystatin Oral Susp 500,000 UNIT/5 ML ORAL.SUSP 500000 UNIT PO ×4 (11:31→21:29)
[2024-09-01] MEDS: Roflumilast 500 MCG TABLET PO (11:31)
[2024-09-01] MEDS: Cholecalciferol (Vitamin D3) 25 MCG TABLET 50 MCG PO (11:31)
[2024-09-01] MEDS: amLODIPine Besylate 10 MG TABLET PO (11:32)
[2024-09-01] MEDS: Aspirin Enteric Coated 81 MG TABLET.DR PO (11:32)
[2024-09-01] MEDS: Sertraline HCL 50 MG TABLET PO (11:32)
[2024-09-01] MEDS: OLANZapine 5 MG TABLET PO ×2 (11:32→21:28)
[2024-09-01] MEDS: Clopidogrel Bisulfate 75 MG TABLET PO (11:32)
[2024-09-01] MEDS: Metoprolol Tartrate 25 MG TABLET PO ×2 (11:32→21:28)
[2024-09-01] MEDS: Nicotine 7 MG PATCH.TD24 TRANSDERMA (11:35)
[2024-09-01] MEDS: Fluticasone/Umeclidinium/Vilanterol 100/62.5/25 BLST.W.DEV 1 PUFF INHALE (13:44)
[2024-09-01] MEDS: Cyclobenzaprine HCl 10 MG TABLET PO (13:45)
--- NOTE | 2024-09-01 19:08 | P.PNPSI_ITS ---
Subjective Subjective Date of Service: 09/01/24 Reason For Visit: paranoia Subjective Notes: Conditional Voluntary Healthcare Proxy: Yes Interim History: Pt slept through the night. She has been visible on the unit and social with peers. No SI/HI. No psychosis or delusional content. MOCA and ACL completed. significant impairments in executive function, recall, language fluency, repetition and naming. orientation is intact to place, month, year, date although to situation is vague. Her BP has been on lower side. Will adjust amlodipine to 5mg po daily as olanzapine due to alpha adrenergic properties may be contributing to it. Medication Compliance: Yes Review of Systems Review of Systems Constitutional : No Fever, No Chills, No Fatigue ENT/Mouth : No sore throat, No Rhinorrhea Eyes: No Eye Pain, No Swelling, No Redness Cardiovascular : No Chest Pain, No SOB, No Dyspnea on Exertion Respiratory : No Cough, No Sputum Gastrointestinal : No Nausea, No Vomiting, No Diarrhea, No abdominal Pain Genitourinary : No Dysuria, No Urinary Frequency, No Hematuria, Musculoskeletal : No joint pain, No Myalgias, No Joint Swelling Skin : No Skin Lesions, No rash Neuro : No Weakness, No Numbness, No Dizziness, no Headache All other systems reviewed and are negative Mental Status Exam Mental Status Exam Narrative: Appearance: wearing hospital gown, good hygiene, in NAD behavior: calm Psychomotor: no agitation or retardation noted Speech: mostly clear, regular rate/rhythm/volume, spontaneous TP: linear TC: looking forward to go home soon Mood: good Affect: brighter non labile SI: none HI: none VH/AH: no overt signs Delusions: no overt Insight/judgment: improving x 2 Memory/cog: Alert, oriented to place, month, year, situation is vague. MOCA completed on 09/01/2024 scored 19/30 with most impairments in executive function (not able at all to complete clock draw, place number nor hands to reflect time ten past eleven)(1/5), naming (2/3), attention (5/6), language fluency (0/1), abstraction (1/2) and recall (2/5). ACL 4.2 Diagnostics Vital Signs (24Hr): Vital Signs - 24 hr 08/31/24 20:00 08/31/24 20:49 08/31/24 20:49 Temperature 98.0 F Pulse Rate 105 H 105 H Respiratory Rate Blood Pressure 111/62 111/62 111/62 Pulse Oximetry 96 Oxygen Delivery Method Room Air 09/01/24 11:30 Temperature 98.2 F Pulse Rate 96 Respiratory Rate 15 Blood Pressure 140/63 H Pulse Oximetry 97 Oxygen Delivery Method Room Air BMI result Body Mass Index 36.2 Labs 08/25/24 19:22 08/31/24 12:17 Labs: Laboratory Results - last 48 hr 08/31/24 12:17 Hold Purple Top SEE NOTE Sodium 141 Potassium 3.8 D Chloride 107 Carbon Dioxide 27 Anion Gap 11 L BUN 18 H Creatinine 0.69 Estim Creat Clear Calc 73.8 Estimated GFR > 60 Random Glucose 124 H Calcium 9.0 Total Bilirubin 0.1 AST 23 ALT 27 Alkaline Phosphatase 173 H Total Protein 6.1 L Albumin 3.5 Medications Medications Current Medications Acetaminophen (Acetaminophen 325 Mg Tablet) 650 mg PO Q6H PRN PRN Reason: pain or fever greater than 100.0f Last Admin: 08/31/24 21:38 Dose: 650 mg Acetaminophen (Acetaminophen 325 Mg Tablet) 325 mg PO Q6H PRN PRN Reason: Pain, Moderate(Pain Scale 4-6) Last Admin: 09/01/24 06:06 Dose: 325 mg Acetaminophen/Butalbital/Caffeine (Butalb/Acetamin/Caff 50/325/40 Tablet) 1 tab PO DAILY PRN PRN Reason: Headache Last Admin: 08/29/24 21:01 Dose: 1 tab Albuterol/Ipratropium (Albuterol/Iprat 2.5/0.5mg 3 Ml Ampul.Neb) 3 ml INHALE QID PRN PRN Reason: wheezing Amlodipine Besylate (Amlodipine Besylate 10 Mg Tablet) 10 mg PO DAILY [facility]; Protocol Last Admin: 09/01/24 11:32 Dose: 10 mg Aspirin (Aspirin Enteric Coated 81 Mg Tablet.Dr) 81 mg PO DAILY [facility] Last Admin: 09/01/24 11:32 Dose: 81 mg Atorvastatin Calcium (Atorvastatin Calcium 80 Mg Tablet) 80 mg PO BEDTIME [facility] Last Admin: 08/31/24 20:49 Dose: 80 mg Bisacodyl (Bisacodyl 10 Mg Supp.Rect) 10 mg WV DAILY PRN PRN Reason: step 2 if no BM 8 hours after MOM Clopidogrel Bisulfate (Clopidogrel Bisulfate 75 Mg Tablet) 75 mg PO DAILY [facility] Last Admin: 09/01/24 11:32 Dose: 75 mg Cyclobenzaprine HCl (Cyclobenzaprine Hcl 10 Mg Tablet) 10 mg PO DAILY PRN PRN Reason: muscle spasms Last Admin: 09/01/24 13:45 Dose: 10 mg Fluticasone Propionate (Fluticasone Propionate Nasal 16 Gm Caney) 1 spray NOSTRIL-B BID PRN PRN Reason: allergies Fluticasone/Umeclidinium/Vilanterol (Fluticasone/Umeclidinium/Vilanterol 100/62.5/25 Blst.W.Dev) 1 puff INHALE RDAILY [facility] Last Admin: 09/01/24 13:44 Dose: 1 puff Levalbuterol HCl (Levalbuterol Hcl 1.25 Mg/3 Ml Vial.Neb) 1.25 mg INHALE TID PRN PRN Reason: Shortness Of Breath Or Wheezing Losartan Potassium (Losartan Potassium 50 Mg Tablet) 50 mg PO BEDTIME [facility]; Protocol Last Admin: 08/31/24 20:49 Dose: 50 mg Magnesium Hydroxide (Milk Of Magnesia 30 Ml Oral.Susp) 30 ml PO DAILY PRN PRN Reason: No Bm for three days Last Admin: 08/22/24 22:17 Dose: 30 ml Metoprolol Tartrate (Metoprolol Tartrate 25 Mg Tablet) 25 mg PO BID [facility]; Protocol Last Admin: 09/01/24 11:32 Dose: 25 mg Nicotine (Nicotine 7 Mg Patch.Td24) 7 mg TRANSDERMA DAILY [facility] Last Admin: 09/01/24 11:35 Dose: 7 mg Nystatin (Nystatin Oral Susp 500,000 Unit/5 Ml Oral.Susp) 500,000 unit PO QID [facility]; Protocol Last Admin: 09/01/24 18:47 Dose: 500,000 unit Olanzapine (Olanzapine 5 Mg Tablet) 5 mg PO BID [facility] Last Admin: 09/01/24 11:32 Dose: 5 mg Olanzapine (Olanzapine 10 Mg Tablet) 10 mg PO Q6H PRN PRN Reason: agitation Omeprazole (Omeprazole 20 Mg Capsule.Dr) 20 mg PO DAILY@0630 [facility] Last Admin: 09/01/24 06:07 Dose: 20 mg Ondansetron HCl (Ondansetron Odt 4 Mg Tab.Rapdis) 4 mg TRANSLINGU Q8H PRN PRN Reason: Nausea and Vomiting Oxycodone HCl (Oxycodone Hcl Immed Release 5 Mg Tablet) 5 mg PO Q6H PRN PRN Reason: Pain (Scale Score 4-6) Last Admin: 09/01/24 13:45 Dose: 5 mg Roflumilast (Roflumilast 500 Mcg Tablet) 500 mcg PO DAILY [facility] Last Admin: 09/01/24 11:31 Dose: 500 mcg Sertraline HCl (Sertraline Hcl 50 Mg Tablet) 50 mg PO DAILY [facility] Last Admin: 09/01/24 11:32 Dose: 50 mg Sodium Biphosphate/Sodium Phosphate (Sodium Phosphate,Bee-Dibasic 133 Ml Enema) 133 ml WV DAILY PRN PRN Reason: step 3-no BM after 8h after Bi Trazodone HCl (Trazodone Hcl 50 Mg Tablet) 50 mg PO BEDTIME MRX1 PRN PRN Reason: Insomnia Last Admin: 08/31/24 23:53 Dose: 50 mg Trolamine Salicylate (Trolamine Salicylate 10 % Cream 85 Gm Tube) 1 appl TOPICAL BID PRN; Protocol PRN Reason: Pain, Moderate(Pain Scale 4-6) Vitamin D (Cholecalciferol (Vitamin D3) 25 Mcg Tablet) 50 mcg PO DAILY [facility] Last Admin: 09/01/24 11:31 Dose: 50 mcg Allergies Allergies Allergy/AdvReac Type Severity Reaction Status Date / Time codeine [CODEINE] Allergy Unknown Hives Verified 08/20/24 17:59 Assessment & Plan Assessment & Plan (1) Major neurocognitive disorder: Status: Acute Code(s): F03.90 - Unspecified dementia, unspecified severity, without behavioral disturbance, psychotic disturbance, mood disturbance, and anxiety Plan Mrs. Leslie is a 73 year-old woman who recently was medically admitted after a fall and sustain fracture, underwent hip surgery 07/12/2024, was discharged on 07/24/2024 to [facility], per granddaughter patient has been presenting as increasingly more confused, somewhat paranoid at times. Pt presents with s/s of delirium with poor attention, fluctuating levels of orientation. She was seen by this typewriter assembler prior to surgery due to patient presenting with visual hallucinations that at the time she was seen the following day, they had cleared on 07/10/2024. Her presentation now, regardless of whether there is an underlying neurocognitive disorder, is consistent with delirium of unclear etiology as medical work up unremarkable for acute findings. She was also seen by neurology who did not recommend further work up but symptomatic management. Pt has been seen by this typewriter assembler in the ED, pt noted to have fluctuating changes in orientation. Today, she presents as most lucid I have seen her she she came to the [facility]. It does seem that olanzapine may be more helpful that risperidone, so will change to olanzapine 5mg po BID, with additional PRN doses. PLAN 1. Admit to S1, Sect 12b, 5 mins checks 2. d/c risperidone, start olanzapine 5mg po BID, prn olanzapine 3. aftercare planning. 08/27: appears unable to appreciate her circumstance very well. c/o depression, saying she has been on zoloft for a long time and it has not worked for her. asking to DC from unit and go to rehab ([facility]). per staff, requiring 1:1 care, status changed to 1:1. 08/28 improvement in orientation, attention and thought process but continues to have fluctuations in orientation but more consistent improvement. no overt psychosis or delusions. She is eating better. requires wheelchair but working with PT. continue olanzapine 5mg po BID. 08/29/2024 Patient seems to be clearing improved mentation 08/30/2024 Continue plan of care PT consult continue olanzapine 08/31 continue tx. delirium has resolved. 09/01 continue tx. plan to d/c tomorrow. 09/02 continue tx. plan to dc tomorrow. Reason for continued inpatient stay Substantial Risk for: inability to function Time Spent With Patient Time: Total time managing care of this patient today ____ minutes.
[2024-09-01 19:58] VITALS: BP 102/58; PULSE 101; TEMP 36.5; O2SAT 96
[2024-09-01] MEDS: Losartan Potassium 50 MG TABLET PO (21:28)
[2024-09-01] MEDS: Atorvastatin Calcium 80 MG TABLET PO (21:28)
[2024-09-02] MEDS: Butalb/Acetamin/Caff 50/325/40 TABLET 1 TAB PO (02:09)
[2024-09-02] MEDS: Acetaminophen 325 MG TABLET PO (05:30)
[2024-09-02] MEDS: Omeprazole 20 MG CAPSULE.DR PO (05:30)
[2024-09-02] MEDS: oxyCODONE HCl Immed Release 5 MG TABLET PO (05:30)
[2024-09-02 08:00] VITALS: BP 118/58; PULSE 97; RESP 16; TEMP 36.8; O2SAT 96
[2024-09-02] MEDS: Fluticasone/Umeclidinium/Vilanterol 100/62.5/25 BLST.W.DEV 1 PUFF INHALE (08:05)
[2024-09-02] MEDS: Nicotine 7 MG PATCH.TD24 TRANSDERMA (08:05)
[2024-09-02] MEDS: Nystatin Oral Susp 500,000 UNIT/5 ML ORAL.SUSP 500000 UNIT PO (08:06)
[2024-09-02] MEDS: Clopidogrel Bisulfate 75 MG TABLET PO (08:07)
[2024-09-02] MEDS: OLANZapine 5 MG TABLET PO (08:07)
[2024-09-02] MEDS: Aspirin Enteric Coated 81 MG TABLET.DR PO (08:07)
[2024-09-02] MEDS: Sertraline HCL 50 MG TABLET PO (08:07)
[2024-09-02] MEDS: Cholecalciferol (Vitamin D3) 25 MCG TABLET 50 MCG PO (08:07)
[2024-09-02] MEDS: Metoprolol Tartrate 25 MG TABLET PO (08:07)
[2024-09-02] MEDS: amLODIPine Besylate 10 MG TABLET PO (08:07)
[2024-09-02] MEDS: Roflumilast 500 MCG TABLET PO (08:07)
--- NOTE | 2024-09-02 08:17 | P.DS_ITS ---
DS: Providers Provider Date of Service: 09/02/24 Date of admission: 08/26/24 11:44 Date of discharge: 09/02/24 Primary care physician: Villa Sellers MD Discharging clinician: Eliz Anne DS: Diagnosis Discharge Diagnosis (1) Major neurocognitive disorder: Status: Acute DS: Medications Discharge Medications Home Medications: Home Medications ?Medication ?Instructions ?Recorded ?Confirmed buspirone 10 mg tablet 10 mg PO BID 11/15/22 08/21/24 [id number] 1 cap PO Q24H PRN Headache 11/15/22 08/21/24 50 mg-300 mg-40 mg capsule cholecalciferol (vitamin D3) 50 50 mcg PO DAILY 11/15/22 08/21/24 mcg (2,000 unit) capsule clopidogrel 75 mg tablet 75 mg PO DAILY 11/15/22 08/21/24 erenumab-aooe 140 mg/mL 140 mg subcut Q28D 11/15/22 08/21/24 subcutaneous auto-injector (Aimovig Autoinjector) esomeprazole magnesium 40 mg 40 mg PO DAILY@0630 11/15/22 08/21/24 capsule,delayed release fluticasone fur. 100 mcg-umeclid 1 ea inhalation DAILY 11/15/22 08/21/24 62.5 mcg-vilant 25 mcg inhalat.powder (Trelegy Ellipta) fluticasone propionate 50 1 spray intranasal Q12H PRN 11/15/22 08/21/24 mcg/actuation nasal allergies spray,suspension immun glob G 10 50 ml subcut MCKENZIE@0900 11/15/22 08/21/24 gram/50mL(20%)-gly-IgA over 50 mcg/mL subcutaneous suzanna (Cuvitru) levalbuterol HCl 1.25 mg/0.5 mL 1.25 mg inhalation Q8H PRN 11/15/22 08/21/24 solution for nebulization Shortness Of Breath Or Wheezing metoprolol tartrate 25 mg tablet 25 mg PO BID 11/15/22 08/21/24 nitroglycerin 0.4 mg sublingual 0.4 mg sublingual Q5M PRN Chest 11/15/22 08/21/24 tablet Pain ocrelizumab 30 mg/mL intravenous 600 mg IV [id number] 11/15/22 08/21/24 solution bupropion HCl 150 mg tablet,12 hr 150 mg PO BID 07/07/24 08/22/24 sustained-release cyclobenzaprine 10 mg tablet 10 mg PO DAILY PRN muscle spasms 07/07/24 08/21/24 ipratropium 0.5 mg-albuterol 3 mg 3 ml inhalation Q6H PRN wheezing 07/07/24 03/0 01/08 (2.5 mg base)/3 mL nebulization soln roflumilast 500 mcg tablet 500 mcg PO DAILY 07/07/24 08/21/24 rosuvastatin 40 mg tablet 40 mg PO BEDTIME 07/07/24 08/21/24 sertraline 50 mg tablet 50 mg PO DAILY 07/07/24 08/21/24 acetaminophen 325 mg tablet 650 mg PO Q6H PRN pain or fever 08/20/24 08/21/24 greater than 100.0f bisacodyl 10 mg rectal suppository 10 mg AZ NEEDED PRN step 2 if 08/20/24 08/21/24 no BM 8 hours after MOM magnesium hydroxide 400 mg/5 mL 30 ml PO NEEDED PRN No Bm for 08/20/24 08/21/24 oral suspension (Milk of Magnesia) three days ondansetron HCl 4 mg tablet 4 mg PO Q8H PRN nausea/vomitting 08/20/24 08/21/24 sodium phosphates 19 gram-7 118 ml [place] DAILY PRN step 3-no BM 08/20/24 08/21/24 gram/118 mL enema (Fleet Enema) after 8h after Bisacodyl supp menthol 5 % topical patch (Cold 1 patch topical DAILY 08/21/24 08/21/24 and Hot (menthol)) nicotine 7 mg/24 hr daily 1 patch transdermal DAILY 08/21/24 08/21/24 transdermal patch Previous Rx's ?Medication ?Instructions ?Recorded amlodipine 10 mg tablet 10 mg PO DAILY #90 tabs 07/23/24 aspirin 325 mg tablet 325 mg PO BID 35 days #70 tabs 07/23/24 losartan 50 mg tablet 50 mg PO BEDTIME #90 tabs 07/23/24 nystatin 100,000 unit/mL oral 400,000 unit (4 mL) PO QID #60 mL 07/23/24 suspension oxycodone-acetaminophen 10 mg-325 1 tab PO Q4H PRN Pain (Scale Score 07/23/24 mg tablet 4-6) #20 tabs Mental Status Exam Mental Status Exam Narrative: Appearance: wearing hospital gown, good hygiene, in NAD behavior: calm Psychomotor: no agitation or retardation noted Speech: mostly clear, regular rate/rhythm/volume, spontaneous TP: linear TC: looking forward to go home soon Mood: good Affect: brighter non labile SI: none HI: none VH/AH: no overt signs Delusions: no overt Insight/judgment: improving x 2 Memory/cog: Alert, oriented to place, month, year, situation is vague. MOCA completed on 09/01/2024 scored 19/30 with most impairments in executive function (not able at all to complete clock draw, place number nor hands to reflect time ten past eleven)(1/5), naming (2/3), attention (5/6), language fluency (0/1), abstraction (1/2) and recall (2/5). ACL 4.2 Data Data Completed and Pending Completed studies during hospitalization [Text1]: 08/26/24 08/27/24 08/27/24 14:00 08:03 08:04 Hold Purple Top Sodium 144 Potassium 3.0 L Chloride 110 H Carbon Dioxide 27 Anion Gap 10 L BUN 10 Creatinine 0.61 Estim Creat Clear Calc 62.9 Estimated GFR > 60 Random Glucose Fasting Glucose 130 H Estimat Average Glucose 111 Hemoglobin A1c % 5.5 Calcium 8.9 Magnesium 1.6 Total Bilirubin 0.2 AST 21 ALT 26 Alkaline Phosphatase 160 H Total Protein 5.9 L Albumin 3.3 L Triglycerides 112 Cholesterol 126 LDL Cholesterol, Calc 56 HDL Cholesterol 48 Vitamin B12 591 Folate 6.2 TSH 1.61 08/31/24 12:17 Hold Purple Top SEE NOTE Sodium 141 Potassium 3.8 D Chloride 107 Carbon Dioxide 27 Anion Gap 11 L BUN 18 H Creatinine 0.69 Estim Creat Clear Calc 73.8 Estimated GFR > 60 Random Glucose 124 H Fasting Glucose Estimat Average Glucose Hemoglobin A1c % Calcium 9.0 Magnesium Total Bilirubin 0.1 AST 23 ALT 27 Alkaline Phosphatase 173 H Total Protein 6.1 L Albumin 3.5 Triglycerides Cholesterol LDL Cholesterol, Calc HDL Cholesterol Vitamin B12 Folate TSH DS: Summary Hospital Course Hospital Course: Mrs. Leslie is a 73 year-old woman who recently had hip surgery on 07/12/2024 after hip fracture here at [facility] and was sent to [facility] from the hospital. She has been presenting as more confused, disorganized behavior, some paranoid ideas which is not her usual. 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 Pertinent labs in the ED include: cbc which shows chronic leukocytosis (not currently on steroids, unclear etiology), elevated Plt count 444, chronic normocytic anemia, CMP without electrolyte abnormalities, BUN 10, Cr 0.66, creatinine clearance 58.1, AST 26, ALT slightly elevated 49, Alk phos 191, ammonia 20, UA does not show signs of UTI. Head CT on 08/21 without acute findings. Pt is known to psychiatry and this engineering technical writer through previous assessment of hallucination while admitted medically to the unit in the setting of delirium back in 07/10/2024. at the time she had presented much improved with no overt signs of delirium. While in the ED, pt was observed talking to someone who was not there. She also presented with paranoid ideas, combative at times. Her orientation for the most part noted to be impaired to month, place, year and situation. HOSPITAL COURSE On the unit, Mrs. Leslie was admitted on a sect 12b, later as HCP was invoked, HCP signed CV. She presented more oriented than she had been in the ED in that she knew she was in the hospital, year, month and date. She had few episodes of paranoia at the beginning of the hospitalization. She did seem to respond better to olanzapine than risperidone. She was kept on olanzapine 5mg po BID. Her affect presented as less paranoid. She was sleeping and eating well. She was taking medications as prescribed. MOCA was completed scored 19/30 with severe impairment in visuospatial and executive skills, language repetition/naming/fluency and recall with intact orientation, and ACL 4.2. Pattern of cognitive impairments shows frontotemporal more than AD, also subcortical type of impairment periventricular vascular changes. These results were communicated to her family. Status at Discharge Cognitive/behavioral status at discharge: Pt with with brighter, non labile affect. No SI/HI. No overt psychosis or delusions. No aggression towards self or others. Functional status at discharge: uses cane/walker Overall status at discharge: patient is back to baseline Time Spent with Patient Time attestation: Total time managing care of this patient today _45___ minutes. Time spent: Greater than 30 minutes Discharge Plan Discharge Anticipated Discharge Date/Time: 09/02/24 08:46 Patient Disposition: Home, Self-Care Discharge Diagnosis: Major Neurocognitive Disorder Referrals: [facility] [Other] - 3-5 Days ([facility] will strat shortly after your dishcrage. You will get 8 hours of home services a week. if you have any questions or concerns please feel free to call the number listed) Erlinda Lynn PMHNP [Other] - 09/16/24 11:00 am ( You will see Erlinda Lynn in person on September 16 at 11:00am. If you need to change or cancel the appointment please call [facility] number listed) [facility] [Outside] - 1 Day (Your [facility] intake will be after your discharge. VNA services will be evaluated this week as well at home PT services starting sometime next week. If you have any questions or concerns please feel free to call the number listed.) Sushil Stewart MD [Physician] - 09/02/24 1:45 pm (You will see tomorrow 09/02 at 1:45pm. If you need to reschedule or cancel the appointment please call the number listed) Discharge Medications: New cyclobenzaprine 10 mg Tablet 10 mg PO DAILY PRN (Reason: muscle spasms) Qty: 30 0RF ixilzvsifap-wtgazvzgc-hdnknokm 100-62.5-25 mcg blister with device 1 inh inhalation DAILY Qty: 28 0RF ipratropium-albuterol 0.5 mg-3 mg(2.5 mg base)/3 mL Solution For Nebulization 3 ml inhalation QID PRN (Reason: wheezing) Qty: 90 0RF levalbuterol HCl 1.25 mg/0.5 mL solution for nebulization 1.25 mg inhalation TID PRN (Reason: shortness of breath or wheezing) Qty: 30 0RF Rx Instructions: must dilute for administration losartan 50 mg Tablet 50 mg PO BEDTIME Qty: 30 0RF Protocol: Hold for SBP< HOLD for SBP < : 90 olanzapine 5 mg Tablet 5 mg PO BID Qty: 60 0RF clopidogrel 75 mg Tablet 75 mg PO DAILY Qty: 30 0RF amlodipine 5 mg Tablet 5 mg PO DAILY Qty: 30 0RF Protocol: Hold for SBP< HOLD for SBP < : 90 aspirin 81 mg Tablet,Delayed Release (Dr/Ec) 81 mg PO DAILY Qty: 30 0RF sertraline 50 mg Tablet 50 mg PO DAILY Qty: 30 0RF nicotine 7 mg/24 hr Patch 24 Hour 7 mg transdermal DAILY Qty: 30 0RF oxycodone 5 mg Tablet 5 mg PO BID PRN (Reason: Pain (Scale Score 4-6)) Qty: 14 0RF Rx Instructions: Partial Fill upon patient request. metoprolol tartrate 25 mg Tablet 25 mg PO BID Qty: 60 0RF Protocol: Hold for SBP/HR < HOLD for SBP < : 90 HOLD for HR < : 60 trazodone 50 mg Tablet 50 mg PO BEDTIME PRN (Reason: Insomnia) Qty: 30 0RF levalbuterol HCl 1.25 mg/3 mL Solution For Nebulization 1.25 mg inhalation TID PRN (Reason: Shortness Of Breath Or Wheezing) Qty: 72 0RF Continued esomeprazole magnesium 40 mg capsule,delayed release(DR/EC) 40 mg PO DAILY@0630 fluticasone propionate 50 mcg/actuation spray,suspension 1 spray intranasal Q12H PRN (Reason: allergies) qyekajqwxh-fsbgyapsmsvxz-rnef 50-300-40 mg capsule 1 cap PO Q24H PRN (Reason: Headache) Aimovig Autoinjector 140 mg/mL auto-injector 140 mg subcut Q28D Patient Comments: due 08/21 Cuvitru 10 gram/50 mL (20 %) solution 50 ml subcut MCKENZIE@0900 Patient Comments: last dose 08/16/24? ocrelizumab 30 mg/mL Solution 600 mg IV [id number] roflumilast 500 mcg tablet 500 mcg PO DAILY nystatin 100,000 unit/mL Suspension 400,000 unit PO QID Qty: 60 0RF ondansetron HCl 4 mg Tablet 4 mg PO Q8H PRN (Reason: nausea/vomitting) magnesium hydroxide [Milk of Magnesia] 400 mg/5 mL Suspension 30 ml PO NEEDED PRN (Reason: No Bm for three days) bisacodyl 10 mg Suppository 10 mg [place] NEEDED PRN (Reason: step 2 if no BM 8 hours after MOM ) rosuvastatin 40 mg tablet 40 mg PO BEDTIME Qty: 30 0RF cholecalciferol (vitamin D3) 50 mcg (2,000 unit) capsule 50 mcg PO DAILY Qty: 30 0RF Discontinued buspirone 10 mg tablet 10 mg PO BID nitroglycerin 0.4 mg tablet, sublingual 0.4 mg sublingual Q5M PRN (Reason: Chest Pain) Rx Instructions: do not exceed 3 doses/24 hrs metoprolol tartrate 25 mg tablet 25 mg PO BID Trelegy Ellipta 100-62.5-25 mcg blister with device 1 ea inhalation DAILY levalbuterol HCl 1.25 mg/0.5 mL solution for nebulization 1.25 mg inhalation Q8H PRN (Reason: Shortness Of Breath Or Wheezing) clopidogrel 75 mg tablet 75 mg PO DAILY bupropion HCl 150 mg tablet sustained-release 12 hr 150 mg PO BID ipratropium-albuterol 0.5 mg-3 mg(2.5 mg base)/3 mL solution for nebulization 3 ml inhalation Q6H PRN (Reason: wheezing) cyclobenzaprine 10 mg tablet 10 mg PO DAILY PRN (Reason: muscle spasms) sertraline 50 mg tablet 50 mg PO DAILY losartan 50 mg Tablet 50 mg PO BEDTIME Qty: 90 0RF Protocol: Hold for SBP< HOLD for SBP < : 90 aspirin 325 mg Tablet 325 mg PO BID 35 Days Qty: 70 0RF amlodipine 10 mg Tablet 10 mg PO DAILY Qty: 90 0RF Protocol: Hold for SBP< HOLD for SBP < : 90 oxycodone-acetaminophen 10-325 mg tablet 1 tab PO Q4H PRN (Reason: Pain (Scale Score 4-6)) Qty: 20 0RF acetaminophen 325 mg Tablet 650 mg PO Q6H PRN (Reason: pain or fever greater than 100.0f) Fleet Enema 19-7 gram/118 mL Enema 118 ml [place] DAILY PRN (Reason: step 3-no BM after 8h after Bisacodyl supp) nicotine 7 mg/24 hr Patch 24 Hour 1 patch TRANSDERMAL DAILY Rx Instructions: x 8 weeks Cold and Hot (menthol) 5 % Adhesive Patch,Medicated 1 patch TOPICAL DAILY Discharge Orders: Discharge Order (Routine); Ordered 09/02/24 Ordered By: Eliz Anne Diet: Low salt diet Activity on Discharge: Use cane or walker Stand Alone Forms: Patient Portal Discharge page Print Language: Arabic Care Plan Goals: 1. Maintain mood 2. No SI/HI 3. No psychosis or delusions Health Concerns: Follow up with PCP for HTN Plan of Treatment: 1. Take medications as prescribed 2. Go to nearest ED or call 911 in event of emergency Assessment: Pt with brighter, non labile affect. No SI/HI. No VH/AH. No delusional content noted or reported. Sleeping and eating well.
== END 2024-09-02 10:50 | disposition home or self-care (01) | DRG 57 ==
LOC: HO.ED 08-24 13:09 → HO.PGERI 08-26 12:36
PROVIDERS: Admitting Provider Social Worker; Emergency Provider Emergency Medicine; PCP Internal Medicine; Visit Provider Social Worker
DX: G31.09 Other frontotemporal neurocognitive disorder (principal); F02.80 Dementia in other diseases classified elsewhere, unspecified severity, without behavioral disturbance, psychotic disturbance, mood disturbance, and anxiety; G35 Multiple sclerosis; E87.6 Hypokalemia; Z79.02 Long term (current) use of antithrombotics/antiplatelets; Z79.82 Long term (current) use of aspirin; Z79.899 Other long term (current) drug therapy
CPT/HCPCS: 36415; 70450; 70551; 71045; 71250; 80048; 80053; 80061; 80076; 81003; 82140; 82607; 82746; 82803; 83036; 83735; 83880; 84443; 84484; 85025; 93005; 94640; 97110; 97116; 97162; 99285; J1200; J2359; J3480; J3486; S9485

== ENCOUNTER → 2024-08-20 17:51 | Outpatient (BNV) | payer MEDICARE, BC, SELFPAY | PROVIDERS: Emergency Provider Emergency Medicine; Visit Provider Internal Medicine Cardiovascular Disease | DX: R94.31 Abnormal electrocardiogram [ECG] [EKG] (principal); R41.82 Altered mental status, unspecified; R00.0 Tachycardia, unspecified | CPT/HCPCS: 93010 ==

== ENCOUNTER → 2024-08-20 17:54 | Outpatient (BNV) | payer MEDICARE, BC, SELFPAY | PROVIDERS: Emergency Provider Emergency Medicine; Visit Provider Radiology Vascular & Interventional Radiology | DX: S22.080A Wedge compression fracture of T11-T12 vertebra, initial encounter for closed fracture (principal); I67.82 Cerebral ischemia; G31.89 Other specified degenerative diseases of nervous system; J18.9 Pneumonia, unspecified organism | CPT/HCPCS: 70450; 71045; 71250 ==

== ENCOUNTER → 2024-08-20 18:40 | Outpatient (BNV) | payer MEDICARE, BC, SELFPAY | PROVIDERS: Emergency Provider Emergency Medicine; Visit Provider Social Worker | DX: F03.90 Unspecified dementia, unspecified severity, without behavioral disturbance, psychotic disturbance, mood disturbance, and anxiety (principal); G92.8 Other toxic encephalopathy | CPT/HCPCS: 90792; 99232 ==

== ENCOUNTER → 2024-08-22 12:10 | Outpatient (BNV) | payer MEDICARE, BC, SELFPAY | PROVIDERS: Emergency Provider Emergency Medicine; Visit Provider Radiology Diagnostic Radiology | DX: G93.40 Encephalopathy, unspecified (principal) | CPT/HCPCS: 70551 ==

== ENCOUNTER → 2024-08-25 11:44 | Outpatient (BNV) | payer MEDICARE, BC, SELFPAY | PROVIDERS: Admitting Provider Social Worker; Emergency Provider Emergency Medicine; PCP Internal Medicine; Visit Provider Psychiatry & Neurology Neurology | DX: G92.8 Other toxic encephalopathy (principal) | CPT/HCPCS: 99222 ==

== ENCOUNTER → 2024-08-26 11:44 | Outpatient (BNV) | payer MEDICARE, BC, SELFPAY | PROVIDERS: Admitting Provider Social Worker; Emergency Provider Emergency Medicine; PCP Internal Medicine; Visit Provider Psychiatry & Neurology Psychiatry | DX: F03.90 Unspecified dementia, unspecified severity, without behavioral disturbance, psychotic disturbance, mood disturbance, and anxiety (principal); G92.8 Other toxic encephalopathy | CPT/HCPCS: 99231 ==

== ENCOUNTER 2024-08-27 09:12 | Outpatient (REF) | payer MEDICARE, BC, SELFPAY ==
--- NOTE | 2024-08-25 10:39 | PM.NEUROCN ---
History of Present Illness Data of Consult Service Date: 08/25/24 HPI Reason for consult: Encephalopathy 73 years old woman who I was asked to see for change in mental status and aggressive behavior. Apparently she had a left hip fracture and surgery in June. She was sent to hospital with worsening behavior and was noted to be aggressive and disruptive. She has been given medications including antipsychotic for controlled. When I saw her she was on over flow emergency side distress. She had significant difficulty with hearing and I had out close to her left ear to communicate with her. There was no evidence of any recent seizure-like activity or focal weakness. Review of Systems Review of Systems: Recent left hip surgery. [facility] Past Medical History Medical History MDD (major depressive disorder), recurrent episode Essential hypertension Leukocytosis History of CAD (coronary artery disease) Peripheral vascular disease Chronic back pain GERD (gastroesophageal reflux disease) High cholesterol HTN (hypertension) Immune disorder COPD (chronic obstructive pulmonary disease) Multiple sclerosis Surgical History Surgical History History of angioplasty History of heart artery stent Social History Social History Household Members: Spouse Housing: House Do you presently have visiting nurse or other home services: No Alcohol intake: never Comment: sitter Patient Tobacco Use Status: Current everyday Tobacco user Tobacco use type: Cigarette Cigarette Packs Per Day: 1 Cigarettes Per Day: 20.0 Smoked in Last 30 Days: No Use of substances other than those prescribed or required for medical reasons: No Advance Directives: Yes Advance Directives on File: Yes Advance Directives Date on File: 11/22/22 Do you have a plan to hurt others: No Plan service: No Current occupational status: retired Meds Allergies Allergy/AdvReac Type Severity Reaction Status Date / Time codeine [CODEINE] Allergy Unknown Hives Verified 08/20/24 17:59 Home Medications ?Medication ?Instructions ?Recorded ?Confirmed ?Last Taken ?Type buspirone 10 mg tablet 10 mg PO BID 11/15/22 08/21/24 07/06/24 History mxjrckblzy-jzyurnpgfjwrq-noikfqhj 1 cap PO Q24H PRN Headache 11/15/22 08/21/24 Unknown History 50 mg-300 mg-40 mg capsule cholecalciferol (vitamin D3) 50 50 mcg PO DAILY 11/15/22 08/21/24 07/06/24 History mcg (2,000 unit) capsule clopidogrel 75 mg tablet 75 mg PO DAILY 11/15/22 08/21/24 07/06/24 History erenumab-aooe 140 mg/mL 140 mg subcut Q28D 11/15/22 08/21/24 1 Week Ago History subcutaneous auto-injector ~06/30/24 (Aimovig Autoinjector) esomeprazole magnesium 40 mg 40 mg PO DAILY@0630 11/15/22 08/21/24 07/06/24 History capsule,delayed release fluticasone fur. 100 mcg-umeclid 1 ea inhalation DAILY 11/15/22 08/21/24 07/06/24 History 62.5 mcg-vilant 25 mcg inhalat.powder (Trelegy Ellipta) fluticasone propionate 50 1 spray intranasal Q12H PRN 11/15/22 08/21/24 2 Days Ago History mcg/actuation nasal allergies ~11/13/22 spray,suspension immun glob G 10 50 ml subcut MCKENZIE@0900 11/15/22 08/21/24 06/29/24 History gram/50mL(20%)-gly-IgA over 50 mcg/mL subcutaneous suzanna (Cuvitru) levalbuterol HCl 1.25 mg/0.5 mL 1.25 mg inhalation Q8H PRN 11/15/22 08/21/24 Unknown History solution for nebulization Shortness Of Breath Or Wheezing metoprolol tartrate 25 mg tablet 25 mg PO BID 11/15/22 08/21/24 07/06/24 History nitroglycerin 0.4 mg sublingual 0.4 mg sublingual Q5M PRN Chest 11/15/22 08/21/24 2 Days Ago History tablet Pain ~11/13/22 ocrelizumab 30 mg/mL intravenous 600 mg IV [id number] 11/15/22 08/21/24 6 Months Ago History solution ~01/05/24 bupropion HCl 150 mg tablet,12 hr 150 mg PO BID 07/07/24 08/22/24 07/06/24 History sustained-release cyclobenzaprine 10 mg tablet 10 mg PO DAILY PRN muscle spasms 07/07/24 08/21/24 Unknown History ipratropium 0.5 mg-albuterol 3 mg 3 ml inhalation Q6H PRN wheezing 07/07/24 08/21/24 Unknown History (2.5 mg base)/3 mL nebulization soln roflumilast 500 mcg tablet 500 mcg PO DAILY 07/07/24 08/21/24 07/06/24 History rosuvastatin 40 mg tablet 40 mg PO BEDTIME 07/07/24 08/21/24 07/05/24 History sertraline 50 mg tablet 50 mg PO DAILY 07/07/24 08/21/24 Unknown History acetaminophen 325 mg tablet 650 mg PO Q6H PRN pain or fever 08/20/24 08/21/24 Unknown History greater than 100.0f bisacodyl 10 mg rectal suppository 10 mg IL NEEDED PRN step 2 if 08/20/24 08/21/24 Unknown History no BM 8 hours after MOM magnesium hydroxide 400 mg/5 mL 30 ml PO NEEDED PRN No Bm for 08/20/24 08/21/24 Unknown History oral suspension (Milk of Magnesia) three days ondansetron HCl 4 mg tablet 4 mg PO Q8H PRN nausea/vomitting 08/20/24 08/21/24 Unknown History sodium phosphates 19 gram-7 118 ml IL DAILY PRN step 3-no BM 08/20/24 08/21/24 Unknown History gram/118 mL enema (Fleet Enema) after 8h after Bisacodyl supp menthol 5 % topical patch (Cold 1 patch topical DAILY 08/21/24 08/21/24 Unknown History and Hot (menthol)) nicotine 7 mg/24 hr daily 1 patch transdermal DAILY 08/21/24 08/21/24 Unknown History transdermal patch Physical Exam Neuro: Other: She is alert and awake with normal spontaneity and fluency of speech. Communication with her was difficult because of severe hearing difficulty and had to shout close to her left ear. She could not tell me why she was here. She was following simple commands but not consistently. Face was symmetrical. Visual joiner were difficult to determine. There was no obvious focal arm or leg weakness. She was able to wiggle toes and was hesitant to move her left leg. Results Labs Labs: Her brain MRI and head CT were reviewed. MRI of brain revealed hyperintensities in brainstem and lula suggestive of central pontine myelinolysis typically seen with metabolic abnormality such as binge drinking. Otherwise, she had mild microvascular disease except that there was 1 larger ischemic lesion and left centrum semiovale, which has been there for couple of years. 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 Treatment is symptomatic. Hydration is recommended. Hearing aid could help. She could benefit from regular does of relatively small dose of antipsychotic such as quetiapine 50 mg a day or a similar drug. Procedures Date of Service Date of Service: 08/25/24
--- OUTSIDE RECORDS SUMMARY | 2024-08-28 09:57 | XMS_ITS | Patient Health Record ---
Author Organization [facility] [place] Address [address] [place] [address] Care Team Providers Care Digital Marketing Intern Name Role Phone Sushil Stewart MD Primary Care Provider Unavail able Epifanio Palacios Unavailable [phone] Allergies Allergen (clinical drug ingredient) Drug/Non Drug [...] W/U Status Risk Notes Problem Atherosclerosis of [place] arteries of the extremities ([id number]) Atherosclerosis of [place] artery of both lower extremities, with unspecified presence of clinical manifestation (I70.203) Active confirmed Q7(A), Q8(2B), Q9(1B,2 C) Vital Signs Height 5 ft 3 in in 03/10/2024 Weight 130 lbs 03/10/2024 BMI 23.03 kg/m2 03/10/2024 Procedures Procedure Date Ordered Date Performed Result Body Sit e 74363-KEOPNXR NAIL, 6 OR MORE 10/08/2023 N/A 58748-HUJT SKIN LESIONS, 2 TO 4 10/08/2023 N/A 30345-AJJLDMU NAIL, 6 OR MORE 12/24/2023 N/A 24004-MFPT SKIN LESIONS, 2 TO 4 12/24/2023 N/A 25900-JHCOQEB NAIL, 6 OR MORE 03/10/2024 N/A 04816-NHPG SKIN LESIONS, 2 TO 4 03/10/2024 N/A Encounters Encounter Location Date Provider Diagnosis [facility] [address] 10/08/2023 Epifanio Palacios Atherosclerosis of [place] artery of both lower extremities, with unspecified presence of clinical manifestation I70.203 ; Tinea unguium B35.1 ; Pain in right toe(s) M79.674 ; Pain in left toe(s) M79.675 ; Bursitis of intermetatarsal bursa of left foot M77.52 ; Metatarsalgia of left foot M77.42 ; Bursitis of intermetatarsal bursa of right foot M77.51 and Metatarsalgia, right foot M77.[address] [facility] [address] 12/24/2023 Epifanio Palacios Atherosclerosis of [place] artery of both lower extremities, with unspecified presence of clinical manifestation I70.203 ; Tinea unguium B35.1 ; Pain in right toe(s) M79.674 ; Pain in left toe(s) M79.675 ; Bursitis of intermetatarsal bursa of left foot M77.52 ; Metatarsalgia of left foot M77.42 ; Bursitis of intermetatarsal bursa of right foot M77.51 and Metatarsalgia, right foot M77.[address] [facility] [address] 03/10/2024 Epifanio Palacios Atherosclerosis of [place] artery of both lower extremities, with unspecified presence of clinical manifestation I70.203 ; Tinea unguium B35.1 ; Pain in right toe(s) M79.674 ; Pain in left toe(s) M79.675 and Contusion of right great toe without damage to nail, initial encounter S90.111A [facility] [address] 09/09/2023 Epifanio Palacios [address] [address] 10/08/2023 Epifanio Palacios [address] [address] 12/25/2023 Epifanio Palacios [address] [address] 07/07/2024 Epifanio Palacios Assessments Encounter Date Diagnosis (ICD Code) Assessment Notes Treatment Notes Treatment Clinical Notes Section Notes 10/08/2023 Tinea unguium (ICD-10 - B35.1) 10/08/2023 Atherosclerosis of [place] artery of both lower extremities, with unspecified presence of clinical manifestation (ICD-10 - I70.203) 12/24/2023 Tinea unguium (ICD-10 - B35.1) 12/24/2023 Atherosclerosis of [place] artery of both lower extremities, with unspecified presence of clinical manifestation (ICD-10 - I70.203) 03/10/2024 Tinea unguium (ICD-10 - B35.1) 03/10/2024 Atherosclerosis of [place] artery of both lower extremities, with unspecified [...] X ray : Foot, right 3V 03/19/2023 17464-WVZKERG NAIL, 6 OR MORE 10/08/2023 06595-SRYQWHS NAIL, 6 OR MORE 12/24/2023 52296-MOVSBOQ NAIL, 6 OR MORE 03/10/2024 87014-TOMEXZA NAIL, 6 OR MORE 10/10/2018 73751-EWXE SKIN LESIONS, 2 TO 4 03/10/20 06670-OLCI SKIN LESIONS, 2 TO 4 12/24/19 43364-UMWK SKIN LESIONS, 2 TO 4 10/08/19 24 Next Appt Details Provider Name:Epifanio Palacios , 10/30/2024 01:15:00 PM, [address] [place], [address], Insurance Providers Payer Name Payer Address Payer Phone Subscriber Number Group Number Insured Name Patient Relationship to Insured Coverage Start Date Coverage End Date Medicare National [employer] [address] [facility] [place] [address] [id number] Isabela Leslie Self - patient is the insured [facility] [address] [place] [address] [id number] Isabela Leslie Self - patient is the insured Medical (General) History Medical History History ICD Code Back,Hip,and Knee pain Gall bladder problems Headaches High blood pressure Chicken pox Multiple sclerosis Osteoporosis chronic sinusitis Surgical History Surgery Date(Month/Year) hysterectomy cholecystectomy back surgery x4
--- OUTSIDE RECORDS SUMMARY | 2024-08-28 09:57 | XMS_ITS | Encounter Summary ---
Author Organization [facility] Address [address] [place] [address] Care Team Providers Care Access Control Officer Name Role Phone Sushil Stewart MD Primary Care Provider [phone] Encounter Details Date Type Department Care Team (Late st Contact Info) Description 08/23/2024 Lab Requisition [facility] - Main Lab [address] [facility] [place] [place] [address] Carmela Thomas MD [address] [address] Heart failure, unspecified (CMS/HCC) Social History Tobacco [...] on file documented as of this encounter Visit Diagnoses Diagnosis Heart failure, unspecified (CMS/HCC) Heart failure, unspecified documented in this encounter Care Teams Access Control Officer Relationship Specialty Start Date End Date Sushil Stewart MD [address] [place], [place] PCP - General Internal Medicine 10/14/17 documented as of this encounter
--- OUTSIDE RECORDS SUMMARY | 2024-08-28 09:57 | XMS_ITS | Encounter Summary ---
Author Organization [facility] Address [address] [place] [address] Care Team Providers Care Supervisor Laboratory Animal Facility Name Role Phone Sushil Stewart MD Primary Care Provider [phone] Encounter Details Date Type Department Care Team (Late st Contact Info) Description 08/16/2024 Lab Requisition [facility] - Main Lab [address] [place] [address] Cramela Thomas MD [address] [phone] Heart failure, unspecified (CMS/HCC) Social History Tobacco [...] LAB CHEMISTRY METHOD 08/17/2024 2:03 PM EST [facility] Potassium 3.7 3.5 - 5.5 mmol/L LAB CHEMISTRY METHOD 08/17/2024 2:03 PM [facility] Chloride 102 96 - 110 mmol/L LAB CHEMISTRY METHOD 08/17/2024 2:03 PM [facility] CO2 30 21 - 32 mmol/L LAB CHEMISTRY METHOD 08/17/2024 2:03 PM [facility] Anion Gap 7 3 - 11 LAB CHEMISTRY METHOD 08/17/2024 2:03 PM [facility] Glucose 157(H) 70 - 100 mg/dL LAB CHEMISTRY METHOD 08/17/2024 2:03 PM [facility] BUN 13 5 - 25 mg/dL LAB CHEMISTRY METHOD 08/17/2024 2:03 PM [facility] Creatinine 0.65 0.50 - 1.10 mg/dL LAB CHEMISTRY METHOD 08/17/2024 2:03 PM [facility] eGFR 94 >=60 mL/min/1. 73m2 LAB CHEMISTRY METHOD 08/17/2024 2:03 PM [facility] Comment:Calculation based on the??Chronic Kidney Disease Epidemiology Collaboration (CKD-EPI) equation refit??without adjustment for race. BUN/Creatinine Ratio 20.0 LAB CHEMISTRY METHOD 08/17/2024 2:03 PM [facility] Calcium 9.8 8.5 - 10.5 mg/dL LAB CHEMISTRY METHOD 08/17/2024 2:03 PM [facility] AST (SGOT) 23 10 - 42 unit/L LAB CHEMISTRY METHOD 08/17/2024 2:03 PM [facility] ALT (SGPT) 70(H) 10 - 60 unit/L LAB CHEMISTRY METHOD 08/17/2024 2:03 PM [facility] Alkaline Phosphatase 177(H) 42 - 121 unit/L LAB CHEMISTRY METHOD 08/17/2024 2:03 PM [facility] Total Protein 6.0 6.0 - 8.0 g/dL LAB CHEMISTRY METHOD 08/17/2024 2:03 PM [facility] Albumin 2.9(L) 3.2 - 5.0 g/dL LAB CHEMISTRY METHOD 08/17/2024 2:03 PM [facility] Total Bilirubin 0.2 0.0 - 1.4 mg/dL LAB CHEMISTRY METHOD 08/17/2024 2:03 PM [facility] Blood Venous blood specimen / Unknown Venipuncture / Unknown 08/17/2024 9:34 AM EST 08/17/2024 11:30 AM EST us Carmela Thomas MD LAB BLOOD ORDERABLES Fin al Result [facility] [address] [place] [address], * (ABNORMAL) Complete blood count (08/17/2024 9:34 AM EST) WBC 13.9(H) 4.8 - 10.8 K/mcL LAB HEMETOLOGY METHOD 08/17/2024 1:30 PM [facility] RBC 3.10(L) 3.80 - 4.80 M/mcL LAB HEMETOLOGY METHOD 08/17/2024 1:30 PM [facility] Hemoglobin 9.4(L) 11.5 - 16.0 g/dL LAB HEMETOLOGY METHOD 08/17/2024 1:30 PM [facility] Hematocrit 30.2(L) 35.0 - 47.0 % LAB HEMETOLOGY METHOD 08/17/2024 1:30 PM [facility] MCV 97.7 79.0 - 98.0 FL LAB HEMETOLOGY METHOD 08/17/2024 1:30 PM [facility] MCH 30.4 27.0 - 32.0 pcg LAB HEMETOLOGY METHOD 08/17/2024 1:[address] [facility] MCHC 31.1(L) 32.0 - 37.0 g/dL LAB HEMETOLOGY METHOD 08/17/2024 1:30 PM [facility] RDW 14.0 11.0 - 15.0 % LAB HEMETOLOGY METHOD 08/17/2024 1:30 PM [facility] Platelets 427(H) 130 - 400 K/mcL LAB HEMETOLOGY METHOD 08/17/2024 1:[address] [facility] MPV 10.3 7.0 - 11.0 FL LAB HEMETOLOGY METHOD 08/17/2024 1:30 PM [facility] NRBC 0.0 <1.0 % LAB HEMETOLOGY METHOD 08/17/2024 1:30 PM [facility] NRBC Absolute 0.00 <0.10 K/mcL LAB HEMETOLOGY METHOD 08/17/2024 1:30 PM [facility] Blood Venous blood specimen / Unknown Venipuncture / Unknown 08/17/2024 9:34 AM EST 08/17/2024 11:30 AM EST us Carmela Thomas MD LAB BLOOD ORDERABLES Fin al Result [facility] [address] [place] [address], documented in this encounter Visit Diagnoses Diagnosis Heart failure, unspecified (CMS/HCC) Heart failure, unspecified documented in this encounter Care Teams Supervisor Laboratory Animal Facility Relationship Specialty Start Date End Date Sushil Stewart MD [address] [place] [address] [address] [place], [place] PCP - General Internal Medicine 10/14/17 documented as of this encounter
--- OUTSIDE RECORDS SUMMARY | 2024-08-28 09:57 | XMS_ITS | Encounter Summary ---
Author Organization [facility] Address [address] [place] [address] Care Team Providers Care Surgery Consultant Name Role Phone Sushil Stewart MD Primary Care Provider [phone] Encounter Details Date Type Department Care Team (Late st Contact Info) Description 07/27/2024 Lab Requisition [facility] - Main Lab [address] [place] [address] Carmela Thomas MD [address] [phone] Heart failure, unspecified (CMS/HCC) Social History Tobacco [...] CHEMISTRY METHOD 07/27/2024 2:15 PM EST [facility] Potassium 3.7 3.5 - 5.5 mmol/L [...] MD LAB BLOOD ORDERABLES Fin al Result [facility] [address] [place] [address], * (ABNORMAL) Complete blood count (07/27/2024 8:36 [...] LAB HEMETOLOGY METHOD 07/27/2024 1:03 PM EST [facility] RDW 13.4 11.0 - [...] MD LAB BLOOD ORDERABLES Fin al Result [facility] [address] [place] [address], documented in this encounter Visit Diagnoses Diagnosis Heart failure, unspecified (CMS/HCC) Heart failure, unspecified documented in this encounter Care Teams Surgery Consultant Relationship Specialty Start Date End Date Sushil Stewart MD [address] [place] [address] [address] [place], [place] PCP - General Internal Medicine 10/14/17 documented as of this encounter
--- OUTSIDE RECORDS SUMMARY | 2024-08-28 09:57 | XMS_ITS | Encounter Summary ---
Author Organization [facility] Address [address] [place] [address] Care Team Providers Care Pharmaceutical Detailer Name Role Phone Sushil Stewart MD Primary Care Provider [phone] Encounter Details Date Type Department Care Team (Late st Contact Info) Description 08/08/2024 Lab Requisition [facility] - Main Lab [address] [place] [address] Carmela Thomas MD [address] [phone] Heart failure, unspecified (CMS/HCC) Social History Tobacco [...] LAB CHEMISTRY METHOD 08/10/2024 12:42 PM EST [facility] ([facility] Potassium 3.3(L) 3.5 - 5.5 mmol/L LAB CHEMISTRY METHOD 08/10/2024 12:42 PM [facility] Chloride 106 96 - 110 mmol/L LAB CHEMISTRY METHOD 08/10/2024 12:42 PM [facility] CO2 29 21 - 32 mmol/L LAB CHEMISTRY METHOD 08/10/2024 12:42 PM [facility] Anion Gap 9 3 - 11 LAB CHEMISTRY METHOD 08/10/2024 12:42 PM [facility] Glucose 94 70 - 100 mg/dL LAB CHEMISTRY METHOD 08/10/2024 12:42 PM [facility] BUN 18 5 - 25 mg/dL LAB CHEMISTRY METHOD 08/10/2024 12:42 PM [facility] Creatinine 0.62 0.50 - 1.10 mg/dL LAB CHEMISTRY METHOD 08/10/2024 12:42 PM [facility] LAB eGFR 95 >=60 mL/min/1. 73m2 LAB CHEMISTRY METHOD 08/10/2024 12:42 PM [facility] Comment:Calculation based on the??Chronic Kidney Disease Epidemiology Collaboration (CKD-EPI) equation refit??without adjustment for race. BUN/Creatinine Ratio 29.0 LAB CHEMISTRY METHOD 08/10/2024 12:42 PM [facility] Calcium 9.2 8.5 - 10.5 mg/dL LAB CHEMISTRY METHOD 08/10/2024 12:42 PM [facility] AST (SGOT) 38 10 - 42 unit/L LAB CHEMISTRY METHOD 08/10/2024 12:42 PM [facility] ALT (SGPT) 68(H) 10 - 60 unit/L LAB CHEMISTRY METHOD 08/10/2024 12:42 PM [facility] Alkaline Phosphatase 145(H) 42 - 121 unit/L LAB CHEMISTRY METHOD 08/10/2024 12:42 PM [facility] Total Protein 5.8(L) 6.0 - 8.0 g/dL LAB CHEMISTRY METHOD 08/10/2024 12:42 PM [facility] Albumin 2.7(L) 3.2 - 5.0 g/dL LAB CHEMISTRY METHOD 08/10/2024 12:42 PM [facility] Total Bilirubin 0.3 0.0 - 1.4 mg/dL LAB CHEMISTRY METHOD 08/10/2024 12:42 PM EST [facility] Blood Venous blood specimen / Unknown Venipuncture / Unknown 08/10/2024 8:28 AM EST 08/10/2024 11:20 AM EST us Carmela Thomas MD LAB BLOOD ORDERABLES Fin al Result [facility] [address] [place] [address], * (ABNORMAL) Complete blood count (08/10/2024 8:28 AM EST) WBC 10.7 4.8 - 10.8 K/mcL LAB HEMETOLOGY METHOD 08/10/2024 1:20 PM [facility] RBC 3.10(L) 3.80 - 4.80 M/mcL LAB HEMETOLOGY METHOD 08/10/2024 1:20 PM [facility] Hemoglobin 9.3(L) 11.5 - 16.0 g/dL LAB HEMETOLOGY METHOD 08/10/2024 1:20 PM [facility] Hematocrit 29.3(L) 35.0 - 47.0 % LAB HEMETOLOGY METHOD 08/10/2024 1:20 PM [facility] MCV 95.8 79.0 - 98.0 FL LAB HEMETOLOGY METHOD 08/10/2024 1:20 PM [facility] MCH 30.4 27.0 - 32.0 pcg LAB HEMETOLOGY METHOD 08/10/2024 1:20 PM EST [facility] MCHC 31.7(L) 32.0 - 37.0 g/dL LAB HEMETOLOGY METHOD 08/10/2024 1:20 PM EST [facility] RDW 14.2 11.0 - 15.0 % LAB HEMETOLOGY METHOD 08/10/2024 1:20 PM EST [facility] Platelets 280 130 - 400 K/mcL LAB HEMETOLOGY METHOD 08/10/2024 1:20 PM EST [facility] MPV 10.2 7.0 - 11.0 FL LAB HEMETOLOGY METHOD 08/10/2024 1:20 PM EST [facility] NRBC 0.0 <1.0 % LAB HEMETOLOGY METHOD 08/10/2024 1:20 PM [facility] NRBC Absolute 0.00 <0.10 K/mcL LAB HEMETOLOGY METHOD 08/10/2024 1:20 PM [facility] Blood Venous blood specimen / Unknown Venipuncture / Unknown 08/10/2024 8:28 AM EST 08/10/2024 11:21 AM EST us Carmela Thomas MD LAB BLOOD ORDERABLES Fin al Result [facility] [address] [place] [address], documented in this encounter Visit Diagnoses Diagnosis Heart failure, unspecified (CMS/HCC) Heart failure, unspecified documented in this encounter Care Teams Pharmaceutical Detailer Relationship Specialty Start Date End Date Sushil Stewart MD [address] [place] [address] [address] [place], [place] PCP - General Internal Medicine 10/14/17 documented as of this encounter
--- OUTSIDE RECORDS SUMMARY | 2024-08-28 09:57 | XMS_ITS ---
Author Organization [facility] Address [address] [place] [address] Care Team Providers Care Fish Bait Picker Name Role Phone Sushil Stewart MD Primary Care Provider Unavail Epifanio Marin Unavailable [phone] Allergies Allergen (clinical drug ingredient) Drug/Non Drug [...] Active Encounters Encounter Location Date Provider Diagnosis [address] [address] 07/07/2024 Epifanio Palacios Plan Of Treatment Next Appt Details Provider Name:Epifanio Palacios , 10/30/2024 01:15:00 PM, [address] [place] [address], [address], Progress Notes * Isabela MANZO MDOB: [birth year] (73 yo F)Acc No.[id number]:07/07/2024 Progress Note Patient:?JOVANY Isabela Michelle Provider:?Epifanio Palacios DPM :1950???Age:73 Y???Sex:Female D ate:07/07/2024 Address:[address] [facility] Pcp:Sushil Stewart MD Subjective: * Chief Complaints: [...] Palacios DPM Date:?2024 Generated for Nadeem candelario/Tanvir/Brissaitting on:?08/28/2024 09:57 AM EDT
--- OUTSIDE RECORDS SUMMARY | 2024-08-28 09:57 | XMS_ITS ---
Author Organization [facility] Care Team Providers Care Class A Regional Drivers Name Role Phone Christoph Wayne Unavailable Unavailable Carmela Thomas Unavailable Unavailable [facility] [employer], Ismael Decker Unavailable Unavailable Genia Driver Unavailable Unavailable Allergies and adverse reactions Code CodeSystem Substance Reaction Severity StartDate Concern Status 2670 RXNORM Codeine Unknown 07/24/2024 active Care Team Name Role Address Phone Organization Dates Carmela Thomas PCP [address] [place] [address], [facility] (Office): : [facility] 07/24/2024 - present Christoph Wayne Attending Physician NADEEN, [facility] 07/24/2024 - present Ismael Lo NP Attending Physician [address] [place] [address], [facility] (Office): [facility] 07/24/2024 - present Genia Driver Attending Physician [facility] 07/24/2024 - present Imaging Narrative Note Date Imaging Narrative No te 08/20/2024 HIP UNI W OR W/O PEL VIS 1 VIEW, RIGHTSee NoteFINDINGS: No acute fracture or dislocation is seen in the right hip or pelvis. The right hip joint appears intact. There is a subcapital fracture in the neck of the left femur with orthopedic hardware in place.CONCLUSION: No significant bone or joint abnormality is seen in the right hip.ELECTRONICALLY SIGNED BY DANIELLE ARIZA M.D. 08/20/2024 6:49:31 AM EST.Reason for Study: Z91.81 HISTORY OF FALLINGPrincipal Result Groundhand: DANIELLE ARIZA ([id number])Directional Survey Drafter: PARI SARABIA (DSEXTON)Retail Pricing Coordinator Directional Survey Drafter: PARISH Goals Section Description Status Target Date Isabela will be able to make b asic needs known on a daily basis through the review date. Active 11/13/2024 Isabela will be free from comp lications of cardiac problems through the review date. Active 11/13/2024 Isabela will be free from s/sx of pain, or will express/exhibit relief of pain after administration of ordered meds, alternative comfort measures. Active 11/13/2024 Isabela will have improved moo d state (happier, calmer appearance, no s/sx of depression, anxiety or sadness) through the review date. Active 11/13/2024 Isabela will have no s/sx of p oor oxygen absorption through the review date. Active 11/13/2024 Isabela will improve current l evel of function in through the review date. Active 11/13/2024 Isabela will remain free from skin breakdown due to incontinence and brief use through the review date. Active 11/13/2024 Isabela/HCP/Guardian's Advance d Directives will be honored through next review. Active 11/13/2024 Isabela will be active in prog arti 2x a week and be open to room visits through next review date. Active 11/09/2024 Isabela will be free from disc omfort or adverse reactions related to antiplatelet use through the review date. Active 11/13/2024 Isabela will be free of falls through the review d ate. Active 11/02/2024 Isabela will be free of s/sx o f respiratory infections through review date. Active 11/13/2024 Isabela will display optimal b reathing patterns daily through review date. Active 11/13/2024 Isabela will maintain or devel op clean and intact skin by the review date. Active 11/13/2024 Isabela will verbalize adequat e relief of pain or ability to cope with incompletely relieved pain through the review date. Active 11/13/2024 Isabela's diet texture will be appropriate to meet her needs to consume >/=75% most meals, will accept supplement to consume >=75% with gradual wt gain, 1/2 to 1#/week to goal wt of 117#. Active 11/13/2024 The resident will have less than two episodes of incontinence per day through the review date Active 11/13/2024 Functional Status Code Name Recorded Time Value Entered By Chair/ywk-nu-hkklo transfer 08/20/2024 Partial/moder ate assistance kmolina Eating 08/20/2024 Setup or clean-up assistance kmolina Lower body dressing 08/20/2024 Partial/moderate assi stance kmolina Lying to sitting on side of bed 08/20/2024 Partial/moderate assistance kmolina Oral hygiene 08/20/2024 Partial/moderate assistance CRthomas Personal hygiene 08/20/2024 Substantial/maximal assi stance CRthomas Roll left and right 08/20/2024 Partial/moderate assi stance CRthomas Shower/bathe self 08/20/2024 Substantial/maximal ass istance CRthomas Sit to lying 08/20/2024 Substantial/maximal assistan ce CRthomas Sit to stand 08/20/2024 Substantial/maximal assistan ce CRthomas Toilet transfer 08/20/2024 Substantial/maximal ximena tance CRthomas Toileting hygiene 08/20/2024 Substantial/maximal ass istance CRthomas Upper body dressing 08/20/2024 Substantial/maximal a ssistance CRthomas Wheel 150 feet 08/20/2024 Substantial/maximal assist ance CRthomas Wheel 50 feet with two turns 08/20/2024 Substantial/ maximal assistance CRthomas Immunizations Immunization Status Vaccine Details Vaccine Code CodeSystem Date Notes PPSV23 completed pneumococcal polysaccharide vaccine, 23 valent 33 CVX created date: 07/24/2024 administere d date: 06/24/2021 Influenza-High Dose(Flublok) completed created date: 07/24/2024 administere d date: 04/22/2024 COVID-19, mRNA, LNP-S, PF, ariadna-sucrose, 30 mcg/0.3 mL completed SARS-COV-2 (COVID-19) vaccine, mRNA, spike protein, LNP, preservative free, ariadna-sucrose, 30 mcg/0.3 mL dose 309 CVX created date: 07/24/2024 administere d date: 04/22/2024 Medications Section Medication Name Status Code CodeSystem Dose Route Frequency Admin Type Sig Text Start Date End Date Fleet Enema Enema 7-19 GM/118ML active 760797 RXNORM 1 dose Rectal as needed PRN Insert 1 dose rectal ly as needed for Consti pation (Step 3) as needed if no bowel moveme nt for 8 hours after bisaco dyl suppos itory. 2024 - Milk of Magnesia Suspension 400 MG/5ML active 480866 RXNORM 30 ml Oral as needed PRN Give 30 ml by mouth as needed for Consti pation (Step 1) As needed if no bowel moveme nt for three days. (Do not use for Hemodi alysis patien ts). 2024 - Acetaminophen Tablet 325 MG active 464820 RXNORM 2 tablet Oral as needed PRN Give 2 tablet by mouth every 6 hours as needed for Pain Pain Total dosage for acetam inophe n and medica tions that contai n acetam inophe n should not exceed 3 grams / 24 hours. AND Give 2 tablet by mouth every 6 hours as needed for Fever greate r than 100.0F Total dosage for acetam inophe n and medica tions that contai n acetam inophe n should not exceed 3 grams / 24 hours. 2024 - 519505 RXNORM 2 tablet Oral as needed PRN Give 2 tablet by mouth every 6 hours as needed for Pain Pain Total dosage for acetam inophe n and medica tions that contai n acetam inophe n should not exceed 3 grams / 24 hours. AND Give 2 tablet by mouth every 6 hours as needed for Fever greate r than 100.0F Total dosage for acetam inophe n and medica tions that contai n acetam inophe n should not exceed 3 grams / 24 hours. 2024 - Bisacodyl Suppository 10 MG active 701293 RXNORM 1 suppos itory Rectal as needed PRN Insert 1 suppos itory rectal ly as needed for If no bowel moveme nt for 8 hours after Milk of Magnes ia 2024 - Aimovig Subcutaneous Solution Auto-injector 140 MG/ML active 408600 5 RXNORM 140 mg Subcuta neous one time a day Routine Inject 140 mg subcut aneous ly one time a day every 28 day(s) for chroni c migrai casimiro 2024 - Nicotine Transdermal Patch 24 Hour aborted 14 mg Transde rmal one time a day Routine Apply 14 mg transd ermall y one time a day for smokin g cessat ion 07/27 Butalbital-AP AP-Caffeine Oral Capsule 50-300-40 MG active 958094 RXNORM 1 capsul e Oral as needed PRN Give 1 capsul e by mouth every 24 hours as needed for headac he 2024 - Metoprolol Tartrate Oral Tablet 25 MG active 952215 RXNORM 25 mg Oral two times a day Routine Give 25 mg by mouth two times a day for HTN 2024 - Losartan Potassium Oral Tablet 50 MG active 414910 RXNORM 50 mg Oral at bedtime Routine Give 50 mg by mouth at bedtim e for htn 2024 - Aspirin Oral Tablet 325 MG active 343113 RXNORM 325 mg Oral two times a day Routine Give 325 mg by mouth two times a day for antico ag 2024 - Esomeprazole Magnesium Oral Capsule Delayed Release 40 MG active 673237 RXNORM 40 mg Oral one time a day Routine Give 40 mg by mouth one time a day for GERD 2024 - Nystatin Mouth/Throat Suspension active 047810 unit Oral four times a day Routine Give 997884 unit by mouth four times a day for fungal infect ion 2024 - Ipratropium-A lbuterol Solution 0.5-2.5 (3) MG/3ML active 354992 2 RXNORM 1 vial Inhalat ion as needed PRN 1 vial inhale orally via nebuli zer every 6 hours as needed for wheeze CASSIA = Clear lung sounds A DV = Quaker itious D IMI = Dimini shed 2024 - Cyclobenzapri ne HCl Oral Tablet 10 MG active 987354 RXNORM 1 tablet Oral as needed PRN Give 1 tablet by mouth every 24 hours as needed for muscle s spasms 2024 - Cuvitru Subcutaneous Solution 10 GM/50ML aborted 279178 1 RXNORM 50 ml Subcuta neous one time a day Routine Inject 50 ml subcut aneous ly one time a day starti ng on the and ending on the every month for DO NOT SEND FAMILY TO SUPPLY 08/14 Trelegy Ellipta Inhalation Aerosol Powder Breath Activated 100-62.5-25 MCG/ACT aborted 768641 4 RXNORM 1 inhala tion Inhalat ion one time a day Routine 1 inhala tion inhale orally one time a day for asthma /respi ratory 08/04 amLODIPine Besylate Oral Tablet 10 MG active 518253 RXNORM 10 mg Oral one time a day Routine Give 10 mg by mouth one time a day for htn 2024 - Levalbuterol HCl Nebulization Solution 1.25 MG/0.5ML active 962143 9 RXNORM 1 vial Inhalat ion as needed PRN 1 vial inhale orally via nebuli zer every 8 hours as needed for shortn ess of breath or wheeze CASSIA = Clear lung sounds A DV = Quaker itious D IMI = Dimini shed 2024 - buPROPion HCl ER (SR) Oral Tablet Extended Release 12 Hour 150 MG aborted 567204 RXNORM 1 tablet Oral two times a day Routine Give 1 tablet by mouth two times a day for mood disord er 08/08 Rosuvastatin Calcium Oral Tablet 40 MG active 107574 RXNORM 40 mg Oral one time a day Routine Give 40 mg by mouth one time a day for choles terol contro l 2024 - Sertraline HCl Oral Tablet 50 MG active 279395 RXNORM 50 mg Oral one time a day Routine Give 50 mg by mouth one time a day for depres alli 2024 - Amoxicillin-P ot Clavulanate Oral Tablet 875-125 MG complete d 871687 RXNORM 1 tablet Oral two times a day Routine Give 1 tablet by mouth two times a day for pnuemo valeria for 7 Days 08/01 Percocet Oral Tablet 5-325 MG aborted 777946 0 RXNORM 1 tablet Oral as needed PRN Give 1 tablet by mouth every 6 hours as needed for pain 07/26 Cholecalcifer ol Oral Capsule aborted 100 mcg Oral one time a day Routine Give 100 mcg by mouth one time a day for supple ment 07/26 Ocrelizumab Intravenous Solution 300 MG/10ML active 352034 0 RXNORM 600 mg Intrave nous one time a day Routine Use 600 mg intrav enousl y one time a day every 6 month( s) starti ng on the for 1 day(s) for MS DO NOT SEND FAMILY IS TO SUPPLY 2024 - busPIRone HCl Oral Tablet 10 MG active 800906 RXNORM 10 mg Oral two times a day Routine Give 10 mg by mouth two times a day for mood/m uscle 2024 - Fluticasone Propionate Nasal Suspension 50 MCG/ACT active 661468 7 RXNORM 1 spray in nostril as needed PRN 1 spray in nostri l every 12 hours as needed for allerg ies 2024 - Nitroglycerin Sublingual Tablet Sublingual active 1 tablet Subling ual as needed PRN Give 1 tablet sublin gually every 5 minute s as needed for DO NOT EXCEED 3 doses in 24 hours 2024 - Clopidogrel Bisulfate Oral Tablet 75 MG active 979081 RXNORM 1 tablet Oral one time a day Routine Give 1 tablet by mouth one time a day for antico agulat ion relate d to UNSPEC IFIED INTRAC APSULA R FRACTU RE OF LEFT FEMUR, SUBSEQ UENT ENCOUN TER FOR CLOSED FRACTU RE WITH ROUTIN E HEALIN G (S72.0 12D) 2024 - Roflumilast Oral Tablet 500 MCG active 801177 9 RXNORM 1 tablet Oral one time a day Routine Give 1 tablet by mouth one time a day for copd 2024 - oxyCODONE-Torsten taminophen Oral Tablet 10-325 MG active 895476 4 RXNORM 1 tablet Oral as needed PRN Give 1 tablet by mouth every 04 hours as needed for pain 2024 - Vitamin D3 Oral Tablet 25 MCG active 2 tablet Oral one time a day Routine Give 2 tablet by mouth one time a day for Defici ency 2024 - Cold & Hot Medicated External Patch active n/a n/a Topical one time a day Routine Apply to Affect ed Areas topica lly one time a day for Pain and remove per schedu le 2024 - Nicotine Transdermal Patch 24 Hour active 7 mg Transde rmal one time a day Routine Apply 7 mg transd ermall y one time a day for smokin g cessat ion for 8 Weeks 09/22 Trelegy Ellipta Inhalation Aerosol Powder Breath Activated 100-62.5-25 MCG/ACT active 453243 4 RXNORM 1 inhala tion Inhalat ion one time a day Routine 1 inhala tion inhale orally one time a day for asthma /respi ratory rinse mouth after admini strati on 2024 - Zofran Oral Tablet 4 MG active 088015 RXNORM 4 mg Oral as needed PRN Give 4 mg by mouth every 8 hours as needed for nausea /vomit ing 2024 - buPROPion HCl ER (SR) Oral Tablet Extended Release 12 Hour 150 MG active 775218 RXNORM 1 tablet Oral one time a day Routine Give 1 tablet by mouth one time a day for mood disord er 2024 - Cuvitru Subcutaneous Solution 10 GM/50ML active 159152 1 RXNORM 50 ml Subcuta neous in the morning Routine Inject 50 ml subcut aneous ly in the mornin g every Sun for DO NOT SEND FAMILY TO SUPPLY 2024 - Mental Status Section Date Assessment Total Score Description 07/30/2024 BIMS 10 moderate cognit david impairment CAM 0 No delirium ind icated Problems Problem # Description Date of onset Resolved Date Code CodeSystem Concern Status 1 MULTIPLE SCLEROSIS 08/13/[address] active 2 CHRONIC OBSTRUCTIVE PULMONARY DISEASE, UNSPECIFIED 07/24/[address] active 3 CHRONIC RESPIRATORY FAILURE WITH HYPOXIA 07/24/[address] active 4 DEPENDENCE ON SUPPLEMENTAL OXYGEN 07/24/[address] active 5 DYSPHAGIA, OROPHARYNGEAL PHASE 07/24/[address] active 6 ENCOUNTER FOR OTHER ORTHOPEDIC AFTERCARE 07/24/[address] active 7 ESSENTIAL (PRIMARY) HYPERTENSION 07/24/[address] active 8 GENERALIZED ANXIETY DISORDER 07/24/[address] active 9 HISTORY OF FALLING 07/24/[address] active 10 MAJOR DEPRESSIVE DISORDER, RECURRENT, MODERATE 07/24/[address] active 11 MUSCLE WEAKNESS (GENERALIZED) 07/24/[address] active 12 OPIOID USE, UNSPECIFIED, UNCOMPLICATED 07/24/[address] active 13 OTHER ABNORMALITIES OF GAIT AND MOBILITY 07/24/[address] active 14 PNEUMONIA, UNSPECIFIED ORGANISM 07/24/[address] active 15 TOBACCO USE 07/24/2024 Z72.0 ICD-10-CM active 16 UNSPECIFIED INTRACAPSULAR FRACTURE OF LEFT FEMUR, SUBSEQUENT ENCOUNTER FOR CLOSED FRACTURE WITH ROUTINE HEALING 07/24/2024200966388480 SNOMED CT active 17 UNSPECIFIED MOOD [AFFECTIVE] DISORDER 07/24/[address] active 18 UNSPECIFIED SYSTOLIC (CONGESTIVE) HEART FAILURE 07/24/[address] active 19 WEAKNESS 07/24/[address] active Reason for Referral No Reasons for Referral Entered Diagnostic Results Result Code Code System Date Test Result Interpretation Reference Range Status Notes 97011-0 LOINC 08/20 HIP UNI W OR W/O PELVIS 1 VIEW Completed Result for: ISABELA MANZO ( 1950, F) 16321-7 LOINC 08/19 HIP UNI W OR W/O PELVIS 1 VIEW Final HIP UNI W OR W/ O PELVIS 1 VIEW, RIGHTSee NoteFINDINGS: No acute fracture or dislocation is seen in the right hip or pelvis. The right hip joint appears intact. There is a subcapital fracture in the neck of the left femur with orthopedic hardware in place.CONCLUSION: No significant bone or joint abnormality is seen in the right hip.ELECTRONICALL Y SIGNED BY DANIELLE ARIZA M.D. 08/20/2024 6:49:31 AM EST.Reason for Study: Z91.81 HISTORY OF FALLINGPrincipal Result Groundhand: DANIELLE ARIZA ([id number])Techn ician: PARI SARABIA ([email or web address])Transcri ption Directional Survey Drafter: PARISH Test Code Code System Name Date 08/19/2024 Social History Social History Observation Description Start Date End Date Code Code System Current Smoking Status Tobacco smoking consumption unknown 428856312 SNOMED CT Sex Assigned At Female 1950 66874-1 [facility] Vital Signs Code Code System Vitals Name Values and Units Timing Information 56067-2 [facility] Pain Level Value=2.0 08/20/2024 8462-4 [facility] Blood Pressure-Diastolic Value=72 Un its=mmHg 08/20/2024 8480-6 LOINC Blood Pressure-Systolic Gjqco=578 Un its=mmHg 08/20/2024 8867-4 [facility] Heart rate Value=92.0 Units=/min 11/2024 84090-4 [facility] O2 % BldC Oximetry Value=96.0 Units= % 08/20/2024 9279-1 [facility] Respiratory Rate Value=18.0 Units=/m in 08/20/2024 8310-5 [facility] Body Temperature Value=97.3 Units=?? F 08/20/2024 07995-7 LOINC Weight Rowdk=998.0 Units=Lbs 08/2024 8302-2 LOINC Height Value=61.0 Units=Inches 07/27/2024
--- OUTSIDE RECORDS SUMMARY | 2024-08-28 09:57 | XMS_ITS ---
Author Organization [facility] Care Team Providers Care Hammer Repairer Name Role Phone Christoph Wayne Unavailable Unavailable Carmela Thomas Unavailable Unavailable Wally CORREA, Ismael Decker Unavailable Unavailable Genia Driver Unavailable Allergies and adverse reactions Code CodeSystem Substance Reaction Severity StartDate Concern Status 2670 RXNORM Codeine Unknown 07/24/2024 active Care Team Name Role Address Phone Organization Dates Carmela Thomas PCP [address] [place] [address], [facility] (Office): : [facility] 07/24/2024 - 08/23/2024 Christoph Wayne Attending Physician [place], [facility] 07/24/2024 - 08/23/2024 Ismael Lo NP Attending Physician [address] [place] [address], [facility] (Office): [facility] 07/24/2024 - 08/23/2024 Genia Drievr Attending Physician [address] [place] [address], [place] (Office): [facility] 07/24/2024 - 08/23/2024 Imaging Narrative Note Date Imaging Narrative No [...] for Study: Z91.81 HISTORY OF FALLINGPrincipal Result Hris Manager: DANIELLE ARIZA ([id number])Brainer: PARI SARABIA ([email or web address])Cardiac Surgeon Brainer: PARISH Mercedes Section Description Status Target Date Isabela will [...] Code Name Recorded Time Value Entered By Chair/jcm-ig-[id number] transfer 08/22/2024 Not assessed acoke Eating 08/22/2024 Not assessed acoke Lower body dressing 08/22/2024 Not assessed acoke Lying to sitting on side of bed 08/22/2024 Not asses sed acoke Oral hygiene 08/22/2024 Not assessed acoke Personal hygiene 08/22/2024 Not assessed acoke Roll left and right 08/22/2024 Not assessed acoke Shower/bathe self 08/22/2024 Not assessed acoke Sit to lying 08/22/2024 Not assessed acoke Sit to stand 08/22/2024 Not assessed acoke Toilet transfer 08/22/2024 Not assessed acoke Toileting hygiene 08/22/2024 Not assessed acoke Upper body dressing 08/22/2024 Not assessed acoke Wheel 150 feet 08/22/2024 Not assessed acoke Wheel 50 feet with two turns 08/22/2024 Not assessed acoke Immunizations Immunization Status Vaccine Details Vaccine Code [...] Date Fleet Enema Enema 7-19 GM/118ML active 073430 RXNORM 1 dose Rectal as needed PRN Insert 1 dose rectal ly as needed for Consti pation (Step 3) as needed if no bowel moveme nt for 8 hours after bisaco dyl suppos itory. 2024 - Milk of Magnesia Suspension 400 MG/5ML active 444960 RXNORM 30 ml Oral as needed PRN Give 30 ml by mouth as needed for Consti pation (Step 1) As needed if no bowel moveme nt for three days. (Do not use for Hemodi alysis patien ts). 2024 - Acetaminophen Tablet 325 MG active 513099 RXNORM 2 tablet Oral as needed PRN [...] 3 grams / 24 hours. 2024 - 922635 RXNORM 2 tablet Oral as needed PRN [...] 2024 - Bisacodyl Suppository 10 MG active 740718 RXNORM 1 suppos itory Rectal as needed PRN Insert 1 suppos itory rectal ly as needed for If no bowel moveme nt for 8 hours after Milk of Magnes ia 2024 - Aimovig Subcutaneous Solution Auto-injector 140 MG/ML active 892325 5 RXNORM 140 mg Subcuta neous one [...] Butalbital-AP AP-Caffeine Oral Capsule 50-300-40 MG active 823545 RXNORM 1 capsul e Oral as needed PRN Give 1 capsul e by mouth every 24 hours as needed for headac he 2024 - Metoprolol Tartrate Oral Tablet 25 MG active 130958 RXNORM 25 mg Oral two times a day Routine Give 25 mg by mouth two times a day for HTN 2024 - Losartan Potassium Oral Tablet 50 MG active 346184 RXNORM 50 mg Oral at bedtime Routine Give 50 mg by mouth at bedtim e for htn 2024 - Aspirin Oral Tablet 325 MG active 765397 RXNORM 325 mg Oral two times a day Routine Give 325 mg by mouth two times a day for antico ag 2024 - Esomeprazole Magnesium Oral Capsule Delayed Release 40 MG active 829943 RXNORM 40 mg Oral one time a day Routine Give 40 mg by mouth one time a day for GERD 2024 - Nystatin Mouth/Throat Suspension active 403216 unit Oral four times a day Routine Give 744067 unit by mouth four times a day for fungal infect ion 2024 - Ipratropium-A lbuterol Solution 0.5-2.5 (3) MG/3ML active 735045 2 RXNORM 1 vial Inhalat ion as needed PRN 1 vial inhale orally via nebuli zer every 6 hours as needed for wheeze CASSIA = Clear lung sounds A DV = Taoism itious D IMI = Dimini shed 2024 - Cyclobenzapri ne HCl Oral Tablet 10 MG active 098461 RXNORM 1 tablet Oral as needed PRN Give 1 tablet by mouth every 24 hours as needed for muscle s spasms 2024 - Cuvitru Subcutaneous Solution 10 GM/50ML aborted 228830 1 RXNORM 50 ml Subcuta neous one time a day Routine Inject 50 ml subcut aneous ly one time a day starti ng on the 6th and ending on the 7th every month for DO NOT SEND FAMILY TO SUPPLY 08/14 Trelegy Ellipta Inhalation Aerosol Powder Breath Activated 100-62.5-25 MCG/ACT aborted 539751 4 RXNORM 1 inhala tion Inhalat ion one time a day Routine 1 inhala tion inhale orally one time a day for asthma /respi ratory 08/04 amLODIPine Besylate Oral Tablet 10 MG active 043192 RXNORM 10 mg Oral one time a day Routine Give 10 mg by mouth one time a day for htn 2024 - Levalbuterol HCl Nebulization Solution 1.25 MG/0.5ML active 489282 9 RXNORM 1 vial Inhalat ion as needed PRN 1 vial inhale orally via nebuli zer every 8 hours as needed for shortn ess of breath or wheeze CASSIA = Clear lung sounds A DV = Taoism itious D IMI = Dimini shed 2024 - buPROPion HCl ER (SR) Oral Tablet Extended Release 12 Hour 150 MG aborted 779147 RXNORM 1 tablet Oral two times a day Routine Give 1 tablet by mouth two times a day for mood disord er 08/08 Rosuvastatin Calcium Oral Tablet 40 MG active 421912 RXNORM 40 mg Oral one time a day Routine Give 40 mg by mouth one time a day for choles terol contro l 2024 - Sertraline HCl Oral Tablet 50 MG active 178037 RXNORM 50 mg Oral one time a day Routine Give 50 mg by mouth one time a day for depres alli 2024 - Amoxicillin-P ot Clavulanate Oral Tablet 875-125 MG complete d 811123 RXNORM 1 tablet Oral two times a day Routine Give 1 tablet by mouth two times a day for pnuemo valeria for 7 Days 08/01 Percocet Oral Tablet 5-325 MG aborted 157368 0 RXNORM 1 tablet Oral as needed PRN Give 1 tablet by mouth every 6 hours as needed for pain 07/26 Cholecalcifer ol Oral Capsule aborted 100 mcg Oral one time a day Routine Give 100 mcg by mouth one time a day for supple ment 07/26 Ocrelizumab Intravenous Solution 300 MG/10ML active 446404 0 RXNORM 600 mg Intrave nous one time a day Routine Use 600 mg intrav enousl y one time a day every 6 month( s) starti ng on the for 1 day(s) for MS DO NOT SEND FAMILY IS TO SUPPLY 2024 - busPIRone HCl Oral Tablet 10 MG active 116833 RXNORM 10 mg Oral two times a day Routine Give 10 mg by mouth two times a day for mood/m uscle 2024 - Fluticasone Propionate Nasal Suspension 50 MCG/ACT active 700036 7 RXNORM 1 spray in nostril as [...] Clopidogrel Bisulfate Oral Tablet 75 MG active 900034 RXNORM 1 tablet Oral one time a day Routine Give 1 tablet by mouth one time a day for antico agulat ion relate d to UNSPEC IFIED INTRAC APSULA R FRACTU RE OF LEFT FEMUR, SUBSEQ UENT ENCOUN TER FOR CLOSED FRACTU RE WITH ROUTIN E HEALIN G (S72.0 12D) 2024 - Roflumilast Oral Tablet 500 MCG active 393895 9 RXNORM 1 tablet Oral one time a day Routine Give 1 tablet by mouth one time a day for copd 2024 - oxyCODONE-Torsten taminophen Oral Tablet 10-325 MG active 358719 4 RXNORM 1 tablet Oral as needed [...] Aerosol Powder Breath Activated 100-62.5-25 MCG/ACT active 856408 4 RXNORM 1 inhala tion Inhalat ion one time a day Routine 1 inhala tion inhale orally one time a day for asthma /respi ratory rinse mouth after admini strati on 2024 - Zofran Oral Tablet 4 MG active 954712 RXNORM 4 mg Oral as needed PRN Give 4 mg by mouth every 8 hours as needed for nausea /vomit ing 2024 - buPROPion HCl ER (SR) Oral Tablet Extended Release 12 Hour 150 MG active 814950 RXNORM 1 tablet Oral one time a day Routine Give 1 tablet by mouth one time a day for mood disord er 2024 - Cuvitru Subcutaneous Solution 10 GM/50ML active 059733 1 RXNORM 50 ml Subcuta neous in [...] CodeSystem Concern Status 1 MULTIPLE SCLEROSIS 08/13/[address] active 2 CHRONIC OBSTRUCTIVE PULMONARY DISEASE, UNSPECIFIED 07/24/[address] active 3 CHRONIC RESPIRATORY FAILURE WITH HYPOXIA 07/24/[address] active 4 DEPENDENCE ON SUPPLEMENTAL OXYGEN 07/24/[address] active 5 DYSPHAGIA, OROPHARYNGEAL PHASE 07/24/[address] active 6 ENCOUNTER FOR OTHER ORTHOPEDIC AFTERCARE 07/24/[address] active 7 ESSENTIAL (PRIMARY) HYPERTENSION 07/24/[address] active 8 GENERALIZED ANXIETY DISORDER 07/24/[address] active 9 HISTORY OF FALLING 07/24/[address] active 10 MAJOR DEPRESSIVE DISORDER, RECURRENT, MODERATE 07/24/[address] active 11 MUSCLE WEAKNESS (GENERALIZED) 07/24/[address] active 12 OPIOID USE, UNSPECIFIED, UNCOMPLICATED 07/24/[address] active 13 OTHER ABNORMALITIES OF GAIT AND MOBILITY 07/24/[address] active 14 PNEUMONIA, UNSPECIFIED ORGANISM 07/24/[address] active 15 TOBACCO USE 07/24/2024 Z72.0 ICD-10-CM active 16 UNSPECIFIED INTRACAPSULAR FRACTURE OF LEFT FEMUR, SUBSEQUENT ENCOUNTER FOR CLOSED FRACTURE WITH ROUTINE HEALING 07/24/2024200932036793 SNOMED CT active 17 UNSPECIFIED MOOD [AFFECTIVE] DISORDER 07/24/[address] active 18 UNSPECIFIED SYSTOLIC (CONGESTIVE) HEART FAILURE 07/24/[address] active 19 WEAKNESS 07/24/[address] active Reason for Referral No Reasons for Referral Entered Diagnostic Results Result Code Code System Date Test Result Interpretation Reference Range Status Notes 31938-9 LOINC 08/20 HIP UNI W OR W/O PELVIS 1 VIEW Completed Result for: JOVANYKIRSTIENE ( 1950, F) 89180-2 LOINC 08/19 HIP UNI W OR W/O [...] for Study: Z91.81 HISTORY OF FALLINGPrincipal Result Hris Manager: DANIELLE ARIZA ([id number])Techn ician: PARI SARABIA (DSEXTON)Transcri ption Brainer: LE Test Code Code System Name Date 08/19/2024 Social History Social History Observation Description Start Date End Date Code Code System Current Smoking Status Tobacco smoking consumption unknown 661354100 SNOMED CT Sex Assigned At Female 1950 [address]296-1 [facility] Vital Signs Code Code System Vitals Name Values and Units Timing Information 80681-8 LOINC Pain Level Value=1.0 08/21/2024 8462-4 LOINC Blood Pressure-Diastolic Value=72 Un its=mmHg 08/20/2024 8480-6 LOINC Blood Pressure-Systolic Bfapb=188 Un its=mmHg 08/20/2024 8867-4 [facility] Heart rate Value=92.0 Units=/min 11/2024 45450-0 INC O2 % BldC Oximetry Value=96.0 Units= % 08/20/2024 9279-1 LOINC Respiratory Rate Value=18.0 Units=/m in 08/20/2024 8310-5 LOINC Body Temperature Value=97.3 Units=?? F 08/20/2024 95046-8 LOINC Weight Ndtbh=407.0 Units=Lbs 08/2024 8302-2 LOINC Height Value=61.0 Units=Inches 07/27/2024
--- OUTSIDE RECORDS SUMMARY | 2024-08-28 09:57 | XMS_ITS ---
Author Organization [facility] Address [address] [place] [address] Care Team Providers Care Senior Sales Associate Name Role Phone Terry TERRY, Sushil Primary Care Provider Unavail able Epifanio Palacios Unavailable [phone] REASON FOR VISIT same day cx appt 07/07/24 Encounters Encounter [facility] [address] [address] 07/07/2024 Epifanio Palacios Plan Of Treatment Next Appt Details Provider Name:Epifanio Palacios , 10/30/2024 01:15:00 PM, [address] [place] [address], [phone], Progress Notes * Isabela MANZO MDOB: [birth year] (73 yo F)Acc No.[id number]:07/07/2024 Patient:?JOVANY Isabela Michelle :1950???Age:73 Y???Sex:Female Address:[address] [place] [address], [address] * true * Date:? Generated for Nelyi andree/Tanvir/eTransmitting on:?08/28/2024 09:56 AM EDT
--- OUTSIDE RECORDS SUMMARY | 2024-08-28 09:58 | XMS_ITS | Clinical Summary ---
Author Organization [address] Address [address] [place] [address] Phone Care Team Providers Care Scrap Iron Cutter Name Role Phone Sushil Stewart MD Primary Care Provider Encounters Date Type Department Care Team Description 08/23/[address] [facility] [address] [place] [phone] Carmela Thomas MD Heart failure, unspecified (CMS/HCC) 08/16/2024 Lab Requisition [facility] Lab [address] [place] [phone] Carmela Thomas MD Heart failure, unspecified (CMS/HCC) 08/08/2024 Lab Requisition [facility] Lab [address] [place] [phone] Carmela Thomas MD Heart failure, unspecified (CMS/HCC) 08/01/2024 Lab Requisition [facility] Lab [address] [place] [phone] Carmela Thomas MD Heart failure, unspecified (CMS/HCC) 07/27/2024 Lab Requisition [facility] Lab [address] [place] [phone] Carmela Thomas MD Heart failure, unspecified (CMS/HCC) from Last 3 Months Surgical History Surgery Date Site/Laterality Comments BACK SURGERY PROCEDURE: HISTORICAL BACK SURGERY; COMMENT: x 3 OTHER SURGICAL HISTORY PROCEDURE: HISTORY OTHER; COMMENT: sinus surgery HYSTERECTOMY PROCEDURE: HISTORICAL HYSTERECTOMY CHOLECYSTECTOMY PROCEDURE: HISTORICAL CHOLECYSTECTOMY ANGIOPLASTY PROCEDURE: HISTORICAL ANGIOPLASTY W/STENT OTHER SURGICAL HISTORY 11/03/2021 PROCEDURE: [place] ARTHRD ANT INTERBODY MIN DSC CRV BELOW C2; COMMENT: C5-6 ACDF, Dr. Doss Medical History Medical History Date Comments COPD (chronic obstructive pu lmonary disease) ([facility]/HCC) 04/11/2018 DX:COPD (chronic obstructive pulmonary disease) ([facility]) GERD (gastroesophageal reflu x disease) 04/11/2018 DX:GERD [...] LAB HEMETOLOGY METHOD 08/17/2024 1:30 PM EST [facility] RBC 3.10(L) 3.80 - 4.80 M/[facility] LAB HEMETOLOGY METHOD 08/17/2024 1:30 PM [facility] Hemoglobin 9.4(L) 11.5 - 16.0 g/dL LAB HEMETOLOGY METHOD 08/17/2024 1:30 PM [facility] LAB Hematocrit 30.2(L) 35.0 - 47.0 % LAB HEMETOLOGY METHOD 08/17/2024 1:30 PM EST [facility] LAB MCV 97.7 79.0 - 98.0 FL LAB HEMETOLOGY METHOD 08/17/2024 1:30 PM [facility] LAB MCH 30.4 27.0 - 32.0 pcg LAB HEMETOLOGY METHOD 08/17/2024 1:30 PM EST [facility] LAB MCHC 31.1(L) 32.0 - 37.0 g/dL LAB HEMETOLOGY METHOD 08/17/2024 1:30 PM [facility] RDW 14.0 11.0 - 15.0 % LAB HEMETOLOGY METHOD 08/17/2024 1:30 PM [facility] LAB Platelets 427(H) 130 - 400 K/mcL LAB HEMETOLOGY METHOD 08/17/2024 1:30 PM EST [facility] LAB MPV 10.3 7.0 - 11.0 FL LAB HEMETOLOGY METHOD 08/17/2024 1:30 PM [facility] NRBC 0.0 <1.0 % LAB HEMETOLOGY METHOD 08/17/2024 1:30 PM [facility] LAB NRBC Absolute 0.00 <0.10 K/mcL LAB HEMETOLOGY METHOD 08/17/2024 1:30 PM [facility] Blood Venous blood specimen / Unknown Venipuncture / Unknown 08/17/2024 9:34 AM EST 08/17/2024 11:30 AM EST us Carmela Thomas MD LAB BLOOD ORDERABLES Fin al Result [facility] [address] [place] [address], * (ABNORMAL) Comprehensive metabolic panel (08/17/2024 9:34 AM EST) Only the most recent of4 resultswithin the time period is included. Sodium 139 133 - 145 mmol/L LAB CHEMISTRY METHOD 08/17/2024 2:03 PM [facility] Potassium 3.7 3.5 - 5.5 mmol/L LAB CHEMISTRY METHOD 08/17/2024 2:03 PM [facility] Chloride 102 96 - 110 mmol/L LAB CHEMISTRY METHOD 08/17/2024 2:03 PM [facility] CO2 30 21 - 32 mmol/L LAB CHEMISTRY METHOD 08/17/2024 2:03 PM [facility] Anion Gap 7 3 - 11 LAB CHEMISTRY METHOD 08/17/2024 2:03 PM [facility] Glucose 157(H) 70 - 100 mg/dL LAB CHEMISTRY METHOD 08/17/2024 2:03 PM [facility] BUN 13 5 - 25 mg/dL LAB CHEMISTRY METHOD 08/17/2024 2:03 PM [facility] Creatinine 0.65 0.50 - 1.10 mg/dL LAB CHEMISTRY METHOD 08/17/2024 2:03 PM [facility] eGFR 94 >=60 mL/min/1. 73m2 LAB CHEMISTRY METHOD 08/17/2024 2:03 PM [facility] Comment:Calculation based on the??Chronic Kidney Disease Epidemiology Collaboration (CKD-EPI) equation refit??without adjustment for race. BUN/Creatinine Ratio 20.0 LAB CHEMISTRY METHOD 08/17/2024 2:03 PM [facility] Calcium 9.8 8.5 - 10.5 mg/dL LAB CHEMISTRY METHOD 08/17/2024 2:03 PM [facility] AST (SGOT) 23 10 - 42 unit/L LAB CHEMISTRY METHOD 08/17/2024 2:03 PM [facility] ALT (SGPT) 70(H) 10 - 60 unit/L LAB CHEMISTRY METHOD 08/17/2024 2:03 PM EST [facility] Alkaline Phosphatase 177(H) 42 - 121 unit/L LAB CHEMISTRY METHOD 08/17/2024 2:03 PM [facility] Total Protein 6.0 6.0 - 8.0 g/dL LAB CHEMISTRY METHOD 08/17/2024 2:03 PM [facility] Albumin 2.9(L) 3.2 - 5.0 g/dL LAB CHEMISTRY METHOD 08/17/2024 2:03 PM [facility] Total Bilirubin 0.2 0.0 - 1.4 mg/dL LAB CHEMISTRY METHOD 08/17/2024 2:03 PM [facility] Blood Venous blood specimen / Unknown Venipuncture / Unknown 08/17/2024 9:34 AM EST 08/17/2024 11:30 AM EST Carmela Thomas MD LAB BLOOD ORDERABLES Fin al Result [facility] [address] [place] [address], from Last 3 Months Insurance MEDICARE Care Teams Scrap Iron Cutter Relationship Specialty Start Date End Date Sushil Stewart MD [address] [place] [address] [address] [place], [place] PCP - General Internal Medicine 10/14/17
--- OUTSIDE RECORDS SUMMARY | 2024-08-28 09:58 | XMS_ITS | Encounter Summary ---
Author Organization [facility] Address [address] [place] [address] Care Team Providers Care Medical Equipment Repair Technician Name Role Phone Sushil Stewart MD Primary Care Provider [phone] Encounter Details Date Type Department Care Team (Late st Contact Info) Description 08/01/2024 Lab Requisition [facility] [address] [place] [address] Carmela Thomas MD [address] [phone] Heart failure, unspecified (CMS/HCC) Social History Tobacco [...] LAB CHEMISTRY METHOD 08/03/2024 11:[address] [facility] Potassium 3.2(L) 3.5 - 5.5 mmol/L LAB CHEMISTRY METHOD 08/03/2024 11:51 AM [facility] LAB Chloride 101 96 - 110 mmol/L LAB CHEMISTRY METHOD 08/03/2024 11:51 AM [facility] LAB CO2 33(H) 21 - 32 mmol/L LAB CHEMISTRY METHOD 08/03/2024 11:51 AM [facility] LAB Anion Gap 6 3 - 11 LAB CHEMISTRY METHOD 08/03/2024 11:51 AM [facility] LAB Glucose 87 70 - 100 mg/dL LAB CHEMISTRY METHOD 08/03/2024 11:51 AM [facility] LAB BUN 16 5 - 25 mg/dL LAB CHEMISTRY METHOD 08/03/2024 11:51 AM [facility] LAB Creatinine 0.62 0.50 - 1.10 mg/dL LAB CHEMISTRY METHOD 08/03/2024 11:51 AM [facility] LAB eGFR 95 >=60 mL/min/1. 73m2 LAB CHEMISTRY METHOD 08/03/2024 11:51 AM [facility] LAB Comment:Calculation based on the??Chronic Kidney Disease Epidemiology Collaboration (CKD-EPI) equation refit??without adjustment for race. BUN/Creatinine Ratio 25.8 LAB CHEMISTRY METHOD 08/03/2024 11:51 AM [facility] LAB Calcium 9.4 8.5 - 10.5 mg/dL LAB CHEMISTRY METHOD 08/03/2024 11:51 AM [facility] LAB AST (SGOT) 37 10 - 42 unit/L LAB CHEMISTRY METHOD 08/03/2024 11:51 AM [facility] LAB ALT (SGPT) 63(H) 10 - 60 unit/L LAB CHEMISTRY METHOD 08/03/2024 11:51 AM [facility] LAB Alkaline Phosphatase 193(H) 42 - 121 unit/L LAB CHEMISTRY METHOD 08/03/2024 11:51 AM [facility] LAB Total Protein 5.9(L) 6.0 - 8.0 g/dL LAB CHEMISTRY METHOD 08/03/2024 11:51 AM [facility] LAB Albumin 3.0(L) 3.2 - 5.0 g/dL LAB CHEMISTRY METHOD 08/03/2024 11:51 AM [facility] LAB Total Bilirubin 0.3 0.0 - 1.4 mg/dL LAB CHEMISTRY METHOD 08/03/2024 11:51 AM [facility] LAB Blood Venous blood specimen / Unknown Venipuncture / Unknown 08/03/2024 7:22 AM EST 08/03/2024 10:51 AM EST us Carmela Thomas MD LAB BLOOD ORDERABLES Fin al Result [facility] LAB [address] [place] [address], * (ABNORMAL) Complete blood count (08/03/2024 7:22 AM EST) WBC 11.0(H) 4.8 - 10.8 K/mcL LAB HEMETOLOGY METHOD 08/03/2024 11:15 AM [facility] LAB RBC 3.60(L) 3.80 - 4.80 M/mcL LAB HEMETOLOGY METHOD 08/03/2024 11:15 AM [facility] LAB Hemoglobin 10.9(L) 11.5 - 16.0 g/dL LAB HEMETOLOGY METHOD 08/03/2024 11:15 AM [facility] LAB Hematocrit 33.8(L) 35.0 - 47.0 % LAB HEMETOLOGY METHOD 08/03/2024 11:15 AM [facility] LAB MCV 94.9 79.0 - 98.0 FL LAB HEMETOLOGY METHOD 08/03/2024 11:15 AM [facility] LAB MCH 30.6 27.0 - 32.0 pcg LAB HEMETOLOGY METHOD 08/03/2024 11:15 AM EST [facility] LAB MCHC 32.2 32.0 - 37.0 g/dL LAB HEMETOLOGY METHOD 08/03/2024 11:15 AM [facility] LAB RDW 13.5 11.0 - 15.0 % LAB HEMETOLOGY METHOD 08/03/2024 11:15 AM EST [facility] LAB Platelets 347 130 - 400 K/mcL LAB HEMETOLOGY METHOD 08/03/2024 11:15 AM EST [facility] LAB MPV 10.4 7.0 - 11.0 FL LAB HEMETOLOGY METHOD 08/03/2024 11:15 AM [facility] LAB NRBC 0.0 <1.0 % LAB HEMETOLOGY METHOD 08/03/2024 11:15 AM [facility] LAB NRBC Absolute 0.00 <0.10 K/mcL LAB HEMETOLOGY METHOD 08/03/2024 11:15 AM [facility] LAB Blood Venous blood specimen / Unknown Venipuncture / Unknown 08/03/2024 7:22 AM EST 08/03/2024 10:51 AM EST us Carmela Thomas MD LAB BLOOD ORDERABLES Fin al Result [facility] [address] [place] [address], documented in this encounter Visit Diagnoses Diagnosis Heart failure, unspecified (CMS/HCC) Heart failure, unspecified documented in this encounter Care Teams Medical Equipment Repair Technician Relationship Specialty Start Date End Date Sushil Stewart MD [address] [place] [address] [address] [place], [place] PCP - General Internal Medicine 10/14/17 documented as of this encounter
== END 2024-08-27 09:13 | disposition home or self-care (01) ==
LOC: HO.HOSX 09:12
PROVIDERS: Visit Provider Physician Assistant
DX: Z13.89 Encounter for screening for other disorder (principal)

== ENCOUNTER 2024-09-11 08:27 | Outpatient (REF) | payer MEDICARE, BC, SELFPAY ==
--- NOTE | ~2024-09-11 | XR_ITS ---
EXAMINATION: XR PELVIS 1-2 VIEWS HISTORY: M25.559 - Pain in unspecified hip COMPARISON: Comparison is made with the prior examination dated 07/11/2024. FINDINGS: A single AP view of the pelvis is submitted. The bones are osteopenic. The patient is status post internal fixation of the previously seen subcapital fracture with 3 cannulated screws. The hip joint spaces are maintained. There are disc prostheses in the lower lumbar spine. There are vascular stents in the iliac region. XR/XR pelvis 1-2V IMPRESSION: Status post internal fixation of a subcapital fracture of the left femur. Electronically signed by: Morgan Chapin MD 09/11/2024 01:29 PM EDT
== END 2024-09-11 08:28 | disposition home or self-care (01) ==
LOC: HO.HOSX 08:27
PROVIDERS: Visit Provider Physician Assistant
DX: M25.559 Pain in unspecified hip (principal); S72.012A Unspecified intracapsular fracture of left femur, initial encounter for closed fracture
CPT/HCPCS: 72170; 99212

== ENCOUNTER 2024-09-11 12:05 | Outpatient (AMB) | payer MEDICARE, BC, SELFPAY ==
--- NOTE | 2024-09-11 12:14 | MHC.OFFVIS ---
Intake Visit Reasons: PO - left hip CRPP 07/12/24 Intake Note: Isabela is a 73 year old female who presents today for a post op appointment s/p left hip CRPP 07/12/2024 Patient reports she is having pain. 6/10 in pain scale. Her grandson Felipe is here with her today. Allergies codeine [CODEINE] Allergy (Unknown, Verified 08/20/24 17:59) Hives HPI HPI PO - left hip CRPP 07/12/24 DR: Details: Ms. Leslie is a 73-year-old female who is status post left hip CRPP done on 07/12/[address] Rodriguez. Patient presents the office today using a walker to assist with ambulation. She reports that she is supposed to have physical therapy coming to her house. She is in the process of working with the visiting nurses to set this up. [facility] Medical History MDD (major depressive disorder), recurrent episode Essential hypertension Leukocytosis History of CAD (coronary artery disease) Peripheral vascular disease Chronic back pain GERD (gastroesophageal reflux disease) High cholesterol HTN (hypertension) Immune disorder COPD (chronic obstructive pulmonary disease) Multiple sclerosis Surgical History History of angioplasty History of heart artery stent Social History Household Members: None Housing: Assisted Living Facility Do you presently have visiting nurse or other home services: No Alcohol intake: never Comment: 5 miinute checks Patient Tobacco Use Status: Never used Tobacco Tobacco use type: Cigarette Cigarette Packs Per Day: 1 Cigarettes Per Day: 20.0 Advance Directives Date on File: 11/22/22 service: No Current occupational status: retired Sexual orientation: Straight/Heterosexual Review of Systems Const All systems reviewed & are unremarkable except as noted in HPI and below Physical Exam Const General: cooperative, healthy appearing and no acute distress Resp Effort & Inspection: normal respiratory effort and able to speak in complete sentences Cardio Rate: regular rate Peripheral pulses: Peripheral pulses 2+ throughout Skin Lesions: no lesions Rashes: no rashes Extrem Other: Left hip: Able to perform a straight leg raise. Good internal external rotation. Able to dorsiflex and plantar flex. NVI. Assessment & Plan Assessment & Plan (1) Subcapital fracture of left hip: Code(s): S72.012A - Unspecified intracapsular fracture of left femur, initial encounter for closed fracture Category: Medical Plan Ms. Leslie is a 73-year-old female who is status post left hip CRPP done on 07/12/[address] Rodriguez. Patient presents the office today using a walker to assist with ambulation. She reports that she is supposed to have physical therapy coming to her house. She is in the process of working with the visiting nurses to set this up. While the office today, I did discuss the role of physical therapy with the patient. She assures me that she is working with a visiting nurse association to schedule appointments to begin doing so. I did offer the patient an outpatient prescription for physical therapy. She will reach out to me if she needs to pursue this instead of the visiting nurses. He Follow-up in 6 weeks for repeat x-rays, sooner if needed. X-rays of the pelvis which were obtained while in the office today and were reviewed by me, Justina Rivera PA-C, revealed intact orthopedic hardware with routine healing. Orders: Orders XR pelvis 1-2V Today M25.559 - Pain in unspecified hip Coding Level of Care Code Global (06689) Diagnoses Subcapital fracture of left hip S72.012A
== END 2024-09-11 13:25 | disposition home or self-care (01) ==
LOC: HO.HOS 12:05
PROVIDERS: Visit Provider Physician Assistant
DX: S72.012A Unspecified intracapsular fracture of left femur, initial encounter for closed fracture (principal)
CPT/HCPCS: 99024

== ENCOUNTER → 2024-09-11 12:05 | Outpatient (BNV) | payer MEDICARE, BC, SELFPAY | PROVIDERS: Visit Provider Radiology Diagnostic Radiology | DX: S72.012D Unspecified intracapsular fracture of left femur, subsequent encounter for closed fracture with routine healing (principal) | CPT/HCPCS: 72170 ==

== ENCOUNTER 2024-09-21 21:26 | Inpatient (IN) | payer MEDICARE, BC, SELFPAY ==
--- NOTE | ~2024-09-21 | MR_ITS ---
EXAMINATION: MR BRAIN WITHOUT CONTRAST CLINICAL INFORMATION: CVA COMPARISON: 08/22/2024. TECHNIQUE: MRI of the brain was obtained using routine sequences without contrast. Examination performed on a 1.5 Rupali Siemens high-field scanner. FINDINGS: There is no diffusion restriction. There is no intracranial hemorrhage, acute infarction, mass effect, or edema. Ventricles, sulci, and cisterns are normal in size and configuration for patient age. No shift of midline. No abnormal hemosiderin deposition is identified. 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 There are a few scattered punctate and minimally confluent foci of white matter T2 hyperintensity in the periventricular, subcortical, and hemispheric deep white matter, and central lula. These areas are nonspecific. Dominant lesion abutting the posterior body of the left lateral ventricle in the left posterior centrum semiovale. These findings are nonspecific but most likely reflect small vessel ischemic changes. Midline structures appear normally formed. The pituitary gland appears normal. Posterior fossa structures appear normal. Cerebellar tonsils are appropriately located. Major flow voids are preserved within the skull base. The globes and orbital contents demonstrate no abnormalities. Paranasal sinuses are clear bilaterally. The mastoids and tympanic cavities are normally aerated. Extracranial soft tissues demonstrate no abnormalities. No suspicious bone marrow changes are evident. Atlantoaxial joint is normal. There are degenerative changes in the TM joints. MR/MR head/brain wo con IMPRESSION: 1. No evidence of acute infarction, intracranial hemorrhage, mass effect, or edema. 2. 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 3. There are numerous stable bilateral scattered foci of punctate and minimally confluent white matter T2 hyperintensity in the supratentorial periventricular, subcortical, and hemispheric deep white matter, and central lula. No distribution or morphology specific to demyelinating disease. These findings statistically most likely relate to small vessel ischemic changes. Electronically signed by: Kee Gongora MD 09/22/2024 01:14 PM EDT
--- NOTE | ~2024-09-21 | CT_ITS ---
CLINICAL HISTORY: EXPRESSIVE APHASIA CT head without contrast COMPARISON: CT/SR - CT HEAD/BRAIN WO IV CON - 08/20/2024 07:13 PM EST FINDINGS: Global cerebral volume loss and chronic microvascular ischemic changes. No acute intracranial hemorrhage, extra-axial fluid collection, mass effect, or midline shift. Ventricular system and basilar cisterns are patent. Melara-white matter differentiation is maintained. No gross orbital abnormality. No suspicious or acute bone lesion. Mastoid air cells and paranasal sinuses are predominantly clear. IMPRESSION: 1. No acute intracranial abnormality. 2. Global cerebral volume loss and chronic microvascular ischemic changes. This document has been electronically signed by: Keith Aj MD on 09/21/2024 21:51:19
--- NOTE | ~2024-09-21 | XR_ITS ---
CLINICAL HISTORY: stroke , EXPRESSIVE APHASIA 1 view chest x-ray Comparison: CT/SR - CT CHEST WO IV CON - 08/20/24 19:39 EST Findings: Lungs are well inflated. Cardiac silhouette is within normal limits. Linear density is seen along the medial aspect of the lung bases bilaterally, tonim-[id number]-rzag-left. Question tiny bilateral pleural effusions. No pneumothorax. Spinal fusion hardware is seen within the mid to lower cervical spine. IMPRESSION: Atelectasis versus mild pneumonitis within the lung bases bilaterally with question tiny bilateral pleural effusions. This document has been electronically signed by: Melvin Rivas MD on 09/21/2024 22:51:10
--- NOTE | ~2024-09-21 | CT_ITS ---
CLINICAL HISTORY: Stroke Protocol CT angiography neck with contrast. 3D Postprocessing. Comparison: None Findings: Left common carotid artery stent. Mild atherosclerotic narrowing of the left subclavian artery origin and right subclavian artery origin. Bilateral common carotid arteries widely patent. Mild narrowing of the left carotid bifurcation and origin of the left ICA. Right carotid bifurcation and right ICA are normal. Widely patent bilateral cervical vertebral arteries and V4 segments. Normal basilar artery. Posterior cerebral arteries opacify normally. Anterior and middle cerebral artery branches are normal. IMPRESSION: 1. No large vessel occlusion or hemodynamically significant narrowing of the major arterial circulation. 2. Mild narrowing of the bilateral subclavian artery origins. 3. Left common carotid artery origin stent noted. This document has been electronically signed by: Keith Aj MD on 09/21/2024 22:20:07
--- NOTE | 2024-09-21 21:32 | ECG_ITS ---
Test Reason : Stroke Protocol Blood Pressure : */* mmHG Vent. Rate : 65 BPM Atrial Rate : 65 BPM P-R Int : 150 ms QRS Dur : 80 ms QT Int : 414 ms P-R-T Axes : 45 -20 49 degrees QTcB Int : 430 ms Normal sinus rhythm Incomplete RBBB Borderline ECG When compared with ECG of 21-Aug-2024 04:01, Vent. rate has decreased by 54 bpm changes of inferior infarct not present anymore Referred By: Nimisha Elmore Electronically Signed By: Gilbert Lovelace
--- NOTE | 2024-09-21 21:33 | ED.NEUROSD ---
HPI - Neuro Symptoms/Deficit General Chief Complaint: Stroke Stated Complaint: stroke alert Time Seen by Provider: 09/21/24 21:31 Source: patient and EMS Mode of arrival: EMS Limitations: no limitations History of Present Illness ED Provider: DR. Elmore HPI Narrative: 73-year-old female with pertinent history of chronic hypoxemic respiratory failure due to COPD on 2 L baseline supplemental oxygen at home, mood disorder, hypertension, chronic opiate use, MS, tobacco use presented to the emergency department as a stroke protocol, as patient noted by her family had garbled speech since noon time, patient noticed that she has been having garbled speech and some expressive aphasia otherwise no other neurological deficit, headache, nausea, vomiting, weakness, double vision, blurry vision, or numbness. Patient is on Plavix otherwise no AC therapy. Related Data Home Medications ?Medication ?Instructions ?Recorded ?Confirmed tjkuckromc-anhxymkhgsibk-rbeksjzh 1 cap PO Q24H PRN Headache 11/15/22 08/21/24 50 mg-300 mg-40 mg capsule erenumab-aooe 140 mg/mL 140 mg subcut Q28D 11/15/22 08/21/24 subcutaneous auto-injector (Aimovig Autoinjector) esomeprazole magnesium 40 mg 40 mg PO DAILY@0630 11/15/22 08/21/24 capsule,delayed release fluticasone propionate 50 1 spray intranasal Q12H PRN 11/15/22 08/21/24 mcg/actuation nasal allergies spray,suspension immun glob G 10 50 ml subcut MCKENZIE@0900 11/15/22 08/21/24 gram/50mL(20%)-gly-IgA over 50 mcg/mL subcutaneous suzanna (Cuvitru) ocrelizumab 30 mg/mL intravenous 600 mg IV [id number] 11/15/22 08/21/24 solution roflumilast 500 mcg tablet 500 mcg PO DAILY 07/07/24 08/21/24 bisacodyl 10 mg rectal suppository 10 mg HI NEEDED PRN step 2 if 08/20/24 08/21/24 no BM 8 hours after MOM magnesium hydroxide 400 mg/5 mL 30 ml PO NEEDED PRN No Bm for 08/20/24 08/21/24 oral suspension (Milk of Magnesia) three days ondansetron HCl 4 mg tablet 4 mg PO Q8H PRN nausea/vomitting 08/20/24 08/21/24 Previous Rx's ?Medication ?Instructions ?Recorded nystatin 100,000 unit/mL oral 400,000 unit (4 mL) PO QID #60 mL 07/23/24 suspension amlodipine 5 mg tablet 5 mg PO DAILY #30 tabs 09/02/24 aspirin 81 mg tablet,delayed 81 mg PO DAILY #30 tabs 09/02/24 release cholecalciferol (vitamin D3) 50 50 mcg PO DAILY #30 caps 09/02/24 mcg (2,000 unit) capsule clopidogrel 75 mg tablet 75 mg PO DAILY #30 tabs 09/02/24 cyclobenzaprine 10 mg tablet 10 mg PO DAILY PRN muscle spasms 09/02/24 #30 tabs fluticasone fur. 100 mcg-umeclid 1 inh inhalation DAILY #28 ea 09/02/24 62.5 mcg-vilant 25 mcg inhalat.powder ipratropium 0.5 mg-albuterol 3 mg 3 ml inhalation QID PRN wheezing 09/02/24 (2.5 mg base)/3 mL nebulization #90 mL soln levalbuterol HCl 1.25 mg/0.5 mL 1.25 mg (0.5 mL) inhalation TID 09/02/24 solution for nebulization PRN shortness of breath or wheezing #30 ea levalbuterol HCl 1.25 mg/3 mL 1.25 mg (3 mL) inhalation TID PRN 09/02/24 solution for nebulization Shortness Of Breath Or Wheezing #72 mL losartan 50 mg tablet 50 mg PO BEDTIME #30 tabs 09/02/24 metoprolol tartrate 25 mg tablet 25 mg PO BID #60 tabs 09/02/24 nicotine 7 mg/24 hr daily 7 mg transdermal DAILY #30 ea 09/02/24 transdermal patch olanzapine 5 mg tablet 5 mg PO BID #60 tabs 09/02/24 oxycodone 5 mg tablet 5 mg PO BID PRN Pain (Scale Score 09/02/24 4-6) #14 tabs rosuvastatin 40 mg tablet 40 mg PO BEDTIME #30 tabs 09/02/24 sertraline 50 mg tablet 50 mg PO DAILY #30 tabs 09/02/24 trazodone 50 mg tablet 50 mg PO BEDTIME PRN Insomnia #30 09/02/24 tabs Allergies Allergy/AdvReac Type Severity Reaction Status Date / Time codeine [CODEINE] Allergy Unknown Hives Verified 09/21/24 21:42 Review of Systems Review of Systems: All other systems are reviewed and are negative Constitutional: Reports as per HPI and Reports no additional constitutional complaints Eyes: Reports as per HPI and Reports no additional eye complaints Reports system reviewed and no additional complaints, except as documented Cardiovascular: Reports as per HPI and Reports no additional cardiovascular complaints Respiratory: Reports as per HPI and Reports no additional respiratory complaints Gastrointestinal: Reports as per HPI and Reports no additional gastrointestinal complaints Genitourinary: Reports no additional female genitourinary complaints Musculoskeletal: Reports no additional musculoskeletal complaints Skin/Breast: Reports system reviewed and no additional complaints, except as docu Psychiatric: Reports no additional psychiatric complaints Endocrine: Reports no additional endocrine complaints Hematologic/Lymphatic: Reports no additional hematologic/lymphatic complaints Allergic/Immunologic: Reports no additional allergic/immunologic complaints Reports system reviewed and no additional complaints, except as documented and Reports Abnormal speech present COUNT INCLUDES THE [facility] Past Medical History Medical History MDD (major depressive disorder), recurrent episode Essential hypertension Leukocytosis History of CAD (coronary artery disease) Peripheral vascular disease Chronic back pain GERD (gastroesophageal reflux disease) High cholesterol HTN (hypertension) Immune disorder COPD (chronic obstructive pulmonary disease) Multiple sclerosis Surgical History History of angioplasty History of heart artery stent Social History Social History Household Members: None Housing: Assisted Living Facility Do you presently have visiting nurse or other home services: No Alcohol intake: never Comment: 5 miinute checks Patient Tobacco Use Status: Never used Tobacco Tobacco use type: Cigarette Cigarette Packs Per Day: 1 Cigarettes Per Day: 20.0 Advance Directives: Yes Advance Directives on File: Yes Advance Directives Date on File: 11/22/22 Do you have a plan to hurt others: No Plan service: No Current occupational status: retired Sexual orientation: Straight/Heterosexual Physical Exam Vital Signs: Vital Signs: Last Vital Signs Pulse 62 09/21/24 22:02 Resp 11 L 09/21/24 22:02 BP 122/52 L 09/21/24 22:02 Pulse Ox 96 09/21/24 22:02 O2 Del Method Nasal Cannula 09/21/24 22:02 O2 Flow Rate 2 09/21/24 22:02 BMI result Body Mass Index 21.3 Vital signs have been reviewed and appear to be correct. Blood pressure elevated. Heart rate normal. Respiratory rate normal. Temperature normal. Oxygen saturation normal. Appearance: Alert. Oriented X3. No acute distress. Head: Normal external exam. Normocephalic. Atraumatic. No Fam signs noted. No raccoon eyes noted Eyes: PERRLA. EOMI. Conjunctiva and sclera normal. Eyelids normal. ENT: TM's Normal. Pharynx normal. Uvula midline. Moist mucous membranes. No trismus noted. No drooling noted. No muffled voice noted. Neck: Normal inspection. Neck supple. FROM. No adenopathy. Thyroid Normal. No meningeal signs. No neck mass noted. CVS: Normal heart rate and rhythm. Heart sound normal. No murmurs noted. Pulses normal throughout. Respiratory: No respiratory distress. Painless inspiration. Breath sounds normal. No wheezes/rales/rhonchi noted. Chest nontender. No accessory muscle usage noted or decreased air movement noted. Abdomen: Soft and nontender. Bowel sounds normal in all 4 quadrants. No distention noted. No organomegaly noted. No visible injury noted. Back: No CVA tenderness. Full range of motion noted. Skin: Skin warm and dry. Normal skin color. Normal skin turgor. No rashes/lesions/lacerations noted. Extremities: No lower extremity edema. Extremities exhibit normal range of motion. Extremities nontender. Neuro: Mental status: Normal attention, orientation, memory, and affect. Cranial nerves: Pupils are equal, round and reactive to light, EOMI, visual joiner are fall, face is symmetric, facial sensations are normal. Motor examination normal muscle tone, strength to 4 extremities. DTR are +2, planter's are flexor. Sensory exam; normal coordination, no ataxia, gait stable. Cerebellar exam: Bgiudt-st-fsec and dmdj-km-aqxq is normal. Extrapyramidal system: No tremors, no rigidity with normal facial expressions. Pronator drift not present Course Reevaluation(s) Reevaluation #1: 73-year-old female came in was a garbled speech since known about 9 hours before presentation to the hospital, seems to be intermittent throughout the day, head CT/CTA is negative for acute stroke or LVO, patient is not a candidate for intravenous TNK cause symptoms are minor and NIH score is only 1, late presentation as well. Patient is not candidate for mechanical thrombectomy either. Will administer aspirin and admit for further neurological evaluation. Neurological consultation in the emergency department is not necessary at this point will admit to medical floor and get inpatient neurological consultation. Time: 22:28 Medical Decision Making Differential Diagnosis Differential Diagnoses: The differential diagnosis associated with the presentation includes (CVA, hemorrhagic stroke, TIA, electrolyte derangement, severe anemia, coagulopathy, cardiac arrhythmia, ACS.) Admission/Observation Consideration of admission/observation: Escalation of care including admission/observation considered Consult Healthcare Provider Management of the patient was discussed with: Hospitalist (Dr. Mccabe) Lab Data MDM Lab Attestation statement: I reviewed the patient's lab results. 09/21/24 21:41 09/21/24 21:41 Labs: Lab Results 09/21/24 09/21/24 09/21/24 Range/Units 21:36 21:41 21:59 WBC 9.5 (4.8-10.8) X10*3/uL RBC 3.39 L (4.20-5.50) X10*6/uL Hgb 9.5 L (12.0-16.0) g/dl Hct 29.5 L (37.0-47.0) % MCV 87.0 (80.0-98.0) fL MCH 28.0 (27.0-33.0) pg MCHC 32.2 (31.0-35.0) g/dl RDW 14.4 (11.0-16.0) % Plt Count 404 H (160-400) X10*3/uL MPV 9.4 (9.4-12.3) fL Immature Gran % (Auto) 0.5 H (0.0-0.4) % Neut % (Auto) 61.9 (45-73) % Lymph % (Auto) 23.5 (20-40) % Bowie % (Auto) 10.5 (2-11) % Eos % (Auto) 3.0 (0-4) % Baso % (Auto) 0.6 (0-2) % Lymph # (Auto) 2.2 (1.2-4.9) X10*3/uL Bowie # (Auto) 1.0 (0.1-1.2) X10*3/uL Eos # (Auto) 0.3 (0.0-0.4) X10*3/uL Baso # (Auto) 0.1 (0.0-0.2) X10*3/uL Abs Immat Gran (auto) 0.05 H (0.00-0.03) X10*3/uL Absolute Neuts (auto) 5.9 (2.0-8.3) x10*3/uL Absolute Nucleated RBC 0.000 (0.0-0.012) X10*3/uL Nucleated RBC % (auto) 0.0 (0.0-0.2) /100WBC Hold Purple Top SEE NOTE PT 11.0 (10.9-12.4) SEC Whole Blood PT 13.0 (11.1-13.5) sec INR 0.9 (0.9-1.1) Whole Blood INR 1.1 (0.9-1.1) APTT 28.6 (26.0-36.8) SEC Sodium 140 (135-145) mmol/L Potassium 4.9 D (3.3-5.1) mmol/L Chloride 107 (96-108) mmol/L Carbon Dioxide 26 (22-29) mmol/L Anion Gap 12 (12-20) BUN 14 (9-16) mg/dL Creatinine 1.06 (0.5-1.4) mg/dL Estim Creat Clear Calc 39.6 Estimated GFR 51 POC Glucose 138 H 102 (60-115) mg/dL Random Glucose 107 (60-115) mg/dL Calcium 8.8 (8.4-10.2) mg/dL Troponin I High Sens < 2.7 (<3.5-17.0) ng/L Triglycerides 82 (<150) mg/dL Cholesterol 117 (<200) mg/dL LDL Cholesterol, Calc 50 (<100) mg/dL HDL Cholesterol 51 (>40) mg/dL Independent Interpretation I performed an independent interpretation of an: CT Scan (CT/CT:1. No acute intracranial abnormality. 2. Global cerebral volume loss and chronic microvascular ischemic changes.1. No large vessel occlusion or hemodynamically significant narrowing of the major arterial circulation. 2. Mild narrowing of the bilateral subclavian artery origins. 3. Left common) Radiology Impression Discussion of test interpretation with radiology: I have reviewed the radiologist's reading. NIH Stroke Scale Time: 21:42 Level of Consciousness: Alert Level of Consciousness Questions: Answers both questions correctly Level of Consciousness Commands: Performs both tasks correctly Best Gaze: Normal Visual: No visual loss Facial Palsy: Normal Motor Arm (Right): No drift Motor Arm (Left): No drift Motor Leg (Right): No drift Motor Leg (Left): No drift Limb Ataxia: Absent Sensory: Normal Best Language: Mild to moderate aphasia Dysarthia: Normal Extinction and Inattention: No abnormality Score: 1 Discharge Plan Discharge Clinical Impression: Brain TIA, Garbled speech Patient Disposition: Admitted As Inpatient Print Language: Romansh
[2024-09-21 21:38] VITALS: BP 108/62; PULSE 66; O2SAT 96; BMI 21.3
[2024-09-21 21:43] LABS: ~PT, ~INR - Anti Coag Clinic 1.1 (0.9-1.1)
--- NOTE | 2024-09-21 21:43 | PC.NURSE ---
pt is in CT scan at this time.
[2024-09-21 21:44] LABS: Glucose, Whole Blood 138 mg/dL (60-115)
[2024-09-21 21:57] LABS: MANUAL DIFF FLAG NO
[2024-09-21 21:58] VITALS: BP 122/52; PULSE 64; RESP 14; O2SAT 98
[2024-09-21 21:59] LABS: Hematocrit 29.5 % (37.0-47.0); Hemoglobin 9.5 g/dl (12.0-16.0); Red Blood Count 3.39 X10*6/uL (4.20-5.50); White Blood Count 9.5 X10*3/uL (4.8-10.8)
[2024-09-21 22:00] LABS: Basophils Absolute Auto 0.1 X10*3/uL (0.0-0.2); Basophils Percent Auto 0.6 % (0-2); Eosinophils Absolute Auto 0.3 X10*3/uL (0.0-0.4); Imm Gran Abs Auto 0.05 X10*3/uL (0.00-0.03); Imm Gran Pct Auto 0.5 % (0.0-0.4); Lymphocytes Absolute Auto 2.2 X10*3/uL (1.2-4.9); Lymphocytes Percent Auto 23.5 % (20-40); Mean Corpuscular HGB Conc 32.2 g/dl (31.0-35.0); Mean Platelet Volume 9.4 fL (9.4-12.3); Monocytes Percent Auto 10.5 % (2-11); Neutrophils Absolute Auto 5.9 x10*3/uL (2.0-8.3); Neutrophils Percent Auto 61.9 % (45-73); Platelet Count 404 X10*3/uL (160-400); Red Cell Distribution Width 14.4 % (11.0-16.0)
[2024-09-21 22:02] VITALS: BP 122/52; PULSE 62; RESP 11; O2SAT 96
[2024-09-21 22:03] LABS: Glucose, Whole Blood 102 mg/dL (60-115)
[2024-09-21 22:05] LABS: INTERNATIONAL NORM RATIO 0.9 (0.9-1.1)
[2024-09-21 22:08] LABS: Partial Thromboplastin Time 28.6 SEC (26.0-36.8); Stroke Lab Use COMPLETE
[2024-09-21 22:13] LABS: Anion Gap 12 (12-20); Blood Urea Nitrogen 14 mg/dL (9-16); Calcium 8.8 mg/dL (8.4-10.2); Carbon Dioxide 26 mmol/L (22-29); Chloride 107 mmol/L (96-108); Cholesterol 117 mg/dL (<200); Creatinine Clr Calc Pharmacy 39.6; Estimated Glomerular Filt Rate 51; Glucose Random 107 mg/dL (60-115); HDL Cholesterol 51 mg/dL (>40); LDL Cholesterol Calculated 50 mg/dL (<100); Potassium 4.9 mmol/L (3.3-5.1); Sodium 140 mmol/L (135-145); Triglycerides 82 mg/dL (<150)
--- OUTSIDE RECORDS SUMMARY | 2024-09-21 22:19 | XMS_ITS | Patient Health Record ---
Author Organization [facility] [place] Address [address] [place] [address] Care Team Providers Care Records Management Manager Name Role Phone Sushil Stewart MD Primary Care Provider Unavail able Epifanio Palacios Unavailable [phone] Allergies Allergen (clinical drug ingredient) Drug/Non Drug [...] W/U Status Risk Notes Problem Atherosclerosis of [place] arteries of the extremities ([id number]) Atherosclerosis of [place] artery of both lower extremities, with unspecified presence of clinical manifestation (I70.203) Active confirmed Q7(A), Q8(2B), Q9(1B,2 C) Vital Signs Height 5 ft 3 in in 03/10/2024 Weight 130 lbs 03/10/2024 BMI 23.03 kg/m2 03/10/2024 Procedures Procedure Date Ordered Date Performed Result Body Sit e 09777-SIEPMOL NAIL, 6 OR MORE 12/24/2023 N/A 02536-VDUC SKIN LESIONS, 2 TO 4 12/24/2023 N/A 02771-DBBE SKIN LESIONS, 2 TO 4 03/10/2024 N/A 36147-NVLIFCO NAIL, 6 OR MORE 03/10/2024 N/A 08247-WZGY SKIN LESIONS, 2 TO 4 10/08/2023 N/A 53716-ZYQFXKC NAIL, 6 OR MORE 10/08/2023 N/A Encounters Encounter [facility] Date [facility] [address] 10/08/[facility]23 Epifanio Palacios Atherosclerosis of [place] artery of both lower extremities, with unspecified presence of clinical manifestation I70.203 ; Tinea unguium B35.1 ; Pain in right toe(s) M79.674 ; Pain in left toe(s) M79.675 ; Bursitis of intermetatarsal bursa of left foot M77.52 ; Metatarsalgia of left foot M77.42 ; Bursitis of intermetatarsal bursa of right foot M77.51 and Metatarsalgia, right foot M77.41 [facility] [address] 12/24/2023 Epifanio Palacios Atherosclerosis of [place] artery of both lower extremities, with unspecified presence of clinical manifestation I70.203 ; Tinea unguium B35.1 ; Pain in right toe(s) M79.674 ; Pain in left toe(s) M79.675 ; Bursitis of intermetatarsal bursa of left foot M77.52 ; Metatarsalgia of left foot M77.42 ; Bursitis of intermetatarsal bursa of right foot M77.51 and Metatarsalgia, right foot M77.[address] [facility] [address] 03/10/2024 Epifanio Palacios Atherosclerosis of [place] artery of both lower extremities, with unspecified presence of clinical manifestation I70.203 ; Tinea unguium B35.1 ; Pain in right toe(s) M79.674 ; Pain in left toe(s) M79.675 and Contusion of right great toe without damage to nail, initial encounter S90.111A [facility] [address] 10/08/2023 Epifanio Palacios [address] [address] 12/25/2023 Epifanio Palacios [address] [address] 07/07/2024 Epifanio Palacios Assessments Encounter Date Diagnosis (ICD Code) Assessment Notes Treatment Notes Treatment Clinical Notes Section Notes 10/08/2023 Tinea unguium (ICD-10 - B35.1) 10/08/2023 Atherosclerosis of [place] artery of both lower extremities, with unspecified presence of clinical manifestation (ICD-10 - I70.203) 12/24/2023 Tinea unguium (ICD-10 - B35.1) 12/24/2023 Atherosclerosis of [place] artery of both lower extremities, with unspecified presence of clinical manifestation (ICD-10 - I70.203) 03/10/2024 Tinea unguium (ICD-10 - B35.1) 03/10/2024 Atherosclerosis of [place] artery of both lower extremities, with unspecified [...] X ray : Foot, right 3V 03/19/2023 58045-CWAVVBC NAIL, 6 OR MORE 10/08/2023 19329-WZGYBNN NAIL, 6 OR MORE 12/24/2023 44909-VCRMEKX NAIL, 6 OR MORE 03/10/2024 23235-UHGWTRN NAIL, 6 OR MORE 10/10/2018 27397-JBCK SKIN LESIONS, 2 TO 4 03/10/20 57495-NRAV SKIN LESIONS, 2 TO 4 12/24/19 65377-RAIW SKIN LESIONS, 2 TO 4 10/08/19 Next Appt Details Provider Name:Epifanio Palacios , 10/30/2024 01:15:00 PM, [address] [facility], [place], [address], Provider Name:Epifanio Mariah Palacios , 12/08/2024 10:00:00 AM, [address] [facility], [place], [address], Insurance Providers Payer Name Payer Address Payer Phone Subscriber Number Group Number Insured Name Patient Relationship to Insured Coverage Start Date Coverage End Date [employer] [address] [place] [address] [id number] Isabela Leslie Self - patient is the insured [facility] [address] [place] [address] [id number] Isabela Leslie Self - patient is the insured Medical (General) History Medical History History ICD Code Back,Hip,and Knee pain Gall bladder problems Headaches High blood pressure Chicken pox Multiple sclerosis Osteoporosis chronic sinusitis Surgical History Surgery Date(Month/Year) hysterectomy cholecystectomy back surgery x4
--- OUTSIDE RECORDS SUMMARY | 2024-09-21 22:19 | XMS_ITS | Encounter Summary ---
Author Organization [facility] Address [address] [place] [address] Care Team Providers Care Servicer Coin Machines Name Role Phone Sushil Stewart MD Primary Care Provider [phone] Encounter Details Date Type Department Care Team (Late st Contact Info) Description 07/27/2024 Lab Requisition [facility] - Main Lab [address] [place] [address] Carmela Thomas MD [address] [phone] Heart failure, unspecified (CMS/HCC) Social History Tobacco [...] LAB CHEMISTRY METHOD 07/27/2024 2:15 PM EST [facility] Potassium 3.7 3.5 - 5.5 mmol/L LAB CHEMISTRY METHOD 07/27/2024 2:15 PM [facility] Chloride 102 96 - 110 mmol/L LAB CHEMISTRY METHOD 07/27/2024 2:15 PM [facility] CO2 28 21 - 32 mmol/L LAB CHEMISTRY METHOD 07/27/2024 2:15 PM [facility] Anion Gap 10 3 - 11 LAB CHEMISTRY METHOD 07/27/2024 2:15 PM [facility] Glucose 98 70 - 100 mg/dL LAB CHEMISTRY METHOD 07/27/2024 2:15 PM [facility] BUN 13 5 - 25 mg/dL LAB CHEMISTRY METHOD 07/27/2024 2:15 PM [facility] Creatinine 0.62 0.50 - 1.10 mg/dL LAB CHEMISTRY METHOD 07/27/2024 2:15 PM [facility] eGFR 95 >=60 mL/min/1. 73m2 LAB CHEMISTRY METHOD 07/27/2024 2:15 PM [facility] Comment:Calculation based on the??Chronic Kidney Disease Epidemiology Collaboration (CKD-EPI) equation refit??without adjustment for race. BUN/Creatinine Ratio 21.0 LAB CHEMISTRY METHOD 07/27/2024 2:15 PM [facility] Calcium 9.6 8.5 - 10.5 mg/dL LAB CHEMISTRY METHOD 07/27/2024 2:15 PM [facility] AST (SGOT) 34 10 - 42 unit/L LAB CHEMISTRY METHOD 07/27/2024 2:15 PM [facility] ALT (SGPT) 81(H) 10 - 60 unit/L LAB CHEMISTRY METHOD 07/27/2024 2:15 PM [facility] Alkaline Phosphatase 189(H) 42 - 121 unit/L LAB CHEMISTRY METHOD 07/27/2024 2:15 PM [facility] Total Protein 6.0 6.0 - 8.0 g/dL LAB CHEMISTRY METHOD 07/27/2024 2:15 PM [facility] Albumin 2.5(L) 3.2 - 5.0 g/dL LAB CHEMISTRY METHOD 07/27/2024 2:15 PM [facility] Total Bilirubin 0.3 0.0 - 1.4 mg/dL LAB CHEMISTRY METHOD 07/27/2024 2:15 PM [facility] Blood Venous blood specimen / Unknown Venipuncture / Unknown 07/27/2024 8:36 AM EST 07/27/2024 11:49 AM EST us Carmela Thomas MD LAB BLOOD ORDERABLES Fin al Result [facility] [address] [place] [address], * (ABNORMAL) Complete blood count (07/27/2024 8:36 AM EST) WBC 17.3(H) 4.8 - 10.8 K/mcL LAB HEMETOLOGY METHOD 07/27/2024 1:03 PM [facility] RBC 4.00 3.80 - 4.80 M/mcL LAB HEMETOLOGY METHOD 07/27/2024 1:03 PM [facility] Hemoglobin 12.0 11.5 - 16.0 g/dL LAB HEMETOLOGY METHOD 07/27/2024 1:03 PM [facility] Hematocrit 36.8 35.0 - 47.0 % LAB HEMETOLOGY METHOD 07/27/2024 1:03 PM [facility] MCV 92.0 79.0 - 98.0 FL LAB HEMETOLOGY METHOD 07/27/2024 1:03 PM [facility] MCH 30.0 27.0 - 32.0 pcg LAB HEMETOLOGY METHOD 07/27/2024 1:03 PM [facility] MCHC 32.6 32.0 - 37.0 g/dL LAB HEMETOLOGY METHOD 07/27/2024 1:03 PM EST [facility] RDW 13.4 11.0 - 15.0 % LAB HEMETOLOGY METHOD 07/27/2024 1:03 PM [facility] Platelets 609(H) 130 - 400 K/mcL LAB HEMETOLOGY METHOD 07/27/2024 1:03 PM [facility] MPV 9.9 7.0 - 11.0 FL LAB HEMETOLOGY METHOD 07/27/2024 1:03 PM [facility] NRBC 0.0 <1.0 % LAB HEMETOLOGY METHOD 07/27/2024 1:03 PM [facility] NRBC Absolute 0.00 <0.10 K/mcL LAB HEMETOLOGY METHOD 07/27/2024 1:03 PM [facility] Blood Venous blood specimen / Unknown Venipuncture / Unknown 07/27/2024 8:36 AM EST 07/27/2024 11:49 AM EST us Carmela Thomas MD LAB BLOOD ORDERABLES Fin al Result [facility] [address] [place] [address], documented in this encounter Visit Diagnoses Diagnosis Heart failure, unspecified (CMS/HCC) Heart failure, unspecified documented in this encounter Care Teams Servicer Coin Machines Relationship Specialty Start Date End Date Sushil Stewart MD [address] [place] [address] Rd [address] [place], [place] PCP - General Internal Medicine 10/14/17 documented as of this encounter
--- OUTSIDE RECORDS SUMMARY | 2024-09-21 22:19 | XMS_ITS ---
Author Organization [facility] Address [address] [place] [id number] Care Team Providers Care Express Manager Name Role Phone Sushil Stewart MD Primary Care Provider Unavail Epifanio Marin Unavailable [phone] REASON FOR VISIT same day cx appt 07/07/24 Encounters Encounter Location Date Provider Diagnosis [facility] [address] [address] 07/07/2024 Epifanio Palacios Plan Of Treatment Next Appt Details Provider Name:Epifanio Palacios , 10/30/2024 01:15:00 PM, [address] [place] [address], [phone], Provider Name:Epifanio Palacios , 12/08/2024 10:00:00 AM, [address] [place] [address], [phone], Progress Notes * Isabela MANZO MDOB: [birth year] (73 yo F)Acc No.[id number]:07/07/2024 Patient:?JOVANY Isabela Michelle :1950???Age:73 Y???Sex:Female Address:[address] [place] [address], [address] * true * Date:? Generated for Printi ng/Faxing/eTransmitting on:?09/21/2024 10:19 PM EDT
--- OUTSIDE RECORDS SUMMARY | 2024-09-21 22:19 | XMS_ITS | Clinical Summary ---
Author Organization Unknown Care Team Providers Care Medical Billing Service Name Role Phone DELIA TERRY, KATHY Unavailable Unavailable ADAMS TAVARES, GERTRUDE Unavailable Unavailable Payers Payer Name Policy Type Policy Number Effective Date Expira tion Date MEDICARE - NGS [place] [id number] [facility] [id number] Problems Condition Name Condition Details Condition Category Status Onset Date Resolution Date Last Treatment Date Treating Clinician Comments SCHIZOPHRENI A, UNSPECIFIED Active 09-05 00:00: 00 UNSP DEMENTIA, UNSP SEVERITY, WITHOUT BEH/PSYCH/MO OD/ANX Active 09-03 00:00: 00 ESSENTIAL (PRIMARY) HYPERTENSION Active 09-05 00:00: 00 PRESENCE OF RIGHT ARTIFICIAL HIP JOINT Active 09-05 00:00: 00 Allergies, Adverse Reactions, Alerts Allergy Name Allergy Type Status Severity Reaction(s) Onset Date Inactive Date Treating Clinician Comments NKA Propensity to adverse reactions Active 2024-08 21:43:2 4 Medications Ordered Medication Name Filled Medication Name Start Date Stop Date Current Medication? Ordering Clinician Indication Dosage Frequency Signature (SIG) Comments Components moxifloxaci n 0.5 % eye drops 11-30 00:00: 00 08-20 23:59 :00 No [id number] Per instruc tions FOUR TIMES A DAY DIRECTED TO BEGIN 3 DAYS Per instructio ns FOUR TIMES A DAY DIRECTED TO BEGIN 3 DAYS (route: ophthalmic (eye)) Med Classific ation: Ophthalmi c Agents Prolensa 0.07 % eye drops 11-30 00:00: 00 08-20 23:59 :00 No [id number] Per instruc tions ONCE A DAY DIRECTED TO BEGIN 3 DAYS Per instructio ns ONCE A DAY DIRECTED TO BEGIN 3 DAYS (route: ophthalmic (eye)) Med Classific ation: Ophthalmi c Agents oxycodone-a cetaminophe n 10 mg-325 mg tablet 11-16 00:00: 00 08-20 23:59 :00 No [id number] Per instruc tions EVERY 4 TO 6 HOURS Per instructio ns EVERY 4 TO 6 HOURS (route: oral) Med Classific ation: Analgesic , Anti-infl ammatory or Antipyret ic amlodipine 10 mg tablet 12-09 00:00: 00 08-20 23:59 :00 No [id number] 1 tablet DAILY 1 tablet DAILY (route: oral) Med Classific ation: Cardiovas cular Therapy Agents aspirin 81 mg tablet,sarah yed release 12-09 00:00: 00 08-20 23:59 :00 No [id number] 1 tablet DAILY 1 tablet DAILY (route: oral) Med Classific ation: Hematolog ical Agents atorvastati n 20 mg tablet 12-09 00:00: 00 08-20 23:59 :00 No [id number] 1 tablet BEDTIME 1 tablet BEDTIME (route: oral) Med Classific ation: Cardiovas cular Therapy Agents buspirone 5 mg tablet 12-09 00:00: 00 08-20 23:59 :00 No [id number] 1 tablet 2 TIMES DAILY 1 tablet 2 TIMES DAILY (route: oral) Med Classific ation: Central Nervous System Agents Cymbalta 60 mg capsule,del ayed release 12-09 00:00: 00 08-20 23:59 :00 No [id number] 1 capsule DAILY 1 capsule DAILY (route: oral) Med Classific ation: Central Nervous System Agents diclofenac potassium 50 mg tablet 12-09 00:00: 00 08-20 23:59 :00 No [id number] 1 tablet 2 TIMES DAILY 1 tablet 2 TIMES DAILY (route: oral) Med Classific ation: Analgesic , Anti-infl ammatory or Antipyret ic esomeprazol e magnesium 40 mg capsule,del ayed release 12-09 00:00: 00 08-20 23:59 :00 No [id number] 1 capsule DAILY 1 capsule DAILY (route: oral) Med Classific ation: Gastroint estinal Therapy Agents fluticasone furoate 200 mcg-vilante rol 25 mcg/dose inhalation powder 12-09 00:00: 00 08-20 23:59 :00 No [id number] 1 inhalat ion DAILY 1 inhalation DAILY (route: inhalation ) Med Classific ation: Respirato ry Therapy Agents fluticasone propionate 50 mcg/actuati on nasal spray,suspe nsion 12-09 00:00: 00 08-20 23:59 :00 No [id number] 1 spray DAILY 1 spray DAILY (route: nasal) Med Classific ation: Respirato ry Therapy Agents hydrochloro thiazide 25 mg tablet 12-09 00:00: 00 08-20 23:59 :00 No [id number] 1 tablet DAILY 1 tablet DAILY (route: oral) Med Classific ation: Cardiovas cular Therapy Agents lamotrigine 25 mg tablet 12-09 00:00: 00 08-20 23:59 :00 No [id number] 2 tablet 2 TIMES DAILY 2 tablet 2 TIMES DAILY (route: oral) Med Classific ation: Central Nervous System Agents metoprolol tartrate 25 mg tablet 12-09 00:00: 00 08-20 23:59 :00 No [id number] 1 tablet 2 TIMES DAILY 1 tablet 2 TIMES DAILY (route: oral) Med Classific ation: Cardiovas cular Therapy Agents Myrbetriq 50 mg tablet,exte nded release 12-09 00:00: 00 08-20 23:59 :00 No [id number] 1 tablet DAILY 1 tablet DAILY (route: oral) Med Classific ation: Genitouri nary Therapy Nicoderm CQ 21 mg/24 hr daily transdermal patch 12-09 00:00: 00 08-20 23:59 :00 No [id number] 1 patch, transde rmal 24 hours DAILY 1 patch, transderma l 24 hours DAILY (route: transderma l) Med Classific ation: Chemical Dependenc y, Agents to Treat Percocet 10 mg-325 mg tablet 12-09 00:00: 00 08-20 23:59 :00 No [id number] 1 tablet NEEDED 1 tablet NEEDED (route: oral) Med Classific ation: Analgesic , Anti-infl ammatory or Antipyret ic Plavix 75 mg tablet 12-09 00:00: 00 08-20 23:59 :00 No [id number] 1 tablet DAILY 1 tablet DAILY (route: oral) Med Classific ation: Hematolog ical Agents prednisone 10 mg tablet 12-09 00:00: 00 12-22 23:59 :00 No [id number] Per instruc tions DAILY Per instructio ns DAILY (route: oral) Med Classific ation: Endocrine Soma 350 mg tablet 12-09 00:00: 00 08-20 23:59 :00 No [id number] 1 tablet DIRECTED 1 tablet DIRECTED (route: oral) Med Classific ation: Locomotor System Xanax 0.25 mg tablet 12-09 00:00: 00 08-20 23:59 :00 No [id number] 1 tablet BEDTIME 1 tablet BEDTIME (route: oral) Med Classific ation: Central Nervous System Agents O2 - OXYGEN 12-08 00:00: 00 08-20 23:59 :00 No [id number] 2-4 Liter O2 - CONTINUOUS 2-4 Liter O2 - CONTINUOUS (route: Oxygen) Alternate Route: O2 - NASAL CANNULA. Med Classific ation: Medical Oxygen amlodipine 5 mg tablet 09-05 00:00: 00 Yes [id number] 5 mg DAILY 5 mg CRYSTAL Y (route: oral) Med Classific ation: Cardiovas cular Therapy Agents aspirin 81 mg chewable tablet 09-05 00:00: 00 Yes [id number] 81 mg DAILY 81 mg DAILY (route: oral) Med Classific ation: Hematolog ical Agents cholecalcif anya (vitamin D3) 50 mcg (2,000 unit) capsule 09-05 00:00: 00 Yes [id number] 50 mcg DAILY 50 mcg DAILY (route: oral) Med Classific ation: Electroly te Balance-N utritiona l Products clopidogrel 75 mg tablet 09-05 00:00: 00 Yes [id number] 75 mg DAILY 75 mg DAILY (route: oral) Med Classific ation: Hematolog ical Agents cyclobenzap rine 10 mg tablet 09-05 00:00: 00 Yes [id number] 10 mg NEEDED 10 mg NEEDED (route: oral) Med Classific ation: Locomotor System fluticasone furoate 100 mcg-vilante rol 25 mcg/dose inhalation powder 09-05 00:00: 00 Yes [id number] 100 mcg DAILY 100 mcg DAILY (route: inhalation ) Med Classific ation: Respirato ry Therapy Agents ipratropium 0.5 mg-albutero l 3 mg (2.5 mg base)/3 mL nebulizatio n soln 09-05 00:00: 00 Yes [id number] 3 mL 4 TIMES DAILY 3 mL 4 TIMES DAILY (route: inhalation ) Med Classific ation: Respirato ry Therapy Agents levalbutero l 1.25 mg/3 mL solution for nebulizatio n 09-05 00:00: 00 Yes [id number] 3 mL NEEDED 3 mL NEEDED (route: inhalation ) Med Classific ation: Respirato ry Therapy Agents losartan 50 mg tablet 09-05 00:00: 00 Yes [id number] 50 mg BEDTIME 50 mg BEDTIME (route: oral) Med Classific ation: Cardiovas cular Therapy Agents metoprolol tartrate 25 mg tablet 09-05 00:00: 00 Yes [id number] 25 mg 2 TIMES DAILY 25 mg 2 TIMES DAILY (route: oral) Med Classific ation: Cardiovas cular Therapy Agents nicotine 7 mg/24 hr daily transdermal patch 09-05 00:00: 00 Yes [id number] 7 mg DAILY 7 mg CRYSTAL Y (route: transderma l) Med Classific ation: Chemical Dependenc y, Agents to Treat olanzapine 5 mg tablet 09-05 00:00: 00 Yes [id number] 5 mg 2 TIMES DAILY 5 mg 2 TIMES DAILY (route: oral) Med Classific ation: Central Nervous System Agents oxycodone 5 mg tablet 09-05 00:00: 00 Yes [id number] 5 mg NEEDED 5 mg NEEDED (route: oral) Med Classific ation: Analgesic , Anti-infl ammatory or Antipyret ic rosuvastati n 40 mg tablet 09-05 00:00: 00 Yes [id number] 40 mg BEDTIME 40 mg BEDTIME (route: oral) Med Classific ation: Cardiovas cular Therapy Agents sertraline 50 mg tablet 09-05 00:00: 00 Yes [id number] 50 mg DAILY 50 mg DAILY (route: oral) Med Classific ation: Central Nervous System Agents trazodone 50 mg tablet 09-05 00:00: 00 Yes [id number] 50 mg NEEDED 50 mg NEEDED (route: oral) Med Classific ation: Central Nervous System Agents Vital Signs Vital Name Observation Time Observation Value Commen ts Temperature 2024-09-18 12:59:00.000 97.4 [degF] Temperature 2024-09-16 15:39:00.000 98.2 [degF] Temperature 2024-09-11 14:48:00.000 97.3 [degF] Temperature 2024-09-06 21:40:00.000 97.5 [degF] Height 2024-09-05 23:31:17.000 65 [in_us] Pulse 2024-09-18 12:59:00.000 84 /min Pulse 2024-09-16 15:39:00.000 84 /min Pulse 2024-09-11 14:48:00.000 81 /min Pulse 2024-09-08 12:31:00.000 88 /min Pulse 2024-09-06 21:40:00.000 82 /min O2 Saturation (%) 2024-09-08 12:31:00.000 100 % Respirations 2024-09-18 12:59:00.000 18 /min Respirations 2024-09-16 15:39:00.000 18 /min Respirations 2024-09-11 14:48:00.000 17 /min Respirations 2024-09-08 12:31:00.000 20 /min Respirations 2024-09-06 21:40:00.000 18 /min Weight (lbs) 2024-09-05 23:31:25.000 Systolic Blood Pressure 2024-09-18 12:59:00.000 126 mm [Hg] Systolic Blood Pressure 2024-09-16 15:39:00.000 124 mm [Hg] Systolic Blood Pressure 2024-09-11 14:48:00.000 118 mm [Hg] Systolic Blood Pressure 2024-09-08 12:31:00.000 137 mm [Hg] Systolic Blood Pressure 2024-09-06 21:40:00.000 126 mm [Hg] Diastolic Blood Pressure 2024-09-18 12:59:00.000 78 mm [Hg] Diastolic Blood Pressure 2024-09-16 15:39:00.000 72 mm [Hg] Diastolic Blood Pressure 2024-09-11 14:48:00.000 63 mm [Hg] Diastolic Blood Pressure 2024-09-08 12:31:00.000 81 mm [Hg] Diastolic Blood Pressure 2024-09-06 21:40:00.000 68 mm [Hg] Plan of Treatment Planned Activity Planned Date Details Comments Future Scheduled Test SKILLED NU RSE TO EVALUATE PATIENT, IDENTIFY PRIMARY AND CO-MORBID CONDITIONS CODED PER CODING GUIDELINES, AND DEVELOP PATIENT SPECIFIC PLAN OF CARE THAT INCLUDES PATIENT GOAL FOR HOME HEALTH. [code = SKILLED NURSE TO EVALUATE PATIENT, IDENTIFY PRIMARY AND CO-MORBID CONDITIONS CODED PER CODING GUIDELINES, AND DEVELOP PATIENT SPECIFIC PLAN OF CARE THAT INCLUDES PATIENT GOAL FOR HOME HEALTH.] Future Scheduled Test SKILLED NU RSE TO PERFORM HOME SAFETY AND FALL ASSESSMENT AND PROVIDE INSTRUCTION TO IMPLEMENT HOME SAFETY AND FALL PREVENTION STRATEGIES. [code = SKILLED NURSE TO PERFORM HOME SAFETY AND FALL ASSESSMENT AND PROVIDE INSTRUCTION TO IMPLEMENT HOME SAFETY AND FALL PREVENTION STRATEGIES.] Future Scheduled Test PATIENT GUERRERO S A RISK OF HOSPITALIZATION AND ED USE. SKILLED NURSE TO ESTABLISH SUPPORT MEASURES TO MINIMIZE RISK OF HOSPITALIZATION AND ED USE, AND INSTRUCT PATIENT/CAREGIVER ON METHODS TO REDUCE AVOIDABLE HOSPITALIZATION AND ED USE. [code = PATIENT HAS A RISK OF HOSPITALIZATION AND ED USE. SKILLED NURSE TO ESTABLISH SUPPORT MEASURES TO MINIMIZE RISK OF HOSPITALIZATION AND ED USE, AND INSTRUCT PATIENT/CAREGIVER ON METHODS TO REDUCE AVOIDABLE HOSPITALIZATION AND ED USE.] Future Scheduled Test SKILLED NU RSE TO PROVIDE INSTRUCTION TO PATIENT/CAREGIVER RELATED TO DISCHARGE PLANNING. [code = SKILLED NURSE TO PROVIDE INSTRUCTION TO PATIENT/CAREGIVER RELATED TO DISCHARGE PLANNING.] Future Scheduled Test SKILLED NU RSE WILL MAINTAIN SITUATIONAL AWARENESS FOR SAFETY AND WILL NOTIFY CLINICAL POWER SCREWDRIVER OPERATOR AND PHYSICIAN/PROVIDER WITH ANY CHANGE IN CONDITION. [code = SKILLED NURSE WILL MAINTAIN SITUATIONAL AWARENESS FOR SAFETY AND WILL NOTIFY CLINICAL POWER SCREWDRIVER OPERATOR AND PHYSICIAN/PROVIDER WITH ANY CHANGE IN CONDITION.] Future Scheduled Test SKILLED NU RSE TO REVIEW PATIENT MEDICATIONS. INSTRUCT PATIENT/CAREGIVER ON MONITORING OF EFFECTIVENESS, ADVERSE DRUG REACTIONS, SIDE EFFECTS OF ALL MEDICATIONS (PRESCRIPTION/-OTC), AND HOW AND WHEN TO REPORT PROBLEMS. [code = SKILLED NURSE TO REVIEW PATIENT MEDICATIONS. INSTRUCT PATIENT/CAREGIVER ON MONITORING OF EFFECTIVENESS, ADVERSE DRUG REACTIONS, SIDE EFFECTS OF ALL MEDICATIONS (PRESCRIPTION/-OTC), AND HOW AND WHEN TO REPORT PROBLEMS.] Future Scheduled Test SKILLED NU RSE TO ADMINISTER MEDICATIONS TWICE A WEEK AND PRE-POUR MEDICATIONS TILL NEXT CARE HOME VISIT PER MEDICATION LIST. [code = SKILLED NURSE TO ADMINISTER MEDICATIONS TWICE A WEEK AND PRE-POUR MEDICATIONS TILL NEXT CARE HOME VISIT PER MEDICATION LIST.] Future Scheduled Test SKILLED NU RSE FOR MEDICATION ADMINISTRATION PER MEDICATION LIST TO BE PERFORMED TWICE A WEEK [code = SKILLED NURSE FOR MEDICATION ADMINISTRATION PER MEDICATION LIST TO BE PERFORMED TWICE A WEEK ] Future Scheduled Test SKILLED NU RSE TO PRE-POUR MEDICATION PER MEDICATION LIST TILL NEXT CARE HOME VISIT [code = SKILLED NURSE TO PRE-POUR MEDICATION PER MEDICATION LIST TILL NEXT CARE HOME VISIT ] Future Scheduled Test SKILLED NU RSE FOR O/A OF ALTERED THOUGHT PROCESS AND/OR DISRUPTION IN COGNITIVE OPERATIONS AND ACTIVITIES [code = SKILLED NURSE FOR O/A OF ALTERED THOUGHT PROCESS AND/OR DISRUPTION IN COGNITIVE OPERATIONS AND ACTIVITIES ] Future Scheduled Test SKILLED NU RSE TO ASSESS PATIENTS PSYCHOSOCIAL STATUS TO IDENTIFY POTENTIAL ISSUES THAT MAY COMPLICATE THE PROVISION OF THE PLAN OF CARE INCLUDING THE PATIENTS ABILITY TO ACCESS COMMUNITY RESOURCES AND PSYCHOSOCIAL SUPPORT SERVICES. [code = SKILLED NURSE TO ASSESS PATIENTS PSYCHOSOCIAL STATUS TO IDENTIFY POTENTIAL ISSUES THAT MAY COMPLICATE THE PROVISION OF THE PLAN OF CARE INCLUDING THE PATIENTS ABILITY TO ACCESS COMMUNITY RESOURCES AND PSYCHOSOCIAL SUPPORT SERVICES.] Future Scheduled Test SKILLED NU RSE FOR O/A OF CLIENT'S SOCIAL ISOLATION AND PROVIDE ASSISTANCE TO CLIENT IN DEVELOPMENT OF PLANNED ACTIVITIES [code = SKILLED NURSE FOR O/A OF CLIENT'S SOCIAL ISOLATION AND PROVIDE ASSISTANCE TO CLIENT IN DEVELOPMENT OF PLANNED ACTIVITIES] Future Scheduled Test PHYSICAL T HERAPIST TO EVALUATE PATIENT SECONDARY TO FUNCTIONAL DEFICITS/SAFETY CONCERNS. PHYSICAL THERAPIST TO ASSESS BEST PRACTICE INTERVENTIONS TO ASSIST PATIENTS TO IMPROVE OR STABILIZE MEDICAL STATUS AND PREVENT RE-HOSPITALIZATION. MEASURES INCLUDING REVIEW AND IDENTIFICATION OF CONCERNS FOR THE FOLLOWING AREAS: DEPRESSION, DRUG REGIMEN, ENVIRONMENTAL SAFETY ISSUES AND FALLS, PRESSURE ULCERS, PAIN, AND DISEASE MANAGEMENT. PHYSICAL THERAPY TO ESTABLISH /UPGRADE/DOWNGRADE THERAPEUTIC EXERCISE PROGRAM AND INSTRUCT PATIENT/CAREGIVER ON EXERCISE PRECAUTIONS WITH WRITTEN HOME PROGRAM. MAY INCLUDE AAROM, AROM, RROM APPROPRIATE TO IMPROVE FUNCTIONAL STRENGTH AND RANGE OF MOTION. PHYSICAL THERAPY TO INSTRUCT PATIENT/CAREGIVER ON GAIT TRAINING TECHNIQUES USING APPROPRIATE ASSISTIVE DEVICE, PROPER BODY MECHANICS TO IMPROVE MOBILITY, AND PREVENT INJURY OF PATIENT AND/OR CAREGIVER. PHYSICAL THERAPY TO ASSESS AND RECOMMEND HOME SAFETY ADAPTATIONS AND EDUCATE PATIENT /CAREGIVER ON FALL PREVENTION STRATEGIES. PHYSICAL THERAPY TO INSTRUCT PATIENT/CAREGIVER ON BALANCE AND BALANCE STRATEGIES TO IMPROVE SAFE MOBILITY AND REDUCE RISK FOR FALL AND INJURY INCLUDING PARTICIPATION IN [facility] BALANCE SPECIALTY PROGRAM SUMMARY OF THERAPY EVAL/ASSESSMENT FINDINGS AND REASON(S) SKILLS OF A THERAPIST ARE INDICATED: PATIENT REFERRED DUE TO LEFT HIP FRACTURE RELATED TO FALL ON STAIRS IN June STATUS POST ORIF. WAS SEEN BY SURGEON TODAY TO FOLLOW UP AGAIN IN 6 WEEKS. PAST MEDICAL HISTORY INCLUDES DEMENTIA, MS, HYPERTENSION, CARDIAC STENTS, PERIPHERAL VASCULAR DISEASE WITH STENTS, COPD AND HARD OF HEARING. PATIENTS BASELINE WAS WITHOUT ASSIST DEVICE TO FRONT WHEEL WALKER PRN. PATIENT'S GOALS TO WALK WITHOUT PAIN. PATIENT IS ALERT AND ORIENTATED TIMES THREE WITH SHORT-TERM MEMORY DEFICIT. SHE STANDS 5 FT 1 IN TALL WITH A WEIGHT OF 120 LB. COMPLAINS OF LEFT HIP PAIN 7 OUT OF 10 WITH ACTIVITY. PATIENT CURRENTLY HAS FRONT WHEEL WALKER, WHEELCHAIR AND SHOWER SEAT. PATIENT REQUIRES ASSISTANCE TIMES ONE FOR ADL AND IADL CARE. MULTIPLE CAREGIVERS IN HOME. BP118/63, HR 81, RR17 TEMPERATURE 97.3. PATIENT WITH NOTED BILATERAL LOWER EXTREMITY ONE PLUS PITTING EDEMA. PATIENT'S POSTURE IS FORWARD FLEX WITH ROUND SHOULDERS. RANGE OF MOTION AND EXTREMITIES TIMES FOUR WITHIN FUNCTIONAL LIMITS. NOTED WEAKNESS LEFT HIP 3/5. PATIENT TRANSFERS WAS STAND BY ASSISTANCE. AMBULATING WITH FRONT WHEEL WALKER ANTALGIC PATTERN ON LEFT. TOLERATED ZERO REPETITIONS OF CHAIR RISE TEST. PATIENT HAS FIVE STEPS WITH RAIL TO ENTER HOME. INSTRUCTED THIS VISIT AND RISK OF IN ACTIVITY, SAFETY WITH TRANSFERS AND AMBULATION WITH WALKER, WALKING SCHEDULE. PATIENT WILL BENEFIT FROM SHORT-TERM HOME THERAPY TO ADDRESS PROGRESSIVE GAIT TRAINING DYNAMIC BALANCE TRAINING STRENGTH TRAINING COORDINATION TRAINING CAREGIVER TRAINING. PATIENT AGREES WITH PLAN OF CARE. [code = PHYSICAL THERAPIST TO EVALUATE PATIENT SECONDARY TO FUNCTIONAL DEFICITS/SAFETY CONCERNS. PHYSICAL THERAPIST TO ASSESS BEST PRACTICE INTERVENTIONS TO ASSIST PATIENTS TO IMPROVE OR STABILIZE MEDICAL STATUS AND PREVENT RE-HOSPITALIZATION. MEASURES INCLUDING REVIEW AND IDENTIFICATION OF CONCERNS FOR THE FOLLOWING AREAS: DEPRESSION, DRUG REGIMEN, ENVIRONMENTAL SAFETY ISSUES AND FALLS, PRESSURE ULCERS, PAIN, AND DISEASE MANAGEMENT. PHYSICAL THERAPY TO ESTABLISH /UPGRADE/DOWNGRADE THERAPEUTIC EXERCISE PROGRAM AND INSTRUCT PATIENT/CAREGIVER ON EXERCISE PRECAUTIONS WITH WRITTEN HOME PROGRAM. MAY INCLUDE AAROM, AROM, RROM APPROPRIATE TO IMPROVE FUNCTIONAL STRENGTH AND RANGE OF MOTION. PHYSICAL THERAPY TO INSTRUCT PATIENT/CAREGIVER ON GAIT TRAINING TECHNIQUES USING APPROPRIATE ASSISTIVE DEVICE, PROPER BODY MECHANICS TO IMPROVE MOBILITY, AND PREVENT INJURY OF PATIENT AND/OR CAREGIVER. PHYSICAL THERAPY TO ASSESS AND RECOMMEND HOME SAFETY ADAPTATIONS AND EDUCATE PATIENT /CAREGIVER ON FALL PREVENTION STRATEGIES. PHYSICAL THERAPY TO INSTRUCT PATIENT/CAREGIVER ON BALANCE AND BALANCE STRATEGIES TO IMPROVE SAFE MOBILITY AND REDUCE RISK FOR FALL AND INJURY INCLUDING PARTICIPATION IN [facility] BALANCE SPECIALTY PROGRAM SUMMARY OF THERAPY EVAL/ASSESSMENT FINDINGS AND REASON(S) SKILLS OF A THERAPIST ARE INDICATED: PATIENT REFERRED DUE TO LEFT HIP FRACTURE RELATED TO FALL ON STAIRS IN June STATUS POST ORIF. WAS SEEN BY SURGEON TODAY TO FOLLOW UP AGAIN IN 6 WEEKS. PAST MEDICAL HISTORY INCLUDES DEMENTIA, MS, HYPERTENSION, CARDIAC STENTS, PERIPHERAL VASCULAR DISEASE WITH STENTS, COPD AND HARD OF HEARING. PATIENTS BASELINE WAS WITHOUT ASSIST DEVICE TO FRONT WHEEL WALKER PRN. PATIENT'S GOALS TO WALK WITHOUT PAIN. PATIENT IS ALERT AND ORIENTATED TIMES THREE WITH SHORT-TERM MEMORY DEFICIT. SHE STANDS 5 FT 1 IN TALL WITH A WEIGHT OF 120 LB. COMPLAINS OF LEFT HIP PAIN 7 OUT OF 10 WITH ACTIVITY. PATIENT CURRENTLY HAS FRONT WHEEL WALKER, WHEELCHAIR AND SHOWER SEAT. PATIENT REQUIRES ASSISTANCE TIMES ONE FOR ADL AND IADL CARE. MULTIPLE CAREGIVERS IN HOME. BP118/63, HR 81, RR17 TEMPERATURE 97.3. PATIENT WITH NOTED BILATERAL LOWER EXTREMITY ONE PLUS PITTING EDEMA. PATIENT'S POSTURE IS FORWARD FLEX WITH ROUND SHOULDERS. RANGE OF MOTION AND EXTREMITIES TIMES FOUR WITHIN FUNCTIONAL LIMITS. NOTED WEAKNESS LEFT HIP 3/5. PATIENT TRANSFERS WAS STAND BY ASSISTANCE. AMBULATING WITH FRONT WHEEL WALKER ANTALGIC PATTERN ON LEFT. TOLERATED ZERO REPETITIONS OF CHAIR RISE TEST. PATIENT HAS FIVE STEPS WITH RAIL TO ENTER HOME. INSTRUCTED THIS VISIT AND RISK OF IN ACTIVITY, SAFETY WITH TRANSFERS AND AMBULATION WITH WALKER, WALKING SCHEDULE. PATIENT WILL BENEFIT FROM SHORT-TERM HOME THERAPY TO ADDRESS PROGRESSIVE GAIT TRAINING DYNAMIC BALANCE TRAINING STRENGTH TRAINING COORDINATION TRAINING CAREGIVER TRAINING. PATIENT AGREES WITH PLAN OF CARE.] Goal Patient Goal - NOTE FALL AND TAKE MY MEDS Goal Provider Goal - A PLAN OF CARE WILL BE ESTABLISHED THAT MEETS PATIENT'S CARE HOME NEEDS AND INCLUDES PATIENT GOAL FOR HOME HEALTH. Goal Provider Goal - PATIENT/CAREGIVER WILL VERBALIZE/DEMONSTRATE EFFECTIVE HOME SAFETY AND FALL PREVENTION STRATEGIES THROUGHOUT CERTIFICATION PERIOD. Goal Provider Goal - PATIENT WILL HAVE SUPPORT MEASURES ESTABLISHED TO PREVENT HOSPITALIZATION AND ED USE AND PATIENT/CAREGIVER WILL VERBALIZE/DEMONSTRATE METHODS TO REDUCE AVOIDABLE HOSPITALIZATION AND ED USE BY END OF EPISODE. Goal Provider Goal - PATIENT/CAREGIVER WILL VERBALIZE UNDERSTANDING OF DISCHARGE PLANNING INSTRUCTIONS BY DATE OF DISCHARGE. Goal Provider Goal - PATIENT WILL REMAIN SAFE IN THE COMMUNITY AND WILL BE FREE OF DANGER TO SELF AND OTHERS THROUGHOUT THE CERTIFICATION PERIOD. Goal Provider Goal - PATIENT/CAREGIVER WILL VERBALIZE UNDERSTANDING OF EDUCATION PROVIDED ON MEDICATIONS BY THE END OF THE CERTIFICATION PERIOD. Goal Provider Goal - PATIENT WILL COMPLY WITH MEDICATION WHEN SKILLED NURSE ADMINISTERS AND PRE-POURS MEDICATION THROUGHOUT CERTIFICATION PERIOD. Goal Provider Goal - PATIENT WILL COMPLY WITH MEDICATION WHEN NURSE ADMINISTERS THROUGHOUT CERTIFICATION PERIOD. Goal Provider Goal - PATIENT WILL COMPLY WITH MEDICATION WHEN SKILLED NURSE PRE-POURS MEDICATION THROUGHOUT CERTIFICATION PERIOD. Goal Provider Goal - PATIENT WILL BE ABLE TO PERFORM DAILY FUNCTIONS AND HAVE OPTIMAL IMPROVEMENT IN THOUGHT PROCESS THROUGHOUT CERTIFICATION PERIOD. Goal Provider Goal - PSYCHOSOCIAL NEEDS WILL BE IDENTIFIED AND PLAN IMPLEMENTED TO MINIMIZE RISK THROUGHOUT CERTIFICATION PERIOD. Goal Provider Goal - PATIENT WILL DEMONSTRATE AN INCREASED INTEREST IN SOCIALIZATION AND ACTIVITIES BY THE END OF THE CERTIFICATION PERIOD. Goal Provider Goal - PHYSICAL THERAPY EVALUATION TO BE COMPLETED WITH RECOMMENDATIONS AND/OR WRITTEN TREATMENT PLAN OF CARE ESTABLISHED FOR THE PHYSICIANS SIGNATURE PATIENT/CAREGIVER VERBALIZES UNDERSTANDING OF THE INITIAL BEST PRACTICE RECOMMENDATIONS. PHYSICIAN TO BE NOTIFIED APPROPRIATE FOR ANY CHANGES OR COMPLICATIONS THROUGHOUT THE CERTIFICATION PERIOD. PATIENT/CAREGIVER WILL PERFORM THERAPEUTIC EXERCISE/S AND DEMONSTRATE PARTICIPATION IN A HOME PROGRAM. PATIENT/CAREGIVER WILL DEMONSTRATE IMPROVED GAIT TECHNIQUES TO MINIMIZE RISK OF INJURY. PATIENT/CAREGIVER WILL DEMONSTRATE/VERBALIZE UNDERSTANDING OF RECOMMENDATIONS TO INCREASE SAFETY IN THE HOME AND FALL PREVENTION. PATIENT/CAREGIVER WILL DEMONSTRATE IMPROVED BALANCE AND REDUCE THE RISK OF FALLS AND INJURY. Encounters Start Date/Time End Date/Time Encounter Type Admission Type Attending [facility] Care Department Encounter ID Discharge Date Discharge Status Discharge Condition Discharge Reason Percent Goals Met 2024-09-05 00:00:00 2024-11-03 00:00:00 Outpatient GERTRUDE ERVIN [facility] [id number]
[2024-09-21 22:20] LABS: Troponin-I High Sensitivity < 2.7 ng/L (<3.5-17.0)
--- OUTSIDE RECORDS SUMMARY | 2024-09-21 22:20 | XMS_ITS | Encounter Summary ---
Author Organization [facility] Address [address] [place] [address] Care Team Providers Care Superintendent [employer] Name Role Phone Sushil Stewart MD Primary Care Provider [phone] Encounter Details Date Type Department Care Team (Late st Contact Info) Description 08/16/2024 Lab Requisition [facility] - Main Lab [address] [place] [address] Carmela Thomas MD [address] [phone] Heart failure, unspecified (CMS/HCC) Social History Tobacco [...] LAB CHEMISTRY METHOD 08/17/2024 2:03 PM EST [facility] ([facility]) [facility] Potassium 3.7 3.5 - 5.5 mmol/L LAB CHEMISTRY METHOD 08/17/2024 2:03 PM [facility] LAB Chloride 102 96 - 110 mmol/L LAB CHEMISTRY METHOD 08/17/2024 2:03 PM [facility] LAB CO2 30 21 - 32 mmol/L LAB CHEMISTRY METHOD 08/17/2024 2:03 PM [facility] LAB Anion Gap 7 3 - 11 LAB CHEMISTRY METHOD 08/17/2024 2:03 PM [facility] LAB Glucose 157(H) 70 - 100 mg/dL LAB CHEMISTRY METHOD 08/17/2024 2:03 PM [facility] BUN 13 5 - 25 mg/dL LAB CHEMISTRY METHOD 08/17/2024 2:03 PM [facility] LAB Creatinine 0.65 0.50 - 1.10 mg/dL LAB CHEMISTRY METHOD 08/17/2024 2:03 PM [facility] LAB eGFR 94 >=60 mL/min/1. 73m2 LAB CHEMISTRY METHOD 08/17/2024 2:03 PM [facility] LAB Comment:Calculation based on the??Chronic Kidney Disease Epidemiology Collaboration (CKD-EPI) equation refit??without adjustment for race. BUN/Creatinine Ratio 20.0 LAB CHEMISTRY METHOD 08/17/2024 2:03 PM [facility] LAB Calcium 9.8 8.5 - 10.5 mg/dL LAB CHEMISTRY METHOD 08/17/2024 2:03 PM [facility] LAB AST (SGOT) 23 10 - 42 unit/L LAB CHEMISTRY METHOD 08/17/2024 2:03 PM [facility] LAB ALT (SGPT) 70(H) 10 - 60 unit/L LAB CHEMISTRY METHOD 08/17/2024 2:03 PM [facility] Alkaline Phosphatase 177(H) 42 - 121 unit/L LAB CHEMISTRY METHOD 08/17/2024 2:03 PM [facility] Total Protein 6.0 6.0 - 8.0 g/dL LAB CHEMISTRY METHOD 08/17/2024 2:03 PM [facility] Albumin 2.9(L) 3.2 - 5.0 g/dL LAB CHEMISTRY METHOD 08/17/2024 2:03 PM [facility] Total Bilirubin 0.2 0.0 - 1.4 mg/dL LAB CHEMISTRY METHOD 08/17/2024 2:03 PM [facility] Blood Venous blood specimen / Unknown Venipuncture / Unknown 08/17/2024 9:34 AM EST 08/17/2024 11:30 AM EST us Carmela Thomas MD LAB BLOOD ORDERABLES Fin al Result [facility] [address] [place] [address], * (ABNORMAL) Complete blood count (08/17/2024 9:34 AM EST) WBC 13.9(H) 4.8 - 10.8 K/mcL LAB HEMETOLOGY METHOD 08/17/2024 1:30 PM [facility] RBC 3.10(L) 3.80 - 4.80 M/mcL LAB HEMETOLOGY METHOD 08/17/2024 1:30 PM [facility] Hemoglobin 9.4(L) 11.5 - 16.0 g/dL LAB HEMETOLOGY METHOD 08/17/2024 1:30 PM [facility] LAB Hematocrit 30.2(L) 35.0 - 47.0 % LAB HEMETOLOGY METHOD 08/17/2024 1:30 PM [facility] MCV 97.7 79.0 - 98.0 FL LAB HEMETOLOGY METHOD 08/17/2024 1:30 PM [facility] MCH 30.4 27.0 - 32.0 pcg LAB HEMETOLOGY METHOD 08/17/2024 1:30 PM EST [facility] MCHC 31.1(L) 32.0 - 37.0 g/dL LAB HEMETOLOGY METHOD 08/17/2024 1:30 PM [facility] RDW 14.0 11.0 - 15.0 % LAB HEMETOLOGY METHOD 08/17/2024 1:30 PM [facility] Platelets 427(H) 130 - 400 K/mcL LAB HEMETOLOGY METHOD 08/17/2024 1:30 PM EST [facility] MPV 10.3 7.0 - 11.0 FL LAB HEMETOLOGY METHOD 08/17/2024 1:30 PM [facility] NRBC 0.0 <1.0 % LAB HEMETOLOGY METHOD 08/17/2024 1:30 PM [facility] LAB NRBC Absolute 0.00 <0.10 K/mcL LAB HEMETOLOGY METHOD 08/17/2024 1:30 PM [facility] Blood Venous blood specimen / Unknown Venipuncture / Unknown 08/17/2024 9:34 AM EST 08/17/2024 11:30 AM EST us Carmela Thomas MD LAB BLOOD ORDERABLES Fin al Result [facility] [address] [place] [address], documented in this encounter Visit Diagnoses Diagnosis Heart failure, unspecified (CMS/HCC) Heart failure, unspecified documented in this encounter Care Teams Superintendent [employer] Relationship Specialty Start Date End Date Sushil Stewart MD [address] [place] [address] [address] [place], [place] PCP - General Internal Medicine 10/14/17 documented as of this encounter
--- OUTSIDE RECORDS SUMMARY | 2024-09-21 22:20 | XMS_ITS | Encounter Summary ---
Author Organization [facility] Address [address] [place] [address] Care Team Providers Care Blue Leather Sorter Name Role Phone Sushil Stewart MD Primary Care Provider [phone] Encounter Details Date Type Department Care Team (Late st Contact Info) Description 08/01/2024 Lab Requisition [facility] - Main Lab [address] [place] [address] Carmela Thomas MD [address] [phone] Heart failure, unspecified (CMS/HCC) Social History Tobacco [...] LAB CHEMISTRY METHOD 08/03/2024 11:51 AM EST [facility] ([facility] Potassium 3.2(L) 3.5 - 5.5 mmol/L LAB CHEMISTRY METHOD 08/03/2024 11:51 AM [facility] LAB Chloride 101 96 - 110 mmol/L LAB CHEMISTRY METHOD 08/03/2024 11:51 AM [facility] LAB CO2 33(H) 21 - 32 mmol/L LAB CHEMISTRY METHOD 08/03/2024 11:51 AM [facility] LAB Anion Gap 6 3 - 11 LAB CHEMISTRY METHOD 08/03/2024 11:51 AM [facility] LAB Glucose 87 70 - 100 mg/dL LAB CHEMISTRY METHOD 08/03/2024 11:51 AM [facility] BUN 16 5 - 25 mg/dL LAB CHEMISTRY METHOD 08/03/2024 11:51 AM [facility] LAB Creatinine 0.62 0.50 - 1.10 mg/dL LAB CHEMISTRY METHOD 08/03/2024 11:51 AM [facility] LAB eGFR 95 >=60 mL/min/1. 73m2 LAB CHEMISTRY METHOD 08/03/2024 11:51 AM [facility] LAB Comment:Calculation based on the??Chronic Kidney Disease Epidemiology Collaboration (CKD-EPI) equation refit??without adjustment for race. BUN/Creatinine Ratio 25.8 LAB CHEMISTRY METHOD 08/03/2024 11:51 AM [facility] LAB Calcium 9.4 8.5 - 10.5 mg/dL LAB CHEMISTRY METHOD 08/03/2024 11:51 AM [facility] LAB AST (SGOT) 37 10 - 42 unit/L LAB CHEMISTRY METHOD 08/03/2024 11:51 AM [facility] ALT (SGPT) 63(H) 10 - 60 unit/L LAB CHEMISTRY METHOD 08/03/2024 11:51 AM [facility] LAB Alkaline Phosphatase 193(H) 42 - 121 unit/L LAB CHEMISTRY METHOD 08/03/2024 11:51 AM [facility] LAB Total Protein 5.9(L) 6.0 - 8.0 g/dL LAB CHEMISTRY METHOD 08/03/2024 11:51 AM [facility] Albumin 3.0(L) 3.2 - 5.0 g/dL LAB CHEMISTRY METHOD 08/03/2024 11:51 AM [facility] Total Bilirubin 0.3 0.0 - 1.4 mg/dL LAB CHEMISTRY METHOD 08/03/2024 11:51 AM [facility] LAB Blood Venous blood specimen / Unknown Venipuncture / Unknown 08/03/2024 7:22 AM EST 08/03/2024 10:51 AM EST us Carmela Thomas MD LAB BLOOD ORDERABLES Fin al Result [facility] [address] [place] [address], * (ABNORMAL) Complete blood count (08/03/2024 7:22 AM EST) WBC 11.0(H) 4.8 - 10.8 K/mcL LAB HEMETOLOGY METHOD 08/03/2024 11:15 AM [facility] RBC 3.60(L) 3.80 - 4.80 M/mcL LAB HEMETOLOGY METHOD 08/03/2024 11:15 AM [facility] Hemoglobin 10.9(L) 11.5 - 16.0 g/dL LAB HEMETOLOGY METHOD 08/03/2024 11:15 AM [facility] LAB Hematocrit 33.8(L) 35.0 - 47.0 % LAB HEMETOLOGY METHOD 08/03/2024 11:15 AM [facility] LAB MCV 94.9 79.0 - 98.0 FL LAB HEMETOLOGY METHOD 08/03/2024 11:15 AM [facility] LAB MCH 30.6 27.0 - 32.0 pcg LAB HEMETOLOGY METHOD 08/03/2024 11:15 AM EST [facility] MCHC 32.2 32.0 - 37.0 g/dL LAB HEMETOLOGY METHOD 08/03/2024 11:15 AM [facility] LAB RDW 13.5 11.0 - 15.0 % LAB HEMETOLOGY METHOD 08/03/2024 11:15 AM EST [facility] LAB Platelets 347 130 - 400 K/mcL LAB HEMETOLOGY METHOD 08/03/2024 11:15 AM EST [facility] MPV 10.4 7.0 - 11.0 FL LAB HEMETOLOGY METHOD 08/03/2024 11:15 AM [facility] LAB NRBC 0.0 <1.0 % LAB HEMETOLOGY METHOD 08/03/2024 11:15 AM [facility] LAB NRBC Absolute 0.00 <0.10 K/mcL LAB HEMETOLOGY METHOD 08/03/2024 11:15 AM [facility] LAB Blood Venous blood specimen / Unknown Venipuncture / Unknown 08/03/2024 7:22 AM EST 08/03/2024 10:51 AM EST us Carmela hTomas MD LAB BLOOD ORDERABLES Fin al Result [facility] [address] [place] [address], documented in this encounter Visit Diagnoses Diagnosis Heart failure, unspecified (CMS/HCC) Heart failure, unspecified documented in this encounter Care Teams Blue Leather Sorter Relationship Specialty Start Date End Date Sushil Stewart MD [address] [place] [address] [address] [place], [place] PCP - General Internal Medicine 10/14/17 documented as of this encounter
--- OUTSIDE RECORDS SUMMARY | 2024-09-21 22:20 | XMS_ITS | Clinical Summary ---
Author Organization [address] Address [address] [place] [address] Phone Care Team Providers Care Application Coordinator Name Role Phone Sushil Stewart MD Primary Care Provider [phone] Encounters Date Type Department Care Team Description 08/23/2024 Lab Requisition [facility] Lab [address] [place] [phone] Carmela Thomas MD Heart failure, unspecified (CMS/HCC) 08/16/2024 Lab Requisition [facility] Lab [address] [place] [phone] Carmela Thomas MD Heart failure, unspecified (CMS/HCC) 08/08/2024 Lab Requisition [facility] Lab [address] [place] [phone] Carmela Thomas MD Heart failure, unspecified (CMS/HCC) 08/01/2024 Lab Requisition [facility] Lab [address] [place] [phone] Carmela Thomas MD Heart failure, unspecified (CMS/HCC) 07/27/2024 Lab Requisition [facility] Lab [address] [place] [phone] Carmela Thomas MD Heart failure, unspecified (CMS/HCC) from Last 3 Months Surgical History Surgery Date Site/Laterality Comments BACK SURGERY PROCEDURE: HISTORICAL BACK SURGERY; COMMENT: x 3 OTHER SURGICAL HISTORY PROCEDURE: HISTORY OTHER; COMMENT: sinus surgery HYSTERECTOMY PROCEDURE: HISTORICAL HYSTERECTOMY CHOLECYSTECTOMY PROCEDURE: HISTORICAL CHOLECYSTECTOMY ANGIOPLASTY PROCEDURE: HISTORICAL ANGIOPLASTY W/STENT OTHER SURGICAL HISTORY 11/03/2021 PROCEDURE: AR ARTHRD ANT INTERBODY MIN DSC CRV BELOW C2; COMMENT: C5-6 ACDF, Dr. Doss Medical History Medical History Date Comments COPD (chronic obstructive pu lmonary disease) ([facility]/HCC) 04/11/2018 DX:COPD (chronic obstructive pulmonary disease) ([facility]) GERD (gastroesophageal reflu x disease) 04/11/2018 DX:GERD [...] Comments Breast Cancer Screening 1950 RSV Immunization Adult Patients (1 - Risk 60-74 years 1-dose series) [...] age to complete this topic Meningococcal B Vaccine Aged Out No l onger eligible based on patient's age to complete [...] K/mcL LAB HEMETOLOGY METHOD 08/17/2024 1:30 PM [facility] RBC 3.10(L) 3.80 - 4.80 M/mcL LAB HEMETOLOGY METHOD 08/17/2024 1:30 PM [facility] Hemoglobin 9.4(L) 11.5 - 16.0 g/dL LAB HEMETOLOGY METHOD 08/17/2024 1:30 PM [facility] LAB Hematocrit 30.2(L) 35.0 - 47.0 % LAB HEMETOLOGY METHOD 08/17/2024 1:[address] [facility] MCV 97.7 79.0 - 98.0 FL LAB HEMETOLOGY METHOD 08/17/2024 1:30 PM [facility] MCH 30.4 27.0 - 32.0 pcg LAB HEMETOLOGY METHOD 08/17/2024 1:[address] [facility] MCHC 31.1(L) 32.0 - 37.0 g/dL LAB HEMETOLOGY METHOD 08/17/2024 1:[address] [facility] RDW 14.0 11.0 - 15.0 % LAB HEMETOLOGY METHOD 08/17/2024 1:30 PM [facility] Platelets 427(H) 130 - 400 K/mcL LAB HEMETOLOGY METHOD 08/17/2024 1:[address] [facility] MPV 10.3 7.0 - 11.0 FL LAB HEMETOLOGY METHOD 08/17/2024 1:[address] [facility] NRBC 0.0 <1.0 % LAB HEMETOLOGY METHOD 08/17/2024 1:30 PM [facility] NRBC Absolute 0.00 <0.10 K/mcL LAB HEMETOLOGY METHOD 08/17/2024 1:[address] [facility] Blood Venous blood specimen / Unknown Venipuncture / Unknown 08/17/2024 9:34 AM EST 08/17/2024 11:30 AM EST us Carmela Thomas MD LAB BLOOD ORDERABLES Fin al Result [facility] [address] [place] [address], * (ABNORMAL) Comprehensive metabolic panel (08/17/2024 9:34 AM EST) Only the most recent of4 resultswithin the time period is included. Sodium 139 133 - 145 mmol/L LAB CHEMISTRY METHOD 08/17/2024 2:03 PM [facility] Potassium 3.7 3.5 - 5.5 mmol/L LAB CHEMISTRY METHOD 08/17/2024 2:03 PM [facility] Chloride 102 96 - 110 mmol/L LAB CHEMISTRY METHOD 08/17/2024 2:03 PM [facility] CO2 30 21 - 32 mmol/L LAB CHEMISTRY METHOD 08/17/2024 2:03 PM [facility] Anion Gap 7 3 - 11 LAB CHEMISTRY METHOD 08/17/2024 2:03 PM [facility] Glucose 157(H) 70 - 100 mg/dL LAB CHEMISTRY METHOD 08/17/2024 2:03 PM [facility] BUN 13 5 - 25 mg/dL LAB CHEMISTRY METHOD 08/17/2024 2:03 PM [facility] Creatinine 0.65 0.50 - 1.10 mg/dL LAB CHEMISTRY METHOD 08/17/2024 2:03 PM [facility] eGFR 94 >=60 mL/min/1. 73m2 LAB CHEMISTRY METHOD 08/17/2024 2:03 PM [facility] Comment:Calculation based on the??Chronic Kidney Disease Epidemiology Collaboration (CKD-EPI) equation refit??without adjustment for race. BUN/Creatinine Ratio 20.0 LAB CHEMISTRY METHOD 08/17/2024 2:03 PM [facility] Calcium 9.8 8.5 - 10.5 mg/dL LAB CHEMISTRY METHOD 08/17/2024 2:03 PM [facility] AST (SGOT) 23 10 - 42 unit/L LAB CHEMISTRY METHOD 08/17/2024 2:03 PM [facility] ALT (SGPT) 70(H) 10 - 60 unit/L LAB CHEMISTRY METHOD 08/17/2024 2:[address] [facility] Alkaline Phosphatase 177(H) 42 - 121 unit/L LAB CHEMISTRY METHOD 08/17/2024 2:03 PM [facility] Total Protein 6.0 6.0 - 8.0 g/dL LAB CHEMISTRY METHOD 08/17/2024 2:03 PM [facility] Albumin 2.9(L) 3.2 - 5.0 g/dL LAB CHEMISTRY METHOD 08/17/2024 2:03 PM [facility] Total Bilirubin 0.2 0.0 - 1.4 mg/dL LAB CHEMISTRY METHOD 08/17/2024 2:03 PM [facility] Blood Venous blood specimen / Unknown Venipuncture / Unknown 08/17/2024 9:34 AM EST 08/17/2024 11:30 AM EST us Carmela Thomas MD LAB BLOOD ORDERABLES Fin al Result [facility] [address] [place] [address], from Last 3 Months Insurance MEDICARE Care Teams Application Coordinator Relationship Specialty Start Date End Date Sushil Stewart MD [address] [place] [address] [address] [place], [place] PCP - General Internal Medicine 10/14/17
--- OUTSIDE RECORDS SUMMARY | 2024-09-21 22:20 | XMS_ITS | Encounter Summary ---
Author Organization [facility] Address [address] [place] [address] Care Team Providers Care Assistant Dean Of Students Name Role Phone Sushil Stewart MD Primary Care Provider Encounter Details Date Type Department Care Team (Late st Contact Info) Description 08/23/2024 Lab Requisition [facility] - Main Lab [address] [facility] [place] [address] Carmela Thomas MD [address] [address] Heart failure, unspecified (CMS/HCC) Social History Tobacco [...] unspecified documented in this encounter Care Teams Assistant Dean Of [employer] Relationship Specialty Start Date End Date Sushil Stewart MD [address] [place], [place] PCP - General Internal Medicine 10/14/17 documented as of this encounter
--- OUTSIDE RECORDS SUMMARY | 2024-09-21 22:20 | XMS_ITS | Clinical Summary ---
Author Organization Unknown Care Team Providers Care Lead Java [email or web address] Developer Name Role Phone DELIA TERRY, KATHY Unavailable Unavailable ADAMS TAVARES, GERTRUDE Unavailable Unavailable Payers Payer Name Policy Type Policy Number Effective Date Expira tion Date [place]IC[place] - [place] [id number] [facility] [id number] Problems Condition Name Condition Details Condition Category [...] 11-30 00:00: 00 08-20 23:59 :00 No [id number] Per instruc tions FOUR TIMES A DAY DIRECTED TO BEGIN 3 DAYS Per instructio ns FOUR TIMES A DAY DIRECTED TO BEGIN 3 DAYS (route: ophthalmic (eye)) Med Classific ation: Ophthalmi c Agents Prolensa 0.07 % eye drops 11-30 00:00: 00 08-20 23:59 :00 No [id number] Per instruc tions ONCE A DAY DIRECTED TO BEGIN 3 DAYS Per instructio ns ONCE A DAY DIRECTED TO BEGIN 3 DAYS (route: ophthalmic (eye)) Med Classific ation: Ophthalmi c Agents oxycodone-a cetaminophe n 10 mg-325 mg tablet 11-16 00:00: 00 08-20 23:59 :00 No [id number] Per instruc tions EVERY 4 TO 6 HOURS Per instructio ns EVERY 4 TO 6 HOURS (route: oral) Med Classific ation: Analgesic , Anti-infl ammatory or Antipyret ic amlodipine 10 mg tablet 12-09 00:00: 00 08-20 23:59 :00 No [id number] 1 tablet DAILY 1 tablet DAILY (route: oral) Med Classific ation: Cardiovas cular Therapy Agents aspirin 81 mg tablet,sarah yed release 12-09 00:00: 00 08-20 23:59 :00 No [id number] 1 tablet DAILY 1 tablet DAILY (route: oral) Med Classific ation: Hematolog ical Agents atorvastati n 20 mg tablet 12-09 00:00: 00 08-20 23:59 :00 No [id number] 1 tablet BEDTIME 1 tablet BEDTIME (route: oral) Med Classific ation: Cardiovas cular Therapy Agents buspirone 5 mg tablet 12-09 00:00: 00 08-20 23:59 :00 No [id number] 1 tablet 2 TIMES DAILY 1 tablet 2 TIMES DAILY (route: oral) Med Classific ation: Central Nervous System Agents Cymbalta 60 mg capsule,del ayed release 12-09 00:00: 00 08-20 23:59 :00 No [id number] 1 capsule DAILY 1 capsule DAILY (route: oral) Med Classific ation: Central Nervous System Agents diclofenac potassium 50 mg tablet 12-09 00:00: 00 08-20 23:59 :00 No [id number] 1 tablet 2 TIMES DAILY 1 tablet 2 TIMES DAILY (route: oral) Med Classific ation: Analgesic , Anti-infl ammatory or Antipyret ic esomeprazol e magnesium 40 mg capsule,del ayed release 12-09 00:00: 00 08-20 23:59 :00 No [id number] 1 capsule DAILY 1 capsule DAILY (route: oral) Med Classific ation: Gastroint estinal Therapy Agents fluticasone furoate 200 mcg-vilante rol 25 mcg/dose inhalation powder 12-09 00:00: 00 08-20 23:59 :00 No [id number] 1 inhalat ion DAILY 1 inhalation DAILY (route: inhalation ) Med Classific ation: Respirato ry Therapy Agents fluticasone propionate 50 mcg/actuati on nasal spray,suspe nsion 12-09 00:00: 00 08-20 23:59 :00 No [id number] 1 spray DAILY 1 spray DAILY (route: nasal) Med Classific ation: Respirato ry Therapy Agents hydrochloro thiazide 25 mg tablet 12-09 00:00: 00 08-20 23:59 :00 No [id number] 1 tablet DAILY 1 tablet DAILY (route: oral) Med Classific ation: Cardiovas cular Therapy Agents lamotrigine 25 mg tablet 12-09 00:00: 00 08-20 23:59 :00 No [id number] 2 tablet 2 TIMES DAILY 2 tablet 2 TIMES DAILY (route: oral) Med Classific ation: Central Nervous System Agents metoprolol tartrate 25 mg tablet 12-09 00:00: 00 08-20 23:59 :00 No [id number] 1 tablet 2 TIMES DAILY 1 tablet 2 TIMES DAILY (route: oral) Med Classific ation: Cardiovas cular Therapy Agents Myrbetriq 50 mg tablet,exte nded release 12-09 00:00: 00 08-20 23:59 :00 No [id number] 1 tablet DAILY 1 tablet DAILY (route: oral) Med Classific ation: Genitouri nary Therapy Nicoderm CQ 21 mg/24 hr daily transdermal patch 12-09 00:00: 00 08-20 23:59 :00 No [id number] 1 patch, transde rmal 24 hours DAILY 1 patch, transderma l 24 hours DAILY (route: transderma l) Med Classific ation: Chemical Dependenc y, Agents to Treat Percocet 10 mg-325 mg tablet 12-09 00:00: 00 08-20 23:59 :00 No [id number] 1 tablet NEEDED 1 tablet NEEDED (route: oral) Med Classific ation: Analgesic , Anti-infl ammatory or Antipyret ic Plavix 75 mg tablet 12-09 00:00: 00 08-20 23:59 :00 No [id number] 1 tablet DAILY 1 tablet DAILY (route: oral) Med Classific ation: Hematolog ical Agents prednisone 10 mg tablet 12-09 00:00: 00 12-22 23:59 :00 No [id number] Per instruc tions DAILY Per instructio ns DAILY (route: oral) Med Classific ation: Endocrine Soma 350 mg tablet 12-09 00:00: 00 08-20 23:59 :00 No [id number] 1 tablet DIRECTED 1 tablet DIRECTED (route: oral) Med Classific ation: Locomotor System Xanax 0.25 mg tablet 12-09 00:00: 00 08-20 23:59 :00 No [id number] 1 tablet BEDTIME 1 tablet BEDTIME (route: oral) Med Classific ation: Central Nervous System Agents O2 - OXYGEN 12-08 00:00: 00 08-20 23:59 :00 No [id number] 2-4 Liter O2 - CONTINUOUS 2-4 Liter O2 - CONTINUOUS (route: Oxygen) Alternate Route: O2 - NASAL CANNULA. Med Classific ation: Medical Oxygen amlodipine 5 mg tablet 09-05 00:00: 00 Yes [id number] 5 mg DAILY 5 mg CRYSTAL Y (route: oral) Med Classific ation: Cardiovas cular Therapy Agents aspirin 81 mg chewable tablet 09-05 00:00: 00 Yes [id number] 81 mg DAILY 81 mg DAILY (route: oral) Med Classific ation: Hematolog ical Agents cholecalcif anya (vitamin D3) 50 mcg (2,000 unit) capsule 09-05 00:00: 00 Yes [id number] 50 mcg DAILY 50 mcg DAILY (route: oral) Med Classific ation: Electroly te Balance-N utritiona l Products clopidogrel 75 mg tablet 09-05 00:00: 00 Yes [id number] 75 mg DAILY 75 mg DAILY (route: oral) Med Classific ation: Hematolog ical Agents cyclobenzap rine 10 mg tablet 09-05 00:00: 00 Yes [id number] 10 mg NEEDED 10 mg NEEDED (route: oral) Med Classific ation: Locomotor System fluticasone furoate 100 mcg-vilante rol 25 mcg/dose inhalation powder 09-05 00:00: 00 Yes [id number] 100 mcg DAILY 100 mcg DAILY (route: inhalation ) Med Classific ation: Respirato ry Therapy Agents ipratropium 0.5 mg-albutero l 3 mg (2.5 mg base)/3 mL nebulizatio n soln 09-05 00:00: 00 Yes [id number] 3 mL 4 TIMES DAILY 3 mL 4 TIMES DAILY (route: inhalation ) Med Classific ation: Respirato ry Therapy Agents levalbutero l 1.25 mg/3 mL solution for nebulizatio n 09-05 00:00: 00 Yes [id number] 3 mL NEEDED 3 mL NEEDED (route: inhalation ) Med Classific ation: Respirato ry Therapy Agents losartan 50 mg tablet 09-05 00:00: 00 Yes [id number] 50 mg BEDTIME 50 mg BEDTIME (route: oral) Med Classific ation: Cardiovas cular Therapy Agents metoprolol tartrate 25 mg tablet 09-05 00:00: 00 Yes [id number] 25 mg 2 TIMES DAILY 25 mg 2 TIMES DAILY (route: oral) Med Classific ation: Cardiovas cular Therapy Agents nicotine 7 mg/24 hr daily transdermal patch 09-05 00:00: 00 Yes [id number] 7 mg DAILY 7 mg CRYSTAL Y (route: transderma l) Med Classific ation: Chemical Dependenc y, Agents to Treat olanzapine 5 mg tablet 09-05 00:00: 00 Yes [id number] 5 mg 2 TIMES DAILY 5 mg 2 TIMES DAILY (route: oral) Med Classific ation: Central Nervous System Agents oxycodone 5 mg tablet 09-05 00:00: 00 Yes [id number] 5 mg NEEDED 5 mg NEEDED (route: oral) Med Classific ation: Analgesic , Anti-infl ammatory or Antipyret ic rosuvastati n 40 mg tablet 09-05 00:00: 00 Yes [id number] 40 mg BEDTIME 40 mg BEDTIME (route: oral) Med Classific ation: Cardiovas cular Therapy Agents sertraline 50 mg tablet 09-05 00:00: 00 Yes [id number] 50 mg DAILY 50 mg DAILY (route: oral) Med Classific ation: Central Nervous System Agents trazodone 50 mg tablet 09-05 00:00: 00 Yes [id number] 50 mg NEEDED 50 mg NEEDED (route: [...] AWARENESS FOR SAFETY AND WILL NOTIFY CLINICAL IMAGING CENTER MANAGER AND PHYSICIAN/PROVIDER WITH ANY CHANGE IN CONDITION. [code = SKILLED NURSE WILL MAINTAIN SITUATIONAL AWARENESS FOR SAFETY AND WILL NOTIFY CLINICAL IMAGING CENTER MANAGER AND PHYSICIAN/PROVIDER WITH ANY CHANGE IN CONDITION.] [...] A WEEK AND PRE-POUR MEDICATIONS TILL NEXT [facility] VISIT PER MEDICATION LIST. [code = SKILLED NURSE TO ADMINISTER MEDICATIONS TWICE A WEEK AND PRE-POUR MEDICATIONS TILL NEXT [facility] VISIT PER MEDICATION LIST.] Future Scheduled Test SKILLED NU RSE FOR MEDICATION ADMINISTRATION PER MEDICATION LIST TO BE PERFORMED TWICE A WEEK [code = SKILLED NURSE FOR MEDICATION ADMINISTRATION PER MEDICATION LIST TO BE PERFORMED TWICE A WEEK ] Future Scheduled Test SKILLED NU RSE TO PRE-POUR MEDICATION PER MEDICATION LIST TILL NEXT [facility]DC VISIT [code = SKILLED NURSE TO PRE-POUR MEDICATION PER MEDICATION LIST TILL NEXT [facility]DC VISIT ] Future Scheduled Test SKILLED NU [...] FOR FALL AND INJURY INCLUDING PARTICIPATION IN [facility] BAL[facility] SPECIALTY PROGRAM SUMMARY OF THERAPY EVAL/ASSESSMENT [...] FOR FALL AND INJURY INCLUDING PARTICIPATION IN [facility] BALANCE SPECIALTY PROGRAM SUMMARY OF THERAPY EVAL/ASSESSMENT [...] CARE WILL BE ESTABLISHED THAT MEETS PATIENT'S FDC NEEDS AND INCLUDES PATIENT GOAL FOR HOME [...] End Date/Time Encounter Type Admission Type Attending [facility] Care Facility Care Department Encounter ID Discharge Date Discharge Status Discharge Condition Discharge Reason Percent Goals Met 2024-09-05 00:00:00 2024-11-03 00:00:00 Outpatient GERTRUDE ERVIN [facility] [id number] 58.82
--- OUTSIDE RECORDS SUMMARY | 2024-09-21 22:20 | XMS_ITS | Encounter Summary ---
Author Organization [facility] Address [address] [place] [address] Care Team Providers Care Tankage Grinder Operator Name Role Phone Sushil Stewart MD Primary Care Provider [phone] Encounter Details Date Type Department Care Team (Late st Contact Info) Description 08/08/2024 Lab Requisition [facility] - Main Lab [address] [place] [address] Carmela Thomas MD [address] [phone] Heart failure, unspecified (CMS/HCC) Social History Tobacco [...] LAB CHEMISTRY METHOD 08/10/2024 12:42 PM EST [facility] ([facility]) [facility] Potassium 3.3(L) 3.5 - 5.5 mmol/L LAB CHEMISTRY METHOD 08/10/2024 12:42 PM [facility] Chloride 106 96 - 110 mmol/L LAB CHEMISTRY METHOD 08/10/2024 12:42 PM [facility] CO2 29 21 - 32 mmol/L LAB CHEMISTRY METHOD 08/10/2024 12:42 PM [facility] Anion Gap 9 3 - 11 LAB CHEMISTRY METHOD 08/10/2024 12:42 PM [facility] Glucose 94 70 - 100 mg/dL LAB CHEMISTRY METHOD 08/10/2024 12:42 PM [facility] BUN 18 5 - 25 mg/dL LAB CHEMISTRY METHOD 08/10/2024 12:42 PM [facility] Creatinine 0.62 0.50 - 1.10 mg/dL LAB CHEMISTRY METHOD 08/10/2024 12:42 PM [facility] eGFR 95 >=60 mL/min/1. 73m2 LAB CHEMISTRY METHOD 08/10/2024 12:42 PM [facility] Comment:Calculation based on the??Chronic Kidney Disease Epidemiology Collaboration (CKD-EPI) equation refit??without adjustment for race. BUN/Creatinine Ratio 29.0 LAB CHEMISTRY METHOD 08/10/2024 12:42 PM [facility] Calcium 9.2 8.5 - 10.5 mg/dL LAB CHEMISTRY METHOD 08/10/2024 12:42 PM [facility] AST (SGOT) 38 10 - 42 unit/L LAB CHEMISTRY METHOD 08/10/2024 12:42 PM [facility] ALT (SGPT) 68(H) 10 - 60 unit/L LAB CHEMISTRY METHOD 08/10/2024 12:42 PM [facility] Alkaline Phosphatase 145(H) 42 - 121 unit/L LAB CHEMISTRY METHOD 08/10/2024 12:42 PM [facility] Total Protein 5.8(L) 6.0 - 8.0 g/dL LAB CHEMISTRY METHOD 08/10/2024 12:42 PM [facility] Albumin 2.7(L) 3.2 - 5.0 g/dL LAB CHEMISTRY METHOD 08/10/2024 12:42 PM [facility] Total Bilirubin 0.3 0.0 - 1.4 mg/dL LAB CHEMISTRY METHOD 08/10/2024 12:42 PM EST [facility] Blood Venous blood specimen / Unknown Venipuncture / Unknown 08/10/2024 8:28 AM EST 08/10/2024 11:20 AM EST us Carmela Thomas MD LAB BLOOD ORDERABLES Fin al Result [facility] [address] [place] [address], * (ABNORMAL) Complete blood count (08/10/2024 8:28 AM EST) WBC 10.7 4.8 - 10.8 K/mcL LAB HEMETOLOGY METHOD 08/10/2024 1:20 PM [facility] RBC 3.10(L) 3.80 - 4.80 M/mcL LAB HEMETOLOGY METHOD 08/10/2024 1:20 PM [facility] Hemoglobin 9.3(L) 11.5 - 16.0 g/dL LAB HEMETOLOGY METHOD 08/10/2024 1:20 PM [facility] Hematocrit 29.3(L) 35.0 - 47.0 % LAB HEMETOLOGY METHOD 08/10/2024 1:20 PM [facility] MCV 95.8 79.0 - 98.0 FL LAB HEMETOLOGY METHOD 08/10/2024 1:20 PM [facility] MCH 30.4 27.0 - 32.0 pcg LAB HEMETOLOGY METHOD 08/10/2024 1:20 PM EST [facility] MCHC 31.7(L) 32.0 - 37.0 g/dL LAB HEMETOLOGY METHOD 08/10/2024 1:20 PM EST [facility] RDW 14.2 11.0 - 15.0 % LAB HEMETOLOGY METHOD 08/10/2024 1:20 PM EST [facility] Platelets 280 130 - 400 K/mcL LAB HEMETOLOGY METHOD 08/10/2024 1:20 PM EST [facility] MPV 10.2 7.0 - 11.0 FL LAB HEMETOLOGY METHOD 08/10/2024 1:20 PM EST [facility] NRBC 0.0 <1.0 % LAB HEMETOLOGY METHOD 08/10/2024 1:20 PM [facility] NRBC Absolute 0.00 <0.10 K/mcL LAB HEMETOLOGY METHOD 08/10/2024 1:20 PM [facility] Blood Venous blood specimen / Unknown Venipuncture / Unknown 08/10/2024 8:28 AM EST 08/10/2024 11:21 AM EST us Carmela Thomas MD LAB BLOOD ORDERABLES Fin al Result [facility] [address] [place] [address], documented in this encounter Visit Diagnoses Diagnosis Heart failure, unspecified (CMS/HCC) Heart failure, unspecified documented in this encounter Care Teams Tankage Grinder Operator Relationship Specialty Start Date End Date Sushil Stewart MD [address] [place] [address] [address] [place], [place] PCP - General Internal Medicine 10/14/17 documented as of this encounter
--- OUTSIDE RECORDS SUMMARY | 2024-09-21 22:20 | XMS_ITS ---
Author Organization [facility] Address [address] [place] [address] Care Team Providers Care Plastic Jig And Fixture Builder Name Role Phone Terry TERRY, Sushil Primary Care Provider Unavail Epifanio Marin Unavailable [phone] Waddell Encounters Encounter Location Date Provider Diagnosis [address] [address] 06/12/2024 Epifanio Palacios Plan Of Treatment Next Appt Details Provider Name:Epifanio Palacios , 10/30/2024 01:15:00 PM, [address] [place] [address], [phone], Provider Name:Epifanio Palacios , 12/08/2024 10:00:00 AM, [address] [place] [address], [phone], Progress Notes * Isabela MANZO MDOB: [birth year] (73 yo F)Acc No.[id number]:06/12/2024 Progress Note Patient:?Amber MANZOchelsie Michelle Provider:?Epifanio Palacios DPM :1950???Age:73 Y???Sex:Female D ate:06/12/2024 Address:[address] [place] [address] Pcp:Sushil Stewart MD Subjective: * Chief Complaints: [...] Palacios DPM Date:?2023 Generated for Nadeem candelario/Tanvir/Carmen on:?09/21/2024 10:19 PM EDT
--- OUTSIDE RECORDS SUMMARY | 2024-09-21 22:20 | XMS_ITS ---
Author Organization [facility] Address [address] [place] [address] Care Team Providers Care Carton Forming Machine Tender Name Role Phone Sushil Stewart MD Primary Care Provider Unavail Epifanio Marin Unavailable [phone] Allergies Allergen (clinical drug ingredient) Drug/Non Drug [...] Active Encounters Encounter Location Date Provider Diagnosis [address] [address] 07/07/2024 Epifanio Palacios Plan Of Treatment Next Appt Details Provider Name:Epifanio Palacios , 10/30/2024 01:15:00 PM, [address] [place] [address], [phone], Provider Name:Epifanio Palacios , 12/08/2024 10:00:00 AM, [address] [place] [address], [phone], Progress Notes * Isabela MANZO MDOB: [birth year] (73 yo F)Acc No.[id number]:07/07/2024 Progress Note Patient:Isabela RAJAN Provider:?Epifanio Palacios DPM :1950???Age:73 Y???Sex:Female D ate:07/07/2024 Address:[address] [place], [place] [id number] Pcp:Sushil Stewart MD Subjective: * Chief Complaints: [...] Provider:?Epifanio Palacios DPM Date:?2024 Generated for Nadeem candelario/Tanvir/Kevsmitting on:?09/21/2024 10:19 PM EDT
[2024-09-21] MEDS: Aspirin 81 MG TAB.CHEW PO (23:03)
--- NOTE | 2024-09-21 23:22 | PM.IMHP ---
History of Present Illness Date of Service: 09/21/24 Attending physician on admission: Peter Mccabe Chief Complaint: slurred speech Pt is a 73 yo f with a pmhx significant for chronic hypoxemic respiratory failure due to COPD on 2 L baseline supplemental oxygen at home, mood disorder, hypertension, chronic opiate use, MS, tobacco use presented to the emergency department as a stroke protocol, as patient noted by her family had garbled speech since noon. she stated that she was not feeling well and took a nap. when she woke she had issues with balance and states that she felt unsteady and has had slurred speech, which is not her baseline. her granddaughter (nurse here) checked on her and she was found to have very low BP ?60s systolic, which has since normalized. the pt also reports a headache, and denies and URI sx or urinary sx. no recent illness or GI issues either. Review of Systems Constitutional: Constitutional: Denies chills, Denies fever(s) and Reports headache(s) Eyes: Eyes: Denies change in vision and Denies photophobia ENT: Reports headache(s), Denies nasal congestion, Denies nasal discharge and Denies sore throat Cardiovascular: Cardiovascular: Denies chest pain, Denies rapid heart rate, Denies leg edema, Denies lightheadedness and Denies dyspnea Respiratory: Respiratory: Denies chest congestion, Denies cough, Denies dyspnea and Denies wheezing Gastrointestinal: Gastrointestinal: Denies diarrhea, Denies nausea and Denies vomiting Genitourinary: Genitourinary: Denies hematuria, Denies dysuria and Denies urinary urgency Musculoskeletal: Musculoskeletal: Reports as per HPI Integumentary/Breasts: Skin/Breast: Denies rash Neurologic: Reports as per HPI, Denies confusion and Reports headache(s) Psychiatric: Psychiatric: Denies confusion Endocrine: Endocrine: Denies polyuria Hematologic/Lymphatic: Hematologic/Lymphatic: Denies easy bleeding and Denies easy bruising Allergic/Immunologic: Allergic/Immunologic: Denies wheezing [facility] Medical History MDD (major depressive disorder), recurrent episode Essential hypertension Leukocytosis History of CAD (coronary artery disease) Peripheral vascular disease Chronic back pain GERD (gastroesophageal reflux disease) High cholesterol HTN (hypertension) Immune disorder COPD (chronic obstructive pulmonary disease) Multiple sclerosis Surgical History History of angioplasty History of heart artery stent Social History Household Members: None Housing: Assisted Living Facility Do you presently have visiting nurse or other home services: No Alcohol intake: never Comment: 5 miinute checks Patient Tobacco Use Status: Never used Tobacco Tobacco use type: Cigarette Cigarette Packs Per Day: 1 Cigarettes Per Day: 20.0 Smoked in Last 30 Days: Yes Use of substances other than those prescribed or required for medical reasons: No Advance Directives: Yes Advance Directives on File: Yes Advance Directives Date on File: 11/22/22 Do you have a plan to hurt others: No Plan service: No Current occupational status: retired Sexual orientation: Straight/Heterosexual Meds Allergies Allergy/AdvReac Type Severity Reaction Status Date / Time codeine [CODEINE] Allergy Unknown Hives Verified 09/21/24 21:42 Active Medications: Current Medications Acetaminophen (Acetaminophen 325 Mg Tablet) 975 mg PO Q6H PRN PRN Reason: Pain, Mild 1-3,fever,headache Calcium Carbonate (Calcium Carbonate 750 Mg Tab.Chew) 750 mg PO Q4H PRN PRN Reason: Heartburn Enoxaparin Sodium (Enoxaparin Sodium 40 Mg/0.4 Ml Syringe) 40 mg SUBCUT Q24H RAJNI Magnesium Hydroxide (Milk Of Magnesia 30 Ml Oral.Susp) 30 ml PO DAILY PRN PRN Reason: Constipation Melatonin (Melatonin 3 Mg Tablet) 6 mg PO BEDTIME PRN PRN Reason: Insomnia Ondansetron HCl (Ondansetron Hcl 4 Mg/2 Ml Vial) 4 mg IVPUSH Q8H PRN PRN Reason: Nausea and Vomiting Oxycodone HCl (Oxycodone Hcl Immed Release 5 Mg Tablet) 5 mg PO Q6H PRN PRN Reason: Pain, Moderate(Pain Scale 4-6) Sodium Chloride (0.9 % Sodium Chloride Flush 3 Ml Syringe) 3 ml IVFLUSH QSHIFT [facility] Home Medications ?Medication ?Instructions ?Recorded ?Confirmed ?Last Taken ?Type grzdqhoqjb-ngcjojsdwnpwj-[id number] 1 cap PO Q24H PRN Headache 11/15/22 08/21/24 Unknown History 50 mg-300 mg-40 mg capsule erenumab-aooe 140 mg/mL 140 mg subcut Q28D 11/15/22 08/21/24 1 Week Ago History subcutaneous auto-injector ~06/30/24 (Aimovig Autoinjector) esomeprazole magnesium 40 mg 40 mg PO DAILY@0630 11/15/22 08/21/24 07/06/24 History capsule,delayed release fluticasone propionate 50 1 spray intranasal Q12H PRN 11/15/22 08/21/24 2 Days Ago History mcg/actuation nasal allergies ~11/13/22 spray,suspension immun glob G 10 50 ml subcut MCKENZIE@0900 11/15/22 08/21/24 06/29/24 History gram/50mL(20%)-gly-IgA over 50 mcg/mL subcutaneous suzanna (Cuvitru) ocrelizumab 30 mg/mL intravenous 600 mg IV [id number] 11/15/22 08/21/24 6 Months Ago History solution ~01/05/24 roflumilast 500 mcg tablet 500 mcg PO DAILY 07/07/24 08/21/24 07/06/24 History bisacodyl 10 mg rectal suppository 10 mg MD NEEDED PRN step 2 if 08/20/24 08/21/24 Unknown History no BM 8 hours after MOM magnesium hydroxide 400 mg/5 mL 30 ml PO NEEDED PRN No Bm for 08/20/24 08/21/24 Unknown History oral suspension (Milk of Magnesia) three days ondansetron HCl 4 mg tablet 4 mg PO Q8H PRN nausea/vomitting 08/20/24 08/21/24 Unknown History oxycodone-acetaminophen 10 mg-325 1 tab PO Q4-6H 09/21/24 09/21/24 Unknown History mg tablet Physical Exam Vital Signs and Narrative: Vital Signs: Last Vital Signs Pulse 62 09/21/24 22:02 Resp 11 L 09/21/24 22:02 BP 122/52 L 09/21/24 22:02 Pulse Ox 96 09/21/24 22:02 O2 Del Method Nasal Cannula 09/21/24 22:02 O2 Flow Rate 2 09/21/24 22:02 BMI result Body Mass Index 21.3 General: AOx3, no acute distress Resp: CTA bilaterally, no rhonchi or wheezing CVS: S1, S2, RRR GI: +BS, NT, no distention Skin: Warm, dry Neuro: Cranial nerves II-XII grossly intact bilaterally. Motor grossly intact bilaterally. 2/5 strength LUE and LLE, 4/5 strength RUE and RLE. slurred speech Extremities: No LE edema Psych: Appropriate affect Const: General: No confusion Orientation/consciousness: No confusion Eyes: Direct Ophthalmoscopy: No photophobia Neuro: General: No confusion Results Labs 09/21/24 21:41 09/21/24 21:41 Labs: Laboratory Results - last 24 hr 09/21/24 09/21/24 09/21/24 21:36 21:41 21:59 MCV 87.0 MCH 28.0 MCHC 32.2 RDW 14.4 Plt Count 404 H MPV 9.4 Immature Gran % (Auto) 0.5 H Neut % (Auto) 61.9 Lymph % (Auto) 23.5 [place] % (Auto) 10.5 Eos % (Auto) 3.0 Baso % (Auto) 0.6 Lymph # (Auto) 2.2 [place] # (Auto) 1.0 Eos # (Auto) 0.3 Baso # (Auto) 0.1 Abs Immat Gran (auto) 0.05 H Absolute Neuts (auto) 5.9 Absolute Nucleated RBC 0.000 Nucleated RBC % (auto) 0.0 Hold Purple Top SEE NOTE PT 11.0 Whole Blood PT 13.0 INR 0.9 Whole Blood INR 1.1 APTT 28.6 Anion Gap 12 Estim Creat Clear Calc 39.6 Estimated GFR 51 POC Glucose 138 H 102 Random Glucose 107 Calcium 8.8 Triglycerides 82 Cholesterol 117 LDL Cholesterol, Calc 50 HDL Cholesterol 51 Assessment and Plan (1) CVA (cerebral vascular accident): Status: Acute (2) Anemia: Status: Chronic Plan Pt is a 73 yo f with a pmhx significant for chronic hypoxemic respiratory failure due to COPD on 2 L baseline supplemental oxygen at home, mood disorder, hypertension, chronic opiate use, MS, tobacco use presented to the emergency department as a stroke protocol, as patient noted by her family had garbled speech since noon. CVA - new onset dysarthria and left sided weakness, noted at noon today. no TNK given, outside window. - CT head/CTA head/neck negative for acute CVA - lipid panel normal - given ASA 81mg in ED - passed bedside swallow - MRI in AM - neurology consult - PT/OT/speech eval - pt already on statin and plavix - neurochecks Q2H - monitor on tele chronic anemia - H+ H stable. no need for blood transfusion - monitor CBC chronic respiratory failure/COPD unspecified - no acute exacerbation - continue home meds/O2 2L via [place] mood disorder - continue home meds HTN - hold BP meds due to low BP earlier today chronic opiate use - continue oxycodone - avoid morphine as there were concerns during last admission for hallucinations with it MS - continue home meds full code VTE prophy: lovenox Patient new onset dysarthria left-sided weakness, likely CVA, requiring admission for at least 2 midnights stay for further evaluation and neurology consultation. Quality Stroke Does the patient have a stroke diagnosis?: No VTE Prior VTE?: No VTE Risk Level:: Medical - moderate - high VTE Device Contraindication: Treatment Not Indicated VTE Drug Contraindication: N/A - Med Ordered
[2024-09-21] MEDS: Acetaminophen 325 MG TABLET 975 MG PO (23:50)
[2024-09-21] MEDS: oxyCODONE HCl Immed Release 5 MG TABLET PO (23:50)
[2024-09-21 23:51] VITALS: BP 114/58; PULSE 69; RESP 14; TEMP 36.6; O2SAT 100
[2024-09-22] VITALS (7 sets, daily range): BP systolic 103–152; BP diastolic 54–72; PULSE 66–91; RESP 13–20; TEMP 36.4–37.4; O2SAT 94–99; BMI 21.7
--- NOTE | 2024-09-22 | PC.NURSE ---
pt requested tylenol in addition to the oxycodone when this RN went to administer it, as she takes percocet at home prescribed. therefore pain score documented as 6 in aug and does not fall within parameters of acetaminophen pain score of 1-3.
[2024-09-22 04:36] LABS: Appearance Urine Cloudy; Color Urine Yellow; Glucose Urine UA Negative (Negative); Leukocyte Esterase Urine Moderate (2+) (Negative); Nitrite Urine Positive (Negative); PH 5.5 (5.0-9.0); Specific Gravity - Urine >= 1.030 (1.005-1.025); UMIC TRIGGER UACC YES; Urine Blood Trace (Negative); Urine Ketones Negative (Negative); Urine Protein Trace mg/dL (Neg-Trace)
[2024-09-22 04:50] LABS: Bacteria Urine 4+ (None Seen); RBC Urine 0-2 /HPF (0-2); Squamous Epithelial Cell Urine 0-2 /HPF (0-2); UACC Culture Trigger YES; WBC Urine >50 /HPF (0-5)
[2024-09-22 05:27] LABS: Hemoglobin 8.9 g/dl (12.0-16.0); Mean Corpuscular HGB Conc 31.8 g/dl (31.0-35.0); Mean Corpuscular Hemoglobin 27.6 pg (27.0-33.0); Mean Platelet Volume 9.6 fL (9.4-12.3); Platelet Count 377 X10*3/uL (160-400); Red Blood Count 3.22 X10*6/uL (4.20-5.50); Red Cell Distribution Width 14.5 % (11.0-16.0); White Blood Count 9.6 X10*3/uL (4.8-10.8)
[2024-09-22 05:47] LABS: Anion Gap 10 (12-20); Blood Urea Nitrogen 15 mg/dL (9-16); Calcium 8.6 mg/dL (8.4-10.2); Carbon Dioxide 26 mmol/L (22-29); Chloride 108 mmol/L (96-108); Creatinine Clr Calc Pharmacy 48.9; Estimated Glomerular Filt Rate > 60; Glucose Random 86 mg/dL (60-115); Potassium 4.3 mmol/L (3.3-5.1); Sodium 140 mmol/L (135-145)
[2024-09-22] MEDS: oxyCODONE HCl Immed Release 5 MG TABLET PO ×2 (08:51→17:12)
[2024-09-22] MEDS: 0.9 % Sodium Chloride Flush 3 ML SYRINGE IVFLUSH ×3 (08:51→20:08)
--- NOTE | 2024-09-22 09:13 | PC.NURSE ---
physical therapy met with patient this morning. patient alert and oriented, family remains at bedside. ate 100% of breakfast, call norman within reach. awaiting mri and bed assignment.
--- NOTE | 2024-09-22 09:44 | PHA.MEDREC ---
Addendum entered by Kenya Navas RPh 09/22/24 10:11: reviewed by [facility]. Original Note: Pharmacy Consult ? Medication Reconciliation Pharmacy has completed the medication reconciliation. Spoke to patient and spouse at bedside to confirm med list. Patient states she was discharged from [facility] 09/02/24 and no change in med list. Patient state she is not sure of her last dose of Aimovig Autoinjector or when her next dose is, Cuvitru 50 ml is every Saturday, last dose was 09/20/24, Ocrevus 600 mg [id number] next dose is suppose to be tomorrow, however she will have to reschedule due to being admitted here. Utilized claim and discharge packet to confirm med list.
[2024-09-22] MEDS: Cyclobenzaprine HCl 10 MG TABLET PO (10:37)
[2024-09-22] MEDS: Sertraline HCL 50 MG TABLET PO (10:37)
[2024-09-22] MEDS: Clopidogrel Bisulfate 75 MG TABLET PO (10:37)
[2024-09-22] MEDS: Enoxaparin Sodium 40 MG/0.4 ML SYRINGE SUBCUT (10:38)
[2024-09-22] MEDS: Milk of Magnesia 30 ML ORAL.SUSP PO (10:38)
--- NOTE | 2024-09-22 11:59 | MHC.SL.SWA ---
Speech Pathologist Impression: Mild anomic aphasia, mild dysarthria Dysphasia Diet Status: No Change Liquid Consistency and Strategies for Safe Swallow: Liquid Intake Recommendation: Thin Liquid Intake Strategies: Small Sips Solid Food Consistency: Dietary Recommendations: Regular Additional Modifications to Solid Foods: Oral Medication Intake: Whole with Liquid Please contact the pharmacy regarding appropriate crushable or liquid drug formulations that are available whenever modified delivery is recommended. Compensatory Strategies and Precautions to be Taken for Safe Swallow: Sitting Upright (90 deg) Small Bites and Sips Alternate Liquids/Solids Rate of Ingestion Change Supervision While Eating and Drinking for Safe Swallow: Intermittent Supervision Foods to Avoid: Patient says she avoids nuts when she does not have her dentures with her. Swallowing Recommended Treatments: Compens. Strategy Educat. Recommendation for Speech: Inpatient Speech Therapy- Re-assess Speech & Language Forms Designer Clinican/Clinical Fellow: No Supervisory Statement: I have reviewed and agree with the student/clinical fellow's documentation: N/A Speech Language Pathologist: Afia Campbell M.A., CCC-JEWELRY TECHNICIAN
--- NOTE | 2024-09-22 12:15 | PC.NURSE ---
off unit in MRI
--- NOTE | 2024-09-22 13:39 | MHC.CM.PN ---
IMM 09/22/24, Pt lives with family, she has home care services to assist with showers, dressing, housework. She has SN and PT services fro [facility]. PCP confirmed: Sushil Stewart. HCP on file and confirmed: her , [place]. For DME, pt has home O2 from [employer], walker, w/c (she said she does not use), commode, shower chair. She said she is not walking very much at all recently. Family to transport home at DC, DCP: home, resume [facility] services. CM to follow for DC needs.
--- NOTE | 2024-09-22 15:56 | P.PNIM_ITS ---
Subjective Subjective Date of Service: 09/22/24 Interval History: Seen and evaluated this morning Feels better overall no more speech abnormalities BP improved but still running low no other events Review of Systems Review of Systems: Yes all other systems are reviewed and are negative Physical Exam 2 Vital Signs: Vital Signs: Last Vital Signs Temp 99.0 F 09/22/24 15:26 Pulse 91 09/22/24 15:26 Resp 18 09/22/24 15:26 BP 133/61 09/22/24 15:26 Pulse Ox 94 09/22/24 15:26 O2 Del Method Nasal Cannula 09/22/24 15:26 O2 Flow Rate 2 09/22/24 15:26 BMI result Body Mass Index 21.7 Const: Other: Constitutional : Awake, interactive, not in distress Neck : Normal inspection, Supple Cardiovascular : RRR, no JVP, no lower extremity edema Respiratory : good bilateral air entry, no crackles, wheezes or rhonchi Gastrointestinal: soft, lax, Normal bowel sounds, Non tender Skin : Warm, Dry Neurological : Alert & oriented x3, No focal deficit Objective Data Active Medications Acetaminophen (Acetaminophen 325 Mg Tablet) 975 mg PO Q6H PRN PRN Reason: Pain, Mild 1-3,fever,headache Last Admin: 09/21/24 23:50 Dose: 975 mg Documented By: AMANUEL Acetaminophen/Butalbital/Caffeine (Butalb/Acetamin/Caff 50/325/40 Tablet) 1 tab PO Q24H PRN PRN Reason: Headache Albuterol/Ipratropium (Albuterol/Iprat 2.5/0.5mg 3 Ml Ampul.Neb) 3 ml INHALE QID PRN PRN Reason: wheezing Aspirin (Aspirin Enteric Coated 81 Mg Tablet.Dr) 81 mg PO DAILY [facility] Atorvastatin Calcium (Atorvastatin Calcium 20 Mg Tablet) 20 mg PO BEDTIME [facility] Bisacodyl (Bisacodyl 10 Mg Supp.Rect) 10 mg [place] Q24H PRN PRN Reason: step 2 if no BM 8 hours after MOM Calcium Carbonate (Calcium Carbonate 750 Mg Tab.Chew) 750 mg PO Q4H PRN PRN Reason: Heartburn Clopidogrel Bisulfate (Clopidogrel Bisulfate 75 Mg Tablet) 75 mg PO DAILY [facility] Last Admin: 09/22/24 10:37 Dose: 75 mg Documented By: WALDEMAR Cyclobenzaprine HCl (Cyclobenzaprine Hcl 10 Mg Tablet) 10 mg PO DAILY PRN PRN Reason: muscle spasms Last Admin: 09/22/24 10:37 Dose: 10 mg Documented By: WALDEMAR Enoxaparin Sodium (Enoxaparin Sodium 40 Mg/0.4 Ml Syringe) 40 mg SUBCUT Q24H RAJNI Last Admin: 09/22/24 10:38 Dose: 40 mg Documented By: WALDEMAR Fluticasone Propionate (Fluticasone Propionate Nasal [address] [place]) 1 spray NOSTRIL-B Q12H PRN PRN Reason: allergies Fluticasone/Umeclidinium/Vilanterol (Fluticasone/Umeclidinium/Vilanterol 100/62.5/25 Blst.W.Dev) 1 puff INHALE RDAILY [facility] Levalbuterol HCl (Levalbuterol Hcl 1.25 Mg/3 Ml Vial.Neb) 1.25 mg INHALE TID PRN PRN Reason: shortness of breath or wheezing Magnesium Hydroxide (Milk Of Magnesia 30 Ml Oral.Susp) 30 ml PO DAILY PRN PRN Reason: Constipation Last Admin: 09/22/24 10:38 Dose: 30 ml Documented By: WALDEMAR Magnesium Hydroxide (Milk Of Magnesia 30 Ml Oral.Susp) 30 ml PO DAILY PRN PRN Reason: No Bm for three days Melatonin (Melatonin 3 Mg Tablet) 6 mg PO BEDTIME PRN PRN Reason: Insomnia Metoprolol Tartrate (Metoprolol Tartrate 12.5 Mg Halftab) 12.5 mg PO BID [facility]; Protocol Nicotine (Nicotine 7 Mg Patch.Td24) 7 mg TRANSDERMA DAILY [facility] Olanzapine (Olanzapine 5 Mg Tablet) 5 mg PO BID [facility] Ondansetron HCl (Ondansetron Hcl 4 Mg/2 Ml Vial) 4 mg IVPUSH Q8H PRN PRN Reason: Nausea and Vomiting Oxycodone HCl (Oxycodone Hcl Immed Release 5 Mg Tablet) 5 mg PO Q6H PRN PRN Reason: Pain, Moderate(Pain Scale 4-6) Last Admin: 09/22/24 08:51 Dose: 5 mg Documented By: DALLIN Pantoprazole Sodium (Pantoprazole Sodium 20 Mg Tablet.) 40 mg PO DAILY@0630 [facility] Roflumilast (Roflumilast 500 Mcg Tablet) 500 mcg PO DAILY [facility] Sertraline HCl (Sertraline Hcl 50 Mg Tablet) 50 mg PO DAILY [facility] Last Admin: 09/22/24 10:37 Dose: 50 mg Documented By: WALDEMAR Sodium Chloride (0.9 % Sodium Chloride Flush 3 Ml Syringe) 3 ml IVFLUSH QSHIFT [facility] Last Admin: 09/22/24 15:26 Dose: 3 ml Documented By: MAU Trazodone HCl (Trazodone Hcl 50 Mg Tablet) 50 mg PO BEDTIME PRN PRN Reason: Insomnia Labs 09/22/24 04:54 09/22/24 04:54 Labs: Laboratory Results - last 24 hr 09/21/24 09/21/24 09/21/24 21:36 21:41 21:59 MCV 87.0 MCH 28.0 MCHC 32.2 RDW 14.4 Plt Count 404 H MPV 9.4 Immature Gran % (Auto) 0.5 H Neut % (Auto) 61.9 Lymph % (Auto) 23.5 Kay % (Auto) 10.5 Eos % (Auto) 3.0 Baso % (Auto) 0.6 Lymph # (Auto) 2.2 Kay # (Auto) 1.0 Eos # (Auto) 0.3 Baso # (Auto) 0.1 Abs Immat Gran (auto) 0.05 H Absolute Neuts (auto) 5.9 Absolute Nucleated RBC 0.000 Nucleated RBC % (auto) 0.0 Hold Purple Top SEE NOTE PT 11.0 Whole Blood PT 13.0 INR 0.9 Whole Blood INR 1.1 APTT 28.6 Anion Gap 12 Estim Creat Clear Calc 39.6 Estimated GFR 51 POC Glucose 138 H 102 Random Glucose 107 Calcium 8.8 Triglycerides 82 Cholesterol 117 LDL Cholesterol, Calc 50 HDL Cholesterol 51 Urine Color Urine Appearance Urine pH Ur Specific [place] Urine Protein Urine Glucose (UA) Urine Ketones Urine Blood Urine Nitrite Ur Leukocyte Esterase Urine RBC Urine WBC Ur Squamous Epith Cells Urine Bacteria Hyaline Casts 09/22/24 09/22/24 04:18 04:54 MCV 87.0 MCH 27.6 MCHC 31.8 RDW 14.5 Plt Count 377 MPV 9.6 Immature Gran % (Auto) Neut % (Auto) Lymph % (Auto) Kay % (Auto) Eos % (Auto) Baso % (Auto) Lymph # (Auto) Kay # (Auto) Eos # (Auto) Baso # (Auto) Abs Immat Gran (auto) Absolute Neuts (auto) Absolute Nucleated RBC 0.000 Nucleated RBC % (auto) 0.0 Hold Purple Top PT Whole Blood PT INR Whole Blood INR APTT Anion Gap 10 L Estim Creat Clear Calc 48.9 Estimated GFR > 60 POC Glucose Random Glucose 86 Calcium 8.6 Triglycerides Cholesterol LDL Cholesterol, Calc HDL Cholesterol Urine Color Yellow Urine Appearance Cloudy Urine pH 5.5 Ur Specific [place] >= 1.030 H Urine Protein Trace Urine Glucose (UA) Negative Urine Ketones Negative Urine Blood Trace H Urine Nitrite Positive H Ur Leukocyte Esterase Moderate (2+) H Urine RBC 0-2 Urine WBC >50 H Ur Squamous Epith Cells 0-2 Urine Bacteria 4+ Hyaline Casts 6-10 Assessment and Plan (1) Anemia: Status: Chronic (2) Garbled speech: Status: Acute (3) Brain TIA: Status: Acute (4) UTI (urinary tract infection): Status: Acute Plan Pt is a 73 yo f with a pmhx significant for chronic hypoxemic respiratory failure due to COPD on 2 L baseline supplemental oxygen at home, mood disorder, hypertension, chronic opiate use, MS, tobacco use presented to the emergency department as a stroke protocol, as patient noted by her family had garbled speech since noon. TIA reported dysarthria and left sided weakness CT head/CTA head/neck negative for acute CVA ASA 81mg daily passed bedside swallow MRI pending neurology consult PT/OT/speech eval Continue statin and plavix neurochecks monitor on tele UTI Pending cultures Continue Ceftriaxone chronic anemia H+ H stable. no need for blood transfusion monitor CBC chronic respiratory failure/COPD unspecified no acute exacerbation continue home meds/O2 2L via NC mood disorder continue home meds HTN hold BP meds due to low BP earlier today chronic opiate use continue oxycodone PRN avoid morphine as there were concerns during last admission for hallucinations with it MS continue home meds full code VTE prophy: lovenox Patient new onset dysarthria left-sided weakness, UTI, requiring overnight stay for further evaluation, MRI and neurology consultation pending cultures on IV antibiotics Quality Stroke Does the patient have a stroke diagnosis?: No VTE Prior VTE?: No VTE Risk Level:: Medical - moderate - high VTE Device Contraindication: Treatment Not Indicated VTE Drug Contraindication: N/A - Med Ordered
[2024-09-22] MEDS: cefTRIAXone sodium 1 GM VIAL IVPUSH (17:03)
--- NOTE | 2024-09-22 17:59 | P.CNNE_ITS ---
History of Present Illness Data of Consult Service Date: 09/22/24 Primary Care Provider: Unknown Physician HPI Reason for consult: Garbled speech Pt is a 73 yo f with a pmhx significant for chronic hypoxemic respiratory failure due to COPD on 2 L baseline supplemental oxygen at home, mood disorder, hypertension, chronic opiate use, MS, tobacco use presented to the emergency department as a stroke protocol, as patient noted by her family had garbled speech since noon. she stated that she was not feeling well and took a nap. when she woke she had issues with balance and states that she felt unsteady and has had slurred speech, which is not her baseline. her granddaughter (nurse here) checked on her and she was found to have very low BP ?60s systolic, which has since normalized. She boothe sa UTI. CTA of head and neck negative. 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 She slippe dand fell on ice in August 2024 and had a left hip fracture [facility] Past Medical History Medical History MDD (major depressive disorder), recurrent episode Essential hypertension Leukocytosis History of CAD (coronary artery disease) Peripheral vascular disease Chronic back pain GERD (gastroesophageal reflux disease) High cholesterol HTN (hypertension) Immune disorder COPD (chronic obstructive pulmonary disease) Multiple sclerosis Surgical History Surgical History History of angioplasty History of heart artery stent Social History Social History Household Members: Significant Other Housing: Apartment Do you presently have visiting nurse or other home services: Yes Alcohol intake: never Comment: 5 miinute checks Patient Tobacco Use Status: Former Tobacco user Tobacco use type: Cigarette Cigarette Packs Per Day: 1 Cigarettes Per Day: 20.0 Advance Directives Date on File: 11/22/22 service: No Current occupational status: retired Sexual orientation: Straight/Heterosexual Meds Allergies Allergy/AdvReac Type Severity Reaction Status Date / Time codeine [CODEINE] Allergy Unknown Hives Verified 09/21/24 21:42 Active Medications: Current Medications Acetaminophen (Acetaminophen 325 Mg Tablet) 975 mg PO Q6H PRN PRN Reason: Pain, Mild 1-3,fever,headache Last Admin: 09/21/24 23:50 Dose: 975 mg Acetaminophen/Butalbital/Caffeine (Butalb/Acetamin/Caff 50/325/40 Tablet) 1 tab PO Q24H PRN PRN Reason: Headache Albuterol/Ipratropium (Albuterol/Iprat 2.5/0.5mg 3 Ml Ampul.Neb) 3 ml INHALE QID PRN PRN Reason: wheezing Aspirin (Aspirin Enteric Coated 81 Mg Tablet.Dr) 81 mg PO DAILY [facility] Atorvastatin Calcium (Atorvastatin Calcium 20 Mg Tablet) 20 mg PO BEDTIME [facility] Bisacodyl (Bisacodyl 10 Mg Supp.Rect) 10 mg [place] Q24H PRN PRN Reason: step 2 if no BM 8 hours after MOM Calcium Carbonate (Calcium Carbonate 750 Mg Tab.Chew) 750 mg PO Q4H PRN PRN Reason: Heartburn Ceftriaxone Sodium (Ceftriaxone Sodium 1 Gm Vial) 1 gm IVPUSH Q24H [facility] Last Admin: 09/22/24 17:03 Dose: 1 gm Clopidogrel Bisulfate (Clopidogrel Bisulfate 75 Mg Tablet) 75 mg PO DAILY [facility] Last Admin: 09/22/24 10:37 Dose: 75 mg Cyclobenzaprine HCl (Cyclobenzaprine Hcl 10 Mg Tablet) 10 mg PO DAILY PRN PRN Reason: muscle spasms Last Admin: 09/22/24 10:37 Dose: 10 mg Enoxaparin Sodium (Enoxaparin Sodium 40 Mg/0.4 Ml Syringe) 40 mg SUBCUT Q24H [facility] Last Admin: 09/22/24 10:38 Dose: 40 mg Fluticasone Propionate (Fluticasone Propionate Nasal 16 Gm [place]) 1 spray NOSTRIL-B Q12H PRN PRN Reason: allergies Fluticasone/Umeclidinium/Vilanterol (Fluticasone/Umeclidinium/Vilanterol 100/62.5/25 Blst.W.Dev) 1 puff INHALE RDAILY [facility] Levalbuterol HCl (Levalbuterol Hcl 1.25 Mg/3 Ml Vial.Neb) 1.25 mg INHALE TID PRN PRN Reason: shortness of breath or wheezing Magnesium Hydroxide (Milk Of Magnesia 30 Ml Oral.Susp) 30 ml PO DAILY PRN PRN Reason: Constipation Last Admin: 09/22/24 10:38 Dose: 30 ml Magnesium Hydroxide (Milk Of Magnesia 30 Ml Oral.Susp) 30 ml PO DAILY PRN PRN Reason: No Bm for three days Melatonin (Melatonin 3 Mg Tablet) 6 mg PO BEDTIME PRN PRN Reason: Insomnia Metoprolol Tartrate (Metoprolol Tartrate 12.5 Mg Halftab) 12.5 mg PO BID [facility]; Protocol Nicotine (Nicotine 7 Mg Patch.Td24) 7 mg TRANSDERMA DAILY [facility] Olanzapine (Olanzapine 5 Mg Tablet) 5 mg PO BID [facility] Ondansetron HCl (Ondansetron Hcl 4 Mg/2 Ml Vial) 4 mg IVPUSH Q8H PRN PRN Reason: Nausea and Vomiting Oxycodone HCl (Oxycodone Hcl Immed Release 5 Mg Tablet) 5 mg PO Q6H PRN PRN Reason: Pain, Moderate(Pain Scale 4-6) Last Admin: 09/22/24 17:12 Dose: 5 mg Pantoprazole Sodium (Pantoprazole Sodium 20 Mg Tablet.Dr) 40 mg PO DAILY@629 [facility] Roflumilast (Roflumilast 500 Mcg Tablet) 500 mcg PO DAILY [facility] Sertraline HCl (Sertraline Hcl 50 Mg Tablet) 50 mg PO DAILY [facility] Last Admin: 09/22/24 10:37 Dose: 50 mg Sodium Chloride (0.9 % Sodium Chloride Flush 3 Ml Syringe) 3 ml IVFLUSH QSHIFT [facility] Last Admin: 09/22/24 15:26 Dose: 3 ml Trazodone HCl (Trazodone Hcl 50 Mg Tablet) 50 mg PO BEDTIME PRN PRN Reason: Insomnia Home Medications ?Medication ?Instructions ?Recorded ?Confirmed ?Last Taken ?Type [id number] 1 cap PO Q24H PRN Headache 11/15/22 09/22/24 Unknown History 50 mg-300 mg-40 mg capsule erenumab-aooe 140 mg/mL 140 mg subcut Q28D 11/15/22 09/22/24 1 Week Ago History subcutaneous auto-injector ~06/30/24 (Aimovig Autoinjector) esomeprazole magnesium 40 mg 40 mg PO DAILY@0630 11/15/22 09/22/24 09/21/24 History capsule,delayed release fluticasone propionate 50 1 spray intranasal Q12H PRN 11/15/22 09/22/24 2 Days Ago History mcg/actuation nasal allergies ~11/13/22 spray,suspension immun glob G 10 50 ml subcut MCKENZIE@0900 11/15/22 09/22/24 09/20/24 History gram/50mL(20%)-gly-IgA over 50 mcg/mL subcutaneous suzanna (Cuvitru) ocrelizumab 30 mg/mL intravenous 600 mg IV [id number] 11/15/22 09/22/24 09/21/24 History solution roflumilast 500 mcg tablet 500 mcg PO DAILY 07/07/24 09/22/24 09/21/24 History bisacodyl 10 mg rectal suppository 10 mg HI NEEDED PRN step 2 if 08/20/24 09/22/24 Unknown History no BM 8 hours after MOM magnesium hydroxide 400 mg/5 mL 30 ml PO NEEDED PRN No Bm for 08/20/24 09/22/24 Unknown History oral suspension (Milk of Magnesia) three days ondansetron HCl 4 mg tablet 4 mg PO Q8H PRN nausea/vomitting 08/20/24 09/22/24 Unknown History oxycodone-acetaminophen 10 mg-325 1 tab PO Q4-6H 09/21/24 09/22/24 09/21/24 History mg tablet fluticasone fur. 100 mcg-umeclid 1 ea inhalation DAILY 09/22/24 09/22/24 09/21/24 History 62.5 mcg-vilant 25 mcg inhalat.powder (Trelegy Ellipta) nystatin 100,000 unit/mL oral 400,000 unit PO QID PRN Rash 09/22/24 09/22/24 Unknown History suspension Physical Exam 2 Vital Signs: Vital Signs: Last Vital Signs Temp 99.0 F 09/22/24 15:26 Pulse 91 09/22/24 15:26 Resp 18 09/22/24 15:26 BP 133/61 09/22/24 15:26 Pulse Ox 94 09/22/24 15:26 O2 Del Method Nasal Cannula 09/22/24 15:26 O2 Flow Rate 2 09/22/24 15:26 BMI result Body Mass Index 21.7 Neuro: Other: Alert, not sure of date or month. Follow commands. Non focal exam Results Labs 09/22/24 04:54 09/22/24 04:54 Labs: Short CBC 09/21/24 09/22/24 Range/Units 21:41 04:54 WBC 9.5 9.6 (4.8-10.8) X10*3/uL Hgb 9.5 L 8.9 L (12.0-16.0) g/dl Hct 29.5 L 28.0 L (37.0-47.0) % Plt Count 404 H 377 (160-400) X10*3/uL BMP 09/21/24 09/22/24 21:41 04:54 Sodium 140 140 Potassium 4.9 D 4.3 Chloride 107 108 Carbon Dioxide 26 26 BUN 14 15 Creatinine 1.06 0.86 Calcium 8.8 8.6 Urine 09/22/24 Range/Units 04:18 Urine Color Yellow Urine Appearance Cloudy Urine pH 5.5 (5.0-9.0) Ur Specific [place] >= 1.030 H (1.005-1.025) Urine Protein Trace (Neg-Trace) mg/dL Urine Glucose (UA) Negative (Negative) mg/dL Assessment and Plan (1) UTI (urinary tract infection): Status: Acute UTI with some encephalopthy and confusion. Stable MRI with microvacsular disease Recom: Treat UTI and observation Procedures Date of Service Date of Service: 09/22/24
[2024-09-22] MEDS: Metoprolol Tartrate 12.5 MG HALFTAB PO (20:07)
[2024-09-22] MEDS: OLANZapine 5 MG TABLET PO (20:07)
[2024-09-22] MEDS: Atorvastatin Calcium 20 MG TABLET PO (20:07)
[2024-09-23] VITALS (11 sets, daily range): BP systolic 139–157; BP diastolic 67–86; PULSE 97–106; RESP 17–20; TEMP 36.1–37.6; O2SAT 97–100
[2024-09-23] MEDS: Cyclobenzaprine HCl 10 MG TABLET PO (04:10)
[2024-09-23] MEDS: Acetaminophen 325 MG TABLET 975 MG PO ×2 (04:27→14:08)
[2024-09-23] MEDS: Pantoprazole Sodium 20 MG TABLET.DR 40 MG PO (04:30)
[2024-09-23 06:29] LABS: MANUAL DIFF FLAG NO
[2024-09-23 06:36] LABS: Basophils Percent Auto 0.4 % (0-2); Eosinophils Absolute Auto 0.2 X10*3/uL (0.0-0.4); Eosinophils Percent Auto 1.8 % (0-4); Hematocrit 28.9 % (37.0-47.0); Hemoglobin 9.5 g/dl (12.0-16.0); Imm Gran Abs Auto 0.06 X10*3/uL (0.00-0.03); Imm Gran Pct Auto 0.6 % (0.0-0.4); Lymphocytes Absolute Auto 1.4 X10*3/uL (1.2-4.9); Lymphocytes Percent Auto 12.7 % (20-40); Mean Corpuscular HGB Conc 32.9 g/dl (31.0-35.0); Mean Corpuscular Hemoglobin 27.9 pg (27.0-33.0); Mean Corpuscular Volume 84.8 fL (80.0-98.0); Mean Platelet Volume 9.6 fL (9.4-12.3); Monocytes Absolute Auto 0.9 X10*3/uL (0.1-1.2); Monocytes Percent Auto 8.3 % (2-11); Neutrophils Absolute Auto 8.3 x10*3/uL (2.0-8.3); Neutrophils Percent Auto 76.2 % (45-73); Platelet Count 400 X10*3/uL (160-400); Red Blood Count 3.41 X10*6/uL (4.20-5.50); Red Cell Distribution Width 14.1 % (11.0-16.0); White Blood Count 10.9 X10*3/uL (4.8-10.8)
[2024-09-23 06:48] LABS: Anion Gap 13 (12-20); Blood Urea Nitrogen 8 mg/dL (9-16); Carbon Dioxide 27 mmol/L (22-29); Chloride 104 mmol/L (96-108); Creatinine Clr Calc Pharmacy 56.4; Estimated Glomerular Filt Rate > 60; Glucose Random 114 mg/dL (60-115); Sodium 140 mmol/L (135-145)
[2024-09-23 06:49] LABS: Anion Gap 13 (12-20); Blood Urea Nitrogen 8 mg/dL (9-16); Carbon Dioxide 26 mmol/L (22-29); Chloride 104 mmol/L (96-108); Creatinine Clr Calc Pharmacy 58.1; Estimated Glomerular Filt Rate > 60; Glucose Random 115 mg/dL (60-115); Potassium 3.9 mmol/L (3.3-5.1); Sodium 139 mmol/L (135-145)
[2024-09-23] MEDS: Clopidogrel Bisulfate 75 MG TABLET PO (08:30)
[2024-09-23] MEDS: oxyCODONE HCl Immed Release 5 MG TABLET PO ×2 (08:30→14:58)
[2024-09-23] MEDS: Roflumilast 500 MCG TABLET PO (08:30)
[2024-09-23] MEDS: Metoprolol Tartrate 12.5 MG HALFTAB PO (08:31)
[2024-09-23] MEDS: Sertraline HCL 50 MG TABLET PO (08:31)
[2024-09-23] MEDS: Aspirin Enteric Coated 81 MG TABLET.DR PO (08:31)
[2024-09-23] MEDS: OLANZapine 5 MG TABLET PO ×2 (08:31→20:12)
[2024-09-23] MEDS: Nicotine 7 MG PATCH.TD24 TRANSDERMA (08:31)
[2024-09-23] MEDS: Enoxaparin Sodium 40 MG/0.4 ML SYRINGE SUBCUT (08:31)
[2024-09-23] MEDS: 0.9 % Sodium Chloride Flush 3 ML SYRINGE IVFLUSH ×3 (08:35→20:15)
[2024-09-23] MEDS: Gabapentin 100 MG CAPSULE PO ×2 (11:09→20:12)
[2024-09-23] MEDS: Fluticasone/Umeclidinium/Vilanterol 100/62.5/25 BLST.W.DEV 1 PUFF INHALE (11:53)
--- NOTE | 2024-09-23 12:39 | P.PNIM_ITS ---
Subjective Subjective Date of Service: 09/23/24 Interval History: Seen and evaluated this morning Feels better overall no more speech abnormalities BP elevated this morning Pending cultures no other events Review of Systems Review of Systems: Yes all other systems are reviewed and are negative Physical Exam 2 Vital Signs: Vital Signs: Last Vital Signs Temp 97.5 F 09/23/24 11:09 Pulse 101 H 09/23/24 11:55 Resp 18 09/23/24 11:55 BP 150/69 H 09/23/24 11:09 Pulse Ox 99 09/23/24 11:09 O2 Del Method Nasal Cannula 09/23/24 11:09 O2 Flow Rate 3 09/23/24 11:09 BMI result Body Mass Index 21.7 Const: Other: Constitutional : Awake, interactive, not in distress Neck : Normal inspection, Supple Cardiovascular : RRR, no JVP, no lower extremity edema Respiratory : good bilateral air entry, no crackles, wheezes or rhonchi Gastrointestinal: soft, lax, Normal bowel sounds, Non tender Skin : Warm, Dry Neurological : Alert & oriented x3, No focal deficit Objective Data Active Medications Acetaminophen (Acetaminophen 325 Mg Tablet) 975 mg PO Q6H PRN PRN Reason: Pain, Mild 1-3,fever,headache Last Admin: 09/23/24 04:27 Dose: 975 mg Documented By: MANOLO Acetaminophen/Butalbital/Caffeine (Butalb/Acetamin/Caff 50/325/40 Tablet) 1 tab PO Q24H PRN PRN Reason: Headache Albuterol/Ipratropium (Albuterol/Iprat 2.5/0.5mg 3 Ml Ampul.Neb) 3 ml INHALE QID PRN PRN Reason: wheezing Aspirin (Aspirin Enteric Coated 81 Mg Tablet.) 81 mg PO DAILY [facility] Last Admin: 09/23/24 08:31 Dose: 81 mg Documented By: MAU Atorvastatin Calcium (Atorvastatin Calcium 20 Mg Tablet) 20 mg PO BEDTIME [facility] Last Admin: 09/22/24 20:07 Dose: 20 mg Documented By: MANOLO Bisacodyl (Bisacodyl 10 Mg Supp.Rect) 10 mg [place] Q24H PRN PRN Reason: step 2 if no BM 8 hours after MOM Calcium Carbonate (Calcium Carbonate 750 Mg Tab.Chew) 750 mg PO Q4H PRN PRN Reason: Heartburn Ceftriaxone Sodium (Ceftriaxone Sodium 1 Gm Vial) 1 gm IVPUSH Q24H [facility] Last Admin: 09/22/24 17:03 Dose: 1 gm Documented By: EDIS Clopidogrel Bisulfate (Clopidogrel Bisulfate 75 Mg Tablet) 75 mg PO DAILY [facility] Last Admin: 09/23/24 08:30 Dose: 75 mg Documented By: MAU Cyclobenzaprine HCl (Cyclobenzaprine Hcl 10 Mg Tablet) 10 mg PO DAILY PRN PRN Reason: muscle spasms Last Admin: 09/23/24 04:10 Dose: 10 mg Documented By: MANOLO Enoxaparin Sodium (Enoxaparin Sodium 40 Mg/0.4 Ml Syringe) 40 mg SUBCUT Q24H [facility] Last Admin: 09/23/24 08:31 Dose: 40 mg Documented By: MAU Fluticasone Propionate (Fluticasone Propionate Nasal 16 Gm [place]) 1 spray NOSTRIL-B Q12H PRN PRN Reason: allergies Fluticasone/Umeclidinium/Vilanterol (Fluticasone/Umeclidinium/Vilanterol 100/62.5/25 Blst.W.Dev) 1 puff INHALE RDAILY [facility] Last Admin: 09/23/24 11:53 Dose: 1 puff Documented By: LAURA Gabapentin (Gabapentin 100 Mg Capsule) 100 mg PO BID [facility] Last Admin: 09/23/24 11:09 Dose: 100 mg Documented By: MAU Levalbuterol HCl (Levalbuterol Hcl 1.25 Mg/3 Ml Vial.Neb) 1.25 mg INHALE TID PRN PRN Reason: shortness of breath or wheezing Magnesium Hydroxide (Milk Of Magnesia 30 Ml Oral.Susp) 30 ml PO DAILY PRN PRN Reason: Constipation Last Admin: 09/22/24 10:38 Dose: 30 ml Documented By: WALDEMAR Magnesium Hydroxide (Milk Of Magnesia 30 Ml Oral.Susp) 30 ml PO DAILY PRN PRN Reason: No Bm for three days Melatonin (Melatonin 3 Mg Tablet) 6 mg PO BEDTIME PRN PRN Reason: Insomnia Metoprolol Tartrate (Metoprolol Tartrate 12.5 Mg Halftab) 12.5 mg PO BID [facility]; Protocol Last Admin: 09/23/24 08:31 Dose: 12.5 mg Documented By: MAU Nicotine (Nicotine 7 Mg Patch.Td24) 7 mg TRANSDERMA DAILY [facility] Last Admin: 09/23/24 08:31 Dose: 7 mg Documented By: MAU Olanzapine (Olanzapine 5 Mg Tablet) 5 mg PO BID [facility] Last Admin: 09/23/24 08:31 Dose: 5 mg Documented By: MAU Ondansetron HCl (Ondansetron Hcl 4 Mg/2 Ml Vial) 4 mg IVPUSH Q8H PRN PRN Reason: Nausea and Vomiting Oxycodone HCl (Oxycodone Hcl Immed Release 5 Mg Tablet) 5 mg PO Q6H PRN PRN Reason: Pain, Moderate(Pain Scale 4-6) Last Admin: 09/23/24 08:30 Dose: 5 mg Documented By: MAU Pantoprazole Sodium (Pantoprazole Sodium 20 Mg Tablet.Dr) 40 mg PO DAILY@0630 [facility] Last Admin: 09/23/24 04:30 Dose: 40 mg Documented By: MANOLO Comments: per pt request given early Roflumilast (Roflumilast 500 Mcg Tablet) 500 mcg PO DAILY [facility] Last Admin: 09/23/24 08:30 Dose: 500 mcg Documented By: MAU Sertraline HCl (Sertraline Hcl 50 Mg Tablet) 50 mg PO DAILY [facility] Last Admin: 09/23/24 08:31 Dose: 50 mg Documented By: MAU Sodium Chloride (0.9 % Sodium Chloride Flush 3 Ml Syringe) 3 ml IVFLUSH QSHIFT [facility] Last Admin: 09/23/24 08:35 Dose: 3 ml Documented By: MAU Trazodone HCl (Trazodone Hcl 50 Mg Tablet) 50 mg PO BEDTIME PRN PRN Reason: Insomnia Labs 09/23/24 05:48 09/23/24 05:48 Labs: Laboratory Results - last 24 hr 09/23/24 09/23/24 09/23/24 05:48 05:48 05:48 MCV 84.8 MCH 27.9 MCHC 32.9 RDW 14.1 Plt Count 400 MPV 9.6 Immature Gran % (Auto) 0.6 H Neut % (Auto) 76.2 H Lymph % (Auto) 12.7 L [place] % (Auto) 8.3 Eos % (Auto) 1.8 Baso % (Auto) 0.4 Lymph # (Auto) 1.4 [place] # (Auto) 0.9 Eos # (Auto) 0.2 Baso # (Auto) 0.0 Abs Immat Gran (auto) 0.06 H Absolute Neuts (auto) 8.3 Absolute Nucleated RBC 0.000 Nucleated RBC % (auto) 0.0 Anion Gap 13 13 Estim Creat Clear Calc 56.4 58.1 Estimated GFR > 60 Random Glucose Calcium 09/23/24 09/23/24 09/23/24 05:48 05:48 05:48 MCV MCH MCHC RDW Plt Count MPV Immature Gran % (Auto) Neut % (Auto) Lymph % (Auto) [place] % (Auto) Eos % (Auto) Baso % (Auto) Lymph # (Auto) [place] # (Auto) Eos # (Auto) Baso # (Auto) Abs Immat Gran (auto) Absolute Neuts (auto) Absolute Nucleated RBC Nucleated RBC % (auto) Anion Gap Estim Creat Clear Calc Estimated GFR > 60 Random Glucose 114 115 Calcium 9.0 9.0 Microbiology Microbiology Results: Microbiology 09/22/24 Unknown Urine Culture - Preliminary Urine clean catch - Clean Catch Midstream Gram negative umesh Assessment and Plan (1) UTI (urinary tract infection): Status: Acute (2) Toxic metabolic encephalopathy: Status: Acute (3) Hypotension: Status: Acute (4) Slurred speech: Status: Acute Plan Pt is a 73 yo f with a pmhx significant for chronic hypoxemic respiratory failure due to COPD on 2 L baseline supplemental oxygen at home, mood disorder, hypertension, chronic opiate use, MS, tobacco use presented to the emergency department as a stroke protocol, as patient noted by her family had garbled speech since noon. SLurred speech, weakness reported dysarthria and left sided weakness CT head/CTA head/neck and MR brain negative for acute CVA passed bedside swallow neurology consult, likely infection related PT/OT/speech evaluation Continue statin and plavix and DC Aspirin monitor on tele Acute metabolic encephalopathy 2/2 UTI Pending cultures Continue Ceftriaxone Restless leg\Lower extremity neuropathy Start 100 mg Gabapentin bid HTN Hypotensive on admission, All held but BP went up Restart Metoprolol and Amlodipine DC Losartan at time of discharge if BP ok chronic anemia H+ H stable. no need for blood transfusion monitor CBC chronic respiratory failure/COPD unspecified no acute exacerbation continue home meds/O2 2L via NC mood disorder continue home meds chronic opiate use continue oxycodone PRN avoid morphine as there were concerns during last admission for hallucinations with it MS continue home meds full code VTE prophy: lovenox Patient UTI, requiring overnight stay for IV antibiotics pending final cultures and BP monitoring Quality Stroke Does the patient have a stroke diagnosis?: No VTE Prior VTE?: No VTE Risk Level:: Medical - moderate - high VTE Device Contraindication: Treatment Not Indicated VTE Drug Contraindication: N/A - Med Ordered
[2024-09-23] MEDS: amLODIPine Besylate 5 MG TABLET PO (14:08)
[2024-09-23] MEDS: LORazepam 0.5 MG TABLET 0.25 MG PO (14:57)
--- NOTE | 2024-09-23 15:03 | MHC.SLORD ---
Speech Language Pathology Order Status: Pt seen for dysphagia treatment but politely declined PO during visit. Pt endorsed no difficulties with regular solids and was drinking Pepsi with adequate coordination. Pt to be seen for followup x1, no concerns at this time for elevated risk of aspiration.
--- NOTE | 2024-09-23 15:04 | MHC.CM.PN ---
Per rounds, pt. is not ready to DC, anticipate DC tomorrow, she wll resume her home care services [facility].
[2024-09-23] MEDS: OLANZapine 10 MG VIAL 5 MG IM (16:18)
[2024-09-23] MEDS: cefTRIAXone sodium 1 GM VIAL IVPUSH (16:19)
[2024-09-23] MEDS: Atorvastatin Calcium 20 MG TABLET PO (20:12)
[2024-09-23] MEDS: Metoprolol Tartrate 25 MG TABLET PO (20:12)
[2024-09-24 04:00] VITALS: BP 125/72; PULSE 75; RESP 18; TEMP 36.1; O2SAT 94
[2024-09-24] MEDS: Pantoprazole Sodium 20 MG TABLET.DR 40 MG PO (05:35)
[2024-09-24 06:30] LABS: MANUAL DIFF FLAG NO
[2024-09-24 06:34] LABS: Basophils Percent Auto 0.3 % (0-2); Eosinophils Absolute Auto 0.1 X10*3/uL (0.0-0.4); Eosinophils Percent Auto 1.2 % (0-4); Hemoglobin 9.6 g/dl (12.0-16.0); Imm Gran Abs Auto 0.05 X10*3/uL (0.00-0.03); Imm Gran Pct Auto 0.4 % (0.0-0.4); Lymphocytes Absolute Auto 1.6 X10*3/uL (1.2-4.9); Lymphocytes Percent Auto 13.8 % (20-40); Mean Corpuscular Hemoglobin 27.3 pg (27.0-33.0); Mean Corpuscular Volume 85.2 fL (80.0-98.0); Mean Platelet Volume 10.1 fL (9.4-12.3); Monocytes Absolute Auto 0.8 X10*3/uL (0.1-1.2); Monocytes Percent Auto 7.3 % (2-11); Neutrophils Absolute Auto 8.7 x10*3/uL (2.0-8.3); Platelet Count 393 X10*3/uL (160-400); Red Blood Count 3.52 X10*6/uL (4.20-5.50); Red Cell Distribution Width 14.2 % (11.0-16.0); White Blood Count 11.3 X10*3/uL (4.8-10.8)
[2024-09-24 06:49] LABS: Anion Gap 13 (12-20); Blood Urea Nitrogen 7 mg/dL (9-16); Calcium 9.1 mg/dL (8.4-10.2); Carbon Dioxide 27 mmol/L (22-29); Chloride 105 mmol/L (96-108); Creatinine Clr Calc Pharmacy 57.2; Estimated Glomerular Filt Rate > 60; Glucose Random 128 mg/dL (60-115); Potassium 3.6 mmol/L (3.3-5.1); Sodium 141 mmol/L (135-145)
[2024-09-24 06:57] VITALS: BP 140/79; PULSE 102; RESP 15; TEMP 36.6; O2SAT 100
[2024-09-24] MEDS: Fluticasone/Umeclidinium/Vilanterol 100/62.5/25 BLST.W.DEV 1 PUFF INHALE (08:39)
[2024-09-24 08:41] VITALS: PULSE 113; RESP 16; O2SAT 98
[2024-09-24] MEDS: Nicotine 7 MG PATCH.TD24 TRANSDERMA (08:50)
[2024-09-24] MEDS: Enoxaparin Sodium 40 MG/0.4 ML SYRINGE SUBCUT (08:50)
[2024-09-24 08:51] VITALS: BP 140/79; PULSE 113
[2024-09-24] MEDS: Ciprofloxacin Lactate/D5W 400 MG/200 ML PIGGYBACK 200 MG IV (08:51)
[2024-09-24] MEDS: 0.9 % Sodium Chloride Flush 3 ML SYRINGE IVFLUSH (08:51)
[2024-09-24] MEDS: OLANZapine 5 MG TABLET PO (08:51)
[2024-09-24] MEDS: Sertraline HCL 50 MG TABLET PO (08:51)
[2024-09-24] MEDS: Gabapentin 100 MG CAPSULE PO (08:51)
[2024-09-24] MEDS: amLODIPine Besylate 5 MG TABLET PO (08:51)
[2024-09-24] MEDS: Clopidogrel Bisulfate 75 MG TABLET PO (08:51)
[2024-09-24] MEDS: Roflumilast 500 MCG TABLET PO (08:51)
[2024-09-24] MEDS: Metoprolol Tartrate 25 MG TABLET PO (08:51)
[2024-09-24] MEDS: Cyclobenzaprine HCl 10 MG TABLET PO (09:03)
[2024-09-24 09:43] LABS: Anion Gap 12 (12-20); Blood Urea Nitrogen 6 mg/dL (9-16); Calcium 9.4 mg/dL (8.4-10.2); Carbon Dioxide 28 mmol/L (22-29); Chloride 104 mmol/L (96-108); Creatinine Clr Calc Pharmacy 58.1; Estimated Glomerular Filt Rate > 60; Glucose Random 141 mg/dL (60-115); Potassium 3.8 mmol/L (3.3-5.1); Sodium 140 mmol/L (135-145)
[2024-09-24 09:53] VITALS: BP 140/79; PULSE 113
--- NOTE | 2024-09-24 10:18 | PM.DS ---
DS: Providers Provider Date of Service: 09/24/24 Date of admission: 09/21/24 23:01 Date of discharge: 09/24/24 Primary care physician: Sushil Stewart MD Consults: 09/21/24 23:13 Consult to Neurology Routine Consulting Provider: [facility] Reason for consultation: CVA Has provider been notified: No DS: Diagnosis Discharge Diagnosis (1) UTI (urinary tract infection): Status: Acute (2) Toxic metabolic encephalopathy: Status: Acute (3) Hypotension: Status: Acute (4) Slurred speech: Status: Acute DS: Summary Hospital Course Hospital Course: Admission note HPI Pt is a 73 yo f with a pmhx significant for chronic hypoxemic respiratory failure due to COPD on 2 L baseline supplemental oxygen at home, mood disorder, hypertension, chronic opiate use, MS, tobacco use presented to the emergency department as a stroke protocol, as patient noted by her family had garbled speech since noon. she stated that she was not feeling well and took a nap. when she woke she had issues with balance and states that she felt unsteady and has had slurred speech, which is not her baseline. her granddaughter (nurse here) checked on her and she was found to have very low BP ?60s systolic, which has since normalized. the pt also reports a headache, and denies and URI sx or urinary sx. no recent illness or GI issues either. Hospital course The patient was admitted for evaluation of Slurred speech with reported dysarthria and left sided weakness. CT head/CTA head/neck and MR brain negative for acute CVA. passed bedside swallow. neurology consulted and felt it is likely infection related. PT/OT/speech evaluated the patient. Kept her on statin and plavix. She was started on Aspirin then discontinued. She was in acute metabolic encephalopathy likely UTI related. Treated with Ceftriaxone primary but then urine cultures grew sensitive Pseuodomonas. Started on Cipro IV and will be discharged on Levofloxacin 500 mg daily. Mentation improved back to baseline. she became delirious for brief episode requiring IM Zyprexa. For history of Restless leg\Lower extremity neuropathy. Started on 100 mg Gabapentin bid but will discontinue as it did not help much and likely her symptoms were related to anxiety and delerium. For HTN she was noted to be Hypotensive on admission, All held but BP went up so she was Restarted on Metoprolol and Amlodipine. Losartan held by time of discharge and will be monitored at home and follow with PCP for further adjustment of her medications. Discharge plan Levofloxacin for 1 week Nystatin 4 ml four times a day while on antibiotics Increase physical activity as tolerated Hold Losartan and monitor blood pressure at home before restarting Time Attestation Discharge Coordination Time (in mins): 35 Quality: Safe Use of Opioids Does Pt have an Active Cancer Diagnosis on the Problem List?: No Quality: Stroke Does the patient have a stroke diagnosis?: No Physical Exam Vital Signs: Vital Signs: Last Vital Signs Temp 97.8 F 09/24/24 06:57 Pulse 113 H 09/24/24 09:53 Resp 16 09/24/24 08:41 BP 140/79 H 09/24/24 09:53 Pulse Ox 100 09/24/24 06:57 O2 Del Method Nasal Cannula 09/24/24 06:57 O2 Flow Rate 2 09/24/24 06:57 BMI result Body Mass Index 21.7 Const: Other: Constitutional : Awake, interactive, not in distress Neck : Normal inspection, Supple Cardiovascular : RRR, no JVP, no lower extremity edema Respiratory : good bilateral air entry, no crackles, wheezes or rhonchi Gastrointestinal: soft, lax, Normal bowel sounds, Non tender Skin : Warm, Dry Neurological : Alert & oriented x3, No focal deficit DS: Data Data Completed and Pending Completed studies during hospitalization [Text1]: Procedures Assistance with Respiratory Ventilation, Less than 24 Consecutive Hours, Continuous Positive Airway Pressure (08/27/23) Introduction of Remdesivir Anti-infective into Peripheral Vein, Percutaneous Approach, [employer] 5 (08/27/23) Reposition Left Upper Femur with Internal Fixation Device, Percutaneous Approach (07/07/24) Labs on day of discharge: Laboratory Results - last 24 hr 09/24/24 09/24/24 05:18 08:43 WBC 11.3 H RBC 3.52 L Hgb 9.6 L Hct 30.0 L MCV 85.2 MCH 27.3 MCHC 32.0 RDW 14.2 Plt Count 393 MPV 10.1 Immature Gran % (Auto) 0.4 Neut % (Auto) 77.0 H Lymph % (Auto) 13.8 L [place]in[place] % (Auto) 7.3 Eos % (Auto) 1.2 Baso % (Auto) 0.3 Lymph # (Auto) 1.6 [place] # (Auto) 0.8 Eos # (Auto) 0.1 Baso # (Auto) 0.0 Abs Immat Gran (auto) 0.05 H Absolute Neuts (auto) 8.7 H Absolute Nucleated RBC 0.000 Nucleated RBC % (auto) 0.0 Hold Purple Top SEE NOTE Sodium 141 140 Potassium 3.6 3.8 Chloride 105 104 Carbon Dioxide 27 28 Anion Gap 13 12 BUN 7 L 6 L Creatinine 0.66 0.65 Estim Creat Clear Calc 57.2 58.1 Estimated GFR > 60 > 60 Random Glucose 128 H 141 H Calcium 9.1 9.4 Imaging Chest x-ray: Radiologist's impression: ITS Impressions Brain MRI 09/22/24 12:15 IMPRESSION: 1. No evidence of acute infarction, intracranial hemorrhage, mass effect, or edema. 2. 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 3. There are numerous stable bilateral scattered foci of punctate and minimally confluent white matter T2 hyperintensity in the supratentorial periventricular, subcortical, and hemispheric deep white matter, and central lula. No distribution or morphology specific to demyelinating disease. These findings statistically most likely relate to small vessel ischemic changes. Electronically signed by: Kee Gongora MD 09/22/2024 01:14 PM EDT RP Discharge Plan Discharge Anticipated Discharge Date/Time: 09/24/24 10:11 Patient Disposition: Home Health Service Discharge Diagnosis: Urine infection Encephalopathy Referrals: [facility] [Outside] - 1 Week Sushil Stewart MD [Primary Care Provider] - 09/30/24 10:15 am (You have a follow up appointment scheduled. If you can not make this appointment call the office to reschedule. ) Discharge Medications: New levofloxacin 500 mg tablet 500 mg PO Q24H Qty: 7 0RF Continued esomeprazole magnesium 40 mg capsule,delayed release(DR/EC) 40 mg PO DAILY@0630 fluticasone propionate 50 mcg/actuation spray,suspension 1 spray intranasal Q12H PRN (Reason: allergies) boalcphdkm-etvqjssoasoro-iapl 50-300-40 mg capsule 1 cap PO Q24H PRN (Reason: Headache) Aimovig Autoinjector 140 mg/mL auto-injector 140 mg subcut Q28D Patient Comments: due 08/21 Cuvitru 10 gram/50 mL (20 %) solution 50 ml subcut MCKENZIE@0900 Patient Comments: last dose 08/16/24? ocrelizumab 30 mg/mL Solution 600 mg IV [id number] roflumilast 500 mcg tablet 500 mcg PO DAILY ondansetron HCl 4 mg Tablet 4 mg PO Q8H PRN (Reason: nausea/vomitting) magnesium hydroxide [Milk of Magnesia] 400 mg/5 mL Suspension 30 ml PO NEEDED PRN (Reason: No Bm for three days) bisacodyl 10 mg Suppository 10 mg MN NEEDED PRN (Reason: step 2 if no BM 8 hours after MOM ) cyclobenzaprine 10 mg Tablet 10 mg PO DAILY PRN (Reason: muscle spasms) Qty: 30 0RF ipratropium-albuterol 0.5 mg-3 mg(2.5 mg base)/3 mL Solution For Nebulization 3 ml inhalation QID PRN (Reason: wheezing) Qty: 90 0RF levalbuterol HCl 1.25 mg/0.5 mL solution for nebulization 1.25 mg inhalation TID PRN (Reason: shortness of breath or wheezing) Qty: 30 0RF Rx Instructions: must dilute for administration olanzapine 5 mg Tablet 5 mg PO BID Qty: 60 0RF clopidogrel 75 mg Tablet 75 mg PO DAILY Qty: 30 0RF amlodipine 5 mg Tablet 5 mg PO DAILY Qty: 30 0RF Protocol: Hold for SBP< HOLD for SBP < : 90 aspirin 81 mg Tablet,Delayed Release (Dr/Ec) 81 mg PO DAILY Qty: 30 0RF sertraline 50 mg Tablet 50 mg PO DAILY Qty: 30 0RF nicotine 7 mg/24 hr Patch 24 Hour 7 mg transdermal DAILY Qty: 30 0RF metoprolol tartrate 25 mg Tablet 25 mg PO BID Qty: 60 0RF Protocol: Hold for SBP/HR < HOLD for SBP < : 90 HOLD for HR < : 60 trazodone 50 mg Tablet 50 mg PO BEDTIME PRN (Reason: Insomnia) Qty: 30 0RF rosuvastatin 40 mg tablet 40 mg PO BEDTIME Qty: 30 0RF cholecalciferol (vitamin D3) 50 mcg (2,000 unit) capsule 50 mcg PO DAILY Qty: 30 0RF oxycodone-acetaminophen 10-325 mg tablet 1 tab PO Q4-6H Trelegy Ellipta 100-62.5-25 mcg blister with device 1 ea inhalation DAILY nystatin 100,000 unit/mL suspension 400,000 unit PO QID 7 Days Qty: 112 0RF Held losartan 50 mg Tablet 50 mg PO BEDTIME Qty: 30 0RF Hold Instructions: Monitor blood pressure at home before restarting it Protocol: Hold for SBP< HOLD for SBP < : 90 Discharge Orders: Discharge Order (Routine); Ordered 09/24/24 Ordered By: Emi Hooker Diet: Advance to usual diet Activity on Discharge: As tolerated Stand Alone Forms: Patient Portal Discharge page Print Language: [place] Citizen Care Plan Goals: Levofloxacin for 1 week Nystatin 4 ml four times a day while on antibiotics Increase physical activity as tolerated Hold Losartan and monitor blood pressure at home before restarting Health Concerns: UTI Plan of Treatment: Levofloxacin Assessment: as above
--- NOTE | 2024-09-24 10:22 | MHC.CM.PN ---
Pt has been medically cleared, she will go home via family transport and [facility] with.
[2024-09-24] MEDS: Butalb/Acetamin/Caff 50/325/40 TABLET 1 TAB PO (10:50)
[2024-09-24] MEDS: Nystatin Oral Susp 500,000 UNIT/5 ML ORAL.SUSP 400000 UNIT BUCCAL (10:50)
[2024-09-24 11:02] VITALS: BP 145/67; PULSE 95; RESP 16; TEMP 36.4; O2SAT 100
--- NOTE | 2024-09-24 11:40 | MHC.SL.DTX ---
Dysphagia Diet modifications: Last documented Solid diet consistencies: Regular Last documented Liquid consistency: Thin Last documented Medication Administration: Whole with liquid Changes made to current diet?: Yes Liquid Consistency and Strategies: Liquid Intake Recommendation: Thin Compensatory Strategies for Safe Swallow: Small Sips Compensatory Strategies for Safe Swallow(b): Sitting Upright (90 deg) Small Bites and Sips Alternate Liquids/Solids Rate of Ingestion Change Solid Food Consistency: Dietary Recommendations: Regular Additional Modifications to Solids: Oral Medication Intake: Whole with Liquid Strategies and Precautions to be Taken for Safe Swallow: Sitting Upright (90 deg) Small Bites and Sips Alternate Liquids/Solids Rate of Ingestion Change Supervision While Eating and/Drinking: Intermittent Supervision Foods to Avoid: Patient says she avoids nuts when she does not have her dentures with her. Swallowing Recommended Treatments: Compens. Strategy Educat. Level of Impact on: Daily activities: Interpersonal interactions: Education: Employment: Community: Prognosis for Improvement: Recommendation for Speech: Inpatient Speech Therapy Comment: Patient presents with mild anomic aphasia and mild dysarthria. Frequency/Duration: Date Range for Service Req: Timeline to reassess: Additional Comments: Treatment: Patient seen for follow up speech/language screening. Patient seen yesterday for swallow evaluation with Regular/Thin recommended, which patient reports no difficulties with meals or drinks. Patient with can of Pepsi and straw at bedside, and was awake, alert and pleasantly interactive. Nasal cannula for supplemental O2 which is her baseline, was present. Patient was administered the BDAE short form, and occasionally commented I had difficulty with that last time but when queried could not explain where or when she might have had the test before. On the short form of the BNT, she named 12/15 items, with ones that were missed due to lack of knowledge of the item (e.g. That has something to do with ancient [place], but I don't know the name for Sphynx). She produced a simple narrative in response to the Cookie Theft picture without difficulty. On receptive language testing, she made occasional errors in all aspects of this testing (e.g. had occasional difficulties identifying line drawings receptively, appeared to be a perception issue; had mild difficulty processing longer, more complex paragraph length information). Patient's speech is markedly hypo nasal and mildly slurred. From previous admission notes, dysarthria noted is at baseline. Summary/Conclusion: Patient does not evidence aphasia, presents with mild dysarthria and mild signs of STM/Processing issues, both of which are likely baseline. Patient is tolerating least restrictive diet well. No further speech/language service indicated at this time, nor at next level of care. Recommend D/C speech service. MD notified by secure text. Assessment: [employer] Clinican/Clinical Fellow: No Supervisory Statement: I have reviewed and agree with the student/clinical fellow's documentation: N/A Speech Language Pathologist: Vonda Hoang M.A., CCC-SURGERY ASSISTANT
== END 2024-09-24 12:44 | disposition home health service (06) | DRG 689 ==
LOC: HO.ED 22:28 → HO.EDOVER 23:21 → HO.IMC 09-22 14:09
PROVIDERS: Admitting Provider Physician Assistant; Emergency Provider Emergency Medicine; PCP Internal Medicine; Visit Provider Student in an Organized Health Care Education/Training Program
DX: N39.0 Urinary tract infection, site not specified (principal); G93.41 Metabolic encephalopathy; J96.11 Chronic respiratory failure with hypoxia; F05 Delirium due to known physiological condition; I25.10 Atherosclerotic heart disease of native coronary artery without angina pectoris; D64.9 Anemia, unspecified; F39 Unspecified mood [affective] disorder; G25.81 Restless legs syndrome; B96.5 Pseudomonas (aeruginosa) (mallei) (pseudomallei) as the cause of diseases classified elsewhere; G35 Multiple sclerosis; J44.9 Chronic obstructive pulmonary disease, unspecified; F41.9 Anxiety disorder, unspecified; Z95.5 Presence of coronary angioplasty implant and graft; G62.9 Polyneuropathy, unspecified; I10 Essential (primary) hypertension; Z87.891 Personal history of nicotine dependence; Z99.81 Dependence on supplemental oxygen; Z79.02 Long term (current) use of antithrombotics/antiplatelets; Z79.82 Long term (current) use of aspirin; Z79.899 Other long term (current) drug therapy
CPT/HCPCS: 36415; 70450; 70496; 70498; 70551; 71045; 80048; 80061; 81001; 82947; 84484; 85025; 85027; 85610; 85730; 87086; 87088; 87186; 92610; 93005; 97110; 97116; 97162; 97166; 97530; 97535; 99285; J0696; J0744; J1650; J2359

== ENCOUNTER → 2024-09-21 21:32 | Outpatient (BNV) | payer MEDICARE, BC, SELFPAY | PROVIDERS: Emergency Provider Emergency Medicine; Visit Provider Radiology Diagnostic Radiology | DX: I63.9 Cerebral infarction, unspecified (principal); R47.01 Aphasia; J98.11 Atelectasis; J90 Pleural effusion, not elsewhere classified | CPT/HCPCS: 70450; 70496; 70498; 71045 ==

== ENCOUNTER → 2024-09-21 21:32 | Outpatient (BNV) | payer MEDICARE, BC, SELFPAY | PROVIDERS: Admitting Provider Physician Assistant; Emergency Provider Emergency Medicine; Visit Provider Internal Medicine Cardiovascular Disease | DX: I45.10 Unspecified right bundle-branch block (principal) | CPT/HCPCS: 93010 ==

== ENCOUNTER 2024-09-21 23:01 | Outpatient (BNV) | payer MEDICARE, BC, SELFPAY | END 2024-09-22 12:15 | PROVIDERS: Admitting Provider Physician Assistant; Emergency Provider Emergency Medicine; Visit Provider Radiology Diagnostic Radiology | DX: I63.9 Cerebral infarction, unspecified (principal) | CPT/HCPCS: 70551 ==

== ENCOUNTER → 2024-09-21 23:01 | Outpatient (BNV) | payer MEDICARE, BC, SELFPAY | PROVIDERS: Admitting Provider Physician Assistant; Emergency Provider Emergency Medicine; Visit Provider Student in an Organized Health Care Education/Training Program | DX: N39.0 Urinary tract infection, site not specified (principal); G92.8 Other toxic encephalopathy; I95.9 Hypotension, unspecified; R47.81 Slurred speech; I63.9 Cerebral infarction, unspecified; D64.9 Anemia, unspecified | CPT/HCPCS: 99223; 99233; 99239 ==

== ENCOUNTER → 2024-09-21 23:01 | Outpatient (BNV) | payer MEDICARE, BC, SELFPAY | PROVIDERS: Admitting Provider Physician Assistant; Emergency Provider Emergency Medicine; Visit Provider Psychiatry & Neurology Neurology | DX: G93.40 Encephalopathy, unspecified (principal); N39.0 Urinary tract infection, site not specified | CPT/HCPCS: 99222 ==

== ENCOUNTER 2024-10-22 09:56 | Outpatient (REF) | payer MEDICARE, BC, SELFPAY ==
--- NOTE | ~2024-10-22 | XR_ITS ---
EXAMINATION: XR FEMUR, LEFT CLINICAL INFORMATION: M79.606 - Pain in leg, unspecified COMPARISON: September 11, 2024. TECHNIQUE: AP and lateral views of the left femur were obtained. FINDINGS: 3 metallic screws through the left femoral head neck instability lesion within old subcapital fracture deformity. No acute cortical disruption. No gross loosening. No lytic or blastic lesions. Vascular calcifications. Chondrocalcinosis in the medial and lateral compartment of the knee with associated joint space narrowing. No suprapatellar bursa joint effusion. XR/XR femur LT 2V IMPRESSION: Old subcapital fracture left femur and status post open reduction internal fixation. No acute fracture. Atherosclerosis disease, peripheral. Consider CPPD, left knee. Electronically signed by: Vipul Morocho MD 10/22/2024 03:28 PM EDT
--- OUTSIDE RECORDS SUMMARY | 2024-10-27 10:47 | XMS_ITS | Encounter Summary ---
Author Organization [facility] Address [address] [place] [address] Care Team Providers Care Actuarial Science Teacher Name Role Phone Sushil Stewart MD Primary Care Provider [phone] Encounter Details Date Type Department Care Team (Late st Contact Info) Description 08/08/2024 Lab Requisition [facility] - Main Lab [address] [place] [address] Carmela Thomas MD [address] [phone] Heart failure, unspecified (CMS/HCC V24, CMS/HCC V28) [...] CHEMISTRY METHOD 08/10/2024 12:42 PM EST [facility] Potassium 3.3(L) 3.5 - 5.5 mmol/L LAB CHEMISTRY METHOD 08/10/2024 12:[address] [facility] Chloride 106 96 - 110 mmol/L LAB CHEMISTRY METHOD 08/10/2024 12:[address] [facility] CO2 29 21 - 32 mmol/L LAB CHEMISTRY METHOD 08/10/2024 12:[address] [facility] Anion Gap 9 3 - 11 LAB CHEMISTRY METHOD 08/10/2024 12:[address] [facility] Glucose 94 70 - 100 mg/dL LAB CHEMISTRY METHOD 08/10/2024 12:[address] [facility] BUN 18 5 - 25 mg/dL LAB CHEMISTRY METHOD 08/10/2024 12:[address] [facility] Creatinine 0.62 0.50 - 1.10 mg/dL LAB CHEMISTRY METHOD 08/10/2024 12:[address] [facility] eGFR 95 >=60 mL/min/1. 73m2 LAB CHEMISTRY METHOD 08/10/2024 12:[address] [facility] Comment:Calculation based on the??Chronic Kidney Disease Epidemiology Collaboration (CKD-EPI) equation refit??without adjustment for race. BUN/Creatinine Ratio 29.0 LAB CHEMISTRY METHOD 08/10/2024 12:[address] [facility] Calcium 9.2 8.5 - 10.5 mg/dL LAB CHEMISTRY METHOD 08/10/2024 12:[address] [facility] AST (SGOT) 38 10 - 42 unit/L LAB CHEMISTRY METHOD 08/10/2024 12:[address] [facility] ALT (SGPT) 68(H) 10 - 60 unit/L LAB CHEMISTRY METHOD 08/10/2024 12:[address] [facility] Alkaline Phosphatase 145(H) 42 - 121 unit/L LAB CHEMISTRY METHOD 08/10/2024 12:[address] [facility] Total Protein 5.8(L) 6.0 - 8.0 g/dL LAB CHEMISTRY METHOD 08/10/2024 12:[address] [facility] Albumin 2.7(L) 3.2 - 5.0 g/dL LAB CHEMISTRY METHOD 08/10/2024 12:[address] [facility] Total Bilirubin 0.3 0.0 - 1.4 mg/dL LAB CHEMISTRY METHOD 08/10/2024 12:[address] [facility] Blood Venous blood specimen / Unknown Venipuncture / Unknown 08/10/2024 8:28 AM EST 08/10/2024 11:20 AM EST Carmela Thomas MD LAB BLOOD ORDERABLES Fin al Result [facility] [address] [place] [address], * (ABNORMAL) Complete blood count (08/10/2024 8:28 AM EST) WBC 10.7 4.8 - 10.8 K/mcL LAB HEMETOLOGY METHOD 08/10/2024 1:[address] [facility] RBC 3.10(L) 3.80 - 4.80 M/mcL LAB HEMETOLOGY METHOD 08/10/2024 1:[address] [facility] Hemoglobin 9.3(L) 11.5 - 16.0 g/dL LAB HEMETOLOGY METHOD 08/10/2024 1:[address] [facility] Hematocrit 29.3(L) 35.0 - 47.0 % LAB HEMETOLOGY METHOD 08/10/2024 1:[address] [facility] MCV 95.8 79.0 - 98.0 FL LAB HEMETOLOGY METHOD 08/10/2024 1:[address] [facility] MCH 30.4 27.0 - 32.0 pcg LAB HEMETOLOGY METHOD 08/10/2024 1:20 PM EST [facility] MCHC 31.7(L) 32.0 - 37.0 g/dL LAB HEMETOLOGY METHOD 08/10/2024 1:20 PM EST [facility] RDW 14.2 11.0 - 15.0 % LAB HEMETOLOGY METHOD 08/10/2024 1:20 PM EST [facility] Platelets 280 130 - 400 K/mcL LAB HEMETOLOGY METHOD 08/10/2024 1:20 PM EST [facility] MPV 10.2 7.0 - 11.0 FL LAB HEMETOLOGY METHOD 08/10/2024 1:20 PM EST [facility] NRBC 0.0 <1.0 % LAB HEMETOLOGY METHOD 08/10/2024 1:[address] [facility] NRBC Absolute 0.00 <0.10 K/mcL LAB HEMETOLOGY METHOD 08/10/2024 1:[address] [facility] Blood Venous blood specimen / Unknown Venipuncture / Unknown 08/10/2024 8:28 AM EST 08/10/2024 11:21 AM EST us Carmela Thomas MD LAB BLOOD ORDERABLES Fin al Result [facility] [address] [place] [address], documented in this encounter Visit Diagnoses Diagnosis Heart failure, unspecified (CMS/HCC V24, CMS/HCC V28) Heart failure, unspecified documented in this encounter Care Teams Actuarial Science Teacher Relationship Specialty Start Date End Date Sushil Stewart MD [address] [place] [address] [address] [place], [place] PCP - General Internal Medicine 10/14/17 documented as of this encounter
--- OUTSIDE RECORDS SUMMARY | 2024-10-27 10:47 | XMS_ITS | Encounter Summary ---
Author Organization [facility] Address [address] [place] [address] Care Team Providers Care Wheel Installer Name Role Phone Sushil Stewart MD Primary Care Provider [phone] Encounter Details Date Type Department Care Team (Late st Contact Info) Description 07/27/2024 Lab Requisition [facility] - Main Lab [address] [place] [address] Carmela Thomas MD [address] [id number] Heart failure, unspecified (CMS/HCC V24, CMS/HCC V28) [...] CHEMISTRY METHOD 07/27/2024 2:15 PM EST [facility] Potassium 3.7 3.5 - 5.5 mmol/L LAB CHEMISTRY METHOD 07/27/2024 2:15 PM [facility] Chloride 102 96 - 110 mmol/L LAB CHEMISTRY METHOD 07/27/2024 2:15 PM [facility] CO2 28 21 - 32 mmol/L LAB CHEMISTRY METHOD 07/27/2024 2:15 PM [facility] Anion Gap 10 3 - 11 LAB CHEMISTRY METHOD 07/27/2024 2:15 PM [facility] Glucose 98 70 - 100 mg/dL LAB CHEMISTRY METHOD 07/27/2024 2:15 PM [facility] BUN 13 5 - 25 mg/dL LAB CHEMISTRY METHOD 07/27/2024 2:15 PM [facility] Creatinine 0.62 0.50 - 1.10 mg/dL LAB CHEMISTRY METHOD 07/27/2024 2:15 PM [facility] eGFR 95 >=60 mL/min/1. 73m2 LAB CHEMISTRY METHOD 07/27/2024 2:15 PM [facility] Comment:Calculation based on the??Chronic Kidney Disease Epidemiology Collaboration (CKD-EPI) equation refit??without adjustment for race. BUN/Creatinine Ratio 21.0 LAB CHEMISTRY METHOD 07/27/2024 2:15 PM [facility] Calcium 9.6 8.5 - 10.5 mg/dL LAB CHEMISTRY METHOD 07/27/2024 2:15 PM [facility] AST (SGOT) 34 10 - 42 unit/L LAB CHEMISTRY METHOD 07/27/2024 2:15 PM [facility] ALT (SGPT) 81(H) 10 - 60 unit/L LAB CHEMISTRY METHOD 07/27/2024 2:15 PM [facility] Alkaline Phosphatase 189(H) 42 - 121 unit/L LAB CHEMISTRY METHOD 07/27/2024 2:15 PM [facility] Total Protein 6.0 6.0 - 8.0 g/dL LAB CHEMISTRY METHOD 07/27/2024 2:15 PM [facility] Albumin 2.5(L) 3.2 - 5.0 g/dL LAB CHEMISTRY METHOD 07/27/2024 2:15 PM [facility] Total Bilirubin 0.3 0.0 - 1.4 mg/dL LAB CHEMISTRY METHOD 07/27/2024 2:15 PM [facility] Blood Venous blood specimen / Unknown Venipuncture / Unknown 07/27/2024 8:36 AM EST 07/27/2024 11:49 AM EST us Carmela Thomas MD LAB BLOOD ORDERABLES Fin al Result [facility] [address] [place] [address], * (ABNORMAL) Complete blood count (07/27/2024 8:36 AM EST) WBC 17.3(H) 4.8 - 10.8 K/mcL LAB HEMETOLOGY METHOD 07/27/2024 1:03 PM [facility] RBC 4.00 3.80 - 4.80 M/mcL LAB HEMETOLOGY METHOD 07/27/2024 1:03 PM [facility] Hemoglobin 12.0 11.5 - 16.0 g/dL LAB HEMETOLOGY METHOD 07/27/2024 1:03 PM [facility] Hematocrit 36.8 35.0 - 47.0 % LAB HEMETOLOGY METHOD 07/27/2024 1:03 PM [facility] MCV 92.0 79.0 - 98.0 FL LAB HEMETOLOGY METHOD 07/27/2024 1:03 PM [facility] MCH 30.0 27.0 - 32.0 pcg LAB HEMETOLOGY METHOD 07/27/2024 1:03 PM EST [facility] MCHC 32.6 32.0 - 37.0 g/dL LAB HEMETOLOGY METHOD 07/27/2024 1:03 PM [facility] RDW 13.4 11.0 - 15.0 % LAB HEMETOLOGY METHOD 07/27/2024 1:03 PM [facility] Platelets 609(H) 130 - 400 K/mcL LAB HEMETOLOGY METHOD 07/27/2024 1:03 PM EST [facility] MPV 9.9 7.0 - 11.0 FL LAB HEMETOLOGY METHOD 07/27/2024 1:03 PM [facility] NRBC 0.0 <1.0 % LAB HEMETOLOGY METHOD 07/27/2024 1:03 PM [facility] NRBC Absolute 0.00 <0.10 K/mcL LAB HEMETOLOGY METHOD 07/27/2024 1:03 PM [facility] Blood Venous blood specimen / Unknown Venipuncture / Unknown 07/27/2024 8:36 AM EST 07/27/2024 11:49 AM EST us Carmela Thomas MD LAB BLOOD ORDERABLES Fin al Result [facility] [address] [place] [address], documented in this encounter Visit Diagnoses Diagnosis Heart failure, unspecified (CMS/HCC V24, CMS/HCC V28) Heart failure, unspecified documented in this encounter Care Teams Wheel Installer Relationship Specialty Start Date End Date Sushil Stewart MD [address] [place] [address] [address] [place], [place] PCP - General Internal Medicine 10/14/17 documented as of this encounter
--- OUTSIDE RECORDS SUMMARY | 2024-10-27 10:47 | XMS_ITS | Encounter Summary ---
Author Organization [facility] Address [id number] [place] [phone] Care Team Providers Care Safety And Skill Based Pay Manager Name Role Phone Sushil Stewart MD Primary Care Provider Encounter Details Date Type Department Care Team (Late st Contact Info) Description 08/23/2024 Lab Requisition [facility] - Main Lab [address] [facility] [place] [address] Carmela Thomas MD [address] [address] Heart failure, unspecified (CMS/HCC V24, CMS/HCC V28) [...] unspecified documented in this encounter Care Teams Safety And Skill Based Pay Manager Relationship Specialty Start Date End Date Sushil Stewart MD [address] [place], [place] PCP - General Internal Medicine 10/14/17 documented as of this encounter
--- OUTSIDE RECORDS SUMMARY | 2024-10-27 10:48 | XMS_ITS | Clinical Summary ---
Author Organization [address] Address [address] [place] [address] Phone Care Team Providers Care Assistant Director Of Security Name Role Phone Sushil Stewart MD Primary Care Provider [phone] Encounters Date Type Department Care Team Description 08/23/[address] [facility] [address] [place] [phone] Carmela Thomas MD Heart failure, unspecified (CMS/HCC V24, CMS/HCC V28) 08/16/[address] [facility] Lab [address] [place] [phone] Carmela Thomas MD Heart failure, unspecified (CMS/HCC V24, CMS/HCC V28) 08/08/[address] [facility] Lab [address] [place] [phone] Carmela Thomas MD Heart failure, unspecified (CMS/HCC V24, CMS/HCC V28) 08/01/[address] [facility] Lab [address] [place] [phone] Carmela Thomas MD Heart failure, unspecified (CMS/HCC [...] CRV BELOW C2; COMMENT: C5-6 ACDF, Dr. Pennings Medical History Medical History Date Comments COPD (chronic obstructive pu lmonary disease) ([facility] V24, [facility] V28) 04/11/2018 DX:COPD (chronic o bstructive pulmonary disease) ([facility]) GERD (gastroesophageal reflu x disease) 04/11/2018 DX:GERD [...] 7:22 AM EST Heart failure, unspecified (CMS/HCC) from Last 3 Months Results * (ABNORMAL) Complete blood count (08/17/2024 9:34 AM EST) Only the most recent of3 resultswithin the time period is included. WBC [...] 08/17/2024 1:30 PM [facility] MCV 97.7 79.0 - 98.0 FL LAB HEMETOLOGY METHOD 08/17/2024 1:30 PM [facility] MCH 30.4 27.0 - 32.0 pcg LAB HEMETOLOGY METHOD 08/17/2024 1:30 PM EST [facility] MCHC 31.1(L) 32.0 - 37.0 g/dL LAB HEMETOLOGY METHOD 08/17/2024 1:30 PM EST [facility] RDW 14.0 11.0 - 15.0 % LAB HEMETOLOGY METHOD 08/17/2024 1:30 PM [facility] Platelets 427(H) 130 - 400 K/mcL LAB HEMETOLOGY METHOD 08/17/2024 1:30 PM EST [facility] MPV 10.3 7.0 - 11.0 FL LAB HEMETOLOGY METHOD 08/17/2024 1:30 PM [facility] NRBC 0.0 <1.0 % LAB HEMETOLOGY METHOD 08/17/2024 1:30 PM [facility] NRBC Absolute 0.00 <0.10 K/mcL LAB HEMETOLOGY METHOD 08/17/2024 1:30 PM [facility] Blood Venous blood specimen / Unknown Venipuncture / Unknown 08/17/2024 9:34 AM EST 08/17/2024 11:30 AM EST us Carmela Thomas MD LAB BLOOD ORDERABLES Fin al Result [facility] [address] [place] [address], * (ABNORMAL) Comprehensive metabolic panel (08/17/2024 9:34 AM EST) Only the most recent of3 resultswithin the time period is included. Sodium [...] 08/17/2024 2:03 PM [facility] Alkaline Phosphatase 177(H) 42 - 121 unit/L LAB CHEMISTRY METHOD 08/17/2024 2:03 PM [facility] Total Protein 6.0 6.0 - 8.0 g/dL LAB CHEMISTRY METHOD 08/17/2024 2:03 PM [facility] Albumin 2.9(L) 3.2 - 5.0 g/dL LAB CHEMISTRY METHOD 08/17/2024 2:03 PM EST [facility] Total Bilirubin 0.2 0.0 - 1.4 mg/dL LAB CHEMISTRY METHOD 08/17/2024 2:03 PM EST [facility] Blood Venous blood specimen / Unknown Venipuncture / Unknown 08/17/2024 9:34 AM EST 08/17/2024 11:30 AM EST us Carmela Thomas MD LAB BLOOD ORDERABLES Fin al Result [facility] ([facility] [address] [place] [address], from Last 3 Months Insurance MEDICARE Care Teams Assistant Director Of Security Relationship Specialty Start Date End Date Sushil Stewart MD [address] [place] [address] Rd [address] [place], [place] PCP - General Internal Medicine 10/14/17
== END 2024-10-22 09:57 | disposition home or self-care (01) ==
LOC: HO.HOSX 09:56
PROVIDERS: Visit Provider Physician Assistant
DX: M79.605 Pain in left leg (principal); S72.012A Unspecified intracapsular fracture of left femur, initial encounter for closed fracture; X58.XXXA Exposure to other specified factors, initial encounter; Y93.9 Activity, unspecified; Y92.9 Unspecified place or not applicable; Y99.9 Unspecified external cause status
CPT/HCPCS: 73552; 99212

== ENCOUNTER 2024-10-22 14:01 | Outpatient (AMB) | payer MEDICARE, BC, SELFPAY ==
--- NOTE | 2024-10-22 14:03 | MHC.OFFVIS ---
Intake Visit Reasons: PO - left hip CRPP 07/12/24 Intake Note: Isabela is a 73 year old female who presents today for a post op appointment s/p left hip CRPP 07/12/2024 . At patient last visit she was working on transitioning from [facility] services to outpatient PT, she will follow up in 4 weeks with repeat x-rays. Patient reports that she continues working with the [facility]. She complains of constant pain in her hip that is located in her groin, lateral aspect of hip that radiates down her leg. Allergies codeine [CODEINE] Allergy (Unknown, Verified 10/22/24 14:04) Hives lorazepam [From Ativan] Adverse Reaction (Verified 10/22/24 14:04) Hallucinations Medication List - Last Reconciled 10/22/24 by Gaston Ponce PA-C amlodipine 5 mg See Protocol PO DAILY aspirin 81 mg PO DAILY bisacodyl 10 mg SC NEEDED PRN wkiuvkgrir-lpkhgumymvjki-sbyr 50-300-40 mg 1 cap PO Q24H PRN cholecalciferol (vitamin D3) 50 mcg PO DAILY clopidogrel 75 mg PO DAILY cyclobenzaprine 10 mg PO DAILY PRN erenumab-aooe (Aimovig Autoinjector) 140 mg subcut Q28D esomeprazole magnesium 40 mg PO DAILY@0630 fluticasone propionate 50 mcg/actuation 1 spray intranasal Q12H PRN auhptctnwmp-emewrcaxn-boobvbqm 100-62.5-25 mcg (Trelegy Ellipta) 1 ea inhalation DAILY immun glob G(IgG)-gly-IgA ov50 10 gram/50 mL (20 %) (Cuvitru) 50 mL subcut MCKENZIE@0900 ipratropium-albuterol 0.5 mg-3 mg(2.5 mg base)/3 mL 3 mL inhalation QID PRN levalbuterol HCl 1.25 mg (0.5 mL) inhalation TID PRN levofloxacin 500 mg PO Q24H losartan 50 mg See Protocol PO BEDTIME magnesium hydroxide (Milk of Magnesia) 30 mL PO NEEDED PRN metoprolol tartrate 25 mg See Protocol PO BID nicotine 7 mg transdermal DAILY nystatin 400,000 units (4 mL) PO QID 7 days ocrelizumab 600 mg IV [id number] olanzapine 5 mg PO BID ondansetron HCl 4 mg PO Q8H PRN oxycodone-acetaminophen 10-325 mg 1 tab PO Q4-6H roflumilast 500 mcg PO DAILY rosuvastatin 40 mg PO BEDTIME sertraline 50 mg PO DAILY trazodone 50 mg PO BEDTIME PRN HPI HPI PO - left hip CRPP 07/12/24 DR: Details: 74-year-old female returns to the office today 3-1/2 months status post left hip percutaneous pinning on 07/12/[address] Rodriguez. At her last appointment she was referred to formal physical therapy which she has yet to attend. She was given a 1 time prescription for cyclobenzaprine. She complains of recurrent muscle spasms in the thigh. She complains of groin pain which radiates to the lateral aspect of the hip down her leg. She continues to ambulate with a walker. [facility] Medical History MDD (major depressive disorder), recurrent episode Essential hypertension Leukocytosis History of CAD (coronary artery disease) Peripheral vascular disease Chronic back pain GERD (gastroesophageal reflux disease) High cholesterol HTN (hypertension) Immune disorder COPD (chronic obstructive pulmonary disease) Multiple sclerosis Surgical History History of angioplasty History of heart artery stent Social History Household Members: Significant Other Housing: Apartment Do you presently have visiting nurse or other home services: Yes Alcohol intake: never Comment: 5 miinute checks Patient Tobacco Use Status: Former Tobacco user Tobacco use type: Cigarette Cigarette Packs Per Day: 1 Cigarettes Per Day: 20.0 Advance Directives Date on File: 11/22/22 service: No Current occupational status: retired Sexual orientation: Straight/Heterosexual Review of Systems Const All systems reviewed & are unremarkable except as noted in HPI and below Physical Exam Const General: cooperative and no acute distress Orientation/consciousness: patient oriented x3 Resp Effort & Inspection: normal respiratory effort and able to speak in complete sentences Cardio Peripheral pulses: Peripheral pulses 2+ throughout Neuro General: patient oriented x3 Extrem Other: Left hip incision well healed. She is significantly weak with hip flexion Compared to contralateral side. She has full range of motion without discomfort. Neurovascularly intact Results Reviewed Results Reviewed: x-rays of the left hip obtained in the office today and reviewed by me show intact pins with interval healing. Assessment & Plan Assessment & Plan (1) Subcapital fracture of left hip: Code(s): S72.012A - Unspecified intracapsular fracture of left femur, initial encounter for closed fracture Category: Medical Plan: I stressed the importance of working with formal physical therapy to improve her strength and gait training. I declined refill on cyclobenzaprine. I explained she needs to reach out to her primary care physician for any further refills on this or narcotic medication as she is out of the acute postop timeframe. A new physical therapy order was placed today if she continues to have discomfort she will return in [address] Rodriguez to discuss otherwise follow up as needed. Orders: Orders XR femur LT 2V Today M79.606 - Pain in leg, unspecified Coding Level of Care Code Est Pt Level 3 (45220) Complex EM visit Add On G2211 Diagnoses Subcapital fracture of left hip S72.012A
--- OUTSIDE RECORDS SUMMARY | 2024-10-22 14:56 | XMS_ITS | Encounter Summary ---
Author Organization [facility] Address [address] [place] [address] Care Team Providers Care Chief Medical Officer Name Role Phone Sushil Stewart MD Primary Care Provider [phone] Encounter Details Date Type Department Care Team (Late st Contact Info) Description 07/27/2024 Lab Requisition [facility] - Main Lab [address] [place] [address] Carmela Thomas MD [address] [phone] Heart failure, unspecified (CMS/HCC V24, CMS/HCC V28) Social History Tobacco Use Types Packs/Day Years [...] LAB CHEMISTRY METHOD 07/27/2024 2:15 PM EST [facility] Potassium 3.7 3.5 - 5.5 mmol/L LAB CHEMISTRY METHOD 07/27/2024 2:15 PM [facility] Chloride 102 96 - 110 mmol/L LAB CHEMISTRY METHOD 07/27/2024 2:15 PM [facility] CO2 28 21 - 32 mmol/L LAB CHEMISTRY METHOD 07/27/2024 2:15 PM [facility] Anion Gap 10 3 - 11 LAB CHEMISTRY METHOD 07/27/2024 2:15 PM [facility] Glucose 98 70 - 100 mg/dL LAB CHEMISTRY METHOD 07/27/2024 2:15 PM [facility] BUN 13 5 - 25 mg/dL LAB CHEMISTRY METHOD 07/27/2024 2:15 PM [facility] Creatinine 0.62 0.50 - 1.10 mg/dL LAB CHEMISTRY METHOD 07/27/2024 2:15 PM [facility] eGFR 95 >=60 mL/min/1. 73m2 LAB CHEMISTRY METHOD 07/27/2024 2:15 PM [facility] Comment:Calculation based on the??Chronic Kidney Disease Epidemiology Collaboration (CKD-EPI) equation refit??without adjustment for race. BUN/Creatinine Ratio 21.0 LAB CHEMISTRY METHOD 07/27/2024 2:15 PM [facility] Calcium 9.6 8.5 - 10.5 mg/dL LAB CHEMISTRY METHOD 07/27/2024 2:15 PM [facility] AST (SGOT) 34 10 - 42 unit/L LAB CHEMISTRY METHOD 07/27/2024 2:15 PM [facility] ALT (SGPT) 81(H) 10 - 60 unit/L LAB CHEMISTRY METHOD 07/27/2024 2:15 PM [facility] Alkaline Phosphatase 189(H) 42 - 121 unit/L LAB CHEMISTRY METHOD 07/27/2024 2:15 PM [facility] Total Protein 6.0 6.0 - 8.0 g/dL LAB CHEMISTRY METHOD 07/27/2024 2:15 PM [facility] Albumin 2.5(L) 3.2 - 5.0 g/dL LAB CHEMISTRY METHOD 07/27/2024 2:15 PM [facility] Total Bilirubin 0.3 0.0 - 1.4 mg/dL LAB CHEMISTRY METHOD 07/27/2024 2:15 PM [facility] Blood Venous blood specimen / Unknown Venipuncture / Unknown 07/27/2024 8:36 AM EST 07/27/2024 11:49 AM EST us Carmela Thomas MD LAB BLOOD ORDERABLES Fin al Result [facility] [address] [place] [address], * (ABNORMAL) Complete blood count (07/27/2024 8:36 AM EST) WBC 17.3(H) 4.8 - 10.8 K/mcL LAB HEMETOLOGY METHOD 07/27/2024 1:03 PM [facility] RBC 4.00 3.80 - 4.80 M/mcL LAB HEMETOLOGY METHOD 07/27/2024 1:03 PM [facility] Hemoglobin 12.0 11.5 - 16.0 g/dL LAB HEMETOLOGY METHOD 07/27/2024 1:03 PM [facility] Hematocrit 36.8 35.0 - 47.0 % LAB HEMETOLOGY METHOD 07/27/2024 1:03 PM [facility] MCV 92.0 79.0 - 98.0 FL LAB HEMETOLOGY METHOD 07/27/2024 1:03 PM [facility] MCH 30.0 27.0 - 32.0 pcg LAB HEMETOLOGY METHOD 07/27/2024 1:03 PM EST [facility] MCHC 32.6 32.0 - 37.0 g/dL LAB HEMETOLOGY METHOD 07/27/2024 1:03 PM [facility] RDW 13.4 11.0 - 15.0 % LAB HEMETOLOGY METHOD 07/27/2024 1:03 PM [facility] Platelets 609(H) 130 - 400 K/mcL LAB HEMETOLOGY METHOD 07/27/2024 1:03 PM EST [facility] MPV 9.9 7.0 - 11.0 FL LAB HEMETOLOGY METHOD 07/27/2024 1:03 PM [facility] NRBC 0.0 <1.0 % LAB HEMETOLOGY METHOD 07/27/2024 1:03 PM [facility] NRBC Absolute 0.00 <0.10 K/mcL LAB HEMETOLOGY METHOD 07/27/2024 1:03 PM [facility] Blood Venous blood specimen / Unknown Venipuncture / Unknown 07/27/2024 8:36 AM EST 07/27/2024 11:49 AM EST us Carmela Thomas MD LAB BLOOD ORDERABLES Fin al Result [facility] [address] [place] [address], documented in this encounter Visit Diagnoses Diagnosis Heart failure, unspecified (CMS/HCC V24, CMS/HCC V28) Heart failure, unspecified documented in this encounter Care Teams Chief Medical Officer Relationship Specialty Start Date End Date Sushil Stewart MD [address] [place] [address] [address] [place], [place] PCP - General Internal Medicine 10/14/17 documented as of this encounter
--- OUTSIDE RECORDS SUMMARY | 2024-10-22 14:56 | XMS_ITS | Encounter Summary ---
Author Organization [facility] Address [id number] [place] [id number] Care Team Providers Care Dish Maker Name Role Phone Sushil Stewart MD Primary Care Provider Encounter Details Date Type Department Care Team (Late st Contact Info) Description 08/23/2024 Lab Requisition [facility] - Main Lab [address] [facility] [place] [place] [address] Carmela Thomas MD [address] [address] Heart failure, unspecified (CMS/HCC V24, CMS/HCC V28) [...] unspecified documented in this encounter Care Teams Dish Maker Relationship Specialty Start Date End Date Sushil Stewart MD [address] [place], [place] PCP - General Internal Medicine 10/14/17 documented as of this encounter
--- OUTSIDE RECORDS SUMMARY | 2024-10-22 14:56 | XMS_ITS | Clinical Summary ---
Author Organization [address] Address [address] [place] [address] Phone Care Team Providers Care Energy Advisor Name Role Phone Sushil Stewart MD Primary Care Provider [phone] Encounters Date Type Department Care Team Description 08/23/2024 Lab Requisition [facility] Lab [address] [place] [phone] Carmela Thomas MD Heart failure, unspecified (CMS/HCC V24, CMS/HCC V28) 08/16/2024 Lab Requisition [facility] Lab [address] [place] [phone] Carmela Thomas MD Heart failure, unspecified (CMS/HCC V24, CMS/HCC V28) 08/08/2024 Lab Requisition [facility] Lab [address] [place] [phone] Carmela Thomas MD Heart failure, unspecified (CMS/HCC V24, CMS/HCC V28) 08/01/2024 Lab Requisition [facility] Lab [address] [place] [phone] Carmela Thomas MD Heart failure, unspecified (CMS/HCC V24, CMS/HCC V28) 07/27/2024 Lab Requisition [facility] Lab [address] [place] [phone] Carmela Thomas MD Heart failure, unspecified (CMS/HCC V24, CMS/HCC V28) from Last 3 Months Surgical History Surgery Date Site/Laterality Comments BACK SURGERY PROCEDURE: HISTORICAL BACK SURGERY; COMMENT: x 3 OTHER SURGICAL HISTORY PROCEDURE: HISTORY OTHER; COMMENT: sinus surgery HYSTERECTOMY PROCEDURE: HISTORICAL HYSTERECTOMY CHOLECYSTECTOMY PROCEDURE: HISTORICAL CHOLECYSTECTOMY ANGIOPLASTY PROCEDURE: HISTORICAL ANGIOPLASTY W/STENT OTHER SURGICAL HISTORY 11/03/2021 PROCEDURE: OR ARTHRD ANT INTERBODY MIN DSC CRV BELOW C2; COMMENT: C5-6 ACDF, Dr. Doss Medical History Medical History Date Comments COPD (chronic obstructive pu lmonary disease) ([facility] V24, [facility] V28) 04/11/2018 DX:COPD (chronic o bstructive pulmonary disease) ([facility]) GERD (gastroesophageal reflu x disease) [...] Influencers of Health Screening 05/19/2022 Influenza Vaccine (Season Ended) 2025 05/09/2019 Hypertension/CHF/CAD Annual BMP Blood Test 08/17/2025 [...] LAB HEMETOLOGY METHOD 08/17/2024 1:30 PM EST [facility] LAB RBC 3.10(L) 3.80 - 4.80 M/mcL LAB HEMETOLOGY METHOD 08/17/2024 1:30 PM EST [facility] Hemoglobin 9.4(L) 11.5 - 16.0 g/dL LAB HEMETOLOGY METHOD 08/17/2024 1:30 PM EST [facility] LAB Hematocrit 30.2(L) 35.0 - 47.0 % LAB HEMETOLOGY METHOD 08/17/2024 1:30 PM [facility] MCV 97.7 79.0 - 98.0 FL LAB HEMETOLOGY METHOD 08/17/2024 1:30 PM [facility] MCH 30.4 27.0 - 32.0 pcg LAB HEMETOLOGY METHOD 08/17/2024 1:30 PM [facility] MCHC 31.1(L) 32.0 - 37.0 g/dL LAB HEMETOLOGY METHOD 08/17/2024 1:30 PM [facility] RDW 14.0 11.0 - 15.0 % LAB HEMETOLOGY METHOD 08/17/2024 1:30 PM [facility] LAB Platelets 427(H) 130 - 400 K/mcL LAB HEMETOLOGY METHOD 08/17/2024 1:30 PM [facility] MPV 10.3 7.0 - 11.0 FL LAB HEMETOLOGY METHOD 08/17/2024 1:30 PM [facility] NRBC 0.0 <1.0 % LAB HEMETOLOGY METHOD 08/17/2024 1:30 PM [facility] LAB NRBC Absolute 0.00 <0.10 K/mcL LAB HEMETOLOGY METHOD 08/17/2024 1:30 PM [facility] Blood Venous blood specimen / Unknown Venipuncture / Unknown 08/17/2024 9:34 AM EST 08/17/2024 11:30 AM EST us Carmela Thomas MD LAB BLOOD ORDERABLES Fin al Result [facility] [address] [place] [address], [place] [phone] * (ABNORMAL) Comprehensive metabolic panel (08/17/2024 9:34 AM EST) Only the most recent of4 resultswithin the time period is included. Sodium 139 133 - 145 mmol/L LAB CHEMISTRY METHOD 08/17/2024 2:03 PM [facility] Potassium 3.7 3.5 - 5.5 mmol/L LAB CHEMISTRY METHOD 08/17/2024 2:03 PM [facility] Chloride 102 96 - 110 mmol/L LAB CHEMISTRY METHOD 08/17/2024 2:03 PM [facility] CO2 30 21 - 32 mmol/L LAB CHEMISTRY METHOD 08/17/2024 2:03 PM [facility] Anion Gap 7 3 - 11 LAB CHEMISTRY METHOD 08/17/2024 2:03 PM [facility] Glucose 157(H) 70 - 100 mg/dL LAB CHEMISTRY METHOD 08/17/2024 2:03 PM [facility] BUN 13 5 - 25 mg/dL LAB CHEMISTRY METHOD 08/17/2024 2:03 PM [facility] Creatinine 0.65 0.50 - 1.10 mg/dL LAB CHEMISTRY METHOD 08/17/2024 2:03 PM [facility] eGFR 94 >=60 mL/min/1. 73m2 LAB CHEMISTRY METHOD 08/17/2024 2:03 PM [facility] Comment:Calculation based on the??Chronic Kidney Disease Epidemiology Collaboration (CKD-EPI) equation refit??without adjustment for race. BUN/Creatinine Ratio 20.0 LAB CHEMISTRY METHOD 08/17/2024 2:03 PM [facility] Calcium 9.8 8.5 - 10.5 mg/dL LAB CHEMISTRY METHOD 08/17/2024 2:03 PM [facility] AST (SGOT) 23 10 - 42 unit/L LAB CHEMISTRY METHOD 08/17/2024 2:03 PM [facility] ALT (SGPT) 70(H) 10 - 60 unit/L LAB CHEMISTRY METHOD 08/17/2024 2:03 PM [facility] Alkaline Phosphatase 177(H) 42 - 121 unit/L LAB CHEMISTRY METHOD 08/17/2024 2:03 PM [facility] Total Protein 6.0 6.0 - 8.0 g/dL LAB CHEMISTRY METHOD 08/17/2024 2:03 PM [facility] Albumin 2.9(L) 3.2 - 5.0 g/dL LAB CHEMISTRY METHOD 08/17/2024 2:03 PM [facility] Total Bilirubin 0.2 0.0 - 1.4 mg/dL LAB CHEMISTRY METHOD 08/17/2024 2:03 PM [facility] Blood Venous blood specimen / Unknown Venipuncture / Unknown 08/17/2024 9:34 AM EST 08/17/2024 11:30 AM EST Carmela Thomas MD LAB BLOOD ORDERABLES Fin al Result [facility] [address] [place] [address], from Last 3 Months Insurance MEDICARE Care Teams Energy Advisor Relationship Specialty Start Date End Date Sushil Stewart MD [address] [place], [place] PCP - General Internal Medicine 10/14/17
--- OUTSIDE RECORDS SUMMARY | 2024-10-22 14:56 | XMS_ITS | Encounter Summary ---
Author Organization [facility] Address [address] [place] [address] Care Team Providers Care Neuroscientist Name Role Phone Sushil Stewart MD Primary Care Provider [phone] Encounter Details Date Type Department Care Team (Late st Contact Info) Description 08/08/2024 Lab Requisition [facility] Lab [address] [place] [address] Carmela Thomas MD [address] [phone] Heart failure, unspecified (CMS/HCC V24, CMS/HCC V28) [...] LAB CHEMISTRY METHOD 08/10/2024 12:42 PM EST [facility] Potassium 3.3(L) 3.5 - 5.5 mmol/L LAB CHEMISTRY METHOD 08/10/2024 12:42 PM [facility] Chloride 106 96 - 110 mmol/L LAB CHEMISTRY METHOD 08/10/2024 12:42 PM [facility] CO2 29 21 - 32 mmol/L LAB CHEMISTRY METHOD 08/10/2024 12:42 PM [facility] Anion Gap 9 3 - 11 LAB CHEMISTRY METHOD 08/10/2024 12:42 PM [facility] Glucose 94 70 - 100 mg/dL LAB CHEMISTRY METHOD 08/10/2024 12:42 PM [facility] BUN 18 5 - 25 mg/dL LAB CHEMISTRY METHOD 08/10/2024 12:42 PM [facility] Creatinine 0.62 0.50 - 1.10 mg/dL LAB CHEMISTRY METHOD 08/10/2024 12:42 PM [facility] eGFR 95 >=60 mL/min/1. 73m2 LAB CHEMISTRY METHOD 08/10/2024 12:42 PM [facility] LAB Comment:Calculation based on the??Chronic Kidney Disease Epidemiology Collaboration (CKD-EPI) equation refit??without adjustment for race. BUN/Creatinine Ratio 29.0 LAB CHEMISTRY METHOD 08/10/2024 12:42 PM [facility] Calcium 9.2 8.5 - 10.5 mg/dL LAB CHEMISTRY METHOD 08/10/2024 12:42 PM [facility] AST (SGOT) 38 10 - 42 unit/L LAB CHEMISTRY METHOD 08/10/2024 12:42 PM [facility] ALT (SGPT) 68(H) 10 - 60 unit/L LAB CHEMISTRY METHOD 08/10/2024 12:42 PM [facility] Alkaline Phosphatase 145(H) 42 - 121 unit/L LAB CHEMISTRY METHOD 08/10/2024 12:42 PM [facility] Total Protein 5.8(L) 6.0 - 8.0 g/dL LAB CHEMISTRY METHOD 08/10/2024 12:42 PM [facility] Albumin 2.7(L) 3.2 - 5.0 g/dL LAB CHEMISTRY METHOD 08/10/2024 12:42 PM [facility] Total Bilirubin 0.3 0.0 - 1.4 mg/dL LAB CHEMISTRY METHOD 08/10/2024 12:42 PM [facility] Blood Venous blood specimen / Unknown Venipuncture / Unknown 08/10/2024 8:28 AM EST 08/10/2024 11:20 AM EST Carmela Thomas MD LAB BLOOD ORDERABLES Fin al Result [facility] [address] [place] [address], * (ABNORMAL) Complete blood count (08/10/2024 8:28 AM EST) WBC 10.7 4.8 - 10.8 K/mcL LAB HEMETOLOGY METHOD 08/10/2024 1:20 PM [facility] RBC 3.10(L) 3.80 - 4.80 M/mcL LAB HEMETOLOGY METHOD 08/10/2024 1:20 PM [facility] Hemoglobin 9.3(L) 11.5 - 16.0 g/dL LAB HEMETOLOGY METHOD 08/10/2024 1:20 PM [facility] Hematocrit 29.3(L) 35.0 - 47.0 % LAB HEMETOLOGY METHOD 08/10/2024 1:20 PM [facility] MCV 95.8 79.0 - 98.0 FL LAB HEMETOLOGY METHOD 08/10/2024 1:20 PM [facility] MCH 30.4 27.0 - 32.0 pcg LAB HEMETOLOGY METHOD 08/10/2024 1:20 PM EST [facility] MCHC 31.7(L) 32.0 - 37.0 g/dL LAB HEMETOLOGY METHOD 08/10/2024 1:20 PM EST [facility] RDW 14.2 11.0 - 15.0 % LAB HEMETOLOGY METHOD 08/10/2024 1:20 PM EST [facility] Platelets 280 130 - 400 K/mcL LAB HEMETOLOGY METHOD 08/10/2024 1:20 PM EST [facility] MPV 10.2 7.0 - 11.0 FL LAB HEMETOLOGY METHOD 08/10/2024 1:20 PM EST [facility] NRBC 0.0 <1.0 % LAB HEMETOLOGY METHOD 08/10/2024 1:20 PM [facility] NRBC Absolute 0.00 <0.10 K/mcL LAB HEMETOLOGY METHOD 08/10/2024 1:20 PM [facility] Blood Venous blood specimen / Unknown Venipuncture / Unknown 08/10/2024 8:28 AM EST 08/10/2024 11:21 AM EST us Carmela Thomas MD LAB BLOOD ORDERABLES Fin al Result [facility] [address] [place] [address], documented in this encounter Visit Diagnoses Diagnosis Heart failure, unspecified (CMS/HCC V24, CMS/HCC V28) Heart failure, unspecified documented in this encounter Care Teams Neuroscientist Relationship Specialty Start Date End Date Sushil Stewart MD [address] [place] [address] [address] [place], [place] PCP - General Internal Medicine 10/14/17 documented as of this encounter
--- OUTSIDE RECORDS SUMMARY | 2024-10-22 14:57 | XMS_ITS | Encounter Summary ---
Author Organization [facility] Address [address] [place] [address] Care Team Providers Care Route Sales Delivery Drivers Supervisor Name Role Phone Sushil Stewart MD Primary Care Provider [phone] Encounter Details Date Type Department Care Team (Late st Contact Info) Description 08/01/2024 Lab Requisition [facility] - Main Lab [address] [place] [address] Carmela Thomas MD [address] [phone] Heart failure, unspecified (CMS/HCC V24, CMS/HCC V28) [...] LAB CHEMISTRY METHOD 08/03/2024 11:51 AM EST [facility] Potassium 3.2(L) 3.5 - 5.5 mmol/L LAB CHEMISTRY METHOD 08/03/2024 11:51 AM [facility] Chloride 101 96 - 110 mmol/L LAB CHEMISTRY METHOD 08/03/2024 11:51 AM [facility] CO2 33(H) 21 - 32 mmol/L LAB CHEMISTRY METHOD 08/03/2024 11:51 AM [facility] Anion Gap 6 3 - 11 LAB CHEMISTRY METHOD 08/03/2024 11:51 AM [facility] Glucose 87 70 - 100 mg/dL LAB CHEMISTRY METHOD 08/03/2024 11:51 AM [facility] BUN 16 5 - 25 mg/dL LAB CHEMISTRY METHOD 08/03/2024 11:51 AM [facility] Creatinine 0.62 0.50 - 1.10 mg/dL LAB CHEMISTRY METHOD 08/03/2024 11:51 AM [facility] LAB eGFR 95 >=60 mL/min/1. 73m2 LAB CHEMISTRY METHOD 08/03/2024 11:51 AM [facility] LAB Comment:Calculation based on the??Chronic Kidney Disease Epidemiology Collaboration (CKD-EPI) equation refit??without adjustment for race. BUN/Creatinine Ratio 25.8 LAB CHEMISTRY METHOD 08/03/2024 11:51 AM [facility] Calcium 9.4 8.5 - 10.5 mg/dL LAB CHEMISTRY METHOD 08/03/2024 11:51 AM [facility] AST (SGOT) 37 10 - 42 unit/L LAB CHEMISTRY METHOD 08/03/2024 11:51 AM [facility] ALT (SGPT) 63(H) 10 - 60 unit/L LAB CHEMISTRY METHOD 08/03/2024 11:51 AM [facility] Alkaline Phosphatase 193(H) 42 - 121 unit/L LAB CHEMISTRY METHOD 08/03/2024 11:51 AM [facility] Total Protein 5.9(L) 6.0 - 8.0 g/dL LAB CHEMISTRY METHOD 08/03/2024 11:51 AM [facility] Albumin 3.0(L) 3.2 - 5.0 g/dL LAB CHEMISTRY METHOD 08/03/2024 11:51 AM [facility] Total Bilirubin 0.3 0.0 - 1.4 mg/dL LAB CHEMISTRY METHOD 08/03/2024 11:51 AM [facility] Blood Venous blood specimen / Unknown Venipuncture / Unknown 08/03/2024 7:22 AM EST 08/03/2024 10:51 AM EST us Carmela Thomas MD LAB BLOOD ORDERABLES Fin al Result [facility] [address] [place] [address], * (ABNORMAL) Complete blood count (08/03/2024 7:22 AM EST) WBC 11.0(H) 4.8 - 10.8 K/mcL LAB HEMETOLOGY METHOD 08/03/2024 11:15 AM [facility] RBC 3.60(L) 3.80 - 4.80 M/mcL LAB HEMETOLOGY METHOD 08/03/2024 11:15 AM [facility] Hemoglobin 10.9(L) 11.5 - 16.0 g/dL LAB HEMETOLOGY METHOD 08/03/2024 11:15 AM [facility] Hematocrit 33.8(L) 35.0 - 47.0 % LAB HEMETOLOGY METHOD 08/03/2024 11:15 AM [facility] MCV 94.9 79.0 - 98.0 FL LAB HEMETOLOGY METHOD 08/03/2024 11:15 AM [facility] MCH 30.6 27.0 - 32.0 pcg LAB HEMETOLOGY METHOD 08/03/2024 11:15 AM EST [facility] MCHC 32.2 32.0 - 37.0 g/dL LAB HEMETOLOGY METHOD 08/03/2024 11:15 AM EST [facility] RDW 13.5 11.0 - 15.0 % LAB HEMETOLOGY METHOD 08/03/2024 11:15 AM EST [facility] Platelets 347 130 - 400 K/mcL LAB HEMETOLOGY METHOD 08/03/2024 11:15 AM EST [facility] MPV 10.4 7.0 - 11.0 FL LAB HEMETOLOGY METHOD 08/03/2024 11:15 AM [facility] NRBC 0.0 <1.0 % LAB HEMETOLOGY METHOD 08/03/2024 11:15 AM [facility] NRBC Absolute 0.00 <0.10 K/mcL LAB HEMETOLOGY METHOD 08/03/2024 11:15 AM [facility] Blood Venous blood specimen / Unknown Venipuncture / Unknown 08/03/2024 7:22 AM EST 08/03/2024 10:51 AM EST Carmela Thomas MD LAB BLOOD ORDERABLES Fin al Result [facility] [address] [place] [address], documented in this encounter Visit Diagnoses Diagnosis Heart failure, unspecified (CMS/HCC V24, CMS/HCC V28) Heart failure, unspecified documented in this encounter Care Teams Route Sales Delivery Drivers Supervisor Relationship Specialty Start Date End Date Sushil Stewart MD [address] [place] [address] [address] [place], [place] PCP - General Internal Medicine 10/14/17 documented as of this encounter
== END 2024-10-22 14:31 | disposition home or self-care (01) ==
LOC: HO.HOS 14:02
PROVIDERS: Visit Provider Physician Assistant
DX: S72.012A Unspecified intracapsular fracture of left femur, initial encounter for closed fracture (principal)
CPT/HCPCS: 99213; G2211

== ENCOUNTER → 2024-10-22 14:04 | Outpatient (BNV) | payer MEDICARE, BC, SELFPAY | PROVIDERS: Visit Provider Radiology Diagnostic Radiology | DX: I70.202 Unspecified atherosclerosis of native arteries of extremities, left leg (principal) | CPT/HCPCS: 73552 ==

== ENCOUNTER 2024-11-19 11:16 | Outpatient (REF) | payer MEDICARE, BC, SELFPAY ==
--- NOTE | ~2024-11-19 | XR_ITS ---
EXAMINATION: XR HIP 2 OR MORE VIEWS LEFT HISTORY: M25.552 - Pain in left hip COMPARISON: Comparison is made with the prior examination dated 09/11/2024. FINDINGS: A single AP view of the pelvis and an additional view of the left hip are submitted. The bones are osteopenic. The patient is again noted to be status post internal fixation of the previously seen subcapital fracture with 3 cannulated screws. The joint space is maintained. There are vascular calcifications. XR/XR hip LT min 2V IMPRESSION: Internal fixation of a subcapital fracture of the left femur. Electronically signed by: Morgan Chapin MD 11/20/2024 08:12 AM EDT
--- OUTSIDE RECORDS SUMMARY | 2024-11-20 12:06 | XMS_ITS | Encounter Summary ---
Author Organization [facility] Address [address] [place] [address] Care Team Providers Care Astronomy Department Chair Name Role Phone Sushil Stewart MD Primary Care Provider [phone] Encounter Details Date Type Department Care Team (Late st Contact Info) Description 07/27/2024 Lab Requisition [facility] - Main Lab [address] [place] [address] Carmela Thomas MD [address] [phone] Heart failure, unspecified (CMS/HCC V24, CMS/HCC V28) [...] CHEMISTRY METHOD 07/27/2024 2:15 PM EST [facility] Potassium 3.7 3.5 - 5.5 mmol/L LAB CHEMISTRY METHOD 07/27/2024 2:15 PM [facility] Chloride 102 96 - 110 mmol/L LAB CHEMISTRY METHOD 07/27/2024 2:15 PM [facility] CO2 28 21 - 32 mmol/L LAB CHEMISTRY METHOD 07/27/2024 2:15 PM [facility] Anion Gap 10 3 - 11 LAB CHEMISTRY METHOD 07/27/2024 2:15 PM [facility] Glucose 98 70 - 100 mg/dL LAB CHEMISTRY METHOD 07/27/2024 2:15 PM [facility] BUN 13 5 - 25 mg/dL LAB CHEMISTRY METHOD 07/27/2024 2:15 PM [facility] Creatinine 0.62 0.50 - 1.10 mg/dL LAB CHEMISTRY METHOD 07/27/2024 2:15 PM [facility] eGFR 95 >=60 mL/min/1. 73m2 LAB CHEMISTRY METHOD 07/27/2024 2:15 PM [facility] Comment:Calculation based on the??Chronic Kidney Disease Epidemiology Collaboration (CKD-EPI) equation refit??without adjustment for race. BUN/Creatinine Ratio 21.0 LAB CHEMISTRY METHOD 07/27/2024 2:15 PM [facility] Calcium 9.6 8.5 - 10.5 mg/dL LAB CHEMISTRY METHOD 07/27/2024 2:15 PM [facility] AST (SGOT) 34 10 - 42 unit/L LAB CHEMISTRY METHOD 07/27/2024 2:15 PM [facility] ALT (SGPT) 81(H) 10 - 60 unit/L LAB CHEMISTRY METHOD 07/27/2024 2:15 PM [facility] Alkaline Phosphatase 189(H) 42 - 121 unit/L LAB CHEMISTRY METHOD 07/27/2024 2:15 PM [facility] Total Protein 6.0 6.0 - 8.0 g/dL LAB CHEMISTRY METHOD 07/27/2024 2:15 PM [facility] Albumin 2.5(L) 3.2 - 5.0 g/dL LAB CHEMISTRY METHOD 07/27/2024 2:15 PM [facility] Total Bilirubin 0.3 0.0 - 1.4 mg/dL LAB CHEMISTRY METHOD 07/27/2024 2:15 PM [facility] Blood Venous blood specimen / Unknown Venipuncture / Unknown 07/27/2024 8:36 AM EST 07/27/2024 11:49 AM EST us Carmela Thomas MD LAB BLOOD ORDERABLES Fin al Result [facility] [address] [place] [address], * (ABNORMAL) Complete blood count (07/27/2024 8:36 AM EST) WBC 17.3(H) 4.8 - 10.8 K/mcL LAB HEMETOLOGY METHOD 07/27/2024 1:03 PM [facility] RBC 4.00 3.80 - 4.80 M/mcL LAB HEMETOLOGY METHOD 07/27/2024 1:03 PM [facility] Hemoglobin 12.0 11.5 - 16.0 g/dL LAB HEMETOLOGY METHOD 07/27/2024 1:03 PM [facility] Hematocrit 36.8 35.0 - 47.0 % LAB HEMETOLOGY METHOD 07/27/2024 1:03 PM [facility] MCV 92.0 79.0 - 98.0 FL LAB HEMETOLOGY METHOD 07/27/2024 1:03 PM [facility] MCH 30.0 27.0 - 32.0 pcg LAB HEMETOLOGY METHOD 07/27/2024 1:03 PM EST [facility] MCHC 32.6 32.0 - 37.0 g/dL LAB HEMETOLOGY METHOD 07/27/2024 1:03 PM [facility] RDW 13.4 11.0 - 15.0 % LAB HEMETOLOGY METHOD 07/27/2024 1:03 PM [facility] Platelets 609(H) 130 - 400 K/mcL LAB HEMETOLOGY METHOD 07/27/2024 1:03 PM EST [facility] MPV 9.9 7.0 - 11.0 FL LAB HEMETOLOGY METHOD 07/27/2024 1:03 PM [facility] NRBC 0.0 <1.0 % LAB HEMETOLOGY METHOD 07/27/2024 1:03 PM [facility] NRBC Absolute 0.00 <0.10 K/mcL LAB HEMETOLOGY METHOD 07/27/2024 1:03 PM [facility] Blood Venous blood specimen / Unknown Venipuncture / Unknown 07/27/2024 8:36 AM EST 07/27/2024 11:49 AM EST us Carmela Thomas MD LAB BLOOD ORDERABLES Fin al Result [facility] [address] [place] [address], documented in this encounter Visit Diagnoses Diagnosis Heart failure, unspecified (CMS/HCC V24, CMS/HCC V28) Heart failure, unspecified documented in this encounter Care Teams Astronomy Department Chair Relationship Specialty Start Date End Date Sushil Stewart MD [address] [place] [address] [address] [place], [place] PCP - General Internal Medicine 10/14/17 documented as of this encounter
== END 2024-11-19 11:17 | disposition home or self-care (01) ==
LOC: HO.HOSX 11:16
PROVIDERS: Visit Provider Orthopaedic Surgery
DX: M25.552 Pain in left hip (principal); M54.50 Low back pain, unspecified; M79.605 Pain in left leg
CPT/HCPCS: 73502; 99212

== ENCOUNTER 2024-11-19 14:03 | Outpatient (AMB) | payer MEDICARE, BC, SELFPAY ==
[2024-11-19 14:21] VITALS: BMI 21.7
--- NOTE | 2024-11-19 14:21 | A.OFFVIS_ITS ---
Vital Signs 11/19/24 14:21 Height 5 ft 1 in Weight 115 lb BMI 21.7 Intake Visit Reasons: OV- left hip CRPP 07/12/24 s/p fall last week, Low back pain Intake Note: Isabela is a 74 year old female who presents with complaints of progressively worsening low back pain which radiates into her left leg as well as intermittent discomfort in her left hip after undergoing closed reduction and percutaneous pinning of her left femoral neck fracture on 07/12/2024. She denies any fevers or chills. The patient states that she has undergone 3 low back surgeries in the past. The most recent surgery was many years ago. She has seen a chiropractor which seemed to aggravate her symptoms. She has taken Soma in the past which has given her mild relief. She has tried Tylenol and anti- inflammatory medicines which gave her minimal relief. The patient states that several weeks ago she did have weakness in her left leg and fell to the ground. She states that after the fall her back pain did increase. She denies any increase in her left hip discomfort. Allergies codeine [CODEINE] Allergy (Unknown, Verified 11/19/24 14:22) Hives lorazepam [From Ativan] Adverse Reaction (Verified 11/19/24 14:22) Hallucinations Medication List - Last Reconciled 11/19/24 by Gino Rodriguez MD amlodipine 5 mg See Protocol PO DAILY aspirin 81 mg PO DAILY bisacodyl 10 mg MS NEEDED PRN rdcfzonuna-pxrfobxwdqssd-axdo 50-300-40 mg 1 cap PO Q24H PRN cholecalciferol (vitamin D3) 50 mcg PO DAILY clopidogrel 75 mg PO DAILY cyclobenzaprine 10 mg PO DAILY PRN erenumab-aooe (Aimovig Autoinjector) 140 mg subcut Q28D esomeprazole magnesium 40 mg PO DAILY@0630 fluticasone propionate 50 mcg/actuation 1 spray intranasal Q12H PRN itwszyrxvml-zpjlnafnr-xzscygnf 100-62.5-25 mcg (Trelegy Ellipta) 1 ea inhalation DAILY immun glob G(IgG)-gly-IgA ov50 10 gram/50 mL (20 %) (Cuvitru) 50 mL subcut MCKENZIE@0900 ipratropium-albuterol 0.5 mg-3 mg(2.5 mg base)/3 mL 3 mL inhalation QID PRN levalbuterol HCl 1.25 mg (0.5 mL) inhalation TID PRN levofloxacin 500 mg PO Q24H losartan 50 mg See Protocol PO BEDTIME magnesium hydroxide (Milk of Magnesia) 30 mL PO NEEDED PRN metoprolol tartrate 25 mg See Protocol PO BID nicotine 7 mg transdermal DAILY nystatin 400,000 units (4 mL) PO QID 7 days ocrelizumab 600 mg IV [id number] olanzapine 5 mg PO BID ondansetron HCl 4 mg PO Q8H PRN oxycodone-acetaminophen 10-325 mg 1 tab PO Q4-6H roflumilast 500 mcg PO DAILY rosuvastatin 40 mg PO BEDTIME sertraline 50 mg PO DAILY trazodone 50 mg PO BEDTIME PRN PFSH Medical History MDD (major depressive disorder), recurrent episode Essential hypertension Leukocytosis History of CAD (coronary artery disease) Peripheral vascular disease Chronic back pain GERD (gastroesophageal reflux disease) High cholesterol HTN (hypertension) Immune disorder COPD (chronic obstructive pulmonary disease) Multiple sclerosis Surgical History History of angioplasty History of heart artery stent Social History Household Members: Significant Other Housing: Apartment Do you presently have visiting nurse or other home services: Yes Alcohol intake: never Comment: 5 miinute checks Patient Tobacco Use Status: Former Tobacco user Tobacco use type: Cigarette Cigarette Packs Per Day: 1 Cigarettes Per Day: 20.0 Advance Directives Date on File: 11/22/22 service: No Current occupational status: retired Sexual orientation: Straight/Heterosexual Physical Exam Vital Signs: BMI result Body Mass Index 21.7 Const Other: Well-nourished well-developed very friendly female awake alert and oriented x3 in no acute distress Back/Spine/Pelvis Other: Low back examination shows left-sided paraspinal muscle tenderness, pain with r vijay of motion, positive straight leg raise test on the left at 70 degrees, 4/5 strength with testing of her left hip flexors and knee extensors when compared to 5/5 strength on her right side Extrem Other: Left hip examination shows that the surgical incision is well healed, no erythema, minimal discomfort with range of motion, no crepitus with range of motion, mild tenderness over her bursa Results Reviewed Results Reviewed: X-rays of the patient's left hip taken today show 3 cannulated screws in good position with no signs of loosening, bony trabeculae crossing her femoral neck fracture site, no increase in fracture angulation or displacement Assessment & Plan Assessment & Plan (1) Low back pain radiating to left leg: Code(s): M54.50 - Low back pain, unspecified; M79.605 - Pain in left leg Category: Medical Plan Ms. Leslie presents with progressively worsening low back pain which radiates down her left leg most likely due to lumbar stenosis or a disc herniation. Thus, I will send the patient for an MRI of her lumbar spine for further evaluation. I will contact her by phone once the MRI results are available. I did give her a prescription for Soma to help with her discomfort in the meantime. Feel free to call me at any time should questions regarding her orthopedic management arise. I spent 22 minutes in reviewing the patient's records and imaging studies, seeing the patient and documenting in the medical record. Orders: Orders MR lumbar spine wo con 11/19/24 M54.50 - Low back pain, unspecified, M79.605 - Pain in left leg XR hip LT min 2V 11/19/24 M25.552 - Pain in left hip Medications: New carisoprodol (Soma) 350 mg PO Q12H PRN 30 tabs 1RF muscle pain Coding Level of Care Code Est Pt Level 3 (42498) Complex EM visit Add On G2211 Diagnoses Low back pain radiating to left leg M54.50; M79.605
--- OUTSIDE RECORDS SUMMARY | 2024-11-19 16:41 | XMS_ITS | Encounter Summary ---
Author Organization [facility] Address [address] [place] [address] Care Team Providers Care Elastic Cutter Name Role Phone Sushil Stewart MD Primary Care Provider [phone] Encounter Details Date Type Department Care Team (Late st Contact Info) Description 07/27/2024 Lab Requisition [facility] - Main Lab [address] [place] [address] Carmela Thomas MD [address] [phone] Heart failure, unspecified (CMS/HCC V24, CMS/HCC V28) [...] CHEMISTRY METHOD 07/27/2024 2:15 PM EST [facility] Potassium 3.7 3.5 - 5.5 mmol/L LAB CHEMISTRY METHOD 07/27/2024 2:15 PM [facility] Chloride 102 96 - 110 mmol/L LAB CHEMISTRY METHOD 07/27/2024 2:15 PM [facility] CO2 28 21 - 32 mmol/L LAB CHEMISTRY METHOD 07/27/2024 2:15 PM [facility] Anion Gap 10 3 - 11 LAB CHEMISTRY METHOD 07/27/2024 2:15 PM [facility] Glucose 98 70 - 100 mg/dL LAB CHEMISTRY METHOD 07/27/2024 2:15 PM [facility] BUN 13 5 - 25 mg/dL LAB CHEMISTRY METHOD 07/27/2024 2:15 PM [facility] Creatinine 0.62 0.50 - 1.10 mg/dL LAB CHEMISTRY METHOD 07/27/2024 2:15 PM [facility] eGFR 95 >=60 mL/min/1. 73m2 LAB CHEMISTRY METHOD 07/27/2024 2:15 PM [facility] Comment:Calculation based on the??Chronic Kidney Disease Epidemiology Collaboration (CKD-EPI) equation refit??without adjustment for race. BUN/Creatinine Ratio 21.0 LAB CHEMISTRY METHOD 07/27/2024 2:15 PM [facility] Calcium 9.6 8.5 - 10.5 mg/dL LAB CHEMISTRY METHOD 07/27/2024 2:15 PM [facility] AST (SGOT) 34 10 - 42 unit/L LAB CHEMISTRY METHOD 07/27/2024 2:15 PM [facility] ALT (SGPT) 81(H) 10 - 60 unit/L LAB CHEMISTRY METHOD 07/27/2024 2:15 PM [facility] Alkaline Phosphatase 189(H) 42 - 121 unit/L LAB CHEMISTRY METHOD 07/27/2024 2:15 PM [facility] Total Protein 6.0 6.0 - 8.0 g/dL LAB CHEMISTRY METHOD 07/27/2024 2:15 PM [facility] Albumin 2.5(L) 3.2 - 5.0 g/dL LAB CHEMISTRY METHOD 07/27/2024 2:15 PM [facility] Total Bilirubin 0.3 0.0 - 1.4 mg/dL LAB CHEMISTRY METHOD 07/27/2024 2:15 PM [facility] Blood Venous blood specimen / Unknown Venipuncture / Unknown 07/27/2024 8:36 AM EST 07/27/2024 11:49 AM EST us Carmela Thomas MD LAB BLOOD ORDERABLES Fin al Result [facility] [address] [place] [address], * (ABNORMAL) Complete blood count (07/27/2024 8:36 AM EST) WBC 17.3(H) 4.8 - 10.8 K/mcL LAB HEMETOLOGY METHOD 07/27/2024 1:03 PM [facility] RBC 4.00 3.80 - 4.80 M/mcL LAB HEMETOLOGY METHOD 07/27/2024 1:03 PM [facility] Hemoglobin 12.0 11.5 - 16.0 g/dL LAB HEMETOLOGY METHOD 07/27/2024 1:03 PM [facility] Hematocrit 36.8 35.0 - 47.0 % LAB HEMETOLOGY METHOD 07/27/2024 1:03 PM [facility] MCV 92.0 79.0 - 98.0 FL LAB HEMETOLOGY METHOD 07/27/2024 1:03 PM [facility] MCH 30.0 27.0 - 32.0 pcg LAB HEMETOLOGY METHOD 07/27/2024 1:03 PM EST [facility] MCHC 32.6 32.0 - 37.0 g/dL LAB HEMETOLOGY METHOD 07/27/2024 1:03 PM [facility] RDW 13.4 11.0 - 15.0 % LAB HEMETOLOGY METHOD 07/27/2024 1:03 PM [facility] Platelets 609(H) 130 - 400 K/mcL LAB HEMETOLOGY METHOD 07/27/2024 1:03 PM EST [facility] MPV 9.9 7.0 - 11.0 FL LAB HEMETOLOGY METHOD 07/27/2024 1:03 PM [facility] NRBC 0.0 <1.0 % LAB HEMETOLOGY METHOD 07/27/2024 1:03 PM [facility] NRBC Absolute 0.00 <0.10 K/mcL LAB HEMETOLOGY METHOD 07/27/2024 1:03 PM [facility] Blood Venous blood specimen / Unknown Venipuncture / Unknown 07/27/2024 8:36 AM EST 07/27/2024 11:49 AM EST us Carmela Thomas MD LAB BLOOD ORDERABLES Fin al Result [facility] [address] [place] [address], documented in this encounter Visit Diagnoses Diagnosis Heart failure, unspecified (CMS/HCC V24, CMS/HCC V28) Heart failure, unspecified documented in this encounter Care Teams Elastic Cutter Relationship Specialty Start Date End Date Sushil Stewart MD [address] [place] [address] [address] [place], [place] PCP - General Internal Medicine 10/14/17 documented as of this encounter
== END 2024-11-19 14:58 | disposition home or self-care (01) ==
LOC: HO.HOS 14:03
PROVIDERS: Visit Provider Orthopaedic Surgery
DX: M54.50 Low back pain, unspecified (principal); M79.605 Pain in left leg
CPT/HCPCS: 99213; G2211

== ENCOUNTER → 2024-11-19 14:15 | Outpatient (BNV) | payer MEDICARE, BC, SELFPAY | PROVIDERS: Visit Provider Radiology Diagnostic Radiology | DX: S72.012A Unspecified intracapsular fracture of left femur, initial encounter for closed fracture (principal) | CPT/HCPCS: 73502 ==

== ENCOUNTER 2024-11-24 15:10 | Outpatient (REF) | payer MEDICARE, BC, SELFPAY ==
--- NOTE | ~2024-11-24 | MR_ITS ---
EXAMINATION: MR LUMBAR SPINE WITHOUT CONTRAST CLINICAL INFORMATION: Low back pain radiating into the left lower extremity. COMPARISON: No prior MRI. Correlated to x-ray dated December 16, 2023. TECHNIQUE: MRI of the lumbar spine was obtained using routine sequences without contrast. FINDINGS: Last rib-bearing vertebra labeled T12. Paramagnetic field distortion secondary to metallic hardware intervertebral disc spacers L4-5 and L5-S1 levels. Bone marrow STIR signal abnormality in the superior endplate of T11. There is a 50% volume loss of the vertebral body, T11 without gross retropulsion. There is a grade 1 retrolisthesis, T12-L1. Schmorl node superior endplate of T12. Multilevel marginal osteophyte formation and disc desiccation throughout the axial skeleton. Conus medullaris ends at inferior endplate of L1 with normal signal. T12-L1: Grade 1 retrolisthesis. Broad-based disc bulging. Facet joint hypertrophy. Reduced AP diameter of the neuroforamina. No compression upon the conus medullaris. L1-2: Broad-based disc bulging. Facet joint hypertrophy. No compression upon neural elements. L2-3: Broad-based disc bulging. Facet joint ligamentum flavum hypertrophy. Reduced AP diameter of the thecal sac and neuroforamina and likely encroaching the exiting nerve roots. L3-4: Broad-based disc bulging. Facet joint and ligamentum flavum hypertrophy. CSF effacement of the thecal sac. Central spinal canal and bilateral neuroforamina stenosis encroaching the neural elements. L4-5: Postsurgical changes. No compression upon neural elements. L5-S1: Post surgical changes. No compression upon neural elements. No grouping or clumping of the neural elements of the thecal sac. No prevertebral compartment hematoma, mass or fluid collection. There is a 19 mm nodular lesion left adrenal gland. There is a 9 mm diameter of the common bile duct. MR/MR lumbar spine wo con IMPRESSION: Acute to subacute superior endplate compression fracture deformity resulting in 50% volume loss at T11. Consider osteoporosis. 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 Grade 1 retrolisthesis T12-L1 likely degenerative. 19 mm nodular lesion, left adrenal gland.. Electronically signed by: Vipul Morocho MD 11/25/2024 10:00 AM EDT
--- OUTSIDE RECORDS SUMMARY | 2024-11-24 18:18 | XMS_ITS | Encounter Summary ---
Author Organization [facility] Address [address] [place] [address] Care Team Providers Care Hand Sewer Name Role Phone Sushil Stewart MD Primary Care Provider [phone] Encounter Details Date Type Department Care Team (Late st Contact Info) Description 07/27/2024 Lab Requisition [facility] - Main Lab [address] [place] [address] Carmela Thomas MD [address] [phone] Heart failure, unspecified (CMS/HCC V24, CMS/HCC V28) [...] CHEMISTRY METHOD 07/27/2024 2:15 PM EST [facility] Potassium 3.7 3.5 - 5.5 mmol/L LAB CHEMISTRY METHOD 07/27/2024 2:15 PM [facility] Chloride 102 96 - 110 mmol/L LAB CHEMISTRY METHOD 07/27/2024 2:15 PM [facility] CO2 28 21 - 32 mmol/L LAB CHEMISTRY METHOD 07/27/2024 2:15 PM [facility] Anion Gap 10 3 - 11 LAB CHEMISTRY METHOD 07/27/2024 2:15 PM [facility] Glucose 98 70 - 100 mg/dL LAB CHEMISTRY METHOD 07/27/2024 2:15 PM [facility] BUN 13 5 - 25 mg/dL LAB CHEMISTRY METHOD 07/27/2024 2:15 PM [facility] Creatinine 0.62 0.50 - 1.10 mg/dL LAB CHEMISTRY METHOD 07/27/2024 2:15 PM [facility] eGFR 95 >=60 mL/min/1. 73m2 LAB CHEMISTRY METHOD 07/27/2024 2:15 PM [facility] Comment:Calculation based on the??Chronic Kidney Disease Epidemiology Collaboration (CKD-EPI) equation refit??without adjustment for race. BUN/Creatinine Ratio 21.0 LAB CHEMISTRY METHOD 07/27/2024 2:15 PM [facility] Calcium 9.6 8.5 - 10.5 mg/dL LAB CHEMISTRY METHOD 07/27/2024 2:15 PM [facility] AST (SGOT) 34 10 - 42 unit/L LAB CHEMISTRY METHOD 07/27/2024 2:15 PM [facility] ALT (SGPT) 81(H) 10 - 60 unit/L LAB CHEMISTRY METHOD 07/27/2024 2:15 PM [facility] Alkaline Phosphatase 189(H) 42 - 121 unit/L LAB CHEMISTRY METHOD 07/27/2024 2:15 PM [facility] Total Protein 6.0 6.0 - 8.0 g/dL LAB CHEMISTRY METHOD 07/27/2024 2:15 PM [facility] Albumin 2.5(L) 3.2 - 5.0 g/dL LAB CHEMISTRY METHOD 07/27/2024 2:15 PM [facility] Total Bilirubin 0.3 0.0 - 1.4 mg/dL LAB CHEMISTRY METHOD 07/27/2024 2:15 PM [facility] Blood Venous blood specimen / Unknown Venipuncture / Unknown 07/27/2024 8:36 AM EST 07/27/2024 11:49 AM EST us Carmela Thomas MD LAB BLOOD ORDERABLES Fin al Result [facility] [address] [place] [address], * (ABNORMAL) Complete blood count (07/27/2024 8:36 AM EST) WBC 17.3(H) 4.8 - 10.8 K/mcL LAB HEMETOLOGY METHOD 07/27/2024 1:03 PM [facility] RBC 4.00 3.80 - 4.80 M/mcL LAB HEMETOLOGY METHOD 07/27/2024 1:03 PM [facility] Hemoglobin 12.0 11.5 - 16.0 g/dL LAB HEMETOLOGY METHOD 07/27/2024 1:03 PM [facility] Hematocrit 36.8 35.0 - 47.0 % LAB HEMETOLOGY METHOD 07/27/2024 1:03 PM [facility] MCV 92.0 79.0 - 98.0 FL LAB HEMETOLOGY METHOD 07/27/2024 1:03 PM [facility] MCH 30.0 27.0 - 32.0 pcg LAB HEMETOLOGY METHOD 07/27/2024 1:03 PM EST [facility] MCHC 32.6 32.0 - 37.0 g/dL LAB HEMETOLOGY METHOD 07/27/2024 1:03 PM [facility] RDW 13.4 11.0 - 15.0 % LAB HEMETOLOGY METHOD 07/27/2024 1:03 PM [facility] Platelets 609(H) 130 - 400 K/mcL LAB HEMETOLOGY METHOD 07/27/2024 1:03 PM EST [facility] MPV 9.9 7.0 - 11.0 FL LAB HEMETOLOGY METHOD 07/27/2024 1:03 PM [facility] NRBC 0.0 <1.0 % LAB HEMETOLOGY METHOD 07/27/2024 1:03 PM [facility] NRBC Absolute 0.00 <0.10 K/mcL LAB HEMETOLOGY METHOD 07/27/2024 1:03 PM [facility] Blood Venous blood specimen / Unknown Venipuncture / Unknown 07/27/2024 8:36 AM EST 07/27/2024 11:49 AM EST us Carmela Thomas MD LAB BLOOD ORDERABLES Fin al Result [facility] [address] [place] [address], documented in this encounter Visit Diagnoses Diagnosis Heart failure, unspecified (CMS/HCC V24, CMS/HCC V28) Heart failure, unspecified documented in this encounter Care Teams Hand Sewer Relationship Specialty Start Date End Date Sushil Stewart MD [address] [place] [address] [address] [place], [place] PCP - General Internal Medicine 10/14/17 documented as of this encounter
== END 2024-11-24 15:11 | disposition home or self-care (01) ==
LOC: HO.MRI 15:10
PROVIDERS: PCP Internal Medicine; Visit Provider Orthopaedic Surgery
DX: M54.50 Low back pain, unspecified (principal); M79.605 Pain in left leg
CPT/HCPCS: 72148

== ENCOUNTER → 2024-11-24 15:19 | Outpatient (BNV) | payer MEDICARE, BC, SELFPAY | PROVIDERS: PCP Internal Medicine; Visit Provider Radiology Diagnostic Radiology | DX: M48.56XA Collapsed vertebra, not elsewhere classified, lumbar region, initial encounter for fracture (principal); M47.816 Spondylosis without myelopathy or radiculopathy, lumbar region; M99.63 Osseous and subluxation stenosis of intervertebral foramina of lumbar region; E27.9 Disorder of adrenal gland, unspecified | CPT/HCPCS: 72148 ==

== ENCOUNTER 2024-12-03 13:17 | Outpatient (AMB) | payer MEDICARE, BC, SELFPAY ==
--- NOTE | 2024-12-03 13:15 | A.SPINEOV_ITS ---
Intake Visit Reasons: spinal stenosis Intake Note: Mrs. Leslie is here today c/o low back. 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 She is a very nice 74-year-old female history of vascular dementia, history of previous L4-5, L5-S1 surgery anteriorly and posteriorly, history of osteoporosis, recently had a few falls. The last 1 I think was about a month ago or so. After that she has been having tremendous amount of pain in her left hip going down into her lateral thigh. She was seen at your office in her hardware was assessed from a previous hip fracture repair and was determined to be in good position and intact. Lumbar MRI was done to see if there is any potential source for her hip pain. This showed T12 compression fracture amongst other postsurgical and degenerative findings and she was sent today see us for evaluation. She takes oxycodone and Soma daily to help with the pain. The pain is aggravated with standing and moving around. She is a very hard time doing things like putting her shoes on because lifting her leg up hurts quite a bit. No cauda equina symptoms. PMH: History of vascular dementia, peripheral vascular disease, sinus tachycardia, emphysema, MS, stroke, hypertension, left hip ORIF, and back surgeries as outlined above Social hx: She is still vaping nicotine but does not smoke cigarettes, does not smoke marijuana use any alcohol Medications: Please see the [facility] [employer] list Allergies: Codeine and Ativan Physical exam: She has an antalgic gait but able to stand and walk in the boothe llways with a walker on her own. She has a lot of difficulty with any attempts to mobilize her manipulate her leg secondary to pain. Strength is difficult to evaluate secondary to discomfort. Reflexes are intact bilaterally at the patella. Imaging review: Lumbar MRI at [facility] shows acute to subacute compression fracture of T12, old compression fracture seen at L1. Postsurgical changes with evidence of solid fusion at L4-5 and L5-S1. No evidence of any nerve compression at these levels. There is some moderate stenosis at L3-4 disc space. There is some mild foraminal stenosis as well at this level. There are degenerative discs at L1-2 and L2-3. No significant nerve compression seen at these levels. Impression: 74-year-old female presents for evaluation of a left hip pain that happened after a fall about a month ago or so. Her hip fracture hardware from a previous surgery all appears intact. She was sent for an MRI to evaluate potential lumbar source for her pain. I reviewed her imaging with Dr. Doss. The compression fracture T12 would not explain radicular pain down the outer leg but would explain back pain. She has had chronic back pain and does not report any significant increase in that since the fall so I think this is asymptomatic largely. We do not see any evidence of any significant nerve compression throughout the rest of the lumbar spine that would explain her symptoms. No evidence of disc herniation or anything acute that is suggests a would be related to her fall. He does not think there is any indication for surgery on his end. A lot of her pain is present with manual manipulation of her leg as well as internal and external rotation so maybe she has some kind of soft tissue injury to this area that is limiting her. I reassured her this may just go away in time. Thank you for allowing us to care for your patient. The total time spent with this visit with this patient was 45 minutes reviewing history, physical exam, lumbar imaging review, and implementation of treatment plan or further diagnostic testing Felipe Doss MD,PhD [facility] Coding Level of Care Code New Pt Level 4 (37721) Diagnoses Left hip pain M25.552
== END 2024-12-03 14:30 | disposition home or self-care (01) ==
PROVIDERS: PCP Internal Medicine; Referring Provider Orthopaedic Surgery; Visit Provider Physician Assistant
DX: M25.552 Pain in left hip (principal)
CPT/HCPCS: 99204

== ENCOUNTER → 2024-12-03 13:17 | Outpatient (BNVA) | payer MEDICARE, BC, SELFPAY | PROVIDERS: PCP Internal Medicine; Referring Provider Orthopaedic Surgery; Visit Provider Physician Assistant | DX: M25.552 Pain in left hip (principal) | CPT/HCPCS: 99202 ==

== ENCOUNTER 2025-02-16 15:02 | Outpatient (AMB) | payer MEDICARE, BC, SELFPAY ==
--- NOTE | 2025-02-16 15:12 | MHC.OFFVIS ---
Vital Signs 02/16/25 15:14 Height 5 ft 1 in Weight 125 lb BMI 23.6 Intake Visit Reasons: OV- MRI Review of the Lumbar Spine,11/24/24. Intake Note: Isabela is a 74 year old female who presents with complaints of progressively worsening low back pain which radiates into her left leg as well as intermittent discomfort in her left hip after undergoing closed reduction and percutaneous pinning of her left femoral neck fracture on 07/12/2024. She denies any fevers or chills. The patient states that she has undergone 3 low back surgeries in the past. The most recent surgery was many years ago. She has seen a chiropractor which seemed to aggravate her symptoms. She has taken Soma in the past which has given her mild relief. She has tried Tylenol and anti-inflammatory medicines which gave her minimal relief. The patient states that several weeks ago she did have weakness in her left leg and fell to the ground. She states that after the fall her back pain did increase. She denies any increase in her left hip discomfort. Allergies codeine (CODEINE) Allergy (Unknown, Verified 02/16/25 15:15) Hives lorazepam (From Ativan) Adverse Reaction (Verified 02/16/25 15:15) Hallucinations Medication List - Last Reconciled 02/16/25 by Gino Rodriguez MD amlodipine 5 mg See Protocol PO DAILY aspirin 81 mg PO DAILY bisacodyl 10 mg [place] NEEDED PRN luzpenznes-jjuqfkcpsjwqu-caos 50-300-40 mg 1 cap PO Q24H PRN carisoprodol (Soma) 350 mg PO Q12H PRN cholecalciferol (vitamin D3) 50 mcg PO DAILY clopidogrel 75 mg PO DAILY cyclobenzaprine 10 mg PO DAILY PRN erenumab-aooe (Aimovig Autoinjector) 140 mg subcut Q28D esomeprazole magnesium 40 mg PO DAILY@0630 fluticasone propionate 50 mcg/actuation 1 spray intranasal Q12H PRN avwupnwpsca-qlvlyxvvb-dogxzthe 100-62.5-25 mcg (Trelegy Ellipta) 1 ea inhalation DAILY immun glob G(IgG)-gly-IgA ov50 10 gram/50 mL (20 %) (Cuvitru) 50 mL subcut MCKENZIE@0900 ipratropium-albuterol 0.5 mg-3 mg(2.5 mg base)/3 mL 3 mL inhalation QID PRN levalbuterol HCl 1.25 mg (0.5 mL) inhalation TID PRN levofloxacin 500 mg PO Q24H losartan 50 mg See Protocol PO BEDTIME Held on 09/24/24. Instructions: Monitor blood pressure at home before restarting it magnesium hydroxide (Milk of Magnesia) 30 mL PO NEEDED PRN metoprolol tartrate 25 mg See Protocol PO BID nicotine 7 mg transdermal DAILY nystatin 400,000 units (4 mL) PO QID 7 days ocrelizumab 600 mg IV [id number] olanzapine 5 mg PO BID ondansetron HCl 4 mg PO Q8H PRN oxycodone-acetaminophen 10-325 mg 1 tab PO Q4-6H roflumilast 500 mcg PO DAILY rosuvastatin 40 mg PO BEDTIME sertraline 50 mg PO DAILY trazodone 50 mg PO BEDTIME PRN PFSH Medical History MDD (major depressive disorder), recurrent episode Essential hypertension Leukocytosis History of CAD (coronary artery disease) Peripheral vascular disease Chronic back pain GERD (gastroesophageal reflux disease) High cholesterol HTN (hypertension) Immune disorder COPD (chronic obstructive pulmonary disease) Multiple sclerosis Surgical History History of angioplasty History of heart artery stent Social History Household Members: Significant Other Housing: Apartment Do you presently have visiting nurse or other home services: Yes Alcohol intake: never Comment: 5 miinute checks Patient Tobacco Use Status: Former Tobacco user Tobacco use type: Cigarette Cigarette Packs Per Day: 1 Cigarettes Per Day: 20.0 Advance Directives Date on File: 11/22/22 service: No Current occupational status: retired Sexual orientation: Straight/Heterosexual Physical Exam Vital Signs: BMI result Body Mass Index 23.6 Extrem Other: Left hip examination shows that the surgical incision is well healed, no erythema, mild discomfort with range of motion, no tenderness over her bursa Results Reviewed Results Reviewed: X-rays of the patient's left hip show 3 cannulated screws in good position with no signs of loosening, bony trabeculae crossing her femoral neck fracture site, mild to moderate degenerative changes Assessment & Plan Assessment & Plan (1) Left hip pain: Code(s): M25.552 - Pain in left hip Category: Medical (2) Low back pain radiating to left leg: Code(s): M54.50 - Low back pain, unspecified; M79.605 - Pain in left leg Category: Medical Plan Ms. Leslie presents with left hip pain due to degenerative joint disease as well as low back pain which radiates into her left leg due to lumbar stenosis. At this point I am not sure if the majority of the patient's symptoms are coming from her lumbar spine pathology or hip pathology. Thus, I will arrange for her to have an evaluation by Dr. Stratton in our pain management department. The patient may be a candidate for cortisone injection therapy into her lumbar spine and/or left hip joint which could be of diagnostic and possibly therapeutic value. Feel free to call me at any time should questions regarding her orthopedic management arise. I spent 20 minutes in reviewing the patient's records and imaging studies, seeing the patient and documenting in the medical record. Orders: Referrals Pain Management Referral M25.552 - Pain in left hip, M54.50 - Low back pain, unspecified, M79.605 - Pain in left leg Coding Level of Care Code Est Pt Level 3 (80467) Complex EM visit Add On G2211 Diagnoses Left hip pain M25.552 Low back pain radiating to left leg M54.50; M79.605
[2025-02-16 15:14] VITALS: BMI 23.6
--- OUTSIDE RECORDS SUMMARY | 2025-02-16 16:15 | XMS_ITS | Clinical Summary ---
Author Organization [facility] Address [address] [place] [address] Phone Care Team Providers Care Document Controller Name Role Phone Sushil Stewart MD Primary Care Provider [phone] Surgical History Surgery Date Site/Laterality Comments BACK SURGERY PROCEDURE: HISTORICAL BACK SURGERY; COMMENT: x 3 OTHER SURGICAL HISTORY PROCEDURE: HISTORY OTHER; COMMENT: sinus surgery HYSTERECTOMY PROCEDURE: HISTORICAL HYSTERECTOMY CHOLECYSTECTOMY PROCEDURE: HISTORICAL CHOLECYSTECTOMY ANGIOPLASTY PROCEDURE: HISTORICAL ANGIOPLASTY W/STENT OTHER SURGICAL HISTORY 11/03/2021 PROCEDURE: [place] ARTHRD ANT INTERBODY MIN DSC CRV BELOW C2; COMMENT: C5-6 ACDF, Dr. Doss Medical History Medical History Date Comments COPD (chronic obstructive pu lmonary disease) ([facility] V24, [facility] V28) 04/11/2018 DX:COPD (chronic o bstructive pulmonary disease) ([facility]) GERD (gastroesophageal reflu x disease) 04/11/2018 DX:GERD [...] (2 of 2 - PCV) 06/24/2020 06/24/2019 Cholesterol Screening (Lipid Panel) 05/19/2022 Colorectal Cancer Screening: Colonoscopy 05/19/2022 Falls Risk Assessment 05/19/2022 Hepatitis C Screening 05/19/2022 Medicare Annual Wellness Visit 05/19/2022 Osteoporosis Screening (Bone Density Screening) 05/19/2022 Social Influencers of Health Screening 05/19/2022 Depression Screening 06/17/2024 COVID-19 Vaccine ( season) 2025 09/15/2020, 08/25/2020 Influenza Vaccine (#1) 2025 05/09/2019 Hypertension/CHF/CAD Annual BMP Blood Test [...] 9:34 AM EST Heart failure, unspecified (CMS/HCC) from Last 3 Months or Most Recently Relevant to Health Maintenance Results * (ABNORMAL) Comprehensive metabolic panel (08/17/2024 [...] PM [facility] Comment:Calculation based on the Chronic Kidney Disease Epidemiology Collaboration (CKD-EPI) equation refit without adjustment for race. BUN/Creatinine Ratio 20.0 LAB CHEMISTRY METHOD 08/17/2024 2:03 PM [facility] Calcium 9.8 8.5 - 10.5 mg/dL LAB CHEMISTRY METHOD 08/17/2024 2:03 PM [facility] AST (SGOT) 23 10 - 42 unit/L LAB CHEMISTRY METHOD 08/17/2024 2:03 PM [facility] ALT (SGPT) 70(H) 10 - 60 unit/L LAB CHEMISTRY METHOD 08/17/2024 2:03 PM [facility] Alkaline Phosphatase 177(H) 42 - [...] MD LAB BLOOD ORDERABLES Fin al Result [facility] [address] [place] [address], from Last 3 Months or Most Recently Relevant to Health Maintenance Insurance MEDICARE Care Teams Document Controller Relationship Specialty Start Date End Date Sushil Stewart MD [address] [place] [address] Rd [address] [place], [place] PCP - General Internal Medicine 10/14/17
--- OUTSIDE RECORDS SUMMARY | 2025-02-16 16:15 | XMS_ITS | Encounter Summary ---
Author Organization [facility] Address [address] [place] [address] Care Team Providers Care Radio Television Technical Director Name Role Phone Sushil Stewart MD Primary Care Provider [phone] Encounter Details Date Type Department Care Team (Late st Contact Info) Description 08/01/2024 Lab Requisition [facility] - Main Lab [address] [place] [address] Carmela Thomas MD [address] [phone] Heart failure, unspecified (CMS/HCC V24, CMS/HCC V28) [...] CHEMISTRY METHOD 08/03/2024 11:51 AM EST [facility] Potassium 3.2(L) 3.5 - 5.5 mmol/L LAB CHEMISTRY METHOD 08/03/2024 11:51 AM [facility] Chloride 101 96 - 110 mmol/L LAB CHEMISTRY METHOD 08/03/2024 11:51 AM [facility] CO2 33(H) 21 - 32 mmol/L LAB CHEMISTRY METHOD 08/03/2024 11:51 AM [facility] Anion Gap 6 3 - 11 LAB CHEMISTRY METHOD 08/03/2024 11:51 AM [facility] Glucose 87 70 - 100 mg/dL LAB CHEMISTRY METHOD 08/03/2024 11:51 AM [facility] BUN 16 5 - 25 mg/dL LAB CHEMISTRY METHOD 08/03/2024 11:51 AM [facility] Creatinine 0.62 0.50 - 1.10 mg/dL LAB CHEMISTRY METHOD 08/03/2024 11:51 AM [facility] eGFR 95 >=60 mL/min/1. 73m2 LAB CHEMISTRY METHOD 08/03/2024 11:51 AM [facility] Comment:Calculation based on the Chronic Kidney Disease Epidemiology Collaboration (CKD-EPI) equation refit without adjustment for race. BUN/Creatinine Ratio 25.8 LAB CHEMISTRY METHOD 08/03/2024 11:51 AM [facility] Calcium 9.4 8.5 - 10.5 mg/dL LAB CHEMISTRY METHOD 08/03/2024 11:51 AM [facility] AST (SGOT) 37 10 - 42 unit/L LAB CHEMISTRY METHOD 08/03/2024 11:51 AM [facility] ALT (SGPT) 63(H) 10 - 60 unit/L LAB CHEMISTRY METHOD 08/03/2024 11:51 AM [facility] Alkaline Phosphatase 193(H) 42 - 121 unit/L LAB CHEMISTRY METHOD 08/03/2024 11:51 AM [facility] Total Protein 5.9(L) 6.0 - 8.0 g/dL LAB CHEMISTRY METHOD 08/03/2024 11:[address] [facility] Albumin 3.0(L) 3.2 - 5.0 g/dL LAB CHEMISTRY METHOD 08/03/2024 11:51 AM [facility] Total Bilirubin 0.3 0.0 - 1.4 mg/dL LAB CHEMISTRY METHOD 08/03/2024 11:51 AM [facility] Blood Venous blood specimen / Unknown Venipuncture / Unknown 08/03/2024 7:22 AM EST 08/03/2024 10:51 AM EST us Carmela Thomas MD LAB BLOOD ORDERABLES Fin al Result [facility] [address] [place] [address], * (ABNORMAL) Complete blood count (08/03/2024 7:22 AM EST) WBC 11.0(H) 4.8 - 10.8 K/mcL LAB HEMETOLOGY METHOD 08/03/2024 11:15 AM [facility] RBC 3.60(L) 3.80 - 4.80 M/mcL LAB HEMETOLOGY METHOD 08/03/2024 11:15 AM [facility] Hemoglobin 10.9(L) 11.5 - 16.0 g/dL LAB HEMETOLOGY METHOD 08/03/2024 11:15 AM [facility] Hematocrit 33.8(L) 35.0 - 47.0 % LAB HEMETOLOGY METHOD 08/03/2024 11:15 AM [facility] MCV 94.9 79.0 - 98.0 FL LAB HEMETOLOGY METHOD 08/03/2024 11:15 AM [facility] MCH 30.6 27.0 - 32.0 pcg LAB HEMETOLOGY METHOD 08/03/2024 11:[address] [facility] MCHC 32.2 32.0 - 37.0 g/dL LAB HEMETOLOGY METHOD 08/03/2024 11:15 AM [facility] RDW 13.5 11.0 - 15.0 % LAB HEMETOLOGY METHOD 08/03/2024 11:15 AM [facility] Platelets 347 130 - 400 K/mcL LAB HEMETOLOGY METHOD 08/03/2024 11:15 AM [facility] MPV 10.4 7.0 - 11.0 FL LAB HEMETOLOGY METHOD 08/03/2024 11:15 AM [facility] NRBC 0.0 <1.0 % LAB HEMETOLOGY METHOD 08/03/2024 11:15 AM [facility] NRBC Absolute 0.00 <0.10 K/mcL LAB HEMETOLOGY METHOD 08/03/2024 11:15 AM [facility] Blood Venous blood specimen / Unknown Venipuncture / Unknown 08/03/2024 7:22 AM EST 08/03/2024 10:51 AM EST us Carmela Thomas MD LAB BLOOD ORDERABLES Fin al Result [facility] [address] [place] [address], documented in this encounter Visit Diagnoses Diagnosis Heart failure, unspecified (CMS/HCC V24, CMS/HCC V28) Heart failure, unspecified documented in this encounter Care Teams Radio Television Technical Director Relationship Specialty Start Date End Date Sushil Stewart MD [address] [place] [address] [address] [place], [place] PCP - General Internal Medicine 10/14/17 documented as of this encounter
--- OUTSIDE RECORDS SUMMARY | 2025-02-16 16:15 | XMS_ITS | Encounter Summary ---
Author Organization [facility] Address [address] [place] [address] Care Team Providers Care Wire Communications Engineer Name Role Phone Sushil Stewart MD Primary Care Provider Encounter Details Date Type Department Care Team (Late st Contact Info) Description 08/23/2024 Lab Requisition [facility] - Main Lab 299 [facility] [place] [address] Carmela Thomas MD [address] [address] Heart failure, unspecified (CMS/HCC V24, CMS/HCC V28) [...] unspecified documented in this encounter Care Teams Wire Communications Engineer Relationship Specialty Start Date End Date Sushil Stewart MD [address] [place], [place] PCP - General Internal Medicine 10/14/17 documented as of this encounter
--- OUTSIDE RECORDS SUMMARY | 2025-02-16 16:15 | XMS_ITS | Encounter Summary ---
Author Organization [facility] Address [address] [place] [address] Care Team Providers Care Desk Lieutenant Name Role Phone Sushil Stewart MD Primary Care Provider [phone] Encounter Details Date Type Department Care Team (Late st Contact Info) Description 08/16/2024 Lab Requisition [facility] - Main Lab [address] [place] [address] Carmela Thomas MD [address] [phone] Heart failure, unspecified (CMS/HCC V24, CMS/HCC V28) [...] LAB CHEMISTRY METHOD 08/17/2024 2:03 PM EST [facility] Potassium 3.7 3.5 - 5.5 [...] PM [facility] Comment:Calculation based on the Chronic [...] Result [facility] [address] [place] [address], * (ABNORMAL) Complete blood count (08/17/2024 9:34 [...] LAB HEMETOLOGY METHOD 08/17/2024 1:30 PM EST [facility] MCHC 31.1(L) 32.0 - 37.0 g/dL LAB HEMETOLOGY METHOD 08/17/2024 1:30 PM [facility] RDW 14.0 11.0 - 15.0 % LAB HEMETOLOGY METHOD 08/17/2024 1:30 PM [facility] Platelets 427(H) 130 - 400 K/mcL LAB HEMETOLOGY METHOD 08/17/2024 1:30 PM [facility] MPV 10.3 7.0 - 11.0 [...] MD LAB BLOOD ORDERABLES Fin al Result Performing Organization Address City/State/[facility] Co de Phone Number [facility] [address] [place] [address], documented in this encounter Visit Diagnoses Diagnosis Heart failure, unspecified (CMS/HCC V24, CMS/HCC V28) Heart failure, unspecified documented in this encounter Care Teams Desk Lieutenant Relationship Specialty Start Date End Date Sushil Stewart MD [address] [place] [address] [address] [place], [place] PCP - General Internal Medicine 10/14/17 documented as of this encounter
--- OUTSIDE RECORDS SUMMARY | 2025-02-16 16:15 | XMS_ITS | Encounter Summary ---
Author Organization [facility] Address [address] [place] [address] Care Team Providers Care Tax Assessor Name Role Phone Sushil Stewart MD Primary Care Provider [phone] Encounter Details Date Type Department Care Team (Late st Contact Info) Description 08/08/2024 Lab Requisition [facility] - Main Lab [address] [place] [address] Carmela Thomas MD [address] [phone] Heart failure, unspecified (CMS/HCC V24, CMS/HCC V28) [...] CHEMISTRY METHOD 08/10/2024 12:42 PM EST [facility] Potassium 3.3(L) 3.5 - 5.5 mmol/L [...] [facility] Comment:Calculation based on the Chronic Kidney Disease Epidemiology Collaboration (CKD-EPI) equation refit without adjustment for race. BUN/Creatinine Ratio 29.0 LAB [...] g/dL LAB CHEMISTRY METHOD 08/10/2024 12:42 PM EST [facility] Albumin 2.7(L) 3.2 - 5.0 g/dL LAB CHEMISTRY METHOD 08/10/2024 12:42 PM [facility] Total Bilirubin 0.3 0.0 - 1.4 mg/dL LAB CHEMISTRY METHOD 08/10/2024 12:42 PM [facility] Blood Venous blood specimen / Unknown Venipuncture / Unknown 08/10/2024 8:28 AM EST 08/10/2024 11:20 AM EST us Carmela Thomas MD LAB BLOOD ORDERABLES Fin al Result [facility] [address] [place] [address], * (ABNORMAL) Complete blood count (08/10/2024 8:28 [...] LAB HEMETOLOGY METHOD 08/10/2024 1:20 PM EST [facility] MCHC 31.7(L) 32.0 - 37.0 g/dL LAB HEMETOLOGY METHOD 08/10/2024 1:20 PM [facility] RDW 14.2 11.0 - 15.0 % LAB HEMETOLOGY METHOD 08/10/2024 1:20 PM [facility] Platelets 280 130 - 400 K/mcL LAB HEMETOLOGY METHOD 08/10/2024 1:20 PM [facility] MPV 10.2 7.0 - [...] MD LAB BLOOD ORDERABLES Fin al Result [facility] [address] [place] [address], documented in this encounter Visit Diagnoses Diagnosis Heart failure, unspecified (CMS/HCC V24, CMS/HCC V28) Heart failure, unspecified documented in this encounter Care Teams Tax Assessor Relationship Specialty Start Date End Date Sushil Stewart MD [address] [place] [address] [address] [place], [place] PCP - General Internal Medicine 10/14/17 documented as of this encounter
--- OUTSIDE RECORDS SUMMARY | 2025-02-16 16:15 | XMS_ITS | Encounter Summary ---
Author Organization [facility] Address [address] [place] [address] Care Team Providers Care Surgical Specialist Name Role Phone Sushil Stewart MD Primary Care Provider [phone] Encounter Details Date Type Department Care Team (Late st Contact Info) Description 07/27/[address] [facility] - Main Lab [address] [place] [address] Carmela Thomas MD [address] [phone] Heart failure, unspecified (CMS/HCC V24, CMS/HCC V28) [...] CHEMISTRY METHOD 07/27/2024 2:15 PM EST [facility] Potassium 3.7 3.5 - 5.5 mmol/L LAB CHEMISTRY METHOD 07/27/2024 2:15 PM [facility] Chloride 102 96 - 110 mmol/L LAB CHEMISTRY METHOD 07/27/2024 2:15 PM [facility] CO2 28 21 - 32 mmol/L LAB CHEMISTRY METHOD 07/27/2024 2:15 PM [facility] Anion Gap 10 3 - 11 LAB CHEMISTRY METHOD 07/27/2024 2:15 PM [facility] Glucose 98 70 - 100 mg/dL LAB CHEMISTRY METHOD 07/27/2024 2:15 PM [facility] BUN 13 5 - 25 mg/dL LAB CHEMISTRY METHOD 07/27/2024 2:15 PM [facility] Creatinine 0.62 0.50 - 1.10 mg/dL LAB CHEMISTRY METHOD 07/27/2024 2:15 PM [facility] eGFR 95 >=60 mL/min/1. 73m2 LAB CHEMISTRY METHOD 07/27/2024 2:15 PM [facility] Comment:Calculation based on the Chronic Kidney Disease Epidemiology Collaboration (CKD-EPI) equation refit without adjustment for race. BUN/Creatinine Ratio 21.0 LAB CHEMISTRY METHOD 07/27/2024 2:15 PM [facility] Calcium 9.6 8.5 - 10.5 mg/dL LAB CHEMISTRY METHOD 07/27/2024 2:15 PM [facility] AST (SGOT) 34 10 - 42 unit/L LAB CHEMISTRY METHOD 07/27/2024 2:15 PM [facility] ALT (SGPT) 81(H) 10 - 60 unit/L LAB CHEMISTRY METHOD 07/27/2024 2:15 PM [facility] Alkaline Phosphatase 189(H) 42 - 121 unit/L LAB CHEMISTRY METHOD 07/27/2024 2:15 PM [facility] Total Protein 6.0 6.0 - 8.0 g/dL LAB CHEMISTRY METHOD 07/27/2024 2:15 PM [facility] Albumin 2.5(L) 3.2 - 5.0 g/dL LAB CHEMISTRY METHOD 07/27/2024 2:15 PM [facility] Total Bilirubin 0.3 0.0 - 1.4 mg/dL LAB CHEMISTRY METHOD 07/27/2024 2:15 PM [facility] Blood Venous blood specimen / Unknown Venipuncture / Unknown 07/27/2024 8:36 AM EST 07/27/2024 11:49 AM EST us Carmela Thomas MD LAB BLOOD ORDERABLES Fin al Result [facility] [address] [place] [address], * (ABNORMAL) Complete blood count (07/27/2024 8:36 AM EST) WBC 17.3(H) 4.8 - 10.8 K/mcL LAB HEMETOLOGY METHOD 07/27/2024 1:03 PM [facility] RBC 4.00 3.80 - 4.80 M/mcL LAB HEMETOLOGY METHOD 07/27/2024 1:03 PM [facility] Hemoglobin 12.0 11.5 - 16.0 g/dL LAB HEMETOLOGY METHOD 07/27/2024 1:03 PM [facility] Hematocrit 36.8 35.0 - 47.0 % LAB HEMETOLOGY METHOD 07/27/2024 1:03 PM [facility] MCV 92.0 79.0 - 98.0 FL LAB HEMETOLOGY METHOD 07/27/2024 1:03 PM [facility] MCH 30.0 27.0 - 32.0 pcg LAB HEMETOLOGY METHOD 07/27/2024 1:03 PM EST [facility] MCHC 32.6 32.0 - 37.0 g/dL LAB HEMETOLOGY METHOD 07/27/2024 1:03 PM [facility] RDW 13.4 11.0 - 15.0 % LAB HEMETOLOGY METHOD 07/27/2024 1:03 PM [facility] Platelets 609(H) 130 - 400 K/mcL LAB HEMETOLOGY METHOD 07/27/2024 1:03 PM [facility] MPV 9.9 7.0 - 11.0 FL LAB HEMETOLOGY METHOD 07/27/2024 1:03 PM [facility] NRBC 0.0 <1.0 % LAB HEMETOLOGY METHOD 07/27/2024 1:03 PM [facility] NRBC Absolute 0.00 <0.10 K/mcL LAB HEMETOLOGY METHOD 07/27/2024 1:03 PM [facility] Blood Venous blood specimen / Unknown Venipuncture / Unknown 07/27/2024 8:36 AM EST 07/27/2024 11:49 AM EST us Carmela Thomas MD LAB BLOOD ORDERABLES Fin al Result [facility] [address] [place] [address], documented in this encounter Visit Diagnoses Diagnosis Heart failure, unspecified (CMS/HCC V24, CMS/HCC V28) Heart failure, unspecified documented in this encounter Care Teams Surgical Specialist Relationship Specialty Start Date End Date Sushil Stewart MD [address] [place] [address] [address] [place], [place] PCP - General Internal Medicine 10/14/17 documented as of this encounter
== END 2025-02-16 15:33 | disposition home or self-care (01) ==
LOC: HO.HOS 15:03
PROVIDERS: PCP Internal Medicine; Visit Provider Orthopaedic Surgery
DX: M25.552 Pain in left hip (principal); M54.50 Low back pain, unspecified; M79.605 Pain in left leg
CPT/HCPCS: 99213; G2211

== ENCOUNTER → 2025-02-16 15:02 | Outpatient (BNVA) | payer MEDICARE, BC, SELFPAY | PROVIDERS: PCP Internal Medicine; Visit Provider Orthopaedic Surgery | DX: M54.50 Low back pain, unspecified (principal); G89.29 Other chronic pain; M79.605 Pain in left leg; M25.552 Pain in left hip | CPT/HCPCS: 99212 ==

== ENCOUNTER 2025-03-02 13:19 | Outpatient (REF) | payer MEDICARE, BC, SELFPAY ==
--- NOTE | ~2025-03-02 | MM_ITS ---
EXAMINATION: DXA BONE DENSITY AXIAL HISTORY: OSTEOPOROSIS TECHNIQUE: griddig Dual energy absorptiometry (DEXA) of the lumbar spine, total right hip, and femoral neck was performed. COMPARISON: Comparison is made with the prior examination dated 04/26/2022. FINDINGS: The bone mineral density of the lumbar spine is 0.988 g/cm2, corresponding to a T-score of -1.5, and a Z-score of 0.5. This is indicative of osteopenia. This represents a BMD change of 1.9% compared to the prior exam. This is not statistically significant. The bone mineral density of the right total hip is 0.613 g/cm2, corresponding to a T-score of -3.1, and a Z-score of -1.3. This is indicative of osteoporosis. This represents a BMD change of -9.7% compared to the prior exam. This is statistically significant. The bone mineral density of the right femoral neck is 0.667 g/cm2, corresponding to a T-score of -2.7, and a Z-score of -0.6. This is indicative of osteoporosis. This represents a BMD change of 1.4% compared to the prior exam. MM/XR DEXA axial skeleton IMPRESSION: Based on bone mineral density, and according to World Health Organization (WHO) criteria, the diagnosis is consistent with osteoporosis. Statistically, 68% of repeat scans fall within 1 SD (+/- 0.010 g/cm2 for AP spine L1-L4) and 1 SD (+/- 0.012 g/cm2 for femur total) FRAX is a trademark of the [employer] Metabolic Bone Disease, a World Health Organization (WHO) Collaborating Center. Electronically signed by: Morgan Chapin MD 03/02/2025 01:52 PM EDT
--- OUTSIDE RECORDS SUMMARY | 2025-03-02 17:14 | XMS_ITS | Encounter Summary ---
Author Organization [facility] Address [address] [place] [address] Care Team Providers Care Facility Designer Name Role Phone Sushil Stewart MD Primary Care Provider [phone] Encounter Details Date Type Department Care Team (Late st Contact Info) Description 07/27/2024 Lab Requisition [facility] - Main Lab [address] [place] [address] Carmela Thomas MD [address] [phone] Heart failure, unspecified (CMS/HCC V24, CMS/HCC V28) [...] CHEMISTRY METHOD 07/27/2024 2:15 PM EST [facility] Potassium 3.7 3.5 - 5.5 mmol/L [...] [facility] Comment:Calculation based on the Chronic [...] 2:15 PM [facility] Total Protein 6.0 6.0 - 8.0 g/dL LAB CHEMISTRY METHOD 07/27/2024 2:15 PM [facility] Albumin 2.5(L) 3.2 - 5.0 g/dL LAB CHEMISTRY METHOD 07/27/2024 2:15 PM [facility] Total Bilirubin 0.3 0.0 - 1.4 mg/dL LAB CHEMISTRY METHOD 07/27/2024 2:15 PM [facility] Blood Venous blood specimen / Unknown Venipuncture / Unknown 07/27/2024 8:36 AM EST 07/27/2024 11:49 AM EST us Carmela Thomas MD LAB BLOOD ORDERABLES Fin al Result [facility] [address] [place] [address], * (ABNORMAL) Complete blood count (07/27/2024 8:36 [...] LAB HEMETOLOGY METHOD 07/27/2024 1:03 PM EST [facility] MCHC 32.6 32.0 - 37.0 g/dL LAB HEMETOLOGY METHOD 07/27/2024 1:03 PM [facility] RDW 13.4 11.0 - 15.0 % LAB HEMETOLOGY METHOD 07/27/2024 1:03 PM [facility] Platelets 609(H) 130 - 400 K/mcL LAB HEMETOLOGY METHOD 07/27/2024 1:03 PM [facility] MPV 9.9 7.0 - 11.0 [...] MD LAB BLOOD ORDERABLES Fin al Result [facility] [address] [place] [address], documented in this encounter Visit Diagnoses Diagnosis Heart failure, unspecified (CMS/HCC V24, CMS/HCC V28) Heart failure, unspecified documented in this encounter Care Teams Facility Designer Relationship Specialty Start Date End Date Sushil Stewart MD [address] [place] [address] [address] [place], [place] PCP - General Internal Medicine 10/14/17 documented as of this encounter
--- OUTSIDE RECORDS SUMMARY | 2025-03-02 17:14 | XMS_ITS | Encounter Summary ---
Author Organization [facility] Address [address] [place] [address] Care Team Providers Care Short Order Fry Cook Name Role Phone Sushil Stewart MD Primary Care Provider Encounter Details Date Type Department Care Team (Late st Contact Info) Description 08/23/2024 Lab Requisition [facility] - Main Lab [address] [facility] [place] [address] Carmela Thomas MD [address] [address] Heart failure, unspecified (CMS/HCC V24, CMS/HCC V28) [...] unspecified documented in this encounter Care Teams Short Order Fry Cook Relationship Specialty Start Date End Date Sushil Stewart MD [address] [place], [place] PCP - General Internal Medicine 10/14/17 documented as of this encounter
--- OUTSIDE RECORDS SUMMARY | 2025-03-02 17:14 | XMS_ITS | Encounter Summary ---
Author Organization [facility] Address [address] [place] [address] Care Team Providers Care Language Specialist Name Role Phone Sushil Stewart MD Primary Care Provider [phone] Encounter Details Date Type Department Care Team (Late st Contact Info) Description 08/16/2024 Lab Requisition [facility] - Main Lab [address] [place] [address] Carmela Thomas MD [address] [phone] Heart failure, unspecified (CMS/HCC V24, CMS/HCC V28) [...] CHEMISTRY METHOD 08/17/2024 2:03 PM EST [facility] Potassium 3.7 3.5 - 5.5 mmol/L LAB CHEMISTRY METHOD 08/17/2024 2:03 PM [facility] Chloride 102 96 - 110 mmol/L LAB CHEMISTRY METHOD 08/17/2024 2:03 PM [facility] CO2 30 21 - 32 mmol/L LAB CHEMISTRY METHOD 08/17/2024 2:03 PM [facility] Anion Gap 7 3 - 11 LAB CHEMISTRY METHOD 08/17/2024 2:03 PM [facility] Glucose 157(H) 70 - 100 mg/dL LAB CHEMISTRY METHOD 08/17/2024 2:03 PM [facility] BUN 13 5 - 25 mg/dL LAB CHEMISTRY METHOD 08/17/2024 2:03 PM [facility] Creatinine 0.65 0.50 - 1.10 mg/dL LAB CHEMISTRY METHOD 08/17/2024 2:03 PM [facility] eGFR 94 >=60 mL/min/1. 73m2 LAB CHEMISTRY METHOD 08/17/2024 2:03 PM [facility] Comment:Calculation based on the Chronic Kidney Disease Epidemiology Collaboration (CKD-EPI) equation refit without adjustment for race. BUN/Creatinine Ratio 20.0 LAB CHEMISTRY METHOD 08/17/2024 2:03 PM [facility] Calcium 9.8 8.5 - 10.5 mg/dL LAB CHEMISTRY METHOD 08/17/2024 2:03 PM [facility] AST (SGOT) 23 10 - 42 unit/L LAB CHEMISTRY METHOD 08/17/2024 2:03 PM [facility] ALT (SGPT) 70(H) 10 - 60 unit/L LAB CHEMISTRY METHOD 08/17/2024 2:03 PM [facility] Alkaline Phosphatase 177(H) 42 - 121 unit/L LAB CHEMISTRY METHOD 08/17/2024 2:03 PM [facility] Total Protein 6.0 6.0 - 8.0 g/dL LAB CHEMISTRY METHOD 08/17/2024 2:03 PM [facility] Albumin 2.9(L) 3.2 - 5.0 g/dL LAB CHEMISTRY METHOD 08/17/2024 2:03 PM [facility] Total Bilirubin 0.2 0.0 - 1.4 mg/dL LAB CHEMISTRY METHOD 08/17/2024 2:03 PM [facility] Blood Venous blood specimen / Unknown Venipuncture / Unknown 08/17/2024 9:34 AM EST 08/17/2024 11:30 AM EST us Carmela Thomas MD LAB BLOOD ORDERABLES Fin al Result [facility] [address] [place] [address], * (ABNORMAL) Complete blood count (08/17/2024 9:34 AM EST) WBC 13.9(H) 4.8 - 10.8 K/mcL LAB HEMETOLOGY METHOD 08/17/2024 1:30 PM [facility] RBC 3.10(L) 3.80 - 4.80 M/mcL LAB HEMETOLOGY METHOD 08/17/2024 1:30 PM [facility] Hemoglobin 9.4(L) 11.5 - 16.0 g/dL LAB HEMETOLOGY METHOD 08/17/2024 1:30 PM [facility] Hematocrit 30.2(L) 35.0 - 47.0 % LAB HEMETOLOGY METHOD 08/17/2024 1:30 PM [facility] MCV 97.7 79.0 - 98.0 FL LAB HEMETOLOGY METHOD 08/17/2024 1:30 PM [facility] MCH 30.4 27.0 - 32.0 pcg LAB HEMETOLOGY METHOD 08/17/2024 1:30 PM EST [facility] MCHC 31.1(L) 32.0 - 37.0 g/dL LAB HEMETOLOGY METHOD 08/17/2024 1:30 PM [facility] RDW 14.0 11.0 - 15.0 % LAB HEMETOLOGY METHOD 08/17/2024 1:30 PM [facility] Platelets 427(H) 130 - 400 K/mcL LAB HEMETOLOGY METHOD 08/17/2024 1:30 PM [facility] MPV 10.3 7.0 - 11.0 FL LAB HEMETOLOGY METHOD 08/17/2024 1:30 PM [facility] NRBC 0.0 <1.0 % LAB HEMETOLOGY METHOD 08/17/2024 1:30 PM [facility] NRBC Absolute 0.00 <0.10 K/mcL LAB HEMETOLOGY METHOD 08/17/2024 1:30 PM [facility] Blood Venous blood specimen / Unknown Venipuncture / Unknown 08/17/2024 9:34 AM EST 08/17/2024 11:30 AM EST us Carmela Thomas MD LAB BLOOD ORDERABLES Fin al Result Performing Organization Address City/State/[facility] Co de Phone Number [facility] [address] [place] [address], documented in this encounter Visit Diagnoses Diagnosis Heart failure, unspecified (CMS/HCC V24, CMS/HCC V28) Heart failure, unspecified documented in this encounter Care Teams Language Specialist Relationship Specialty Start Date End Date Sushil Stewart MD [address] [place] [address] [address] [place], [place] PCP - General Internal Medicine 10/14/17 documented as of this encounter
--- OUTSIDE RECORDS SUMMARY | 2025-03-02 17:14 | XMS_ITS | Clinical Summary ---
Author Organization [address] [facility] Address [address] [place] [address] Phone Care Team Providers Care Semiconductor Wafers Saw Operator Name Role Phone Sushil Stewart MD Primary Care Provider [phone] Surgical History Surgery Date Site/Laterality Comments BACK SURGERY PROCEDURE: HISTORICAL BACK SURGERY; COMMENT: x 3 OTHER SURGICAL HISTORY PROCEDURE: HISTORY OTHER; COMMENT: sinus surgery HYSTERECTOMY PROCEDURE: HISTORICAL HYSTERECTOMY CHOLECYSTECTOMY PROCEDURE: HISTORICAL CHOLECYSTECTOMY ANGIOPLASTY PROCEDURE: HISTORICAL ANGIOPLASTY W/STENT OTHER SURGICAL HISTORY 11/03/2021 PROCEDURE: DC ARTHRD ANT INTERBODY MIN DSC CRV BELOW C2; COMMENT: C5-6 ACDF, Dr. Doss Medical History Medical History Date Comments COPD (chronic obstructive pu lmonary disease) ([facility] V24, [facility] V28) 04/11/2018 DX:COPD (chronic o bstructive pulmonary disease) ([facility]) GERD (gastroesophageal reflu x disease) 04/11/2018 DX:GERD [...] LAB CHEMISTRY METHOD 08/17/2024 2:03 PM [facility] Potassium 3.7 3.5 - 5.5 mmol/L LAB CHEMISTRY METHOD 08/17/2024 2:03 PM [facility] Chloride 102 96 - 110 mmol/L LAB CHEMISTRY METHOD 08/17/2024 2:03 PM [facility] CO2 30 21 - 32 mmol/L LAB CHEMISTRY METHOD 08/17/2024 2:03 PM [facility] Anion Gap 7 3 - 11 LAB CHEMISTRY METHOD 08/17/2024 2:03 PM [facility] Glucose 157(H) 70 - 100 mg/dL LAB CHEMISTRY METHOD 08/17/2024 2:03 PM [facility] BUN 13 5 - 25 mg/dL LAB CHEMISTRY METHOD 08/17/2024 2:03 PM [facility] Creatinine 0.65 0.50 - 1.10 mg/dL LAB CHEMISTRY METHOD 08/17/2024 2:03 PM [facility] eGFR 94 >=60 mL/min/1. 73m2 LAB CHEMISTRY METHOD 08/17/2024 2:03 PM [facility] Comment:Calculation based on the Chronic Kidney Disease Epidemiology Collaboration (CKD-EPI) equation refit without adjustment for race. BUN/Creatinine Ratio 20.0 LAB CHEMISTRY METHOD 08/17/2024 2:03 PM [facility] Calcium 9.8 8.5 - 10.5 mg/dL LAB CHEMISTRY METHOD 08/17/2024 2:03 PM [facility] AST (SGOT) 23 10 - 42 unit/L LAB CHEMISTRY METHOD 08/17/2024 2:03 PM [facility] ALT (SGPT) 70(H) 10 - 60 unit/L LAB CHEMISTRY METHOD 08/17/2024 2:03 PM [facility] Alkaline Phosphatase 177(H) 42 - 121 unit/L LAB CHEMISTRY METHOD 08/17/2024 2:03 PM [facility] Total Protein 6.0 6.0 - 8.0 g/dL LAB CHEMISTRY METHOD 08/17/2024 2:03 PM [facility] Albumin 2.9(L) 3.2 - 5.0 g/dL LAB CHEMISTRY METHOD 08/17/2024 2:03 PM [facility] Total Bilirubin 0.2 0.0 - 1.4 mg/dL LAB CHEMISTRY METHOD 08/17/2024 2:03 PM [facility] Blood Venous blood specimen / Unknown Venipuncture / Unknown 08/17/2024 9:34 AM EST 08/17/2024 11:30 AM EST us Carmela Thomas MD LAB BLOOD ORDERABLES Fin al Result [facility] [address] [place] [address], from Last 3 Months or Most Recently Relevant to Health Maintenance Insurance MEDICARE Care Teams Semiconductor Wafers Saw Operator Relationship Specialty Start Date End Date Sushil Stewart MD [address] [place] [address] Rd [address] [place], [place] PCP - General Internal Medicine 10/14/17
--- OUTSIDE RECORDS SUMMARY | 2025-03-02 17:14 | XMS_ITS | Encounter Summary ---
Author Organization [facility] Address [address] [place] [address] Care Team Providers Care Car Manager Name Role Phone Sushil Stewart MD Primary Care Provider [phone] Encounter Details Date Type Department Care Team (Late st Contact Info) Description 08/08/2024 Lab Requisition [facility] - Main Lab [address] [place] [address] Carmela Thomas MD [address] [phone] Heart failure, unspecified (CMS/HCC V24, CMS/HCC V28) [...] CHEMISTRY METHOD 08/10/2024 12:42 PM EST [facility] Potassium 3.3(L) 3.5 - 5.5 mmol/L LAB CHEMISTRY METHOD 08/10/2024 12:42 PM [facility] Chloride 106 96 - 110 mmol/L LAB CHEMISTRY METHOD 08/10/2024 12:42 PM [facility] CO2 29 21 - 32 mmol/L LAB CHEMISTRY METHOD 08/10/2024 12:42 PM [facility] Anion Gap 9 3 - 11 LAB CHEMISTRY METHOD 08/10/2024 12:42 PM [facility] Glucose 94 70 - 100 mg/dL LAB CHEMISTRY METHOD 08/10/2024 12:42 PM [facility] BUN 18 5 - 25 mg/dL LAB CHEMISTRY METHOD 08/10/2024 12:42 PM [facility] Creatinine 0.62 0.50 - 1.10 mg/dL LAB CHEMISTRY METHOD 08/10/2024 12:42 PM [facility] eGFR 95 >=60 mL/min/1. 73m2 LAB CHEMISTRY METHOD 08/10/2024 12:42 PM [facility] Comment:Calculation based on the Chronic Kidney Disease Epidemiology Collaboration (CKD-EPI) equation refit without adjustment for race. BUN/Creatinine Ratio 29.0 LAB CHEMISTRY METHOD 08/10/2024 12:42 PM [facility] Calcium 9.2 8.5 - 10.5 mg/dL LAB CHEMISTRY METHOD 08/10/2024 12:42 PM [facility] AST (SGOT) 38 10 - 42 unit/L LAB CHEMISTRY METHOD 08/10/2024 12:42 PM [facility] ALT (SGPT) 68(H) 10 - 60 unit/L LAB CHEMISTRY METHOD 08/10/2024 12:42 PM [facility] Alkaline Phosphatase 145(H) 42 - 121 unit/L LAB CHEMISTRY METHOD 08/10/2024 12:42 PM [facility] Total Protein 5.8(L) 6.0 - 8.0 g/dL LAB CHEMISTRY METHOD 08/10/2024 12:42 PM EST [facility] Albumin 2.7(L) 3.2 - 5.0 g/dL LAB CHEMISTRY METHOD 08/10/2024 12:42 PM [facility] Total Bilirubin 0.3 0.0 - 1.4 mg/dL LAB CHEMISTRY METHOD 08/10/2024 12:42 PM [facility] Blood Venous blood specimen / Unknown Venipuncture / Unknown 08/10/2024 8:28 AM EST 08/10/2024 11:20 AM EST us Carmela Thomas MD LAB BLOOD ORDERABLES Fin al Result [facility] [address] [place] [address], * (ABNORMAL) Complete blood count (08/10/2024 8:28 AM EST) WBC 10.7 4.8 - 10.8 K/mcL LAB HEMETOLOGY METHOD 08/10/2024 1:20 PM [facility] RBC 3.10(L) 3.80 - 4.80 M/mcL LAB HEMETOLOGY METHOD 08/10/2024 1:20 PM [facility] Hemoglobin 9.3(L) 11.5 - 16.0 g/dL LAB HEMETOLOGY METHOD 08/10/2024 1:20 PM [facility] Hematocrit 29.3(L) 35.0 - 47.0 % LAB HEMETOLOGY METHOD 08/10/2024 1:20 PM [facility] MCV 95.8 79.0 - 98.0 FL LAB HEMETOLOGY METHOD 08/10/2024 1:20 PM [facility] MCH 30.4 27.0 - 32.0 pcg LAB HEMETOLOGY METHOD 08/10/2024 1:20 PM EST [facility] MCHC 31.7(L) 32.0 - 37.0 g/dL LAB HEMETOLOGY METHOD 08/10/2024 1:20 PM [facility] RDW 14.2 11.0 - 15.0 % LAB HEMETOLOGY METHOD 08/10/2024 1:20 PM [facility] Platelets 280 130 - 400 K/mcL LAB HEMETOLOGY METHOD 08/10/2024 1:20 PM [facility] MPV 10.2 7.0 - 11.0 FL LAB HEMETOLOGY METHOD 08/10/2024 1:20 PM [facility] NRBC 0.0 <1.0 % LAB HEMETOLOGY METHOD 08/10/2024 1:20 PM [facility] NRBC Absolute 0.00 <0.10 K/mcL LAB HEMETOLOGY METHOD 08/10/2024 1:20 PM [facility] Blood Venous blood specimen / Unknown Venipuncture / Unknown 08/10/2024 8:28 AM EST 08/10/2024 11:21 AM EST us Carmela Thomas MD LAB BLOOD ORDERABLES Fin al Result [facility] [address] [place] [address], documented in this encounter Visit Diagnoses Diagnosis Heart failure, unspecified (CMS/HCC V24, CMS/HCC V28) Heart failure, unspecified documented in this encounter Care Teams Car Manager Relationship Specialty Start Date End Date Sushil Stewart MD [address] [place] [address] [address] [place], [place] PCP - General Internal Medicine 10/14/17 documented as of this encounter
--- OUTSIDE RECORDS SUMMARY | 2025-03-02 17:15 | XMS_ITS | Encounter Summary ---
Author Organization [facility] Address [address] [place] [address] Care Team Providers Care Automotive Technician Name Role Phone Sushil Stewart MD Primary Care Provider [phone] Encounter Details Date Type Department Care Team (Late st Contact Info) Description 08/01/2024 Lab Requisition [facility] - Main Lab [address] [place] [address] Carmela Thomas MD [address] [phone] Heart failure, unspecified (CMS/HCC V24, CMS/HCC V28) [...] CHEMISTRY METHOD 08/03/2024 11:51 AM EST [facility] Potassium 3.2(L) 3.5 - 5.5 mmol/L LAB CHEMISTRY METHOD 08/03/2024 11:51 AM [facility] Chloride 101 96 - 110 mmol/L LAB CHEMISTRY METHOD 08/03/2024 11:51 AM [facility] CO2 33(H) 21 - 32 mmol/L LAB CHEMISTRY METHOD 08/03/2024 11:51 AM [facility] Anion Gap 6 3 - 11 LAB CHEMISTRY METHOD 08/03/2024 11:51 AM [facility] Glucose 87 70 - 100 mg/dL LAB CHEMISTRY METHOD 08/03/2024 11:51 AM [facility] BUN 16 5 - 25 mg/dL LAB CHEMISTRY METHOD 08/03/2024 11:51 AM [facility] Creatinine 0.62 0.50 - 1.10 mg/dL LAB CHEMISTRY METHOD 08/03/2024 11:51 AM [facility] eGFR 95 >=60 mL/min/1. 73m2 LAB CHEMISTRY METHOD 08/03/2024 11:51 AM [facility] Comment:Calculation based on the Chronic Kidney Disease Epidemiology Collaboration (CKD-EPI) equation refit without adjustment for race. BUN/Creatinine Ratio 25.8 LAB CHEMISTRY METHOD 08/03/2024 11:51 AM [facility] Calcium 9.4 8.5 - 10.5 mg/dL LAB CHEMISTRY METHOD 08/03/2024 11:51 AM [facility] AST (SGOT) 37 10 - 42 unit/L LAB CHEMISTRY METHOD 08/03/2024 11:51 AM [facility] ALT (SGPT) 63(H) 10 - 60 unit/L LAB CHEMISTRY METHOD 08/03/2024 11:51 AM [facility] Alkaline Phosphatase 193(H) 42 - 121 unit/L LAB CHEMISTRY METHOD 08/03/2024 11:51 AM [facility] Total Protein 5.9(L) 6.0 - 8.0 g/dL LAB CHEMISTRY METHOD 08/03/2024 11:51 AM EST [facility] Albumin 3.0(L) 3.2 - 5.0 g/dL LAB CHEMISTRY METHOD 08/03/2024 11:51 AM [facility] Total Bilirubin 0.3 0.0 - 1.4 mg/dL LAB CHEMISTRY METHOD 08/03/2024 11:51 AM [facility] Blood Venous blood specimen / Unknown Venipuncture / Unknown 08/03/2024 7:22 AM EST 08/03/2024 10:51 AM EST us Carmela Thomas MD LAB BLOOD ORDERABLES Fin al Result [facility] [address] [place] [address], * (ABNORMAL) Complete blood count (08/03/2024 7:22 AM EST) WBC 11.0(H) 4.8 - 10.8 K/mcL LAB HEMETOLOGY METHOD 08/03/2024 11:15 AM [facility] RBC 3.60(L) 3.80 - 4.80 M/mcL LAB HEMETOLOGY METHOD 08/03/2024 11:15 AM [facility] Hemoglobin 10.9(L) 11.5 - 16.0 g/dL LAB HEMETOLOGY METHOD 08/03/2024 11:15 AM [facility] Hematocrit 33.8(L) 35.0 - 47.0 % LAB HEMETOLOGY METHOD 08/03/2024 11:15 AM [facility] MCV 94.9 79.0 - 98.0 FL LAB HEMETOLOGY METHOD 08/03/2024 11:15 AM [facility] MCH 30.6 27.0 - 32.0 pcg LAB HEMETOLOGY METHOD 08/03/2024 11:15 AM EST [facility] MCHC 32.2 32.0 - 37.0 g/dL LAB HEMETOLOGY METHOD 08/03/2024 11:15 AM [facility] RDW 13.5 11.0 - 15.0 % LAB HEMETOLOGY METHOD 08/03/2024 11:15 AM [facility] Platelets 347 130 - 400 K/mcL LAB HEMETOLOGY METHOD 08/03/2024 11:15 AM [facility] MPV 10.4 7.0 - 11.0 FL LAB HEMETOLOGY METHOD 08/03/2024 11:15 AM [facility] NRBC 0.0 <1.0 % LAB HEMETOLOGY METHOD 08/03/2024 11:15 AM [facility] NRBC Absolute 0.00 <0.10 K/mcL LAB HEMETOLOGY METHOD 08/03/2024 11:15 AM [facility] Blood Venous blood specimen / Unknown Venipuncture / Unknown 08/03/2024 7:22 AM EST 08/03/2024 10:51 AM EST us Carmela Thomas MD LAB BLOOD ORDERABLES Fin al Result [facility] [address] [place] [address], documented in this encounter Visit Diagnoses Diagnosis Heart failure, unspecified (CMS/HCC V24, CMS/HCC V28) Heart failure, unspecified documented in this encounter Care Teams Automotive Technician Relationship Specialty Start Date End Date Sushil Stewart MD [address] [place] [address] [address] [place], [place] PCP - General Internal Medicine 10/14/17 documented as of this encounter
== END 2025-03-02 13:20 | disposition home or self-care (01) ==
LOC: HO.MAMMO 13:19
PROVIDERS: PCP Internal Medicine; Visit Provider Internal Medicine
DX: M81.0 Age-related osteoporosis without current pathological fracture (principal)
CPT/HCPCS: 77080

== ENCOUNTER → 2025-03-02 13:30 | Outpatient (BNV) | payer MEDICARE, BC, SELFPAY | PROVIDERS: PCP Internal Medicine; Visit Provider Radiology Diagnostic Radiology | DX: E28.39 Other primary ovarian failure (principal) | CPT/HCPCS: 77080 ==

== ENCOUNTER 2025-04-13 14:23 | Outpatient (REF) | payer SELFPAY ==
--- NOTE | 2025-04-13 14:56 | MHC.AU.HA3 ---
Hearing Instrument Follow-Up- Binaural Date of Visit: 04/13/25 Right Ear: Make, Model, Color, Serial Number: Cuauhtemoc Sorto P70-UP SN: [id number] Color: Champagne Wildlife Ecology Professor Repair Warranty: 05/23/2025 Wildlife Ecology Professor Loss and Damage Warranty: 05/23/2025 [facility] Service Plan: Battery Size: 675 Auto Headlight Mechanic/Slim Tube: Earmold/Dome/CShell/SlimTip:[facility] Full shell acrylic Type of Wax Guard: Dispensed By: [email or web address] Date of Fittin Left Ear: Make, Model, Color, Serial Number: Cuauhtemoc Sorto P70-UP SN: [id number] Color: Champagne Wildlife Ecology Professor Repair Warranty: 05/23/2025 Wildlife Ecology Professor Loss and Damage Warranty: 05/23/2025 [facility] Service Plan: Battery Size: Rechargeable Auto Headlight Mechanic/Slim Tube: Earmold/Dome/CShell/SlimTip: [facility] Full shell acrylic Type of Wax Guard: Dispensed By: [email or web address] Date of Fittin Follow-Up Summary: New patient. Previous patient at [facility]. Recently purchased custom, rechargeable HAs. About five months ago, one broke, brought it back to [facility] and provider sent it out for repair. However, provider never called when GUERRERO returned and Isabela reportedly cannot get in touch with him (tried phone call, letters, going to office). Currently using older BTE HAs; however, lost right EM. Only wants to purchase new right EM at this time. Impression taken, right ear, without incident. Sent to [facility], ordering same style and material as left EM. Paid $135.00 today (no charge at diamond picker). Recommendations: Patient will be contacted when materials have arrived. Diagnosis Code(s): Primary Diagnosis: H91.93 Unspecified Hearing Loss, Bilateral Signature: Provider: Lexa Beasley, [facility]
--- OUTSIDE RECORDS SUMMARY | 2025-04-13 18:42 | XMS_ITS | Encounter Summary ---
Author Organization [facility] Address [address] [place] [address] Care Team Providers Care Warehouse Processor Name Role Phone Sushil Stewart MD Primary Care Provider [phone] Encounter Details Date Type Department Care Team (Late st Contact Info) Description 08/01/2024 Lab Requisition [facility] - Main Lab [address] [place] [address] Carmela Thomas MD [address] [phone] Heart failure, unspecified (CMS/HCC V24, CMS/HCC V28) [...] CHEMISTRY METHOD 08/03/2024 11:51 AM EST [facility] Potassium 3.2(L) 3.5 - 5.5 mmol/L LAB CHEMISTRY METHOD 08/03/2024 11:51 AM [facility] Chloride 101 96 - 110 mmol/L LAB CHEMISTRY METHOD 08/03/2024 11:51 AM [facility] CO2 33(H) 21 - 32 mmol/L LAB CHEMISTRY METHOD 08/03/2024 11:51 AM [facility] Anion Gap 6 3 - 11 LAB CHEMISTRY METHOD 08/03/2024 11:51 AM [facility] Glucose 87 70 - 100 mg/dL LAB CHEMISTRY METHOD 08/03/2024 11:51 AM [facility] BUN 16 5 - 25 mg/dL LAB CHEMISTRY METHOD 08/03/2024 11:51 AM [facility] Creatinine 0.62 0.50 - 1.10 mg/dL LAB CHEMISTRY METHOD 08/03/2024 11:51 AM [facility] eGFR 95 >=60 mL/min/1. 73m2 LAB CHEMISTRY METHOD 08/03/2024 11:51 AM [facility] Comment:Calculation based on the Chronic Kidney Disease Epidemiology Collaboration (CKD-EPI) equation refit without adjustment for race. BUN/Creatinine Ratio 25.8 LAB CHEMISTRY METHOD 08/03/2024 11:51 AM [facility] Calcium 9.4 8.5 - 10.5 mg/dL LAB CHEMISTRY METHOD 08/03/2024 11:51 AM [facility] AST (SGOT) 37 10 - 42 unit/L LAB CHEMISTRY METHOD 08/03/2024 11:51 AM [facility] ALT (SGPT) 63(H) 10 - 60 unit/L LAB CHEMISTRY METHOD 08/03/2024 11:51 AM [facility] Alkaline Phosphatase 193(H) 42 - 121 unit/L LAB CHEMISTRY METHOD 08/03/2024 11:51 AM [facility] Total Protein 5.9(L) 6.0 - 8.0 g/dL LAB CHEMISTRY METHOD 08/03/2024 11:51 AM EST [facility] Albumin 3.0(L) 3.2 - 5.0 g/dL LAB CHEMISTRY METHOD 08/03/2024 11:51 AM [facility] Total Bilirubin 0.3 0.0 - 1.4 mg/dL LAB CHEMISTRY METHOD 08/03/2024 11:51 AM [facility] Blood Venous blood specimen / Unknown Venipuncture / Unknown 08/03/2024 7:22 AM EST 08/03/2024 10:51 AM EST us Carmela Thomas MD LAB BLOOD ORDERABLES Fin al Result [facility] [address] [place] [address], * (ABNORMAL) Complete blood count (08/03/2024 7:22 AM EST) WBC 11.0(H) 4.8 - 10.8 K/mcL LAB HEMETOLOGY METHOD 08/03/2024 11:15 AM [facility] RBC 3.60(L) 3.80 - 4.80 M/mcL LAB HEMETOLOGY METHOD 08/03/2024 11:15 AM [facility] Hemoglobin 10.9(L) 11.5 - 16.0 g/dL LAB HEMETOLOGY METHOD 08/03/2024 11:15 AM [facility] Hematocrit 33.8(L) 35.0 - 47.0 % LAB HEMETOLOGY METHOD 08/03/2024 11:15 AM [facility] MCV 94.9 79.0 - 98.0 FL LAB HEMETOLOGY METHOD 08/03/2024 11:15 AM [facility] MCH 30.6 27.0 - 32.0 pcg LAB HEMETOLOGY METHOD 08/03/2024 11:15 AM EST [facility] MCHC 32.2 32.0 - 37.0 g/dL LAB HEMETOLOGY METHOD 08/03/2024 11:15 AM [facility] RDW 13.5 11.0 - 15.0 % LAB HEMETOLOGY METHOD 08/03/2024 11:15 AM [facility] Platelets 347 130 - 400 K/mcL LAB HEMETOLOGY METHOD 08/03/2024 11:15 AM [facility] MPV 10.4 7.0 - 11.0 FL LAB HEMETOLOGY METHOD 08/03/2024 11:15 AM [facility] NRBC 0.0 <1.0 % LAB HEMETOLOGY METHOD 08/03/2024 11:15 AM [facility] NRBC Absolute 0.00 <0.10 K/mcL LAB HEMETOLOGY METHOD 08/03/2024 11:15 AM [facility] Blood Venous blood specimen / Unknown Venipuncture / Unknown 08/03/2024 7:22 AM EST 08/03/2024 10:51 AM EST us Carmela Thomas MD LAB BLOOD ORDERABLES Fin al Result [facility] [address] [place] [address], documented in this encounter Visit Diagnoses Diagnosis Heart failure, unspecified (CMS/HCC V24, CMS/HCC V28) Heart failure, unspecified documented in this encounter Care Teams Warehouse Processor Relationship Specialty Start Date End Date Sushil Stewart MD [address] [place] [address] [address] [place], [place] PCP - General Internal Medicine 10/14/17 documented as of this encounter
--- OUTSIDE RECORDS SUMMARY | 2025-04-13 18:42 | XMS_ITS | Encounter Summary ---
Author Organization [facility] Address [address] [place] [address] Care Team Providers Care Yard Jacker Name Role Phone Sushil Stewart MD Primary Care Provider [phone] Encounter Details Date Type Department Care Team (Late st Contact Info) Description 07/27/2024 Lab Requisition [facility] - Main Lab [address] [place] [address] Carmela Thomas MD [address] [phone] Heart failure, unspecified (CMS/HCC V24, CMS/HCC V28) [...] mmol/L LAB CHEMISTRY METHOD 07/27/2024 2:15 PM [facility] Chloride 102 96 - 110 mmol/L LAB CHEMISTRY METHOD 07/27/2024 2:15 PM [facility] CO2 28 21 - 32 mmol/L LAB CHEMISTRY METHOD 07/27/2024 2:15 PM [facility] Anion Gap 10 3 - 11 LAB CHEMISTRY METHOD 07/27/2024 2:15 PM [facility] Glucose 98 70 - 100 mg/dL LAB CHEMISTRY METHOD 07/27/2024 2:15 PM [facility] BUN 13 5 - 25 mg/dL LAB CHEMISTRY METHOD 07/27/2024 2:15 PM [facility] Creatinine 0.62 0.50 - 1.10 mg/dL LAB CHEMISTRY METHOD 07/27/2024 2:15 PM [facility] eGFR 95 >=60 mL/min/1. 73m2 LAB CHEMISTRY METHOD 07/27/2024 2:15 PM [facility] Comment:Calculation based on the Chronic Kidney Disease Epidemiology Collaboration (CKD-EPI) equation refit without adjustment for race. BUN/Creatinine Ratio 21.0 LAB CHEMISTRY METHOD 07/27/2024 2:15 PM [facility] Calcium 9.6 8.5 - 10.5 mg/dL LAB CHEMISTRY METHOD 07/27/2024 2:15 PM [facility] AST (SGOT) 34 10 - 42 unit/L LAB CHEMISTRY METHOD 07/27/2024 2:15 PM [facility] ALT (SGPT) 81(H) 10 - 60 unit/L LAB CHEMISTRY METHOD 07/27/2024 2:15 PM [facility] Alkaline Phosphatase 189(H) 42 - 121 unit/L LAB CHEMISTRY METHOD 07/27/2024 2:15 PM [facility] Total Protein 6.0 6.0 - 8.0 g/dL LAB CHEMISTRY METHOD 07/27/2024 2:15 PM [facility] Albumin 2.5(L) 3.2 - 5.0 g/dL LAB CHEMISTRY METHOD 07/27/2024 2:15 PM [facility] Total Bilirubin 0.3 0.0 - 1.4 mg/dL LAB CHEMISTRY METHOD 07/27/2024 2:15 PM [facility] Blood Venous blood specimen / Unknown Venipuncture / Unknown 07/27/2024 8:36 AM EST 07/27/2024 11:49 AM EST us Carmela Thomas MD LAB BLOOD ORDERABLES Fin al Result [facility] [address] [place] [address], * (ABNORMAL) Complete blood count (07/27/2024 8:36 AM EST) WBC 17.3(H) 4.8 - 10.8 K/mcL LAB HEMETOLOGY METHOD 07/27/2024 1:03 PM [facility] RBC 4.00 3.80 - 4.80 M/mcL LAB HEMETOLOGY METHOD 07/27/2024 1:03 PM [facility] Hemoglobin 12.0 11.5 - 16.0 g/dL LAB HEMETOLOGY METHOD 07/27/2024 1:03 PM [facility] Hematocrit 36.8 35.0 - 47.0 % LAB HEMETOLOGY METHOD 07/27/2024 1:03 PM [facility] MCV 92.0 79.0 - 98.0 FL LAB HEMETOLOGY METHOD 07/27/2024 1:03 PM [facility] MCH 30.0 27.0 - 32.0 pcg LAB HEMETOLOGY METHOD 07/27/2024 1:03 PM EST [facility] MCHC 32.6 32.0 - 37.0 g/dL LAB HEMETOLOGY METHOD 07/27/2024 1:03 PM [facility] RDW 13.4 11.0 - 15.0 % LAB HEMETOLOGY METHOD 07/27/2024 1:03 PM [facility] Platelets 609(H) 130 - 400 K/mcL LAB HEMETOLOGY METHOD 07/27/2024 1:03 PM [facility] MPV 9.9 7.0 - 11.0 FL LAB HEMETOLOGY METHOD 07/27/2024 1:03 PM [facility] NRBC 0.0 <1.0 % LAB HEMETOLOGY METHOD 07/27/2024 1:03 PM [facility] NRBC Absolute 0.00 <0.10 K/mcL LAB HEMETOLOGY METHOD 07/27/2024 1:03 PM [facility] Blood Venous blood specimen / Unknown Venipuncture / Unknown 07/27/2024 8:36 AM EST 07/27/2024 11:49 AM EST us Carmela Thomas MD LAB BLOOD ORDERABLES Fin al Result [facility] [address] [place] [address], documented in this encounter Visit Diagnoses Diagnosis Heart failure, unspecified (CMS/HCC V24, CMS/HCC V28) Heart failure, unspecified documented in this encounter Care Teams Yard Jacker Relationship Specialty Start Date End Date Sushil Stewart MD [address] [place] [address] [address] [place], [place] PCP - General Internal Medicine 10/14/17 documented as of this encounter
--- OUTSIDE RECORDS SUMMARY | 2025-04-13 18:42 | XMS_ITS | Encounter Summary ---
Author Organization [facility] Address [address] [place] [address] Care Team Providers Care Medical Oncology Physician Name Role Phone Sushil Stewart MD Primary Care Provider [phone] Encounter Details Date Type Department Care Team (Late st Contact Info) Description 08/16/2024 Lab Requisition [facility] - Main Lab [address] [place] [address] Carmela Thomas MD [address] [phone] Heart failure, unspecified (CMS/HCC V24, CMS/HCC V28) [...] CHEMISTRY METHOD 08/17/2024 2:03 PM EST [facility] Potassium 3.7 3.5 - 5.5 mmol/L LAB CHEMISTRY METHOD 08/17/2024 2:03 PM [facility] Chloride 102 96 - 110 mmol/L LAB CHEMISTRY METHOD 08/17/2024 2:03 PM [facility] CO2 30 21 - 32 mmol/L LAB CHEMISTRY METHOD 08/17/2024 2:03 PM [facility] Anion Gap 7 3 - 11 LAB CHEMISTRY METHOD 08/17/2024 2:03 PM [facility] Glucose 157(H) 70 - 100 mg/dL LAB CHEMISTRY METHOD 08/17/2024 2:03 PM [facility] BUN 13 5 - 25 mg/dL LAB CHEMISTRY METHOD 08/17/2024 2:03 PM [facility] Creatinine 0.65 0.50 - 1.10 mg/dL LAB CHEMISTRY METHOD 08/17/2024 2:03 PM [facility] eGFR 94 >=60 mL/min/1. 73m2 LAB CHEMISTRY METHOD 08/17/2024 2:03 PM [facility] Comment:Calculation based on the Chronic Kidney Disease Epidemiology Collaboration (CKD-EPI) equation refit without adjustment for race. BUN/Creatinine Ratio 20.0 LAB CHEMISTRY METHOD 08/17/2024 2:03 PM [facility] Calcium 9.8 8.5 - 10.5 mg/dL LAB CHEMISTRY METHOD 08/17/2024 2:03 PM [facility] AST (SGOT) 23 10 - 42 unit/L LAB CHEMISTRY METHOD 08/17/2024 2:03 PM [facility] ALT (SGPT) 70(H) 10 - 60 unit/L LAB CHEMISTRY METHOD 08/17/2024 2:03 PM [facility] Alkaline Phosphatase 177(H) 42 - 121 unit/L LAB CHEMISTRY METHOD 08/17/2024 2:03 PM [facility] Total Protein 6.0 6.0 - 8.0 g/dL LAB CHEMISTRY METHOD 08/17/2024 2:03 PM [facility] Albumin 2.9(L) 3.2 - 5.0 g/dL LAB CHEMISTRY METHOD 08/17/2024 2:03 PM [facility] Total Bilirubin 0.2 0.0 - 1.4 mg/dL LAB CHEMISTRY METHOD 08/17/2024 2:03 PM [facility] Blood Venous blood specimen / Unknown Venipuncture / Unknown 08/17/2024 9:34 AM EST 08/17/2024 11:30 AM EST us Carmela Thomas MD LAB BLOOD ORDERABLES Fin al Result [facility] [address] [place] [address], * (ABNORMAL) Complete blood count (08/17/2024 9:34 AM EST) WBC 13.9(H) 4.8 - 10.8 K/mcL LAB HEMETOLOGY METHOD 08/17/2024 1:30 PM [facility] RBC 3.10(L) 3.80 - 4.80 M/mcL LAB HEMETOLOGY METHOD 08/17/2024 1:30 PM [facility] Hemoglobin 9.4(L) 11.5 - 16.0 g/dL LAB HEMETOLOGY METHOD 08/17/2024 1:30 PM [facility] Hematocrit 30.2(L) 35.0 - 47.0 % LAB HEMETOLOGY METHOD 08/17/2024 1:30 PM [facility] MCV 97.7 79.0 - 98.0 FL LAB HEMETOLOGY METHOD 08/17/2024 1:30 PM [facility] MCH 30.4 27.0 - 32.0 pcg LAB HEMETOLOGY METHOD 08/17/2024 1:[address] [facility] MCHC 31.1(L) 32.0 - 37.0 g/dL LAB HEMETOLOGY METHOD 08/17/2024 1:30 PM [facility] RDW 14.0 11.0 - 15.0 % LAB HEMETOLOGY METHOD 08/17/2024 1:30 PM [facility] Platelets 427(H) 130 - 400 K/mcL LAB HEMETOLOGY METHOD 08/17/2024 1:30 PM [facility] MPV 10.3 7.0 - 11.0 FL LAB HEMETOLOGY METHOD 08/17/2024 1:30 PM [facility] NRBC 0.0 <1.0 % LAB HEMETOLOGY METHOD 08/17/2024 1:30 PM [facility] NRBC Absolute 0.00 <0.10 K/mcL LAB HEMETOLOGY METHOD 08/17/2024 1:30 PM [facility] Blood Venous blood specimen / Unknown Venipuncture / Unknown 08/17/2024 9:34 AM EST 08/17/2024 11:30 AM EST us Carmela Thomas MD LAB BLOOD ORDERABLES Fin al Result Performing Organization Address City/State/[facility] Co de Phone Number [facility] [address] [place] [address], documented in this encounter Visit Diagnoses Diagnosis Heart failure, unspecified (CMS/HCC V24, CMS/HCC V28) Heart failure, unspecified documented in this encounter Care Teams Medical Oncology Physician Relationship Specialty Start Date End Date Sushil Stewart MD [address] [place] [address] [address] [place], [place] PCP - General Internal Medicine 10/14/17 documented as of this encounter
--- OUTSIDE RECORDS SUMMARY | 2025-04-13 18:42 | XMS_ITS | Clinical Summary ---
Author Organization [address] [facility] Address [address] [place] [address] Phone Care Team Providers Care Satellite Installer Name Role Phone Sushil Stewart MD Primary Care Provider [phone] Surgical History Surgery Date Site/Laterality Comments BACK SURGERY PROCEDURE: HISTORICAL BACK SURGERY; COMMENT: x 3 OTHER SURGICAL HISTORY PROCEDURE: HISTORY OTHER; COMMENT: sinus surgery HYSTERECTOMY PROCEDURE: HISTORICAL HYSTERECTOMY CHOLECYSTECTOMY PROCEDURE: HISTORICAL CHOLECYSTECTOMY ANGIOPLASTY PROCEDURE: HISTORICAL ANGIOPLASTY W/STENT OTHER SURGICAL HISTORY 11/03/2021 PROCEDURE: MO ARTHRD ANT INTERBODY MIN DSC CRV BELOW C2; COMMENT: C5-6 ACDF, Dr. Doss Medical History Medical History Date Comments COPD (chronic obstructive pu lmonary disease) ([facility] V24, [facility] V28) 04/11/2018 DX:COPD (chronic [...] Last Done Comments Breast Cancer Screening 1950 Colorectal Cancer Screening: Colonoscopy 1950 RSV Immunization Adult Patients (1 - Risk 50-74 years 1-dose series) 09/23/2001 Zoster Vaccines (2 of 2) 02/13/2018 12/19/2017 Pneumococcal Vaccine: 50+ Years (2 of 2 - PCV) 06/24/2020 06/24/2019 Cholesterol Screening (Lipid Panel) 05/19/2022 Falls Risk Assessment 05/19/2022 Hepatitis C [...] mmol/L LAB CHEMISTRY METHOD 08/17/2024 2:03 PM [facility] Potassium 3.7 3.5 - 5.5 mmol/L LAB CHEMISTRY METHOD 08/17/2024 2:03 PM [facility] Chloride 102 96 - 110 mmol/L LAB CHEMISTRY METHOD 08/17/2024 2:03 PM [facility] CO2 30 21 - 32 mmol/L LAB CHEMISTRY METHOD 08/17/2024 2:03 PM [facility] Anion Gap 7 3 - 11 LAB CHEMISTRY METHOD 08/17/2024 2:03 PM [facility] Glucose 157(H) 70 - 100 mg/dL LAB CHEMISTRY METHOD 08/17/2024 2:03 PM [facility] BUN 13 5 - 25 mg/dL LAB CHEMISTRY METHOD 08/17/2024 2:03 PM [facility] Creatinine 0.65 0.50 - 1.10 mg/dL LAB CHEMISTRY METHOD 08/17/2024 2:03 PM [facility] eGFR 94 >=60 mL/min/1. 73m2 LAB CHEMISTRY METHOD 08/17/2024 2:03 PM [facility] Comment:Calculation based on the Chronic Kidney Disease Epidemiology Collaboration (CKD-EPI) equation refit without adjustment for race. BUN/Creatinine Ratio 20.0 LAB CHEMISTRY METHOD 08/17/2024 2:03 PM [facility] Calcium 9.8 8.5 - 10.5 mg/dL LAB CHEMISTRY METHOD 08/17/2024 2:03 PM [facility] AST (SGOT) 23 10 - 42 unit/L LAB CHEMISTRY METHOD 08/17/2024 2:03 PM [facility] ALT (SGPT) 70(H) 10 - 60 unit/L LAB CHEMISTRY METHOD 08/17/2024 2:03 PM [facility] Alkaline Phosphatase 177(H) 42 - 121 unit/L LAB CHEMISTRY METHOD 08/17/2024 2:03 PM [facility] Total Protein 6.0 6.0 - 8.0 g/dL LAB CHEMISTRY METHOD 08/17/2024 2:03 PM [facility] Albumin 2.9(L) 3.2 - 5.0 g/dL LAB CHEMISTRY METHOD 08/17/2024 2:03 PM [facility] Total Bilirubin 0.2 0.0 - 1.4 mg/dL LAB CHEMISTRY METHOD 08/17/2024 2:03 PM [facility] Blood Venous blood specimen / Unknown Venipuncture / Unknown 08/17/2024 9:34 AM EST 08/17/2024 11:30 AM EST us Carmela Thomas MD LAB BLOOD ORDERABLES Fin al Result [facility] [address] [place] [address], from Last 3 Months or Most Recently Relevant to Health Maintenance Insurance MEDICARE Care Teams Satellite Installer Relationship Specialty Start Date End Date Sushil Stewart MD [address] [place] [address] Rd [address] [place], [place] PCP - General Internal Medicine 10/14/17
--- OUTSIDE RECORDS SUMMARY | 2025-04-13 18:42 | XMS_ITS | Encounter Summary ---
Author Organization [facility] Address [address] [place] [address] Care Team Providers Care Rotary Soil Stabilizer Name Role Phone Sushil Stewart MD Primary Care Provider Encounter Details Date Type Department Care Team (Late st Contact Info) Description 08/08/2024 Lab Requisition [facility] - Main Lab [address] [place] [address] Carmela Thomas MD [address] [phone] Heart failure, unspecified (CMS/HCC V24, CMS/HCC V28) [...] CHEMISTRY METHOD 08/10/2024 12:42 PM EST [facility] Potassium 3.3(L) 3.5 - 5.5 mmol/L LAB CHEMISTRY METHOD 08/10/2024 12:42 PM [facility] Chloride 106 96 - 110 mmol/L LAB CHEMISTRY METHOD 08/10/2024 12:42 PM [facility] CO2 29 21 - 32 mmol/L LAB CHEMISTRY METHOD 08/10/2024 12:42 PM [facility] Anion Gap 9 3 - 11 LAB CHEMISTRY METHOD 08/10/2024 12:42 PM [facility] Glucose 94 70 - 100 mg/dL LAB CHEMISTRY METHOD 08/10/2024 12:42 PM [facility] BUN 18 5 - 25 mg/dL LAB CHEMISTRY METHOD 08/10/2024 12:42 PM [facility] Creatinine 0.62 0.50 - 1.10 mg/dL LAB CHEMISTRY METHOD 08/10/2024 12:42 PM [facility] eGFR 95 >=60 mL/min/1. 73m2 LAB CHEMISTRY METHOD 08/10/2024 12:42 PM [facility] Comment:Calculation based on the Chronic Kidney Disease Epidemiology Collaboration (CKD-EPI) equation refit without adjustment for race. BUN/Creatinine Ratio 29.0 LAB CHEMISTRY METHOD 08/10/2024 12:42 PM [facility] Calcium 9.2 8.5 - 10.5 mg/dL LAB CHEMISTRY METHOD 08/10/2024 12:42 PM [facility] AST (SGOT) 38 10 - 42 unit/L LAB CHEMISTRY METHOD 08/10/2024 12:42 PM [facility] ALT (SGPT) 68(H) 10 - 60 unit/L LAB CHEMISTRY METHOD 08/10/2024 12:42 PM [facility] Alkaline Phosphatase 145(H) 42 - 121 unit/L LAB CHEMISTRY METHOD 08/10/2024 12:42 PM [facility] Total Protein 5.8(L) 6.0 - 8.0 g/dL LAB CHEMISTRY METHOD 08/10/2024 12:42 PM EST [facility] Albumin 2.7(L) 3.2 - 5.0 g/dL LAB CHEMISTRY METHOD 08/10/2024 12:42 PM [facility] Total Bilirubin 0.3 0.0 - 1.4 mg/dL LAB CHEMISTRY METHOD 08/10/2024 12:42 PM [facility] Blood Venous blood specimen / Unknown Venipuncture / Unknown 08/10/2024 8:28 AM EST 08/10/2024 11:20 AM EST us Carmela Thomas MD LAB BLOOD ORDERABLES Fin al Result [facility] [address] [place] [address], * (ABNORMAL) Complete blood count (08/10/2024 8:28 AM EST) WBC 10.7 4.8 - 10.8 K/mcL LAB HEMETOLOGY METHOD 08/10/2024 1:20 PM [facility] RBC 3.10(L) 3.80 - 4.80 M/mcL LAB HEMETOLOGY METHOD 08/10/2024 1:20 PM [facility] Hemoglobin 9.3(L) 11.5 - 16.0 g/dL LAB HEMETOLOGY METHOD 08/10/2024 1:20 PM [facility] Hematocrit 29.3(L) 35.0 - 47.0 % LAB HEMETOLOGY METHOD 08/10/2024 1:20 PM [facility] MCV 95.8 79.0 - 98.0 FL LAB HEMETOLOGY METHOD 08/10/2024 1:20 PM [facility] MCH 30.4 27.0 - 32.0 pcg LAB HEMETOLOGY METHOD 08/10/2024 1:20 PM EST [facility] MCHC 31.7(L) 32.0 - 37.0 g/dL LAB HEMETOLOGY METHOD 08/10/2024 1:20 PM [facility] RDW 14.2 11.0 - 15.0 % LAB HEMETOLOGY METHOD 08/10/2024 1:20 PM [facility] Platelets 280 130 - 400 K/mcL LAB HEMETOLOGY METHOD 08/10/2024 1:20 PM [facility] MPV 10.2 7.0 - 11.0 FL LAB HEMETOLOGY METHOD 08/10/2024 1:20 PM [facility] NRBC 0.0 <1.0 % LAB HEMETOLOGY METHOD 08/10/2024 1:20 PM [facility] NRBC Absolute 0.00 <0.10 K/mcL LAB HEMETOLOGY METHOD 08/10/2024 1:20 PM [facility] Blood Venous blood specimen / Unknown Venipuncture / Unknown 08/10/2024 8:28 AM EST 08/10/2024 11:21 AM EST us Carmela Thomas MD LAB BLOOD ORDERABLES Fin al Result [facility] [address] [place] [address], documented in this encounter Visit Diagnoses Diagnosis Heart failure, unspecified (CMS/HCC V24, CMS/HCC V28) Heart failure, unspecified documented in this encounter Care Teams Rotary Soil Stabilizer Relationship Specialty Start Date End Date Sushil Stewart MD [address] [place] [address] [address] [place], [place] PCP - General Internal Medicine 10/14/17 documented as of this encounter
--- OUTSIDE RECORDS SUMMARY | 2025-04-13 18:42 | XMS_ITS | Encounter Summary ---
Author Organization [facility] Address [address] [place] [phone] Care Team Providers Care Operations Associate Name Role Phone Sushil Stewart MD Primary Care Provider Encounter Details Date Type Department Care Team (Late st Contact Info) Description 08/23/[address] [facility] - Main Lab [address] [facility] [place] [address] Carmela Thomas MD [address] [address] Heart failure, unspecified (CMS/HCC V24, CMS/HCC V28) [...] unspecified documented in this encounter Care Teams Operations Associate Relationship Specialty Start Date End Date Sushil Stewart MD [address] [place], [place] PCP - General Internal Medicine 10/14/17 documented as of this encounter
== END 2025-04-13 14:24 | disposition home or self-care (01) ==
LOC: HO.HAP 14:23
PROVIDERS: Visit Provider Internal Medicine
DX: Z46.1 Encounter for fitting and adjustment of hearing aid (principal); H91.93 Unspecified hearing loss, bilateral
CPT/HCPCS: V5264

== ENCOUNTER 2025-04-26 16:03 | Outpatient (AMB) | payer MEDICARE, BC, SELFPAY ==
--- NOTE | 2025-04-26 16:07 | AM.OFFWIN_ITS ---
Intake Vital Signs 04/26/25 16:08 Height 5 ft 1 in Weight 124 lb BMI 23.4 BP 138/72 Blood Pressure Location Lt brachial Position Sitting Pulse 94 Pulse Source Pulse Oximeter Temp 98.1 F Temp Source Oral Pulse Oximetry (%) 95 Oxygen Delivery Method Room Air Intake Visit Reasons: EP-arms rash Intake Note: pt presents with bumpy and itchy rash to bilateral forearms x1 and newly presenting to posterior hairline Patient Tobacco Use Status: Former Tobacco user Allergies codeine (CODEINE) Allergy (Unknown, Verified 04/26/25 16:18) Hives lorazepam (From Ativan) Adverse Reaction (Verified 04/26/25 16:18) Hallucinations Do you need a note to return to daycare/school/sports/work: No HPI HPI Comments History of Present Illness Details History - The patient is a 74-year-old female pr esenting with a rash. - She has been having a rash on the left forearm for the past month with no resolution despite treating it with creams. - She states that she now has it on the right forearm. - The rash has been present for almost a month and is extremely itchy. - The patient has tried topical treatmen ts without significant relief and has no history of eczema, allergies, or asthma. - The patient is on medication for Multi ple Sclerosis and is overdue for her next IV dose. - She has no new foods, lotions, soaps, detergents, medications, pets, travel, clothes. - She has no joint pain or fevers. Physical Exam General: Cooperative, healthy appearing, comfortable, no acute distress and well developed Orientation: Patient oriented x3 Limitations: No limitations Mouth: normal, moist oral mucosa Neck: Normal visual inspection and Yes full ROM Respiratory: Normal respiratory effort and able to speak in complete sentences. Clear to auscultation bilaterally. No w/r/r noted. Cardiovascular: RRR, no m/r/g noted. Normal S1 and S2. No m/r/g noted. Skin: Erythematous, dry, macular rash noted on the forearms bilaterally. Some excorations noted. No lesions. No discharge noted. No bleeding noted. No warmth noted. No induration noted. Patient was informed and verbally consented to the use of an ambient scribe for clinic note documentation during this visit [facility] Medical History MDD (major depressive disorder), recurrent episode Essential hypertension Leukocytosis History of CAD (coronary artery disease) Peripheral vascular disease Chronic back pain GERD (gastroesophageal reflux disease) High cholesterol HTN (hypertension) Immune disorder COPD (chronic obstructive pulmonary disease) Multiple sclerosis Surgical History History of angioplasty History of heart artery stent Social History Household Members: Significant Other Housing: Apartment Do you presently have visiting nurse or other home services: Yes Alcohol intake: never Comment: 5 miinute checks Patient Tobacco Use Status: Former Tobacco user Tobacco use type: Cigarette Cigarette Packs Per Day: 1 Cigarettes Per Day: 20.0 Advance Directives Date on File: 11/22/22 service: No Current occupational status: retired Sexual orientation: Straight/Heterosexual Review of Systems Const All systems reviewed & are unremarkable except as noted in HPI and below Physical Exam Vital Signs: Last Vital Signs Temp 98.1 F 04/26/25 16:08 Pulse 94 04/26/25 16:08 BP 138/72 04/26/25 16:08 Pulse Ox 95 04/26/25 16:08 Oxygen Delivery Method Room Air 04/26/25 16:08 BMI result Body Mass Index 23.4 Assessment & Plan Assessment & Plan (1) Rash: Code(s): R21 - Rash and other nonspecific skin eruption Plan Most likely eczema vs allergic reaction Plan - betamethasome cream to the areas - prednisone for 5 days - can add pepcid or zyrtec as needed for itching - recommend a mail carrier - follow up with PCP Medications: New betamethasone dipropionate 0.05% 1 appl topical DAILY PRN 45 grams 0RF skin irritation 7 days prednisone 40 mg (2 x 20 mg) PO DAILY 10 tabs 0RF 5 days Coding Level of Care Code Est Pt Level 3 (80834) Diagnoses Rash R21
[2025-04-26 16:08] VITALS: BP 138/72; PULSE 94; TEMP 36.7; O2SAT 95; BMI 23.4
--- OUTSIDE RECORDS SUMMARY | 2025-04-26 17:55 | XMS_ITS | Encounter Summary ---
Author Organization [facility] Address [address] [place] [address] Care Team Providers Care Tank Driver Name Role Phone Sushil Stewart MD Primary Care Provider Encounter Details Date Type Department Care Team (Late st Contact Info) Description 08/23/2024 Lab Requisition [facility] - Main Lab [address] [facility] [place] [address] Carmela Thomas MD [address] [address] Heart failure, unspecified (CMS/HCC V24, CMS/HCC V28) [...] unspecified documented in this encounter Care Teams Tank Driver Relationship Specialty Start Date End Date Sushil Stewart MD [address] [place], [place] PCP - General Internal Medicine 10/14/17 documented as of this encounter
--- OUTSIDE RECORDS SUMMARY | 2025-04-26 17:55 | XMS_ITS | Encounter Summary ---
Author Organization [facility] Address [address] [place] [address] Care Team Providers Care Instructor Of Spanish Name Role Phone Sushil Stewart MD Primary Care Provider [phone] Encounter Details Date Type Department Care Team (Late st Contact Info) Description 08/16/2024 Lab Requisition [facility] - Main Lab [address] [place] [address] Carmela Thomas MD [address] [phone] Heart failure, unspecified (CMS/HCC V24, CMS/HCC V28) [...] CHEMISTRY METHOD 08/17/2024 2:03 PM EST [facility] Potassium 3.7 3.5 - 5.5 mmol/L LAB CHEMISTRY METHOD 08/17/2024 2:[address] [facility] Chloride 102 96 - 110 mmol/L LAB CHEMISTRY METHOD 08/17/2024 2:[address] [facility] CO2 30 21 - 32 mmol/L LAB CHEMISTRY METHOD 08/17/2024 2:[address] [facility] Anion Gap 7 3 - 11 LAB CHEMISTRY METHOD 08/17/2024 2:[address] [facility] Glucose 157(H) 70 - 100 mg/dL LAB CHEMISTRY METHOD 08/17/2024 2:[address] [facility] BUN 13 5 - 25 mg/dL LAB CHEMISTRY METHOD 08/17/2024 2:[address] [facility] Creatinine 0.65 0.50 - 1.10 mg/dL LAB CHEMISTRY METHOD 08/17/2024 2:[address] [facility] eGFR 94 >=60 mL/min/1. 73m2 LAB CHEMISTRY METHOD 08/17/2024 2:[address] [facility] Comment:Calculation based on the Chronic Kidney Disease Epidemiology Collaboration (CKD-EPI) equation refit without adjustment for race. BUN/Creatinine Ratio 20.0 LAB CHEMISTRY METHOD 08/17/2024 2:[address] [facility] Calcium 9.8 8.5 - 10.5 mg/dL LAB CHEMISTRY METHOD 08/17/2024 2:[address] [facility] AST (SGOT) 23 10 - 42 unit/L LAB CHEMISTRY METHOD 08/17/2024 2:[address] [facility] ALT (SGPT) 70(H) 10 - 60 unit/L LAB CHEMISTRY METHOD 08/17/2024 2:[address] [facility] Alkaline Phosphatase 177(H) 42 - 121 unit/L LAB CHEMISTRY METHOD 08/17/2024 2:[address] [facility] Total Protein 6.0 6.0 - 8.0 g/dL LAB CHEMISTRY METHOD 08/17/2024 2:[address] [facility] Albumin 2.9(L) 3.2 - 5.0 g/dL LAB CHEMISTRY METHOD 08/17/2024 2:[address] [facility] Total Bilirubin 0.2 0.0 - 1.4 mg/dL LAB CHEMISTRY METHOD 08/17/2024 2:[address] [facility] Blood Venous blood specimen / Unknown Venipuncture / Unknown 08/17/2024 9:34 AM EST 08/17/2024 11:30 AM EST us Carmela Thomas MD LAB BLOOD ORDERABLES Fin al Result [facility] [address] [place] [address], * (ABNORMAL) Complete blood count (08/17/2024 9:34 AM EST) WBC 13.9(H) 4.8 - 10.8 K/mcL LAB HEMETOLOGY METHOD 08/17/2024 1:[address] [facility] RBC 3.10(L) 3.80 - 4.80 M/mcL LAB HEMETOLOGY METHOD 08/17/2024 1:[address] [facility] Hemoglobin 9.4(L) 11.5 - 16.0 g/dL LAB HEMETOLOGY METHOD 08/17/2024 1:[address] [facility] Hematocrit 30.2(L) 35.0 - 47.0 % LAB HEMETOLOGY METHOD 08/17/2024 1:[address] [facility] MCV 97.7 79.0 - 98.0 FL LAB HEMETOLOGY METHOD 08/17/2024 1:[address] [facility] MCH 30.4 27.0 - 32.0 pcg LAB HEMETOLOGY METHOD 08/17/2024 1:30 PM EST [facility] MCHC 31.1(L) 32.0 - 37.0 g/dL LAB HEMETOLOGY METHOD 08/17/2024 1:[address] [facility] RDW 14.0 11.0 - 15.0 % LAB HEMETOLOGY METHOD 08/17/2024 1:[address] [facility] Platelets 427(H) 130 - 400 K/mcL LAB HEMETOLOGY METHOD 08/17/2024 1:[address] [facility] MPV 10.3 7.0 - 11.0 FL LAB HEMETOLOGY METHOD 08/17/2024 1:[address] [facility] NRBC 0.0 <1.0 % LAB HEMETOLOGY METHOD 08/17/2024 1:[address] [facility] NRBC Absolute 0.00 <0.10 K/mcL LAB HEMETOLOGY METHOD 08/17/2024 1:[address] [facility] Blood Venous blood specimen / Unknown Venipuncture / Unknown 08/17/2024 9:34 AM EST 08/17/2024 11:30 AM EST us Carmela Thomas MD LAB BLOOD ORDERABLES Fin al Result Performing Organization Address City/State/[facility] Co de Phone Number [facility] [address] [place] [address], documented in this encounter Visit Diagnoses Diagnosis Heart failure, unspecified (CMS/HCC V24, CMS/HCC V28) Heart failure, unspecified documented in this encounter Care Teams Instructor Of Spanish Relationship Specialty Start Date End Date Sushil Stewart MD [address] [place] [address] [address] [place], [place] PCP - General Internal Medicine 10/14/17 documented as of this encounter
--- OUTSIDE RECORDS SUMMARY | 2025-04-26 17:55 | XMS_ITS | Encounter Summary ---
Author Organization [facility] Address [address] [place] [address] Care Team Providers Care Instructor Adjunct Surgical Technician Name Role Phone Sushil Stewart MD Primary Care Provider [phone] Encounter Details Date Type Department Care Team (Late st Contact Info) Description 08/01/2024 Lab Requisition [facility] - Main Lab [address] [place] [address] Carmela Thomas MD [address] [phone] Heart failure, unspecified (CMS/HCC V24, CMS/HCC V28) [...] CHEMISTRY METHOD 08/03/2024 11:51 AM EST [facility] Potassium 3.2(L) 3.5 - 5.5 [...] [facility] Comment:Calculation based on the [...] LAB CHEMISTRY METHOD 08/03/2024 11:51 AM EST [facility] Albumin 3.0(L) 3.2 - 5.0 [...] al Result [facility] [address] [place] [address], * (ABNORMAL) Complete blood count (08/03/2024 7:22 [...] LAB HEMETOLOGY METHOD 08/03/2024 11:15 AM EST [facility] MCHC 32.2 32.0 - 37.0 g/dL LAB HEMETOLOGY METHOD 08/03/2024 11:15 AM [facility] RDW 13.5 11.0 - 15.0 % LAB HEMETOLOGY METHOD 08/03/2024 11:15 AM [facility] Platelets 347 130 - 400 K/mcL LAB HEMETOLOGY METHOD 08/03/2024 11:15 AM [facility] MPV 10.4 7.0 - [...] Result [facility] [address] [place] [address], documented in this encounter Visit Diagnoses Diagnosis Heart failure, unspecified (CMS/HCC V24, CMS/HCC V28) Heart failure, unspecified documented in this encounter Care Teams Instructor Adjunct Surgical Technician Relationship Specialty Start Date End Date Sushil Stewart MD [address] [place] [address] [address] [place], [place] PCP - General Internal Medicine 10/14/17 documented as of this encounter
--- OUTSIDE RECORDS SUMMARY | 2025-04-26 17:55 | XMS_ITS | Encounter Summary ---
Author Organization [facility] Address [address] [place] [address] Care Team Providers Care Cane Loader Name Role Phone Sushil Stewart MD Primary Care Provider [phone] Encounter Details Date Type Department Care Team (Late st Contact Info) Description 07/27/2024 Lab Requisition [facility] - Main Lab [address] [place] [address] Carmela Thmoas MD [address] [phone] Heart failure, unspecified (CMS/HCC V24, CMS/HCC V28) [...] PM [facility] Comment:Calculation based on the Chronic [...] al Result [facility] [address] [place] [address], * (ABNORMAL) Complete blood count (07/27/2024 8:36 [...] LAB HEMETOLOGY METHOD 07/27/2024 1:03 PM EST [facility] MCHC 32.6 32.0 - 37.0 g/dL LAB HEMETOLOGY METHOD 07/27/2024 1:03 PM [facility] RDW 13.4 11.0 - 15.0 [...] Result [facility] [address] [place] [address], documented in this encounter Visit Diagnoses Diagnosis Heart failure, unspecified (CMS/HCC V24, CMS/HCC V28) Heart failure, unspecified documented in this encounter Care Teams Cane Loader Relationship Specialty Start Date End Date Sushil Stewart MD [address] [place] [address] [address] [place], [place] PCP - General Internal Medicine 10/14/17 documented as of this encounter
--- OUTSIDE RECORDS SUMMARY | 2025-04-26 17:55 | XMS_ITS | Encounter Summary ---
Author Organization [facility] Address [address] [place] [address] Care Team Providers Care Manager Intelligence Name Role Phone Sushil Stewart MD Primary Care Provider [phone] Encounter Details Date Type Department Care Team (Late st Contact Info) Description 08/08/2024 Lab Requisition [facility] - Main Lab [address] [place] [address] Carmela Thomas MD [address] [phone] Heart failure, unspecified (CMS/HCC V24, CMS/HCC V28) [...] CHEMISTRY METHOD 08/10/2024 12:42 PM EST [facility] Potassium 3.3(L) 3.5 - 5.5 mmol/L LAB CHEMISTRY METHOD 08/10/2024 12:42 PM [facility] Chloride 106 96 - 110 mmol/L LAB CHEMISTRY METHOD 08/10/2024 12:42 PM [facility] CO2 29 21 - 32 mmol/L LAB CHEMISTRY METHOD 08/10/2024 12:42 PM [facility] Anion Gap 9 3 - 11 LAB CHEMISTRY METHOD 08/10/2024 12:42 PM [facility] Glucose 94 70 - 100 mg/dL LAB CHEMISTRY METHOD 08/10/2024 12:42 PM [facility] BUN 18 5 - 25 mg/dL LAB CHEMISTRY METHOD 08/10/2024 12:42 PM [facility] Creatinine 0.62 0.50 - 1.10 mg/dL LAB CHEMISTRY METHOD 08/10/2024 12:42 PM [facility] eGFR 95 >=60 mL/min/1. 73m2 LAB CHEMISTRY METHOD 08/10/2024 12:42 PM [facility] Comment:Calculation based on the Chronic Kidney Disease Epidemiology Collaboration (CKD-EPI) equation refit without adjustment for race. BUN/Creatinine Ratio 29.0 LAB CHEMISTRY METHOD 08/10/2024 12:42 PM [facility] Calcium 9.2 8.5 - 10.5 mg/dL LAB CHEMISTRY METHOD 08/10/2024 12:42 PM [facility] AST (SGOT) 38 10 - 42 unit/L LAB CHEMISTRY METHOD 08/10/2024 12:42 PM [facility] ALT (SGPT) 68(H) 10 - 60 unit/L LAB CHEMISTRY METHOD 08/10/2024 12:42 PM [facility] Alkaline Phosphatase 145(H) 42 - 121 unit/L LAB CHEMISTRY METHOD 08/10/2024 12:42 PM [facility] Total Protein 5.8(L) 6.0 - 8.0 g/dL LAB CHEMISTRY METHOD 08/10/2024 12:42 PM EST [facility] Albumin 2.7(L) 3.2 - 5.0 g/dL LAB CHEMISTRY METHOD 08/10/2024 12:42 PM [facility] Total Bilirubin 0.3 0.0 - 1.4 mg/dL LAB CHEMISTRY METHOD 08/10/2024 12:42 PM [facility] Blood Venous blood specimen / Unknown Venipuncture / Unknown 08/10/2024 8:28 AM EST 08/10/2024 11:20 AM EST us Carmela Thomas MD LAB BLOOD ORDERABLES Fin al Result [facility] [address] [place] [address], * (ABNORMAL) Complete blood count (08/10/2024 8:28 AM EST) WBC 10.7 4.8 - 10.8 K/mcL LAB HEMETOLOGY METHOD 08/10/2024 1:20 PM [facility] RBC 3.10(L) 3.80 - 4.80 M/mcL LAB HEMETOLOGY METHOD 08/10/2024 1:20 PM [facility] Hemoglobin 9.3(L) 11.5 - 16.0 g/dL LAB HEMETOLOGY METHOD 08/10/2024 1:20 PM [facility] Hematocrit 29.3(L) 35.0 - 47.0 % LAB HEMETOLOGY METHOD 08/10/2024 1:20 PM [facility] MCV 95.8 79.0 - 98.0 FL LAB HEMETOLOGY METHOD 08/10/2024 1:20 PM [facility] MCH 30.4 27.0 - 32.0 pcg LAB HEMETOLOGY METHOD 08/10/2024 1:20 PM EST [facility] MCHC 31.7(L) 32.0 - 37.0 g/dL LAB HEMETOLOGY METHOD 08/10/2024 1:20 PM [facility] RDW 14.2 11.0 - 15.0 % LAB HEMETOLOGY METHOD 08/10/2024 1:20 PM [facility] Platelets 280 130 - 400 K/mcL LAB HEMETOLOGY METHOD 08/10/2024 1:20 PM [facility] MPV 10.2 7.0 - 11.0 FL LAB HEMETOLOGY METHOD 08/10/2024 1:20 PM [facility] NRBC 0.0 <1.0 % LAB HEMETOLOGY METHOD 08/10/2024 1:20 PM [facility] NRBC Absolute 0.00 <0.10 K/mcL LAB HEMETOLOGY METHOD 08/10/2024 1:20 PM [facility] Blood Venous blood specimen / Unknown Venipuncture / Unknown 08/10/2024 8:28 AM EST 08/10/2024 11:21 AM EST us Carmela Thomas MD LAB BLOOD ORDERABLES Fin al Result [facility] [address] [place] [address], documented in this encounter Visit Diagnoses Diagnosis Heart failure, unspecified (CMS/HCC V24, CMS/HCC V28) Heart failure, unspecified documented in this encounter Care Teams Manager Intelligence Relationship Specialty Start Date End Date Sushil Stewart MD [address] [place] [address] [address] [place], [place] PCP - General Internal Medicine 10/14/17 documented as of this encounter
--- OUTSIDE RECORDS SUMMARY | 2025-04-26 17:55 | XMS_ITS | Clinical Summary ---
Author Organization [address] [facility] Address [address] [place] [address] Phone Care Team Providers Care Network Contractor Name Role Phone Sushil Stewart MD Primary Care Provider [phone] Surgical History Surgery Date Site/Laterality Comments BACK SURGERY PROCEDURE: HISTORICAL BACK SURGERY; COMMENT: x 3 OTHER SURGICAL HISTORY PROCEDURE: HISTORY OTHER; COMMENT: sinus surgery HYSTERECTOMY PROCEDURE: HISTORICAL HYSTERECTOMY CHOLECYSTECTOMY PROCEDURE: HISTORICAL CHOLECYSTECTOMY ANGIOPLASTY PROCEDURE: HISTORICAL ANGIOPLASTY W/STENT OTHER SURGICAL HISTORY 11/03/2021 PROCEDURE: DE ARTHRD ANT INTERBODY MIN DSC CRV BELOW C2; COMMENT: C5-6 ACDF, Dr. Doss Medical History Medical History Date Comments COPD (chronic obstructive pu lmonary disease) ([facility] V24, [facility] V28) 04/11/2018 DX:COPD (chronic o bstructive pulmonary disease) ([facility]) GERD (gastroesophageal reflu x disease) 04/11/2018 DX:GERD [...] ORDERABLES Fin al Result [facility] [address] [place] [address], from Last 3 Months or Most Recently Relevant to Health Maintenance Insurance MEDICARE Care Teams Network Contractor Relationship Specialty Start Date End Date Sushil Stewart MD [address] [place] [address] Rd [address] [place], [place] PCP - General Internal Medicine 10/14/17
== END 2025-04-26 16:54 | disposition home or self-care (01) ==
PROVIDERS: Visit Provider Physician Assistant Medical
DX: R21 Rash and other nonspecific skin eruption (principal)

== ENCOUNTER → 2025-04-26 16:03 | Outpatient (BNVA) | payer MEDICARE, BC, SELFPAY | PROVIDERS: Visit Provider Physician Assistant Medical | DX: R21 Rash and other nonspecific skin eruption (principal) | CPT/HCPCS: 99212 ==

== ENCOUNTER 2025-05-04 10:33 | Outpatient (REF) | payer SELFPAY | END 2025-05-04 10:34 | disposition home or self-care (01) | LOC: HO.HAP 10:33 | PROVIDERS: Visit Provider Internal Medicine | DX: Z46.1 Encounter for fitting and adjustment of hearing aid (principal); H91.93 Unspecified hearing loss, bilateral | CPT/HCPCS: 92593 ==

== ENCOUNTER 2025-05-07 16:17 | Outpatient (AMB) | payer MEDICARE, BC, SELFPAY ==
--- OUTSIDE RECORDS SUMMARY | 2025-05-04 11:57 | XMS_ITS | Continuity of Care Document ---
Author Organization [facility] ter Address [address] [place] [id number]- Care Team Providers Care Form Maker Name Role Phone Sushil Stewart MD Primary Care Physician [phone] Encounter [facility] Date(s): 06/04/24 - 05/04/[address] [address] Encounter Diagnosis Multiple sclerosis(Final) - Atherosclerotic heart disease of [place] coronary artery without angina pectoris (Final) - Gastro-esophageal reflux disease without esophagitis(Final) - Age-related osteoporosis without current pathological fracture(Final) - Nonfamilial hypogammaglobulinemia(Final) - Peripheral vascular disease, unspecified(Final) - Essential (primary) hypertension(Final) - 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) - nursing home (current) use of inhaled steroids(Final) - nursing home (current) use of systemic steroids(Final) - Other half-way (current) drug therapy(Final) - Discharge Disposition: A-D/C Home Attending Physician: Sam Quiros NP Admitting Physician: Sam Quiros NP Referring Physician: Sushil Stewart MD Encounter Type: Disch Recurring OP Allergies, Adverse Reactions, Alerts Substance Criticality Severity Reaction Reaction Severity Status codeine High criticality Severe hives Act david Immunizations Given and Recorded Vaccine Date Status Refusal Reason SARS-CoV-2 (COVID-19) mRNA BNT-162b2 vac 09/15/20 Given SARS-CoV-2 (COVID-19) mRNA BNT-162b2 vac 08/25/20 Given influenza virus vaccine, inactivated 1 05/09/19 Gi elliot 1Early/Late Reason: Med Not Available Medications acetaminophen/butalbital/caffeine 325 mg-50 mg-40 mg oral tablet 1 tablet, By Mouth, Every 4 hours, PRN NEEDED, # 5 tablet, 3 Refills, Maintenance, 02/26/25 12:24:00 PM EDT, [id number], 2, 1 tablet By Mouth Every 4 hours,PRN: NEEDED, 160.2, cm, 02/04/25 13:39:00 EDT, Height, 60.6, kg, 11/04/23 11:21:00 EDT, Dry Weight Start Date: 02/26/25 Status: Ordered Medication Dispense Status: Completed Quantity: 5.0 Unit: tablet Total Allowed Fills: 4 Fills Dispensed: 0 Aimovig SureClick Autoinjector-aooe 140 mg/mL subcutaneous solution = 140 mg, Subcutaneous Injection, Every 28 days, # 1 kit, 7 Refills, Maintenance, 04/13/25 10:44:00AM EDT, [id number], insurance wants emgality or aimovig 70mg, 160.2, cm, 04/02/25 17:00:00 EDT, Height, 54.5, kg, 03/03/25 16:26:00 EDT, Dry Weight Start Date: 04/13/25 Status: Ordered Medication Dispense Status: Completed Quantity: 1.0 Unit: kit Total Allowed Fills: 8 Fills Dispensed: 0 Albuterol (Eqv-Ventolin HFA) 90 mcg/inh inhalation aerosol See Instructions, INHALE 2 PUFFS BY MOUTH EVERY 4 HOURS NEEDED FOR WHEEZING, # 18 Gm, 11 Refills, Maintenance, 03/29/25 2:53:00 PM EDT, [id number], INHALE 2 PUFFS BY MOUTH EVERY 4 HOURS ASNEEDED FOR WHEEZING, 160.2, cm, 03/29/25 14:24:00 EDT, Height, 54.5, kg, 03/03/25 16:26:00 EDT, DryWeight Start Date: 03/29/25 Status: Ordered Medication Dispense Status: Completed Quantity: 18.0 Unit: g Total Allowed Fills: 12 Fills Dispensed: 0 albuterol-ipratropium 3 mg-0.5 mg/3 ml inhalation solution 3 mL, Neb, 4 times a day, PRN as needed for shortness of breath or wheezing, # 360 mL, 11 Refills, Maintenance, 03/29/25 2:54:00 PM EDT, Solution, [id number], Partial fill upon patient request if the prescription is for a schedule II opioid drug., 3 mL Neb 4 times a day,PRN:as needed for shortness of breath or wheezing, 160.2, cm, 03/29/25 14:24:00 EDT, Height, 54.5, kg, 03/03/25 16:26:00 EDT, Dry Weight Start Date: 03/29/25 Status: Ordered Medication Dispense Status: Completed Quantity: 360.0 Unit: mL Total Allowed Fills: 12 Fills Dispensed: 0 aspirin 81 mg oral capsule 1 capsule = 81 mg, By Mouth, Daily, 0 Refills, Maintenance, 12/01/21 2:54:00 PM EDT, Partial fill upon patient request if the prescription is for a schedule II opioid drug. Start Date: 12/01/21 Status: Ordered Medication Dispense Status: Completed Total Allowed Fills: 1 Fills Dispensed: 0 atorvastatin 40 mg oral tablet 1 tablet = 40 mg, By Mouth, Daily at bedtime, # 90 tablet, 5 Refills, Maintenance, 07/15/23 2:41:00 PM EST, Tablet, [id number], Partial fill upon patient request if the prescription is for a schedule II opioid drug., 160.2, cm, 03/27/23 16:27:00 EDT, Height, 55.4, kg, 02/23/23 12:42:00 EDT, Dry Weight Start Date: 07/15/23 Status: Ordered Medication Dispense Status: Completed Quantity: 90.0 Unit: tablet Total Allowed Fills: 6 Fills Dispensed: 0 Azithromycin 5 Day Dose Pack 250 mg oral tablet 1 pack/packet, By Mouth, Once, # 6 tablet, 0 Refills, Soft Stop, 11/22/23 3:42:00 PM EDT, Tablet, [id number], Partial fill upon patient request if the prescription is for a schedule II opioid drug., 160.2, cm, 11/22/23 15:23:00 EDT, Height, 60.6, kg, 11/04/23 11:21:00 EDT, Dry Weight Start Date: 11/22/23 Status: Ordered Medication Dispense Status: Completed Quantity: 6.0 Unit: tablet Total Allowed Fills: 1 Fills Dispensed: 0 Citracal Petites 200 mg-250 intl units oral tablet 2 tablet, By Mouth, 2 times a day, # 200 tablet, 11 Refills, Maintenance, 03/21/20 3:54:00 PM EDT, Tablet, [id number], 2 tablet By Mouth 2 times a day, 160, cm, 03/21/20 15:29:00 EDT, Height, 58.7, kg, 05/08/19 17:37:00 EST, Dry Weight Start Date: 03/21/20 Status: Ordered Medication Dispense Status: Completed Quantity: 200.0 Unit: tablet Total Allowed Fills: 12 Fills Dispensed: 0 Cuvitru 20% subcutaneous solution = 10 Gm, Subcutaneous Injection, Every week, for 90 days, # 12 each, 11 Refills, Hard Stop 11/08/27 2:54:00 PM EDT, 11/23/24 2:54:00 PM EDT, [facility] [place], Partial fill upon patient request if the prescription is for a schedule II opioid drug., 160.2, cm, 05/01/24 16:10:00 EST, Height, 60.6, kg, 11/04/23 11:21:00 EDT, Dry Weight Start Date: 11/23/24 Stop Date: 11/08/27 Status: Ordered Medication Dispense Status: Completed Quantity: 12.0 Unit: each Total Allowed Fills: 12 Fills Dispensed: 0 Cuvitru 20% subcutaneous solution = 10 Gm, Subcutaneous Injection, Every week, for 90 days, # 12 each, 11 Refills, Hard Stop 09/01/26 3:48:00 PM EDT, 09/17/23 3:48:00 PM EDT, [facility], Partial fill upon patient request if the prescription is for a schedule II opioid drug., 154.94, cm, 09/10/23 12:20:00 EDT, Height, 62.3,kg, 09/01/23 15:31:00 EDT, Dry Weight Start Date: 09/17/23 Stop Date: 09/01/26 Status: Ordered Medication Dispense Status: Completed Quantity: 12.0 Unit: each Total Allowed Fills: 12 Fills Dispensed: 0 Cymbalta 60 mg oral enteric coated capsule 1 capsule = 60 mg, By Mouth, Daily, # 30 capsule, 0 Refills, Maintenance, 12/15/12 7:48:07 AM EDT, ECCapsule Start Date: 12/15/12 Status: Ordered Medication Dispense Status: Completed Quantity: 30.0 Unit: capsule Total Allowed Fills: 1 Fills Dispensed: 0 EPINEPHrine 0.3 mg injectable solution See Instructions, FOR SEVERE ALLERGIC REACTION, INJECT 1 PEN INTO THIGH MUSCLE. CALL 911. IF SYMPTOMS CONTINUE, MAY REPEAT INJECTION IN 5-15 MINUTES., # 2 Unknown, 1 Refills, Maintenance, 04/30/22 10:45:00 AM EST, [facility], 160.2, cm, 04/19/22 15:57:00 EDT, Height, 59, kg, 12/04/21 6:10:00 EDT, Dry Weight Start Date: 04/30/22 Status: Ordered Medication Dispense Status: Completed Quantity: 2.0 Unit: Unknown Total Allowed Fills: 1 Fills Dispensed: 0 famotidine 20 mg oral tablet 20 mg, By Mouth, 2 times a day, # 60 tablet, Refills 0, Tot. Refills 0, Maintenance, 09/10/23 1:37:00 PM EDT, Route to Pharmacy Electronically, [facility], Partial fill upon patient request if the prescription is for a schedule II opioid drug., 154.94, cm, 09/10/23 12:20:00 EDT, Height, 62.3, kg, 09/01/23 15:31:00 EDT, Dry Weight Start Date: 09/10/23 Stop Date: 10/10/23 Status: Ordered Medication Dispense Status: Completed Quantity: 60.0 Unit: tablet Total Allowed Fills: 1 Fills Dispensed: 0 fluticasone 50 mcg/inh nasal spray See Instructions, USE 1 SPRAY IN EACH NOSTRIL TWICE A DAY, # 48 mL, 1 Refills, [id number], 90,USE 1 SPRAY IN EACH NOSTRIL TWICE A DAY, 160.2, cm, 12/04/21 6:03:00 EDT, Height, 59, kg, 12/04/21 6:10:00 EDT, Dry Weight Start Date: 01/05/22 Status: Ordered Medication Dispense Status: Completed Quantity: 48.0 Unit: mL Total Allowed Fills: 1 Fills Dispensed: 0 levalbuterol 1.25 mg/0.5 mL inhalation solution 0.5 mL, Inhalation, 3 times a day, PRN NEEDED FOR WHEEZING, # 30 Unknown, 10 Refills, Maintenance, 04/11/23 12:16:00 PM EDT, [facility], 160.2, cm, 03/27/23 16:27:00 EDT, Height, 55.4, kg, 02/23/23 12:42:00 EDT, Dry Weight Start Date: 04/11/23 Status: Ordered Medication Dispense Status: Completed Quantity: 30.0 Unit: Unknown Total Allowed Fills: 1 Fills Dispensed: 0 metoprolol 50 mg oral tablet 50 mg, 1, tablet, By Mouth, 2 times a day, # 180 tablet, Refills 3, Tot. Refills 3, Maintenance, 10/15/23 4:58:00 PM EDT, Route to Pharmacy Electronically, [facility][id number], Partial fill upon patient request if the prescription is for a schedule II opioid drug., 154.94, cm, 10/15/23 16:34:00 EDT, Height, 62.3, kg, 09/01/23 15:31:00 EDT, Dry Weight Start Date: 10/15/23 Status: Ordered Medication Dispense Status: Completed Quantity: 180.0 Unit: tablet Total Allowed Fills: 4 Fills Dispensed: 0 nicotine 2 mg oral transmucosal lozenge 1 lozenge = 2 mg, By Mouth, Every 2 hours, # 108 lozenge, 3 Refills, Maintenance, 03/25/23 2:39:00 PM EDT, [id number], Partial fill upon patient request if the prescription is for a schedule II opioid drug., 1 lozenge By Mouth Every 2 hours, 160.2, cm, 03/25/23 14:25:00 EDT, Height, 55.4, kg, 02/23/23 12:42:00 EDT, Dry Weight Start Date: 03/25/23 Status: Ordered Medication Dispense Status: Completed Quantity: 108.0 Unit: lozenge Total Allowed Fills: 4 Fills Dispensed: 0 nicotine 4 mg oral transmucosal lozenge 1 lozenge = 4 mg, By Mouth, Every 2 hours, PRN as needed for smoking cessation, # 189 lozenge, 3 Refills, Maintenance, 09/06/22 2:10:00 PM EDT, [id number], Partial fill upon patient request ifthe prescription is for a schedule II opioid drug., 1 lozenge By Mouth Every 2 hours,PRN:as needed for smoking cessation, 160.2, cm, 09/06/22 13:49:00 EDT, Height, 59, kg, 12/04/21 6:10:00 EDT, Dry Weight Start Date: 09/06/22 Status: Ordered Medication Dispense Status: Completed Quantity: 189.0 Unit: lozenge Total Allowed Fills: 4 Fills Dispensed: 0 nitroglycerin 0.4 mg sublingual tablet 1 tablet, Sublingual, Every 5 minutes, PRN NEEDED FOR CHEST PAIN *MAX 3, IN 15 MINUTES, IF PAIN CONSISTS CALL 911., # 75 tablet, 0 Refills, [id number], 160.2, cm, 12/04/21 6:03:00 EDT, Height, 59, kg, 12/04/21 6:10:00 EDT, Dry Weight Start Date: 01/05/22 Status: Ordered Medication Dispense Status: Completed Quantity: 75.0 Unit: tablet Total Allowed Fills: 1 Fills Dispensed: 0 oxyCODONE 10 mg oral tablet 1 tablet = 10 mg, By Mouth, Every 4 hours, PRN as needed for pain, 0 Refills, Maintenance, 02/23/23 12:40:00 PM EDT, Tablet, Partial fill upon patient request if the prescription is for a schedule II opioid drug. Start Date: 02/23/23 Status: Ordered Medication Dispense Status: Completed Total Allowed Fills: 1 Fills Dispensed: 0 PBKK Cream (Prilocaine 5%, Bupivacaine 3%, Ketoprofen 10%, Ketamine 5%) PBKK Cream (Prilocaine 5%, Bupivacaine 3%, Ketoprofen 10%, Ketamine 5%), See Instructions, # 30 Gm,Refills 2, Tot. Refills 2, Maintenance, Apply to affected area twice daily, 09/01/20 2:45:00 PM EDT,Compound Start Date: 09/01/20 Status: Ordered Medication Dispense Status: Completed Quantity: 30.0 Unit: g Total Allowed Fills: 3 Fills Dispensed: 0 pregabalin 150 mg oral capsule 1 capsule = 150 mg, By Mouth, 3 times a day, # 90 capsule, 5 Refills, Maintenance, 03/06/24 4:07:00 PM EDT, [id number], 160.2, cm, 01/27/24 9:45:00 EDT, Height, 60.6, kg, 11/04/23 11:21:00 EDT, Dry Weight Start Date: 03/06/24 Stop Date: 09/02/24 Status: Ordered Medication Dispense Status: Completed Quantity: 90.0 Unit: capsule Total Allowed Fills: 6 Fills Dispensed: 0 Roflumilast 500 mcg oral tablet 1 tablet, By Mouth, Daily, # 30 tablet, 11 Refills, Maintenance, 03/16/25 12:07:00 PM EDT, [id number], 160.2, cm, 03/03/25 16:20:00 EDT, Height, 54.5, kg, 03/03/25 16:26:00 EDT, Dry Weight Start Date: 03/16/25 Status: Ordered Medication Dispense Status: Completed Quantity: 30.0 Unit: tablet Total Allowed Fills: 1 Fills Dispensed: 0 Sodium Chloride, Inhalation 7% inhalation solution See Instructions, inhaler 4ml 2 times a day via nebulizer, add to 0.5 ml of albuterol, j44.9, # 240mL, 11 Refills, Maintenance, 04/11/23 2:28:00 PM EDT, [facility], Partial fill upon patient request if the prescription is for a schedule II opioid drug., inhaler 4ml 2 times a day via nebulizer, add to 0.5 ml of albuterol, j44.9, 160.2, cm, 03/27/23 16:27:00 EDT, Height, 55.4, kg,02/23/23 12:42:00 EDT, Dry Weight Start Date: 04/11/23 Status: Ordered Medication Dispense Status: Completed Quantity: 240.0 Unit: mL Total Allowed Fills: 12 Fills Dispensed: 0 Trelegy Ellipta 200 mcg-62.5 mcg-25 mcg/inh inhalation powder 1 puffs, Inhalation, Daily, at the same time every day, # 1 each, 11 Refills, Maintenance, :53:00 PM EDT, Powder, [facility][id number], Partial fill upon patient request if the prescription is for a schedule II opioid drug., 1 puffs Inhalation Daily,Instr:at the same time every day, 160.2, cm, 03/29/25 14:24:00 EDT, Height, 54.5, kg, 03/03/25 16:26:00 EDT, Dry Weight Start Date: 03/29/25 Status: Ordered Medication Dispense Status: Completed Quantity: 1.0 Unit: each Total Allowed Fills: 12 Fills Dispensed: 0 varenicline 1mg tablet See Instructions, TAKE 0.5 TABLET BY MOUTH DAILY X 3 DAYS, THEN 0.5 TABLET BY MOUTH TWICE A DAY X 3DAYS, THEN 1 TABLET BY MOUTH TWICE A DAY, # 168 tablet, 3 Refills, Maintenance, 03/15/25 3:40:00 PM EDT, [id number], 160.2, cm, 03/03/25 16:20:00 EDT, Height, 54.5, kg, 03/03/25 16:26:00 EDT, DryWeight Start Date: 03/15/25 Status: Ordered Medication Dispense Status: Completed Quantity: 168.0 Unit: tablet Total Allowed Fills: 1 Fills Dispensed: 0 Problem List Condition Confirmation Course Effective Dates Status Health Status Informant Cataract Confirmed Active Chronic back pain Confirmed Active Constipation Confirmed Active CAD (coronary artery disease) Confirmed Active Depression Confirmed Active Dysphagia Confirmed Active GERD (gastroesophageal reflux disease) Confirmed Active Generalized anxiety disorder Confirmed Active History of multiple sclerosis Confirmed Active H/O osteoporosis Confirmed Active Hyperlipidemia Confirmed Active HTN (hypertension) Confirmed Active Hypogammaglobulinemia Confirmed Active Migraine Confirmed Active Neck pain Confirmed Active PVD (peripheral vascular disease) Confirmed Active Tobacco dependence Confirmed Active Vital Signs Most recent to oldest [Reference Range]: 1 2 3 Height 160.2 cm (03/03/25 4:20 PM) Weight 54.5 kg (03/03/25 4:20 PM) Oxygen Saturation [94-100 %] 98 % (03/03/25 2:20 PM) 97 % (03/03/25 1:40 PM) 96 % (03/03/25 1:24 PM) Pulse Rate [55-90 bpm] 70 bpm (03/03/25 2:20 PM) 70 bpm (03/03/25 1:40 PM) 70 bpm (03/03/25 1:23 PM) Blood Pressure [90-138/55-84 mm Hg] 187/83mm Hg *H* (03/03/25 3:00 PM) 182/77mm Hg *H* (03/03/25 2:20 PM) 180/77mm Hg *H* (03/03/25 1:40 PM) Respiratory Rate [16-30 br/min] 18 br/min (03/03/25 2:20 PM) 18 br/min (03/03/25 1:40 PM) 18 br/min (03/03/25 1:23 PM) Temperature [96.8-100.4 DegF] 97.7 DegF (03/03/25 2:20 PM) 97.8 DegF (03/03/25 1:40 PM) 97.5 DegF (03/03/25 1:23 PM) Liters per Minute 2 L/min (03/03/25 2:20 PM) 2 L/min (03/03/25 1:40 PM) 2 L/min (03/03/25 1:24 PM) Mode of Delivery (Oxygen) Nasal cannula (03/03/25 2:20 PM) Nasal cannula (03/03/25 1:40 PM) Nasal cannula (03/03/25 1:24 PM) Blood pressure sites Arm, left (03/03/25 1:40 PM) Arm, right (03/03/25 11:34 AM) Temperature Route Tympanic (03/03/25 2:20 PM) Temporal (03/03/25 1:40 PM) Temporal (03/03/25 1:23 PM) Dry Weight 54.5 kg (03/03/25 4:20 PM) 54.5 kg (03/03/25 11:32 AM) Dry Weight Obtained Via Standing scale (03/03/25 4:20 PM) Standing scale (03/03/25 11:32 AM) Social History Social History Type Response Smoking Status Former smoker, quit more than 30 days ago entered on: 12/03/23 Sex Sex Representation Female (finding) Hospital Progress note * Loly Gamze RN: PERFORM, SIGN, VERIFY, SIGN, MODIFY Event Display: Progress Note Hospital Authored Date: [id number] Patient: MELISA MANZO Age: 74 years Sex: Female : 1950 Associated Diagnoses: None Author: Loly Gamez RN Findings Nursing Data IV Lines. : IV Lines. 03/03/2025 15:00 EDT Left Forearm 22 gauge Peripheral IV Activity: Discontinue Peripheral IV Assess Compare Touch: A/C/T Done, line D/C'd and or pt discharged Peripheral IV D/C Date/Time: 03/03/2025 15:00 Peripheral IV D/C Reason: Discontinued treatment complete Peripheral IV Post-Removal: Catheter tip intact, Dry sterile dressing applied 03/03/2025 11:50 EDT Left Forearm 22 gauge Peripheral IV Activity: Start Peripheral IV Insertion Date/Time: 03/03/2025 11:50 Peripheral IV Number of Attempts: 1 Peripheral IV Site Assessment: Clean, dry and intact, Flushes Well, Good Blood return Peripheral IV Dressing: Semi-permeable membrane . Vital Signs : VITAL SIGNS SECTION 03/03/2025 15:00 EDT Systolic Blood Pressure 187 mm Hg H Diastolic Blood Pressure 83 mm Hg Mean Arterial Pressure 118 mm Hg Pulse Pressure 104 mm Hg 03/03/2025 14:20 EDT Temperature 97.7 DegF Temperature Route Tympanic Pulse Rate 70 bpm Respiratory Rate 18 br/min Systolic Blood Pressure 182 mm Hg H Diastolic Blood Pressure 77 mm Hg Mean Arterial Pressure 112 mm Hg Pulse Pressure 105 mm Hg Oxygen Saturation 98 % Liters per Minute 2 L/min Mode of Delivery (Oxygen) Nasal cannula 03/03/2025 13:40 EDT Temperature 97.8 DegF Temperature Route Temporal Pulse Rate 70 bpm Respiratory Rate 18 br/min Systolic Blood Pressure 180 mm Hg H Diastolic Blood Pressure 77 mm Hg Blood pressure sites Arm, left Mean Arterial Pressure 111 mm Hg Pulse Pressure 103 mm Hg Oxygen Saturation 97 % Liters per Minute 2 L/min Mode of Delivery (Oxygen) Nasal cannula 03/03/2025 13:24 EDT Oxygen Saturation 96 % Liters per Minute 2 L/min Mode of Delivery (Oxygen) Nasal cannula 03/03/2025 13:23 EDT Temperature 97.5 DegF Temperature Route Temporal Pulse Rate 70 bpm Respiratory Rate 18 br/min Systolic Blood Pressure 184 mm Hg H Diastolic Blood Pressure 77 mm Hg Mean Arterial Pressure 113 mm Hg Pulse Pressure 107 mm Hg Oxygen Saturation 92 % L Mode of Delivery (Oxygen) Room air 03/03/2025 11:34 EDT Temperature 97.3 DegF Temperature Route Temporal Pulse Rate 76 bpm Respiratory Rate 18 br/min Systolic Blood Pressure 146 mm Hg H Diastolic Blood Pressure 61 mm Hg Blood pressure sites Arm, right Mean Arterial Pressure 89 mm Hg Pulse Pressure 85 mm Hg Oxygen Saturation 96 % Mode of Delivery (Oxygen) Room air . Narrative/Incidental Patient admitted for repeat Ocrevus. VSS. Premedicated with Tylenol, Benadryl, and Methylprednisolone. At end of first rate (40ml/hr x 30 mins) the patient's recheck blood pressure was elevated and she reported having a headache. Her oxygen saturation was 92% as well. patient reported that she usually uses oxygen at home, MD notified and O2 started at 2L. Recheck O2 sat was 96%. Patient denied difficulty breathing and swallowing. MD notified of elevated blood pressure and headache. She advised to hold and recheck vitals. After 30 minutes blood pressure rechecked and remained elevated with continued headache. MD notified and advised that patient go to ED. She declined. I confirmed for MD that the patient did receive all premeds as ordered and that she reported taking her BP med at home this morning. MD advised okay to discharge to home, pt to monitor blood pressure at home and reach out to her PCP for BP control. Patient expressed understanding. Medication ended 1329. Patient ambulatedoff of unit at 1500.. * Loly Gamez RN: PERFORM Event Display: Progress Note Hospital Authored Date: [id number] SRS filed case # [id number] Patient Care team information Care Team Personnel Name: Amanda Lepe CNM Position: Reference Physician Member Role: Primary Care Nurse Address: [address] [place] [address] Telecom: Name: Svitlana Metcalf RN Position: [facility] AMB Nurse Member Role: Primary Care Nurse Name: Esperanza Lopez RN Position: [facility] RN Member Role: Primary Care Nurse Name: Mel Leach RN Position: [facility] RN Member Role: Primary Care Nurse Name: Kemi Mobley RN Position: [facility] Onco RN Member Role: Primary Care Nurse Name: Lewis Villarreal RN Position: [facility] RN Member Role: Primary Care Nurse Name: Deana Cross NP Position: [facility] Associate Professional Member Role: Primary Care Nurse Address: [address] [place] [id number]- Telecom: Name: Patti Quick Position: [facility] RN Member Role: Primary Care Nurse Name: Peter Baird RN Position: [facility] RN Member Role: Primary Care Nurse Name: Ro Cummings RN Position: [facility] AMB Nurse Member Role: Primary Care Nurse Name: Alesha Cruz RN Position: [facility] RN Member Role: Primary Care Nurse Name: Sushil Stewart MD Position: [facility] Physician - Primary Care Member Role: PCP Address: [address] [place] [address], [facility] [address] [place] [address]- Telecom: Care Team Related Persons Name: BRIANA LUTZ Name: BLAIR MANZO Insurance Providers Guarantor name: MELISA MANZO Health Plan Information #: 1 Payer: MEDICARE B Payer Identifier: NA Member Number: [id number] Group Number: NA Subscriber Identifier: [id number] Relationship to Subscriber: self Coverage Type: NA Coverage Verification Date: NA Telecom: NA Address: Health Plan Information #: 2 Payer: [facility] Payer Identifier: NA Member Number: [id number] Group Number: [id number] Subscriber Identifier: [id number] Relationship to Subscriber: self Coverage Type: Medicare Other Coverage Verification Date: NA Telecom: Address:
--- NOTE | 2025-05-07 16:19 | MHC.OFFWIV ---
Intake Vital Signs 05/07/25 16:20 Height 5 ft 1 in Weight 128 lb BMI 24.2 BP 160/90 H Blood Pressure Location Lt brachial Position Sitting Respiration 16 Pulse 102 H Pulse Source Pulse Oximeter Temp 97.9 F Temp Source Oral Pulse Oximetry (%) 97 Intake Visit Reasons: EP Rash in different areas, itchy Intake Note: Patient is coming in with a rash [id number] all over the body . Patient Tobacco Use Status: Former Tobacco user Electronics Detail Draftsperson Required: No Accompanied by: Self / Same As Patient Allergies codeine (CODEINE) Allergy (Unknown, Verified 05/07/25 16:21) Hives lorazepam (From Ativan) Adverse Reaction (Verified 05/07/25 16:21) Hallucinations Do you need a note to return to daycare/school/sports/work: No HPI HPI Comments History of Present Illness Details History of Present Illness - The patient is a 74-year-old individual presenting with generalized itching and a rash. - Itching has been present for approximately two weeks, with worsening intensity. - The itching is primarily located on the back, legs, and forearms, pt has been scratching a lot. - The patient has tried Benadryl, pred x 5 days and a prescribed cream from the primary care doctor, which have not alleviated the symptoms. - The patient denies any new lotions, soaps, or creams that could have triggered the symptoms. - The patient reports improvement in the rash on the forearms. FORMERLY [facility], [facility]1983 Medical History MDD (major depressive disorder), recurrent episode Essential hypertension Leukocytosis History of CAD (coronary artery disease) Peripheral vascular disease Chronic back pain GERD (gastroesophageal reflux disease) High cholesterol HTN (hypertension) Immune disorder COPD (chronic obstructive pulmonary disease) Multiple sclerosis Surgical History History of angioplasty History of heart artery stent Social History Household Members: Significant Other Housing: Apartment Do you presently have visiting nurse or other home services: Yes Alcohol intake: never Comment: 5 miinute checks Patient Tobacco Use Status: Former Tobacco user Tobacco use type: Cigarette Cigarette Packs Per Day: 1 Cigarettes Per Day: 20.0 Advance Directives Date on File: 11/22/22 service: No Current occupational status: retired Sexual orientation: Straight/Heterosexual Review of Systems Narrative Review of Systems - Dermatological: Reports generalized pruritus for two weeks. Denies new lotions, soaps, or creams as triggers. - Musculoskeletal: Denies itching in the groin, armpits, or between fingers and toes. All systems reviewed and are unremarkable except as noted in HPI Physical Exam Exam Exam: Physical Exam General: Cooperative, healthy appearing, comfortable, no acute distress and well developed Orientation: Patient oriented x3 Limitations: No limitations Head: Normal to inspection Ears: Hearing problem noted Nose: Normal External nose present Face and sinus: Normal facial exam Eyes: Appearance normal, both eyes and all related structures Neck: Normal visual inspection and Yes full ROM Respiratory: Normal respiratory effort and able to speak in complete sentences. Skin: erythematous macular rash on mid thoracic back left side and upper left back. many excoriations noted Neuro: Patient oriented x3 Extremities: Normal to inspection Vital Signs: Last Vital Signs Temp 97.9 F 05/07/25 16:20 Pulse 102 H 05/07/25 16:20 Resp 16 05/07/25 16:20 BP 160/90 H 05/07/25 16:20 Pulse Ox 97 05/07/25 16:20 BMI result Body Mass Index 24.2 Assessment & Plan Assessment & Plan (1) Allergic dermatitis: Code(s): L23.9 - Allergic contact dermatitis, unspecified cause Plan Patient was informed and verbally consented to the use of an ambient scribe for clinic note documentation during this visit. - Initiate a second course of prednisone with a tapering schedule to manage symptoms. - Prescribe hydroxyzine to be taken at bedtime to alleviate itching and improve sleep. - Continue the use of topical betamethasone cream on affected areas. - Advise the patient to avoid potential irritants such as new lotions or soaps. - Monitor the rash for any changes or improvement with the current treatment plan. Medications: New hydroxyzine HCl 25 mg PO BEDTIME 14 tabs 0RF Coding Level of Care Code New Pt Level 3 (15320) Diagnoses Allergic dermatitis L23.9
[2025-05-07 16:20] VITALS: BP 160/90; PULSE 102; RESP 16; TEMP 36.6; O2SAT 97; BMI 24.2
--- OUTSIDE RECORDS SUMMARY | 2025-05-07 16:20 | XMS_ITS | Encounter Summary ---
Author Organization [facility] Address [address] [place] [address] Care Team Providers Care Direct Care Supervisor Name Role Phone Sushil Stewart MD Primary Care Provider [phone] Encounter Details Date Type Department Care Team (Late st Contact Info) Description 08/01/[address] [facility] - Main Lab [address] [place] [address] Carmela Thomas MD [address] [phone] Heart failure, unspecified (CMS/HCC V24, CMS/HCC V28) [...] METHOD 08/03/2024 11:51 AM EST [facility] Potassium 3.2(L) 3.5 - 5.5 mmol/L LAB CHEMISTRY METHOD 08/03/2024 11:51 AM [facility] Chloride 101 96 - 110 mmol/L LAB CHEMISTRY METHOD 08/03/2024 11:51 AM [facility] CO2 33(H) 21 - 32 mmol/L LAB CHEMISTRY METHOD 08/03/2024 11:51 AM [facility] Anion Gap 6 3 - 11 LAB CHEMISTRY METHOD 08/03/2024 11:51 AM [facility] Glucose 87 70 - 100 mg/dL LAB CHEMISTRY METHOD 08/03/2024 11:51 AM [facility] BUN 16 5 - 25 mg/dL LAB CHEMISTRY METHOD 08/03/2024 11:51 AM [facility] Creatinine 0.62 0.50 - 1.10 mg/dL LAB CHEMISTRY METHOD 08/03/2024 11:51 AM [facility] eGFR 95 >=60 mL/min/1. 73m2 LAB CHEMISTRY METHOD 08/03/2024 11:51 AM [facility] Comment:Calculation based on the Chronic Kidney Disease Epidemiology Collaboration (CKD-EPI) equation refit without adjustment for race. BUN/Creatinine Ratio 25.8 LAB CHEMISTRY METHOD 08/03/2024 11:51 AM [facility] Calcium 9.4 8.5 - 10.5 mg/dL LAB CHEMISTRY METHOD 08/03/2024 11:51 AM [facility] AST (SGOT) 37 10 - 42 unit/L LAB CHEMISTRY METHOD 08/03/2024 11:51 AM [facility] ALT (SGPT) 63(H) 10 - 60 unit/L LAB CHEMISTRY METHOD 08/03/2024 11:51 AM [facility] Alkaline Phosphatase 193(H) 42 - 121 unit/L LAB CHEMISTRY METHOD 08/03/2024 11:51 AM [facility] Total Protein 5.9(L) 6.0 - 8.0 g/dL LAB CHEMISTRY METHOD 08/03/2024 11:[address] [facility] Albumin 3.0(L) 3.2 - 5.0 g/dL LAB CHEMISTRY METHOD 08/03/2024 11:51 AM [facility] Total Bilirubin 0.3 0.0 - 1.4 mg/dL LAB CHEMISTRY METHOD 08/03/2024 11:51 AM [facility] Blood Venous blood specimen / Unknown Venipuncture / Unknown 08/03/2024 7:22 AM EST 08/03/2024 10:51 AM EST us Carmela Thomas MD LAB BLOOD ORDERABLES Fin al Result [facility] [address] [place] [address], * (ABNORMAL) Complete blood count (08/03/2024 7:22 AM EST) WBC 11.0(H) 4.8 - 10.8 K/mcL LAB HEMETOLOGY METHOD 08/03/2024 11:15 AM [facility] RBC 3.60(L) 3.80 - 4.80 M/mcL LAB HEMETOLOGY METHOD 08/03/2024 11:15 AM [facility] Hemoglobin 10.9(L) 11.5 - 16.0 g/dL LAB HEMETOLOGY METHOD 08/03/2024 11:15 AM [facility] Hematocrit 33.8(L) 35.0 - 47.0 % LAB HEMETOLOGY METHOD 08/03/2024 11:15 AM [facility] MCV 94.9 79.0 - 98.0 FL LAB HEMETOLOGY METHOD 08/03/2024 11:15 AM [facility] MCH 30.6 27.0 - 32.0 pcg LAB HEMETOLOGY METHOD 08/03/2024 11:[address] [facility] MCHC 32.2 32.0 - 37.0 g/dL LAB HEMETOLOGY METHOD 08/03/2024 11:15 AM [facility] RDW 13.5 11.0 - 15.0 % LAB HEMETOLOGY METHOD 08/03/2024 11:15 AM [facility] Platelets 347 130 - 400 K/mcL LAB HEMETOLOGY METHOD 08/03/2024 11:15 AM [facility] MPV 10.4 7.0 - 11.0 FL LAB HEMETOLOGY METHOD 08/03/2024 11:15 AM [facility] NRBC 0.0 <1.0 % LAB HEMETOLOGY METHOD 08/03/2024 11:15 AM [facility] NRBC Absolute 0.00 <0.10 K/mcL LAB HEMETOLOGY METHOD 08/03/2024 11:15 AM [facility] Blood Venous blood specimen / Unknown Venipuncture / Unknown 08/03/2024 7:22 AM EST 08/03/2024 10:51 AM EST us Carmela Thomas MD LAB BLOOD ORDERABLES Fin al Result [facility] [address] [place] [address], documented in this encounter Visit Diagnoses Diagnosis Heart failure, unspecified (CMS/HCC V24, CMS/HCC V28) Heart failure, unspecified documented in this encounter Care Teams Direct Care Supervisor Relationship Specialty Start Date End Date Sushil Stewart MD [address] [place] [address] [address] [place], [place] PCP - General Internal Medicine 10/14/17 documented as of this encounter
--- OUTSIDE RECORDS SUMMARY | 2025-05-07 16:20 | XMS_ITS | Encounter Summary ---
Author Organization [facility] Address [address] [place] [address] Care Team Providers Care Overhead Irrigator Name Role Phone Sushil Stewart MD Primary Care Provider [phone] Encounter Details Date Type Department Care Team (Late st Contact Info) Description 08/16/2024 Lab Requisition [facility] - Main Lab [address] [place] [address] Carmela Thomas MD [address] [phone] Heart failure, unspecified (CMS/HCC V24, CMS/HCC V28) [...] CHEMISTRY METHOD 08/17/2024 2:03 PM EST [facility] Potassium 3.7 3.5 - 5.5 [...] [facility] Comment:Calculation based on the [...] g/dL LAB CHEMISTRY METHOD 08/17/2024 2:03 PM [facility] Albumin 2.9(L) 3.2 - 5.0 g/dL LAB CHEMISTRY METHOD 08/17/2024 2:03 PM [facility] Total Bilirubin 0.2 0.0 - 1.4 mg/dL LAB CHEMISTRY METHOD 08/17/2024 2:03 PM [facility] Blood Venous blood specimen / Unknown Venipuncture / Unknown 08/17/2024 9:34 AM EST 08/17/2024 11:30 AM EST us Carmela Thomas MD LAB BLOOD ORDERABLES Fin al Result [facility] [address] [place] [address], * (ABNORMAL) Complete blood count (08/17/2024 9:34 [...] FL LAB HEMETOLOGY METHOD 08/17/2024 1:30 PM [facility] MCH 30.4 27.0 - 32.0 pcg LAB HEMETOLOGY METHOD 08/17/2024 1:30 PM EST [facility] MCHC 31.1(L) 32.0 - 37.0 g/dL LAB HEMETOLOGY METHOD 08/17/2024 1:30 PM [facility] RDW 14.0 11.0 - 15.0 % LAB HEMETOLOGY METHOD 08/17/2024 1:30 PM [facility] Platelets 427(H) 130 - 400 K/mcL LAB HEMETOLOGY METHOD 08/17/2024 1:30 PM [facility] MPV 10.3 7.0 - 11.0 FL LAB HEMETOLOGY METHOD 08/17/2024 1:30 PM [facility] NRBC 0.0 <1.0 % LAB HEMETOLOGY METHOD 08/17/2024 1:30 PM [facility] NRBC Absolute 0.00 <0.10 K/mcL LAB HEMETOLOGY METHOD 08/17/2024 1:30 PM [facility] Blood Venous blood specimen / Unknown Venipuncture / Unknown 08/17/2024 9:34 AM EST 08/17/2024 11:30 AM EST us Carmela Thomas MD LAB BLOOD ORDERABLES Fin al Result Performing Organization Address City/State/[facility] Co de Phone Number [facility] [address] [place] [address], documented in this encounter Visit Diagnoses Diagnosis Heart failure, unspecified (CMS/HCC V24, CMS/HCC V28) Heart failure, unspecified documented in this encounter Care Teams Overhead Irrigator Relationship Specialty Start Date End Date Sushil Stewart MD [address] [place] [address] [address] [place], [place] PCP - General Internal Medicine 10/14/17 documented as of this encounter
--- OUTSIDE RECORDS SUMMARY | 2025-05-07 16:20 | XMS_ITS | Encounter Summary ---
Author Organization [facility] Address [address] [place] [address] Care Team Providers Care Flight Dispatcher Name Role Phone Sushil Stewart MD Primary Care Provider [phone] Encounter Details Date Type Department Care Team (Late st Contact Info) Description 08/08/2024 Lab Requisition [facility] - Main Lab [address] [place] [address] Carmela Thomas MD [address] [phone] Heart failure, unspecified (CMS/HCC V24, CMS/HCC V28) [...] CHEMISTRY METHOD 08/10/2024 12:42 PM EST [facility] Potassium 3.3(L) 3.5 - 5.5 [...] LAB CHEMISTRY METHOD 08/10/2024 12:42 PM EST [facility] Albumin [...] MD LAB BLOOD ORDERABLES Fin al Result [facility] [address] [place] [address], * (ABNORMAL) Complete blood count (08/10/2024 8:28 [...] LAB HEMETOLOGY METHOD 08/10/2024 1:20 PM EST [facility] MCHC 31.7(L) 32.0 [...] MD LAB BLOOD ORDERABLES Fin al Result [facility] [address] [place] [address], documented in this encounter Visit Diagnoses Diagnosis Heart failure, unspecified (CMS/HCC V24, CMS/HCC V28) Heart failure, unspecified documented in this encounter Care Teams Flight Dispatcher Relationship Specialty Start Date End Date Sushil Stewart MD [address] [place] [address] [address] [place], [place] PCP - General Internal Medicine 10/14/17 documented as of this encounter
--- OUTSIDE RECORDS SUMMARY | 2025-05-07 16:20 | XMS_ITS | Clinical Summary ---
Author Organization [facility] Address [address] [place] [address] Phone Care Team Providers Care Research Analyst Name Role Phone Susihl Stewart MD Primary Care Provider [phone] Surgical History Surgery Date Site/Laterality Comments BACK [...] Comments COPD (chronic obstructive pu lmonary disease) ([facility] V24, [facility] V28) 04/11/2018 DX:COPD (chronic o bstructive pulmonary disease) ([facility]) GERD (gastroesophageal [...] mmol/L LAB CHEMISTRY METHOD 08/17/2024 2:03 PM [facility] Potassium 3.7 3.5 - 5.5 mmol/L LAB CHEMISTRY METHOD 08/17/2024 2:03 PM [facility] Chloride 102 96 - 110 mmol/L LAB CHEMISTRY METHOD 08/17/2024 2:03 PM [facility] CO2 30 21 - 32 mmol/L LAB CHEMISTRY METHOD 08/17/2024 2:03 PM [facility] Anion Gap 7 3 - 11 LAB CHEMISTRY METHOD 08/17/2024 2:03 PM [facility] Glucose 157(H) 70 - 100 mg/dL LAB CHEMISTRY METHOD 08/17/2024 2:03 PM [facility] BUN 13 5 - 25 mg/dL LAB CHEMISTRY METHOD 08/17/2024 2:03 PM [facility] Creatinine 0.65 0.50 - 1.10 mg/dL LAB CHEMISTRY METHOD 08/17/2024 2:03 PM [facility] eGFR 94 >=60 mL/min/1. 73m2 LAB CHEMISTRY METHOD 08/17/2024 2:03 PM [facility] Comment:Calculation based on the Chronic Kidney Disease Epidemiology Collaboration (CKD-EPI) equation refit without adjustment for race. BUN/Creatinine Ratio 20.0 LAB CHEMISTRY METHOD 08/17/2024 2:03 PM [facility] Calcium 9.8 8.5 - 10.5 mg/dL LAB CHEMISTRY METHOD 08/17/2024 2:03 PM [facility] AST (SGOT) 23 10 - 42 unit/L LAB CHEMISTRY METHOD 08/17/2024 2:03 PM [facility] ALT (SGPT) 70(H) 10 - 60 unit/L LAB CHEMISTRY METHOD 08/17/2024 2:03 PM [facility] Alkaline Phosphatase 177(H) 42 - 121 unit/L LAB CHEMISTRY METHOD 08/17/2024 2:03 PM [facility] Total Protein 6.0 6.0 - 8.0 g/dL LAB CHEMISTRY METHOD 08/17/2024 2:03 PM [facility] Albumin 2.9(L) 3.2 - 5.0 g/dL LAB CHEMISTRY METHOD 08/17/2024 2:03 PM [facility] Total Bilirubin 0.2 0.0 - 1.4 mg/dL LAB CHEMISTRY METHOD 08/17/2024 2:03 PM [facility] Blood Venous blood specimen / Unknown Venipuncture / Unknown 08/17/2024 9:34 AM EST 08/17/2024 11:30 AM EST us Carmela Thomas MD LAB BLOOD ORDERABLES Fin al Result [facility] [address] [place] [address], from Last 3 Months or Most Recently Relevant to Health Maintenance Insurance MEDICARE Care Teams Research Analyst Relationship Specialty Start Date End Date Sushil Stewart MD [address] [place] [address] Rd [address] [place], [place] PCP - General Internal Medicine 10/14/17
--- OUTSIDE RECORDS SUMMARY | 2025-05-07 16:20 | XMS_ITS | Encounter Summary ---
Author Organization [facility] Address [address] [place] [address] Care Team Providers Care Clip Bolter And Wrapper Name Role Phone Sushil Stewart MD Primary Care Provider [phone] Encounter Details Date Type Department Care Team (Late st Contact Info) Description 07/27/2024 Lab Requisition [facility] - Main Lab [address] [place] [address] Carmela Thomas MD [address] [phone] Heart failure, unspecified (CMS/HCC V24, CMS/HCC V28) [...] CHEMISTRY METHOD 07/27/2024 2:15 PM EST [facility] Potassium 3.7 3.5 - 5.5 mmol/L LAB CHEMISTRY METHOD 07/27/2024 2:15 PM [facility] Chloride 102 96 - 110 mmol/L LAB CHEMISTRY METHOD 07/27/2024 2:15 PM [facility] CO2 28 21 - 32 mmol/L LAB CHEMISTRY METHOD 07/27/2024 2:15 PM [facility] Anion Gap 10 3 - 11 LAB CHEMISTRY METHOD 07/27/2024 2:15 PM [facility] Glucose 98 70 - 100 mg/dL LAB CHEMISTRY METHOD 07/27/2024 2:15 PM [facility] BUN 13 5 - 25 mg/dL LAB CHEMISTRY METHOD 07/27/2024 2:15 PM [facility] Creatinine 0.62 0.50 - 1.10 mg/dL LAB CHEMISTRY METHOD 07/27/2024 2:15 PM [facility] eGFR 95 >=60 mL/min/1. 73m2 LAB CHEMISTRY METHOD 07/27/2024 2:15 PM [facility] Comment:Calculation based on the Chronic Kidney Disease Epidemiology Collaboration (CKD-EPI) equation refit without adjustment for race. BUN/Creatinine Ratio 21.0 LAB CHEMISTRY METHOD 07/27/2024 2:15 PM [facility] Calcium 9.6 8.5 - 10.5 mg/dL LAB CHEMISTRY METHOD 07/27/2024 2:15 PM [facility] AST (SGOT) 34 10 - 42 unit/L LAB CHEMISTRY METHOD 07/27/2024 2:15 PM [facility] ALT (SGPT) 81(H) 10 - 60 unit/L LAB CHEMISTRY METHOD 07/27/2024 2:15 PM [facility] Alkaline Phosphatase 189(H) 42 - 121 unit/L LAB CHEMISTRY METHOD 07/27/2024 2:15 PM [facility] Total Protein 6.0 6.0 - 8.0 g/dL LAB CHEMISTRY METHOD 07/27/2024 2:15 PM [facility] Albumin 2.5(L) 3.2 - 5.0 g/dL LAB CHEMISTRY METHOD 07/27/2024 2:15 PM [facility] Total Bilirubin 0.3 0.0 - 1.4 mg/dL LAB CHEMISTRY METHOD 07/27/2024 2:15 PM [facility] Blood Venous blood specimen / Unknown Venipuncture / Unknown 07/27/2024 8:36 AM EST 07/27/2024 11:49 AM EST us Carmela Thomas MD LAB BLOOD ORDERABLES Fin al Result [facility] [address] [place] [address], * (ABNORMAL) Complete blood count (07/27/2024 8:36 AM EST) WBC 17.3(H) 4.8 - 10.8 K/mcL LAB HEMETOLOGY METHOD 07/27/2024 1:03 PM [facility] RBC 4.00 3.80 - 4.80 M/mcL LAB HEMETOLOGY METHOD 07/27/2024 1:03 PM [facility] Hemoglobin 12.0 11.5 - 16.0 g/dL LAB HEMETOLOGY METHOD 07/27/2024 1:03 PM [facility] Hematocrit 36.8 35.0 - 47.0 % LAB HEMETOLOGY METHOD 07/27/2024 1:03 PM [facility] MCV 92.0 79.0 - 98.0 FL LAB HEMETOLOGY METHOD 07/27/2024 1:03 PM [facility] MCH 30.0 27.0 - 32.0 pcg LAB HEMETOLOGY METHOD 07/27/2024 1:03 PM EST [facility] MCHC 32.6 32.0 - 37.0 g/dL LAB HEMETOLOGY METHOD 07/27/2024 1:03 PM [facility] RDW 13.4 11.0 - 15.0 % LAB HEMETOLOGY METHOD 07/27/2024 1:03 PM [facility] Platelets 609(H) 130 - 400 K/mcL LAB HEMETOLOGY METHOD 07/27/2024 1:03 PM [facility] MPV 9.9 7.0 - 11.0 FL LAB HEMETOLOGY METHOD 07/27/2024 1:03 PM [facility] NRBC 0.0 <1.0 % LAB HEMETOLOGY METHOD 07/27/2024 1:03 PM [facility] NRBC Absolute 0.00 <0.10 K/mcL LAB HEMETOLOGY METHOD 07/27/2024 1:03 PM [facility] Blood Venous blood specimen / Unknown Venipuncture / Unknown 07/27/2024 8:36 AM EST 07/27/2024 11:49 AM EST us Carmela Thomas MD LAB BLOOD ORDERABLES Fin al Result [facility] [address] [place] [address], documented in this encounter Visit Diagnoses Diagnosis Heart failure, unspecified (CMS/HCC V24, CMS/HCC V28) Heart failure, unspecified documented in this encounter Care Teams Clip Bolter And Wrapper Relationship Specialty Start Date End Date Sushil Stewart MD [address] [place] [address] [address] [place], [place] PCP - General Internal Medicine 10/14/17 documented as of this encounter
--- OUTSIDE RECORDS SUMMARY | 2025-05-07 16:20 | XMS_ITS | Encounter Summary ---
Author Organization [facility] Address [phone] [place] [address] Care Team Providers Care Spouting Installer Name Role Phone Sushil Stewart MD Primary Care Provider Encounter Details Date Type Department Care Team (Late st Contact Info) Description 08/23/2024 Lab Requisition [facility] - Main Lab [address] [facility] [place] [address] Carmela Thomas MD [address] [address] Heart failure, unspecified (CMS/HCC V24, CMS/HCC V28) [...] unspecified documented in this encounter Care Teams Spouting Installer Relationship Specialty Start Date End Date Sushil Stewart MD [address] [place], [place] PCP - General Internal Medicine 10/14/17 documented as of this encounter
== END 2025-05-07 16:49 | disposition home or self-care (01) ==
PROVIDERS: Visit Provider Physician Assistant
DX: L23.9 Allergic contact dermatitis, unspecified cause (principal)

== ENCOUNTER → 2025-05-07 16:17 | Outpatient (BNVA) | payer MEDICARE, BC, SELFPAY | DX: L23.9 Allergic contact dermatitis, unspecified cause (principal) | CPT/HCPCS: 99202 ==

== ENCOUNTER 2025-05-17 15:56 | Outpatient (AMB) | payer MEDICARE, BC, SELFPAY ==
[2025-05-17 16:02] VITALS: BP 160/82; PULSE 82; TEMP 36.8; O2SAT 97; BMI 24.7
--- NOTE | 2025-05-17 16:02 | AM.OFFWIN_ITS ---
Intake Vital Signs 05/17/25 16:02 Height 5 ft 1 in Weight 131 lb BMI 24.7 BP 160/82 H Blood Pressure Location Lt brachial Position Sitting Pulse 82 Pulse Source Pulse Oximeter Temp 98.2 F Temp Source Oral Pulse Oximetry (%) 97 Oxygen Delivery Method Room Air Comment High BP: pt reports not taking losartan today. provider notified. Intake Visit Reasons: EP Sores on rohan Intake Note: pt presents with burning and painful sores on tongue and corners of mouth for 2 days Patient Tobacco Use Status: Former Tobacco user Allergies codeine (CODEINE) Allergy (Unknown, Verified 05/17/25 16:09) Hives lorazepam (From Ativan) Adverse Reaction (Verified 05/17/25 16:09) Hallucinations Do you need a note to return to daycare/school/sports/work: No HPI HPI Comments History of Present Illness Details History of Present Illness - The patient is a 74 year old individua l presenting with sores on the tongue. - The patient reports the onset of painf ul sores on the tongue approximately four to five days ago, which causes pain with eating. - The patient has a history of these sor es and recalls being treated with two different types of swish or swallow medications in the past, including during a prior hospitalization for other issues. - The patient was prescribed steroids for a rash and suspects this may have caused the current oral sores. - The patient denies any triggering food s like spicy or hot items. - The patient denies associated symptoms such as cold symptoms, fevers, chills, dental pain, or sore throat. - The patient is a former smoker. - She did not take her BP medication tod ay. - She takes Losartan as needed. Physical Exam General: Cooperative, healthy appearing, comfortable, no acute distress and well developed Orientation: Patient oriented x3 Limitations: No limitations Head: Normal to inspection Mouth: Dry cracked lips noted. Few ulcers noted at the tip of the tongue. Uvula is midline. Oropharynx is pink, not erythematous and no exudates have been seen. Respiratory: Normal respiratory effort and able to speak in complete sentences. Clear to auscultation bilaterally. No w/r/r noted. Cardiovascular: Regular rate and rhythm. Normal S1 and S2 Skin: No rashes or lesions noted Patient was informed and verbally consented to the use of an ambient scribe for clinic note documentation during this visit. ON LICENSE OF [facility] Medical History MDD (major depressive disorder), recurrent episode Essential hypertension Leukocytosis History of CAD (coronary artery disease) Peripheral vascular disease Chronic back pain GERD (gastroesophageal reflux disease) High cholesterol HTN (hypertension) Immune disorder COPD (chronic obstructive pulmonary disease) Multiple sclerosis Surgical History History of angioplasty History of heart artery stent Social History Household Members: Significant Other Housing: Apartment Do you presently have visiting nurse or other home services: Yes Alcohol intake: never Comment: 5 miinute checks Patient Tobacco Use Status: Former Tobacco user Tobacco use type: Cigarette Cigarette Packs Per Day: 1 Cigarettes Per Day: 20.0 Advance Directives Date on File: 11/22/22 service: No Current occupational status: retired Sexual orientation: Straight/Heterosexual Review of Systems Const All systems reviewed & are unremarkable except as noted in HPI and below Physical Exam Vital Signs: Last Vital Signs Temp 98.2 F 05/17/25 16:02 Pulse 82 05/17/25 16:02 BP 160/82 H 05/17/25 16:02 Pulse Ox 97 05/17/25 16:02 Oxygen Delivery Method Room Air 05/17/25 16:02 BMI result Body Mass Index 24.7 Assessment & Plan Assessment & Plan (1) Tongue sore: Code(s): K14.6 - Glossodynia Plan: 1. Aphthous Stomatitis (Canker Sores) - Diet as tolerated - Avoid spicy foods - A prescription for lidocaine will be sent to the pharmacy to treat the canker sores. - If the condition does not improve, the patient is advised to follow up with the primary care provider, Sushil Stewart, or a dentist. (2) HTN (hypertension): Code(s): I10 - Essential (primary) hypertension Qualifiers: Hypertension type: primary hypertension Qualified Code(s): I10 - Essential (primary) hypertension Plan: HTN plan- - check BP at home - low salt diet - advised her to take her losartan daily as prescribed and not as needed - follow up with PCP Medications: New lidocaine HCl 2% (Lidocaine Viscous) 5 mL mucous membrane TID 100 mL 0RF 7 days Coding Level of Care Code Est Pt Level 4 (13818) Diagnoses Tongue sore K14.6 Primary hypertension I10 Hypertension type: primary hypertension
--- OUTSIDE RECORDS SUMMARY | 2025-05-17 18:36 | XMS_ITS | Encounter Summary ---
Author Organization [facility] Address [address] [place] [address] Care Team Providers Care Engagement Lead Name Role Phone Sushil Stewart MD Primary Care Provider [phone] Encounter Details Date Type Department Care Team (Late st Contact Info) Description 07/27/2024 Lab Requisition [facility] - Main Lab [address] [place] [address] Carmela Thomas MD [address] [phone] Heart failure, unspecified (CMS/HCC V24, CMS/HCC V28) [...] CHEMISTRY METHOD 07/27/2024 2:15 PM EST [facility] Potassium 3.7 3.5 - 5.5 mmol/L LAB CHEMISTRY METHOD 07/27/2024 2:15 PM [facility] Chloride 102 96 - 110 mmol/L LAB CHEMISTRY METHOD 07/27/2024 2:15 PM [facility] CO2 28 21 - 32 mmol/L LAB CHEMISTRY METHOD 07/27/2024 2:15 PM [facility] Anion Gap 10 3 - 11 LAB CHEMISTRY METHOD 07/27/2024 2:15 PM [facility] Glucose 98 70 - 100 mg/dL LAB CHEMISTRY METHOD 07/27/2024 2:15 PM [facility] BUN 13 5 - 25 mg/dL LAB CHEMISTRY METHOD 07/27/2024 2:15 PM [facility] Creatinine 0.62 0.50 - 1.10 mg/dL LAB CHEMISTRY METHOD 07/27/2024 2:15 PM [facility] eGFR 95 >=60 mL/min/1. 73m2 LAB CHEMISTRY METHOD 07/27/2024 2:15 PM [facility] Comment:Calculation based on the Chronic Kidney Disease Epidemiology Collaboration (CKD-EPI) equation refit without adjustment for race. BUN/Creatinine Ratio 21.0 LAB CHEMISTRY METHOD 07/27/2024 2:15 PM [facility] Calcium 9.6 8.5 - 10.5 mg/dL LAB CHEMISTRY METHOD 07/27/2024 2:15 PM [facility] AST (SGOT) 34 10 - 42 unit/L LAB CHEMISTRY METHOD 07/27/2024 2:15 PM [facility] ALT (SGPT) 81(H) 10 - 60 unit/L LAB CHEMISTRY METHOD 07/27/2024 2:15 PM [facility] Alkaline Phosphatase 189(H) 42 - 121 unit/L LAB CHEMISTRY METHOD 07/27/2024 2:15 PM [facility] Total Protein 6.0 6.0 - 8.0 g/dL LAB CHEMISTRY METHOD 07/27/2024 2:15 PM [facility] Albumin 2.5(L) 3.2 - 5.0 g/dL LAB CHEMISTRY METHOD 07/27/2024 2:15 PM [facility] Total Bilirubin 0.3 0.0 - 1.4 mg/dL LAB CHEMISTRY METHOD 07/27/2024 2:15 PM [facility] Blood Venous blood specimen / Unknown Venipuncture / Unknown 07/27/2024 8:36 AM EST 07/27/2024 11:49 AM EST us Carmela Thomas MD LAB BLOOD ORDERABLES Fin al Result [facility] [address] [place] [address], * (ABNORMAL) Complete blood count (07/27/2024 8:36 AM EST) WBC 17.3(H) 4.8 - 10.8 K/mcL LAB HEMETOLOGY METHOD 07/27/2024 1:03 PM [facility] RBC 4.00 3.80 - 4.80 M/mcL LAB HEMETOLOGY METHOD 07/27/2024 1:03 PM [facility] Hemoglobin 12.0 11.5 - 16.0 g/dL LAB HEMETOLOGY METHOD 07/27/2024 1:03 PM [facility] Hematocrit 36.8 35.0 - 47.0 % LAB HEMETOLOGY METHOD 07/27/2024 1:03 PM [facility] MCV 92.0 79.0 - 98.0 FL LAB HEMETOLOGY METHOD 07/27/2024 1:03 PM [facility] MCH 30.0 27.0 - 32.0 pcg LAB HEMETOLOGY METHOD 07/27/2024 1:03 PM EST [facility] MCHC 32.6 32.0 - 37.0 g/dL LAB HEMETOLOGY METHOD 07/27/2024 1:03 PM [facility] RDW 13.4 11.0 - 15.0 % LAB HEMETOLOGY METHOD 07/27/2024 1:03 PM [facility] Platelets 609(H) 130 - 400 K/mcL LAB HEMETOLOGY METHOD 07/27/2024 1:03 PM [facility] MPV 9.9 7.0 - 11.0 FL LAB HEMETOLOGY METHOD 07/27/2024 1:03 PM [facility] NRBC 0.0 <1.0 % LAB HEMETOLOGY METHOD 07/27/2024 1:03 PM [facility] NRBC Absolute 0.00 <0.10 K/mcL LAB HEMETOLOGY METHOD 07/27/2024 1:03 PM [facility] Blood Venous blood specimen / Unknown Venipuncture / Unknown 07/27/2024 8:36 AM EST 07/27/2024 11:49 AM EST us Carmela Thomas MD LAB BLOOD ORDERABLES Fin al Result [facility] [address] [place] [address], documented in this encounter Visit Diagnoses Diagnosis Heart failure, unspecified (CMS/HCC V24, CMS/HCC V28) Heart failure, unspecified documented in this encounter Care Teams Engagement Lead Relationship Specialty Start Date End Date Sushil Stewart MD [address] [place] [address] [address] [place], [place] PCP - General Internal Medicine 10/14/17 documented as of this encounter
--- OUTSIDE RECORDS SUMMARY | 2025-05-17 18:36 | XMS_ITS | Encounter Summary ---
Author Organization [facility] Address [address] [place] [address] Care Team Providers Care Manager Story Name Role Phone Sushil Stewart MD Primary Care Provider [phone] Encounter Details Date Type Department Care Team (Late st Contact Info) Description 08/08/2024 Lab Requisition [facility] - Main Lab [address] [place] [address] Carmela Thomas MD [address] [phone] Heart failure, unspecified (CMS/HCC V24, CMS/HCC V28) [...] CHEMISTRY METHOD 08/10/2024 12:42 PM EST [facility] Potassium 3.3(L) 3.5 - 5.5 mmol/L LAB CHEMISTRY METHOD 08/10/2024 12:42 PM [facility] Chloride 106 96 - 110 mmol/L LAB CHEMISTRY METHOD 08/10/2024 12:42 PM [facility] CO2 29 21 - 32 mmol/L LAB CHEMISTRY METHOD 08/10/2024 12:42 PM [facility] Anion Gap 9 3 - 11 LAB CHEMISTRY METHOD 08/10/2024 12:42 PM [facility] Glucose 94 70 - 100 mg/dL LAB CHEMISTRY METHOD 08/10/2024 12:42 PM [facility] BUN 18 5 - 25 mg/dL LAB CHEMISTRY METHOD 08/10/2024 12:42 PM [facility] Creatinine 0.62 0.50 - 1.10 mg/dL LAB CHEMISTRY METHOD 08/10/2024 12:42 PM [facility] eGFR 95 >=60 mL/min/1. 73m2 LAB CHEMISTRY METHOD 08/10/2024 12:42 PM [facility] Comment:Calculation based on the Chronic Kidney Disease Epidemiology Collaboration (CKD-EPI) equation refit without adjustment for race. BUN/Creatinine Ratio 29.0 LAB CHEMISTRY METHOD 08/10/2024 12:42 PM [facility] Calcium 9.2 8.5 - 10.5 mg/dL LAB CHEMISTRY METHOD 08/10/2024 12:42 PM [facility] AST (SGOT) 38 10 - 42 unit/L LAB CHEMISTRY METHOD 08/10/2024 12:42 PM [facility] ALT (SGPT) 68(H) 10 - 60 unit/L LAB CHEMISTRY METHOD 08/10/2024 12:42 PM [facility] Alkaline Phosphatase 145(H) 42 - 121 unit/L LAB CHEMISTRY METHOD 08/10/2024 12:42 PM [facility] Total Protein 5.8(L) 6.0 - 8.0 g/dL LAB CHEMISTRY METHOD 08/10/2024 12:42 PM EST [facility] Albumin 2.7(L) 3.2 - 5.0 g/dL LAB CHEMISTRY METHOD 08/10/2024 12:42 PM [facility] Total Bilirubin 0.3 0.0 - 1.4 mg/dL LAB CHEMISTRY METHOD 08/10/2024 12:42 PM [facility] Blood Venous blood specimen / Unknown Venipuncture / Unknown 08/10/2024 8:28 AM EST 08/10/2024 11:20 AM EST us Carmela Thomas MD LAB BLOOD ORDERABLES Fin al Result [facility] [address] [place] [address], * (ABNORMAL) Complete blood count (08/10/2024 8:28 AM EST) WBC 10.7 4.8 - 10.8 K/mcL LAB HEMETOLOGY METHOD 08/10/2024 1:20 PM [facility] RBC 3.10(L) 3.80 - 4.80 M/mcL LAB HEMETOLOGY METHOD 08/10/2024 1:20 PM [facility] Hemoglobin 9.3(L) 11.5 - 16.0 g/dL LAB HEMETOLOGY METHOD 08/10/2024 1:20 PM [facility] Hematocrit 29.3(L) 35.0 - 47.0 % LAB HEMETOLOGY METHOD 08/10/2024 1:20 PM [facility] MCV 95.8 79.0 - 98.0 FL LAB HEMETOLOGY METHOD 08/10/2024 1:20 PM [facility] MCH 30.4 27.0 - 32.0 pcg LAB HEMETOLOGY METHOD 08/10/2024 1:20 PM EST [facility] MCHC 31.7(L) 32.0 - 37.0 g/dL LAB HEMETOLOGY METHOD 08/10/2024 1:20 PM [facility] RDW 14.2 11.0 - 15.0 % LAB HEMETOLOGY METHOD 08/10/2024 1:20 PM [facility] Platelets 280 130 - 400 K/mcL LAB HEMETOLOGY METHOD 08/10/2024 1:20 PM [facility] MPV 10.2 7.0 - 11.0 FL LAB HEMETOLOGY METHOD 08/10/2024 1:20 PM [facility] NRBC 0.0 <1.0 % LAB HEMETOLOGY METHOD 08/10/2024 1:20 PM [facility] NRBC Absolute 0.00 <0.10 K/mcL LAB HEMETOLOGY METHOD 08/10/2024 1:20 PM [facility] Blood Venous blood specimen / Unknown Venipuncture / Unknown 08/10/2024 8:28 AM EST 08/10/2024 11:21 AM EST us Carmela Thomas MD LAB BLOOD ORDERABLES Fin al Result [facility] [address] [place] [address], documented in this encounter Visit Diagnoses Diagnosis Heart failure, unspecified (CMS/HCC V24, CMS/HCC V28) Heart failure, unspecified documented in this encounter Care Teams Manager Story Relationship Specialty Start Date End Date Sushil Stewart MD [address] [place] [address] [address] [place], [place] PCP - General Internal Medicine 10/14/17 documented as of this encounter
--- OUTSIDE RECORDS SUMMARY | 2025-05-17 18:36 | XMS_ITS | Clinical Summary ---
Author Organization [address] [facility] Address [address] [place] [address] Phone Care Team Providers Care Covering Machine Operator Helper Name Role Phone Sushil Stewart MD Primary Care Provider [phone] Surgical History Surgery Date Site/Laterality Comments BACK SURGERY PROCEDURE: HISTORICAL BACK SURGERY; COMMENT: x 3 OTHER SURGICAL HISTORY PROCEDURE: HISTORY OTHER; COMMENT: sinus surgery HYSTERECTOMY PROCEDURE: HISTORICAL HYSTERECTOMY CHOLECYSTECTOMY PROCEDURE: HISTORICAL CHOLECYSTECTOMY ANGIOPLASTY PROCEDURE: HISTORICAL ANGIOPLASTY W/STENT OTHER SURGICAL HISTORY 11/03/2021 PROCEDURE: SC ARTHRD ANT INTERBODY MIN DSC CRV BELOW C2; COMMENT: C5-6 ACDF, Dr. Doss Medical History Medical History Date Comments COPD (chronic obstructive pu lmonary disease) ([facility] V24, [facility] V28) 04/11/2018 DX:COPD (chronic o bstructive pulmonary disease) ([facility]) GERD (gastroesophageal reflu x disease) 04/11/2018 [...] METHOD 08/17/2024 2:03 PM [facility] Potassium 3.7 3.5 - 5.5 [...] ORDERABLES Fin al Result [facility] [address] [place] [address], from Last 3 Months or Most Recently Relevant to Health Maintenance Insurance MEDICARE Care Teams Covering Machine Operator Helper Relationship Specialty Start Date End Date Sushil Stewart MD [address] [place] [address] Rd [address] [place], [place] PCP - General Internal Medicine 10/14/17
--- OUTSIDE RECORDS SUMMARY | 2025-05-17 18:36 | XMS_ITS | Encounter Summary ---
Author Organization [facility] Address [address] [place] [address] Care Team Providers Care Reinforcing Steel Machine Operator Name Role Phone Sushil Stewart MD Primary Care Provider [phone] Encounter Details Date Type Department Care Team (Late st Contact Info) Description 08/16/2024 Lab Requisition [facility] - Main Lab [address] [place] [address] Carmela Thomas MD [address] [phone] Heart failure, unspecified (CMS/HCC V24, CMS/HCC V28) [...] CHEMISTRY METHOD 08/17/2024 2:03 PM EST [facility] Potassium 3.7 3.5 - [...] Result [facility] [address] [place] [address], * (ABNORMAL) Complete blood count (08/17/2024 9:34 [...] LAB HEMETOLOGY METHOD 08/17/2024 1:30 PM EST [facility] MCHC 31.1(L) 32.0 - [...] ORDERABLES Fin al Result Performing Organization Address City/State/[facility] Co de Phone Number [facility] [address] [place] [address], documented in this encounter Visit Diagnoses Diagnosis Heart failure, unspecified (CMS/HCC V24, CMS/HCC V28) Heart failure, unspecified documented in this encounter Care Teams Reinforcing Steel Machine Operator Relationship Specialty Start Date End Date Sushil Stewart MD [address] [place] [address] [address] [place], [place] PCP - General Internal Medicine 10/14/17 documented as of this encounter
--- OUTSIDE RECORDS SUMMARY | 2025-05-17 18:36 | XMS_ITS | Encounter Summary ---
Author Organization [facility] Address [address] [place] [address] Care Team Providers Care Civil Rights Attorney Name Role Phone Sushil Stewart MD Primary Care Provider [phone] Encounter Details Date Type Department Care Team (Late st Contact Info) Description 08/01/2024 Lab Requisition [facility] - Main Lab [address] [place] [address] Carmela Thomas MD [address] [phone] Heart failure, unspecified (CMS/HCC V24, CMS/HCC V28) [...] CHEMISTRY METHOD 08/03/2024 11:51 AM EST [facility] Potassium 3.2(L) 3.5 - 5.5 mmol/L LAB CHEMISTRY METHOD 08/03/2024 11:51 AM [facility] Chloride 101 96 - 110 mmol/L LAB CHEMISTRY METHOD 08/03/2024 11:51 AM [facility] CO2 33(H) 21 - 32 mmol/L LAB CHEMISTRY METHOD 08/03/2024 11:51 AM [facility] Anion Gap 6 3 - 11 LAB CHEMISTRY METHOD 08/03/2024 11:51 AM [facility] Glucose 87 70 - 100 mg/dL LAB CHEMISTRY METHOD 08/03/2024 11:51 AM [facility] BUN 16 5 - 25 mg/dL LAB CHEMISTRY METHOD 08/03/2024 11:51 AM [facility] Creatinine 0.62 0.50 - 1.10 mg/dL LAB CHEMISTRY METHOD 08/03/2024 11:51 AM [facility] eGFR 95 >=60 mL/min/1. 73m2 LAB CHEMISTRY METHOD 08/03/2024 11:51 AM [facility] Comment:Calculation based on the Chronic Kidney Disease Epidemiology Collaboration (CKD-EPI) equation refit without adjustment for race. BUN/Creatinine Ratio 25.8 LAB CHEMISTRY METHOD 08/03/2024 11:51 AM [facility] Calcium 9.4 8.5 - 10.5 mg/dL LAB CHEMISTRY METHOD 08/03/2024 11:51 AM [facility] AST (SGOT) 37 10 - 42 unit/L LAB CHEMISTRY METHOD 08/03/2024 11:51 AM [facility] ALT (SGPT) 63(H) 10 - 60 unit/L LAB CHEMISTRY METHOD 08/03/2024 11:51 AM [facility] Alkaline Phosphatase 193(H) 42 - 121 unit/L LAB CHEMISTRY METHOD 08/03/2024 11:51 AM [facility] Total Protein 5.9(L) 6.0 - 8.0 g/dL LAB CHEMISTRY METHOD 08/03/2024 11:51 AM EST [facility] Albumin 3.0(L) 3.2 - 5.0 g/dL LAB CHEMISTRY METHOD 08/03/2024 11:51 AM [facility] Total Bilirubin 0.3 0.0 - 1.4 mg/dL LAB CHEMISTRY METHOD 08/03/2024 11:51 AM [facility] Blood Venous blood specimen / Unknown Venipuncture / Unknown 08/03/2024 7:22 AM EST 08/03/2024 10:51 AM EST us Carmela Thomas MD LAB BLOOD ORDERABLES Fin al Result [facility] [address] [place] [address], * (ABNORMAL) Complete blood count (08/03/2024 7:22 AM EST) WBC 11.0(H) 4.8 - 10.8 K/mcL LAB HEMETOLOGY METHOD 08/03/2024 11:15 AM [facility] RBC 3.60(L) 3.80 - 4.80 M/mcL LAB HEMETOLOGY METHOD 08/03/2024 11:15 AM [facility] Hemoglobin 10.9(L) 11.5 - 16.0 g/dL LAB HEMETOLOGY METHOD 08/03/2024 11:15 AM [facility] Hematocrit 33.8(L) 35.0 - 47.0 % LAB HEMETOLOGY METHOD 08/03/2024 11:15 AM [facility] MCV 94.9 79.0 - 98.0 FL LAB HEMETOLOGY METHOD 08/03/2024 11:15 AM [facility] MCH 30.6 27.0 - 32.0 pcg LAB HEMETOLOGY METHOD 08/03/2024 11:15 AM EST [facility] MCHC 32.2 32.0 - 37.0 g/dL LAB HEMETOLOGY METHOD 08/03/2024 11:15 AM [facility] RDW 13.5 11.0 - 15.0 % LAB HEMETOLOGY METHOD 08/03/2024 11:15 AM [facility] Platelets 347 130 - 400 K/mcL LAB HEMETOLOGY METHOD 08/03/2024 11:15 AM [facility] MPV 10.4 7.0 - 11.0 FL LAB HEMETOLOGY METHOD 08/03/2024 11:15 AM [facility] NRBC 0.0 <1.0 % LAB HEMETOLOGY METHOD 08/03/2024 11:15 AM [facility] NRBC Absolute 0.00 <0.10 K/mcL LAB HEMETOLOGY METHOD 08/03/2024 11:15 AM [facility] Blood Venous blood specimen / Unknown Venipuncture / Unknown 08/03/2024 7:22 AM EST 08/03/2024 10:51 AM EST us Carmela Thomas MD LAB BLOOD ORDERABLES Fin al Result [facility] [address] [place] [address], documented in this encounter Visit Diagnoses Diagnosis Heart failure, unspecified (CMS/HCC V24, CMS/HCC V28) Heart failure, unspecified documented in this encounter Care Teams Civil Rights Attorney Relationship Specialty Start Date End Date Sushil Stewart MD [address] [place] [address] [address] [place], [place] PCP - General Internal Medicine 10/14/17 documented as of this encounter
--- OUTSIDE RECORDS SUMMARY | 2025-05-17 18:36 | XMS_ITS | Encounter Summary ---
Author Organization [facility] Address [address] [place] [address] Care Team Providers Care Roofer Applicator Name Role Phone Sushil Stewart MD Primary Care Provider Encounter Details Date Type Department Care Team (Late st Contact Info) Description 08/23/2024 Lab Requisition [facility] - Main Lab [address] [facility] [place] [address] Carmela Thomas MD [address] [address] Heart failure, unspecified (CMS/HCC V24, CMS/HCC V28) [...] unspecified documented in this encounter Care Teams Roofer Applicator Relationship Specialty Start Date End Date Sushil Stewart MD [address] [place], [place] PCP - General Internal Medicine 10/14/17 documented as of this encounter
== END 2025-05-17 16:41 | disposition home or self-care (01) ==
PROVIDERS: Visit Provider Physician Assistant Medical
DX: K14.6 Glossodynia (principal); I10 Essential (primary) hypertension

== ENCOUNTER → 2025-05-17 15:56 | Outpatient (BNVA) | payer MEDICARE, SELFPAY | PROVIDERS: Visit Provider Physician Assistant Medical | DX: K14.6 Glossodynia (principal); I10 Essential (primary) hypertension | CPT/HCPCS: 99212 ==